=== PATIENT | male | born 1970 | race Hispanic/Latino ===

== ENCOUNTER 2017-06-15 12:34 | Inpatient (IN) | payer MEDICAID ==
[~2017-06-15] VITALS: Ht 175.3 cm; Wt 90.3 kg
[2017-06-15 13:30] LABS: BASOPHILS % 0.7 % (0.0-1.0); EOSINOPHILS # (AUTO) 0.3 (0.0-0.4); EOSINOPHILS % 7.6 % (0.0-6.0); HEMATOCRIT 37.4 % (38.2-49.6); HEMOGLOBIN 13.1 g/dL (14.0-18.0); LYMPHOCYTES # (AUTO) 0.8 (1.0-3.2); MEAN CORPUSCULAR HEMOGLOBIN 33.2 pg (28-32); MEAN CORPUSCULAR VOLUME 94.9 fL (81-99); MONOCYTES # (AUTO) 0.4 (0.2-0.8); MONOCYTES % 9.5 % (4.4-11.3); NEUTROPHILS # (AUTO) 2.6 (2.1-6.9); NEUTROPHILS % 62.7 % (38.7-80.0); PLATELET COUNT 50 x10e3/uL (140-360); RED BLOOD COUNT 3.94 x10e6/uL (4.3-5.7); RED CELL DISTRIBUTION WIDTH 14.6 % (11.7-14.4)
[2017-06-15 13:54] LABS: ALANINE AMINOTRANSFERASE 18 IU/L (0-55); ALBUMIN 2.1 g/dL (3.5-5.0); ALBUMIN/GLOBULIN RATIO 0.3 (0.8-2.0); ALKALINE PHOSPHATASE 71 IU/L (40-150); AMYLASE 88 U/L (25-125); BLOOD UREA NITROGEN 12 mg/dL (7-26); BUN/CREATININE RATIO 12 (6-25); CALCIUM 8.4 mg/dL (8.4-10.2); CARBON DIOXIDE 29 mmol/L (22-29); CHLORIDE 98 mmol/L (98-107); CREATININE, SERUM 0.98 mg/dL (0.72-1.25); EST GLOMERULAR FILTRATION RATE > 60 ML/MIN (60-); GLUCOSE 121 mg/dL (74-118); LIPASE 51 U/L (8-78); SODIUM 134 mmol/L (136-145)
[2017-06-15] MEDS ORDERED: DONNATAL/LIDOCAINE/MAALOX 30 ML SUSP PO ONE ×3 (14:45→23:30)
[2017-06-15] MEDS ORDERED: ONDANSETRON HCL INJ 2 MG/ML VIAL IV STA (14:48)
--- NOTE | 2017-06-15 14:50 | Diagnostic Imaging Report ---
PROCEDURE: CT ABDOMEN AND PELVIS WITH CONTRAST TECHNIQUE: The abdomen and pelvis were scanned utilizing a multidetector helical scanner from the diaphragm to the lesser trochanter after the IV administration of 100 cc of Isovue 370 and the oral administration of Gastroview. Coronal and sagittal multiplanar reformations were obtained. DLP: 697.6 mGy-cm COMPARISON: None. INDICATIONS: ABDOMINAL PAIN, FEVER FINDINGS: LOWER THORAX: Normal. HEPATOBILIARY: Nodular contour. No focal hepatic lesions with limitations of single phase exam. No biliary ductal dilatation. SPLEEN: Mildly enlarged measuring 13.6 cm in length. PANCREAS: No focal masses or ductal dilatation. ADRENALS: No adrenal nodules. KIDNEYS/URETERS: No hydronephrosis or solid mass lesions. Punctate nonobstructing calculi in the right superior and inferior renal poles. PELVIC ORGANS/BLADDER: Unremarkable. PERITONEUM / RETROPERITONEUM: No free air. Large amount of ascites. LYMPH NODES: No lymphadenopathy. VESSELS: Unremarkable. GI TRACT: No distention or wall thickening. BONES AND SOFT TISSUES: Unremarkable. IMPRESSION: 1. Nodular liver contour compatible with cirrhosis. 2. Large volume ascites. Given fever, consider correlation for SBP. 3. Splenomegaly likely related to portal hypertension. Dictated by: Deandre Gan M.D. on 06/15/2017 at 14:50 Electronically approved by: Deandre Gan M.D. on 06/15/2017 at 14:50
[2017-06-15] MEDS ORDERED: SODIUM CHLORIDE 0.9% 1000ML 1,000 ML IV SCH (15:00)
[2017-06-15] MEDS ORDERED: IOPAMIDOL 370 MG/ML 200 ML INFUS..BTL INJ ONE ×2 (15:01→20:38)
[2017-06-15] MEDS ORDERED: SODIUM CHLORIDE 0.9% 50ML 50 ML ONE ×2 (15:01→20:38)
[2017-06-15] MEDS ORDERED: MORPHINE SULFATE 2 MG/ML SYR IV STA (15:07)
[2017-06-15] MEDS ORDERED: PROMETHAZINE HCL (IM) 25 MG/ML VIAL IV PRN (15:30)
[2017-06-15 15:33] LABS: INR 1.53; PROTHROMBIN TIME 17.3 seconds (11.9-14.5)
[2017-06-15] MEDS ORDERED: PROMETHAZINE 12.5MG/ NACL 0.9% 50 ML IV PRN (15:45)
[2017-06-15] MEDS ORDERED: HYDROMORPHONE 1MG/1ML INJ IV STA (15:47)
[2017-06-15 15:52] LABS: CLARITY,URINE CLOUDY (CLEAR); COLOR,URINE ORANGE (YELLOW); LEUKOCYTE ESTERASE ,URINE NEGATIVE (NEGATIVE)
[2017-06-15 15:53] LABS: BILIRUBIN,URINE 2+ (NEGATIVE); KETONES,URINE TRACE (NEGATIVE); NITRITE,URINE NEGATIVE (NEGATIVE); PROTEIN,URINE DIPSTICK 1+ (NEGATIVE); URINE UROBILINOGEN 8 mg/dL (0.2 - 1)
--- OUTSIDE RECORDS SUMMARY | 2017-06-15 15:56 | XMS REPORT ---
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 Allergies, Adverse Reactions, Alerts This patient has no known allergies or adverse reactions. Medications This patient has no known medications. Results Test Description Test Time Test Comments Text Results Atomic Results Result Comments CT ABDOMEN/PELVIS W [place] [address] Patient Name: JOCELIN CORREA MR #: [id number] : 1970 Age/Sex: 47/M Req #: [id number] Adm Physician: Ordered by: EZ MANDUJANO MD Report #: [id number] Location: ER Room/Bed: Procedure: [id number] CT/CT ABDOMEN/PELVIS W Exam Date: Exam Time: REPORT STATUS: Signed PROCEDURE: CT ABDOMEN AND PELVIS WITH CONTRAST TECHNIQUE: The abdomen and pelvis were scanned utilizing a multidetector helical scanner from the diaphragm to the lesser trochanter after the IV administration of 100 cc of Isovue 370 and the oral administration of Gastroview. Coronal and sagittal multiplanar reformations were obtained. DLP: 697.6 mGy-cm COMPARISON: None. INDICATIONS: ABDOMINAL PAIN, FEVER FINDINGS: LOWER THORAX: Normal. HEPATOBILIARY: Nodular contour. No focal hepatic lesions with limitations of single phase exam. No biliary ductal dilatation. SPLEEN: Mildly enlarged measuring 13.6 cm in length. PANCREAS: No focal masses or ductal dilatation. ADRENALS: No adrenal nodules. KIDNEYS/URETERS: No hydronephrosis or solid mass lesions. Punctate nonobstructing calculi in the right superior and inferior renal poles. PELVIC ORGANS/BLADDER: Unremarkable. PERITONEUM / RETROPERITONEUM: No free air. Large amount of ascites. LYMPH NODES: No lymphadenopathy. VESSELS: Unremarkable. GI TRACT: No distention or wall thickening. BONES AND SOFT TISSUES: Unremarkable. IMPRESSION: 1. Nodular liver contour compatible with cirrhosis. 2. Large volume ascites. Given fever, consider correlation for SBP. 3. Splenomegaly likely related to portal hypertension. Dictated by: Deandre Davis M.D. on 06/15/2017 at 14:50 Electronically approved by: Deandre Davis M.D. on 06/15/2017 at 14:50 Dictated By: DEANDRE DAVIS MD 1450 Transcribed By : MARCO on 06/15/17 1450 COPY TO: EZ MANDUJANO MD
[2017-06-15] MEDS: PIPER-TAZ 3.375 GM 50 ML IV SCH (16:05)
[2017-06-15] MEDS ORDERED: LASIX40 MG PO (16:40)
[2017-06-15] MEDS ORDERED: SPIRONOLACTONE25 MG PO (16:40)
--- NOTE | 2017-06-15 17:09 | Diagnostic Imaging Report ---
PROCEDURE:US GUIDED PARACENTESIS COMPARISON:None. INDICATIONS:Cirrhosis, Ascites FINDINGS: After informed consent was obtained, focused abdominal ultrasound identified a safe entry route into the free ascitic fluid in the right lower quadrant of the abdomen. The overlying skin was prepped and draped in sterile fashion. Lidocaine 1% was used for local anesthesia. Under ultrasound guidance, an 18 gauge needle was advanced into the ascitic fluid. 30 cc of clear straw colored fluid was aspirated. The needle was removed. There was <1cc blood loss and no complications. Samples were sent to the laboratory for analysis. CONCLUSION: Uncomplicated ultrasound-guided diagnostic paracentesis with removal of 30 cc of clear straw colored fluid. Dictated by: Deandre Gan M.D. on 06/15/2017 at 17:10 Electronically approved by: Deandre Gan M.D. on 06/15/2017 at 17:10
[2017-06-15] MEDS: SODIUM CHLORIDE 0.9% 1000ML 1,000 ML IV SCH ×2 (17:18→23:20)
[2017-06-15 17:32] LABS: BODY FLUID APPEARANCE CLOUDY; BODY FLUID COLOR YELLOW; BODY FLUID TYPE PERITONEAL
[2017-06-15 17:33] LABS: RBC,BODY FLUID 1519 cells/uL; WBC,BODY FLUID 163 cells/uL
[2017-06-15 18:21] LABS: LYMPHOCYTES,BODY FLUID 15 %; MONO/MACROPHG,BODY FLUID 64 %; OTHER CELLS,BODY FLUID 10 %
[2017-06-15 18:22] LABS: NEUTROPHILS,BODY FLUID 11 %
[2017-06-15 18:37] VITALS: BP 130/85
[2017-06-15 20:00] VITALS: BP 112/74
[2017-06-15] MEDS: ONDANSETRON HCL INJ 2 MG/ML VIAL IV PRN (20:57)
[2017-06-15] MEDS: MORPHINE SULFATE 2 MG/ML SYR IV PRN (20:57)
[2017-06-15] MEDS ORDERED: PIPER-TAZ 3.375 GM 3.375 GM/100 ML BAG IV SCH (22:00)
[2017-06-15] MEDS ORDERED: MULTIVITAMINS- 12 INJECTION 10 ML, FOLIC ACID MDV 5 MG, THIAMINE HCL INJ 100 MG in SODI... IV SCH (23:30)
[2017-06-15] MEDS ORDERED: PANTOPRAZOLE 40 MG 10ML VIAL IV STA (23:40)
[2017-06-15] MEDS ORDERED: MULTIVITAMINS- 12 INJECTION 10 ML in SODIUM CHLORIDE 0.9% 1000ML 1,000 ML IV SCH (23:45)
[2017-06-15] MEDS ORDERED: FOLIC ACID 5 MG/ML VIAL IV SCH (23:45)
[2017-06-15] MEDS ORDERED: THIAMINE HCL INJ 100 MG/ML 2ML VIAL IV SCH (23:45)
[2017-06-15] MEDS ORDERED: SODIUM CHLORIDE 0.9% 1000ML 1,000 ML IV ONE (23:45)
[2017-06-16] VITALS: BP 123/72
[2017-06-16] MEDS ORDERED: FUROSEMIDE 40 MG TAB PO ONE
[2017-06-16] MEDS ORDERED: BELLADONNA ALK/PHENOBARBITAL 5 ML UDC ONE (00:13)
[2017-06-16] MEDS ORDERED: LIDOCAINE VISC 2% SOLN 15 ML UDC ONE (00:13)
[2017-06-16] MEDS ORDERED: MAGNESIUM/ALUMINUM/SIMETHICONE 30 ML UDC ONE (00:14)
[2017-06-16] MEDS: MULTIVITAMINS- 12 INJECTION 10 ML, FOLIC ACID MDV 1 MG, THIAMINE HCL INJ 100 MG in SODI... IV SCH (00:58)
[2017-06-16] MEDS: PIPER-TAZ 3.375 GM 50 ML IV SCH ×3 (01:30→16:07)
[2017-06-16] MEDS: ONDANSETRON HCL INJ 2 MG/ML VIAL IV PRN ×3 (01:30→21:28)
[2017-06-16 04:00] VITALS: BP 115/71
[2017-06-16] MEDS: MORPHINE SULFATE 2 MG/ML SYR IV PRN ×2 (05:20→21:29)
[2017-06-16 06:47] LABS: BASOPHILS % 0.7 % (0.0-1.0); EOSINOPHILS # (AUTO) 0.4 (0.0-0.4); EOSINOPHILS % 8.7 % (0.0-6.0); HEMATOCRIT 33.8 % (38.2-49.6); HEMOGLOBIN 11.5 g/dL (14.0-18.0); LYMPHOCYTES # (AUTO) 0.9 (1.0-3.2); LYMPHOCYTES % 21.7 % (18.0-39.1); MEAN CORPUSCULAR HEMOGLOBIN 33.2 pg (28-32); MEAN CORPUSCULAR VOLUME 97.7 fL (81-99); MONOCYTES # (AUTO) 0.4 (0.2-0.8); MONOCYTES % 10.1 % (4.4-11.3); NEUTROPHILS # (AUTO) 2.4 (2.1-6.9); NEUTROPHILS % 58.6 % (38.7-80.0); RED BLOOD COUNT 3.46 x10e6/uL (4.3-5.7); RED CELL DISTRIBUTION WIDTH 15.1 % (11.7-14.4)
[2017-06-16 07:05] LABS: PLATELET COUNT 47 x10e3/uL (140-360)
[2017-06-16 07:16] LABS: ALANINE AMINOTRANSFERASE 20 IU/L (0-55); ALBUMIN 1.9 g/dL (3.5-5.0); ALBUMIN/GLOBULIN RATIO 0.3 (0.8-2.0); ALKALINE PHOSPHATASE 61 IU/L (40-150); AMYLASE 65 U/L (25-125); ANION GAP 8.2 mmol/L (8-16); BLOOD UREA NITROGEN 12 mg/dL (7-26); BUN/CREATININE RATIO 12 (6-25); CALCIUM 7.7 mg/dL (8.4-10.2); CARBON DIOXIDE 26 mmol/L (22-29); CHLORIDE 98 mmol/L (98-107); EST GLOMERULAR FILTRATION RATE > 60 ML/MIN (60-); GLUCOSE 98 mg/dL (74-118); LIPASE 16 U/L (8-78); POTASSIUM 3.2 mmol/L (3.5-5.1); SODIUM 129 mmol/L (136-145)
[2017-06-16 07:36] LABS: FERRITIN 220.6 ng/mL (21.81-274.66)
[2017-06-16 07:46] LABS: FOLATE 10.3 ng/mL (7.0-15.4)
[2017-06-16 08:00] VITALS: BP 118/64
[2017-06-16 08:10] VITALS: BP 118/64
[2017-06-16] MEDS ORDERED: SODIUM CHLORIDE 0.9% 250ML 250 ML ONE (08:45)
[2017-06-16] MEDS: SPIRONOLACTONE 25 MG TAB PO SCH (08:49)
[2017-06-16] MEDS ORDERED: POTASSIUM CHLORIDE 20 MEQ TAB CR PO STA (09:19)
[2017-06-16 09:30] LABS: EOSINOPHILS % (MANUAL) 8 % (0-7); LYMPHOCYTES % (MANUAL) 14 % (19-48); METAMYELOCYTES % (MANUAL) 2 % (0-0); MONOCYTES % (MANUAL) 2 % (3.4-9.0); NEUTROPHILS % (MANUAL) 73 % (40-74); PLATELET ESTIMATE SLIGHTLY DECREASED; PLATELET MORPHOLOGY COMMENT NORMAL
[2017-06-16 09:31] LABS: RBC MORPHOLOGY COMMENT NORMAL
[2017-06-16 11:59] VITALS: BP 97/54
[2017-06-16] MEDS: PANTOPRAZOLE 40 MG 10ML VIAL IV SCH ×3 (12:35→23:51)
[2017-06-16] MEDS: SODIUM CHLORIDE 0.9% 1000ML 1,000 ML IV SCH (16:07)
[2017-06-16 20:04] VITALS: BP 115/56
[2017-06-17] VITALS (9 sets, daily range): BP systolic 107–124; BP diastolic 61–70
[2017-06-17] MEDS: SODIUM CHLORIDE 0.9% 1000ML 1,000 ML IV SCH
[2017-06-17] MEDS: MULTIVITAMINS- 12 INJECTION 10 ML, FOLIC ACID MDV 1 MG, THIAMINE HCL INJ 100 MG in SODI... IV SCH (00:50)
[2017-06-17] MEDS: ONDANSETRON HCL INJ 2 MG/ML VIAL IV PRN ×4 (04:51→21:28)
[2017-06-17] MEDS: MORPHINE SULFATE 2 MG/ML SYR IV PRN ×4 (05:02→21:30)
[2017-06-17] MEDS ORDERED: DONNATAL/LIDOCAINE/MAALOX 30 ML SUSP PO STA (05:29)
[2017-06-17] MEDS ORDERED: BELLADONNA ALK/PHENOBARBITAL 5 ML UDC PO ONE (05:53)
[2017-06-17] MEDS ORDERED: MAGNESIUM/ALUMINUM/SIMETHICONE 30 ML UDC PO ONE (05:54)
[2017-06-17] MEDS ORDERED: LIDOCAINE VISC 2% SOLN 100ML BLT PO ONE (05:54)
[2017-06-17] MEDS ORDERED: DONNATAL/LIDOCAINE/MAALOX 30 ML SUSP PO ONE (05:55)
[2017-06-17] MEDS: MULTIVITAMINS- 12 INJECTION 10 ML, FOLIC ACID MDV 5 MG, THIAMINE HCL INJ 100 MG in SODI... IV SCH ×2 (06:00→16:59)
[2017-06-17] MEDS: PIPER-TAZ 3.375 GM 50 ML IV SCH ×3 (07:57→16:41)
[2017-06-17] MEDS: SPIRONOLACTONE 25 MG TAB PO SCH (08:57)
[2017-06-17] MEDS ORDERED: TYLENOL WITH C1 EACH PO (11:40)
[2017-06-17] MEDS: PANTOPRAZOLE 40 MG 10ML VIAL IV SCH (12:18)
[2017-06-18] MEDS: PANTOPRAZOLE 40 MG 10ML VIAL IV SCH ×2 (00:14→12:35)
[2017-06-18 01:02] VITALS: BP 100/63
[2017-06-18] MEDS: ONDANSETRON HCL INJ 2 MG/ML VIAL IV PRN ×4 (03:28→21:11)
[2017-06-18] MEDS: MORPHINE SULFATE 2 MG/ML SYR IV PRN ×4 (03:30→21:11)
[2017-06-18] MEDS: MULTIVITAMINS- 12 INJECTION 10 ML, FOLIC ACID MDV 5 MG, THIAMINE HCL INJ 100 MG in SODI... IV SCH ×2 (05:28→18:03)
[2017-06-18 05:39] VITALS: BP 104/55
[2017-06-18 07:56] LABS: BASOPHILS % 0.7 % (0.0-1.0); EOSINOPHILS # (AUTO) 0.2 (0.0-0.4); EOSINOPHILS % 7.5 % (0.0-6.0); HEMATOCRIT 27.1 % (38.2-49.6); HEMOGLOBIN 9.3 g/dL (14.0-18.0); LYMPHOCYTES % 33.1 % (18.0-39.1); MEAN CORPUSCULAR HEMOGLOBIN 33.1 pg (28-32); MEAN CORPUSCULAR HGB CONC 34.3 g/dL (31-35); MEAN CORPUSCULAR VOLUME 96.4 fL (81-99); MONOCYTES # (AUTO) 0.4 (0.2-0.8); NEUTROPHILS # (AUTO) 1.3 (2.1-6.9); RED BLOOD COUNT 2.81 x10e6/uL (4.3-5.7); RED CELL DISTRIBUTION WIDTH 14.8 % (11.7-14.4)
[2017-06-18 08:04] LABS: PLATELET COUNT 37 x10e3/uL (140-360)
[2017-06-18 08:05] VITALS: BP 113/65
[2017-06-18 09:06] LABS: ALANINE AMINOTRANSFERASE 15 IU/L (0-55); ALBUMIN 1.7 g/dL (3.5-5.0); ALBUMIN/GLOBULIN RATIO 0.4 (0.8-2.0); ALKALINE PHOSPHATASE 51 IU/L (40-150); ANION GAP 7.7 mmol/L (8-16); BLOOD UREA NITROGEN 9 mg/dL (7-26); BUN/CREATININE RATIO 11 (6-25); CALCIUM 7.3 mg/dL (8.4-10.2); CARBON DIOXIDE 24 mmol/L (22-29); CHLORIDE 102 mmol/L (98-107); CREATININE, SERUM 0.85 mg/dL (0.72-1.25); EST GLOMERULAR FILTRATION RATE > 60 ML/MIN (60-); GLUCOSE 112 mg/dL (74-118); POTASSIUM 3.7 mmol/L (3.5-5.1); SODIUM 130 mmol/L (136-145)
[2017-06-18] MEDS: SPIRONOLACTONE 25 MG TAB PO SCH (09:15)
[2017-06-18 12:17] VITALS: BP 119/65
[2017-06-18 16:00] VITALS: BP 122/71
[2017-06-18 20:00] VITALS: BP 117/64
[2017-06-18] MEDS: FUROSEMIDE 40 MG TAB PO SCH (21:11)
[2017-06-19] VITALS (8 sets, daily range): BP systolic 92–125; BP diastolic 53–80
[2017-06-19] MEDS: PANTOPRAZOLE 40 MG 10ML VIAL IV SCH ×3 (00:16→23:37)
[2017-06-19] MEDS: ONDANSETRON HCL INJ 2 MG/ML VIAL IV PRN (03:45)
[2017-06-19] MEDS: MORPHINE SULFATE 2 MG/ML SYR IV PRN ×4 (03:49→22:24)
[2017-06-19] MEDS: FUROSEMIDE 40 MG TAB PO SCH ×4 (05:34→18:00)
[2017-06-19] MEDS ORDERED: FOLIC ACID IV SCH (06:00)
[2017-06-19] MEDS ORDERED: [UNRECOGNIZED DRUG - OTHER] IV SCH (06:00)
[2017-06-19] MEDS ORDERED: MULTIVITAMINS IV SCH (06:00)
[2017-06-19] MEDS ORDERED: THIAMINE HCL IV SCH (06:00)
[2017-06-19 07:28] LABS: BASOPHILS % 0.4 % (0.0-1.0); EOSINOPHILS # (AUTO) 0.2 (0.0-0.4); EOSINOPHILS % 7.9 % (0.0-6.0); HEMATOCRIT 27.3 % (38.2-49.6); HEMOGLOBIN 9.3 g/dL (14.0-18.0); LYMPHOCYTES # (AUTO) 0.7 (1.0-3.2); MEAN CORPUSCULAR HEMOGLOBIN 33.5 pg (28-32); MEAN CORPUSCULAR HGB CONC 34.1 g/dL (31-35); MEAN CORPUSCULAR VOLUME 98.2 fL (81-99); MONOCYTES # (AUTO) 0.4 (0.2-0.8); MONOCYTES % 16.3 % (4.4-11.3); NEUTROPHILS # (AUTO) 1.2 (2.1-6.9); RED BLOOD COUNT 2.78 x10e6/uL (4.3-5.7); RED CELL DISTRIBUTION WIDTH 15.1 % (11.7-14.4)
[2017-06-19 07:48] LABS: PLATELET COUNT 46 x10e3/uL (140-360)
[2017-06-19 08:00] LABS: ALANINE AMINOTRANSFERASE 17 IU/L (0-55); ALBUMIN 1.6 g/dL (3.5-5.0); ALBUMIN/GLOBULIN RATIO 0.3 (0.8-2.0); ALKALINE PHOSPHATASE 47 IU/L (40-150); ANION GAP 5.5 mmol/L (8-16); BLOOD UREA NITROGEN 8 mg/dL (7-26); BUN/CREATININE RATIO 9 (6-25); CALCIUM 7.3 mg/dL (8.4-10.2); CARBON DIOXIDE 27 mmol/L (22-29); CHLORIDE 102 mmol/L (98-107); CREATININE, SERUM 0.85 mg/dL (0.72-1.25); EST GLOMERULAR FILTRATION RATE > 60 ML/MIN (60-); GLUCOSE 121 mg/dL (74-118); POTASSIUM 3.5 mmol/L (3.5-5.1); SODIUM 131 mmol/L (136-145)
[2017-06-19 08:29] LABS: INR 1.66; PROTHROMBIN TIME 18.4 seconds (11.9-14.5)
[2017-06-19 08:30] LABS: PARTIAL THROMBOPLASTIN TIME 37.5 seconds (23.8-35.5)
[2017-06-19] MEDS ORDERED: PHYTONADIONE 5 MG TAB PO SCH (09:00)
[2017-06-19] MEDS: SPIRONOLACTONE 25 MG TAB PO SCH (09:55)
[2017-06-19 10:16] LABS: HYPOCHROMASIA MODERATE; PLATELET ESTIMATE SLIGHTLY DECREASED; PLATELET MORPHOLOGY COMMENT FEW GIANT; POIKILOCYTOSIS SLIGHT
[2017-06-19 10:17] LABS: ANISOCYTOSIS SLIG
[2017-06-19 10:18] LABS: RBC MORPHOLOGY COMMENT NORMAL
[2017-06-19] MEDS: PHYTONADIONE 10 MG/ML AMP PO SCH (11:51)
[2017-06-20] VITALS (7 sets, daily range): BP systolic 90–119; BP diastolic 50–66
[2017-06-20] MEDS ORDERED: FUROSEMIDE INJ 10 MG/ML 4 ML VIAL IV ONE ×2 (02:00→06:00)
[2017-06-20] MEDS: MORPHINE SULFATE 2 MG/ML SYR IV PRN ×2 (05:59→12:18)
[2017-06-20] MEDS: PHYTONADIONE 10 MG/ML AMP PO SCH (10:08)
[2017-06-20] MEDS: SPIRONOLACTONE 25 MG TAB PO SCH (10:08)
--- NOTE | 2017-06-20 11:20 | Consultation ---
DATE OF CONSULTATION: June 19, 2017 CONSULTATION TO: Dr. Hopper Mr. Austin is a 47-year-old male who has been referred to me for evaluation of pancytopenia. The patient had presented with abdominal pain and swelling of the abdomen. Subsequently he was admitted for further evaluation and treatment. HISTORY OF PAST ILLNESSES: Noncontributory. SOCIAL HISTORY: History of excessive alcohol intake since age 13. REVIEW OF SYSTEMS HEENT: Normal. CARDIAC: Normal. RESPIRATORY: Normal. GI: Cirrhotic liver with ascites. : Normal. MUSCULOSKELETAL: Normal. SKIN AND BREASTS: Normal. NEUROENDOCRINE: Essentially normal. MEDICATIONS: At this time consist of promethazine, thiamine, ondansetron, Protonix, Aldactone, morphine, Lasix, vitamin K. PHYSICAL EXAMINATION GENERAL: A rather moderately built male with multiple tattoos. No palpable adenopathy. HEART: Within normal limits. LUNGS: Clear. ABDOMEN: Obese. Ascites felt. RECTAL: Exam deferred. CENTRAL NERVOUS SYSTEM: Essentially normal. EXTREMITIES: Again, multiple tattoos revealed. LABS: The hepatitis profile has been done, however, not available at this time for review. Hemoglobin of 9.3, hematocrit 27.3, normal MCV of 98.2, MCHC of 34.1, RDW of 15.1, white count 2520, platelets of 46,000. Retic response is 2.6%. Coagulation profile is essentially abnormal with a slightly high INR of 1.66. IMAGING: Consists of a CAT scan of the abdomen, which shows the patient to have a nodular liver contour, large-volume ascites, splenomegaly. IMPRESSION 1. Anemia. 2. Neutropenia. 3. Thrombocytopenia. 4. High liver function tests. 5. High protein of 8.4. 6. Hypoalbuminemia of 2.1. 7. 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 8. Cirrhosis of liver. 9. Ascites. 10. Splenomegaly. 11. Portal hypertension. 12. Hypersplenism. PLAN, COMMENTS AND SUGGESTIONS: Suggest Lasix and Aldactone. Ammonia level. Social service consult for him to obtain a [place] card so that he could be followed by senior living sales counselor and wooden shade hardware installer at [facility] as he has no insurance. Thank you very much for allowing me to participate in the management of this patient during this hospitalization. Job#: [id number] cc:ROME HOPPER MD
--- NOTE | 2017-06-20 11:36 | Diagnostic Imaging Report ---
EXAM: Right Upper Quadrant Ultrasound INDICATION: Abdominal pain. \S\CIRRHOSIS OF LIVER \S\[id number] \S\1024 \S\Y COMPARISON: CT dated 06/15/2017 TECHNIQUE: Transverse and longitudinal images of the right upper abdomen were obtained. FINDINGS: Liver: Size: 10 cm in the right midclavicular line, normal Appearance: Normal echogenicity, nodular contour Mass: No focal masses Gallbladder: Stones/Sludge: None Wall: 0.7 cm Appearance: No pericholecystic fluid or hydrops. Sonographic Thomas's Sign: Negative Bile Ducts: Intrahepatic Ducts: No dilatation Extrahepatic Ducts: Common bile duct measures 0.3 cm, no dilatation Pancreas: Limited visualized pancreas is unremarkable. Right Kidney: Size: 12.5 cm Echogenicity: Mildly increased Parenchymal thickness: Normal Collecting system: No hydronephrosis Stones: None Cyst/Mass: None Vessels: Aorta: Not well visualized. Inferior Vena Cava: Visualized portions are normal Main Portal Vein: 1.1 cm, normal size with hepatopetal flow. Free Fluid: Moderate volume abdominal ascites. IMPRESSION: 1. Cirrhotic liver morphology. No focal mass. 2. Gallbladder wall thickening which is nonspecific in the setting of cirrhosis/ascites. No cholelithiasis. 3. Moderate volume abdominal ascites. 4. Mildly increased right renal cortical echogenicity, suggestive of medical renal disease. Signed by: Dr. Korey Velarde MD on 06/20/2017 11:33 AM
[2017-06-20] MEDS: PANTOPRAZOLE 40 MG 10ML VIAL IV SCH (12:18)
== END 2017-06-20 17:14 | disposition home or self-care (01) | DRG 854 ==
LOC: ER 12:47 → EDBD 12:47 → ERHOLD 15:53 → MED/SURG 17:24
PROVIDERS: ADMIT Internal Medicine; ATTEND Internal Medicine
PROC: 0W9G3ZX Drainage of Peritoneal Cavity, Percutaneous Approach, Diagnostic (ICD-10-PCS; principal; 2017-06-15)
DX: A41.9 Sepsis, unspecified organism (principal); D61.818 Other pancytopenia; D69.3 Immune thrombocytopenic purpura; D70.9 Neutropenia, unspecified; K70.31 Alcoholic cirrhosis of liver with ascites; E88.09 Other disorders of plasma-protein metabolism, not elsewhere classified; R16.1 Splenomegaly, not elsewhere classified; K70.11 Alcoholic hepatitis with ascites; F10.20 Alcohol dependence, uncomplicated; R77.1 Abnormality of globulin; D73.1 Hypersplenism
CPT/HCPCS: 36415; 49083; 74177; 74470; 76705; 80053; 80076; 81001; 82105; 82140; 82150; 82270; 82607; 82728; 82746; 83540; 83690; 84132; 84466; 85025; 85045; 85610; 85730; 87040; 87070; 87086; 87205; 88112; 88305; 89051; 96367; 99284; J1170; J1940; J2270; J2405; J2543; J3411; J3430; J7030; J7050; Q9967

== ENCOUNTER 2019-08-14 06:12 | Inpatient (IN) | payer MEDICARE, OTHER ==
[~2019-08-14] VITALS: Ht 175.3 cm; Wt 94.1 kg
[~2019-08-14 06:12] MED LIST: LASIX40 MG PO; SPIRONOLACTONE25 MG PO; TYLENOL WITH C1 EACH PO
--- OUTSIDE RECORDS SUMMARY | 2019-08-14 06:16 | XMS REPORT ---
Author Author Admin, Raymundo Barry Organization Unknown Address Unknown Phone Unavailable PROBLEMS Condition Status Date Provider Notes Chronic pain active Vane Ana Laura Nausea active Vane Ana Laura Hepatitis C, chronic active Vane Ana Laura Liver cirrhosis active Vane Ana Laura ENCOUNTERS Date Type Provider Location Encounter Diagn osis - Ambulatory Encounter LDC Care Coor dination Desktop Keli Phillips [facility] Contact Center UNK - Ambulatory Encounter Vane Ana Laura [place] Ana Laura [facility] UNK - Ambulatory Encounter Vane Ivano va Vane Ana Laura Deborath Carpio [facility] Liver cirrhosisHepatitis C, chronicNauseaChronic pain VITAL SIGNS No Information Available Allergies No Known Allergy Information REASON FOR REFERRAL No Information Available RESULTS No Information Available HISTORY OF IMMUNIZATIONS No Information Available HISTORY OF MEDICATION USE Medication Instructions Dates Provider Comments ZOFRAN 4 MG ORAL TABLET take 1 tablet 3 times daily for nausea p rn Vane Ana Laura SOCIAL HISTORY Date Observation Value Provider time of call 02/27/2019 10:07 AM Keli Phillips " is there any chance that you could be ? No Mir Carpio " Occupation #1 Disabled [employer] " patient considered to be homeless No Mir Carpio " drug use, illicit Never Mir Aldridge dos " alcohol use Previously [employer] " smoking status current every day smoker Deborat h Carpio " passive cigarette smoke exposure No Debrich Carpio FUNCTIONAL STATUS No Information Available MENTAL STATUS Date Observation Value Provider assessment of judgment and insight E&M intact Vane Ana Laura " assessment of mood and affect E&M no depression, anxiety, or agitation Vane Ana Laura " Generalized Anxiety Disorder Questionnaire - Que stion 2 0 Deborath Carpio " Generalized Anxiety Disorder Questionnaire - Que stion 1 0 Deborath Carpio MEDICAL EQUIPMENT No Information Available FAMILY HISTORY No Information Available INSURANCE PROVIDERS No Information Available ADVANCE DIRECTIVES No Information Available TREATMENT PLAN Date Name New Patient Detailed - 68791 HISTORY OF PROCEDURES No Information Available GOALS No Information Available HEALTH CONCERNS No Information Available
--- OUTSIDE RECORDS SUMMARY | 2019-08-14 06:16 | XMS REPORT | Continuity of Care Document ---
Author Author [facility] t Organization [facility] Address [address] [place] [address] Phone Unavailable Care Team Providers Care Family Advocate Name Role Phone NO, PCP PCP Unavailable Puneet Banks Attphys Nabeel Valero Attphys Ab, U Varinder Attphys Eli Delgado Attphys Casi Justice Attphys ROME HOPPER Attphys Unavailable Nabeel Valero Admphys Tamika Guzman Admphys R[place] HOPPER Admphys Unavailable Payers Payer Name Policy Type Policy Number Effective Date Expiration Date S ource Problems Condition Name Condition Details Condition Category Status Onset Date Resolution Date Last Treatment Date Treating Clinician Comments Source ABDOMINAL PAIN ABDO YOLIS PAIN Active 02/26/2019 [facility] Active 2019-02-26 00:00:00 2019-02-26 16:11:00 [facility] ABD PAIN ABD PAIN Active 08/24/2018 [facility] Active 2018-08-24 00:00:00 2018-08-24 21:51:00 [facility] BLOODY STOOL/STOMACH PAIN BLOO DY STOOL/STOMACH PAIN Active 06/01/2018 [facility] Active 2018-06-01 00:00: 00 2018-06-01 10:32:00 [facility] GIB, LIVER CIRRHOSIS, ABD PAIN, PORTAL V GIB, LIVER CIRRHOSIS, ABD PAIN, PORTAL V Active 06/01/2018 [facility] Diagnosis Active 2018-06-01 00:00:00 2018-06-06 16:57:00 [facility] HEADACHE HEAD ACHE Active 04/18/2018 [facility] Active 2018-04-18 00:00:00 2019-07-01 13:22:00 [facility] OTHER OTHE R Active 09/16/2017 [facility] Active 2017-09-16 00:00:00 2017-11-16 10:48:00 [facility] Abdominal pain Abdominal pain Problem Active [facility] Alcoholic cirrhosis of liver with ascites Alcoholic ci rrhosis of liver with ascites Problem Active [facility] Fever Fever Problem Active [facility] Headache Head ache 11/05/2018 [facility] Problem 2018-11-05 16:44:23 [facility] Liver disease, unspecified Tonya er disease, unspecified 11/05/2018 [facility] 2018-11-05 16:44:2 3 [facility] Chest pain, unspecified [place] t pain, unspecified 11/05/2018 [facility] 2018-11-05 16:44:23 [facility] GASTROINTESTINAL HEMORRHAGE, UNSPECIFIED GASTROINTESTINAL HEMORRHAGE, UNSPECIFIED Active [facility] Diagnosis Active 2018-06-06 16:57:00 Memor melyssa Dos [facility] UNSPECIFIED CIRRHOSIS OF LIVER UNSPECIFIED CIRRHOSIS OF LIVER Active [facility] Diagnosis Active 201 11-13-26 16:57:00 [facility] UNSPECIFIED ABDOMINAL PAIN UNS PECIFIED ABDOMINAL PAIN Active [facility] Diagnosis Active 2018-06-06 16:57:0 0 [facility] Encounter for examination and observation following ot her accident Encounter for examination and observation following other accident 04/24/2018 11/05/2018 [facility] 2018-04-24 05:08:12 2018 16:44:23 2018-11-05 16:44:23 [facility] Unspecified abdominal pain Uns pecified abdominal pain 09/16/2017 09/19/2017 [place] Problem 2017-09-16 05:00 :00 2017-09-19 01:50:07 2017-09-19 01:50:[address] [facility] Allergies, Adverse Reactions, Alerts Allergy Name Allergy Type Status Severity Reaction(s) Onset Date Inacti ve Date Treating Clinician Comments Source No Known Allergies DA Active U 2019-01-15 00:00:00 [facility] No Known Allergies DA Active U 2018-05-05 00:00:00 [facility] No Known Allergies DA Active U 2018-04-09 00:00:00 [facility] No Known Allergies DA Active U 2017-12-18 00:00:00 [facility] No Known Allergies DA Active U 2017-08-03 00:00:00 [facility] No Known Allergies DA Active U 2017-06-03 00:00:00 [facility] No Known Medication Allergies No Known Medication Allergies Active [facility] Social History Social Habit Start Date Stop Date Quantity Comments Source Social History 2018-06-02 00:41:01 2018-06-02 00:41:01 [facility] Medications Ordered Medication Name Filled Medication Name Start Date Stop Da te Current Medication? Ordering Clinician Indication Dosage Frequency Signature (SIG) Comments Components Source Saline Flush 0.9% 2019-02-26 17:34:00 No Notes: Same as: BD Posiflush Sterile [facility] Saline Flush 0.9% 2018-08-25 02:09:00 No Notes: (Same as: BD Posiflush) [facility] Rocephin 2018-08-04 10:01:00 No 1 gm, Route: IVPB, Drug form: PDR/INJ, ONCE, Dosing Weight 90.909, kg, Priority: STAT, Start date: 08/04/18 5:01:00 CDT, Stop date: 08/04/18 5:01:00 CDT, ABX Indication: Intra-abdominal Infection [facility] Fentanyl 2018-08-04 06:35:00 No 50 microgram, Route: IVP, ONCE, Dosing Weight 90.909, kg, Priority: STAT, Start date: 08/04/18 1:35:00 CDT, Stop date: 08/04/18 1:35:00 CDT [facility] Zofran 2018-08-04 06:34:00 No 4 mg, Route: IVP, Drug form: INJ, ONCE, Dosing Weight 90.909, kg, Priority: STAT, Start date: 08/04/18 1:34:00 CDT, Stop date: 08/04/18 1:34:00 CDT [facility] Fentanyl 2018-08-04 06:28:00 No 25 microgram, Route: IVP, ONCE, Dosing Weight 90.909, kg, Priority: STAT, Start date: 08/04/18 1:28:00 CDT, Stop date: 08/04/18 1:28:00 CDT [facility] Octreotide 2018-08-04 06:26:00 No 50 microgram, Route: IV, ONCE, Dosing Weight 90.909, kg, Start date: 08/04/18 1:26:00 CDT, Stop date: 08/04/18 1:26:00 CDT [facility] pantoprazole 2018-08-04 06:26:00 No 80 mg, Route: IVP, ONCE, Dosing Weight 90.909, kg, Priority: STAT, Start date: 08/04/18 1:26:00 CDT, Stop date: 08/04/18 1:26:00 CDT [facility] Sodium Chloride 0.9% (Bolus) IV 2018-08-04 06:26:00 No 1,000 mL, Infuse Over: 1 hr, Route: IV, ONCE, Priority: STAT, Dosing Weight 90.909 kg, Start date: 08/04/18 1:26:00 CDT, Stop date: 08/04/18 1:26:00 CDT [facility] Spironolactone 2018-06-06 14:00:00 No Notes: (Same As: Aldactone) [facility] Furosemide 40 MG Oral Tablet 2018-06-06 14:00:00 No Notes: (Same as: Lasix) May cause GI upset. Give with food or milk. [facility] Folic Acid 2018-06-06 14:00:00 No Notes: (S faheem as: Folvite) [facility] riFAXimin 550 mg oral tablet 2018-06-05 22:30:00 Yes 550 mg = 1 tab, PO, Q12H, # 60 tab, 0 Refill(s), Pharmacy: [facility]/pharmacy #[id number] [facility] Ondansetron 4 MG Oral Tablet [Zofran] 2018-06-05 22:21:00 Y es 4 mg = 1 tab, PO, Q8H, PRN Nausea/vomiting, # 15 tab, 0 Refill(s), [id number] Lactulose 667 MG/ML Oral Solution 2018-06-05 22:21:00 Yes 10 gm = 15 mL, PO, TID, PRN Titrate to 2-3 soft bowel movements a day, X 30 day, # 900 mL, 0 Refill(s), [id number] pantoprazole 40 mg oral enteric coated tablet 2018-06-05 22:21:0 0 Yes 40 mg = 1 tab, PO, Before Breakfast, # 3 0 tab, 0 Refill(s), [id number] tramadol hydrochloride 50 MG Oral Tablet 2018-06-05 16:57:00 Yes 50 mg = 1 tab, PO, Q8H, PRN Pain Score 7-10, X 7 day, # 20 tab, 0 Refill(s) [facility] Ferrlecit 2018-06-05 14:00:00 No Notes: (sodium ferric gluconate complex (elemental iron) 62.5 mg/5 ml INJ) "Limited stability. Use immediately after admixture" (Same as: Ferrlecit) MEDICATION WASTE Product Size: 62.5 mg Product Wasted: ___ mg [place] Flagyl 2018-06-05 02:00:00 No Notes: (Same as: Flagyl) Take with food/ avoid alcohol [facility] Golytely 2018-06-04 19:47:00 No Notes: (Сергей e as: Nulytely) [facility] Bisacodyl 2018-06-04 19:47:00 No Notes: (Same As: Dulcolax, Correctol) (Do Not Crush) "Do Not Crush" [facility] Hydromorphone 2018-06-04 17:43:00 No Notes: (Same as: Dilaudid) [facility] Lactulose 667 MG/ML Oral Solution 2018-06-04 02:00:00 No Notes: (Same as:Chronulac) [facility] rifaximin 2018-06-04 02:00:00 No Notes: Сергей betancourt as: Xifaxan [facility] Lactulose 667 MG/ML Oral Solution 2018-06-03 14:00:00 No Notes: (Same as:Chronulac) [facility] pantoprazole 2018-06-03 12:30:00 No Notes: Tablet should not be chewed or crushed. (Same as: Protonix) [facility] lidocaine (ANES) 2018-06-02 19:57:00 No Route: IV, Drug form: INJ, ONCE, Stop date: 06/02/18 14:57:00 CDT [facility] propofol (ANES) 2018-06-02 19:57:00 No Route: IV, Drug form: INJ, ONCE, Stop date: 06/02/18 14:57:00 CDT [facility] Sodium Chloride 0.9% IV 1,000 mL 2018-06-02 19:36:00 No 1,000 mL, Rate: 25 ml/hr, Infuse over: 40 hr, Route: IV, Dosing Weight 87.091 kg, Total Volume: 1,000, Start date: 06/02/18 14:36:00 CDT, Duration: 30 day, Stop date: 07/02/18 14:35:00 CDT, 2.08, m2 Jihan and Rocephin 2018-06-02 06:00:00 No 1 gm, Route: IVPB, Drug form: PDR/INJ, [id number], Dosing Weight 87.091, kg, Start date: 06/02/18 1:00:00 CDT, Duration: 5 day, Stop date: 06/06/18 1:00:00 CDT, ABX Indication: Intra- abdominal Infection [facility] potassium chloride 2018-06-02 05:00:00 No Notes: Infuse at a rate of 10 mEq/hr. (Same as: KCL) [facility] Potassium Chloride 2018-06-02 04:04:00 No 20 mEq, Route: IVPB, ONCE, Dosing Weight 87.091, kg, Start date: 06/01/18 23:04:00 CDT, Stop date: 06/01/18 23:04:[address] [facility] Ceftriaxone 2018-06-02 04:00:00 No Notes: (Same As: Rocephin). Use with 100 mL NS and infuse over 30 min MEDICATION WASTE Product Size: 1000 mg Product Wasted: ___ mg Jihan and octreotide 1,250 microgram + Sodium Chloride 0.9% IV 248.75 mL 2018-06-02 03:26:00 No 248.75 mL, Rate: 10 ml/hr, Infuse over: 25 hr, Route: IV, Dosing Weight 87.091 kg, Total Volume: 250, Start date: 06/01/18 22:26:00 CDT, Duration: 30 day, Stop date: 07/01/18 22:25:00 CDT, 2.08, m2 [facility] Octreotide 2018-06-02 03:26:00 No Notes: (Same As: SandoSTATIN). Refrigerate. MEDICATION WASTE Product Size: 50 microgram Product Wasted: ___ microgram [facility] Flagyl 2018-06-02 02:00:00 No Notes: (Same as: Flagyl) Avoid alcohol. [facility] Tramadol 2018-06-02 01:13:00 No Notes: Not to exceed 400mg/day. (Same As: Ultram) [facility] Hydromorphone 2018-06-02 01:13:00 No Notes: Same as: Dilaudid [facility] Ondansetron 2018-06-02 01:12:00 No Notes: (Same as: Zofran) MEDICATION WASTE Product Size: 4 mg Product Wasted: ___ mg [facility] Melatonin 2018-06-02 01:12:00 No Notes: (Sa me as: Melatonin) [facility] Bisacodyl 2018-06-02 01:12:00 No Notes: (Same As: Dulcolax, Bisco-Lax) [facility] Dextrose 50% Syringe 2018-06-02 01:12:00 No 12.5 gm, 25 mL, Route: IVP, Drug Form: INJ, Dosing Weight 87.091, kg, PRN, PRN Blood Glucose Results, Start date: 06/01/18 20:12:00 CDT, Duration: 30 day, Stop date: 07/01/18 20:11:00 CDT Narendra Glucagon 2018-06-02 01:12:00 No 1 mg, Route: IM, Drug form: PDR/INJ, PRN, Dosing Weight 87.091, kg, PRN Blood Glucose Results, Start date: 06/01/18 20:12:00 CDT, Duration: 30 day, Stop date: 07/01/18 20:11:[address] [facility] Calcium Gluconate 2018-06-02 01:11:00 No Notes: WASTE: F/P - Sink; E - [employer]ash [employer] [facility] Magnesium Sulfate 2018-06-02 01:11:00 No Notes: WASTE: F/P - Sink; E - [employer] [facility] Potassium Chloride 2018-06-02 01:11:00 No Notes: (Same as: K-Dur 20) "Do Not Crush" Give with food and full glass of water For patients unable to swallow tablet, dissolve in one half glass of water. Allow about 2 minutes for the tablets to disintegrate. Stir before giving to prepare slurry and administer. Please exclude Patient s with feeding tube less than 14 [place] (Dobhoff, J-tube etc) and pediatric and patients. [facility] potassium phosphate-sodium phosphate 250 mg-280 mg-160 mg oral powder for reconstitution 2018-06-02 01:11:00 No Notes: (Same as: Phos-NaK) Each 1.5 gm pkt has 250mg phosphorous. Mix w/2.5oz water and stir. [facility] potassium phosphate 2018-06-02 01:11:00 No Notes: (Same as: K Phosphate.) Do not infuse phosphorous concurrently in the same line as TPN or IVF that contains calcium. For double lumen central lines, phosphorous may be infused in a separate lumen from TPN. 1 mMol phoshate has 1.47 mEq potassium Infuse over [address] [facility] sodium phosphate 2018-06-02 01:11:00 No Notes: Infuse over 4 hour. Do not infuse phosphorous concurrently in the same line as TPN or IVF that contains calcium. For double lumen central lines, phosphorous may be infused in a separate lumen from TPN. [facility] Magnesium Oxide 2018-06-02 01:11:00 No Notes: (Same as: Mag-Ox 400) Magnesium oxide [id number] elemental magnesium Dose=____mg magnesium oxide (___mg elemental magnesium) [facility] Ciprofloxacin 2018-06-02 01:09:00 No Notes: Do not refrigerate [facility] tramadol hydrochloride 50 MG Oral Tablet 2018-06-02 01:02:00 No 50 mg = 1 tab, PO, Q6H, PRN Pain, # 40 tab, 0 Refill(s) [facility] Folic Acid 1 MG Oral Tablet 2018-06-02 01:02:00 Yes 1 mg = 1 tab, PO, Daily, # 30 tab, 0 Refill(s) [facility] spironolactone 50 mg oral tablet 2018-06-02 01:02:00 Yes 50 mg = 1 tab, PO, Daily, # 90 tab, 1 Refill(s) [facility] Furosemide 40 MG Oral Tablet 2018-06-02 01:02:00 Yes 40 mg = 1 tab, PO, Daily, # 30 tab, 0 Refill(s) [facility] pneumococcal capsular polysaccharide typ e 1 vaccine / pneumococcal capsular polysaccharide type 10A vaccine / pneumococcal capsular polysaccharide type 11A vaccine / pneumococcal capsular polysaccharide type 12F vaccine / pneumococcal capsular polysacchar 2018-06-02 00:50:32 No Notes: (Same as: Pneumovax 23) Refrigerate [facility] influenza virus vaccine, inactivated 2018-06-02 00:50:04 No Notes: (Same as: Fluzone Quadrivalent, Fluarix Quadrivalent) For 3 years of age and older (0.5 mL IM) Shake well before use [facility] pantoprazole additive 80 mg + Sodium Chloride 0.9% IV 100 mL 2018-06-01 22:40:00 No Notes: For IV push reconstitute with 10 ml 0.9% sodium chloride and push over 2 minutes. (Same as: Protonix) [facility] Protonix 2018-06-01 22:40:00 No Notes: For IV push reconstitute with 10 ml 0.9% sodium chloride and push over 2 minutes. (Same as: Protonix) [facility] Sodium Chloride 0.9% (Bolus) IV 2018-06-01 21:42:00 No 1,000 mL, Infuse Over: 1 hr, Route: IV, ONCE, Priority: STAT, Dosing Weight 90.909 kg, Start date: 06/01/18 16:42:00 CDT, Stop date: 06/01/18 16:42:[address] [facility] Zofran 2018-06-01 21:41:00 No 4 mg, Route: IVP, Drug form: INJ, ONCE, Dosing Weight 90.909, kg, Priority: STAT, Start date: 06/01/18 16:41:00 CDT, Stop date: 06/01/18 16:41:[address] [facility] Morphine 2018-06-01 21:41:00 No 4 mg, Route: IVP, ONCE, Dosing Weight 90.909, kg, Priority: STAT, Start date: 06/01/18 16:41:00 CDT, Stop date: 06/01/18 16:41:[address] [facility] pantoprazole 2018-06-01 14:59:00 No Notes: For IV push reconstitute with 10 ml 0.9% sodium chloride and push over 2 minutes. (Same as: Protonix) [facility] Saline Flush 0.9% 2018-06-01 14:59:00 No Notes: (Same as: BD Posiflush) [facility] Sodium Chloride 0.9% (Bolus) IV 2018-06-01 14:59:00 No 1,000 mL, 1000 ml/hr, Infuse Over: 1 hr, Route: IV, 1,000, Drug form: INJ, ONCE, Priority: STAT, Dosing Weight 90.909 kg, Start date: 06/01/18 9:59:00 CDT, Stop date: 06/01/18 9:59:[address] [facility] pantoprazole 2018-05-31 18:30:00 Yes Notes: For IV push reconstitute with 10 ml 0.9% sodium chloride and push over 2 minutes. (Same as: Protonix) [facility] Saline Flush 0.9% 2018-05-31 18:30:00 No Notes: (Same as: BD Posiflush) [facility] Saline Flush 0.9% 2018-04-18 23:16:00 No Notes: (Same as: BD Posiflush) [facility] Fentanyl 2017-09-16 19:34:00 No Notes: (Same as: Sublimaze) Preservative free. [facility] Saline Flush 0.9% 2017-09-16 19:29:00 No 10 mL, Route: IVP, Drug Form: INJ, Dosing Weight 77, kg, PRN, PRN Line Flush, Start date: 09/16/17 14:29:00 CDT, Duration: 30 day, Stop date: 10/16/17 14:28:[address] [facility] Fentanyl 2017-09-16 15:34:00 No 25 microgram, Route: IV, ONCE, Dosing Weight 74.091, kg, Start date: 09/16/17 10:34:00 CDT, Stop date: 09/16/17 10:34:00 CDT [facility] Phenergan 2017-09-16 07:39:00 No 12.5 mg, Route: IVPB, ONCE, Dosing Weight 81.818, kg, Priority: STAT, Start date: 09/16/17 2:39:00 CDT, Stop date: 09/16/17 2:39:00 CDT [facility] Morphine 2017-09-16 07:39:00 No 4 mg, Route: IVP, ONCE, Dosing Weight 81.818, kg, Priority: STAT, Start date: 09/16/17 2:39:00 CDT, Stop date: 09/16/17 2:39:00 CDT [facility] Saline Flush 0.9% 2017-09-16 07:12:00 No Notes: (Same as: BD Posiflush) [facility] GI cocktail 2017-09-16 07:02:00 No Notes: G.I. Cocktail = antacid with simethicone 22.5 mL - lidocaine viscous 7.5 mL [facility] Acetaminophen With Codeine (Tylenol With Codeine #3 Ta blet) 1 Each Tablet Acetaminophen With Codeine (Tylenol With Codeine #3 Tablet) 1 Each Tablet Yes 300 [id number] as needed for Pain [facility] Furosemide (Lasix) 40 Mg Tablet Furosemide (Lasix) 40 Mg Tablet Yes 40 Twice A Day [facility] Spironolactone 25 Mg Tablet Spironolactone 25 Mg Tablet Yes 50 Daily [facility] Vital Signs Vital Name Observation Time Observation Value Comments Source Systolic (mm Hg) 2019-02-26 17:26:00 [facility] [place] Diastolic (mm Hg) 2019-02-26 17:26:00 [facility] Heart Rate 2019-02-26 17:26:00 [facility] Respitory Rate 2019-02-26 17:26:00 [facility] Temperature Oral (F) 2019-02-26 17:26:00 97.9 F [facility] Weight 2019-02-26 17:26:00 [facility] Temperature Oral (F) 2018-08-25 01:56:00 98.2 F [facility] Systolic (mm Hg) 2018-08-25 01:56:00 [facility] Diastolic (mm Hg) 2018-08-25 01:56:00 [facility] Respitory Rate 2018-08-25 01:56:00 [facility] Heart Rate 2018-08-25 01:56:00 [facility] Respitory Rate 2018-08-04 09:30:00 [facility] Temperature Oral (F) 2018-08-04 09:30:00 97.9 F [facility] Systolic (mm Hg) 2018-08-04 09:30:00 [facility] Diastolic (mm Hg) 2018-08-04 09:30:00 [facility] BMI Calculated 2018-08-04 05:02:00 [facility] Respitory Rate 2018-08-04 05:02:00 [facility] Height 2018-08-04 05:02:00 175.26 cm [facility] Weight 2018-08-04 05:02:00 [facility] Temperature Oral (F) 2018-08-04 05:02:00 98.1 F [facility] Systolic (mm Hg) 2018-08-04 05:02:00 [facility] Diastolic (mm Hg) 2018-08-04 05:02:00 [facility] Heart Rate 2018-08-04 05:02:00 [facility] Systolic (mm Hg) 2018-06-05 21:30:00 [facility] [place] Diastolic (mm Hg) 2018-06-05 21:30:[address] [facility] Respitory Rate 2018-06-05 21:30:00 [facility] [place] Systolic (mm Hg) 2018-06-05 21:15:00 [facility] [place] Diastolic (mm Hg) 2018-06-05 21:15:[address] [facility] Respitory Rate 2018-06-05 21:15:00 [facility] [place] Systolic (mm Hg) 2018-06-05 21:00:00 [place] Diastolic (mm Hg) 2018-06-05 21:00:00 [facility] [place] Respitory Rate 2018-06-05 21:00:00 [facility] [place] Heart Rate 2018-06-05 16:11:00 MH Jihan and Temperature Oral (F) 2018-06-05 16:11:00 98.1 F [place] Temperature Oral (F) 2018-06-05 12:11:00 98 F [place] Heart Rate 2018-06-05 12:11:00 MH Ji[facility] and Temperature Oral (F) 2018-06-05 08:10:00 98.1 F [place] Heart Rate 2018-06-05 08:10:00 MH Ji[facility] and BMI Calculated 2018-06-02 00:42:00 [facility] [place] Weight 2018-06-02 00:42:00 MH [facility] and Height 2018-06-02 00:42:00 175.26 cm MH [facility] and Weight 2018-06-01 14:58:00 MH [facility] and Weight 2018-05-31 18:08:00 [facility] Height 2018-05-31 18:08:00 175.26 cm [facility] BMI Calculated 2018-05-31 18:08:00 [facility] Systolic (mm Hg) 2018-05-31 18:08:00 [facility] [place] Diastolic (mm Hg) 2018-05-31 18:08:00 [facility] Respitory Rate 2018-05-31 18:08:00 [facility] Heart Rate 2018-05-31 18:08:00 [facility] Temperature Oral (F) 2018-05-31 18:08:00 98.2 F [facility] Systolic (mm Hg) 2018-04-18 23:05:00 [facility] [place] Diastolic (mm Hg) 2018-04-18 23:05:00 [facility] Heart Rate 2018-04-18 23:05:00 [facility] Respitory Rate 2018-04-18 23:05:00 [facility] Temperature Oral (F) 2018-04-18 23:05:00 98.5 F [facility] Height 2018-04-18 23:05:00 175.26 cm [facility] BMI Calculated 2018-04-18 23:05:00 [facility] [place] [facility] Weight 2018-04-18 23:05:00 MH [facility] Weight 2017-09-16 19:15:00 MH Jihan and BMI Calculated 2017-09-16 19:15:00 [facility] [place] Height 2017-09-16 19:15:00 175.26 cm MH Ji[facility] and Temperature Oral (F) 2017-09-16 19:15:00 99.1 F MH [place] Respitory Rate 2017-09-16 19:15:00 [facility] [place] Heart Rate 2017-09-16 19:15:00 MH Jihan and Systolic (mm Hg) 2017-09-16 19:15:00 [place] Diastolic (mm Hg) 2017-09-16 19:15:00 MH [place] Temperature Oral (F) 2017-09-16 16:04:00 98.9 F [facility] Respitory Rate 2017-09-16 16:04:00 MH [place] Systolic (mm Hg) 2017-09-16 16:04:00 [facility] [place] Diastolic (mm Hg) 2017-09-16 16:04:00 [facility] Systolic (mm Hg) 2017-09-16 15:01:00 [facility] [place] Diastolic (mm Hg) 2017-09-16 15:01:00 [facility] Respitory Rate 2017-09-16 15:01:00 MH [facility] Height 2017-09-16 14:07:00 175.26 cm [facility] BMI Calculated 2017-09-16 14:07:00 MH [place] Weight 2017-09-16 14:07:00 [facility] Systolic (mm Hg) 2017-09-16 14:03:00 [facility] [place] Diastolic (mm Hg) 2017-09-16 14:03:00 [facility] Respitory Rate 2017-09-16 14:03:00 MH [place] [facility] Temperature Oral (F) 2017-09-16 13:01:00 99.0 F [facility] Heart Rate 2017-09-16 11:10:00 [facility] Heart Rate 2017-09-16 09:30:00 [facility] Weight 2017-09-16 06:48:00 [facility] Temperature Oral (F) 2017-09-16 06:48:00 99 F [facility] Heart Rate 2017-09-16 06:48:00 [facility] Procedures Procedure Date / Time Performed Performing Clinician Sourc e US liver 2017-06-20 00:00:00 AMARA GUTHRIE [facility] Computed tomography of abdomen and pelvis with contrast 2017 00:00:00 EZ MANDUJANO [facility] US guided paracentesis 2017-06-15 00:00:00 JESUS MARKS [facility] Exploratory laparotomy [facility] Encounters Start Date/Time End Date/Time Encounter Type Admission Type Attendi [facility] Care Department Encounter ID Source 2019-02-26 17:19:29 2019-02-26 20:42:00 Emergency [facility] [id number] [facility] 2019-02-26 11:19:29 2019-02-26 14:42:00 Outpatient Mary Banks [facility] [id number] 2019-02-26 11:19:00 2019-02-26 11:19:00 Emergency E [id number] [facility] 2018-08-25 01:55:56 2018-08-25 05:12:00 Emergency [facility] [id number] [facility] 2018-08-24 20:55:56 2018-08-25 00:12:00 Outpatient Mary Banks MHSE MHSE [id number] 2018-08-24 20:55:00 2018-08-24 20:55:00 Emergency E MHSE SE [id number] [facility] 2018-08-04 04:59:28 2018-08-04 10:44:00 Emergency [facility] [id number] [facility] 2018-08-03 23:59:28 2018-08-04 05:44:00 Outpatient Mary Banks ep MHSE MHSE [id number] 2018-08-03 23:59:00 2018-08-03 23:59:00 Emergency E MHSE SE [id number] 2018-06-01 14:37:00 2018-06-05 23:35:00 Inpatient [facility] [id number] [facility] 2018-06-01 09:37:00 2018-06-05 18:35:00 Outpatient Nabeel Hough i MHPL MHPL [id number] 2018-05-31 17:19:00 2018-06-01 00:22:00 Emergency [facility] [id number] [facility] 2018-05-31 12:19:00 2018-05-31 19:22:00 Outpatient Mary Banks jailene MHSE MHSE [id number] 2018-04-18 22:46:00 2018-04-19 02:32:00 Emergency [facility] [id number] [facility] 2018-04-18 16:46:00 2018-04-18 20:32:00 Outpatient Iheme, Varinder U MHSE MHSE [id number] 2018-04-18 16:46:00 2018-04-18 20:32:00 Outpatient Iheme, Varinder U MHSE MHSE [id number] 2018-04-18 16:46:00 2018-04-18 16:46:00 Emergency E MHSE MHSE [id number] [facility] 2017-09-16 18:46:00 2017-09-16 20:34:00 Emergency [facility] [id number] [facility] 2017-09-16 06:41:00 2017-09-16 17:59:00 Emergency [facility] [id number] [facility] 2017-09-16 13:46:00 2017-09-16 15:34:00 Outpatient F Pauline stearns MHPL MHPL [id number] 2017-09-16 01:41:00 2017-09-16 12:59:00 Outpatient Zandra Justice MHSE MHSE [id number] 2017-06-15 15:53:00 2017-06-20 17:14:00 Discharged Inpatient ER [facility] [id number] [facility] Results Test Description Test Time Test Comments Results Result Comments Source CARDIAC ENZYMES 2019-02-26 17:40:00 <0.02 [facility] CHEM PANEL 2019-02-26 17:40:00 [address] ELECTROLYTES 2019-02-26 17:40:00 9.5 [facility] ELECTROLYTES 2019-02-26 17:40:00 Test Item B/C Ratio (test code = B/C Ratio) 12 1 6-25 JkmvvlrfhROVFRCANHTVW0567-51-51 17:40:006.2MH SndseerqxDUPXBNFSSBPN6032-32-00 17:40:00* Test Item Value Reference Range Interpretation Comments A/G Ratio (test code = A/G Ratio) 0.4 1 0.7-1.6 DpaupjdzsREKJIRQQRDYO5246-26-09 17:40:0086 WljmhzwnaRCEWEHZVWEHB1033-97-04 17:40:0011 QrgjuzfezZUXBRGUYERYU5157-25-75 17:40:000.92 [facility] RCJCXYHXOULD4553-59-26 17:40:94884ZO RfjoovspnRTVTXRJCREEB4248-95-14 17:40:003.5 OafjxqyczYIABHDTJYUCU3880-39-88 17:40:24898KA IvlwihosgXOJFQXBESETZ3428-10-69 17:40:0026 SlnbgwcodTIUBRZPKRORQ8612-81-45 17:40:008.3M [facility] LXLYOUVXKOQI9612-17-66 17:40:008.5 MwtxdhmcyBRYKSNGRUURP8797-36-01 17:40:002.3 NjysejfsnULGLRTXDZLNN6470-27-32 17:40:0040 AppaucknlLZEMDAFUEZMH1665-45-13 17:40:17753KE HlsnqmoxvSAEADHLMLOTV2531-77-83 17:40:0073 [facility] 2019-02-26 17:40:000.7 VyoqmqstpXJKWTAXKAWPL6146-69-95 17:40:0098[facility] IUSSBDTZZX3098-24-04 17:40:00See Note (02/26/19 11:40 AM) [facility] 2019-02-26 17:40:00Normal (02/26/19 11:40 AM) CqjjhhfkfAKPEBKXKEM6663-57-22 17:40:0041.5 CvxrvseybVFMRBYXTHA9242-99-19 17:40:0032.8 [facility] 2019-02-26 17:40:0012.4 VyvpfdxghJSJHDEQCBJ5791-31-46 17:40:0012.3[facility] AWMVRFXRZK0971-76-98 17:40:001.0MH KlozjacvpVGOVLXQJLO4117-76-18 17:40:001.3M[facility] HospitalWletmbgaeCBJLXDVPGP1191-95-12 17:40:001.0[facility] SchoolNkweewpmmIKNQBGMFGE9699-45-25 17:40:000.4[facility] SchoolDxfwavgqtBPTMISPHLL0209-14-36 17:40:000.4[facility] 2019-[facility] 17:40:001+ *ABN*(02/26/19 11:40 AM)[facility] HospitalOzccrrifxVMXCPVTTKZ7225-53-18 17:40:001+ *ABN*(02/26/19 11:40 AM)[facility] HospitalZsljphkdsOSMQOMQOYZ5668-88-64 17:40:002+ (02/26/19 11:40 AM)[facility] SchoolOtifzgqyeUERRORQTMO4081-04-56 17:40:003.1[facility]2019-12-17 17:40:003.80[facility] HospitalTjtzdfswdAYNMULIWOI0615-37-53 17:40:008.6M[facility] HospitalBskifjjtmCHXGHSFGUN0577-91-96 17:40:0027.3M[facility] HospitalDbxvpobyvOCNFUJIOQK0685-01-72 17:40:0072.0[facility] HospitalZqwsbcfuiAQUJVNIDWA8342-57-43 17:40:00* Test Item Value Reference Range Interpretation Comments MCH (test code = MCH) 22.6 pg 27.0-31.0 [facility] HospitalVcyrlawdnUYKDAGZGCL1505-75-26 17:40:0031.4[facility] SchoolWeyfvrqlfKURRFMMXHD8948-98-97 17:40:0021.4[facility] SchoolIxguulgorEKEHDBFYZK3277-75-68 17:40:0043[facility]AT[facility] 2019-02-26 17:40:009.0[facility] HospitalWjzbgpcflUQSNMZZTKP3790-39-15 17:40:00* Test Item Value Reference Range Interpretation Comments PT (test code = PT) 15.4 s 12.0-14.7 [facility] HospitalTdzlqmnskUUKWLTCAPP5159-81-22 17:40:00* Test Item Value Reference Range Interpretation Comments INR (test code = INR) 1.21 1 0.85-1.17 [facility] HospitalLewwksyllKXVHHWKKZF0123-83-29 17:40:00* Test Item Value Reference Range Interpretation Comments PTT (test code = PTT) 32.4 s 22.9-35.8 [facility] QXSEHUZY3174-20-69 08:25:00* Test Item Value Reference Range Interpretation Comments UA COLOR (test code = COLU) YELLOW YELLOW UA APPEARANCE (test code = APPU) CLEAR CLEAR UA GLUCOSE DIPSTICK (test code = DGLUU) NEGATIVE mg/dL NEGATIVE UA BILIRUBIN DIPSTICK (test code = BILU) NEGATIVE mg/dL NEGATIVE UA KETONE DIPSTICK (test code = KETU) NEGATIVE mg/dL NEGATIVE UA SPECIFIC GRAVITY (test code = SGU) 1.019 1.001-1.035 UA BLOOD DIPSTICK (test code = NADEEM) 0.2 mg/dL (2+) mg/dL NEGATIVE A UA PH DIPSTICK (test code = CORINNE) 6.0 5.0-8.0 UA PROTEIN DIPSTICK (test code = PROU) 10 (Trace) mg/dL NEGATIVE A UA UROBILINIOGEN DIPSTICK (test code = URO) 4.0 (2+) mg/dL NEGATIVE A UA NITRITE DIPSTICK (test code = RIANA) NEGATIVE NEGATIVE UA LEUKOCYTE ESTERASE W REFLEX (test code = LEUUR) NEGATIVE Tashi/uL NEGATIVE UA WBC (test code = WBCU) 0-5 per HPF 0-5 UA RBC (test code = RBCU) 51-100 #/HPF 0-5 UA EPITHELIAL CELLS (test code = EPIU) FEW per HPF FEW UA BACTERIA (test code = BACU) NONE SEEN #/HPF NONE UA HYALINE CAST (test code = HYALU) 11-20 #/LPF 0-5 A UA MUCUS (test code = MUCU) FEW #/LPF FEW Urine Source? Clean CatchDRUGS OF ABUSE SCREEN [id number] 08:25:00* Test Item Value Reference Range Interpretation Comments URN COCAINE (test code = COCAURN) POSITIVE <300 ng/mL A This test provides only a preliminary test result. A morespecific alternate chemical method must be used in order toobtain a confirmed analytical result. Gas chromatography/mass spectrometry (GC/MS) is thepreferred confirmatory method. Other chemical confirmationmethods are available. Clinical consideration and professional judgment should be applied to any drug of abusetest result, particularly when preliminary positive resultsare used.Unconfirmed screening results must not be used fornon-medical purposes (e.g., employment testing, legaltesting). URN CANNABINOIDS (test code = CANNABURN) NEGATIVE <50 ng/mL URN AMPHETAMINE (test code = AMPHETURN) NEGATIVE <1000 ng/mL URN BARBITURATE (test code = BARBITURN) NEGATIVE <200 ng/mL URN BENZODIAZEPINE (test code = BENZOURN) NEGATIVE <200 ng/mL URN OPIATES (test code = OPIATURN) POSITIVE <300 ng/mL A This test provides only a preliminary test result. A morespecific alternate chemical method must be used in order toobtain a confirmed analytical result. Gas chromatography/mass spectrometry (GC/MS) is thepreferred confirmatory method. Other chemical confirmationmethods are available. Clinical consideration and professional judgment should be applied to any drug of abusetest result, particularly when preliminary positive resultsare used.Unconfirmed screening results must not be used fornon-medical purposes (e.g., employment testing, legaltesting). URN PHENCYCLIDINE (PCP) (test code = PHENCURN) NEGATIVE <25 ng/ mL URN METHADONE (test code = METHAURN) NEGATIVE <300 ng/mL Urine Source? Clean CatchURINALYSIS [id number] 08:14:00* Test Item Value Reference Range Interpretation Comments UA COLOR (test code = COLU) YELLOW YELLOW UA APPEARANCE (test code = APPU) CLEAR CLEAR UA GLUCOSE DIPSTICK (test code = DGLUU) NEGATIVE mg/dL NEGATIVE UA BILIRUBIN DIPSTICK (test code = BILU) NEGATIVE mg/dL NEGATIVE UA KETONE DIPSTICK (test code = KETU) NEGATIVE mg/dL NEGATIVE UA SPECIFIC GRAVITY (test code = SGU) 1.019 1.001-1.035 UA BLOOD DIPSTICK (test code = NADEEM) 0.2 mg/dL (2+) mg/dL NEGATIVE A UA PH DIPSTICK (test code = CORINNE) 6.0 5.0-8.0 UA PROTEIN DIPSTICK (test code = PROU) 10 (Trace) mg/dL NEGATIVE A UA UROBILINIOGEN DIPSTICK (test code = URO) 4.0 (2+) mg/dL NEGATIVE A UA NITRITE DIPSTICK (test code = RIANA) NEGATIVE NEGATIVE UA LEUKOCYTE ESTERASE W REFLEX (test code = LEUUR) NEGATIVE Tashi/uL NEGATIVE UA WBC (test code = WBCU) 0-5 per HPF 0-5 UA RBC (test code = RBCU) 51-100 #/HPF 0-5 UA EPITHELIAL CELLS (test code = EPIU) FEW per HPF FEW UA BACTERIA (test code = BACU) NONE SEEN #/HPF NONE UA HYALINE CAST (test code = HYALU) 11-20 #/LPF 0-5 A UA MUCUS (test code = MUCU) FEW #/LPF FEW Urine Source? Clean CatchDRUGS OF ABUSE SCREEN [id number] 08:14:00* Test Item Value Reference Range Interpretation Comments URN COCAINE (test code = COCAURN) <300 ng/mL URN CANNABINOIDS (test code = CANNABURN) <50 ng/mL URN AMPHETAMINE (test code = AMPHETURN) <1000 ng/mL URN BARBITURATE (test code = BARBITURN) <200 ng/mL URN BENZODIAZEPINE (test code = BENZOURN) <200 ng/mL URN OPIATES (test code = OPIATURN) <300 ng/mL URN PHENCYCLIDINE (PCP) (test code = PHENCURN) <25 ng/ mL URN METHADONE (test code = METHAURN) <300 ng/mL Urine Source? Clean Catch- CT ABD PELVIS W/O [id number] 08:02:00 Name: JOCELIN CORREA [facility] : 1970 Age/S: 48 / M [address] [facility] Unit #: [id number] Loc: [place] [address] Phys: Melania Roberts MD Acct: [id number] Di s Date: Status: REG ER PHONE #: Exam Date: 01/15/2019 0739 FAX #: Reason: abdominal pain EXAMS: CPT CODE: [id number] CT ABD PELVIS W/O CONT 77094 REASON FOR EXAM: abdomina l pain EXAM ORDER DATE: 01/15/2019 7:30 AM Ordering M .D.: Maryan Roberts MD PROCEDURE: - CT ABD PELVIS W/O CONT noncont rast axial CT images were acquired through the abdomen/pelvis at 5 mm inte rvals. Sagittal and coronal reformatted images were generated. Automated exposure control was utilized for this reduction. Phases of contrast: None COMPARISON: CT abdomen and pelvis every 30/05/2018 FINDINGS: The absence of IV contrast limits sensiti vity of this exam for the detection of soft tissue pathology Visualized thorax: Grossly normal Hepatobiliary system: The hepat ic parenchyma and the gallbladder appear to be grossly within normal limit s. There is a small amount of perihepatic ascites of unknown etiology Pancreas: Mild fatty replacement Spleen: Enlarged Adrenal glands: Grossly normal Genitourinary system: There is a stone in the midpole of the right kidney that measures less than 3 m m in size (601/110). No hydronephrosis or perinephric fat stranding is see n. Remainder of the genitourinary system is within normal limits Gastrointestinal tract and appendix: The appendix and large bowel anderson ear to be within normal limits.. The stomach is also within normal limits. The proximal small bowel is unremarkable. There is a loop of small bowel in the right upper abdomen near the gallbladder fossa (2/39 and 601/47) wh ich demonstrates luminal distention with mural thickening. There is ascite s surrounding this focal segment of small bowel. PAGE 1 Signed Report (CONTINUED) Name: MICHELLE CORREA EAL [facility] : 1970 Age/S : 48 / M [address] [facility] Unit #: [id number] Loc: [place] [address] Phys: Maryan Roberts MD Acct: [id number] Dis Date: Status: REG ER PHONE #: [phone] Ex am Date: 01/15/2019 0739 FAX #: [phone] Reason: a bdominal pain EXAMS: CPT CODE: [id number] CT ABD PELVIS W/O CONT 47308 <Continued> Abdominal vascular structures: Grossly normal Peritoneum and retroperitoneum: No free air. There is perihepatic ascites which appears to center around a loop of small bowel in the right upper abdomen adjacent to the gallbladder fossa. There is also stranding of the the mesentery which is slightly worse in the right hemiabdomen. Musculoskeletal structures and abdominal wall: Right-sided gynecomastia is present. Mild degenerative changes are present in the spine IMPRESSION: Edema and/or inflammatory changes of the mesentery with perihepatic ascites. No obvious abnormalities of the liver or gallbladder (although absence of contrast somewhat limits assessment). Rather this ascites appears to be related to a focal segment of small bowel that is adjacent to the gallbladder fossa. If clinically warranted, the liver and gallbladder can be further assessed with an ultrasound. Nonobstructing right-sided nephrolithiasis. Location: [facility] at 0802 Reported and signed by: Steve Long MD CC: Maryan Roberts MD Technologist:Tian Mandujano RT(R),(MR),(C T) CTDI: DLP: Trnscb Date/Time: 01/15/2019 (0802) [email or web address] Orig Print D/T: S: 01/15/2019 (0805) PAGE 2 Signed Report BASIC METABOLIC PANEL 2019-01-15 06:53:00* Test Item Value Reference Range Interpretation Comments SODIUM (test code = NA) 141 mmol/L 136-145 N POTASSIUM (test code = K) 2.9 mmol/L 3.5-5.1 L R esults called to by SUKUMAR 01/15/19 0653Critical results verified and read back by Nurse? Y CHLORIDE (test code = CL) 101.0 mmol/L 98-107 N CARBON DIOXIDE (test code = CO2) 28.0 mmol/L 21-32 N ANION GAP (test code = GAP) 14.9 10-20 N GLUCOSE (test code = GLU) 124 mg/dL 74-106 H BLOOD UREA NITROGEN (test code = BUN) 21 mg/dL 7-18 H GLOMERULAR FILTRATION RATE (test code = GFR) 54 mL/min >=60 Estimated GFR by using Modified MDRD formula.Chronic kidney disease is defined as either kidney damageor GFR <60 mL/min/1.73 m2 for >3 months. CREATININE (test code = CREAT) 1.40 mg/dL 0.7-1.3 H BUN/CREATININE RATIO (test code = BUN/CREA) 15.0 10-20 N CALCIUM (test code = CA) 8.8 mg/dL 8.5-10.1 N HEPATIC FUNCTION [id number] 06:53:00* Test Item Value Reference Range Interpretation Comments TOTAL PROTEIN (test code = PROT) 8.7 gram/dL 6.4-8.2 H ALBUMIN (test code = ALB) 2.4 g/dL 3.4-5.0 L GLOBULIN (test code = GLOB) 6.3 gram/dL 2.7-4.2 H ALBUMIN/GLOBULIN RATIO (test code = A/G) 0.4 0.75-1.50 L BILIRUBIN TOTAL (test code = BILT) 0.80 mg/dL 0.0-1.0 N BILIRUBIN DIRECT (test code = BILD) 0.49 mg/dL 0.0-0.20 H SGOT/AST (test code = AST) 47 IUnit/L 15-37 H SGPT/ALT (test code = ALT) 28 IUnit/L 12-78 N ALKALINE PHOSPHATASE TOTAL (test code = ALKP) 91 IUnit/L 45-117 N Note change in reference range due to change in reagent. [id number] 06:53:00* Test Item Value Reference Range Interpretation Comments LIPASE (test code = LIP) 202 U/L 73.0-393.0 N [id number] 06:53:00* Test Item Value Reference Range Interpretation Comments TROPONIN-I (test code = TROPI) <0.015 ng/mL 0-0.045 N [id number] 06:53:00* Test Item Value Reference Range Interpretation Comments ALCOHOL (test code = ALC) 93 mg/dL 0.0-3.0 H -- INTERPRETIVE DATA NOTE: POSITIVE SCREENING RESULTS SHOULD BE CONSIDERED PRESUMPTIVE.WHEN COLLECTED FOR MEDICAL PURPOSES ONLY. SPECIMEN WILL NOTBE COLLECTED BY CHAIN OF CUSTODY.IF A CONFIRMATION OF POSITIVE RESULTS IS DESIRED, ACONFIRMATION TEST MUST BE REQUESTED BY THE PHYSICIAN AT ANADDITIONAL CHARGE TO THE PATIENT. [id number] 06:52:00* Test Item Value Reference Range Interpretation Comments AMMONIA (test code = AMM) 83 umol/L 11-32 H CBC W/O [id number] 06:39:00* Test Item Value Reference Range Interpretation Comments WHITE BLOOD CELL (test code = WBC) 3.4 K/mm3 4.5-12.5 L RED BLOOD CELL (test code = RBC) 3.66 mill/mm3 4.0-5.8 L HEMOGLOBIN (test code = HGB) 8.0 gram/dL 13.0-17.5 L HEMATOCRIT (test code = HCT) 27.1 % 42.0-52.0 L MEAN CELL VOLUME (test code = MCV) 74.0 fL 80-98 L MEAN CELL HGB (test code = MCH) 21.9 picogram 27.0-33.0 L MEAN CELL HGB CONCETRATION (test code = MCHC) 29.5 gram/dL 33.0-36. 0 L RED CELL DISTRIBUTION WIDTH (test code = RDW) 19.6 % 11.6-16. 2 H PLATELET COUNT (test code = PLT) 80 K/mm3 150-450 L MEAN PLATELET VOLUME (test code = MPV) 10.1 fL 6.7-11.0 N - US ABDOMEN [id number] 09:19:00 Name: CHELLY CORREA [facility] : 1970 Age/S: 48 / M [address] [facility] Unit #: [id number] Loc: [place] [address] Phys: González Nunez MD Acct: [id number] Dis Date: Status: REG CLI PHONE #: [phone] Exam Date: 12/25/2018 0855 FAX #: [phone] Reason: 571.5,K74.60,211.3,D12.6,V85.25,E66.3 EXAMS: CPT CODE: [id number] US ABDOMEN COMPLETE 32809 REASON FOR EXAM: 571.5,K7 4.60,211.3,D12.6,V85.25,E66.3 EXAM ORDER DATE: 12/25/2018 8:14 AM Attending M.D.: González Nunez MD PROCEDURE: - US [facility] COMPLETE Technique: Grayscale and color Doppler images of the abdomen. Comparison study: Abdominal ultrasound April 10, 2018 FINDINGS: Aorta and IVC: Patent and grossly normal i n caliber. Liver: Size: 13.6 cm craniocaudally Parenc hyma and contour: Coarse echotexture is present and there are areas of con tour nodularity. Cysts and/or masses: None. Intrahepatic kady e ducts: No intrahepatic biliary ductal dilation Common bile duct: 3.0 mm in diameter. No echogenic filling defects in visualized duct. Gallbladder: Stones/sludge: No intraluminal stones or sludge. Wall: 2.2 mm in thickness. No discontinuity. No polyps. No perich olecystic fluid. No hyperemia. Sonographic Thomas's sign: Negative Portal vein: Portal vein caliber is within normal limits. Portal vein is patent with hepatopetal flow. Pancreas: Incompletely visua lized. However the visualized portions are grossly within normal limits. Right kidney: parenchyma echogenicity: Normal echogenicity size: 11.3 x 5.4 x 5.5 cm stones: none cysts/masses: none hydronephrosis: none PAGE 1 Signed Report (CONTINUED) Name: CHELLY CORREA [facility] : 1970 Age/S: 48 / M [address] [facility] Unit #: [id number] Loc: [place] [address] Phys: González Nunez MD Acct: [id number] Dis Date: Status: REG CLI PHONE #: [phone] Exam Date: 12/25/2018854 FAX #: [phone] Reason: 571.5,K74.60,211.3,D12.6,V85.25,E66.3 EXAMS: CPT CODE: [id number] US ABDOMEN COMPLETE 44798 < Continued> Left kidney: parenchyma echogenicity: Normal echogenicity size: 12.1 x 6.9 x 5.9 cm stones: none cysts/masses: none hydronephrosis: none Spleen: size: 15.4 x 7.2 x 7.6 cm cysts/masses: Parenchyma is sonographically unremarkable. Ascites/pleural effusions: Ascites is present in the right upper and bilateral lower quadrants. IMPRESSION: Hepatic cirrhosis. Splenomegaly suggest portal venous hypertension and was present on the prior exam. at 0919 Reported and signed by: Steve Long MD CC: González Nunez MD; Lety Hopson MD Technologist: TERRY RIZVI RT(R),FRANCISCO Trncab Date/Time: 12/25/2018 (918) [id number] Orig Print D/T: S: 12/25/2018 (09) Probe: PAGE 2 Signed Report [id number] 16:26:00* Test Item Value Reference Range Interpretation Comments GLUBED (test code = GLUBED) 101 mg/dL 74-106 N Performed by certified brake operator at [facility] CBC W/AUTO [id number] 09:15:00* Test Item Value Reference Range Interpretation Comments WHITE BLOOD CELL (test code = WBC) 3.6 K/mm3 4.5-12.5 L RED BLOOD CELL (test code = RBC) 3.58 mill/mm3 4.0-5.8 L HEMOGLOBIN (test code = HGB) 8.1 gram/dL 13.0-17.5 L HEMATOCRIT (test code = HCT) 26.9 % 42.0-52.0 L MEAN CELL VOLUME (test code = MCV) 75.1 fL 80-98 L MEAN CELL HGB (test code = MCH) 22.6 picogram 27.0-33.0 L MEAN CELL HGB CONCETRATION (test code = MCHC) 30.1 gram/dL 33.0-36. 0 L RED CELL DISTRIBUTION WIDTH (test code = RDW) 20.9 % 11.6-16. 2 H RED CELL DISTRIBUTION WIDTH SD (test code = RDW-SD) 55.3 fL 37 .0-51.0 H PLATELET COUNT (test code = PLT) 74 K/mm3 150-450 L MEAN PLATELET VOLUME (test code = MPV) 10.5 fL 6.7-11.0 N NEUTROPHIL % (test code = NT%) 45.2 % 39.0-69.0 N IMMATURE GRANULOCYTE % (test code = IG%) 0.3 % 0.0-5.0 N LYMPHOCYTE % (test code = LY%) 28.2 % 25.0-55.0 N MONOCYTE % (test code = MO%) 15.4 % 0.0-10.0 H EOSINOPHIL % (test code = EO%) 10.1 % 0.0-5.0 H BASOPHIL % (test code = BA%) 0.8 % 0.0-1.0 N NUCLEATED RBC % (test code = NRBC%) 0.0 % 0-0 N NEUTROPHIL # (test code = NT#) 1.62 K/mm3 1.8-7.7 L IMMATURE GRANULOCYTE # (test code = IG#) 0.01 x10 3/uL 0-0.03 N LYMPHOCYTE # (test code = LY#) 1.01 K/mm3 1.0-5.0 N MONOCYTE # (test code = MO#) 0.55 K/mm3 0-0.8 N EOSINOPHIL # (test code = EO#) 0.36 K/mm3 0.0-0.5 N BASOPHIL # (test code = BA#) 0.03 K/mm3 0.0-0.2 N NUCLEATED RBC # (test code = NRBC#) 0.00 K/mm3 0.0-0.1 N MANUAL DIFF REQUIRED (test code = MDIFF) NO, ONLY SCAN NEEDED DIFFERENTIAL [id number] 09:15:00* Test Item Value Reference Range Interpretation Comments STAIN ACCEPTABILITY (test code = STN ACCEPTABLE) STAIN ACCEPTABLE HYPOCHROMIA (test code = HYPO) 1+ ANISOCYTOSIS (test code = ANISO) 2+ MICROCYTOSIS (test code = MICR) 1+ MORPHOLOGY COMMENT (test code = MOC) NORMAL PLATELET ESTIMATE (test code = PLTEST) DECREASED COMPREHENSIVE METABOLIC [id number] 08:48:00* Test Item Value Reference Range Interpretation Comments SODIUM (test code = NA) 142 mmol/L 136-145 N POTASSIUM (test code = K) 3.6 mmol/L 3.5-5.1 N CHLORIDE (test code = CL) 112.0 mmol/L 98-107 H CARBON DIOXIDE (test code = CO2) 21.0 mmol/L 21-32 N ANION GAP (test code = GAP) 12.6 10-20 N GLUCOSE (test code = GLU) 91 mg/dL 74-106 N BLOOD UREA NITROGEN (test code = BUN) 24 mg/dL 7-18 H GLOMERULAR FILTRATION RATE (test code = GFR) > 60 mL/min >=60 Estimated GFR by using Modified MDRD formula.Chronic kidney disease is defined as either kidney damageor GFR <60 mL/min/1.73 m2 for >3 months. CREATININE (test code = CREAT) 1.20 mg/dL 0.7-1.3 N BUN/CREATININE RATIO (test code = BUN/CREA) 20.5 10-20 H TOTAL PROTEIN (test code = PROT) 8.5 gram/dL 6.4-8.2 H ALBUMIN (test code = ALB) 2.3 g/dL 3.4-5.0 L GLOBULIN (test code = GLOB) 6.2 gram/dL 2.7-4.2 H ALBUMIN/GLOBULIN RATIO (test code = A/G) 0.4 0.75-1.50 L CALCIUM (test code = CA) 8.1 mg/dL 8.5-10.1 L BILIRUBIN TOTAL (test code = BILT) 1.10 mg/dL 0.0-1.0 H SGOT/AST (test code = AST) 49 IUnit/L 15-37 H SGPT/ALT (test code = ALT) 30 IUnit/L 12-78 N ALKALINE PHOSPHATASE TOTAL (test code = ALKP) 67 IUnit/L 45-117 N Note change in reference range due to change in reagent. LIPID PROFILE (CORONARY RISK)2018-12-07 08:48:00* Test Item Value Reference Range Interpretation Comments TRIGLYCERIDES (test code = TRIG) 62 mg/dL 20-150 N CHOLESTEROL (test code = CHOL) 90 mg/dL 0-200 N CHOLESTEROL/HDL RATIO (test code = CHOLHDL) 2.0 RATIO 0-4.9 N RISK ASSOCIATED WITH CHOL/HDL RATIOS: Risk Male Female1/2 AVERAGE 3.43 3.27AVERAGE 4.97 4.442X AVERAGE 9.55 7.053X AVERAGE 23.39 11.04 REFERENCE VALUE IS RELATED TO RISK LEVELS ASRECOMMENDED BY THE [facility]. HEART, LUNG, AND BLOOD INST. HDL CHOLESTEROL (test code = HDL) 34 mg/dL 40-60 L LIPOPROTEIN LDL (test code = LDL) 55 mg/dL 100-129 L Reference Interval: mg/dL mmol/L Optimal <100 <2.6Near/above optimal 100-129 2.6- 3.3Borderline High 130-159 3.4-4.1High 160-189 4.1-4.9Very High >=190 >=4.9========= This LDL result is a direct measurement.========= FE W/TOTAL IRON BINDING CAP.2018-12-07 08:48:00* Test Item Value Reference Range Interpretation Comments SERUM IRON (test code = IRON) 29 ug/dL 50-175 L TOTAL IRON BINDING CAPACITY (test code = TIBC) 500 mcg/dL 250-450 H IRON SATURATION (test code = FESAT) 5.80 % 13-45 L THYROID STIMULATING [id number] 08:48:00* Test Item Value Reference Range Interpretation Comments THYROID STIMULATING HORMONE (test code = TSH) 2.940 uIU/mL 0.36-3.7 4 N TSH REFERENCE RANGES: EUTHYROID: 0.35 - 4.3 mIU/mL HYPO : > 5.5 mIU/mL HYPER : < 0.35 mIU/mL [id number] 08:48:00* Test Item Value Reference Range Interpretation Comments FERRITIN (test code = GRABIEL) 12 ng/mL 8-388 N COMPREHENSIVE METABOLIC [id number] 08:19:00* Test Item Value Reference Range Interpretation Comments SODIUM (test code = NA) 142 mmol/L 136-145 N POTASSIUM (test code = K) 3.6 mmol/L 3.5-5.1 N CHLORIDE (test code = CL) 112.0 mmol/L 98-107 H CARBON DIOXIDE (test code = CO2) mmol/L 21-32 ANION GAP (test code = GAP) 10-20 GLUCOSE (test code = GLU) mg/dL 74-106 BLOOD UREA NITROGEN (test code = BUN) mg/dL 7-18 GLOMERULAR FILTRATION RATE (test code = GFR) mL/min >=60 CREATININE (test code = CREAT) mg/dL 0.7-1.3 BUN/CREATININE RATIO (test code = BUN/CREA) 10-20 TOTAL PROTEIN (test code = PROT) gram/dL 6.4-8.2 ALBUMIN (test code = ALB) g/dL 3.4-5.0 GLOBULIN (test code = GLOB) gram/dL 2.7-4.2 ALBUMIN/GLOBULIN RATIO (test code = A/G) 0.75-1.50 CALCIUM (test code = CA) mg/dL 8.5-10.1 BILIRUBIN TOTAL (test code = BILT) mg/dL 0.0-1.0 SGOT/AST (test code = AST) IUnit/L 15-37 SGPT/ALT (test code = ALT) IUnit/L 12-78 ALKALINE PHOSPHATASE TOTAL (test code = ALKP) IUnit/L 45-117 LIPID PROFILE (CORONARY RISK)2018-12-07 08:19:00* Test Item Value Reference Range Interpretation Comments TRIGLYCERIDES (test code = TRIG) mg/dL 20-150 CHOLESTEROL (test code = CHOL) mg/dL 0-200 CHOLESTEROL/HDL RATIO (test code = CHOLHDL) RATIO 0-4.9 HDL CHOLESTEROL (test code = HDL) mg/dL 40-60 LIPOPROTEIN LDL (test code = LDL) mg/dL 100-129 FE W/TOTAL IRON BINDING CAP.2018-12-07 08:19:00* Test Item Value Reference Range Interpretation Comments SERUM IRON (test code = IRON) ug/dL 50-175 TOTAL IRON BINDING CAPACITY (test code = TIBC) mcg/dL 250-450 IRON SATURATION (test code = FESAT) % 13-45 THYROID STIMULATING [id number] 08:19:00* Test Item Value Reference Range Interpretation Comments THYROID STIMULATING HORMONE (test code = TSH) uIU/mL 0.36-3.7 4 [id number] 08:19:00* Test Item Value Reference Range Interpretation Comments FERRITIN (test code = GRABIEL) ng/mL 8-388 CBC W/AUTO [id number] 08:11:00* Test Item Value Reference Range Interpretation Comments WHITE BLOOD CELL (test code = WBC) 3.6 K/mm3 4.5-12.5 L RED BLOOD CELL (test code = RBC) 3.58 mill/mm3 4.0-5.8 L HEMOGLOBIN (test code = HGB) 8.1 gram/dL 13.0-17.5 L HEMATOCRIT (test code = HCT) 26.9 % 42.0-52.0 L MEAN CELL VOLUME (test code = MCV) 75.1 fL 80-98 L MEAN CELL HGB (test code = MCH) 22.6 picogram 27.0-33.0 L MEAN CELL HGB CONCETRATION (test code = MCHC) 30.1 gram/dL 33.0-36. 0 L RED CELL DISTRIBUTION WIDTH (test code = RDW) 20.9 % 11.6-16. 2 H RED CELL DISTRIBUTION WIDTH SD (test code = RDW-SD) 55.3 fL 37 .0-51.0 H PLATELET COUNT (test code = PLT) 74 K/mm3 150-450 L MEAN PLATELET VOLUME (test code = MPV) 10.5 fL 6.7-11.0 N NEUTROPHIL % (test code = NT%) 45.2 % 39.0-69.0 N IMMATURE GRANULOCYTE % (test code = IG%) 0.3 % 0.0-5.0 N LYMPHOCYTE % (test code = LY%) 28.2 % 25.0-55.0 N MONOCYTE % (test code = MO%) 15.4 % 0.0-10.0 H EOSINOPHIL % (test code = EO%) 10.1 % 0.0-5.0 H BASOPHIL % (test code = BA%) 0.8 % 0.0-1.0 N NUCLEATED RBC % (test code = NRBC%) 0.0 % 0-0 N NEUTROPHIL # (test code = NT#) 1.62 K/mm3 1.8-7.7 L IMMATURE GRANULOCYTE # (test code = IG#) 0.01 x10 3/uL 0-0.03 N LYMPHOCYTE # (test code = LY#) 1.01 K/mm3 1.0-5.0 N MONOCYTE # (test code = MO#) 0.55 K/mm3 0-0.8 N EOSINOPHIL # (test code = EO#) 0.36 K/mm3 0.0-0.5 N BASOPHIL # (test code = BA#) 0.03 K/mm3 0.0-0.2 N NUCLEATED RBC # (test code = NRBC#) 0.00 K/mm3 0.0-0.1 N MANUAL DIFF REQUIRED (test code = MDIFF) NO, ONLY SCAN NEEDED DIFFERENTIAL [id number] 08:11:00* Test Item Value Reference Range Interpretation Comments STAIN ACCEPTABILITY (test code = STN ACCEPTABLE) CABOT RINGS (test code = CAB) MORPHOLOGY COMMENT (test code = MOC) PLATELET ESTIMATE (test code = PLTEST) PLATELET MORPHOLOGY (test code = PLTMORPH) CBC W/AUTO [id number] 08:11:00* Test Item Value Reference Range Interpretation Comments WHITE BLOOD CELL (test code = WBC) 3.6 K/mm3 4.5-12.5 L RED BLOOD CELL (test code = RBC) 3.58 mill/mm3 4.0-5.8 L HEMOGLOBIN (test code = HGB) 8.1 gram/dL 13.0-17.5 L HEMATOCRIT (test code = HCT) 26.9 % 42.0-52.0 L MEAN CELL VOLUME (test code = MCV) 75.1 fL 80-98 L MEAN CELL HGB (test code = MCH) 22.6 picogram 27.0-33.0 L MEAN CELL HGB CONCETRATION (test code = MCHC) 30.1 gram/dL 33.0-36. 0 L RED CELL DISTRIBUTION WIDTH (test code = RDW) 20.9 % 11.6-16. 2 H RED CELL DISTRIBUTION WIDTH SD (test code = RDW-SD) 55.3 fL 37 .0-51.0 H PLATELET COUNT (test code = PLT) 74 K/mm3 150-450 L MEAN PLATELET VOLUME (test code = MPV) 10.5 fL 6.7-11.0 N NEUTROPHIL % (test code = NT%) 45.2 % 39.0-69.0 N IMMATURE GRANULOCYTE % (test code = IG%) 0.3 % 0.0-5.0 N LYMPHOCYTE % (test code = LY%) 28.2 % 25.0-55.0 N MONOCYTE % (test code = MO%) 15.4 % 0.0-10.0 H EOSINOPHIL % (test code = EO%) 10.1 % 0.0-5.0 H BASOPHIL % (test code = BA%) 0.8 % 0.0-1.0 N NUCLEATED RBC % (test code = NRBC%) 0.0 % 0-0 N NEUTROPHIL # (test code = NT#) 1.62 K/mm3 1.8-7.7 L IMMATURE GRANULOCYTE # (test code = IG#) 0.01 x10 3/uL 0-0.03 N LYMPHOCYTE # (test code = LY#) 1.01 K/mm3 1.0-5.0 N MONOCYTE # (test code = MO#) 0.55 K/mm3 0-0.8 N EOSINOPHIL # (test code = EO#) 0.36 K/mm3 0.0-0.5 N BASOPHIL # (test code = BA#) 0.03 K/mm3 0.0-0.2 N NUCLEATED RBC # (test code = NRBC#) 0.00 K/mm3 0.0-0.1 N MANUAL DIFF REQUIRED (test code = MDIFF) NO, ONLY SCAN NEEDED DIFFERENTIAL [id number] 08:11:00* Test Item Value Reference Range Interpretation Comments STAIN ACCEPTABILITY (test code = STN ACCEPTABLE) CABOT RINGS (test code = CAB) MORPHOLOGY COMMENT (test code = MOC) PLATELET ESTIMATE (test code = PLTEST) PLATELET MORPHOLOGY (test code = PLTMORPH) CBC W/AUTO [id number] 08:11:00* Test Item Value Reference Range Interpretation Comments WHITE BLOOD CELL (test code = WBC) 3.6 K/mm3 4.5-12.5 L RED BLOOD CELL (test code = RBC) 3.58 mill/mm3 4.0-5.8 L HEMOGLOBIN (test code = HGB) 8.1 gram/dL 13.0-17.5 L HEMATOCRIT (test code = HCT) 26.9 % 42.0-52.0 L MEAN CELL VOLUME (test code = MCV) 75.1 fL 80-98 L MEAN CELL HGB (test code = MCH) 22.6 picogram 27.0-33.0 L MEAN CELL HGB CONCETRATION (test code = MCHC) 30.1 gram/dL 33.0-36. 0 L RED CELL DISTRIBUTION WIDTH (test code = RDW) 20.9 % 11.6-16. 2 H RED CELL DISTRIBUTION WIDTH SD (test code = RDW-SD) 55.3 fL 37 .0-51.0 H PLATELET COUNT (test code = PLT) 74 K/mm3 150-450 L MEAN PLATELET VOLUME (test code = MPV) 10.5 fL 6.7-11.0 N NEUTROPHIL % (test code = NT%) 45.2 % 39.0-69.0 N IMMATURE GRANULOCYTE % (test code = IG%) 0.3 % 0.0-5.0 N LYMPHOCYTE % (test code = LY%) 28.2 % 25.0-55.0 N MONOCYTE % (test code = MO%) 15.4 % 0.0-10.0 H EOSINOPHIL % (test code = EO%) 10.1 % 0.0-5.0 H BASOPHIL % (test code = BA%) 0.8 % 0.0-1.0 N NUCLEATED RBC % (test code = NRBC%) 0.0 % 0-0 N NEUTROPHIL # (test code = NT#) 1.62 K/mm3 1.8-7.7 L IMMATURE GRANULOCYTE # (test code = IG#) 0.01 x10 3/uL 0-0.03 N LYMPHOCYTE # (test code = LY#) 1.01 K/mm3 1.0-5.0 N MONOCYTE # (test code = MO#) 0.55 K/mm3 0-0.8 N EOSINOPHIL # (test code = EO#) 0.36 K/mm3 0.0-0.5 N BASOPHIL # (test code = BA#) 0.03 K/mm3 0.0-0.2 N NUCLEATED RBC # (test code = NRBC#) 0.00 K/mm3 0.0-0.1 N MANUAL DIFF REQUIRED (test code = MDIFF) NO, ONLY SCAN NEEDED DIFFERENTIAL [id number] 08:11:00* Test Item Value Reference Range Interpretation Comments STAIN ACCEPTABILITY (test code = STN ACCEPTABLE) MORPHOLOGY COMMENT (test code = MOC) PLATELET ESTIMATE (test code = PLTEST) PLATELET MORPHOLOGY (test code = PLTMORPH) CBC W/AUTO [id number] 08:10:00* Test Item Value Reference Range Interpretation Comments WHITE BLOOD CELL (test code = WBC) 3.6 K/mm3 4.5-12.5 L RED BLOOD CELL (test code = RBC) 3.58 mill/mm3 4.0-5.8 L HEMOGLOBIN (test code = HGB) 8.1 gram/dL 13.0-17.5 L HEMATOCRIT (test code = HCT) 26.9 % 42.0-52.0 L MEAN CELL VOLUME (test code = MCV) 75.1 fL 80-98 L MEAN CELL HGB (test code = MCH) 22.6 picogram 27.0-33.0 L MEAN CELL HGB CONCETRATION (test code = MCHC) 30.1 gram/dL 33.0-36. 0 L RED CELL DISTRIBUTION WIDTH (test code = RDW) 20.9 % 11.6-16. 2 H RED CELL DISTRIBUTION WIDTH SD (test code = RDW-SD) 55.3 fL 37 .0-51.0 H PLATELET COUNT (test code = PLT) 74 K/mm3 150-450 L MEAN PLATELET VOLUME (test code = MPV) 10.5 fL 6.7-11.0 N NEUTROPHIL % (test code = NT%) 45.2 % 39.0-69.0 N IMMATURE GRANULOCYTE % (test code = IG%) 0.3 % 0.0-5.0 N LYMPHOCYTE % (test code = LY%) 28.2 % 25.0-55.0 N MONOCYTE % (test code = MO%) 15.4 % 0.0-10.0 H EOSINOPHIL % (test code = EO%) 10.1 % 0.0-5.0 H BASOPHIL % (test code = BA%) 0.8 % 0.0-1.0 N NUCLEATED RBC % (test code = NRBC%) 0.0 % 0-0 N NEUTROPHIL # (test code = NT#) 1.62 K/mm3 1.8-7.7 L IMMATURE GRANULOCYTE # (test code = IG#) 0.01 x10 3/uL 0-0.03 N LYMPHOCYTE # (test code = LY#) 1.01 K/mm3 1.0-5.0 N MONOCYTE # (test code = MO#) 0.55 K/mm3 0-0.8 N EOSINOPHIL # (test code = EO#) 0.36 K/mm3 0.0-0.5 N BASOPHIL # (test code = BA#) 0.03 K/mm3 0.0-0.2 N NUCLEATED RBC # (test code = NRBC#) 0.00 K/mm3 0.0-0.1 N MANUAL DIFF REQUIRED (test code = MDIFF) NO, ONLY SCAN NEEDED DIFFERENTIAL [id number] 08:10:00* Test Item Value Reference Range Interpretation Comments STAIN ACCEPTABILITY (test code = STN ACCEPTABLE) CABOT RINGS (test code = CAB) MORPHOLOGY COMMENT (test code = MOC) PLATELET ESTIMATE (test code = PLTEST) PLATELET MORPHOLOGY (test code = PLTMORPH) [id number] 08:09:00* Test Item Value Reference Range Interpretation Comments AMMONIA (test code = AMM) 89 umol/L 11-32 H [id number] 08:09:00* Test Item Value Reference Range Interpretation Comments GLYCOSYLATED HEMOGLOBIN (HA1C) (test code = GLYHGB) 5.0 % HbA1 4. 8-6.0 N ESTIMATED AVERAGE GLUCOSE (test code = EAG) 97 MG/DL [id number] 05:52:00* Test Item Value Reference Range Interpretation Comments GLUBED (test code = GLUBED) 100 mg/dL 74-106 N Performed by certified brake operator at [facility] [id number] 20:26:00* Test Item Value Reference Range Interpretation Comments GLUBED (test code = GLUBED) 111 mg/dL 74-106 H Performed by certified brake operator at [facility] PROTHROMBIN [id number] 15:38:00* Test Item Value Reference Range Interpretation Comments PROTHROMBIN TIME PATIENT (test code = PTP) 13.8 seconds 9.0-14.0 N INTERNATIONAL NORMAL RATIO (test code = INR) 1.2 0.8-1.2 N The therapeutic range for oral anticoagulant therapy formost indications is an international normalized ratio (INR)of between 2.0 and 3.0. The recommended therapeutic INRrange for various clinical situations is listed below: Clinical Situation INR range Pulmonary e mbolism treatment (2.0-3.0)Venous thrombosis treatmentVenous thrombosis prophylaxis (high risk surgery)Prevention of systemic embolism from: Acute myocardial infarction Valvular heart disease Atrial fibrillation Mechanical prosthetic heart valves (2.5-3.5) IS PATIENT ON ANTICOAGULANTS? NTHROMBOPLASTIN TIME [id number] 15:38:00* Test Item Value Reference Range Interpretation Comments THROMBOPLASTIN TIME PARTIAL (test code = PTT) 36.6 seconds 25.0-36. 5 H IS PATIENT ON ANTICOAGULANTS? [id number] 14:10:00* Test Item Value Reference Range Interpretation Comments PHOSPHORUS (test code = PHOS) 3.3 mg/dL 2.5-4.9 N [id number] 14:10:00* Test Item Value Reference Range Interpretation Comments AMYLASE (test code = JUAN) 69 Unit/L 25-115 N [id number] 14:10:00* Test Item Value Reference Range Interpretation Comments LIPASE (test code = LIP) 116 U/L 73.0-393.0 N [id number] 14:10:00* Test Item Value Reference Range Interpretation Comments MAGNESIUM (test code = MAG) 2.3 mg/dL 1.8-2.4 N VITAMIN [id number] 14:10:00* Test Item Value Reference Range Interpretation Comments VITAMIN B12 (test code = VITB12) 776 pg/mL 193-986 N FOLIC [id number] 14:10:00* Test Item Value Reference Range Interpretation Comments FOLIC ACID (test code = FOL) 33.2 ng/mL 3.10-17.50 H [id number] 14:10:00* Test Item Value Reference Range Interpretation Comments ALCOHOL (test code = ALC) 5 mg/dL 0.0-3.0 H -- INTERPRETIVE DATA NOTE: POSITIVE SCREENING RESULTS SHOULD BE CONSIDERED PRESUMPTIVE.WHEN COLLECTED FOR MEDICAL PURPOSES ONLY. SPECIMEN WILL NOTBE COLLECTED BY CHAIN OF CUSTODY.IF A CONFIRMATION OF POSITIVE RESULTS IS DESIRED, ACONFIRMATION TEST MUST BE REQUESTED BY THE PHYSICIAN AT ANADDITIONAL CHARGE TO THE PATIENT. - CT HEAD/BRAIN W/O [id number] 07:29:00 Name: JOCELIN CORREA [facility] : 1970 Age/S: 48 / M [address] [facility] Unit #: [id number] Loc: [place] [address] Phys: Lolis Parks DO Acct: [id number] Dis Date: Status: REG ER PHONE #: [phone] Exam Date: 12/06/2018 0635 FAX #: [phone] Reason: Altered Mental Status EXAMS: CPT CODE: [id number] CT HEAD/BRAIN W/O CONT 71907 HISTORY: Altered mental status TECHNIQUE: Noncontrast 2.[address] of the head. Examination acquired within 24 hours of arrival. Automated exposure control for dose reduction; DLP: 755 mGy-cm. COMPARISON: 04/18/18 FINDINGS: No acute hemorrhage. No CT evidence of acute infarct. No intracranial mass or mass effect. Mild parenchymal atrophy. No hydrocephalus. No extra-axial fluid collection. Diffuse paranasal sinus mucosal thickening. Mastoid air cells and middle ear cavities are clear. Orbital contents are unremarkable. Calvarium and skull base are intact. IMPRESSION: No acute intracranial process. at 0729 Reported and signed by: Natalie Ochoa D.O. CC: Lolis Parks DO Technologist:JULIANE HINKLE CTDI: DLP: Trnscb Date/Time: 12/06/2018 (728) [id number] Orig Print D/T: S: 12/06/2018 (0762) PAGE 1 Signed Report CBC W/AUTO [id number] 07:26:00* Test Item Value Reference Range Interpretation Comments WHITE BLOOD CELL (test code = WBC) 4.9 K/mm3 4.5-12.5 N RED BLOOD CELL (test code = RBC) 4.39 mill/mm3 4.0-5.8 N HEMOGLOBIN (test code = HGB) 9.6 gram/dL 13.0-17.5 L HEMATOCRIT (test code = HCT) 32.8 % 42.0-52.0 L MEAN CELL VOLUME (test code = MCV) 74.7 fL 80-98 L MEAN CELL HGB (test code = MCH) 21.9 picogram 27.0-33.0 L MEAN CELL HGB CONCETRATION (test code = MCHC) 29.3 gram/dL 33.0-36. 0 L RED CELL DISTRIBUTION WIDTH (test code = RDW) 21.2 % 11.6-16. 2 H RED CELL DISTRIBUTION WIDTH SD (test code = RDW-SD) 55.2 fL 37 .0-51.0 H PLATELET COUNT (test code = PLT) 87 K/mm3 150-450 L MEAN PLATELET VOLUME (test code = MPV) TEST NOT PERFORMED fL 6.7-11 .0 NEUTROPHIL % (test code = NT%) 62.5 % 39.0-69.0 N IMMATURE GRANULOCYTE % (test code = IG%) 0.4 % 0.0-5.0 N LYMPHOCYTE % (test code = LY%) 20.5 % 25.0-55.0 L MONOCYTE % (test code = MO%) 10.1 % 0.0-10.0 H EOSINOPHIL % (test code = EO%) 5.7 % 0.0-5.0 H BASOPHIL % (test code = BA%) 0.8 % 0.0-1.0 N NUCLEATED RBC % (test code = NRBC%) 0.0 % 0-0 N NEUTROPHIL # (test code = NT#) 3.08 K/mm3 1.8-7.7 N IMMATURE GRANULOCYTE # (test code = IG#) 0.02 x10 3/uL 0-0.03 N LYMPHOCYTE # (test code = LY#) 1.01 K/mm3 1.0-5.0 N MONOCYTE # (test code = MO#) 0.50 K/mm3 0-0.8 N EOSINOPHIL # (test code = EO#) 0.28 K/mm3 0.0-0.5 N BASOPHIL # (test code = BA#) 0.04 K/mm3 0.0-0.2 N NUCLEATED RBC # (test code = NRBC#) 0.00 K/mm3 0.0-0.1 N MANUAL DIFF REQUIRED (test code = MDIFF) NO, ONLY SCAN NEEDED DIFFERENTIAL [id number] 07:26:00* Test Item Value Reference Range Interpretation Comments STAIN ACCEPTABILITY (test code = STN ACCEPTABLE) STAIN ACCEPTABLE HYPOCHROMIA (test code = HYPO) 1+ ANISOCYTOSIS (test code = ANISO) 1+ MACROCYTOSIS (test code = MACR) 1+ PLATELET ESTIMATE (test code = PLTEST) DECREASED PLATELET MORPHOLOGY (test code = PLTMORPH) SIZE VARIABLE URINALYSIS [id number] 07:12:00* Test Item Value Reference Range Interpretation Comments UA COLOR (test code = COLU) YELLOW YELLOW UA APPEARANCE (test code = APPU) Cloudy CLEAR A UA GLUCOSE DIPSTICK (test code = DGLUU) NEGATIVE mg/dL NEGATIVE UA BILIRUBIN DIPSTICK (test code = BILU) NEGATIVE mg/dL NEGATIVE UA KETONE DIPSTICK (test code = KETU) NEGATIVE mg/dL NEGATIVE UA SPECIFIC GRAVITY (test code = SGU) 1.018 1.001-1.035 UA BLOOD DIPSTICK (test code = NADEEM) 0.5 mg/dL (2+) mg/dL NEGATIVE A UA PH DIPSTICK (test code = CORINNE) 7.5 5.0-8.0 UA PROTEIN DIPSTICK (test code = PROU) 10 (Trace) mg/dL NEGATIVE A UA UROBILINIOGEN DIPSTICK (test code = URO) 4.0 (2+) mg/dL NEGATIVE A UA NITRITE DIPSTICK (test code = RIANA) NEGATIVE NEGATIVE UA LEUKOCYTE ESTERASE W REFLEX (test code = LEUUR) NEGATIVE Tashi/uL NEGATIVE UA WBC (test code = WBCU) 6-10 per HPF 0-5 A UA RBC (test code = RBCU) 21-50 #/HPF 0-5 UA EPITHELIAL CELLS (test code = EPIU) FEW per HPF FEW UA BACTERIA (test code = BACU) FEW #/HPF NONE A UA MUCUS (test code = MUCU) FEW #/LPF FEW Urine Source? Clean CatchDRUGS OF ABUSE SCREEN [id number] 07:12:00* Test Item Value Reference Range Interpretation Comments URN COCAINE (test code = COCAURN) POSITIVE <300 ng/mL A This test provides only a preliminary test result. A morespecific alternate chemical method must be used in order toobtain a confirmed analytical result. Gas chromatography/mass spectrometry (GC/MS) is thepreferred confirmatory method. Other chemical confirmationmethods are available. Clinical consideration and professional judgment should be applied to any drug of abusetest result, particularly when preliminary positive resultsare used.Unconfirmed screening results must not be used fornon-medical purposes (e.g., employment testing, legaltesting). URN CANNABINOIDS (test code = CANNABURN) NEGATIVE <50 ng/mL URN AMPHETAMINE (test code = AMPHETURN) NEGATIVE <1000 ng/mL URN BARBITURATE (test code = BARBITURN) NEGATIVE <200 ng/mL URN BENZODIAZEPINE (test code = BENZOURN) NEGATIVE <200 ng/mL URN OPIATES (test code = OPIATURN) NEGATIVE <300 ng/mL URN PHENCYCLIDINE (PCP) (test code = PHENCURN) NEGATIVE <25 ng/ mL URN METHADONE (test code = METHAURN) NEGATIVE <300 ng/mL Urine Source? Clean CatchURINALYSIS [id number] 07:08:00* Test Item Value Reference Range Interpretation Comments UA COLOR (test code = COLU) YELLOW YELLOW UA APPEARANCE (test code = APPU) Cloudy CLEAR A UA GLUCOSE DIPSTICK (test code = DGLUU) NEGATIVE mg/dL NEGATIVE UA BILIRUBIN DIPSTICK (test code = BILU) NEGATIVE mg/dL NEGATIVE UA KETONE DIPSTICK (test code = KETU) NEGATIVE mg/dL NEGATIVE UA SPECIFIC GRAVITY (test code = SGU) 1.018 1.001-1.035 UA BLOOD DIPSTICK (test code = NADEEM) 0.5 mg/dL (2+) mg/dL NEGATIVE A UA PH DIPSTICK (test code = CORINNE) 7.5 5.0-8.0 UA PROTEIN DIPSTICK (test code = PROU) 10 (Trace) mg/dL NEGATIVE A UA UROBILINIOGEN DIPSTICK (test code = URO) 4.0 (2+) mg/dL NEGATIVE A UA NITRITE DIPSTICK (test code = RIANA) NEGATIVE NEGATIVE UA LEUKOCYTE ESTERASE W REFLEX (test code = LEUUR) NEGATIVE Tashi/uL NEGATIVE UA WBC (test code = WBCU) 6-10 per HPF 0-5 A UA RBC (test code = RBCU) 21-50 #/HPF 0-5 UA EPITHELIAL CELLS (test code = EPIU) FEW per HPF FEW UA BACTERIA (test code = BACU) FEW #/HPF NONE A UA MUCUS (test code = MUCU) FEW #/LPF FEW Urine Source? Clean CatchDRUGS OF ABUSE SCREEN [id number] 07:08:00* Test Item Value Reference Range Interpretation Comments URN COCAINE (test code = COCAURN) <300 ng/mL URN CANNABINOIDS (test code = CANNABURN) <50 ng/mL URN AMPHETAMINE (test code = AMPHETURN) <1000 ng/mL URN BARBITURATE (test code = BARBITURN) <200 ng/mL URN BENZODIAZEPINE (test code = BENZOURN) <200 ng/mL URN OPIATES (test code = OPIATURN) <300 ng/mL URN PHENCYCLIDINE (PCP) (test code = PHENCURN) <25 ng/ mL URN METHADONE (test code = METHAURN) <300 ng/mL Urine Source? Clean CatchURINALYSIS [id number] 07:01:00* Test Item Value Reference Range Interpretation Comments UA COLOR (test code = COLU) YELLOW YELLOW UA APPEARANCE (test code = APPU) Cloudy CLEAR A UA GLUCOSE DIPSTICK (test code = DGLUU) NEGATIVE mg/dL NEGATIVE UA BILIRUBIN DIPSTICK (test code = BILU) NEGATIVE mg/dL NEGATIVE UA KETONE DIPSTICK (test code = KETU) NEGATIVE mg/dL NEGATIVE UA SPECIFIC GRAVITY (test code = SGU) 1.018 1.001-1.035 UA BLOOD DIPSTICK (test code = NADEEM) 0.5 mg/dL (2+) mg/dL NEGATIVE A UA PH DIPSTICK (test code = CORINNE) 7.5 5.0-8.0 UA PROTEIN DIPSTICK (test code = PROU) 10 (Trace) mg/dL NEGATIVE A UA UROBILINIOGEN DIPSTICK (test code = URO) 4.0 (2+) mg/dL NEGATIVE A UA NITRITE DIPSTICK (test code = RIANA) NEGATIVE NEGATIVE UA LEUKOCYTE ESTERASE W REFLEX (test code = LEUUR) NEGATIVE Tashi/uL NEGATIVE UA WBC (test code = WBCU) per HPF 0-5 UA RBC (test code = RBCU) per HPF 0-5 UA EPITHELIAL CELLS (test code = EPIU) per HPF Few UA BACTERIA (test code = BACU) per HPF NONE Urine Source? Clean CatchDRUGS OF ABUSE SCREEN [id number] 07:01:00* Test Item Value Reference Range Interpretation Comments URN COCAINE (test code = COCAURN) <300 ng/mL URN CANNABINOIDS (test code = CANNABURN) <50 ng/mL URN AMPHETAMINE (test code = AMPHETURN) <1000 ng/mL URN BARBITURATE (test code = BARBITURN) <200 ng/mL URN BENZODIAZEPINE (test code = BENZOURN) <200 ng/mL URN OPIATES (test code = OPIATURN) <300 ng/mL URN PHENCYCLIDINE (PCP) (test code = PHENCURN) <25 ng/ mL URN METHADONE (test code = METHAURN) <300 ng/mL Urine Source? Clean CatchBASIC METABOLIC [id number] 06:46:00* Test Item Value Reference Range Interpretation Comments SODIUM (test code = NA) 140 mmol/L 136-145 N POTASSIUM (test code = K) 4.7 mmol/L 3.5-5.1 N CHLORIDE (test code = CL) 109.0 mmol/L 98-107 H CARBON DIOXIDE (test code = CO2) 20.0 mmol/L 21-32 L ANION GAP (test code = GAP) 15.7 10-20 N GLUCOSE (test code = GLU) 98 mg/dL 74-106 N BLOOD UREA NITROGEN (test code = BUN) 20 mg/dL 7-18 H GLOMERULAR FILTRATION RATE (test code = GFR) > 60 mL/min >=60 Estimated GFR by using Modified MDRD formula.Chronic kidney disease is defined as either kidney damageor GFR <60 mL/min/1.73 m2 for >3 months. CREATININE (test code = CREAT) 1.10 mg/dL 0.7-1.3 N BUN/CREATININE RATIO (test code = BUN/CREA) 18.3 10-20 N CALCIUM (test code = CA) 8.5 mg/dL 8.5-10.1 N HEPATIC FUNCTION [id number] 06:46:00* Test Item Value Reference Range Interpretation Comments TOTAL PROTEIN (test code = PROT) 9.7 gram/dL 6.4-8.2 H ALBUMIN (test code = ALB) 2.6 g/dL 3.4-5.0 L GLOBULIN (test code = GLOB) 7.1 gram/dL 2.7-4.2 H ALBUMIN/GLOBULIN RATIO (test code = A/G) 0.4 0.75-1.50 L BILIRUBIN TOTAL (test code = BILT) 1.50 mg/dL 0.0-1.0 H BILIRUBIN DIRECT (test code = BILD) 0.64 mg/dL 0.0-0.20 H SGOT/AST (test code = AST) 78 IUnit/L 15-37 H SGPT/ALT (test code = ALT) 40 IUnit/L 12-78 N ALKALINE PHOSPHATASE TOTAL (test code = ALKP) 78 IUnit/L 45-117 N Note change in reference range due to change in reagent. [id number] 06:46:00* Test Item Value Reference Range Interpretation Comments TROPONIN-I (test code = TROPI) <0.015 ng/mL 0-0.045 N [id number] 06:46:00* Test Item Value Reference Range Interpretation Comments ACETAMINOPHEN (test code = ACET) < 10 mcg/mL 10-30 L A RANGE OF 10-30 mcg/mL IS A THERAPEUTIC RANGE. TOXIC CONCENTRATIONS: >150 mcg/mL AT 4 HOURS AFTER INGESTION >= 50 mcg/mL AT 12 HOURS AFTER INGESTION [id number] 06:46:00* Test Item Value Reference Range Interpretation Comments SALICYLATE (test code = KAILEY) < 1.7 mg/dL 2.8-20.0 L [id number] 06:46:00* Test Item Value Reference Range Interpretation Comments ALCOHOL (test code = ALC) < 3 mg/dL 0.0-3.0 N -- INTERPRETIVE DATA NOTE: POSITIVE SCREENING RESULTS SHOULD BE CONSIDERED PRESUMPTIVE.WHEN COLLECTED FOR MEDICAL PURPOSES ONLY. SPECIMEN WILL NOTBE COLLECTED BY CHAIN OF CUSTODY.IF A CONFIRMATION OF POSITIVE RESULTS IS DESIRED, ACONFIRMATION TEST MUST BE REQUESTED BY THE PHYSICIAN AT ANADDITIONAL CHARGE TO THE PATIENT. PROTHROMBIN [id number] 06:44:00* Test Item Value Reference Range Interpretation Comments PROTHROMBIN TIME PATIENT (test code = PTP) 13.2 seconds 9.0-14.0 N INTERNATIONAL NORMAL RATIO (test code = INR) 1.1 0.8-1.2 N The therapeutic range for oral anticoagulant therapy formost indications is an international normalized ratio (INR)of between 2.0 and 3.0. The recommended therapeutic INRrange for various clinical situations is listed below: Clinical Situation INR range Pulmonary e mbolism treatment (2.0-3.0)Venous thrombosis treatmentVenous thrombosis prophylaxis (high risk surgery)Prevention of systemic embolism from: Acute myocardial infarction Valvular heart disease Atrial fibrillation Mechanical prosthetic heart valves (2.5-3.5) IS PATIENT ON ANTICOAGULANTS? NTHROMBOPLASTIN TIME [id number] 06:44:00* Test Item Value Reference Range Interpretation Comments THROMBOPLASTIN TIME PARTIAL (test code = PTT) 34.6 seconds 25.0-36. 5 N IS PATIENT ON ANTICOAGULANTS? [id number] 06:37:00* Test Item Value Reference Range Interpretation Comments AMMONIA (test code = AMM) 152 umol/L 11-32 H BASIC METABOLIC [id number] 06:31:00* Test Item Value Reference Range Interpretation Comments SODIUM (test code = NA) 140 mmol/L 136-145 N POTASSIUM (test code = K) 4.7 mmol/L 3.5-5.1 N CHLORIDE (test code = CL) 109.0 mmol/L 98-107 H CARBON DIOXIDE (test code = CO2) mmol/L 21-32 ANION GAP (test code = GAP) 10-20 GLUCOSE (test code = GLU) mg/dL 74-106 BLOOD UREA NITROGEN (test code = BUN) mg/dL 7-18 GLOMERULAR FILTRATION RATE (test code = GFR) mL/min >=60 CREATININE (test code = CREAT) mg/dL 0.7-1.3 BUN/CREATININE RATIO (test code = BUN/CREA) 10-20 CALCIUM (test code = CA) mg/dL 8.5-10.1 HEPATIC FUNCTION [id number] 06:31:00* Test Item Value Reference Range Interpretation Comments TOTAL PROTEIN (test code = PROT) gram/dL 6.4-8.2 ALBUMIN (test code = ALB) g/dL 3.4-5.0 GLOBULIN (test code = GLOB) gram/dL 2.7-4.2 ALBUMIN/GLOBULIN RATIO (test code = A/G) 0.75-1.50 BILIRUBIN TOTAL (test code = BILT) mg/dL 0.0-1.0 BILIRUBIN DIRECT (test code = BILD) mg/dL 0.0-0.20 SGOT/AST (test code = AST) IUnit/L 15-37 SGPT/ALT (test code = ALT) IUnit/L 12-78 ALKALINE PHOSPHATASE TOTAL (test code = ALKP) IUnit/L 45-117 [id number] 06:31:00* Test Item Value Reference Range Interpretation Comments TROPONIN-I (test code = TROPI) ng/mL 0-0.045 [id number] 06:31:00* Test Item Value Reference Range Interpretation Comments ACETAMINOPHEN (test code = ACET) mcg/mL 10-30 [id number] 06:31:00* Test Item Value Reference Range Interpretation Comments SALICYLATE (test code = KAILEY) mg/dL 2.8-20.0 [id number] 06:31:00* Test Item Value Reference Range Interpretation Comments ALCOHOL (test code = ALC) mg/dL 0-3 CBC W/AUTO [id number] 06:21:00* Test Item Value Reference Range Interpretation Comments WHITE BLOOD CELL (test code = WBC) 4.9 K/mm3 4.5-12.5 N RED BLOOD CELL (test code = RBC) 4.39 mill/mm3 4.0-5.8 N HEMOGLOBIN (test code = HGB) 9.6 gram/dL 13.0-17.5 L HEMATOCRIT (test code = HCT) 32.8 % 42.0-52.0 L MEAN CELL VOLUME (test code = MCV) 74.7 fL 80-98 L MEAN CELL HGB (test code = MCH) 21.9 picogram 27.0-33.0 L MEAN CELL HGB CONCETRATION (test code = MCHC) 29.3 gram/dL 33.0-36. 0 L RED CELL DISTRIBUTION WIDTH (test code = RDW) 21.2 % 11.6-16. 2 H RED CELL DISTRIBUTION WIDTH SD (test code = RDW-SD) 55.2 fL 37 .0-51.0 H PLATELET COUNT (test code = PLT) 87 K/mm3 150-450 L MEAN PLATELET VOLUME (test code = MPV) TEST NOT PERFORMED fL 6.7-11 .0 NEUTROPHIL % (test code = NT%) 62.5 % 39.0-69.0 N IMMATURE GRANULOCYTE % (test code = IG%) 0.4 % 0.0-5.0 N LYMPHOCYTE % (test code = LY%) 20.5 % 25.0-55.0 L MONOCYTE % (test code = MO%) 10.1 % 0.0-10.0 H EOSINOPHIL % (test code = EO%) 5.7 % 0.0-5.0 H BASOPHIL % (test code = BA%) 0.8 % 0.0-1.0 N NUCLEATED RBC % (test code = NRBC%) 0.0 % 0-0 N NEUTROPHIL # (test code = NT#) 3.08 K/mm3 1.8-7.7 N IMMATURE GRANULOCYTE # (test code = IG#) 0.02 x10 3/uL 0-0.03 N LYMPHOCYTE # (test code = LY#) 1.01 K/mm3 1.0-5.0 N MONOCYTE # (test code = MO#) 0.50 K/mm3 0-0.8 N EOSINOPHIL # (test code = EO#) 0.28 K/mm3 0.0-0.5 N BASOPHIL # (test code = BA#) 0.04 K/mm3 0.0-0.2 N NUCLEATED RBC # (test code = NRBC#) 0.00 K/mm3 0.0-0.1 N MANUAL DIFF REQUIRED (test code = MDIFF) NO, ONLY SCAN NEEDED DIFFERENTIAL [id number] 06:21:00* Test Item Value Reference Range Interpretation Comments STAIN ACCEPTABILITY (test code = STN ACCEPTABLE) CABOT RINGS (test code = CAB) MORPHOLOGY COMMENT (test code = MOC) PLATELET ESTIMATE (test code = PLTEST) PLATELET MORPHOLOGY (test code = PLTMORPH) CBC W/AUTO [id number] 06:21:00* Test Item Value Reference Range Interpretation Comments WHITE BLOOD CELL (test code = WBC) 4.9 K/mm3 4.5-12.5 N RED BLOOD CELL (test code = RBC) 4.39 mill/mm3 4.0-5.8 N HEMOGLOBIN (test code = HGB) 9.6 gram/dL 13.0-17.5 L HEMATOCRIT (test code = HCT) 32.8 % 42.0-52.0 L MEAN CELL VOLUME (test code = MCV) 74.7 fL 80-98 L MEAN CELL HGB (test code = MCH) 21.9 picogram 27.0-33.0 L MEAN CELL HGB CONCETRATION (test code = MCHC) 29.3 gram/dL 33.0-36. 0 L RED CELL DISTRIBUTION WIDTH (test code = RDW) 21.2 % 11.6-16. 2 H RED CELL DISTRIBUTION WIDTH SD (test code = RDW-SD) 55.2 fL 37 .0-51.0 H PLATELET COUNT (test code = PLT) 87 K/mm3 150-450 L MEAN PLATELET VOLUME (test code = MPV) TEST NOT PERFORMED fL 6.7-11 .0 NEUTROPHIL % (test code = NT%) 62.5 % 39.0-69.0 N IMMATURE GRANULOCYTE % (test code = IG%) 0.4 % 0.0-5.0 N LYMPHOCYTE % (test code = LY%) 20.5 % 25.0-55.0 L MONOCYTE % (test code = MO%) 10.1 % 0.0-10.0 H EOSINOPHIL % (test code = EO%) 5.7 % 0.0-5.0 H BASOPHIL % (test code = BA%) 0.8 % 0.0-1.0 N NUCLEATED RBC % (test code = NRBC%) 0.0 % 0-0 N NEUTROPHIL # (test code = NT#) 3.08 K/mm3 1.8-7.7 N IMMATURE GRANULOCYTE # (test code = IG#) 0.02 x10 3/uL 0-0.03 N LYMPHOCYTE # (test code = LY#) 1.01 K/mm3 1.0-5.0 N MONOCYTE # (test code = MO#) 0.50 K/mm3 0-0.8 N EOSINOPHIL # (test code = EO#) 0.28 K/mm3 0.0-0.5 N BASOPHIL # (test code = BA#) 0.04 K/mm3 0.0-0.2 N NUCLEATED RBC # (test code = NRBC#) 0.00 K/mm3 0.0-0.1 N MANUAL DIFF REQUIRED (test code = MDIFF) NO, ONLY SCAN NEEDED DIFFERENTIAL [id number] 06:21:00* Test Item Value Reference Range Interpretation Comments STAIN ACCEPTABILITY (test code = STN ACCEPTABLE) MORPHOLOGY COMMENT (test code = MOC) PLATELET ESTIMATE (test code = PLTEST) PLATELET MORPHOLOGY (test code = PLTMORPH) CBC W/AUTO [id number] 06:21:00* Test Item Value Reference Range Interpretation Comments WHITE BLOOD CELL (test code = WBC) 4.9 K/mm3 4.5-12.5 N RED BLOOD CELL (test code = RBC) 4.39 mill/mm3 4.0-5.8 N HEMOGLOBIN (test code = HGB) 9.6 gram/dL 13.0-17.5 L HEMATOCRIT (test code = HCT) 32.8 % 42.0-52.0 L MEAN CELL VOLUME (test code = MCV) 74.7 fL 80-98 L MEAN CELL HGB (test code = MCH) 21.9 picogram 27.0-33.0 L MEAN CELL HGB CONCETRATION (test code = MCHC) 29.3 gram/dL 33.0-36. 0 L RED CELL DISTRIBUTION WIDTH (test code = RDW) 21.2 % 11.6-16. 2 H RED CELL DISTRIBUTION WIDTH SD (test code = RDW-SD) 55.2 fL 37 .0-51.0 H PLATELET COUNT (test code = PLT) 87 K/mm3 150-450 L MEAN PLATELET VOLUME (test code = MPV) TEST NOT PERFORMED fL 6.7-11 .0 NEUTROPHIL % (test code = NT%) 62.5 % 39.0-69.0 N IMMATURE GRANULOCYTE % (test code = IG%) 0.4 % 0.0-5.0 N LYMPHOCYTE % (test code = LY%) 20.5 % 25.0-55.0 L MONOCYTE % (test code = MO%) 10.1 % 0.0-10.0 H EOSINOPHIL % (test code = EO%) 5.7 % 0.0-5.0 H BASOPHIL % (test code = BA%) 0.8 % 0.0-1.0 N NUCLEATED RBC % (test code = NRBC%) 0.0 % 0-0 N NEUTROPHIL # (test code = NT#) 3.08 K/mm3 1.8-7.7 N IMMATURE GRANULOCYTE # (test code = IG#) 0.02 x10 3/uL 0-0.03 N LYMPHOCYTE # (test code = LY#) 1.01 K/mm3 1.0-5.0 N MONOCYTE # (test code = MO#) 0.50 K/mm3 0-0.8 N EOSINOPHIL # (test code = EO#) 0.28 K/mm3 0.0-0.5 N BASOPHIL # (test code = BA#) 0.04 K/mm3 0.0-0.2 N NUCLEATED RBC # (test code = NRBC#) 0.00 K/mm3 0.0-0.1 N MANUAL DIFF REQUIRED (test code = MDIFF) NO, ONLY SCAN NEEDED DIFFERENTIAL [id number] 06:21:00* Test Item Value Reference Range Interpretation Comments STAIN ACCEPTABILITY (test code = STN ACCEPTABLE) MORPHOLOGY COMMENT (test code = MOC) PLATELET ESTIMATE (test code = PLTEST) PLATELET MORPHOLOGY (test code = PLTMORPH) CBC W/AUTO [id number] 06:20:00* Test Item Value Reference Range Interpretation Comments WHITE BLOOD CELL (test code = WBC) 4.9 K/mm3 4.5-12.5 N RED BLOOD CELL (test code = RBC) 4.39 mill/mm3 4.0-5.8 N HEMOGLOBIN (test code = HGB) 9.6 gram/dL 13.0-17.5 L HEMATOCRIT (test code = HCT) 32.8 % 42.0-52.0 L MEAN CELL VOLUME (test code = MCV) 74.7 fL 80-98 L MEAN CELL HGB (test code = MCH) 21.9 picogram 27.0-33.0 L MEAN CELL HGB CONCETRATION (test code = MCHC) 29.3 gram/dL 33.0-36. 0 L RED CELL DISTRIBUTION WIDTH (test code = RDW) 21.2 % 11.6-16. 2 H RED CELL DISTRIBUTION WIDTH SD (test code = RDW-SD) 55.2 fL 37 .0-51.0 H PLATELET COUNT (test code = PLT) 87 K/mm3 150-450 L MEAN PLATELET VOLUME (test code = MPV) TEST NOT PERFORMED fL 6.7-11 .0 NEUTROPHIL % (test code = NT%) 62.5 % 39.0-69.0 N IMMATURE GRANULOCYTE % (test code = IG%) 0.4 % 0.0-5.0 N LYMPHOCYTE % (test code = LY%) 20.5 % 25.0-55.0 L MONOCYTE % (test code = MO%) 10.1 % 0.0-10.0 H EOSINOPHIL % (test code = EO%) 5.7 % 0.0-5.0 H BASOPHIL % (test code = BA%) 0.8 % 0.0-1.0 N NUCLEATED RBC % (test code = NRBC%) 0.0 % 0-0 N NEUTROPHIL # (test code = NT#) 3.08 K/mm3 1.8-7.7 N IMMATURE GRANULOCYTE # (test code = IG#) 0.02 x10 3/uL 0-0.03 N LYMPHOCYTE # (test code = LY#) 1.01 K/mm3 1.0-5.0 N MONOCYTE # (test code = MO#) 0.50 K/mm3 0-0.8 N EOSINOPHIL # (test code = EO#) 0.28 K/mm3 0.0-0.5 N BASOPHIL # (test code = BA#) 0.04 K/mm3 0.0-0.2 N NUCLEATED RBC # (test code = NRBC#) 0.00 K/mm3 0.0-0.1 N MANUAL DIFF REQUIRED (test code = MDIFF) NO, ONLY SCAN NEEDED DIFFERENTIAL [id number] 06:20:00* Test Item Value Reference Range Interpretation Comments STAIN ACCEPTABILITY (test code = STN ACCEPTABLE) CABOT RINGS (test code = CAB) MORPHOLOGY COMMENT (test code = MOC) PLATELET ESTIMATE (test code = PLTEST) PLATELET MORPHOLOGY (test code = PLTMORPH) - XR CHEST 1 [id number] 06:08:00 FAX: Lolis Parks DO [place]: B St: REG Name: JOCELIN CARROLL [facility] : [birth year]18 71 Age/S: 48/M [address] [facility] Unit #: [id number] Loc: [place] [address] Phys: Lolis Parks DO Acct: [id number] Dis Date: Status: REG ER PHONE #: [phone] Exam Date: 12/06/2018 0557 FAX #: [phone] Reason: Altered Mental Status EXAMS: CPT CODE: [id number] XR CHEST 1 V 07303 AFTER HOURS SERVICE ON: 12/06/2018 6:07 AM AP Portable Chest Location Code M12 HISTORY: Altered Mental Status FINDINGS: Ther e are no infiltrates. There are no pleural effusions. There is no pneumoth orax. Cardiac silhouette and mediastinum appear within normal limits. IMPRESSION: No active pulmonary findings. at 0608 Reported and signed by: Demetrius Payton M.D. CC: Lolis Parks DO Technologist: RT ALEXANDER Trnscrd Date/Time/By: 12/06/2018 (607) : By: Medhat [email or web address] Orig Print D/T: S: 12/06/2018 (610) PAG E 1 Signed Report CARDIAC [id number] 02:39:0028MH [facility] XIONIWI9211-49-16 02:39:00<0.02 [facility] ZTJMF2526-09-70 02:39:52427RF [facility] OCUXE1549-32-42 02:39:77580AY [facility] UHBNW5873-70-59 02:39:002.9 [facility] PANEL 2018-08-25 02:39:72746DI [facility] EXPWG7367-24-02 02:39:0028MH [facility] KVWAY0025-70-96 02:39:000.79MH [facility] FKBSK1076-36-55 02:39:00* Test Item Value Reference Range Interpretation Comments B/C Ratio (test code = B/C Ratio) 16 1 6-25 [facility] IYUMP4713-25-23 02:39:008.0 [facility] EZUKV9266-44-70 02:39:0089 [facility] PGNGN2530-48-57 02:39:000.6MH [facility] PANEL 2018-08-25 02:39:006.1MH [facility] [id number] 02:39:00* Test Item Value Reference Range Interpretation Comments A/G Ratio (test code = A/G Ratio) 0.3 1 0.7-1.6 [facility] UCGAQ0750-03-75 02:39:0026 [facility] KXNAD8833-37-14 02:39:0077 [facility] KQFFD3642-04-37 02:39:001.9 [facility] PANEL 2018-08-25 02:39:008.9[facility] IOKRA1127-88-17 02:39:007.9 [facility] NJREZ1138-83-21 02:[facility] PXDSD2448-39-01 02:39:0013[facility]CHE[facility] OQDCB7384-85-71 02:39:58962UL WxddnlfvmZTMLNYBVVW5939-55-51 02:39:000.2M VlbwyywgtFMYVGAOPUE1369-60-53 02:39:000.6M [facility]HEMATOLOGY 2018-08-25 02:39:001.2M ChziwpdfuJNOOLXHRFY0500-63-72 02:39:000.3M[facility] NFXGHDUPBJ6802-75-65 02:39:001.3MWest[facility] Healthcare HospitalGkvupirlbNPMGGWTQQV9754-98-13 02:39:001+ *ABN*(08/24/18 9:39 PM)[facility] SchoolYtggrblzqERTTOJHQWB0714-08-26 02:39:[address] [place] [address] GEEKQCBYTR5133-58-70 02:39:[address] [place], [place] [address]BejdldzvoVQXXRVSGPE8291-63-67 02:39:008.8[facility] SchoolCjllxjmbeOWLIKCWJEG7345-16-09 02:39:[address] [place], [place] [address]JbzpdbopdIPVKZWOICI2611-83-02 02:39:00* Test Item Value Reference Range Interpretation Comments PT (test code = PT) 14.7 s 12.0-14.7 [facility] SchoolAiqstgiifOHKKQYFYVI6600-47-16 02:39:00* Test Item Value Reference Range Interpretation Comments PTT (test code = PTT) 34.7 s 22.9-35.8 [facility] SchoolCmtljdxinXPGVQQFTQF9696-62-49 02:39:00* Test Item Value Reference Range Interpretation Comments INR (test code = INR) 1.17 1 0.85-1.17 ScxldzlrdJMXQGNAHQF9329-10-02 02:39:008.4 EutzedokvEZGACHXVQX0510-88-27 02:39:0076[facility] SchoolTjsqhtbywJVLLGMBQJO9926-17-54 02:39:0019.3M [facility] 2018-08-25 02:39:0025.7 KngenjsngLQBPJTLMXD2824-63-80 02:39:0078.5[facility] TWWUDMVITQ3909-23-97 02:39:0031.7 SevcivdukNCWOFNMAQC5720-25-65 02:39:00* Test Item Value Reference Range Interpretation Comments MCH (test code = MCH) 24.8 pg 27.0-31.0 NurnosrkySOVRYOKLSM6346-16-27 02:39:003.27 UwjrrlbdlDXMKKNMXXC5664-30-76 02:39:008.1MH KnsdcioeeQZQXFUACAV1853-60-75 02:39:002.3MH [facility]URINE AND MAEMA8973-18-43 09:25:00Negative (08/04/18 4:25 AM) [facility]BLOOD BANK RESULTS 2018-08-04 06:09:00Negative (08/04/18 1:09 AM) [facility]ARDIAC ENZYMES 2018-08-04 06:09:00<0.02 [facility] ZPHFS4376-69-18 06:09:89177PC [facility] YYNBR4598-58-11 06:09:000.2MH [facility] YCLZX1728-57-80 06:09:00* Test Item Value Reference Range Interpretation Comments A/G Ratio (test code = A/G Ratio) 0.3 1 0.7-1.6 [facility] XCGXK1768-39-44 06:09:005.8 [facility] SDPCB5736-88-32 06:09:000.3MH [facility] NPQNR6216-22-77 06:09:000.5 [facility] PANEL 2018-08-04 06:09:0077 [facility] BMSXO9145-43-32 06:09:0059 [facility] ZKGWF0360-54-25 06:09:0023 [facility] IHIPM3812-16-75 06:09:001.9 [facility] RGFXC3115-44-19 06:09:007.7 [facility] ZSVTR4893-71-90 06:09:001.6MH [facility] XVPQM6728-54-57 06:09:82154NX [facility] PANEL 2018-08-04 06:09:07733EZ [facility] WFHTZ1534-92-49 06:09:007.8 [facility] IRTGI3727-58-52 06:09:0024 [facility] XEUPS8091-77-29 06:09:92298GD [facility] UIKTU5059-87-61 06:09:003.3MWest[facility] HospitalCHEM MNFPX0493-83-32 06:09:0013[facility] SchoolCHEM XOZDJ2816-78-55 06:09:0099[facility] SchoolCHEM PANEL 2018-08-04 06:09:000.89[facility] SchoolCHE[facility] IPPIY0491-06-71 06:09:0013.3M[facility] DRUG GVIEGK3164-39-04 06:09:00Negative *NA*(08/04/18 1:09 AM) [facility]DR[facility] RHMDVX3735-19-49 06:09:00Negative *NA*(08/04/18 1:09 AM) [facility]DR[facility] SCREEN 2018-08-04 06:09:00Negative *NA*(08/04/18 1:09 AM) [facility] SCREEN 2018-08-04 06:09:00Positive *ABN*(08/04/18 1:09 AM) [facility] SCREEN 2018-08-04 06:09:00Negative *NA*(08/04/18 1:09 AM) [facility] SCREEN 2018-08-04 06:09:00Negative *NA*(08/04/18 1:09 AM) [facility]DR[facility] SCREEN 2018-08-04 06:09:00Negative *NA*(08/04/18 1:09 AM) [facility]DR[facility] SCREEN 2018-08-04 06:09:00See Note (08/04/18 1:09 AM) PhdoztqsrZTJLRRSICM7215-90-20 06:09:009.3M CizvsvwclAFVSTULOPB9063-66-18 06:09:001.1M [facility]HEMATOLOGY 2018-08-04 06:09:0010.6M DgudnjakxQYYJINQJYO9522-38-44 06:09:001.6M[facility] UNVNSQEOSZ3419-91-85 06:09:001.4 BwlqdtybsDFWFDQCXYB7111-55-24 06:09:000.4 ExelzdnjhZQYXWERDEQ5685-07-21 06:09:000.4 RjgjgxzxbYRAYHMVINR4255-16-63 06:09:0042.9 IwdwuvegbTHGLFOVLEI2801-71-26 06:09:0036.[facility] SoutheastHEMATOLOGY 2018-08-04 06:09:00* Test Item Value Reference Range Interpretation Comments PT (test code = PT) 14.2 s 12.0-14.7 IjechocuwABDLRYVAUD8527-03-28 06:09:00* Test Item Value Reference Range Interpretation Comments INR (test code = INR) 1.12 1 0.85-1.17 AgchfuvnsGNRKMEVVRM7389-14-37 06:09:00* Test Item Value Reference Range Interpretation Comments PTT (test code = PTT) 36.4 s 22.9-35.8 LzlqiaeoxXGXQVKJONA8854-22-76 06:09:008.3M GynsmusefSVCMZRCAFD9002-95-10 06:09:0078 ZqvtylykfUKVURKJTQR5454-50-11 06:09:0079.3M [facility]HEMATOLOGY 2018-08-04 06:09:00* Test Item Value Reference Range Interpretation Comments MCH (test code = MCH) 24.9 pg 27.0-31.0 VvcwdahepHDMPYENXIR0898-48-37 06:09:0031.4 PnfvegwyuWOTWEMSRFB7324-90-89 06:09:0018.5[facility] SchoolKiuqolmftQBDIQESOKJ8990-45-28 06:09:008.3M [facility]HEMATOLOGY 2018-08-04 06:09:003.8 ZexhnhlppKCKRDJCZER1935-70-77 06:09:003.34[facility] ANBKRFPNOF6633-05-49 06:09:0026.5 ZynrtlwlgBWOFQBDBYB4014-17-57 06:09:76078CS GxasdrmwbBDPYCXKEWC6261-62-43 06:09:000.362 [facility] AND HOIWB1570-97-09 06:09:00Large *ABN*(08/04/18 1:09 AM)MH [facility]UR[facility] AND SNPOO5857-08-80 06:09:00Negative (08/04/18 1:09 AM)MH [facility] XSAAS5387-71-70 06:09:00 5 [facility] AND GQWLN8000-83-51 06:09:0012 [facility] STOOL 2018-08-04 06:09:65578AX [facility] AND QIBML1643-62-92 06:09:00Negative (08/04/18 1:09 AM)MH [facility] AND WSIOO4386-17-11 06:09:00Negative *NA*(08/04/18 1:09 AM) [facility] WICIY3632-90-81 06:09:00* Test Item Value Reference Range Interpretation Comments UA Spec Grav (test code = UA Spec Grav) 1.013 1 MH [facility]UR[facility] AND ABERJ2593-31-04 06:09:00Clear (08/04/18 1:09 AM)MH [facility] AND EFZXC2320-20-81 06:09:00Yellow *NA*(08/04/18 1:09 AM) [facility]UR[facility] AND PFSOP0033-60-75 06:09:00* Test Item Value Reference Range Interpretation Comments UA pH (test code = UA pH) 6.0 1 5.0-8.0 [facility]CHEM HKYKH3301-20-97 08:02:001.7[facility] DZCFF0311-63-[address] Psychiatric CenterCHEM MVFLL2558-00-82 08:02:003.5 [facility]CHEM PANEL 2018-06-05 08:02:0026 [facility]CHEM MIEKM6982-27-11 08:02:95171TX [facility]landCHEM MRRCD9642-75-76 08:02:007.8 [facility]CHE[facility] VKJJQ8457-88-35 08:02:000.89 [facility]CHEM GROKH8705-55-60 08:02:08114ED [facility]landCHEM CVREO6775-05-65 08:02:00 91 [facility]landCHEM EWOYE6559-12-05 08:02:0011 [facility]CHEM MCYLZ2928-42-52 08:02:008.5 CqvdhqlgWDYNCWFRYO6774-22-54 08:02:0068 [facility]HEMATOLOGY 2018-06-05 08:02:009.5 QueefcqlHYWFEOKRAC2976-52-06 08:02:0084.3[facility] QPELVITPBK1330-88-41 08:02:0029.3M DtuzaywuAROXHVNYFF1915-47-11 08:02:0032.1M TxuzokxvLECPUTWWTZ3599-98-71 08:02:0020.5 FhbnpjxtIFTWNVWIJZ3682-19-83 08:02:00* Test Item Value Reference Range Interpretation Comments MCH (test code = MCH) 27.1 pg 27.0-31.0 ZmfmvxpaNBFTOSBXIZ3053-16-90 08:02:009.4MH LawxpqwrHFWRMTYCAR7286-37-85 08:02:003.0MH PexjktinKHFLLWBUGW0144-69-67 08:02:003.48MH [facility]landHEMATOLOGY 2018-06-05 08:02:0056.8MH PbfdntfzGRJMMLCATA3312-62-99 08:02:0018.1MH [place] BZHSUJKCRW0634-95-11 08:02:0017.9 PtgbnbloMTOJTZQYQN8095-90-58 08:02:006.5MH GtwizzywXGDJXAYGDZ1347-95-50 08:02:000.7MH KuscsogeNAWZOSKWGY8814-26-39 08:02:00 1.7MH TyptayovBFNRZGMDGE6427-23-60 08:02:000.2MH AkkqurbxNORCIJREUX8830-15-53 08:02:000.5MH PneemfxfLJYLNYFDNP8516-09-77 08:02:000.5MH [place]PARATHYROID DYGIRYF8538-67-55 22:55:001.06MH [place]PARATHYROID MHHESWB8160-11-32 22:55:00 1.07MH PearlandCHEM ZWPYZ1699-98-45 18:00:0069.0MH [place]landCHEM GDHQN7129-79-60 18:00:86963ZM [place]landCHEM LUVTX8684-26-75 18:00:008.3M PearlandCHEM PANEL 2018-06-04 18:00:0028MH [place]landCHEM JSGOB6808-62-52 18:00:006.9 [place]CHE[facility] AQAVX9611-08-58 18:00:29122SO [place]landCHEM IPCCL5169-99-86 18:00:000.83MH [place]landCHEM PWHSW6093-11-61 18:00:003.3MH [place]CHEM ZSGHM1604-88-91 18:00:00 109MH [place]landCHEM JNUIY7001-29-61 18:00:0011MH [place]landCHEM TSIDU5172-80-43 18:00:81448OY KgokpvsoMZIHXSJACR1811-05-76 18:00:008.8 [place]HEMATOLOGY 2018-06-04 18:00:0033.[address]DPQDVGBZ4273-46-[address] LZBXGXPIJM9756-19-69 18:[address] CenterRibvpcbvXLHLRICFGQ3784-09-94 18:00:0019.8[facility] HospitalFlahrjqoPXGYYVPJFD0831-11-44 18:00:00* Test Item Value Reference Range Interpretation Comments MCH (test code = MCH) 27.4 pg 27.0-31.[address] [facility] [address]JejzldbxGBOWCLRCVA2471-03-67 18:00:0051[facility] CenterUvekicwhACZTDCELFJ0549-87-35 18:00:002.3[facility] DillonZcdlfxcrSBWBKJEWIU1718-51-90 18:00:003.23[facility] HospitallandHEMATOLOGY 2018-06-04 18:00:009.1M LaokkvdcPMVSZYFTQK6491-98-58 18:00:0015.2[facility] OUJHKYLBQG8039-74-65 18:00:001.3[facility] DillonKllpbppiOSZGQUVUXG7179-19-53 18:00:[address] CenterFkffxnaePRECVUAWXB0510-04-07 18:00:006.1[facility] DillonLwirdpznWSSEJUHDUN7683-50-04 18:00:00 0.9[facility] HospitalMmauhpwgMFBBIYXCON6960-60-34 18:00:000.1[facility] DillonTtvysscsJDACKVFQMM7272-58-20 18:00:000.3[facility] DillonGsbfxdyhWBCPFEWYIU7649-29-65 18:00:0019.8[facility]allandHEMATOLOGY 2018-06-[address] 18:[address] CenterBODY FHUFZR4267-05-70 17:05:00Ascites *NA*(06/04/18 12:05 PM)[facility] SSXMXP4300-58-[address] BODY NJNGZW8529-35-31 17:05:00Moderate Cloudy *ABN*(06/04/18 12:05 PM)[facility] BODY QPRZJI7783-26-06 17:05:8[address]25DYBro[facility] Psych[facility] CenterBODY HKZGYA3241-01-04 17:05:00Red *ABN*(06/04/18 12:05 PM)[facility] Center[facility] GBWFXQ4043-66-77 [address] [address] [facility] B[facility] JGWNSO6541-14-86 17:05:00Ascites (06/04/18 12:05 PM)[facility] FLUIDS 2018-06-04 17:05:0019[facility] CenterB[facility] XSFNSX9874-86-97 17:05:000MH [place] ABZRRO1672-73-17 17:[address] [address] [facility] CenterB[facility] ZRDSJM1729-78-78 17:[address] Psychiatric CenterBODY GTEPDY1728-40-92 17:05:00Ascites *NA*(06/04/18 12:05 PM)[facility] BODY SIRLRQ0642-25-16 17:05:00Ascites *NA*(06/04/18 12:05 PM)[facility] CenterB[facility] PGJWZW3033-35-84 17:05:002.9[facility] HospitallandCHEM BCITH1784-97-50 19:58:38881.0[facility] HospitallandCHEM NPUKD8227-92-77 19:58:0073[facility] HospitallandCHEM PMAOE9001-87-22 19:58:00 29[facility]CHE[facility] DKFWM8787-21-66 19:58:77185DL [place]landCHEM YDNON5201-29-94 19:58:007.1MM[facility] DillonlandCHEM UMTMD9949-57-23 19:58:003.6MM[facility] Health DillonlandCHEM PANEL 2018-06-03 19:58:18682BC [place]landCHEM SFWVJ6846-68-41 19:58:87172YR PearlandCHEM MBEFH6098-20-03 19:58:0010[facility]allandCHEM VFYVC3263-50-30 19:58:001.18[facility]allandCHEM PBKTV9483-54-80 19:58:008.6MM[facility] DillonAlycxcqsGBSQKPNXST4143-63-59 19:58:00 9.4[facility] HospitalOlydtjutVJIWCJNOHP5403-94-55 19:58:0028.1[facility] DillonCzzgizzgNNFWGOSEUB8531-99-49 19:58:0082.2M AdzzuejkOJZNFJUYJI6563-11-56 19:58:00* Test Item Value Reference Range Interpretation Comments MCH (test code = MCH) 27.5 pg 27.0-31.0 [facility] HospitalFrcigxlcCAAKNHUVQE1648-26-99 19:58:0033.4[facility] HospitalTsnpcvioTZQDOKRRDS6654-35-99 19:58:0019.9[facility] HospitalRnesdhqeGSNBIVOHZY6050-79-30 19:58:003.2MM[facility] DillonlandHEMATOLOGY 2018-06-03 19:58:003.42[facility] HospitalOlklhshrOCTYSZWDCZ6095-96-13 19:58:[address] EIBPOVIMSJ0671-20-[address] 19:[address] [address] [facility] CenterAkpfvvszHZZKSXCQUD6305-96-68 19:58:002.0[facility] HospitalGjdhwtieJRTFTAJUJM3783-19-60 19:58:000.5[facility] HospitalYnjqmaptYBZPXPGLUE1108-29-93 19:58:00 0.4[facility] HospitalZmnycmfgIBSJNBVGQD3644-54-96 19:58:000.2MH WbvaeygqGPUNPHAWCV0624-84-[address] CenterQgehtqjwVVGVRPLFVN6707-65-[address] CenterHEMATOLOGY 2018-06-03 19:58:006.3[facility] HospitalBewbopovZFDTLKFRXQ1316-48-33 19:58:0064.6[facility] JACVBQXNFD6332-08-23 19:58:0014.7[facility] HospitalZdvchpktXZFXWXZUCE7207-76-76 19:58:001+ (06/03/18 2:58 PM)[facility] HospitalWknmstlkTOIWPISZXW4545-77-19 19:58:00Rare *ABN*(06/03/18 2:58 PM)[facility] HospitalLzvpvzlsRYHXEBVQUV5593-04-97 19:58:001+ *ABN*(06/03/18 2:58 PM)[facility] JNQFIDXYPQ6230-34-91 19:58:00Normal (06/03/18 2:58 PM)[facility] 2018-06-03 19:58:00See Note (06/03/18 2:58 PM)[facility] CenterPARATHYROID PROFILE 2018-06-[address] CenterPARATHYROID [id number] CenterANEM[facility] TBMTS4531-10-57 09:54:0057[facility] NHOCR0595-25-73 09:54:0044[facility]IA VQXYL0085-12-09 09:54:0014[facility]IA STUDY 2018-06-03 09:54[address] [facility] CenterANEMIA CHGBO0750-88-[address] [facility] SPECIAL EBFUVIHPH2453-32-34 09:54:000.09 [facility]OR IKHWGGS0879-44-57 09:54:003.3MH PearlandTUMOR OVJBXUY5802-94-23 09:54:005.0 [facility]landCHEM PANEL 2018-06-02 16:54:27099.0MH PearlandPARATHYROID HDUSQOD2295-31-04 16:54:000.95MH PearlandPARATHYROID TDENFWB1812-53-74 16:54:000.94 [facility]landCHEM PANEL 2018-06-02 10:44:001.2MH PearlandCHEM VECAE3990-94-[address] CenterCHE[facility] JDPFD8658-79-55 10:44:00* Test Item Value Reference Range Interpretation Comments B/C Ratio (test code = B/C Ratio) 15 1 6-[address] [facility]CHE[facility] [id number] 10:[address] CenterCHE[facility] FJNMK7526-89-31 10:44:[address] CenterCHE[facility] TOBCW0782-24-82 10:[address] CenterCHE[facility] PANEL 2018-06-02 10:44:0015[facility] CenterCHE[facility] YLSAD7718-27-40 10:44:00* Test Item Value Reference Range Interpretation Comments A/G Ratio (test code = A/G Ratio) 0.3 1 0.7-1.[address] [facility]CHE[facility] IUJRG6012-43-[address] [facility] CenterCHE[facility] ZDNGH0427-61-55 10:44:007.3[facility]CHE[facility] FZWZM9708-22-21 10:44:005.6[facility] HospitalHEMATOLOGY 2018-06-02 10:44:00* Test Item Value Reference Range Interpretation Comments INR (test code = INR) 1.34 1 0.85-1.[address] CenterVmjsdoqlOHDMRRMYJB8396-97-81 10:44:00* Test Item Value Reference Range Interpretation Comments PT (test code = PT) 16.3 s 12.0-14.[address] CenterYerhjbuxZMVLVPIDSK8652-60-70 10:44:00* Test Item Value Reference Range Interpretation Comments PTT (test code = PTT) 36.5 s 22.9-35.[address] [facility] CenterCHE[facility] BXPTY6436-70-21 02:13:001.1[facility] HospitalBL[facility] RESULTS 2018-06-02 01:02:00Negative (06/01/18 8:02 PM)[facility]landURINE AND STOOL 2018-06-01 21:22:00Positive *ABN*(06/01/18 4:22 PM)[facility] PANEL 2018-06-01 16:01:0049[facility] WIAQY7487-67-19 16:01:0015[facility] QGWSP4953-92-41 16:01:0074[facility] ZXUZT1658-77-50 16:01:001.2[facility] EWTBH0698-24-94 16:01:001.9[facility] ZLGDS3418-41-38 16:01:008.2[facility] ZYWMY5760-12-34 16:01:006.3[facility] SKPNL2984-16-94 16:01:00 * Test Item Value Reference Range Interpretation Comments A/G Ratio (test code = A/G Ratio) 0.3 1 0.7-1.6 [facility] TUQQL0344-06-06 16:01:00* Test Item Value Reference Range Interpretation Comments B/C Ratio (test code = B/C Ratio) 13 1 6-25 [facility]2019-03-22 16:01:83297KQDo[facility] SpringfieldUbnyuvgoPEPIVBDHVC4035-01-27 16:01:00* Test Item Value Reference Range Interpretation Comments INR (test code = INR) 1.18 1 0.85-1.17 [facility] SpringfieldSvuderzuPXBGUZYMAX1000-32-07 16:01:00* Test Item Value Reference Range Interpretation Comments PT (test code = PT) 14.8 s 12.0-14.7 [facility] SpringfieldJpnnfeupHLNUQJIUPM1258-76-70 16:01:00* Test Item Value Reference Range Interpretation Comments PTT (test code = PTT) 33.9 s 22.9-35.8 [facility] HWXQR4137-29-34 16:01:007 [facility] 2018-06-01 16:01:00Negative (06/01/18 11:01 AM) [facility] 2018-06-01 16:01:0097 [facility] [id number] 16:01:00Negative (06/01/18 11:01 AM)[facility] [id number] 16:01:00Large *ABN*(06/01/18 11:01 AM) [facility] [id number] 16:01:00* Test Item Value Reference Range Interpretation Comments UA Spec Grav (test code = UA Spec Grav) 1.020 1 [facility] AND [id number] 16:01:00Slight *ABN*(06/01/18 11:01 AM)[facility] AND [id number] 16:01:00Dark Yellow (06/01/18 11:01 AM)[facility] AND ZEXKM1290-31-24 16:01:00Negative *NA*(06/01/18 11:01 AM) [facility] [id number] 16:01:00Small *ABN*(06/01/18 11:01 AM) [facility] NKYCY8525-55-14 16:01:00* Test Item Value Reference Range Interpretation Comments UA pH (test code = UA pH) 6.0 1 5.0-8.0 [facility] [id number] 16:01:00Negative *NA*(06/01/18 11:01 AM)[facility] W/[id number] 18:57:00 Name: JOCELIN CORREA [facility] : 1970 Age/S: 48 / M [address] [facility] Unit #: [id number] Loc: [place] [address] Phys: Sanya Syed MD Acct: [id number] Dis Date: Status: REG ER PHONE #: [phone] Exam Date: 05/05/2018 3801 FAX #: [phone] Reason: abd pain EXAMS: CPT CODE: [id number] CT ABD PELVIS W/CONT 76225 HISTORY: Abdominal pain. COMPARISON: December 18, 2017. CT of abdomen and pelvis with IV contrast: 100 mL of Isovue-370. Automated exposure control CT of abdomen: The lung bases are clear. Hepatic parenchyma is enhancing homogeneously. The liver is small nodular shrunken consistent with cirrhosis. No discrete mass. Portal vein is patent. Gallbladder is without radiopaque stones. The spleen is not enlarged. No large varices. Stomach distended incompletely and is limited. No varices. Pancreas enhances homogeneously. Unremarkable adrenals. Kidneys are free from hydroureteronephrosis. Homogeneous enhancement. Punctate 1 to 2 mm left lower pole calyceal stone as well within the right interpolar region. Bilateral excretion is not seen likely due to timing of imaging. No pathologic adenopathy. Unremarkable well-opacified vasculature. No bowel obstruction or colitis. Mild thickening of the small bowel loops which could represent enteritis or this could represent sequela of moderate ascites. The large bowel is not thickened. CT PELVIS: Appendix is normal. Pelvic bowel loops are unobstructed. Moderate ascites. Urinary bladder is moderately distended. Prostate is not enlarged. No pelvic pathologic adenopathy. No free air or abscess. Subcutaneous tissues coursing mild gynecomastia bilaterally. No lytic or blastic lesions are noted within the bony skeleton. IMPRESSION: Cirrh otic liver with moderate ascites. No splenomegaly or large PAGE 1 Signed Report (CONTINUED) Name: JOCELIN CORREA [facility] : 1970 [age]/S: [age] / M [address] [facility] Unit #: [id number] Loc: [place] [address] Phys: Sanya Syed MD Acct: [id number] Dis Date: Status: REG ER PHONE #: [phone] Exam Date: 05/05/20181826 FAX #: [phone] Reason: abd pain EXAMS: CPT CODE: [id number] CT ABD PELVIS W/CONT 61221 <Continued> varices. No hydroureteronephrosis. Punctate bilateral 1 to 2 mm calyceal stones. Unremarkable well-distended urinary bladder. Mildly thickened small bowel loops which may represent enteritis or sequela of ascites. The large bowel is unremarkable. Appendix is normal. No abscess or free air. at 1857 Reported and signed by: Isaac Selby M.D. CC: Sanya Syed MD Technologist:Neisha Vega RT(R),CT CTDI: DLP: Trnscb Date/Time: 05/05/2018 (1856) [email or web address] Orig Print D/T: S: 05/05/2018 (190) CTDI: DLP: PAGE 2 Signed Report BASIC METABOLIC PANEL 2018-05-05 16:39:00* Test Item Value Reference Range Interpretation Comments SODIUM (test code = NA) 137 mmol/L 136-145 N POTASSIUM (test code = K) 3.4 mmol/L 3.5-5.1 L CHLORIDE (test code = CL) 101.0 mmol/L 98-107 N CARBON DIOXIDE (test code = CO2) 26.0 mmol/L 21-32 N ANION GAP (test code = GAP) 13.4 10-20 N GLUCOSE (test code = GLU) 90 mg/dL 74-106 N BLOOD UREA NITROGEN (test code = BUN) 9 mg/dL 7-18 N GLOMERULAR FILTRATION RATE (test code = GFR) > 60 mL/min >=60 Estimated GFR by using Modified MDRD formula.Chronic kidney disease is defined as either kidney damageor GFR <60 mL/min/1.73 m2 for >3 months. CREATININE (test code = CREAT) 1.00 mg/dL 0.7-1.3 N BUN/CREATININE RATIO (test code = BUN/CREA) 9.2 10-20 L CALCIUM (test code = CA) 8.1 mg/dL 8.5-10.1 L HEPATIC FUNCTION [id number] 16:39:00* Test Item Value Reference Range Interpretation Comments TOTAL PROTEIN (test code = PROT) 10.0 gram/dL 6.4-8.2 H ALBUMIN (test code = ALB) 2.2 g/dL 3.4-5.0 L GLOBULIN (test code = GLOB) 7.8 gram/dL 2.7-4.2 H ALBUMIN/GLOBULIN RATIO (test code = A/G) 0.3 0.75-1.50 L BILIRUBIN TOTAL (test code = BILT) 1.20 mg/dL 0.0-1.0 H BILIRUBIN DIRECT (test code = BILD) 0.63 mg/dL 0.0-0.20 H SGOT/AST (test code = AST) 90 IUnit/L 15-37 H SGPT/ALT (test code = ALT) 22 IUnit/L 12-78 N ALKALINE PHOSPHATASE TOTAL (test code = ALKP) 87 IUnit/L 45-117 N Note change in reference range due to change in reagent. [id number] 16:39:00* Test Item Value Reference Range Interpretation Comments LIPASE (test code = LIP) 72 U/L 73.0-393.0 L [id number] 16:39:00* Test Item Value Reference Range Interpretation Comments TROPONIN-I (test code = TROPI) <0.015 ng/mL 0-0.045 N [id number] 16:39:00* Test Item Value Reference Range Interpretation Comments ALCOHOL (test code = ALC) 296 mg/dL 0.0-3.0 H -- INTERPRETIVE DATA NOTE: POSITIVE SCREENING RESULTS SHOULD BE CONSIDERED PRESUMPTIVE.WHEN COLLECTED FOR MEDICAL PURPOSES ONLY. SPECIMEN WILL NOTBE COLLECTED BY CHAIN OF CUSTODY.IF A CONFIRMATION OF POSITIVE RESULTS IS DESIRED, ACONFIRMATION TEST MUST BE REQUESTED BY THE PHYSICIAN AT ANADDITIONAL CHARGE TO THE PATIENT. BASIC METABOLIC [id number] 16:30:00* Test Item Value Reference Range Interpretation Comments SODIUM (test code = NA) 137 mmol/L 136-145 N POTASSIUM (test code = K) 3.4 mmol/L 3.5-5.1 L CHLORIDE (test code = CL) 101.0 mmol/L 98-107 N CARBON DIOXIDE (test code = CO2) mmol/L 21-32 ANION GAP (test code = GAP) 10-20 GLUCOSE (test code = GLU) mg/dL 74-106 BLOOD UREA NITROGEN (test code = BUN) mg/dL 7-18 GLOMERULAR FILTRATION RATE (test code = GFR) mL/min >=60 CREATININE (test code = CREAT) mg/dL 0.7-1.3 BUN/CREATININE RATIO (test code = BUN/CREA) 10-20 CALCIUM (test code = CA) mg/dL 8.5-10.1 HEPATIC FUNCTION [id number] 16:30:00* Test Item Value Reference Range Interpretation Comments TOTAL PROTEIN (test code = PROT) gram/dL 6.4-8.2 ALBUMIN (test code = ALB) g/dL 3.4-5.0 GLOBULIN (test code = GLOB) gram/dL 2.7-4.2 ALBUMIN/GLOBULIN RATIO (test code = A/G) 0.75-1.50 BILIRUBIN TOTAL (test code = BILT) mg/dL 0.0-1.0 BILIRUBIN DIRECT (test code = BILD) mg/dL 0.0-0.20 SGOT/AST (test code = AST) IUnit/L 15-37 SGPT/ALT (test code = ALT) IUnit/L 12-78 ALKALINE PHOSPHATASE TOTAL (test code = ALKP) IUnit/L 45-117 [id number] 16:30:00* Test Item Value Reference Range Interpretation Comments LIPASE (test code = LIP) U/L 73.0-393.0 [id number] 16:30:00* Test Item Value Reference Range Interpretation Comments TROPONIN-I (test code = TROPI) ng/mL 0-0.045 [id number] 16:30:00* Test Item Value Reference Range Interpretation Comments ALCOHOL (test code = ALC) mg/dL 0-3 CBC W/O [id number] 16:10:00* Test Item Value Reference Range Interpretation Comments WHITE BLOOD CELL (test code = WBC) 3.8 K/mm3 4.5-12.5 L RED BLOOD CELL (test code = RBC) 3.80 mill/mm3 4.0-5.8 L HEMOGLOBIN (test code = HGB) 10.4 gram/dL 13.0-17.5 L HEMATOCRIT (test code = HCT) 32.3 % 42.0-52.0 L MEAN CELL VOLUME (test code = MCV) 85.0 fL 80-98 N MEAN CELL HGB (test code = MCH) 27.4 picogram 27.0-33.0 N MEAN CELL HGB CONCETRATION (test code = MCHC) 32.2 gram/dL 33.0-36. 0 L RED CELL DISTRIBUTION WIDTH (test code = RDW) 18.6 % 11.6-16. 2 H PLATELET COUNT (test code = PLT) 61 K/mm3 150-450 L MEAN PLATELET VOLUME (test code = MPV) 10.0 fL 6.7-11.0 N CARDIAC [id number] 23:31:00<0.02MH SoutheastCARDIAC MWJPWSI1214-74-62 23:31:0030MH SoutheastCHEM JCYBF0195-44-04 23:31:96998GW SoutheastCHEM PANEL 2018-04-18 23:31:009MH SoutheastCHEM SBXFV0892-25-29 23:31:000.78[facility] CHEM [id number] 23:31:0064 SoutheastCHEM SAQQH0020-01-75 23:31:000.4MH SoutheastCHEM OWYKG0060-21-93 23:31:0015 SoutheastCHEM QQSJP7280-03-07 23:31:003.7 SoutheastCHEM SMWRB3603-00-90 23:31:57687WR SoutheastCHEM PANEL 2018-04-18 23:31:80808YA SoutheastCHEM YQYUT2991-92-98 23:31:003.7 [facility] CHEM LKBNQ0822-49-01 23:31:007.5 SoutheastCHEM OURXY0210-59-69 23:31:008.7 [facility] [id number] 23:31:0027 [facility]ITALUYVAE7046-69-68 23:31:0019[facility]2019-02-06 23:31:0098 [facility]EL 2018-04-18 23:31:00* Test Item Value Reference Range Interpretation Comments B/C Ratio (test code = B/C Ratio) 12 1 6-25 [facility]2019-02-06 23:31:00* Test Item Value Reference Range Interpretation Comments A/G Ratio (test code = A/G Ratio) 1.0 1 0.7-1.6 [facility]2019-02-06 23:31:009.7[facility]2019-02-06 23:31:003.8[facility] HospitalJxmioxknwZTGFSYEMOPHH1442-91-30 23:31:009.7[facility]2019-02-06 23:31:00* Test Item Value Reference Range Interpretation Comments B/C Ratio (test code = B/C Ratio) 12 1 6-25 [facility] HospitalUtutdppmcDXUPDLXEHUIS5739-12-58 23:31:003.8[facility] HospitalHudirhtqoGIODGSAYYPTL9827-59-04 23:31:00* Test Item Value Reference Range Interpretation Comments A/G Ratio (test code = A/G Ratio) 1.0 1 0.7-1.6 [facility] HospitalFgywfuiwxPRWOLHSDUAEY4190-08-80 23:31:0098[facility] HospitalWzuiauikyIRTWPGGNLDNW5140-89-92 23:31:009MH StumpwjukGREJPUTTFQNR9856-41-30 23:31:000.78 SoutheastELECTROLYTES 2018-04-18 23:31:19921HI XxldlwkznZIJBGPEDQJQW0182-49-67 23:31:003.7 [facility] NPUKCTMROOND6309-12-31 23:31:12819AX KhydsyknqHVTKZKLOKWNX6097-55-46 23:31:0027 PpdlssfegDADUFYOFJLRM8641-07-52 23:31:008.7 FvcsvxospLROWLFIDHLUD1098-41-74 23:31:007.5 CmunthkeuDGOHLWTXHHZX4462-90-81 23:31:003.7 [facility] ADTDAHYVQTQB8328-08-39 23:31:0019 HojxikfqgGIIHESZNVFKW5718-35-86 23:31:0015 QobsgeleiZOPYABGZYLJO8421-07-02 23:31:0064 SqdoudqxuLLLBRXTZRYVI3658-78-48 23:31:000.4[facility] SchoolDfdxdkhbrGKGMWSKUBIXH0015-94-40 23:31:30093TB SoutheastHEMATOLOGY 2018-04-18 23:31:009.3M CawzulmjhFOKFGSPYOS8891-10-90 23:31:004.63[facility] SEEIIJVQFC9445-60-36 23:31:0014.2M AkhsatqlaXXFJQOQAIT5515-31-68 23:31:0041.6M DsfgpnzntKMELFECVIT4332-74-62 23:31:0089.8 LqgnlcszrOPAGRFXTEZ5351-31-13 23:31:00* Test Item Value Reference Range Interpretation Comments MCH (test code = MCH) 30.5 pg 27.0-31.0 StryaymevAVTPJJLHQJ1075-73-81 23:31:0034.0 OlhqoterwUFSJMAMHUR1144-35-78 23:31:0014.5 SyrshwsciHSDVPFTKSW3784-30-95 23:31:89591MY SoutheastHEMATOLOGY 2018-04-18 23:31:009.3M QzcxrgwjkRJYNWEBPAL9247-92-27 23:31:00* Test Item Value Reference Range Interpretation Comments INR (test code = INR) 1.05 1 0.85-1.17 AaxgnaxnqYIGCQEUFZV6499-62-46 23:31:00* Test Item Value Reference Range Interpretation Comments PT (test code = PT) 13.5 s 12.0-14.7 NaybwfhggFMKQPHTQYV9845-53-25 23:31:00* Test Item Value Reference Range Interpretation Comments PTT (test code = PTT) 29.1 s 22.9-35.8 AbsjtcsudWTLQIMFFWD4955-76-96 23:31:0069.7[facility] SchoolNqzclxhvqZRDZAKFKXT5680-36-84 23:31:0023.9[facility] SchoolKmajfnlllJLDBUMNIVK9457-14-17 23:31:004.6[facility] HospitalHE[facility]Y 2018-04-18 23:31:001.5 JzuitbsmqJOSNITLOIW9423-36-99 23:31:000.3MH [facility] RIJYYEMSYK1140-83-82 23:31:006.5[facility] SchoolJreojtznqGXYQTTWECD1615-14-42 23:31:002.2MWest[facility] HospitalUyplubqbkTVOAFIOJRB0627-20-16 23:31:000.4 MqyuihpdaDERAULPIST9729-51-15 23:31:000.1M SoutheastURINE AND PALKQ4842-75-53 23:31:00Clear (04/18/18 5:31 PM) SoutheastURINE AND BWQUX2738-07-19 23:31:00* Test Item Value Reference Range Interpretation Comments UA Spec Grav (test code = UA Spec Grav) 1.010 1 SoutheastURINE AND [id number] 23:31:00* Test Item Value Reference Range Interpretation Comments UA pH (test code = UA pH) 8.0 1 5.0-8.0 SoutheastURINE AND [id number] 23:31:00Negative (04/18/18 5:31 PM) SoutheastURINE AND FLSLV6661-09-07 23:31:00Negative *NA*(04/18/18 5:31 PM) SoutheastURINE AND AKFBK0069-30-57 23:31:00Negative *NA*(04/18/18 5:31 PM) SoutheastURINE AND [id number] 23:31:00Negative *NA*(04/18/18 5:31 PM) SoutheastURINE AND DJHOP2735-88-03 23:31:00Negative (04/18/18 5:31 PM) [facility] URINE AND VYWWQ8275-18-91 23:31:00Negative (04/18/18 5:31 PM) SoutheastURINE AND WVQAU6253-59-18 23:31:00Trace *ABN*(04/18/18 5:31 PM) SoutheastURINE AND STOOL 2018-04-18 23:31:006 SoutheastURINE AND VFCFZ4616-37-94 23:31:001[facility] URINE AND WOXCZ7828-94-15 23:31:006[facility] SchoolBASIC METABOLIC EIYPB0160-00-34 21:06:00* Test Item Value Reference Range Interpretation Comments SODIUM (test code = NA) 136 mmol/L 136-145 N POTASSIUM (test code = K) 3.4 mmol/L 3.5-5.1 L CHLORIDE (test code = CL) 98.0 mmol/L 98-107 N CARBON DIOXIDE (test code = CO2) 32.0 mmol/L 21-32 N ANION GAP (test code = GAP) 9.4 10-20 L GLUCOSE (test code = GLU) 92 mg/dL 74-106 N BLOOD UREA NITROGEN (test code = BUN) 13 mg/dL 7-18 N GLOMERULAR FILTRATION RATE (test code = GFR) > 60 mL/min >=60 Estimated GFR by using Modified MDRD formula.Chronic kidney disease is defined as either kidney damageor GFR <60 mL/min/1.73 m2 for >3 months. CREATININE (test code = CREAT) 0.90 mg/dL 0.7-1.3 N BUN/CREATININE RATIO (test code = BUN/CREA) 14.7 10-20 N CALCIUM (test code = CA) 8.1 mg/dL 8.5-10.1 L HEPATIC FUNCTION [id number] 21:06:00* Test Item Value Reference Range Interpretation Comments TOTAL PROTEIN (test code = PROT) 9.3 gram/dL 6.4-8.2 H ALBUMIN (test code = ALB) 2.1 g/dL 3.4-5.0 L GLOBULIN (test code = GLOB) 7.2 gram/dL 2.7-4.2 H ALBUMIN/GLOBULIN RATIO (test code = A/G) 0.3 0.75-1.50 L BILIRUBIN TOTAL (test code = BILT) 1.10 mg/dL 0.0-1.0 H BILIRUBIN DIRECT (test code = BILD) 0.57 mg/dL 0.0-0.20 H SGOT/AST (test code = AST) 66 IUnit/L 15-37 H SGPT/ALT (test code = ALT) 20 IUnit/L 12-78 N ALKALINE PHOSPHATASE TOTAL (test code = ALKP) 83 IUnit/L 45-117 N Note change in reference range due to change in reagent. [id number] 21:06:00* Test Item Value Reference Range Interpretation Comments MAGNESIUM (test code = MAG) 1.5 mg/dL 1.8-2.4 L BCIEYFCC-[id number] 21:06:00* Test Item Value Reference Range Interpretation Comments TROPONIN-I (test code = TROPI) <0.015 ng/mL 0-0.045 N PROTHROMBIN [id number] 20:45:00* Test Item Value Reference Range Interpretation Comments PROTHROMBIN TIME PATIENT (test code = PTP) 15.6 seconds 9.0-14.0 H INTERNATIONAL NORMAL RATIO (test code = INR) 1.3 0.8-1.2 H The therapeutic range for oral anticoagulant therapy formost indications is an international normalized ratio (INR)of between 2.0 and 3.0. The recommended therapeutic INRrange for various clinical situations is listed below: Clinical Situation INR range Pulmonary e mbolism treatment (2.0-3.0)Venous thrombosis treatmentVenous thrombosis prophylaxis (high risk surgery)Prevention of systemic embolism from: Acute myocardial infarction Valvular heart disease Atrial fibrillation Mechanical prosthetic heart valves (2.5-3.5) IS PATIENT ON ANTICOAGULANTS? NTHROMBOPLASTIN TIME [id number] 20:45:00* Test Item Value Reference Range Interpretation Comments THROMBOPLASTIN TIME PARTIAL (test code = PTT) 40.7 seconds 25.0-36. 5 H IS PATIENT ON ANTICOAGULANTS? NBASIC METABOLIC [id number] 20:40:00* Test Item Value Reference Range Interpretation Comments SODIUM (test code = NA) 136 mmol/L 136-145 N POTASSIUM (test code = K) 3.4 mmol/L 3.5-5.1 L CHLORIDE (test code = CL) 98.0 mmol/L 98-107 N CARBON DIOXIDE (test code = CO2) mmol/L 21-32 ANION GAP (test code = GAP) 10-20 GLUCOSE (test code = GLU) mg/dL 74-106 BLOOD UREA NITROGEN (test code = BUN) mg/dL 7-18 GLOMERULAR FILTRATION RATE (test code = GFR) mL/min >=60 CREATININE (test code = CREAT) mg/dL 0.7-1.3 BUN/CREATININE RATIO (test code = BUN/CREA) 10-20 CALCIUM (test code = CA) mg/dL 8.5-10.1 HEPATIC FUNCTION [id number] 20:40:00* Test Item Value Reference Range Interpretation Comments TOTAL PROTEIN (test code = PROT) gram/dL 6.4-8.2 ALBUMIN (test code = ALB) g/dL 3.4-5.0 GLOBULIN (test code = GLOB) gram/dL 2.7-4.2 ALBUMIN/GLOBULIN RATIO (test code = A/G) 0.75-1.50 BILIRUBIN TOTAL (test code = BILT) mg/dL 0.0-1.0 BILIRUBIN DIRECT (test code = BILD) mg/dL 0.0-0.20 SGOT/AST (test code = AST) IUnit/L 15-37 SGPT/ALT (test code = ALT) IUnit/L 12-78 ALKALINE PHOSPHATASE TOTAL (test code = ALKP) IUnit/L 45-117 [id number] 20:40:00* Test Item Value Reference Range Interpretation Comments MAGNESIUM (test code = MAG) mg/dL 1.8-2.4 GIPYTREL-[id number] 20:40:00* Test Item Value Reference Range Interpretation Comments TROPONIN-I (test code = TROPI) ng/mL 0-0.045 CBC W/O [id number] 20:37:00* Test Item Value Reference Range Interpretation Comments WHITE BLOOD CELL (test code = WBC) 3.5 K/mm3 4.5-12.5 L RED BLOOD CELL (test code = RBC) 3.75 mill/mm3 4.0-5.8 L HEMOGLOBIN (test code = HGB) 10.2 gram/dL 13.0-17.5 L HEMATOCRIT (test code = HCT) 32.7 % 42.0-52.0 L MEAN CELL VOLUME (test code = MCV) 87.2 fL 80-98 N MEAN CELL HGB (test code = MCH) 27.2 picogram 27.0-33.0 N MEAN CELL HGB CONCETRATION (test code = MCHC) 31.2 gram/dL 33.0-36. 0 L RED CELL DISTRIBUTION WIDTH (test code = RDW) 18.3 % 11.6-16. 2 H PLATELET COUNT (test code = PLT) 76 K/mm3 150-450 L MEAN PLATELET VOLUME (test code = MPV) 10.6 fL 6.7-11.0 N - CT HEAD/BRAIN W/O [id number] 20:09:00 Name: JOCELIN CORREA [facility] : 1970 Age/S: 48 / M [address] [facility] Unit #: [id number] Loc: [place] [address] Phys: MARYAN ROBERTS MD Acct: [id number] Dis Date: Status: REG ER PHONE #: [phone] Exam Date: 04/18/20182007 FAX #: [phone] Reason: fall, head trauma, blood in ear EXAMS: CPT CODE: [id number] CT HEAD/BRAIN W/O CONT 17102 REASON FOR EXAM: fall, head trauma, blood in ear EXAM ORDER DATE: 04/18/2018 7:49 PM Ordering M.Emilee: MARYAN ROBERTS MD PROCEDURE: - CT HEAD/BRAIN W/O CONT COMPARISON: FINDINGS: CT images of the brain were obtained without IV contrast. Dose reduction techniques were applied. The brain parenchyma is within normal limits. The rahman-white matter delineation is unremarkable. The ventricles, cisterns, and sulci are unremarkable. There is no evidence of hemorrhage, mass, mass effect. There is no evidence of acute or old infarct. The calvarium is intact. IMPRESSION: Unremarkable brain. at 2009 Reported and signed by: Yuval Multani M.D. CC: MARYAN ROBERTS MD Technologist:ELIAZAR MERCEDES, RT(R) CT CTDI: DLP: Trnscb Date/Time: 04/18/2018 (2008) Matthew.VTL Orig Print D/T: S: 04/18/2018 (2012) CTDI: DLP: PAGE 1 Signed Report - US ABDOMEN [id number] 07:09:00 Name: CHELLY CORREA [facility] : 1970 Age/S: 48 / M [address] Unit #: [id number] Loc: [place] [address] Phys: Giovanna Rees MD Acct: [id number] Dis Date: Status: ADM IN PHONE #: [phone] Exam Date: 04/09/201826 FAX #: [phone] Reason: abd pain. evaluate lesion in ascites EXAMS: CPT CODE: [id number] US ABDOMEN COMPLETE [id number] REASON FOR EXAM: abd pain. evaluate lesion in ascites EXAM ORDER DATE: 04/09/2018 3:50 PM Attending Jennifer: Giovanna Rees MD PROCEDURE: - US ABDOMEN COMPLETE FINDINGS: The liver is echogenic and nodular in contour. There is no evidence of focal mass identified. The pancreas is within normal limits. The right kidney measures 12.4 x 5.2 cm. The left kidney measures 10.4 x 6 cm. There is no evidence of hydronephrosis. There is no evidence of nephrolithiasis. There is no evidence of renal mass. The spleen measures 13.2 cm. The gallbladder is partially contracted without evidence of gallstone. The common bile duct measures 0.2 cm The aorta and IVC are within normal limits. The portal vein is patent with hepatopetal flow IMPRESSION: Cirrhosis of the liver and enlarged spleen suggestive of portal hypertension. Mild ascites. No evidence of mesenteric mass noted on ultrasound (the questionable lesion in the low pelvis not seen) at 0709 Reported and signed by: Yuval Multani M.D. CC: Giovanna Rees MD Technologist: GAIL SHIPLEY RDMS Trnscb Date/Time: 04/10/2018 (0709) ThanhVTL Orig Print D/T: S: 04/10/2018 (0712) Probe: PAGE 1 Signed Report CBC W/AUTO [id number] 06:40:00* Test Item Value Reference Range Interpretation Comments WHITE BLOOD CELL (test code = WBC) 3.1 K/mm3 4.5-12.5 L RED BLOOD CELL (test code = RBC) 3.08 mill/mm3 4.0-5.8 L HEMOGLOBIN (test code = HGB) 8.4 gram/dL 13.0-17.5 L HEMATOCRIT (test code = HCT) 28.6 % 42.0-52.0 L MEAN CELL VOLUME (test code = MCV) 92.9 fL 80-98 N MEAN CELL HGB (test code = MCH) 27.3 picogram 27.0-33.0 N MEAN CELL HGB CONCETRATION (test code = MCHC) 29.4 gram/dL 33.0-36. 0 L RED CELL DISTRIBUTION WIDTH (test code = RDW) 19.1 % 11.6-16. 2 H RED CELL DISTRIBUTION WIDTH SD (test code = RDW-SD) 64.0 fL 37 .0-51.0 H PLATELET COUNT (test code = PLT) 51 K/mm3 150-450 L MEAN PLATELET VOLUME (test code = MPV) 11.4 fL 6.7-11.0 H NEUTROPHIL % (test code = NT%) 54.9 % 39.0-69.0 N IMMATURE GRANULOCYTE % (test code = IG%) 0.3 % 0.0-5.0 N LYMPHOCYTE % (test code = LY%) 22.3 % 25.0-55.0 L MONOCYTE % (test code = MO%) 11.9 % 0.0-10.0 H EOSINOPHIL % (test code = EO%) 10.0 % 0.0-5.0 H BASOPHIL % (test code = BA%) 0.6 % 0.0-1.0 N NUCLEATED RBC % (test code = NRBC%) 0.0 % 0-0 N NEUTROPHIL # (test code = NT#) 1.70 K/mm3 1.8-7.7 L IMMATURE GRANULOCYTE # (test code = IG#) 0.01 x10 3/uL 0-0.03 N LYMPHOCYTE # (test code = LY#) 0.69 K/mm3 1.0-5.0 L MONOCYTE # (test code = MO#) 0.37 K/mm3 0-0.8 N EOSINOPHIL # (test code = EO#) 0.31 K/mm3 0.0-0.5 N BASOPHIL # (test code = BA#) 0.02 K/mm3 0.0-0.2 N NUCLEATED RBC # (test code = NRBC#) 0.00 K/mm3 0.0-0.1 N MANUAL DIFF REQUIRED (test code = MDIFF) NO, ONLY SCAN NEEDED DIFFERENTIAL [id number] 06:40:00* Test Item Value Reference Range Interpretation Comments STAIN ACCEPTABILITY (test code = STN ACCEPTABLE) STAIN ACCEPTABLE POLYCHROMASIA (test code = POLC) 2+ ANISOCYTOSIS (test code = ANISO) 2+ MACROCYTOSIS (test code = MACR) 2+ PLATELET ESTIMATE (test code = PLTEST) DECREASED PLATELET MORPHOLOGY (test code = PLTMORPH) NORMAL BASIC METABOLIC [id number] 06:20:00* Test Item Value Reference Range Interpretation Comments SODIUM (test code = NA) 136 mmol/L 136-145 N POTASSIUM (test code = K) 3.6 mmol/L 3.5-5.1 N CHLORIDE (test code = CL) 103.0 mmol/L 98-107 N CARBON DIOXIDE (test code = CO2) 27.0 mmol/L 21-32 N ANION GAP (test code = GAP) 9.6 10-20 L GLUCOSE (test code = GLU) 84 mg/dL 74-106 N BLOOD UREA NITROGEN (test code = BUN) 10 mg/dL 7-18 N GLOMERULAR FILTRATION RATE (test code = GFR) > 60 mL/min >=60 Estimated GFR by using Modified MDRD formula.Chronic kidney disease is defined as either kidney damageor GFR <60 mL/min/1.73 m2 for >3 months. CREATININE (test code = CREAT) 0.80 mg/dL 0.7-1.3 N BUN/CREATININE RATIO (test code = BUN/CREA) 12.0 10-20 N CALCIUM (test code = CA) 7.8 mg/dL 8.5-10.1 L [id number] 06:20:00* Test Item Value Reference Range Interpretation Comments MAGNESIUM (test code = MAG) 1.4 mg/dL 1.8-2.4 L CBC W/AUTO [id number] 06:17:00* Test Item Value Reference Range Interpretation Comments WHITE BLOOD CELL (test code = WBC) 3.1 K/mm3 4.5-12.5 L RED BLOOD CELL (test code = RBC) 3.08 mill/mm3 4.0-5.8 L HEMOGLOBIN (test code = HGB) 8.4 gram/dL 13.0-17.5 L HEMATOCRIT (test code = HCT) 28.6 % 42.0-52.0 L MEAN CELL VOLUME (test code = MCV) 92.9 fL 80-98 N MEAN CELL HGB (test code = MCH) 27.3 picogram 27.0-33.0 N MEAN CELL HGB CONCETRATION (test code = MCHC) 29.4 gram/dL 33.0-36. 0 L RED CELL DISTRIBUTION WIDTH (test code = RDW) 19.1 % 11.6-16. 2 H RED CELL DISTRIBUTION WIDTH SD (test code = RDW-SD) 64.0 fL 37 .0-51.0 H PLATELET COUNT (test code = PLT) 51 K/mm3 150-450 L MEAN PLATELET VOLUME (test code = MPV) 11.4 fL 6.7-11.0 H NEUTROPHIL % (test code = NT%) 54.9 % 39.0-69.0 N IMMATURE GRANULOCYTE % (test code = IG%) 0.3 % 0.0-5.0 N LYMPHOCYTE % (test code = LY%) 22.3 % 25.0-55.0 L MONOCYTE % (test code = MO%) 11.9 % 0.0-10.0 H EOSINOPHIL % (test code = EO%) 10.0 % 0.0-5.0 H BASOPHIL % (test code = BA%) 0.6 % 0.0-1.0 N NUCLEATED RBC % (test code = NRBC%) 0.0 % 0-0 N NEUTROPHIL # (test code = NT#) 1.70 K/mm3 1.8-7.7 L IMMATURE GRANULOCYTE # (test code = IG#) 0.01 x10 3/uL 0-0.03 N LYMPHOCYTE # (test code = LY#) 0.69 K/mm3 1.0-5.0 L MONOCYTE # (test code = MO#) 0.37 K/mm3 0-0.8 N EOSINOPHIL # (test code = EO#) 0.31 K/mm3 0.0-0.5 N BASOPHIL # (test code = BA#) 0.02 K/mm3 0.0-0.2 N NUCLEATED RBC # (test code = NRBC#) 0.00 K/mm3 0.0-0.1 N MANUAL DIFF REQUIRED (test code = MDIFF) NO, ONLY SCAN NEEDED DIFFERENTIAL [id number] 06:17:00* Test Item Value Reference Range Interpretation Comments STAIN ACCEPTABILITY (test code = STN ACCEPTABLE) CABOT RINGS (test code = CAB) MORPHOLOGY COMMENT (test code = MOC) PLATELET ESTIMATE (test code = PLTEST) PLATELET MORPHOLOGY (test code = PLTMORPH) CBC W/AUTO [id number] 06:17:00* Test Item Value Reference Range Interpretation Comments WHITE BLOOD CELL (test code = WBC) 3.1 K/mm3 4.5-12.5 L RED BLOOD CELL (test code = RBC) 3.08 mill/mm3 4.0-5.8 L HEMOGLOBIN (test code = HGB) 8.4 gram/dL 13.0-17.5 L HEMATOCRIT (test code = HCT) 28.6 % 42.0-52.0 L MEAN CELL VOLUME (test code = MCV) 92.9 fL 80-98 N MEAN CELL HGB (test code = MCH) 27.3 picogram 27.0-33.0 N MEAN CELL HGB CONCETRATION (test code = MCHC) 29.4 gram/dL 33.0-36. 0 L RED CELL DISTRIBUTION WIDTH (test code = RDW) 19.1 % 11.6-16. 2 H RED CELL DISTRIBUTION WIDTH SD (test code = RDW-SD) 64.0 fL 37 .0-51.0 H PLATELET COUNT (test code = PLT) 51 K/mm3 150-450 L MEAN PLATELET VOLUME (test code = MPV) 11.4 fL 6.7-11.0 H NEUTROPHIL % (test code = NT%) 54.9 % 39.0-69.0 N IMMATURE GRANULOCYTE % (test code = IG%) 0.3 % 0.0-5.0 N LYMPHOCYTE % (test code = LY%) 22.3 % 25.0-55.0 L MONOCYTE % (test code = MO%) 11.9 % 0.0-10.0 H EOSINOPHIL % (test code = EO%) 10.0 % 0.0-5.0 H BASOPHIL % (test code = BA%) 0.6 % 0.0-1.0 N NUCLEATED RBC % (test code = NRBC%) 0.0 % 0-0 N NEUTROPHIL # (test code = NT#) 1.70 K/mm3 1.8-7.7 L IMMATURE GRANULOCYTE # (test code = IG#) 0.01 x10 3/uL 0-0.03 N LYMPHOCYTE # (test code = LY#) 0.69 K/mm3 1.0-5.0 L MONOCYTE # (test code = MO#) 0.37 K/mm3 0-0.8 N EOSINOPHIL # (test code = EO#) 0.31 K/mm3 0.0-0.5 N BASOPHIL # (test code = BA#) 0.02 K/mm3 0.0-0.2 N NUCLEATED RBC # (test code = NRBC#) 0.00 K/mm3 0.0-0.1 N MANUAL DIFF REQUIRED (test code = MDIFF) NO, ONLY SCAN NEEDED DIFFERENTIAL [id number] 06:17:00* Test Item Value Reference Range Interpretation Comments STAIN ACCEPTABILITY (test code = STN ACCEPTABLE) CABOT RINGS (test code = CAB) MORPHOLOGY COMMENT (test code = MOC) PLATELET ESTIMATE (test code = PLTEST) PLATELET MORPHOLOGY (test code = PLTMORPH) CBC W/AUTO [id number] 06:17:00* Test Item Value Reference Range Interpretation Comments WHITE BLOOD CELL (test code = WBC) 3.1 K/mm3 4.5-12.5 L RED BLOOD CELL (test code = RBC) 3.08 mill/mm3 4.0-5.8 L HEMOGLOBIN (test code = HGB) 8.4 gram/dL 13.0-17.5 L HEMATOCRIT (test code = HCT) 28.6 % 42.0-52.0 L MEAN CELL VOLUME (test code = MCV) 92.9 fL 80-98 N MEAN CELL HGB (test code = MCH) 27.3 picogram 27.0-33.0 N MEAN CELL HGB CONCETRATION (test code = MCHC) 29.4 gram/dL 33.0-36. 0 L RED CELL DISTRIBUTION WIDTH (test code = RDW) 19.1 % 11.6-16. 2 H RED CELL DISTRIBUTION WIDTH SD (test code = RDW-SD) 64.0 fL 37 .0-51.0 H PLATELET COUNT (test code = PLT) 51 K/mm3 150-450 L MEAN PLATELET VOLUME (test code = MPV) 11.4 fL 6.7-11.0 H NEUTROPHIL % (test code = NT%) 54.9 % 39.0-69.0 N IMMATURE GRANULOCYTE % (test code = IG%) 0.3 % 0.0-5.0 N LYMPHOCYTE % (test code = LY%) 22.3 % 25.0-55.0 L MONOCYTE % (test code = MO%) 11.9 % 0.0-10.0 H EOSINOPHIL % (test code = EO%) 10.0 % 0.0-5.0 H BASOPHIL % (test code = BA%) 0.6 % 0.0-1.0 N NUCLEATED RBC % (test code = NRBC%) 0.0 % 0-0 N NEUTROPHIL # (test code = NT#) 1.70 K/mm3 1.8-7.7 L IMMATURE GRANULOCYTE # (test code = IG#) 0.01 x10 3/uL 0-0.03 N LYMPHOCYTE # (test code = LY#) 0.69 K/mm3 1.0-5.0 L MONOCYTE # (test code = MO#) 0.37 K/mm3 0-0.8 N EOSINOPHIL # (test code = EO#) 0.31 K/mm3 0.0-0.5 N BASOPHIL # (test code = BA#) 0.02 K/mm3 0.0-0.2 N NUCLEATED RBC # (test code = NRBC#) 0.00 K/mm3 0.0-0.1 N MANUAL DIFF REQUIRED (test code = MDIFF) NO, ONLY SCAN NEEDED DIFFERENTIAL [id number] 06:17:00* Test Item Value Reference Range Interpretation Comments STAIN ACCEPTABILITY (test code = STN ACCEPTABLE) MORPHOLOGY COMMENT (test code = MOC) PLATELET ESTIMATE (test code = PLTEST) PLATELET MORPHOLOGY (test code = PLTMORPH) CBC W/AUTO [id number] 06:17:00* Test Item Value Reference Range Interpretation Comments WHITE BLOOD CELL (test code = WBC) 3.1 K/mm3 4.5-12.5 L RED BLOOD CELL (test code = RBC) 3.08 mill/mm3 4.0-5.8 L HEMOGLOBIN (test code = HGB) 8.4 gram/dL 13.0-17.5 L HEMATOCRIT (test code = HCT) 28.6 % 42.0-52.0 L MEAN CELL VOLUME (test code = MCV) 92.9 fL 80-98 N MEAN CELL HGB (test code = MCH) 27.3 picogram 27.0-33.0 N MEAN CELL HGB CONCETRATION (test code = MCHC) 29.4 gram/dL 33.0-36. 0 L RED CELL DISTRIBUTION WIDTH (test code = RDW) 19.1 % 11.6-16. 2 H RED CELL DISTRIBUTION WIDTH SD (test code = RDW-SD) 64.0 fL 37 .0-51.0 H PLATELET COUNT (test code = PLT) 51 K/mm3 150-450 L MEAN PLATELET VOLUME (test code = MPV) 11.4 fL 6.7-11.0 H NEUTROPHIL % (test code = NT%) 54.9 % 39.0-69.0 N IMMATURE GRANULOCYTE % (test code = IG%) 0.3 % 0.0-5.0 N LYMPHOCYTE % (test code = LY%) 22.3 % 25.0-55.0 L MONOCYTE % (test code = MO%) 11.9 % 0.0-10.0 H EOSINOPHIL % (test code = EO%) 10.0 % 0.0-5.0 H BASOPHIL % (test code = BA%) 0.6 % 0.0-1.0 N NUCLEATED RBC % (test code = NRBC%) 0.0 % 0-0 N NEUTROPHIL # (test code = NT#) 1.70 K/mm3 1.8-7.7 L IMMATURE GRANULOCYTE # (test code = IG#) 0.01 x10 3/uL 0-0.03 N LYMPHOCYTE # (test code = LY#) 0.69 K/mm3 1.0-5.0 L MONOCYTE # (test code = MO#) 0.37 K/mm3 0-0.8 N EOSINOPHIL # (test code = EO#) 0.31 K/mm3 0.0-0.5 N BASOPHIL # (test code = BA#) 0.02 K/mm3 0.0-0.2 N NUCLEATED RBC # (test code = NRBC#) 0.00 K/mm3 0.0-0.1 N MANUAL DIFF REQUIRED (test code = MDIFF) NO, ONLY SCAN NEEDED DIFFERENTIAL [id number] 06:17:00* Test Item Value Reference Range Interpretation Comments STAIN ACCEPTABILITY (test code = STN ACCEPTABLE) CABOT RINGS (test code = CAB) MORPHOLOGY COMMENT (test code = MOC) PLATELET ESTIMATE (test code = PLTEST) PLATELET MORPHOLOGY (test code = PLTMORPH) BASIC METABOLIC [id number] 06:12:00* Test Item Value Reference Range Interpretation Comments SODIUM (test code = NA) 136 mmol/L 136-145 N POTASSIUM (test code = K) 3.6 mmol/L 3.5-5.1 N CHLORIDE (test code = CL) 103.0 mmol/L 98-107 N CARBON DIOXIDE (test code = CO2) mmol/L 21-32 ANION GAP (test code = GAP) 10-20 GLUCOSE (test code = GLU) mg/dL 74-106 BLOOD UREA NITROGEN (test code = BUN) mg/dL 7-18 GLOMERULAR FILTRATION RATE (test code = GFR) mL/min >=60 CREATININE (test code = CREAT) mg/dL 0.7-1.3 BUN/CREATININE RATIO (test code = BUN/CREA) 10-20 CALCIUM (test code = CA) mg/dL 8.5-10.1 [id number] 06:12:00* Test Item Value Reference Range Interpretation Comments MAGNESIUM (test code = MAG) mg/dL 1.8-2.4 PROTHROMBIN [id number] 06:12:00* Test Item Value Reference Range Interpretation Comments PROTHROMBIN TIME PATIENT (test code = PTP) 16.0 seconds 9.0-14.0 H INTERNATIONAL NORMAL RATIO (test code = INR) 1.3 0.8-1.2 H The therapeutic range for oral anticoagulant therapy formost indications is an international normalized ratio (INR)of between 2.0 and 3.0. The recommended therapeutic INRrange for various clinical situations is listed below: Clinical Situation INR range Pulmonary e mbolism treatment (2.0-3.0)Venous thrombosis treatmentVenous thrombosis prophylaxis (high risk surgery)Prevention of systemic embolism from: Acute myocardial infarction Valvular heart disease Atrial fibrillation Mechanical prosthetic heart valves (2.5-3.5) IS PATIENT ON ANTICOAGULANTS? N- CT ABD PELVIS [id number] 13:44:00 Name: CHELLY CORREA [facility] : 1970 Age/S: 48 / M [address] [facility] Unit #: [id number] Loc: LarsCONNIE [address] Phys: Fransisco Valdez MD Acct: [id number] Di s Date: Status: REG ER PHONE #: Exam Date: 04/09/2018 1317 FAX #: [phone] Reason: upper abd pain EXAMS: CPT CODE: [id number] CT ABD PELVIS W/CONT 23904 EXAM: CT of the abdomen a nd pelvis with contrast; INFORMATION: Abdominal pain and distentio n, cirrhosis; TECHNIQUE AND FINDINGS: CT dose reduction prot ocol; 5 mm cuts through the abdomen and pelvis during and after intravenou s infusion of contrast material. There is a large amount of ascites. Liver shows a nodular surface; no focal lesions. No abnormalities o f the biliary system. Pancreas and adrenal glands are unremarkable. The spleen is moderately enlarged and without focal lesions. The kidneys o f normal size and shape; they show dense parenchymal enhancement; no hydro nephrosis. Previously seen dilatation of small bowel loops has resolved. O n today's study bowel loops are of normal caliber and there is no ev idence of acute bowel abnormalities. There are low density lesions within ascites fluid in the pelvis, above the urinary bladder. No pelvic mass les ions. Scans through the lung bases show a minimal right pleural effusion a nd basilar atelectasis in both lower lobes. IMPRESSION: 1. Cirrhotic liver with splenomegaly and ascites. 2. No evidence o f bowel obstruction or other acute abnormalities. 3. There are subtle de nsities protruding into the ascites fluid in the lower pelvis. The signi ficance is not clear it could present blood clots. Peritoneal implants a re less likely. I recommend correlation with ultrasound of the abdomen a nd pelvis. at 1344 Reported and signed by: Abdirahman Sylvester M.D. CC: Samuel Valdez MD Technologist:Tian Mandujano RT(R),(MR),(CT) CTDI: DLP: Trnscb Date/Time: 04/09/2018 (3424) t.SDR.GRW Orig Print D/T: S: 04/09/2018 (8535) CTDI: DLP: PAGE 1 Signed Report URINALYSIS [id number] 13:28:00* Test Item Value Reference Range Interpretation Comments UA COLOR (test code = COLU) CARMITA YELLOW A UA APPEARANCE (test code = APPU) CLEAR CLEAR UA GLUCOSE DIPSTICK (test code = DGLUU) NEGATIVE mg/dL NEGATIVE UA BILIRUBIN DIPSTICK (test code = BILU) NEGATIVE mg/dL NEGATIVE UA KETONE DIPSTICK (test code = KETU) Negative mg/dL NEGATIVE UA SPECIFIC GRAVITY (test code = SGU) 1.016 1.001-1.035 UA BLOOD DIPSTICK (test code = NADEEM) 3+ (Large) NEGATIVE A UA PH DIPSTICK (test code = CORINNE) 7.0 5.0-8.0 UA PROTEIN DIPSTICK (test code = PROU) 30 (1+) mg/dL NEGATIVE A UA UROBILINIOGEN DIPSTICK (test code = URO) 4.0 (2+) mg/dL NEG ATIVE A UA NITRITE DIPSTICK (test code = RIANA) NEGATIVE NEGATIVE UA LEUKOCYTE ESTERASE W REFLEX (test code = LEUUR) NEGATIVE NEG ATIVE UA WBC (test code = WBCU) 6-10 per HPF 0-5 IN SOME URINARY TRACT INFECTIONS THERE MAY NOT BE ENOUGHWBCs IN THE URINE TO TRIGGER AN AUTOMATIC (REFLEX) URINECULTURE. A SEPERATE ORDER FOR URINE CULTURE IS RECOMMENDEDIF THERE IS STRONG SUPPORT FOR A URINARY TRACT INFECTIONCLINICALLY. UA RBC (test code = RBCU) 50-100 per HPF 0-5 A UA EPITHELIAL CELLS (test code = EPIU) None seen per HPF Few UA BACTERIA (test code = BACU) FEW per HPF NONE UA MUCUS (test code = MUCU) FEW per LPF NONE-FEW Urine Source? Clean CatchURINALYSIS [id number] 12:46:00* Test Item Value Reference Range Interpretation Comments UA COLOR (test code = COLU) CARMITA YELLOW A UA APPEARANCE (test code = APPU) CLEAR CLEAR UA GLUCOSE DIPSTICK (test code = DGLUU) NEGATIVE mg/dL NEGATIVE UA BILIRUBIN DIPSTICK (test code = BILU) NEGATIVE mg/dL NEGATIVE UA KETONE DIPSTICK (test code = KETU) Negative mg/dL NEGATIVE UA SPECIFIC GRAVITY (test code = SGU) 1.016 1.001-1.035 UA BLOOD DIPSTICK (test code = NADEEM) 3+ (Large) NEGATIVE A UA PH DIPSTICK (test code = CORINNE) 7.0 5.0-8.0 UA PROTEIN DIPSTICK (test code = PROU) 30 (1+) mg/dL NEGATIVE A UA UROBILINIOGEN DIPSTICK (test code = URO) 4.0 (2+) mg/dL NEG ATIVE A UA NITRITE DIPSTICK (test code = RIANA) NEGATIVE NEGATIVE UA LEUKOCYTE ESTERASE W REFLEX (test code = LEUUR) NEGATIVE NEG ATIVE UA WBC (test code = WBCU) per HPF 0-5 Urine Source? Clean CatchCBC W/O [id number] 12:33:00* Test Item Value Reference Range Interpretation Comments WHITE BLOOD CELL (test code = WBC) 2.9 K/mm3 4.5-12.5 L RED BLOOD CELL (test code = RBC) 3.42 mill/mm3 4.0-5.8 L HEMOGLOBIN (test code = HGB) 9.3 gram/dL 13.0-17.5 L HEMATOCRIT (test code = HCT) 31.0 % 42.0-52.0 L MEAN CELL VOLUME (test code = MCV) 90.6 fL 80-98 N MEAN CELL HGB (test code = MCH) 27.2 picogram 27.0-33.0 N MEAN CELL HGB CONCETRATION (test code = MCHC) 30.0 gram/dL 33.0-36. 0 L RED CELL DISTRIBUTION WIDTH (test code = RDW) 19.2 % 11.6-16. 2 H PLATELET COUNT (test code = PLT) 47 K/mm3 150-450 LL RESULT VERIFIED BY REPEAT ANALYSISCritical results verified and read back by Nurse? Y MEAN PLATELET VOLUME (test code = MPV) 11.6 fL 6.7-11.0 H BASIC METABOLIC [id number] 12:08:00* Test Item Value Reference Range Interpretation Comments SODIUM (test code = NA) 138 mmol/L 136-145 N POTASSIUM (test code = K) 3.7 mmol/L 3.5-5.1 N CHLORIDE (test code = CL) 107.0 mmol/L 98-107 N CARBON DIOXIDE (test code = CO2) 25.0 mmol/L 21-32 N ANION GAP (test code = GAP) 9.7 10-20 L GLUCOSE (test code = GLU) 84 mg/dL 74-106 N BLOOD UREA NITROGEN (test code = BUN) 8 mg/dL 7-18 N GLOMERULAR FILTRATION RATE (test code = GFR) > 60 mL/min >=60 Estimated GFR by using Modified MDRD formula.Chronic kidney disease is defined as either kidney damageor GFR <60 mL/min/1.73 m2 for >3 months. CREATININE (test code = CREAT) 0.70 mg/dL 0.7-1.3 N BUN/CREATININE RATIO (test code = BUN/CREA) 10.7 10-20 N CALCIUM (test code = CA) 8.2 mg/dL 8.5-10.1 L HEPATIC FUNCTION [id number] 12:08:00* Test Item Value Reference Range Interpretation Comments TOTAL PROTEIN (test code = PROT) 8.8 gram/dL 6.4-8.2 H ALBUMIN (test code = ALB) 2.0 g/dL 3.4-5.0 L GLOBULIN (test code = GLOB) 6.8 gram/dL 2.7-4.2 H ALBUMIN/GLOBULIN RATIO (test code = A/G) 0.3 0.75-1.50 L BILIRUBIN TOTAL (test code = BILT) 1.60 mg/dL 0.0-1.0 H BILIRUBIN DIRECT (test code = BILD) 0.74 mg/dL 0.0-0.20 H SGOT/AST (test code = AST) 45 IUnit/L 15-37 H SGPT/ALT (test code = ALT) 13 IUnit/L 12-78 N ALKALINE PHOSPHATASE TOTAL (test code = ALKP) 81 IUnit/L 45-117 N Note change in reference range due to change in reagent. [id number] 12:08:00* Test Item Value Reference Range Interpretation Comments LIPASE (test code = LIP) 114 U/L 73.0-393.0 N [id number] 12:08:00* Test Item Value Reference Range Interpretation Comments TROPONIN-I (test code = TROPI) <0.015 ng/mL 0-0.045 N BASIC METABOLIC [id number] 11:58:00* Test Item Value Reference Range Interpretation Comments SODIUM (test code = NA) 138 mmol/L 136-145 N POTASSIUM (test code = K) 3.7 mmol/L 3.5-5.1 N CHLORIDE (test code = CL) 107.0 mmol/L 98-107 N CARBON DIOXIDE (test code = CO2) mmol/L 21-32 ANION GAP (test code = GAP) 10-20 GLUCOSE (test code = GLU) mg/dL 74-106 BLOOD UREA NITROGEN (test code = BUN) 8 mg/dL 7-18 N GLOMERULAR FILTRATION RATE (test code = GFR) mL/min >=60 CREATININE (test code = CREAT) mg/dL 0.7-1.3 BUN/CREATININE RATIO (test code = BUN/CREA) 10-20 CALCIUM (test code = CA) mg/dL 8.5-10.1 HEPATIC FUNCTION [id number] 11:58:00* Test Item Value Reference Range Interpretation Comments TOTAL PROTEIN (test code = PROT) gram/dL 6.4-8.2 ALBUMIN (test code = ALB) g/dL 3.4-5.0 GLOBULIN (test code = GLOB) gram/dL 2.7-4.2 ALBUMIN/GLOBULIN RATIO (test code = A/G) 0.75-1.50 BILIRUBIN TOTAL (test code = BILT) mg/dL 0.0-1.0 BILIRUBIN DIRECT (test code = BILD) mg/dL 0.0-0.20 SGOT/AST (test code = AST) IUnit/L 15-37 SGPT/ALT (test code = ALT) IUnit/L 12-78 ALKALINE PHOSPHATASE TOTAL (test code = ALKP) IUnit/L 45-117 [id number] 11:58:00* Test Item Value Reference Range Interpretation Comments LIPASE (test code = LIP) U/L 73.0-393.0 BASIC METABOLIC [id number] 11:52:00* Test Item Value Reference Range Interpretation Comments SODIUM (test code = NA) 138 mmol/L 136-145 N POTASSIUM (test code = K) 3.7 mmol/L 3.5-5.1 N CHLORIDE (test code = CL) 107.0 mmol/L 98-107 N CARBON DIOXIDE (test code = CO2) mmol/L 21-32 ANION GAP (test code = GAP) 10-20 GLUCOSE (test code = GLU) mg/dL 74-106 BLOOD UREA NITROGEN (test code = BUN) mg/dL 7-18 GLOMERULAR FILTRATION RATE (test code = GFR) mL/min >=60 CREATININE (test code = CREAT) mg/dL 0.7-1.3 BUN/CREATININE RATIO (test code = BUN/CREA) 10-20 CALCIUM (test code = CA) mg/dL 8.5-10.1 HEPATIC FUNCTION [id number] 11:52:00* Test Item Value Reference Range Interpretation Comments TOTAL PROTEIN (test code = PROT) gram/dL 6.4-8.2 ALBUMIN (test code = ALB) g/dL 3.4-5.0 GLOBULIN (test code = GLOB) gram/dL 2.7-4.2 ALBUMIN/GLOBULIN RATIO (test code = A/G) 0.75-1.50 BILIRUBIN TOTAL (test code = BILT) mg/dL 0.0-1.0 BILIRUBIN DIRECT (test code = BILD) mg/dL 0.0-0.20 SGOT/AST (test code = AST) IUnit/L 15-37 SGPT/ALT (test code = ALT) IUnit/L 12-78 ALKALINE PHOSPHATASE TOTAL (test code = ALKP) IUnit/L 45-117 [id number] 11:52:00* Test Item Value Reference Range Interpretation Comments LIPASE (test code = LIP) U/L 73.0-393.0 PROTHROMBIN [id number] 11:42:00* Test Item Value Reference Range Interpretation Comments PROTHROMBIN TIME PATIENT (test code = PTP) 15.1 seconds 9.0-14.0 H INTERNATIONAL NORMAL RATIO (test code = INR) 1.2 0.8-1.2 N The therapeutic range for oral anticoagulant therapy formost indications is an international normalized ratio (INR)of between 2.0 and 3.0. The recommended therapeutic INRrange for various clinical situations is listed below: Clinical Situation INR range Pulmonary e mbolism treatment (2.0-3.0)Venous thrombosis treatmentVenous thrombosis prophylaxis (high risk surgery)Prevention of systemic embolism from: Acute myocardial infarction Valvular heart disease Atrial fibrillation Mechanical prosthetic heart valves (2.5-3.5) IS PATIENT ON ANTICOAGULANTS? NTHROMBOPLASTIN TIME [id number] 11:42:00* Test Item Value Reference Range Interpretation Comments THROMBOPLASTIN TIME PARTIAL (test code = PTT) 39.0 seconds 25.0-36. 5 H IS PATIENT ON ANTICOAGULANTS? YESENIA [id number] 12:51:00 RUN DATE: 12/25/17 [employer] PAGE 1 RUN TIME: 1251 Specimen Jamesi luz RUN USER: INTERFACE PATIENT: JOCELIN CORREA ACCT #: [id number] LOC: DEON U #: [id number] AGE/SX: 47/M ROOM: [facility] RE12/19/17REG DR: Giovanna Rees MD : 70 BED: A DIS: 12/21/17 STATUS: DIS IN TLOC: SPEC #: [id number] RECD: 12/19/17 STATUS: KEN RE #: [id number] MELISA: 12/19/17-1199 [facility] DR: Yuval Multani MD ENTERED: 12/19/17 SP TYPE: FL ASCITES OTHR DR: Ian Olivas i, MD ORDERED: GROSS COPIES TO: Ian Cook MD [address] [place], [place] [id number] Yuval Multani MD [address] [place] [address] PROCEDURES: GROSS (12/25/17 7) TISSUES: ASCITES FLUID - 20 ML RED CLINICAL HISTORY MELISA ECTION DATE: 12/19/17 HISTORY CIRRHOSIS, HEPATITIS C, PANCYTOPENIA FINAL DIAGNOSIS Ascites fluid for cytology, paracentesis: MESOTHELIAL CELLS, MACROPHAGES, WHITE BLOOD CELLS- PREDOMINATELY LYMPHOCYTES, AND R ED BLOOD CELLS NEGATIVE FOR MALIGNANCY DMW/airn D [id number], [phone] MACROSCOPIC The specimen consists of 20 mL of red fluid for conc entration and evaluation. A cell block will be prepared. GROSS PERFORM ED AT [facility] CONTINUED ON NEXT PAGE RUN DATE: 12/25/17 [facility] PAGE 2 RUN TIME: 1251 Specimen Inquiry RUN USER: INTERFACE SPEC #: [id number] PATIENT: SUNNYJOCELIN #[id number] (Continued)------ ------ MACROSCOPIC (Continued) [address] [facility] [place] [address] (p)[phone] MICROSCOPIC MICROSCOPIC PERFOR MED AT [facility] All of the stains, including any controls perfor med, stain appropriately. [facility] [address] [place] [address] (P)[phone] PERFORMING SITE Diagnosis perform ed at: [facility] [address] [place] [id number] Signed SIGNATURE ON FILE Mireya Sheehan 12/25/17 1251 END OF REPORT STOMACH 2017-12-22 13:27:00 RUN DATE: 12/22/17 [facility] [employer] PAGE 1 RUN TIME: 1327 Specimen Inqui ry RUN USER: INTERFACE PATIENT: MICHELLE CORREAEAL ACCT #: [id number] LOC: DEON U #: [id number] AGE/SX: 47/M ROOM: [facility] RE12/19/17REG DR: Giovanna Rees MD : 70 BED: A DIS: 12/21/17 STATUS: DIS IN TLOC: SPEC #: [id number] RECD: 12/21/17 STATUS: KEN ROSSI #: [id number] MELISA: 12/20/17- SUBM DR: González Nunez MD ENTERED: 12/21/17-1110 SP TYPE: STOMACH OTHR DR: Ian Olivas i, MD ORDERED: GROSS COPIES TO: González Nunez MD [address] [place] [address] Ian Cook MD [address] [place] [address] PROCEDURES: GROSS (12/22/17-105 ) TISSUES: GASTRIC ULCER - BX CLINICAL HISTORY COLLECTION D ATE: 12/20/17 MASS IN COLON, ABDOMINAL PAIN COMMENT A few co xoid structures are identified by Giemsa stain. These are suggestive of the co xoid form of Helicobacter pylori. No structures with the typical spiraled arch itecture of Helicobacter pylori are seen. Correlation is suggested. FIN AL DIAGNOSIS Gastric tissue, cold biopsy: PATCHY CHRONIC GASTRITIS WIT HOUT ACTIVITY NEGATIVE FOR INTESTINAL METAPLASIA FEW STRUCTURES JIMENES GGESTIVE OF HELICOBACTER ORGANISMS IDENTIFIED BY GIEMSA STAIN NE GATIVE FOR MALIGNANCY RRB/sm D 96503, 94335 CONTINUED ON NEXT PAGE RUN DATE: 12/22/17 [place] [facility] PAGE 2 RUN TIME: 1327 Specimen Inquiry RUN USER: MARCELLA MARTIN SPEC # : [id number] PATIENT: JOCELIN CORREA #[id number] (Cont inued) MACROSCOPIC The specimen is received in formali n, labeled with the patient's name, identified as "gastric", and consists of l ight king biopsy tissue measuring 0.35 cm in aggregate, submitted for H E and G iemsa stains. GROSS PERFORMED AT [facility] [address] [place] [address] (p)[phone] MICR OSCOPIC MICROSCOPIC PERFORMED AT [facility] All of the stains, including any controls performed, stain appropriately. [facility] [address] [place] [address] (p)[phone] PERFORM ING SITE Diagnosis performed at: [facility], [address] [place] [address] --------- --- Signed SIGNATURE ON FILE Elvis Schmid 12/22/17 1327 END OF REP ORT CHEM KGKIG8875-81-12 14:13:001.2MH WhegtlfifAFRYQDQXEK5655-01-78 07:45:00 1.0[facility] SchoolWesxrqnrsSMGYOZWFIM3639-41-95 07:45:001.9[facility] SchoolShaofbijsSBPLVAXTCE2704-50-63 07:45:000.2MH EyoyapnvzCPIEPCGSBR6514-72-82 07:45:000.5 [facility] 2017-09-16 07:45:000.9[facility] SchoolMmfliymosFRAUIRIJDT5755-01-25 07:45:005.5[facility] QIKTZBPBCB9460-74-67 07:45:0053.9[facility] SchoolWgpnbfpthNCSUXJPIGM1843-16-38 07:45:0012.6MH DsfbnnsarWGLASXCVRI5922-21-35 07:45:0027.1M DzfdjoklrWXWTNVIWCC8699-00-48 07:45:00* Test Item Value Reference Range Interpretation Comments PTT (test code = PTT) 33.3 s 22.9-35.8 HbcaffblhPIPLRBZBPA0880-79-61 07:45:00* Test Item Value Reference Range Interpretation Comments INR (test code = INR) 1.53 1 0.85-1.17 FnrbwtzhmDBDJNBYFRA5343-24-00 07:45:00* Test Item Value Reference Range Interpretation Comments PT (test code = PT) 18.5 s 12.0-14.7 QydbpkbyqIWDBWEFNJM7602-04-82 07:45:0033.1M ZspxgtzqvUFBSOVLXKM1215-53-75 07:45:0029.3M GitrfbdzlAUUCNGOOSN4187-87-94 07:45:0097.4 [facility] 2017-09-16 07:45:00* Test Item Value Reference Range Interpretation Comments MCH (test code = MCH) 32.2 pg 27.0-31.0 FibczyqtkYCOSEACOAH3901-20-53 07:45:0068 JdzkthkckBTTNUHQSWI4358-49-85 07:45:0017.5 TdcvaggkhSFAZBHCGAR3564-66-57 07:45:008.2M [facility] 2017-09-16 07:45:003.01 RxovepmwpRLOSDZDAQR4014-21-21 07:45:009.7[facility] EDLTFFVOPS1033-35-18 07:45:003.6MH [facility] IQLCEWN8342-37-27 07:24:00< 1.3MH [facility] WVREJBL9790-77-77 07:24:00<1.0MH [facility] ENZYMES 2017-09-16 07:24:0079MH [facility] AOZNEDC2543-71-18 07:24:00<0.02MH [facility] IMHSS1459-71-30 07:24:006.0MH [facility] EYRYE6890-23-01 07:24:00* Test Item Value Reference Range Interpretation Comments B/C Ratio (test code = B/C Ratio) 16 1 6-25 [facility] QBDJP3640-49-73 07:24:00* Test Item Value Reference Range Interpretation Comments A/G Ratio (test code = A/G Ratio) 0.3 1 0.7-1.6 [facility] PKOKZ9814-55-41 07:24:0099MH [facility] PUMMY5699-21-12 07:24:0086MH [facility] DXPBI5616-97-82 07:24:001.5MH [facility] PANEL 2017-09-16 07:24:007.7MH [facility] WDYLV9647-67-79 07:24:05319PQ [facility] MUYWD1583-57-84 07:24:54437SG [facility] WPAUN7556-73-96 07:24:004.7MH [facility] ZFTYP1880-40-13 07:24:008.3MH [facility] XFCBC1959-25-75 07:24:0026MH [facility] THWWU5395-28-04 07:24:007.8MH [facility] PANEL 2017-09-16 07:24:0033MH [facility] RZHAC4475-73-43 07:24:001.8MH [facility] MSQQG0322-51-86 07:24:000.82MH [facility] FCBIO5743-56-39 07:24:0013MH [facility] GTTRO7893-28-96 07:24:37947WJ [facility] ZNQTG0977-19-81 07:24:0095MH [facility] ZOSBP8044-95-79 07:24:71046RG [facility] EFMST1519-09-12 07:24:004.0MH [facility] OOYWP5430-04-03 07:24:00 Negative (09/16/17 2:24 AM) [facility] BVUDJ5592-99-74 07:24:00Negative (09/16/17 2:24 AM) [facility] JPZIK5044-86-19 07:24:003 [facility] LTQPU6486-55-11 07:24:0069 [facility] FUKHG4964-13-93 07:24:00 Slight *ABN*(09/16/17 2:24 AM) [facility] YNPKA9501-71-34 07:24:00* Test Item Value Reference Range Interpretation Comments UA Spec Grav (test code = UA Spec Grav) 1.019 1 [facility] AND VFGHA5481-47-53 07:24:00* Test Item Value Reference Range Interpretation Comments UA pH (test code = UA pH) 6.0 1 5.0-8.0 [facility] AND MTKUG4643-61-44 07:24:00Moderate *ABN*(09/16/17 2:24 AM)[facility] AND NSMIJ4263-22-15 07:24:00Negative *NA*(09/16/17 2:24 AM)[facility] SchoolBlood Lrhaecx1695-53-79 16:48:00* Test Item Value Reference Range Interpretation Comments Blood Culture (test code = 34758402) NO GROWTH AFTER 5 DAYS, FINAL REPORT [facility] A IgM Goqomwgx8482-83-60 10:18:00* Test Item Value Reference Range Interpretation Comments Hepatitis A IgM Antibody (test code = 60295-8) Negative [facility] B Surface Avgiiuh6810-54-49 10:18:00* Test Item Value Reference Range Interpretation Comments Hepatitis B Surface Antigen (test code = 5196-1) Negative [facility] B Core IgM Abtxbveo5487-48-25 10:18:00* Test Item Value Reference Range Interpretation Comments Hepatitis B Core IgM Antibody (test code = 36251-9) Negative [facility] C Vbmamyeg7454-02-88 10:18:00* Test Item Value Reference Range Interpretation Comments Hepatitis C Antibody (test code = 56183-6) 11.0- Reference Range: 0.0 - 0.9 s/co ratioNegative: < 0.8Indeterminate: 0.8 - 0.9Positive: > 0.9 The CDC recommends that a positive HCV antibody result be followed up with a HCV Nucleic Acid Amplification test (642428).Results called to SERG LINTON RN at 1017 on 06/20/17 by Michael Whalen. [place].Testing performed by:[address] [id number]: [facility] AntonioPlatelet Jrnsasrs4315-41-06 10:18:00* Test Item Value Reference Range Interpretation Comments Platelet Estimate (test code = 27707-3) SLIGHTLY DECREASED [facility] HospitalPlatelet Morphology Prdrxxr2773-80-11 10:18:00* Test Item Value Reference Range Interpretation Comments Platelet Morphology Comment (test code = 78448-0) FEW GIANT [facility] HospitalHypochromasia2018-04-09 10:18:00* Test Item Value Reference Range Interpretation Comments Hypochromasia (test code = 728-6) MODERATE [facility] HospitalPoikilocytosis2018-04-09 10:18:00* Test Item Value Reference Range Interpretation Comments Poikilocytosis (test code = 779-9) SLIGHT [facility] HospitalAnisocytosis2018-04-09 10:18:00* Test Item Value Reference Range Interpretation Comments Anisocytosis (test code = 702-1) SLIG [facility] HospitalRed Cell Morphology Hfxrcou0626-55-80 10:18:00* Test Item Value Reference Range Interpretation Comments Red Cell Morphology Comment (test code = 6742-1) NORMAL [facility] HospitalProthrombin Hjnq5527-99-75 08:34:00* Test Item Value Reference Range Interpretation Comments Prothrombin Time (test code = 5902-2) 18.4 11.9-14.5 H [facility] HospitalProthromb Time International Ratio 2017-06-19 08:34:00* Test Item Value Reference Range Interpretation Comments Prothromb Time International Ratio (test code = 6301-6) 1.66 Oral Anticoagulant Therapy INR Values:1. Low Intensity Therapy 1.5 - 2.02 . Moderate Intensity Therapy 2.0 - 3.03. High Intensity Therapy(1) 2.5 - 3. 54. High Intensity Therapy(2) 3.0 - 4.05. Panic Value INR > 5.0 [facility] HospitalActivated Partial Thromboplast Time 2017-06-19 08:34:00* Test Item Value Reference Range Interpretation Comments Activated Partial Thromboplast Time (test code = 27209-0) 37.5 23.8-35.5 H [facility] HospitalTotal Nbxyloepy3608-92-33 08:09:00* Test Item Value Reference Range Interpretation Comments Total Bilirubin (test code = 1975-2) 2.0 0.2-1.2 H [facility]villeodium Zfhhq6928-64-42 08:01:00* Test Item Value Reference Range Interpretation Comments Sodium Level (test code = 2951-2) 131 136-145 L [facility] HospitalPotassium Uqviy1980-24-78 08:01:00* Test Item Value Reference Range Interpretation Comments Potassium Level (test code = 2823-3) 3.5 3.5-5.1 [facility] HospitalChloride Plait7037-70-39 08:01:00* Test Item Value Reference Range Interpretation Comments Chloride Level (test code = 2075-0) 102 98-107 [facility] HospitalCarbon Dioxide Inrsa8711-53-92 08:01:00* Test Item Value Reference Range Interpretation Comments Carbon Dioxide Level (test code = 2028-9) 27 22-29 [facility] HospitalAnion Hti1672-77-22 08:01:00* Test Item Value Reference Range Interpretation Comments Anion Gap (test code = 37308-0) 5.5 8-16 L [facility] HospitalBlood Urea Hfhrcwjp9522-45-23 08:01:00* Test Item Value Reference Range Interpretation Comments Blood Urea Nitrogen (test code = 3094-0) 8 7-26 [facility] HospitalCreatinine2018-04-09 08:01:00* Test Item Value Reference Range Interpretation Comments Creatinine (test code = 2160-0) 0.85 0.72-1.25 [facility] HospitalBUN/Creatinine Kzhee9618-26-69 08:01:00* Test Item Value Reference Range Interpretation Comments BUN/Creatinine Ratio (test code = 3097-3) 9 6-25 [facility] HospitalEstimat Glomerular Filtration Rate 2017-06-19 08:01:00* Test Item Value Reference Range Interpretation Comments Estimat Glomerular Filtration Rate (test code = 18950-6) 60- >60 Ranges were taken from the National Kidney Disease Education Program and the [employer] literature.Reference ranges:60 or greater: Ofgvbn83-05 ( for 3 consecutive months): Chronic kidney disease 15 or less: Kidney failureCHI [facility] CampusGlucose Komjd9793-53-44 08:01:00* Test Item Value Reference Range Interpretation Comments Glucose Level (test code = WGD3184) 121 74-118 H [facility] HospitalCalcium Hegyz0700-47-49 08:01:00* Test Item Value Reference Range Interpretation Comments Calcium Level (test code = 88299-6) 7.3 8.4-10.2 L [facility] HospitalAspartate Amino Transf (AST/SGOT) 2017-06-19 08:01:00* Test Item Value Reference Range Interpretation Comments Aspartate Amino Transf (AST/SGOT) (test code = Aspartate Amino Transf (AST/SGOT)) 51 5-34 H [facility] HospitalAlanine Aminotransferase (ALT/SGPT) 2017-06-19 08:01:00* Test Item Value Reference Range Interpretation Comments Alanine Aminotransferase (ALT/SGPT) (test code = 1742-6) 17 0-55 [facility] HospitalTotal Lcjpcgv8910-32-39 08:01:00* Test Item Value Reference Range Interpretation Comments Total Protein (test code = 2885-2) 6.5 6.5-8.1 [facility] HospitalAlbumin2018-04-09 08:01:00* Test Item Value Reference Range Interpretation Comments Albumin (test code = 1751-7) 1.6 3.5-5.0 L [facility] HospitalGlobulin2018-04-09 08:01:00* Test Item Value Reference Range Interpretation Comments Globulin (test code = 19333-8) 4.9 2.3-3.5 H [facility] HospitalAlbumin/Globulin Kuvzb7911-83-18 08:01:00 * Test Item Value Reference Range Interpretation Comments Albumin/Globulin Ratio (test code = 1759-0) 0.3 0.8-2.0 L [facility] HospitalAlkaline Hruuhtlbhyi4430-52-06 08:01:00* Test Item Value Reference Range Interpretation Comments Alkaline Phosphatase (test code = 6768-6) 47 40-150 [facility] HospitalWhite Blood Ccaod6014-68-58 07:48:00* Test Item Value Reference Range Interpretation Comments White Blood Count (test code = 6690-2) 2.52 4.8-10.8 L [facility] HospitalRed Blood Usqnt7446-47-82 07:48:00* Test Item Value Reference Range Interpretation Comments Red Blood Count (test code = 789-8) 2.78 4.3-5.7 L [facility] HospitalHemoglobin2018-04-09 07:48:00* Test Item Value Reference Range Interpretation Comments Hemoglobin (test code = 53200-2) 9.3 14.0-18.0 L [facility] HospitalHematocrit2018-04-09 07:48:00* Test Item Value Reference Range Interpretation Comments Hematocrit (test code = 4544-3) 27.3 38.2-49.6 L [facility] HospitalMean Corpuscular Ynfpfh1615-78-50 07:48:00* Test Item Value Reference Range Interpretation Comments Mean Corpuscular Volume (test code = 787-2) 98.2 81-99 [facility] HospitalMean Corpuscular Mqmtrwmybs5141-07-51 07:48:00* Test Item Value Reference Range Interpretation Comments Mean Corpuscular Hemoglobin (test code = 785-6) 33.5 28-32 H [facility] HospitalMean Corpuscular Hemoglobin Concent 2017-06-19 07:48:00* Test Item Value Reference Range Interpretation Comments Mean Corpuscular Hemoglobin Concent (test code = 786-4) 34.1 31-35 [facility] HospitalRed Cell Distribution Uqpjd0285-17-86 07:48:00* Test Item Value Reference Range Interpretation Comments Red Cell Distribution Width (test code = 93441-3) 15.1 11.7 -14.4 H [facility] HospitalPlatelet Ntmth1616-50-10 07:48:00* Test Item Value Reference Range Interpretation Comments Platelet Count (test code = 777-3) 46 140-360 LL Results called to SOILA JACK RN at 0748 on 06/19/17 by Michael Whalen. RB [place].[facility] HospitalNeutrophils (%) (Auto)2017-06-19 07:48:00* Test Item Value Reference Range Interpretation Comments Neutrophils (%) (Auto) (test code = 04614-4) 48.0 38.7-80.0 [facility] HospitalLymphocytes (%) (Auto)2017-06-19 07:48:00 * Test Item Value Reference Range Interpretation Comments Lymphocytes (%) (Auto) (test code = 736-9) 27.0 18.0-39.1 [facility] HospitalMonocytes (%) (Auto)2017-06-19 07:48:00* Test Item Value Reference Range Interpretation Comments Monocytes (%) (Auto) (test code = 5905-5) 16.3 4.4-11.3 H [facility] HospitalEosinophils (%) (Auto)2017-06-19 07:48:00 * Test Item Value Reference Range Interpretation Comments Eosinophils (%) (Auto) (test code = 713-8) 7.9 0.0-6.0 H [facility] HospitalBasophils (%) (Auto)2017-06-19 07:48:00* Test Item Value Reference Range Interpretation Comments Basophils (%) (Auto) (test code = 706-2) 0.4 0.0-1.0 [facility] HospitalIM GRANULOCYTES %2017-06-19 07:48:00* Test Item Value Reference Range Interpretation Comments IM GRANULOCYTES % (test code = IM GRANULOCYTES %) 0.4 0.0- 1.0 [facility] HospitalNeutrophils # (Auto)2017-06-19 07:48:00* Test Item Value Reference Range Interpretation Comments Neutrophils # (Auto) (test code = 751-8) 1.2 2.1-6.9 L [facility] HospitalLymphocytes # (Auto)2017-06-19 07:48:00* Test Item Value Reference Range Interpretation Comments Lymphocytes # (Auto) (test code = 59020-8) 0.7 1.0-3.2 L [facility] HospitalMonocytes # (Auto)2017-06-19 07:48:00* Test Item Value Reference Range Interpretation Comments Monocytes # (Auto) (test code = 742-7) 0.4 0.2-0.8 [facility] HospitalEosinophils # (Auto)2017-06-19 07:48:00* Test Item Value Reference Range Interpretation Comments Eosinophils # (Auto) (test code = 711-2) 0.2 0.0-0.4 [facility] HospitalBasophils # (Auto)2017-06-19 07:48:00* Test Item Value Reference Range Interpretation Comments Basophils # (Auto) (test code = 704-7) 0.0 0.0-0.1 [facility] HospitalAbsolute Immature Granulocyte (auto 2017-06-19 07:48:00* Test Item Value Reference Range Interpretation Comments Absolute Immature Granulocyte (auto ([place] t code = Absolute Immature Granulocyte (auto) 0.01 0-0.1 [facility] HospitalDifferential Total Cells Counted 2017-06-16 09:31:00* Test Item Value Reference Range Interpretation Comments Differential Total Cells Counted (test code = Differen tial Total Cells Counted) 100 [facility] HospitalNeutrophils % (Manual)2017-06-16 09:31:00 * Test Item Value Reference Range Interpretation Comments Neutrophils % (Manual) (test code = 64250-6) 73 40-74 [facility] HospitalLymphocytes % (Manual)2017-06-16 09:31:00 * Test Item Value Reference Range Interpretation Comments Lymphocytes % (Manual) (test code = 737-7) 14 19-48 L [facility] HospitalMonocytes % (Manual)2017-06-16 09:31:00* Test Item Value Reference Range Interpretation Comments Monocytes % (Manual) (test code = 744-3) 2 3.4-9.0 L [facility] HospitalEosinophils % (Manual)2017-06-16 09:31:00 * Test Item Value Reference Range Interpretation Comments Eosinophils % (Manual) (test code = 714-6) 8 0-7 H [facility] HospitalBasophils % (Manual)2017-06-16 09:31:00* Test Item Value Reference Range Interpretation Comments Basophils % (Manual) (test code = 56392-9) 1 0-1.5 [facility] HospitalMetamyelocytes %2017-06-16 09:31:00* Test Item Value Reference Range Interpretation Comments Metamyelocytes % (test code = 740-1) 2 0-0 H [facility] HospitalVitamin B12 Llxai4214-97-51 07:59:00* Test Item Value Reference Range Interpretation Comments Vitamin B12 Level (test code = 62623-3) 887 213-816 H [facility] HospitalFolate2018-04-06 07:59:00* Test Item Value Reference Range Interpretation Comments Folate (test code = 2284-8) 10.3 7.0-15.4 [facility] HospitalFerritin2018-04-06 07:39:00* Test Item Value Reference Range Interpretation Comments Ferritin (test code = 2276-4) 220.60 21.81-274.66 [facility] HospitalIron Xihfd9128-23-63 07:25:00* Test Item Value Reference Range Interpretation Comments Iron Level (test code = 2498-4) 102 65-175 [facility] HospitalTotal Iron Binding Hjvwrvfl8523-35-38 07:25:00* Test Item Value Reference Range Interpretation Comments Total Iron Binding Capacity (test code = 2500-7) 274 261-4 78 [facility] HospitalPercent Iron Xdruyxsgsl6170-48-58 07:25:00* Test Item Value Reference Range Interpretation Comments Percent Iron Saturation (test code = 2502-3) 37 15-50 [facility] HospitalTransferrin2018-04-06 07:25:00* Test Item Value Reference Range Interpretation Comments Transferrin (test code = 3034-6) 196 174-364 [facility] HospitalDirect Mlbhlugry7447-34-46 07:22:00* Test Item Value Reference Range Interpretation Comments Direct Bilirubin (test code = 06114-0) 2.0 0.0-0.5 H [facility] HospitalAmylase Hfkqj0317-17-33 07:22:00* Test Item Value Reference Range Interpretation Comments Amylase Level (test code = 1798-8) 65 25-125 [facility] HospitalLipase2018-04-06 07:22:00* Test Item Value Reference Range Interpretation Comments Lipase (test code = 3040-3) 16 8-78 [facility] HospitalPercent Reticulocyte Vppli6682-00-42 07:04:00* Test Item Value Reference Range Interpretation Comments Percent Reticulocyte Count (test code = 24448-9) 2.6 0.8-2 .2 H [facility] HospitalAmmonia2018-04-05 21:00:00* Test Item Value Reference Range Interpretation Comments Ammonia (test code = 53321-8) 58 31-123 [facility] HospitalBody Fluid Jasnwlppkzq3203-89-46 18:25:00 * Test Item Value Reference Range Interpretation Comments Body Fluid Neutrophils (test code = 16344-8) 11 MESOTHELIAL CELLS SEEN, RESULTED "OTHER"[facility] HospitalBody Fluid Xyjyaqhtgnl1715-72-05 18:25:00* Test Item Value Reference Range Interpretation Comments Body Fluid Lymphocytes (test code = 64351301) 15 [facility] HospitalBody Fluid Zwrgahcku1312-03-84 18:25:00* Test Item Value Reference Range Interpretation Comments Body Fluid Monocytes (test code = 22897-6) 64 [facility] HospitalBody Fluid Other Cicsg8496-84-18 18:25:00 * Test Item Value Reference Range Interpretation Comments Body Fluid Other Cells (test code = 391673930) 10 [facility] HospitalBody Fluid Total Cells Bwzjirn9566-12-39 18:25:00* Test Item Value Reference Range Interpretation Comments Body Fluid Total Cells Counted (test code = 88295-1) 100 [facility] HospitalBody Fluid Rnhiacx7800-82-83 18:25:00* Test Item Value Reference Range Interpretation Comments Body Fluid Comment (test code = Body Fluid Comment) SEE COMMENT [facility] Stephenvilletool Occult Nbksh6384-71-90 18:21:00* Test Item Value Reference Range Interpretation Comments Stool Occult Blood (test code = 2335-8) POSITIVE NEGATIVE H [facility] HospitalBody Fluid Rfxa0108-76-19 17:33:00* Test Item Value Reference Range Interpretation Comments Body Fluid Type (test code = 53131-3) PERITONEAL RIGHT ABD FLUIDHouston Methodist Sugar [facility] HospitalBody Fluid Nplri0717-78-20 17:33:00* Test Item Value Reference Range Interpretation Comments Body Fluid Color (test code = 6824-7) YELLOW [facility] HospitalBody Fluid Fvftydxjjf5206-59-80 17:33:00 * Test Item Value Reference Range Interpretation Comments Body Fluid Appearance (test code = 9335-1) CLOUDY [facility] HospitalBody Fluid DXC2438-55-72 17:33:00* Test Item Value Reference Range Interpretation Comments Body Fluid WBC (test code = 6743-9) 163 [facility] HospitalBody Fluid CNK1015-53-64 17:33:00* Test Item Value Reference Range Interpretation Comments Body Fluid RBC (test code = 6741-3) 1519 [facility] HospitalUrine HAA8458-74-70 16:17:00* Test Item Value Reference Range Interpretation Comments Urine WBC (test code = 5821-4) NONE 0-5 [facility] HospitalUrine TFO8305-97-49 16:17:00* Test Item Value Reference Range Interpretation Comments Urine RBC (test code = 24858-7) 11-20 0-5 H [facility] HospitalUrine Vmkhbeta8211-44-92 16:17:00* Test Item Value Reference Range Interpretation Comments Urine Bacteria (test code = 31938-3) NONE NONE [facility] HospitalUrine Epithelial Grqza5418-63-31 16:17:00 * Test Item Value Reference Range Interpretation Comments Urine Epithelial Cells (test code = 98581-1) NONE NONE [facility] HospitalUrine Twsyg5266-00-43 15:54:00* Test Item Value Reference Range Interpretation Comments Urine Color (test code = 5778-6) ORANGE YELLOW H [facility] HospitalUrine Knwchvj6996-62-93 15:54:00* Test Item Value Reference Range Interpretation Comments Urine Clarity (test code = 52815-8) CLOUDY CLEAR H [facility] HospitalUrine Specific Qobctvx9832-38-03 15:54:00 * Test Item Value Reference Range Interpretation Comments Urine Specific [place] (test code = 5811-5) 1.010 1.010-1.02 5 [facility] HospitalUrine xV9063-04-65 15:54:00* Test Item Value Reference Range Interpretation Comments Urine pH (test code = 53573-5) 7 5-7 [facility] HospitalUrine Leukocyte Xjbizcfm8710-61-96 15:54:00* Test Item Value Reference Range Interpretation Comments Urine Leukocyte Esterase (test code = 5799-2) NEGATIVE NEGATIVE [facility] [facility] Ckwoona4583-08-42 15:54:00* Test Item Value Reference Range Interpretation Comments Urine Nitrite (test code = 00171-3) NEGATIVE NEGATIVE [facility] Ylfnuun1125-25-06 15:54:00* Test Item Value Reference Range Interpretation Comments Urine Protein (test code = 5804-0) 1+ NEGATIVE H [facility] Glucose (UA)2017-06-15 15:54:00* Test Item Value Reference Range Interpretation Comments Urine Glucose (UA) (test code = 2349-9) NEGATIVE NEGATIVE [facility] Nazelby6248-14-46 15:54:00* Test Item Value Reference Range Interpretation Comments Urine Ketones (test code = 45270-1) TRACE NEGATIVE H [facility] Sroizserplsj1975-28-85 15:54:00* Test Item Value Reference Range Interpretation Comments Urine Urobilinogen (test code = 09552-9) 8 0.2-1 H [facility] Nrvjuhthl5883-94-97 15:54:00* Test Item Value Reference Range Interpretation Comments Urine Bilirubin (test code = 1978-6) 2+ NEGATIVE H Confirmatory test currently unavailable. False positive results may occur.[facility] Wusmg6770-98-80 15:54:00* Test Item Value Reference Range Interpretation Comments Urine Blood (test code = 60093-1) 2+ NEGATIVE H [facility] [address] [place] [address] Patient Name: JOCELIN CORREA MR #: [id number] : 1970 Age/Sex: 47/M Req #: [id number] Adm Physician: ROME HOPPER MD Ordered by: AMARA GUTHRIE MD Report #: [id number] Location: MED/SURG Room[place]Bed: [facility] [place] [facility] [place] Procedure: [id number] US/US LIVER Exam Date: 06/20/17 Exam Time: 1024 REP ORT STATUS: Signed EXAM: Right Upper Quadrant Ultrasound INDICATION: Abdo yolis pain. COMPARISON: CT dated 06/15/2017 TECHNIQUE: Transver se and longitudinal images of the right upper abdomen were obtained. FIN DINGS: Liver: Size: 10 cm in the right midclavicular line, normal Appearance: Normal echogenicity, nodular contour Mass: No focal ma sses Gallbladder: Stones/Sludge: None Wall: 0.7 cm Anderson earance: No pericholecystic fluid or hydrops. Sonographic Thomas's Sign : Negative Bile Ducts: Intrahepatic Ducts: No dilatation Extr ahepatic Ducts: Common bile duct measures 0.3 cm, no dilatation Pancreas: Limited visualized pancreas is unremarkable. Right Kidney: Siz e: 12.5 cm Echogenicity: Mildly increased Parenchymal thickness : Normal Collecting system: No hydronephrosis Stones: None Cyst/Mass: None Vessels: Aorta: Not well visualized. Inferio r Vena Cava: Visualized portions are normal Main Portal Vein: 1.1 cm, nor mal size with hepatopetal flow. Free Fluid: Moderate volume abdomina l ascites. IMPRESSION: 1. Cirrhotic liver morphology. No focal mass. 2 . Gallbladder wall thickening which is nonspecific in the setting of cirrhosi s/ascites. No cholelithiasis. 3. Moderate volume abdominal ascites. 4. Mil dly increased right renal cortical echogenicity, suggestive of medical renal d isease. Signed by: Dr. Diana Gonzalez MD on 06/20/2017 11:33 AM Dictated By: DIANA GONZALEZ MD 1133 Transcribed By: ZAHEER on 06/20/17 1133 COPY TO: AMARA GUTHRIE MD CT ABDOMEN/PELVIS W [place] [address] Patient Name: JOCELIN CORREA MR #: [id number] : 1970 Age/Sex: 47/M Req #: [id number] Adm Physician: Ordered by: EZ MANDUJANO MD Report #: [id number] Location: ER Room/Bed: Procedure: [id number] CT/CT ABDOMEN/PELVIS W Exam Date: Exam Time: REPORT STATUS: Signed ND OCEDURE: CT ABDOMEN AND PELVIS WITH CONTRAST TECHNIQUE: The abdomen and pelvis were scanned utilizing a multidetector helical scanner from the diaph ragm to the lesser trochanter after the IV administration of 100 cc of Isovue 370 and the oral administration of Gastroview. Coronal and sagittal multipla ana rosa reformations were obtained. DLP: 697.6 mGy-cm COMPARISON: [...] nonobstructing calculi in the right superior and infe rior renal poles. PELVIC ORGANS/BLADDER: Unremarkable. PERITONEUM / RETR OPERITONEUM: No free air. Large amount of ascites. LYMPH NODES: No lymphadenop athy. VESSELS: Unremarkable. GI TRACT: No distention or wall thickening. BONES AND SOFT TISSUES: Unremarkable. IMPRESSION: 1. Nodular live r contour compatible with cirrhosis. 2. Large volume ascites. 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 3. Splenomegaly likely related to portal hypertens ion. Dictated by: Deandre Davis M.D. on 06/15/2017 at 14:50 Electronically approved by: Deandre Davis M.D. on 06/15/2017 at 14:50 Dictated By: DEANDRE DAVIS MD 1450 Transcribed By: MARCO on 06/15/17 1450 COPY TO: EZ MANDUJANO MD US GUIDED PARACENTESIS [place] [address] Patient Name: JOCELIN CORREA MR #: [id number] : 1970 Age/Sex: 47/M Req #: [id number] Adm Physician: ROME HOPPER MD Ordered by: JESUS MARKS [employer]NT Report #: [id number] Location: [facility] Room/Bed: [place] [address] Procedure: [id number] US /US GUIDED PARACENTESIS Exam Date: 06/15/17 Exam Thad e: 1611 REPORT STATUS: Signed PROCEDURE: US GUIDED PARACENTESIS COM PARISON: None. INDICATIONS: Cirrhosis, Ascites FINDINGS: After informed consent was obtained, focused abdominal ultrasound identified a safe entry route into the free ascitic fluid in the right lower quadrant of the a bdomen. The overlying skin was prepped and draped in sterile fashion. Lidocai ne 1% was used for local anesthesia. Under ultrasound guidance, an 18 gau ge needle was advanced into the ascitic fluid. 30 cc of clear straw colored f luid was aspirated. The needle was removed. There was <1cc blood loss and no complications. Samples were sent to the laboratory for analysis. CONCLUSION: Uncomplicated ultrasound-guided diagnostic paracentesis with removal of 30 cc of clear straw colored fluid. Dictated by: Deandre Davis M.D. on 06/15/2017 at 17:10 Electronically approved by: Deandre Davis M.D. on 06/15/2017 at 17:10 Dictated By: DEANDRE DAVIS MD 09 Transcribed By: MARCO on 06/15/171709 COPY TO: JESUS MARKS NP
--- OUTSIDE RECORDS SUMMARY | 2019-08-14 06:16 | XMS REPORT ---
Author Author Admin, Raymundo Barry Organization Unknown Address Unknown Phone Unavailable PROBLEMS Condition Status Date Provider Notes Chronic pain active Vane Ana Laura Nausea active Vane Ana Laura Hepatitis C, chronic active Vane Ana Laura Liver cirrhosis active Vane Ana Laura ENCOUNTERS Date Type Provider Location Encounter Diagn osis - Ambulatory Encounter Vane Ana Laura Harvinder [place] Ana Laura [facility] UNK - Ambulatory Encounter Vane Ivano wicho [facility] Ana Laura Mir Carpio [facility] UNK - Ambulatory Encounter Fax Status [facility] UNK - Ambulatory Encounter Fax Status [facility] UNK - Ambulatory Encounter Fax Status [facility] UNK - Ambulatory Encounter Jonelle Phillips [facility] UNK - Ambulatory Encounter Vane Ana Laura Harvinder [place] Ana Laura [facility] UNK - Ambulatory Encounter Vane Ivano va Vane Ana Laura Jessica Hester Carpio [facility] Liver cirrhosisHepatitis C, chronicNauseaChronic pain VITAL SIGNS Date Observation Value Provider blood pressure, diastolic, second observation 91 mm[Hg] Deborath Carpio " blood pressure, systolic, second observation 139 mm[Hg] Deborath Carpio " oxygen saturation, oximetry 99 % Vero rat Carpio " blood pressure, diastolic 107 mm[Hg] Briseida th Carpio " blood pressure, systolic 151 mm[Hg] Deborat h Carpio " respiratory rate E&M 18 /min Deborath Gr anados " pulse rate E&M 115 /min Deborath Bebeto s " temperature E&M 99.7 [degF] Deborath Bebeto s " weight E&M 195 lbs. Deborath Bebeto s " weight in kilograms E&M 88.64 kg Deborath Carpio " height E&M 69 [in_i] Deborath Bebeto s " height in centimeters E&M 175.26 cm Briseida Carpio " method used to obtain blood pressure automatic [facility] " Blood Pressure Position 01 sitting Debor Carpio " blood pressure, site #1 left arm Deborath Carpio " temperature site oral Deborath Granad os blood pressure, diastolic, second observation 90 mm[Hg] Debora Carpio " blood pressure, systolic, second observation 138 mm[Hg] Deborath Carpio " oxygen saturation, oximetry 99 % [facility] " method used to obtain blood pressure automatic [facility] " Blood Pressure Position 01 sitting Debor Carpio " blood pressure, site #1 left arm Deborath Carpio " blood pressure, diastolic 88 mm[Hg] Briseida Carpio " blood pressure, systolic 144 mm[Hg] Deborat h Carpio " respiratory rate E&M 16 /min Deborath Gr anados " pulse rate E&M 105 /min Deborath Bebeto s " temperature site oral Debsuccasunnath Granad os " temperature E&M 99.5 [degF] Deborath Bebeto s " weight E&M 202.20 lbs. Deborath Bebeto s " weight in kilograms E&M 91.91 kg Deb Carpio " height E&M 69 [in_i] Deborath Bebeto s " height in centimeters E&M 175.26 cm Briseida Carpio Allergies No Known Allergy Information REASON FOR REFERRAL Start Date - End Date Service - Pain Management - External - Gastroenterology - External RESULTS No Information Available HISTORY OF IMMUNIZATIONS No Information Available HISTORY OF MEDICATION USE Medication Instructions Dates Provider Comments ZOFRAN 4 MG ORAL TABLET take As Needed 3 times daily for michael sea - Vane Ana Laura ZOFRAN 4 MG ORAL TABLET take 1 tablet 3 times daily for nausea p rn Vane Ana Laura SOCIAL HISTORY Date Observation Value Provider Exercise Program Referral T Briseida Carpio " Weight Management Counseling Provided T Marcysuccasunna Carpio " Nutrition intervention T succasunna Carpio " drug use, illicit Never Deborath Luis Carlos dos " alcohol use Previously Deborath Bebeto s " social history reviewed E&M reviewed today Vero barney Carpio " is there any chance that you could be ? [facility] " passive cigarette smoke exposure [facility] " smoking status current every day smoker Deborat h Carpio time of call 02/27/2019 10:07 AM Keli Phillips " is there any chance that you could be ? [facility] " Occupation #1 Disabled Debsuccasunnath Bebeto s " patient considered to be homeless [facility] " drug use, illicit Never Deborath Luis Carlos dos " alcohol use Previously Deborath Bebeto s " smoking status current every day smoker Deborat h Carpio " passive cigarette smoke exposure No Debsuccasunna Carpio FUNCTIONAL STATUS No Information Available MENTAL STATUS Date Observation Value Provider assessment of mood and affect E&M no dep ression, anxiety, or agitation Vane Ana Laura " Generalized Anxiety Disorder Questionnaire - Que stion 2 0 [facility] Carpio " Generalized Anxiety Disorder Questionnaire - Que stion 1 0 [facility] assessment of judgment and insight E&M intact Vane Ana Laura " assessment of mood and affect E&M no depression, anxiety, or agitation Vane Ana Laura " Generalized Anxiety Disorder Questionnaire - Que stion 2 0 [facility] Carpio " Generalized Anxiety Disorder Questionnaire - Que stion 1 0 [facility] MEDICAL EQUIPMENT No Information Available FAMILY HISTORY No Information Available INSURANCE PROVIDERS No Information Available ADVANCE DIRECTIVES No Information Available TREATMENT PLAN Date Name Urinalysis Complete w/reflex to Culture TSH Lipid Panel Comp. Metabolic Panel (14) CBC With Differential/Platel et - - Est Patient Exp Problem - 99 213 Venipuncture New Patient Detailed - 54225 HISTORY OF PROCEDURES Procedure Date Procedure Name Provider Procedure Notes Status Venipuncture Vane Du completed GOALS No Information Available HEALTH CONCERNS No Information Available
--- OUTSIDE RECORDS SUMMARY | 2019-08-14 06:16 | XMS REPORT ---
Author Author Admin, Raymundo Barry Organization Unknown Address Unknown Phone Unavailable PROBLEMS Condition Status Date Provider Notes Chronic pain active Vane Ana Laura Nausea active Vane Ana Laura Hepatitis C, chronic active Vane Ana Laura Liver cirrhosis active Vane Ana Laura ENCOUNTERS Date Type Provider Location Encounter Diagn osis - Ambulatory Encounter Fax Status [facility] - Ambulatory Encounter Fax Status [facility] - Ambulatory Encounter Fax Status [facility] - Ambulatory Encounter Jonelle Phillips [facility] - Ambulatory Encounter Vane Ana Laura Harvinder sanchezlia Ana Laura [facility] - Ambulatory Encounter Vane Ivano wicho Vane Ana Laura Jessica Carpio [facility] Liver cirrhosisHepatitis C, chronicNauseaChronic pain [...] No Mir Carpio " Occupation #1 Disabled Mir Tate s " patient considered to be homeless No Mir Carpio " drug use, illicit Never Mir Aldridge dos " alcohol use Previously Briseidagiulia Powerado s " smoking status current every day smoker Renetta anson Carpio " passive cigarette smoke exposure No Marcywordengiulia Carpio FUNCTIONAL STATUS No Information Available MENTAL STATUS Date Observation Value Provider assessment of judgment and insight E&M intact Vane Du " assessment of mood and affect E&M no depression, anxiety, or agitation Vane Du " Generalized Anxiety Disorder Questionnaire - Que stion 2 0 [facility] " Generalized Anxiety Disorder Questionnaire - Que stion 1 0 Marcywordengiulia Carpio MEDICAL EQUIPMENT No Information Available FAMILY HISTORY No Information Available INSURANCE PROVIDERS No Information Available ADVANCE DIRECTIVES No Information Available TREATMENT PLAN Date Name - - New Patient Detailed - 75853 HISTORY OF PROCEDURES No Information Available GOALS No Information Available HEALTH CONCERNS No Information Available
--- OUTSIDE RECORDS SUMMARY | 2019-08-14 06:16 | XMS REPORT ---
Author Author Admin, Raymundo Barry Organization Unknown Address Unknown Phone Unavailable PROBLEMS Condition Status Date Provider Notes Hematuria active Vane Ana Laura Chronic pain active Vane Ana Laura Nausea active Vane Ana Laura Hepatitis C, chronic active Vane Ana Laura Liver cirrhosis active Vane Ana Laura ENCOUNTERS Date Type Provider Location Encounter Diagn osis - Ambulatory Encounter Vane Ana Laura [place] Ana Laura [facility] Hematuria - Ambulatory Encounter Vane Ana Laura [place] Ana Laura [facility] UNK - Ambulatory Encounter Vane Ivano va Vane Ana Laura [employer] [facility] UNK - Ambulatory Encounter Vane Ana Laura [place] Ana Laura [facility] UNK - Ambulatory Encounter Vane Ivano va Vane Ana Laura Mir Carpio [facility] UNK - Ambulatory Encounter Fax Status [facility] UNK - Ambulatory Encounter Fax Status [facility] UNK - Ambulatory Encounter Fax Status [facility] UNK - Ambulatory Encounter Jonelle Phillips [facility] UNK - Ambulatory Encounter Vane Ana Laura [place] Ana Laura [facility] UNK - Ambulatory Encounter Vane uD Jessica Maguire Deborath Carpio [facility] Liver cirrhosisHepatitis C, chronicNauseaChronic pain VITAL SIGNS Date Observation Value Provider blood pressure, diastolic, second observation 91 mm[Hg] Deborath Carpio " blood pressure, systolic, second observation 139 mm[Hg] Deborath Carpio " oxygen saturation, oximetry 99 % Vero rath Carpio " blood pressure, diastolic 107 mm[Hg] [...] method used to obtain blood pressure automatic Deborath Carpio " Blood Pressure Position 01 sitting Debor ath Carpio " blood pressure, site #1 left arm Deborath Carpio " temperature site oral Deborath Granad os blood pressure, diastolic, second observation 90 mm[Hg] Deborath Carpio " blood pressure, systolic, second observation 138 mm[Hg] Debora Carpio " oxygen saturation, oximetry 99 % Vero rat Carpio " method used to obtain blood pressure automatic Deborath Carpio " Blood Pressure Position 01 sitting Debor ath Carpio " blood pressure, site #1 left arm Deborath Carpio " blood pressure, diastolic 88 mm[Hg] Briseida th Carpio " blood pressure, systolic 144 mm[Hg] Deborat h Carpio " respiratory rate E&M 16 /min Deborath Gr anados " pulse rate E&M 105 /min Deborath Bebeto s " temperature site oral Deborath Granad os " temperature E&M 99.5 [degF] Deborath Bebeto s " weight E&M 202.20 lbs. Deborath Bebeto s " weight in kilograms E&M 91.91 kg Mir Carpio " height E&M 69 [in_i] Mir dexter " height in centimeters E&M 175.26 cm Briseida Carpio Allergies No Known Allergy Information REASON FOR REFERRAL Start Date - End Date Service - Pain Management - External - Gastroenterology - External RESULTS Date Observation Value Provider Reference Range Interpretati on Location thyroid stimulating hormone, serum 1.920 u[iU]/mL [employer] 0.450-4.500 " LDL cholesterol, serum 63 mg/dL [employer] 0-99 " very low density lipoproteins 10 mg/dL [employer] 5-40 " HDL cholesterol, serum 50 mg/dL [employer] >39 " triglyceride, serum, fasting 48 mg/dL [employer] 0-149 " cholesterol, serum 123 mg/dL [employer] 100-199 " bacteria, urine microscopy None seen [employer] None seen/Fe w " cast type, urinalysis Hyaline casts [employer] N/A " casts, urine Present [employer] None seen Abnormal " epithelial cells, urine 0-10 [employer] 0 - 10 " RBC, Urine 3-10 /hpf [employer] 0 - 2 Abnormal " WBC urine on microscopy 0-5 /hpf [employer] 0 - 5 " urinalysis, microscopic examination See below: [employer] " nitrate, urine Negative [employer] Negative " urobilinogen, urine, semiquantitative (dipstick) 0.2 L [employer] 0.2-1.0 " bilirubin, urine Negative [employer] Negative " ketones, urine, by test strip Negative [employer] Negative " glucose, urine, semiquantitative Negative [employer] Negati ve " protein, urine, semiquantitative (dipstick) Negative [employer] Negative/Trace " leukocyte esterase, urine, by dipstick Negative [employer] Negative " appearance, urine Clear [employer] Clear " urine color Yellow [employer] Yellow " pH, urine, semiquantitative 7.5 [employer] 5.0-7.5 " specific gravity, body fluid 1.008 [employer] 1.005-1.03 0 " alanine aminotransferase (SGPT), serum 17 1/L [employer] 0-44 " aspartate aminotransferase (SGOT), serum 34 1/L [employer] 0-40 " alkaline phosphatase, serum 72 1/L [employer] 39-117 " bilirubin, serum, total 1.3 mg/dL [employer] 0.0-1.2 High " albumin/globulin ratio, serum 0.6 [employer] 1.2-2.2 Low " globulin, serum 5.7 [employer] 1.5-4.5 High " albumin, serum 3.3 g/dL [employer] 3.5-5.5 Low " protein, total, serum 9.0 g/dL [employer] 6.0-8.5 High " calcium, serum 8.2 mg/dL [employer] 8.7-10.2 Low " carbon dioxide, venous blood 23 mmol/L [employer] 20-29 " chloride, serum 94 mmol/L [employer] 96-106 Low " potassium, serum 3.8 mmol/L [employer] 3.5-5.2 " sodium, serum 134 mmol/L [employer] 134-144 " urea nitrogen/creatinine ratio, serum 15 [employer] 9 -20 " eGFR if 66 mL/min/((173/100).m2) [employer] >59 " Estimated Glomerular Filtration Rate (calc) 57 m L/min/((173/100).m2) [employer] >59 Low " creatinine, serum 1.44 mg/dL [employer] 0.76-1.27 High " urea nitrogen, blood 21 mg/dL [employer] 6-24 " blood glucose, random 104 mg/dL [employer] 65-99 High " immature granulocytes, percentage of total cells, bloo d 0 % [employer] Not Estab. " basophil count, absolute 0.0 x10E3/uL [employer] 0.0-0.2 " Eosinophil Absolute Count 0.5 X10E3/UL [employer] 0.0-0.4 High " monocyte count, blood, automated 0.8 X10E3/UL [employer] 0.1 -0.9 " lymphocyte count, blood, automated 0.9 X10E3/UL [employer] 0 .7-3.1 " Absolute Neutrophils 3.5 X10E3/UL [employer] 1.4-7.0 " basophils as percent of blood leukocytes 1 % [employer] Not Estab. " eosinophils as percent of blood leukocytes 9 % [employer] Not Estab. " monocytes as percent of blood leukocytes 13 % [employer] Not Estab. " lymphocytes as percent of blood leukocytes 16 % [employer] Not Estab. " neutrophils as percent of blood leukocytes 61 % [employer] Not Estab. " platelet count 102 X10E3/UL [employer] 150-450 Low " red blood cell distribution width 20.5 % [employer] 11.6- 15.4 High " mean corpuscular hemoglobin concentration, RBC 28.8 G/DL [employer] 31.5-35.7 Low " mean corpuscular hemoglobin, RBC 22.4 pg [employer] 26.6-3 3.0 Low " mean corpuscular volume, RBC 78 fL [employer] 79-97 Low " hematocrit, blood 32.3 % [employer] 37.5-51.0 Low " hemoglobin, blood 9.3 g/dL [employer] 13.0-17.7 Low " erythrocyte (RBC) count 4.16 X10E6/UL [employer] 4.14-5.80 " leukocyte count, blood 5.7 X10E3/UL [employer] 3.4-10.8 HISTORY OF IMMUNIZATIONS No Information Available HISTORY OF MEDICATION USE Medication Instructions Dates Provider Comments ZOFRAN 4 MG ORAL TABLET take As Needed 3 times daily for michale sea - Vane Ana Laura ZOFRAN 4 MG ORAL TABLET take 1 tablet 3 times daily for nausea p rn Vane Du SOCIAL HISTORY Date Observation Value Provider Exercise Program Referral T Briseida Carpio " Weight Management Counseling Provided T Mir Carpio " Nutrition intervention T Mir Carpio " drug use, illicit Never Mir Aldridge dos " alcohol use Previously Mir dexter " social history reviewed E&M reviewed today Vero Carpio " is there any chance that you could be ? No Mir Carpio " passive cigarette smoke exposure No Mir Carpio " smoking status current every day smoker Renetta Carpio time of call 02/27/2019 10:07 AM Keli Phillips " is there any chance that you could be ? No Mir Carpio " Occupation #1 Disabled Mir dexter " patient considered to be homeless No Mir Carpio " drug use, illicit Never Deborath Luis Carlos dos " alcohol use Previously Debora [facility] s " smoking status current every day smoker Deborat h Carpio " passive cigarette smoke exposure No [facility] FUNCTIONAL STATUS No Information Available MENTAL STATUS Date Observation Value Provider assessment of mood and affect E&M no dep ression, anxiety, or agitation Vane Ana Laura " Generalized Anxiety Disorder Questionnaire - Que stion 2 0 [facility] " Generalized Anxiety Disorder Questionnaire - Que stion 1 0 [facility] assessment of judgment and insight E&M intact Vane Ana Laura " assessment of mood and affect E&M no depression, anxiety, or agitation Vane Ana Laura " Generalized Anxiety Disorder Questionnaire - Que stion 2 0 [facility] " Generalized Anxiety Disorder Questionnaire - Que stion 1 0 [facility] MEDICAL EQUIPMENT No Information Available FAMILY HISTORY No Information Available INSURANCE PROVIDERS No Information Available ADVANCE DIRECTIVES No Information Available TREATMENT PLAN Date Name Urinalysis Complete w/reflex to Culture TSH Lipid Panel Comp. Metabolic Panel (14) CBC With Differential/Platel et - - Est Patient Exp Problem - 99 213 Venipuncture New Patient Detailed - 51332 HISTORY OF PROCEDURES Procedure Date Procedure Name Provider Procedure Notes Status Venipuncture Vane Du completed GOALS No Information Available HEALTH CONCERNS No Information Available
--- OUTSIDE RECORDS SUMMARY | 2019-08-14 06:16 | XMS REPORT ---
Author Author Admin, Raymundo Barry Organization Unknown Address Unknown Phone Unavailable PROBLEMS Condition Status Date Provider Notes Chronic pain active Vane Ana Laura Nausea active Vane Ana Laura Hepatitis C, chronic active Vane Ana Laura Liver cirrhosis active Vane Ana Laura ENCOUNTERS Date Type Provider Location Encounter Diagn osis - Ambulatory Encounter Fax Status [facility] - Ambulatory Encounter Fax Status [facility] - Ambulatory Encounter Fax Status [facility] - Ambulatory Encounter Jonelle Phillips [facility] - Ambulatory Encounter Vane Ana Laura Harvinder sanchezlia Ana Laura [facility] - Ambulatory Encounter Vane Ivano wicho Vane Ana Laura Jessica Carp[facility] Liver cirrhosisHepatitis C, chronicNauseaChronic pain VITAL [...] Carpio " passive cigarette smoke exposure No Marcyprimghargiulia Carpio FUNCTIONAL STATUS No Information Available MENTAL STATUS Date Observation Value Provider assessment of judgment and insight E&M intact Vane Du " assessment of mood and affect E&M no depression, anxiety, or agitation Vane Du " Generalized Anxiety Disorder Questionnaire - Que stion 2 0 [facility] " Generalized Anxiety Disorder Questionnaire - Que stion 1 0 Marcyprimghargiulia Carpio MEDICAL EQUIPMENT No Information Available FAMILY HISTORY No Information Available INSURANCE PROVIDERS No Information Available ADVANCE DIRECTIVES No Information Available TREATMENT PLAN Date Name - - New Patient Detailed - 79960 HISTORY OF PROCEDURES No Information Available GOALS No Information Available HEALTH CONCERNS No Information Available
--- OUTSIDE RECORDS SUMMARY | 2019-08-14 06:16 | XMS REPORT ---
Author Author Admin, Student Designede Organization Unknown Address Unknown Phone Unavailable PROBLEMS Condition Status Date Provider Notes Hematuria active Vane Ana Laura Chronic pain active Vane Ana Laura Nausea active Vane Ana Laura Hepatitis C, chronic active Vane Ana Laura Liver cirrhosis active Vane Ana Laura ENCOUNTERS Date Type Provider Location Encounter Diagn osis - [facility] - [facility]ulatory Encounter Mir Carpio [facility] UNK - Ambulatory Encounter Fax Status [facility] UNK - Ambulatory Encounter Fax Status [facility] UNK - Ambulatory Encounter Fax Status [facility] UNK - Ambulatory Encounter Vane Ivano wicho Vane Ana Laura Jessica Maguire [facility] Hematuria - Ambulatory Encounter Vane Ana Laura [place] Ana Laura [facility] UNK - Ambulatory Encounter Vane Ivano va Vane Ana Laura TheoLogjohn Carpio [facility] UNK - Ambulatory Encounter Vane Ana Laura [place] Ana Laura [facility] UNK - Ambulatory Encounter Vane Ivano wicho Vane Ana Laura Mir Carpio [facility] UNK - Ambulatory Encounter Fax Status [facility] Services UNK - Ambulatory Encounter Fax Status [facility] UNK - Ambulatory Encounter Fax Status [facility] UNK - Ambulatory Encounter Jonelle Phillips [facility] Contact Center UNK - Ambulatory Encounter Vane Du [facility] UNK - Ambulatory Encounter [facility]ale [facility] Liver cirrhosisHepatitis C, chronicNauseaChronic pain VITAL SIGNS Date Observation Value Provider blood pressure, diastolic, second observation 91 mm[Hg] Debora Carpio " blood pressure, systolic, second observation 139 mm[Hg] Debora Carpio " oxygen saturation, oximetry 99 % Vero " blood pressure, diastolic 107 mm[Hg] Briseida Carpio " blood pressure, systolic 151 mm[Hg] Debora h Carpio " respiratory rate E&M 18 /min Deborath Gr anados " pulse rate E&M 115 /min Debora Bebeto s " temperature E&M 99.7 [degF] Debora Bebeto s " weight E&M 195 lbs. Debora Bebeto s " weight in kilograms E&M 88.64 kg Debmidpines Carpio " height E&M 69 [in_i] Debmidpines Bebeto s " height in centimeters E&M 175.26 cm Briseida " method used to obtain blood pressure automatic [facility] " Blood Pressure Position 01 sitting Debor Carpio " blood pressure, site #1 left arm Debmidpines Carpio " temperature site oral Deborath Granad os blood pressure, diastolic, second observation 90 mm[Hg] Debora Carpio " blood pressure, systolic, second observation 138 mm[Hg] Debora Carpio " oxygen saturation, oximetry 99 % [facility] " method used to obtain blood pressure automatic [facility] " Blood Pressure Position 01 sitting Debor ath [facility] " blood pressure, site #1 left arm [facility] " blood pressure, diastolic 88 mm[Hg] Briseida th [facility] " blood pressure, systolic 144 mm[Hg] Debmidpinest h [facility] " respiratory rate E&M 16 /min [facility] Gr anados " pulse rate E&M 105 /min [facility] " temperature site oral [facility] os " temperature E&M 99.5 [degF] Debmidpines [facility] s " weight E&M 202.20 lbs. [facility] Bebeto s " weight in kilograms E&M 91.91 kg [facility] " height E&M 69 [in_i] [facility] " height in centimeters E&M 175.26 cm Briseida [facility] Allergies No Known Allergy Information REASON FOR REFERRAL Start Date - End Date Service - Nephrology - External - Pain Management - External - Gastroenterology [...] times daily for michael sea - Vane Du ZOFRAN 4 MG ORAL TABLET take 1 tablet 3 times daily for nausea p rn Vane Du SOCIAL HISTORY Date Observation Value Provider time of call 04/02/2019 3:21 PM Jo muniz Exercise Program Referral T Carpio " Weight Management Counseling Provided T midpines Carpio " Nutrition intervention T midpines " drug use, illicit Never Deborath Luis Carlos dos " alcohol use Previously Debmidpinesth Bebeto s " social history reviewed E&M reviewed today Veroromeo guzman Carpio " is there any chance that you could be ? No Debmidpinesth Carpio " passive cigarette smoke exposure No Debmidpines Carpio " smoking status current every day smoker Deborat h Carpio time of call 02/27/2019 10:07 AM Keli Phillips " is there any chance that you could be ? No [facility] Carpio " Occupation #1 Disabled Debmidpinesth Bebeto s " patient considered to be homeless No [facility] " drug use, illicit Never Debora Luis Carlos dos " alcohol use Previously Deborath Bebeto s " smoking status current every day smoker Deborat h Carpio " passive cigarette smoke exposure No [facility] Carpio FUNCTIONAL STATUS No Information Available MENTAL STATUS Date Observation Value Provider assessment of mood and affect E&M no dep ression, anxiety, or agitation Vane Ana Laura " Generalized Anxiety Disorder Questionnaire - Que stion 2 0 [facility] Carpio " Generalized Anxiety Disorder Questionnaire - Que stion 1 0 [facility] assessment of judgment and insight E&M intact Vane Du " assessment of mood and affect E&M no depression, anxiety, or agitation Vane Ana Laura " Generalized Anxiety Disorder Questionnaire - Que stion 2 0 [facility] " Generalized Anxiety Disorder Questionnaire - Que stion 1 0 [facility] Carpio MEDICAL EQUIPMENT No Information Available FAMILY HISTORY No Information Available INSURANCE PROVIDERS No Information Available ADVANCE DIRECTIVES No Information Available TREATMENT PLAN Date Name Urinalysis Complete w/reflex to Culture TSH Lipid Panel Comp. Metabolic Panel (14) CBC With Differential/Platel et - - - Est Patient Exp Problem - 99 213 Venipuncture New Patient Detailed - 02534 HISTORY OF PROCEDURES Procedure Date Procedure Name Provider Procedure Notes Status Venipuncture Vane Du completed GOALS No Information Available HEALTH CONCERNS No Information Available
--- OUTSIDE RECORDS SUMMARY | 2019-08-14 06:16 | XMS REPORT ---
Author Author Admin, komoote Organization Unknown Address Unknown Phone Unavailable PROBLEMS Condition Status Date Provider Notes Hematuria active Vane Ana Laura Chronic pain active Vane Ana Laura Nausea active Vane Ana Laura Hepatitis C, chronic active Vane Ana Laura Liver cirrhosis active Vane Ana Laura ENCOUNTERS Date Type Provider Location Encounter Diagn osis - Ambulatory Encounter Mir Bosch [facility] UNK - Ambulatory Encounter Sisi Carpio [facility] UNK - Ambulatory Encounter Fax Status [facility] UNK - Ambulatory Encounter [facility] - Ambulatory Encounter F[facility] Status [facility] UNK - Ambulatory Encounter Vane Ivano wicho Vane Ana Laura Jessica Maguire [facility] Hematuria - Ambulatory Encounter Vane Ana Laura [place] Ana Laura [facility] UNK - Ambulatory Encounter Vane Ivano va Vane Ana Laura Rimma Carpio [facility] UNK - Ambulatory Encounter Vane Ana Laura [place] Ana Laura [facility] UNK - Ambulatory Encounter Vane Ivano va [facility]ane [facility] - [facility] UNK - Ambulatory Encounter Fax Status [facility] UNK - Ambulatory Encounter Fax Status [facility] UNK - Ambulatory Encounter Jonelle Phillips [facility] Services Contact Center UNK - Ambulatory Encounter Vane Du [facility] UNK - Ambulatory Encounter Vane Maguire [facility] Liver cirrhosisHepatitis C, chronicNauseaChronic pain VITAL SIGNS Date Observation Value Provider blood pressure, diastolic, second observation 91 mm[Hg] Debora Carpio " blood pressure, systolic, second observation 139 mm[Hg] Deb Carpio " oxygen saturation, oximetry 99 % Vero Carpio " blood pressure, diastolic 107 mm[Hg] Briseida Carpio " blood pressure, systolic 151 mm[Hg] Deborat h Carpio " respiratory rate E&M 18 /min [facility] Gr anados " pulse rate E&M 115 /min [place] Bebeto s " temperature E&M 99.7 [degF] Deb Bebeto s " weight E&M 195 lbs. Deb Bebeto s " weight in kilograms E&M 88.64 kg Debauxvasse Carpio " height E&M 69 [in_i] [place] Bebeto s " height in centimeters E&M 175.26 cm Carpio " method used to obtain blood pressure automatic [facility] Carpio " Blood Pressure Position 01 sitting Debme Carpio " blood pressure, site #1 left arm [place] Carpio " temperature site oral Debora Granad os blood pressure, diastolic, second observation 90 mm[Hg] Carpio " blood pressure, systolic, second observation 138 mm[Hg] [facility] " oxygen saturation, oximetry 99 % Vero [facility] " method used to obtain blood pressure automatic [facility] " Blood Pressure Position 01 sitting [facility] " blood pressure, site #1 left arm [facility] " blood pressure, diastolic 88 mm[Hg] Briseida [facility] " blood pressure, systolic 144 mm[Hg] [facility] h [facility] " respiratory rate E&M 16 /min [facility] Gr anados " pulse rate E&M 105 /min [facility] Bebeto s " temperature site oral [facility] " temperature E&M 99.5 [degF] [place] Bebeto s " weight E&M 202.20 [facility]. [facility] " weight in kilograms E&M 91.91 kg [facility] " height E&M 69 [in_i] [facility] Bebeto s " height in centimeters E&M 175.26 cm Briseida [facility] Allergies No Known Allergy Information REASON FOR [...] PM Jo muniz Exercise Program Referral T Briseida Carpio " Weight Management Counseling Provided T [place]vas[place] Carpio " Nutrition intervention T auxvasse " drug use, illicit Never Deborath Luis Carlos dos " alcohol use Previously [place] Bebeto s " social history reviewed E&M reviewed today Vero [facility] " is there any chance that you could be ? No [place] Carpio " passive cigarette smoke exposure No [place] Carpio " smoking status current every day smoker Deborat h Carpio time of call 02/27/2019 10:07 AM Keli Phillips " is there any chance that you could be ? No [facility] " [facility]ation #1 Disabled Debauxvasseth Bebeto s " patient considered to be homeless No [facility] " drug use, illicit Never [place] Luis Carlos dos " alcohol use Previously Deborath Bebeto s " smoking status current every day smoker Deborat h Carpio " passive cigarette smoke exposure No [place] Carpio FUNCTIONAL STATUS No Information Available MENTAL STATUS Date Observation Value Provider assessment of mood and affect E&M no dep ression, anxiety, or agitation Vane Du " Generalized Anxiety Disorder Questionnaire - Que stion 2 0 [place] Carpio " Generalized Anxiety Disorder Questionnaire - Que stion 1 0 [facility] Carpio assessment of judgment and insight E&M intact Vane Du " assessment of mood and affect E&M no depression, anxiety, or agitation Vane Ana Laura " Generalized Anxiety Disorder Questionnaire - Que stion 2 0 Debauxvasseth Carpio " Generalized Anxiety Disorder Questionnaire - Que stion 1 0 [facility] Carpio MEDICAL EQUIPMENT No Information Available FAMILY HISTORY No Information Available INSURANCE PROVIDERS No Information Available ADVANCE DIRECTIVES No Information Available TREATMENT PLAN Date Name Urinalysis Complete w/reflex to Culture TSH Lipid Panel Comp. Metabolic Panel (14) CBC With Differential/Platel et - - - Est Patient Exp Problem - 99 213 Venipuncture New Patient Detailed - 11948 HISTORY OF PROCEDURES Procedure Date Procedure Name Provider Procedure Notes Status Venipuncture Vane Du completed GOALS No Information Available HEALTH CONCERNS No Information Available
--- OUTSIDE RECORDS SUMMARY | 2019-08-14 06:17 | XMS REPORT ---
Author Author Admin, [employer] Organization Unknown Address Unknown Phone Unavailable PROBLEMS Condition Status Date Provider Notes Hematuria active Vane Ana Laura Chronic pain active Vane Ana Laura Nausea active Vane Ana Laura Hepatitis C, chronic active Vane Ana Laura Liver cirrhosis active Vane Ana Laura ENCOUNTERS Date Type Provider Location Encounter Diagn osis - Ambulatory Encounter Mir Vu MedAdherence Vane Ana Laura Vane Ana Laura [facility] Services UNK - Ambulatory Encounter Fax Status [facility] UNK - Ambulatory Encounter Fax Status [facility] UNK - Ambulatory Encounter Fax Status [facility] UNK - Ambulatory Encounter Fax Status [facility] UNK - Ambulatory Encounter Fax Status [facility] UNK - Ambulatory Encounter Vane Ivano va Vane Ana Laura [employer] [facility] UNK - Ambulatory Encounter Vane Ivano va Vane Ana Laura Candy Robertz [facility] UNK - Ambulatory Encounter [facility] UNK - Ambulatory Encounter Sisi Carpio [facility] UNK - Ambulatory Encounter [facility] UNK - Ambulatory Encounter Fax Status [facility] UNK - Ambulatory Encounter [facility] UNK - Ambulatory Encounter Vane Ivano wicho Peoplesia Ana Laurawicho Maguire [facility] Practice Hematuria - Ambulatory Encounter Vane Ana Laura [place] Ana Laura [facility] UNK - Ambulatory Encounter Vane Ivano wicho Peoplesia Ana Laura [facility] UNK - Ambulatory Encounter Vane Ana Laura [place] Ana Laura [facility] UNK - Ambulatory Encounter Vane Ivano wicho Peoplesia Ana Laura [facility] UNK - Ambulatory Encounter [facility] UNK - Ambulatory Encounter [facility] UNK - Ambulatory Encounter [facility] UNK - Ambulatory Encounter Jonelle Phillips [facility] Contact Center UNK - Ambulatory Encounter Vane Ana Laura [place] Ana Laura [facility] UNK - Ambulatory Encounter Vane Ivano va Vane Ana Laura [facility] Liver cirrhosisHepatitis C, chronicNauseaChronic pain VITAL SIGNS Date Observation Value Provider temperature site oral Candy Saldivar " temperature E&M 97.9 [degF] Candy Saldivar blood pressure, diastolic, second observation 91 mm[Hg] Deborath Carpio " blood pressure, systolic, second observation 139 mm[Hg] Deborath Carpio " oxygen saturation, oximetry 99 % [facility] " blood pressure, diastolic 107 mm[Hg] Briseida [...] method used to obtain blood pressure automatic [facility] " Blood Pressure Position 01 sitting Debor Carpio " blood pressure, site #1 left arm Deborath Carpio " temperature site oral Deborath Granad os blood pressure, diastolic, second observation 90 mm[Hg] Deborath Carpio " blood pressure, systolic, second observation 138 mm[Hg] Debora Carpio " oxygen saturation, oximetry 99 % Vero [facility] " method used to obtain blood pressure [facility] " Blood Pressure Position 01 sitting [facility] " blood pressure, site #1 left arm Deborath Carpio " blood pressure, diastolic 88 mm[Hg] Briseida " blood pressure, systolic 144 mm[Hg] Deborat h Carpio " respiratory rate E&M 16 /min Deborath Gr anados " pulse rate E&M 105 /min Deborath Bebeto s " temperature site oral Deborath Granad os " temperature E&M 99.5 [degF] Deborath Bebeto s " weight E&M 202.20 lbs. Deborath Bebeto s " weight in kilograms E&M 91.91 kg Deborath Carpio " height E&M 69 [in_i] Deborath Bebeto s " height in centimeters E&M 175.26 cm Briseida [facility] Allergies No Known Allergy Information REASON [...] 5.7 X10E3/UL [employer] 3.4-10.8 HISTORY OF IMMUNIZATIONS Date Vaccine Dose Lot Number Status Engerix-B IM 20 MCG/ML [id number] [employer] ne 2 mL 2224M completed HISTORY OF MEDICATION USE Medication Instructions Dates [...] Aldridge dos " alcohol use Previously Mir Tate s " social history reviewed E&M reviewed today Vero Carpio " is there any chance that you could be ? No Mir Carpio " passive cigarette smoke exposure No Mir Carpio " smoking status current every day smoker Renetta Carpio time of call 02/27/2019 10:07 AM Keli Phillips " is there any chance that you could be ? No Marcybellgiulia PowerCarpio " Occupation #1 Disabled Mir Bebeto s " patient considered to be homeless No [facility] Carpio " drug use, illicit Never Marcybellgiulia Aldridge dos " alcohol use Previously Mir Tate s " smoking status current every day smoker Deberibertot anson Carpio " passive cigarette smoke exposure No [facility] FUNCTIONAL STATUS No Information Available MENTAL STATUS Date Observation Value Provider assessment of mood and affect E&M no dep ression, anxiety, or agitation Vane Ana Laura " Generalized Anxiety Disorder Questionnaire - Que stion 2 0 [facility] " Generalized Anxiety Disorder Questionnaire - Que stion 1 0 [facility] assessment of judgment and insight E&M intact Vane Ana Laura " assessment of mood and affect E&M no depression, anxiety, or agitation Vane Ana Laura " Generalized Anxiety Disorder Questionnaire - Que stion 2 0 [facility] " Generalized Anxiety Disorder Questionnaire - Que stion 1 0 [facility] MEDICAL EQUIPMENT No Information Available FAMILY HISTORY No Information Available INSURANCE PROVIDERS No Information Available ADVANCE DIRECTIVES No Information Available TREATMENT PLAN Date Name Urinalysis Complete w/reflex to Culture TSH Lipid Panel Comp. Metabolic Panel (14) CBC With Differential/Platel et - - - First Vx - Ix admin for [facility] patients Engerix-B Injection Suspensi on 20 MCG/ML Vaccines Ordered - Print Con sent/Declination Forms Est Patient Exp Problem - 99 213 Venipuncture New Patient Detailed - 79572 HISTORY OF PROCEDURES Procedure Date Procedure Name Provider Procedure Notes Status First Vx - Ix admin for Medicare patients Vane Ryan ova completed Engerix-B Injection Suspension 20 MCG/ML Vane Ivano va completed Vaccines Ordered - Print Consent/Declination For ms Vane Ana Laura completed Venipuncture Vane Ana Laura completed GOALS No Information Available HEALTH CONCERNS No Information Available
--- OUTSIDE RECORDS SUMMARY | 2019-08-14 06:17 | XMS REPORT ---
[...] Location Encounter Diagn osis - Ambulatory Encounter Jonelle Plunkett [facility] UNK - Ambulatory Encounter Mir Carpio [facility] UNK - Ambulatory Encounter Mir Vu MedAdherence Vane Ana Laura Vane Ana Laura [facility] UNK - Ambulatory Encounter Fax Status [facility] UNK - Ambulatory Encounter Fax Status [facility] UNK - Ambulatory Encounter Fax Status [facility] UNK - Ambulatory Encounter Fax Status [facility] UNK - Ambulatory Encounter Fax Status [facility] UNK - Ambulatory Encounter Vane Ivano va Vane Ana Laura Rimma [facility] UNK - Ambulatory Encounter Vane Ivano va Vane Ana Laura Candy Saldivar [facility] UNK - Ambulatory Encounter Mir Lal [facility] Center UNK - Ambulatory Encounter Sisi Morales [facility] UNK - Ambulatory Encounter Fax Status [facility] Services UNK - Ambulatory Encounter Fax Status [facility] Services UNK - Ambulatory Encounter Fax Status [facility] Services UNK - Ambulatory Encounter Vane Ivano va Vane Ana Laura Jessica Maguire [facility] Hematuria - Ambulatory Encounter Vane Ana Laura [place] Ana Laura [facility] UNK - Ambulatory Encounter Vane Ivano va Vane Ana Laura [employer] Sisi Vidalrich [facility] UNK - Ambulatory Encounter Vane Ana Laura [place] Ana Laura [facility] UNK - Ambulatory Encounter Vane Ivano va Vane Ana Laura Marcyrich [facility] UNK - Ambulatory Encounter Fax Status [facility] Services UNK - Ambulatory Encounter Fax Status [facility] Services UNK - Ambulatory Encounter Fax Status [facility] Services UNK - Ambulatory Encounter Jonelle Phillips [facility] Contact Center UNK - Ambulatory Encounter Vane Ana Laura [place] Laura [facility] UNK - Ambulatory Encounter Vane Du Jessica Maguire Deborath Carpio [facility] Liver cirrhosisHepatitis C, chronicNauseaChronic [...] oximetry 99 % Vero rath Carpio " method used to obtain blood [...] Bebeto s " weight E&M 202.20 lbs. Mir dexter " weight in kilograms E&M 91.91 kg [...] Lot Number Status Engerix-B IM 20 MCG/ML [id number] [facility] ne 2 mL [id number] completed HISTORY OF MEDICATION USE Medication Instructions Dates Provider Comments ZOFRAN 4 MG ORAL TABLET take As Needed 3 times daily for michael sea - Vane Ana Laura ZOFRAN 4 MG ORAL TABLET take 1 tablet 3 times daily for nausea p rn Vane Ana Laura SOCIAL HISTORY Date Observation Value Provider time of call 06/11/2019 12:04 PM Haim Ramirez time of call 04/02/2019 3:21 PM Jo muniz Exercise Program Referral T Briseida Carpio " Weight Management Counseling Provided T Mir Carpio " Nutrition intervention T Mir Carpio " drug use, illicit Never Deborath Luis Carlos dos " alcohol use Previously Deborath Bebeto s " social history reviewed E&M reviewed today Veroromeo [employer] " is there any chance that you could be ? No Debsan joseth Carpio " passive cigarette [facility] " smoking status current every day smoker Deberibertot h Carpio time of call 02/27/2019 10:07 AM Keli Phillips " is there any chance that you could be ? [facility] " Occupation #1 Disabled Debsan josegiulia Bebeto s " patient considered to be homeless [facility] " drug use, illicit Never Deborath Luis Carlos dos " alcohol use Previously Debsan joseth Bebeto s " smoking status current every day smoker Renetta Carpio " passive cigarette smoke exposure No [facility] FUNCTIONAL STATUS No Information Available MENTAL STATUS Date Observation Value Provider assessment of mood and affect E&M no dep ression, anxiety, or agitation Vane Ana Laura " Generalized Anxiety Disorder Questionnaire - Que stion 2 0 [facility] " Generalized Anxiety Disorder Questionnaire - Que stion 1 0 [facility] assessment of judgment and insight E&M intact Vane Ana Laura " assessment of mood and affect E&M no depression, anxiety, or agitation Vane Ana Laura " Generalized Anxiety Disorder Questionnaire - Que stion 2 0 [facility] " Generalized Anxiety Disorder Questionnaire - Que stion 1 0 [facility] MEDICAL EQUIPMENT No Information Available FAMILY HISTORY No Information Available INSURANCE PROVIDERS No Information Available ADVANCE DIRECTIVES No Information Available TREATMENT PLAN Date Name Urinalysis Complete w/reflex to Culture TSH Lipid Panel Comp. Metabolic Panel (14) CBC With Differential/Platel et - - - First Vx - Ix admin for [facility] care patients Engerix-B Injection Suspensi on 20 MCG/ML Vaccines Ordered - Print Con sent/Declination Forms Est Patient Exp Problem - 99 213 Venipuncture New Patient Detailed - 68730 HISTORY OF PROCEDURES Procedure Date Procedure Name Provider Procedure Notes Status First Vx - Ix admin for Medicare patients Vane Davis ova completed Engerix-B Injection Suspension 20 MCG/ML Vane Chantale va completed Vaccines Ordered - Print Consent/Declination For ms Vane Du completed Venipuncture Vane Ana Laura completed GOALS No Information Available HEALTH CONCERNS No Information Available
--- OUTSIDE RECORDS SUMMARY | 2019-08-14 06:17 | XMS REPORT ---
Author Author Admin, Raymundo Jhonny Organization Unknown Address Unknown Phone Unavailable PROBLEMS Condition Status Date Provider Notes Hematuria active Vane Ana Laura Chronic pain active Vane Ana Laura Nausea active Vane Ana Laura Hepatitis C, chronic active Vane Ana Laura Liver cirrhosis active Vane Ana Laura ENCOUNTERS Date Type Provider Location Encounter Diagn osis - Ambulatory Encounter Mir Carpio [facility] UNK - Ambulatory Encounter Mir Vu MedAdherence Vane Ana Laura Vane Ana Laura [facility] Services UNK - Ambulatory Encounter Fax Status [facility] UNK - Ambulatory Encounter Fax Status [facility] UNK - Ambulatory Encounter Fax Status [facility] UNK - Ambulatory Encounter Fax Status [facility] UNK - Ambulatory Encounter Fax Status [facility] UNK - Ambulatory Encounter Vane Ivano va Vane Ana Laura [employer] [facility] UNK - Ambulatory Encounter Vane Ivano va Vane Ana Laura Candy Saldivar [facility] - [facility] - [facility]ulatory Encounter Sisi biswas [facility] UNK - Ambulatory Encounter Fax Status [facility] UNK - Ambulatory Encounter Fax Status [facility] UNK - Ambulatory Encounter Fax Status [facility] UNK - Ambulatory Encounter Vane Ivano va Vane Ana Laura Jessica Maguire [facility] Hematuria - Ambulatory Encounter Vane Ana Laura [place] Laura [facility] UNK - Ambulatory Encounter Vane Ivano va Vane Ana Laura [employer] [facility] UNK - Ambulatory Encounter Vane Ana Laura [place] Laura [facility] UNK - Ambulatory Encounter Vane Ivano va Vane Ana Laura Marcypebble beachgiulia [facility] UNK - Ambulatory Encounter Fax Status [facility] UNK - Ambulatory Encounter Fax Status [facility] UNK - Ambulatory Encounter Fax Status [facility] UNK - Ambulatory Encounter Jonelle Phillips [facility] Contact Center UNK - Ambulatory Encounter Vane Ana Laura [place] Laura [facility] UNK - Ambulatory Encounter Vane Ivano va Vane Ana Laura Jessica Vidalpebble beachgiulia [facility] Liver cirrhosisHepatitis C, chronicNauseaChronic pain VITAL SIGNS Date Observation Value Provider temperature site oral Candy Saldivar " temperature E&M 97.9 [degF] Candy Saldivar blood pressure, diastolic, second observation 91 mm[Hg] Debora Carpio " blood pressure, systolic, second observation 139 mm[Hg] Deborath Carpio " oxygen saturation, oximetry 99 % Vero rat Carpio " blood pressure, diastolic 107 mm[Hg] Briseida " blood pressure, systolic 151 mm[Hg] Deborat h Carpio " respiratory rate E&M 18 /min Deborath Gr anados " pulse rate E&M 115 /min Deborath Bebeto s " temperature E&M 99.7 [degF] Deborath Bebeto s " weight E&M 195 lbs. Deborath Bebeto s " weight in kilograms E&M 88.64 kg Deborath Carpio " height E&M 69 [in_i] Deb Bebeto s " height in centimeters E&M 175.26 cm Briseida " method used to obtain blood pressure automatic [facility] " Blood Pressure Position 01 sitting Debor Carpio " blood pressure, site #1 left arm Deborath Carpio " temperature site oral Debpebble beachth Gran os blood pressure, diastolic, second observation 90 mm[Hg] Deb Carpio " blood pressure, systolic, second observation 138 mm[Hg] Deb Carpio " oxygen saturation, oximetry 99 % Vero [facility] " method used to obtain blood pressure automatic [facility] " Blood Pressure Position 01 sitting Debor [...] Deborath Carpio " height E&M 69 [in_i] Mir Tate s " height in centimeters E&M 175.26 [...] Lot Number Status Engerix-B IM 20 MCG/ML [id number] ne 2 mL [id number] completed HISTORY OF [...] No Mir Carpio " Occupation #1 Disabled Briseidagiulia Bebeto s " patient considered to be homeless No Mir Carpio " drug use, illicit Never Marcypebble beachgiulia Aldridge dos " alcohol use Previously Marcypebble beachgiulia Tate s " smoking status current every day smoker Marcypebble beachmichell Carpio " passive cigarette smoke exposure No [facility] FUNCTIONAL STATUS No Information Available MENTAL STATUS Date Observation Value Provider assessment of mood and affect E&M no dep ression, anxiety, or agitation Vane Ana Laura " Generalized Anxiety Disorder Questionnaire - Que stion 2 0 [facility] Carpio " Generalized Anxiety Disorder Questionnaire - Que stion 1 0 Briseida Carpio assessment of judgment and insight E&M intact Vane Ana Laura " assessment of mood and affect E&M no depression, anxiety, or agitation Vane Ana Laura " Generalized Anxiety Disorder Questionnaire - Que stion 2 0 [facility] " Generalized Anxiety Disorder Questionnaire - Que stion 1 0 [facility] MEDICAL EQUIPMENT No Information Available FAMILY HISTORY No Information Available INSURANCE PROVIDERS No Information Available ADVANCE DIRECTIVES No Information Available TREATMENT PLAN Date Name Urinalysis Complete w/reflex to Culture TSH Lipid Panel Comp. Metabolic Panel (14) CBC With Differential/Platel et - - - First Vx - Ix admin for [facility] care patients Engerix-B Injection Suspensi on 20 MCG/ML Vaccines Ordered - Print Con sent/Declination Forms Est Patient Exp Problem - 99 213 Venipuncture New Patient Detailed - 49089 HISTORY OF PROCEDURES Procedure Date Procedure Name Provider Procedure Notes Status First Vx - Ix admin for Medicare patients Vane Ryan ova completed Engerix-B Injection Suspension 20 MCG/ML Vane Ivano va completed Vaccines Ordered - Print Consent/Declination For ms Vane Du completed Venipuncture Vane Ana Laura completed GOALS No Information Available HEALTH CONCERNS No Information Available
[2019-08-14 06:34] LABS: BASOPHILS % 0.8 % (0.0-1.0); EOSINOPHILS # (AUTO) 0.4 (0.0-0.4); EOSINOPHILS % 10.1 % (0.0-6.0); HEMATOCRIT 27.8 % (38.2-49.6); HEMOGLOBIN 8.4 g/dL (14.0-18.0); LYMPHOCYTES # (AUTO) 1.2 (1.0-3.2); LYMPHOCYTES % 32.8 % (18.0-39.1); MEAN CORPUSCULAR HEMOGLOBIN 21.8 pg (28-32); MEAN CORPUSCULAR HGB CONC 30.2 g/dL (31-35); MEAN CORPUSCULAR VOLUME 72.2 fL (81-99); MONOCYTES # (AUTO) 0.7 (0.2-0.8); NEUTROPHILS # (AUTO) 1.4 (2.1-6.9); RED BLOOD COUNT 3.85 x10e6/uL (4.3-5.7); RED CELL DISTRIBUTION WIDTH 19.9 % (11.7-14.4)
[2019-08-14] MEDS ORDERED: DIATRIZOATE MEGL/DIATRIZOA SOD 30 ML BTL PO ONE (06:40)
[2019-08-14 07:08] LABS: ALBUMIN/GLOBULIN RATIO 0.5 (0.8-2.0); ANION GAP 16.8 mmol/L (8-16); CALCIUM 8.8 mg/dL (8.4-10.2); CREATININE, SERUM 1.35 mg/dL (0.72-1.25)
[2019-08-14 07:10] LABS: POTASSIUM 2.8 mmol/L (3.5-5.1)
--- NOTE | 2019-08-14 07:10 | NUR ---
NOTIFIED PRIMARY NURSE OF POTASSIUM LEVEL.
[2019-08-14 07:11] LABS: CREATINE KINASE MB 2.6 ng/mL (0-5.0)
[2019-08-14 07:24] LABS: ANISOCYTOSIS MODERATE; HYPOCHROMASIA MODERATE; OVALOCYTES MODERATE; PLATELET ESTIMATE MARKEDLY DECREASED; PLATELET MORPHOLOGY COMMENT FEW LARGE; RBC MORPHOLOGY COMMENT ABNORMAL
[2019-08-14 07:25] LABS: POIKILOCYTOSIS SLIGHT
[2019-08-14 07:26] LABS: PLATELET COUNT 28 x10e3/uL (140-360)
[2019-08-14] MEDS ORDERED: POTASSIUM CHLORIDE 20 MEQ TAB CR PO STA (07:39)
[2019-08-14] MEDS ORDERED: KCL 20MEQ/.9 SOD CHL 1,000 ML IV ONE (07:45)
[2019-08-14] MEDS ORDERED: SODIUM CHLORIDE 0.9% 50ML 0 ML ONE (07:53)
[2019-08-14] MEDS ORDERED: POTASSIUM CHLORIDE 20 MEQ TAB CR PO ONE (07:54)
[2019-08-14] MEDS ORDERED: IOPAMIDOL 370 MG/ML 200 ML INFUS..BTL INJ ONE (07:54)
[2019-08-14] MEDS ORDERED: ONDANSETRON HCL INJ 2MG/ML 2ML 2 MG/ML VIAL IV STA (08:10)
[2019-08-14] MEDS ORDERED: MORPHINE SULFATE 2 MG/ML SYR 1ML IV STA (08:10)
--- NOTE | 2019-08-14 08:41 | Diagnostic Imaging Report ---
CT BRAIN WO HISTORY: Altered mental status COMPARISON: None. TECHNIQUE: Noncontrast axial scans were obtained from skull base to the vertex. Coronal and sagittal reconstructions obtained from the axial data. One or more of the following dose reduction techniques were used: Automated exposure control, adjustment of the mA and/or kV according to patient size, and/or utilization of iterative reconstruction technique. DISCUSSION: Scalp/Skull: Unremarkable. Brain sulci: Mildly prominent. Ventricles: Mild compensatory dilatation. Extra-axial spaces: No masses or fluid collections. Parenchyma: No abnormal densities. No mass, hemorrhage, or large vascular territory acute infarct. Dural sinuses: No abnormal densities. Sellar/Suprasellar region: Intact. Skull base: Intact. Incidental findings: Small metallic foreign body is seen within the left ethmoid air cells. Mild scattered paranasal sinus mucosal thickening is present. IMPRESSION: 1. No acute intracranial abnormalities. 2. Mild generalized cerebral volume loss. 3. Small metallic foreign body in the left ethmoid air cells. This can be correlated with trauma history. Signed by: Dr. Ayan Woods M.D. on 08/14/2019 8:38 AM
--- NOTE | 2019-08-14 09:07 | Diagnostic Imaging Report ---
EXAMINATION: CT of the abdomen and pelvis with contrast. TECHNIQUE: Spiral CT images of the abdomen and pelvis were performed from the lung bases to the lesser trochanters after the intravenous administration of 100 cc of Isovue 370. Coronal and sagittal reformatted images were obtained. COMPARISON: None. CLINICAL HISTORY:Lower abdominal pain, reports history of cirrhosis DISCUSSION: ABDOMEN/PELVIS: LOWER THORAX:Lung bases are unremarkable. No pleural effusion. HEPATOBILIARY: The liver is diffusely hypoattenuating with a nodular external contour and relative hypertrophy of the left lobe. No focal hepatic lesion or intrahepatic biliary dilatation. No radiopaque gallstones. SPLEEN: Mild splenomegaly (13.5 cm in maximum span.) PANCREAS: No focal masses or ductal dilatation. ADRENALS: No adrenal nodules. KIDNEYS/URETERS: Punctate nonobstructing calculus in the interpolar right kidney. No hydronephrosis. No additional renal, ureteral, or bladder calculi. No solid renal mass lesion. PELVIC ORGANS/BLADDER: Urinary bladder, prostate, and seminal vesicles are unremarkable. PERITONEUM/RETROPERITONEUM: Small amount of perihepatic ascites tracking along the right paracolic gutter, average internal attenuation 0-5 Hounsfield units. LYMPH NODES: No pelvic sidewall, retroperitoneal, or mesenteric lymphadenopathy. Mildly prominent likely reactive portacaval lymph node. VESSELS: Abdominal aorta, major branch vessels, and iliac arterial systems are patent. Portal vein, splenic vein, and central superior mesenteric vein are patent. GI TRACT: Large bowel shows no distension or wall thickening. Appendix is normal. No small bowel dilatation to suggest obstruction. BONES AND SOFT TISSUE: No osseous destructive lesions. Bilateral gynecomastia. IMPRESSION: Cirrhosis with portal hypertension evidenced by splenomegaly and small volume ascites. Nonobstructing punctate right renal calculus. Signed by: Dr. Mannie Figueroa M.D. on 08/14/2019 9:04 AM
[2019-08-14] MEDS ORDERED: MAGNESIUM SULFATE 2GM/50ML 50 ML IV ONE ×3 (09:30→19:15)
[2019-08-14 09:31] LABS: AMPHETAMINES SCREEN,URINE NEGATIVE (NEGATIVE); BENZODIAZEPINES SCREEN,URINE NEGATIVE (NEGATIVE); PHENCYCLIDINE SCREEN,URINE NEGATIVE (NEGATIVE)
[2019-08-14 09:33] LABS: CLARITY,URINE CLEAR (CLEAR); COLOR,URINE YELLOW (YELLOW); KETONES,URINE NEGATIVE (NEGATIVE); LEUKOCYTE ESTERASE ,URINE NEGATIVE (NEGATIVE); NITRITE,URINE NEGATIVE (NEGATIVE); PROTEIN,URINE DIPSTICK NEGATIVE (NEGATIVE); URINE UROBILINOGEN 0.2 mg/dL (0.2 - 1)
[2019-08-14 09:34] LABS: BILIRUBIN,URINE NEGATIVE (NEGATIVE)
--- NOTE | 2019-08-14 09:38 | Emergency Department Note ---
History of Present Illnes History of Present Illness Chief Complaint: Abdominal Complaints History of Present Illness This is a 49 year old male c/o severe lower abdominal pain that has been going on for 3 days. Patient c/o nausea and vomiting. Patient states he has had about 3-4 glasses of whiskey tonight. Patient is a poor historian. Historian: Patient Arrival Mode: Car Disposal Operator Required: No Onset (how long ago): day(s) (3) Location: abdomen Quality: pain Radiation: non-radiation Severity: moderate Onset quality: gradual Duration (how long): day(s) (3) Timing of current episode: intermittent Progression: waxing and waning Chronicity: new Context: recent illness Relieving factors: none Exacerbating factors: none Associated symptoms: denies other symptoms Treatments prior to arrival: none Past Medical/Family History Physician Review I have reviewed the patient's past medical and family history. Any updates have been documented here. Past Medical History Recent Fever: No Clinical Suspicion of Infectio: No New/Unexplained Change in Ment: No Past Medical History: Hypertension, Liver Disease Other Medical History: LIVER CIRROHSIS ETOH ABUSE ACITIES WITH TAPS DONE HEP C Other Surgery: UNKNOWN - SCAR ON ABDOMEN - HE SAYS "THEY OPERATED ON MY STOMACH" Social History Smoking Cessation: Current every day smoker Counseling Performed: Yes Alcohol Use: Occasional Any Illegal Drug Use: No TB Exposure/Symptoms: No Physically hurt or threatened: No Other Last Tetanus: NO Any Pre-Existing Lines (PICC,: No Is patient up to date on immun: Yes Last Flu: UTD Last Pneumovax: NONE Review of Systems Review of Systems Constitutional: no symptoms EENTM: no symptoms Cardiovascular: no symptoms Respiratory: no symptoms Gastrointestinal: abdominal pain, nausea, vomiting Genitourinary: no symptoms Musculoskeletal: no symptoms Neurological: no symptoms Psychological: no symptoms Endocrine: no symptoms Hematological/Lymphatic: no symptoms Review of other systems All other systems reviewed and negative. Physical Exam Related Data Allergies: Coded Allergies: No Known Allergies (Unverified , 05/23/16) Triage Vital Signs Vital Signs Date Time Temp Pulse Resp B/P (MAP) Pulse Ox O2 Delivery O2 Flow Rate FiO2 08/14/19 06:14 98.1 106 24 109/91 99 Vital signs reviewed: Yes Physical Exam CONSTITUTIONAL Constitutional: ill appearing HENT HENT: normocephalic, atraumatic, oropharynx clear/moist, nose normal HENT L/R: left ext ear normal, right ext ear normal EYES Eyes: PERRL, conjunctivae normal NECK Neck: ROM normal PULMONARY Pulmonary: effort normal, breath sounds normal CARDIOVASCULAR Cardiovascular: regular rhythm, heart sounds normal, capillary refill normal, normal rate GASTROINTESTINAL Abdominal: soft, bowel sounds normal, tender (DIFFUSELY TENDER WORSE IN BILATERAL LOWER QUADRANTS WITH NO REBOUND/GAURDING); guarding, mass, rebound, left CVA tenderness, right CVA tenderness GENITOURINARY Genitourinary: exam deferred SKIN Skin: warm, dry MUSCULOSKELETAL Musculoskeletal: ROM normal NEUROLOGICAL Neurological: alert, oriented x 3, no gross motor or sensory deficits PSYCHOLOGICAL Psychological: mood/affect normal, judgement normal Results Laboratory Result Diagram: 08/14/19 0525 08/14/19 0525 Laboratory Laboratory Tests Test 08/14/19 08:54 08/14/19 05:25 White Blood Count 3.66 x10e3/uL (4.8-10.8) Red Blood Count 3.85 x10e6/uL (4.3-5.7) Hemoglobin 8.4 g/dL (14.0-18.0) Hematocrit 27.8 % (38.2-49.6) Mean Corpuscular Volume 72.2 fL (81-99) Mean Corpuscular Hemoglobin 21.8 pg (28-32) Mean Corpuscular Hemoglobin Concent 30.2 g/dL (31-35) Red Cell Distribution Width 19.9 % (11.7-14.4) Platelet Count 28 x10e3/uL (140-360) Neutrophils (%) (Auto) 38.0 % (38.7-80.0) Lymphocytes (%) (Auto) 32.8 % (18.0-39.1) Monocytes (%) (Auto) 18.0 % (4.4-11.3) Eosinophils (%) (Auto) 10.1 % (0.0-6.0) Basophils (%) (Auto) 0.8 % (0.0-1.0) Neutrophils # (Auto) 1.4 (2.1-6.9) Lymphocytes # (Auto) 1.2 (1.0-3.2) Monocytes # (Auto) 0.7 (0.2-0.8) Eosinophils # (Auto) 0.4 (0.0-0.4) Basophils # (Auto) 0.0 (0.0-0.1) Absolute Immature Granulocyte (auto 0.01 x10e3/uL (0-0.1) Platelet Estimate Markedly decreased Clumped Platelets None (NONE) Platelet Morphology Comment Few large Hypochromasia Moderate Poikilocytosis Slight Anisocytosis Moderate Ovalocytes Moderate Red Cell Morphology Comment Abnormal Sodium Level 130 mmol/L (136-145) Potassium Level 2.8 mmol/L (3.5-5.1) Chloride Level 95 mmol/L (98-107) Carbon Dioxide Level 21 mmol/L (22-29) Anion Gap 16.8 mmol/L (8-16) Blood Urea Nitrogen 9 mg/dL (7-26) Creatinine 1.35 mg/dL (0.72-1.25) Estimat Glomerular Filtration Rate 56 ML/MIN (60-) BUN/Creatinine Ratio 7 (6-25) Glucose Level 101 mg/dL (74-118) Calcium Level 8.8 mg/dL (8.4-10.2) Magnesium Level 1.2 MG/DL (1.3-2.1) Total Bilirubin 3.1 mg/dL (0.2-1.2) Aspartate Amino Transf (AST/SGOT) 72 IU/L (5-34) Alanine Aminotransferase (ALT/SGPT) 22 IU/L (0-55) Alkaline Phosphatase 86 IU/L (40-150) Ammonia 144 UG/DL (31-123) Creatine Kinase 239 IU/L (30-200) Creatine Kinase MB 2.60 ng/mL (0-5.0) Troponin I 0.008 ng/mL (0-0.300) Total Protein 9.0 g/dL (6.5-8.1) Albumin 3.0 g/dL (3.5-5.0) Globulin 6.0 g/dL (2.3-3.5) Albumin/Globulin Ratio 0.5 (0.8-2.0) Amylase Level 98 U/L (25-125) Lipase 23 U/L (8-78) Acetaminophen Level < 3.0 ug/mL (10-30) Ethyl Alcohol Level 301.6 mg/dL (0.0-10.0) Lab results reviewed: Yes Imaging Imaging results reviewed: Yes Impressions EXAMINATION: CT of the abdomen and pelvis with contrast. TECHNIQUE: Spiral CT images of the abdomen and pelvis were performed from the lung bases to the lesser trochanters after the intravenous administration of 100 cc of Isovue 370. Coronal and sagittal reformatted images were obtained. COMPARISON: None. CLINICAL HISTORY:Lower abdominal pain, reports history of cirrhosis DISCUSSION: ABDOMEN/PELVIS: LOWER THORAX:Lung bases are unremarkable. No pleural effusion. HEPATOBILIARY: The liver is diffusely hypoattenuating with a nodular external contour and relative hypertrophy of the left lobe. No focal hepatic lesion or intrahepatic biliary dilatation. No radiopaque gallstones. SPLEEN: Mild splenomegaly (13.5 cm in maximum span.) PANCREAS: No focal masses or ductal dilatation. ADRENALS: No adrenal nodules. KIDNEYS/URETERS: Punctate nonobstructing calculus in the interpolar right kidney. No hydronephrosis. No additional renal, ureteral, or bladder calculi. No solid renal mass lesion. PELVIC ORGANS/BLADDER: Urinary bladder, prostate, and seminal vesicles are unremarkable. PERITONEUM/RETROPERITONEUM: Small amount of perihepatic ascites tracking along the right paracolic gutter, average internal attenuation 0-5 Hounsfield units. LYMPH NODES: No pelvic sidewall, retroperitoneal, or mesenteric lymphadenopathy. Mildly prominent likely reactive portacaval lymph node. VESSELS: Abdominal aorta, major branch vessels, and iliac arterial systems are patent. Portal vein, splenic vein, and central superior mesenteric vein are patent. GI TRACT: Large bowel shows no distension or wall thickening. Appendix is normal. No small bowel dilatation to suggest obstruction. BONES AND SOFT TISSUE: No osseous destructive lesions. Bilateral gynecomastia. IMPRESSION: Cirrhosis with portal hypertension evidenced by splenomegaly and small volume ascites. Nonobstructing punctate right renal calculus. Signed by: Dr. Mannie Figueroa M.D. on 08/14/2019 9:[address] BRAIN WO HISTORY: Altered mental status COMPARISON: None. TECHNIQUE: Noncontrast axial scans were obtained from skull base to the vertex. Coronal and sagittal reconstructions obtained from the axial data. One or more of the following dose reduction techniques were used: Automated exposure control, adjustment of the mA and/or kV according to patient size, and/or utilization of iterative reconstruction technique. DISCUSSION: Scalp/Skull: Unremarkable. Brain sulci: Mildly prominent. Ventricles: Mild compensatory dilatation. Extra-axial spaces: No masses or fluid collections. Parenchyma: No abnormal densities. No mass, hemorrhage, or large vascular territory acute infarct. Dural sinuses: No abnormal densities. Sellar/Suprasellar region: Intact. Skull base: Intact. Incidental findings: Small metallic foreign body is seen within the left ethmoid air cells. Mild scattered paranasal sinus mucosal thickening is present. IMPRESSION: 1. No acute intracranial abnormalities. 2. Mild generalized cerebral volume loss. 3. Small metallic foreign body in the left ethmoid air cells. This can be correlated with trauma history. Signed by: Dr. Ayan Woods M.D. on 08/14/2019 8:38 AM Diagnostics Tests Diagnostic test(s) reviewed: Yes Procedures 12 Lead ECG Interpretation Disposal Operator: Interpreted by ED physician Date: Aug 14, 2019 Time: 06:08 Prior [employer] tracings: reviewed Rhythm: sinus tachycardia Rate: tachycardia (106) QRS axis: left ST segments normal: Yes T waves normal: Yes Other findings: LVH, LAE Clinical Impression: abnormal ECG Critical Care Time Subsequent provider I assumed direction of critical care for this patient from another provider of my specialty. Assessment & Plan Reassessment Reassessment ABD PAIN IN PT WITH H/O CIRRHOSIS & EtOH ABUSE, CONFUSION PER NURSES BUT PT AOX4 FOR ME - CHECK CBC, CHEM'S, CARDIAC ENZYMES, UA, PT/PTT, NH3, UDS, ETOH, CT ABD/PELVIS - R/O LEUKOCYTOSIS, ASCITES, HEPATIC ENCEPHALOPATHY, COAGULOPATHY WITH BLEEDING, THROMBOCYTOPENIA, ETOH INTOX, APPENDICITIS, SBP, BOWEL OBSTRUCTION, ETC PLATELETS LOW AND REPORTED CONFUSION EARLIER - WILL GET CT HEAD R/O CEREBRAL BLEED Assessment & Plan Final Impression: (1) OTHER PANCYTOPENIA (2) HYPOKALEMIA (3) HYPOMAGNESEMIA (4) TOXIC EFFECT OF ETHANOL, UNDETERMINED, SEQUELA (5) Abdominal pain (6) Alcoholic cirrhosis of liver with ascites Assessment & Plan ADMIT TO DR KELLY Depart Disposition: ADMITTED Last Vital Signs Date Time Temp Pulse Resp B/P (MAP) Pulse Ox O2 Delivery O2 Flow Rate FiO2 08/14/19 08:45 93 18 114/77 100 08/14/19 06:14 98.1 Home Meds Reported Medications Acetaminophen With Codeine (TYLENOL WITH CODEINE #3 TABLET) 1 Each Tablet, 300 MG PO [id number] PRN for PAIN, TAB 06/17/17 Spironolactone (SPIRONOLACTONE) 25 Mg Tablet, 50 MG PO DAILY, #60 TAB 06/15/17 Furosemide (LASIX) 40 Mg Tablet, 40 MG PO BID, #30 TAB 06/15/17 Medications in the ED Diatrizoate Meglum/ Diatrizoate Sod 30 ml STK-MED ONCE PO ; Start 08/14/19 at 06:40; Stop 08/14/19 at 06:35; Status DC Potassium Chloride 40 meq NOW STAT PO Last administered on 08/14/19at 07:53; Admin Dose 40 MEQ; Start 08/14/19 at 07:39; Stop 08/14/19 at 07:49; Status DC Potassium Chloride/Sodium Chloride 1,000 ml @ 250 mls/hr Q4H ONCE IV Last administered on 08/14/19at 07:53; Admin Dose 250 MLS/HR; Start 08/14/19 at 07:45; Stop 08/14/19 at 11:44 Sodium Chloride 0 ml @ ud STK-MED ONCE .ROUTE ; Start 08/14/19 at 07:53; Stop 08/14/19 at 07:48; Status DC Iopamidol 74,000 mg STK-MED ONCE INJ ; Start 08/14/19 at 07:54; Stop 08/14/19 at 07:48; Status DC Potassium Chloride 40 meq STK-MED ONCE PO ; Start 08/14/19 at 07:54; Stop 08/14/19 at 07:50; Status DC Morphine Sulfate 2 mg ONCE STAT IV Last administered on 08/14/19at 08:53; Admin Dose 2 MG; Start 08/14/19 at 08:10; Stop 08/14/19 at 08:24; Status DC Ondansetron HCl 4 mg ONCE STAT IV Last administered on 08/14/19at 08:53; Admin Dose 4 MG; Start 08/14/19 at 08:10; Stop 08/14/19 at 08:24; Status DC Magnesium Sulfate 50 ml @ 25 mls/hr ONCE ONCE IV ; Start 08/14/19 at 09:30; Stop 08/14/19 at 11:29; Status GOLDEN PITTMAN MD Aug 14, 2019 09:38
[2019-08-14] MEDS ORDERED: MULTIVITAMINS- 12 INJECTION 10 ML, FOLIC ACID MDV 5 MG, THIAMINE HCL INJ 100 MG in SODI... IV ONE (09:45)
[2019-08-14 10:01] LABS: EPITHELIAL CELLS,URINE MANY /LPF
[2019-08-14 10:02] LABS: RBC,URINE >50 /HPF (0-5); WBC,URINE (MAN) 21-50 /HPF (0-5)
[2019-08-14 10:03] LABS: BACTERIA,URINE FEW /HPF
[2019-08-14] MEDS ORDERED: ONDANSETRON HCL INJ 2MG/ML 2ML 2 MG/ML VIAL IV PRN (10:15)
[2019-08-14] MEDS ORDERED: LACTULOSE20 GM/30 M PO (10:35)
--- OUTSIDE RECORDS SUMMARY | 2019-08-14 10:37 | XMS REPORT | Continuity of Care Document ---
Author Author [facility] t Organization [facility] Address [address] [place] [address] Phone Unavailable Care Team Providers Care Early Childhood Teacher Name Role Phone NO, PCP PCP Unavailable Irma WANG Attphys Unavailable Puneet Banks Attphys Nabeel Valero Nigel Attphys Bill Berger Attphys Eli Delgado Attphys Casi Justice Attphys ROME HOPPER Attphys Unavailable Nabeel Valero Nigel Admphys Tamika Guzman Admphys ROME HOPPER Admphys Unavailable Payers Payer Name Policy Type Policy Number Effective Date Expiration Date S ource Problems Condition Name Condition Details Condition Category Status Onset Date Resolution Date Last Treatment Date Treating Clinician Comments Source ABDOMINAL PAIN ABDO YOLIS PAIN Active 02/26/2019 [facility] Active 2019-02-26 00:00:00 2019-02-26 16:11:00 [facility] ABD PAIN ABD PAIN Active 08/24/2018 [facility] Active 2018-08-24 00:00:00 2018-08-24 21:51:00 [facility] BLOODY STOOL/STOMACH PAIN BLOO DY STOOL/STOMACH PAIN Active 06/01/2018 [facility] Active 2018-06-01 00:00: 00 2018-06-01 10:32:00 [facility] GIB, LIVER CIRRHOSIS, ABD PAIN, PORTAL V GIB, LIVER CIRRHOSIS, ABD PAIN, PORTAL V Active 06/01/2018 [facility] Active 2018-06-01 00:00:00 2018-06-06 16:57:00 [facility] HEADACHE HEAD ACHE Active 04/18/2018 [facility] Diagnosis Active 2018-04-18 00:00:00 2019-07-01 13:22:00 [facility] OTHER OTHE R Active 09/16/2017 [facility] Active 2017-09-16 00:00:00 2017-11-16 10:48:00 [facility] Abdominal pain Abdominal pain Problem Active [facility] Alcoholic cirrhosis of liver with ascites Alcoholic ci rrhosis of liver with ascites Problem Active [facility] Fever Fever Problem Active [facility] Headache Head ache 11/05/2018 [facility] 2018-11-05 16:44:23 [facility] Liver disease, unspecified Tonya er disease, unspecified 11/05/2018 [facility] 2018-11-05 16:44:2 3 [facility] Chest pain, unspecified Ches t pain, unspecified 11/05/2018 [facility] 2018-11-05 16:44:23 [facility] GASTROINTESTINAL HEMORRHAGE, UNSPECIFIED GASTROINTESTINAL HEMORRHAGE, UNSPECIFIED Active [facility] Diagnosis Active 2018-06-06 16:57:00 [facility] UNSPECIFIED CIRRHOSIS OF LIVER UNSPECIFIED CIRRHOSIS OF LIVER Active [facility] Diagnosis Active 201 11-13-26 16:57:00 [facility] UNSPECIFIED ABDOMINAL PAIN UNS PECIFIED ABDOMINAL PAIN Active [facility] Active 2018-06-06 16:57:0 0 [facility] Encounter for examination and observation following ot her accident Encounter for examination and observation following other accident 04/24/2018 11/05/2018 [facility] Problem 2018-04-24 05:08:12 2018 16:44:23 2018-11-05 16:44:23 [facility] Unspecified abdominal pain Uns pecified abdominal pain 09/16/2017 09/19/2017 [place] Problem 2017-09-16 05:00 :00 2017-09-19 01:50:07 2017-09-19 01:50:07 [facility] Allergies, Adverse Reactions, Alerts Allergy Name Allergy Type Status Severity Reaction(s) Onset Date Inacti ve Date Treating Clinician Comments Source No Known Allergies DA Active U 2019-01-15 00:00:00 [facility] No Known Allergies DA Active U 2018-05-05 00:00:00 [facility] No Known Allergies DA Active U 2018-04-09 00:00:00 [facility] No Known Allergies DA Active U 2017-12-18 00:00:00 [facility] No Known Allergies DA Active U 2017-08-03 00:00:00 [facility] No Known Allergies DA Active U 2017-06-03 00:00:00 [facility] No Known Medication Allergies No Known Medication Allergies Active [facility] Social History Social Habit Start Date Stop Date Quantity Comments Source Social History 2018-06-02 00:41:01 2018-06-02 00:41:01 [facility] Medications Ordered Medication Name Filled Medication Name Start Date Stop Da te Current Medication? Ordering Clinician Indication Dosage Frequency Signature (SIG) Comments Components Source Saline Flush 0.9% 2019-02-26 17:34:00 No Notes: Same as: BD Posiflush Sterile [facility] Saline Flush 0.9% 2018-08-25 02:09:00 No Notes: (Same as: BD Posiflush) [facility] Rocephin 2018-08-04 10:01:00 No 1 gm, Route: IVPB, Drug form: PDR/INJ, ONCE, Dosing Weight 90.909, kg, Priority: STAT, Start date: 08/04/18 5:01:00 CDT, Stop date: 08/04/18 5:01:00 CDT, ABX Indication: Intra-abdominal Infection [facility] Fentanyl 2018-08-04 06:35:00 No 50 microgram, Route: IVP, ONCE, Dosing Weight 90.909, kg, Priority: STAT, Start date: 08/04/18 1:35:00 CDT, Stop date: 08/04/18 1:35:00 CDT [facility] Zofran 2018-08-04 06:34:00 No 4 mg, Route: IVP, Drug form: INJ, ONCE, Dosing Weight 90.909, kg, Priority: STAT, Start date: 08/04/18 1:34:00 CDT, Stop date: 08/04/18 1:34:00 CDT [facility] Fentanyl 2018-08-04 06:28:00 No 25 microgram, Route: IVP, ONCE, Dosing Weight 90.909, kg, Priority: STAT, Start date: 08/04/18 1:28:00 CDT, Stop date: 08/04/18 1:28:00 CDT [facility] Octreotide 2018-08-04 06:26:00 No 50 microgram, Route: IV, ONCE, Dosing Weight 90.909, kg, Start date: 08/04/18 1:26:00 CDT, Stop date: 08/04/18 1:26:00 CDT [facility] pantoprazole 2018-08-04 06:26:00 No 80 mg, Route: IVP, ONCE, Dosing Weight 90.909, kg, Priority: STAT, Start date: 08/04/18 1:26:00 CDT, Stop date: 08/04/18 1:26:00 CDT [facility] Sodium Chloride 0.9% (Bolus) IV 2018-08-04 06:26:00 No 1,000 mL, Infuse Over: 1 hr, Route: IV, ONCE, Priority: STAT, Dosing Weight 90.909 kg, Start date: 08/04/18 1:26:00 CDT, Stop date: 08/04/18 1:26:00 CDT [facility] Spironolactone 2018-06-06 14:00:00 No Notes: (Same As: Aldactone) [facility] Furosemide 40 MG Oral Tablet 2018-06-06 14:00:00 No Notes: (Same as: Lasix) May cause GI upset. Give with food or milk. [facility] Folic Acid 2018-06-06 14:00:00 No Notes: (S faheem as: Folvite) [facility] riFAXimin 550 mg oral tablet 2018-06-05 22:30:00 Yes 550 mg = 1 tab, PO, Q12H, # 60 tab, 0 Refill(s), Pharmacy: [facility]/pharmacy #[id number] [facility] Ondansetron 4 MG Oral Tablet [Zofran] 2018-06-05 22:21:00 Y es 4 mg = 1 tab, PO, Q8H, PRN Nausea/vomiting, # 15 tab, 0 Refill(s), Pharmacy: [facility]/pharmacy #[id number] [facility] Lactulose 667 MG/ML Oral Solution 2018-06-05 22:21:00 Yes 10 gm = 15 mL, PO, TID, PRN Titrate to 2-3 soft bowel movements a day, X 30 day, # 900 mL, 0 Refill(s), Pharmacy: [facility]/pharmacy #[id number] [facility] pantoprazole 40 mg oral enteric coated tablet 2018-06-05 22:21:0 0 Yes 40 mg = 1 tab, PO, Before Breakfast, # 3 0 tab, 0 Refill(s), Pharmacy: [facility]/pharmacy #[id number] [facility] tramadol hydrochloride 50 MG Oral Tablet 2018-06-05 16:57:00 Yes 50 mg = 1 tab, PO, Q8H, PRN Pain Score 7-10, X 7 day, # 20 tab, 0 Refill(s) [facility] Ferrlecit 2018-06-05 14:00:00 No Notes: (sodium ferric gluconate complex (elemental iron) 62.5 mg/5 ml INJ) "Limited stability. Use immediately after admixture" (Same as: Ferrlecit) MEDICATION WASTE Product Size: 62.5 mg Product Wasted: ___ mg [place] Flagyl 2018-06-05 02:00:00 No Notes: (Same as: Flagyl) Take with food/ avoid alcohol [facility] Golytely 2018-06-04 19:47:00 No Notes: (Сергей e as: Nulytely) [facility] Bisacodyl 2018-06-04 19:47:00 No Notes: (Same As: Dulcolax, Correctol) (Do Not Crush) "Do Not Crush" [facility] Hydromorphone 2018-06-04 17:43:00 No Notes: (Same as: Dilaudid) [facility] Lactulose 667 MG/ML Oral Solution 2018-06-04 02:00:00 No Notes: (Same as:Chronulac) [facility] rifaximin 2018-06-04 02:00:00 No Notes: Сергей e as: Xifaxan [facility] Lactulose 667 MG/ML Oral Solution 2018-06-03 14:00:00 No Notes: (Same as:Chronulac) [facility] pantoprazole 2018-06-03 12:30:00 No Notes: Tablet should not be chewed or crushed. (Same as: Protonix) [facility] lidocaine (ANES) 2018-06-02 19:57:00 No Route: IV, Drug form: INJ, ONCE, Stop date: 06/02/18 14:57:00 CDT [facility] propofol (ANES) 2018-06-02 19:57:00 No Route: IV, Drug form: INJ, ONCE, Stop date: 06/02/18 14:57:00 CDT [facility] Sodium Chloride 0.9% IV 1,000 mL 2018-06-02 19:36:00 No 1,000 mL, Rate: 25 ml/hr, Infuse over: 40 hr, Route: IV, Dosing Weight 87.091 kg, Total Volume: 1,000, Start date: 06/02/18 14:36:00 CDT, Duration: 30 day, Stop date: 07/02/18 14:35:00 CDT, 2.08, m2 Ruy 2018-06-02 06:00:00 No 1 gm, Route: IVPB, Drug form: PDR/INJ, [id number], Dosing Weight 87.091, kg, Start date: 06/02/18 1:00:00 CDT, Duration: 5 day, Stop date: 06/06/18 1:00:00 CDT, ABX Indication: Intra- abdominal Infection [facility] potassium chloride 2018-06-02 05:00:00 No Notes: Infuse at a rate of 10 mEq/hr. (Same as: KCL) [facility] Potassium Chloride 2018-06-02 04:04:00 No 20 mEq, Route: IVPB, ONCE, Dosing Weight 87.091, kg, Start date: 06/01/18 23:04:00 CDT, Stop date: 06/01/18 23:04:00 CDT [facility] Ceftriaxone 2018-06-02 04:00:00 No Notes: (Same As: [...] Stop date: 07/01/18 22:25:00 CDT, 2.08, m2 [facility] Octreotide 2018-06-02 03:26:00 No Notes: (Same As: SandoSTATIN). Refrigerate. MEDICATION WASTE Product Size: 50 microgram Product Wasted: ___ microgram [facility] Flagyl 2018-06-02 02:00:00 No Notes: (Same as: Flagyl) Avoid alcohol. [facility] Tramadol 2018-06-02 01:13:00 No Notes: Not to exceed 400mg/day. (Same As: Ultram) [facility] Hydromorphone 2018-06-02 01:13:00 No Notes: Same as: Dilaudid [facility] Ondansetron 2018-06-02 01:12:00 No Notes: (Same as: Zofran) MEDICATION WASTE Product Size: 4 mg Product Wasted: ___ mg [facility] Melatonin 2018-06-02 01:12:00 No Notes: (Sa me as: Melatonin) [facility] Bisacodyl 2018-06-02 01:12:00 No Notes: (Same As: Dulcolax, Bisco-Lax) [facility] Dextrose 50% Syringe 2018-06-02 01:12:00 No 12.5 [...] 30 day, Stop date: 07/01/18 20:11:00 CDT [facility] Calcium Gluconate 2018-06-02 01:11:00 No Notes: WASTE: F/P - Sink; E - [employer]ash [employer] [facility] Magnesium Sulfate 2018-06-02 01:11:00 No Notes: WASTE: F/P - Sink; E - [employer] Trash [employer] [facility] Potassium Chloride 2018-06-02 01:11:00 No Notes: (Same as: K-Dur 20) "Do Not Crush" Give with food and full glass of water For patients unable to swallow tablet, dissolve in one half glass of water. Allow about 2 minutes for the tablets to disintegrate. Stir before giving to prepare slurry and administer. Please exclude Patient s with feeding tube less than 14 Irish (Dobhoff, J-tube etc) and pediatric and patients. [facility] potassium phosphate-sodium phosphate 250 mg-280 mg-160 mg oral powder for reconstitution 2018-06-02 01:11:00 No Notes: (Same as: Phos-NaK) Each 1.5 gm pkt has 250mg phosphorous. Mix w/2.5oz water and stir. [facility] potassium phosphate 2018-06-02 01:11:00 No Notes: (Same as: K Phosphate.) Do not infuse phosphorous concurrently in the same line as TPN or IVF that contains calcium. For double lumen central lines, phosphorous may be infused in a separate lumen from TPN. 1 mMol phoshate has 1.47 mEq potassium Infuse over 4 hours [facility] sodium phosphate 2018-06-02 01:11:00 No Notes: Infuse over 4 hour. Do not infuse phosphorous concurrently in the same line as TPN or IVF that contains calcium. For double lumen central lines, phosphorous may be infused in a separate lumen from TPN. [facility] Magnesium Oxide 2018-06-02 01:11:00 No Notes: (Same as: Mag-Ox 400) Magnesium oxide [id number] elemental magnesium Dose=____mg magnesium oxide (___mg elemental magnesium) [facility] Ciprofloxacin 2018-06-02 01:09:00 No Notes: Do not refrigerate [facility] tramadol hydrochloride 50 MG Oral Tablet 2018-06-02 01:02:00 No 50 mg = 1 tab, PO, Q6H, PRN Pain, # 40 tab, 0 Refill(s) [facility] Folic Acid 1 MG Oral Tablet 2018-06-02 01:02:00 Yes 1 mg = 1 tab, PO, Daily, # 30 tab, 0 Refill(s) [facility] spironolactone 50 mg oral tablet 2018-06-02 01:02:00 Yes 50 mg = 1 tab, PO, Daily, # 90 tab, 1 Refill(s) [facility] Furosemide 40 MG Oral Tablet 2018-06-02 01:02:00 Yes 40 mg = 1 tab, PO, Daily, # 30 tab, 0 Refill(s) [facility] pneumococcal capsular polysaccharide typ e 1 vaccine / pneumococcal capsular polysaccharide type 10A vaccine / pneumococcal capsular polysaccharide type 11A vaccine / pneumococcal capsular polysaccharide type 12F vaccine / pneumococcal capsular polysacchar 2018-06-02 00:50:32 No Notes: (Same as: Pneumovax 23) Refrigerate [facility] influenza virus vaccine, inactivated 2018-06-02 00:50:04 No Notes: (Same as: Fluzone Quadrivalent, Fluarix Quadrivalent) For 3 years of age and older (0.5 mL IM) Shake well before use [facility] pantoprazole additive 80 mg + Sodium Chloride 0.9% IV 100 mL 2018-06-01 22:40:00 No Notes: For IV push reconstitute with 10 ml 0.9% sodium chloride and push over 2 minutes. (Same as: Protonix) [facility] Protonix 2018-06-01 22:40:00 No Notes: For IV push reconstitute with 10 ml 0.9% sodium chloride and push over 2 minutes. (Same as: Protonix) [facility] Sodium Chloride 0.9% (Bolus) IV 2018-06-01 21:42:00 No 1,000 mL, Infuse Over: 1 hr, Route: IV, ONCE, Priority: STAT, Dosing Weight 90.909 kg, Start date: 06/01/18 16:42:00 CDT, Stop date: 06/01/18 16:42:00 CDT [facility] Zofran 2018-06-01 21:41:00 No 4 mg, Route: IVP, Drug form: INJ, ONCE, Dosing Weight 90.909, kg, Priority: STAT, Start date: 06/01/18 16:41:00 CDT, Stop date: 06/01/18 16:41:00 CDT [facility] Morphine 2018-06-01 21:41:00 No 4 mg, Route: IVP, ONCE, Dosing Weight 90.909, kg, Priority: STAT, Start date: 06/01/18 16:41:00 CDT, Stop date: 06/01/18 16:41:00 CDT [facility] pantoprazole 2018-06-01 14:59:00 No Notes: For IV push reconstitute with 10 ml 0.9% sodium chloride and push over 2 minutes. (Same as: Protonix) [facility] Saline Flush 0.9% 2018-06-01 14:59:00 No Notes: (Same as: BD Posiflush) [facility] Sodium Chloride 0.9% (Bolus) IV 2018-06-01 14:59:00 No 1,000 mL, 1000 ml/hr, Infuse Over: 1 hr, Route: IV, 1,000, Drug form: INJ, ONCE, Priority: STAT, Dosing Weight 90.909 kg, Start date: 06/01/18 9:59:00 CDT, Stop date: 06/01/18 9:59:00 CDT [facility] pantoprazole 2018-05-31 18:30:00 Yes Notes: For IV push reconstitute with 10 ml 0.9% sodium chloride and push over 2 minutes. (Same as: Protonix) [facility] Saline Flush 0.9% 2018-05-31 18:30:00 No Notes: (Same as: BD Posiflush) [facility] Saline Flush 0.9% 2018-04-18 23:16:00 No Notes: (Same as: BD Posiflush) [facility] Fentanyl 2017-09-16 19:34:00 No Notes: (Same as: Sublimaze) Preservative free. [facility] Saline Flush 0.9% 2017-09-16 19:29:00 No 10 mL, Route: IVP, Drug Form: INJ, Dosing Weight 77, kg, PRN, PRN Line Flush, Start date: 09/16/17 14:29:00 CDT, Duration: 30 day, Stop date: 10/16/17 14:28:00 CDT [facility] Fentanyl 2017-09-16 15:34:00 No 25 microgram, Route: IV, ONCE, Dosing Weight 74.091, kg, Start date: 09/16/17 10:34:00 CDT, Stop date: 09/16/17 10:34:00 CDT [facility] Phenergan 2017-09-16 07:39:00 No 12.5 mg, Route: IVPB, ONCE, Dosing Weight 81.818, kg, Priority: STAT, Start date: 09/16/17 2:39:00 CDT, Stop date: 09/16/17 2:39:00 CDT [facility] Morphine 2017-09-16 07:39:00 No 4 mg, Route: IVP, ONCE, Dosing Weight 81.818, kg, Priority: STAT, Start date: 09/16/17 2:39:00 CDT, Stop date: 09/16/17 2:39:00 CDT [facility] Saline Flush 0.9% 2017-09-16 07:12:00 No Notes: (Same as: BD Posiflush) [facility] GI cocktail 2017-09-16 07:02:00 No Notes: G.I. Cocktail = antacid with simethicone 22.5 mL - lidocaine viscous 7.5 mL [facility] Acetaminophen With Codeine (Tylenol With Codeine #3 Ta blet) 1 Each Tablet Acetaminophen With Codeine (Tylenol With Codeine #3 Tablet) 1 Each Tablet Yes 300 [id number] as needed for Pain [facility] Furosemide (Lasix) 40 Mg Tablet Furosemide (Lasix) 40 Mg Tablet Yes 40 Twice A Day [facility] Spironolactone 25 Mg Tablet Spironolactone 25 Mg Tablet Yes 50 Daily [facility] Vital Signs Vital Name Observation Time Observation Value Comments Source Systolic (mm Hg) 2019-02-26 17:26:00 [facility] Diastolic (mm Hg) 2019-02-26 17:26:00 [facility] Heart Rate 2019-02-26 17:26:00 [facility] Respitory Rate 2019-02-26 17:26:00 [facility] Temperature Oral (F) 2019-02-26 17:26:00 97.9 F [facility] Weight 2019-02-26 17:26:00 [facility] Temperature Oral (F) 2018-08-25 01:56:00 98.2 F [facility] Systolic (mm Hg) 2018-08-25 01:56:00 [facility] Diastolic (mm Hg) 2018-08-25 01:56:00 [facility] Respitory Rate 2018-08-25 01:56:00 [facility] Heart Rate 2018-08-25 01:56:00 [facility] Respitory Rate 2018-08-04 09:30:00 [facility] Temperature Oral (F) 2018-08-04 09:30:00 97.9 F [facility] Systolic (mm Hg) 2018-08-04 09:30:00 [facility] Diastolic (mm Hg) 2018-08-04 09:30:00 [facility] BMI Calculated 2018-08-04 05:02:00 [facility] Respitory Rate 2018-08-04 05:02:00 [facility] Height 2018-08-04 05:02:00 175.26 cm [facility] Weight 2018-08-04 05:02:00 [facility] Temperature Oral (F) 2018-08-04 05:02:00 98.1 F [facility] Systolic (mm Hg) 2018-08-04 05:02:00 [facility] Diastolic (mm Hg) 2018-08-04 05:02:00 [facility] Heart Rate 2018-08-04 05:02:00 [facility] Systolic (mm Hg) 2018-06-05 21:30:00 [facility] [place] Diastolic (mm Hg) 2018-06-05 21:30:00 [facility] Respitory Rate 2018-06-05 21:30:00 [facility] [place] Systolic (mm Hg) 2018-06-05 21:15:00 [facility] [place] Diastolic (mm Hg) 2018-06-05 21:15:00 [facility] Respitory Rate 2018-06-05 21:15:00 [place] Systolic (mm Hg) 2018-06-05 21:00:00 [facility] [place] Diastolic (mm Hg) 2018-06-05 21:00:00 [place] Respitory Rate 2018-06-05 21:00:00 [facility] [place] Heart Rate 2018-06-05 16:11:00 [facility] and Temperature Oral (F) 2018-06-05 16:11:00 98.1 F [place] Temperature Oral (F) 2018-06-05 12:11:00 98 F [place] Heart Rate 2018-06-05 12:11:00 [facility] and Temperature Oral (F) 2018-06-05 08:10:00 [facility] 2018-[facility]-05 08:10:00 [facility] and BMI Calculated 2018-06-02 00:42:00 [place] Weight 2018-06-02 00:42:00 [facility] and Height 2018-06-02 00:42:00 175.26 cm [facility] Weight 2018-06-01 14:58:00 [facility] Weight 2018-05-31 18:08:00 [facility] Height 2018-05-31 18:08:00 175.26 cm [facility] BMI Calculated 2018-05-31 18:08:00 [facility] Systolic (mm Hg) 2018-05-31 18:08:00 [facility] Diastolic (mm Hg) 2018-05-31 18:08:00 [facility] Respitory Rate 2018-05-31 18:08:00 [facility] Heart Rate 2018-05-31 18:08:00 [facility] Temperature Oral (F) 2018-05-31 18:08:00 98.2 F [facility] Systolic (mm Hg) 2018-04-18 23:05:00 [facility] Diastolic (mm Hg) 2018-04-18 23:05:00 [facility] Heart Rate 2018-04-18 23:05:00 [facility] Respitory Rate 2018-04-18 23:05:00 [facility] Temperature Oral (F) 2018-04-18 23:05:00 98.5 F [facility] Height 2018-04-18 23:05:00 175.26 cm [facility] BMI Calculated 2018-04-18 23:05:00 [facility] [place] [facility] Weight 2018-04-18 23:05:00 [facility] [place] Weight 2017-09-16 19:15:00 [facility] and BMI Calculated 2017-09-16 19:15:00 [facility] [place] Height 2017-09-16 19:15:00 175.26 cm [facility] and Temperature Oral (F) 2017-09-16 19:15:00 99.1 F [facility] [place] Respitory Rate 2017-09-16 19:15:00 [facility] [place] Heart Rate 2017-09-16 19:15:00 MH Ji[facility] and Systolic (mm Hg) 2017-09-16 19:15:00 [facility] [place] Diastolic (mm Hg) 2017-09-16 19:15:00 [facility] [place] Temperature Oral (F) 2017-09-16 16:04:00 98.9 F [facility] Respitory Rate 2017-09-16 16:04:00 [facility] [place] [facility] Systolic (mm Hg) 2017-09-16 16:04:00 [facility] Diastolic (mm Hg) 2017-09-16 16:04:00 [facility] Systolic (mm Hg) 2017-09-16 15:01:00 [facility] Diastolic (mm Hg) 2017-09-16 15:01:00 [facility] Respitory Rate 2017-09-16 15:01:00 [facility] [place] [facility] Height 2017-09-16 14:07:00 175.26 cm [facility] BMI Calculated 2017-09-16 14:07:00 [facility] [place] [facility] Weight 2017-09-16 14:07:00 [facility] Systolic (mm Hg) 2017-09-16 14:03:00 [facility] Diastolic (mm Hg) 2017-09-16 14:03:00 [facility] Respitory Rate 2017-09-16 14:03:00 [facility] [place] [facility] Temperature Oral (F) 2017-09-16 13:01:00 99.0 F [facility] Heart Rate 2017-09-16 11:10:00 [facility] Heart Rate 2017-09-16 09:30:00 [facility] Weight 2017-09-16 06:48:00 [facility] Temperature Oral (F) 2017-09-16 06:48:00 99 F [facility] Heart Rate 2017-09-16 06:48:00 [facility] Procedures Procedure Date / Time Performed Performing Clinician Sourc e US liver 2017-06-20 00:00:00 AMARA GUTHRIE [facility] Computed tomography of abdomen and pelvis with contrast 2017 00:00:00 EZ MANDUJANO [facility] US guided paracentesis 2017-06-15 00:00:00 JESUS MARKS [facility] Exploratory laparotomy [facility] Encounters Start Date/Time End Date/Time [facility] ID Source 2019-02-26 17:19:29 2019-02-26 20:42:00 Emergency [facility] [id number] [facility] 2019-02-26 11:19:29 2019-02-26 14:42:00 Outpatient Mary Banks [facility] [id number] 2019-02-26 11:19:00 2019-02-26 11:19:00 Emergency E [id number] 2018-08-25 01:55:56 2018-08-25 05:12:00 Emergency [facility] [id number] [facility] 2018-08-24 20:55:56 2018-08-25 00:12:00 Outpatient Mary Banks [facility] [place] [id number] 2018-08-24 20:55:00 2018-08-24 20:55:00 Emergency E [id number] 2018-08-04 04:59:28 2018-08-04 10:44:00 Emergency [facility] [id number] [facility] 2018-08-03 23:59:28 2018-08-04 05:44:00 Outpatient Mary Banks [facility] [place] [id number] 2018-08-03 23:59:00 2018-08-03 23:59:00 Emergency E [id number] 2018-06-01 14:37:00 2018-06-05 23:35:00 [facility]patient [facility] [id number] [facility] 2018-06-01 09:37:00 2018-06-05 18:35:00 Outpatient Nabeel Hough i [facility] [id number] 2018-05-31 17:19:00 2018-06-01 00:22:00 Emergency [facility] [id number] [facility] 2018-05-31 12:19:00 2018-05-31 19:22:00 Outpatient Mary Banks [facility] [id number] 2018-04-18 22:46:00 2018-04-19 02:32:00 Emergency [facility] [id number] [facility] 2018-04-18 16:46:00 2018-04-18 20:32:00 Outpatient Iheme, Varinder U [facility] [id number] 2018-04-18 16:46:00 2018-04-18 20:32:00 Outpatient Iheme, Varinder U MHSE MHSE [id number] 2018-04-18 16:46:00 2018-04-18 16:46:00 Emergency E MHSE MHSE [facility] 2017-09-16 18:46:00 2017-09-16 20:34:00 Emergency [facility] [id number] [facility] 2017-09-16 06:41:00 2017-09-16 17:59:00 Emergency [facility] [id number] [facility] 2017-09-16 13:46:00 2017-09-16 15:34:00 Outpatient F Pauline stearns MHPL MHPL [id number] 2017-09-16 01:41:00 2017-09-16 12:59:00 Outpatient Zandra Justice MHSE MHSE [id number] 2017-06-15 15:53:00 2017-06-20 17:14:00 Discharged Inpatient ER [facility] [id number] [facility] Results Test Description Test Time Test Comments Results Result Comments Source CT ABDOMEN/PELVIS W 2019-08-14 08:48:00 [facility] [address] [place] [address] Patient Name: JOCELIN CORREA MR #: [id number] : 1970 Age/Sex: 49/M Req #: [id number] Adm Physician: Ordered by: ABA LOYA MD Report #: [id number] Location: Room/Bed: Procedure: CT/CT ABDOMEN/PELVIS W Exam Date: 08/14/19 Exam Time: 0815 REPORT STATUS: Signed EXAMINATION: CT of the abdomen and pelvis with contrast. TECHNIQUE: Spiral CT images of the abdomen and pelvis were performed from the lung bases to the lesser trochanters after the intravenous administration of 100 cc of Isovue 370. Coronal and sagittal reformatted images were obtained. COMPARISON: None. CLINICAL HISTORY:Lower abdominal pain, reports history of cirrhosis DISCUSSION: ABDOMEN/PELVIS: LOWER THORAX:Lung bases are unremarkable. No pleural effusion. HEPATOBILIARY: The liver is diffusely hypoattenuating with a nodular external contour and relative hypertrophy of the left lobe. No focal hepatic lesion or intrahepatic biliary dilatation. No radiopaque gallstones. SPLEEN: Mild splenomegaly (13.5 cm in maximum span.) PANCREAS: No focal masses or ductal dilatation. ADRENALS: No adrenal nodules. KIDNEYS/URETERS: Punctate nonobstructing calculus in the interpolar right kidney. No hydronephrosis. No additional renal, ureteral, or bladder calculi. No solid renal mass lesion. PELVIC ORGANS/BLADDER: Urinary bladder, prostate, and seminal vesicles are unremarkable. PERITONEUM/RETROPERITONEUM: Small amount of perihepatic ascites tracking along the right paracolic gutter, average internal attenuation 0-5 Hounsfield units. LYMPH NODES: No pelvic sidewall, retroperitoneal, or mesenteric lymphadenopathy. Mildly prominent likely reactive portacaval lymph node. VESSELS: Abdominal aorta, major branch vessels, and iliac arterial systems are patent. Portal vein, splenic vein, and central superior mesenteric vein are patent. GI TRACT: Large bowel shows no distension or wall thickening. Appendix is normal. No small bowel dilatation to suggest obstruction. BONES AND SOFT TISSUE: No osseous destructive lesions. Bilateral gyne comastia. IMPRESSION: Cirrhosis with portal hypertension evidenced by splenomegaly and small volume ascites. Nonobstructing punctate right renal calculus. Signed by: Dr. Brianna Figueroa M.D. on 08/14/2019 9:04 AM Dictated By: BRIANNA FIGUEROA MD 3 Transcribed By: ZAHEER on 08/14/19903 COPY TO: ABA LOYA MD CT BRAIN WO 2019-08-14 08:33:00 [place] [address] Patient Name: JOCELIN CORREA MR #: [id number] : 1970 Age/Sex: 49/M Req #: [id number] Adm Physician: Ordered by: GOLDEN WANG MD Report #: [id number] Location: ER Room/Bed: Procedure: [id number] CT/CT BRAIN WO Exam Date: 08/14/19 Exam Time: 814 REPORT STATUS: Signed CT BRAIN WO HISTORY: Altered mental status COMPARISON: None. TECHNIQUE: Noncontrast axial scans were obtained from skull base to the vertex. Coronal and sagittal reconstructions obtained from the axial data. One or more of the following dose reduction techniques were used: Automated exposure control, adjustment of the mA and/or kV according to patient size, and/or utilization of iterative reconstruction technique. DISCUSSION: Scalp/Skull: Unremarkable. Brain sulci: Mildly prominent. Ventricles: Mild compensatory dilatation. Extra-axial spaces: No masses or fluid collections. Parenchyma: No abnormal densities. No mass, hemorrhage, or large vascular territory acute infarct. Dural sinuses: No abnormal densities. Sellar/Suprasellar region: Intact. Skull base: Intact. Incidental findings: Small metallic foreign body is seen within the left ethmoid air cells. Mild scattered paranasal sinus mucosal thickening is present. IMPRESSION: 1. No acute intracranial abnormalities. 2. Mild generalized cerebral volume loss. 3. Small metallic foreign body in the left ethmoid air cells. This can be correlated with trauma history. Signed by: Dr. Ayan Woods M.D. on 08/14/2019 8:38 AM Dictated By: AYAN WOODS MD 7 Transcribed By: ZAHEER on 08/14/19837 COPY TO: GOLDEN WANG MD CARDIAC ENZYMES 2019-02-26 17:40:00 <0.02 [facility] CHEM PANEL 2019-02-26 17:40:00 [address] [place] ELECTROLYTES 2019-02-26 17:40:00 9.5 MH [facility] ELECTROLYTES 2019-02-26 17:40:00 Test Item B/C Ratio (test code = B/C Ratio) 12 1 6-25 BzlzloxbvOEGVKFEIPGCD2579-19-76 17:40:006.2MH DfpdnxpprZJAZDGSAGNZN9960-81-11 17:40:00* Test Item Value Reference Range Interpretation Comments A/G Ratio (test code = A/G Ratio) 0.4 1 0.7-1.6 QhzycamvrCBGBXPSHUVZI5527-05-25 17:40:0086 DjteixlbiWBBNSHGBKALS2684-77-82 17:40:0011 JdsyjkfcpMMIHCDXDHCRM3790-39-68 17:40:000.92[facility] WLWFTLGCYPAY3542-52-53 17:40:90886YQ RzfoexzosGBOEARTVNQRO7599-64-99 17:40:003.5 ImansbuwmJYQXZUOWDKXI3915-41-82 17:40:98705DC UbgqmtchbKZAITNNOJIYP4407-96-95 17:40:0026 JyohkxlboSBAENMHAPXWN7804-03-74 17:40:008.3[facility] SEWXDSFEEQFX8978-88-22 17:40:008.5 FvgjkgcvfLMJBPOTIZCXV5009-41-02 17:40:002.3 BnzhfpjanRWUGKUVSEAEE8848-09-75 17:40:0040 SzfbcqgfgWABOAEYUYTJZ8005-23-62 17:40:90622YG VcrgxgtbjWARBEXZFJTCH7709-32-20 17:40:0073 [facility] 2019-02-26 17:40:000.7[facility] NortheastFwadhbarsADBARLXBNSTR1136-13-51 17:40:0098[facility] VSQRFJBASD4113-87-98 17:40:00See Note (02/26/19 11:40 AM) [facility] 2019-02-26 17:40:00Normal (02/26/19 11:40 AM) XtyfziclmRBCGUIFSCW3352-46-47 17:40:0041.5 NedrlszbnCAQISLIUSU2665-65-38 17:40:0032.8 [facility] 2019-02-26 17:40:0012.4 VhvdpkmsuCCDOXZAVEL7296-26-48 17:40:0012.3[facility] FRGVQGSQIP0470-93-55 17:40:001.0[facility] NortheastVyzdcmrdoLQHZQAPLBM6313-48-91 17:40:001.3M DfifpwwanWCNBWRWPTP3410-45-83 17:40:001.0 BhshewbbmOYQOXNKAPR5638-69-04 17:40:000.4 DlpzbndaxBVQPFSSEIV9678-43-57 17:40:000.4 [facility] 2019-02-26 17:40:001+ *ABN*(02/26/19 11:40 AM) TfmckdmluNFTFUYPINK0165-73-80 17:40:001+ *ABN*(02/26/19 11:40 AM) AedtdzerfCKMYNNGPYN7882-89-86 17:40:002+ (02/26/19 11:40 AM) BtllznfqsNQNHURXQGI8918-60-85 17:40:003.1[facility] WOAIBFAQVR1009-85-33 17:40:003.80 ApjimsdkoIBQVHVAENY5098-14-51 17:40:008.6M MvfxoxumzDEKMEEJWBU5777-32-00 17:40:0027.3M VoccrbuxdBBCGCTDLZC1150-34-60 17:40:0072.0[facility] NortheastKktkpesujZMBEZGYSZK9349-50-76 17:40:00* Test Item Value Reference Range Interpretation Comments MCH (test code = MCH) 22.6 pg 27.0-31.0 [facility] ChildrenOkygvbhazDQWRYEJJJW6585-09-95 17:40:0031.4[facility] ChildrenDekzyeziiJHHGIYXMJS0268-55-16 17:40:0021.4[facility] ChildrenJlbruqpxsILDLVVIHMI5740-88-85 17:40:0043[facility] 2019-02-26 17:40:009.0[facility] ChildrenDvjinicdlKQTYGTDOQC6607-88-53 17:40:00* Test Item Value Reference Range Interpretation Comments PT (test code = PT) 15.4 s 12.0-14.7 [facility] ChildrenSpymzputnMUVDLHCLTQ6590-45-11 17:40:00* Test Item Value Reference Range Interpretation Comments INR (test code = INR) 1.21 1 0.85-1.17 [facility] ChildrenVkeghnchcASSORRECIK2413-24-36 17:40:00* Test Item Value Reference Range Interpretation Comments PTT (test code = PTT) 32.4 s 22.9-35.8 [facility] PFZTSOSL2311-40-39 08:25:00* Test Item Value Reference Range Interpretation [...] Urine Source? Clean CatchDRUGS OF ABUSE SCREEN WP5523-07-37 08:25:00* Test Item Value Reference Range Interpretation [...] NEGATIVE <300 ng/mL Urine Source? Clean CatchURINALYSIS DUHBKUZN3785-31-29 08:14:00* Test Item Value Reference Range Interpretation [...] Urine Source? Clean CatchDRUGS OF ABUSE SCREEN LX1689-06-97 08:14:00* Test Item Value Reference Range Interpretation [...] Source? Clean Catch- CT ABD PELVIS W/O [id number] 08:02:00 Name: JOCELIN CORREA [facility] : 1970 Age/S: 48 / M [address] Unit #: [id number] Loc: [place], [place] [address] Phys: Melania Roberts MD Acct: [id number] Di s Date: Status: REG ER PHONE #: Exam Date: 01/15/2019 0739 FAX #: Reason: abdominal pain EXAMS: CPT CODE: [id number] CT ABD PELVIS W/O CONT 47580 REASON FOR EXAM: abdomina l pain EXAM [...] 1 Signed Report (CONTINUED) Name: MICHELLE CORREA [facility] : 1970 Age/S : 48 / M [address] Unit #: [id number] Loc: [place] [address] Phys: Maryan Roberts MD Acct: [id number] Dis Date: Status: REG ER PHONE #: [phone] Ex am Date: 01/15/2019 0739 FAX #: [phone] Reason: a bdominal pain EXAMS: CPT CODE: [id number] CT ABD PELVIS W/O CONT 17023 <Continued> Abdominal vascular structures: Grossly normal Peritoneum [...] with an ultrasound. Nonobstructing right-sided nephrolithiasis. Location: [facility] at 0802 Reported and signed by: Steve Long MD CC: Maryan Roberts MD Technologist:Tian Mandujano RT(R),(MR),(C T) CTDI: DLP: Trnscb Date/Time: 01/15/2019 (08) [email or web address] Orig Print D/T: S: 01/15/2019 (0805) PAGE [...] CA) 8.8 mg/dL 8.5-10.1 N HEPATIC FUNCTION ESTVZ3644-09-84 06:53:00* Test Item Value Reference Range Interpretation [...] reference range due to change in reagent. ONIXBE1023-21-93 06:53:00* Test Item Value Reference Range Interpretation Comments LIPASE (test code = LIP) 202 U/L 73.0-393.0 N VXXYLDMZ-L5244-11-05 06:53:00* Test Item Value Reference Range Interpretation Comments TROPONIN-I (test code = TROPI) <0.015 ng/mL 0-0.045 N RZMPFQT1033-16-87 06:53:00* Test Item Value Reference Range Interpretation Comments ALCOHOL (test code = ALC) 93 mg/dL 0.0-3.0 H -- INTERPRETIVE DATA NOTE: POSITIVE SCREENING RESULTS SHOULD BE CONSIDERED PRESUMPTIVE.WHEN COLLECTED FOR MEDICAL PURPOSES ONLY. SPECIMEN WILL NOTBE COLLECTED BY CHAIN OF CUSTODY.IF A CONFIRMATION OF POSITIVE RESULTS IS DESIRED, ACONFIRMATION TEST MUST BE REQUESTED BY THE PHYSICIAN AT ANADDITIONAL CHARGE TO THE PATIENT. PZHTACU7597-94-97 06:52:00* Test Item Value Reference Range Interpretation Comments AMMONIA (test code = AMM) 83 umol/L 11-32 H CBC W/O ZILT4139-03-49 06:39:00* Test Item Value Reference Range Interpretation [...] 10.1 fL 6.7-11.0 N - US ABDOMEN FOAEJYKM8086-24-76 09:19:00 Name: CHELLY CORREA [facility] : 1970 Age/S: 48 / M [address] [facility] Unit #: [id number] Loc: [place] [address] Phys: González Nunez MD Acct: [id number] Dis Date: Status: REG CLI PHONE #: [phone] Exam Date: 12/25/2018 0855 FAX #: [phone] Reason: 571.5,K74.60,211.3,D12.6,V85.25,E66.3 EXAMS: CPT CODE: [id number] US ABDOMEN COMPLETE 29575 REASON FOR EXAM: 571.5,K7 4.60,211.3,D12.6,V85.25,E66.3 EXAM ORDER DATE: 12/25/2018 8:14 AM Attending MAbdi.: González Nunez MD PROCEDURE: - US ABDO MEN COMPLETE Technique: Grayscale and color Doppler images [...] 1 Signed Report (CONTINUED) Name: CHELLY CORREA [facility] : 1970 Age/S: 48 / M [address] [facility] Unit #: [id number] Loc: [place] [address] Phys: González Nunez MD Acct: [id number] Dis Date: Status: REG CLI PHONE #: [phone] Exam Date: 12/25/2018 0855 FAX #: [phone] Reason: 571.5,K74.60,211.3,D12.6,V85.25,E66.3 EXAMS: CPT CODE: [id number] US ABDOMEN COMPLETE 63039 < Continued> Left kidney: parenchyma echogenicity: Normal [...] Nunez MD; Lety Hopson MD Technologist: TERRY RIZVI(R),FRANCISCO [facility] Date/Time: 12/25/2018 (918) [email or web address] Orig Print D/T: S: 12/25/2018 (0922) Probe: PAGE 2 Signed Report [id number] 16:26:00* Test Item Value Reference Range Interpretation Comments GLUBED (test code = GLUBED) 101 mg/dL 74-106 N Performed by certified clamp forklift operator at [facility] CBC W/AUTO ZHLV4488-75-09 09:15:00* Test Item Value Reference Range Interpretation [...] = MDIFF) NO, ONLY SCAN NEEDED DIFFERENTIAL DURU0132-46-57 09:15:00* Test Item Value Reference Range Interpretation Comments STAIN ACCEPTABILITY (test code = STN ACCEPTABLE) STAIN ACCEPTABLE HYPOCHROMIA (test code = HYPO) 1+ ANISOCYTOSIS (test code = ANISO) 2+ MICROCYTOSIS (test code = MICR) 1+ MORPHOLOGY COMMENT (test code = MOC) NORMAL PLATELET ESTIMATE (test code = PLTEST) DECREASED COMPREHENSIVE METABOLIC [id number] 08:48:00* Test Item Value Reference Range Interpretation [...] FESAT) 5.80 % 13-45 L THYROID STIMULATING ZCBOPHQ7185-11-48 08:48:00* Test Item Value Reference Range Interpretation Comments THYROID STIMULATING HORMONE (test code = TSH) 2.940 uIU/mL 0.36-3.7 4 N TSH REFERENCE RANGES: EUTHYROID: 0.35 - 4.3 mIU/mL HYPO : > 5.5 mIU/mL HYPER : < 0.35 mIU/mL NXZZDILC7964-74-09 08:48:00* Test Item Value Reference Range Interpretation Comments FERRITIN (test code = GRABIEL) 12 ng/mL 8-388 N COMPREHENSIVE METABOLIC [id number] 08:19:00* Test Item Value Reference Range Interpretation [...] code = FESAT) % 13-45 THYROID STIMULATING MSALMTU0315-04-49 08:19:00* Test Item Value Reference Range Interpretation Comments THYROID STIMULATING HORMONE (test code = TSH) uIU/mL 0.36-3.7 4 CDLYWOUP4362-10-04 08:19:00* Test Item Value Reference Range Interpretation Comments FERRITIN (test code = GRABIEL) ng/mL 8-388 CBC W/AUTO [id number] 08:11:00* Test Item Value Reference Range Interpretation [...] = MDIFF) NO, ONLY SCAN NEEDED DIFFERENTIAL EWJZ5942-06-58 08:11:00* Test Item Value Reference Range Interpretation Comments STAIN ACCEPTABILITY (test code = STN ACCEPTABLE) CABOT RINGS (test code = CAB) MORPHOLOGY COMMENT (test code = MOC) PLATELET ESTIMATE (test code = PLTEST) PLATELET MORPHOLOGY (test code = PLTMORPH) CBC W/AUTO [id number] 08:11:00* Test Item Value Reference Range Interpretation [...] = MDIFF) NO, ONLY SCAN NEEDED DIFFERENTIAL [id number] 08:11:00* Test Item Value Reference Range Interpretation Comments STAIN ACCEPTABILITY (test code = STN ACCEPTABLE) CABOT RINGS (test code = CAB) MORPHOLOGY COMMENT (test code = MOC) PLATELET ESTIMATE (test code = PLTEST) PLATELET MORPHOLOGY (test code = PLTMORPH) CBC W/AUTO [id number] 08:11:00* Test Item Value Reference Range Interpretation [...] = MDIFF) NO, ONLY SCAN NEEDED DIFFERENTIAL [id number] 08:11:00* Test Item Value Reference Range Interpretation Comments STAIN ACCEPTABILITY (test code = STN ACCEPTABLE) MORPHOLOGY COMMENT (test code = MOC) PLATELET ESTIMATE (test code = PLTEST) PLATELET MORPHOLOGY (test code = PLTMORPH) CBC W/AUTO [id number] 08:10:00* Test Item Value Reference Range Interpretation [...] = MDIFF) NO, ONLY SCAN NEEDED DIFFERENTIAL [id number] 08:10:00* Test Item Value Reference Range Interpretation Comments STAIN ACCEPTABILITY (test code = STN ACCEPTABLE) CABOT RINGS (test code = CAB) MORPHOLOGY COMMENT (test code = MOC) PLATELET ESTIMATE (test code = PLTEST) PLATELET MORPHOLOGY (test code = PLTMORPH) [id number] 08:09:00* Test Item Value Reference Range Interpretation Comments AMMONIA (test code = AMM) 89 umol/L 11-32 H [id number] 08:09:00* Test Item Value Reference Range Interpretation Comments GLYCOSYLATED HEMOGLOBIN (HA1C) (test code = GLYHGB) 5.0 % HbA1 4. 8-6.0 N ESTIMATED AVERAGE GLUCOSE (test code = EAG) 97 MG/DL [id number] 05:52:00* Test Item Value Reference Range Interpretation Comments GLUBED (test code = GLUBED) 100 mg/dL 74-106 N Performed by certified clamp forklift operator at [facility] [id number] 20:26:00* Test Item Value Reference Range Interpretation Comments GLUBED (test code = GLUBED) 111 mg/dL 74-106 H Performed by certified clamp forklift operator at [facility] PROTHROMBIN [id number] 15:38:00* Test Item Value Reference Range Interpretation [...] (2.5-3.5) IS PATIENT ON ANTICOAGULANTS? NTHROMBOPLASTIN TIME [id number] 15:38:00* Test Item Value Reference Range Interpretation Comments THROMBOPLASTIN TIME PARTIAL (test code = PTT) 36.6 seconds 25.0-36. 5 H IS PATIENT ON ANTICOAGULANTS? [id number] 14:10:00* Test Item Value Reference Range Interpretation Comments PHOSPHORUS (test code = PHOS) 3.3 mg/dL 2.5-4.9 N [id number] 14:10:00* Test Item Value Reference Range Interpretation Comments AMYLASE (test code = JUAN) 69 Unit/L 25-115 N [id number] 14:10:00* Test Item Value Reference Range Interpretation Comments LIPASE (test code = LIP) 116 U/L 73.0-393.0 N [id number] 14:10:00* Test Item Value Reference Range Interpretation Comments MAGNESIUM (test code = MAG) 2.3 mg/dL 1.8-2.4 N VITAMIN [id number] 14:10:00* Test Item Value Reference Range Interpretation Comments VITAMIN B12 (test code = VITB12) 776 pg/mL 193-986 N FOLIC [id number] 14:10:00* Test Item Value Reference Range Interpretation Comments FOLIC ACID (test code = FOL) 33.2 ng/mL 3.10-17.50 H [id number] 14:10:00* Test Item Value Reference Range Interpretation [...] TO THE PATIENT. - CT HEAD/BRAIN W/O [id number] 07:29:00 Name: JOCELIN CORREA [facility] : 1970 Age/S: 48 / M [address] [facility] Unit #: [id number] Loc: [place] [address] Phys: Lolis Parks DO Acct: [id number] Dis Date: Status: REG ER PHONE #: [phone] Exam Date: 12/06/2018634 FAX #: [phone] Reason: Altered Mental Status EXAMS: CPT CODE: [id number] CT HEAD/BRAIN W/O CONT 76852 HISTORY: Altered mental status TECHNIQUE: Noncontrast 2.5 [...] HINKLE CTDI: DLP: Trnscb Date/Time: 12/06/2018 (728) [email or web address] Orig Print D/T: S: 12/06/2018 (8889) PAGE 1 Signed Report CBC W/AUTO [id number] 07:26:00* Test Item Value Reference Range Interpretation [...] = MDIFF) NO, ONLY SCAN NEEDED DIFFERENTIAL [id number] 07:26:00* Test Item Value Reference Range Interpretation Comments STAIN ACCEPTABILITY (test code = STN ACCEPTABLE) STAIN ACCEPTABLE HYPOCHROMIA (test code = HYPO) 1+ ANISOCYTOSIS (test code = ANISO) 1+ MACROCYTOSIS (test code = MACR) 1+ PLATELET ESTIMATE (test code = PLTEST) DECREASED PLATELET MORPHOLOGY (test code = PLTMORPH) SIZE VARIABLE URINALYSIS [id number] 07:12:00* Test Item Value Reference Range Interpretation [...] Urine Source? Clean CatchDRUGS OF ABUSE SCREEN [id number] 07:12:00* Test Item Value Reference Range Interpretation [...] NEGATIVE <300 ng/mL Urine Source? Clean CatchURINALYSIS [id number] 07:08:00* Test Item Value Reference Range Interpretation [...] Urine Source? Clean CatchDRUGS OF ABUSE SCREEN [id number] 07:08:00* Test Item Value Reference Range Interpretation [...] [place]) <300 ng/mL Urine Source? Clean CatchURINALYSIS [id number] 07:01:00* Test Item Value Reference Range Interpretation [...] Urine Source? Clean CatchDRUGS OF ABUSE SCREEN [id number] 07:01:00* Test Item Value Reference Range Interpretation [...] <300 ng/mL Urine Source? Clean CatchBASIC METABOLIC [id number] 06:46:00* Test Item Value Reference Range Interpretation [...] CA) 8.5 mg/dL 8.5-10.1 N HEPATIC FUNCTION [id number] 06:46:00* Test Item Value Reference Range Interpretation [...] reference range due to change in reagent. [id number] 06:46:00* Test Item Value Reference Range Interpretation Comments TROPONIN-I (test code = TROPI) <0.015 ng/mL 0-0.045 N [id number] 06:46:00* Test Item Value Reference Range Interpretation Comments ACETAMINOPHEN (test code = ACET) < 10 mcg/mL 10-30 L A RANGE OF 10-30 mcg/mL IS A THERAPEUTIC RANGE. TOXIC CONCENTRATIONS: >150 mcg/mL AT 4 HOURS AFTER INGESTION >= 50 mcg/mL AT 12 HOURS AFTER INGESTION [id number] 06:46:00* Test Item Value Reference Range Interpretation Comments SALICYLATE (test code = KAILEY) < 1.7 mg/dL 2.8-20.0 L [id number] 06:46:00* Test Item Value Reference Range Interpretation [...] AT ANADDITIONAL CHARGE TO THE PATIENT. PROTHROMBIN [id number] 06:44:00* Test Item Value Reference Range Interpretation [...] (2.5-3.5) IS PATIENT ON ANTICOAGULANTS? NTHROMBOPLASTIN TIME [id number] 06:44:00* Test Item Value Reference Range Interpretation Comments THROMBOPLASTIN TIME PARTIAL (test code = PTT) 34.6 seconds 25.0-36. 5 N IS PATIENT ON ANTICOAGULANTS? [id number] 06:37:00* Test Item Value Reference Range Interpretation Comments AMMONIA (test code = AMM) 152 umol/L 11-32 H BASIC METABOLIC [id number] 06:31:00* Test Item Value Reference Range Interpretation [...] code = CA) mg/dL 8.5-10.1 HEPATIC FUNCTION [id number] 06:31:00* Test Item Value Reference Range Interpretation [...] TOTAL (test code = ALKP) IUnit/L 45-117 [id number] 06:31:00* Test Item Value Reference Range Interpretation Comments TROPONIN-I (test code = TROPI) ng/mL 0-0.045 [id number] 06:31:00* Test Item Value Reference Range Interpretation Comments ACETAMINOPHEN (test code = ACET) mcg/mL 10-30 [id number] 06:31:00* Test Item Value Reference Range Interpretation Comments SALICYLATE (test code = KAILEY) mg/dL 2.8-20.0 [id number] 06:31:00* Test Item Value Reference Range Interpretation Comments ALCOHOL (test code = ALC) mg/dL 0-3 CBC W/AUTO [id number] 06:21:00* Test Item Value Reference Range Interpretation [...] = MDIFF) NO, ONLY SCAN NEEDED DIFFERENTIAL [id number] 06:21:00* Test Item Value Reference Range Interpretation Comments STAIN ACCEPTABILITY (test code = STN ACCEPTABLE) CABOT RINGS (test code = CAB) MORPHOLOGY COMMENT (test code = MOC) PLATELET ESTIMATE (test code = PLTEST) PLATELET MORPHOLOGY (test code = PLTMORPH) CBC W/AUTO [id number] 06:21:00* Test Item Value Reference Range Interpretation [...] = MDIFF) NO, ONLY SCAN NEEDED DIFFERENTIAL [id number] 06:21:00* Test Item Value Reference Range Interpretation Comments STAIN ACCEPTABILITY (test code = STN ACCEPTABLE) MORPHOLOGY COMMENT (test code = MOC) PLATELET ESTIMATE (test code = PLTEST) PLATELET MORPHOLOGY (test code = PLTMORPH) CBC W/AUTO [id number] 06:21:00* Test Item Value Reference Range Interpretation [...] = MDIFF) NO, ONLY SCAN NEEDED DIFFERENTIAL [id number] 06:21:00* Test Item Value Reference Range Interpretation Comments STAIN ACCEPTABILITY (test code = STN ACCEPTABLE) MORPHOLOGY COMMENT (test code = MOC) PLATELET ESTIMATE (test code = PLTEST) PLATELET MORPHOLOGY (test code = PLTMORPH) CBC W/AUTO [id number] 06:20:00* Test Item Value Reference Range Interpretation [...] = MDIFF) NO, ONLY SCAN NEEDED DIFFERENTIAL [id number] 06:20:00* Test Item Value Reference Range Interpretation Comments STAIN ACCEPTABILITY (test code = STN ACCEPTABLE) CABOT RINGS (test code = CAB) MORPHOLOGY COMMENT (test code = MOC) PLATELET ESTIMATE (test code = PLTEST) PLATELET MORPHOLOGY (test code = PLTMORPH) - XR CHEST 1 [id number] 06:08:00 FAX: Lolis Parks DO [place]: B St: REG Name: JOCELIN CARROLL [facility] : [birth year] Age/S: 48/M [address] [facility] Unit #: [id number] Loc: [facility] [address] Phys: Lolis Parks DO Acct: [id number] Dis Date: Status: REG ER PHONE #: [phone] Exam Date: 12/06/2018 05 FAX #: [phone] Reason: Altered Mental Status EXAMS: CPT CODE: [id number] XR CHEST 1 V 20842 AFTER HOURS SERVICE ON: 12/06/2018 6:07 AM [...] DO Technologist: RT ALEXANDER Trnscrd Date/Time/By: 12/06/2018 (0608) : By: Medhat [email or web address] Orig Print D/T: S: 12/06/2018 (11) PAG E 1 Signed Report CARDIAC [id number] 02:39:0028MH [facility] [id number] 02:39:00<0.02 [facility]M [id number] 02:39:30153RO [facility] [id number] 02:39:65329IP [facility] [id number] 02:39:002.9 [facility] PANEL 2018-08-25 02:39:59425ZQ [facility] [id number] 02:39:0028MH [facility] CHE[facility] [id number] 02:39:000.79MH [facility] [id number] 02:39:00* Test Item Value Reference Range Interpretation Comments B/C Ratio (test code = B/C Ratio) 16 1 6-25 [facility] WAHPK9028-35-45 02:39:008.0 [facility] GCYBQ1372-43-23 02:39:0089 [facility] RAWLZ1368-60-39 02:39:000.6MH SoutheastCHEM PANEL 2018-08-25 02:39:006.1MH [facility]CHEM OIMGC9544-76-98 02:39:00* Test Item Value Reference Range Interpretation Comments A/G Ratio (test code = A/G Ratio) 0.3 1 0.7-1.6 [facility] EVYWT2182-70-67 02:39:0026 [facility] SFBTP0280-98-80 02:39:0077 [facility] EZZRR2364-49-19 02:39:001.9 [facility]CHEM PANEL 2018-08-25 02:39:008.9 [facility] WQRWE3115-32-23 02:39:007.9[facility] CHEM EPTIW7534-95-13 02:39:[facility] IANFJ2581-89-71 02:39:0013 [facility] KVXJP3785-81-92 02:39:28451DM QwtdpuwjxWVTOTEBVOB4310-62-26 02:39:000.2M HfulzplbfHPBNQSUZHZ3653-78-93 02:39:000.6M SoutheastHEMATOLOGY 2018-08-25 02:39:001.2M ZwtbtibplSGPKYPPTPY2941-64-94 02:39:000.3[facility] CDHTMOJIDN4411-31-04 02:39:001.3M ObwnvnyxeJYDTWYVNKR0443-76-18 02:39:001+ *ABN*(08/24/18 9:39 PM) BanqyfklwKCBKLWQTFM4795-81-07 02:39:0025.3M [facility] PQGLRJWNLE8810-62-55 02:39:0053.3M RmwxxcbovQKPTZUVYDU8487-75-77 02:39:008.8[facility] NortheastNzckwcsoeSXBADNQKKA6127-34-57 02:39:0011.3M[facility] HospitalKwamoqxjvRTGREIPSXO7692-24-17 02:39:00* Test Item Value Reference Range Interpretation Comments PT (test code = PT) 14.7 s 12.0-14.7 [facility] NortheastDvykzcmroIESIYYINSP3516-26-64 02:39:00* Test Item Value Reference Range Interpretation Comments PTT (test code = PTT) 34.7 s 22.9-35.8 AancryfrvQEIZLWGHDW2361-34-30 02:39:00* Test Item Value Reference Range Interpretation Comments INR (test code = INR) 1.17 1 0.85-1.17 FuohmslauNHRSKJCGLD8279-04-44 02:39:008.4[facility] NortheastElpgzcjrfLKHNWURJIM8530-48-11 02:39:0076[facility] NortheastYzgtrbmdpINRYEEWRQW7986-96-64 02:39:0019.3M SoutheastHEMATOLOGY 2018-08-25 02:39:0025.7[facility] NortheastJydxcenswMWCJWYIXSR8735-52-81 02:39:0078.5[facility] FJRGGLMXTP6341-49-54 02:39:0031.7[facility] NortheastInpxqeznlNLEKHBGCGJ0749-44-52 02:39:00* Test Item Value Reference Range Interpretation Comments MCH (test code = MCH) 24.8 pg 27.0-31.0 [facility] NortheastVtqhsbkiiLQLVOULALD6385-06-99 02:39:003.27[facility] NortheastChlylpjlzXFLHLZUOYW1280-33-24 02:39:008.1MLeon[facility] HospitalQugczaaxrFBOIDRQZRU5287-54-07 02:39:002.3MH SoutheastURINE AND NGKQJ5565-58-27 09:25:00Negative (08/04/18 4:25 AM) SoutheastBLOOD BANK RESULTS 2018-08-04 06:09:00Negative (08/04/18 1:09 AM) SoutheastCARDIAC ENZYMES 2018-08-04 06:09:00<0.02 [facility]CHEM URLBS4567-23-72 06:09:42038HE[facility] CHEM RWEDO0882-79-83 06:09:000.2[facility] CJPKK5384-00-99 06:09:00* Test Item Value Reference Range Interpretation Comments A/G Ratio (test code = A/G Ratio) 0.3 1 0.7-1.6 MH [facility]CHEM MRXUJ5106-19-26 06:09:005.8 [facility]CHE[facility] BMDIC0960-55-64 06:09:000.3MH [facility]CHEM EXTRE1849-09-72 06:09:000.5 SoutheastCHEM PANEL 2018-08-04 06:09:0077MH [facility]CHEM UCMZN5808-77-39 06:09:0059 [facility]CHEM THAMW1179-31-52 06:09:0023MH [facility]CHEM KCXVS9642-74-08 06:09:001.9 [facility]CHE[facility] DJGSG6426-33-50 06:09:007.7 [facility] WWJWZ6397-24-30 06:09:001.6MH [facility]CHE[facility] DVFFI7447-49-03 06:09:18041XY SoutheastCHEM PANEL 2018-08-04 06:09:21203HN SoutheastCHEM QWYAQ5631-78-73 06:09:007.8 [facility] CHEM ICNBX9955-76-66 06:09:0024 [facility]CHE[facility] ZJEQN2358-80-84 06:09:06229AR SoutheastCHEM ILERU8709-31-48 06:09:003.3M [facility]CHEM GNFDD0538-06-54 06:09:0013 [facility] YFDSL9094-10-87 06:09:0099 [facility]CHEM PANEL 2018-08-04 06:09:000.89 [facility]CHEM USHTG8274-17-95 06:09:0013.3M [facility] DRUG XSATKJ1274-30-38 06:09:00Negative *NA*(08/04/18 1:09 AM) SoutheastDRUG DOWTCQ9728-37-49 06:09:00Negative *NA*(08/04/18 1:09 AM) [facility]DRUG SCREEN 2018-08-04 06:09:00Negative *NA*(08/04/18 1:09 AM) [facility]DRUG SCREEN 2018-08-04 06:09:00Positive *ABN*(08/04/18 1:09 AM) [facility]DRUG SCREEN 2018-08-04 06:09:00Negative *NA*(08/04/18 1:09 AM) [facility]DRUG SCREEN 2018-08-04 06:09:00Negative *NA*(08/04/18 1:09 AM) [facility]DRUG SCREEN 2018-08-04 06:09:00Negative *NA*(08/04/18 1:09 AM)[facility] 2018-08-04 06:09:00See Note (08/04/18 1:09 AM)[facility] HospitalEvyjzojfbYPZWSJGDIL9701-56-59 06:09:009.3MLeon[facility] HospitalXmxodlganBIZNOMUAUS6766-23-96 06:09:001.1M SoutheastHEMATOLOGY 2018-08-04 06:09:0010.6M ZwwuvgvemMEOALNHMTT5428-55-58 06:09:001.6[facility] WMNYKCAXOY7761-18-88 06:09:001.4[facility] NortheastFhvrnghqmBEMTNAINFC4804-13-61 06:09:000.4[facility] NortheastAyghkurmnQHBUTZOGZG0926-28-41 06:09:000.[address] [place], [place] [address]PwdzjagfsZHKRZDCBSU5582-26-33 06:09:[address]42[address] [place], [place] [address]RqrhqotscVAEHEXPFXE6197-84-46 06:09:0036.[address] [place], [place] [address]ATOLOGY 2018-08-04 06:09:00* Test Item Value Reference Range Interpretation Comments PT (test code = PT) 14.2 s 12.0-14.7 [facility] HospitalGxpjfjzdlAHSYGVNYBI8113-26-12 06:09:00* Test Item Value Reference Range Interpretation Comments INR (test code = INR) 1.12 1 0.85-1.17 [facility] HospitalUclsrekwuQATHDFQITD8260-58-78 06:09:00* Test Item Value Reference Range Interpretation Comments PTT (test code = PTT) 36.4 s 22.9-35.8 [facility] HospitalSxsqiidbdOGQMDDBDEB9393-28-28 06:09:[address] [place], [place] [address]UjpbthlriPVAHNDWYVH1882-92-19 06:09:0078[facility] HospitalWnglfciuoCIYHHXAWPW8746-95-81 06:09:[address]79.[address] [place], [place] [address]HEMATOLOGY 2018-08-04 06:09:00* Test Item Value Reference Range Interpretation Comments MCH (test code = MCH) 24.9 pg 27.0-31.0 [facility] NortheastAjobtuwoqUHIQFFFGEE1761-77-90 06:09:0031.4[facility] HospitalDawcucshjWNLIZHFAQG7750-87-41 06:09:0018.5[facility] NortheastAyscyrlpmUWKCXJZRYO8441-47-27 06:09:008.[facility] SoutheastHEMATOLOGY 2018-08-04 06:09:003.8[facility] NortheastYyjamlubwAVCZDIMNZX1242-85-04 06:09:003.34MH [facility] ZDFDGONUTG6614-93-27 06:09:0026.5 FenubdutyANYQGWSPUG5147-75-93 06:09:71915RN NonebirhiLPCUSJXVKA2715-86-50 06:09:000.362 SoutheastURINE AND EDXRH0057-52-47 06:09:00Large *ABN*(08/04/18 1:09 AM)MH SoutheastURINE AND YTTRF2956-15-05 06:09:00Negative (08/04/18 1:09 AM)MH SoutheastURINE AND HQVVJ5237-79-79 06:09:00 5 SoutheastURINE AND KYOOP8628-59-49 06:09:0012 [facility]URINE AND STOOL 2018-08-04 06:09:63315MU SoutheastURINE AND KWQIY9384-72-06 06:09:00Negative (08/04/18 1:09 AM) SoutheastURINE AND CPVIN7686-05-08 06:09:00Negative *NA*(08/04/18 1:09 AM) SoutheastURINE AND MGUVG6160-58-54 06:09:00* Test Item Value Reference Range Interpretation Comments UA Spec Grav (test code = UA Spec Grav) 1.013 1 SoutheastURINE AND UWMZZ6727-57-20 06:09:00Clear (08/04/18 1:09 AM) SoutheastURINE AND MDMWO8611-70-67 06:09:00Yellow *NA*(08/04/18 1:09 AM) [facility]URINE AND RHDUS3496-25-37 06:09:00* Test Item Value Reference Range Interpretation Comments UA pH (test code = UA pH) 6.0 1 5.0-8.0 [facility]CHEM AFAUW9450-21-29 08:02:001.7 [facility] NVWXQ5888-17-78 08:02:86817EJ [facility]CHEM MTIDF1303-46-93 08:02:003.5 PearlandCHEM PANEL 2018-06-05 08:02:0026 [facility]CHEM RLVOR1854-46-03 08:02:90402ES [facility]CHEM NFFPI5340-26-93 08:02:007.8 [facility]CHE[facility] MCMDB3756-06-76 08:02:000.89MH [facility]CHEM PMKLE7412-22-84 08:02:70719EX [facility]CHEM LQLCC5040-59-35 08:02:00 91MH [facility]landCHEM TLCXM8765-78-99 08:02:0011MH PearlandCHEM LORPG3064-82-20 08:02:008.5 JlmwcpowJDNQEEHJGD4006-52-26 08:02:0068 PearlandHEMATOLOGY 2018-06-05 08:02:009.5 RvlbaujzZZEMITGVDA0024-96-41 08:02:0084.3MH [place] KUPWKLAERF4409-33-80 08:02:0029.3M GkxcuqqgCTJXPEVKWS6672-36-73 08:02:0032.1M QxerlydmQNTEGAXNVZ9587-62-14 08:02:0020.5 YlpeilyyAJVGNJPMFX0284-42-24 08:02:00* Test Item Value Reference Range Interpretation Comments MCH (test code = MCH) 27.1 pg 27.0-31.0 TilfoaiwXHIPYSYBMF4928-08-50 08:02:009.4 PxvfxconIULLAITXRP6128-44-97 08:02:003.0 VpenadqvXWVEPFLINL1191-56-17 08:02:003.48 PearlandHEMATOLOGY 2018-06-05 08:02:0056.8 IxihpraiFLZFHHCDSF1011-91-01 08:02:0018.1[facility] PGMMZXUEOC5391-93-28 08:02:0017.9 EgdxtnxfPHVXMYJVYM1278-64-08 08:02:006.5 HxvukdhiDQFKFRKPQN5064-34-41 08:02:000.7 LaqykxlzLLCOVLGXSX5596-14-95 08:02:00 1.7 YcsdkqhtNRQUCILFIU6346-69-13 08:02:000.2M UgivjqqfMKAHOLOBIT5940-33-23 08:02:000.5 NcdlredqTBTMXXVKVN7675-75-46 08:02:000.5 PearlandPARATHYROID PJNFIIK6755-46-17 22:55:001.06 PearlandPARATHYROID UOJMUIQ8103-38-56 22:55:00 1.07MH PearlandCHEM BNGTW9731-83-57 18:00:0069.0 [facility]CHEM CGFGL0992-77-93 18:00:36019MC [facility]CHEM MLHCI1771-91-40 18:00:008.3M PearlandCHEM PANEL 2018-06-04 18:00:0028 [facility]landCHEM NPITT1301-67-08 18:00:006.9 [facility]CHEM YSWAZ8157-64-63 18:00:28068QU [facility]CHEM KYEVH6354-24-34 18:00:000.83MH [facility]CHEM RJPOK2102-46-16 18:00:003.3M [facility]CHEM USIOI0198-09-50 18:00:00 109MH [facility]landCHEM GEFED5645-44-84 18:00:0011 [facility]CHEM WSTNS0700-42-48 18:00:43445VE MdweoszrSIGWNBKNJP3337-48-17 18:00:008.8 [facility]landHEMATOLOGY 2018-06-04 18:00:0033.5 YoanbuksUPGSBEXXKP8888-35-61 18:00:0026.4[facility] IFWMEXFQSP8442-07-99 18:00:0081.8 MhjigeqwCFRMDAQEZV7299-34-58 18:00:0019.8 HeatpzvuRHZAINXOQD7993-87-99 18:00:00* Test Item Value Reference Range Interpretation Comments MCH (test code = MCH) 27.4 pg 27.0-31.0 BoqwygksCWGFVRINKA8413-83-05 18:00:0051 ZbmtwwzrAXMEMLXCLB2296-67-02 18:00:002.3M IjiwktdkECGEBBXQTV7562-42-14 18:00:003.23 [facility]HEMATOLOGY 2018-06-04 18:00:009.1M SoidspqvIOBJSRYGZB6521-65-24 18:00:0015.2[facility] SOIGYUVMTB5948-64-47 18:00:001.3M WempaojzHDYKOVORFZ7144-57-79 18:00:000.5 TxjknlxxAHLKPUDKYJ9422-66-93 18:00:006.1M KldtlvfjUNEIYAWIQN6985-21-30 18:00:00 0.9 HyzojtcjQHAQJLBYQQ9722-66-85 18:00:000.1M TsrhovobVWGDXBPPDX5489-16-17 18:00:000.3MH GmuevxqkERQRZEKITS5872-06-97 18:00:0019.8 [facility]landHEMATOLOGY 2018-06-04 18:00:0058.0 PearlandBODY EVEVHJ9157-81-00 17:05:00Ascites *NA*(06/04/18 12:05 PM) [facility] MXTAIO6321-44-09 17:05:000.7 [place] BODY ITPFKU9047-59-97 17:05:00Moderate Cloudy *ABN*(06/04/18 12:05 PM) [place] BODY BMPNYF2130-68-42 17:05:3943100WJ PearlandBODY ZUHGBL8176-07-30 17:05:00Red *ABN*(06/04/18 12:05 PM) PearlandBODY YQZIJG8482-43-68 17:05:01813GU [place] BODY IWLTRU1313-68-62 17:05:00Ascites (06/04/18 12:05 PM) PearlandBODY FLUIDS 2018-06-04 17:05:0019 PearlandBODY KSWLCZ9241-94-86 17:05:000 [facility]landBODY FDTQQD8443-35-38 17:05:0081 [facility]BODY DFFBJL3301-17-09 17:05:38876VC PearlandBODY VERLXR5111-43-76 17:05:00Ascites *NA*(06/04/18 12:05 PM)[facility] BODY MPNZLG4695-30-87 17:05:00Ascites *NA*(06/04/18 12:05 PM) PearlandBODY HQMCQW0491-55-38 17:05:002.9 [facility]CHEM FHFMD4117-19-94 19:58:06766.0 [facility]CHEM NOCZI1245-75-41 19:58:0073 [facility]CHEM ZZNLP3823-36-76 19:58:00 29 [facility]CHEM MUQHD4832-54-76 19:58:26509EO [facility]CHEM YIBCL1126-52-15 19:58:007.1MH [facility]CHEM QJZTR1104-13-61 19:58:003.6M PearlandCHEM PANEL 2018-06-03 19:58:66514LF [facility]CHEM TQZFY5579-93-09 19:58:14741MUMedStar Harbor HospitalCHEM MTTJV1288-53-68 19:58:0010[facility] HospitalCHEM OAIIU3106-35-20 19:58:001.18[facility] HospitalCHEM NQLHX1490-03-33 19:58:008.6M[facility] CenterLgdopfsxOCQUJESNCI5199-20-00 19:58:00 9.4[facility] HospitalPkdchvbnQRLVEKHVLW2731-55-66 19:58:0028.1M[facility] CenterZhkrohqtZNFMSNSCED4224-35-27 19:58:0082.2M[facility] CenterBszieoieRQHAMGWVER1825-48-85 19:58:00* Test Item Value Reference Range Interpretation Comments MCH (test code = MCH) 27.5 pg 27.0-31.0 [facility] HospitalYqkwylfzLTCWNAKKWK6325-23-88 19:58:0033.4[facility] HospitalOhydywbvPCIXZZXNXA3912-58-84 19:58:0019.9[facility] HospitalHnmytlvvWEOPDOZITQ4562-76-47 19:58:003.2MTr[facility] CenterlandHEMATOLOGY 2018-06-03 19:58:003.42[facility] HospitalIsqdmzvbGUUBZMTBEY5792-05-29 19:58:0059[facility] HONVPVULZN7819-34-82 19:58:008.7[facility] HospitalVempuxceUOSKSTWOUW2323-90-65 19:58:002.0[facility] HospitalKethtjqsZNYAOMPTGV0299-59-60 19:58:000.5[facility] HospitalBhkphslrQUMJLZWBUS0173-46-01 19:58:00 0.4[facility] HospitalHfwanwohSXXFTFCBSL2711-24-12 19:58:000.2MTr[facility] Medical CenterNfaiqkwcFCJNPFHLNX4466-25-36 19:58:000.9[facility] HospitalJnqtdpijNYNMLRRAYM7748-01-79 19:58:0013.5[facility] HospitallandHEMATOLOGY 2018-06-03 19:58:006.3M RlisdyokVEXFOSZFUO9140-09-28 19:58:0064.6[facility] JIKREAIKDU4436-12-21 19:58:0014.7[facility] HospitalDrxxomzvKCPVAMJYTB0762-05-50 19:58:001+ (06/03/18 2:58 PM)[facility] HospitalNpeydzewYQZIIGVLOM3095-62-03 19:58:00Rare *ABN*(06/03/18 2:58 PM)[facility] HospitalNqnugoekYLVTNZBSEB1556-99-06 19:58:001+ *ABN*(06/03/18 2:58 PM)[facility] WPSEEYDLHW3458-90-49 19:58:00Normal (06/03/18 2:58 PM)[facility] HospitalHEMATOLOGY 2018-06-03 19:58:00See Note (06/03/18 2:58 PM) PearlandPARATHYROID PROFILE 2018-06-03 19:58:001.00 PearlandPARATHYROID WKISLVT5079-45-40 19:58:001.00 PearlandANEMIA OBERJ8960-22-32 09:54:0057 PearlandANEMIA EZLTX9626-20-25 09:54:0044 PearlandANEMIA BSIRT0224-51-65 09:54:0014 PearlandANEMIA STUDY 2018-06-03 09:54:44346MB PearlandANEMIA EJJZF1357-00-87 09:54:69808XX[facility] SPECIAL IWYAJZLBS1361-25-05 09:54:000.09MH PearlandTUMOR YYXHGDU1432-75-78 09:54:003.3MH PearlandTUMOR FODNEWF2882-62-01 09:54:005.0MH PearlandCHEM PANEL 2018-06-02 16:54:16558.0MH PearlandPARATHYROID JEKYFWR4120-14-86 16:54:000.95MH PearlandPARATHYROID JINWHNZ2679-19-49 16:54:000.94MH PearlandCHEM PANEL 2018-06-02 10:44:001.2MH PearlandCHEM URQZT6270-07-23 10:44:002.8 PearlandCHEM LHFNB1273-72-86 10:44:00* Test Item Value Reference Range Interpretation Comments B/C Ratio (test code = B/C Ratio) 15 1 6-25 [facility]landCHEM YULKW6136-15-48 10:44:0064 [facility]CHEM ABIKW2427-32-88 10:44:0045 [facility]landCHEM NSQJE3054-82-65 10:44:001.4 PearlandCHEM PANEL 2018-06-02 10:44:0015 PearlandCHEM ADDKR3947-07-32 10:44:00* Test Item Value Reference Range Interpretation Comments A/G Ratio (test code = A/G Ratio) 0.3 1 0.7-1.6 [facility] RMTMB9423-76-05 10:44:001.7[facility] MKHWT0150-99-36 10:44:007.3MH[facility] HospitalCHEM YDSWM3761-54-03 10:44:005.6[facility] HospitalATOLOGY 2018-06-02 10:44:00* Test Item Value Reference Range Interpretation Comments INR (test code = INR) 1.34 1 0.85-1.17 [facility]YxoyjahdEOGLXHHFAC5601-52-76 10:44:00* Test Item Value Reference Range Interpretation Comments PT (test code = PT) 16.3 s 12.0-14.7 [facility] HospitalUwpcrtsgSFLOTWJRGI5664-40-53 10:44:00* Test Item Value Reference Range Interpretation Comments PTT (test code = PTT) 36.5 s 22.9-35.8 [facility]2019-03-23 02:13:001.[address] [place] [address] BANK RESULTS 2018-06-02 01:02:00Negative (06/01/18 8:02 PM)[facility] AND STOOL 2018-06-01 21:22:00Positive *ABN*(06/01/18 4:22 PM)[facility] PANEL 2018-06-01 16:01:0049[facility] HospitalCHEM OOCYB5188-58-84 16:01:0015[facility] HospitalCHEM KWOCP0126-20-03 16:01:0074[facility] HospitalCHEM FTZHS1316-68-52 16:01:001.[address] [place] [address] CHEM RPBMG3023-81-22 16:01:001.9[facility] MTMDB4055-78-53 16:01:008.[address] [place] [address] LHLBI2674-68-53 16:01:006.3[facility] NYDWF4338-17-42 16:01:00 * Test Item Value Reference Range Interpretation Comments A/G Ratio (test code = A/G Ratio) 0.3 1 0.7-1.6 [facility] QDVZK9605-84-59 16:01:00* Test Item Value Reference Range Interpretation Comments B/C Ratio (test code = B/C Ratio) 13 1 6-25 [facility] CHXYV1149-54-03 16:01:99774LISouthPointe HospitalFqhcqghrZJFQGBWOKL1147-86-79 16:01:00* Test Item Value Reference Range Interpretation Comments INR (test code = INR) 1.18 1 0.85-1.17 [facility]HealthUupnrkihMCNDCAFXVF5606-30-74 16:01:00* Test Item Value Reference Range Interpretation Comments PT (test code = PT) 14.8 s 12.0-14.7 [facility]MCHealthKxiyigizSDNOGIMLUJ9942-95-53 16:01:00* Test Item Value Reference Range Interpretation Comments PTT (test code = PTT) 33.9 s 22.9-35.8 [facility]UR[facility] AND TZBHR6871-36-55 16:01:007 [facility]UR[facility] AND STOOL 2018-06-01 16:01:00Negative (06/01/18 11:01 AM)[facility] STOOL 2018-06-01 16:01:[address] [facility] KEEXM7734-01-80 16:01:00Negative (06/01/18 11:01 AM)[facility]UR[facility] AND DYCDE2332-14-71 16:01:00Large *ABN*(06/01/18 11:01 AM)[facility] HospitalUR[facility] AND DRUYN4791-14-12 16:01:00* Test Item Value Reference Range Interpretation Comments UA Spec Grav (test code = UA Spec Grav) 1.020 1 [facility] HospitalUR[facility] AND KPJVE6304-42-28 16:01:00Slight *ABN*(06/01/18 11:01 AM)[facility]UR[facility] KZXCJ3550-57-41 16:01:00Dark Yellow (06/01/18 11:01 AM)[facility]UR[facility] AND FMGBO9155-22-69 16:01:00Negative *NA*(06/01/18 11:01 AM)[facility]UR[facility] AND UQYGJ3297-47-38 16:01:00Small *ABN*(06/01/18 11:01 AM)[facility] HospitalUR[facility] AND IEAKO8970-83-45 16:01:00* Test Item Value Reference Range Interpretation Comments UA pH (test code = UA pH) 6.0 1 5.0-8.0 [facility]URINE AND MZJNH9524-76-43 16:01:00Negative *NA*(06/01/18 11:01 AM)[facility] ABD PELVIS W/LTDI1256-18-68 18:57:00 Name: JOCELIN CORREA [facility] : 1970 Age/S: 48 / M [address] Unit #: [id number] Loc: [place] [address] Phys: Sanya Syed MD Acct: [id number] Dis Date: Status: REG ER PHONE #: [phone] Exam Date: 05/05/20181826 FAX #: [phone] Reason: abd pain EXAMS: CPT CODE: [id number] CT ABD PELVIS W/CONT 56144 HISTORY: Abdominal pain. COMPARISON: December 18, 2017. [...] 1 Signed Report (CONTINUED) Name: JOCELIN CORREA [facility] : 1970 [age]/S: [age] / M [address] [facility] Unit #: [id number] Loc: [place] [address] Phys: Sanya Syed MD Acct: [id number] Dis Date: Status: REG ER PHONE #: [phone] Exam Date: 05/05/20181826 FAX #: [phone] Reason: abd pain EXAMS: CPT CODE: [id number] CT ABD PELVIS W/CONT 39170 <Continued> varices. No hydroureteronephrosis. Punctate bilateral 1 [...] RT(R),CT CTDI: DLP: Trnscb Date/Time: 05/05/2018 (1856) t.SDR.[email or web address] Orig Print D/T: S: 05/05/2018 (1899) CTDI: DLP: PAGE 2 Signed Report BASIC [...] CA) 8.1 mg/dL 8.5-10.1 L HEPATIC FUNCTION CZKOS5209-63-37 16:39:00* Test Item Value Reference Range Interpretation [...] reference range due to change in reagent. DILUBH4258-25-66 16:39:00* Test Item Value Reference Range Interpretation Comments LIPASE (test code = LIP) 72 U/L 73.0-393.0 L XNKXTRFC-F3021-09-23 16:39:00* Test Item Value Reference Range Interpretation Comments TROPONIN-I (test code = TROPI) <0.015 ng/mL 0-0.045 N VYYLFWJ1845-87-80 16:39:00* Test Item Value Reference Range Interpretation [...] ANADDITIONAL CHARGE TO THE PATIENT. BASIC METABOLIC KOGOA8528-48-26 16:30:00* Test Item Value Reference Range Interpretation [...] code = CA) mg/dL 8.5-10.1 HEPATIC FUNCTION IXNQF4414-94-17 16:30:00* Test Item Value Reference Range Interpretation [...] TOTAL (test code = ALKP) IUnit/L 45-117 VNVQSV7003-13-40 16:30:00* Test Item Value Reference Range Interpretation Comments LIPASE (test code = LIP) U/L 73.0-393.0 DWDGXUKB-U9338-94-23 16:30:00* Test Item Value Reference Range Interpretation Comments TROPONIN-I (test code = TROPI) ng/mL 0-0.045 NNVSIDK1116-01-80 16:30:00* Test Item Value Reference Range Interpretation Comments ALCOHOL (test code = ALC) mg/dL 0-3 CBC W/O VJRC1179-88-43 16:10:00* Test Item Value Reference Range Interpretation [...] = MPV) 10.0 fL 6.7-11.0 N CARDIAC KMNPXBG7823-84-15 23:31:00<0.02 [facility] BILYTXP8049-08-08 23:31:0030 [facility] RDWXA7337-21-11 23:31:53677LV [facility] PANEL 2018-04-18 23:31:009 [facility] XTRPF0301-44-87 23:31:000.78MH [facility] ETHZO5303-81-17 23:31:0064 [facility] SIBYX4853-98-57 23:31:000.4 [facility] LRTYF2047-91-25 23:31:0015 [facility] PTOLL8225-81-77 23:31:003.7 [facility] YVUJM3410-21-52 23:31:11196BZ [facility] PANEL 2018-04-18 23:31:09284BM [facility] DSCNH9094-78-72 23:31:003.7 [facility] LRMKD9976-60-50 23:31:007.5 [facility] ZOZQE6435-36-76 23:31:008.7 [facility] NBSPC3322-63-47 23:31:0027 [facility] VTMIF5879-82-75 23:31:0019 [facility] RBELV9309-96-11 23:31:0098 [facility] PANEL 2018-04-18 23:31:00* Test Item Value Reference Range Interpretation Comments B/C Ratio (test code = B/C Ratio) 12 1 6-25 MH [facility] NBXYI5660-79-59 23:31:00* Test Item Value Reference Range Interpretation Comments A/G Ratio (test code = A/G Ratio) 1.0 1 0.7-1.6 [facility] KXSDB1543-81-11 23:31:009.7 [facility] ECGML0906-33-37 23:31:003.8 VddwvhuwzTSVNHFXSEXCP6137-54-63 23:31:009.7 [facility] XWENBUOGOFAU2770-55-80 23:31:00* Test Item Value Reference Range Interpretation Comments B/C Ratio (test code = B/C Ratio) 12 1 6-25 RpqdkdnojGUOLWCMUOBMR5864-42-06 23:31:003.8 NgsejwimnLUDNCCPAUSMZ6314-72-23 23:31:00* Test Item Value Reference Range Interpretation Comments A/G Ratio (test code = A/G Ratio) 1.0 1 0.7-1.6 XhmntvusqGLUPJARYODZE4019-57-30 23:31:0098 HiaxaymbxTWVAWEKUJVFK2854-94-20 23:31:009 KcwagmachHIZGDLCBXAZV6357-66-76 23:31:000.78 [facility] 2018-04-18 23:31:18750KE MorxstfixSTKCWAEJSQEU7337-31-37 23:31:003.7 [facility] FXCZYZIWVJZV8584-72-24 23:31:13731XX KextemphqMANPPXYCYMJA9744-95-32 23:31:0027 QxmufwwciVTEHOYVEJIUO4266-78-44 23:31:008.7 VyucvrajxMBPZGKCBZFBP2133-52-01 23:31:007.5 KazjtteolDXIOVUBEIFGT9744-10-87 23:31:003.7 [facility] WRYEMKLTRUHJ9435-29-88 23:31:0019 HycbegiesVQTEMQUVHQLW9327-39-56 23:31:0015 UpcgnafqsICDKXNVNMOLU1032-95-11 23:31:0064 GuoynnxczGJWWFPUJSGVX1454-77-10 23:31:000.4 PhyooilrvKRMEXCKBKXUM3099-83-53 23:31:96653UE [facility] 2018-04-18 23:31:009.3M QooguhhhzIUXCUKZGJP0073-97-72 23:31:004.63[facility] UZGBMZUIXL3174-50-56 23:31:0014.2[facility]XjgszisyjXJQVTJNCSD8941-48-18 23:31:0041.6M KbxmecscbFKYSVUPICM6160-23-03 23:31:0089.8 EyoiclpjiYAVWJZDTFB2433-67-58 23:31:00* Test Item Value Reference Range Interpretation Comments MCH (test code = MCH) 30.5 pg 27.0-31.0 JovfthblxQQCXOLHMBQ5923-87-31 23:31:0034.0 JizepxsmiWOGTVBYTWS4245-64-83 23:31:0014.5 ZlnibthfvDPIVEKNIHF7417-10-30 23:31:09699SJ [facility] 2018-04-18 23:31:009.3M KbsocuqrwHOQAZAYFUY1813-25-87 23:31:00* Test Item Value Reference Range Interpretation Comments INR (test code = INR) 1.05 1 0.85-1.17 [facility]wljKYSJYFPVAQ8346-43-50 23:31:00* Test Item Value Reference Range Interpretation Comments PT (test code = PT) 13.5 s 12.0-14.7 ZokulsxyzTBCAKXQZUD8523-92-58 23:31:00* Test Item Value Reference Range Interpretation Comments PTT (test code = PTT) 29.1 s 22.9-35.8 GwyopwlwePPBZLZCRHB7312-41-09 23:31:0069.7 KkaztkrhkAOJJZTUQER4098-64-98 23:31:0023.9 QbvblpjntAYKTWSYPNA9454-62-98 23:31:004.6M [facility] 2018-04-18 23:31:001.5 BprsophdiFOWRMGVSSR9487-47-11 23:31:000.3[facility] QMNARPINZV1057-62-69 23:31:006.5 ZagdeiylvOBBVTVQGXG8394-45-90 23:31:002.2M GtwajdjhvEQAXXNIJIS9428-71-65 23:31:000.4 TunfaychbUWBXRLTEGX3170-03-46 23:31:000.1M [facility] DPEEL1774-46-08 23:31:00Clear (04/18/18 5:31 PM) [facility] IVTGD6142-35-68 23:31:00* Test Item Value Reference Range Interpretation Comments UA Spec Grav (test code = UA Spec Grav) 1.010 1 [facility] IUAHW1326-22-87 23:31:00* Test Item Value Reference Range Interpretation Comments UA pH (test code = UA pH) 8.0 1 5.0-8.0 [facility] KADFG2544-92-28 23:31:00Negative (04/18/18 5:31 PM) [facility] YIWAP1090-17-54 23:31:00Negative *NA*(04/18/18 5:31 PM) [facility] HEQWN8524-84-40 23:31:00Negative *NA*(04/18/18 5:31 PM) [facility] SYFJJ5455-53-81 23:31:00Negative *NA*(04/18/18 5:31 PM) [facility]URINE AND WIQJG1695-21-96 23:31:00Negative (04/18/18 5:31 PM)[facility] URINE AND NGRMC2017-22-88 23:31:00Negative (04/18/18 5:31 PM)[facility] ISUNR1029-51-90 23:31:00Trace *ABN*(04/18/18 5:31 PM) [facility]URINE AND STOOL 2018-04-18 23:31:006[facility] KCVZU5387-87-84 23:31:001[facility] URINE AND BDTUR4418-43-08 23:31:006[facility] Northeast[facility]ABOLIC UJRGK6903-54-41 21:06:00* Test Item Value Reference Range Interpretation [...] CA) 8.1 mg/dL 8.5-10.1 L HEPATIC FUNCTION FQEKH0266-67-77 21:06:00* Test Item Value Reference Range Interpretation [...] reference range due to change in reagent. PYJNUQZZQ7207-07-61 21:06:00* Test Item Value Reference Range Interpretation Comments MAGNESIUM (test code = MAG) 1.5 mg/dL 1.8-2.4 L MWXCULWV-Y6431-19-06 21:06:00* Test Item Value Reference Range Interpretation Comments TROPONIN-I (test code = TROPI) <0.015 ng/mL 0-0.045 N PROTHROMBIN [id number] 20:45:00* Test Item Value Reference Range Interpretation [...] (2.5-3.5) IS PATIENT ON ANTICOAGULANTS? NTHROMBOPLASTIN TIME DLVAGBJ6583-67-90 20:45:00* Test Item Value Reference Range Interpretation Comments THROMBOPLASTIN TIME PARTIAL (test code = PTT) 40.7 seconds 25.0-36. 5 H IS PATIENT ON ANTICOAGULANTS? NBASIC METABOLIC [id number] 20:40:00* Test Item Value Reference Range Interpretation [...] code = CA) mg/dL 8.5-10.1 HEPATIC FUNCTION [id number] 20:40:00* Test Item Value Reference Range Interpretation [...] TOTAL (test code = ALKP) IUnit/L 45-117 RGIILLLQT9076-40-55 20:40:00* Test Item Value Reference Range Interpretation Comments MAGNESIUM (test code = MAG) mg/dL 1.8-2.4 KTAOBPMP-D5540-60-06 20:40:00* Test Item Value Reference Range Interpretation Comments TROPONIN-I (test code = TROPI) ng/mL 0-0.045 CBC W/O [id number] 20:37:00* Test Item Value Reference Range Interpretation [...] fL 6.7-11.0 N - CT HEAD/BRAIN W/O [id number] 20:09:00 Name: JOCELIN CORREA [facility] : 1970 Age/S: 48 / M [address] Unit #: [id number] Loc: [place] [address] Phys: MARYAN ROBERTS MD Acct: [id number] Dis Date: Status: REG ER PHONE #: [phone] Exam Date: 04/18/20182007 FAX #: [phone] Reason: fall, head trauma, blood in ear EXAMS: CPT CODE: [id number] CT HEAD/BRAIN W/O CONT 80646 REASON FOR EXAM: fall, head trauma, blood in ear EXAM ORDER DATE: 04/18/2018 7:49 PM Ordering MRowan: MARYAN ROBERTS MD PROCEDURE: - CT HEAD/BRAIN [...] calvarium is intact. IMPRESSION: Unremarkable brain. at 2008 Reported and signed by: Yuval Multani M.D. CC: MARYAN ROBERTS MD Technologist:RT JANEEN(R) CT CTDI: DLP: Trnscb Date/Time: 04/18/2018 (2008) t.SDR.VTL Orig Print D/T: S: 04/18/2018 (2012) CTDI: DLP: PAGE 1 Signed Report - US ABDOMEN [id number] 07:09:00 Name: CHELLY CORREA [facility] : 1970 Age/S: 48 / M [address] [facility] Unit #: [id number] Loc: [place] [address] Phys: Giovanna Rees MD Acct: [id number] Dis Date: Status: ADM IN PHONE #: [phone] Exam Date: 04/09/201826 FAX #: [phone] Reason: abd pain. evaluate lesion in ascites EXAMS: CPT CODE: [id number] US ABDOMEN COMPLETE 16369 REASON FOR EXAM: abd pain. evaluate lesion [...] Technologist: GAIL SHIPLEY RDMS Trnscb Date/Time: 04/10/2018 (07) Hitesh Orig Print D/T: S: 04/10/2018 (0712) Probe: PAGE 1 Signed Report CBC W/AUTO [id number] 06:40:00* Test Item Value Reference Range Interpretation [...] = MDIFF) NO, ONLY SCAN NEEDED DIFFERENTIAL [id number] 06:40:00* Test Item Value Reference Range Interpretation Comments STAIN ACCEPTABILITY (test code = STN ACCEPTABLE) STAIN ACCEPTABLE POLYCHROMASIA (test code = POLC) 2+ ANISOCYTOSIS (test code = ANISO) 2+ MACROCYTOSIS (test code = MACR) 2+ PLATELET ESTIMATE (test code = PLTEST) DECREASED PLATELET MORPHOLOGY (test code = PLTMORPH) NORMAL BASIC METABOLIC [id number] 06:20:00* Test Item Value Reference Range Interpretation [...] code = CA) 7.8 mg/dL 8.5-10.1 L FKDMJLKMI8729-71-70 06:20:00* Test Item Value Reference Range Interpretation Comments MAGNESIUM (test code = MAG) 1.4 mg/dL 1.8-2.4 L CBC W/AUTO [id number] 06:17:00* Test Item Value Reference Range Interpretation [...] = MDIFF) NO, ONLY SCAN NEEDED DIFFERENTIAL [id number] 06:17:00* Test Item Value Reference Range Interpretation Comments STAIN ACCEPTABILITY (test code = STN ACCEPTABLE) CABOT RINGS (test code = CAB) MORPHOLOGY COMMENT (test code = MOC) PLATELET ESTIMATE (test code = PLTEST) PLATELET MORPHOLOGY (test code = PLTMORPH) CBC W/AUTO [id number] 06:17:00* Test Item Value Reference Range Interpretation [...] = MDIFF) NO, ONLY SCAN NEEDED DIFFERENTIAL [id number] 06:17:00* Test Item Value Reference Range Interpretation Comments STAIN ACCEPTABILITY (test code = STN ACCEPTABLE) CABOT RINGS (test code = CAB) MORPHOLOGY COMMENT (test code = MOC) PLATELET ESTIMATE (test code = PLTEST) PLATELET MORPHOLOGY (test code = PLTMORPH) CBC W/AUTO [id number] 06:17:00* Test Item Value Reference Range Interpretation [...] = MDIFF) NO, ONLY SCAN NEEDED DIFFERENTIAL [id number] 06:17:00* Test Item Value Reference Range Interpretation Comments STAIN ACCEPTABILITY (test code = STN ACCEPTABLE) MORPHOLOGY COMMENT (test code = MOC) PLATELET ESTIMATE (test code = PLTEST) PLATELET MORPHOLOGY (test code = PLTMORPH) CBC W/AUTO [id number] 06:17:00* Test Item Value Reference Range Interpretation [...] = MDIFF) NO, ONLY SCAN NEEDED DIFFERENTIAL [id number] 06:17:00* Test Item Value Reference Range Interpretation Comments STAIN ACCEPTABILITY (test code = STN ACCEPTABLE) CABOT RINGS (test code = CAB) MORPHOLOGY COMMENT (test code = MOC) PLATELET ESTIMATE (test code = PLTEST) PLATELET MORPHOLOGY (test code = PLTMORPH) BASIC METABOLIC [id number] 06:12:00* Test Item Value Reference Range Interpretation [...] CALCIUM (test code = CA) mg/dL 8.5-10.1 WARSUKUXK4013-54-48 06:12:00* Test Item Value Reference Range Interpretation Comments MAGNESIUM (test code = MAG) mg/dL 1.8-2.4 PROTHROMBIN [id number] 06:12:00* Test Item Value Reference Range Interpretation [...] PATIENT ON ANTICOAGULANTS? N- CT ABD PELVIS W/[id number] 13:44:00 Name: CHELLY CORREA [facility] : 1970 Age/S: 48 / M [address] [facility] Unit #: [id number] Loc: [place] [address] Phys: Fransisco Valdez MD Acct: [id number] Di s Date: Status: REG ER PHONE #: Exam Date: 04/09/2018 8675 FAX #: Reason: upper abd pain EXAMS: CPT CODE: [id number] CT ABD PELVIS W/CONT 03285 EXAM: CT of the abdomen a nd [...] Mandujano RT(R),(MR),(CT) CTDI: DLP: Trnscb Date/Time: 04/09/2018 (0849) t.LIASR.GRW Orig Print D/T: S: 04/09/2018 (6942) CTDI: DLP: PAGE 1 Signed Report URINALYSIS [id number] 13:28:00* Test Item Value Reference Range Interpretation [...] per LPF NONE-FEW Urine Source? Clean CatchURINALYSIS [id number] 12:46:00* Test Item Value Reference Range Interpretation [...] HPF 0-5 Urine Source? Clean CatchCBC W/O [id number] 12:33:00* Test Item Value Reference Range Interpretation [...] MPV) 11.6 fL 6.7-11.0 H BASIC METABOLIC [id number] 12:08:00* Test Item Value Reference Range Interpretation [...] CA) 8.2 mg/dL 8.5-10.1 L HEPATIC FUNCTION [id number] 12:08:00* Test Item Value Reference Range Interpretation [...] reference range due to change in reagent. [id number] 12:08:00* Test Item Value Reference Range Interpretation Comments LIPASE (test code = LIP) 114 U/L 73.0-393.0 N [id number]-K3806-14-28 12:08:00* Test Item Value Reference Range Interpretation Comments TROPONIN-I (test code = TROPI) <0.015 ng/mL 0-0.045 N BASIC METABOLIC [id number] 11:58:00* Test Item Value Reference Range Interpretation [...] code = CA) mg/dL 8.5-10.1 HEPATIC FUNCTION [id number] 11:58:00* Test Item Value Reference Range Interpretation [...] TOTAL (test code = ALKP) IUnit/L 45-117 [id number] 11:58:00* Test Item Value Reference Range Interpretation Comments LIPASE (test code = LIP) U/L 73.0-393.0 BASIC METABOLIC [id number] 11:52:00* Test Item Value Reference Range Interpretation [...] code = CA) mg/dL 8.5-10.1 HEPATIC FUNCTION [id number] 11:52:00* Test Item Value Reference Range Interpretation [...] TOTAL (test code = ALKP) IUnit/L 45-117 [id number] 11:52:00* Test Item Value Reference Range Interpretation Comments LIPASE (test code = LIP) U/L 73.0-393.0 PROTHROMBIN [id number] 11:42:00* Test Item Value Reference Range Interpretation [...] (2.5-3.5) IS PATIENT ON ANTICOAGULANTS? NTHROMBOPLASTIN TIME [id number] 11:42:00* Test Item Value Reference Range Interpretation Comments THROMBOPLASTIN TIME PARTIAL (test code = PTT) 39.0 seconds 25.0-36. 5 H IS PATIENT ON ANTICOAGULANTS? WENCESLAOGTQHMCV5575-68-63 12:51:00 RUN DATE: 12/25/17 [facility] [employer] PAGE 1 RUN TIME: 1251 Specimen Inqui ry RUN USER: INTERFACE PATIENT: JOCELIN CORREA ACCT #: [id number] LOC: [place]aleyJESSICA U #: [id number] AGE/SX: 47/M ROOM: [facility] RE12/19/17NATALIYA DR: Giovanna Rees MD : 70 BED: A DIS: 12/21/17 STATUS: DIS IN TLOC: SPEC #: [id number] RECD: 12/19/17 STATUS: SOULalito REQ #: [id number] MELISA: 12/19/[address] [facility] [address]: Yuval Multani MD ENTERED: 10/09/18-1236 SP TYPE: FL ASCITES OTHR DR: Ian Olivas i, MD ORDERED: GROSS COPIES TO: Ina Cook MD [address], [address] [place], [place] [address] Yuval Multani MD [address] [place] [address] PROCEDURES: GROSS (12/25/17- 7) TISSUES: ASCITES FLUID - 20 ML RED CLINICAL HISTORY MELISA ECTION DATE: 12/19/17 HISTORY CIRRHOSIS, HEPATITIS C, PANCYTOPENIA FINAL DIAGNOSIS Ascites fluid for cytology, paracentesis: MESOTHELIAL CELLS, MACROPHAGES, WHITE BLOOD CELLS- PREDOMINATELY LYMPHOCYTES, AND R ED BLOOD CELLS NEGATIVE FOR MALIGNANCY DMW/arin D 23155, 883 05 MACROSCOPIC The specimen consists of 20 mL of red fluid for conc entration and evaluation. A cell block will be prepared. GROSS PERFORM ED AT [facility] CONTINUED ON NEXT PAGE RUN DATE: 12/25/17 [facility] PAGE 2 RUN TIME: 1251 Specimen Inquiry RUN USER: INTERFACE SPEC #: [id number] PATIENT: JOCELIN CORREA #[id number] (Continued)------ ------ MACROSCOPIC (Continued) [address], [place] [address] (P)[phone] MICROSCOPIC MICROSCOPIC PERFOR MED AT [facility] All of the stains, including any controls perfor med, stain appropriately. [facility] [address], [place] [address] (P)[phone] PERFORMING SITE Diagnosis perform ed at: [facility], [place] [address] [place] [address] Signed SIGNATURE ON FILE SheehanMireya 12/25/17 1251 END OF REPORT STOMACH 2017-12-22 13:27:00 RUN DATE: 12/22/17 [facility] PAGE 1 RUN TIME: 1327 Specimen Inqui ry RUN USER: INTERFACE PATIENT: JOCELIN CORREA ACCT #: [id number] LOC: DEON U #: [id number] AGE/SX: 47/M ROOM: [facility] RE12/19/17REG DR: Giovanna Rees MD : 70 BED: A DIS: 12/21/17 STATUS: DIS IN TLOC: SPEC #: [id number] RECD: 12/21/17 STATUS: [facility] #: [id number] MELISA: 12/20/17- SUBM DR: González Nunez MD ENTERED: 12/21/17-1110 SP TYPE: STOMACH OTHR DR: Ian Olivas i, MD ORDERED: GROSS COPIES TO: González Nunez MD [address] [place] [address] Ian Cook MD [address], [address] [place] [address] PROCEDURES: GROSS (12/22/17-1054 ) TISSUES: GASTRIC ULCER - BX CLINICAL HISTORY COLLECTION D ATE: 12/20/17 MASS IN COLON, ABDOMINAL PAIN COMMENT A few co xoid structures are identified by Giemsa stain. These are suggestive of the co xoid form of Helicobacter pylori. No structures with the typical spiraled arch itecture of Helicobacter pylori are seen. Correlation is suggested. QUEENIE BERGERON DIAGNOSIS Gastric tissue, cold biopsy: PATCHY CHRONIC GASTRITIS WIT HOUT ACTIVITY NEGATIVE FOR INTESTINAL METAPLASIA FEW STRUCTURES JIMENES GGESTIVE OF HELICOBACTER ORGANISMS IDENTIFIED BY GIEMSA STAIN NE GATIVE FOR MALIGNANCY RRB/ D [address]108, [address] CONTINUED ON NEXT PAGE RUN DATE: 12/22/17 [facility] PAGE 2 RUN TIME: 1327 Specimen Inquiry RUN USER: INTERF MARTIN SPEC # : [id number] PATIENT: SUNNYJOCELIN #[id number] (Cont inued) MACROSCOPIC The specimen is received in formali n, labeled with the patient's name, identified as "gastric", and consists of l lavonnet king biopsy tissue measuring 0.35 cm in aggregate, submitted for H E and G iemsa stains. GROSS PERFORMED AT [facility] [address] [facility] [place] [address] [phone])[phone] MICR OSCOPIC MICROSCOPIC PERFORMED AT [facility] All of the stains, including any controls performed, stain appropriately. [facility] [address] [facility] [place] [address] (p)[phone] PERFORM ING SITE Diagnosis performed at: [facility] [address] [place] [address] --------- --- Signed SIGNATURE ON FILE Elvis Schmid 12/22/17 1327 END OF REP ORT CHEM [id number] 14:13:001.2MLeon[facility] HospitalHsyfkwcynGTSDTDQYOQ4891-07-23 07:45:00 1.0[facility] NortheastGouaeecdiXTLVSWAESW5816-88-14 07:45:001.9[facility] NortheastMynhfehupWMXTOSCQIW0884-23-27 07:45:000.2MLeonard Morse HospitalJanniecixWPMJQYZIRT1761-31-05 07:45:000.5[facility]Y 2017-09-16 07:45:000.9 FoljqyqhoRIGRHIEEXU9730-29-84 07:45:005.5[facility] MOFEHVVSQB6015-96-00 07:45:0053.9 DebxcbguaBYBXRAREZY3017-38-37 07:45:0012.6MH KgecwapsjCTCQVCHAPH9260-95-86 07:45:0027.1M QyldithxnBHXDUHHAXU6538-42-18 07:45:00* Test Item Value Reference Range Interpretation Comments PTT (test code = PTT) 33.3 s 22.9-35.8 KvyxsjfkfFWFIZMEVOL0319-12-73 07:45:00* Test Item Value Reference Range Interpretation Comments INR (test code = INR) 1.53 1 0.85-1.17 FsxlxkqpyQXJEBDIGPK5151-97-24 07:45:00* Test Item Value Reference Range Interpretation Comments PT (test code = PT) 18.5 s 12.0-14.7 EamhbhtgoQPMIYYHCGW5754-73-05 07:45:0033.1MH XbiipuqhgOLEVILQWZQ1983-74-70 07:45:0029.3MH JkzzvdlduOTAQEOWWUM7903-84-77 07:45:0097.4 [facility]Y 2017-09-16 07:45:00* Test Item Value Reference Range Interpretation Comments MCH (test code = MCH) 32.2 pg 27.0-31.0 SnjtmgthkYJTDIEGYYH2047-49-00 07:45:0068 FkqcxbnndAHPOWUUIKW2048-08-06 07:45:0017.5 QnjtljnceOKOMYMFCSD5584-05-57 07:45:008.2MH SoutheastHEMATOLOGY 2017-09-16 07:45:003.01 VdvtodohtWZJGZYPQHH7611-43-89 07:45:009.7 [facility] IAFYJDIPSG7608-31-37 07:45:003.6MH SoutheastCARDIAC XMRSCBY5118-02-77 07:24:00< 1.3MH SoutheastCARDIAC EFFAPOP0867-95-37 07:24:00<1.0MH SoutheastCARDIAC ENZYMES 2017-09-16 07:24:0079 SoutheastCARDIAC RTQNRFF5342-65-73 07:24:00<0.02MH SoutheastCHEM RWOQN1837-90-93 07:24:006.0 [facility]CHEM BFMQI6833-58-10 07:24:00* Test Item Value Reference Range Interpretation Comments B/C Ratio (test code = B/C Ratio) 16 1 6-25 [facility]M FTCXR5714-56-08 07:24:00* Test Item Value Reference Range Interpretation Comments A/G Ratio (test code = A/G Ratio) 0.3 1 0.7-1.6 [facility] RYWRO9600-02-11 07:24:0099 [facility] TGWZE3563-20-56 07:24:0086 [facility] NCJLO6999-93-95 07:24:001.5 [facility]M PANEL 2017-09-16 07:24:007.7 [facility]CHEM ZRTQW2587-80-61 07:24:99801GW [facility] CHEM AIAQJ1059-39-27 07:24:67732PJ SoutheastCHEM RVLPO5896-93-25 07:24:004.7MH SoutheastCHEM OFRJO4184-02-49 07:24:008.3MH [facility]CHEM TGNQY9962-30-24 07:24:0026MH SoutheastCHEM VSZBY0410-78-93 07:24:007.8 SoutheastCHEM PANEL 2017-09-16 07:24:0033 [facility]CHEM YPONR7855-94-74 07:24:001.8 [facility] CHEM IFOCD4065-51-45 07:24:000.82MH SoutheastCHEM AMKJF6415-27-70 07:24:0013 [facility]CHEM BQHUO1895-50-84 07:24:37534FE SoutheastCHEM HMMWZ0977-92-27 07:24:0095 [facility]CHEM FDCFC1979-74-38 07:24:31824PO SoutheastURINE AND PJAHO3075-67-17 07:24:004.0 [facility] AND CTWEL3020-76-59 07:24:00 Negative (09/16/17 2:24 AM) [facility] AND MNEQP7961-23-28 07:24:00Negative (09/16/17 2:24 AM)MH SoutheastURINE AND XMWXG3837-17-69 07:24:003MH SoutheastURINE AND LHIIW7270-39-20 07:24:0069 [facility]URINE AND KCWNA9705-15-46 07:24:00 Slight *ABN*(09/16/17 2:24 AM) [facility]URINE AND JECLC8759-91-30 07:24:00* Test Item Value Reference Range Interpretation Comments UA Spec Grav (test code = UA Spec Grav) 1.019 1 SoutheastURINE AND THJEK6350-04-00 07:24:00* Test Item Value Reference Range Interpretation Comments UA pH (test code = UA pH) 6.0 1 5.0-8.0 MH SoutheastURINE AND XYZCO9762-17-03 07:24:00Moderate *ABN*(09/16/17 2:24 AM) SoutheastURINE AND VVXDZ5681-44-07 07:24:00Negative *NA*(09/16/17 2:24 AM)[facility] Mtmautb8234-34-32 16:48:00* Test Item Value Reference Range Interpretation Comments Blood Culture (test code = 27873217) NO GROWTH AFTER 5 DAYS, FINAL REPORT [facility] A IgM Abcqrnnh2637-11-52 10:18:00* Test Item Value Reference Range Interpretation Comments Hepatitis A IgM Antibody (test code = 72648-4) Negative [facility] B Surface Nakwudv4015-84-22 10:18:00* Test Item Value Reference Range Interpretation Comments Hepatitis B Surface Antigen (test code = 5196-1) Negative [facility] B Core IgM Gyqqrgnc6155-71-09 10:18:00* Test Item Value Reference Range Interpretation Comments Hepatitis B Core IgM Antibody (test code = 78652-8) Negative [facility] C Hujvydkm9804-30-42 10:18:00* Test Item Value Reference Range Interpretation Comments Hepatitis C Antibody (test code = 02245-9) 11.0- Reference Range: 0.0 - 0.9 s/co ratioNegative: < 0.8Indeterminate: 0.8 - 0.9Positive: > 0.9 The CDC recommends that a positive HCV antibody result be followed up with a HCV Nucleic Acid Amplification test (312519).Results called to SERG LINTON RN at 1017 on 06/20/17 by Michael Whalen. RB OK.Testing performed by:[address] [phone]: Lopez Morgan [facility] BudaPlatelet Zaymouwa3359-37-89 10:18:00* Test Item Value Reference Range Interpretation Comments Platelet Estimate (test code = 62266-2) SLIGHTLY DECREASED [facility] HospitalPlatelet Morphology Yhlvaru7999-77-68 10:18:00* Test Item Value Reference Range Interpretation Comments Platelet Morphology Comment (test code = 29619-4) FEW GIANT [facility] HospitalHypochromasia2018-04-09 10:18:00* Test Item Value Reference Range Interpretation Comments Hypochromasia (test code = 728-6) MODERATE [facility] HospitalPoikilocytosis2018-04-09 10:18:00* Test Item Value Reference Range Interpretation Comments Poikilocytosis (test code = 779-9) SLIGHT [facility] HospitalAnisocytosis2018-04-09 10:18:00* Test Item Value Reference Range Interpretation Comments Anisocytosis (test code = 702-1) SLIG [facility] HospitalRed Cell Morphology Pbcglfy0205-04-65 10:18:00* Test Item Value Reference Range Interpretation Comments Red Cell Morphology Comment (test code = 6742-1) NORMAL [facility] HospitalProthrombin Ovte4831-18-18 08:34:00* Test Item Value Reference Range Interpretation Comments Prothrombin Time (test code = 5902-2) 18.4 11.9-14.5 H [facility] HospitalProthromb Time International Ratio 2017-06-19 08:34:00* Test Item Value Reference Range Interpretation Comments Prothromb Time International Ratio (test code = 6301-6) 1.66 Oral Anticoagulant Therapy INR Values:1. Low Intensity Therapy 1.5 - 2.02 . Moderate Intensity Therapy 2.0 - 3.03. High Intensity Therapy(1) 2.5 - 3. 54. High Intensity Therapy(2) 3.0 - 4.05. Panic Value INR > 5.0 [facility] HospitalActivated Partial Thromboplast Time 2017-06-19 08:34:00* Test Item Value Reference Range Interpretation Comments Activated Partial Thromboplast Time (test code = 72788-3) 37.5 23.8-35.5 H [facility] HospitalTotal Cqcokdibx9321-50-44 08:09:00* Test Item Value Reference Range Interpretation Comments Total Bilirubin (test code = 1975-2) 2.0 0.2-1.2 H [facility] Campusodium Kvhdq7387-63-04 08:01:00* Test Item Value Reference Range Interpretation Comments Sodium Level (test code = 2951-2) 131 136-145 L [facility] HospitalPotassium Etybc9542-26-72 08:01:00* Test Item Value Reference Range Interpretation Comments Potassium Level (test code = 2823-3) 3.5 3.5-5.1 [facility] HospitalChloride Mrmvw6618-81-14 08:01:00* Test Item Value Reference Range Interpretation Comments Chloride Level (test code = 2075-0) 102 98-107 [facility] HospitalCarbon Dioxide Ziage4778-60-74 08:01:00* Test Item Value Reference Range Interpretation Comments Carbon Dioxide Level (test code = 2028-9) 27 22-29 [facility] HospitalAnion Zoi8886-12-78 08:01:00* Test Item Value Reference Range Interpretation Comments Anion Gap (test code = 22347-9) 5.5 8-16 L [facility] HospitalBlood Urea Uxnmdgap9162-94-34 08:01:00* Test Item Value Reference Range Interpretation Comments Blood Urea Nitrogen (test code = 3094-0) 8 7-26 [facility] HospitalCreatinine2018-04-09 08:01:00* Test Item Value Reference Range Interpretation Comments Creatinine (test code = 2160-0) 0.85 0.72-1.25 [facility] HospitalBUN/Creatinine Zohrr2636-81-94 08:01:00* Test Item Value Reference Range Interpretation Comments BUN/Creatinine Ratio (test code = 3097-3) 9 6-25 [facility] HospitalEstimat Glomerular Filtration Rate 2017-06-19 08:01:00* Test Item Value Reference Range Interpretation Comments Estimat Glomerular Filtration Rate (test code = 60300-6) 60- >60 Ranges were taken from the National Kidney Disease Education Program and the [facility] [employer] literature.Reference ranges:60 or greater: Cnlqtr13-24 ( for 3 consecutive months): Chronic kidney disease 15 or less: Kidney failureMemorial Hermann Sugar Land HospitalGlucose Gtsiz8853-63-31 08:01:00* Test Item Value Reference Range Interpretation Comments Glucose Level (test code = TRL8872) 121 74-118 H [facility] HospitalCalcium Kfuvk2063-46-11 08:01:00* Test Item Value Reference Range Interpretation Comments Calcium Level (test code = 44954-4) 7.3 8.4-10.2 L [facility] HospitalAspartate Amino Transf (AST/SGOT) 2017-06-19 08:01:00* Test Item Value Reference Range Interpretation Comments Aspartate Amino Transf (AST/SGOT) (test code = Aspartate Amino Transf (AST/SGOT)) 51 5-34 H [facility] HospitalAlanine Aminotransferase (ALT/SGPT) 2017-06-19 08:01:00* Test Item Value Reference Range Interpretation Comments Alanine Aminotransferase (ALT/SGPT) (test code = 1742-6) 17 0-55 [facility] HospitalTotal Hvovihm9080-49-43 08:01:00* Test Item Value Reference Range Interpretation Comments Total Protein (test code = 2885-2) 6.5 6.5-8.1 [facility] HospitalAlbumin2018-04-09 08:01:00* Test Item Value Reference Range Interpretation Comments Albumin (test code = 1751-7) 1.6 3.5-5.0 L [facility] HospitalGlobulin2018-04-09 08:01:00* Test Item Value Reference Range Interpretation Comments Globulin (test code = 06498-6) 4.9 2.3-3.5 H [facility] HospitalAlbumin/Globulin Cmyrg5164-08-14 08:01:00 * Test Item Value Reference Range Interpretation Comments Albumin/Globulin Ratio (test code = 1759-0) 0.3 0.8-2.0 L [facility] HospitalAlkaline Ckhubklwfxa7015-72-19 08:01:00* Test Item Value Reference Range Interpretation Comments Alkaline Phosphatase (test code = 6768-6) 47 40-150 [facility] HospitalWhite Blood [id number] 07:48:00* Test Item Value Reference Range Interpretation Comments White Blood Count (test code = 6690-2) 2.52 4.8-10.8 L [facility]Red Blood [id number] 07:48:00* Test Item Value Reference Range Interpretation Comments Red Blood Count (test code = 789-8) 2.78 4.3-5.7 L [facility] HospitalHemoglobin2018-04-09 07:48:00* Test Item Value Reference Range Interpretation Comments Hemoglobin (test code = 82215-5) 9.3 14.0-18.0 L [facility] HospitalHematocrit2018-04-09 07:48:00* Test Item Value Reference Range Interpretation Comments Hematocrit (test code = 4544-3) 27.3 38.2-49.6 L [facility] HospitalMean Corpuscular Jkxwcn1840-20-33 07:48:00* Test Item Value Reference Range Interpretation Comments Mean Corpuscular Volume (test code = 787-2) 98.2 81-99 [facility] HospitalMean Corpuscular Uqexxmzqjx7552-19-42 07:48:00* Test Item Value Reference Range Interpretation Comments Mean Corpuscular Hemoglobin (test code = 785-6) 33.5 28-32 H [facility] HospitalMean Corpuscular Hemoglobin Concent 2017-06-19 07:48:00* Test Item Value Reference Range Interpretation Comments Mean Corpuscular Hemoglobin Concent (test code = 786-4) 34.1 31-35 [facility] HospitalRed Cell Distribution Dsqnp1337-28-33 07:48:00* Test Item Value Reference Range Interpretation Comments Red Cell Distribution Width (test code = 65297-7) 15.1 11.7 -14.4 H [facility] HospitalPlatelet Obwit7100-70-73 07:48:00* Test Item Value Reference Range Interpretation Comments Platelet Count (test code = 777-3) 46 140-360 LL Results called to SOILA JACK,RN at 0748 on 06/19/17 by Michael Whalen. RB OK.[facility] HospitalNeutrophils (%) (Auto)2017-06-19 07:48:00* Test Item Value Reference Range Interpretation Comments Neutrophils (%) (Auto) (test code = 73011-9) 48.0 38.7-80.0 [facility] HospitalLymphocytes (%) (Auto)2017-06-19 07:48:00 * Test Item Value Reference Range Interpretation Comments Lymphocytes (%) (Auto) (test code = 736-9) 27.0 18.0-39.1 [facility] HospitalMonocytes (%) (Auto)2017-06-19 07:48:00* Test Item Value Reference Range Interpretation Comments Monocytes (%) (Auto) (test code = 5905-5) 16.3 4.4-11.3 H [facility] HospitalEosinophils (%) (Auto)2017-06-19 07:48:00 * Test Item Value Reference Range Interpretation Comments Eosinophils (%) (Auto) (test code = 713-8) 7.9 0.0-6.0 H [facility] HospitalBasophils (%) (Auto)2017-06-19 07:48:00* Test Item Value Reference Range Interpretation Comments Basophils (%) (Auto) (test code = 706-2) 0.4 0.0-1.0 [facility] HospitalIM GRANULOCYTES %2017-06-19 07:48:00* Test Item Value Reference Range Interpretation Comments IM GRANULOCYTES % (test code = IM GRANULOCYTES %) 0.4 0.0- 1.0 [facility] HospitalNeutrophils # (Auto)2017-06-19 07:48:00* Test Item Value Reference Range Interpretation Comments Neutrophils # (Auto) (test code = 751-8) 1.2 2.1-6.9 L [facility] HospitalLymphocytes # (Auto)2017-06-19 07:48:00* Test Item Value Reference Range Interpretation Comments Lymphocytes # (Auto) (test code = 31088-5) 0.7 1.0-3.2 L [facility] HospitalMonocytes # (Auto)2017-06-19 07:48:00* Test Item Value Reference Range Interpretation Comments Monocytes # (Auto) (test code = 742-7) 0.4 0.2-0.8 [facility] HospitalEosinophils # (Auto)2017-06-19 07:48:00* Test Item Value Reference Range Interpretation Comments Eosinophils # (Auto) (test code = 711-2) 0.2 0.0-0.4 [facility] HospitalBasophils # (Auto)2017-06-19 07:48:00* Test Item Value Reference Range Interpretation Comments Basophils # (Auto) (test code = 704-7) 0.0 0.0-0.1 [facility] HospitalAbsolute Immature Granulocyte (auto 2017-06-19 07:48:00* Test Item Value Reference Range Interpretation Comments Absolute Immature Granulocyte (auto ([place] t code = Absolute Immature Granulocyte (auto) 0.01 0-0.1 [facility] HospitalDifferential Total Cells Counted 2017-06-16 09:31:00* Test Item Value Reference Range Interpretation Comments Differential Total Cells Counted (test code = Differen tial Total Cells Counted) 100 [facility] HospitalNeutrophils % (Manual)2017-06-16 09:31:00 * Test Item Value Reference Range Interpretation Comments Neutrophils % (Manual) (test code = 10145-8) 73 40-74 [facility] HospitalLymphocytes % (Manual)2017-06-16 09:31:00 * Test Item Value Reference Range Interpretation Comments Lymphocytes % (Manual) (test code = 737-7) 14 19-48 L [facility] HospitalMonocytes % (Manual)2017-06-16 09:31:00* Test Item Value Reference Range Interpretation Comments Monocytes % (Manual) (test code = 744-3) 2 3.4-9.0 L [facility] HospitalEosinophils % (Manual)2017-06-16 09:31:00 * Test Item Value Reference Range Interpretation Comments Eosinophils % (Manual) (test code = 714-6) 8 0-7 H [facility] HospitalBasophils % (Manual)2017-06-16 09:31:00* Test Item Value Reference Range Interpretation Comments Basophils % (Manual) (test code = 24941-1) 1 0-1.5 [facility] HospitalMetamyelocytes %2017-06-16 09:31:00* Test Item Value Reference Range Interpretation Comments Metamyelocytes % (test code = 740-1) 2 0-0 H [facility] HospitalVitamin B12 Ixful9760-93-44 07:59:00* Test Item Value Reference Range Interpretation Comments Vitamin B12 Level (test code = 99621-1) 887 213-816 H [facility] HospitalFolate2018-04-06 07:59:00* Test Item Value Reference Range Interpretation Comments Folate (test code = 2284-8) 10.3 7.0-15.4 [facility] HospitalFerritin2018-04-06 07:39:00* Test Item Value Reference Range Interpretation Comments Ferritin (test code = 2276-4) 220.60 21.81-274.66 [facility] HospitalIron Lhqgw5166-11-52 07:25:00* Test Item Value Reference Range Interpretation Comments Iron Level (test code = 2498-4) 102 65-175 [facility] HospitalTotal Iron Binding Osmsiqza8398-05-29 07:25:00* Test Item Value Reference Range Interpretation Comments Total Iron Binding Capacity (test code = 2500-7) 274 261-4 78 [facility] HospitalPercent Iron Qjybnbrjon8479-35-14 07:25:00* Test Item Value Reference Range Interpretation Comments Percent Iron Saturation (test code = 2502-3) 37 15-50 [facility] HospitalTransferrin2018-04-06 07:25:00* Test Item Value Reference Range Interpretation Comments Transferrin (test code = 3034-6) 196 174-364 [facility] HospitalDirect Dkiquscji8142-16-52 07:22:00* Test Item Value Reference Range Interpretation Comments Direct Bilirubin (test code = 51448-1) 2.0 0.0-0.5 H [facility] HospitalAmylase Yqlzc4886-20-25 07:22:00* Test Item Value Reference Range Interpretation Comments Amylase Level (test code = 1798-8) 65 25-125 [facility] HospitalLipase2018-04-06 07:22:00* Test Item Value Reference Range Interpretation Comments Lipase (test code = 3040-3) 16 8-78 [facility] HospitalPercent Reticulocyte Vlrmx4792-14-16 07:04:00* Test Item Value Reference Range Interpretation Comments Percent Reticulocyte Count (test code = 20801-1) 2.6 0.8-2 .2 H [facility] HospitalAmmonia2018-04-05 21:00:00* Test Item Value Reference Range Interpretation Comments Ammonia (test code = 31657-4) 58 31-123 [facility] HospitalBody Fluid Gosoxqfrbhh3392-19-54 18:25:00 * Test Item Value Reference Range Interpretation Comments Body Fluid Neutrophils (test code = 09726-3) 11 MESOTHELIAL CELLS SEEN, RESULTED "OTHER"[facility] Fluid Sdtbxvusdic4975-28-58 18:25:00* Test Item Value Reference Range Interpretation Comments Body Fluid Lymphocytes (test code = 09915110) 15 [facility] Yumiuvlbc1720-36-50 18:25:00* Test Item Value Reference Range Interpretation Comments Body Fluid Monocytes (test code = 18814-3) 64 [facility] Fluid Other Bwzvp1574-93-96 18:25:00 * Test Item Value Reference Range Interpretation Comments Body Fluid Other Cells (test code = 798178091) 10 [facility] Fluid Total Cells Bapfuzy1224-26-22 18:25:00* Test Item Value Reference Range Interpretation Comments Body Fluid Total Cells Counted (test code = 50095-3) 100 [facility] HospitalBody Fluid Xwcmijj6757-87-77 18:25:00* Test Item Value Reference Range Interpretation Comments Body Fluid Comment (test code = Body Fluid Comment) SEE COMMENT [facility] Camp[facility] Occult Xugbj4896-26-34 18:21:00* Test Item Value Reference Range Interpretation Comments Stool Occult Blood (test code = 2335-8) POSITIVE NEGATIVE H [facility] HospitalBody Fluid Ybvg5299-11-90 17:33:00* Test Item Value Reference Range Interpretation Comments Body Fluid Type (test code = 50217-0) PERITONEAL RIGHT ABD FLUIDMemorial Hermann [facility] HospitalBody Fluid Ofqod8286-54-62 17:33:00* Test Item Value Reference Range Interpretation Comments Body Fluid Color (test code = 6824-7) YELLOW [facility] HospitalBody Fluid Jhjcjaimdl5039-63-80 17:33:00 * Test Item Value Reference Range Interpretation Comments Body Fluid Appearance (test code = 9335-1) CLOUDY [facility] HospitalBody Fluid DZG2209-67-46 17:33:00* Test Item Value Reference Range Interpretation Comments Body Fluid WBC (test code = 6743-9) 163 [facility] HospitalBody Fluid GQF0426-81-56 17:33:00* Test Item Value Reference Range Interpretation Comments Body Fluid RBC (test code = 6741-3) 1519 [facility] HospitalUrine YXQ1979-45-80 16:17:00* Test Item Value Reference Range Interpretation Comments Urine WBC (test code = 5821-4) NONE 0-5 [facility] HospitalUrine OHH3348-21-40 16:17:00* Test Item Value Reference Range Interpretation Comments Urine RBC (test code = 77400-6) 11-20 0-5 H [facility] HospitalUrine Doflkyji2350-93-96 16:17:00* Test Item Value Reference Range Interpretation Comments Urine Bacteria (test code = 64301-2) NONE NONE [facility] HospitalUrine Epithelial Yuegi7519-27-17 16:17:00 * Test Item Value Reference Range Interpretation Comments Urine Epithelial Cells (test code = 22714-7) NONE NONE [facility] HospitalUrine Mpovt2711-62-82 15:54:00* Test Item Value Reference Range Interpretation Comments Urine Color (test code = 5778-6) ORANGE YELLOW H [facility] HospitalUrine Qjhojji2738-01-37 15:54:00* Test Item Value Reference Range Interpretation Comments Urine Clarity (test code = 50285-3) CLOUDY CLEAR H [facility] HospitalUrine Specific Pparxuh5824-75-33 15:54:00 * Test Item Value Reference Range Interpretation Comments Urine Specific [place] (test code = 5811-5) 1.010 1.010-1.02 5 [facility] HospitalUrine vJ6393-44-81 15:54:00* Test Item Value Reference Range Interpretation Comments Urine pH (test code = 22273-8) 7 5-7 [facility] HospitalUrine Leukocyte Hhfzwjap9659-82-32 15:54:00* Test Item Value Reference Range Interpretation Comments Urine Leukocyte Esterase (test code = 5799-2) NEGATIVE NEGATIVE [facility] HospitalUrine Ipnbkjj9430-35-85 15:54:00* Test Item Value Reference Range Interpretation Comments Urine Nitrite (test code = 46535-9) NEGATIVE NEGATIVE [facility] HospitalUrine Efuysnq5356-38-06 15:54:00* Test Item Value Reference Range Interpretation Comments Urine Protein (test code = 5804-0) 1+ NEGATIVE H [facility] HospitalUrine Glucose (UA)2017-06-15 15:54:00* Test Item Value Reference Range Interpretation Comments Urine Glucose (UA) (test code = 2349-9) NEGATIVE NEGATIVE [facility] HospitalUrine Nbzreoa5872-21-51 15:54:00* Test Item Value Reference Range Interpretation Comments Urine Ketones (test code = 17182-8) TRACE NEGATIVE H [facility] HospitalUrine Wguzbsfesxqe3200-41-47 15:54:00* Test Item Value Reference Range Interpretation Comments Urine Urobilinogen (test code = 63374-5) 8 0.2-1 H [facility] HospitalUrine Pidcsktde8240-34-49 15:54:00* Test Item Value Reference Range Interpretation Comments Urine Bilirubin (test code = 1978-6) 2+ NEGATIVE H Confirmatory test currently unavailable. False positive results may occur.[facility] HospitalUrine Npqzc3306-51-68 15:54:00* Test Item Value Reference Range Interpretation Comments Urine Blood (test code = 03420-8) 2+ NEGATIVE H [facility] HospitalUS [facility]IVER [facility] [address] [place] [address] Patient Name: JOCELIN CORREA MR #: [id number] : 1970 Age/Sex: 47/M Req #: [id number] Adm Physician: ROME HOPPER MD Ordered by: AMARA GUTHRIE MD Report #: [id number] Location: MED/SURG Room/Bed: [facility] Procedure: [id number] US/US LIVER Exam Date: 06/20/17 Exam Time: [...] renal d isease. Signed by: Dr. Diana Gnozalez MD on 06/20/2017 11:33 AM Dictated By: DIANA GONZALEZ MD 1137 Transcribed By: ZAHEER on 06/20/17 1133 COPY TO: AMARA GUTHRIE MD CT ABDOMEN/PELVIS W [facility] [address] [address] Patient Name: JOCELIN CORREA MR #: [id number] : 1970 Age/Sex: 47/M Req #: [id number] Adm Physician: Ordered by: EZ MANDUJANO MD Report #: [id number] Location: ER Room/Bed: Procedure: [id number] CT/CT ABDOMEN/PELVIS W Exam Date: Exam Time: REPORT STATUS: Signed AR OCEDURE: CT ABDOMEN AND PELVIS WITH CONTRAST [...] 2. Large volume ascites. Given fever, con spiral binder correlation for SBP. 3. Splenomegaly likely related to portal hypertens ion. Dictated by: Deandre Davis M.D. on 06/15/2017 at 14:50 Electronically approved by: Deandre Davis M.D. on 06/15/2017 at 14:50 Dictated By: DEANDRE DAVIS MD 49 Transcribed By: MARCO on 06/15/17 145 COPY TO: EZ MANDUJANO MD US GUIDED PARACENTESIS [place] [address] Patient Name: JOCELIN CORREA MR #: [id number] : 1970 Age/Sex: 47/M Req #: [id number] Adm Physician: ROME HOPPER MD Ordered by: JESUS MARKS GOVERNMENT CLERK Report #: [id number] Location: [facility] Room/Bed: [place] [address] Procedure: [id number] US /US GUIDED PARACENTESIS Exam Date: 06/15/17 [...]
[2019-08-14] MEDS: CEFTRIAXONE SOD 1 GM/NS 50 ML 50 ML IV SCH ×2 (11:07→21:26)
[2019-08-14] MEDS: MORPHINE SULFATE 2 MG/ML SYR 1ML IV PRN ×2 (11:07→19:37)
[2019-08-14] MEDS ORDERED: LORAZEPAM INJ 2 MG/ML VIAL IV PRN (15:30)
[2019-08-14] MEDS ORDERED: POTASSIUM CHLORIDE 20MEQ/100ML 300 ML IV ONE ×2 (15:30→19:15)
[2019-08-14] MEDS ORDERED: HYDRALAZINE HCL 20 MG/ML VIAL IV PRN (16:00)
[2019-08-14] MEDS ORDERED: CHLORDIAZEPOXIDE HCL 25 MG CAP PO SCH (18:00)
[2019-08-14 19:00] VITALS: BP 119/71
--- NOTE | 2019-08-14 19:09 | NUR ---
AWAKE AND ALERT. ACYANOTIC. RESTING IN BED. NO DISTRESS NOTED. CALL LIGHT IN REACH. SIDE RAILS UP X2. BED LOW. ARRIVED TO UNIT AT APPROXIMATELY 1840.
[2019-08-14] MEDS ORDERED: SODIUM CHLORIDE 0.9% 500ML 500 ML ONE (19:18)
[2019-08-14] MEDS: CHLORDIAZEPOXIDE HCL 25 MG CAP PO SCH (19:34)
[2019-08-14] MEDS: PANTOPRAZOLE 40 MG 10ML VIAL IV SCH (19:34)
[2019-08-14] MEDS: LACTULOSE SYRUP 20 GM/30 ML UDC PO SCH (19:34)
[2019-08-14 20:06] VITALS: BP 119/71
[2019-08-14 21:00] VITALS: BP 119/71
[2019-08-14] MEDS: FUROSEMIDE INJ 10 MG/ML 4 ML VIAL IV SCH (21:26)
[2019-08-15] VITALS (8 sets, daily range): BP systolic 118–143; BP diastolic 71–97
[2019-08-15] MEDS: CHLORDIAZEPOXIDE HCL 25 MG CAP PO SCH ×4 (00:13→17:28)
[2019-08-15] MEDS: MORPHINE SULFATE 2 MG/ML SYR 1ML IV PRN ×3 (00:14→07:59)
--- NOTE | 2019-08-15 03:12 | Consultation ---
DATE OF CONSULTATION: 08/14/2019 HISTORY OF PRESENT ILLNESS: This is a 49-year-old known to me, who has a history of alcohol abuse and now presented to the hospital apparently because of abdominal pain, some nausea, and vomiting. Pain mainly is in lower abdominal area. The patient had a CAT scan of abdomen and pelvis on admission, which showed evidence of cirrhosis with portal hypertension, splenomegaly, small volume of ascites. His lab shows pancytopenia with WBC of 3.66, hemoglobin 8.4, and platelet count 41978. He drinks alcohol recently before he came into the hospital. PAST MEDICAL PROBLEM: Significant for history of cirrhosis with alcohol abuse. MEDICATIONS: On admission include Lasix, hydralazine, ondansetron, pantoprazole. ALLERGIES: NONE. SOCIAL HISTORY: Denies any alcohol abuse. FAMILY HISTORY: Noncontributory. REVIEW OF SYSTEMS: Denies any chest pain at this point. Denies any shortness of breath. Denies any dysphagia or odynophagia. Denies any dysuria, hematuria, or any kind of syncopal episodes. PHYSICAL EXAMINATION: GENERAL: The patient is awake, lying in bed, appears to be stable. VITAL SIGNS: Afebrile currently. HEAD, EYES, EARS, NOSE, AND THROAT: Normocephalic, atraumatic. Sclerae are icteric. NECK: Supple. HEART: Rhythm is regular. LUNGS: Clear. ABDOMEN: Soft. There is some tenderness in the lower abdomen area. There is no rebound or mass. EXTREMITIES: No clubbing or cyanosis. LABORATORY VALUES: WBC of 3.66, hemoglobin 8.4, hematocrit of 27.8, MCV 72.2, [place] [address]. Potassium 2.8. BUN 8, creatinine of 1.38, bilirubin 3.1. AST of 72, ALT of 22, ammonia level 144. Amylase and lipase are normal. CAT scan of abdomen and pelvis shows again cirrhosis with portal hypertension, splenomegaly, and small volume ascites. IMPRESSION: 1. Recurrent nausea and vomiting. 2. Cirrhosis of portal hypertension. 3. Pancytopenia. RECOMMENDATIONS: Continue on current care for possible urinary tract infection at this point. Follow labs clinically. Ian Cook MD DHHiro/MODJulius /[id number] cc: MD Angus Franco III, MD
[2019-08-15 05:40] LABS: BASOPHILS % 1.1 % (0.0-1.0); EOSINOPHILS # (AUTO) 0.2 (0.0-0.4); EOSINOPHILS % 8.7 % (0.0-6.0); HEMATOCRIT 26.2 % (38.2-49.6); HEMOGLOBIN 7.5 g/dL (14.0-18.0); LYMPHOCYTES # (AUTO) 0.4 (1.0-3.2); MEAN CORPUSCULAR HEMOGLOBIN 21.5 pg (28-32); MEAN CORPUSCULAR HGB CONC 28.6 g/dL (31-35); MEAN CORPUSCULAR VOLUME 75.1 fL (81-99); MONOCYTES # (AUTO) 0.5 (0.2-0.8); MONOCYTES % 16.4 % (4.4-11.3); NEUTROPHILS # (AUTO) 1.6 (2.1-6.9); NEUTROPHILS % 57.4 % (38.7-80.0); RED BLOOD COUNT 3.49 x10e6/uL (4.3-5.7); RED CELL DISTRIBUTION WIDTH 20.1 % (11.7-14.4)
[2019-08-15 05:55] LABS: PLATELET COUNT 26 x10e3/uL (140-360)
[2019-08-15 05:56] LABS: ALANINE AMINOTRANSFERASE 21 IU/L (0-55); ALBUMIN 2.6 g/dL (3.5-5.0); ALBUMIN/GLOBULIN RATIO 0.5 (0.8-2.0); ALKALINE PHOSPHATASE 77 IU/L (40-150); BLOOD UREA NITROGEN 8 mg/dL (7-26); BUN/CREATININE RATIO 8 (6-25); CALCIUM 7.9 mg/dL (8.4-10.2); CARBON DIOXIDE 23 mmol/L (22-29); CHLORIDE 105 mmol/L (98-107); CREATININE, SERUM 1.03 mg/dL (0.72-1.25); EST GLOMERULAR FILTRATION RATE > 60 ML/MIN (60-); GLUCOSE 89 mg/dL (74-118); SODIUM 136 mmol/L (136-145)
[2019-08-15 06:11] LABS: CREATINE KINASE 253 IU/L (30-200); LIPASE 29 U/L (8-78)
[2019-08-15 07:50] LABS: ANISOCYTOSIS MODERATE; HYPOCHROMASIA MODERATE
[2019-08-15 07:51] LABS: OVALOCYTES MODERATE; RBC MORPHOLOGY COMMENT ABNORMAL
[2019-08-15 07:52] LABS: PLATELET ESTIMATE MARKEDLY DECREASED; PLATELET MORPHOLOGY COMMENT NORMAL; POLYCHROMASIA FEW
[2019-08-15] MEDS: FUROSEMIDE INJ 10 MG/ML 4 ML VIAL IV SCH ×2 (08:01→20:43)
[2019-08-15] MEDS: PANTOPRAZOLE 40 MG 10ML VIAL IV SCH ×2 (08:01→17:28)
[2019-08-15] MEDS: LACTULOSE SYRUP 20 GM/30 ML UDC PO SCH (08:01)
--- NOTE | 2019-08-15 09:37 | NUR ---
AAOX3. ACYANOTIC. NO DISTRESS NOTED. WOUND CARE NURSE AT BEDSIDE PLACING ALLEVYN PAD OVER BILATERAL LOWER EXTREMITIES
[2019-08-15] MEDS: CEFTRIAXONE SOD 1 GM/NS 50 ML 50 ML IV SCH ×2 (11:08→20:43)
[2019-08-15] MEDS ORDERED: MORPHINE SULFATE 2 MG/ML SYR 1ML IV PRN ×2 (11:15→19:00)
--- NOTE | 2019-08-15 12:46 | NUR ---
WOUND CARE CONSULT FOR 49 YO MALE HX OF CIRRHOSIS,ABD PAIN JOHN 21 ON CONSERVATIVE PUP STATUS AND INTERVENTIONS AND VISCO MATTRESS LABS: WBC-2.75 HGB_7.5 GLUCOSE-89 SKIN ASSESSMENT COMPLETE PATIENT PRESENTS WITH MULTIPLE EXCORIATED AREAS R/T SCRATCHING SECONDARY TO CIRRHOSIS RECOMMENDATIONS: NURSING TO CONTINUE TO MAINTAIN CONSERVATIVE PUP STATUS AND INTERVENTIONS AND VISCO MATTRESS NURSING TO CONTINUE TO ASSIST PATIENT OUT OF BED FOR MEALS AND MUCH TOLERATED NURSING TO CONTINUE TO ASSIST PATIENT NEEDED WITH MEALS AND NUTRITIONAL SUPPLEMENTS TO ENSURE PROPER REQUIREMENTS FOR HEALING NURSING TO CONTINUE TO OFFLOAD FEET AND HEELS NEEDED WITH PILLOW SUSPENSION WHEN IN BED NURSING TO CLEAN BILATERAL HIPS AND LOWER LEGS WITH MILD CLINICAL RADIOLOGIST DAILY AND APPLY VENELEX OINTMENT AND ALLEVYN FOAM DRESSING TO HIPS TO PREVENT SCRATCHING AT NIGHT Addendum: 08/15/19 at 1253 by Jonathan Marx RN Amended: Links added.
[2019-08-15] MEDS: BALSAM PERU/CASTOR OIL 60 GM OINT...G. TP SCH (17:28)
--- NOTE | 2019-08-15 18:16 | NUR ---
Nutrition Screen Note RD Recommendation for Physician: - Advance diet as tolerated to cardiac diet - Consider oral nutrition supplement if PO <50% on regular diet Plan of Care: RD following, monitoring for tolerance and adequacy Nutrition reason for involvement: Nutrition Risk Trigger MST Primary Diagnose(s): cirrhosis PMH: cirrhosis with alcohol abuse Ht: 69in Wt: 207.56lb BMI: 30.7kg/m2 IBW: 160lb +/- 10% RD Assessment: (08/14) Chart reviewed. Labs and meds reviewed. 49yo M, who was admitted for abdominal pain, nausea and vomiting. Visited pt in the room. Pt reported of nausea and not being able to hold anything down. 50% PO intake noted on clear liquid diet. Meds were given with some improvement. Pt reported of drinking some alcohol prior to admission. No chewing or swallowing issue reported. Some weight gain noted. Will continue to follow. Current Diet: clear liquid diet Malnutrition Evaluation (08/15/2019) The patient does not meet criteria for a specified degree of malnutrition at this time. Will re-evaluate at follow-up as appropriate. Diet Education Needs Assessment: Diet education not indicated. not appropriate at this time Nutrition Care Level: low Signed: Amaris Cui, MS, RD, LD
[2019-08-15] MEDS ORDERED: SODIUM CHLORIDE 0.9% 250ML 250 ML ONE (19:48)
[2019-08-15] MEDS: ACETAMINOPHEN/CODEINE 300MG - 30MG TAB PO PRN (20:30)
[2019-08-16] VITALS (8 sets, daily range): BP systolic 102–124; BP diastolic 67–79
[2019-08-16] MEDS: CHLORDIAZEPOXIDE HCL 25 MG CAP PO SCH ×4 (00:25→18:19)
[2019-08-16] MEDS: ACETAMINOPHEN/CODEINE 300MG - 30MG TAB PO PRN (05:17)
[2019-08-16 05:55] LABS: BASOPHILS % 0.8 % (0.0-1.0); EOSINOPHILS # (AUTO) 0.3 (0.0-0.4); HEMATOCRIT 24.3 % (38.2-49.6); LYMPHOCYTES # (AUTO) 0.5 (1.0-3.2); LYMPHOCYTES % 17.9 % (18.0-39.1); MEAN CORPUSCULAR HGB CONC 28.8 g/dL (31-35); MEAN CORPUSCULAR VOLUME 76.4 fL (81-99); MONOCYTES # (AUTO) 0.5 (0.2-0.8); MONOCYTES % 18.3 % (4.4-11.3); NEUTROPHILS # (AUTO) 1.3 (2.1-6.9); NEUTROPHILS % 52.6 % (38.7-80.0); PLATELET COUNT 50 x10e3/uL (140-360); RED BLOOD COUNT 3.18 x10e6/uL (4.3-5.7)
[2019-08-16 06:35] LABS: ALANINE AMINOTRANSFERASE 20 IU/L (0-55); ALBUMIN 2.7 g/dL (3.5-5.0); ALBUMIN/GLOBULIN RATIO 0.5 (0.8-2.0); ALKALINE PHOSPHATASE 74 IU/L (40-150); ANION GAP 10.3 mmol/L (8-16); BLOOD UREA NITROGEN 11 mg/dL (7-26); BUN/CREATININE RATIO 11 (6-25); CARBON DIOXIDE 26 mmol/L (22-29); CHLORIDE 97 mmol/L (98-107); CREATININE, SERUM 1.02 mg/dL (0.72-1.25); EST GLOMERULAR FILTRATION RATE > 60 ML/MIN (60-); GLUCOSE 83 mg/dL (74-118); LIPASE 24 U/L (8-78); POTASSIUM 3.3 mmol/L (3.5-5.1); SODIUM 130 mmol/L (136-145)
[2019-08-16] MEDS ORDERED: SODIUM CHLORIDE 0.9% 250ML 250 ML IV ONE (06:55)
[2019-08-16] MEDS: PANTOPRAZOLE 40 MG 10ML VIAL IV SCH ×2 (10:13→18:19)
[2019-08-16] MEDS: FUROSEMIDE INJ 10 MG/ML 4 ML VIAL IV SCH ×2 (10:13→21:55)
[2019-08-16] MEDS: LACTULOSE SYRUP 20 GM/30 ML UDC PO SCH (10:15)
[2019-08-16] MEDS: CEFTRIAXONE SOD 1 GM/NS 50 ML 50 ML IV SCH ×2 (10:57→21:56)
[2019-08-16 12:28] LABS: HYPOCHROMASIA MODERATE; PLATELET ESTIMATE MARKEDLY DECREASED; PLATELET MORPHOLOGY COMMENT NORMAL
[2019-08-16] MEDS ORDERED: POTASSIUM CHLORIDE 20 MEQ TAB CR PO ONE (12:30)
[2019-08-16] MEDS ORDERED: SPIRONOLACTONE25 MG PO (13:12)
[2019-08-16] MEDS ORDERED: LACTULOSE20 GM/30 M PO (13:12)
[2019-08-16] MEDS ORDERED: PANTOPRAZOLE SO40 MG PO (13:12)
[2019-08-16] MEDS ORDERED: LASIX40 MG PO (13:12)
[2019-08-16] MEDS: BALSAM PERU/CASTOR OIL 60 GM OINT...G. TP SCH (13:56)
[2019-08-16] MEDS ORDERED: SODIUM CHLORIDE 0.9% 250ML 250 ML ONE ×2 (14:17→20:20)
[2019-08-16] MEDS ORDERED: LEVAQUIN500 MG PO (17:45)
--- NOTE | 2019-08-16 19:18 | NUR ---
REPORT GIVEN TO DAILY BLACKWELL, DAILY BLACKWELL AGRRED TO GIVE THE SECOND UNIT OF PRBCs PRIOR TO DISCHARGE.
--- NOTE | 2019-08-16 20:45 | NUR ---
BLOOD TRANSFUSION INITIATED. VITAL SIGN STABLE AT THIS TIME. VERIFIED WITH 2ND RN. CONTINUE TO MONITOR CLOSELY
--- NOTE | 2019-08-16 23:20 | NUR ---
BLOOD TRANSFUSION COMPLETED. DISCHARGED PATIENT HOME PER MD ORDER WITH ALL BELONGINGS AND PRESCRIPTION. VITAL SIGN STABLE AT THIS TIME.
--- NOTE | 2019-08-19 11:28 | Discharge Summary ---
ADMISSION DIAGNOSES: 1. Urinary tract infection with sepsis, present on admission. 2. Cirrhosis secondary to alcohol abuse. 3. Hepatic encephalopathy. 4. Rhabdomyolysis. 5. Hypokalemia. 6. EtOH abuse. 7. Transaminitis. 8. Nausea. 9. Vomiting. 10. Thrombocytopenia. DISCHARGE DIAGNOSES: 1. Urinary tract infection with sepsis, present on admission. 2. Cirrhosis secondary to alcohol abuse. 3. Hepatic encephalopathy. 4. Rhabdomyolysis. 5. Hypokalemia. 6. EtOH abuse. 7. Transaminitis. 8. Nausea. 9. Vomiting. 10. Thrombocytopenia. 11. Rule out deep vein thrombosis. 12. Rule out gastrointestinal bleed. 13. Enterococcus urinary tract infection, present on admission. HISTORY: Cirrhosis secondary to alcohol abuse. SURGICAL HISTORY: Lysis of adhesions. FAMILY HISTORY: The patient's mom, dad, and brother have diabetes. The patient's uncle and grandmother have cancer. SOCIAL HISTORY: History of alcohol abuse. HOSPITAL COURSE: A 49-year-old male, admits with complaints of constant cramping abdominal pain with associated nausea and vomiting that began 3 days ago. He denies diarrhea and fever. He used to have a drinking problem, but quit three years ago. Now, he says he had 3-4 glasses of whiskey the night of admission. On admission, CT of the abdomen and pelvis showed cirrhosis with portal hypertension, small volume ascites. CT of the brain was negative. Urine drug screen came back with an alcohol level of 301.6. Urine culture came back positive for Enterococcus. The patient was discharged on Levaquin. GI was consulted due to the nausea and vomiting. Stool for blood came back negative. After about two days, the patient is tolerating p.o. and is able to discharge home per GI recommendation. Prior to discharge, the patient's hemoglobin dropped to 7, so 2 units of PRBCs were transfused. Due to lower extremity swelling, a venous Doppler was ordered, which was negative for DVT. The patient will discharge home with new prescriptions for Protonix, Levaquin, and lactulose daily. He will follow up with primary care in 1 to 2 weeks. The patient understands discharge instructions and agrees to plan. Dictated by Shani Malcolm NP MD YAO Franco/MODL /[id number]
== END 2019-08-16 23:20 | disposition home or self-care (01) | DRG 872 ==
LOC: ER 06:12 → ERHOLD 10:12 → MED/SURG2 18:56 → OBSVTOIN 08-15 11:21
PROVIDERS: ADMIT Internal Medicine; ATTEND Internal Medicine
PROC: 30233R1 Transfusion of Nonautologous Platelets into Peripheral Vein, Percutaneous Approach (ICD-10-PCS; 2019-08-15)
PROC: 30233N1 Transfusion of Nonautologous Red Blood Cells into Peripheral Vein, Percutaneous Approach (ICD-10-PCS; principal; 2019-08-16)
DX: A41.81 Sepsis due to Enterococcus (principal); N39.0 Urinary tract infection, site not specified; M62.82 Rhabdomyolysis; K76.6 Portal hypertension; D61.818 Other pancytopenia; K72.90 Hepatic failure, unspecified without coma; E87.6 Hypokalemia; D69.6 Thrombocytopenia, unspecified; F10.20 Alcohol dependence, uncomplicated; R74.0 Nonspecific elevation of levels of transaminase and lactic acid dehydrogenase [LDH]; K70.31 Alcoholic cirrhosis of liver with ascites; R16.1 Splenomegaly, not elsewhere classified
CPT/HCPCS: 36415; 70450; 74177; 80053; 80307; 80320; 80329; 81001; 82140; 82150; 82270; 82550; 82553; 83690; 83735; 84484; 85025; 86850; 86900; 86920; 87086; 87186; 87635; 93005; 93970; 99251; 99284; G0378; J0696; J1940; J2270; J2405; J3411; J3475; J3480; J7030; J7040; J7050; P9016; P9034; Q9967

== ENCOUNTER 2019-08-23 11:47 | Inpatient (IN) | payer MEDICARE, OTHER ==
[~2019-08-23] VITALS: Ht 175.3 cm; Wt 101.2 kg
[~2019-08-23 11:47] MED LIST changes: +LACTULOSE20 GM/30 M PO; +LEVAQUIN500 MG PO; +PANTOPRAZOLE SO40 MG PO
--- OUTSIDE RECORDS SUMMARY | 2019-08-23 11:51 | XMS REPORT | Continuity of Care Document ---
Author Author [facility] t Organization [facility] Address [address] [place] [address] Phone Unavailable Care Team Providers Care Loan Servicing Specialist Name Role Phone Jennifer GARRISON III PCP Irma WANG Attphys Unavailable Puneet Banks Attphys Anjum, Lees Nigel Attphys Bill Berger Attphys Eli Delgado Attphys [phone] Casi Justice Attphys ROME HOPPER Attphys Unavailable Anjum, Lees Nigel Admphys Tamika Guzman Admphys ROME HOPPER Admphys Unavailable Payers Payer Name Policy Type Policy Number Effective Date Expiration Date Greg kidd [facility] Medicare Complete [id number] 2019 00:00:00 [facility] Problems Condition Name Condition Details Condition Category Status Onset Date Resolution Date Last Treatment Date Treating Clinician Comments Source ABDOMINAL PAIN ABDO YOLIS PAIN Active 02/26/2019 [facility] Diagnosis Active 2019-02-26 00:00:00 2019-02-26 16:11:00 [facility] ABD PAIN ABD PAIN Active 08/24/2018 [facility] Diagnosis Active 2018-08-24 00:00:00 2018-08-24 21:51:00 [facility] BLOODY STOOL/STOMACH PAIN BLOO DY STOOL/STOMACH PAIN Active 06/01/2018 [facility] Diagnosis Active 2018-06-01 00:00: 00 2018-06-01 10:32:00 [facility] GIB, LIVER CIRRHOSIS, ABD PAIN, PORTAL V GIB, LIVER CIRRHOSIS, ABD PAIN, PORTAL V Active 06/01/2018 [facility] Diagnosis Active 2018-06-01 00:00:00 2018-06-06 16:57:00 [facility] HEADACHE HEAD ACHE Active 04/18/2018 [facility] Diagnosis Active 2018-04-18 00:00:00 2019-07-01 13:22:00 [facility] OTHER OTHE R Active 09/16/2017 [facility] Diagnosis Active 2017-09-16 00:00:00 2017-11-16 10:48:00 [facility] Abdominal pain Abdominal pain Problem Active [facility] Alcoholic cirrhosis of liver with ascites Alcoholic ci rrhosis of liver with ascites Problem Active [facility] Fever Fever Problem Active [facility] Headache Head ache 11/05/2018 [facility] Problem 2018-11-05 16:44:23 [facility] Liver disease, unspecified Tonya er disease, unspecified 11/05/2018 [facility] Problem 2018-11-05 16:44:2 3 [facility] Chest pain, unspecified Ches t pain, unspecified 11/05/2018 [facility] Problem 2018-11-05 16:44:23 [facility] GASTROINTESTINAL HEMORRHAGE, UNSPECIFIED GASTROINTESTINAL HEMORRHAGE, UNSPECIFIED Active [facility] Diagnosis Active 2018-06-06 16:57:00 Nash Dos Santos UNSPECIFIED CIRRHOSIS OF LIVER UNSPECIFIED CIRRHOSIS OF LIVER Active [facility] Diagnosis Active 201 11-13-26 16:57:00 [facility] UNSPECIFIED ABDOMINAL PAIN UNS PECIFIED ABDOMINAL PAIN Active [facility] Diagnosis Active 2018-06-06 16:57:0 0 Tahira Dos Santos Encounter for examination and observation following ot her accident Encounter for examination and observation following other accident 04/24/2018 11/05/2018 [facility] Problem 2018-04-24 05:08:12 2018 16:44:23 2018-11-05 16:44:23 Tahira Dos Santos Unspecified abdominal pain Uns pecified abdominal pain 09/16/2017 09/19/2017 [facility] Problem 2017-09-16 05:00 :00 2017-09-19 01:50:07 2017-09-19 01:50:07 Tahira lopez Allergies, Adverse Reactions, Alerts Allergy Name Allergy Type Status Severity Reaction(s) Onset Date Inacti ve Date Treating Clinician Comments Source No Known Allergies DA Active U 2019-01-15 00:00:00 [facility] No Known Allergies DA Active U 2018-05-05 00:00:00 [facility] No Known Allergies DA Active U 2018-04-09 00:00:00 [facility] No Known Allergies DA Active U 2017-12-18 00:00:00 [facility] No Known Allergies DA Active U 2017-08-03 00:00:00 [facility] No Known Allergies DA Active U 2017-06-03 00:00:00 [facility] No Known Medication Allergies No Known Medication Allergies Active Tahira Dos Santos Social History Social Habit Start Date Stop Date Quantity Comments Source Social History 2018-06-02 00:41:01 2018-06-02 00:41:01 Tahira Dos Santos Sex Assigned At 1970 00:00:00 1970 00:00:00 Male [facility] Medications Ordered Medication Name Filled Medication Name Start Date Stop Da te Current Medication? Ordering Clinician Indication Dosage Frequency Signature (SIG) Comments Components Source Levofloxacin (Levaquin) 500 Mg TABLET Levofloxacin (Levaquin ) 500 Mg TABLET 2019-08-16 17:45:00 Yes 500 Daily [facility] Furosemide (Lasix) 40 Mg TABLET Furosemide (Lasix) 40 Mg TAB LET 2019-08-16 13:12:00 Yes 40 Daily [facility] Lactulose Lactulose 2019-08-16 13:12:00 Yes 20 Daily [facility] Pantoprazole Sodium (Protonix) 40 Mg TABLET. Pantopr azole Sodium (Protonix) 40 Mg TABLET. 2019-08-16 13:12:00 Yes 40 Daily@0600 [facility] Spironolactone Spironolactone 2019-08-16 13:12:00 Yes 50 Daily [facility] Saline Flush 0.9% 2019-02-26 17:34:00 No Notes: Same as: BD Posiflush Sterile [facility] Saline Flush 0.9% 2018-08-25 02:09:00 No Notes: (Same as: BD Posiflush) [facility] Rocephin 2018-08-04 10:01:00 No 1 gm, Route: IVPB, Drug form: PDR/INJ, ONCE, Dosing Weight 90.909, kg, Priority: STAT, Start date: 08/04/18 5:01:00 CDT, Stop date: 08/04/18 5:01:00 CDT, ABX Indication: Intra-abdominal Infection [facility] Fentanyl 2018-08-04 06:35:00 No 50 microgram, Route: IVP, ONCE, Dosing Weight 90.909, kg, Priority: STAT, Start date: 08/04/18 1:35:00 CDT, Stop date: 08/04/18 1:35:00 CDT [facility] t[facility]anie Zofran 2018-08-04 06:34:00 No 4 mg, Route: IVP, Drug form: INJ, ONCE, Dosing Weight 90.909, kg, Priority: STAT, Start date: 08/04/18 1:34:00 CDT, Stop date: 08/04/18 1:34:00 CDT [facility] [place] Fentanyl 2018-08-04 06:28:00 No 25 microgram, Route: IVP, ONCE, Dosing Weight 90.909, kg, Priority: STAT, Start date: 08/04/18 1:28:00 CDT, Stop date: 08/04/18 1:28:00 CDT [facility] t[facility]anie Octreotide 2018-08-04 06:26:00 No 50 microgram, Route: IV, ONCE, Dosing Weight 90.909, kg, Start date: 08/04/18 1:26:00 CDT, Stop date: 08/04/18 1:26:[address] [facility] pantoprazole 2018-08-04 06:26:00 No 80 mg, Route: IVP, ONCE, Dosing Weight 90.909, kg, Priority: STAT, Start date: 08/04/18 1:26:00 CDT, Stop date: 08/04/18 1:26:00 CDT Tahira Dos Santos Sodium Chloride 0.9% (Bolus) IV 2018-08-04 06:26:00 No 1,000 mL, Infuse Over: 1 hr, Route: IV, ONCE, Priority: STAT, Dosing Weight 90.909 kg, Start date: 08/04/18 1:26:00 CDT, Stop date: 08/04/18 1:26:00 CDT Tahira Dos Santos Spironolactone 2018-06-06 14:00:00 No Notes: (Same As: Aldactone) [facility] Furosemide 40 MG Oral Tablet 2018-06-06 14:00:00 No Notes: (Same as: Lasix) May cause GI upset. Give with food or milk. [facility] Folic Acid 2018-06-06 14:00:00 No Notes: (S faheem as: Folvite) [facility] riFAXimin 550 mg oral tablet 2018-06-05 22:30:00 Yes 550 mg = 1 tab, PO, Q12H, # 60 tab, 0 Refill(s), Pharmacy: [facility]/pharmacy #[id number] [facility] Ondansetron 4 MG Oral Tablet [Zofran] 2018-06-05 22:21:00 Y es 4 mg = 1 tab, PO, Q8H, PRN Nausea/vomiting, # 15 tab, 0 Refill(s), Pharmacy: [facility]/pharmacy #[id number] [facility] Lactulose 667 MG/ML Oral Solution 2018-06-05 22:21:00 Yes 10 gm = 15 mL, PO, TID, PRN Titrate to 2-3 soft bowel movements a day, X 30 day, # 900 mL, 0 Refill(s), Pharmacy: [facility]/pharmacy #[id number] [facility] pantoprazole 40 mg oral enteric coated tablet 2018-06-05 22:21:0 0 Yes 40 mg = 1 tab, PO, Before Breakfast, # 3 0 tab, 0 Refill(s), Pharmacy: [facility]/pharmacy #[id number] [facility] tramadol hydrochloride 50 MG Oral Tablet 2018-06-05 16:57:00 Yes 50 mg = 1 tab, PO, Q8H, PRN Pain Score 7-10, X 7 day, # 20 tab, 0 Refill(s) Tahira Dos Santos Ferrlecit 2018-06-05 14:00:00 No Notes: (sodium ferric gluconate complex (elemental iron) 62.5 mg/5 ml INJ) "Limited stability. Use immediately after admixture" (Same as: Ferrlecit) MEDICATION WASTE Product Size: 62.5 mg Product Wasted: ___ mg Gigigerber Friedman Flagyl 2018-06-05 02:00:00 No Notes: (Same as: Flagyl) Take with food/ avoid alcohol [facility] Golytely 2018-06-04 19:47:00 No Notes: (Сергей e as: Nulytely) [facility] Bisacodyl 2018-06-04 19:47:00 No Notes: (Same As: Dulcolax, Correctol) (Do Not Crush) "Do Not Crush" [facility] Hydromorphone 2018-06-04 17:43:00 No Notes: (Same as: Dilaudid) [facility] Lactulose 667 MG/ML Oral Solution 2018-06-04 02:00:00 No Notes: (Same as:Chronulac) [facility] rifaximin 2018-06-04 02:00:00 No Notes: Сергей serafin as: Xifaxan [facility] Lactulose 667 MG/ML Oral Solution 2018-06-03 14:00:00 No Notes: (Same as:Chronulac) [facility] pantoprazole 2018-06-03 12:30:00 No Notes: Tablet should not be chewed or crushed. (Same as: Protonix) [facility] lidocaine (ANES) 2018-06-02 19:57:00 No Route: IV, Drug form: INJ, ONCE, Stop date: 06/02/18 14:57:[address] [facility] [place] [facility] ([facility]ES) 2018-06-02 19:57:00 No Route: IV, Drug form: INJ, ONCE, Stop date: 06/02/18 14:57:00 CDT Rajendra Dos Santos Sodium Chloride 0.9% IV 1,000 mL 2018-06-02 19:36:00 No 1,000 mL, Rate: 25 ml/hr, Infuse over: 40 hr, Route: IV, Dosing Weight 87.091 kg, Total Volume: 1,000, Start date: 06/02/18 14:36:00 CDT, Duration: 30 day, Stop date: 07/02/18 14:35:00 CDT, 2.08, m2 [facility] Rocephin 2018-06-02 06:00:00 No 1 gm, Route: IVPB, Drug form: PDR/INJ, [id number], Dosing Weight 87.091, kg, Start date: 06/02/18 1:00:00 CDT, Duration: 5 day, Stop date: 06/06/18 1:00:00 CDT, ABX Indication: Intra- abdominal Infection [facility] potassium chloride 2018-06-02 05:00:00 No Notes: Infuse at a rate of 10 mEq/hr. (Same as: KCL) [facility] Potassium Chloride 2018-06-02 04:04:00 No 20 mEq, Route: IVPB, ONCE, Dosing Weight 87.091, kg, Start date: 06/01/18 23:04:00 CDT, Stop date: 06/01/18 23:04:00 CDT [facility] Ceftriaxone 2018-06-02 04:00:00 No Notes: (Same As: Rocephin). Use with 100 mL NS and infuse over 30 min MEDICATION WASTE Product Size: 1000 mg Product Wasted: ___ mg [facility] octreotide 1,250 microgram + Sodium Chloride 0.9% IV 248.75 mL 2018-06-02 03:26:00 No 248.75 mL, Rate: 10 ml/hr, Infuse over: 25 hr, Route: IV, Dosing Weight 87.091 kg, Total Volume: 250, Start date: 06/01/18 22:26:00 CDT, Duration: 30 day, Stop date: 07/01/18 22:25:00 CDT, 2.08, m2 [facility] Octreotide 2018-06-02 03:26:00 No Notes: (Same As: SandoSTATIN). Refrigerate. MEDICATION WASTE Product Size: 50 microgram Product Wasted: ___ microgram [facility] Flagyl 2018-06-02 02:00:00 No Notes: (Same as: Flagyl) Avoid alcohol. [facility] Tramadol 2018-06-02 01:13:00 No Notes: Not to exceed 400mg/day. (Same As: Ultram) [facility] Hydromorphone 2018-06-02 01:13:00 No Notes: Same as: Dilaudid [facility] Ondansetron 2018-06-02 01:12:00 No Notes: (Same as: Zofran) MEDICATION WASTE Product Size: 4 mg Product Wasted: ___ mg [facility] Melatonin 2018-06-02 01:12:00 No Notes: (Sa me as: Melatonin) [facility] Bisacodyl 2018-06-02 01:12:00 No Notes: (Same As: Dulcolax, Bisco-Lax) [facility] Dextrose 50% Syringe 2018-06-02 01:12:00 No 12.5 gm, 25 mL, Route: IVP, Drug Form: INJ, Dosing Weight 87.091, kg, PRN, PRN Blood Glucose Results, Start date: 06/01/18 20:12:00 CDT, Duration: 30 day, Stop date: 07/01/18 20:11:00 CDT [facility] Glucagon 2018-06-02 01:12:00 No 1 mg, Route: IM, Drug form: PDR/INJ, PRN, Dosing Weight 87.091, kg, PRN Blood Glucose Results, Start date: 06/01/18 20:12:00 CDT, Duration: 30 day, Stop date: 07/01/18 20:11:00 CDT [facility] Calcium Gluconate 2018-06-02 01:11:00 No Notes: WASTE: F/P - Sink; E - Municipal Trash Bin [facility] Magnesium Sulfate 2018-06-02 01:11:00 No Notes: WASTE: F/P - Sink; E - Municipal Trash [facility] Potassium Chloride 2018-06-02 01:11:00 No Notes: (Same as: K-Dur 20) "Do Not Crush" Give with food and full glass of water For patients unable to swallow tablet, dissolve in one half glass of water. Allow about 2 minutes for the tablets to disintegrate. Stir before giving to prepare slurry and administer. Please exclude Patient s with feeding tube less than 14 Kiswahili (Dobhoff, J-tube etc) and pediatric and patients. Tahira Dos Santos potassium phosphate-sodium phosphate 250 mg-280 mg-160 mg oral powder for reconstitution 2018-06-02 01:11:00 No Notes: (Same as: Phos-NaK) Each 1.5 gm pkt has 250mg phosphorous. Mix w/2.5oz water and stir. [facility] potassium phosphate 2018-06-02 01:11:00 No Notes: (Same as: K Phosphate.) Do not infuse phosphorous concurrently in the same line as TPN or IVF that contains calcium. For double lumen central lines, phosphorous may be infused in a separate lumen from TPN. 1 mMol phoshate has 1.47 mEq potassium Infuse over [address] [facility] sodium phosphate 2018-06-02 01:11:00 No Notes: Infuse over 4 hour. Do not infuse phosphorous concurrently in the same line as TPN or IVF that contains calcium. For double lumen central lines, phosphorous may be infused in a separate lumen from TPN. Tahira moreno Magnesium Oxide 2018-06-02 01:11:00 No Notes: (Same as: Mag-Ox 400) Magnesium oxide [id number] elemental magnesium Dose=____mg magnesium oxide (___mg elemental magnesium) Tahira lopez Ciprofloxacin 2018-06-02 01:09:00 No Notes: Do not refrigerate Tahira Dos Santos tramadol hydrochloride 50 MG Oral Tablet 2018-06-02 01:02:00 No 50 mg = 1 tab, PO, Q6H, PRN Pain, # 40 tab, 0 Refill(s) Tahira Dos Santos Folic Acid 1 MG Oral Tablet 2018-06-02 01:02:00 Yes 1 mg = 1 tab, PO, Daily, # 30 tab, 0 Refill(s) Juve Dos Santos spironolactone 50 mg oral tablet 2018-06-02 01:02:00 Yes 50 mg = 1 tab, PO, Daily, # 90 tab, 1 Refill(s) Me robert Dos Santos Furosemide 40 MG Oral Tablet 2018-06-02 01:02:00 Yes 40 mg = 1 tab, PO, Daily, # 30 tab, 0 Refill(s) [facility]wal [facility] pneumococcal capsular polysaccharide typ e 1 vaccine / pneumococcal capsular polysaccharide type 10A vaccine / pneumococcal capsular polysaccharide type 11A vaccine / pneumococcal capsular polysaccharide type 12F vaccine / pneumococcal capsular polysacchar 2018-06-02 00:50:32 No Notes: (Same as: Pneumovax 23) Refrigerate [facility] influenza virus vaccine, inactivated 2018-06-02 00:50:04 No Notes: (Same as: Fluzone Quadrivalent, Fluarix Quadrivalent) For 3 years of age and older (0.5 mL IM) Shake well before use [facility] pantoprazole additive 80 mg + Sodium Chloride 0.9% IV 100 mL 2018-06-01 22:40:00 No Notes: For IV push reconstitute with 10 ml 0.9% sodium chloride and push over 2 minutes. (Same as: Protonix) [facility] Protonix 2018-06-01 22:40:00 No Notes: For IV push reconstitute with 10 ml 0.9% sodium chloride and push over 2 minutes. (Same as: Protonix) [facility] Sodium Chloride 0.9% (Bolus) IV 2018-06-01 21:42:00 No 1,000 mL, Infuse Over: 1 hr, Route: IV, ONCE, Priority: STAT, Dosing Weight 90.909 kg, Start date: 06/01/18 16:42:00 CDT, Stop date: 06/01/18 16:42:00 CDT [facility] Zofran 2018-06-01 21:41:00 No 4 mg, Route: IVP, Drug form: INJ, ONCE, Dosing Weight 90.909, kg, Priority: STAT, Start date: 06/01/18 16:41:00 CDT, Stop date: 06/01/18 16:41:00 CDT [facility] Morphine 2018-06-01 21:41:00 No 4 mg, Route: IVP, ONCE, Dosing Weight 90.909, kg, Priority: STAT, Start date: 06/01/18 16:41:00 CDT, Stop date: 06/01/18 16:41:00 CDT [facility] pantoprazole 2018-06-01 14:59:00 No Notes: For IV push reconstitute with 10 ml 0.9% sodium chloride and push over 2 minutes. (Same as: Protonix) [facility] Saline Flush 0.9% 2018-06-01 14:59:00 No Notes: (Same as: BD Posiflush) [facility] Sodium Chloride 0.9% (Bolus) IV 2018-06-01 14:59:00 No 1,000 mL, 1000 ml/hr, Infuse Over: 1 hr, Route: IV, 1,000, Drug form: INJ, ONCE, Priority: STAT, Dosing Weight 90.909 kg, Start date: 06/01/18 9:59:00 CDT, Stop date: 06/01/18 9:59:00 CDT [facility] pantoprazole 2018-05-31 18:30:00 Yes Notes: For IV push reconstitute with 10 ml 0.9% sodium chloride and push over 2 minutes. (Same as: Protonix) [facility] Saline Flush 0.9% 2018-05-31 18:30:00 No Notes: (Same as: BD Posiflush) [facility] Saline Flush 0.9% 2018-04-18 23:16:00 No Notes: (Same as: BD Posiflush) [facility] Fentanyl 2017-09-16 19:34:00 No Notes: (Same as: Sublimaze) Preservative free. [facility] Saline Flush 0.9% 2017-09-16 19:29:00 No 10 mL, Route: IVP, Drug Form: INJ, Dosing Weight 77, kg, PRN, PRN Line Flush, Start date: 09/16/17 14:29:00 CDT, Duration: 30 day, Stop date: 10/16/17 14:28:00 CDT [facility] Fentanyl 2017-09-16 15:34:00 No 25 microgram, Route: IV, ONCE, Dosing Weight 74.091, kg, Start date: 09/16/17 10:34:00 CDT, Stop date: 09/16/17 10:34:00 CDT [facility] Phenergan 2017-09-16 07:39:00 No 12.5 mg, Route: IVPB, ONCE, Dosing Weight 81.818, kg, Priority: STAT, Start date: 09/16/17 2:39:00 CDT, Stop date: 09/16/17 2:39:00 CDT [facility] Morphine 2017-09-16 07:39:00 No 4 mg, Route: IVP, ONCE, Dosing Weight 81.818, kg, Priority: STAT, Start date: 09/16/17 2:39:00 CDT, Stop date: 09/16/17 2:39:00 CDT [facility] Saline Flush 0.9% 2017-09-16 07:12:00 No Notes: (Same as: BD Posiflush) [facility] GI cocktail 2017-09-16 07:02:00 No Notes: G.I. Cocktail = antacid with simethicone 22.5 mL - lidocaine viscous 7.5 mL [facility] Furosemide (Lasix) 40 Mg TABLET Furosemide (Lasix) 40 Mg TABLET 2019-08-16 00:00:00 No 40 Daily [facility] Lactulose Lactulose 2019-08-16 00:00:00 No 30 Three Times A Day [facility] Spironolactone Spironolactone 2019-08-16 00:00:00 No 50 Daily [facility] Acetaminophen With Codeine (Tylenol With Codeine #3 Ta blet) 1 Each TABLET Acetaminophen With Codeine (Tylenol With Codeine #3 Tablet) 1 Each TABLET 2019-08-14 00:00:00 No 300 [id number] as needed f or Pain [facility] Vital Signs Vital Name Observation Time Observation Value Comments Source Body Temperature 2019-08-16 22:21:00 98.2 [degF] [facility] BMI (Body Mass Index) 2019-08-14 20:11:00 30.7 kg/m2 [facility] Weight 2019-08-14 19:00:00 207.56 [lb_av] [facility] Systolic (mm Hg) 2019-02-26 17:26:00 Ton Dos Santos Diastolic (mm Hg) 2019-02-26 17:26:00 Gigi Dos Santos Heart Rate 2019-02-26 17:26:00 [facility] [place] Respitory Rate 2019-02-26 17:26:00 [facility] [place] Temperature Oral (F) 2019-02-26 17:26:00 97.9 F [facility] Weight 2019-02-26 17:26:00 [facility] Temperature Oral (F) 2018-08-25 01:56:00 98.2 F [facility] Systolic (mm Hg) 2018-08-25 01:56:00 Ton [facility] Diastolic (mm Hg) 2018-08-25 01:56:00 [facility] [place] Respitory Rate 2018-08-25 01:56:00 [facility] Heart Rate 2018-08-25 01:56:00 [facility] Respitory Rate 2018-08-04 09:30:00 [facility] Temperature Oral (F) 2018-08-04 09:30:00 97.9 F [facility] Systolic (mm Hg) 2018-08-04 09:30:00 Ton [facility] Diastolic (mm Hg) 2018-08-04 09:30:00 [facility] BMI Calculated 2018-08-04 05:02:00 [facility] [place] Respitory Rate 2018-08-04 05:02:00 [facility] Height 2018-08-04 05:02:00 175.26 cm [facility] [place] Weight 2018-08-04 05:02:00 [facility] Temperature Oral (F) 2018-08-04 05:02:00 98.1 F [facility] Systolic (mm Hg) 2018-08-04 05:02:00 Ton [facility] Diastolic (mm Hg) 2018-08-04 05:02:00 [facility] Heart Rate 2018-08-04 05:02:00 [facility] Systolic (mm Hg) 2018-06-05 21:30:00 Ton [facility] Diastolic (mm Hg) 2018-06-05 21:30:00 [facility] [place] Respitory Rate 2018-06-05 21:30:00 [facility] Systolic (mm Hg) 2018-06-05 21:15:00 Ton [facility] Diastolic (mm Hg) 2018-06-05 21:15:00 [facility] Respitory Rate 2018-06-05 21:15:00 [facility] [place] Systolic (mm Hg) 2018-06-05 21:00:00 Ton [facility] [place] Diastolic (mm Hg) 2018-06-05 21:00:00 [facility] [place] Respitory Rate 2018-06-05 21:00:00 [facility] Heart Rate 2018-06-05 16:11:00 [facility] [place] Temperature Oral (F) 2018-06-05 16:11:00 98.1 F [facility] Temperature Oral (F) 2018-06-05 12:11:00 98 F [facility] [place] Heart Rate 2018-06-05 12:11:00 [facility] Temperature Oral (F) 2018-06-05 08:10:00 98.1 F [facility] Heart Rate 2018-06-05 08:10:00 [facility] BMI Calculated 2018-06-02 00:42:00 [facility] Weight 2018-06-02 00:42:00 [facility] Height 2018-06-02 00:42:00 175.26 cm [facility] [place] Weight 2018-06-01 14:58:00 [facility] [place] Weight 2018-05-31 18:08:00 [facility] [place] Height 2018-05-31 18:08:00 175.26 cm [facility] BMI Calculated 2018-05-31 18:08:00 [facility] Systolic (mm Hg) 2018-05-31 18:08:00 Ton [facility] Diastolic (mm Hg) 2018-05-31 18:08:00 [facility] [place] Respitory Rate 2018-05-31 18:08:00 [facility] Heart Rate 2018-05-31 18:08:00 [facility] Temperature Oral (F) 2018-05-31 18:08:00 98.2 F [facility] [place] Systolic (mm Hg) 2018-04-18 23:05:00 Ton [facility] Diastolic (mm Hg) 2018-04-18 23:05:00 [facility] [place] Heart Rate 2018-04-18 23:05:00 [facility] [place] Respitory Rate 2018-04-18 23:05:00 [facility] [place] Temperature Oral (F) 2018-04-18 23:05:00 98.5 F [facility] Height 2018-04-18 23:05:00 175.26 cm [facility] [place] BMI Calculated 2018-04-18 23:05:00 [facility] Weight 2018-04-18 23:05:00 [facility] Weight 2017-09-16 19:15:00 [facility] [place] BMI Calculated 2017-09-16 19:15:00 [facility] Height 2017-09-16 19:15:00 175.26 cm [facility] Temperature Oral (F) 2017-09-16 19:15:00 99.1 F [facility] Respitory Rate 2017-09-16 19:15:00 [facility] Heart Rate 2017-09-16 19:15:00 [facility] [place] Systolic (mm Hg) 2017-09-16 19:15:00 Ton [facility] Diastolic (mm Hg) 2017-09-16 19:15:00 [facility] Temperature Oral (F) 2017-09-16 16:04:00 98.9 F [facility] Respitory Rate 2017-09-16 16:04:00 [facility] [place] Systolic (mm Hg) 2017-09-16 16:04:00 Ton [facility] Diastolic (mm Hg) 2017-09-16 16:04:00 [facility] [place] Systolic (mm Hg) 2017-09-16 15:01:00 Ton [facility] [place] Diastolic (mm Hg) 2017-09-16 15:01:00 [facility] Respitory Rate 2017-09-16 15:01:00 [facility] [place] Height 2017-09-16 14:07:00 175.26 cm [facility] BMI Calculated 2017-09-16 14:07:00 [facility] [place] Weight 2017-09-16 14:07:00 [facility] Systolic (mm Hg) 2017-09-16 14:03:00 Ton [facility] Diastolic (mm Hg) 2017-09-16 14:03:00 [facility] [place] Respitory Rate 2017-09-16 14:03:00 [facility] [place] Temperature Oral (F) 2017-09-16 13:01:00 99.0 [facility] Rate 2017-09-16 11:10:00 [facility] Rate 2017-09-16 09:30:00 [facility] Weight 2017-09-16 06:48:00 [facility] Temperature Oral (F) 2017-09-16 06:48:00 99 F [facility] Heart Rate 2017-09-16 06:48:00 [facility] Procedures Procedure Date / Time Performed Performing Clinician Sourc e Computed tomography of abdomen and pelvis with contrast 00:00:00 [facility] Computed tomography of brain without radiopaque contrast 2019-08 00:00:00 [facility] Exploratory laparotomy [facility] Plan of Care Planned Activity Planned Date Details Comments Source Instructions Cirrhosis [facility] Encounters Start Date/Time End Date/Time Encounter Type Admission Type Att[facility] Facility Care Department Encounter ID Source 2019-08-15 11:21:00 2019-08-14 06:12:00 Admitted Inpatient 1 [facility] [id number] [facility] 2019-02-26 11:19:29 2019-02-26 14:42:00 Outpatient Mary Banks [facility] [id number] 2019-02-26 11:19:00 2019-02-26 11:19:00 Emergency E MHSE [facility]SE [id number] 2018-08-24 20:55:56 2018-08-25 00:12:00 Outpatient Mary BanksSE MHSE [id number] 2018-08-24 20:55:00 2018-08-24 20:55:00 Emergency E MHSE MHSE [id number] 2018-08-03 23:59:28 2018-08-04 05:44:00 Outpatient Mary BanksSE MHSE [id number] 2018-08-03 23:59:00 2018-08-03 23:59:00 Emergency E MHSE MHSE [id number] 2018-06-01 09:37:00 2018-06-05 18:35:00 Outpatient Nabeel Hough i MHPL MHPL [id number] 2018-05-31 12:19:00 2018-05-31 19:22:00 Outpatient Mary Banks MHSE MHSE [id number] 2018-04-18 16:46:00 2018-04-18 20:32:00 Outpatient Varinder Berger MHSE MHSE [id number] 2018-04-18 16:46:00 2018-04-18 20:32:00 Outpatient IhVarinder maki U MHSE SE [id number] 2018-04-18 16:46:00 2018-04-18 16:46:00 Emergency E MHSE MHSE [id number] 2017-09-16 13:46:00 2017-09-16 15:34:00 Outpatient F Pauline stearns MHPL MHPL [id number] 2017-09-16 01:41:00 2017-09-16 12:59:00 Outpatient Zandra Justice SE SE [id number] 2017-06-15 15:53:00 2017-06-20 17:14:00 Discharged Inpatient ER [facility] [id number] [facility] Results Test Description Test Time Test Comments Results Result Comments Source Blood leukocytes automated count (number/volume) 2019-08-16 05:10:00 Test Item White Blood Count (test code = 6690-2) 2.51 4.8-10.8 [facility] count (number/volume)2019-08-16 05:10:00* Test Item Value Reference Range Interpretation Comments Red Blood Count (test code = 789-8) 3.18 4.3-5.7 [facility] hemoglobin measurement (moles/volume)2019-08-16 05:10:00* Test Item Value Reference Range Interpretation Comments Hemoglobin (test code = 88857-6) 7.0 14.0-18.0 [facility] hematocrit (volume fraction)2019-08-16 05:10:00* Test Item Value Reference Range Interpretation Comments Hematocrit (test code = 4544-3) 24.3 38.2-49.6 [facility] erythrocyte mean corpuscular avlfat0078-69-04 05:10:00* Test Item Value Reference Range Interpretation Comments Mean Corpuscular Volume (test code = 787-2) 76.4 81-99 [facility] mean corpuscular hemoglobin (mass per erythrocyte)2019-08-16 05:10:00* Test Item Value Reference Range Interpretation Comments Mean Corpuscular Hemoglobin (test code = 785-6) 22.0 28-32 [facility] mean corpuscular hemoglobin concentration measurement (mass/volume)2019-08-16 05:10:00* Test Item Value Reference Range Interpretation Comments Mean Corpuscular Hemoglobin Concent (test code = 786-4) 28.8 31-35 [facility] HendersonRDW CtmFy-Zsf1586-61-05 05:10:00* Test Item Value Reference Range Interpretation Comments Red Cell Distribution Width (test code = 76745-9) 20.0 11.7 -14.4 [facility] Henderson[facility] blood platelet count (count/volume)2019-08-16 05:10:00* Test Item Value Reference Range Interpretation Comments Platelet Count (test code = 777-3) 50 140-360 [facility] segmented neutrophil count as percentage of total xyzihhvgwq2915-69-14 05:10:00* Test Item Value Reference Range Interpretation Comments Neutrophils (%) (Auto) (test code = 38807-6) 52.6 38.7-80.0 [facility] Henderson[facility] blood lymphocyte count as percentage ot total abddkllmkc3428-31-25 05:10:00* Test Item Value Reference Range Interpretation Comments Lymphocytes (%) (Auto) (test code = 736-9) 17.9 18.0-39.1 [facility] HendersonAutom[facility] blood monocyte count as percentage of total pzcsgkvggq4177-33-94 05:10:00* Test Item Value Reference Range Interpretation Comments Monocytes (%) (Auto) (test code = 5905-5) 18.3 4.4-11.3 [facility] HendersonAutom[facility] blood eosinophil count as percentage of total qgaejkvygf7146-06-90 05:10:00* Test Item Value Reference Range Interpretation Comments Eosinophils (%) (Auto) (test code = 713-8) 10.0 0.0-6.0 [facility] HendersonAutom[facility] blood basophil count as percentage of total mihrtehuft1072-02-15 05:10:00* Test Item Value Reference Range Interpretation Comments Basophils (%) (Auto) (test code = 706-2) 0.8 0.0-1.0 [facility] HendersonFluoroscopic procedure less than one hour wwjtrttc9657-68-97 05:10:00* Test Item Value Reference Range Interpretation Comments IM GRANULOCYTES % (test code = IM GRANULOCYTES %) 0.4 0.0- 1.0 [facility] neutrophil count 2019-08-16 05:10:00* Test Item Value Reference Range Interpretation Comments Neutrophils # (Auto) (test code = 751-8) 1.3 2.1-6.9 [facility] lymphocytes count (number/volume) 2019-08-16 05:10:00* Test Item Value Reference Range Interpretation Comments Lymphocytes # (Auto) (test code = 00925-6) 0.5 1.0-3.2 [facility] monocytes automated count (number/volume)2019-08-16 05:10:00* Test Item Value Reference Range Interpretation Comments Monocytes # (Auto) (test code = 742-7) 0.5 0.2-0.8 [facility] eosinophil count 2019-08-16 05:10:00* Test Item Value Reference Range Interpretation Comments Eosinophils # (Auto) (test code = 711-2) 0.3 0.0-0.4 [facility] HendersonAutom[facility] blood basophil count (count/volume)2019-08-16 05:10:00* Test Item Value Reference Range Interpretation Comments Basophils # (Auto) (test code = 704-7) 0.0 0.0-0.1 [facility] HendersonFluoroscopic procedure less than one hour keygeaec2528-20-24 05:10:00* Test Item Value Reference Range Interpretation Comments Absolute Immature Granulocyte (auto (carolina t code = Absolute Immature Granulocyte (auto) 0.01 0-0.1 [facility] platelets count by estimate (number/volume)2019-08-16 05:10:00* Test Item Value Reference Range Interpretation Comments Platelet Estimate (test code = 63045-0) MARKEDLY DECREASED [facility] HendersonPlatelet xrpnjkgkti1022-03-25 05:10:00* Test Item Value Reference Range Interpretation Comments Platelet Morphology Comment (test code = 27143-0) NORMAL NO EDTA PLT CLUMPS SEENUT Health HendersonBlood hypochromia detection by light vvkluvuhqa9935-32-99 05:10:00* Test Item Value Reference Range Interpretation Comments Hypochromasia (test code = 728-6) MODERATE [facility] plasma sodium measurement (moles/volume)2019-08-16 05:10:00* Test Item Value Reference Range Interpretation Comments Sodium Level (test code = 2951-2) 130 136-145 [facility] or plasma potassium measurement (moles/volume)2019-08-16 05:10:00* Test Item Value Reference Range Interpretation Comments Potassium Level (test code = 2823-3) 3.3 3.5-5.1 [facility] or plasma chloride measurement (moles/volume)2019-08-16 05:10:00* Test Item Value Reference Range Interpretation Comments Chloride Level (test code = 2075-0) 97 98-107 [facility] or plasma carbon dioxide, total measurement (moles/volume)2019-08-16 05:10:00* Test Item Value Reference Range Interpretation Comments Carbon Dioxide Level (test code = 2028-9) 26 22-29 [facility] or plasma anion xqx7306-05-12 05:10:00* Test Item Value Reference Range Interpretation Comments Anion Gap (test code = 06440-3) 10.3 8-16 [facility] or plasma urea nitrogen measurement (mass/volume)2019-08-16 05:10:00* Test Item Value Reference Range Interpretation Comments Blood Urea Nitrogen (test code = 3094-0) 11 7-26 [facility] or plasma creatinine measurement (mass/volume)2019-08-16 05:10:00* Test Item Value Reference Range Interpretation Comments Creatinine (test code = 2160-0) 1.02 0.72-1.25 [facility] or plasma urea nitrogen/creatinine mass butqd2933-04-92 05:10:00* Test Item Value Reference Range Interpretation Comments BUN/Creatinine Ratio (test code = 3097-3) 11 6-25 [facility] HendersonEstimated glomerular filtration rate (GFR) srepiouuqhxhs9188-32-66 05:10:00* Test Item Value Reference Range Interpretation Comments Estimat Glomerular Filtration Rate (test code = 481234628) > 60 >60 Ranges were taken from the National Kidney Disease Education Program and the [facility] literature.Reference ranges:60 or greater: Sgeder64-74 ( for 3 consecutive months): Chronic kidney disease 15 or less: Kidney failureUT Health HendersonGlucose vpbemtqxqmn9025-84-58 05:10:00* Test Item Value Reference Range Interpretation Comments Glucose Level (test code = VBM5237) 83 74-118 [facility] or plasma calcium measurement (mass/volume)2019-08-16 05:10:00* Test Item Value Reference Range Interpretation Comments Calcium Level (test code = 93986-9) 8.0 8.4-10.2 [facility] or plasma total bilirubin measurement (mass/volume)2019-08-16 05:10:00* Test Item Value Reference Range Interpretation Comments Total Bilirubin (test code = 1975-2) 2.3 0.2-1.2 [facility] HendersonFluor[facility] procedure less than one hour cncbkngr3649-26-60 05:10:00* Test Item Value Reference Range Interpretation Comments Aspartate Amino Transf (AST/SGOT) (test code = Aspartate Amino Transf (AST/SGOT)) 56 5-34 [facility]ererum or plasma alanine aminotransferase measurement (enzymatic activity/volume)2019-08-16 05:10:00* Test Item Value Reference Range Interpretation Comments Alanine Aminotransferase (ALT/SGPT) (test code = 1742-6) 20 0-55 [facility] HendersonAmmonia Fww-hRzp8191-30-05 05:10:00* Test Item Value Reference Range Interpretation Comments Ammonia (test code = 16949-0) 75 31-123 [facility]ere[facility] or plasma protein measurement (mass/volume)2019-08-16 05:10:00* Test Item Value Reference Range Interpretation Comments Total Protein (test code = 2885-2) 7.9 6.5-8.1 [facility]ere[facility] or plasma albumin measurement (mass/volume)2019-08-16 05:10:00* Test Item Value Reference Range Interpretation Comments Albumin (test code = 1751-7) 2.7 3.5-5.0 [facility] HendersonPlasma globulin measurement (mass/volume) 2019-08-16 05:10:00* Test Item Value Reference Range Interpretation Comments Globulin (test code = 15366-4) 5.2 2.3-3.5 [facility]ererum or plasma albumin/globulin mass kdbzw3549-95-22 05:10:00* Test Item Value Reference Range Interpretation Comments Albumin/Globulin Ratio (test code = 1759-0) 0.5 0.8-2.0 [facility]ererum or plasma alkaline phosphatase measurement (enzymatic activity/volume)2019-08-16 05:10:00* Test Item Value Reference Range Interpretation Comments Alkaline Phosphatase (test code = 6768-6) 74 40-150 [facility]ererum or plasma lipase measurement (enzymatic activity/volume)2019-08-16 05:10:00* Test Item Value Reference Range Interpretation Comments Lipase (test code = 3040-3) 24 8-78 [facility] Centertool gastrointestinal hemoglobin mcgylcbmh6674-05-58 20:05:00* Test Item Value Reference Range Interpretation Comments Stool Occult Blood (test code = 2335-8) NEGATIVE NEGATIVE [facility] polychromasia detection by light ymvcdhyejo6100-41-96 05:15:00* Test Item Value Reference Range Interpretation Comments Polychromasia (test code = 33047-2) FEW [facility] anisocytosis detection by light sviyvvokoh4845-37-44 05:15:00* Test Item Value Reference Range Interpretation Comments Anisocytosis (test code = 702-1) MODERATE [facility] ovalocytes detection by light uvewyutupm5177-91-44 05:15:00* Test Item Value Reference Range Interpretation Comments Ovalocytes (test code = 774-0) MODERATE [facility] HendersonRBC ibbghzqcll4988-50-44 05:15:00* Test Item Value Reference Range Interpretation Comments Red Cell Morphology Comment (test code = 6742-1) ABNORMAL [facility]ere[facility] or plasma magnesium measurement (mass/volume)2019-08-15 05:15:00* Test Item Value Reference Range Interpretation Comments Magnesium Level (test code = 48056-1) 1.6 1.3-2.1 [facility]ererum or plasma creatine kinase measurement (enzymatic activity/volume)2019-08-15 05:15:00* Test Item Value Reference Range Interpretation Comments Creatine Kinase (test code = 2157-6) 253 30-200 [facility] color icnxcjadyovpj3698-77-77 08:54:00* Test Item Value Reference Range Interpretation Comments Urine Color (test code = 5778-6) YELLOW YELLOW [facility] HendersonUrine pbexded2573-41-29 08:54:00* Test Item Value Reference Range Interpretation Comments Urine Clarity (test code = 10816-1) CLEAR CLEAR [facility] Centerpecific gravity of Urine by Test strip 2019-08-14 08:54:00* Test Item Value Reference Range Interpretation Comments Urine Specific [place] (test code = 5811-5) 1.015 1.010-1.02 5 [facility] pH measurement by automated test iwoid5361-70-55 08:54:00* Test Item Value Reference Range Interpretation Comments Urine pH (test code = 93843-4) 7 5-7 [facility] leukocyte esterase detection by zddfqfsf0993-71-83 08:54:00* Test Item Value Reference Range Interpretation Comments Urine Leukocyte Esterase (test code = 5799-2) NEGATIVE NEGATIVE [facility] Henderson[facility] nitrite amnfsubnl0008-62-54 08:54:00* Test Item Value Reference Range Interpretation Comments Urine Nitrite (test code = 23262-8) NEGATIVE NEGATIVE [facility] protein measurement by test strip (mass/volume)2019-08-14 08:54:00* Test Item Value Reference Range Interpretation Comments Urine Protein (test code = 5804-0) NEGATIVE NEGATIVE [facility] HendersonU[facility] glucose uplclcalz8990-91-16 08:54:00* Test Item Value Reference Range Interpretation Comments Urine Glucose (UA) (test code = 2349-9) NEGATIVE NEGATIVE [facility] HendersonU[facility] ketones detection by automated test xhrvd6430-96-10 08:54:00* Test Item Value Reference Range Interpretation Comments Urine Ketones (test code = 59549-2) NEGATIVE NEGATIVE [facility] HendersonUrine opiates screening cxhi2093-10-56 08:54:00* Test Item Value Reference Range Interpretation Comments Urine Opiates Screen (test code = 98797-4) NEGATIVE NEGATIVE ALL TESTS PERFORMED MANUALLY ON [employer] TOX/SEE TESTUT Health HendersonBarbiturates screen, xdlwz6853-37-91 08:54:00* Test Item Value Reference Range Interpretation Comments Urine Barbiturates Screen (test code = 632390274) NEGATIVE NEGA TIVE [facility] HendersonU[facility] phencyclidine detection by screening teqqqa9421-68-60 08:54:00* Test Item Value Reference Range Interpretation Comments Urine Phencyclidine Screen (test code = 70077-0) NEGATIVE NEGAT ELSIE [facility] HendersonU[facility] amphetamines detection by screen method > 1000 ng/nV6761-28-74 08:54:00* Test Item Value Reference Range Interpretation Comments Urine Amphetamines Screen (test code = 55491-6) NEGATIVE NEGATI VE [facility] HendersonFluoroscopic procedure less than one hour fydprnbx3627-13-27 08:54:00* Test Item Value Reference Range Interpretation Comments Urine Methamphetamines Screen (test code = Urine Metha mphetamines Screen) NEGATIVE NEGATIVE [facility] Henderson[facility] benzodiazepines detection by screening ylpchu5702-65-64 08:54:00* Test Item Value Reference Range Interpretation Comments Urine Benzodiazepines Screen (test code = 06754-7) NEGATIVE NEG ATIVE [facility] HendersonU[facility] cocaine measurement (mass/volume) 2019-08-14 08:54:00* Test Item Value Reference Range Interpretation Comments Urine Cocaine Screen (test code = 3398-5) NEGATIVE NEGATIVE [facility] Henderson[facility] cannabinoids detection by screening jebarm8089-24-25 08:54:00* Test Item Value Reference Range Interpretation Comments Urine Cannabinoids Screen (test code = 57463-8) NEGATIVE NEGATI VE THESE RESULTS ARE FOR MEDICAL TREATMENT ONLYTHIS REPORT CONTAINS UNCONFIR MED SCREENING RESULTS*POSITIVE RESULTS WILL BE CONFIRMED BY REFERENCE LAB UPON R EQUEST CUT-OFFDRUG CLASS CONCENTRATION ng/mLAmphetamines 1000Methamphetamines 1000Cocaine 300Opiate 300Phencyc lidine 25Cannabinoid 50Barbiturates 300Benzodiazepine 300Methadone 300[facility]Urine methadone sfqrki9980-35-42 08:54:00* Test Item Value Reference Range Interpretation Comments Urine Methadone Screen (test code = 17894-7) NEGATIVE NEGATIVE THESE RESULTS ARE FOR MEDICAL TREATMENT ONLYTHIS REPORT CONTAINS UNCONFIR MED SCREENING RESULTS*POSITIVE RESULTS WILL BE CONFIRMED BY REFERENCE LAB UPON R EQUEST CUT-OFFDRUG CLASS CONCENTRATION ng/mLAmphetamines 1000Methamphetamines 1000Cocaine Metabolite 300Opiate 300Phencyc lidine 25Cannabinoid 50Barbiturates 300Benzodiazepine 300Methadone 300[facility]Urine urobilinogen measurement by test strip (mass/volume)2019-08-14 08:54:00* Test Item Value Reference Range Interpretation Comments Urine Urobilinogen (test code = 94349-7) 0.2 0.2-1 [facility] total bilirubin measurement (mass/volume)2019-08-14 08:54:00* Test Item Value Reference Range Interpretation Comments Urine Bilirubin (test code = 1978-6) NEGATIVE NEGATIVE [facility] erythrocytes fyporkekb4247-73-30 08:54:00* Test Item Value Reference Range Interpretation Comments Urine Blood (test code = 37305-5) MODERATE NEGATIVE [facility] HendersonAutomated urine sediment leukocyte count by microscopy (number/high power field)2019-08-14 08:54:00* Test Item Value Reference Range Interpretation Comments Urine WBC (test code = 5821-4) 21-50 0-5 [facility] HendersonErythrocytes detection in urine sediment by light psmnhflkyj9558-38-27 08:54:00* Test Item Value Reference Range Interpretation Comments Urine RBC (test code = 20460-4) >50 0-5 [facility] HendersonBacteria detection in urine sediment by light uelongyphu2753-38-29 08:54:00* Test Item Value Reference Range Interpretation Comments Urine Bacteria (test code = 17280-4) FEW NONE [facility] HendersonEpithelial cells detection in urine sediment by light xnchhshocu5641-53-00 08:54:00* Test Item Value Reference Range Interpretation Comments Urine Epithelial Cells (test code = 07408-9) MANY NONE [facility] HendersonFluoroscopic procedure less than one hour axmxtqso7361-81-86 08:54:00* Test Item Value Reference Range Interpretation Comments Coronavirus (PCR) (test code = Coronavirus (PCR)) NOT DETECTED NOTD ETECTED SARS-COV-2 (COVID19), HIGHRISK, RT-PCRNegative results do not preclude SARS-CoV- 2 infection and should not be used as the sole basis for patient management deci sions. Negative results must be combined with clinical observations, patient his tory, and epidemiological information. Optimum specimen types and timing for pea k viral levels during infections caused by SARS-CoV-2 have not been determined. Collection of multiple specimens ot types of specimens may be necessary to detec t virus. Improper specimen collection and handling, sequence variability under p rimers/probes, or organism present below the limit of detection may lead to fals e negative results. Positive and negative predictive values of testing are highl y dependent on prevalance. False negative test results are more likely when prev alence is high.The expected result is negative (not detected).The SARS-CoV-2 carolina t is intended for the qualitative detection of nucleic acid from SARS-CoV-2 in n asopharyngeal and oropharyngeal swab samples from patients who meet COVID-19 cli nical and or epidemiological criteria. For lower respiratory tract specimens, th e assay is submitted for authoriztion by FDA under an Emergency Use Authorizatio n (EUA). Testing methodology is real time RT-PCR. If received as separate collec tion devices, nasopharygeal and oropharyngeal specimens are combined for analysi s. Additional specimens may be split to a separate accession for analysi and rep orting as this test includes a single unit of service.Test results must be corre lated with clinical presentation and evaluated in the context of other laborator y and epidemiologic data. Test performance can be affected because the epidemiol ogy and clinical spectrum of infection caused by SARS-CoV-2 is not fully known. For example, the optimum types of specimens to collect and when during the cours e of infection these specimens are most likely to contain detectable viral RNA m ay not be known.This test has not been Food and Drug Administration (FDA) cleare d or approved and has been authorized by FDA under an Emergency Use Authorizatio n (EUA). The test is only authorized for the duration of the declaration that ci rcumstances exist justifying the authorization of emergency use of in vitro diag nostic tests for detection and/or diagnosis of SARS-CoV-2 under section 564(b) o f the Act, 21 U.S.C. section 360bbb-3(b)(1), unless the authorization is termina tatum or revoked sooner. [facility] are certified under the C linical Laboratory Improvement Amendments of 1988 (CLIA), 42 U.S.C. section 263a , to perform high complexity tests.Testing performed by [facility] [id number] [place] [address] [phone] Director: Francisco Javier Barth M.D.CLIA # [id number] [facility] Bacterial urine hrkopxg5432-18-41 08:54:00* Test Item Value Reference Range Interpretation Comments Urine Culture (test code = 630-4) ENTEROCOCCUS FAECALIS CHI [facility] ABDOMEN/PELVIS [id number] 08:48:00 [place] [address] Patient Name: JOCELIN CORREA MR #: [id number] : 1970 Age/Sex: 49/M Req #: [id number] Adm Physician: Ordered by: ABA LOYA MD Report #: [id number] Location: ER Room/Bed: Procedure: [id number] CT/CT A BDOMEN/PELVIS W Exam Date: 08/14/19 Exam Time: 0815 REPORT STATUS: Signed EXAMINATIO N: CT of the abdomen and pelvis with contrast. TECHNIQUE: Spiral CT imag es of the abdomen and pelvis were performed from the lung bases to the lesser trochanters after the intravenous administration of 100 cc of Isovue 370. Ramón nal and sagittal reformatted images were obtained. COMPARISON: None. CLINICAL HISTORY:Lower abdominal pain, reports history of cirrhosis DI SCUSSION: ABDOMEN/PELVIS: LOWER THORAX:Lung bases are unremarkable. N o pleural effusion. HEPATOBILIARY: The liver is diffusely hypoattenuating w ith a nodular external contour and relative hypertrophy of the left lobe. No f ocal hepatic lesion or intrahepatic biliary dilatation. No radiopaque gallston es. SPLEEN: Mild splenomegaly (13.5 cm in maximum span.) PA NCREAS: No focal masses or ductal dilatation. ADRENALS: No adrenal nodules . KIDNEYS/URETERS: Punctate nonobstructing calculus in the interpolar right kidney. No hydronephrosis. No additional renal, ureteral, or bladder calculi. No solid renal mass lesion. PELVIC ORGANS/BLADDER: Urinary bladder, pros kennedy, and seminal vesicles are unremarkable. PERITONEUM/RETROPERITONEUM: Small amount of perihepatic ascites tracking along the right paracolic gutter, average internal attenuation 0-5 Hounsfield units. LYMPH NODES: No pelvic sidewall, retroperitoneal, or mesenteric lymphadenopathy. Mildly prominent lik pee reactive portacaval lymph node. VESSELS: Abdominal aorta, major branch vessels, and iliac arterial systems are patent. Portal vein, splenic vein, and central superior mesenteric vein are patent. GI TRACT: Large bowel shows no distension or wall thickening. Appendix is normal. No small bowel dilata tion to suggest obstruction. BONES AND SOFT TISSUE: No osseous destructive lesions. Bilateral gynecomastia. IMPRESSION: Cirrhosis with port al hypertension evidenced by splenomegaly and small volume ascites. Nonob structing punctate right renal calculus. Signed by: Dr. Brianna Navarro M.D. on 08/14/2019 9:04 AM Dictated By: BRIANNA NAVARRO MD 3 Transcribed By: ZAHEER on 08/14/19903 COPY TO: ABA LOYA MD CT BRAIN [id number] 08:33:00 [place] [address] Patient Name: JOCELIN CORREA MR #: [id number] : 1970 Age/Sex: 49/M Req #: [id number] Adm Physician: Ordered by: GOLDEN WANG MD Rep ort #: [id number] Location: Room/B ed: Procedure: [id number] CT/CT BRAIN WO Exam Date: 08/14/19 Exam Time: 0815 REPORT STATUS: Signed CT BRAIN WO HISTORY: Altered mental status COMPARISON: None. TECHNIQUE: Noncontrast ax ial scans were obtained from skull base to the vertex. Coronal and sagittal r econstructions obtained from the axial data. One or more of the following dos e reduction techniques were used: Automated exposure control, adjustment of th e mA and/or kV according to patient size, and/or utilization of iterative sofi nstruction technique. DISCUSSION: Scalp/Skull: Unremarkable. Brain s ulci: Mildly prominent. Ventricles: Mild compensatory dilatation. Extra-axia l spaces: No masses or fluid collections. Parenchyma: No abnormal d ensities. No mass, hemorrhage, or large vascular territory acute infarct. Dural sinuses: No abnormal densities. Sellar/Suprasellar region: Intact. S kull base: Intact. Incidental findings: Small metallic foreign body is seen wi thin the left ethmoid air cells. Mild scattered paranasal sinus mucosal thicke concha is present. IMPRESSION: 1. No acute intracranial abnormalities . 2. Mild generalized cerebral volume loss. 3. Small metallic foreign body in the left ethmoid air cells. This can be correlated with trauma history. Signed by: Dr. Ayan Woods M.D. on 08/14/2019 8:38 AM Dictated By: Irma WOODS MD Transcribed By: ZAHEER on 08/14/19837 COPY TO: GOLDEN WANG MD Blood platelet clump detection by light vfemajtnev7481-61-50 05:25:00* Test Item Value Reference Range Interpretation Comments Clumped Platelets (test code = 7796-6) NONE [facility]ONE [facility] by light jumorgwlqf5025-15-63 05:25:00* Test Item Value Reference Range Interpretation Comments Poikilocytosis (test code = 779-9) SLIGHT [facility] or plasma creatine kinase MB measurement (mass/volume)2019-08-14 05:25:00* Test Item Value Reference Range Interpretation Comments Creatine Kinase MB (test code = 59310-4) 2.60 0-5.0 [facility]roponin [facility] measurement by highly sensitive enzyme ghcvlvofzsf9800-61-36 05:25:00* Test Item Value Reference Range Interpretation Comments Troponin I (test code = 79331-1) 0.008 0-0.300 [facility] or plasma amylase measurement (enzymatic activity/volume)2019-08-14 05:25:00* Test Item Value Reference Range Interpretation Comments Amylase Level (test code = 1798-8) 98 25-125 [facility] or plasma acetaminophen measurement by screening method (mass/volume)2019-08-14 05:25:00* Test Item Value Reference Range Interpretation Comments Acetaminophen Level (test code = 67983-2) < 3.0 10-30 [facility] or plasma ethanol measurement (mass/volume)2019-08-14 05:25:00* Test Item Value Reference Range Interpretation Comments Ethyl Alcohol Level (test code = 5643-2) 301.6 0.0-10.0 [facility]ARDIAC EYDEVCC2415-72-16 17:40:00<0.02 [facility] PDBEM4139-05-46 17:40:28920Vxoxludu HermannELECTROLYTES 2019-02-26 17:40:009.5[facility] LoweycmUMWDOBIXBLTJ7697-34-34 17:40:00* Test Item Value Reference Range Interpretation Comments B/C Ratio (test code = B/C Ratio) 12 1 6-25 [facility] IcthpqaGGWAKMQZFGAD5750-41-68 17:40:006.2[facility]annELECTROLYTES 2019-02-26 17:40:00* Test Item Value Reference Range Interpretation Comments A/G Ratio (test code = A/G Ratio) 0.4 1 0.7-1.6 [facility] KsynsliDCPUCIDOLBUG3153-81-41 17:40:0086[facility]annELECTROLYTES 2019-02-26 17:40:0011[facility] CavfdehQXNYHPLWJJFB5632-65-87 17:40:000.92[facility] FshquvyNUELLOIJJPAH2171-53-81 17:40:37[place] ApafnitSIYQMQDMAZVT5271-25-66 17:40:003.5[facility] TwzvoyeCDALFQYFKYVS2514-23-63 17:40:36744Avpcusxj [place] EZOHTWKHNOSJ5573-34-96 17:40:0026[facility] VbtlbbkCJAIGTEEHFHU0168-05-40 17:40:00 8.3[facility] ZgshghwAZZXQWNISFUV6844-81-91 17:40:008.5[facility] DLFOMQWSSFVX6086-93-56 17:40:002.3[facility] YrszntsLFDPIPXEOQRX5100-08-14 17:40:0040[facility] VzuzkmzXNXNMFMKYLAH3610-77-69 17:40:82165Mtdzxqbp [place] DFGAFPIQPWDU7158-34-86 17:40:0073[facility] MgbexheEOUXOCSFWGFY5838-79-86 17:40:00 0.7[facility] MlavbyhYWJUXOJWPPNE3158-50-41 17:40:0098[facility]annHEMATOLOGY 2019-02-26 17:40:00See Note (02/26/19 11:40 AM)[facility]MAT[facility]Y 2019-02-26 17:40:00Normal (02/26/19 11:40 AM)[facility] 2019-02-26 17:40:0041.5[facility] DawvsctXPLJBLCPRE2736-01-41 17:40:0032.8[facility] BesjllcMQCLTQIXVP7262-36-02 17:40:0012.4[facility] WuzhgvbCZIXSASQTE5571-13-32 17:40:0012.3[facility] FdwlzopESUTAYNCHA8292-26-15 17:40:001.0[facility] [place] TFHTRSOFWG2349-12-43 17:40:001.3[facility] QldzpfeONFCQBRGOS0482-11-42 17:40:001.0 [facility] NqhqnlhLQHNVCFMYA6394-19-81 17:40:000.4[facility]annHEMATOLOGY 2019-02-26 17:40:000.4[facility] DglnjmzHRGLFBRERI2587-29-94 17:40:001+ *ABN*(02/26/19 11:40 AM)[facility] OvnoixgKDQENPIASL4265-18-71 17:40:001+ *ABN*(02/26/19 11:40 AM)[facility] KaompyvARNZDFPGHN5939-96-04 17:40:002+ (02/26/19 11:40 AM)[facility] BlzinupRYWOTWQTBF9353-21-31 17:40:003.1[facility] VxsnstjFVODCDPHPT0828-85-71 17:40:003.80[facility] YiseshkGCKTFUKRPR4371-00-40 17:40:008.6[facility] DsjfmvjNHFTRDBNKD0516-09-36 17:40:0027.3[facility] TRAYTKMCQL0454-45-94 17:40:0072.0[facility] EgjygvoLKQIZQBNRM8155-46-27 17:40:00* Test Item Value Reference Range Interpretation Comments MCH (test code = MCH) 22.6 pg 27.0-31.0 [facility] YowdzukZRDEVYSIKZ3159-09-42 17:40:0031.4[facility]annHEMATOLOGY 2019-02-26 17:40:0021.4[facility]Ash[facility] CenterElcrmcdTELYBMJOVC5236-18-77 17:40:0043MeTr[facility]ull Regional Medical CenterKqccdirENBADDSZXH4008-20-30 17:40:009.0[facility] HospitalUnqwqnkECQKWDDRUR0544-55-96 17:40:00* Test Item Value Reference Range Interpretation Comments PT (test code = PT) 15.4 s 12.0-14.7 [facility] HospitalAjpqpnuLTMIRFIYLZ5046-81-38 17:40:00* Test Item Value Reference Range Interpretation Comments INR (test code = INR) 1.21 1 0.85-1.17 [facility] HospitalFysemodSPGJSLBIJO0110-51-28 17:40:00* Test Item Value Reference Range Interpretation Comments PTT (test code = PTT) 32.4 s 22.9-35.8 [facility] URMYKJAW0667-12-90 08:25:00* Test Item Value Reference Range Interpretation [...] Urine Source? Clean CatchDRUGS OF ABUSE SCREEN ZR6838-41-67 08:25:00* Test Item Value Reference Range Interpretation [...] NEGATIVE <300 ng/mL Urine Source? Clean CatchURINALYSIS XUELVVRE0590-69-49 08:14:00* Test Item Value Reference Range Interpretation [...] Urine Source? Clean CatchDRUGS OF ABUSE SCREEN BY4016-63-96 08:14:00* Test Item Value Reference Range Interpretation [...] Source? Clean Catch- CT ABD PELVIS W/O [id number] 08:02:00 Name: JOCELIN CORREA [facility] : 1970 Age/S: 48 / M [address] Unit #: [id number] Loc: [place] [address] Phys: Melania Roberts MD Acct: [id number] Di s Date: Status: REG ER PHONE #: Exam Date: 01/15/2019 0739 FAX #: [phone] Reason: abdominal pain EXAMS: CPT CODE: [id number] CT ABD PELVIS W/O CONT 16727 REASON FOR EXAM: abdomina l pain EXAM [...] 1 Signed Report (CONTINUED) Name: MICHELLE CORREA [facility] : 1970 Age/S : 48 / M [address] Unit #: [id number] Loc: [place] [address] Phys: Maryan Roberts MD Acct: [id number] Dis Date: Status: REG ER PHONE #: [phone] Ex am Date: 01/15/2019 0739 FAX #: [phone] Reason: a bdominal pain EXAMS: CPT CODE: [id number] CT ABD PELVIS W/O CONT 82301 <Continued> Abdominal vascular structures: Grossly normal Peritoneum [...] with an ultrasound. Nonobstructing right-sided nephrolithiasis. Location: [facility] at 0802 Reported and signed by: Steve Long MD CC: Maryan Roberts MD Technologist:Tian Mandujano RT(R),(MR),(C T) CTDI: DLP: Trnscb Date/Time: 01/15/2019 (0802) t.SDR.RR31 Orig Print D/T: S: 01/15/2019 (0805) PAGE [...] CA) 8.8 mg/dL 8.5-10.1 N HEPATIC FUNCTION [id number] 06:53:00* Test Item Value Reference Range Interpretation [...] reference range due to change in reagent. GADRGD7822-17-46 06:53:00* Test Item Value Reference Range Interpretation Comments LIPASE (test code = LIP) 202 U/L 73.0-393.0 N QHNVJIRT-H7722-50-05 06:53:00* Test Item Value Reference Range Interpretation Comments TROPONIN-I (test code = TROPI) <0.015 ng/mL 0-0.045 N NEFAQSR5389-11-32 06:53:00* Test Item Value Reference Range Interpretation Comments ALCOHOL (test code = ALC) 93 mg/dL 0.0-3.0 H -- INTERPRETIVE DATA NOTE: POSITIVE SCREENING RESULTS SHOULD BE CONSIDERED PRESUMPTIVE.WHEN COLLECTED FOR MEDICAL PURPOSES ONLY. SPECIMEN WILL NOTBE COLLECTED BY CHAIN OF CUSTODY.IF A CONFIRMATION OF POSITIVE RESULTS IS DESIRED, ACONFIRMATION TEST MUST BE REQUESTED BY THE PHYSICIAN AT ANADDITIONAL CHARGE TO THE PATIENT. NLBUKQJ1340-17-52 06:52:00* Test Item Value Reference Range Interpretation Comments AMMONIA (test code = AMM) 83 umol/L 11-32 H CBC W/O [id number] 06:39:00* Test Item Value Reference Range Interpretation [...] 10.1 fL 6.7-11.0 N - US ABDOMEN WLTDVTZI7981-92-35 09:19:00 Name: CHELLY CORREA [facility] : 1970 Age/S: 48 / M [address] [facility] Unit #: [id number] Loc: [place] [address] Phys: González Nunez MD Acct: [id number] Dis Date: Status: REG CLI PHONE #: [phone] Exam Date: 12/25/2018 0855 FAX #: [phone] Reason: 571.5,K74.60,211.3,D12.6,V85.25,E66.3 EXAMS: CPT CODE: [id number] US ABDOMEN COMPLETE 15252 REASON FOR EXAM: 571.5,K7 4.60,211.3,D12.6,V85.25,E66.3 EXAM ORDER DATE: 12/25/2018 8:14 AM Attending MRowan: González Nunez MD PROCEDURE: - US ABDO MEN COMPLETE Technique: Grayscale and color Doppler images of the abdomen. Comparison study: Abdominal ultrasound April 10, 2018 FINDINGS: Aorta and IVC: Patent and grossly normal i n caliber. Liver: Size: 13.6 cm craniocaudally Parenc hyma and contour: Coarse echotexture is present and there are areas of con tour nodularity. Cysts and/or masses: None. Intrahepatic kayd e ducts: No intrahepatic biliary ductal dilation [...] 1 Signed Report (CONTINUED) Name: CHELLY CORREA [facility] : 1970 Age/S: 48 / M [address] [facility] Unit #: [id number] Loc: [place] [address] Phys: González Nunez MD Acct: [id number] Dis Date: Status: REG CLI PHONE #: [phone] Exam Date: 12/25/2018 0878 FAX #: [phone] Reason: 571.5,K74.60,211.3,D12.6,V85.25,E66.3 EXAMS: CPT CODE: [id number] US ABDOMEN COMPLETE 57962 < Continued> Left kidney: parenchyma echogenicity: Normal [...] MD; Lety Hopson MD Technologist: TERRY RIZVI RT(R),RDMS Trnscb Date/Time: 12/25/2018 (918) t.LISAR.RR31 Orig Print D/T: S: 12/25/2018 (921) Probe: PAGE 2 Signed Report [id number] 16:26:00* Test Item Value Reference Range Interpretation Comments GLUBED (test code = GLUBED) 101 mg/dL 74-106 N Performed by certified paper bags sewing machine operator at [facility] CBC W/AUTO [id number] 09:15:00* Test Item Value Reference Range Interpretation [...] = MDIFF) NO, ONLY SCAN NEEDED DIFFERENTIAL [id number] 09:15:00* Test Item Value Reference Range Interpretation Comments STAIN ACCEPTABILITY (test code = STN ACCEPTABLE) STAIN ACCEPTABLE HYPOCHROMIA (test code = HYPO) 1+ ANISOCYTOSIS (test code = ANISO) 2+ MICROCYTOSIS (test code = MICR) 1+ MORPHOLOGY COMMENT (test code = MOC) NORMAL PLATELET ESTIMATE (test code = PLTEST) DECREASED COMPREHENSIVE METABOLIC [id number] 08:48:00* Test Item Value Reference Range Interpretation [...] FESAT) 5.80 % 13-45 L THYROID STIMULATING DFBVMAK7390-66-41 08:48:00* Test Item Value Reference Range Interpretation Comments THYROID STIMULATING HORMONE (test code = TSH) 2.940 uIU/mL 0.36-3.7 4 N TSH REFERENCE RANGES: EUTHYROID: 0.35 - 4.3 mIU/mL HYPO : > 5.5 mIU/mL HYPER : < 0.35 mIU/mL [id number] 08:48:00* Test Item Value Reference Range Interpretation Comments FERRITIN (test code = GRABIEL) 12 ng/mL 8-388 N COMPREHENSIVE METABOLIC PKVWP3738-00-40 08:19:00* Test Item Value Reference Range Interpretation [...] code = FESAT) % 13-45 THYROID STIMULATING TZFNCPN8979-95-33 08:19:00* Test Item Value Reference Range Interpretation Comments THYROID STIMULATING HORMONE (test code = TSH) uIU/mL 0.36-3.7 4 [id number] 08:19:00* Test Item Value Reference Range Interpretation Comments FERRITIN (test code = GRABIEL) ng/mL 8-388 CBC W/AUTO [id number] 08:11:00* Test Item Value Reference Range Interpretation [...] = MDIFF) NO, ONLY SCAN NEEDED DIFFERENTIAL [id number] 08:11:00* Test Item Value Reference Range Interpretation Comments STAIN ACCEPTABILITY (test code = STN ACCEPTABLE) CABOT RINGS (test code = CAB) MORPHOLOGY COMMENT (test code = MOC) PLATELET ESTIMATE (test code = PLTEST) PLATELET MORPHOLOGY (test code = PLTMORPH) CBC W/AUTO [id number] 08:11:00* Test Item Value Reference Range Interpretation [...] = MDIFF) NO, ONLY SCAN NEEDED DIFFERENTIAL [id number] 08:11:00* Test Item Value Reference Range Interpretation Comments STAIN ACCEPTABILITY (test code = STN ACCEPTABLE) CABOT RINGS (test code = CAB) MORPHOLOGY COMMENT (test code = MOC) PLATELET ESTIMATE (test code = PLTEST) PLATELET MORPHOLOGY (test code = PLTMORPH) CBC W/AUTO [id number] 08:11:00* Test Item Value Reference Range Interpretation [...] = MDIFF) NO, ONLY SCAN NEEDED DIFFERENTIAL [id number] 08:11:00* Test Item Value Reference Range Interpretation Comments STAIN ACCEPTABILITY (test code = STN ACCEPTABLE) MORPHOLOGY COMMENT (test code = MOC) PLATELET ESTIMATE (test code = PLTEST) PLATELET MORPHOLOGY (test code = PLTMORPH) CBC W/AUTO [id number] 08:10:00* Test Item Value Reference Range Interpretation [...] = MDIFF) NO, ONLY SCAN NEEDED DIFFERENTIAL [id number] 08:10:00* Test Item Value Reference Range Interpretation Comments STAIN ACCEPTABILITY (test code = STN ACCEPTABLE) CABOT RINGS (test code = CAB) MORPHOLOGY COMMENT (test code = MOC) PLATELET ESTIMATE (test code = PLTEST) PLATELET MORPHOLOGY (test code = PLTMORPH) [id number] 08:09:00* Test Item Value Reference Range Interpretation Comments AMMONIA (test code = AMM) 89 umol/L 11-32 H [id number] 08:09:00* Test Item Value Reference Range Interpretation Comments GLYCOSYLATED HEMOGLOBIN (HA1C) (test code = GLYHGB) 5.0 % HbA1 4. 8-6.0 N ESTIMATED AVERAGE GLUCOSE (test code = EAG) 97 MG/DL [id number] 05:52:00* Test Item Value Reference Range Interpretation Comments GLUBED (test code = GLUBED) 100 mg/dL 74-106 N Performed by certified paper bags sewing machine operator at [facility] [id number] 20:26:00* Test Item Value Reference Range Interpretation Comments GLUBED (test code = GLUBED) 111 mg/dL 74-106 H Performed by certified paper bags sewing machine operator at [facility] PROTHROMBIN [id number] 15:38:00* Test Item Value Reference Range Interpretation [...] (2.5-3.5) IS PATIENT ON ANTICOAGULANTS? NTHROMBOPLASTIN TIME [id number] 15:38:00* Test Item Value Reference Range Interpretation Comments THROMBOPLASTIN TIME PARTIAL (test code = PTT) 36.6 seconds 25.0-36. 5 H IS PATIENT ON ANTICOAGULANTS? [id number] 14:10:00* Test Item Value Reference Range Interpretation Comments PHOSPHORUS (test code = PHOS) 3.3 mg/dL 2.5-4.9 N [id number] 14:10:00* Test Item Value Reference Range Interpretation Comments AMYLASE (test code = JUAN) 69 Unit/L 25-115 N [id number] 14:10:00* Test Item Value Reference Range Interpretation Comments LIPASE (test code = LIP) 116 U/L 73.0-393.0 N BZIATPSNQ2372-18-90 14:10:00* Test Item Value Reference Range Interpretation Comments MAGNESIUM (test code = MAG) 2.3 mg/dL 1.8-2.4 N VITAMIN [id number] 14:10:00* Test Item Value Reference Range Interpretation Comments VITAMIN B12 (test code = VITB12) 776 pg/mL 193-986 N FOLIC [id number] 14:10:00* Test Item Value Reference Range Interpretation Comments FOLIC ACID (test code = FOL) 33.2 ng/mL 3.10-17.50 H [id number] 14:10:00* Test Item Value Reference Range Interpretation [...] TO THE PATIENT. - CT HEAD/BRAIN W/O [id number] 07:29:00 Name: JOCELIN CORREA [facility] : 1970 Age/S: 48 / M [address] [facility] Unit #: [id number] Loc: [place] [address] Phys: Lolis Parks DO Acct: [id number] Dis Date: Status: REG ER PHONE #: [phone] Exam Date: 12/06/2018 06 FAX #: [phone] Reason: Altered Mental Status EXAMS: CPT CODE: [id number] CT HEAD/BRAIN W/O CONT 97700 HISTORY: Altered mental status TECHNIQUE: Noncontrast 2.5 [...] Technologist:JULIANE HINKLE CTDI: DLP: Trnscb Date/Time: 12/06/2018 (0729) ThanhLDP1 Orig Print D/T: S: 12/06/2018 (7897) PAGE 1 Signed Report CBC W/AUTO [id number] 07:26:00* Test Item Value Reference Range Interpretation [...] = MDIFF) NO, ONLY SCAN NEEDED DIFFERENTIAL [id number] 07:26:00* Test Item Value Reference Range Interpretation Comments STAIN ACCEPTABILITY (test code = STN ACCEPTABLE) STAIN ACCEPTABLE HYPOCHROMIA (test code = HYPO) 1+ ANISOCYTOSIS (test code = ANISO) 1+ MACROCYTOSIS (test code = MACR) 1+ PLATELET ESTIMATE (test code = PLTEST) DECREASED PLATELET MORPHOLOGY (test code = PLTMORPH) SIZE VARIABLE URINALYSIS [id number] 07:12:00* Test Item Value Reference Range Interpretation [...] Urine Source? Clean CatchDRUGS OF ABUSE SCREEN [id number] 07:12:00* Test Item Value Reference Range Interpretation [...] NEGATIVE <300 ng/mL Urine Source? Clean CatchURINALYSIS [id number] 07:08:00* Test Item Value Reference Range Interpretation [...] Urine Source? Clean CatchDRUGS OF ABUSE SCREEN [id number] 07:08:00* Test Item Value Reference Range Interpretation [...] [place]) <300 ng/mL Urine Source? Clean CatchURINALYSIS [id number] 07:01:00* Test Item Value Reference Range Interpretation [...] Urine Source? Clean CatchDRUGS OF ABUSE SCREEN [id number] 07:01:00* Test Item Value Reference Range Interpretation [...] <300 ng/mL Urine Source? Clean CatchBASIC METABOLIC [id number] 06:46:00* Test Item Value Reference Range Interpretation [...] CA) 8.5 mg/dL 8.5-10.1 N HEPATIC FUNCTION [id number] 06:46:00* Test Item Value Reference Range Interpretation [...] reference range due to change in reagent. [id number] 06:46:00* Test Item Value Reference Range Interpretation Comments TROPONIN-I (test code = TROPI) <0.015 ng/mL 0-0.045 N [id number] 06:46:00* Test Item Value Reference Range Interpretation Comments ACETAMINOPHEN (test code = ACET) < 10 mcg/mL 10-30 L A RANGE OF 10-30 mcg/mL IS A THERAPEUTIC RANGE. TOXIC CONCENTRATIONS: >150 mcg/mL AT 4 HOURS AFTER INGESTION >= 50 mcg/mL AT 12 HOURS AFTER INGESTION [id number] 06:46:00* Test Item Value Reference Range Interpretation Comments SALICYLATE (test code = KAILEY) < 1.7 mg/dL 2.8-20.0 L [id number] 06:46:00* Test Item Value Reference Range Interpretation [...] AT ANADDITIONAL CHARGE TO THE PATIENT. PROTHROMBIN [id number] 06:44:00* Test Item Value Reference Range Interpretation [...] (2.5-3.5) IS PATIENT ON ANTICOAGULANTS? NTHROMBOPLASTIN TIME [id number] 06:44:00* Test Item Value Reference Range Interpretation Comments THROMBOPLASTIN TIME PARTIAL (test code = PTT) 34.6 seconds 25.0-36. 5 N IS PATIENT ON ANTICOAGULANTS? [id number] 06:37:00* Test Item Value Reference Range Interpretation Comments AMMONIA (test code = AMM) 152 umol/L 11-32 H BASIC METABOLIC [id number] 06:31:00* Test Item Value Reference Range Interpretation [...] code = CA) mg/dL 8.5-10.1 HEPATIC FUNCTION [id number] 06:31:00* Test Item Value Reference Range Interpretation [...] TOTAL (test code = ALKP) IUnit/L 45-117 [id number] 06:31:00* Test Item Value Reference Range Interpretation Comments TROPONIN-I (test code = TROPI) ng/mL 0-0.045 [id number] 06:31:00* Test Item Value Reference Range Interpretation Comments ACETAMINOPHEN (test code = ACET) mcg/mL 10-30 [id number] 06:31:00* Test Item Value Reference Range Interpretation Comments SALICYLATE (test code = KAILEY) mg/dL 2.8-20.0 [id number] 06:31:00* Test Item Value Reference Range Interpretation Comments ALCOHOL (test code = ALC) mg/dL 0-3 CBC W/AUTO [id number] 06:21:00* Test Item Value Reference Range Interpretation [...] = MDIFF) NO, ONLY SCAN NEEDED DIFFERENTIAL [id number] 06:21:00* Test Item Value Reference Range Interpretation Comments STAIN ACCEPTABILITY (test code = STN ACCEPTABLE) CABOT RINGS (test code = CAB) MORPHOLOGY COMMENT (test code = MOC) PLATELET ESTIMATE (test code = PLTEST) PLATELET MORPHOLOGY (test code = PLTMORPH) CBC W/AUTO [id number] 06:21:00* Test Item Value Reference Range Interpretation [...] = MDIFF) NO, ONLY SCAN NEEDED DIFFERENTIAL [id number] 06:21:00* Test Item Value Reference Range Interpretation Comments STAIN ACCEPTABILITY (test code = STN ACCEPTABLE) MORPHOLOGY COMMENT (test code = MOC) PLATELET ESTIMATE (test code = PLTEST) PLATELET MORPHOLOGY (test code = PLTMORPH) CBC W/AUTO [id number] 06:21:00* Test Item Value Reference Range Interpretation [...] = MDIFF) NO, ONLY SCAN NEEDED DIFFERENTIAL [id number] 06:21:00* Test Item Value Reference Range Interpretation Comments STAIN ACCEPTABILITY (test code = STN ACCEPTABLE) MORPHOLOGY COMMENT (test code = MOC) PLATELET ESTIMATE (test code = PLTEST) PLATELET MORPHOLOGY (test code = PLTMORPH) CBC W/AUTO [id number] 06:20:00* Test Item Value Reference Range Interpretation [...] = MDIFF) NO, ONLY SCAN NEEDED DIFFERENTIAL [id number] 06:20:00* Test Item Value Reference Range Interpretation Comments STAIN ACCEPTABILITY (test code = STN ACCEPTABLE) CABOT RINGS (test code = CAB) MORPHOLOGY COMMENT (test code = MOC) PLATELET ESTIMATE (test code = PLTEST) PLATELET MORPHOLOGY (test code = PLTMORPH) - XR CHEST 1 [id number] 06:08:00 FAX: Lolis Parks DO [place]: B St: REG Name: JOCELIN CARROLL [facility] : [birth year] Age/S: 48/M [address] [facility] Unit #: [id number] Loc: [place], [place] [address] Phys: Lolis Parks DO Acct: [id number] Dis Date: Status: REG ER PHONE #: [phone] Exam Date: 12/06/2018 0557 FAX #: [phone] Reason: Altered Mental Status EXAMS: CPT CODE: [id number] XR CHEST 1 V 61983 AFTER HOURS SERVICE ON: 12/06/2018 6:07 AM [...] Medhat [email or web address] Orig Print D/T: S: 12/06/2018 (0611) PAG E 1 Signed Report CARDIAC [id number] 02:39:0028[facility]annCARDIAC [id number] 02:39:00< 0.02[facility]annCHEM [id number] 02:39:70917Pgzucsuq HermannCHEM PANEL 2018-08-25 02:39:02013Kehnqynq HermannCHEM [id number] 02:39:002.9[facility]annCHEM [id number] 02:39:10312Tfqiuxaq HermannCHEM [id number] 02:39:0028[facility]annCHEM [id number] 02:39:000.79[facility]annCHEM [id number] 02:39:00* Test Item Value Reference Range Interpretation Comments B/C Ratio (test code = B/C Ratio) 16 1 - [facility]annCHEM [id number] 02:39:008.0[facility]annCHEM PANEL 2018-08-25 02:39:0089[facility]annCHEM [id number] 02:39:000.6[facility]annCHEM [id number] 02:39:006.1[facility]annCHEM [id number] 02:39:00* Test Item Value Reference Range Interpretation Comments A/G Ratio (test code = A/G Ratio) 0.3 1 0.7-1.6 [facility] XNNRK4623-33-69 02:39:0026[facility]annCHEM PANEL 2018-08-25 02:39:0077[facility] BOBHV5652-84-19 02:39:001.9[facility]annCHE[facility] PTIQO8657-81-43 02:39:008.9[facility]annCHEM PIREB6072-40-17 02:39:007.9[facility]annCHE[facility] TWQAU1683-36-25 02:39:87481Tydubrwm HermannCHEM TSCEB1261-49-21 02:39:0013[facility]annCHEM IMVFM9325-11-36 02:39:44791 [facility] QggghosVGJGNERPHV9274-40-85 02:39:000.2[facility]annHEMATOLOGY 2018-08-25 02:39:000.6[facility] JhprqflAXTSTLAVVP2121-83-90 02:39:001.2[facility] OwiigdrVFALNDZHWN1159-95-05 02:39:000.3[facility] YhxasqpJCHLPSPUPN6897-33-25 02:39:001.3[facility] UrjxfjuBRDWRZOWOC6711-83-99 02:39:001+ *ABN*(08/24/18 9:39 PM)[facility] OqccgjuKROSFZMEYA8209-90-66 02:39:0025.3[facility]annHEMATOLOGY 2018-08-25 02:39:0053.3[facility] DdmsrxxHHMFIYLCXE4231-21-99 02:39:008.8[facility] EzlpvixYWUUHSMERA9102-21-10 02:39:0011.3[facility] KfonpmqLVAYBEQUHM4217-14-65 02:39:00* Test Item Value Reference Range Interpretation Comments PT (test code = PT) 14.7 s 12.0-14.7 [facility] JqopsnqXOPDZUHBEM8209-99-47 02:39:00* Test Item Value Reference Range Interpretation Comments PTT (test code = PTT) 34.7 s 22.9-35.8 [facility] DgvkcheDDAYNMROPC7312-86-33 02:39:00* Test Item Value Reference Range Interpretation Comments INR (test code = INR) 1.17 1 0.85-1.17 [facility] SgdahqaPOLRFYQFCA3509-43-54 02:39:008.4[facility]annHEMATOLOGY 2018-08-25 02:39:0076[facility] DheftkgROEODEMPBM4803-43-26 02:39:0019.3[facility] RforezdLBTHZIBSMZ3000-68-81 02:39:0025.7[facility] EcwfonqCQTQJINMPK3253-93-39 02:39:0078.5[facility] VhpttmtILYLEOABHE1345-78-63 02:39:0031.7[facility] YBGOMNIQQO1087-85-00 02:39:00* Test Item Value Reference Range Interpretation Comments MCH (test code = MCH) 24.8 pg 27.0-31.0 [facility] YgqxvaxZQRYFXBSSQ2036-39-26 02:39:003.27[facility]annHEMATOLOGY 2018-08-25 02:39:008.1[facility] EljupupYFAAIOVTFJ1889-99-19 02:39:002.3[facility] AND UWJCI6981-47-42 09:25:00Negative (08/04/18 4:25 AM)[facility]annBLOOD BANK GXDRSNM4164-53-19 06:09:00Negative (08/04/18 1:09 AM)[facility]annCARDIAC AAFHPWN5818-49-29 06:09:00<0.02[facility]annCHEM PANEL 2018-08-04 06:09:87932Rnenudmw HermannCHEM LAQMX3771-72-64 06:09:000.2[facility]annCHEM AGHFU6615-20-99 06:09:00* Test Item Value Reference Range Interpretation Comments A/G Ratio (test code = A/G Ratio) 0.3 1 0.7-1.6 [facility] ZXKXW6749-79-18 06:09:005.8[facility]annCHEM PANEL 2018-08-04 06:09:000.3[facility]annCHEM EKUBK4199-33-45 06:09:000.5[facility]annCHEM DIXBS5995-02-29 06:09:0077[facility]annCHE[facility] QNZIN2041-97-58 06:09:0059[facility]annCHEM IRVAG9859-99-49 06:09:0023[facility]annCHE[facility] NTACN0548-41-16 06:09:001.9[facility]annCHE[facility] VZFZS3161-81-62 06:09:007.7 [facility]CHE[facility] ADWTD9999-54-15 06:09:001.6[facility]annCHEM PANEL 2018-08-04 06:09:48088Udornlwx HermannCHEM XWKLF6724-77-66 06:09:06396Obbdtcan HermannCHEM JWEZT7819-19-65 06:09:007.8[facility]annCHEM NYMSM6620-22-18 06:09:0024[facility]annCHEM KIRET0099-93-94 06:09:30688Klixruen HermannCHEM YZLXV0352-20-38 06:09:003.3[facility]annCHEM UJNZB6354-94-49 06:09:0013 [facility]annCHEM DWONT8961-39-51 06:09:0099[facility]annCHEM PANEL 2018-08-04 06:09:000.89[facility]annCHEM DECDG9197-97-78 06:09:0013.3[facility] HermannDRUG KQPEFZ6297-62-13 06:09:00Negative *NA*(08/04/18 1:09 AM)[facility]annDR[facility] UOSXDZ2249-05-60 06:09:00Negative *NA*(08/04/18 1:09 AM)[facility]annDR[facility] KAFBHZ1645-81-92 06:09:00Negative *NA*(08/04/18 1:09 AM)[facility]annDR[facility] KSMGTN2871-89-83 06:09:00Positive *ABN*(08/04/18 1:09 AM)[facility]annDR[facility] UTMGFO9260-20-11 06:09:00Negative *NA*(08/04/18 1:09 AM)[facility]annDR[facility] BGWATW6341-53-49 06:09:00Negative *NA*(08/04/18 1:09 AM)[facility]annDR[facility] TUJKIS5988-78-96 06:09:00Negative *NA*(08/04/18 1:09 AM)[facility]annDR[facility] LMFJGI3644-77-54 06:09:00See Note (08/04/18 1:09 AM)[facility] LKHWXJOFIS6174-72-56 06:09:009.3[facility] QrhgwgdLZZOCSUMUE0227-04-37 06:09:001.1 [facility] EtkrakaFARPFCMYFE8989-04-60 06:09:0010.6[facility]annHEMATOLOGY 2018-08-04 06:09:001.6[facility] UjuuyluSIDHJKQKXO3099-97-08 06:09:001.4[facility] EosbxrgHTNQBXUMZU7471-72-26 06:09:000.4[facility] IywiethHPSYFJPLLR3118-74-47 06:09:000.4[facility] KxwaozlUBYGCIYYLG3542-28-47 06:09:0042.9[facility] JUECBDEFJW6133-99-33 06:09:0036.1[facility] SetksxoKXFHJVLIEU8858-80-97 06:09:00* Test Item Value Reference Range Interpretation Comments PT (test code = PT) 14.2 s 12.0-14.7 [facility] XvzldpbGNAEFGOFDL4586-53-40 06:09:00* Test Item Value Reference Range Interpretation Comments INR (test code = INR) 1.12 1 0.85-1.17 [facility] CxiexjkUAKOSOKEWY8171-72-85 06:09:00* Test Item Value Reference Range Interpretation Comments PTT (test code = PTT) 36.4 s 22.9-35.8 [facility] RldrrzjNKEWRVRKDF8603-45-53 06:09:008.3[facility]annHEMATOLOGY 2018-08-04 06:09:0078[facility] DqmctqbMFDWDURKQK0414-25-95 06:09:0079.3[facility] IzpnhavYQLZOJSFZO8586-00-02 06:09:00* Test Item Value Reference Range Interpretation Comments MCH (test code = MCH) 24.9 pg 27.0-31.0 [facility] DkbmkmvZZZERFVLCE5657-70-58 06:09:0031.4[facility]annHEMATOLOGY 2018-08-04 06:09:0018.5[facility] ItrkcjmGJEDOIZSQB3622-14-32 06:09:008.3[facility] FwpcerwVWOREYGWOF4801-11-41 06:09:003.8[facility] QeyqsvsXXQFASOEHG8524-47-34 06:09:003.34[facility] KaapicbKWWQJYELBA1840-43-77 06:09:0026.5[facility] HFKZQAVLDV2601-32-92 06:09:15118Yjvncido YzphmkpYBPPNRQYLB4986-54-06 06:09:00 0.362[facility] KUHMV1664-26-46 06:09:00Large *ABN*(08/04/18 1:09 AM)[facility] VILSL2557-54-39 06:09:00Negative (08/04/18 1:09 AM) [facility] MRCOZ1443-99-99 06:09:005[facility] BKZFC3012-26-92 06:09:0012[facility] XGOMR6650-35-54 06:09:29311 [facility] QFLGC6179-65-86 06:09:00Negative (08/04/18 1:09 AM) [facility] ZKINU7808-94-85 06:09:00Negative *NA*(08/04/18 1:09 AM) [facility] TIXDF7359-31-17 06:09:00* Test Item Value Reference Range Interpretation Comments UA Spec Grav (test code = UA Spec Grav) 1.013 1 [facility] AGOGC1993-50-62 06:09:00Clear (08/04/18 1:09 AM) [facility] KAKYN6223-03-04 06:09:00Yellow *NA*(08/04/18 1:09 AM) [facility] WIDWB2326-54-21 06:09:00* Test Item Value Reference Range Interpretation Comments UA pH (test code = UA pH) 6.0 1 5.0-8.0 [facility]annCHEM IXGFF7792-45-63 08:02:001.7[facility]annCHEM PANEL 2018-06-05 08:02:92992Yqbgghnl HermannCHEM OQDAJ1346-34-56 08:02:003.5[facility]annCHEM JUDJO2821-29-85 08:02:0026[facility]annCHEM LFEPZ1373-57-64 08:02:69571Dyvileby HermannCHEM CXSOP2432-90-38 08:02:007.8[facility]annCHEM AOWGO0715-00-77 08:02:000.89[facility]annCHEM OYKWL5742-90-36 08:02:91157 [facility]CHE[facility] ZAPJY8293-53-78 08:02:0091[facility]annCHEM PANEL 2018-06-05 08:02:0011[facility]annCHEM IXURR1011-52-61 08:02:008.5[facility] FetfiyyMZHVOWIAGG6459-70-20 08:02:0068[facility] FovflwoIVVQGZTLNS6237-66-53 08:02:009.5[facility] MkyuqfhXTXPTZRLPX3222-19-92 08:02:0084.3[facility] [place] ETWPWVJLHT1064-28-85 08:02:0029.3[facility] SqkszqsFOJMJJLIXZ8978-01-26 08:02:00 32.1[facility] TugzbwuHUXQRCWFPS3917-74-57 08:02:0020.5[facility]annHEMATOLOGY 2018-06-05 08:02:00* Test Item Value Reference Range Interpretation Comments MCH (test code = MCH) 27.1 pg 27.0-31.0 [facility] TyanujnJNARCMLTVL5643-66-00 08:02:009.4[facility]annHEMATOLOGY 2018-06-05 08:02:003.0[facility] FzhaeajPBKOWHFUEX1526-66-38 08:02:003.48[facility] DpomrvpVCEVENDFAU6558-66-65 08:02:0056.8[facility] EbyhewbYBTQPQVQDP8127-12-64 08:02:0018.1[facility] EtfidffQILNRFBYRU4849-70-46 08:02:0017.9[facility] BFVWMGMCQI6779-17-52 08:02:006.5[facility] RvxlvncAIFETRIEJG6429-53-26 08:02:000.7 [facility] UlotutfWSIVTSGTZX6872-88-88 08:02:001.7[facility]annHEMATOLOGY 2018-06-05 08:02:000.2[facility] UxkrhzsENZHNYDYGR7396-53-65 08:02:000.5[facility] JtduidbDWNERMZDTA8908-52-56 08:02:000.5[facility] HermannPARATHYROID PROFILE 2018-06-04 22:55:001.06[facility] HermannPARATHYROID RKNPXBK9071-19-63 22:55:00 1.07[facility]annCHEM PHAAD8600-19-68 18:00:0069.0[facility]annCHEM PANEL 2018-06-04 18:00:59986Zpzxxxlg HermannCHEM JJMRE0486-43-55 18:00:008.3[facility]annCHEM TCWSF8141-19-73 18:00:0028[facility]annCHEM DIYDI8415-20-72 18:00:006.9[facility]annCHEM HYYSU2858-91-13 18:00:79789Stmlqzpe HermannCHEM AJYEV3968-40-39 18:00:000.83[facility]annCHEM WSLNG3818-34-28 18:00:003.3 [facility]annCHEM MIXIX9030-74-58 18:00:78494Ohxrndds HermannCHEM PANEL 2018-06-04 18:00:0011[facility]annCHEM UPTPJ5425-09-14 18:00:87924Rrbwmthg QpwiylmBYRPYFVISO2669-43-85 18:00:008.8[facility] TxorhziXSTZLYRMIN2314-38-45 18:00:0033.5[facility] VidlifaQIXTDUJRVU0057-30-34 18:00:0026.4[facility] KJTPHGKDJO0464-02-26 18:00:0081.8[facility] YcdihynLNFUQUERYL6437-58-41 18:00:00 19.8[facility] AetruqrVCEKIJRTSH8819-39-44 18:00:00* Test Item Value Reference Range Interpretation Comments MCH (test code = MCH) 27.4 pg 27.0-31.0 [facility] JchvivtGMZOASBUXP2269-78-75 18:00:0051[facility]annHEMATOLOGY 2018-06-04 18:00:002.3[facility] YjlfdpnTGMGYWIRWS3677-29-40 18:00:003.23[facility] DjencwaFPXWJHPGHF7661-15-72 18:00:009.1[facility] TsiqrqlOOWACJWRLL1832-64-47 18:00:0015.2[facility] JvtdosrWCMTDJYTDO5535-22-22 18:00:001.3[facility] SPPDOTWQZJ0074-97-91 18:00:000.5[facility] NvqygimYIJOARSIFN5234-67-03 18:00:006.1 [facility] KlcwegoPAZTIPKFVX7449-48-57 18:00:000.9[facility] HermannHEMATOLOGY 2018-06-04 18:00:000.1[facility] TmslcboBPJNWIXILM2319-67-65 18:00:000.3[facility] KnpcrtaJBTSWDUBYD5088-01-06 18:00:0019.8[facility] GnzyompWNTUMVPTIU5814-71-20 18:00:0058.0[facility] HermannBODY RNGYGJ5884-22-27 17:05:00Ascites *NA*(06/04/18 12:05 PM)[facility]annBODY GAVAPQ3423-54-98 17:05:000.7[facility] HermannBODY PYFAHT4536-76-75 17:05:00Moderate Cloudy *ABN*(06/04/18 12:05 PM)[facility] BODY PPXIHH4335-80-90 17:05:1026998Oolbktce HermannBODY KJIKYG4720-19-99 17:05:00Red *ABN*(06/04/18 12:05 PM)[facility]annBODY VXKZPL5629-35-06 17:05:55298Ncurokqy HermannBODY SFSNJQ5895-28-61 17:05:00Ascites (06/04/18 12:05 PM)[facility]annBODY RRQWMK9085-22-92 17:05:0019[facility]annBODY FLUIDS 2018-06-04 17:05:000[facility]annBODY QXVVZH2550-05-78 17:05:0081[facility]annBODY QNNUMQ2108-60-36 17:05:82976Jalpbilc HermannBODY GWHXXW8818-58-26 17:05:00Ascites *NA*(06/04/18 12:05 PM)[facility]annBODY DTHBZP1122-40-81 17:05:00Ascites *NA*(06/04/18 12:05 PM)[facility] HermannBODY HBPCUX9049-01-69 17:05:002.9[facility] HermannCHEM SZWRF3602-04-42 19:58:63303.0[facility] [place] CHEM OFMXM5248-93-79 19:58:0073[facility]annCHEM OIGNL7732-98-25 19:58:0029 [facility]annCHEM UOWHT8424-85-47 19:58:01487Nafhdoha HermannCHEM PANEL 2018-06-03 19:58:007.1[facility] HermannCHEM EUPMJ2121-96-70 19:58:003.6[facility] HermannCHEM APXDR3280-61-86 19:58:83097Vjmhhnpc HermannCHEM RKBVQ2345-27-28 19:58:67015Pfwtoixw HermannCHEM MCUJI3849-89-71 19:58:0010[facility] HermannCHEM YCMNL8259-20-12 19:58:001.18[facility] HermannCHEM BLTPG1659-40-63 19:58:008.6 [facility] UdigpasSPKSUINELO4332-25-64 19:58:009.4[facility] HermannHEMATOLOGY 2018-06-03 19:58:0028.1[facility] OnvntytFOUBTRZSZG8482-49-20 19:58:0082.2[facility] YiuefelLAZCJXBQLI1903-74-19 19:58:00* Test Item Value Reference Range Interpretation Comments MCH (test code = MCH) 27.5 pg 27.0-31.0 [facility] OkvejdmCOJGNXQDJT3698-52-43 19:58:0033.4[facility]annHEMATOLOGY 2018-06-03 19:58:0019.9[facility] AgznnlnPVCTNUHMWB3712-22-48 19:58:003.2[facility] DjluazbZYGOMMKCQU7673-96-19 19:58:003.42[facility] PstvupiNSCUSFGTHU2138-49-18 19:58:0059[facility] PwbjvxhGEWYQWPVKU5318-41-70 19:58:008.7[facility] [place] MLAKPHUXDV7195-56-51 19:58:002.0[facility] KskvduyJJWAYVPLFH7431-44-13 19:58:000.5 [facility] HkmjncoBZTAJQDVNA1139-30-22 19:58:000.4[facility]annHEMATOLOGY 2018-06-03 19:58:000.2[facility] FyindjbEEUEUWWKEJ8021-82-69 19:58:000.9[facility] RnmmielSLFOSHFJIP0081-27-43 19:58:0013.5[facility] SppbyrzNZABDSJHWO2442-37-17 19:58:006.3[facility] IdwfvdxVKRFHDVQTS7032-98-36 19:58:0064.6[facility] [place] LLUQERCCYD5124-56-21 19:58:0014.7[facility] EeykysoQBWTHKACAN0332-13-61 19:58:001+ (06/03/18 2:58 PM)[facility] XkeyfmxEAUWIJMRZB4114-85-20 19:58:00Rare *ABN*(06/03/18 2:58 PM)[facility] YvlblrvCGJFOIHEBK9244-54-30 19:58:001+ *ABN*(06/03/18 2:58 PM)[facility] ShmcxfnWLQPSNONOD3601-97-13 19:58:00Normal (06/03/18 2:58 PM)[facility] OtswzyiMLTWXGILGW4786-07-09 19:58:00See Note (06/03/18 2:58 PM)[facility] HermannPARATHYROID SGOVUZD2779-30-48 19:58:001.00[facility] HermannPARATHYROID SJIHNIF2461-53-86 19:58:001.00[facility] HermannANEMIA STUDY 2018-06-03 09:54:0057[facility] HermannANEMIA TWMXG9772-07-24 09:54:0044[facility] HermannANEMIA KTAET4213-35-15 09:54:0014Mem[facility] HermannANEMIA BBYUL0737-79-37 09:54:48463Npzskect HermannANEMIA JXCPB2642-49-03 09:54:51754Yncxyhxp [place] SPECIAL VNKROUNJP5878-91-92 09:54:000.09[facility] HermannTUMOR PDOJXGG7718-94-45 09:54:003.3[facility] HermannTUMOR EGKOVWK0420-73-87 09:54:005.0[facility] CHEM ZIYKY4517-45-23 16:54:72283.0[facility] HermannPARATHYROID FRFCEGR8771-44-56 16:54:000.95[facility] HermannPARATHYROID VRDLHNB1639-47-61 16:54:000.94[facility] HermannCHEM PKSMO5786-37-60 10:44:001.2[facility] HermannCHEM AXVSQ9556-56-20 10:44:002.8[facility] HermannCHEM IBKJU8189-34-35 10:44:00* Test Item Value Reference Range Interpretation Comments B/C Ratio (test code = B/C Ratio) 15 1 6-25 [facility]annCHEM FZCZQ6415-88-73 10:44:0064[facility]annCHEM PANEL 2018-06-02 10:44:0045[facility] HermannCHEM KCUMV9869-70-22 10:44:001.4[facility] HermannCHEM CXZNY8191-18-26 10:44:0015[facility] HermannCHEM CYVKY7059-38-50 10:44:00* Test Item Value Reference Range Interpretation Comments A/G Ratio (test code = A/G Ratio) 0.3 1 0.7-1.6 [facility]annCHEM ZUVPT8445-05-87 10:44:001.7[facility]annCHEM PANEL 2018-06-02 10:44:007.3[facility] HermannCHEM PSLFD4472-28-87 10:44:005.6[facility] LdgvgclYJKOCQCWLL2945-59-45 10:44:00* Test Item Value Reference Range Interpretation Comments INR (test code = INR) 1.34 1 0.85-1.17 [facility]ZGPRUEDTX0464-[facility]-14 10:44:00* Test Item Value Reference Range Interpretation Comments PT (test code = PT) 16.3 s 12.0-14.7 [facility] HospitalOtidokbNEEBZPIMOK2877-39-17 10:44:00* Test Item Value Reference Range Interpretation Comments PTT (test code = PTT) 36.5 s 22.9-35.8 [facility] HermannCHEM GGYPO0582-90-27 02:13:001.1[facility] HermannBLOOD BANK FBGMHPS9008-28-45 01:02:00Negative (06/01/18 8:02 PM)[facility]annUR[facility] AND EMSPB9767-26-74 21:22:00Positive *ABN*(06/01/18 4:22 PM)[facility] HermannCHEM TZXBZ9903-20-22 16:01:0049[facility] HermannCHEM ZAENG4720-18-12 16:01:0015 [facility]annCHEM DTLWT6522-57-38 16:01:0074[facility] HermannCHEM PANEL 2018-06-01 16:01:001.2[facility] HermannCHEM MMRSF7182-07-63 16:01:001.9[facility] HermannCHEM USVGT1142-12-17 16:01:008.2[facility] HermannCHEM BQJAG9658-22-88 16:01:006.3[facility] HermannCHEM VXCRH1103-87-62 16:01:00* Test Item Value Reference Range Interpretation Comments A/G Ratio (test code = A/G Ratio) 0.3 1 0.7-1.6 [facility]annCHEM WWBZE3356-62-53 16:01:00* Test Item Value Reference Range Interpretation Comments B/C Ratio (test code = B/C Ratio) 13 1 6-25 [facility] HermannCHEM XGRVE5596-13-11 16:01:80799Ostcvmoy HermannHEMATOLOGY 2018-06-01 16:01:00* Test Item Value Reference Range Interpretation Comments INR (test code = INR) 1.18 1 0.85-1.17 [facility] HdqeqonUYDSOLNNIR5095-57-31 16:01:00* Test Item Value Reference Range Interpretation Comments PT (test code = PT) 14.8 s 12.0-14.7 [facility] TngtpuiZCEFPOKOIQ1922-33-56 16:01:00* Test Item Value Reference Range Interpretation Comments PTT (test code = PTT) 33.9 s 22.9-35.8 [facility]UR[facility] AND PXEYG0408-70-71 16:01:007[facility]UR[facility] AND YTAFW6782-10-79 16:01:00Negative (06/01/18 11:01 AM)[facility]UR[facility] AND CLAGT0386-65-21 16:01:0097[facility]UR[facility] AND MGCLC1797-77-73 16:01:00 Negative (06/01/18 11:01 AM)[facility] AND FPFCH4066-55-95 16:01:00 Large *ABN*(06/01/18 11:01 AM)[facility] BOMQA5966-99-01 16:01:00 * Test Item Value Reference Range Interpretation Comments UA Spec Grav (test code = UA Spec Grav) 1.020 1 [facility] WEDJE5558-80-37 16:01:00Slight *ABN*(06/01/18 11:01 AM) [facility] SXDHI3257-03-60 16:01:00Dark Yellow (06/01/18 11:01 AM) [facility] RKOLH1342-96-98 16:01:00Negative *NA*(06/01/18 11:01 AM)[facility] POKMQ4034-23-24 16:01:00Small *ABN*(06/01/18 11:01 AM)[facility] PWMAA8238-79-00 16:01:00* Test Item Value Reference Range Interpretation Comments UA pH (test code = UA pH) 6.0 1 5.0-8.0 [facility]UR[facility] AND OJADJ3859-06-74 16:01:00Negative *NA*(06/01/18 11:01 AM)[facility]- CT ABD PELVIS W/OZOL2754-28-93 18:57:00 Name: JOCELIN CORREA [facility] : 1970 Age/S: 48 / M [address] [facility] Unit #: [id number] Loc: [place] [address] Phys: Giovanna Syed MD Acct: [id number] Di s Date: Status: REG ER PHONE #: Exam Date: 05/05/20181826 FAX #: Reason: abd pain EXAMS: CPT CODE: [id number] CT ABD PELVIS W/CONT 96194 HISTORY: Abdominal pain. COMPARISON: December 18, 2017. CT of abdomen and pelvi s with IV contrast: 100 mL of Isovue-370. Automated exposure control CT of abdomen: The lung bases are clear. H epatic parenchyma is enhancing homogeneously. The liver is small nodular shrunken consistent with cirrhosis. No discrete mass. Portal vein is pat ent. Gallbladder is without radiopaque stones. The spleen is not enlarged. No large varices. Stomach distended incompletely and is limite d. No varices. Pancreas enhances homogeneously. Unremarkable adr enals. Kidneys are free from hydroureteronephrosis. Homogeneous e nhancement. Punctate 1 to 2 mm left lower pole calyceal stone as well wit hin the right interpolar region. Bilateral excretion is not seen likely d ue to timing of imaging. No pathologic adenopathy. Unremark able well-opacified vasculature. No bowel obstruction or colitis. Mild thickening of the small bowel loops which could represent enteritis or this could represent sequela of moderate ascites. The large bowel is n ot thickened. CT PELVIS: Appendix is normal. Pelvic bowel loops are unobstructed. Moderate ascites. Urinary bl adder is moderately distended. Prostate is not enlarged. No pelvic patho logic adenopathy. No free air or abscess. Subcutaneous tissues co ursing mild gynecomastia bilaterally. No lytic or blastic lesions are not ed within the bony skeleton. IMPRESSION: Cirrh otic liver with moderate ascites. No splenomegaly or large PAGE 1 Signed Report (CONTINUED) Name: JOCELIN CORREA [facility] : 1970 [age]/S: [age] / M [address] [facility] Unit #: [id number] Loc: [place] [address] Phys: Sanya Syed MD Acct: [id number] Dis Date: Status: REG ER PHONE #: [phone] Exam Date: 05/05/20181826 FAX #: [phone] Reason: abd pain EXAMS: CPT CODE: [id number] CT ABD PELVIS W/CONT 81672 <Continued> varices. No hydroureteronephrosis. Punctate bilateral 1 [...] CA) 8.1 mg/dL 8.5-10.1 L HEPATIC FUNCTION [id number] 16:39:00* Test Item Value Reference Range Interpretation [...] reference range due to change in reagent. [id number] 16:39:00* Test Item Value Reference Range Interpretation Comments LIPASE (test code = LIP) 72 U/L 73.0-393.0 L XNKWGQRR-G5154-26-23 16:39:00* Test Item Value Reference Range Interpretation Comments TROPONIN-I (test code = TROPI) <0.015 ng/mL 0-0.045 N OCMYQNV4158-70-87 16:39:00* Test Item Value Reference Range Interpretation [...] ANADDITIONAL CHARGE TO THE PATIENT. BASIC METABOLIC [id number] 16:30:00* Test Item Value Reference Range Interpretation [...] code = CA) mg/dL 8.5-10.1 HEPATIC FUNCTION [id number] 16:30:00* Test Item Value Reference Range Interpretation [...] TOTAL (test code = ALKP) IUnit/L 45-117 EJGCKL5636-50-12 16:30:00* Test Item Value Reference Range Interpretation Comments LIPASE (test code = LIP) U/L 73.0-393.0 CZLHEYEH-[id number] 16:30:00* Test Item Value Reference Range Interpretation Comments TROPONIN-I (test code = TROPI) ng/mL 0-0.045 KDMHRVO2451-31-16 16:30:00* Test Item Value Reference Range Interpretation Comments ALCOHOL (test code = ALC) mg/dL 0-3 CBC W/O [id number] 16:10:00* Test Item Value Reference Range Interpretation [...] = MPV) 10.0 fL 6.7-11.0 N CARDIAC YDQIDNH3328-83-96 23:31:00[facility].02[facility] TJRQIWD4384-90-26 23:31:0030[facility]annCHEM VNOCO1703-78-75 23:31:97723Mflerqom HermannCHEM NUEYJ2952-51-54 23:31:009[facility]annCHEM ACCPE1971-91-87 23:31:000.78 [facility]annCHE[facility] AJJYN3372-39-71 23:31:0064[facility]annCHEM PANEL 2018-04-18 23:31:000.4[facility]annCHEM IVMTL4449-28-15 23:31:0015[facility]annCHEM YDIZM5006-26-09 23:31:003.7[facility]annCHEM QDQYT2127-16-16 23:31:30035Ivxybzki HermannCHEM KHVWB4303-90-25 23:31:20743Uortuovf HermannCHEM AXRJT7704-72-02 23:31:003.7[facility]annCHEM SYFLE2129-71-59 23:31:007.5 [facility]annCHE[facility] IGPBQ4416-08-86 23:31:008.7[facility]annCHEM PANEL 2018-04-18 23:31:0027[facility]annCHEM ZGRHC7654-74-87 23:31:0019[facility]annCHEM YWUVI9864-00-84 23:31:0098[facility]annCHEM EVUZJ1224-02-60 23:31:00* Test Item Value Reference Range Interpretation Comments B/C Ratio (test code = B/C Ratio) 12 09-04 [facility]annCHE[facility] YRPXU3821-11-15 23:31:00* Test Item Value Reference Range Interpretation Comments A/G Ratio (test code = A/G Ratio) 1.0 1 0.7-1.6 [facility]annCHE[facility] JHAPB0434-43-27 23:31:009.7[facility]annCHEM PANEL 2018-04-18 23:31:003.8[facility] EimkoejOIWYQIQTTORL5524-15-90 23:31:009.7[facility] KvfwfgrWRHFZVHGGESM1386-39-32 23:31:00* Test Item Value Reference Range Interpretation Comments B/C Ratio (test code = B/C Ratio) 12 09-04 [facility] VefuomfKDHRLVHSBUIS0704-05-94 23:31:003.8[facility] HermannELECTROLYTES 2018-04-18 23:31:00* Test Item Value Reference Range Interpretation Comments A/G Ratio (test code = A/G Ratio) 1.0 1 0.7-1.6 [facility] PwmqxbvOQIBNMMJWYFV0607-34-53 23:31:0098[facility] HermannELECTROLYTES 2018-04-18 23:31:009[facility] BystayiZOLELTOMBWSJ3578-14-79 23:31:000.78[facility] UqsvnlpGMSVNKUEZQHE8283-59-43 23:31:93695Kmzuuvmq OhlycnxNPBGMYYAIROJ5487-43-18 23:31:003.7[facility] ScsaudwCXGHPDTMYHLH3836-92-35 23:31:58550Fmlpyryr [place] UBMOZVHUXLBH7115-08-86 23:31:0027[facility] FyhyvemYHVNJIRONBJX0873-04-36 23:31:00 8.7[facility] ZtrrypgZXPNEYFINUYX0379-24-52 23:31:007.5[facility] [place] EPVLPJAKMHAL4208-02-27 23:31:003.7[facility] CeoxdmgELFZZLMDVCJO3968-06-61 23:31:0019[facility] IfwxfuhQNWNOOWBCMZE6820-20-68 23:31:0015[facility] LKISZABJIDPE9700-98-73 23:31:0064[facility] AhzdsezPPHRUBYCEANL9192-82-24 23:31:00 0.4[facility] NdzuvlrNKYMXXRWEIGK4731-89-79 23:31:53449Eowjfjji HermannHEMATOLOGY 2018-04-18 23:31:009.3[facility] SyxkardGQOEKSURAI2099-40-90 23:31:004.63[facility] MhduwypLSEPEOCMZR7584-75-26 23:31:0014.2[facility] SypacxcOKYRAATSDE1248-45-66 23:31:0041.6[facility] ObymuieCCTXGVPEOR1970 23:31:0089.8[facility] [place] ZKQMUDMIIO6572-48-89 23:31:00* Test Item Value Reference Range Interpretation Comments MCH (test code = MCH) 30.5 pg 27.0-31.0 [facility] CryheteZQZEEVKZWX7381-74-44 23:31:0034.0[facility] HermannHEMATOLOGY 2018-04-18 23:31:0014.5[facility] BavvxlaJTRBJTSKFU6154-32-29 23:31:02473Xnyrtyvg GtfyqanDNGWPGKMXT5286-40-74 23:31:009.3[facility] ZyggfdwWFGLVNLEZU4457-50-29 23:31:00* Test Item Value Reference Range Interpretation Comments INR (test code = INR) 1.05 1 0.85-1.17 [facility] JlhowvaYVNFQDCGDT4181-56-12 23:31:00* Test Item Value Reference Range Interpretation Comments PT (test code = PT) 13.5 s 12.0-14.7 [facility] YrauameRTZJGSAEXP1990-81-42 23:31:00* Test Item Value Reference Range Interpretation Comments PTT (test code = PTT) 29.1 s 22.9-35.8 [facility] HjdskqqNURVFQNDOW2227-96-19 23:31:0069.7[facility] HermannHEMATOLOGY 2018-04-18 23:31:0023.9[facility] QheftgfFMTYWOOQPD3351-13-79 23:31:004.6[facility] BxnxteuBEVNYXMQFD3178-33-72 23:31:001.5[facility] TwlstubDKWIZFATXK5868-29-49 23:31:000.3[facility] XujuzimDPUFBROOBE9220-06-70 23:31:006.5[facility] Levon FUJDLADCDH5493-25-60 23:31:002.2[facility] YtorbcjQTOGODNNXD2768-09-13 23:31:000.4 [facility] JbiilbrMCMTUBTRJC8089-49-83 23:31:000.1[facility] 2018-04-18 23:31:00Clear (04/18/18 5:31 PM)[facility] 2018-04-18 23:31:00* Test Item Value Reference Range Interpretation Comments UA Spec Grav (test code = UA Spec Grav) 1.010 1 [facility] [id number] 23:31:00* Test Item Value Reference Range Interpretation Comments UA pH (test code = UA pH) 8.0 1 5.0-8.0 [facility] QTXIF7481-83-81 23:31:00Negative (04/18/18 5:31 PM) [facility] UPJPD2759-59-68 23:31:00Negative *NA*(04/18/18 5:31 PM) [facility] QEBZK5952-12-47 23:31:00Negative *NA*(04/18/18 5:31 PM) [facility] JBZYR6624-11-55 23:31:00Negative *NA*(04/18/18 5:31 PM) [facility] LQMRD1552-44-79 23:31:00Negative (04/18/18 5:31 PM) [facility] VYHAV9811-38-14 23:31:00Negative (04/18/18 5:31 PM) [facility]UR[facility] AND BAXSA9775-89-41 23:31:00Trace *ABN*(04/18/18 5:31 PM) [facility]URINE AND EOUZB2270-94-44 23:31:006[facility] XVENP9614-07-52 23:31:001[facility] IGHDE0513-99-20 23:31:006 [facility] YFXGK6122-61-78 21:06:00* Test Item Value Reference Range Interpretation [...] CA) 8.1 mg/dL 8.5-10.1 L HEPATIC FUNCTION [id number] 21:06:00* Test Item Value Reference Range Interpretation [...] reference range due to change in reagent. DXJRJZMNR5235-89-78 21:06:00* Test Item Value Reference Range Interpretation Comments MAGNESIUM (test code = MAG) 1.5 mg/dL 1.8-2.4 L IDPZJOVW-S3868-37-06 21:06:00* Test Item Value Reference Range Interpretation Comments TROPONIN-I (test code = TROPI) <0.015 ng/mL 0-0.045 N PROTHROMBIN [id number] 20:45:00* Test Item Value Reference Range Interpretation [...] (2.5-3.5) IS PATIENT ON ANTICOAGULANTS? NTHROMBOPLASTIN TIME GCPXDKJ6531-32-44 20:45:00* Test Item Value Reference Range Interpretation Comments THROMBOPLASTIN TIME PARTIAL (test code = PTT) 40.7 seconds 25.0-36. 5 H IS PATIENT ON ANTICOAGULANTS? NBASIC METABOLIC [id number] 20:40:00* Test Item Value Reference Range Interpretation [...] code = CA) mg/dL 8.5-10.1 HEPATIC FUNCTION [id number] 20:40:00* Test Item Value Reference Range Interpretation [...] TOTAL (test code = ALKP) IUnit/L 45-117 UKRUJKGGQ3863-32-24 20:40:00* Test Item Value Reference Range Interpretation Comments MAGNESIUM (test code = MAG) mg/dL 1.8-2.4 PTYTOZBI-U2609-84-06 20:40:00* Test Item Value Reference Range Interpretation Comments TROPONIN-I (test code = TROPI) ng/mL 0-0.045 CBC W/O [id number] 20:37:00* Test Item Value Reference Range Interpretation [...] fL 6.7-11.0 N - CT HEAD/BRAIN W/O [id number] 20:09:00 Name: JOCELIN CORREA [facility] : 1970 Age/S: 48 / M [address] [facility] Unit #: [id number] Loc: [place] [address] Phys: MARYAN ROBERTS MD Acct: [id number] Dis Date: Status: REG PHONE #: [phone] Exam Date: 04/18/20182007 FAX #: [phone] Reason: fall, head trauma, blood in ear EXAMS: CPT CODE: [id number] CT HEAD/BRAIN W/O CONT 81414 REASON FOR EXAM: fall, head trauma, blood in ear EXAM ORDER DATE: 04/18/2018 7:49 PM Ordering M.D.: MARYAN ROBERTS MD PROCEDURE: - CT HEAD/BRAIN [...] Multani M.D. CC: MARYAN ROBERTS MD Technologist:ELIAZAR MERCEDES RT(R) CT CTDI: DLP: Trnscb Date/Time: 04/18/2018 (2008) t.LISAR.VTL Orig Print D/T: S: 04/18/2018 (2012) CTDI: DLP: PAGE 1 Signed Report - US ABDOMEN [id number] 07:09:00 Name: CHELLY CORREA [facility] : 1970 Age/S: 48 / M [address] [facility] Unit #: [id number] Loc: [place] [address] Phys: Giovanna Rees MD Acct: [id number] Dis Date: Status: ADM IN PHONE #: [phone] Exam Date: 04/09/2018 0027 FAX #: [phone] Reason: abd pain. evaluate lesion in ascites EXAMS: CPT CODE: [id number] US ABDOMEN COMPLETE 10367 REASON FOR EXAM: abd pain. evaluate lesion [...] Technologist: GAIL SHIPLEY RDMS Trnscb Date/Time: 04/10/2018 (708) Hitesh Orig Print D/T: S: 04/10/2018 (0712) Probe: PAGE 1 Signed Report CBC W/AUTO [id number] 06:40:00* Test Item Value Reference Range Interpretation [...] = MDIFF) NO, ONLY SCAN NEEDED DIFFERENTIAL [id number] 06:40:00* Test Item Value Reference Range Interpretation Comments STAIN ACCEPTABILITY (test code = STN ACCEPTABLE) STAIN ACCEPTABLE POLYCHROMASIA (test code = POLC) 2+ ANISOCYTOSIS (test code = ANISO) 2+ MACROCYTOSIS (test code = MACR) 2+ PLATELET ESTIMATE (test code = PLTEST) DECREASED PLATELET MORPHOLOGY (test code = PLTMORPH) NORMAL BASIC METABOLIC [id number] 06:20:00* Test Item Value Reference Range Interpretation [...] code = CA) 7.8 mg/dL 8.5-10.1 L [id number] 06:20:00* Test Item Value Reference Range Interpretation Comments MAGNESIUM (test code = MAG) 1.4 mg/dL 1.8-2.4 L CBC W/AUTO [id number] 06:17:00* Test Item Value Reference Range Interpretation [...] = MDIFF) NO, ONLY SCAN NEEDED DIFFERENTIAL [id number] 06:17:00* Test Item Value Reference Range Interpretation Comments STAIN ACCEPTABILITY (test code = STN ACCEPTABLE) CABOT RINGS (test code = CAB) MORPHOLOGY COMMENT (test code = MOC) PLATELET ESTIMATE (test code = PLTEST) PLATELET MORPHOLOGY (test code = PLTMORPH) CBC W/AUTO [id number] 06:17:00* Test Item Value Reference Range Interpretation [...] = MDIFF) NO, ONLY SCAN NEEDED DIFFERENTIAL [id number] 06:17:00* Test Item Value Reference Range Interpretation Comments STAIN ACCEPTABILITY (test code = STN ACCEPTABLE) CABOT RINGS (test code = CAB) MORPHOLOGY COMMENT (test code = MOC) PLATELET ESTIMATE (test code = PLTEST) PLATELET MORPHOLOGY (test code = PLTMORPH) CBC W/AUTO [id number] 06:17:00* Test Item Value Reference Range Interpretation [...] = MDIFF) NO, ONLY SCAN NEEDED DIFFERENTIAL [id number] 06:17:00* Test Item Value Reference Range Interpretation Comments STAIN ACCEPTABILITY (test code = STN ACCEPTABLE) MORPHOLOGY COMMENT (test code = MOC) PLATELET ESTIMATE (test code = PLTEST) PLATELET MORPHOLOGY (test code = PLTMORPH) CBC W/AUTO [id number] 06:17:00* Test Item Value Reference Range Interpretation [...] = MDIFF) NO, ONLY SCAN NEEDED DIFFERENTIAL [id number] 06:17:00* Test Item Value Reference Range Interpretation Comments STAIN ACCEPTABILITY (test code = STN ACCEPTABLE) CABOT RINGS (test code = CAB) MORPHOLOGY COMMENT (test code = MOC) PLATELET ESTIMATE (test code = PLTEST) PLATELET MORPHOLOGY (test code = PLTMORPH) BASIC METABOLIC [id number] 06:12:00* Test Item Value Reference Range Interpretation [...] CALCIUM (test code = CA) mg/dL 8.5-10.1 HWRTKNPLL4563-29-25 06:12:00* Test Item Value Reference Range Interpretation Comments MAGNESIUM (test code = MAG) mg/dL 1.8-2.4 PROTHROMBIN [id number] 06:12:00* Test Item Value Reference Range Interpretation [...] PATIENT ON ANTICOAGULANTS? N- CT ABD PELVIS W/[id number] 13:44:00 Name: CHELLY CORREA [facility] : 1970 Age/S: 48 / M [address] [facility] Unit #: [id number] Loc: [place] [address] Phys: Fransisco Valdez MD Acct: [id number] Di s Date: Status: REG ER PHONE #: [phone] Exam Date: 04/09/2018 6742 FAX #: Reason: upper abd pain EXAMS: CPT CODE: [id number] CT ABD PELVIS W/CONT 76050 EXAM: CT of the abdomen a nd [...] Mandujano RT(R),(MR),(CT) CTDI: DLP: Trnscb Date/Time: 04/09/2018 (0935) Matthew.GRW Orig Print D/T: S: 04/09/2018 (9466) CTDI: DLP: PAGE 1 Signed Report URINALYSIS [id number] 13:28:00* Test Item Value Reference Range Interpretation [...] per LPF NONE-FEW Urine Source? Clean CatchURINALYSIS [id number] 12:46:00* Test Item Value Reference Range Interpretation [...] HPF 0-5 Urine Source? Clean CatchCBC W/O [id number] 12:33:00* Test Item Value Reference Range Interpretation [...] MPV) 11.6 fL 6.7-11.0 H BASIC METABOLIC [id number] 12:08:00* Test Item Value Reference Range Interpretation [...] CA) 8.2 mg/dL 8.5-10.1 L HEPATIC FUNCTION [id number] 12:08:00* Test Item Value Reference Range Interpretation [...] reference range due to change in reagent. [id number] 12:08:00* Test Item Value Reference Range Interpretation Comments LIPASE (test code = LIP) 114 U/L 73.0-393.0 N [id number]-Z6270-79-28 12:08:00* Test Item Value Reference Range Interpretation Comments TROPONIN-I (test code = TROPI) <0.015 ng/mL 0-0.045 N BASIC METABOLIC [id number] 11:58:00* Test Item Value Reference Range Interpretation [...] code = CA) mg/dL 8.5-10.1 HEPATIC FUNCTION [id number] 11:58:00* Test Item Value Reference Range Interpretation [...] TOTAL (test code = ALKP) IUnit/L 45-117 [id number] 11:58:00* Test Item Value Reference Range Interpretation Comments LIPASE (test code = LIP) U/L 73.0-393.0 BASIC METABOLIC [id number] 11:52:00* Test Item Value Reference Range Interpretation [...] code = CA) mg/dL 8.5-10.1 HEPATIC FUNCTION [id number] 11:52:00* Test Item Value Reference Range Interpretation [...] TOTAL (test code = ALKP) IUnit/L 45-117 [id number] 11:52:00* Test Item Value Reference Range Interpretation Comments LIPASE (test code = LIP) U/L 73.0-393.0 PROTHROMBIN [id number] 11:42:00* Test Item Value Reference Range Interpretation [...] (2.5-3.5) IS PATIENT ON ANTICOAGULANTS? NTHROMBOPLASTIN TIME [id number] 11:42:00* Test Item Value Reference Range Interpretation Comments THROMBOPLASTIN TIME PARTIAL (test code = PTT) 39.0 seconds 25.0-36. 5 H IS PATIENT ON ANTICOAGULANTS? WENCESLAO,CFGCLID4440-79-25 12:51:00 RUN DATE: 12/25/17 [place] 1 RUN TIME: 1251 Specimen Jamesi luz RUN USER: INTERFACE PATIENT: JOCELIN CORREA ACCT #: V [id number] LOC: DEON U #: [id number] AGE/SX: 47/M ROOM: [facility] RE12/19/17REG DR: Giovanna Rees MD : 70 BED: A DIS: 12/21/17 STATUS: DIS IN TLOC: SPEC #: [id number] RECD: 12/19/17 STATUS: KEN RE #: [id number] MELISA: 12/19/17-[address]: Yuval Multani MD ENTERED: 12/19/17 SP TYPE: FL ASCITES OTHR DR: Ian Olivas i, MD ORDERED: GROSS COPIES TO: Ian Cook MD [address] [place] [address] Yuval Multani MD [address] [place], [place] [address] PROCEDURES: GROSS (12/25/17 7) TISSUES: ASCITES FLUID - 20 ML RED CLINICAL HISTORY MELISA ECTION DATE: 12/19/17 HISTORY CIRRHOSIS, HEPATITIS C, PANCYTOPENIA FINAL DIAGNOSIS Ascites fluid for cytology, paracentesis: MESOTHELIAL CELLS, MACROPHAGES, WHITE BLOOD CELLS- PREDOMINATELY LYMPHOCYTES, AND R ED BLOOD CELLS NEGATIVE FOR MALIGNANCY DMW/arin D 33027, 883 05 MACROSCOPIC The specimen consists of 20 mL of red fluid for conc entration and evaluation. A cell block will be prepared. GROSS PERFORM ED AT [facility] CONTINUED ON NEXT PAGE RUN DATE: 12/25/17 [facility] PAGE 2 RUN TIME: 1251 Specimen Inquiry RUN USER: INTERFACE SPEC #: [id number] PATIENT: JOCELIN CORREA #[id number] (Continued)------ ------ MACROSCOPIC (Continued) [facility] [place] [address] (p)[phone] MICROSCOPIC MICROSCOPIC PERFOR MED AT [facility] All of the stains, including any controls perfor med, stain appropriately. [facility] HEATHER [employer] [facility]BR[facility], [facility] [place] [address] (P)[phone] PERFORMING SITE Diagnosis perform ed at: [facility], [place] [address] [facility] [place] [address] Signed SIGNATURE ON FILE Mireya Sheehan 12/25/17 1251 END OF REPORT STOMACH 2017-12-22 13:27:00 RUN DATE: 12/22/17 [facility] PAGE 1 RUN TIME: 1327 Specimen Inqui ry RUN USER: INTERFACE PATIENT: JOCELIN CORREA ACCT #: V [id number] LOC: AngelaANDREA U #: [id number] AGE/SX: 47/M ROOM: [facility] RE12/19/17REG DR: Giovanna Rees MD : 70 BED: A DIS: 12/21/17 STATUS: DIS IN TLOC: SPEC #: [id number] RECD: 12/21/17 STATUS: KEN ROSSI #: [id number] MELISA: 12/20/[address]: González Nunez MD ENTERED: 12/21/17 SP TYPE: STOMACH OTHR DR: Ian Olivas i, MD ORDERED: GROSS COPIES TO: González Nunez MD [address] [place] [address] Ian Cook MD [address] [place] [address] PROCEDURES: GROSS (12/22/17-1054 ) TISSUES: GASTRIC ULCER [...] STAIN NE GATIVE FOR MALIGNANCY RRB/sm D 20935, 83450 CONTINUED ON NEXT PAGE RUN DATE: 12/22/17 [place] [employer] [facility] PAGE 2 RUN TIME: 1327 Specimen Inquiry RUN USER: MARCELLA MARTIN SPEC # : [id number] PATIENT: JOCELIN CORREA #[id number] (Cont inued) MACROSCOPIC The specimen is received in formali n, labeled with the patient's name, identified as "gastric", and consists of l megan king biopsy tissue measuring 0.35 cm in aggregate, submitted for H E and G iemsa stains. GROSS PERFORMED AT [facility] [address] [place] [address] (p)[phone] MICR OSCOPIC MICROSCOPIC PERFORMED AT [facility] All of the stains, including any controls performed, stain appropriately. [facility] [address] [place] [address] (p)[phone] PERFORM ING SITE Diagnosis performed at: [facility], [place] [address] [place] [address] --------- --- Signed SIGNATURE ON FILE Elvis Schmid 12/22/17 1327 END OF REP ORT CHEM [id number] 14:13:001.2[facility] FcplynnILTFMCHTNV6419-82-53 07:45:001.0[facility] XwhfuumPZMLBOIMVF7898-89-68 07:45:001.9[facility] [place] PJYHXRETXK3537-64-33 07:45:000.2[facility] LtqknhxVRXJNKTVJQ4943-09-28 07:45:000.5 [facility] MvltcbqUCBGTGTSCK6132-51-86 07:45:000.9[facility] HermannHEMATOLOGY 2017-09-16 07:45:005.5[facility] BzgqdejVGWGEYIMCF2156-07-39 07:45:0053.9[facility] YmdwarrYJYYIBDNEQ6426-79-28 07:45:0012.6[facility] IztwdrxZTMMGJJIKZ4704-67-94 07:45:0027.1[facility] KevfyoiLLBCQVFDUA0767-60-57 07:45:00* Test Item Value Reference Range Interpretation Comments PTT (test code = PTT) 33.3 s 22.9-35.8 [facility]pUDORXDMLYN7065-22-64 07:45:00* Test Item Value Reference Range Interpretation Comments INR (test code = INR) 1.53 1 0.85-1.17 [facility] HospitalNhcabeiAEYJSQLQUW3161-02-22 07:45:00* Test Item Value Reference Range Interpretation Comments PT (test code = PT) 18.5 s 12.0-14.7 [facility] HospitalTxqlixlSOHFYXJEMC8961-67-09 07:45:0033.1[facility]annHEMATOLOGY 2017-09-16 07:45:0029.3[facility] XfpfwecXQGQKYAUEA1758-13-09 07:45:0097.4[facility] WvqlplmJOBEVFIVAW3107-88-77 07:45:00* Test Item Value Reference Range Interpretation Comments MCH (test code = MCH) 32.2 pg 27.0-31.0 [facility] RopvqarRVHIRIDVOD8374-93-77 07:45:0068[facility] HermannHEMATOLOGY 2017-09-16 07:45:0017.5[facility] QykcbuqAEOCEYJKRF5433-90-19 07:45:008.2[facility] StjszfwCXQRYHIPZI2284-26-20 07:45:003.01[facility] XezusynKYUIBITEEM9059-34-58 07:45:009.7[facility] QbhjujgNHEIDMNUSY8579-39-52 07:45:003.6[facility] CARDIAC CNRPEHG1196-37-46 07:24:00<1.3[facility] HermannCARDIAC BQZOQRL8524-74-68 07:24:00<1.0[facility] HermannCARDIAC SHXNSUN2774-34-66 07:24:0079[facility] [place] CARDIAC YTZJCRX4210-17-71 07:24:00<0.02[facility] HermannCHEM GQCXY6135-78-08 07:24:006.0[facility] HermannCHEM FWVTI4866-31-10 07:24:00* Test Item Value Reference Range Interpretation Comments B/C Ratio (test code = B/C Ratio) 16 1 6-25 [facility] HermannCHEM HBNDY9506-02-33 07:24:00* Test Item Value Reference Range Interpretation Comments A/G Ratio (test code = A/G Ratio) 0.3 1 0.7-1.6 [facility] HermannCHEM IUCWU3210-05-15 07:24:0099[facility] HermannCHEM PANEL 2017-09-16 07:24:0086[facility] HermannCHEM LUOCX7754-98-68 07:24:001.5[facility] HermannCHEM QJJXA1187-94-34 07:24:007.7[facility] HermannCHEM LWGXG9146-08-70 07:24:71108Uhjufxuw HermannCHEM RLLIW6256-60-19 07:24:91538Wdltrgso HermannCHEM TCMBZ2270-48-24 07:24:004.7[facility] HermannCHEM HTVDH8886-89-82 07:24:008.3 [facility] HermannCHEM DROUH1166-19-68 07:24:0026[facility] HermannCHEM PANEL 2017-09-16 07:24:007.8[facility] HermannCHEM IDUVI6193-88-34 07:24:0033[facility] HermannCHEM NQEVV4274-73-81 07:24:001.8[facility] HermannCHEM PRLDJ9946-72-50 07:24:000.82[facility] HermannCHEM LEIZZ6090-93-16 07:24:0013[facility] HermannCHEM QVEUX0097-06-23 07:24:71341Xhorupsm HermannCHEM UKIPN6102-54-96 07:24:0095 [facility] HermannCHEM IMJKT0423-38-77 07:24:59284Bwibfbpn HermannURINE AND STOOL 2017-09-16 07:24:004.0[facility]annUR[facility] AND IKDPS8030-54-88 07:24:00Negative (09/16/17 2:24 AM)[facility] AND HQFBL4944-29-48 07:24:00Negative (09/16/17 2:24 AM)[facility] AND ABFND5043-17-57 07:24:003[facility]ann[facility] AND CTBNR2234-13-27 07:24:0069[facility] STOOL 2017-09-16 07:24:00Slight *ABN*(09/16/17 2:24 AM)[facility] STOOL 2017-09-16 07:24:00* Test Item Value Reference Range Interpretation Comments UA Spec Grav (test code = UA Spec Grav) 1.019 1 [facility] AND DJEMM6218-00-75 07:24:00* Test Item Value Reference Range Interpretation Comments UA pH (test code = UA pH) 6.0 1 5.0-8.0 [facility] AND QWGHE0540-29-27 07:24:00Moderate *ABN*(09/16/17 2:24 AM) [facility] AND ZXNVC0373-92-37 07:24:00Negative *NA*(09/16/17 2:24 AM) [facility] HermannBlood Ttlopou2018-64-59 16:48:00* Test Item Value Reference Range Interpretation Comments Blood Culture (test code = 42702763) NO GROWTH AFTER 5 DAYS, FINAL REPORT [facility] A IgM Xiadluzd5253-52-85 10:18:00* Test Item Value Reference Range Interpretation Comments Hepatitis A IgM Antibody (test code = 43641-8) Negative [facility] B Surface Kjbnpxe8355-24-41 10:18:00* Test Item Value Reference Range Interpretation Comments Hepatitis B Surface Antigen (test code = 5196-1) Negative [facility] B Core IgM Lokbdpzy9849-30-45 10:18:00* Test Item Value Reference Range Interpretation Comments Hepatitis B Core IgM Antibody (test code = 24731-6) Negative [facility] C Sfaceklk4197-62-07 10:18:00* Test Item Value Reference Range Interpretation Comments Hepatitis C Antibody (test code = 48721-9) 11.0- Reference Range: 0.0 - 0.9 s/co ratioNegative: < 0.8Indeterminate: 0.8 - 0.9Positive: > 0.9 The CDC recommends that a positive HCV antibody result be followed up with a HCV Nucleic Acid Amplification test (601457).Results called to SERG LINTON RN at 1017 on 06/20/17 by Michael Whalen. NICKIE [place].Testing performed by:[facility] [id number]: Lopez Morgan [facility] HospitalPlatelet Rtjaleha9775-61-28 10:18:00* Test Item Value Reference Range Interpretation Comments Platelet Estimate (test code = 21881-3) SLIGHTLY DECREASED [facility] Cqgtonf9036-08-98 10:18:00* Test Item Value Reference Range Interpretation Comments Platelet Morphology Comment (test code = 17760-4) FEW GIANT [facility] HendersonHypochromasia2018-04-09 10:18:00* Test Item Value Reference Range Interpretation Comments Hypochromasia (test code = 728-6) MODERATE [facility] HendersonPoikilocytosis2018-04-09 10:18:00* Test Item Value Reference Range Interpretation Comments Poikilocytosis (test code = 779-9) SLIGHT [facility] HendersonAnisocytosis2018-04-09 10:18:00* Test Item Value Reference Range Interpretation Comments Anisocytosis (test code = 702-1) SLIG [facility] HendersonRed Cell Morphology Prhjbdp7062-85-89 10:18:00* Test Item Value Reference Range Interpretation Comments Red Cell Morphology Comment (test code = 6742-1) NORMAL [facility] HendersonProthrombin Zcjr4103-62-56 08:34:00* Test Item Value Reference Range Interpretation Comments Prothrombin Time (test code = 5902-2) 18.4 11.9-14.5 H [facility] HendersonProthromb Time International Ratio 2017-06-19 08:34:00* Test Item Value Reference Range Interpretation Comments Prothromb Time International Ratio (test code = 6301-6) 1.66 Oral Anticoagulant Therapy INR Values:1. Low Intensity Therapy 1.5 - 2.02 . Moderate Intensity Therapy 2.0 - 3.03. High Intensity Therapy(1) 2.5 - 3. 54. High Intensity Therapy(2) 3.0 - 4.05. Panic Value INR > 5.0 [facility] HendersonActivated Partial Thromboplast Time 2017-06-19 08:34:00* Test Item Value Reference Range Interpretation Comments Activated Partial Thromboplast Time (test code = 07788-5) 37.5 23.8-35.5 H [facility] HendersonTotal Oforbwrdr0302-86-31 08:09:00* Test Item Value Reference Range Interpretation Comments Total Bilirubin (test code = 1975-2) 2.0 0.2-1.2 H [facility] Mjgfk4267-31-95 08:01:00* Test Item Value Reference Range Interpretation Comments Sodium Level (test code = 2951-2) 131 136-145 L [facility] HendersonPotassium Czyhw6191-18-53 08:01:00* Test Item Value Reference Range Interpretation Comments Potassium Level (test code = 2823-3) 3.5 3.5-5.1 [facility] HendersonChloride Izugl6579-45-39 08:01:00* Test Item Value Reference Range Interpretation Comments Chloride Level (test code = 2075-0) 102 98-107 [facility] HendersonCarbon Dioxide Ccrbg9750-42-39 08:01:00* Test Item Value Reference Range Interpretation Comments Carbon Dioxide Level (test code = 2028-9) 27 22-29 [facility] HendersonAnion Rhb2358-55-37 08:01:00* Test Item Value Reference Range Interpretation Comments Anion Gap (test code = 32740-4) 5.5 8-16 L [facility] HendersonBlood Urea Fevosujr3502-58-92 08:01:00* Test Item Value Reference Range Interpretation Comments Blood Urea Nitrogen (test code = 3094-0) 8 7-26 [facility] HendersonCreatinine2018-04-09 08:01:00* Test Item Value Reference Range Interpretation Comments Creatinine (test code = 2160-0) 0.85 0.72-1.25 [facility] HendersonBUN/Creatinine Cjppp7883-92-87 08:01:00* Test Item Value Reference Range Interpretation Comments BUN/Creatinine Ratio (test code = 3097-3) 9 6-25 [facility] HendersonEstimat Glomerular Filtration Rate 2017-06-19 08:01:00* Test Item Value Reference Range Interpretation Comments Estimat Glomerular Filtration Rate (test code = 32345-6) 60- >60 Ranges were taken from the National Kidney Disease Education Program and the [employer]ori [employer] health[employer] literature.Reference ranges:60 or greater: Xzkkac83-72 ( for 3 consecutive months): Chronic kidney disease 15 or less: Kidney failureUT Health HendersonGlucose Jejmp7265-98-06 08:01:00* Test Item Value Reference Range Interpretation Comments Glucose Level (test code = PNT2784) 121 74-118 H [facility] HendersonCalcium Sovxy0073-36-39 08:01:00* Test Item Value Reference Range Interpretation Comments Calcium Level (test code = 36440-4) 7.3 8.4-10.2 L [facility] HendersonAspartate Amino Transf (AST/SGOT) 2017-06-19 08:01:00* Test Item Value Reference Range Interpretation Comments Aspartate Amino Transf (AST/SGOT) (test code = Aspartate Amino Transf (AST/SGOT)) 51 5-34 H [facility] HendersonAlanine Aminotransferase (ALT/SGPT) 2017-06-19 08:01:00* Test Item Value Reference Range Interpretation Comments Alanine Aminotransferase (ALT/SGPT) (test code = 1742-6) 17 0-55 [facility] HendersonTotal Zdrgpyw6713-96-80 08:01:00* Test Item Value Reference Range Interpretation Comments Total Protein (test code = 2885-2) 6.5 6.5-8.1 [facility] 08:01:00* Test Item Value Reference Range Interpretation Comments Albumin (test code = 1751-7) 1.6 3.5-5.0 [facility] 08:01:00* Test Item Value Reference Range Interpretation Comments Globulin (test code = 47732-5) 4.9 2.3-3.5 [facility]Globulin [id number] 08:01:00 * Test Item Value Reference Range Interpretation Comments Albumin/Globulin Ratio (test code = 1759-0) 0.3 0.8-2.0 [facility] [id number] 08:01:00* Test Item Value Reference Range Interpretation Comments Alkaline Phosphatase (test code = 6768-6) 47 40-150 [facility] [id number] 07:48:00* Test Item Value Reference Range Interpretation Comments White Blood Count (test code = 6690-2) 2.52 4.8-10.8 [facility] [id number] 07:48:00* Test Item Value Reference Range Interpretation Comments Red Blood Count (test code = 789-8) 2.78 4.3-5.7 L [facility] 07:48:00* Test Item Value Reference Range Interpretation Comments Hemoglobin (test code = 96686-9) 9.3 14.0-18.0 L [facility]Hematocrit2018-04-09 07:48:00* Test Item Value Reference Range Interpretation Comments Hematocrit (test code = 4544-3) 27.3 38.2-49.6 L [facility]Mean Corpuscular Mpkzvy3697-86-43 07:48:00* Test Item Value Reference Range Interpretation Comments Mean Corpuscular Volume (test code = 787-2) 98.2 81-99 [facility] Corpuscular Bfobfksqvl4494-04-41 07:48:00* Test Item Value Reference Range Interpretation Comments Mean Corpuscular Hemoglobin (test code = 785-6) 33.5 28-32 H [facility] Hemoglobin Concent 2017-06-19 07:48:00* Test Item Value Reference Range Interpretation Comments Mean Corpuscular Hemoglobin Concent (test code = 786-4) 34.1 31-35 [facility] Cell Distribution Aouiu9343-31-60 07:48:00* Test Item Value Reference Range Interpretation Comments Red Cell Distribution Width (test code = 63945-6) 15.1 11.7 -14.4 H [facility]Platelet Pwjuh6650-54-54 07:48:00* Test Item Value Reference Range Interpretation Comments Platelet Count (test code = 777-3) 46 140-360 LL Results called to SOILA JACK RN at 0748 on 06/19/17 by Michael Whalen. RB [place].[facility]Neutrophils (%) (Auto)2017-06-19 07:48:00* Test Item Value Reference Range Interpretation Comments Neutrophils (%) (Auto) (test code = 75495-7) 48.0 38.7-80.0 [facility]Lymphocytes (%) (Auto)2017-06-19 07:48:00 * Test Item Value Reference Range Interpretation Comments Lymphocytes (%) (Auto) (test code = 736-9) 27.0 18.0-39.1 [facility]Monocytes (%) (Auto)2017-06-19 07:48:00* Test Item Value Reference Range Interpretation Comments Monocytes (%) (Auto) (test code = 5905-5) 16.3 4.4-11.3 [facility]Eosinophils (%) (Auto)2017-06-19 07:48:00 * Test Item Value Reference Range Interpretation Comments Eosinophils (%) (Auto) (test code = 713-8) 7.9 0.0-6.0 H [facility]Basophils (%) (Auto)2017-06-19 07:48:00* Test Item Value Reference Range Interpretation Comments Basophils (%) (Auto) (test code = 706-2) 0.4 0.0-1.0 [facility]IM GRANULOCYTES %2017-06-19 07:48:00* Test Item Value Reference Range Interpretation Comments IM GRANULOCYTES % (test code = IM GRANULOCYTES %) 0.4 0.0- 1.0 [facility]Neutrophils # (Auto)2017-06-19 07:48:00* Test Item Value Reference Range Interpretation Comments Neutrophils # (Auto) (test code = 751-8) 1.2 2.1-6.9 L [facility]Lymphocytes # (Auto)2017-06-19 07:48:00* Test Item Value Reference Range Interpretation Comments Lymphocytes # (Auto) (test code = 55081-7) 0.7 1.0-3.2 L [facility]Monocytes # (Auto)2017-06-19 07:48:00* Test Item Value Reference Range Interpretation Comments Monocytes # (Auto) (test code = 742-7) 0.4 0.2-0.8 [facility]Eosinophils # (Auto)2017-06-19 07:48:00* Test Item Value Reference Range Interpretation Comments Eosinophils # (Auto) (test code = 711-2) 0.2 0.0-0.4 [facility]ophils # (Auto)2017-06-19 07:48:00* Test Item Value Reference Range Interpretation Comments Basophils # (Auto) (test code = 704-7) 0.0 0.0-0.1 [facility]Absolute Immature Granulocyte (auto 2017-06-19 07:48:00* Test Item Value Reference Range Interpretation Comments Absolute Immature Granulocyte (auto ([place] t code = Absolute Immature Granulocyte (auto) 0.01 0-0.1 [facility] HendersonDifferential Total Cells Counted 2017-06-16 09:31:00* Test Item Value Reference Range Interpretation Comments Differential Total Cells Counted (test code = Differen tial Total Cells Counted) 100 [facility]Neutrophils % (Manual)2017-06-16 09:31:00 * Test Item Value Reference Range Interpretation Comments Neutrophils % (Manual) (test code = 77134-3) 73 40-74 [facility]Lymphocytes % (Manual)2017-06-16 09:31:00 * Test Item Value Reference Range Interpretation Comments Lymphocytes % (Manual) (test code = 737-7) 14 19-48 L [facility]Monocytes % (Manual)2017-06-16 09:31:00* Test Item Value Reference Range Interpretation Comments Monocytes % (Manual) (test code = 744-3) 2 3.4-9.0 L [facility]Eosinophils % (Manual)2017-06-16 09:31:00 * Test Item Value Reference Range Interpretation Comments Eosinophils % (Manual) (test code = 714-6) 8 0-7 H [facility]Basophils % (Manual)2017-06-16 09:31:00* Test Item Value Reference Range Interpretation Comments Basophils % (Manual) (test code = 60110-1) 1 0-1.5 [facility]Metamyelocytes %2017-06-16 09:31:00* Test Item Value Reference Range Interpretation Comments Metamyelocytes % (test code = 740-1) 2 0-0 H [facility] HendersonVitamin B12 Xkueb6818-28-39 07:59:00* Test Item Value Reference Range Interpretation Comments Vitamin B12 Level (test code = 75550-1) 887 213-816 H [facility] HendersonFolate2018-04-06 07:59:00* Test Item Value Reference Range Interpretation Comments Folate (test code = 2284-8) 10.3 7.0-15.4 [facility] HendersonFerritin2018-04-06 07:39:00* Test Item Value Reference Range Interpretation Comments Ferritin (test code = 2276-4) 220.60 21.81-274.66 [facility]Iron Sxego1612-68-61 07:25:00* Test Item Value Reference Range Interpretation Comments Iron Level (test code = 2498-4) 102 65-175 [facility]Total Iron Binding Kvjgfpix2990-05-87 07:25:00* Test Item Value Reference Range Interpretation Comments Total Iron Binding Capacity (test code = 2500-7) 274 261-4 78 [facility]Percent Iron Bcnpqrdfyp4112-23-56 07:25:00* Test Item Value Reference Range Interpretation Comments Percent Iron Saturation (test code = 2502-3) 37 15-50 [facility] HendersonTransferrin2018-04-06 07:25:00* Test Item Value Reference Range Interpretation Comments Transferrin (test code = 3034-6) 196 174-364 [facility] HendersonDirect Pbhrtuycc5977-89-79 07:22:00* Test Item Value Reference Range Interpretation Comments Direct Bilirubin (test code = 37001-8) 2.0 0.0-0.5 H [facility] HendersonAmylase Nstiv9548-20-50 07:22:00* Test Item Value Reference Range Interpretation Comments Amylase Level (test code = 1798-8) 65 25-125 [facility] HendersonLipase2018-04-06 07:22:00* Test Item Value Reference Range Interpretation Comments Lipase (test code = 3040-3) 16 8-78 [facility]Percent Reticulocyte Uncbo6603-46-53 07:04:00* Test Item Value Reference Range Interpretation Comments Percent Reticulocyte Count (test code = 67867-7) 2.6 0.8-2 .2 H [facility] HendersonAmmonia2018-04-05 21:00:00* Test Item Value Reference Range Interpretation Comments Ammonia (test code = 66487-0) 58 31-123 [facility] HendersonBody Fluid Vlrzzsfvkjo5808-43-36 18:25:00 * Test Item Value Reference Range Interpretation Comments Body Fluid Neutrophils (test code = 02213-4) 11 MESOTHELIAL CELLS SEEN, RESULTED "OTHER"[facility] Fluid Zreqkcmjxiy1339-35-06 18:25:00* Test Item Value Reference Range Interpretation Comments Body Fluid Lymphocytes (test code = 70932948) 15 [facility] Fluid Gngqefhxb6960-49-61 18:25:00* Test Item Value Reference Range Interpretation Comments Body Fluid Monocytes (test code = 13429-3) 64 [facility] Fluid Other Hbzjf6315-80-73 18:25:00 * Test Item Value Reference Range Interpretation Comments Body Fluid Other Cells (test code = 237872016) 10 [facility] Fluid Total Cells Srukkxw3366-65-70 18:25:00* Test Item Value Reference Range Interpretation Comments Body Fluid Total Cells Counted (test code = 08463-3) 100 [facility]Body Fluid Isdrdlf5766-65-74 18:25:00* Test Item Value Reference Range Interpretation Comments Body Fluid Comment (test code = Body Fluid Comment) SEE COMMENT [facility] Occult Vhbwe9077-06-02 18:21:00* Test Item Value Reference Range Interpretation Comments Stool Occult Blood (test code = 2335-8) POSITIVE NEGATIVE H [facility]Body Fluid Dngq8558-39-04 17:33:00* Test Item Value Reference Range Interpretation Comments Body Fluid Type (test code = 86982-1) PERITONEAL RIGHT ABD FLUIDUT Health HendersonBody Fluid Mdbol9489-51-67 17:33:00* Test Item Value Reference Range Interpretation Comments Body Fluid Color (test code = 6824-7) YELLOW [facility] Fluid Uvsngtudnc6609-19-84 17:33:00 * Test Item Value Reference Range Interpretation Comments Body Fluid Appearance (test code = 9335-1) CLOUDY [facility] Fl[facility] LOE3655-17-69 17:33:00* Test Item Value Reference Range Interpretation Comments Body Fluid WBC (test code = 6743-9) 163 [facility]Body Fluid CAP6160-42-69 17:33:00* Test Item Value Reference Range Interpretation Comments Body Fluid RBC (test code = 6741-3) 1519 [facility] YLW0254-49-23 16:17:00* Test Item Value Reference Range Interpretation Comments Urine WBC (test code = 5821-4) NONE 0-5 [facility] UFV1357-60-89 16:17:00* Test Item Value Reference Range Interpretation Comments Urine RBC (test code = 48357-7) 11-20 0-5 H [facility] Qejifbrc6508-97-82 16:17:00* Test Item Value Reference Range Interpretation Comments Urine Bacteria (test code = 37019-3) NONE NONE [facility] Epithelial Rlszi3222-85-04 16:17:00 * Test Item Value Reference Range Interpretation Comments Urine Epithelial Cells (test code = 33267-1) NONE NONE [facility] Ukail7758-72-02 15:54:00* Test Item Value Reference Range Interpretation Comments Urine Color (test code = 5778-6) ORANGE YELLOW H [facility] Hxzmxfc5658-80-94 15:54:00* Test Item Value Reference Range Interpretation Comments Urine Clarity (test code = 15819-8) CLOUDY CLEAR H [facility] Specific Kevocxl0837-83-91 15:54:00 * Test Item Value Reference Range Interpretation Comments Urine Specific [place] (test code = 5811-5) 1.010 1.010-1.02 5 [facility] lS0275-23-90 15:54:00* Test Item Value Reference Range Interpretation Comments Urine pH (test code = 19137-0) 7 5-7 [facility] Leukocyte Uownqgfl8803-85-21 15:54:00* Test Item Value Reference Range Interpretation Comments Urine Leukocyte Esterase (test code = 5799-2) NEGATIVE NEGATIVE [facility] Oemvwop2123-23-40 15:54:00* Test Item Value Reference Range Interpretation Comments Urine Nitrite (test code = 79740-4) NEGATIVE NEGATIVE [facility] Zdnekcz3808-35-58 15:54:00* Test Item Value Reference Range Interpretation Comments Urine Protein (test code = 5804-0) 1+ NEGATIVE H [facility] Glucose (UA)2017-06-15 15:54:00* Test Item Value Reference Range Interpretation Comments Urine Glucose (UA) (test code = 2349-9) NEGATIVE NEGATIVE [facility] Nrgycnj6109-95-58 15:54:00* Test Item Value Reference Range Interpretation Comments Urine Ketones (test code = 42393-4) TRACE NEGATIVE H [facility] Qvmaeyznccog5454-59-24 15:54:00* Test Item Value Reference Range Interpretation Comments Urine Urobilinogen (test code = 02048-0) 8 0.2-1 H [facility] Uecohhhls4222-46-35 15:54:00* Test Item Value Reference Range Interpretation Comments Urine Bilirubin (test code = 1978-6) 2+ NEGATIVE H Confirmatory test currently unavailable. False positive results may occur.[facility] HendersonU[facility] Zsatx9466-46-88 15:54:00* Test Item Value Reference Range Interpretation Comments Urine Blood (test code = 75981-3) 2+ NEGATIVE H [facility] [address] [address] Patient Name: JOCELIN CORREA MR #: [id number] : 1970 Age/Sex: 47/M Req #: [id number] Adm Physician: ROME HOPPER MD Ordered by: AMARA GUTHRIE MD Report #: [id number] Location: MED/SURG Room/Bed: [facility] Procedure: [id number] US/US LIVER Exam Date: 06/20/17 Exam Time: [...] renal d isease. Signed by: Dr. Diana Velarde MD on 06/20/2017 11:33 AM Dictated By: DIANA VELARDE MD 1133 Transcribed By: ZAHEER on 06/20/17 1133 COPY TO: AMARA GUTHRIE MD CT ABDOMEN/PELVIS [place] [id number] Patient Name: JOCELIN CORREA MR #: [id number] : 1970 Age/Sex: 47/M Req #: [id number] Adm Physician: Ordered by: EZ MANDUJANO MD Report #: [id number] Location: ER Room/Bed: Procedure: [id number] CT/CT ABDOMEN/PELVIS W Exam Date: Exam Time: REPORT STATUS: Signed CO OCEDURE: CT ABDOMEN AND PELVIS WITH CONTRAST [...] 2. Large volume ascites. Given fever, con rate and cost analyst correlation for SBP. 3. Splenomegaly likely related to portal hypertens ion. Dictated by: Deandre Gan M.D. on 06/15/2017 at 14:50 Electronically approved by: Deandre Gan M.D. on 06/15/2017 at 14:50 Dictated By: DEANDRE GAN MD 49 Transcribed By: MARCO on 06/15/171449 COPY TO: EZ MANDUJANO MD US GUIDED PARACENTESIS [place] [address] Patient Name: JOCELIN CORREA MR #: [id number] : 1970 Age/Sex: 47/M Req #: [id number] Adm Physician: ROME HOPPER MD Ordered by: JESUS MARKS DEVELOPMENT REPRESENTATIVE Report #: [id number] Location: [facility] Room/Bed: [place] [address] Procedure: [id number] US /US GUIDED PARACENTESIS Exam Date: 06/15/17 [...] clear straw colored fluid. Dictated by: Deandre Gan M.D. on 06/15/2017 at 17:10 Electronically approved by: Deandre Gan M.D. on 06/15/2017 at 17:10 Dictated By: DEANDRE GAN MD 09 Transcribed By: MARCO on 06/15/171709 COPY TO: JESUS MARKS NP
[2019-08-23] MEDS ORDERED: SODIUM CHLORIDE 0.9% 1000ML 1,000 ML IV STA (11:56)
--- NOTE | 2019-08-23 12:01 | Emergency Department Note ---
History of Present Illnes History of Present Illness Chief Complaint: Abdominal Complaints History of Present Illness This is a 49 year old male returns to the ED for acute on chronic abdominal pain. Patient continues to abuse alcohol . Historian: Patient Arrival Mode: Car Severity: moderate Duration (how long): day(s) (3) Progression: worsening Chronicity: recurrent Context: Reports recent illness, Reports non-compliance w/ medications Relieving factors: none Exacerbating factors: none Associated symptoms: Reports loss of appetite, Reports malaise, Reports nausea/vomiting, Reports weakness Previous service: tests performed, one or more referrals, re-evaluation Past Medical/Family History Physician Review I have reviewed the patient's past medical and family history. Any updates have been documented here. Past Medical History Recent Fever: No Clinical Suspicion of Infectio: No New/Unexplained Change in Ment: No Past Medical History: Hypertension, Liver Disease Other Medical History: LIVER CIRROHSIS ETOH ABUSE ASCITES WITH TAPS DONE HEP C Other Surgery: UNKNOWN - SCAR ON ABDOMEN - HE SAYS "THEY OPERATED ON MY STOMACH" Social History Smoking Cessation: Never Smoker Alcohol Use: Daily Any Illegal Drug Use: No Other Last Tetanus: NO Review of Systems Review of Systems Constitutional: Reports no symptoms EENTM: Reports no symptoms Cardiovascular: Reports no symptoms Respiratory: Reports no symptoms Gastrointestinal: Reports abdominal pain, Reports nausea, Reports vomiting Genitourinary: Reports no symptoms Musculoskeletal: Reports no symptoms Integumentary: Reports no symptoms Neurological: Reports no symptoms Psychological: Reports no symptoms Endocrine: Reports no symptoms Hematological/Lymphatic: Reports no symptoms Physical Exam Related Data Allergies: Coded Allergies: No Known Allergies (Unverified , 05/23/16) Triage Vital Signs Vital Signs Date Time Temp Pulse Resp B/P (MAP) Pulse Ox O2 Delivery O2 Flow Rate FiO2 08/23/19 11:51 99.5 117 18 121/82 95 Physical Exam CONSTITUTIONAL Constitutional: Reports well-developed, Reports ill appearing HENT HENT: Reports normocephalic, Reports atraumatic, Reports oropharynx clear/moist, Reports nose normal HENT L/R: Reports left ext ear normal, Reports right ext ear normal EYES Eyes: Reports PERRL, Reports conjunctivae normal NECK Neck: Reports ROM normal PULMONARY Pulmonary: Reports effort normal, Reports breath sounds normal CARDIOVASCULAR Cardiovascular: Reports regular rhythm, Reports heart sounds normal, Reports capillary refill normal, Reports normal rate GASTROINTESTINAL Abdominal: Reports soft, Reports tender (dfiffuse) GENITOURINARY Genitourinary: Reports exam deferred SKIN Skin: Reports warm, Reports dry, Reports other (poor skin turgor) MUSCULOSKELETAL Musculoskeletal: Reports ROM normal NEUROLOGICAL Neurological: Reports alert, Reports oriented x 3, Reports no gross motor or sensory deficits PSYCHOLOGICAL Psychological: Reports mood/affect normal, Reports judgement normal Results Laboratory Lab results reviewed: Yes Laboratory comments CMP : Na 131, K 3.0 CBC : pancytopenia Imaging Imaging results reviewed: Yes Impressions [place] [address] Patient Name: JOCELIN CORREA MR #: [id number] : 1970 Age/Sex: 49/M Req #: [id number] Adm Physician: Ordered by: RACHAEL HAN DO Report #: [id number] Location: ER Room/Bed: Procedure: [id number] CT/CT ABDOMEN/PELVIS W Exam Date: 08/23/19 Exam Time: 1400 REPORT STATUS: Signed EXAM: CT Abdomen and Pelvis WITH intravenous contrast INDICATION: Abdominal pain COMPARISON: CT abdomen and pelvis of 08/14/2019 TECHNIQUE: Abdomen and pelvis were scanned utilizing a multidetector helical scanner from the lung base to the pubic symphysis after administration of IV contrast. Coronal and sagittal reformations were obtained. Routine protocol was performed. Scan was performed during portal venous phase. IV CONTRAST: 100mL of Isovue 370 ORAL CONTRAST: None RADIATION DOSE: Total DLP: 732 mGy*cm Dose modulation, iterative reconstruction, and/or weight based adjustment of the mA/kV was utilized to reduce the radiation dose to as low as reasonably achievable. FINDINGS: LOWER THORAX: Normal. HEPATOBILIARY: Diffuse hepatic steatosis. Mildly nodular liver surface contour compatible with early hepatic cirrhosis. Unremarkable gallbladder. Likely acute thrombus in the main portal vein (axial image 24). SPLEEN: Splenomegaly to 13.7 cm. PANCREAS: No focal masses or ductal dilatation. ADRENALS: No adrenal nodules. KIDNEYS/URETERS: 3 mm right midpole nonobstructive renal calculus. No hydronephrosis or solid mass lesion. PELVIC ORGANS/BLADDER: Unremarkable. PERITONEUM / RETROPERITONEUM: Trace free fluid. No free air. LYMPH NODES: No lymphadenopathy. VESSELS: Portal vein thrombosis. See hepatobiliary section. GI TRACT: No abnormal bowel thickening. No bowel obstruction. Normal appendix. BONES AND SOFT TISSUES: Unremarkable. IMPRESSION: Acute nonocclusive main portal vein thrombus. Diffuse hepatic steatosis and cirrhotic liver contour. Splenomegaly. 3 mm right midpole nonobstructive renal calculus. No hydronephrosis. Signed by: Nayeli Coleman MD on 08/23/2019 2:54 PM Dictated By: NAYELI COLEMAN MD 1395 Transcribed By: ZAHEER on 08/23/19 9124 COPY TO: RACHAEL HAN DO~ Critical Care Time Total Critical Care Time (min): 31 Critcal care necessary due to: hepatic failure Critcal care time spent by me: develop tx plan w patient/surrogate, discussion w consultants, discussion w primary provider, examination of patient, obtaining hx from patient/surrogate, order/perform tx or interventions, order/review la boratory studies, order/review radiographic studies, re-evaluation of patient condition, review of old charts Assessment & Plan Medical Decision Making MDM patient with prior h/o of pancytopenia and alcohol induced liver cirrhosis. CBC consistant with patient's prior diagnosis of pancytopenia. CT Abd/pelvis demonstrates new non-occlusive portal vein thrombosis. Patient started on heparin gtt. Plan to admit to the hospital with GI and heme/onc consult Assessment & Plan Final Impression: (1) Portal vein thrombosis (2) Pancytopenia (3) Hyponatremia (4) HYPOKALEMIA Depart Disposition: ADMITTED Last Vital Signs Date Time Temp Pulse Resp B/P (MAP) Pulse Ox O2 Delivery O2 Flow Rate FiO2 08/23/19 11:51 99.5 117 18 121/82 95 Home Meds Active Scripts Levofloxacin (LEVAQUIN) 500 Mg Tablet, 500 MG PO DAILY for 7 Days Prov:MARISSA MULLIGAN TYPEWRITER MECHANIC 08/16/19 Pantoprazole Sodium* (PROTONIX) 40 Mg Tablet.dr, 40 MG PO DAILY@0600 for 30 Days, TAB Prov:YESSENIA MULLIGANIN M TYPEWRITER MECHANIC 08/16/19 Lactulose (LACTULOSE) 20 Gm/30 Ml Solution, 20 GM PO DAILY for 30 Days Prov:MARISSA MULLIGAN M TYPEWRITER MECHANIC 08/16/19 Spironolactone (SPIRONOLACTONE) 25 Mg Tablet, 50 MG PO DAILY for 30 Days, TAB Prov:MARISSA MULLIGAN M TYPEWRITER MECHANIC 08/16/19 Furosemide (LASIX) 40 Mg Tablet, 40 MG PO DAILY for 30 Days, TAB Prov:MARISSA MULLIGAN M TYPEWRITER MECHANIC 08/16/19 Medications in the ED Sodium Chloride 1,000 ml @ 0 mls/hr Q0M STAT IV ; Start 08/23/19 at 11:56; Stop 08/23/19 at 12:00; Status RACHAEL BANSAL DO Aug 23, 2019 12:01
[2019-08-23 13:01] LABS: BASOPHILS # (AUTO) 0.1 (0.0-0.1); BASOPHILS % 1.5 % (0.0-1.0); EOSINOPHILS # (AUTO) 0.3 (0.0-0.4); HEMATOCRIT 29.9 % (38.2-49.6); HEMOGLOBIN 9.3 g/dL (14.0-18.0); LYMPHOCYTES # (AUTO) 0.9 (1.0-3.2); LYMPHOCYTES % 21.2 % (18.0-39.1); MEAN CORPUSCULAR HEMOGLOBIN 22.6 pg (28-32); MEAN CORPUSCULAR HGB CONC 31.1 g/dL (31-35); MEAN CORPUSCULAR VOLUME 72.6 fL (81-99); MONOCYTES # (AUTO) 0.9 (0.2-0.8); MONOCYTES % 22.7 % (4.4-11.3); NEUTROPHILS # (AUTO) 1.9 (2.1-6.9); NEUTROPHILS % 46.1 % (38.7-80.0); PLATELET COUNT 59 x10e3/uL (140-360); RED BLOOD COUNT 4.12 x10e6/uL (4.3-5.7); RED CELL DISTRIBUTION WIDTH 21.4 % (11.7-14.4)
[2019-08-23 13:18] LABS: ALANINE AMINOTRANSFERASE 25 IU/L (0-55); ALBUMIN/GLOBULIN RATIO 0.5 (0.8-2.0); ALKALINE PHOSPHATASE 85 IU/L (40-150); CALCIUM 8.5 mg/dL (8.4-10.2); CARBON DIOXIDE 26 mmol/L (22-29); CHLORIDE 93 mmol/L (98-107); EST GLOMERULAR FILTRATION RATE > 60 ML/MIN (60-); GLUCOSE 101 mg/dL (74-118); SODIUM 131 mmol/L (136-145)
[2019-08-23 13:33] LABS: INR 1.15; PROTHROMBIN TIME 15.5 seconds (11.9-14.5)
[2019-08-23 13:34] LABS: BLOOD UREA NITROGEN 12 mg/dL (7-26); BUN/CREATININE RATIO 10 (6-25); LIPASE 58 U/L (8-78)
[2019-08-23] MEDS ORDERED: SODIUM CHLORIDE 0.9% 50ML 50 ML ONE (13:55)
[2019-08-23] MEDS ORDERED: IOPAMIDOL 370 MG/ML 200 ML INFUS..BTL INJ ONE (13:56)
--- NOTE | 2019-08-23 14:58 | Diagnostic Imaging Report ---
EXAM: CT Abdomen and Pelvis WITH intravenous contrast INDICATION: Abdominal pain COMPARISON: CT abdomen and pelvis of 08/14/2019 TECHNIQUE: Abdomen and pelvis were scanned utilizing a multidetector helical scanner from the lung base to the pubic symphysis after administration of IV contrast. Coronal and sagittal reformations were obtained. Routine protocol was performed. Scan was performed during portal venous phase. IV CONTRAST: 100mL of Isovue 370 ORAL CONTRAST: None RADIATION DOSE: Total DLP: 732 mGy*cm Dose modulation, iterative reconstruction, and/or weight based adjustment of the mA/kV was utilized to reduce the radiation dose to as low as reasonably achievable. FINDINGS: LOWER THORAX: Normal. HEPATOBILIARY: Diffuse hepatic steatosis. Mildly nodular liver surface contour compatible with early hepatic cirrhosis. Unremarkable gallbladder. Likely acute thrombus in the main portal vein (axial image 24). SPLEEN: Splenomegaly to 13.7 cm. PANCREAS: No focal masses or ductal dilatation. ADRENALS: No adrenal nodules. KIDNEYS/URETERS: 3 mm right midpole nonobstructive renal calculus. No hydronephrosis or solid mass lesion. PELVIC ORGANS/BLADDER: Unremarkable. PERITONEUM / RETROPERITONEUM: Trace free fluid. No free air. LYMPH NODES: No lymphadenopathy. VESSELS: Portal vein thrombosis. See hepatobiliary section. GI TRACT: No abnormal bowel thickening. No bowel obstruction. Normal appendix. BONES AND SOFT TISSUES: Unremarkable. IMPRESSION: Acute nonocclusive main portal vein thrombus. Diffuse hepatic steatosis and cirrhotic liver contour. Splenomegaly. 3 mm right midpole nonobstructive renal calculus. No hydronephrosis. Signed by: Norbert Coleman MD on 08/23/2019 2:54 PM
[2019-08-23] MEDS ORDERED: HEPARIN 25,000 UNIT 25,000 UNIT in DEXTROSE 5% 250ML 250 ML IV STA (15:00)
[2019-08-23] MEDS ORDERED: PIPER-TAZ 3.375 GM 50 ML IV STA (15:02)
[2019-08-23] MEDS ORDERED: HEPARIN 25,000 UNIT 1,000 UNIT in DEXTROSE 5% 250ML 250 ML IV SCH (15:15)
[2019-08-23] MEDS ORDERED: MORPHINE SULFATE INJ 4 MG/ML INJ 1ML IV STA (15:16)
--- NOTE | 2019-08-23 16:14 | NUR ---
heparin drip started per orders at 12units/kg/hr
[2019-08-23] MEDS ORDERED: MORPHINE SULFATE 2 MG/ML SYR 1ML IV PRN (16:15)
[2019-08-23 17:16] LABS: CREATINE KINASE MB 0.8 ng/mL (0-5.0)
[2019-08-23] MEDS: SODIUM CHLORIDE 0.9% 1000ML 1,000 ML IV SCH (18:05)
--- OUTSIDE RECORDS SUMMARY | 2019-08-23 18:19 | XMS REPORT | Continuity of Care Document ---
Author Author [facility] t Organization [facility] Address [address] [place] [address] Phone Unavailable Care Team Providers Care Driller Helper Name Role Phone Jennifer AGRRISON III PCP RACHAEL HAN Attphys Unavailable Irma WANG Attphys Unavailable Pnueet Banks Attphys Nabeel Valero Attphys Bill Berger Attphys Eli Delgado Attphys [phone] Casi Justice Attphys ROME HOPPER Attphys Unavailable Nabeel Valero Nigel Admphys Tamika Guzman Admphys ROME HOPPER Admphys Unavailable Payers Payer Name Policy Type Policy Number Effective Date Expiration Date Greg Moya Medicare Complete [id number] 2019 00:00:00 [facility] Problems Condition Name Condition Details Condition Category Status Onset Date Resolution Date Last Treatment Date Treating Clinician Comments Source ABDOMINAL PAIN ABDO YOLIS PAIN Active 02/26/2019 [facility] Diagnosis Active 2019-02-26 00:00:00 2019-02-26 16:11:00 [facility] ABD PAIN ABD PAIN Active 08/24/2018 [facility] Diagnosis Active 2018-08-24 00:00:00 2018-08-24 21:51:00 [facility] BLOODY STOOL/STOMACH PAIN BLOO DY STOOL/STOMACH PAIN Active 06/01/2018 [facility] Diagnosis Active 2018-06-01 00:00: 00 2018-06-01 10:32:00 [facility] GIB, LIVER CIRRHOSIS, ABD PAIN, PORTAL V GIB, LIVER CIRRHOSIS, ABD PAIN, PORTAL V Active 06/01/2018 [facility] Diagnosis Active 2018-06-01 00:00:00 2018-06-06 16:57:00 [facility] HEADACHE HEAD ACHE Active 04/18/2018 [facility] Diagnosis Active 2018-04-18 00:00:00 2019-07-01 13:22:00 [facility] OTHER OTHE R Active 09/16/2017 [facility] Diagnosis Active 2017-09-16 00:00:00 2017-11-16 10:48:00 [facility] Abdominal pain Abdominal pain Problem Active [facility] Alcoholic cirrhosis of liver with ascites Alcoholic ci rrhosis of liver with ascites Problem Active [facility] Fever Fever Problem Active [facility] Headache Head ache 11/05/2018 [facility] Problem 2018-11-05 16:44:23 [facility] Liver disease, unspecified Tonya er disease, unspecified 11/05/2018 [facility] Problem 2018-11-05 16:44:2 3 [facility] Chest pain, unspecified Ches t pain, unspecified 11/05/2018 [facility] Problem 2018-11-05 16:44:23 [facility] GASTROINTESTINAL HEMORRHAGE, UNSPECIFIED GASTROINTESTINAL HEMORRHAGE, UNSPECIFIED Active [facility] Diagnosis Active 2018-06-06 16:57:00 Nash Dos Santos UNSPECIFIED CIRRHOSIS OF LIVER UNSPECIFIED CIRRHOSIS OF LIVER Active [facility] Diagnosis Active 201 11-13-26 16:57:00 Tahira Dos Santos UNSPECIFIED ABDOMINAL PAIN UNS PECIFIED ABDOMINAL PAIN Active Tahira Dos Santos Diagnosis Active 2018-06-06 16:57:0 0 Tahira Dos Santos Encounter for examination and observation following ot her accident Encounter for examination and observation following other accident 04/24/2018 11/05/2018 [facility] Problem 2018-04-24 05:08:12 2018 16:44:23 2018-11-05 16:44:23 Tahira Dos Santos Unspecified abdominal pain Uns pecified abdominal pain 09/16/2017 09/19/2017 [facility] Problem 2017-09-16 05:00 :00 2017-09-19 01:50:07 2017-09-19 01:50:07 Tahira lopez Allergies, Adverse Reactions, Alerts Allergy Name Allergy Type Status Severity Reaction(s) Onset Date Inacti ve Date Treating Clinician Comments Source No Known Allergies DA Active U 2019-01-15 00:00:00 [facility] No Known Allergies DA Active U 2018-05-05 00:00:00 [facility] No Known Allergies DA Active U 2018-04-09 00:00:00 [facility] No Known Allergies DA Active U 2017-12-18 00:00:00 [facility] No Known Allergies DA Active U 2017-08-03 00:00:00 [facility] No Known Allergies DA Active U 2017-06-03 00:00:00 [facility] No Known Medication Allergies No Known Medication Allergies Active Tahira Dos Santos Social History Social Habit Start Date Stop Date Quantity Comments Source Social History 2018-06-02 00:41:01 2018-06-02 00:41:01 Tahira Dos Santos Sex Assigned At 1970 00:00:00 1970 00:00:00 Male [facility] Medications Ordered Medication Name Filled Medication Name Start Date Stop Da te Current Medication? Ordering Clinician Indication Dosage Frequency Signature (SIG) Comments Components Source Levofloxacin (Levaquin) 500 Mg TABLET Levofloxacin (Levaquin ) 500 Mg TABLET 2019-08-16 17:45:00 Yes 500 Daily [facility] Furosemide (Lasix) 40 Mg TABLET Furosemide (Lasix) 40 Mg TAB LET 2019-08-16 13:12:00 Yes 40 Daily [facility] Lactulose Lactulose 2019-08-16 13:12:00 Yes 20 Daily [facility] Pantoprazole Sodium (Protonix) 40 Mg TABLET. Pantopr azole Sodium (Protonix) 40 Mg TABLET. 2019-08-16 13:12:00 Yes 40 Daily@0600 [facility] Spironolactone Spironolactone 2019-08-16 13:12:00 Yes 50 Daily [facility] Saline Flush 0.9% 2019-02-26 17:34:00 No Notes: Same as: BD Posiflush Sterile [facility] Saline Flush 0.9% 2018-08-25 02:09:00 No Notes: (Same as: BD Posiflush) [facility] Rocephin 2018-08-04 10:01:00 No 1 gm, Route: IVPB, Drug form: PDR/INJ, ONCE, Dosing Weight 90.909, kg, Priority: STAT, Start date: 08/04/18 5:01:00 CDT, Stop date: 08/04/18 5:01:00 CDT, ABX Indication: Intra-abdominal Infection [facility] Fentanyl 2018-08-04 06:35:00 No 50 microgram, Route: IVP, ONCE, Dosing Weight 90.909, kg, Priority: STAT, Start date: 08/04/18 1:35:00 CDT, Stop date: 08/04/18 1:35:00 CDT [facility] Zofran 2018-08-04 06:34:00 No 4 mg, Route: IVP, Drug form: INJ, ONCE, Dosing Weight 90.909, kg, Priority: STAT, Start date: 08/04/18 1:34:00 CDT, Stop date: 08/04/18 1:34:00 CDT [facility] [place] Fentanyl 2018-08-04 06:28:00 No 25 microgram, Route: IVP, ONCE, Dosing Weight 90.909, kg, Priority: STAT, Start date: 08/04/18 1:28:00 CDT, Stop date: 08/04/18 1:28:00 CDT [facility] Octreotide 2018-08-04 06:26:00 No 50 microgram, Route: IV, ONCE, Dosing Weight 90.909, kg, Start date: 08/04/18 1:26:00 CDT, Stop date: 08/04/18 1:26:00 CDT Tahira Dos Santos pantoprazole 2018-08-04 06:26:00 No 80 mg, Route: [...] 2018-06-06 14:00:00 No Notes: (Same As: Aldactone) Tahira Dos Santos Furosemide 40 MG Oral Tablet 2018-06-06 14:00:00 No Notes: (Same as: Lasix) May cause GI upset. Give with food or milk. Tahira Dos Santos Folic Acid 2018-06-06 14:00:00 No Notes: (S faheem as: Folvite) Tahira Dos Santos riFAXimin 550 mg oral tablet 2018-06-05 22:30:00 Yes 550 mg = 1 tab, PO, Q12H, # 60 tab, 0 Refill(s), Pharmacy: [facility]/pharmacy #[id number] Tahira Levon Ondansetron 4 MG Oral Tablet [Zofran] 2018-06-05 22:21:00 Y es 4 mg = 1 tab, PO, Q8H, PRN Nausea/vomiting, # 15 tab, 0 Refill(s), Pharmacy: [facility]/pharmacy #[id number] Tahira Levon Lactulose 667 MG/ML Oral Solution 2018-06-05 22:21:00 Yes 10 gm = 15 mL, PO, TID, PRN Titrate to 2-3 soft bowel movements a day, X 30 day, # 900 mL, 0 Refill(s), Pharmacy: [facility]/pharmacy #[id number] Tahira Dos Santos pantoprazole 40 mg oral enteric coated tablet 2018-06-05 22:21:0 0 Yes 40 mg = 1 tab, PO, Before Breakfast, # 3 0 tab, 0 Refill(s), Pharmacy: [facility]/pharmacy #[id number] Tahira Dos Santos tramadol hydrochloride 50 MG Oral Tablet 2018-06-05 [...] Size: 62.5 mg Product Wasted: ___ mg Angeles Friedman Flagyl 2018-06-05 02:00:00 No Notes: (Same as: Flagyl) Take with food/ avoid alcohol Tahira Dos Santos Golytely 2018-06-04 19:47:00 No Notes: (Сергей e as: Nulytely) [facility] Bisacodyl 2018-06-04 19:47:00 No Notes: (Same As: Dulcolax, Correctol) (Do Not Crush) "Do Not Crush" [facility] Hydromorphone 2018-06-04 17:43:00 No Notes: (Same as: Dilaudid) [facility] Lactulose 667 MG/ML Oral Solution 2018-06-04 02:00:00 No Notes: (Same as:Chronulac) [facility] rifaximin 2018-06-04 02:00:00 No Notes: Сергей e as: Xifaxan [facility] Lactulose 667 MG/ML Oral Solution 2018-06-03 14:00:00 No Notes: (Same as:Chronulac) [facility] pantoprazole 2018-06-03 12:30:00 No Notes: Tablet should not be chewed or crushed. (Same as: Protonix) Rajendra Dos Santos lidocaine (ANES) 2018-06-02 19:57:00 No Route: IV, Drug form: INJ, ONCE, Stop date: 06/02/18 14:57:00 CDT Rajendra Dos Santos propofol (ANES) 2018-06-02 19:57:00 No Route: IV, Drug form: INJ, ONCE, Stop date: 06/02/18 14:57:00 CDT [facility] Sodium Chloride 0.9% IV 1,000 mL 2018-06-02 19:36:00 No 1,000 mL, Rate: 25 ml/hr, Infuse over: 40 hr, Route: IV, Dosing Weight 87.091 kg, Total Volume: 1,000, Start date: 06/02/18 14:36:00 CDT, Duration: 30 day, Stop date: 07/02/18 14:35:00 CDT, 2.08, m2 [facility] Rocephin 2018-06-02 06:00:00 No 1 gm, Route: IVPB, Drug form: PDR/INJ, [id number], Dosing Weight 87.091, kg, Start date: 06/02/18 1:00:00 CDT, Duration: 5 day, Stop date: 06/06/18 1:00:00 CDT, ABX Indication: Intra- abdominal Infection [facility] potassium chloride 2018-06-02 05:00:00 No Notes: Infuse at a rate of 10 mEq/hr. (Same as: KCL) [facility] Potassium Chloride 2018-06-02 04:04:00 No 20 mEq, Route: IVPB, ONCE, Dosing Weight 87.091, kg, Start date: 06/01/18 23:04:00 CDT, Stop date: 06/01/18 23:04:00 CDT [facility] Ceftriaxone 2018-06-02 04:00:00 No Notes: (Same As: Rocephin). Use with 100 mL NS and infuse over 30 min MEDICATION WASTE Product Size: 1000 mg Product Wasted: ___ mg [facility] octreotide 1,250 microgram + Sodium Chloride 0.9% IV 248.75 mL 2018-06-02 03:26:00 No 248.75 mL, Rate: 10 ml/hr, Infuse over: 25 hr, Route: IV, Dosing Weight 87.091 kg, Total Volume: 250, Start date: 06/01/18 22:26:00 CDT, Duration: 30 day, Stop date: 07/01/18 22:25:00 CDT, 2.08, m2 [facility] Octreotide 2018-06-02 03:26:00 No Notes: (Same As: SandoSTATIN). Refrigerate. MEDICATION WASTE Product Size: 50 microgram Product Wasted: ___ microgram [facility] Flagyl 2018-06-02 02:00:00 No Notes: (Same as: Flagyl) Avoid alcohol. [facility] Tramadol 2018-06-02 01:13:00 No Notes: Not to exceed 400mg/day. (Same As: Ultram) [facility] Hydromorphone 2018-06-02 01:13:00 No Notes: Same as: Dilaudid [facility] Ondansetron 2018-06-02 01:12:00 No Notes: (Same as: Zofran) MEDICATION WASTE Product Size: 4 mg Product Wasted: ___ mg [facility] Melatonin 2018-06-02 01:12:00 No Notes: (Sa me as: Melatonin) [facility] Bisacodyl 2018-06-02 01:12:00 No Notes: (Same As: Dulcolax, Bisco-Lax) [facility] Dextrose 50% Syringe 2018-06-02 01:12:00 No 12.5 gm, 25 mL, Route: IVP, Drug Form: INJ, Dosing Weight 87.091, kg, PRN, PRN Blood Glucose Results, Start date: 06/01/18 20:12:00 CDT, Duration: 30 day, Stop date: 07/01/18 20:11:00 CDT [facility] Glucagon 2018-06-02 01:12:00 No 1 mg, Route: IM, Drug form: PDR/INJ, PRN, Dosing Weight 87.091, kg, PRN Blood Glucose Results, Start date: 06/01/18 20:12:00 CDT, Duration: 30 day, Stop date: 07/01/18 20:11:00 CDT [facility] Calcium Gluconate 2018-06-02 01:11:00 No Notes: WASTE: F/P - Sink; E - Municipal Trash Bin [facility] Magnesium Sulfate 2018-06-02 01:11:00 No Notes: WASTE: F/P - Sink; E - Municipal Trash [facility] Potassium Chloride 2018-06-02 01:11:00 No Notes: (Same as: K-Dur 20) "Do Not Crush" Give with food and full glass of water For patients unable to swallow tablet, dissolve in one half glass of water. Allow about 2 minutes for the tablets to disintegrate. Stir before giving to prepare slurry and administer. Please exclude Patient s with feeding tube less than 14 Frisian (Dobhoff, J-tube etc) and pediatric and patients. [facility] potassium phosphate-sodium phosphate 250 mg-280 mg-160 mg oral powder for reconstitution 2018-06-02 01:11:00 No Notes: (Same as: Phos-NaK) Each 1.5 gm pkt has 250mg phosphorous. Mix w/2.5oz water and stir. [facility] potassium phosphate 2018-06-02 01:11:00 No Notes: (Same as: K Phosphate.) Do not infuse phosphorous concurrently in the same line as TPN or IVF that contains calcium. For double lumen central lines, phosphorous may be infused in a separate lumen from TPN. 1 mMol phoshate has 1.47 mEq potassium Infuse over 4 hours [facility] sodium phosphate 2018-06-02 01:11:00 No Notes: Infuse over 4 hour. Do not infuse phosphorous concurrently in the same line as TPN or IVF that contains calcium. For double lumen central lines, phosphorous may be infused in a separate lumen from TPN. [facility] Eliseo moreno Magnesium Oxide 2018-06-02 01:11:00 No Notes: (Same as: Mag-Ox 400) Magnesium oxide [id number] elemental magnesium Dose=____mg magnesium oxide (___mg elemental magnesium) [facility] lopez Ciprofloxacin 2018-06-02 01:09:00 No Notes: Do [...] 30 tab, 0 Refill(s) Juve Dos Santos pneumococcal capsular polysaccharide typ e 1 vaccine / pneumococcal capsular polysaccharide type 10A vaccine / pneumococcal capsular polysaccharide type 11A vaccine / pneumococcal capsular polysaccharide type 12F vaccine / pneumococcal capsular polysacchar 2018-06-02 00:50:32 No Notes: (Same as: Pneumovax ) Refrigerate Tahira moreno influenza virus vaccine, inactivated 2018-06-02 00:50:04 No Notes: (Same as: Fluzone Quadrivalent, Fluarix Quadrivalent) For 3 years of age and older (0.5 mL IM) Shake well before use Tahira Levon pantoprazole additive 80 mg + Sodium Chloride 0.9% IV 100 mL 2018-06-01 22:40:00 No Notes: For IV push reconstitute with 10 ml 0.9% sodium chloride and push over 2 minutes. (Same as: Protonix) [facility] Protonix 2018-06-01 22:40:00 No Notes: For IV push reconstitute with 10 ml 0.9% sodium chloride and push over 2 minutes. (Same as: Protonix) [facility] Sodium Chloride 0.9% (Bolus) IV 2018-06-01 21:42:00 No 1,000 mL, Infuse Over: 1 hr, Route: IV, ONCE, Priority: STAT, Dosing Weight 90.909 kg, Start date: 06/01/18 16:42:00 CDT, Stop date: 06/01/18 16:42:00 CDT [facility] Zofran 2018-06-01 21:41:00 No 4 mg, Route: IVP, Drug form: INJ, ONCE, Dosing Weight 90.909, kg, Priority: STAT, Start date: 06/01/18 16:41:00 CDT, Stop date: 06/01/18 16:41:00 CDT Ga robert Dos Santos Morphine 2018-06-01 21:41:00 No 4 mg, Route: IVP, ONCE, Dosing Weight 90.909, kg, Priority: STAT, Start date: 06/01/18 16:41:00 CDT, Stop date: 06/01/18 16:41:00 CDT [facility] pantoprazole 2018-06-01 14:59:00 No Notes: For IV push reconstitute with 10 ml 0.9% sodium chloride and push over 2 minutes. (Same as: Protonix) [facility] Saline Flush 0.9% 2018-06-01 14:59:00 No Notes: (Same as: BD Posiflush) [facility] Sodium Chloride 0.9% (Bolus) IV 2018-06-01 14:59:00 No 1,000 mL, 1000 ml/hr, Infuse Over: 1 hr, Route: IV, 1,000, Drug form: INJ, ONCE, Priority: STAT, Dosing Weight 90.909 kg, Start date: 06/01/18 9:59:00 CDT, Stop date: 06/01/18 9:59:00 CDT [facility] pantoprazole 2018-05-31 18:30:00 Yes Notes: For IV push reconstitute with 10 ml 0.9% sodium chloride and push over 2 minutes. (Same as: Protonix) [facility] Saline Flush 0.9% 2018-05-31 18:30:00 No Notes: (Same as: BD Posiflush) [facility] Saline Flush 0.9% 2018-04-18 23:16:00 No Notes: (Same as: BD Posiflush) [facility] Fentanyl 2017-09-16 19:34:00 No Notes: (Same as: Sublimaze) Preservative free. [facility] Saline Flush 0.9% 2017-09-16 19:29:00 No 10 mL, Route: IVP, Drug Form: INJ, Dosing Weight 77, kg, PRN, PRN Line Flush, Start date: 09/16/17 14:29:00 CDT, Duration: 30 day, Stop date: 10/16/17 14:28:00 CDT [facility] Fentanyl 2017-09-16 15:34:00 No 25 microgram, Route: IV, ONCE, Dosing Weight 74.091, kg, Start date: 09/16/17 10:34:00 CDT, Stop date: 09/16/17 10:34:00 CDT [facility] Phenergan 2017-09-16 07:39:00 No 12.5 mg, Route: IVPB, ONCE, Dosing Weight 81.818, kg, Priority: STAT, Start date: 09/16/17 2:39:00 CDT, Stop date: 09/16/17 2:39:00 CDT [facility] Morphine 2017-09-16 07:39:00 No 4 mg, Route: IVP, ONCE, Dosing Weight 81.818, kg, Priority: STAT, Start date: 09/16/17 2:39:00 CDT, Stop date: 09/16/17 2:39:00 CDT [facility] Saline Flush 0.9% 2017-09-16 07:12:00 No Notes: (Same as: BD Posiflush) [facility] GI cocktail 2017-09-16 07:02:00 No Notes: G.I. Cocktail = antacid with simethicone 22.5 mL - lidocaine viscous 7.5 mL [facility] Furosemide (Lasix) 40 Mg TABLET Furosemide (Lasix) 40 Mg TABLET 2019-08-16 00:00:00 No 40 Daily [facility] Lactulose Lactulose 2019-08-16 00:00:00 No 30 Three Times A Day [facility] Spironolactone Spironolactone 2019-08-16 00:00:00 No 50 Daily [facility] Acetaminophen With Codeine (Tylenol With Codeine #3 Ta blet) 1 Each TABLET Acetaminophen With Codeine (Tylenol With Codeine #3 Tablet) 1 Each TABLET 2019-08-14 00:00:00 No 300 [id number] as needed f or Pain [facility] Vital Signs Vital Name Observation Time Observation Value Comments Source Body Temperature 2019-08-16 22:21:00 98.2 [degF] [facility] BMI (Body Mass Index) 2019-08-14 20:11:00 30.7 kg/m2 [facility] Weight 2019-08-14 19:00:00 207.56 [lb_av] [facility] Systolic (mm Hg) 2019-02-26 17:26:00 Ton riastefano Dos Santos Diastolic (mm Hg) 2019-02-26 17:26:00 [facility] [place] Heart Rate 2019-02-26 17:26:00 [facility] Respitory Rate 2019-02-26 17:26:00 [facility] [place] Temperature Oral (F) 2019-02-26 17:26:00 97.9 F [facility] Weight 2019-02-26 17:26:00 [facility] Temperature Oral (F) 2018-08-25 01:56:00 98.2 F [facility] Systolic (mm Hg) 2018-08-25 01:56:00 Ton [facility] Diastolic (mm Hg) 2018-08-25 01:56:00 [facility] [place] Respitory Rate 2018-08-25 01:56:00 [facility] Heart Rate 2018-08-25 01:56:00 [facility] Respitory Rate 2018-08-04 09:30:00 [facility] Temperature Oral (F) 2018-08-04 09:30:00 97.9 F [facility] Systolic (mm Hg) 2018-08-04 09:30:00 Ton [facility] Diastolic (mm Hg) 2018-08-04 09:30:00 [facility] BMI Calculated 2018-08-04 05:02:00 [facility] [place] Respitory Rate 2018-08-04 05:02:00 [facility] Height 2018-08-04 05:02:00 175.26 cm [facility] [place] Weight 2018-08-04 05:02:00 [facility] Temperature Oral (F) 2018-08-04 05:02:00 98.1 F [facility] [place] Systolic (mm Hg) 2018-08-04 05:02:00 [facility] [place] Diastolic (mm Hg) 2018-08-04 05:02:00 [facility] [place] Heart Rate 2018-08-04 05:02:00 [facility] [place] Systolic (mm Hg) 2018-06-05 21:30:00 [facility] [place] Diastolic (mm Hg) 2018-06-05 21:30:00 [facility] Respitory Rate 2018-06-05 21:30:00 [facility] [place] Systolic (mm Hg) 2018-06-05 21:15:00 [facility] [place] Diastolic (mm Hg) 2018-06-05 21:15:00 [facility] Respitory Rate 2018-06-05 21:15:00 [facility] Systolic (mm Hg) 2018-06-05 21:00:00 [facility] Diastolic (mm Hg) 2018-06-05 21:00:00 [facility] [place] Respitory Rate 2018-06-05 21:00:00 [facility] [place] Heart Rate 2018-06-05 16:11:00 [facility] [place] Temperature Oral (F) 2018-06-05 16:11:00 98.1 F [facility] Temperature Oral (F) 2018-06-05 12:11:00 98 F [facility] [place] [facility] Heart Rate 2018-06-05 12:11:00 [facility] Temperature Oral (F) 2018-06-05 08:10:00 98.1 F [facility] [place] Heart Rate 2018-06-05 08:10:00 [facility] [place] [facility] BMI Calculated 2018-06-02 00:42:00 [facility] Weight 2018-06-02 00:42:00 [facility] [place] Height 2018-06-02 00:42:00 175.26 cm [facility] [place] Weight 2018-06-01 14:58:00 [facility] Weight 2018-05-31 18:08:00 [facility] Height 2018-05-31 18:08:00 175.26 cm [facility] BMI Calculated 2018-05-31 18:08:00 [facility] [place] Systolic (mm Hg) 2018-05-31 18:08:00 Ton [facility] Diastolic (mm Hg) 2018-05-31 18:08:00 [facility] [place] Respitory Rate 2018-05-31 18:08:00 [facility] [place] Heart Rate 2018-05-31 18:08:00 [facility] Temperature Oral (F) 2018-05-31 18:08:00 98.2 F [facility] [place] Systolic (mm Hg) 2018-04-18 23:05:00 [facility] [place] Diastolic (mm Hg) 2018-04-18 23:05:00 [facility] [place] Heart Rate 2018-04-18 23:05:00 [facility] Respitory Rate 2018-04-18 23:05:00 [facility] [place] Temperature Oral (F) 2018-04-18 23:05:00 98.5 F [facility] [place] Height 2018-04-18 23:05:00 175.26 cm [facility] [place] BMI Calculated 2018-04-18 23:05:00 [facility] Weight 2018-04-18 23:05:00 [facility] [place] Weight 2017-09-16 19:15:00 [facility] [place] BMI Calculated 2017-09-16 19:15:00 [facility] Height 2017-09-16 19:15:00 175.26 cm [facility] [place] Temperature Oral (F) 2017-09-16 19:15:00 99.1 F [facility] Respitory Rate 2017-09-16 19:15:00 [facility] Heart Rate 2017-09-16 19:15:00 [facility] [place] Systolic (mm Hg) 2017-09-16 19:15:00 Ton [facility] Diastolic (mm Hg) 2017-09-16 19:15:00 [facility] Temperature Oral (F) 2017-09-16 16:04:00 98.9 F [facility] Respitory Rate 2017-09-16 16:04:00 [facility] [place] Systolic (mm Hg) 2017-09-16 16:04:00 [facility] [place] Diastolic (mm Hg) 2017-09-16 16:04:00 [facility] [place] Systolic (mm Hg) 2017-09-16 15:01:00 [facility] [place] Diastolic (mm Hg) 2017-09-16 15:01:00 [facility] Respitory Rate 2017-09-16 15:01:00 [facility] Height 2017-09-16 14:07:00 175.26 cm [facility] BMI Calculated 2017-09-16 14:07:00 [facility] Weight 2017-09-16 14:07:00 [facility] [place] Systolic (mm Hg) 2017-09-16 14:03:00 Ton [facility] Diastolic (mm Hg) 2017-09-16 14:03:00 [facility] [place] Respitory Rate 2017-09-16 14:03:00 [facility] [place] Temperature Oral (F) 2017-09-16 13:01:00 99.0 F [facility] [place] Heart Rate 2017-09-16 11:10:00 [facility] Heart Rate 2017-09-16 09:30:00 [facility] [place] Weight 2017-09-16 06:48:00 [facility] [place] Temperature Oral (F) 2017-09-16 06:48:00 99 F [facility] Heart Rate 2017-09-16 06:48:00 [facility] Procedures Procedure Date / Time Performed Performing Clinician Soursonu e Computed tomography of abdomen and pelvis with contrast 00:00:00 [facility] Computed tomography of brain without radiopaque contrast 2019-08 00:00:00 [facility] Exploratory laparotomy [facility] Plan of Care Planned Activity Planned Date Details Comments Source Instructions Cirrhosis [facility] Encounters Start Date/Time End Date/Time Encounter Type Admission Type Att[facility] Care Department Encounter ID Source 2019-08-15 11:21:00 2019-08-14 06:12:00 Admitted Inpatient 1 GOLDEN WANG [facility] [id number] [facility] 2019-02-26 11:19:29 2019-02-26 14:42:00 Outpatient Mary Banks [facility] [id number] 2019-02-26 11:19:00 2019-02-26 11:19:00 Emergency E [id number] 2018-08-24 20:55:56 2018-08-25 00:12:00 Outpatient Mary Banks [facility] [id number] 2018-08-24 20:55:00 2018-08-24 20:55:00 Emergency E [id number] 2018-08-03 23:59:28 2018-08-04 05:44:00 Outpatient Mary Banks MHSE MHSE [id number] 2018-08-03 23:59:00 2018-08-03 23:59:00 Emergency E MHSE MHSE 7[facility] 2018-06-01 09:37:00 2018-06-05 18:35:00 Outpatient Nabeel Hough iPL MHPL [id number] 2018-05-31 12:19:00 2018-05-31 19:22:00 Outpatient Mary BanksSE MHSE [id number] 2018-04-18 16:46:00 2018-04-18 20:32:00 Outpatient Ihglynn, Varinder U MHSE MHSE [id number] 2018-04-18 16:46:00 2018-04-18 20:32:00 Outpatient Iheme, Varinder U MHSE MHSE [id number] 2018-04-18 16:46:00 2018-04-18 16:46:00 Emergency E MHSE MHSE 7501 [facility] 2017-09-16 13:46:00 2017-09-16 15:34:00 Outpatient F Pauline stearns MHPL MHPL [id number] 2017-09-16 01:41:00 2017-09-16 12:59:00 Outpatient Zandra Justice MHSE MHSE [id number] 2017-06-15 15:53:00 2017-06-20 17:14:00 Discharged Inpatient ER [facility] [id number] [facility] Results Test Description Test Time Test Comments Results Result Comments Source CT ABDOMEN/PELVIS W 2019-08-23 14:47:00 [facility] [address] [place] [address] Patient Name: JOCELIN CORREA MR #: [id number] : 1970 Age/Sex: 49/M Req #: [id number] Adm Physician: Ordered by: RACHAEL HAN DO Report #: [id number] Location: ER Room/Bed: Procedure: [id number] CT/CT ABDOMEN/PELVIS W Exam Date: 08/23/19 Exam Time: 1400 REPORT STATUS: Signed EXAM: CT Abdomen and Pelvis WITH intravenous contrast INDICATION: Abdominal pain COMPARISON: CT abdomen and pelvis of 08/14/2019 TECHNIQUE: Abdomen and pelvis were scanned utilizing a multidetector helical scanner from the lung base to the pubic symphysis after administration of IV contrast. Coronal and sagittal reformations were obtained. Routine protocol was performed. Scan was performed during portal venous phase. IV CONTRAST: 100mL of Isovue 370 ORAL CONTRAST: None RADIATION DOSE: Total DLP: 732 mGy*cm Dose modulation, iterative reconstruction, and/or weight based adjustment of the mA/kV was utilized to reduce the radiation dose to as low as reasonably achievable. FINDINGS: LOWER THORAX: Normal. HEPATOBILIARY: Diffuse hepatic steatosis. Mildly nodular liver surface contour compatible with early hepatic cirrhosis. Unremarkable gallbladder. Likely acute thrombus in the main portal vein (axial image 24). SPLEEN: Splenomegaly to 13.7 cm. PANCREAS: No focal masses or ductal dilatation. ADRENALS: No adrenal nodules. KIDNEYS/URETERS: 3 mm right midpole nonobstructive renal calculus. No hydronephrosis or solid mass lesion. PELVIC ORGANS/BLADDER: Unremarkable. PERITONEUM / RETROPERITONEUM: Trace free fluid. No free air. LYMPH NODES: No lymphadenopathy. VESSELS: Portal vein thrombosis. See hepatobiliary section. GI TRACT: No abnormal bowel thickening. No bowel obstruction. Normal appendix. BONES AND SOFT TISSUES: Unremarkable. IMPRESSION: Acute nonocclusive main portal vein thrombus. Diffuse hepatic steatosis and cirrhotic liver contour. Splenomegaly. 3 mm right midpole nonobstructive renal calculus. No hydronephrosis. Signed by: Nayeli Chappell MD on 08/23/2019 2:54 PM Dictated By: NAYELI CHAPPELL MD [id number] Transcribed By: ZAHEER on 08/23/19 [id number] COPY TO: RACHAEL HAN DO Blood leukocytes automated count (number/volume) 2019-08-16 05:10:00 Test Item White Blood Count (test code = 6690-2) 2.51 4.8-10.8 [facility] automated count (number/volume)2019-08-16 05:10:00* Test Item Value Reference Range Interpretation Comments Red Blood Count (test code = 789-8) 3.18 4.3-5.7 [facility] CenterBlood hemoglobin measurement (moles/volume)2019-08-16 05:10:00* Test Item Value Reference Range Interpretation Comments Hemoglobin (test code = 27544-8) 7.0 14.0-18.0 [facility] CenterAutomated blood hematocrit (volume fraction)2019-08-16 05:10:00* Test Item Value Reference Range Interpretation Comments Hematocrit (test code = 4544-3) 24.3 38.2-49.6 [facility] CenterAutomated erythrocyte mean corpuscular wgyttb2473-70-25 05:10:00* Test Item Value Reference Range Interpretation Comments Mean Corpuscular Volume (test code = 787-2) 76.4 81-99 [facility] CenterAutomated erythrocyte mean corpuscular hemoglobin (mass per erythrocyte)2019-08-16 05:10:00* Test Item Value Reference Range Interpretation Comments Mean Corpuscular Hemoglobin (test code = 785-6) 22.0 28-32 [facility] CenterAutomated erythrocyte mean corpuscular hemoglobin concentration measurement (mass/volume)2019-08-16 05:10:00* Test Item Value Reference Range Interpretation Comments Mean Corpuscular Hemoglobin Concent (test code = 786-4) 28.8 31-35 [facility] CenterRDW PldAa-Hvj8916-75-05 05:10:00* Test Item Value Reference Range Interpretation Comments Red Cell Distribution Width (test code = 25425-4) 20.0 11.7 -14.4 [facility] CenterAutomated blood platelet count (count/volume)2019-08-16 05:10:00* Test Item Value Reference Range Interpretation Comments Platelet Count (test code = 777-3) 50 140-360 [facility] CenterAutomated blood segmented neutrophil count as percentage of total vjwuludqtc0989-99-70 05:10:00* Test Item Value Reference Range Interpretation Comments Neutrophils (%) (Auto) (test code = 45444-5) 52.6 38.7-80.0 [facility] CenterAutomated blood lymphocyte count as percentage ot total edjncohjcz6353-30-13 05:10:00* Test Item Value Reference Range Interpretation Comments Lymphocytes (%) (Auto) (test code = 736-9) 17.9 18.0-39.1 [facility] CenterAutomated blood monocyte count as percentage of total oleilurdus8889-72-17 05:10:00* Test Item Value Reference Range Interpretation Comments Monocytes (%) (Auto) (test code = 5905-5) 18.3 4.4-11.3 [facility] CenterAutomated blood eosinophil count as percentage of total mcgnqpswof4793-38-22 05:10:00* Test Item Value Reference Range Interpretation Comments Eosinophils (%) (Auto) (test code = 713-8) 10.0 0.0-6.0 [facility] CenterAutomated blood basophil count as percentage of total fbnvxwwjeh2518-28-49 05:10:00* Test Item Value Reference Range Interpretation Comments Basophils (%) (Auto) (test code = 706-2) 0.8 0.0-1.0 [facility] CenterFluoroscopic procedure less than one hour brogryrp7757-96-80 05:10:00* Test Item Value Reference Range Interpretation Comments IM GRANULOCYTES % (test code = IM GRANULOCYTES %) 0.4 0.0- 1.0 [facility] CenterAutomated blood neutrophil count 2019-08-16 05:10:00* Test Item Value Reference Range Interpretation Comments Neutrophils # (Auto) (test code = 751-8) 1.3 2.1-6.9 [facility] CenterBlood lymphocytes count (number/volume) 2019-08-16 05:10:00* Test Item Value Reference Range Interpretation Comments Lymphocytes # (Auto) (test code = 09072-3) 0.5 1.0-3.2 [facility] CenterBlood monocytes automated count (number/volume)2019-08-16 05:10:00* Test Item Value Reference Range Interpretation Comments Monocytes # (Auto) (test code = 742-7) 0.5 0.2-0.8 [facility] CenterAutomated blood eosinophil count 2019-08-16 05:10:00* Test Item Value Reference Range Interpretation Comments Eosinophils # (Auto) (test code = 711-2) 0.3 0.0-0.4 [facility] CenterAutomated blood basophil count (count/volume)2019-08-16 05:10:00* Test Item Value Reference Range Interpretation Comments Basophils # (Auto) (test code = 704-7) 0.0 0.0-0.1 [facility] CenterFluoroscopic procedure less than one hour bnrcinif2427-72-48 05:10:00* Test Item Value Reference Range Interpretation Comments Absolute Immature Granulocyte (auto ([place] t code = Absolute Immature Granulocyte (auto) 0.01 0-0.1 [facility] CenterBlood platelets count by estimate (number/volume)2019-08-16 05:10:00* Test Item Value Reference Range Interpretation Comments Platelet Estimate (test code = 92045-4) MARKEDLY DECREASED [facility] CenterPlatelet gymlbuxyju0476-22-57 05:10:00* Test Item Value Reference Range Interpretation Comments Platelet Morphology Comment (test code = 82637-8) NORMAL NO EDTA PLT CLUMPS SEENChild[facility] Regional Medical CenterBlood hypochromia detection by light vvswnlnwxw3224-65-50 05:10:00* Test Item Value Reference Range Interpretation Comments Hypochromasia (test code = 728-6) MODERATE [facility] Hospitalerum or plasma sodium measurement (moles/volume)2019-08-16 05:10:00* Test Item Value Reference Range Interpretation Comments Sodium Level (test code = 2951-2) 130 136-145 [facility] Hospitalerum or plasma potassium measurement (moles/volume)2019-08-16 05:10:00* Test Item Value Reference Range Interpretation Comments Potassium Level (test code = 2823-3) 3.3 3.5-5.1 [facility] Hospitalerum or plasma chloride measurement (moles/volume)2019-08-16 05:10:00* Test Item Value Reference Range Interpretation Comments Chloride Level (test code = 2075-0) 97 98-107 [facility] Hospitalerum or plasma carbon dioxide, total measurement (moles/volume)2019-08-16 05:10:00* Test Item Value Reference Range Interpretation Comments Carbon Dioxide Level (test code = 2028-9) 26 22-29 [facility] Hospitalerum or plasma anion bdx6612-66-16 05:10:00* Test Item Value Reference Range Interpretation Comments Anion Gap (test code = 74792-5) 10.3 8-16 [facility] Hospitalerum or plasma urea nitrogen measurement (mass/volume)2019-08-16 05:10:00* Test Item Value Reference Range Interpretation Comments Blood Urea Nitrogen (test code = 3094-0) 11 7-26 [facility] Hospitalerum or plasma creatinine measurement (mass/volume)2019-08-16 05:10:00* Test Item Value Reference Range Interpretation Comments Creatinine (test code = 2160-0) 1.02 0.72-1.25 [facility] Hospitalerum or plasma urea nitrogen/creatinine mass fzzku6055-12-52 05:10:00* Test Item Value Reference Range Interpretation Comments BUN/Creatinine Ratio (test code = 3097-3) 11 - [facility] CenterEstimated glomerular filtration rate (GFR) ykiakjkvcyaxs0025-74-09 05:10:00* Test Item Value Reference Range Interpretation Comments Estimat Glomerular Filtration Rate (test code = 336766523) > 60 >60 Ranges were taken from the National Kidney Disease Education Program and the [facility] Kidney Foundation literature.Reference ranges:60 or greater: Pttddx24-68 ( for 3 consecutive months): Chronic kidney disease 15 or less: Kidney failureChildress Regional Medical CenterGlucose qlcqahlvyll0413-90-74 05:10:00* Test Item Value Reference Range Interpretation Comments Glucose Level (test code = XHB6465) 83 74-118 [facility] Hospitalerum or plasma calcium measurement (mass/volume)2019-08-16 05:10:00* Test Item Value Reference Range Interpretation Comments Calcium Level (test code = 38697-3) 8.0 8.4-10.2 [facility] Hospitalerum or plasma total bilirubin measurement (mass/volume)2019-08-16 05:10:00* Test Item Value Reference Range Interpretation Comments Total Bilirubin (test code = 1975-2) 2.3 0.2-1.2 [facility] CenterFluoroscopic procedure less than one hour cxpaprqy3307-06-25 05:10:00* Test Item Value Reference Range Interpretation Comments Aspartate Amino Transf (AST/SGOT) (test code = Aspartate Amino Transf (AST/SGOT)) 56 5-34 [facility] Hospitalerum or plasma alanine aminotransferase measurement (enzymatic activity/volume)2019-08-16 05:10:00* Test Item Value Reference Range Interpretation Comments Alanine Aminotransferase (ALT/SGPT) (test code = 1742-6) 20 0-55 [facility] CenterAmmonia Ato-uRay7434-45-05 05:10:00* Test Item Value Reference Range Interpretation Comments Ammonia (test code = 37883-4) 75 31-123 [facility] Hospitalerum or plasma protein measurement (mass/volume)2019-08-16 05:10:00* Test Item Value Reference Range Interpretation Comments Total Protein (test code = 2885-2) 7.9 6.5-8.1 [facility] Hospitalerum or plasma albumin measurement (mass/volume)2019-08-16 05:10:00* Test Item Value Reference Range Interpretation Comments Albumin (test code = 1751-7) 2.7 3.5-5.0 [facility] CenterPlasma globulin measurement (mass/volume) 2019-08-16 05:10:00* Test Item Value Reference Range Interpretation Comments Globulin (test code = 86480-0) 5.2 2.3-3.5 [facility] Hospitalerum or plasma albumin/globulin mass jbaoc5454-75-15 05:10:00* Test Item Value Reference Range Interpretation Comments Albumin/Globulin Ratio (test code = 1759-0) 0.5 0.8-2.0 [facility] Hospitalerum or plasma alkaline phosphatase measurement (enzymatic activity/volume)2019-08-16 05:10:00* Test Item Value Reference Range Interpretation Comments Alkaline Phosphatase (test code = 6768-6) 74 40-150 [facility] Hospitalerum or plasma lipase measurement (enzymatic activity/volume)2019-08-16 05:10:00* Test Item Value Reference Range Interpretation Comments Lipase (test code = 3040-3) 24 8-78 [facility] Hospitaltool gastrointestinal hemoglobin kmbsrqhys1611-32-27 20:05:00* Test Item Value Reference Range Interpretation Comments Stool Occult Blood (test code = 2335-8) NEGATIVE NEGATIVE [facility] CenterBlood polychromasia detection by light qfaxwhrpmo3830-75-35 05:15:00* Test Item Value Reference Range Interpretation Comments Polychromasia (test code = 22563-6) FEW [facility] CenterBlood anisocytosis detection by light hgaxrlkidh7375-08-84 05:15:00* Test Item Value Reference Range Interpretation Comments Anisocytosis (test code = 702-1) MODERATE [facility] CenterBlood ovalocytes detection by light uctrxfxowk9118-00-12 05:15:00* Test Item Value Reference Range Interpretation Comments Ovalocytes (test code = 774-0) MODERATE [facility] CenterRBC ykdnzeqwqr6799-63-41 05:15:00* Test Item Value Reference Range Interpretation Comments Red Cell Morphology Comment (test code = 6742-1) ABNORMAL [facility] Hospitalerum or plasma magnesium measurement (mass/volume)2019-08-15 05:15:00* Test Item Value Reference Range Interpretation Comments Magnesium Level (test code = 09352-4) 1.6 1.3-2.1 [facility] Hospitalerum or plasma creatine kinase measurement (enzymatic activity/volume)2019-08-15 05:15:00* Test Item Value Reference Range Interpretation Comments Creatine Kinase (test code = 2157-6) 253 30-200 [facility] CenterUrine color inusbjapjadsq8253-01-28 08:54:00* Test Item Value Reference Range Interpretation Comments Urine Color (test code = 5778-6) YELLOW YELLOW [facility] CenterUrine wjabjdg5003-59-47 08:54:00* Test Item Value Reference Range Interpretation Comments Urine Clarity (test code = 76374-5) CLEAR CLEAR [facility] Hospitalpecific gravity of Urine by Test strip 2019-08-14 08:54:00* Test Item Value Reference Range Interpretation Comments Urine Specific Cameron (test code = 5811-5) 1.015 1.010-1.02 5 [facility] CenterUrine pH measurement by automated test bgqba9179-25-34 08:54:00* Test Item Value Reference Range Interpretation Comments Urine pH (test code = 43935-4) 7 5-7 [facility] CenterUrine leukocyte esterase detection by rivctonn3467-36-66 08:54:00* Test Item Value Reference Range Interpretation Comments Urine Leukocyte Esterase (test code = 5799-2) NEGATIVE NEGATIVE [facility] CenterUrine nitrite gvpswuidm0729-42-65 08:54:00* Test Item Value Reference Range Interpretation Comments Urine Nitrite (test code = 60830-2) NEGATIVE NEGATIVE [facility] CenterUrine protein measurement by test strip (mass/volume)2019-08-14 08:54:00* Test Item Value Reference Range Interpretation Comments Urine Protein (test code = 5804-0) NEGATIVE NEGATIVE [facility] CenterUrine glucose jccvrvugi9808-16-88 08:54:00* Test Item Value Reference Range Interpretation Comments Urine Glucose (UA) (test code = 2349-9) NEGATIVE NEGATIVE [facility] CenterUrine ketones detection by automated test zbjgb0161-96-26 08:54:00* Test Item Value Reference Range Interpretation Comments Urine Ketones (test code = 48944-2) NEGATIVE NEGATIVE [facility] CenterUrine opiates screening iumn1646-60-23 08:54:00* Test Item Value Reference Range Interpretation Comments Urine Opiates Screen (test code = 75928-6) NEGATIVE NEGATIVE ALL TESTS PERFORMED MANUALLY ON [employer] TOX/SEE TESTChildress Regional Medical CenterBarbiturates screen, qttyy5617-66-88 08:54:00* Test Item Value Reference Range Interpretation Comments Urine Barbiturates Screen (test code = 842149458) NEGATIVE NEGA TIVE [facility] CenterUrine phencyclidine detection by screening fdmnpq9806-75-50 08:54:00* Test Item Value Reference Range Interpretation Comments Urine Phencyclidine Screen (test code = 00684-7) NEGATIVE NEGAT ELSIE [facility] CenterUrine amphetamines detection by screen method > 1000 ng/sY6358-73-23 08:54:00* Test Item Value Reference Range Interpretation Comments Urine Amphetamines Screen (test code = 31798-7) NEGATIVE NEGATI VE [facility] CenterFluoroscopic procedure less than one hour cesngwlx3629-68-47 08:54:00* Test Item Value Reference Range Interpretation Comments Urine Methamphetamines Screen (test code = Urine Metha mphetamines Screen) NEGATIVE NEGATIVE [facility] CenterUrine benzodiazepines detection by screening itquel9813-28-01 08:54:00* Test Item Value Reference Range Interpretation Comments Urine Benzodiazepines Screen (test code = 74464-0) NEGATIVE NEG ATIVE [facility] CenterUrine cocaine measurement (mass/volume) 2019-08-14 08:54:00* Test Item Value Reference Range Interpretation Comments Urine Cocaine Screen (test code = 3398-5) NEGATIVE NEGATIVE [facility] CenterUrine cannabinoids detection by screening igrafc2726-27-85 08:54:00* Test Item Value Reference Range Interpretation Comments Urine Cannabinoids Screen (test code = 71637-2) NEGATIVE NEGATI VE THESE RESULTS ARE FOR MEDICAL TREATMENT ONLYTHIS REPORT CONTAINS UNCONFIR MED SCREENING RESULTS*POSITIVE RESULTS WILL BE CONFIRMED BY REFERENCE LAB UPON R EQUEST CUT-OFFDRUG CLASS CONCENTRATION ng/mLAmphetamines 1000Methamphetamines 1000Cocaine 300Opiate 300Phencyc lidine 25Cannabinoid 50Barbiturates 300Benzodiazepine 300Methadone 300[facility] HospitalUrine methadone pcxqoy0982-89-12 08:54:00* Test Item Value Reference Range Interpretation Comments Urine Methadone Screen (test code = 36062-9) NEGATIVE NEGATIVE THESE RESULTS ARE FOR MEDICAL TREATMENT ONLYTHIS REPORT CONTAINS UNCONFIR MED SCREENING RESULTS*POSITIVE RESULTS WILL BE CONFIRMED BY REFERENCE LAB UPON R EQUEST CUT-OFFDRUG CLASS CONCENTRATION ng/mLAmphetamines 1000Methamphetamines 1000Cocaine Metabolite 300Opiate 300Phencyc lidine 25Cannabinoid 50Barbiturates 300Benzodiazepine 300Methadone 300[facility] HospitalUrine urobilinogen measurement by test strip (mass/volume)2019-08-14 08:54:00* Test Item Value Reference Range Interpretation Comments Urine Urobilinogen (test code = 26940-7) 0.2 0.2-1 [facility] CenterUrine total bilirubin measurement (mass/volume)2019-08-14 08:54:00* Test Item Value Reference Range Interpretation Comments Urine Bilirubin (test code = 1978-6) NEGATIVE NEGATIVE [facility] CenterUrine erythrocytes wwdhjrywz0161-14-66 08:54:00* Test Item Value Reference Range Interpretation Comments Urine Blood (test code = 17010-9) MODERATE NEGATIVE [facility] CenterAutomated urine sediment leukocyte count by microscopy (number/high power field)2019-08-14 08:54:00* Test Item Value Reference Range Interpretation Comments Urine WBC (test code = 5821-4) 21-50 0-5 [facility] CenterErythrocytes detection in urine sediment by light xjvbjtuvyh8465-10-55 08:54:00* Test Item Value Reference Range Interpretation Comments Urine RBC (test code = 91086-9) >50 0-5 [facility] CenterBacteria detection in urine sediment by light phcwoyyaxl9765-87-99 08:54:00* Test Item Value Reference Range Interpretation Comments Urine Bacteria (test code = 64477-6) FEW NONE [facility] CenterEpithelial cells detection in urine sediment by light hltoctlide4182-01-94 08:54:00* Test Item Value Reference Range Interpretation Comments Urine Epithelial Cells (test code = 22114-3) MANY NONE [facility] CenterFluoroscopic procedure less than one hour txykcgik7675-46-97 08:54:00* Test Item Value Reference Range Interpretation [...] complexity tests.Testing performed by [facility] [id number] [phone] Director: Francisco Javier Barth M.D.CLIA # [id number] [facility] Bacterial urine whmxjsl6093-91-09 08:54:00* Test Item Value Reference Range Interpretation Comments Urine Culture (test code = 630-4) ENTEROCOCCUS FAECALIS [facility] CenterCT ABDOMEN/PELVIS Q3774-72-10 08:48:00 [facility] [address] [address] Patient Name: JOCELIN CORREA MR #: [id number] : 1970 Age/Sex: 49/M Req #: [id number] Adm Physician: Ordered by: ABA LOYA MD Report #: [id number] Location: ER Room/Bed: Procedure: CT/CT A BDOMEN/PELVIS W Exam Date: 08/14/19 Exam Time: 814 REPORT STATUS: Signed EXAMINATIO N: CT of [...] COPY TO: ABA LOYA MD CT BRAIN QF9005-44-89 08:33:[address] [address] Patient Name: JOCELIN CORREA MR #: [id number] : 1970 Age/Sex: 49/M Req #: [id number] Adm Physician: Ordered by: GOLDEN WANG MD Rep ort #: [id number] Location: Room/B ed: Procedure: [id number] CT/CT BRAIN WO Exam Date: 08/14/19 Exam [...] 8:38 AM Dictated By: Irma WOODS MD 38 Transcribed By: ZAHEER on 08/14/19 08 COPY TO: GOLDEN WANG MD Blood platelet clump detection by light paabkmwtjq0396-59-49 05:25:00* Test Item Value Reference Range Interpretation Comments Clumped Platelets (test code = 7796-6) NONE NONE [facility] CenterBlood poikilocytosis detection by light uokehzqhzj4570-51-05 05:25:00* Test Item Value Reference Range Interpretation Comments Poikilocytosis (test code = 779-9) SLIGHT [facility] Hospitalerum or plasma creatine kinase MB measurement (mass/volume)2019-08-14 05:25:00* Test Item Value Reference Range Interpretation Comments Creatine Kinase MB (test code = 59469-7) 2.60 0-5.0 [facility] CenterTroponin I measurement by highly sensitive enzyme twcsdypsyxi7636-27-21 05:25:00* Test Item Value Reference Range Interpretation Comments Troponin I (test code = 45456-2) 0.008 0-0.300 [facility] Hospitalerum or plasma amylase measurement (enzymatic activity/volume)2019-08-14 05:25:00* Test Item Value Reference Range Interpretation Comments Amylase Level (test code = 1798-8) 98 25-125 [facility] Hospitalerum or plasma acetaminophen measurement by screening method (mass/volume)2019-08-14 05:25:00* Test Item Value Reference Range Interpretation Comments Acetaminophen Level (test code = 10404-5) < 3.0 10-30 [facility] Hospitalerum or plasma ethanol measurement (mass/volume)2019-08-14 05:25:00* Test Item Value Reference Range Interpretation Comments Ethyl Alcohol Level (test code = 5643-2) 301.6 0.0-10.0 [facility] CenterCARDIAC QTKEDHH5300-55-00 17:40:00<0.02 [facility] HermannCHEM WQNJV1833-83-05 17:40:01504Bxtvylob HermannELECTROLYTES 2019-02-26 17:40:009.5[facility] NohezfnQVGTEBJGKOFG2093-79-13 17:40:00* Test Item Value Reference Range Interpretation Comments B/C Ratio (test code = B/C Ratio) 12 1 6-25 [facility] TezpcgzRCHCJHNKKOAX9399-39-53 17:40:006.2[facility] HermannELECTROLYTES 2019-02-26 17:40:00* Test Item Value Reference Range Interpretation Comments A/G Ratio (test code = A/G Ratio) 0.4 1 0.7-1.6 [facility] KsddmaoASHKTALDTSWN2938-84-65 17:40:0086[facility] HermannELECTROLYTES 2019-02-26 17:40:0011[facility] QrslgfuGTBAYSYRYZEF9205-93-93 17:40:000.92[facility] JycnfvvHYOJSXEEXTTS2530-95-80 17:40:99038Mseaskdr BxfzdruNBYQCQLSHJJI6652-25-44 17:40:003.5[facility] DtvpifyULIQUMSIEWTR5750-59-99 17:40:91230Zdpcdenz [place] ITAZKGVIHMAI1318-34-60 17:40:0026[facility] HgmxoveCPSBNULNEDWU2446-53-58 17:40:00 8.3[facility] AlmtgdcGOAMBEHPJQWA9881-55-24 17:40:008.5[facility] Levon XZWMSYZNTGTN5921-17-71 17:40:002.3[facility] CgvxusmBEVOMDJYWATN3580-51-25 17:40:0040[facility] ZquogesSUZQVIELHRIN0019-68-12 17:40:00718Bpdtgogp [place] HULOACTGNDCB3206-72-72 17:40:0073[facility] ZoizvorETBFSVVOMVSD2344-20-85 17:40:00 0.7[facility] HnkfenaPALYLCCSWZVN8609-89-29 17:40:0098[facility] HermannHEMATOLOGY 2019-02-26 17:40:00See Note (02/26/19 11:40 AM)[facility]annHEMATOLOGY 2019-02-26 17:40:00Normal (02/26/19 11:40 AM)[facility]annHEMATOLOGY 2019-02-26 17:40:0041.5[facility] IegdgciUZQRQWLGON5625-98-82 17:40:0032.8[facility] AtqdwskYJFEZFJDYC2611-33-38 17:40:0012.4[facility] EllkswuNWSPVOTJOZ3965-24-71 17:40:0012.3[facility] HruiaraQOZCAEMHZG4476-23-02 17:40:001.0[facility] [place] HQGISPRXZT2274-55-57 17:40:001.3[facility] ThydyhvTWHPOHCEOG8430-94-47 17:40:001.0 [facility] JhcnhtiCQDCDSRYAD3656-64-36 17:40:000.4[facility] HermannHEMATOLOGY 2019-02-26 17:40:000.4[facility] ZyflikqOZUUAXFFYN8951-79-77 17:40:001+ *ABN*(02/26/19 11:40 AM)[facility] AhfyaxxRCHMRHLZAU1221-59-20 17:40:001+ *ABN*(02/26/19 11:40 AM)[facility] KvwhhnoAMAFKNVNIP7890-79-62 17:40:002+ (02/26/19 11:40 AM)[facility] QtayugoCBNEFPCNGC2766-52-52 17:40:003.1[facility] DtebpdpFAALCSYWMM7756-83-55 17:40:003.80[facility]t LkuxlimZTQRQTMUZM2294-92-26 17:40:008.6[facility] GokxarcXDBWSNGNIS9828-26-26 17:40:0027.3[facility] [place] EVWVDRWCDQ0342-88-45 17:40:0072.0[facility] BaykwljOGNFRYVMZN7641-16-64 17:40:00* Test Item Value Reference Range Interpretation Comments MCH (test code = MCH) 22.6 pg 27.0-31.0 [facility]NtbbirgQDRPYLYTON2700-99-34 17:40:0031.4[facility]annHEMATOLOGY 2019-02-26 17:40:0021.4[facility] IhbcaucOWROMKTQFP5637-14-30 17:40:0043[facility] XnboinwXMZZQILPCR8847-48-53 17:40:009.0[facility] CenterKoxfnxnBIPDHWYKVC9662-88-66 17:40:00* Test Item Value Reference Range Interpretation Comments PT (test code = PT) 15.4 s 12.0-14.7 [facility] WestSvxottnXXIMAACQWU9706-12-10 17:40:00* Test Item Value Reference Range Interpretation Comments INR (test code = INR) 1.21 1 0.85-1.17 [facility]nAZUYAJYHSC0082-88-30 17:40:00* Test Item Value Reference Range Interpretation Comments PTT (test code = PTT) 32.4 s 22.9-35.8 [facility] ACINSOHT2838-94-47 08:25:00* Test Item Value Reference Range Interpretation [...] Urine Source? Clean CatchDRUGS OF ABUSE SCREEN SZ3577-29-19 08:25:00* Test Item Value Reference Range Interpretation [...] NEGATIVE <300 ng/mL Urine Source? Clean CatchURINALYSIS BOPXJMFT3616-64-30 08:14:00* Test Item Value Reference Range Interpretation [...] Urine Source? Clean CatchDRUGS OF ABUSE SCREEN EN8898-34-63 08:14:00* Test Item Value Reference Range Interpretation [...] Source? Clean Catch- CT ABD PELVIS W/O [id number] 08:02:00 Name: JOCELIN CORREA [facility] : 1970 Age[facility]S: 48 / [facility] [address] [facility] [address] [facility]: [id number] Loc: [place] [address] Phys: Melania Roberts MD Acct: [id number] Di s Date: Status: REG ER PHONE #: Exam Date: 01/15/2019 0739 FAX #: Reason: abdominal pain EXAMS: CPT CODE: [id number] CT ABD PELVIS W/O CONT 14291 REASON FOR EXAM: abdomina l pain EXAM [...] 1 Signed Report (CONTINUED) Name: MICHELLE CORREA [facility] : 1970 Age/S : 48 / M [address] Unit #: [id number] Loc: [place] [address] Phys: Maryan Roberts MD Acct: [id number] Dis Date: Status: REG ER PHONE #: [phone] Ex am Date: 01/15/2019 07 FAX #: [phone] Reason: a bdominal pain EXAMS: CPT CODE: [id number] CT ABD PELVIS W/O CONT 88514 <Continued> Abdominal vascular structures: Grossly normal Peritoneum [...] an ultrasound. Nonobstructing right-sided nephrolithiasis. Location: [facility] at 0802 Reported and signed by: Steve Long MD CC: Maryan Roberts MD Technologist:Tian Mandujano RT(R),(MR),(C T) CTDI: DLP: Trnscb Date/Time: 01/15/2019 (08) [email or web address] Orig Print D/T: S: 01/15/2019 (08) PAGE 2 Signed Report BASIC METABOLIC PANEL [...] CA) 8.8 mg/dL 8.5-10.1 N HEPATIC FUNCTION [id number] 06:53:00* Test Item Value Reference Range Interpretation [...] reference range due to change in reagent. [id number] 06:53:00* Test Item Value Reference Range Interpretation Comments LIPASE (test code = LIP) 202 U/L 73.0-393.0 N ETCYAOHW-H5983-43-05 06:53:00* Test Item Value Reference Range Interpretation Comments TROPONIN-I (test code = TROPI) <0.015 ng/mL 0-0.045 N GCGGNXZ3158-50-24 06:53:00* Test Item Value Reference Range Interpretation Comments ALCOHOL (test code = ALC) 93 mg/dL 0.0-3.0 H -- INTERPRETIVE DATA NOTE: POSITIVE SCREENING RESULTS SHOULD BE CONSIDERED PRESUMPTIVE.WHEN COLLECTED FOR MEDICAL PURPOSES ONLY. SPECIMEN WILL NOTBE COLLECTED BY CHAIN OF CUSTODY.IF A CONFIRMATION OF POSITIVE RESULTS IS DESIRED, ACONFIRMATION TEST MUST BE REQUESTED BY THE PHYSICIAN AT ANADDITIONAL CHARGE TO THE PATIENT. [id number] 06:52:00* Test Item Value Reference Range Interpretation Comments AMMONIA (test code = AMM) 83 umol/L 11-32 H CBC W/O QHJH3848-12-73 06:39:00* Test Item Value Reference Range Interpretation [...] 10.1 fL 6.7-11.0 N - US ABDOMEN EGFGSVRO4448-47-14 09:19:00 Name: CHELLY CORREA [facility] : 1970 Age/S: 48 / M [address] Unit #: [id number] Loc: [place] [address] Phys: González Nunez MD Acct: [id number] Dis Date: Status: REG CLI PHONE #: [phone] Exam Date: 12/25/2018 0855 FAX #: [phone] Reason: 571.5,K74.60,211.3,D12.6,V85.25,E66.3 EXAMS: CPT CODE: [id number] US ABDOMEN COMPLETE 14512 REASON FOR EXAM: 571.5,K7 4.60,211.3,D12.6,V85.25,E66.3 EXAM ORDER DATE: 12/25/2018 8:14 AM Attending M.D.: González Nunez MD PROCEDURE: - US ABDO [...] 1 Signed Report (CONTINUED) Name: CHELLY CORREA [facility] : 1970 Age/S: 48 / M [address] [facility] Unit #: [id number] Loc: [place] [address] Phys: González Nunez MD Acct: [id number] Dis Date: Status: REG CLI PHONE #: [phone] Exam Date: 12/25/2018 0855 FAX #: [phone] Reason: 571.5,K74.60,211.3,D12.6,V85.25,E66.3 EXAMS: CPT CODE: [id number] US ABDOMEN COMPLETE 30597 < Continued> Left kidney: parenchyma echogenicity: Normal [...] MD; Lety Hopson MD Technologist: TERRY RIZVI RT(R),MS Trnscb Date/Time: 12/25/2018 (918) [email or web address] Orig Print D/T: S: 12/25/2018 (09) Probe: PAGE 2 Signed Report [id number] 16:26:00* Test Item Value Reference Range Interpretation Comments GLUBED (test code = GLUBED) 101 mg/dL 74-106 N Performed by certified head sugar reprocess operator at [facility] CBC W/AUTO [id number] 09:15:00* Test Item Value Reference Range Interpretation [...] = MDIFF) NO, ONLY SCAN NEEDED DIFFERENTIAL [id number] 09:15:00* Test Item Value Reference Range Interpretation Comments STAIN ACCEPTABILITY (test code = STN ACCEPTABLE) STAIN ACCEPTABLE HYPOCHROMIA (test code = HYPO) 1+ ANISOCYTOSIS (test code = ANISO) 2+ MICROCYTOSIS (test code = MICR) 1+ MORPHOLOGY COMMENT (test code = MOC) NORMAL PLATELET ESTIMATE (test code = PLTEST) DECREASED COMPREHENSIVE METABOLIC [id number] 08:48:00* Test Item Value Reference Range Interpretation [...] FESAT) 5.80 % 13-45 L THYROID STIMULATING SRVVEBW2271-54-13 08:48:00* Test Item Value Reference Range Interpretation Comments THYROID STIMULATING HORMONE (test code = TSH) 2.940 uIU/mL 0.36-3.7 4 N TSH REFERENCE RANGES: EUTHYROID: 0.35 - 4.3 mIU/mL HYPO : > 5.5 mIU/mL HYPER : < 0.35 mIU/mL [id number] 08:48:00* Test Item Value Reference Range Interpretation Comments FERRITIN (test code = GRABIEL) 12 ng/mL 8-388 N COMPREHENSIVE METABOLIC [id number] 08:19:00* Test Item Value Reference Range Interpretation [...] code = FESAT) % 13-45 THYROID STIMULATING [id number] 08:19:00* Test Item Value Reference Range Interpretation Comments THYROID STIMULATING HORMONE (test code = TSH) uIU/mL 0.36-3.7 4 [id number] 08:19:00* Test Item Value Reference Range Interpretation Comments FERRITIN (test code = GRABIEL) ng/mL 8-388 CBC W/AUTO [id number] 08:11:00* Test Item Value Reference Range Interpretation [...] = MDIFF) NO, ONLY SCAN NEEDED DIFFERENTIAL [id number] 08:11:00* Test Item Value Reference Range Interpretation Comments STAIN ACCEPTABILITY (test code = STN ACCEPTABLE) CABOT RINGS (test code = CAB) MORPHOLOGY COMMENT (test code = MOC) PLATELET ESTIMATE (test code = PLTEST) PLATELET MORPHOLOGY (test code = PLTMORPH) CBC W/AUTO [id number] 08:11:00* Test Item Value Reference Range Interpretation [...] = MDIFF) NO, ONLY SCAN NEEDED DIFFERENTIAL [id number] 08:11:00* Test Item Value Reference Range Interpretation Comments STAIN ACCEPTABILITY (test code = STN ACCEPTABLE) CABOT RINGS (test code = CAB) MORPHOLOGY COMMENT (test code = MOC) PLATELET ESTIMATE (test code = PLTEST) PLATELET MORPHOLOGY (test code = PLTMORPH) CBC W/AUTO [id number] 08:11:00* Test Item Value Reference Range Interpretation [...] = MDIFF) NO, ONLY SCAN NEEDED DIFFERENTIAL [id number] 08:11:00* Test Item Value Reference Range Interpretation Comments STAIN ACCEPTABILITY (test code = STN ACCEPTABLE) MORPHOLOGY COMMENT (test code = MOC) PLATELET ESTIMATE (test code = PLTEST) PLATELET MORPHOLOGY (test code = PLTMORPH) CBC W/AUTO [id number] 08:10:00* Test Item Value Reference Range Interpretation [...] = MDIFF) NO, ONLY SCAN NEEDED DIFFERENTIAL [id number] 08:10:00* Test Item Value Reference Range Interpretation Comments STAIN ACCEPTABILITY (test code = STN ACCEPTABLE) CABOT RINGS (test code = CAB) MORPHOLOGY COMMENT (test code = MOC) PLATELET ESTIMATE (test code = PLTEST) PLATELET MORPHOLOGY (test code = PLTMORPH) [id number] 08:09:00* Test Item Value Reference Range Interpretation Comments AMMONIA (test code = AMM) 89 umol/L 11-32 H [id number] 08:09:00* Test Item Value Reference Range Interpretation Comments GLYCOSYLATED HEMOGLOBIN (HA1C) (test code = GLYHGB) 5.0 % HbA1 4. 8-6.0 N ESTIMATED AVERAGE GLUCOSE (test code = EAG) 97 MG/DL [id number] 05:52:00* Test Item Value Reference Range Interpretation Comments GLUBED (test code = GLUBED) 100 mg/dL 74-106 N Performed by certified head sugar reprocess operator at [facility] [id number] 20:26:00* Test Item Value Reference Range Interpretation Comments GLUBED (test code = GLUBED) 111 mg/dL 74-106 H Performed by certified head sugar reprocess operator at [facility] PROTHROMBIN [id number] 15:38:00* Test Item Value Reference Range Interpretation [...] (2.5-3.5) IS PATIENT ON ANTICOAGULANTS? NTHROMBOPLASTIN TIME [id number] 15:38:00* Test Item Value Reference Range Interpretation Comments THROMBOPLASTIN TIME PARTIAL (test code = PTT) 36.6 seconds 25.0-36. 5 H IS PATIENT ON ANTICOAGULANTS? [id number] 14:10:00* Test Item Value Reference Range Interpretation Comments PHOSPHORUS (test code = PHOS) 3.3 mg/dL 2.5-4.9 N [id number] 14:10:00* Test Item Value Reference Range Interpretation Comments AMYLASE (test code = JUAN) 69 Unit/L 25-115 N [id number] 14:10:00* Test Item Value Reference Range Interpretation Comments LIPASE (test code = LIP) 116 U/L 73.0-393.0 N [id number] 14:10:00* Test Item Value Reference Range Interpretation Comments MAGNESIUM (test code = MAG) 2.3 mg/dL 1.8-2.4 N VITAMIN [id number] 14:10:00* Test Item Value Reference Range Interpretation Comments VITAMIN B12 (test code = VITB12) 776 pg/mL 193-986 N FOLIC [id number] 14:10:00* Test Item Value Reference Range Interpretation Comments FOLIC ACID (test code = FOL) 33.2 ng/mL 3.10-17.50 H [id number] 14:10:00* Test Item Value Reference Range Interpretation [...] TO THE PATIENT. - CT HEAD/BRAIN W/O [id number] 07:29:00 Name: JOCELIN CORREA [facility] : 1970 Age/S: 48 / M [address] [facility] Unit #: [id number] Loc: [place] [address] Phys: CharlyLolis DO Acct: [id number] Dis Date: Status: REG ER PHONE #: [phone] Exam Date: 12/06/2018 0635 FAX #: [phone] Reason: Altered Mental Status EXAMS: CPT CODE: [id number] CT HEAD/BRAIN W/O CONT 96448 HISTORY: Altered mental status TECHNIQUE: Noncontrast 2.5 [...] Technologist:JULIANE HINKLE CTDI: DLP: Trnscb Date/Time: 12/06/2018 (07) ThanhLDP1 Orig Print D/T: S: 12/06/2018 (2047) PAGE 1 Signed Report CBC W/AUTO [id number] 07:26:00* Test Item Value Reference Range Interpretation [...] = MDIFF) NO, ONLY SCAN NEEDED DIFFERENTIAL [id number] 07:26:00* Test Item Value Reference Range Interpretation Comments STAIN ACCEPTABILITY (test code = STN ACCEPTABLE) STAIN ACCEPTABLE HYPOCHROMIA (test code = HYPO) 1+ ANISOCYTOSIS (test code = ANISO) 1+ MACROCYTOSIS (test code = MACR) 1+ PLATELET ESTIMATE (test code = PLTEST) DECREASED PLATELET MORPHOLOGY (test code = PLTMORPH) SIZE VARIABLE URINALYSIS [id number] 07:12:00* Test Item Value Reference Range Interpretation [...] Urine Source? Clean CatchDRUGS OF ABUSE SCREEN [id number] 07:12:00* Test Item Value Reference Range Interpretation [...] NEGATIVE <300 ng/mL Urine Source? Clean CatchURINALYSIS [id number] 07:08:00* Test Item Value Reference Range Interpretation [...] Urine Source? Clean CatchDRUGS OF ABUSE SCREEN [id number] 07:08:00* Test Item Value Reference Range Interpretation [...] [place]) <300 ng/mL Urine Source? Clean CatchURINALYSIS [id number] 07:01:00* Test Item Value Reference Range Interpretation [...] Urine Source? Clean CatchDRUGS OF ABUSE SCREEN [id number] 07:01:00* Test Item Value Reference Range Interpretation [...] <300 ng/mL Urine Source? Clean CatchBASIC METABOLIC [id number] 06:46:00* Test Item Value Reference Range Interpretation [...] CA) 8.5 mg/dL 8.5-10.1 N HEPATIC FUNCTION [id number] 06:46:00* Test Item Value Reference Range Interpretation [...] reference range due to change in reagent. [id number] 06:46:00* Test Item Value Reference Range Interpretation Comments TROPONIN-I (test code = TROPI) <0.015 ng/mL 0-0.045 N [id number] 06:46:00* Test Item Value Reference Range Interpretation Comments ACETAMINOPHEN (test code = ACET) < 10 mcg/mL 10-30 L A RANGE OF 10-30 mcg/mL IS A THERAPEUTIC RANGE. TOXIC CONCENTRATIONS: >150 mcg/mL AT 4 HOURS AFTER INGESTION >= 50 mcg/mL AT 12 HOURS AFTER INGESTION [id number] 06:46:00* Test Item Value Reference Range Interpretation Comments SALICYLATE (test code = KAILEY) < 1.7 mg/dL 2.8-20.0 L [id number] 06:46:00* Test Item Value Reference Range Interpretation [...] AT ANADDITIONAL CHARGE TO THE PATIENT. PROTHROMBIN [id number] 06:44:00* Test Item Value Reference Range Interpretation [...] (2.5-3.5) IS PATIENT ON ANTICOAGULANTS? NTHROMBOPLASTIN TIME [id number] 06:44:00* Test Item Value Reference Range Interpretation Comments THROMBOPLASTIN TIME PARTIAL (test code = PTT) 34.6 seconds 25.0-36. 5 N IS PATIENT ON ANTICOAGULANTS? [id number] 06:37:00* Test Item Value Reference Range Interpretation Comments AMMONIA (test code = AMM) 152 umol/L 11-32 H BASIC METABOLIC [id number] 06:31:00* Test Item Value Reference Range Interpretation [...] code = CA) mg/dL 8.5-10.1 HEPATIC FUNCTION [id number] 06:31:00* Test Item Value Reference Range Interpretation [...] TOTAL (test code = ALKP) IUnit/L 45-117 [id number]-[id number] 06:31:00* Test Item Value Reference Range Interpretation Comments TROPONIN-I (test code = TROPI) ng/mL 0-0.045 [id number] 06:31:00* Test Item Value Reference Range Interpretation Comments ACETAMINOPHEN (test code = ACET) mcg/mL 10-30 [id number] 06:31:00* Test Item Value Reference Range Interpretation Comments SALICYLATE (test code = KAILEY) mg/dL 2.8-20.0 [id number] 06:31:00* Test Item Value Reference Range Interpretation Comments ALCOHOL (test code = ALC) mg/dL 0-3 CBC W/AUTO [id number] 06:21:00* Test Item Value Reference Range Interpretation [...] = MDIFF) NO, ONLY SCAN NEEDED DIFFERENTIAL [id number] 06:21:00* Test Item Value Reference Range Interpretation Comments STAIN ACCEPTABILITY (test code = STN ACCEPTABLE) CABOT RINGS (test code = CAB) MORPHOLOGY COMMENT (test code = MOC) PLATELET ESTIMATE (test code = PLTEST) PLATELET MORPHOLOGY (test code = PLTMORPH) CBC W/AUTO [id number] 06:21:00* Test Item Value Reference Range Interpretation [...] = MDIFF) NO, ONLY SCAN NEEDED DIFFERENTIAL [id number] 06:21:00* Test Item Value Reference Range Interpretation Comments STAIN ACCEPTABILITY (test code = STN ACCEPTABLE) MORPHOLOGY COMMENT (test code = MOC) PLATELET ESTIMATE (test code = PLTEST) PLATELET MORPHOLOGY (test code = PLTMORPH) CBC W/AUTO [id number] 06:21:00* Test Item Value Reference Range Interpretation [...] = MDIFF) NO, ONLY SCAN NEEDED DIFFERENTIAL [id number] 06:21:00* Test Item Value Reference Range Interpretation Comments STAIN ACCEPTABILITY (test code = STN ACCEPTABLE) MORPHOLOGY COMMENT (test code = MOC) PLATELET ESTIMATE (test code = PLTEST) PLATELET MORPHOLOGY (test code = PLTMORPH) CBC W/AUTO [id number] 06:20:00* Test Item Value Reference Range Interpretation [...] = MDIFF) NO, ONLY SCAN NEEDED DIFFERENTIAL [id number] 06:20:00* Test Item Value Reference Range Interpretation Comments STAIN ACCEPTABILITY (test code = STN ACCEPTABLE) CABOT RINGS (test code = CAB) MORPHOLOGY COMMENT (test code = MOC) PLATELET ESTIMATE (test code = PLTEST) PLATELET MORPHOLOGY (test code = PLTMORPH) - XR CHEST 1 [id number] 06:08:00 FAX: Lolis Parks DO [place]: St: REG Name: JOCELIN CARROLL [facility] : [birth year] Age/S: 48/M [address] [facility] Unit #: [id number] Loc: [place] [address] Phys: Lolis Parks DO Acct: [id number] Dis Date: Status: REG ER PHONE #: [phone] Exam Date: 12/06/2018 0557 FAX #: [phone] Reason: Altered Mental Status EXAMS: CPT CODE: [id number] XR CHEST 1 V 56663 AFTER HOURS SERVICE ON: 12/06/2018 6:07 AM [...] (610) PAG E 1 Signed Report CARDIAC [id number] 02:39:0028[facility] HermannCARDIAC IWJGMEI7471-25-21 02:39:00< 0.02[facility] HermannCHEM [id number] 02:39:30704Ahclncqh HermannCHEM PANEL 2018-08-25 02:39:37885Xgjshfvp HermannCHEM PYNVH4795-99-23 02:39:002.9[facility] HermannCHEM RZEXP8168-31-31 02:39:59363Wcyaecne HermannCHEM [id number] 02:39:0028Mem[facility] HermannCHEM TQDFU7039-50-24 02:39:000.79[facility] HermannCHEM HFVRN1403-54-96 02:39:00* Test Item Value Reference Range Interpretation Comments B/C Ratio (test code = B/C Ratio) 16 1 6-25 [facility]annCHEM [id number] 02:39:008.0[facility] HermannCHEM PANEL 2018-08-25 02:39:0089Mem[facility] HermannCHEM CRHJV4828-55-34 02:39:000.6[facility] HermannCHEM UWQOO5175-90-03 02:39:006.1[facility] HermannCHEM [id number] 02:39:00* Test Item Value Reference Range Interpretation Comments A/G Ratio (test code = A/G Ratio) 0.3 1 0.7-1.6 [facility] HermannCHEM [id number] 02:39:0026Mem[facility] HermannCHEM PANEL 2018-08-25 02:39:0077Mem[facility] HermannCHEM BHMRF6816-21-19 02:39:001.9[facility] HermannCHEM [id number] 02:39:008.9[facility] HermannCHEM LLPLO3560-09-94 02:39:007.9[facility] HermannCHEM PJOTU9222-07-90 02:39:41843Kpievimj HermannCHEM ECCXJ7549-57-75 02:39:0013[facility] HermannCHEM [id number] 02:39:47672 [facility] KpoatosIAXHLKDWIK0673-31-54 02:39:000.2[facility] HermannHEMATOLOGY 2018-08-25 02:39:000.6[facility] VhlqubkVSMSALDBTK3716-18-03 02:39:001.2[facility] PgyqajfFZLQTVOJVE4864-83-22 02:39:000.3[facility] EyfsfzgZZSNGMTAKL7461-47-93 02:39:001.3[facility] UicugzoRIIPMBXSWR4652-06-37 02:39:001+ *ABN*(08/24/18 9:39 PM)[facility] IewodkpECYIRZJBRZ0055-92-63 02:39:0025.3[facility] HermannHEMATOLOGY 2018-08-25 02:39:0053.3[facility] ZhwgrfbJJXYEHVSNU8104-29-68 02:39:008.8[facility] CfjhowjHXJCMLLAXY9726-60-85 02:39:0011.3[facility] XbckcltPRGPGAVAVK4959-75-70 02:39:00* Test Item Value Reference Range Interpretation Comments PT (test code = PT) 14.7 s 12.0-14.7 [facility] GomqshgMTKKDDXBPX9882-94-33 02:39:00* Test Item Value Reference Range Interpretation Comments PTT (test code = PTT) 34.7 s 22.9-35.8 [facility] LjrooypRJQUARQLEK9498-49-55 02:39:00* Test Item Value Reference Range Interpretation Comments INR (test code = INR) 1.17 1 0.85-1.17 [facility] EbivxccMYDJOPXDTS7727-30-85 02:39:008.4[facility] HermannHEMATOLOGY 2018-08-25 02:39:0076[facility] RqwaxvxPHWRCOCDJT2889-01-27 02:39:0019.3[facility] HwgcefvNAFFZBBFCZ7654-50-45 02:39:0025.7[facility] EesvchqXKEBLBBWZA1331-14-30 02:39:0078.5[facility] JnycsbbMCUKIYHQAN6323-84-58 02:39:0031.7[facility] Levon OZJMEWQYPP9447-02-24 02:39:00* Test Item Value Reference Range Interpretation Comments MCH (test code = MCH) 24.8 pg 27.0-31.0 Memorial QxscjijKIFYUUJUMZ4640-70-75 02:39:003.27[facility] HermannHEMATOLOGY 2018-08-25 02:39:008.1[facility] SingkdyNFSVVOUCKN6160-48-18 02:39:002.3[facility] HermannURINE AND BTAXV0301-22-35 09:25:00Negative (08/04/18 4:25 AM)[facility]annBLOOD BANK FWVOBSV5077-78-61 06:09:00Negative (08/04/18 1:09 AM)[facility] HermannCARDIAC GJDUUEE9356-77-17 06:09:00<0.02[facility] HermannCHEM PANEL 2018-08-04 06:09:01878Ghhjvuge HermannCHEM ZBQYM7306-14-49 06:09:000.2[facility]annCHEM DWJCX8407-10-72 06:09:00* Test Item Value Reference Range Interpretation Comments A/G Ratio (test code = A/G Ratio) 0.3 1 0.7-1.6 [facility]CHE[facility] EYGLJ7504-25-03 06:09:005.8[facility]annCHEM PANEL 2018-08-04 06:09:000.3[facility]annCHEM QYVLI3466-01-27 06:09:000.5[facility]annCHEM ELTCZ7539-35-83 06:09:0077[facility]annCHE[facility] WRXVQ9950-47-11 06:09:0059[facility]annCHE[facility] ACBZD2425-01-70 06:09:0023[facility]annCHE[facility] RSZGD2773-20-15 06:09:001.9[facility]annCHE[facility] IUCRF2819-56-73 06:09:007.7 [facility]CHE[facility] EVCTF9396-28-00 06:09:001.6[facility]annCHEM PANEL 2018-08-04 06:09:51065Kapqttzp HermannCHEM DKDBT1858-27-80 06:09:97704Tydibulr HermannCHEM XLNOL4398-14-35 06:09:007.8[facility]annCHEM KXXHM5956-48-97 06:09:0024[facility]annCHE[facility] IQFXY3148-87-65 06:09:43110Fraqbgjp HermannCHEM ROMCN9486-08-04 06:09:003.3[facility]annCHEM VKHRN9429-07-12 06:09:0013 [facility]CHE[facility] MZREQ7763-74-36 06:09:0099[facility]annCHEM PANEL 2018-08-04 06:09:000.89[facility]annCHEM QTFBY9584-21-61 06:09:0013.3[facility]annDRUG DSCISI9966-45-44 06:09:00Negative *NA*(08/04/18 1:09 AM)[facility]DR[facility] EXYXZW7895-38-57 06:09:00Negative *NA*(08/04/18 1:09 AM)[facility]DR[facility] VXHYAS3734-28-44 06:09:00Negative *NA*(08/04/18 1:09 AM)[facility]DR[facility] [id number] 06:09:00Positive *ABN*(08/04/18 1:09 AM)[facility]annDR[facility] YHIHKE9444-24-05 06:09:00Negative *NA*(08/04/18 1:09 AM)[facility]DR[facility] MGXFND1527-64-02 06:09:00Negative *NA*(08/04/18 1:09 AM)[facility]DR[facility] ZNALML3107-10-19 06:09:00Negative *NA*(08/04/18 1:09 AM)[facility]annDR[facility] BMFIPR3902-41-12 06:09:00See Note (08/04/18 1:09 AM)[facility] [place] RUHHHMUXSX5013-75-32 06:09:009.3[facility] IezjeuqTOXMSBLMDN5604-30-36 06:09:001.1 [facility] XcichofVGFVITKIGU4483-14-70 06:09:0010.6[facility]annHEMATOLOGY 2018-08-04 06:09:001.6[facility] LyynxgdZSKSBZVLOQ6468-89-24 06:09:001.4[facility] LtoiiekTDDAMSOQDU0109-26-69 06:09:000.4[facility] ZxukuyyGFYCFRSDDW3836-12-74 06:09:000.4[facility] BvsohitKLJWGKOEWH3356-91-58 06:09:0042.9[facility] [place] WDBUHXLXBE4401-01-34 06:09:0036.1[facility] CjzcitsOSOGFICIAN1136-61-71 06:09:00* Test Item Value Reference Range Interpretation Comments PT (test code = PT) 14.2 s 12.0-14.7 [facility] BurmoqnQSYSYPCRXJ6877-71-25 06:09:00* Test Item Value Reference Range Interpretation Comments INR (test code = INR) 1.12 1 0.85-1.17 [facility] BmojzcpNOFUIGINXD2051-80-50 06:09:00* Test Item Value Reference Range Interpretation Comments PTT (test code = PTT) 36.4 s 22.9-35.8 [facility] KtzlyxaLUTOSOIPWR4178-81-41 06:09:008.3[facility] 2018-08-04 06:09:0078[facility] MktsaubBFNHRGDGHF6828-93-19 06:09:0079.3[facility] UjrubtrCPQHYCSWCV1512-41-20 06:09:00* Test Item Value Reference Range Interpretation Comments MCH (test code = MCH) 24.9 pg 27.0-31.0 [facility] YedjrtuJYLOYUPONC4373-12-18 06:09:0031.4[facility] HermannHEMATOLOGY 2018-08-04 06:09:0018.5[facility] BdkehfoFGDJRMFFZF5175-35-57 06:09:008.3[facility] KktjoltUPGQDKEFEY3172-01-43 06:09:003.8[facility] OpipldfVJNODZJZGZ8219-36-62 06:09:003.34[facility] GpcielwQGVFNRCQMP2520-43-69 06:09:0026.5[facility] [place] SJADYIFNJF3834-10-61 06:09:67338Bfctkyzh XzttmoePJNCJFGOML2783-07-70 06:09:00 0.362[facility] KNIIT2180-78-48 06:09:00Large *ABN*(08/04/18 1:09 AM)[facility] QAVJS0405-80-57 06:09:00Negative (08/04/18 1:09 AM) [facility] RULQH0202-81-65 06:09:005[facility] CRSAQ2701-27-23 06:09:0012[facility] JXPEU2390-09-21 06:09:27201 [facility] ORUPG4984-87-91 06:09:00Negative (08/04/18 1:09 AM) [facility] USEEJ6870-54-70 06:09:00Negative *NA*(08/04/18 1:09 AM) [facility] HIMTF2049-29-25 06:09:00* Test Item Value Reference Range Interpretation Comments UA Spec Grav (test code = UA Spec Grav) 1.013 1 [facility] SDZAG9642-82-59 06:09:00Clear (08/04/18 1:09 AM) [facility] OQDWU8536-20-95 06:09:00Yellow *NA*(08/04/18 1:09 AM) [facility] XEMUP5149-94-09 06:09:00* Test Item Value Reference Range Interpretation Comments UA pH (test code = UA pH) 6.0 1 5.0-8.0 [facility]annCHEM LSQST5124-54-14 08:02:001.7[facility] HermannCHEM PANEL 2018-06-05 08:02:33296Yupxmhuc HermannCHEM FKSUO9102-46-88 08:02:003.5[facility]annCHEM VCSXY7103-54-69 08:02:0026[facility]annCHEM NQOTL6156-17-87 08:02:55026Ulcunire HermannCHEM JHQZT0806-98-93 08:02:007.8[facility]annCHEM RZHNJ4568-04-18 08:02:000.89[facility]annCHEM CRQJH5099-56-10 08:02:47750 [facility]annCHE[facility] NXBPV4339-48-16 08:02:0091[facility]annCHEM PANEL 2018-06-05 08:02:0011[facility]annCHEM GCIXA8634-22-19 08:02:008.5[facility] WffltquKKTNBMMWYO6602-24-84 08:02:0068[facility] XonwusdSNLLYXKMIR6207-05-69 08:02:009.5[facility] CcokelzBTMCKWERGO5158-92-41 08:02:0084.3[facility] [place] BYFXHQPINJ8620-52-71 08:02:0029.3[facility] OesnbyfAGIQORGVNV3622-35-21 08:02:00 32.1[facility] FxpacglYKWJPSIYPT9400-82-08 08:02:0020.5[facility]annHEMATOLOGY 2018-06-05 08:02:00* Test Item Value Reference Range Interpretation Comments MCH (test code = MCH) 27.1 pg 27.0-31.0 [facility] IefbkleUUHPRCHEET5374-15-84 08:02:009.4[facility]annHEMATOLOGY 2018-06-05 08:02:003.0[facility] VyfrnfiJIDGSAVMDG0311-17-17 08:02:003.48[facility] RslquefHIKZLHVYTL8995-33-85 08:02:0056.8[facility] MxzqmlsQWAJZGPLBY3859-93-00 08:02:0018.1[facility] GrwrbvjSYRGWZMDVL8315-10-67 08:02:0017.9[facility] UWDJJTBWCH3372-36-45 08:02:006.5[facility] JtgiumcSDZQMMAFOG4860-11-72 08:02:000.7 [facility] NvkxgwtROQHJEZCHK1838-80-34 08:02:001.7[facility]annHEMATOLOGY 2018-06-05 08:02:000.2[facility] SedyvroPWYPGLYLTO0835-97-29 08:02:000.5[facility] WbnahpbKPZCVYCCTZ0537-65-74 08:02:000.5[facility] HermannPARATHYROID PROFILE 2018-06-04 22:55:001.06[facility] HermannPARATHYROID HSIJIUT3291-07-69 22:55:00 1.07[facility] HermannCHEM KBLEO2056-82-09 18:00:0069.0[facility] HermannCHEM PANEL 2018-06-04 18:00:99667Lhojlmhb HermannCHEM OPVON0718-97-45 18:00:008.3[facility] HermannCHEM CIMQG5028-78-64 18:00:0028[facility]annCHEM MPBEP8008-50-81 18:00:006.9[facility] HermannCHEM XQJEV1040-22-41 18:00:53733Wayfzxau HermannCHEM VRSYU4858-53-76 18:00:000.83[facility]annCHEM SSSMT5586-00-54 18:00:003.3 [facility]annCHEM OPGTY7388-31-71 18:00:65717Zeejfewn HermannCHEM PANEL 2018-06-04 18:00:0011[facility] HermannCHEM VDCQN2619-48-64 18:00:66591Pryuvtci NkmruaaLDGZHUGZRH8781-16-63 18:00:008.8[facility] XhfwtrnWOMUKRRLQM1893-52-32 18:00:0033.5[facility] VxqgbxkWQYQMRKNRR8456-46-26 18:00:0026.4[facility] UONVSNDHFE2096-96-67 18:00:0081.8[facility] PdwjmiiEOCUUKIEXK8335-94-46 18:00:00 19.8[facility] AygtrbfBBKIBYHAHN0391-84-32 18:00:00* Test Item Value Reference Range Interpretation Comments MCH (test code = MCH) 27.4 pg 27.0-31.0 [facility] SrjzsxdQUTHLMQFWV5581-53-20 18:00:0051[facility]annHEMATOLOGY 2018-06-04 18:00:002.3[facility] FlrjntrHOJECPXJRG9918-58-27 18:00:003.23[facility] CpsfvqaUWKWNUVVUB6931-28-28 18:00:009.1[facility] MdocybfFNWVUAYGTY3876-56-71 18:00:0015.2[facility] PvhibrrMMHPHUOMUE6912-65-19 18:00:001.3[facility] KOQGXGZAGU8166-32-35 18:00:000.5[facility] VohxwywELKIBECZIB0804-71-12 18:00:006.1 [facility] CkfnpjoTBURQKNVSW3220-24-30 18:00:000.9[facility] HermannHEMATOLOGY 2018-06-04 18:00:000.1[facility] TaslxhmRUIFHOTVRP9072-64-42 18:00:000.3[facility] OnegarcXGEQEJDDND8146-10-71 18:00:0019.8[facility] LbrmncjFVIWHDGTYT8623-47-70 18:00:0058.0[facility] HermannBODY RTRBDR5361-68-21 17:05:00Ascites *NA*(06/04/18 12:05 PM)[facility] HermannBODY WXLJVK3588-64-01 17:05:000.7[facility] HermannBODY ACCRBS5916-61-97 17:05:00Moderate Cloudy *ABN*(06/04/18 12:05 PM)[facility] BODY CKICAK0763-81-05 17:05:7940879Rtvbbdip HermannBODY RZXOAA8216-04-50 17:05:00Red *ABN*(06/04/18 12:05 PM)[facility] HermannBODY GYCITE9360-87-84 17:05:43097Msgixbwp HermannBODY VKXHFT6671-67-87 17:05:00Ascites (06/04/18 12:05 PM)[facility]annBODY EVKZAN4001-34-21 17:05:0019[facility] HermannBODY FLUIDS 2018-06-04 17:05:000[facility] HermannBODY WFNDHK3852-08-79 17:05:0081[facility] HermannBODY FDXCCI2454-68-71 17:05:15012Epgboihc HermannBODY DOGQKP8286-75-39 17:05:00Ascites *NA*(06/04/18 12:05 PM)[facility] HermannBODY UXDUGD0759-42-52 17:05:00Ascites *NA*(06/04/18 12:05 PM)[facility] HermannBODY SCWZTI6249-98-22 17:05:002.9[facility] HermannCHEM NDEWK4813-15-27 19:58:79897.0[facility] [place] CHEM IDURU4859-37-94 19:58:0073[facility] HermannCHEM LFMKA9156-99-10 19:58:0029 [facility]annCHEM LNIQY2800-08-67 19:58:63488Jkkuaueg HermannCHEM PANEL 2018-06-03 19:58:007.1[facility] HermannCHEM VPQSP1563-75-85 19:58:003.6[facility] HermannCHEM LESAO5274-88-33 19:58:69059Dcwhnywo HermannCHEM ONRVP1229-12-95 19:58:12770Lwvxrrxa HermannCHEM SJMFQ5194-42-09 19:58:0010[facility] HermannCHEM UGTNG6574-27-29 19:58:001.18[facility] HermannCHEM VWHBB0058-92-10 19:58:008.6 [facility] HbwlldiAAEHPWSYGD7985-07-93 19:58:009.4[facility] HermannHEMATOLOGY 2018-06-03 19:58:0028.1[facility] AnczrzqFRRRQPPAKX1130-71-05 19:58:0082.2[facility] OffdmjhNXNZMDKWPQ1019-87-76 19:58:00* Test Item Value Reference Range Interpretation Comments MCH (test code = MCH) 27.5 pg 27.0-31.0 [facility] YwpuyelPDYOXZOUAU9727-83-10 19:58:0033.4[facility] HermannHEMATOLOGY 2018-06-03 19:58:0019.9[facility] QmkjzlyIQDUMBLUBE3780-86-69 19:58:003.2[facility] QnmqiwqEROFQWTEOK3715-12-55 19:58:003.42[facility] ZlttbgyXDRNFFMECY3212-25-12 19:58:0059[facility] UyjlvxvZXOUOPXAHJ2698-70-05 19:58:008.7[facility] [place] JWHLOKWWTH2885-72-85 19:58:002.0[facility] VxdumepDSWQOZKDXD8671-94-32 19:58:000.5 [facility] SslyaakWKMQFXVFPW7444-13-80 19:58:000.4[facility] HermannHEMATOLOGY 2018-06-03 19:58:000.2[facility] NegwpnzGALJOENYBJ1805-33-74 19:58:000.9[facility] OjscwwwJRRKJHSIUG1234-28-80 19:58:0013.5[facility] AfndezyCOHZNKYJOW9475-43-14 19:58:006.3[facility] ZhvjhpfCVYBYDLIEN3655-85-68 19:58:0064.6[facility] UHMQHOMSDE2153-59-93 19:58:0014.7[facility] FfgjygmVLSOSDYNEL1249-00-91 19:58:001+ (06/03/18 2:58 PM)[facility] LrpbfheWUSGKYGHFS7649-63-01 19:58:00Rare *ABN*(06/03/18 2:58 PM)[facility] WxewyhkQSCPCDMUDC9129-75-78 19:58:001+ *ABN*(06/03/18 2:58 PM)[facility] CwjrcejVEEDHJDIVE6123-18-63 19:58:00Normal (06/03/18 2:58 PM)[facility] KhgjffqEEVJQTTYHO3434-44-90 19:58:00See Note (06/03/18 2:58 PM)[facility] HermannPARATHYROID GRWXHXQ4689-42-68 19:58:001.00[facility] HermannPARATHYROID FWJEVYF4344-61-47 19:58:001.00[facility] HermannANEMIA STUDY 2018-06-03 09:54:0057[facility] HermannANEMIA NAEMK8242-62-15 09:54:0044[facility] HermannANEMIA BLXIN0977-03-58 09:54:0014Mem[facility] HermannANEMIA WTOOM4181-54-53 09:54:61711Rjfngsdd HermannANEMIA AITHK5107-68-87 09:54:13473Lsapdcgc [place] SPECIAL HWJAVGSGZ6318-01-96 09:54:000.09[facility] HermannTUMOR HESDANF7243-32-14 09:54:003.3[facility] HermannTUMOR YUFQKYV9245-13-29 09:54:005.0[facility] [place] CHEM XGNTB1146-56-10 16:54:17104.0[facility] HermannPARATHYROID YRWGZMU8569-89-01 16:54:000.95[facility] HermannPARATHYROID MJAKHPA4796-07-28 16:54:000.94[facility] HermannCHEM OTCKO2918-47-54 10:44:001.2[facility] HermannCHEM DLFXW3181-87-51 10:44:002.8[facility] HermannCHEM IEWYY6201-01-87 10:44:00* Test Item Value Reference Range Interpretation Comments B/C Ratio (test code = B/C Ratio) 15 1 6-25 [facility]annCHEM VROHS8054-10-33 10:44:0064[facility] HermannCHEM PANEL 2018-06-02 10:44:0045[facility] HermannCHEM FUAZM5640-84-67 10:44:001.4[facility] HermannCHEM WZXHR3200-89-03 10:44:0015[facility] HermannCHEM XFYGS0462-81-06 10:44:00* Test Item Value Reference Range Interpretation Comments A/G Ratio (test code = A/G Ratio) 0.3 1 0.7-1.6 [facility]annCHEM QDBGR3233-75-49 10:44:001.7[facility] HermannCHEM PANEL 2018-06-02 10:44:007.3[facility] HermannCHEM MKGRL2302-81-25 10:44:005.6[facility] FefusvpSHSYECZBXU9747-68-68 10:44:00* Test Item Value Reference Range Interpretation Comments INR (test code = INR) 1.34 1 0.85-1.17 [facility] RtwtivyYMINSRUFYZ4011-47-97 10:44:00* Test Item Value Reference Range Interpretation Comments PT (test code = PT) 16.3 s 12.0-14.7 [facility] HhtnqfeBPLAVAMRSF0183-48-48 10:44:00* Test Item Value Reference Range Interpretation Comments PTT (test code = PTT) 36.5 s 22.9-35.8 [facility] HermannCHEM YSWJG9337-01-15 02:13:001.1[facility] HermannBLOOD BANK BQYDQEU7923-91-31 01:02:00Negative (06/01/18 8:02 PM)[facility] VETHX4202-45-50 21:22:00Positive *ABN*(06/01/18 4:22 PM)[facility] HermannCHEM SFTJS0788-45-05 16:01:0049[facility] HermannCHEM FYUHB6302-33-86 16:01:0015 [facility]annCHEM HSZKX7895-99-66 16:01:0074[facility] HermannCHEM PANEL 2018-06-01 16:01:001.2[facility] HermannCHEM CRDIS3085-38-88 16:01:001.9[facility] HermannCHEM TGWAZ2130-36-83 16:01:008.2[facility] HermannCHEM SEACA1773-81-73 16:01:006.3[facility] HermannCHEM DIBUY1946-31-60 16:01:00* Test Item Value Reference Range Interpretation Comments A/G Ratio (test code = A/G Ratio) 0.3 1 0.7-1.6 [facility] HermannCHEM PWZUV3602-70-82 16:01:00* Test Item Value Reference Range Interpretation Comments B/C Ratio (test code = B/C Ratio) 13 1 6-25 [facility] HermannCHEM JQHME9211-17-35 16:01:03170Okzgcees HermannHEMATOLOGY 2018-06-01 16:01:00* Test Item Value Reference Range Interpretation Comments INR (test code = INR) 1.18 1 0.85-1.17 [facility] OxfkpeyJWOBXJJFVF6271-95-59 16:01:00* Test Item Value Reference Range Interpretation Comments PT (test code = PT) 14.8 s 12.0-14.7 [facility] CenjamjBZPRYOGQNK2966-18-22 16:01:00* Test Item Value Reference Range Interpretation Comments PTT (test code = PTT) 33.9 s 22.9-35.8 [facility]UR[facility] AND NCBEL5179-20-71 16:01:007[facility]annUR[facility] AND QLBJV6759-56-91 16:01:00Negative (06/01/18 11:01 AM)[facility] AND QFWYS6506-93-33 16:01:0097[facility]UR[facility] AND EDJBE2801-65-06 16:01:00 Negative (06/01/18 11:01 AM)[facility] IIVKM1829-00-22 16:01:00 Large *ABN*(06/01/18 11:01 AM)[facility] CINKH2823-93-02 16:01:00 * Test Item Value Reference Range Interpretation Comments UA Spec Grav (test code = UA Spec Grav) 1.020 1 [facility] AND RHCBE5938-31-64 16:01:00Slight *ABN*(06/01/18 11:01 AM) [facility] FSXTS8868-28-50 16:01:00Dark Yellow (06/01/18 11:01 AM) [facility] HNKPV2737-89-61 16:01:00Negative *NA*(06/01/18 11:01 AM)[facility] XKDHJ8817-77-55 16:01:00Small *ABN*(06/01/18 11:01 AM)[facility] AND VQHBR6690-67-86 16:01:00* Test Item Value Reference Range Interpretation Comments UA pH (test code = UA pH) 6.0 1 5.0-8.0 [facility] AND KWEYO2205-83-04 16:01:00Negative *NA*(06/01/18 11:01 AM)[facility] [place] ABD PELVIS W/VUUB9741-46-16 18:57:00 Name: JOCELIN CORREA [facility] : 1970 Age/S: 48 / M [address] [facility]: [id number] Loc: [place] [address] Phys: Giovanna Syed MD Acct: [id number] Di s Date: Status: REG ER PHONE #: Exam Date: 05/05/20181826 FAX #: Reason: abd pain EXAMS: CPT CODE: [id number] CT ABD PELVIS W/CONT 96783 HISTORY: Abdominal pain. COMPARISON: December 18, 2017. [...] 1 Signed Report (CONTINUED) Name: JOCELIN CORREA [facility] : 1970 [age]/S: 4 8 / M [address] [facility] Unit #: [id number] Loc: [place] [address] Phys: Sanya Syed MD Acct: [id number] Dis Date: Status: REG ER PHONE #: [phone] Exam Date: 05/05/20181826 FAX #: [phone] Reason: abd pain EXAMS: CPT CODE: [id number] CT ABD PELVIS W/CONT 35929 <Continued> varices. No hydroureteronephrosis. Punctate bilateral 1 [...] RT(R),CT CTDI: DLP: Trnscb Date/Time: 05/05/2018 (1856) Matthew.TH4 Orig Print D/T: S: 05/05/2018 (8500) CTDI: DLP: PAGE 2 Signed Report BASIC [...] CA) 8.1 mg/dL 8.5-10.1 L HEPATIC FUNCTION KZWFI8603-10-01 16:39:00* Test Item Value Reference Range Interpretation [...] reference range due to change in reagent. FSJJDZ2880-75-60 16:39:00* Test Item Value Reference Range Interpretation Comments LIPASE (test code = LIP) 72 U/L 73.0-393.0 L UPAYANMH-T0326-35-23 16:39:00* Test Item Value Reference Range Interpretation Comments TROPONIN-I (test code = TROPI) <0.015 ng/mL 0-0.045 N ZDEYLVB3964-74-22 16:39:00* Test Item Value Reference Range Interpretation [...] ANADDITIONAL CHARGE TO THE PATIENT. BASIC METABOLIC AQGKU0373-77-20 16:30:00* Test Item Value Reference Range Interpretation [...] code = CA) mg/dL 8.5-10.1 HEPATIC FUNCTION CKQLP5301-37-46 16:30:00* Test Item Value Reference Range Interpretation [...] TOTAL (test code = ALKP) IUnit/L 45-117 GKWNWT0245-09-67 16:30:00* Test Item Value Reference Range Interpretation Comments LIPASE (test code = LIP) U/L 73.0-393.0 EZHALZMY-Q7263-15-23 16:30:00* Test Item Value Reference Range Interpretation Comments TROPONIN-I (test code = TROPI) ng/mL 0-0.045 JFWAMVM8091-58-25 16:30:00* Test Item Value Reference Range Interpretation Comments ALCOHOL (test code = ALC) mg/dL 0-3 CBC W/O MXNR3630-01-08 16:10:00* Test Item Value Reference Range Interpretation [...] = MPV) 10.0 fL 6.7-11.0 N CARDIAC QMXYAVH2502-86-17 23:31:00<0.02[facility] HermannCARDIAC RGDJSSH5047-68-10 23:31:0030[facility] HermannCHEM WAPKG5349-76-33 23:31:66431Fikkshbq HermannCHEM YYKLB8223-53-44 23:31:009[facility] HermannCHEM XBWLH9382-50-04 23:31:000.78 [facility] HermannCHEM IDMPB4308-63-04 23:31:0064[facility] HermannCHEM PANEL 2018-04-18 23:31:000.4[facility] HermannCHEM IWLAE9494-43-71 23:31:0015[facility] HermannCHEM FJXGN6467-98-93 23:31:003.7[facility] HermannCHEM WHNQH8686-31-10 23:31:13221Vfgavqtv HermannCHEM KLLPA0906-29-36 23:31:83981Tscemykp HermannCHEM BFQFH5309-27-24 23:31:003.7[facility] HermannCHEM LRMFG6182-20-68 23:31:007.5 [facility] HermannCHEM DYFZL0859-90-22 23:31:008.7[facility] HermannCHEM PANEL 2018-04-18 23:31:0027[facility] HermannCHEM VSJZK1269-89-42 23:31:0019[facility] HermannCHEM KFIKU4383-32-50 23:31:0098[facility] HermannCHEM AGBWM7043-85-76 23:31:00* Test Item Value Reference Range Interpretation Comments B/C Ratio (test code = B/C Ratio) 09-04 [facility] HermannCHEM RCFGT9894-29-26 23:31:00* Test Item Value Reference Range Interpretation Comments A/G Ratio (test code = A/G Ratio) 1.0 1 0.7-1.6 [facility] HermannCHEM OMENJ0476-69-83 23:31:009.7[facility] HermannCHEM PANEL 2018-04-18 23:31:003.8[facility] WbeqrdyNBTKXBBVUGFX4598-72-29 23:31:009.7[facility] YiciypfWKRSAWAKHRVT8405-18-45 23:31:00* Test Item Value Reference Range Interpretation Comments B/C Ratio (test code = B/C Ratio) 12 09-04 [facility] CzxgezyCCAYCPDUCDXK0240-14-16 23:31:003.8[facility] HermannELECTROLYTES 2018-04-18 23:31:00* Test Item Value Reference Range Interpretation Comments A/G Ratio (test code = A/G Ratio) 1.0 1 0.7-1.6 [facility] OvtsalkKGAZQNZQVJJD9301-84-00 23:31:0098[facility] HermannELECTROLYTES 2018-04-18 23:31:009[facility] FgleljcWIOQDFTONKXG4218-86-54 23:31:000.78[facility] LftzpkpCKDYYGIOCZNK0050-90-29 23:31:46585Qztxzeln CihpqkbJIGWXNRLXQBK7261-52-27 23:31:003.7[facility] YhmjtsnCHZVEYOLYWZT7843-61-36 23:31:84477Vcnliojs Lev[place] JZYGGXMURLQU2711-93-40 23:31:0027[facility] WssclqxUTHQRUUOSLPL9947-60-12 23:31:00 8.7[facility] JudyvksHNZIBGTHFTHJ7245-96-95 23:31:007.5[facility] GLPZOFABYCTV9504-92-01 23:31:003.7[facility] CeqlvztRAPSBBCMHVAL3740-23-07 23:31:0019[facility] ZwixlymCDVJSCYMTEDS7030-09-73 23:31:0015[facility] IPPJAMRSPDMB9054-86-08 23:31:0064[facility] TkzjkocRYUUGAIJKMVY1025-24-87 23:31:00 0.4[facility] VoyqbbzAGHMJGIYXVIA3261-25-45 23:31:81313Jahjspxs HermannHEMATOLOGY 2018-04-18 23:31:009.3[facility] KngdohtLNNZGCRYOF6750-93-13 23:31:004.63[facility] SznznauPHZAESFFOZ2739-98-46 23:31:0014.2[facility] JojvbexBWWFFBTVVE0037-78-88 23:31:0041.6[facility] NewvkphRMIYWXANQI3796-91-78 23:31:0089.8[facility] [place] MBUOQSOIBS1157-09-30 23:31:00* Test Item Value Reference Range Interpretation Comments MCH (test code = MCH) 30.5 pg 27.0-31.0 [facility] GububztTLGITOUFRC6627-47-38 23:31:0034.0[facility] HermannHEMATOLOGY 2018-04-18 23:31:0014.5[facility] QnpjnufLKPVDPYRTQ8145-14-40 23:31:68458Pbgatjne OkowaagBCKGDDFANK4018-48-96 23:31:009.3[facility] ZfrgehrGQBXZGEHBK2458-04-24 23:31:00* Test Item Value Reference Range Interpretation Comments INR (test code = INR) 1.05 1 0.85-1.17 [facility] PqmoyedLCCOGGSHLI6273-90-48 23:31:00* Test Item Value Reference Range Interpretation Comments PT (test code = PT) 13.5 s 12.0-14.7 [facility] CylgiptTBZRIRVXAR9827-99-17 23:31:00* Test Item Value Reference Range Interpretation Comments PTT (test code = PTT) 29.1 s 22.9-35.8 [facility] TjoflcgHYYCIJELKB2752-50-64 23:31:0069.7[facility] HermannHEMATOLOGY 2018-04-18 23:31:0023.9[facility] OlkpfylKVTJTCQIAS8959-30-13 23:31:004.6[facility] JisvkopCZLJIBEVKR2756-06-45 23:31:001.5[facility] TjfrtqqDCJWZKBUQG4323-69-63 23:31:000.3[facility] MlrpqmuQRHPCWZBQM9867-10-69 23:31:006.5[facility] OJVKUOBLWA2637-22-56 23:31:002.2[facility] FrrrcvvIHDYKPSXNI0428-41-70 23:31:000.4 [facility] MdvvmxaTFAEGCDGRD8543-13-02 23:31:000.1[facility] HermannURINE AND STOOL 2018-04-18 23:31:00Clear (04/18/18 5:31 PM)[facility]annURINE AND STOOL 2018-04-18 23:31:00* Test Item Value Reference Range Interpretation Comments UA Spec Grav (test code = UA Spec Grav) 1.010 1 [facility]annUR[facility] AND YZOIW0881-30-93 23:31:00* Test Item Value Reference Range Interpretation Comments UA pH (test code = UA pH) 8.0 1 5.0-8.0 [facility]UR[facility] AND CTRXD4846-84-87 23:31:00Negative (04/18/18 5:31 PM) [facility] [id number] 23:31:00Negative *NA*(04/18/18 5:31 PM) [facility] [id number] 23:31:00Negative *NA*(04/18/18 5:31 PM) [facility] [id number] 23:31:00Negative *NA*(04/18/18 5:31 PM) [facility] [id number] 23:31:00Negative (04/18/18 5:31 PM) [facility] [id number] 23:31:00Negative (04/18/18 5:31 PM) [facility] [id number] 23:31:00Trace *ABN*(04/18/18 5:31 PM) [facility] [id number] 23:31:006[facility] [id number] 23:31:001[facility] [id number] 23:31:006 [facility] [id number] 21:06:00* Test Item Value Reference Range Interpretation [...] CA) 8.1 mg/dL 8.5-10.1 L HEPATIC FUNCTION [id number] 21:06:00* Test Item Value Reference Range Interpretation [...] reference range due to change in reagent. [id number] 21:06:00* Test Item Value Reference Range Interpretation Comments MAGNESIUM (test code = MAG) 1.5 mg/dL 1.8-2.4 L [id number] 21:06:00* Test Item Value Reference Range Interpretation Comments TROPONIN-I (test code = TROPI) <0.015 ng/mL 0-0.045 N PROTHROMBIN [id number] 20:45:00* Test Item Value Reference Range Interpretation [...] (2.5-3.5) IS PATIENT ON ANTICOAGULANTS? NTHROMBOPLASTIN TIME [id number] 20:45:00* Test Item Value Reference Range Interpretation Comments THROMBOPLASTIN TIME PARTIAL (test code = PTT) 40.7 seconds 25.0-36. 5 H IS PATIENT ON ANTICOAGULANTS? NBASIC METABOLIC [id number] 20:40:00* Test Item Value Reference Range Interpretation [...] code = CA) mg/dL 8.5-10.1 HEPATIC FUNCTION [id number] 20:40:00* Test Item Value Reference Range Interpretation [...] TOTAL (test code = ALKP) IUnit/L 45-117 [id number] 20:40:00* Test Item Value Reference Range Interpretation Comments MAGNESIUM (test code = MAG) mg/dL 1.8-2.4 [id number] 20:40:00* Test Item Value Reference Range Interpretation Comments TROPONIN-I (test code = TROPI) ng/mL 0-0.045 CBC W/O [id number] 20:37:00* Test Item Value Reference Range Interpretation [...] fL 6.7-11.0 N - CT HEAD/BRAIN W/O [id number] 20:09:00 Name: JOCELIN CORREA [facility] : 1970 Age/S: 48 / M [address] Unit #: [id number] [place] [address] Phys: MARYAN ROBERTS MD Acct: [id number] Dis Date: Status: REG ER PHONE #: [phone] Exam Date: 04/18/20182007 FAX #: [phone] Reason: fall, head trauma, blood in ear EXAMS: CPT CODE: [id number] CT HEAD/BRAIN W/O CONT 79320 REASON FOR EXAM: fall, head trauma, blood [...] PAGE 1 Signed Report - US ABDOMEN [id number] 07:09:00 Name: CHELLY CORREA [facility] : 1970 Age/S: 48 / M [address] [facility] Unit #: [id number] [place] [address] Phys: Giovanna Rees MD Acct: [id number] Dis Date: Status: ADM IN PHONE #: [phone] Exam Date: 04/09/201826 FAX #: [phone] Reason: abd pain. evaluate lesion in ascites EXAMS: CPT CODE: [id number] US ABDOMEN COMPLETE 14041 REASON FOR EXAM: abd pain. evaluate lesion [...] GAIL SHIPLEY RDMS Trnscb Date/Time: 04/10/2018 (0709) Hitesh Orig Print D/T: S: 04/10/2018 (0712) Probe: PAGE 1 Signed Report CBC W/AUTO [id number] 06:40:00* Test Item Value Reference Range Interpretation [...] = MDIFF) NO, ONLY SCAN NEEDED DIFFERENTIAL [id number] 06:40:00* Test Item Value Reference Range Interpretation Comments STAIN ACCEPTABILITY (test code = STN ACCEPTABLE) STAIN ACCEPTABLE POLYCHROMASIA (test code = POLC) 2+ ANISOCYTOSIS (test code = ANISO) 2+ MACROCYTOSIS (test code = MACR) 2+ PLATELET ESTIMATE (test code = PLTEST) DECREASED PLATELET MORPHOLOGY (test code = PLTMORPH) NORMAL BASIC METABOLIC [id number] 06:20:00* Test Item Value Reference Range Interpretation [...] code = CA) 7.8 mg/dL 8.5-10.1 L [id number] 06:20:00* Test Item Value Reference Range Interpretation Comments MAGNESIUM (test code = MAG) 1.4 mg/dL 1.8-2.4 L CBC W/AUTO [id number] 06:17:00* Test Item Value Reference Range Interpretation [...] = MDIFF) NO, ONLY SCAN NEEDED DIFFERENTIAL [id number] 06:17:00* Test Item Value Reference Range Interpretation Comments STAIN ACCEPTABILITY (test code = STN ACCEPTABLE) CABOT RINGS (test code = CAB) MORPHOLOGY COMMENT (test code = MOC) PLATELET ESTIMATE (test code = PLTEST) PLATELET MORPHOLOGY (test code = PLTMORPH) CBC W/AUTO [id number] 06:17:00* Test Item Value Reference Range Interpretation [...] = MDIFF) NO, ONLY SCAN NEEDED DIFFERENTIAL [id number] 06:17:00* Test Item Value Reference Range Interpretation Comments STAIN ACCEPTABILITY (test code = STN ACCEPTABLE) CABOT RINGS (test code = CAB) MORPHOLOGY COMMENT (test code = MOC) PLATELET ESTIMATE (test code = PLTEST) PLATELET MORPHOLOGY (test code = PLTMORPH) CBC W/AUTO [id number] 06:17:00* Test Item Value Reference Range Interpretation [...] = MDIFF) NO, ONLY SCAN NEEDED DIFFERENTIAL [id number] 06:17:00* Test Item Value Reference Range Interpretation Comments STAIN ACCEPTABILITY (test code = STN ACCEPTABLE) MORPHOLOGY COMMENT (test code = MOC) PLATELET ESTIMATE (test code = PLTEST) PLATELET MORPHOLOGY (test code = PLTMORPH) CBC W/AUTO [id number] 06:17:00* Test Item Value Reference Range Interpretation [...] = MDIFF) NO, ONLY SCAN NEEDED DIFFERENTIAL [id number] 06:17:00* Test Item Value Reference Range Interpretation Comments STAIN ACCEPTABILITY (test code = STN ACCEPTABLE) CABOT RINGS (test code = CAB) MORPHOLOGY COMMENT (test code = MOC) PLATELET ESTIMATE (test code = PLTEST) PLATELET MORPHOLOGY (test code = PLTMORPH) BASIC METABOLIC [id number] 06:12:00* Test Item Value Reference Range Interpretation [...] CALCIUM (test code = CA) mg/dL 8.5-10.1 GVOLBSCVR5019-50-90 06:12:00* Test Item Value Reference Range Interpretation Comments MAGNESIUM (test code = MAG) mg/dL 1.8-2.4 PROTHROMBIN HMXE5653-09-40 06:12:00* Test Item Value Reference Range Interpretation [...] PATIENT ON ANTICOAGULANTS? N- CT ABD PELVIS W/HPBH9627-23-30 13:44:00 Name: CHELLY CORREA [facility] : 1970 Age/S: 48 / M [address] [facility] Unit #: [id number] [place] [address] Phys: Fransisco Valdez MD Acct: [id number] Di s Date: Status: REG ER PHONE #: [phone] Exam Date: 04/09/2018 6623 FAX #: [phone] Reason: upper abd pain EXAMS: CPT CODE: [id number] CT ABD PELVIS W/CONT 48752 EXAM: CT of the abdomen a nd [...] Mandujano RT(R),(MR),(CT) CTDI: DLP: Trnscb Date/Time: 04/09/2018 (8528) [email or web address] Orig Print D/T: S: 04/09/2018 (2021) CTDI: DLP: PAGE 1 Signed Report URINALYSIS [id number] 13:28:00* Test Item Value Reference Range Interpretation [...] per LPF NONE-FEW Urine Source? Clean CatchURINALYSIS [id number] 12:46:00* Test Item Value Reference Range Interpretation [...] HPF 0-5 Urine Source? Clean CatchCBC W/O UKIS2874-11-02 12:33:00* Test Item Value Reference Range Interpretation [...] MPV) 11.6 fL 6.7-11.0 H BASIC METABOLIC PJHVN0901-00-31 12:08:00* Test Item Value Reference Range Interpretation [...] CA) 8.2 mg/dL 8.5-10.1 L HEPATIC FUNCTION [id number] 12:08:00* Test Item Value Reference Range Interpretation [...] reference range due to change in reagent. [id number] 12:08:00* Test Item Value Reference Range Interpretation Comments LIPASE (test code = LIP) 114 U/L 73.0-393.0 N XBKBUAXO-G3495-28-28 12:08:00* Test Item Value Reference Range Interpretation Comments TROPONIN-I (test code = TROPI) <0.015 ng/mL 0-0.045 N BASIC METABOLIC [id number] 11:58:00* Test Item Value Reference Range Interpretation [...] code = CA) mg/dL 8.5-10.1 HEPATIC FUNCTION [id number] 11:58:00* Test Item Value Reference Range Interpretation [...] TOTAL (test code = ALKP) IUnit/L 45-117 HQIOJN7124-95-33 11:58:00* Test Item Value Reference Range Interpretation Comments LIPASE (test code = LIP) U/L 73.0-393.0 BASIC METABOLIC ZWRJV1649-68-28 11:52:00* Test Item Value Reference Range Interpretation [...] code = CA) mg/dL 8.5-10.1 HEPATIC FUNCTION [id number] 11:52:00* Test Item Value Reference Range Interpretation [...] TOTAL (test code = ALKP) IUnit/L 45-117 CJFNSF3849-80-02 11:52:00* Test Item Value Reference Range Interpretation Comments LIPASE (test code = LIP) U/L 73.0-393.0 PROTHROMBIN [id number] 11:42:00* Test Item Value Reference Range Interpretation [...] (2.5-3.5) IS PATIENT ON ANTICOAGULANTS? NTHROMBOPLASTIN TIME [id number] 11:42:00* Test Item Value Reference Range Interpretation Comments THROMBOPLASTIN TIME PARTIAL (test code = PTT) 39.0 seconds 25.0-36. 5 H IS PATIENT ON ANTICOAGULANTS? WENCESLAOIAPEGBB6982-90-50 12:51:00 RUN DATE: 12/25/17 [place] [facility] PAGE 1 RUN TIME: 1251 Specimen Inqui ry RUN USER: INTERFACE PATIENT: JOCELIN CORREA ACCT #: [id number] LOC: DEON U #: [id number] AGE/SX: 47/M ROOM: [facility] RE12/19/17REG DR: Giovanna Rees MD : 70 BED: A DIS: 12/21/17 STATUS: DIS IN TLOC: SPEC #: [id number] RECD: 12/19/17 STATUS: SOUT REQ #: [id number] MELISA: 12/19/17-[address] [facility] [address]: Yuval Multani MD ENTERED: 10/09/18-1236 SP TYPE: FL ASCITES OTHR DR: Ian Olivas i, MD ORDERED: GROSS COPIES TO: Ian Cook MD [address], [address] [place], [place] [address] Yuval Multani MD [address] [place] [address] PROCEDURES: GROSS (12/25/17- 7) TISSUES: ASCITES FLUID - 20 ML RED CLINICAL HISTORY MELISA ECTION DATE: 12/19/17 HISTORY CIRRHOSIS, HEPATITIS C, PANCYTOPENIA FINAL DIAGNOSIS Ascites fluid for cytology, paracentesis: MESOTHELIAL CELLS, MACROPHAGES, WHITE BLOOD CELLS- PREDOMINATELY LYMPHOCYTES, AND R ED BLOOD CELLS NEGATIVE FOR MALIGNANCY DMW/arin D 76169, 883 05 MACROSCOPIC The specimen consists of 20 mL of red fluid for conc entration and evaluation. A cell block will be prepared. GROSS PERFORM ED AT [facility] CONTINUED ON NEXT PAGE RUN DATE: 12/25/17 [facility] PAGE 2 RUN TIME: 1251 Specimen Inquiry RUN USER: INTERFACE SPEC #: [id number] PATIENT: MICHELLE CORREAEAL #[id number] (Continued)------ ------ MACROSCOPIC (Continued) [address], [place] [address] (P)[phone] MICROSCOPIC MICROSCOPIC PERFOR MED AT [facility] All of the stains, including any controls perfor med, stain appropriately. [facility] [address], [place] [address] (P)[phone] PERFORMING SITE Diagnosis perform ed at: [facility], [place] [address] [place] [address] Signed SIGNATURE ON FILE AguilaMireya M 12/25/17 1251 END OF REPORT STOMACH 2017-12-22 13:27:00 RUN DATE: 12/22/17 [place] [facility] PAGE 1 RUN TIME: 1327 Specimen Inqui ry RUN USER: INTERFACE PATIENT: JOCELIN CORREA ACCT #: V [id number] LOC: DEON U #: [id number] AGE/SX: 47/M ROOM: [facility] RE12/19/17REG DR: Giovanna Rees MD : 70 BED: A DIS: 12/21/17 STATUS: DIS IN TLOC: SPEC #: [id number] RECD: 12/21/17 STATUS: [facility] #: [id number] MELISA: 12/20/17- SUBM DR: González Nunez MD ENTERED: 12/21/17-1110 SP TYPE: STOMACH OTHR DR: Ian Olivas i, MD ORDERED: GROSS COPIES TO: González Nunez MD [address] [place] [address] Ian Cook MD [address] [place] [address] PROCEDURES: GROSS (12/22/17-1054 ) TISSUES: [...] STAIN NE GATIVE FOR MALIGNANCY RRB/ D 65641, 66373 CONTINUED ON NEXT PAGE RUN DATE: 12/22/17 [place] [facility] PAGE 2 RUN TIME: 1327 Specimen Inquiry RUN USER: INTERF MARTIN SPEC # : [id number] PATIENT: SUNNYJOCELIN #[id number] (Cont inued) MACROSCOPIC The specimen is received in formali n, labeled with the patient's name, identified as "gastric", and consists of l lavonnet king biopsy tissue measuring 0.35 cm in aggregate, submitted for H E and G iemsa stains. GROSS PERFORMED AT [facility] [address] [place] [address] (P)[phone] MICR OSCOPIC MICROSCOPIC PERFORMED AT [facility] All of the stains, including any controls performed, stain appropriately. [facility] [address] [facility] [place] [address] (p)[phone] PERFORM ING SITE Diagnosis performed at: [facility] [place] [address] [facility] [address] --------- --- Signed SIGNATURE ON FILE Elvis Schmid 12/22/17 1327 END OF REP ORT CHEM [id number] 14:13:001.2[facility] CahoripVSJWKMRVBH3467-44-57 07:45:001.0[facility] IgpdyvaCLIUNTSWHY0901-95-31 07:45:001.9[facility] Levon GXBDWBPEPG5349-67-13 07:45:000.2[facility] LgmadfuPRTSRZPJHR5109-45-61 07:45:000.5 [facility] WpnwhxgEAFTQARBIS3909-97-61 07:45:000.9[facility] HermannHEMATOLOGY 2017-09-16 07:45:005.5[facility] MgddpbaILXNXZPEPO6471-93-15 07:45:0053.9[facility] JkafeseMVHVGSTZKD2610-75-65 07:45:0012.6[facility] JuspdkcPWWZGOHGBB4353-54-68 07:45:0027.1[facility] GmaiewuNCOIPEYFAI6522-16-75 07:45:00* Test Item Value Reference Range Interpretation Comments PTT (test code = PTT) 33.3 s 22.9-35.8 [facility] NbboadbJLCZHQKGQY7370-45-42 07:45:00* Test Item Value Reference Range Interpretation Comments INR (test code = INR) 1.53 1 0.85-1.17 [facility] WewizjqJUGEZPIKCR9667-43-07 07:45:00* Test Item Value Reference Range Interpretation Comments PT (test code = PT) 18.5 s 12.0-14.7 [facility] NguqnwlPTNUQLWBAK0490-56-87 07:45:0033.1[facility] HermannHEMATOLOGY 2017-09-16 07:45:0029.3[facility] FogxvbwCGDRXQRZXH0184-50-02 07:45:0097.4[facility] FehnzgmJYSHBXYNSO3552-81-00 07:45:00* Test Item Value Reference Range Interpretation Comments MCH (test code = MCH) 32.2 pg 27.0-31.0 [facility] VatmcckCJFZJVLYGD2183-74-69 07:45:0068[facility] HermannHEMATOLOGY 2017-09-16 07:45:0017.5[facility] CnyymgfJGLRIZACVQ3920-01-00 07:45:008.2[facility] GddyghcMFFVPKLURW1514-45-51 07:45:003.01[facility] XrspreqWWGYHNLNVX5738-64-33 07:45:009.7[facility] EyzpliuAIHCHRIMVO2617-31-07 07:45:003.6[facility] [place] CARDIAC PMEOLCI9885-89-90 07:24:00<1.3[facility] HermannCARDIAC TGCWRIH8347-84-67 07:24:00<1.0[facility] HermannCARDIAC BJLJEAF7654-97-11 07:24:0079[facility] [place] CARDIAC XGDIJIY7907-96-89 07:24:00<0.02[facility] HermannCHEM CSBCX8020-85-33 07:24:006.0[facility] HermannCHEM BFEOQ1936-68-11 07:24:00* Test Item Value Reference Range Interpretation Comments B/C Ratio (test code = B/C Ratio) 16 1 6-25 [facility] HermannCHEM UAABZ0243-59-44 07:24:00* Test Item Value Reference Range Interpretation Comments A/G Ratio (test code = A/G Ratio) 0.3 1 0.7-1.6 [facility] HermannCHEM AIPGH3930-17-66 07:24:0099[facility] HermannCHEM PANEL 2017-09-16 07:24:0086[facility] HermannCHEM GUWQE5812-13-10 07:24:001.5[facility] HermannCHEM BUKAZ4151-18-99 07:24:007.7[facility] HermannCHEM OPNQK5714-54-84 07:24:73920Svukvwhe HermannCHEM JNLMW3181-00-03 07:24:27627Fszsmoty HermannCHEM TOJRK3856-72-35 07:24:004.7[facility] HermannCHEM KZDSW7272-11-80 07:24:008.3 [facility]annCHEM CSYTI2881-24-87 07:24:0026[facility] HermannCHEM PANEL 2017-09-16 07:24:007.8[facility] HermannCHEM HJLDK4440-05-89 07:24:0033[facility] HermannCHEM CIARP1904-29-97 07:24:001.8[facility] HermannCHEM UCHJM9847-67-15 07:24:000.82[facility] HermannCHEM COZFQ0510-58-94 07:24:0013[facility] HermannCHEM MPSHT6370-49-92 07:24:65081Eskezdwx HermannCHEM QTAOL8481-84-14 07:24:0095 [facility] HermannCHEM YWDIB7682-15-18 07:24:31837Gqpwlzmd HermannURINE AND STOOL 2017-09-16 07:24:004.0[facility] HermannURINE AND SRMYI2305-96-57 07:24:00Negative (09/16/17 2:24 AM)[facility]annURINE AND AUFVL7382-75-13 07:24:00Negative (09/16/17 2:24 AM)[facility]annUR[facility] AND MVEZF2127-07-21 07:24:003[facility]annURINE AND CYPQM5435-71-29 07:24:0069[facility] HermannURINE AND STOOL 2017-09-16 07:24:00Slight *ABN*(09/16/17 2:24 AM)[facility]annURINE AND STOOL 2017-09-16 07:24:00* Test Item Value Reference Range Interpretation Comments UA Spec Grav (test code = UA Spec Grav) 1.019 1 [facility]annURINE AND OTUYO5199-20-98 07:24:00* Test Item Value Reference Range Interpretation Comments UA pH (test code = UA pH) 6.0 1 5.0-8.0 [facility]annUR[facility] AND UMCKU3563-17-53 07:24:00Moderate *ABN*(09/16/17 2:24 AM) [facility]ann[facility] AND RWGFG6389-53-22 07:24:00Negative *NA*(09/16/17 2:24 AM) [facility] Szvtmrk6542-84-19 16:48:00* Test Item Value Reference Range Interpretation Comments Blood Culture (test code = 97129723) NO GROWTH AFTER 5 DAYS, FINAL REPORT [facility] A IgM Vrqjxljh7532-06-13 10:18:00* Test Item Value Reference Range Interpretation Comments Hepatitis A IgM Antibody (test code = 09055-3) Negative [facility] B Surface Ncfnfyh2858-75-18 10:18:00* Test Item Value Reference Range Interpretation Comments Hepatitis B Surface Antigen (test code = 5196-1) Negative [facility] B Core IgM Ggkxzfjl4409-25-63 10:18:00* Test Item Value Reference Range Interpretation Comments Hepatitis B Core IgM Antibody (test code = 34999-5) Negative [facility] C Cfadnzlu2115-42-94 10:18:00* Test Item Value Reference Range Interpretation Comments Hepatitis C Antibody (test code = 37805-9) 11.0- Reference Range: 0.0 - 0.9 s/co ratioNegative: < 0.8Indeterminate: 0.8 - 0.9Positive: > 0.9 The CDC recommends that a positive HCV antibody result be followed up with a HCV Nucleic Acid Amplification test (049220).Results called to SERG LINTON RN at 1017 on 06/20/17 by Michael Whalen. RB OK.Testing performed by:[address] [id number]: Lopez Morgan [facility] Trophy ClubPlatelet Ymljrhhf2494-74-22 10:18:00* Test Item Value Reference Range Interpretation Comments Platelet Estimate (test code = 42122-3) SLIGHTLY DECREASED [facility] CenterPlatelet Morphology Ngfsmoq9145-60-88 10:18:00* Test Item Value Reference Range Interpretation Comments Platelet Morphology Comment (test code = 94695-6) FEW GIANT [facility] CenterHypochromasia2018-04-09 10:18:00* Test Item Value Reference Range Interpretation Comments Hypochromasia (test code = 728-6) MODERATE [facility] CenterPoikilocytosis2018-04-09 10:18:00* Test Item Value Reference Range Interpretation Comments Poikilocytosis (test code = 779-9) SLIGHT [facility] CenterAnisocytosis2018-04-09 10:18:00* Test Item Value Reference Range Interpretation Comments Anisocytosis (test code = 702-1) SLIG [facility] CenterRed Cell Morphology Kpurvcl7892-05-24 10:18:00* Test Item Value Reference Range Interpretation Comments Red Cell Morphology Comment (test code = 6742-1) NORMAL [facility] CenterProthrombin Fsof3675-55-53 08:34:00* Test Item Value Reference Range Interpretation Comments Prothrombin Time (test code = 5902-2) 18.4 11.9-14.5 H [facility] CenterProthromb Time International Ratio 2017-06-19 08:34:00* Test Item Value Reference Range Interpretation Comments Prothromb Time International Ratio (test code = 6301-6) 1.66 Oral Anticoagulant Therapy INR Values:1. Low Intensity Therapy 1.5 - 2.02 . Moderate Intensity Therapy 2.0 - 3.03. High Intensity Therapy(1) 2.5 - 3. 54. High Intensity Therapy(2) 3.0 - 4.05. Panic Value INR > 5.0 [facility] CenterActivated Partial Thromboplast Time 2017-06-19 08:34:00* Test Item Value Reference Range Interpretation Comments Activated Partial Thromboplast Time (test code = 39086-3) 37.5 23.8-35.5 H [facility] CenterTotal Khalsskbf5879-20-62 08:09:00* Test Item Value Reference Range Interpretation Comments Total Bilirubin (test code = 1975-2) 2.0 0.2-1.2 H [facility] Hospitalodium Zasbs6533-14-38 08:01:00* Test Item Value Reference Range Interpretation Comments Sodium Level (test code = 2951-2) 131 136-145 L [facility] CenterPotassium Gtnvu8075-16-97 08:01:00* Test Item Value Reference Range Interpretation Comments Potassium Level (test code = 2823-3) 3.5 3.5-5.1 [facility] CenterChloride Ditij6010-54-93 08:01:00* Test Item Value Reference Range Interpretation Comments Chloride Level (test code = 2075-0) 102 98-107 [facility] CenterCarbon Dioxide Ridwn1480-12-29 08:01:00* Test Item Value Reference Range Interpretation Comments Carbon Dioxide Level (test code = 2028-9) 27 22-29 [facility] CenterAnion Vcu0072-61-82 08:01:00* Test Item Value Reference Range Interpretation Comments Anion Gap (test code = 00386-1) 5.5 8-16 L [facility] CenterBlood Urea Cggbmtrk9707-36-64 08:01:00* Test Item Value Reference Range Interpretation Comments Blood Urea Nitrogen (test code = 3094-0) 8 7-26 [facility] CenterCreatinine2018-04-09 08:01:00* Test Item Value Reference Range Interpretation Comments Creatinine (test code = 2160-0) 0.85 0.72-1.25 [facility] CenterBUN/Creatinine Nzein4229-30-38 08:01:00* Test Item Value Reference Range Interpretation Comments BUN/Creatinine Ratio (test code = 3097-3) 9 6-25 [facility] CenterEstimat Glomerular Filtration Rate 2017-06-19 08:01:00* Test Item Value Reference Range Interpretation Comments Estimat Glomerular Filtration Rate (test code = 79992-9) 60- >60 Ranges were taken from the National Kidney Disease Education Program and the Lori [facility] hospitalal Kidney Foundation literature.Reference ranges:60 or greater: Mlayhi51-80 ( for 3 consecutive months): Chronic kidney disease 15 or less: Kidney failureChildress Regional Medical CenterGlucose Lznkw7428-44-85 08:01:00* Test Item Value Reference Range Interpretation Comments Glucose Level (test code = FMG8906) 121 74-118 H [facility] CenterCalcium Pscbf9167-34-74 08:01:00* Test Item Value Reference Range Interpretation Comments Calcium Level (test code = 42993-6) 7.3 8.4-10.2 L [facility] CenterAspartate Amino Transf (AST/SGOT) 2017-06-19 08:01:00* Test Item Value Reference Range Interpretation Comments Aspartate Amino Transf (AST/SGOT) (test code = Aspartate Amino Transf (AST/SGOT)) 51 5-34 H [facility] CenterAlanine Aminotransferase (ALT/SGPT) 2017-06-19 08:01:00* Test Item Value Reference Range Interpretation Comments Alanine Aminotransferase (ALT/SGPT) (test code = 1742-6) 17 0-55 [facility] CenterTotal Sqyodca6048-43-22 08:01:00* Test Item Value Reference Range Interpretation Comments Total Protein (test code = 2885-2) 6.5 6.5-8.1 [facility] CenterAlbumin2018-04-09 08:01:00* Test Item Value Reference Range Interpretation Comments Albumin (test code = 1751-7) 1.6 3.5-5.0 L [facility] CenterGlobulin2018-04-09 08:01:00* Test Item Value Reference Range Interpretation Comments Globulin (test code = 36950-4) 4.9 2.3-3.5 H [facility] CenterAlbumin/Globulin Ttttq1720-68-05 08:01:00 * Test Item Value Reference Range Interpretation Comments Albumin/Globulin Ratio (test code = 1759-0) 0.3 0.8-2.0 L [facility] CenterAlkaline Hjhklbgkcda2901-00-32 08:01:00* Test Item Value Reference Range Interpretation Comments Alkaline Phosphatase (test code = 6768-6) 47 40-150 [facility] CenterWhite Blood Dxlvf4683-62-35 07:48:00* Test Item Value Reference Range Interpretation Comments White Blood Count (test code = 6690-2) 2.52 4.8-10.8 L [facility] CenterRed Blood Measw8037-30-21 07:48:00* Test Item Value Reference Range Interpretation Comments Red Blood Count (test code = 789-8) 2.78 4.3-5.7 L [facility] CenterHemoglobin2018-04-09 07:48:00* Test Item Value Reference Range Interpretation Comments Hemoglobin (test code = 68243-2) 9.3 14.0-18.0 L [facility] CenterHematocrit2018-04-09 07:48:00* Test Item Value Reference Range Interpretation Comments Hematocrit (test code = 4544-3) 27.3 38.2-49.6 L [facility] CenterMean Corpuscular Kqopyl8649-60-62 07:48:00* Test Item Value Reference Range Interpretation Comments Mean Corpuscular Volume (test code = 787-2) 98.2 81-99 [facility] CenterMean Corpuscular Hrukiahovb8063-11-10 07:48:00* Test Item Value Reference Range Interpretation Comments Mean Corpuscular Hemoglobin (test code = 785-6) 33.5 28-32 H [facility] CenterMean Corpuscular Hemoglobin Concent 2017-06-19 07:48:00* Test Item Value Reference Range Interpretation Comments Mean Corpuscular Hemoglobin Concent (test code = 786-4) 34.1 31-35 [facility] CenterRed Cell Distribution Wdmuj2228-83-28 07:48:00* Test Item Value Reference Range Interpretation Comments Red Cell Distribution Width (test code = 24437-9) 15.1 11.7 -14.4 H [facility] CenterPlatelet Tcmry8133-74-32 07:48:00* Test Item Value Reference Range Interpretation Comments Platelet Count (test code = 777-3) 46 140-360 LL Results called to SOILA JACKRN at 0748 on 06/19/17 by Michael Whalen. RB OK.[facility] CenterNeutrophils (%) (Auto)2017-06-19 07:48:00* Test Item Value Reference Range Interpretation Comments Neutrophils (%) (Auto) (test code = 87059-9) 48.0 38.7-80.0 [facility] CenterLymphocytes (%) (Auto)2017-06-19 07:48:00 * Test Item Value Reference Range Interpretation Comments Lymphocytes (%) (Auto) (test code = 736-9) 27.0 18.0-39.1 [facility] CenterMonocytes (%) (Auto)2017-06-19 07:48:00* Test Item Value Reference Range Interpretation Comments Monocytes (%) (Auto) (test code = 5905-5) 16.3 4.4-11.3 H [facility] CenterEosinophils (%) (Auto)2017-06-19 07:48:00 * Test Item Value Reference Range Interpretation Comments Eosinophils (%) (Auto) (test code = 713-8) 7.9 0.0-6.0 H [facility] CenterBasophils (%) (Auto)2017-06-19 07:48:00* Test Item Value Reference Range Interpretation Comments Basophils (%) (Auto) (test code = 706-2) 0.4 0.0-1.0 [facility] CenterIM GRANULOCYTES %2017-06-19 07:48:00* Test Item Value Reference Range Interpretation Comments IM GRANULOCYTES % (test code = IM GRANULOCYTES %) 0.4 0.0- 1.0 [facility] CenterNeutrophils # (Auto)2017-06-19 07:48:00* Test Item Value Reference Range Interpretation Comments Neutrophils # (Auto) (test code = 751-8) 1.2 2.1-6.9 L [facility] CenterLymphocytes # (Auto)2017-06-19 07:48:00* Test Item Value Reference Range Interpretation Comments Lymphocytes # (Auto) (test code = 63395-8) 0.7 1.0-3.2 L [facility] CenterMonocytes # (Auto)2017-06-19 07:48:00* Test Item Value Reference Range Interpretation Comments Monocytes # (Auto) (test code = 742-7) 0.4 0.2-0.8 [facility] CenterEosinophils # (Auto)2017-06-19 07:48:00* Test Item Value Reference Range Interpretation Comments Eosinophils # (Auto) (test code = 711-2) 0.2 0.0-0.4 [facility] CenterBasophils # (Auto)2017-06-19 07:48:00* Test Item Value Reference Range Interpretation Comments Basophils # (Auto) (test code = 704-7) 0.0 0.0-0.1 [facility] CenterAbsolute Immature Granulocyte (auto 2017-06-19 07:48:00* Test Item Value Reference Range Interpretation Comments Absolute Immature Granulocyte (auto ([place] t code = Absolute Immature Granulocyte (auto) 0.01 0-0.1 [facility] CenterDifferential Total Cells Counted 2017-06-16 09:31:00* Test Item Value Reference Range Interpretation Comments Differential Total Cells Counted (test code = Differen tial Total Cells Counted) 100 [facility] CenterNeutrophils % (Manual)2017-06-16 09:31:00 * Test Item Value Reference Range Interpretation Comments Neutrophils % (Manual) (test code = 61402-1) 73 40-74 [facility] CenterLymphocytes % (Manual)2017-06-16 09:31:00 * Test Item Value Reference Range Interpretation Comments Lymphocytes % (Manual) (test code = 737-7) 14 19-48 L [facility] CenterMonocytes % (Manual)2017-06-16 09:31:00* Test Item Value Reference Range Interpretation Comments Monocytes % (Manual) (test code = 744-3) 2 3.4-9.0 L [facility] CenterEosinophils % (Manual)2017-06-16 09:31:00 * Test Item Value Reference Range Interpretation Comments Eosinophils % (Manual) (test code = 714-6) 8 0-7 H [facility] CenterBasophils % (Manual)2017-06-16 09:31:00* Test Item Value Reference Range Interpretation Comments Basophils % (Manual) (test code = 56047-8) 1 0-1.5 [facility] CenterMetamyelocytes %2017-06-16 09:31:00* Test Item Value Reference Range Interpretation Comments Metamyelocytes % (test code = 740-1) 2 0-0 H [facility] CenterVitamin B12 Wifkb8191-92-34 07:59:00* Test Item Value Reference Range Interpretation Comments Vitamin B12 Level (test code = 71816-9) 887 213-816 H [facility] CenterFolate2018-04-06 07:59:00* Test Item Value Reference Range Interpretation Comments Folate (test code = 2284-8) 10.3 7.0-15.4 [facility] CenterFerritin2018-04-06 07:39:00* Test Item Value Reference Range Interpretation Comments Ferritin (test code = 2276-4) 220.60 21.81-274.66 [facility] CenterIron Zoiyu6433-73-51 07:25:00* Test Item Value Reference Range Interpretation Comments Iron Level (test code = 2498-4) 102 65-175 [facility] CenterTotal Iron Binding Dycejgux6274-78-84 07:25:00* Test Item Value Reference Range Interpretation Comments Total Iron Binding Capacity (test code = 2500-7) 274 261-4 78 [facility] CenterPercent Iron Ijuijlglzm5087-89-85 07:25:00* Test Item Value Reference Range Interpretation Comments Percent Iron Saturation (test code = 2502-3) 37 15-50 [facility] CenterTransferrin2018-[facility] 07:25:00* Test Item Value Reference Range Interpretation Comments Transferrin (test code = 3034-6) 196 174-364 [facility] CenterDirect Kolxrkgio0209-79-05 07:22:00* Test Item Value Reference Range Interpretation Comments Direct Bilirubin (test code = 15596-2) 2.0 0.0-0.5 H [facility] CenterAmylase Ssuag8957-11-00 07:22:00* Test Item Value Reference Range Interpretation Comments Amylase Level (test code = 1798-8) 65 25-125 [facility] CenterLipase2018-04-06 07:22:00* Test Item Value Reference Range Interpretation Comments Lipase (test code = 3040-3) 16 8-78 [facility] CenterPercent Reticulocyte Pmwgx2949-25-95 07:04:00* Test Item Value Reference Range Interpretation Comments Percent Reticulocyte Count (test code = 33021-3) 2.6 0.8-2 .2 H [facility] CenterAmmonia2018-04-05 21:00:00* Test Item Value Reference Range Interpretation Comments Ammonia (test code = 09217-5) 58 31-123 [facility] CenterBody Fluid Iwjcunodata8059-63-65 18:25:00 * Test Item Value Reference Range Interpretation Comments Body Fluid Neutrophils (test code = 84536-8) 11 MESOTHELIAL CELLS SEEN, RESULTED "OTHER"[facility] Fluid Clrgpwdmets2352-01-80 18:25:00* Test Item Value Reference Range Interpretation Comments Body Fluid Lymphocytes (test code = 84491947) 15 [facility] Center[facility] Fluid Oemfxvlus9054-74-29 18:25:00* Test Item Value Reference Range Interpretation Comments Body Fluid Monocytes (test code = 51053-0) 64 [facility] Center[facility] Fl[facility] Other Khkoi6805-10-82 18:25:00 * Test Item Value Reference Range Interpretation Comments Body Fluid Other Cells (test code = 542099433) 10 [facility] Fl[facility] Total Cells Xenqlzf4516-20-30 18:25:00* Test Item Value Reference Range Interpretation Comments Body Fluid Total Cells Counted (test code = 48067-3) 100 [facility] Fluid Wuoljrb8481-18-09 18:25:00* Test Item Value Reference Range Interpretation Comments Body Fluid Comment (test code = Body Fluid Comment) SEE COMMENT [facility] Occult Xtlkw9081-93-67 18:21:00* Test Item Value Reference Range Interpretation Comments Stool Occult Blood (test code = 2335-8) POSITIVE NEGATIVE H [facility] CenterBody Fluid Xlkz7392-44-20 17:33:00* Test Item Value Reference Range Interpretation Comments Body Fluid Type (test code = 15747-0) PERITONEAL RIGHT ABD FLUIDChild[facility] CenterBody Fluid Bqwnj8201-91-63 17:33:00* Test Item Value Reference Range Interpretation Comments Body Fluid Color (test code = 6824-7) YELLOW [facility] Fluid Rhorvfnshw6842-83-51 17:33:00 * Test Item Value Reference Range Interpretation Comments Body Fluid Appearance (test code = 9335-1) CLOUDY [facility] Center[facility] Fl[facility] CLM5546-83-11 17:33:00* Test Item Value Reference Range Interpretation Comments Body Fluid WBC (test code = 6743-9) 163 [facility] Center[facility] Fluid TGD2851-07-16 17:33:00* Test Item Value Reference Range Interpretation Comments Body Fluid RBC (test code = 6741-3) 1519 [facility] CenterUrine RAN6203-41-95 16:17:00* Test Item Value Reference Range Interpretation Comments Urine WBC (test code = 5821-4) NONE 0-5 [facility] TCY2164-93-09 16:17:00* Test Item Value Reference Range Interpretation Comments Urine RBC (test code = 93210-5) 11-20 0-5 H [facility] Center[facility] Ncfgqdxx5946-15-56 16:17:00* Test Item Value Reference Range Interpretation Comments Urine Bacteria (test code = 36686-5) NONE NONE [facility] Epithelial Xwdpd6765-00-05 16:17:00 * Test Item Value Reference Range Interpretation Comments Urine Epithelial Cells (test code = 00525-4) NONE NONE [facility] Chamu2150-46-32 15:54:00* Test Item Value Reference Range Interpretation Comments Urine Color (test code = 5778-6) ORANGE YELLOW H [facility] CenterU[facility] Uqxsfgz7311-27-86 15:54:00* Test Item Value Reference Range Interpretation Comments Urine Clarity (test code = 19185-5) CLOUDY CLEAR H [facility] Center[facility] Specific Nhfvvms1637-52-44 15:54:00 * Test Item Value Reference Range Interpretation Comments Urine Specific Cameron (test code = 5811-5) 1.010 1.010-1.02 5 [facility] Center[facility] pF8066-21-69 15:54:00* Test Item Value Reference Range Interpretation Comments Urine pH (test code = 46038-1) 7 5-7 [facility] Leukocyte Ktdqlggs5506-91-81 15:54:00* Test Item Value Reference Range Interpretation Comments Urine Leukocyte Esterase (test code = 5799-2) NEGATIVE NEGATIVE [facility] Tqfghvb7355-16-54 15:54:00* Test Item Value Reference Range Interpretation Comments Urine Nitrite (test code = 78938-6) NEGATIVE NEGATIVE [facility] Wgrfkzy9101-18-09 15:54:00* Test Item Value Reference Range Interpretation Comments Urine Protein (test code = 5804-0) 1+ NEGATIVE H [facility] Glucose (UA)2017-06-15 15:54:00* Test Item Value Reference Range Interpretation Comments Urine Glucose (UA) (test code = 2349-9) NEGATIVE NEGATIVE [facility] Huuvfkx6556-24-89 15:54:00* Test Item Value Reference Range Interpretation Comments Urine Ketones (test code = 72079-9) TRACE NEGATIVE H [facility] Txtlijvtseas4279-60-52 15:54:00* Test Item Value Reference Range Interpretation Comments Urine Urobilinogen (test code = 42415-3) 8 0.2-1 H [facility] Dsknuhwch5517-81-99 15:54:00* Test Item Value Reference Range Interpretation Comments Urine Bilirubin (test code = 1978-6) 2+ NEGATIVE H Confirmatory test currently unavailable. False positive results may occur.[facility] Cunzw4874-33-52 15:54:00* Test Item Value Reference Range Interpretation Comments Urine Blood (test code = 75468-1) 2+ NEGATIVE [facility] [address] [address] Patient Name: JOCELIN CORREA MR #: [id number] : 1970 Age/Sex: 47/M Req #: [id number] Adm Physician: ROME HOPPER MD Ordered by: AMARA GUTHRIE MD Report #: [id number] Location: MED/SURG Room/Bed: [facility] [place] Procedure: [id number] US/US LIVER Exam Date: 06/20/17 Exam Time: [...] 11:33 AM Dictated By: DIANA VELARDE MD 113 Transcribed By: ZAHEER on 06/20/17 113 COPY TO: AMARA GUTHRIE MD CT ABDOMEN/PELVIS [address] [address] Patient Name: JOCELIN CORREA MR #: [id number] : 1970 Age/Sex: 47/M Req #: [id number] Adm Physician: Ordered by: EZ MANDUJANO MD Report #: [id number] Location: ER Room/Bed: Procedure: [id number] CT/CT ABDOMEN/PELVIS W Exam Date: Exam Time: REPORT STATUS: Signed [place] OCEDURE: CT ABDOMEN AND PELVIS WITH CONTRAST [...] 2. Large volume ascites. Given fever, con catalogue maker correlation for SBP. 3. Splenomegaly likely related to portal hypertens ion. Dictated by: Deandre Gan M.D. on 06/15/2017 at 14:50 Electronically approved by: Deandre Gan M.D. on 06/15/2017 at 14:50 Dictated By: DEANDRE GAN MD 1450 Transcribed By: MARCO on 06/15/17 1450 COPY TO: EZ MANDUJANO MD US GUIDED PARACENTESIS [address] [address] Patient Name: JOCELIN CORREA MR #: [id number] : 1970 Age/Sex: 47/M Req #: [id number] Adm Physician: ROME HOPPER MD Ordered by: JESUS MARKS HAND RUG CLEANER Report #: [id number] Location: [facility] Room/Bed: [place] [address] Procedure: [id number] US /US GUIDED PARACENTESIS Exam Date: 06/15/17 [...] at 17:10 Dictated By: DEANDRE GAN MD 1710 Transcribed By: MARCO on 06/15/17 1710 COPY TO: JESUS MARKS NP
--- NOTE | 2019-08-23 20:01 | NUR ---
Received report from ER nurse. Patient into 290 with telemetry.
[2019-08-23 20:16] VITALS: BP 137/88
--- NOTE | 2019-08-23 20:22 | NUR ---
Patient arrived to the floor via stretcher. AAO3.
[2019-08-23 21:00] VITALS: BP 137/88
[2019-08-23] MEDS: MORPHINE SULFATE INJ 4 MG/ML INJ 1ML IV PRN (21:03)
[2019-08-23] MEDS: ONDANSETRON HCL INJ 2MG/ML 2ML 2 MG/ML VIAL IV PRN (21:03)
[2019-08-23] MEDS ORDERED: POTASSIUM CHLORIDE 20 MEQ TAB CR PO STA (23:18)
[2019-08-24] VITALS (8 sets, daily range): BP systolic 124–137; BP diastolic 74–87
--- NOTE | 2019-08-24 | NUR ---
Patient c/o pain back = 5-6. Meds given as ordered by MD. Continue monitor.
--- NOTE | 2019-08-24 02:21 | NUR ---
Patient resting quitly with no c/o at this time.
[2019-08-24 02:28] LABS: CREATINE KINASE MB 0.5 ng/mL (0-5.0)
[2019-08-24] MEDS: SODIUM CHLORIDE 0.9% 1000ML 1,000 ML IV SCH ×3 (03:00→18:31)
[2019-08-24] MEDS: MORPHINE SULFATE INJ 4 MG/ML INJ 1ML IV PRN ×3 (03:39→11:50)
[2019-08-24] MEDS: ONDANSETRON HCL INJ 2MG/ML 2ML 2 MG/ML VIAL IV PRN ×6 (03:39→23:55)
--- NOTE | 2019-08-24 06:42 | NUR ---
RECEIVED BEDSIDE SHIFT REPORT FROM OFF GOING NURSE. PATIENT IS RESTING IN BED. NO ACUTE DISTRESS NOTED. CARE PROVIDER AT BEDSIDE. CALL LIGHT WITHIN REACH. BED IN THE LOWEST POSITION.
[2019-08-24 07:11] LABS: BASOPHILS % 1.1 % (0.0-1.0); EOSINOPHILS # (AUTO) 0.2 (0.0-0.4); EOSINOPHILS % 12.2 % (0.0-6.0); HEMOGLOBIN 8.1 g/dL (14.0-18.0); LYMPHOCYTES # (AUTO) 0.5 (1.0-3.2); LYMPHOCYTES % 25.4 % (18.0-39.1); MEAN CORPUSCULAR HEMOGLOBIN 22.6 pg (28-32); MEAN CORPUSCULAR VOLUME 75.4 fL (81-99); MONOCYTES # (AUTO) 0.4 (0.2-0.8); MONOCYTES % 20.4 % (4.4-11.3); NEUTROPHILS # (AUTO) 0.7 (2.1-6.9); NEUTROPHILS % 40.9 % (38.7-80.0); RED BLOOD COUNT 3.58 x10e6/uL (4.3-5.7); RED CELL DISTRIBUTION WIDTH 21.2 % (11.7-14.4)
[2019-08-24 07:22] LABS: PLATELET COUNT 31 x10e3/uL (140-360)
--- NOTE | 2019-08-24 07:28 | NUR ---
PAGED DR. MUNOZ, TO NOTIFY OF WBC OF 1.81 AND PLAT COUNT OF 31. PER MD HE WILL SEE PATIENT LATER.
[2019-08-24] MEDS: PANTOPRAZOLE SOD 40 MG TABEC PO SCH (07:45)
[2019-08-24 07:48] LABS: ALANINE AMINOTRANSFERASE 23 IU/L (0-55); ALBUMIN 2.7 g/dL (3.5-5.0); ALBUMIN/GLOBULIN RATIO 0.5 (0.8-2.0); ALKALINE PHOSPHATASE 71 IU/L (40-150); ANION GAP 12.8 mmol/L (8-16); BLOOD UREA NITROGEN 13 mg/dL (7-26); BUN/CREATININE RATIO 12 (6-25); CALCIUM 8.2 mg/dL (8.4-10.2); CARBON DIOXIDE 25 mmol/L (22-29); CHLORIDE 97 mmol/L (98-107); CREATININE, SERUM 1.11 mg/dL (0.72-1.25); EST GLOMERULAR FILTRATION RATE > 60 ML/MIN (60-); GLUCOSE 108 mg/dL (74-118); SODIUM 132 mmol/L (136-145)
[2019-08-24 07:51] LABS: CREATINE KINASE MB 0.9 ng/mL (0-5.0)
[2019-08-24 07:52] LABS: POTASSIUM 2.8 mmol/L (3.5-5.1)
--- NOTE | 2019-08-24 08:00 | NUR ---
PTT RESULTS OF 154.1, PER PROTOCOL STOPPED HEPARIN DRIP FOR 60 MINUTES AND DECREASED BY 200 UNITS. WILL RESTART AT 0900.
--- NOTE | 2019-08-24 08:08 | NUR ---
CALLED MILK BOTTLING MACHINE OPERATOR PHONE FOR DR. KELLY FOR CRITICAL LAB RESULTS OF 2.8. NO ANSWER, VOICEMAIL IS FULL.
--- NOTE | 2019-08-24 08:12 | NUR ---
NOTIFIED DR. MUNOZ OF PTT OF 154.1. PER MD, DISCONTINUE HEPARIN DRIP AND START PATIENT ON 2.5MG ARIXTRA SC DAILY.
--- NOTE | 2019-08-24 08:22 | NUR ---
NOTIFIED JOI GRACIA OF POTASSIUM OF 2.8. DIRECTOR DANCE ASKED FOR MAGNESIUM LEVEL, NOTIFIED DIRECTOR DANCE THAT LEVEL IS STILL PENDING. DIRECTOR DANCE ASKED NURSE TO CALL BACK TO THE SOCIAL MEDIA JOB TITLES NUMBER ONCE MAGNESIUM LEVEL WAS AVAILABLE. NO ORDERS AT THIS TIME.
--- NOTE | 2019-08-24 08:32 | NUR ---
PAGED JOI GARCIA FOR MAGNESIUM LEVEL OF 1.2. NO ANSWER, LVM.
[2019-08-24] MEDS: FONDAPARINUX SODIUM 2.5 MG/0.5 ML SYR SQ SCH (09:24)
[2019-08-24] MEDS ORDERED: POTASSIUM CHLORIDE 20 MEQ TAB CR PO NR ×2 (10:00→14:45)
[2019-08-24] MEDS ORDERED: MAGNESIUM SULFATE 2GM/50ML 100 ML IV ONE (10:00)
[2019-08-24 10:10] LABS: EOSINOPHILS % (MANUAL) 6 % (0-7); LYMPHOCYTES % (MANUAL) 27 % (19-48); MONOCYTES % (MANUAL) 11 % (3.4-9.0); NEUTROPHILS % (MANUAL) 54 % (40-74)
[2019-08-24 10:11] LABS: PLATELET ESTIMATE MARKEDLY DECREASED; PLATELET MORPHOLOGY COMMENT NORMAL; RBC MORPHOLOGY COMMENT NORMAL
--- NOTE | 2019-08-24 12:10 | NUR ---
PICC NURSE IN TO INSERT PICC LINE. DR. MUNOZ IN ROOM. PER MD CANCEL PICC LINE ORDER DUE TO PATIENT'S PLT BEING LOW AND HE WILL BLEED OR DEVELOP A HEMATOMA.
[2019-08-24] MEDS ORDERED: LEVAQUIN500 MG PO (12:38)
[2019-08-24] MEDS ORDERED: LACTULOSE20 GM/30 M PO (12:38)
[2019-08-24] MEDS: MORPHINE SULFATE 2 MG/ML SYR 1ML IV PRN ×3 (17:10→23:55)
[2019-08-24 17:27] LABS: CLARITY,URINE SL CLOUDY (CLEAR); COLOR,URINE ORANGE (YELLOW); LEUKOCYTE ESTERASE ,URINE NEGATIVE (NEGATIVE); NITRITE,URINE NEGATIVE (NEGATIVE)
[2019-08-24 17:28] LABS: BILIRUBIN,URINE SMALL (NEGATIVE); KETONES,URINE NEGATIVE (NEGATIVE); PROTEIN,URINE DIPSTICK 1+ (NEGATIVE); URINE UROBILINOGEN 0.2 mg/dL (0.2 - 1)
[2019-08-24 17:58] LABS: BACTERIA,URINE RARE /HPF; EPITHELIAL CELLS,URINE FEW /LPF; RBC,URINE 21-50 /HPF (0-5); WBC,URINE (MAN) 21-50 /HPF (0-5)
--- NOTE | 2019-08-24 19:02 | NUR ---
Bedside shift report given to oncoming nurse. Patient is in stable condition, resting in bed, no acute distress noted. Call light within reach. Bed in the lowest position.
--- NOTE | 2019-08-24 19:36 | NUR ---
Received change of shift report from AM nurse. Walking rounds completed.
[2019-08-24] MEDS: LACTULOSE SYRUP 20 GM/30 ML UDC PO SCH (20:18)
[2019-08-25] VITALS (7 sets, daily range): BP systolic 102–139; BP diastolic 63–88
--- NOTE | 2019-08-25 | NUR ---
Patient request pain and nausea meds q3hr. Meds given as ordered by .
--- NOTE | 2019-08-25 02:30 | NUR ---
Patient c/o cough up blood. Called and s/w Khalida BARAKAT. Received order for chest x-ray. X-ray ordered.
[2019-08-25] MEDS: MORPHINE SULFATE 2 MG/ML SYR 1ML IV PRN ×5 (03:28→20:58)
[2019-08-25] MEDS: ONDANSETRON HCL INJ 2MG/ML 2ML 2 MG/ML VIAL IV PRN ×4 (03:29→20:58)
--- NOTE | 2019-08-25 03:50 | NUR ---
Patient off the for for x-ray. x-ray completed.
--- NOTE | 2019-08-25 03:56 | Diagnostic Imaging Report ---
EXAMINATION: CHEST 2 VIEWS INDICATION: ^coughing up blood COMPARISON: None FINDINGS: PA and lateral views TUBES and LINES: None. LUNGS: Lungs are well inflated. Bilateral airspace opacities, most notable in the right lower lung field. PLEURA: No pleural effusion or pneumothorax. HEART AND MEDIASTINUM: The cardiomediastinal silhouette is unremarkable. BONES AND SOFT TISSUES: No acute osseous lesion. Soft tissues are unremarkable. UPPER ABDOMEN: No free air under the diaphragm. IMPRESSION: Bilateral airspace opacities, most notable in the right lower lung field, concerning for multifocal pneumonia. Signed by: Dr. Korey Velarde MD on 08/25/2019 3:53 AM
[2019-08-25 06:37] LABS: EOSINOPHILS # (AUTO) 0.3 (0.0-0.4); EOSINOPHILS % 9.7 % (0.0-6.0); HEMATOCRIT 26.6 % (38.2-49.6); LYMPHOCYTES # (AUTO) 0.5 (1.0-3.2); LYMPHOCYTES % 17.4 % (18.0-39.1); MEAN CORPUSCULAR HEMOGLOBIN 23.5 pg (28-32); MEAN CORPUSCULAR HGB CONC 30.1 g/dL (31-35); MEAN CORPUSCULAR VOLUME 78.2 fL (81-99); MONOCYTES # (AUTO) 0.4 (0.2-0.8); MONOCYTES % 14.1 % (4.4-11.3); NEUTROPHILS # (AUTO) 1.7 (2.1-6.9); NEUTROPHILS % 57.8 % (38.7-80.0); RED CELL DISTRIBUTION WIDTH 21.6 % (11.7-14.4)
[2019-08-25 06:42] LABS: PLATELET COUNT 32 x10e3/uL (140-360)
[2019-08-25 06:49] LABS: INR 1.31; PROTHROMBIN TIME 17.2 seconds (11.9-14.5)
[2019-08-25 06:54] LABS: ANION GAP 12.6 mmol/L (8-16); BLOOD UREA NITROGEN 11 mg/dL (7-26); BUN/CREATININE RATIO 11 (6-25); CARBON DIOXIDE 23 mmol/L (22-29); CHLORIDE 102 mmol/L (98-107); CREATININE, SERUM 0.96 mg/dL (0.72-1.25); EST GLOMERULAR FILTRATION RATE > 60 ML/MIN (60-); GLUCOSE 83 mg/dL (74-118); MAGNESIUM 1.7 MG/DL (1.3-2.1); POTASSIUM 3.6 mmol/L (3.5-5.1); SODIUM 134 mmol/L (136-145)
--- NOTE | 2019-08-25 06:54 | NUR ---
RECEIVED BEDSIDE SHIFT REPORT FROM OFF GOING NURSE. PATIENT IS RESTING IN BED. NO ACUTE DISTRESS NOTED. CALL LIGHT WITHIN REACH. BED IN THE LOWEST POSITION.
[2019-08-25] MEDS ORDERED: DIPHENHYDRAMINE HCL 25 MG CAP PO PRN (07:30)
[2019-08-25] MEDS ORDERED: MULTIVITAMINS- 12 INJECTION 10 ML, FOLIC ACID MDV 5 MG, THIAMINE HCL INJ 100 MG in SODI... IV SCH (07:30)
[2019-08-25] MEDS: PROPRANOLOL HCL 10 MG TAB PO SCH ×2 (08:56→16:02)
[2019-08-25] MEDS: PANTOPRAZOLE SOD 40 MG TABEC PO SCH (08:56)
[2019-08-25] MEDS: SPIRONOLACTONE 25 MG TAB PO SCH (08:56)
[2019-08-25] MEDS: LACTULOSE SYRUP 20 GM/30 ML UDC PO SCH ×3 (08:57→20:57)
[2019-08-25] MEDS: FONDAPARINUX SODIUM 2.5 MG/0.5 ML SYR SQ SCH (08:57)
[2019-08-25] MEDS: FUROSEMIDE 40 MG TAB PO SCH (08:57)
[2019-08-25 09:57] LABS: EOSINOPHILS % (MANUAL) 4 % (0-7); LYMPHOCYTES % (MANUAL) 25 % (19-48); MONOCYTES % (MANUAL) 9 % (3.4-9.0); NEUTROPHILS % (MANUAL) 60 % (40-74); PLATELET ESTIMATE MARKEDLY DECREASED; PLATELET MORPHOLOGY COMMENT NORMAL
[2019-08-25] MEDS ORDERED: TIZANIDINE HCL4 MG PO (11:28)
--- NOTE | 2019-08-25 19:06 | NUR ---
BEDSIDE SHIFT REPORT GIVEN TO ONCOMING NURSE. PATIENT IS RESTING IN BED. NO ACUTE DISTRESS NOTED. CALL LIGHT WITHIN REACH. BED IN THE LOWEST POSITION.
--- NOTE | 2019-08-25 19:35 | NUR ---
RECEIVED REPORT FROM 7AM NURSE, PATIENT USING THE RESTROOM BUT STATED HE WAS OK, WILL COME BACK.
[2019-08-25] MEDS ORDERED: HYDRALAZINE HCL 20 MG/ML VIAL IV PRN (20:30)
[2019-08-26] VITALS (10 sets, daily range): BP systolic 94–104; BP diastolic 57–86
--- NOTE | 2019-08-26 00:26 | NUR ---
PATIENT NPO STATUS DUE FOR TEST. PATIENT'S INFORMED.
--- NOTE | 2019-08-26 00:27 | NUR ---
NO SCRATCHING NOTED, NO COMPLAINTS OF ITCHING.
--- NOTE | 2019-08-26 02:14 | NUR ---
INSTRUCTED PATIENT TO CALL FOR ASSISTANCE WHEN NEEDING TO USE THE RESTROOM, PATIENTS BP LOW, WAS PREVIOUSLY MEDICATED FOR COMPLAINT OF ABDOMINAL PAIN. CALL LIGHT IN REACH. WILL CONTINUE TO MONITOR.
--- NOTE | 2019-08-26 04:15 | Progress Note ---
DATE: 08/25/2019 SUBJECTIVE: The patient is lying supine in bed, is asleep, is easily arousable. The patient has been having nausea, vomiting, unable to hold food down, upper abdominal pain, muscle cramps at times, frequent headaches. OBJECTIVE: VITAL SIGNS: Temperature 98.5, heart rate 106, blood pressure 139/88, respirations 20, oxygen saturation 99%. GENERAL: Supine. LUNGS: Clear to auscultation. Respirations unlabored. HEENT: EOMI. MMM. NECK: Supple. CARDIOVASCULAR: Regular rate and rhythm. No murmur. ABDOMEN: Bowel sounds are positive. Soft. He is tender to gentle palpation. EXTREMITIES: No clubbing, cyanosis, or edema. No signs of DVT. NEUROLOGIC: GCS 15. Nonfocal. LABORATORY DATA: Sodium 134, potassium 3.6, chloride 102, CO2 of 23, anion gap 12.6, BUN 11, creatinine 0.96, estimated GFR greater than 60, glucose 83, lactic acid 1.1, calcium 8.0, magnesium 1.7. Ammonia level 134. Alpha-fetoprotein level pending. WBC 2.98, hemoglobin 8.0, hematocrit 26.6, platelets 32, neutrophils 57.8%. PT 7.2, INR 1.31, PTT 42.9. Hepatitis C virus RNA qualitative per PCR pending. Chest x-ray completed today shows bilateral airspace opacities, most notable in the right lower lung field concerning for multifocal pneumonia. ASSESSMENT AND PLAN: 1. Acute nonocclusive main portal vein thrombosis upon arrival. Hematology following. Heparin drip will be discontinued. The patient will be placed on Eliquis 2.5 mg p.o. b.i.d. on 08/25 per discussion with thread laster. 2. Liver cirrhosis due to ETOH abuse and hepatitis C virus; positive transaminitis, elevated T bilirubin, pancytopenia, GI following. Monitor CBC results. Ultrasound ordered by GI. Hepatitis C virus RNA pending. 3. Hepatitis C virus, history of treatment with Epclusa for 12 weeks according the patient, and just finished recently. Follow up on hepatitis C virus RNA. 4. Controlled hypertension. Continue same. 5. Acute hyponatremia. Sodium 134 (131). Monitor sodium level. 6. Acute hypokalemia. Potassium level 3.6 (3.0) improved. 7. Pruritis. Resume cream from home. 8. Acute hypomagnesemia. Magnesium level today 1.7 (1.2) status post 4 g magnesium sulfate yesterday. Monitor closely. 9. Prophylaxis. Protonix and heparin drip. 10. Hyperammonemia. Ammonia level 134. Monitor. Billing code 84440. Time spent 35 minutes. Dictated by Ramo Hartley, SMALL ENGINE TECHNICIAN MD TERESITA Franco/MODL /[id number]
--- NOTE | 2019-08-26 04:39 | NUR ---
PATIENT REQUESTING FOR PAIN MEDICATION, ADMINISTERED ORDERED. PATIENT REQUESTED TO WRITE THE NEXT TIME THAT HE CAN HAVE HIS PAIN MEDICATION, INFORMED PATIENT THAT ITS THE NEXT AVAILABLE TIME, THAT WE STILL MUST GO BY THE ORDERS AND THAT HE STILL MUST CALL FOR HIS PAIN MEDICATION IF HE'S HURTING. PATIENT STATED, "ISN'T THE MEDICATION PRESCRIBED", INFORMED PATIENT THAT THE DOCTOR HAS ORDERED FOR HIM TO RECEIVE THIS MEDICATION BUT CAN ONLY BE GIVEN IF IT'S WITHIN THE HOURS THAT HE PRESCRIBED FOR HIM TO RECEIVE AND IF HIS VITALS ARE STABLE ENOUGH TO RECEIVE THE MEDICATION. INFORMED PATIENT THAT HE CAN TALK TO HIS DOCTOR ABOUT THE ORDERS IF HE'S STILL UNCLEAR ABOUT IT. INFORMED PATIENT TO CALL WHEN GETTING UP FROM THE BED DUE TO HIS BLOOD PRESSURE COULD DROP LOWER DUE TO THE MEDICATION. CALL LIGHT IN REACH. WILL CONTINUE TO MONITOR.
--- NOTE | 2019-08-26 06:02 | NUR ---
THIAMINE BAG COMPLETED AT 0530, PATIENT RESTING IN BED LOOKING AT HIS PHONE, NO DISTRESS NOTED, CALL LIGHT IN REACH. NO COMPLAINTS OF PAIN.
[2019-08-26 07:00] LABS: BASOPHILS % 0.8 % (0.0-1.0); EOSINOPHILS # (AUTO) 0.5 (0.0-0.4); EOSINOPHILS % 11.1 % (0.0-6.0); HEMATOCRIT 27.3 % (38.2-49.6); HEMOGLOBIN 8.1 g/dL (14.0-18.0); LYMPHOCYTES # (AUTO) 0.8 (1.0-3.2); LYMPHOCYTES % 16.3 % (18.0-39.1); MEAN CORPUSCULAR HEMOGLOBIN 23.8 pg (28-32); MEAN CORPUSCULAR HGB CONC 29.7 g/dL (31-35); MEAN CORPUSCULAR VOLUME 80.1 fL (81-99); MONOCYTES # (AUTO) 0.7 (0.2-0.8); MONOCYTES % 14.4 % (4.4-11.3); NEUTROPHILS # (AUTO) 2.7 (2.1-6.9); NEUTROPHILS % 57.2 % (38.7-80.0); RED BLOOD COUNT 3.41 x10e6/uL (4.3-5.7); RED CELL DISTRIBUTION WIDTH 22.4 % (11.7-14.4)
[2019-08-26 07:14] LABS: PLATELET COUNT 42 x10e3/uL (140-360)
[2019-08-26 07:15] LABS: ANION GAP 12.8 mmol/L (8-16); CALCIUM 8.4 mg/dL (8.4-10.2); CREATININE, SERUM 1.68 mg/dL (0.72-1.25); MAGNESIUM 1.5 MG/DL (1.3-2.1); POTASSIUM 3.8 mmol/L (3.5-5.1)
--- NOTE | 2019-08-26 07:32 | NUR ---
REPORT GIVEN TO AM NURSE.
[2019-08-26 07:48] LABS: CREATINE KINASE MB 0.6 ng/mL (0-5.0)
[2019-08-26] MEDS ORDERED: DIPHENHYDRAMINE HCL 25 MG CAP PO SCH ×2 (08:00→12:00)
--- NOTE | 2019-08-26 08:00 | NUR ---
RECEIVED PT RESTING AND ITCHNG. WANTING TO GO HOME.
[2019-08-26] MEDS: PANTOPRAZOLE SOD 40 MG TABEC PO SCH (08:30)
[2019-08-26] MEDS: SPIRONOLACTONE 25 MG TAB PO SCH (09:00)
[2019-08-26] MEDS: FUROSEMIDE 40 MG TAB PO SCH (09:00)
[2019-08-26] MEDS: LACTULOSE SYRUP 20 GM/30 ML UDC PO SCH ×3 (09:00→20:40)
[2019-08-26] MEDS: FONDAPARINUX SODIUM 2.5 MG/0.5 ML SYR SQ SCH ×2 (09:00→15:45)
[2019-08-26] MEDS ORDERED: MULTIVITAMINS- 12 INJECTION 10 ML, FOLIC ACID MDV 5 MG, THIAMINE HCL INJ 100 MG in SODI... IV SCH (09:00)
--- NOTE | 2019-08-26 11:24 | Diagnostic Imaging Report ---
EXAM: US ABDOMEN LIMITED DATE: 08/26/2019 7:25 AM INDICATION: Portal vein thrombus, abdominal pain COMPARISON: CT abdomen/pelvis from 08/23/2019 FINDINGS: Please note that midline structures are suboptimally evaluated secondary to prominent midline bowel gas. The pancreas is not well visualized secondary to prominent overlying bowel gas. The liver is normal in size measuring 12.9 cm in length. The hepatic parenchyma appears diffusely increased in echogenicity suggesting fatty infiltration. The liver also demonstrates a subtle nodular contour which can be seen in the setting of hepatic dysfunction/cirrhosis. No focal hepatic abnormalities are identified. Please note a detailed abdominal Doppler evaluation was not ordered/performed. Partially visualized nonocclusive thrombus is again noted with antegrade flow noted within the main portal vein at the hepatic hilum. The main portal vein measures 1.1 cm in diameter. The gallbladder is unremarkable. There is no evidence for cholelithiasis, gallbladder wall thickening, or pericholecystic fluid. There is no intra or extrahepatic biliary ductal dilatation. The common bile duct measures 4 mm. Sonographic Thomas's sign is negative. The right kidney is normal in size measuring 9.6 cm in length with normal cortical thickness/echogenicity. There is no evidence for solid renal mass, hydronephrosis, or shadowing likely calculi. The IVC and aorta are not well-visualized sonographically secondary to prominent midline bowel gas. There is a trace amount of perihepatic ascites present. IMPRESSION: 1. Sonographic findings suggestive of hepatic steatosis. 2. Nodular contour noted of the liver which can be seen in setting of hepatic dysfunction/cirrhosis. 3. Although this examination was not tailored for detailed evaluation of the abdominal vasculature, there is partially visualized nonocclusive thrombus noted within the main portal vein which was better evaluated on the prior contrast enhanced CT examination. 4. Trace perihepatic ascites. Signed by: Dr. Dao Connelly MD on 08/26/2019 11:20 AM
[2019-08-26] MEDS: LEVOFLOXACIN 250 MG TAB PO SCH (12:00)
[2019-08-26] MEDS: MIDODRINE HCL 5 MG TABLET PO SCH ×2 (12:00→17:00)
[2019-08-26] MEDS ORDERED: MIDODRINE 2.5 MG TAB PO SCH (12:00)
--- NOTE | 2019-08-26 12:49 | NUR ---
PT HAVING US ON KIDNEY AT THIS TIME. ABD US DONE THIS AM.
--- NOTE | 2019-08-26 13:03 | Consultation ---
DATE OF CONSULTATION: Renal Consultation Thank you for the consultation. HISTORY OF PRESENT ILLNESS: Mr. Cason is a pleasant 49-year-old male with past medical history significant for history of liver cirrhosis from alcoholic liver disease as well as hepatitis C, also chronic hepatic vein, portal vein thrombosis, also prior history of electrolyte abnormalities, UTIs, GERD, came into the hospital, appears to be some shortness of breath, found to have pneumonia on the chest x-ray, being admitted for treatment. On presentation, creatinine was 0.9, however, today creatinine jumped up to 1.68 from 0.96 yesterday. The patient had an episode of hypotension. The patient also received a CT scan of abdomen and pelvis with IV contrast. Currently, he is not in any acute respiratory distress. Does not complain of any swelling over his arms or legs. He does not complain of any decreased urine output. Renal consultation is asked for management of his acute kidney injury. PAST MEDICAL HISTORY: As outlined above. ALLERGIES: NO KNOWN DRUG ALLERGIES. SOCIAL HISTORY: No tobacco use. No active alcohol use at this time. FAMILY HISTORY: Noncontributory. REVIEW OF SYSTEMS: See HPI. Otherwise, all systems negative. MEDICATIONS: Have all been reviewed per chart. PHYSICAL EXAMINATION: VITAL SIGNS: Blood pressure is 98/86, afebrile, 66 pulse, 17 respirations. HEENT: No cervical lymphadenopathy. NECK: Supple without masses. No obvious JVD. Moist appearing oral mucosa. SKIN: Moist with good skin turgor. CHEST WALL: Good expansion. No chest wall tenderness. LUNGS: Clear to auscultation bilaterally. CARDIOVASCULAR: S1 and S2. No obvious gallop, rub, or murmur. ABDOMEN: Soft. Positive bowel sounds. Nontender. No organomegaly. EXTREMITIES: There is no evidence of lower extremity edema. No clubbing. No cyanosis. NEUROLOGICAL: Awake, alert, and oriented x3. Grossly nonfocal exam. LABORATORY DATA: Sodium is 136, potassium 3.8, chloride 105, bicarb 22, BUN is 15, and creatinine 1.68. Lactic acid 8.4, normal. Magnesium 1.5. Urinalysis has 21-50 wbc's, 20-50 rbc's, 1+ protein. H and H are 8.1 and 27.3. IMPRESSION AND PLAN: 1. Acute kidney injury. Suspect acute kidney injury secondary to the patient having hypoperfusion state from low blood pressure, which could be from acute onset of infection from pneumonia and that could be a component of prerenal state and hypoperfusion state in the setting of the patient having received IV contrast, and then may be ensuing contrast nephropathy. I would recommend to increase the IV fluid rate to 100 mL/hour at least for the next 24 hours. Discontinue all diuretics and all blood pressure lowering medications to allow for the blood pressure to improve, which will help improve renal perfusion. Avoid potential nephrotoxic agents at this time. Avoid any further IV dye. Avoid any MARTIN inhibitors or ARBs and nonsteroidal anti-inflammatory drugs. Repeat labs in the morning including CMP, mag, phos, CBC. We will get urine electrolytes. Also, we will get a baseline renal ultrasound to evaluate for any obstructive uropathy and we will make further recommendations. The patient also has urinary tract infection. Would empirically cover him with antibiotics, which would help treat his pneumonia as well as the urinary tract infection. We will continue to monitor closely with you and make further recommendations. 2. Hypotension. Discontinue propranolol. Discontinue spironolactone and furosemide. We will add midodrine, which will improve the blood pressure and continue gentle IV fluid hydration. 3. Urinary tract infection. Recommend to empirically cover with IV antibiotics as you already doing. We will continue to monitor closely with you and make further recommendations. Thank you once again for the consultation. We will follow the patient closely along with you and make further recommendations. Rui Hickey MD TH/MODL /[id number] cc: Donaldo Junior MD
--- NOTE | 2019-08-26 13:52 | Diagnostic Imaging Report ---
EXAM: US RENAL RETROPERITONEAL COMP DATE: 08/26/2019 12:42 PM INDICATION: Acute kidney injury COMPARISON: CT from 08/23/2019 FINDINGS: The right kidney is normal in size measuring 11.1 x 7.1 x 5.5 cm with cortical thickness of 2.6 cm. Cortical echogenicity is within normal limits. There is no evidence for solid renal mass, hydronephrosis, or shadowing calculi. The left kidney is normal in size measuring 11.7 x 6.3 x 5.2 cm with cortical thickness of 2.5 cm. The echogenicity is within normal limits. There is no evidence for solid renal mass, hydronephrosis, or shadowing calculi. The urinary bladder is only partially distended but appears grossly unremarkable. IMPRESSION: Unremarkable sonographic appearance of the kidneys. Signed by: Dr. Dao Connelly MD on 08/26/2019 1:49 PM
--- NOTE | 2019-08-26 15:00 | NUR ---
PT HAS HAD 2 BLOOD STOOLS TODAY.
--- NOTE | 2019-08-26 15:23 | NUR ---
WOUND CARE CONSULT FOR 49 YO MALE HX OFPORTAL SARAH LOPEZ 22 ON CONSERVATIVE PUP STATUS AND INTERVENTIONS AND VISCO MATTRESS LABS: WBC-4.79 HGB_8.1 GLUCOSE-88 SKIN ASSESSMENT COMPLETE PATIENT PRESENTS WITH EXCORIATED BILATERAL LOWER LEGS AND HIPS AND THIGH R/T PATIENT SCRATCHING RECOMMENDATIONS: NURSING TO CONTINUE TO MAINTAIN CONSERVATIVE PUP STATUS AND INTERVENTIONS AND VISCO_ MATTRESS NURSING TO CONTINUE TO ASSIST PATIENT OUT OF BED FOR MEALS AND MUCH TOLERATED NURSING TO CONTINUE TO ASSIST PATIENT NEEDED WITH MEALS AND NUTRITIONAL SUPPLEMENTS TO ENSURE PROPER REQUIREMENTS FOR HEALING NURSING TO CONTINUE TO OFFLOAD FEET AND HEELS NEEDED WITH PILLOW SUSPENSION WHEN IN BED NURSING TO CLEAN MULTIPLE SCRATCHES WITH WITH NORMAL SALINE DAILY AND APPLY TRIPLE ANTIBIOTIC OINT OINTMENT AND COVER ALLEVYN FOAM DRESSING TO PROTECT Addendum: 08/26/19 at 1527 by Jonathan Marx RN Amended: Links added.
[2019-08-26] MEDS ORDERED: ACETYLCYSTEINE 200 MG/1 ML 10ML VIAL PO SCH (17:00)
[2019-08-26] MEDS: ACETYLCYSTEINE 200 MG/ML 4ML VIAL PO SCH (17:00)
[2019-08-26] MEDS: DIPHENHYDRAMINE HCL 25 MG CAP PO SCH ×2 (17:00→20:40)
[2019-08-26] MEDS: MORPHINE SULFATE 2 MG/ML SYR 1ML IV PRN (17:40)
--- NOTE | 2019-08-26 18:30 | NUR ---
PT PAIN HAS IMPROVED BUT NO OTHER CHANGES AT THE TIME IN PT STATUS. Gerry BARAKAT IS AWARE OF BLOODY STOOLS TODAY
--- NOTE | 2019-08-26 19:10 | NUR ---
Patient visited in room during nursing rounds. Patient alert and oriented x3. Ambulatory in room prn. Pt has intermittent abdominal pain. On Banana bag at 100ml/hr. Multiple scratches on both legs with allevyn covering most scratches. Call bishop within reach. Will monitor closely.
[2019-08-26] MEDS ORDERED: SODIUM CHLORIDE 0.9% 1000ML 1,000 ML IV PRN (20:30)
--- NOTE | 2019-08-26 20:30 | NUR ---
Spoke with Dr. Hickey and was given order to start pt on NS at 100ml/hr to be given alternate with banana bag.
[2019-08-26 22:43] LABS: FERRITIN 27.43 ng/mL (21.81-274.66)
[2019-08-27] VITALS (9 sets, daily range): BP systolic 96–119; BP diastolic 50–74
--- NOTE | 2019-08-27 00:04 | NUR ---
Ramo Hartley (JOI) visited pt in room and talked to patient about plan of care.
[2019-08-27] MEDS: DIPHENHYDRAMINE HCL 25 MG CAP PO SCH (00:30)
[2019-08-27 00:51] LABS: BASOPHILS % 0.9 % (0.0-1.0); EOSINOPHILS # (AUTO) 0.4 (0.0-0.4); EOSINOPHILS % 11.3 % (0.0-6.0); HEMATOCRIT 24.6 % (38.2-49.6); HEMOGLOBIN 7.4 g/dL (14.0-18.0); LYMPHOCYTES # (AUTO) 0.8 (1.0-3.2); LYMPHOCYTES % 21.7 % (18.0-39.1); MEAN CORPUSCULAR HEMOGLOBIN 23.1 pg (28-32); MEAN CORPUSCULAR HGB CONC 30.1 g/dL (31-35); MONOCYTES # (AUTO) 0.5 (0.2-0.8); MONOCYTES % 15.3 % (4.4-11.3); NEUTROPHILS # (AUTO) 1.7 (2.1-6.9); NEUTROPHILS % 50.2 % (38.7-80.0); RED BLOOD COUNT 3.21 x10e6/uL (4.3-5.7); RED CELL DISTRIBUTION WIDTH 21.8 % (11.7-14.4)
[2019-08-27 00:58] LABS: MEAN CORPUSCULAR VOLUME 76.6 fL (81-99); PLATELET COUNT 43 x10e3/uL (140-360)
--- NOTE | 2019-08-27 01:00 | NUR ---
Dr. Rufus Maldonado came and saw pt in room. MD informed by nurse (Rad) that patient had bloody stools during the day of 08/26/19. MD aware and ordered STAT Amylase and Lipase and orther medication orders.
[2019-08-27] MEDS ORDERED: SODIUM CHLORIDE 0.9% 250ML 250 ML IV ONE (01:15)
[2019-08-27] MEDS ORDERED: DONNATAL/LIDOCAINE/MAALOX 30 ML SUSP PO ONE (01:15)
[2019-08-27 01:19] LABS: BILIRUBIN,URINE 1+ (NEGATIVE); CLARITY,URINE CLOUDY (CLEAR); COLOR,URINE YELLOW (YELLOW); KETONES,URINE TRACE (NEGATIVE); LEUKOCYTE ESTERASE ,URINE NEGATIVE (NEGATIVE); NITRITE,URINE NEGATIVE (NEGATIVE); PROTEIN,URINE DIPSTICK NEGATIVE (NEGATIVE)
[2019-08-27 01:26] LABS: BACTERIA,URINE FEW /HPF; EPITHELIAL CELLS,URINE FEW /LPF; RBC,URINE 21-50 /HPF (0-5)
[2019-08-27] MEDS ORDERED: OCTREOTIDE ACETATE 0.05 MG/ML AMP IV STA (01:30)
[2019-08-27] MEDS ORDERED: OCTREOTIDE ACETATE 600 MCG in SODIUM CHLORIDE 0.9% 250ML 300 ML IV SCH (01:30)
[2019-08-27] MEDS ORDERED: HYDROXYZINE HCL 25 MG TAB PO SCH (01:30)
[2019-08-27] MEDS ORDERED: DICYCLOMINE HCL 20 MG TAB PO ONE (01:30)
--- NOTE | 2019-08-27 01:30 | NUR ---
Dr. Victorina Maldonado decided to order x1 unit of PRBC for patient and repeat CBC in AM.
[2019-08-27 01:47] LABS: SODIUM,URINE 60 mmol/L
--- NOTE | 2019-08-27 02:17 | Progress Note ---
DATE: 08/26/2019 SUBJECTIVE: The patient is lying supine in bed, is asleep, is arousable when he is able to carry on a conversation, but he is very sleepy. The patient admits to having chills off and on, dizziness at times, mild cough. He states he vomited last night. He has mid abdomen pain, rated at 10 on a scale of 0 to 10. Per nursing staff, he has had 2 bloody stools today. CLERK in the room, just took his blood pressure and it was low at 96/58. OBJECTIVE: VITAL SIGNS: Earlier this morning, temperature 98.0, heart rate 66, blood pressure 98/86, respirations 17, oxygen saturation 99%. LUNGS: Clear. Diminished bases. Respirations unlabored. HEENT: EOMI. MMM. NECK: Supple. CARDIOVASCULAR: Regular rate and rhythm. No murmur. Normal saline banana bag at 100 mL an hour. ABDOMEN: Distended, soft, positive bowel sounds. Tender to gentle palpation. EXTREMITIES: No clubbing, cyanosis, or edema. No signs of DVT. INTEGUMENTARY: Scratches bilateral lower extremities with dressings clean, dry, and intact. NEUROLOGIC: GCS 14; eyes 3, verbal 5, motor 6, somnolent, will fall back to sleep if not persistently aroused. LABORATORY DATA: WBC 4.79, hemoglobin 8.1, hematocrit 27.3, platelets 42, neutrophils 57.2, neutrophils 2.7, PTT 43.9. Sodium 136, potassium 3.8, chloride 105, CO2 of 22, anion gap 12.8. BUN 15, creatinine 1.68, estimated GFR 44, glucose 88, calcium 8.4, magnesium 1.5. Iron 36, TIBC 421, percent saturation 9, transferrin 301, ferritin 27.43, vitamin B12 of 1261, folate pending. Creatine kinase 82. CK-MB 0.6, troponin I 0.006. HCV, RNA, PCR pending. Abdominal ultrasound done earlier today with findings suggestive of hepatic steatosis, nodular contour noted of the liver which can be seen in the setting of hepatic dysfunction/cirrhosis. Trace perihepatic ascites. Renal ultrasound done today shows unremarkable sonographic appearance of the kidneys. ASSESSMENT AND PLAN: 1. Acute nonocclusive main portal vein thrombosis. Upon arrival, Hematology following. Heparin drip was discontinued. Per Hematology note, the patient is to be referred to [facility] due to cirrhosis and hepatitis C. Per note, he is to continue Eliquis 2.5 mg b.i.d. for the rest of his life time and discontinue Arixtra. Currently, the patient continues to be on Arixtra 2.5 mg daily. 2. Right lower lobe community-acquired pneumonia, POA. The patient is on Levaquin IV antibiotic for pneumonia. We will add DuoNeb q.4 hours. Incentive spirometry. 3. Mucinex dextromethorphan b.i.d. 4. Liver cirrhosis due to ETOH abuse and hepatitis C virus; positive transaminitis, elevated T bilirubin, pancytopenia. GI following. Monitor CBC results. Hepatic steatosis per CT hepatitis C virus RNA pending. 5. Hepatitis C virus, history of treatment with Epclusa for 12 weeks. 6. Hypotension with past medical history of hypertension. 7. Propranolol has been discontinued as has the spironolactone and Lasix. Continue midodrine 5 mg p.o. t.i.d. 8. Acute hyponatremia. Sodium 136. Monitor. 9. Acute hypokalemia. Potassium 3.8, improved. 10. Acute hypomagnesemia. Magnesium level 1.7. Monitor. The patient had 4 g of magnesium sulfate on 08/23, due to magnesium level being 1.2. 11. Hyperammonemia. Ammonia level was 134. Monitor. 12. Prophylaxis. Protonix and anticoagulant per Hematology. Due to the patient's bloody stools, low blood pressure, lethargy, a stat CBC being drawn by the nurse for results to be called to Hematology and anticoagulant clarified. The patient may need blood transfusion. We will continue to monitor closely. Transfer to IMU or ICU if needed. Billing code [id number]. TIME SPENT: 45 minutes. Dictated by Ramo Hartley, JOI MD NYDIA FrancoP/NICOL /[id number]
[2019-08-27] MEDS: PANTOPRAZOLE 40 MG 10ML VIAL IV SCH ×2 (02:35→12:36)
[2019-08-27 02:36] LABS: AMYLASE 65 U/L (25-125); LIPASE 22 U/L (8-78)
[2019-08-27] MEDS ORDERED: OCTREOTIDE ACETATE 2 ML ONE (02:38)
[2019-08-27] MEDS ORDERED: BELLADONNA ALK/PHENOBARBITAL 5 ML UDC ONE (02:39)
[2019-08-27] MEDS ORDERED: LIDOCAINE VISC 2% SOLN 15 ML UDC ONE (02:39)
[2019-08-27] MEDS ORDERED: MAGNESIUM/ALUMINUM/SIMETHICONE 30 ML UDC ONE (02:40)
[2019-08-27] MEDS ORDERED: SODIUM CHLORIDE 0.9% 250ML 250 ML ONE ×2 (02:57→11:01)
[2019-08-27] MEDS: OCTREOTIDE ACETATE 500 MCG in SODIUM CHLORIDE 0.9% 250ML 250 ML IV SCH ×3 (03:00→23:50)
--- NOTE | 2019-08-27 03:00 | NUR ---
Paged Dr. Ibarra to report about Hbg (7.4) and that Dr. Victorina Maldonado ordered 1 unit PRBC and also to report Eliquis ordered and Arixtra D/C's by Ramo Hartley. Awaiting on MD call back.
--- NOTE | 2019-08-27 03:31 | NUR ---
Paged Dr. Victorina Maldonado via answering service ([email or web address]) to report Amylase (65) and Lipase (22) levels this morning. Awaiting on MD call back.
[2019-08-27] MEDS: ALBUTEROL/IPRATROPIUM 3 ML NEB NEB SCH ×6 (04:00→23:40)
--- NOTE | 2019-08-27 04:30 | NUR ---
Spoke with Dr. Victorina Maldonado and reported that latest Amylase (65) and Lipase (22) levels were normal. MD aware and no further orders given at this time.
[2019-08-27] MEDS ORDERED: IRON SUCROSE 100 MG in SODIUM CHLORIDE 0.9% 100 ML 100 ML IV SCH (05:00)
[2019-08-27] MEDS: MORPHINE SULFATE 2 MG/ML SYR 1ML IV PRN ×5 (05:22→20:08)
--- NOTE | 2019-08-27 07:00 | NUR ---
Patient done with 1 unit of PRBC transfusion. Pt tolerated transfusion well. No symptoms noted.
--- NOTE | 2019-08-27 07:00 | NUR ---
RECEIVED BEDSIDE SHIFT REPORT FROM OFF GOING NURSE. PATIENT IS RESTING IN BED. NO ACUTE DISTRESS NOTED. CALL LIGHT WITHIN REACH. BED IN THE LOWEST POSITION.
[2019-08-27] MEDS: DICYCLOMINE HCL 10 MG CAP PO SCH ×3 (08:17→20:10)
[2019-08-27] MEDS: BACITRACIN/POLYMYXIN 30 GM OINT TP SCH (08:17)
[2019-08-27] MEDS: LACTULOSE SYRUP 20 GM/30 ML UDC PO SCH ×3 (08:17→20:17)
[2019-08-27] MEDS: GUAIFENESIN 600MG/DEXTROMETHORPHAN 30MG TABSR PO SCH ×2 (08:17→16:13)
[2019-08-27] MEDS: HYDROXYZINE HCL 25 MG TAB PO SCH (08:17)
[2019-08-27] MEDS: APIXAB 2.5 MG TABLET PO SCH ×2 (08:17→16:13)
[2019-08-27] MEDS: ACETYLCYSTEINE 200 MG/ML 4ML VIAL PO SCH ×2 (08:17→16:13)
[2019-08-27] MEDS: MIDODRINE HCL 5 MG TABLET PO SCH ×3 (08:17→15:01)
[2019-08-27] MEDS ORDERED: MULTIVITAMINS- 12 INJECTION 10 ML, FOLIC ACID MDV 5 MG, THIAMINE HCL INJ 100 MG in SODI... IV SCH (09:00)
[2019-08-27] MEDS: IRON SUCROSE 100 MG in SODIUM CHLORIDE 0.9% 100 ML 100 ML IV SCH (09:00)
[2019-08-27 09:21] LABS: BASOPHILS % 0.7 % (0.0-1.0); EOSINOPHILS # (AUTO) 0.4 (0.0-0.4); HEMATOCRIT 29.9 % (38.2-49.6); LYMPHOCYTES # (AUTO) 0.7 (1.0-3.2); LYMPHOCYTES % 22.7 % (18.0-39.1); MEAN CORPUSCULAR HEMOGLOBIN 23.6 pg (28-32); MEAN CORPUSCULAR HGB CONC 30.1 g/dL (31-35); MEAN CORPUSCULAR VOLUME 78.3 fL (81-99); MONOCYTES # (AUTO) 0.4 (0.2-0.8); NEUTROPHILS # (AUTO) 1.5 (2.1-6.9); NEUTROPHILS % 51.6 % (38.7-80.0); RED BLOOD COUNT 3.82 x10e6/uL (4.3-5.7); RED CELL DISTRIBUTION WIDTH 22.4 % (11.7-14.4)
[2019-08-27 09:31] LABS: PLATELET COUNT 43 x10e3/uL (140-360)
--- NOTE | 2019-08-27 09:35 | NUR ---
NOTIFIED DR. MUNOZ OF PLT COUNT OF 43. WAITING TRAIN CONTROL ELECTRONIC TECHNICIAN BACK.
[2019-08-27 09:50] LABS: ANION GAP 11.8 mmol/L (8-16); CREATININE, SERUM 1.27 mg/dL (0.72-1.25); MAGNESIUM 1.2 MG/DL (1.3-2.1); POTASSIUM 3.8 mmol/L (3.5-5.1)
[2019-08-27 10:10] LABS: CALCIUM 8.1 mg/dL (8.4-10.2)
[2019-08-27] MEDS ORDERED: MAGNESIUM SULFATE 2GM/50ML 50 ML IV ONE (10:45)
[2019-08-27] MEDS: LEVOFLOXACIN 250 MG TAB PO SCH (11:00)
--- NOTE | 2019-08-27 11:19 | Progress Note ---
DATE: 08/27/2019 SUBJECTIVE: Followed for acute kidney injury. The patient's creatinine is significantly better today at 1.27 after IV fluid hydration and improvement in his blood pressure. No nausea, no vomiting, no shortness of breath. OBJECTIVE: VITAL SIGNS: Have been noted. Blood pressure is 119/71, 76 pulse, afebrile. LUNGS: Clear to auscultation bilaterally. CARDIOVASCULAR: S1, S2. No rub ABDOMEN: Soft, nontender. EXTREMITIES: No edema. LABORATORY DATA: Noted. Magnesium is 1.2. Sodium 136, potassium 3.8, BUN is 14, creatinine is 1.27. IMPRESSION AND PLAN: 1. Acute kidney injury, continues to improve. We will discontinue the IV fluid, suspected there was a component of prerenal azotemia, which is resolved now. The patient's multivitamin can be changed over to p.o. We will defer this to primary. From Renal standpoint, no further need for IV fluids. We will discontinue the IV fluids. 2. Hypertension. Blood pressure is better with midodrine. Continue oral midodrine. Continue off blood pressure lower medications for now. 3. Hypomagnesemia. We will replace with 2 g of Mag sulfate. Recheck level again in the morning. Thank you once again. Rui Hickey MD /MODL /[id number]
--- NOTE | 2019-08-27 12:10 | NUR ---
PATIENT MOVED TO ROOM 298 REQUESTED BY PREPRESS OPERATOR.
--- NOTE | 2019-08-27 19:19 | NUR ---
BEDSIDE SHIFT REPORT GIVEN TO ONCOMING NURSE. PATIENT IS RESTING IN BED. NO ACUTE DISTRESS NOTED. CALL LIGHT WITHIN REACH. BED IN THE LOWEST POSITION.
--- NOTE | 2019-08-27 19:20 | NUR ---
Patient visited in room during nursing rounds. Patient alert and oriented x3. Ambulatory in room prn. Receiving Sandostatin drip at 25.1ml/hr. Pt still has intermittent abdominal pain and will be medicated accordingly. Call bishop within reach. Will monitor pt closely.
--- NOTE | 2019-08-27 20:00 | NUR ---
Patient changed dressing on both legs. Patient refused assistance and stated he could do it on his own. Dressing clean, dry and intact.
[2019-08-28] MEDS: MORPHINE SULFATE 2 MG/ML SYR 1ML IV PRN ×6 (01:20→23:57)
[2019-08-28] MEDS: PANTOPRAZOLE 40 MG 10ML VIAL IV SCH ×2 (01:20→12:15)
[2019-08-28] MEDS: ALBUTEROL/IPRATROPIUM 3 ML NEB NEB SCH ×6 (03:05→23:20)
--- NOTE | 2019-08-28 03:30 | NUR ---
Dr. Rufus Maldonado came and visited pt in room. MD aware of pt condition per assessment. MD ordered stool studies (WBC, fecal, Ova and Para, stool culture) and CT abdomen and pelvis with oral contrast only for this morning.
[2019-08-28 05:08] VITALS: BP 101/68
[2019-08-28 06:21] LABS: BASOPHILS % 1.1 % (0.0-1.0); EOSINOPHILS # (AUTO) 0.4 (0.0-0.4); EOSINOPHILS % 14.6 % (0.0-6.0); HEMATOCRIT 28.6 % (38.2-49.6); HEMOGLOBIN 8.7 g/dL (14.0-18.0); LYMPHOCYTES # (AUTO) 0.6 (1.0-3.2); LYMPHOCYTES % 20.3 % (18.0-39.1); MEAN CORPUSCULAR HEMOGLOBIN 24.9 pg (28-32); MEAN CORPUSCULAR HGB CONC 30.4 g/dL (31-35); MEAN CORPUSCULAR VOLUME 81.7 fL (81-99); MONOCYTES # (AUTO) 0.5 (0.2-0.8); MONOCYTES % 16.4 % (4.4-11.3); NEUTROPHILS # (AUTO) 1.3 (2.1-6.9); NEUTROPHILS % 47.2 % (38.7-80.0); RED CELL DISTRIBUTION WIDTH 22.9 % (11.7-14.4)
[2019-08-28] MEDS: ACETYLCYSTEINE 200 MG/ML 4ML VIAL PO SCH (06:30)
[2019-08-28 06:41] LABS: PLATELET COUNT 44 x10e3/uL (140-360)
[2019-08-28 06:44] LABS: ALANINE AMINOTRANSFERASE 16 IU/L (0-55); ALBUMIN 2.4 g/dL (3.5-5.0); ALBUMIN/GLOBULIN RATIO 0.5 (0.8-2.0); ALKALINE PHOSPHATASE 59 IU/L (40-150); BLOOD UREA NITROGEN 13 mg/dL (7-26); BUN/CREATININE RATIO 11 (6-25); CALCIUM 7.9 mg/dL (8.4-10.2); CARBON DIOXIDE 21 mmol/L (22-29); CHLORIDE 107 mmol/L (98-107); CREATININE, SERUM 1.23 mg/dL (0.72-1.25); EST GLOMERULAR FILTRATION RATE > 60 ML/MIN (60-); GLUCOSE 101 mg/dL (74-118); MAGNESIUM 1.4 MG/DL (1.3-2.1); PHOSPHORUS 2.6 MG/DL (2.3-4.7); SODIUM 137 mmol/L (136-145)
--- NOTE | 2019-08-28 06:45 | NUR ---
Notified Dr. Ibarra of plt count of 44. Per MD patient is stable, will not see him anymore.
--- NOTE | 2019-08-28 06:45 | NUR ---
RECEIVED BEDSIDE SHIFT REPORT FROM OFF GOING NURSE. PATIENT IS RESTING IN BED. NO ACUTE DISTRESS NOTED. CALL LIGHT WITHIN REACH. BED IN THE LOWEST POSITION.
[2019-08-28 07:44] VITALS: BP 117/79
[2019-08-28] MEDS: APIXAB 2.5 MG TABLET PO SCH ×2 (08:30→16:33)
[2019-08-28] MEDS: DICYCLOMINE HCL 10 MG CAP PO SCH ×3 (08:30→20:28)
[2019-08-28] MEDS: HYDROXYZINE HCL 25 MG TAB PO SCH (08:30)
[2019-08-28] MEDS: MIDODRINE HCL 5 MG TABLET PO SCH ×3 (08:30→16:33)
[2019-08-28] MEDS: GUAIFENESIN 600MG/DEXTROMETHORPHAN 30MG TABSR PO SCH ×2 (08:30→16:33)
[2019-08-28] MEDS: IRON SUCROSE 100 MG in SODIUM CHLORIDE 0.9% 100 ML 100 ML IV SCH (08:30)
[2019-08-28 08:43] VITALS: BP 117/79
[2019-08-28] MEDS: BACITRACIN/POLYMYXIN 30 GM OINT TP SCH ×2 (09:00→20:21)
[2019-08-28] MEDS: OCTREOTIDE ACETATE 500 MCG in SODIUM CHLORIDE 0.9% 250ML 250 ML IV SCH ×3 (09:50→22:32)
--- NOTE | 2019-08-28 09:55 | NUR ---
PATIENT OFF UNIT FOR CT SCAN.
--- NOTE | 2019-08-28 10:44 | Diagnostic Imaging Report ---
EXAM: CT of the abdomen and pelvis with intravenous contrast HISTORY: ^abdominal pain ^[id number] ^1000 COMPARISON: 5 days prior TECHNIQUE: Abdomen and pelvis were scanned utilizing a multidetector helical scanner. Coronal and sagittal reformations were obtained. Scan was performed during the portal venous phase. DOSE REDUCTION: The examination was performed according to the departmental dose-optimization program, which includes automated exposure control, adjustment of the mA and/or kV according to patient size and/or use of iterative reconstruction technique. IMPRESSION: 1. No significant change compared to the exam 5 days prior. 2. Again noted is the near occlusive likely acute portal vein thrombus. In this patient with a history of hematochezia and abdominal pain, findings are concerning for bowel ischemia. Consider anticoagulation and consultation for possible TIPS placement. Additional findings: -Diffuse mesenteric edema. -Partially visualized gynecomastia. Signed by: Cash Nix MD on 08/28/2019 10:40 AM
[2019-08-28] MEDS ORDERED: IOPAMIDOL 370 MG/ML 200 ML INFUS..BTL INJ ONE (10:45)
[2019-08-28 11:19] VITALS: BP 105/73
--- NOTE | 2019-08-28 11:33 | Progress Note ---
DATE: Renal Progress Note SUBJECTIVE: Followed for acute kidney injury on possible chronic kidney disease. Creatinine continues to improve. Today's creatinine level is at 1.23. Potassium is normal at 4. The patient has no nausea, no vomiting, no shortness of breath. OBJECTIVE: VITAL SIGNS: Noted as follows: Blood pressure is 117/79, 71 pulse. The patient is afebrile. LUNGS: Clear to auscultation bilaterally. CARDIOVASCULAR: S1 and S2. No rub. ABDOMEN: Soft and nontender. EXTREMITIES: No edema. LABORATORY DATA: Creatinine 1.23, potassium is 4, phosphorus 2.7, and magnesium 1.4. IMPRESSION AND PLAN: 1. Acute kidney injury. Continues to improve from hypoperfusion state. Continue to monitor off IV fluids. 2. Hypertension/hypotension. Continue midodrine. Continue off diuretics for now. We will continue to monitor closely. 3. Hypomagnesemia, was replaced and has been corrected. Rui Hickey MD TH/MODL /[id number]
--- NOTE | 2019-08-28 11:53 | NUR ---
SPOKE WITH PT PROVIDED MUNIRA OBTAINED SIGNATURES AND WILL PUT IN CENTRAL SUPPLY BOOK
[2019-08-28] MEDS: LEVOFLOXACIN 250 MG TAB PO SCH (12:15)
[2019-08-28 16:03] VITALS: BP 104/75
--- NOTE | 2019-08-28 19:08 | NUR ---
BEDSIDE SHIFT REPORT GIVEN TO ONCOMING NURSE. PATIENT IS RESTING IN BED. NO ACUTE DISTRESS NOTED. CALL LIGHT WITHIN REACH. BED IN THE LOWEST POSITION.
--- NOTE | 2019-08-28 19:51 | NUR ---
RECEIVED REPORT FROM 7AM NURSE, PATIENT TAKING A SHOWER, WILL CONTINUE TO MONITOR. GIRLFRIEND IS PRESENT, STATING SHE'S HELPING HIM WITH HIS SHOWER BUT PATIENT TAKES A SHOWER WITHOUT ANY ASSISTANCE.
[2019-08-28 20:00] VITALS: BP 111/76
--- NOTE | 2019-08-28 20:12 | Progress Note ---
DATE: 08/27/2019 CONSULTING PHYSICIANS: 1. Rosalia Ibarra M.D. 2. Rui Hickey M.D. 3. Rufus Maldonado M.D. SUBJECTIVE: The patient continues to complain of abdominal pain, rated 8 on a scale of 0-10, generalized and radiates to the back. No vomiting yesterday or today. He still having some bloody stools, states he had two today. He was out of bed, goes to the bathroom a bit dizzy when out of bed. Currently, a bit lethargic, although he is on morphine. He does have diarrhea, but he has been on lactulose, thus it is expected. PHYSICAL EXAMINATION: VITAL SIGNS: Temperature 98.2, heart rate 76, blood pressure 119/71, respirations 18, and oxygen saturation 99% on room air. GENERAL: Supine, sleepy. LUNGS: Clear to auscultation. RESPIRATIONS: Unlabored. HEENT: EOMI. NECK: Supple. CARDIOVASCULAR: Regular rate and rhythm. No murmur. ABDOMEN: Bowel sounds positive. Soft. He is tender to gentle palpation. EXTREMITIES: No clubbing, cyanosis, or marked swelling. No signs of DVT. NEUROLOGIC: GCS 14, eyes 3, verbal 5, motor 6, lethargic, nonfocal. LABORATORY DATA: WBCs 2.99, hemoglobin 9, hematocrit 29.9, and platelets 43. Sodium 136, potassium 3.8, chloride 109, CO2 of 19, anion gap 11.8, BUN 14, creatinine 1.27, GFR 60, glucose 113, calcium 8.1, and magnesium 1.2. C-reactive protein 3. Amylase 65 and lipase 22. Yesterday, iron 36, TIBC 42%, saturation 9, transferrin 301, ferritin 27.43, vitamin B12 of 1261, folate greater than 40, PTT 41.8. Urinalysis with cloudy urine, trace amount of ketones, 2+ blood, 1+ bilirubin, rbc's 21-50, wbc's 6-10. Urine creatinine 228.3. No new imaging studies. ASSESSMENT AND PLAN: 1. Acute nonocclusive main portal vein thrombosis upon arrival. Hematology following, Arixtra has been switched to Eliquis 2.5 mg p.o. b.i.d. 2. Right lower lobe CAP, POA. Continue Levaquin and DuoNebs. 3. Liver cirrhosis due to EtOH abuse and hepatitis C virus; positive transaminitis, elevated T bilirubin, pancytopenia. GI following. Continue to monitor CBC results. Hemoglobin 7.4. The patient n.p.o. Dr. Maldonado at bedside. Octreotide drip had been started about 03:00 a.m. STAT CBC ordered to ensure hemoglobin, does not drop significantly. Venofer will be ordered for iron deficiency. 4. Hepatitis C virus, history of treatment with Epclusa for 12 weeks according to the patient, recently finished. 5. Hypotension/hypertension. Continue midodrine. 6. Acute hypomagnesemia. Magnesium level 1.4 (1.2). Magnesium sulfate 2 g IV once ordered today by Nephrology, follow magnesium level. 7. Hyperammonemia. Ammonia level 119 (134), improving. Monitor. This patient has prolonged PTT, low hemoglobin level and is on anticoagulant. We will move the patient from all the way to end of the patricio to closer to the nurses station. The case discussed with Dr. Maldonado. We will get CT scan of the abdomen and pelvis in the morning. BILLING CODE: [id number]. TIME SPENT: Thirty-five minutes. Dictated by Ramo Hartley NP MD NYDIA FrancoP/MODL /[id number]
[2019-08-28] MEDS: ONDANSETRON HCL INJ 2MG/ML 2ML 2 MG/ML VIAL IV PRN (20:56)
--- NOTE | 2019-08-28 21:17 | Progress Note ---
DATE: 08/28/2019 SUBJECTIVE: The patient is lying supine in bed. He states he feels much better today than he did yesterday, is much more awake and alert. He remains n.p.o. He had his CT of the abdomen and pelvis this morning. Lactulose has been stopped as he continues to have bleeding with his stools, in order to decrease diarrhea. Rates his abdominal pain 5 on a scale of 0-10. Denies vomiting or headache. He does have chills, dizziness, bloody stools, mild hematuria. PHYSICAL EXAMINATION: VITAL SIGNS: Temperature 97.8, heart rate 71, blood pressure 117/79, respirations 20, oxygen saturation 99%. LUNGS: Clear to auscultation. Respirations unlabored. HEENT: EOMI. MMM. NECK: Supple. CARDIOVASCULAR: Regular rate and rhythm. No murmur. ABDOMEN: Bowel sounds positive. Soft, tender. No guarding. EXTREMITIES: No edema, cyanosis, or clubbing. No signs of DVT. NEUROLOGIC: GCS 15. Nonfocal. LABORATORY DATA: Sodium 137, potassium 4.0, chloride 107, CO2 21, BUN 13, creatinine 1.23, estimated GFR greater than 60, glucose 101, calcium 7.9, phosphorus 2.6, magnesium 1.4, total bilirubin 2.5, AST 47, ALT 16, alkaline phosphatase 59, total protein 7.2, albumin 2.4, PTT 43.5. RADIOLOGY: CT scan of the abdomen showed no significant change compared to the exam 5 days prior. He still has near-occlusive loculated acute portal vein thrombus. Findings are concerning for bowel ischemia. Per interpreting radiologist consider anticoagulation and consultation for possible TIPS placement. Diffuse mesenteric edema. ASSESSMENT AND PLAN: 1. Acute nonocclusive main portal vein thrombosis. Hematology has signed off. Eliquis 2.5 mg p.o. b.i.d. likely for his lifetime. 2. Right lower lobe community-acquired pneumonia, POA, Levaquin, DuoNebs. 3. Liver cirrhosis due to ETOH abuse and hepatitis C virus. Continue to monitor transaminitis, elevated T bilirubin, pancytopenia, and iron deficiency. 4. Hepatitis C virus, history of treatment with for Epclusa for 12 weeks. 5. Hypotension/hypertension. Continue midodrine. 6. Acute hypomagnesemia. Magnesium level 1.4 (1.2). Defer to Nephrology. 7. Hyperammonemia. Ammonia level 119 (134) monitor. Billing code: [id number]. Time spent 35 minutes. Dictated by Ramo Hartley, VENETIAN BLIND WASHER MD TERESITA Franco/MODL /[id number]
[2019-08-28] MEDS ORDERED: PHYTONADIONE 10 MG/ML AMP IV ONE (22:15)
[2019-08-28] MEDS ORDERED: PHYTONADIONE 10MG/ML 20 MG in SODIUM CHLORIDE 0.9% 100 ML 100 ML IV ONE (22:30)
[2019-08-28] MEDS ORDERED: PHYTONADIONE 10MG/ML 2 ML ONE (22:48)
[2019-08-28] MEDS ORDERED: SODIUM CHLORIDE 0.9% 100 ML ONE (22:49)
[2019-08-29] VITALS (10 sets, daily range): BP systolic 100–121; BP diastolic 59–103
[2019-08-29] MEDS: ALBUTEROL/IPRATROPIUM 3 ML NEB NEB SCH ×6 (02:40→23:15)
[2019-08-29] MEDS: PANTOPRAZOLE 40 MG 10ML VIAL IV SCH ×2 (03:25→13:15)
[2019-08-29] MEDS: MORPHINE SULFATE 2 MG/ML SYR 1ML IV PRN ×4 (04:00→15:10)
[2019-08-29] MEDS: ONDANSETRON HCL INJ 2MG/ML 2ML 2 MG/ML VIAL IV PRN (04:01)
[2019-08-29 06:09] LABS: EOSINOPHILS # (AUTO) 0.3 (0.0-0.4); EOSINOPHILS % 11.4 % (0.0-6.0); HEMOGLOBIN 8.3 g/dL (14.0-18.0); LYMPHOCYTES # (AUTO) 0.6 (1.0-3.2); LYMPHOCYTES % 19.4 % (18.0-39.1); MEAN CORPUSCULAR HEMOGLOBIN 25.2 pg (28-32); MEAN CORPUSCULAR HGB CONC 30.7 g/dL (31-35); MEAN CORPUSCULAR VOLUME 82.1 fL (81-99); MONOCYTES # (AUTO) 0.5 (0.2-0.8); MONOCYTES % 16.3 % (4.4-11.3); NEUTROPHILS # (AUTO) 1.5 (2.1-6.9); NEUTROPHILS % 51.2 % (38.7-80.0); RED BLOOD COUNT 3.29 x10e6/uL (4.3-5.7); RED CELL DISTRIBUTION WIDTH 23.7 % (11.7-14.4)
[2019-08-29 06:22] LABS: PLATELET COUNT 41 x10e3/uL (140-360)
[2019-08-29 06:36] LABS: ANION GAP 11.2 mmol/L (8-16); BLOOD UREA NITROGEN 12 mg/dL (7-26); BUN/CREATININE RATIO 11 (6-25); CALCIUM 8.1 mg/dL (8.4-10.2); CARBON DIOXIDE 21 mmol/L (22-29); CHLORIDE 107 mmol/L (98-107); CREATININE, SERUM 1.07 mg/dL (0.72-1.25); EST GLOMERULAR FILTRATION RATE > 60 ML/MIN (60-); GLUCOSE 94 mg/dL (74-118); POTASSIUM 4.2 mmol/L (3.5-5.1); SODIUM 135 mmol/L (136-145)
--- NOTE | 2019-08-29 07:17 | NUR ---
REPORT GIVEN TO AM NURSE.
--- NOTE | 2019-08-29 07:30 | NUR ---
PATIENT SITTING UP IN BED RECEIVING NEB TREATMENT, NO DISTRESS NOTED. C/O PAIN AND WAS MEDICATED ORDERED. CALL LIGHT AT REACH.
[2019-08-29] MEDS: MIDODRINE HCL 5 MG TABLET PO SCH ×3 (08:31→16:30)
[2019-08-29] MEDS: HYDROXYZINE HCL 25 MG TAB PO SCH (09:09)
[2019-08-29] MEDS: DICYCLOMINE HCL 10 MG CAP PO SCH ×3 (09:10→20:18)
[2019-08-29] MEDS: APIXAB 2.5 MG TABLET PO SCH ×2 (09:10→17:30)
[2019-08-29] MEDS: GUAIFENESIN 600MG/DEXTROMETHORPHAN 30MG TABSR PO SCH ×2 (09:10→17:30)
[2019-08-29] MEDS: IRON SUCROSE 100 MG in SODIUM CHLORIDE 0.9% 100 ML 100 ML IV SCH (10:13)
--- NOTE | 2019-08-29 11:57 | NUR ---
PATIENT NOTED WITH B/P OF 121/103; HE STATED THAT HE WAS IN PAIN. MEDICATED ORDERED. B/P RECHECKED WITH THE READING OF 109/71.
[2019-08-29] MEDS: LEVOFLOXACIN 250 MG TAB PO SCH (12:03)
[2019-08-29] MEDS ORDERED: ELIQUIS2.5 MG PO (12:22)
[2019-08-29] MEDS ORDERED: DICYCLOMINE HCL10 MG PO (12:22)
[2019-08-29] MEDS ORDERED: ULTRAM 50MG50 MG PO (12:22)
[2019-08-29] MEDS ORDERED: PANTOPRAZOLE SO40 MG PO (12:22)
[2019-08-29] MEDS ORDERED: TIZANIDINE HCL4 MG PO (12:22)
[2019-08-29] MEDS ORDERED: FERROUS SULFAT325 MG PO (12:22)
[2019-08-29] MEDS ORDERED: MIDODRINE HCL5 MG PO (12:22)
[2019-08-29] MEDS ORDERED: ASCORBIC ACID500 MG PO (12:22)
[2019-08-29] MEDS ORDERED: DOCUSATE SODIU100 MG PO (12:22)
--- NOTE | 2019-08-29 15:37 | NUR ---
E COMMERCE MERCHANT IN TO SEE PATIENT, NEW ORDER RECEIVED.
--- NOTE | 2019-08-29 15:58 | NUR ---
Nutrition Screen Note RD Recommendation for Physician: - Continue Low Sodium diet Plan of Care: RD following, monitoring for tolerance and adequacy Nutrition reason for involvement: LOS Primary Diagnose(s): portal vein thrombosis, pancytopenia PMH: liver cirrhosis due to ETOH abuse, Hepatitis C, HTN, GERD Ht: 69 in Wt: 229.31 lb BMI: 33.9 kg/m2 IBW: [address] Assessment: (08/28) 49 YOM admitted for portal vein thrombosis and pancytopenia. Pt seen today for LOS. Pt sleeping at time of visit, family at bedside provided hx. No poor intake or wt loss reported, family member brought fruit as pt "doesn't like to eat rice or vegetables." Noted 75-100% intake per chart. No N/V currently, noted bloody diarrhea yesterday and lactulose stopped. Pt appears well nourished. Per MD notes abd CT concerning for bowel ischemia, possible TIPS procedure. Chart reviewed. Labs and meds reviewed. Will continue to monitor. Current Diet: low sodium Malnutrition Evaluation (08/29/19) The patient does not meet criteria for a specified degree of malnutrition at this time. Will re-evaluate at follow-up as appropriate. Diet Education Needs Assessment: Diet education indicated, not appropriate at this time- pt sleeping. Diet tolerance: tolerating po Nutrition Care Level: low Signed: Kandace Childers RD, LD, [facility]
[2019-08-29] MEDS: FUROSEMIDE 40 MG TAB PO SCH (17:55)
--- NOTE | 2019-08-29 18:02 | NUR ---
SPOKE WITH DR LEVIN WHO WAS CONSULTED FOR THE PATIENT. WILL SEE PATIENT IN THE MORNING.
--- NOTE | 2019-08-29 18:41 | Progress Note ---
DATE: 08/29/2019 Renal Progress Note SUBJECTIVE: Followed for acute kidney injury on probable chronic kidney disease stage 2. Acute kidney injury likely secondary to prerenal azotemia, which is resolving now. Creatinine is down to 1.07. The patient has no nausea, no vomiting, no shortness of breath. OBJECTIVE: VITAL SIGNS: Have been noted. Blood pressure is 117/67, 72 pulse, afebrile. LUNGS: Clear to auscultation bilaterally. CARDIOVASCULAR: S1, S2. No rubs. ABDOMEN: Soft and nontender. EXTREMITIES: No edema. LABS: Sodium 135, potassium 4.2, chloride 107, BUN is 12, creatinine is 1.07. H and H are 8.3 and 27.0. IMPRESSION AND PLAN: 1. Acute kidney injury, largely resolving now. The patient is off IV fluids. We will continue to monitor closely and make further recommendations. 2. Hypertension. Blood pressure is now within range. The patient has been on low-dose midodrine. The patient is not on any blood pressure lowering medications. 3. History of cirrhosis. The patient may be able to get back on his furosemide p.o. as well as his spironolactone slowly. We will introduce the furosemide 40 mg once a day now and then monitor for improvement in his volume status.. Rui Hickey MD /MODL /[id number] cc: Donaldo Junior MD
[2019-08-29] MEDS: OCTREOTIDE ACETATE 500 MCG in SODIUM CHLORIDE 0.9% 250ML 250 ML IV SCH (18:43)
--- NOTE | 2019-08-29 19:11 | NUR ---
BEDSIDE REPORT GIVEN TO ON COMING NURSE.
--- NOTE | 2019-08-29 19:15 | NUR ---
Received patient awake, not in distress, call light within easy reach, advised to call anytime when needed. Will continue to monitor patient
[2019-08-29] MEDS: TRAMADOL HCL 50 MG TAB PO PRN (20:18)
[2019-08-29] MEDS: BACITRACIN/POLYMYXIN 30 GM OINT TP SCH (20:26)
[2019-08-30] VITALS (8 sets, daily range): BP systolic 92–110; BP diastolic 55–70
[2019-08-30] MEDS: PANTOPRAZOLE 40 MG 10ML VIAL IV SCH ×2 (00:12→13:09)
[2019-08-30] MEDS: ALBUTEROL/IPRATROPIUM 3 ML NEB NEB SCH ×5 (00:35→20:45)
[2019-08-30] MEDS: OCTREOTIDE ACETATE 500 MCG in SODIUM CHLORIDE 0.9% 250ML 250 ML IV SCH ×3 (03:18→23:09)
[2019-08-30] MEDS: MORPHINE SULFATE 2 MG/ML SYR 1ML IV PRN ×2 (05:23→14:00)
[2019-08-30 06:48] LABS: BASOPHILS % 1.6 % (0.0-1.0); EOSINOPHILS # (AUTO) 0.3 (0.0-0.4); EOSINOPHILS % 12.1 % (0.0-6.0); HEMATOCRIT 27.9 % (38.2-49.6); HEMOGLOBIN 8.3 g/dL (14.0-18.0); LYMPHOCYTES # (AUTO) 0.4 (1.0-3.2); LYMPHOCYTES % 16.6 % (18.0-39.1); MEAN CORPUSCULAR HEMOGLOBIN 23.6 pg (28-32); MEAN CORPUSCULAR HGB CONC 29.7 g/dL (31-35); MEAN CORPUSCULAR VOLUME 79.3 fL (81-99); MONOCYTES # (AUTO) 0.4 (0.2-0.8); MONOCYTES % 17.8 % (4.4-11.3); NEUTROPHILS # (AUTO) 1.3 (2.1-6.9); NEUTROPHILS % 51.5 % (38.7-80.0); RED BLOOD COUNT 3.52 x10e6/uL (4.3-5.7); RED CELL DISTRIBUTION WIDTH 23.9 % (11.7-14.4)
--- NOTE | 2019-08-30 06:48 | NUR ---
walking rounds done with beatriz RN, call light within easy reach
[2019-08-30 06:59] LABS: PLATELET COUNT 41 x10e3/uL (140-360)
--- NOTE | 2019-08-30 06:59 | NUR ---
Received call from the lab, patient's platelet count was 41, communicated to dayshift RN, will continue to monitor
[2019-08-30 07:10] LABS: ALANINE AMINOTRANSFERASE 16 IU/L (0-55); ALBUMIN 2.5 g/dL (3.5-5.0); ALBUMIN/GLOBULIN RATIO 0.5 (0.8-2.0); ALKALINE PHOSPHATASE 53 IU/L (40-150); BLOOD UREA NITROGEN 10 mg/dL (7-26); BUN/CREATININE RATIO 10 (6-25); CALCIUM 8.1 mg/dL (8.4-10.2); CARBON DIOXIDE 27 mmol/L (22-29); CHLORIDE 103 mmol/L (98-107); CREATININE, SERUM 1.05 mg/dL (0.72-1.25); EST GLOMERULAR FILTRATION RATE > 60 ML/MIN (60-); GLUCOSE 109 mg/dL (74-118); MAGNESIUM 1.2 MG/DL (1.3-2.1); SODIUM 136 mmol/L (136-145)
--- NOTE | 2019-08-30 07:18 | NUR ---
PATIENT IN BED RESTING WITH NO S/S OF DISTRESS. MULTIPLE WOUNDS AND SCRATCHES ALL OVER THE BODY. BED IN LOWER POSITION, CALL LIGHT AT REACH.
[2019-08-30] MEDS: MIDODRINE HCL 5 MG TABLET PO SCH ×3 (08:00→16:00)
[2019-08-30 08:40] LABS: ANISOCYTOSIS MODERATE; HYPOCHROMASIA MODERATE
[2019-08-30 08:41] LABS: ELLIPTOCYTE, RBC SLIGHT; MICROCYTOSIS SLIGHT; OVALOCYTES FEW; PLATELET ESTIMATE MARKEDLY DECREASED; PLATELET MORPHOLOGY COMMENT NORMAL; RBC MORPHOLOGY COMMENT ABNORMAL
[2019-08-30] MEDS: APIXAB 2.5 MG TABLET PO SCH ×2 (09:17→17:04)
[2019-08-30] MEDS: GUAIFENESIN 600MG/DEXTROMETHORPHAN 30MG TABSR PO SCH ×2 (09:17→17:04)
[2019-08-30] MEDS: IRON SUCROSE 100 MG in SODIUM CHLORIDE 0.9% 100 ML 100 ML IV SCH (09:17)
[2019-08-30] MEDS: HYDROXYZINE HCL 25 MG TAB PO SCH (09:17)
[2019-08-30] MEDS: DICYCLOMINE HCL 10 MG CAP PO SCH ×3 (09:17→20:45)
[2019-08-30] MEDS: FUROSEMIDE 40 MG TAB PO SCH (09:17)
[2019-08-30] MEDS ORDERED: MAGNESIUM SULFATE 2GM/50ML 50 ML IV ONE (11:00)
--- NOTE | 2019-08-30 11:03 | Progress Note ---
DATE: 08/30/2019 Renal Progress Note SUBJECTIVE: The patient is followed for acute kidney injury on chronic kidney disease stage 2. The patient's kidney function continues to improve. Creatinine is down to 1.05. I started the patient's furosemide yesterday. The patient's sodium is better, appears slightly less fluid overloaded. No nausea. No vomiting. No shortness of breath. OBJECTIVE: VITAL SIGNS: Blood pressure is in the high 90s to low 100s over 50s, pulse 71, afebrile. LUNGS: Clear to auscultation bilaterally. CARDIOVASCULAR: S1 and S2. No rub. ABDOMEN: Soft, nontender. EXTREMITIES: No edema. LABORATORY DATA: Potassium 4.0, creatinine 1.05, sodium 136, magnesium 1.2. IMPRESSION AND PLAN: 1. Acute kidney injury, resolved, off IV fluids. 2. Chronic kidney disease stage 2, likely at baseline has chronic kidney disease stage 2 from his chronic medical conditions. We will continue to follow outpatient. 3. History of edema/cirrhosis. Continue furosemide. For now, we would not give spironolactone since that can drop the patient's blood pressure. 4. Hypertension/hypotension. Leave off blood pressure lowering medications including propranolol. We will continue with midodrine 5 mg 3 times a day. We would recommend discharge on midodrine also. 5. Hypomagnesemia. We will replace with 2 to 3 g of magnesium sulfate. Rui Hickey MD TH/MODL /[id number]
--- NOTE | 2019-08-30 11:51 | NUR ---
MD IN TO SEE PATIENT, NEW ORDER RECEIVED.
[2019-08-30] MEDS: LEVOFLOXACIN 250 MG TAB PO SCH (12:22)
--- NOTE | 2019-08-30 15:12 | NUR ---
PATIENT SITTING UP IN BED RECEIVING NEB TREATMENT. CALL LIGHT AT REACH.
--- NOTE | 2019-08-30 19:50 | NUR ---
Resumed care of patient. Patient awake and resting in bed, no s/s of distress at this time. Bed locked and in lowest position, side rails up x3, call light placed within reach. Patient instructed to call for assistance if needed, verbalized understanding. Will continue to monitor.
[2019-08-30] MEDS: BACITRACIN/POLYMYXIN 30 GM OINT TP SCH (20:45)
--- NOTE | 2019-08-30 21:06 | Consultation ---
DATE OF CONSULTATION: 08/30/2019 CHIEF COMPLAINT: Abdominal pain. HISTORY OF PRESENT ILLNESS: This patient is a 49-year-old male with diagnosis of portal vein thrombosis and abdominal pain with some loose stool. He denies hematemesis or melena, fever or chills. PAST MEDICAL HISTORY: Significant for liver cirrhosis, hepatitis C, alcohol abuse, and portal vein thrombosis. SOCIAL HABITS: He denied current use of alcohol or smoking. ALLERGIES: HE HAS NO DRUG ALLERGIES. REVIEW OF SYSTEMS: He denies chest pain or shortness of breath. PHYSICAL EXAMINATION: VITAL SIGNS: Stable. He is afebrile. GENERAL: He is awake, alert, in moderate discomfort. HEENT: Sclerae are nonicteric. NECK: Supple. LUNGS: Clear. HEART: Regular rate and rhythm. ABDOMEN: Mildly distended with some guarding in the periumbilical region with no rebound. EXTREMITIES: No cyanosis or edema. LABORATORY DATA: White cell count is 2.4, hemoglobin of 8, and platelets count of 41. Creatinine 1.0 with liver function tests, bilirubin 1.8, alkaline phosphatase 53. INR is 1.3 with PT of 17. CT of the abdomen done 2 days ago revealed near occlusive portal vein thrombosis. There is concern for bowel ischemia. There is mesenteric edema. ASSESSMENT: Abdominal pain in the patient, who tolerated diet partially with some loose stool. There is no clinical evidence of jessica bowel ischemia. PLAN: Diet as tolerated. We will follow the patient closely with you. MD YOANDY Chavarria/KEYONA /[id number]
[2019-08-30] MEDS: ACETAMINOPHEN 325 MG TAB PO PRN (23:06)
[2019-08-31] VITALS (8 sets, daily range): BP systolic 92–116; BP diastolic 52–70
[2019-08-31] MEDS: PANTOPRAZOLE 40 MG 10ML VIAL IV SCH ×2 (00:46→12:17)
--- NOTE | 2019-08-31 01:02 | NUR ---
Dr. Victorina Maldonado here to see patient. Received orders to keep patient on 2 gram sodium diet.
[2019-08-31] MEDS: ONDANSETRON HCL INJ 2MG/ML 2ML 2 MG/ML VIAL IV PRN (01:59)
[2019-08-31] MEDS: MORPHINE SULFATE 2 MG/ML SYR 1ML IV PRN (01:59)
[2019-08-31] MEDS: ALBUTEROL/IPRATROPIUM 3 ML NEB NEB SCH ×6 (03:25→23:50)
[2019-08-31] MEDS: ACETAMINOPHEN 325 MG TAB PO PRN ×3 (04:24→23:29)
[2019-08-31 06:16] LABS: BASOPHILS % 1.1 % (0.0-1.0); EOSINOPHILS # (AUTO) 0.1 (0.0-0.4); EOSINOPHILS % 2.7 % (0.0-6.0); HEMATOCRIT 27.6 % (38.2-49.6); HEMOGLOBIN 8.3 g/dL (14.0-18.0); LYMPHOCYTES # (AUTO) 0.3 (1.0-3.2); LYMPHOCYTES % 18.2 % (18.0-39.1); MEAN CORPUSCULAR HEMOGLOBIN 23.7 pg (28-32); MEAN CORPUSCULAR HGB CONC 30.1 g/dL (31-35); MEAN CORPUSCULAR VOLUME 78.9 fL (81-99); MONOCYTES # (AUTO) 0.3 (0.2-0.8); NEUTROPHILS # (AUTO) 1.1 (2.1-6.9); NEUTROPHILS % 60.9 % (38.7-80.0); RED CELL DISTRIBUTION WIDTH 25.3 % (11.7-14.4)
[2019-08-31 06:21] LABS: PLATELET COUNT 38 x10e3/uL (140-360)
[2019-08-31 06:36] LABS: ALBUMIN 2.5 g/dL (3.5-5.0); ALBUMIN/GLOBULIN RATIO 0.5 (0.8-2.0); ANION GAP 8.8 mmol/L (8-16); CALCIUM 8.5 mg/dL (8.4-10.2); CREATININE, SERUM 1.27 mg/dL (0.72-1.25); POTASSIUM 3.8 mmol/L (3.5-5.1)
--- NOTE | 2019-08-31 06:55 | NUR ---
Bedside report given to oncoming nurse. Patient resting in bed, respirations even and unlabored, no s/s of distress at this time.
--- NOTE | 2019-08-31 08:35 | NUR ---
Spoke with Dr. Morris to report Critical WBC. No new orders received.
[2019-08-31] MEDS: OCTREOTIDE ACETATE 500 MCG in SODIUM CHLORIDE 0.9% 250ML 250 ML IV SCH ×2 (08:40→20:11)
[2019-08-31] MEDS: MIDODRINE HCL 5 MG TABLET PO SCH ×3 (08:40→16:52)
[2019-08-31] MEDS: IRON SUCROSE 100 MG in SODIUM CHLORIDE 0.9% 100 ML 100 ML IV SCH (08:40)
[2019-08-31] MEDS: DICYCLOMINE HCL 10 MG CAP PO SCH ×3 (08:41→20:11)
[2019-08-31] MEDS: HYDROXYZINE HCL 25 MG TAB PO SCH (08:41)
[2019-08-31] MEDS: APIXAB 2.5 MG TABLET PO SCH ×2 (08:41→16:52)
[2019-08-31] MEDS: GUAIFENESIN 600MG/DEXTROMETHORPHAN 30MG TABSR PO SCH ×2 (08:41→16:52)
[2019-08-31] MEDS: FUROSEMIDE 40 MG TAB PO SCH (08:41)
[2019-08-31] MEDS: LEVOFLOXACIN 250 MG TAB PO SCH (12:17)
--- NOTE | 2019-08-31 13:43 | Progress Note ---
DATE: 08/31/2019 Renal Progress Note SUBJECTIVE: Followed for acute kidney injury on chronic kidney disease stage 2 to stage 3. The patient's creatinine is variable based on the patient's blood pressures. Today, creatinine is slightly elevated at 1.27, likely at baseline. Does have CKD stage 2. No nausea, no vomiting, no shortness of breath today. OBJECTIVE: VITAL SIGNS: Vital signs are noted. Blood pressure is 104/62, 80 pulse, 17 respirations. The patient also has had a fever spike of 100.6, T-max. He may be developing an ongoing infection. LUNGS: Clear to auscultation bilaterally. CARDIOVASCULAR: S1, S2. No rub. ABDOMEN: Soft, nontender. EXTREMITIES: No edema. LABORATORY DATA: Sodium is 137, potassium 3.8, chloride 102, bicarb 30, BUN 8, creatinine is 1.3, and calcium is 8.5. Hematology; white count has dropped to 1.9, H and H 8.3 and 27.6, and platelets of 38. IMPRESSION AND PLAN: 1. Acute kidney injury on probable chronic kidney disease stage 2. Acute kidney injury is likely secondary to the patient's ongoing infection and previously decreased renal perfusion from prerenal state. Continue current medications. We would continue with the midodrine to help support his blood pressure. The patient is getting empiric antibiotics. We will continue to monitor closely. 2. Hypotension. Continue midodrine to support his blood pressure, which will help improve renal perfusion. 3. History of edema. We will decrease Lasix dose to 20 mg daily. Thank you once again. Rui Hickey MD TH/MODL /[id number]
[2019-08-31] MEDS: TRAMADOL HCL 50 MG TAB PO PRN (13:50)
--- NOTE | 2019-08-31 18:55 | NUR ---
Resumed care of patient. Patient resting in bed, respirations even and unlabored, no s/s of distress at this time. Bed locked and in lowest position, side rails up x3, call light placed within reach. All safety measures in place. Will continue to monitor.
[2019-08-31] MEDS: BACITRACIN/POLYMYXIN 30 GM OINT TP SCH (20:11)
[2019-09-01] VITALS (8 sets, daily range): BP systolic 92–118; BP diastolic 58–68
--- NOTE | 2019-09-01 00:01 | NUR ---
Dr. Victorina Maldonado here to see patient. Informed MD that patient has not had bowel movement and has been febrile. Received orders for lactulose 20 mg BID and urinalysis.
--- NOTE | 2019-09-01 00:07 | NUR ---
Received orders from Dr. Victorina Maldonado for chest x-ray in the morning.
[2019-09-01] MEDS: PANTOPRAZOLE 40 MG 10ML VIAL IV SCH ×2 (00:57→16:00)
[2019-09-01] MEDS ORDERED: MORPHINE SULFATE 2 MG/ML SYR 1ML IV PRN (02:00)
[2019-09-01] MEDS: ALBUTEROL/IPRATROPIUM 3 ML NEB NEB SCH ×6 (03:40→23:00)
[2019-09-01] MEDS: OCTREOTIDE ACETATE 500 MCG in SODIUM CHLORIDE 0.9% 250ML 250 ML IV SCH ×3 (06:11→22:40)
--- NOTE | 2019-09-01 06:15 | NUR ---
Urine and stool samples obtained and sent to lab.
[2019-09-01 06:27] LABS: CLARITY,URINE CLOUDY (CLEAR); COLOR,URINE YELLOW (YELLOW); LEUKOCYTE ESTERASE ,URINE NEGATIVE (NEGATIVE); NITRITE,URINE NEGATIVE (NEGATIVE); PROTEIN,URINE DIPSTICK 1+ (NEGATIVE)
[2019-09-01 06:28] LABS: BILIRUBIN,URINE SMALL (NEGATIVE); KETONES,URINE NEGATIVE (NEGATIVE); URINE UROBILINOGEN 2 mg/dL (0.2 - 1)
[2019-09-01 06:36] LABS: BASOPHILS % 0.5 % (0.0-1.0); EOSINOPHILS # (AUTO) 0.1 (0.0-0.4); EOSINOPHILS % 5.5 % (0.0-6.0); HEMATOCRIT 27.5 % (38.2-49.6); HEMOGLOBIN 8.4 g/dL (14.0-18.0); LYMPHOCYTES # (AUTO) 0.4 (1.0-3.2); LYMPHOCYTES % 17.4 % (18.0-39.1); MEAN CORPUSCULAR HEMOGLOBIN 24.3 pg (28-32); MEAN CORPUSCULAR HGB CONC 30.5 g/dL (31-35); MEAN CORPUSCULAR VOLUME 79.5 fL (81-99); MONOCYTES # (AUTO) 0.5 (0.2-0.8); MONOCYTES % 24.4 % (4.4-11.3); NEUTROPHILS % 51.2 % (38.7-80.0); RED BLOOD COUNT 3.46 x10e6/uL (4.3-5.7); RED CELL DISTRIBUTION WIDTH 26.6 % (11.7-14.4)
[2019-09-01 06:42] LABS: PLATELET COUNT 38 x10e3/uL (140-360)
[2019-09-01 06:47] LABS: RBC,URINE >50 /HPF (0-5); WBC,URINE (MAN) >50 /HPF (0-5)
[2019-09-01 06:48] LABS: BACTERIA,URINE MODERATE /HPF
[2019-09-01 06:49] LABS: EPITHELIAL CELLS,URINE RARE /LPF
--- NOTE | 2019-09-01 06:50 | NUR ---
Report given to oncoming nurse. Patient resting in bed, respirations even and unlabored, no s/s of distress at this time. All safety measures in place.
[2019-09-01 06:54] LABS: ALANINE AMINOTRANSFERASE 14 IU/L (0-55); ALBUMIN 2.3 g/dL (3.5-5.0); ALBUMIN/GLOBULIN RATIO 0.5 (0.8-2.0); ALKALINE PHOSPHATASE 46 IU/L (40-150); ANION GAP 9.4 mmol/L (8-16); BLOOD UREA NITROGEN 10 mg/dL (7-26); BUN/CREATININE RATIO 9 (6-25); CARBON DIOXIDE 28 mmol/L (22-29); CHLORIDE 104 mmol/L (98-107); CREATININE, SERUM 1.16 mg/dL (0.72-1.25); EST GLOMERULAR FILTRATION RATE > 60 ML/MIN (60-); GLUCOSE 104 mg/dL (74-118); POTASSIUM 3.4 mmol/L (3.5-5.1); SODIUM 138 mmol/L (136-145)
--- NOTE | 2019-09-01 08:01 | Diagnostic Imaging Report ---
EXAMINATION: CHEST SINGLE (PORTABLE) COMPARISON: Chest x-ray 08/25/2019 INDICATION: Shortness of breath, pneumonia ^Pneumonia ^[id number] ^0600 DISCUSSION: Frontal view of the chest obtained at 0636 hours. HEART AND MEDIASTINUM: The heart is top normal in size, stable. LINES: None. LUNGS/PLEURA: Right perihilar airspace opacity is similar. No new airspace opacities in the left lung. No pleural effusion or pneumothorax. BONES AND SOFT TISSUES: No focal osseous lesion. The soft tissues are normal. IMPRESSION: No change in right perihilar airspace opacity. Recommend correlation with PA and lateral chest x-ray if clinically feasible. Signed by: Dr. Cinda Kemp MD on 09/01/2019 7:57 AM
[2019-09-01 08:15] LABS: RBC MORPHOLOGY COMMENT NORMAL
[2019-09-01 08:16] LABS: PLATELET ESTIMATE MARKEDLY DECREASED; PLATELET MORPHOLOGY COMMENT NORMAL
[2019-09-01] MEDS: MIDODRINE HCL 5 MG TABLET PO SCH ×3 (08:19→16:00)
[2019-09-01] MEDS: IRON SUCROSE 100 MG in SODIUM CHLORIDE 0.9% 100 ML 100 ML IV SCH (08:19)
[2019-09-01] MEDS: HYDROXYZINE HCL 25 MG TAB PO SCH (08:19)
[2019-09-01] MEDS: FUROSEMIDE 20 MG TAB PO SCH (08:20)
[2019-09-01] MEDS: DICYCLOMINE HCL 10 MG CAP PO SCH ×3 (08:20→20:00)
[2019-09-01] MEDS: APIXAB 2.5 MG TABLET PO SCH ×2 (08:20→16:00)
[2019-09-01] MEDS: LACTULOSE SYRUP 20 GM/30 ML UDC PO SCH ×2 (08:20→16:00)
[2019-09-01] MEDS: GUAIFENESIN 600MG/DEXTROMETHORPHAN 30MG TABSR PO SCH ×2 (08:21→16:00)
[2019-09-01] MEDS: CEFTRIAXONE SOD 1 GM/NS 50 ML 50 ML IV SCH (10:00)
[2019-09-01] MEDS ORDERED: POTASSIUM CHLORIDE 20 MEQ TAB CR PO ONE (10:00)
[2019-09-01] MEDS ORDERED: AZITHROMYCIN 500MG/NS 250 ML 250 ML IV SCH (10:30)
--- NOTE | 2019-09-01 11:02 | Diagnostic Imaging Report ---
CT chest without enhancement CPT code: 66785 INDICATION: Pneumonia, cough TECHNIQUE: Thin collimation axial images obtained from the thoracic inlet to the level of the diaphragm without intravenous contrast. Dose reduction techniques used: Automated exposure control, adjustment of the mAs and/or kVp according to patient size, standardized low-dose protocol, and/or iterative reconstruction technique. RADIATION DOSE: Total DLP: 443.54 mGy*cm Estimated effective dose: (DLP x 0.015 x size factor) mSv CTDIvol has been reviewed. It is below the limits set by the Radiation Protocol Committee (RPC). COMPARISON: CT abdomen/pelvis 08/28/2019. CHEST FINDINGS: Lymph nodes: No enlarged axillary, supraclavicular, or mediastinal lymph nodes. Left of intravenous contrast limits evaluation of the darrian for lymphadenopathy Thyroid: Visualized portions are normal. Mediastinum: The heart is mildly enlarged. Main pulmonary artery measures 3.5 cm. The ascending aorta measures 3.2 cm. No pericardial effusion. The esophagus is normal. Lungs: Right: No confluent infiltrates. Trace basilar atelectasis. Left: No confluent infiltrates. Trace basilar atelectasis and atelectasis in the anterior basal segment of the lower lobe. Pleura: No pleural effusions or pleural based mass.. ABDOMEN FINDINGS: Small amount of ascites. Lobulated hepatic contours suggestive of cirrhosis. Splenomegaly. Bones: Mild degenerative changes of the thoracic spine. No compression deformities or focal osseous lesions. Soft tissues: Moderate bilateral gynecomastia. IMPRESSION: 1. No evidence of pulmonary infiltrate to suggest pneumonia. 2. Cardiomegaly. Enlarged pulmonary artery suggestive of pulmonary artery hypertension. 3. Splenomegaly, abdominal ascites, and bilateral gynecomastia. Lobulated hepatic contours suggestive of cirrhosis. Signed by: Dr. Cinda Kemp MD on 09/01/2019 10:58 AM
[2019-09-01] MEDS: LEVOFLOXACIN 250 MG TAB PO SCH (11:31)
[2019-09-01] MEDS: ACETAMINOPHEN 325 MG TAB PO PRN ×2 (16:03→19:38)
--- NOTE | 2019-09-01 19:02 | NUR ---
Resumed care of patient. Patient awake and resting in bed, no s/s of distress at this time. Bed locked and in lowest position, side rails up x3, call light placed within reach. Patient instructed to call for assistance if needed, verbalized understanding. All safety measures in place. Will continue to monitor.
[2019-09-01] MEDS: ONDANSETRON HCL INJ 2MG/ML 2ML 2 MG/ML VIAL IV PRN (19:30)
[2019-09-01] MEDS: BACITRACIN/POLYMYXIN 30 GM OINT TP SCH (20:01)
--- NOTE | 2019-09-01 21:30 | NUR ---
Confirmed with lab that patient is COVID negative.
--- NOTE | 2019-09-01 21:36 | NUR ---
Handoff report given to Gayle Estrada RN. Patient resting in bed, respirations even and unlabored, no s/s of distress at this time. All safety measures in place.
--- NOTE | 2019-09-01 21:41 | NUR ---
Received patient in report.stable condition.
--- NOTE | 2019-09-01 23:00 | NUR ---
RECEIVED REPORT FROM PREVIOUS NURSE. PATIENT IN BED ASLEEP. PATIENT IN NO PAIN OR DISTRESS. CALL LIGHT WITHIN REACH. PATIENT IS A&OX3.
[2019-09-02 00:16] VITALS: BP 103/69
[2019-09-02] MEDS: PANTOPRAZOLE 40 MG 10ML VIAL IV SCH ×2 (01:24→13:17)
[2019-09-02] MEDS: ALBUTEROL/IPRATROPIUM 3 ML NEB NEB SCH ×4 (02:50→15:15)
[2019-09-02 05:29] VITALS: BP 101/55
[2019-09-02 05:58] LABS: BASOPHILS % 0.4 % (0.0-1.0); EOSINOPHILS # (AUTO) 0.2 (0.0-0.4); EOSINOPHILS % 6.9 % (0.0-6.0); HEMATOCRIT 25.9 % (38.2-49.6); LYMPHOCYTES # (AUTO) 0.5 (1.0-3.2); LYMPHOCYTES % 18.9 % (18.0-39.1); MEAN CORPUSCULAR HEMOGLOBIN 24.3 pg (28-32); MEAN CORPUSCULAR HGB CONC 30.9 g/dL (31-35); MEAN CORPUSCULAR VOLUME 78.7 fL (81-99); MONOCYTES # (AUTO) 0.7 (0.2-0.8); MONOCYTES % 27.4 % (4.4-11.3); NEUTROPHILS # (AUTO) 1.2 (2.1-6.9); RED BLOOD COUNT 3.29 x10e6/uL (4.3-5.7); RED CELL DISTRIBUTION WIDTH 27.2 % (11.7-14.4)
[2019-09-02 06:20] LABS: PLATELET COUNT 34 x10e3/uL (140-360)
[2019-09-02 06:27] LABS: ALANINE AMINOTRANSFERASE 12 IU/L (0-55); ALBUMIN 2.2 g/dL (3.5-5.0); ALBUMIN/GLOBULIN RATIO 0.5 (0.8-2.0); ALKALINE PHOSPHATASE 40 IU/L (40-150); ANION GAP 11.2 mmol/L (8-16); BLOOD UREA NITROGEN 12 mg/dL (7-26); BUN/CREATININE RATIO 11 (6-25); CALCIUM 7.7 mg/dL (8.4-10.2); CARBON DIOXIDE 27 mmol/L (22-29); CHLORIDE 106 mmol/L (98-107); CREATININE, SERUM 1.08 mg/dL (0.72-1.25); EST GLOMERULAR FILTRATION RATE > 60 ML/MIN (60-); GLUCOSE 103 mg/dL (74-118); POTASSIUM 3.2 mmol/L (3.5-5.1); SODIUM 141 mmol/L (136-145)
--- NOTE | 2019-09-02 06:27 | NUR ---
CALLED DR. KELLY OFFICE AND LEFT A MESSAGE TO LET THEM KNOW THE PATIENT HAS A CRITICAL LAB VALUE OF 34 FOR THEIR PLATELETS.
[2019-09-02 06:32] LABS: MAGNESIUM 1.1 MG/DL (1.3-2.1)
--- NOTE | 2019-09-02 06:43 | NUR ---
CALLED DR. KELLY OFFICE AND TALKED TO JOI GARCIA ABOUT THE PATIENT'S PLATELET BEING 34 AND THE MAGNESIUM BEING 1.1. JOSE ORDERED 2 G MAGNESIUM SULFATE IV ONCE AND TO CALL DR. BARRERA ABOUT THE PLATELET COUNT. CALLED AND TALKED TO DR. BARRERA ABOUT THE PATIENT PLATELET COUNT AND MAGNESIUM. DR. BARRERA SAID HE HAS NOT SEEN THE PATIENT IN MORE THAN 1 WEEK AND PATIENT IS HERE FOR PANCYTOPENIA SO HE IS OFF THE CASE AND TO CALL THE ATTENDING DOCTOR.
[2019-09-02] MEDS ORDERED: MAGNESIUM SULFATE 2GM/50ML 50 ML IV ONE (07:00)
[2019-09-02] MEDS: TRAMADOL HCL 50 MG TAB PO PRN ×2 (07:16→14:43)
--- NOTE | 2019-09-02 07:28 | NUR ---
GAVE BEDSIDE SHIFT REPORT TO ONCOMING NURSE. PATIENT IN BED. CALL LIGHT WITHIN REACH. HOURLY ROUNDING PERFORMED. PATIENT IS A&OX3.
--- NOTE | 2019-09-02 07:30 | NUR ---
PATIENT IS AWAKE, ALERT TO SELF/PLACE, AND IS IN STABLE CONDITION WITH NO S/S OF RESPIRATORY DISTRESS. PATIENT C/O ABD PAIN 8/10 DURING BEDSIDE SHIFT REPORT AND THE NIGHT NURSE ADMINISTERED PO PAIN MEDICATION TO THE PATIENT. IV MAGNESIUM INFUSING. BED ALARM APPLIED. CALL LIGHT IS WITHIN REACH, PATIENT INSTRUCTED TO CALL FOR ASSISTANCE NEEDED.
[2019-09-02 07:57] VITALS: BP 97/57
[2019-09-02] MEDS: FUROSEMIDE 20 MG TAB PO SCH (07:59)
[2019-09-02] MEDS: DICYCLOMINE HCL 10 MG CAP PO SCH ×2 (07:59→16:06)
[2019-09-02] MEDS: APIXAB 2.5 MG TABLET PO SCH ×2 (07:59→16:06)
[2019-09-02] MEDS: LACTULOSE SYRUP 20 GM/30 ML UDC PO SCH ×2 (07:59→18:37)
[2019-09-02] MEDS: HYDROXYZINE HCL 25 MG TAB PO SCH (07:59)
[2019-09-02] MEDS: GUAIFENESIN 600MG/DEXTROMETHORPHAN 30MG TABSR PO SCH ×2 (07:59→16:06)
[2019-09-02] MEDS: IRON SUCROSE 100 MG in SODIUM CHLORIDE 0.9% 100 ML 100 ML IV SCH (08:01)
[2019-09-02] MEDS: MIDODRINE HCL 5 MG TABLET PO SCH ×3 (08:01→16:06)
[2019-09-02 08:04] LABS: ANISOCYTOSIS MARKED; BAND NEUTROPHILS % (MANUAL) 1 %; EOSINOPHILS % (MANUAL) 3 % (0-7); HYPOCHROMASIA MODERATE; LYMPHOCYTES % (MANUAL) 16 % (19-48); MONOCYTES % (MANUAL) 14 % (3.4-9.0); NEUTROPHILS % (MANUAL) 66 % (40-74); OVALOCYTES FEW; RBC MORPHOLOGY COMMENT ABNORMAL
[2019-09-02 08:05] LABS: ELLIPTOCYTE, RBC SLIGHT; MICROCYTOSIS SLIGHT; TARGET CELLS FEW
[2019-09-02 08:06] LABS: PLATELET ESTIMATE MARKEDLY DECREASED; POLYCHROMASIA FEW; TEAR DROP CELLS FEW
[2019-09-02 08:07] LABS: PLATELET MORPHOLOGY COMMENT FEW LARGE
[2019-09-02 08:31] VITALS: BP 97/57
[2019-09-02] MEDS: OCTREOTIDE ACETATE 500 MCG in SODIUM CHLORIDE 0.9% 250ML 250 ML IV SCH (08:45)
[2019-09-02] MEDS ORDERED: MAG-OXIDE400 MG PO (09:41)
[2019-09-02] MEDS ORDERED: FUROSEMIDE20 MG PO (09:41)
[2019-09-02] MEDS ORDERED: K DUR10 MEQ PO (09:41)
[2019-09-02] MEDS ORDERED: MIDODRINE HCL5 MG PO (09:41)
[2019-09-02] MEDS ORDERED: CEFDINIR300 MG PO (09:43)
[2019-09-02] MEDS ORDERED: POTASSIUM CHLORIDE 10MEQ/100ML 300 ML IV ONE (10:15)
[2019-09-02] MEDS: CEFTRIAXONE SOD 1 GM/NS 50 ML 50 ML IV SCH (10:25)
--- NOTE | 2019-09-02 10:47 | Diagnostic Imaging Report ---
Abdominal Ultrasound Limited Clinical Diagnosis: Look for ascites Comparison: None Technique: Multiple transaxial and longitudinal images were obtained through the 4 quadrants of the abdomen abdomen with real time ultrasonography. A low frequency curvilinear transducer was utilized. Multiple images were submitted for interpretation. Report: There is minimal ascites seen only in the right upper quadrant. Impression: As above. Signed by: Dionicio Ingram MD on 09/02/2019 10:44 AM
--- NOTE | 2019-09-02 10:54 | Progress Note ---
DATE: Renal Progress Note SUBJECTIVE: Followed for acute kidney injury on probable chronic kidney disease, stage 2 at baseline. Creatinine stays around 1.1 mg/dL, which likely is a chronic baseline for him given his chronic hypotension, which is labile. He does respond well to midodrine. The patient has had a low magnesium today at 1.1. Potassium is low also at 3.2. The patient is starting to get more abdominal fullness, increased abdominal girth, and may be reaccumulating ascitic fluid. OBJECTIVE: VITAL SIGNS: Blood pressure high 90s to low 100s over 50, 66 pulse, afebrile. LUNGS: Clear to auscultation bilaterally. CARDIOVASCULAR: S1 and S2. No rub. ABDOMEN: Soft and nontender. Ascitic. EXTREMITIES: No edema. LABORATORY DATA: Potassium is 3.2, BUN is 12, and creatinine 1.1. Calcium 7.7 and magnesium 1.1. IMPRESSION AND PLAN: 1. Acute kidney injury, resolved off IV fluids. 2. Chronic kidney disease, stage 2 at baseline. We will continue midodrine to help improve blood pressure, which will help improve renal perfusion. 3. Hypomagnesemia, has been replaced IV. We will also add oral magnesium oxide. 4. Hypokalemia. We will replace both IV and orally, and make further recommendations. May consider adding spironolactone if allowed by his blood pressure, although feel right now his blood pressure is on the low side and may have to increase midodrine up some more before adding low-dose spironolactone. 5. History of liver cirrhosis. We will continue with oral furosemide, increased to 40 mg twice a day. We will also consider adding spironolactone once the patient's blood pressure is better and the patient is able to tolerate being on the spironolactone. Thank you once again. MD MAXI Henderson/MODL /[id number]
[2019-09-02] MEDS ORDERED: SODIUM CHLORIDE 0.9% 1000ML 1,000 ML ONE (11:42)
[2019-09-02] MEDS: LEVOFLOXACIN 250 MG TAB PO SCH (11:47)
[2019-09-02 15:44] VITALS: BP 93/60
[2019-09-02 16:04] LABS: ALANINE AMINOTRANSFERASE 12 IU/L (0-55); ALBUMIN 2.1 g/dL (3.5-5.0); ALBUMIN/GLOBULIN RATIO 0.5 (0.8-2.0); ALKALINE PHOSPHATASE 41 IU/L (40-150); ANION GAP 8.6 mmol/L (8-16); BLOOD UREA NITROGEN 11 mg/dL (7-26); BUN/CREATININE RATIO 10 (6-25); CALCIUM 7.4 mg/dL (8.4-10.2); CARBON DIOXIDE 26 mmol/L (22-29); CHLORIDE 107 mmol/L (98-107); CREATININE, SERUM 1.05 mg/dL (0.72-1.25); EST GLOMERULAR FILTRATION RATE > 60 ML/MIN (60-); GLUCOSE 104 mg/dL (74-118); POTASSIUM 3.6 mmol/L (3.5-5.1); SODIUM 138 mmol/L (136-145)
[2019-09-02] MEDS ORDERED: POTASSIUM CHLORIDE 10MEQ EA PO SCH (17:00)
[2019-09-02] MEDS ORDERED: MAGNESIUM OXIDE 400 MG TAB PO SCH (17:00)
[2019-09-02] MEDS ORDERED: FUROSEMIDE 20 MG TAB PO SCH (17:00)
--- NOTE | 2019-09-02 19:38 | NUR ---
PATIENT DISCHARGE HOME- PATIENT OFF THE UNIT AT 1850 PER WHEELCHAIR ACCOMPANIED BY STAFF MEMBER TO THE FRONT LOBBY. PATIENT IN STABLE CONDITION WITH NO S/S OF RESPIRATORY DISTRESS. NO PAIN VOICED. DISCHARGE TEACHING, INSTRUCTIONS, AND MEDICATIONS GIVEN TO THE PATIENT AND HIS ALONG WITH HIS PERSONAL ITEMS.
--- NOTE | 2019-09-04 12:06 | Discharge Summary ---
ADMISSION DIAGNOSES: 1. Acute nonocclusive main portal vein thrombosis. 2. Liver cirrhosis due to alcohol abuse with transaminitis. 3. Hepatitis C virus treated. 4. Hypertension. 5. Hyponatremia. 6. Hypokalemia. DISCHARGE DIAGNOSES: 1. Acute nonocclusive main portal vein thrombosis. 2. Liver cirrhosis due to alcohol abuse with transaminitis. 3. Hepatitis C virus treated. 4. Hypertension. 5. Hyponatremia. 6. Hypokalemia. 7. Thrombocytopenia due to cirrhosis. 8. Rule out Coronavirus. 9. Rule out pneumonia, possible urinary tract infection. HISTORY: Hypertension, liver cirrhosis, alcohol abuse, hep C, treated. SURGICAL HISTORY: Abdominal surgery due to bowel obstruction, left biceps surgery. FAMILY HISTORY: The patient's mom, dad, uncles and brother had diabetes. The patient's grandmother had cancer as well as his uncle. SOCIAL HISTORY: The patient admits to smoking half a pack of cigarettes a day for 28 years. He also admits to alcohol abuse about 1 L of whiskey on weekends. He admits to distant use of "cocaine as a kid." HOSPITAL COURSE: A 49-year-old male admitted with about one week duration of abdominal pain. He went to his PCP office, Dr. Aguilera, and saw someone else in his place. On admission, patient was started on morphine due to abdominal pain. CT of the abdomen and pelvis showed acute nonocclusive main portal vein thrombus. Diffuse hepatic steatosis and cirrhotic liver contour, splenomegaly, 3 mm right mid pole obstructive renal calculus. No hydronephrosis. Chest x-ray showed bibasilar opacities, most notable in the right lower lung. Ultrasound of the abdomen showed trace ascites, hepatic steatosis. Gastroenterology and Oncology were consulted. The patient was started on heparin drip initially and then changed to Eliquis per Hematology. The patient is tolerating diet, although he continues to complain of abdominal pain. Repeat CT of the abdomen showed no significant change. Coronavirus was negative x2. The patient's labs remained stable. Two days prior to discharge, the patient had a low-grade fever, so repeat alcazar culture was done and CT of the chest was done, which showed no evidence to suggest pneumonia. UA came back positive for RBC, WBC, and bacteria. The patient was started on Zithromax and Rocephin, which resolved the fever. Due to no pneumonia the Zithromax was stopped. The patient was discharge home with new prescription for Omnicef, Eliquis, vitamin C, Colace, iron, increased dose of Lasix, potassium, tramadol, Protonix, Midrin, and Mag-Ox. Nephrology, Gastroenterology, and Hematology all agreed for discharge. The patient is tolerating diet. Pain is controlled and is not having diarrhea. The patient is ready to discharge home. Repeat ultrasound of the abdomen showed trace ascites and his ammonia level was within normal limits. He will follow up with primary care and GI in 1 to 2 weeks. The patient understands instructions and agrees to plan. Vital signs stable. The patient is afebrile. Dictated by Shani Malcolm NP MD YAO Franco/MODJulius /[id number]
== END 2019-09-02 19:01 | disposition home or self-care (01) | DRG 441 ==
LOC: ER 11:47 → ERHOLD 16:10 → MED/SURG3 20:07
PROVIDERS: ADMIT Internal Medicine; ATTEND Internal Medicine
PROC: 30243N1 Transfusion of Nonautologous Red Blood Cells into Central Vein, Percutaneous Approach (ICD-10-PCS; principal; 2019-08-27)
DX: I81 Portal vein thrombosis (principal); J18.1 Lobar pneumonia, unspecified organism; E87.1 Hypo-osmolality and hyponatremia; N17.9 Acute kidney failure, unspecified; N39.0 Urinary tract infection, site not specified; E72.20 Disorder of urea cycle metabolism, unspecified; D61.818 Other pancytopenia; K70.30 Alcoholic cirrhosis of liver without ascites; B19.20 Unspecified viral hepatitis C without hepatic coma; E87.6 Hypokalemia; D69.59 Other secondary thrombocytopenia; Z11.59 Encounter for screening for other viral diseases; K21.9 Gastro-esophageal reflux disease without esophagitis; I12.9 Hypertensive chronic kidney disease with stage 1 through stage 4 chronic kidney disease, or unspecified chronic kidney disease; N18.2 Chronic kidney disease, stage 2 (mild); L29.9 Pruritus, unspecified
CPT/HCPCS: 36415; 71045; 71046; 71250; 74177; 76705; 76770; 80048; 80053; 81001; 82105; 82140; 82150; 82550; 82553; 82570; 82607; 82728; 82746; 83540; 83605; 83630; 83690; 83735; 84100; 84300; 84466; 84484; 85025; 85045; 85610; 85730; 86140; 86850; 86900; 86920; 87040; 87045; 87086; 87177; 87521; 87635; 94640; 97139; 99251; 99284; J0456; J0696; J1652; J1756; J2270; J2353; J2354; J2405; J2543; J3410; J3411; J3430; J3475; J3480; J7030; J7050; P9016; Q9967

== ENCOUNTER 2019-10-01 07:36 | Inpatient (IN) | payer MEDICARE, OTHER ==
[~2019-10-01] VITALS: Ht 175.3 cm; Wt 101.2 kg
[~2019-10-01 07:36] MED LIST changes: +ASCORBIC ACID500 MG PO; +CEFDINIR300 MG PO; +DICYCLOMINE HCL10 MG PO; +DOCUSATE SODIU100 MG PO; +ELIQUIS2.5 MG PO; +FERROUS SULFAT325 MG PO; +FUROSEMIDE20 MG PO; +K DUR10 MEQ PO; +MAG-OXIDE400 MG PO; +MIDODRINE HCL5 MG PO; +TIZANIDINE HCL4 MG PO; +ULTRAM 50MG50 MG PO
[2019-10-01] MEDS ORDERED: MORPHINE SULFATE INJ 4 MG/ML INJ 1ML IV STA (08:07)
[2019-10-01] MEDS ORDERED: ONDANSETRON HCL INJ 2MG/ML 2ML 2 MG/ML VIAL IV STA (08:07)
[2019-10-01] MEDS ORDERED: SODIUM CHLORIDE 0.9% 1000ML 1,000 ML IV STA ×2 (08:07)
[2019-10-01] MEDS ORDERED: PANTOPRAZOLE 40 MG 10ML VIAL IV STA (08:07)
--- NOTE | 2019-10-01 08:12 | Emergency Department Note ---
History of Present Illnes History of Present Illness Chief Complaint: Abdominal Complaints History of Present Illness This is a 49 year old male . Historian: Patient, Events Assistant/EMS Arrival Mode: [facility] Treatment ORTHOTIC PRACTITIONER: IV, See EMS Report Additional Treatment ORTHOTIC PRACTITIONER: 4 zofran IV/ 75 Fentanyl Ingredient Scaler Required: No Onset (how long ago): day(s) (1) Location: LLQ pain Quality: Sharp Severity: moderate Onset quality: gradual Duration (how long): day(s) Timing of current episode: constant Progression: worsening Chronicity: chronic Context: Reports non-compliance w/ medications Relieving factors: none Exacerbating factors: other (drinking) Associated symptoms: Reports denies other symptoms Treatments prior to arrival: other (EMS placed IV and gave fentanyl) Previous service: medications given Past Medical/Family History Physician Review I have reviewed the patient's past medical and family history. Any updates have been documented here. Past Medical History Recent Fever: No Clinical Suspicion of Infectio: No New/Unexplained Change in Ment: No Past Medical History: Hypertension, Hepatitis C, Liver Disease Other Medical History: ETOH abuse, ascites, skin problems Other Surgery: UNKNOWN - SCAR ON ABDOMEN - HE SAYS "THEY OPERATED ON MY STOMACH" Social History Counseling Performed: No Alcohol Use: Daily Any Illegal Drug Use: No TB Exposure/Symptoms: No Physically hurt or threatened: No Other Last Tetanus: NO Any Pre-Existing Lines (PICC,: No Is patient up to date on immun: No Review of Systems ROS Narrative Patient is a 49 year old that presents with diffuse abd pain that started yesterday after drinking whiskey. Patient states that last night at 1999 he started to vomit, states he has vomited 10+ times since, and noticed blood. Review of Systems Constitutional: Reports weakness EENTM: Reports no symptoms Cardiovascular: Reports no symptoms Respiratory: Reports no symptoms Gastrointestinal: Reports abdominal pain, Reports nausea, Reports vomiting Genitourinary: Reports no symptoms Musculoskeletal: Reports no symptoms Integumentary: Reports no symptoms Neurological: Reports no symptoms Psychological: Reports no symptoms Endocrine: Reports no symptoms Hematological/Lymphatic: Reports no symptoms Physical Exam Related Data Allergies: Coded Allergies: No Known Allergies (Unverified , 10/01/19) Triage Vital Signs Vital Signs Date Time Temp Pulse Resp B/P (MAP) Pulse Ox O2 Delivery O2 Flow Rate FiO2 10/01/19 07:39 97.3 108 18 117/80 100 Room Air Vital signs reviewed: Yes Physical Exam CONSTITUTIONAL Constitutional: Present well-developed, Present well-nourished HENT HENT: Present normocephalic, Present atraumatic, Present oropharynx clear/moist HENT L/R: Present left TM normal, Present right TM normal EYES Eyes: Reports PERRL NECK Neck: Present ROM normal, Present supple PULMONARY Pulmonary: Present effort normal, Present breath sounds normal, Present other (diminished in kady bases) CARDIOVASCULAR Cardiovascular: Present heart sounds normal, Present capillary refill normal, Present tachycardia GASTROINTESTINAL Abdominal: Present tender, Present guarding (diffuse tenderness ) GENITOURINARY SKIN Skin: Present warm, Present dry MUSCULOSKELETAL Musculoskeletal: Present ROM normal NEUROLOGICAL Neurological: Present alert, Present oriented x 3 PSYCHOLOGICAL Psychological: Present mood/affect normal Results Laboratory Lab results reviewed: Yes Imaging Imaging results reviewed: Yes Diagnostics Tests Diagnostic test(s) reviewed: Yes Procedures Stool Hemoccult Procedural steps taken: stool placed in appropriate area, developer placed on stool, developer placed on contol areas, control appropriately pos & neg Hemoccult result: positive Assessment & Plan Medical Decision Making MDM Blood work, UA, CT abd/pel IVF All results discussed with patient . additional orders placed. Consulted with Dr Estrada, Dr Vignesh Hernandez and Dr Victorina Mosqueda. Admission orders placed. Reassessment Reassessment time: 13:01 Assessment & Plan Final Impression: (1) Alcoholic cirrhosis of liver with ascites (2) TOXIC EFFECT OF ETHANOL, UNDETERMINED, SEQUELA (3) Abdominal pain (4) Small bowel obstruction (5) GI bleed Depart Disposition: ADMITTED Last Vital Signs Date Time Temp Pulse Resp B/P (MAP) Pulse Ox O2 Delivery O2 Flow Rate FiO2 10/01/19 07:39 97.3 108 18 117/80 100 Room Air Home Meds Active Scripts Cefdinir (OMNICEF) 300 Mg Capsule, 300 MG PO BID for 5 Days, CAP Prov:MARISSA MULLIGAN Rajendra HORSE RANCHER 09/02/19 Potassium Chloride* (K DUR*) 10 Meq Tabcr, 20 MEQ PO BID for 30 Days Prov:MARISSA MULLIGAN HORSE RANCHER 09/02/19 Magnesium Oxide (MAG-OXIDE) 400 Mg Tablet, 400 MG PO BID for 30 Days Prov:ISAAKYESSENIAMARISSA M HORSE RANCHER 09/02/19 Midodrine Hcl (MIDODRINE HCL) 5 Mg Tablet, 10 MG PO TID@0800,1200,1600 for 30 Days Prov:ISAAKMARISSA HORSE RANCHER 09/02/19 Furosemide (FUROSEMIDE) 20 Mg Tablet, 20 MG PO BID for 30 Days Prov:ISAAK,MARISSA Drew HORSE RANCHER 09/02/19 Docusate Sodium (DOCUSATE SODIUM) 100 Mg Capsule, 100 MG PO DAILY for 30 Days, CAP Prov:ISAAK,MARISSA Drew HORSE RANCHER 08/29/19 Ascorbic Acid (ASCORBIC ACID) 500 Mg Tablet, 500 MG PO DAILY, #30 TAB Prov:MARISSA MULLIGAN HORSE RANCHER 08/29/19 Ferrous Sulfate (FERROUS SULFATE) 325 Mg Tablet, 325 MG PO DAILY for 30 Days Prov:ISAAK,MARISSA Drew JOI 08/29/19 Pantoprazole Sodium* (PROTONIX) 40 Mg Tablet.dr, 40 MG PO BIDAC for 30 Days, TAB Prov:ISAAKMARISSA JOI 08/29/19 Tramadol Hcl* (ULTRAM 50MG*) 50 Mg Tab, 50 MG PO Q6H PRN for PAIN, #30 TAB Prov:ISAAKMARISSA Drew JOI 08/29/19 Apixaban (Eliquis) 2.5 Mg Tablet, 2.5 MG PO BID for 30 Days Prov:ISAAK,MARISSA Drew JOI 08/29/19 Tizanidine Hcl (TIZANIDINE HCL) 4 Mg Tablet, 4 MG PO BID PRN for Muscle Cramps, #30 TAB Prov:ISAAK,MARISSA Rajendra JOI 08/29/19 SANDY WOODARD Oct 01, 2019 08:05
[2019-10-01 08:24] LABS: BASOPHILS % 0.6 % (0.0-1.0); EOSINOPHILS # (AUTO) 0.2 (0.0-0.4); EOSINOPHILS % 6.3 % (0.0-6.0); HEMATOCRIT 30.7 % (38.2-49.6); HEMOGLOBIN 9.6 g/dL (14.0-18.0); LYMPHOCYTES # (AUTO) 0.4 (1.0-3.2); LYMPHOCYTES % 11.8 % (18.0-39.1); MEAN CORPUSCULAR HEMOGLOBIN 27.7 pg (28-32); MEAN CORPUSCULAR HGB CONC 31.3 g/dL (31-35); MEAN CORPUSCULAR VOLUME 88.7 fL (81-99); MONOCYTES # (AUTO) 0.4 (0.2-0.8); MONOCYTES % 10.4 % (4.4-11.3); NEUTROPHILS # (AUTO) 2.5 (2.1-6.9); NEUTROPHILS % 70.6 % (38.7-80.0); PLATELET COUNT 56 x10e3/uL (140-360); RED BLOOD COUNT 3.46 x10e6/uL (4.3-5.7)
[2019-10-01] MEDS ORDERED: DIATRIZOATE MEGL/DIATRIZOA SOD 30 ML BTL PO ONE (08:27)
[2019-10-01 08:34] LABS: INR 1.24; PROTHROMBIN TIME 16.3 seconds (11.9-14.5)
[2019-10-01 08:44] LABS: ALANINE AMINOTRANSFERASE 9 IU/L (0-55); ALBUMIN 2.3 g/dL (3.5-5.0); ALBUMIN/GLOBULIN RATIO 0.4 (0.8-2.0); ALKALINE PHOSPHATASE 72 IU/L (40-150); ANION GAP 11.6 mmol/L (8-16); BLOOD UREA NITROGEN 9 mg/dL (7-26); BUN/CREATININE RATIO 12 (6-25); CALCIUM 8.5 mg/dL (8.4-10.2); CARBON DIOXIDE 22 mmol/L (22-29); CHLORIDE 109 mmol/L (98-107); CREATINE KINASE 20 IU/L (30-200); CREATININE, SERUM 0.75 mg/dL (0.72-1.25); EST GLOMERULAR FILTRATION RATE > 60 ML/MIN (60-); GLUCOSE 108 mg/dL (74-118); LIPASE 48 U/L (8-78); POTASSIUM 3.6 mmol/L (3.5-5.1); SODIUM 139 mmol/L (136-145)
[2019-10-01] MEDS ORDERED: SODIUM CHLORIDE 0.9% 50ML 50 ML ONE (09:01)
[2019-10-01] MEDS ORDERED: IOPAMIDOL 370 MG/ML 200 ML INFUS..BTL INJ ONE (09:02)
[2019-10-01] MEDS ORDERED: LACTULOSE SYRUP 20 GM/30 ML UDC PO ONE (09:15)
--- NOTE | 2019-10-01 09:24 | Diagnostic Imaging Report ---
X-ray chest AP portable Comparison: CT 09/01/2019 History: Abdominal pain Findings: Poor inspiratory effort. Otherwise for the technique, central airways, cardiomediastinal silhouettes, pleural spaces, diaphragms, lung thompson, visualized skeletal structures, extrathoracic soft tissues appear unremarkable. Impression: No significant abnormality on this exam. Signed by: Dionicio Ingram MD on 10/01/2019 9:21 AM
[2019-10-01 09:51] LABS: BAND NEUTROPHILS % (MANUAL) 4 %; EOSINOPHILS % (MANUAL) 4 % (0-7); LYMPHOCYTES % (MANUAL) 9 % (19-48); MONOCYTES % (MANUAL) 8 % (3.4-9.0); NEUTROPHILS % (MANUAL) 75 % (40-74); PLATELET ESTIMATE MARKEDLY DECREASED
[2019-10-01 09:52] LABS: PLATELET MORPHOLOGY COMMENT NORMAL
--- NOTE | 2019-10-01 11:19 | NUR ---
pt informed of the need for urine. urinal at bedside
--- NOTE | 2019-10-01 12:08 | Diagnostic Imaging Report ---
CT of the abdomen and pelvis. Comparison: CT of the abdomen and pelvis 08/28/2019 Clinical History: Abdominal pain, nausea, vomiting Technique: Helical CT scan of the abdomen and pelvis was performed. Intravenous contrast administration was utilized. Oral contrast administration was utilized. Coronal and sagittal reconstructions were generated from the raw data. Multiple images were submitted for interpretation. This exam was performed according to our departmental dose-optimization program which includes automated exposure control, adjustment of the mA and/or kV according to patient size Discussion: Inferior chest: Bilateral dependent atelectasis. Heart size normal. No pericardial effusion. No pleural effusion. Moderate bilateral gynecomastia. Liver: Lobar volume redistribution. No focal mass seen on this exam. There is presence of a large number of venous collaterals in the gastrohepatic ligament. This suggests presence of portosystemic collaterals and portal hypertension. The main portal vein shows linear filling defects. The right and left branch portal veins are patent. These filling defects most likely representing portal vein thrombus is significantly improved compared with the previous exam. The splenic vein and inferior mesenteric vein are patent. . There is partial wall adherent thrombus of the medial wall of the superior mesenteric vein. This is not significantly changed compared with the previous exam. There is presence of mild abdominal ascites. This altogether is suggestive of liver cirrhosis. Spleen: Bordering on splenomegaly. Pancreas: Unremarkable Biliary tree and gallbladder: Unremarkable Adrenal glands: Unremarkable Kidneys and ureters: Unremarkable Vasculature: Unremarkable Lymph nodes: No lymphadenopathy Bowel: Esophagus unremarkable. Stomach unremarkable. Duodenum distended with orally administered contrast medium. There is presence of multiple abnormally fluid containing cysts distended loops of the jejunum and proximal ileum in the upper abdomen the transition into nondistended loops of ileum just above or at the level of the umbilicus. There is no wall thickening of these loops. There is no pneumatosis of these loops. There is no portal venous gas. There is mesenteric stranding. The superior mesenteric artery branches are patent. There is poor passage of orally administered contrast medium beyond the proximal jejunum. Along with the distal ileum, the entire colon is nondistended. There is no free intraperitoneal air. Pelvis: Urinary bladder is unremarkable. Prostate unremarkable. Seminal vesicles unremarkable. Pelvic wall unremarkable. Peritoneum: In addition to trace generalized ascites, there is presence of loculated ascites in the perihepatic space and extending inferiorly along the anterior right abdominal wall almost to the level of the umbilicus. It is situated anterior to the distended loops of bowel. It shows enhancing mckee. This might represent inflamed or infected loculated collection. Perineal compartments: unremarkable. Fluid: As above Bones: No aggressive bony lesions. Body wall: Unremarkable Impression: Multiple abnormal findings on this CT. There is small bowel obstruction with the transition point in the mid abdomen as described. There is improvement of the portal vein thrombus. There is no change in the superior mesenteric vein wall adherent thrombus. There is presence of loculated ascites with enhancing mckee raising the possibility of infection and/or inflammation. Likely liver cirrhosis. Signed by: Dionicio Ingram MD on 10/01/2019 12:04 PM
[2019-10-01] MEDS ORDERED: MORPHINE SULFATE INJ 4 MG/ML INJ 1ML IV PRN (12:30)
[2019-10-01] MEDS ORDERED: CIPROFLOXACIN 400 MG/D5W 200ML 200 ML IV ONE (12:30)
[2019-10-01] MEDS ORDERED: METRONIDAZOLE 500MG/NS 100ML 100 ML IV ONE (13:30)
[2019-10-01] MEDS: CIPROFLOXACIN 400 MG/D5W 200ML 200 ML IV SCH (14:08)
[2019-10-01 15:56] LABS: BILIRUBIN,URINE NEGATIVE (NEGATIVE); CLARITY,URINE CLOUDY (CLEAR); COLOR,URINE YELLOW (YELLOW); KETONES,URINE NEGATIVE (NEGATIVE); LEUKOCYTE ESTERASE ,URINE NEGATIVE (NEGATIVE); NITRITE,URINE NEGATIVE (NEGATIVE); PROTEIN,URINE DIPSTICK NEGATIVE (NEGATIVE); URINE UROBILINOGEN 1 mg/dL (0.2 - 1)
[2019-10-01 16:00] VITALS: BP 137/95
[2019-10-01 16:22] LABS: AMORPHOUS SEDIMENT,URINE MANY (FEW); BACTERIA,URINE MODERATE /HPF; EPITHELIAL CELLS,URINE RARE /LPF
[2019-10-01 16:47] VITALS: BP 137/95
[2019-10-01] MEDS: SODIUM CHLORIDE 0.9% 1000ML 1,000 ML IV SCH ×2 (17:07→19:57)
[2019-10-01] MEDS: ONDANSETRON HCL INJ 2MG/ML 2ML 2 MG/ML VIAL IV PRN ×2 (17:34→21:20)
[2019-10-01] MEDS: METRONIDAZOLE 500MG/NS 100ML 100 ML IV SCH (17:34)
[2019-10-01] MEDS: PANTOPRAZOLE 40 MG 10ML VIAL IV SCH (17:34)
--- NOTE | 2019-10-01 18:08 | NUR ---
14F NGT PLACED IN RIGHT NARE AT APPROXIMATELY 1700. DR. Vignesh MURILLO AT BEDSIDE. PATIENT TOLERATED PROCEDURE WELL. NO DISTRESS NOTED. CALL LIGHT IN REACH. SIDE RAILS UP X2. BED LOW AND LOCKED.
--- NOTE | 2019-10-01 19:20 | NUR ---
page placed for MD Estrada concerning uncontrolled pain. waiting for callback.
[2019-10-01 20:00] VITALS: BP 122/87
[2019-10-01] MEDS: THIAMINE HCL INJ 100 MG/ML 2ML VIAL IV SCH (20:00)
--- NOTE | 2019-10-01 20:03 | NUR ---
additional page placed for MD Estrada concerning uncontrolled pain. waiting for callback.
[2019-10-01 20:59] VITALS: BP 122/87
[2019-10-01] MEDS: MORPHINE SULFATE INJ 4 MG/ML INJ 1ML IV PRN (21:20)
[2019-10-02] VITALS: BP 116/93
[2019-10-02] MEDS: METRONIDAZOLE 500MG/NS 100ML 100 ML IV SCH ×4 (00:29→17:23)
[2019-10-02] MEDS: SODIUM CHLORIDE 0.9% 1000ML 1,000 ML IV SCH ×4 (00:30→22:50)
[2019-10-02] MEDS: MORPHINE SULFATE INJ 4 MG/ML INJ 1ML IV PRN ×5 (00:33→20:28)
[2019-10-02] MEDS: CIPROFLOXACIN 400 MG/D5W 200ML 200 ML IV SCH ×2 (02:28→14:00)
[2019-10-02 04:00] VITALS: BP 110/83
[2019-10-02 05:26] LABS: BASOPHILS % 0.4 % (0.0-1.0); EOSINOPHILS # (AUTO) 0.4 (0.0-0.4); EOSINOPHILS % 8.6 % (0.0-6.0); HEMATOCRIT 30.6 % (38.2-49.6); HEMOGLOBIN 9.5 g/dL (14.0-18.0); LYMPHOCYTES # (AUTO) 0.6 (1.0-3.2); LYMPHOCYTES % 12.6 % (18.0-39.1); MEAN CORPUSCULAR HEMOGLOBIN 29.1 pg (28-32); MEAN CORPUSCULAR VOLUME 93.9 fL (81-99); MONOCYTES # (AUTO) 0.6 (0.2-0.8); MONOCYTES % 12.4 % (4.4-11.3); NEUTROPHILS # (AUTO) 3.3 (2.1-6.9); NEUTROPHILS % 65.6 % (38.7-80.0); PLATELET COUNT 66 x10e3/uL (140-360); RED BLOOD COUNT 3.26 x10e6/uL (4.3-5.7); RED CELL DISTRIBUTION WIDTH 30.4 % (11.7-14.4)
[2019-10-02 05:48] LABS: ALANINE AMINOTRANSFERASE 9 IU/L (0-55); ALBUMIN 2.3 g/dL (3.5-5.0); ALBUMIN/GLOBULIN RATIO 0.4 (0.8-2.0); ALKALINE PHOSPHATASE 67 IU/L (40-150); BLOOD UREA NITROGEN 13 mg/dL (7-26); BUN/CREATININE RATIO 13 (6-25); CARBON DIOXIDE 20 mmol/L (22-29); CHLORIDE 112 mmol/L (98-107); CREATININE, SERUM 0.99 mg/dL (0.72-1.25); EST GLOMERULAR FILTRATION RATE > 60 ML/MIN (60-); GLUCOSE 97 mg/dL (74-118); SODIUM 140 mmol/L (136-145)
--- NOTE | 2019-10-02 06:23 | NUR ---
CONSULTATION CALLED TO MD MUNOZ ANSWERING SERVICE. WAITING FOR CALLBACK.
--- NOTE | 2019-10-02 06:57 | NUR ---
down to xray
--- NOTE | 2019-10-02 07:05 | NUR ---
back to , ng flushed with 30cc of saline, ng and ivf reconnected, will continue to monitor
[2019-10-02 07:54] VITALS: BP 133/95
--- NOTE | 2019-10-02 08:32 | Diagnostic Imaging Report ---
Exam: Abdominal film Clinical History: Small bowel obstruction Comparison: CT abdomen and pelvis 10/01/2019 DISCUSSION: Interval placement of an enteric tube, which terminates over the expected region of the gastric fundus. No dilated, air-filled loops of small bowel are appreciated. Gas and fecal material is noted within the colon as seen on intake clerk tomogram from comparison CT. No pneumoperitoneum. No abnormal calcification. Regional skeletal structures are intact. IMPRESSION: Interval placement of an enteric tube as described above. Bowel gas pattern is similar to that seen on intake clerk tomogram from comparison CT 10/01/2019. Of note, dilated small bowel loops were fluid-filled at that time and would not be expected to be visualized on plain radiography. No pneumoperitoneum. Signed by: Dr. Mannie Figueroa M.D. on 10/02/2019 8:29 AM
[2019-10-02] MEDS: PANTOPRAZOLE 40 MG 10ML VIAL IV SCH ×2 (09:14→17:00)
--- NOTE | 2019-10-02 09:16 | History and Physical ---
REASON FOR ADMISSION: A 49-year-old gentleman comes in with abdominal pain. HISTORY OF PRESENT ILLNESS: Mr. Tu Cason with history of portal vein thrombosis, on Eliquis, seen and discharged from this hospital, was in his usual state of health until he started to have left lower quadrant pain, moderate in intensity, and the patient came to the emergency room with abdominal pain, was admitted to the hospital for also gastrointestinal bleeding. PAST MEDICAL HISTORY: History of chronic hepatitis C, history of chronic liver disease, history of cirrhosis of the liver, history of portal hypertension, history of hypertension, and history of alcohol abuse in the past. MEDICATIONS: He takes at home: 1. Apixaban 2.5 mg twice a day. 2. Ascorbic acid 500 mg daily. 3. The patient was on Omnicef 300 mg b.i.d. 4. Furosemide 20 mg daily. 5. Magnesium oxide 400 mg daily. 6. Midodrine 10 mg three times a day. 7. Pantoprazole 40 mg daily. 8. Tizanidine 4 mg. 9. Tramadol 50 mg q.6 hours. SOCIAL HISTORY: Positive for EtOH, the patient has had a large drink about 2 days ago and quantified as about 5-6 drinks. History of smoking and no IV drug abuse. PAST SURGICAL HISTORY: Noncontributory. REVIEW OF SYSTEMS: Negative for chest pain. Positive for some shortness of breath. Positive for abdominal pain. Positive for nausea. Positive for hematochezia. No diarrhea. No constipation. Positive for rectal bleeding. No diplopia. No blurry vision. No paresthesias or hyperesthesias. ALLERGIES: NO RECORDED ALLERGIES. PHYSICAL EXAMINATION: VITAL SIGNS: On arrival to the ED, pulse 108, respirations of 18, blood pressure is 117/80, and temperature is 97.3. GENERAL: The patient is a well-nourished, jaundiced. CVS: S1, S2, regular. ABDOMEN: Soft. Tender in the upper epigastric area and the left lower quadrant area too. Multiple scars present on the anterior abdominal wall secondary to induced trauma. NECK: No JVD present. EXTREMITIES: No clubbing. No cyanosis. Positive for edema. PSYCHOLOGIC: The patient's mood is normal. Affect is normal and very congruent with the conservation. LABORATORY VALUES: Initial white count 3.47, hemoglobin of 9.6, hematocrit of 30.7, and platelet count of 56. Chemistry shows sodium 139, potassium 3.9, BUN of 12, and creatinine of 1.08. Total bilirubin is 1.4. Ammonia was 133. Troponin was 0.03. Globulin 6.1. Serology, Coronavirus is pending. Coags, INR is 1.24. IMAGING STUDIES: Chest x-ray shows no significant abnormalities on the examination. Abdominal CT shows: 1. Small bowel obstruction with a transit point of the mid abdomen. 2. Improvement in portal vein thrombosis. No change in the superior mesenteric vein wall thrombosis. Presence of loculated ascites with enhancing wall raising, possible infection and/or inflammation. 3. Liver cirrhosis. ASSESSMENT: Mr. Tu Cason with: 1. Small bowel obstruction. 2. Thrombocytopenia. PLAN: 1. Continue with NG tube. N.p.o. The patient currently is on fluid resuscitation at 150 mL/h. 2. Possible infectious etiology. We will cover him with metronidazole and ciprofloxacin IV. Thiamine for his alcohol, and the patient is on Protonix 40 mg IV twice a day. Consult with Dr. Rufus Maldonado has been done. An ascites tap will be done for ascites. 3. Consult with Dr. Ibarra for his portal vein thrombosis and superior mesenteric artery thrombosis will be done too, probably will need Lovenox coverage. The patient has been extensively counseled on alcohol and alcohol-induced liver disease and also counseled on smoking. Further recommendation per clinical course. We will continue to monitor the patient. MD PAYAM Gore/MODL /[id number]
[2019-10-02] MEDS: ONDANSETRON HCL INJ 2MG/ML 2ML 2 MG/ML VIAL IV PRN ×3 (09:20→17:23)
--- NOTE | 2019-10-02 09:21 | Consultation ---
DATE OF CONSULTATION: 10/02/[address] Hai Estrada. HISTORY OF PRESENT ILLNESS: Tu Cason is a 49-year-old male, who [place] been referred [place] for evaluation of anemia and thrombocytopenia. The patient had presented with abdominal pain and abdominal distention. This is his 2nd admission for about the same symptoms. The patient had surgical consultation during the last admission. The patient has been seen by Surgery for the same symptoms. SOCIAL HISTORY: History of excessive alcohol intake and history of hepatitis C. FAMILY HISTORY: Noncontributory. ALLERGIES: REPORTED NONE. MEDICATIONS: At this time, 1. Cipro. 2. Flagyl. 3. Normal saline. 4. Lactulose. 5. Morphine. 6. Protonix. 7. Thiamin. 8. Zofran. REVIEW OF SYSTEMS: HEENT: Normal. CARDIAC: Normal. RESPIRATORY: Normal. GI: Cirrhosis of liver, history of mesenteric vein thrombosis, history of portal vein thrombosis. : Normal. MUSCULOSKELETAL: Normal. SKIN AND BREASTS: Normal. NEUROENDOCRINE: Normal. PHYSICAL EXAMINATION: GENERAL: A slightly confused male, anemic. No palpable adenopathy. HEART: Within normal limits. LUNGS: Diminished breath sounds at both the bases. ABDOMEN: Obese, tympanitic, as well as ascites. Spider angioma over the chest. RECTAL: Deferred. CENTRAL NERVOUS SYSTEM: Could not be examined properly because of inability of the patient to cooperate with me. LABORATORY DATA: Lab investigations of interest show a hemoglobin 9.6, hematocrit of 30.7, MCV normal at 88.7, MCHC slightly low at 31.3, RDW slightly high at 30, platelets of 56,000, white count of 3470 with a marked shift to the left with 75 neutrophils and four bands. Chemistry shows a sodium of 139, potassium 3.6, chloride 109, CO2 of 22, BUN 9, and creatinine 0.75, glucose 108, bilirubin 1.4, SGOT and SGPT 24 and 9, alkaline phosphatase 92, ammonia level high at 133, total protein is 8.4, albumin 2.3, globulin 6.1. CAT scan of the abdomen shows loculated ascites as well as possibility of partial bowel obstruction was raised, portal vein thrombosis and eccentric vein thrombosis. IMPRESSION: 1. History of hepatitis C. 2. History of cirrhosis of liver. 3. History of chronic alcoholism. 4. Anemia of chronic disease. 5. History of blood loss due to cirrhosis. 6. Thrombocytopenia. 7. Portal hypertension. 8. Prehepatic encephalopathy. 9. Hyperproteinemia. 10. Hypoalbuminemia. 11. 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 12. Small bowel obstruction. 13. Portal vein thrombosis. 14. Superior mesenteric vein thrombosis. 15. Ascites. PLAN: Plan is to have a surgical consultation for the findings of the CT scan. Hematologically at this time, he is stable. Dr. Rufus Maldonado, an excellent senior ui designer is on the case. I will confine myself to Hematology. MD VAMSI Armas/MODL /[id number] cc: MD Rufus Cordero MD
--- NOTE | 2019-10-02 09:25 | NUR ---
bedside rounds complete no distress noted updated on poc vocied understanding, denies pain at this time, ng to r nare, iv fluids infusing to l ac 20g no ss of infiltration noted no other co vcoied call light in reach will continue to monitor
--- NOTE | 2019-10-02 10:30 | NUR ---
down to radiology for procedure
--- NOTE | 2019-10-02 11:00 | NUR ---
BACK TO RM, VS STABLE, NG FLUSHED WITH 30CC OF SALINE, TOLERATED WELL, IVF RECONNECTED, WILL CONTINUE TO MONITOR
--- NOTE | 2019-10-02 11:06 | Diagnostic Imaging Report ---
PROCEDURE: Ultrasound-guided paracentesis Procedural Personnel Attending physician(s): Norbert Coleman MD Pre-procedure diagnosis: Ascites Post-procedure diagnosis: Unchanged Indication: Ascites with suspicion of infection Additional clinical history: None Complications: No immediate complications. IMPRESSION: Ultrasound-guided paracentesis with drainage of 12 mL of blood tinged fluid. Plan: Sample sent for cultures. PROCEDURE SUMMARY: - Limited abdominal ultrasound - Ultrasound-guided paracentesis - Additional procedure(s): None PROCEDURE DETAILS: Pre-procedure Consent: Informed consent for the procedure including risks, benefits and alternatives was obtained and time-out was performed prior to the procedure. Preparation: The site was prepared and draped using maximal sterile barrier technique including cutaneous antisepsis. Anesthesia/sedation Level of anesthesia/sedation: None Initial abdominal ultrasound Initial abdominal ultrasound was performed. Findings: Trace ascites. A safe window for paracentesis was identified. Paracentesis Local anesthesia was administered. The peritoneal cavity was accessed and fluid return confirmed position. Ascites was drained. The catheter was then removed, and a sterile bandage was applied. Paracentesis access technique: Real-time ultrasound guidance. Catheter placed: 5Fr Yueh Post-drainage ultrasound: Not performed Additional Details Additional description of procedure: None Equipment details: None Specimens removed: Abdominal fluid Estimated blood loss (mL): Minimal (<10cc) Standardized report: [id number] Attestation Signer name: Norbert Coleman MD I attest that I was present for the entire procedure. I reviewed the stored images and agree with the report as written. Signed by: Norbert Coleman MD on 10/02/2019 11:03 AM
[2019-10-02 12:12] VITALS: BP 130/88
[2019-10-02 13:40] LABS: BODY FLUID APPEARANCE SL.CLOUDY; BODY FLUID COLOR RED; BODY FLUID TYPE PERITONEAL
[2019-10-02 13:48] LABS: RBC,BODY FLUID 68970 cells/uL
[2019-10-02 13:49] LABS: WBC,BODY FLUID 220 cells/uL
[2019-10-02 14:11] LABS: EOSINOPHILS,BODY FLUID 2 %; LYMPHOCYTES,BODY FLUID 34 %; MONO/MACROPHG,BODY FLUID 43 %; NEUTROPHILS,BODY FLUID 20 %; OTHER CELLS,BODY FLUID 1 %
[2019-10-02 15:40] VITALS: BP 132/84
--- NOTE | 2019-10-02 19:11 | NUR ---
WALKING ROUNDS PERFORMED, RECEIVED PT LAYING FOWLERS IN BED, AAOX3, RR EVEN AND NON-LABORED, ON ROOM AIR. NGT TO LIWS. PT REPORTS PAIN TO ANTERIOR ABD. LEFT PT LAYING FOWLERS IN BED, BED IN LOW LOCKED POSITION, SIDE RAILS UPX2, CALL LIGHT AND PHONE WITHIN REACH.
[2019-10-02 20:20] VITALS: BP 121/90
--- NOTE | 2019-10-02 20:20 | NUR ---
PT REPORTS PAIN TO (L) FA IV. IV NOTED TO BE RED. IV DISCONTINUED, CATHETER TIP INTACT. PRESSURE AND DRESSING APPLIED.
[2019-10-02] MEDS: THIAMINE HCL INJ 100 MG/ML 2ML VIAL IV SCH (20:30)
[2019-10-02] MEDS ORDERED: RIFAXIMIN 550 MG TABLET PO SCH (23:01)
[2019-10-03] VITALS (8 sets, daily range): BP systolic 115–131; BP diastolic 77–92
[2019-10-03] MEDS: METRONIDAZOLE 500MG/NS 100ML 100 ML IV SCH ×5 (00:15→23:24)
[2019-10-03] MEDS: ONDANSETRON HCL INJ 2MG/ML 2ML 2 MG/ML VIAL IV PRN ×5 (01:10→20:05)
[2019-10-03] MEDS: MORPHINE SULFATE INJ 4 MG/ML INJ 1ML IV PRN ×6 (01:10→23:05)
[2019-10-03] MEDS: CIPROFLOXACIN 400 MG/D5W 200ML 200 ML IV SCH ×2 (01:30→14:00)
[2019-10-03] MEDS ORDERED: PHYTONADIONE 10 MG/ML AMP SQ ONE (02:00)
[2019-10-03] MEDS ORDERED: THIAMINE HCL INJ 100 MG/ML 2ML VIAL ONE (02:31)
[2019-10-03] MEDS ORDERED: MULTIVITAMINS INJECTION ONE (02:31)
[2019-10-03] MEDS ORDERED: FOLIC ACID 5 MG/ML VIAL ONE (02:31)
[2019-10-03] MEDS ORDERED: SODIUM CHLORIDE 0.9% 1000ML 1,000 ML ONE (02:32)
--- NOTE | 2019-10-03 03:15 | NUR ---
ADDITIONAL IV STARTED TO DISTAL (R) FA 20G FOR BANANA BAG.
[2019-10-03] MEDS: MULTIVITAMINS- 12 INJECTION 10 ML, FOLIC ACID MDV 5 MG, THIAMINE HCL INJ 100 MG in SODI... IV SCH ×2 (03:20→23:05)
[2019-10-03 05:25] LABS: BASOPHILS % 0.5 % (0.0-1.0); EOSINOPHILS # (AUTO) 0.4 (0.0-0.4); EOSINOPHILS % 9.7 % (0.0-6.0); HEMATOCRIT 27.7 % (38.2-49.6); HEMOGLOBIN 8.5 g/dL (14.0-18.0); LYMPHOCYTES # (AUTO) 0.7 (1.0-3.2); LYMPHOCYTES % 16.3 % (18.0-39.1); MEAN CORPUSCULAR HEMOGLOBIN 28.7 pg (28-32); MEAN CORPUSCULAR HGB CONC 30.7 g/dL (31-35); MEAN CORPUSCULAR VOLUME 93.6 fL (81-99); MONOCYTES # (AUTO) 0.5 (0.2-0.8); MONOCYTES % 12.7 % (4.4-11.3); NEUTROPHILS # (AUTO) 2.6 (2.1-6.9); NEUTROPHILS % 60.3 % (38.7-80.0); PLATELET COUNT 51 x10e3/uL (140-360); RED BLOOD COUNT 2.96 x10e6/uL (4.3-5.7); RED CELL DISTRIBUTION WIDTH 29.7 % (11.7-14.4)
[2019-10-03] MEDS: METOCLOPRAMIDE HCL 10 MG/2ML VIAL IV SCH ×4 (05:38→23:24)
[2019-10-03 05:41] LABS: INR 1.4
[2019-10-03 05:48] LABS: ALANINE AMINOTRANSFERASE 7 IU/L (0-55); ALBUMIN 2.2 g/dL (3.5-5.0); ALBUMIN/GLOBULIN RATIO 0.4 (0.8-2.0); ALKALINE PHOSPHATASE 56 IU/L (40-150); ANION GAP 8.7 mmol/L (8-16); BLOOD UREA NITROGEN 16 mg/dL (7-26); BUN/CREATININE RATIO 16 (6-25); CALCIUM 8.1 mg/dL (8.4-10.2); CARBON DIOXIDE 21 mmol/L (22-29); CHLORIDE 113 mmol/L (98-107); CREATININE, SERUM 0.97 mg/dL (0.72-1.25); EST GLOMERULAR FILTRATION RATE > 60 ML/MIN (60-); GLUCOSE 83 mg/dL (74-118); POTASSIUM 3.7 mmol/L (3.5-5.1); SODIUM 139 mmol/L (136-145)
[2019-10-03 06:39] LABS: FERRITIN 200.56 ng/mL (21.81-274.66)
--- NOTE | 2019-10-03 07:00 | NUR ---
BEDSIDE ROUNDS COMPLETE NO DISTRESS NOTED, UPDATED ON POC VOICED UNDERSTANDING, NG TO LEFT NARE WITH GREEN FLUID NOTED, IVF INFUSING TO R FA 20G, BANANA BAG INFUSING TO R WRIST 20G NO SS OF INFILTRATION NOTED, DENIES PAIN AT THIS TIME, NO OTHER CO VOICED CALL LIGHT IN REACH WILL CONTINUE TO MONITOR
[2019-10-03] MEDS: PANTOPRAZOLE 40 MG 10ML VIAL IV SCH ×2 (08:12→17:05)
--- NOTE | 2019-10-03 08:50 | Diagnostic Imaging Report ---
Exam: KUB - 2 views Indication: Bowel Obstruction Comparison: KUB of 10/02/2019, CT abdomen and pelvis of 10/01/2019 Findings: NG tube with tip and side-port in the stomach. Nonobstructive bowel gas pattern. No free air. No acute osseous injury. No abnormal calcification. Impression: Nonobstructive bowel gas pattern. No free air. NG tube with tip and side-port in the stomach. Signed by: Norbert Coleman MD on 10/03/2019 8:47 AM
[2019-10-03] MEDS ORDERED: LORAZEPAM INJ 2 MG/ML VIAL IV PRN (10:45)
[2019-10-03] MEDS: SODIUM CHLORIDE 0.9% 1000ML 1,000 ML IV SCH (15:00)
--- NOTE | 2019-10-03 19:00 | NUR ---
report given to oncoming nurse pt left in stable condition, ng clamped as per ordered,call light in reach will continue to monitor
--- NOTE | 2019-10-03 19:20 | NUR ---
Received patient awake, not in distress, NGT to the right nare clamped, suction canister output at 300ml, dark greenish output. Call light within easy reach, advised to call for assistance as needed.
[2019-10-04] VITALS (8 sets, daily range): BP systolic 112–136; BP diastolic 65–85
[2019-10-04] MEDS ORDERED: PHYTONADIONE 10 MG/ML AMP SQ ONE
--- NOTE | 2019-10-04 01:00 | NUR ---
hooked back to LIWS per MD ordered, irrigated NGT with NS
[2019-10-04] MEDS: CIPROFLOXACIN 400 MG/D5W 200ML 200 ML IV SCH ×2 (01:33→14:42)
--- NOTE | 2019-10-04 05:00 | NUR ---
NGT clamped per MD order, irrigated with NS
[2019-10-04 05:20] LABS: BASOPHILS % 0.7 % (0.0-1.0); EOSINOPHILS # (AUTO) 0.3 (0.0-0.4); EOSINOPHILS % 10.2 % (0.0-6.0); HEMATOCRIT 27.3 % (38.2-49.6); HEMOGLOBIN 8.3 g/dL (14.0-18.0); LYMPHOCYTES # (AUTO) 0.5 (1.0-3.2); LYMPHOCYTES % 17.8 % (18.0-39.1); MEAN CORPUSCULAR HEMOGLOBIN 28.7 pg (28-32); MEAN CORPUSCULAR HGB CONC 30.4 g/dL (31-35); MEAN CORPUSCULAR VOLUME 94.5 fL (81-99); MONOCYTES # (AUTO) 0.4 (0.2-0.8); MONOCYTES % 12.5 % (4.4-11.3); NEUTROPHILS # (AUTO) 1.8 (2.1-6.9); NEUTROPHILS % 58.5 % (38.7-80.0); RED BLOOD COUNT 2.89 x10e6/uL (4.3-5.7); RED CELL DISTRIBUTION WIDTH 29.2 % (11.7-14.4)
[2019-10-04 05:38] LABS: ALANINE AMINOTRANSFERASE 8 IU/L (0-55); ALBUMIN 2.1 g/dL (3.5-5.0); ALBUMIN/GLOBULIN RATIO 0.4 (0.8-2.0); ALKALINE PHOSPHATASE 52 IU/L (40-150); ANION GAP 10.5 mmol/L (8-16); BLOOD UREA NITROGEN 13 mg/dL (7-26); BUN/CREATININE RATIO 16 (6-25); CALCIUM 7.8 mg/dL (8.4-10.2); CARBON DIOXIDE 21 mmol/L (22-29); CHLORIDE 113 mmol/L (98-107); EST GLOMERULAR FILTRATION RATE > 60 ML/MIN (60-); GLUCOSE 73 mg/dL (74-118); POTASSIUM 3.5 mmol/L (3.5-5.1); SODIUM 141 mmol/L (136-145)
[2019-10-04] MEDS: METRONIDAZOLE 500MG/NS 100ML 100 ML IV SCH ×4 (05:49→23:41)
[2019-10-04] MEDS: SODIUM CHLORIDE 0.9% 1000ML 1,000 ML IV SCH ×2 (05:49→12:06)
[2019-10-04] MEDS: MORPHINE SULFATE INJ 4 MG/ML INJ 1ML IV PRN ×4 (05:50→21:20)
[2019-10-04] MEDS: METOCLOPRAMIDE HCL 10 MG/2ML VIAL IV SCH ×4 (05:50→23:41)
[2019-10-04 05:59] LABS: PLATELET COUNT 49 x10e3/uL (140-360)
--- NOTE | 2019-10-04 07:19 | NUR ---
Bedside shift report done with dayshift RN, NGT to be hooked back to suction at 11 AM, patient is comfortable
--- NOTE | 2019-10-04 07:19 | NUR ---
communicated to oncoming RN re plt ct level, no active bleeding noted
--- NOTE | 2019-10-04 08:32 | Diagnostic Imaging Report ---
Exam: Abdominal film Clinical History: Small bowel obstruction, abdominal pain Comparison: Abdominal film 10/03/2019 DISCUSSION: Frontal view of the abdomen shows a nonobstructive bowel gas pattern with mild amount of retained stool predominantly in the ascending colon..There are no dilated, air-filled loops of bowel. There are no abnormal calcifications.No acute bone abnormality. No interval change in enteric tube which has its distal tip coiled in the stomach fundus. IMPRESSION: 1. Nonobstructive bowel gas pattern. Mild retained stool predominantly in the ascending colon. The staff physician below has personally reviewed this exam on the date of dictation. Signed by: Dr. Haim Tucker M.D. on 10/04/2019 8:29 AM
[2019-10-04] MEDS: PANTOPRAZOLE 40 MG 10ML VIAL IV SCH ×2 (08:45→17:41)
[2019-10-04 11:08] LABS: PLATELET ESTIMATE MARKEDLY DECREASED; PLATELET MORPHOLOGY COMMENT NORMAL; RBC MORPHOLOGY COMMENT NORMAL
--- NOTE | 2019-10-04 12:19 | NUR ---
Ngt ryan'kayla and the pt. provided ice chips and instructed to use sparingly.
[2019-10-04] MEDS ORDERED: BISACODYL 10 MG SUPP PR SCH (12:30)
[2019-10-04] MEDS ORDERED: POTASSIUM CHLORIDE 20 MEQ TAB CR PO SCH (12:30)
[2019-10-04] MEDS ORDERED: MINERAL OIL 16OZ PO SCH (12:30)
[2019-10-04] MEDS: MULTIVITAMINS- 12 INJECTION 10 ML, FOLIC ACID MDV 5 MG, THIAMINE HCL INJ 100 MG in SODI... IV SCH (18:23)
--- NOTE | 2019-10-04 19:27 | NUR ---
iv dressing changed
[2019-10-05] VITALS (9 sets, daily range): BP systolic 99–124; BP diastolic 69–83
[2019-10-05] MEDS: CIPROFLOXACIN 400 MG/D5W 200ML 200 ML IV SCH ×2 (01:45→17:00)
[2019-10-05] MEDS: SODIUM CHLORIDE 0.9% 1000ML 1,000 ML IV SCH ×2 (03:44→19:55)
[2019-10-05] MEDS: METRONIDAZOLE 500MG/NS 100ML 100 ML IV SCH ×3 (05:19→18:20)
[2019-10-05] MEDS: METOCLOPRAMIDE HCL 10 MG/2ML VIAL IV SCH ×3 (05:19→18:20)
[2019-10-05 05:20] LABS: BASOPHILS % 0.4 % (0.0-1.0); EOSINOPHILS # (AUTO) 0.2 (0.0-0.4); EOSINOPHILS % 9.9 % (0.0-6.0); HEMATOCRIT 24.8 % (38.2-49.6); HEMOGLOBIN 7.9 g/dL (14.0-18.0); LYMPHOCYTES # (AUTO) 0.5 (1.0-3.2); LYMPHOCYTES % 21.9 % (18.0-39.1); MEAN CORPUSCULAR HEMOGLOBIN 29.9 pg (28-32); MEAN CORPUSCULAR HGB CONC 31.9 g/dL (31-35); MEAN CORPUSCULAR VOLUME 93.9 fL (81-99); MONOCYTES # (AUTO) 0.3 (0.2-0.8); MONOCYTES % 13.3 % (4.4-11.3); NEUTROPHILS # (AUTO) 1.3 (2.1-6.9); NEUTROPHILS % 54.1 % (38.7-80.0); RED BLOOD COUNT 2.64 x10e6/uL (4.3-5.7); RED CELL DISTRIBUTION WIDTH 29.1 % (11.7-14.4)
[2019-10-05 05:41] LABS: ALANINE AMINOTRANSFERASE 7 IU/L (0-55); ALBUMIN 1.9 g/dL (3.5-5.0); ALBUMIN/GLOBULIN RATIO 0.4 (0.8-2.0); ALKALINE PHOSPHATASE 46 IU/L (40-150); ANION GAP 10.5 mmol/L (8-16); BLOOD UREA NITROGEN 9 mg/dL (7-26); BUN/CREATININE RATIO 13 (6-25); CALCIUM 7.6 mg/dL (8.4-10.2); CARBON DIOXIDE 21 mmol/L (22-29); CHLORIDE 109 mmol/L (98-107); CREATININE, SERUM 0.71 mg/dL (0.72-1.25); EST GLOMERULAR FILTRATION RATE > 60 ML/MIN (60-); GLUCOSE 71 mg/dL (74-118); MAGNESIUM 1.3 MG/DL (1.3-2.1); POTASSIUM 3.5 mmol/L (3.5-5.1); SODIUM 137 mmol/L (136-145)
[2019-10-05 05:44] LABS: PLATELET COUNT 39 x10e3/uL (140-360)
--- NOTE | 2019-10-05 05:44 | NUR ---
CALLED MD GÓMEZ REGARDING CRITICAL LAB VALUE. AWAITING CALL BACK.
--- NOTE | 2019-10-05 05:53 | NUR ---
ALERT AND ORIENTED. RESTING IN BED. BED LOCKED AND LOW POSITION. CALL LIGHT WITHIN REACH. BED ALARM ACTIVATED. EDUCATION TO CALL NURSE FOR ASSISTANCE PROVIDED.
--- NOTE | 2019-10-05 05:57 | NUR ---
SPOKE TO MD HOPPER REGARDING PLATELET LEVEL 39. NO NEW ORDERS RECEIVED.
--- NOTE | 2019-10-05 07:30 | NUR ---
ASSUMED CARE. AAOX3. ACYANOTIC. RESTING IN BED. NO DISTRESS NOTED. CALL LIGHT IN REACH. SIDE RAILS UP X2. BED LOW AND LOCKED.
[2019-10-05] MEDS: MORPHINE SULFATE INJ 4 MG/ML INJ 1ML IV PRN ×4 (07:45→22:10)
--- NOTE | 2019-10-05 07:47 | NUR ---
REPORT GIVEN TO DAYSHIFT NURSE. ALERT AND ORIENTED . NO SIGNS IV INFILTRATION. BED LOCKED AND IN LOW POSITION. CALL LIGHT WITHIN REACH. BED ALARM ACTIVATED.
[2019-10-05] MEDS: PANTOPRAZOLE 40 MG 10ML VIAL IV SCH ×2 (10:20→17:00)
[2019-10-05] MEDS ORDERED: SODIUM CHLORIDE 0.9% 250ML 250 ML IV NR (11:00)
[2019-10-05] MEDS ORDERED: SODIUM CHLORIDE 0.9% 250ML 250 ML ONE (16:34)
--- NOTE | 2019-10-05 16:59 | NUR ---
PCRB CURRENTLY INFUSING VIA RIGHT FOREARM 20 G IV AT 90 ML/HR. AAOX3. ACYANOTIC. NO DISTRESS NOTED. NO SIGNS OF TRANSFUSION REACTION NOTED. CALL LIGHT IN REACH. SIDE RAILS UP X2. BED LOW.
--- NOTE | 2019-10-05 18:32 | NUR ---
PATIENT REPORTED SMALL, SOFT, FORMED BROWN STOOL
[2019-10-05] MEDS: MULTIVITAMINS- 12 INJECTION 10 ML, FOLIC ACID MDV 5 MG, THIAMINE HCL INJ 100 MG in SODI... IV SCH (19:55)
--- NOTE | 2019-10-05 23:22 | NUR ---
SPOKE TO MD HOPPER REGARDING PAIN MANAGEMENT. NEW ORDERS RECEIVED.
[2019-10-06] VITALS (7 sets, daily range): BP systolic 101–112; BP diastolic 73–78
[2019-10-06] MEDS ORDERED: IOPAMIDOL 370 MG/ML 200 ML INFUS..BTL INJ ONE (00:15)
[2019-10-06] MEDS ORDERED: SODIUM CHLORIDE 0.9% 50ML 50 ML ONE (00:15)
[2019-10-06] MEDS: METRONIDAZOLE 500MG/NS 100ML 100 ML IV SCH (00:41)
[2019-10-06] MEDS: METOCLOPRAMIDE HCL 10 MG/2ML VIAL IV SCH ×4 (00:41→17:04)
--- NOTE | 2019-10-06 01:12 | Diagnostic Imaging Report ---
EXAM: CT Abdomen and Pelvis WITH contrast INDICATION: Abdominal pain. COMPARISON: 10/01/19. TECHNIQUE: Abdomen and pelvis were scanned utilizing a multidetector helical scanner from the lung base to the pubic symphysis after administration of IV contrast. Coronal and sagittal reformations were obtained. Routine protocol was performed. Scan was performed when during portal venous phase. IV CONTRAST: 100 cc Isovue-370 ORAL CONTRAST: Water RADIATION DOSE: Total DLP: 771.61 mGy*cm Estimated effective dose: (DLP x 0.015 x size factor) mSv COMPLICATIONS: None FINDINGS: LINES and TUBES: None. LOWER THORAX: Bibasilar dependent atelectasis. HEPATOBILIARY: Heterogeneous attenuation. Nodular contour. No focal hepatic lesions. No biliary ductal dilation. GALLBLADDER: No radio-opaque stones or sludge. No wall thickening. SPLEEN: Splenomegaly again observed. PANCREAS: No focal masses or ductal dilatation. ADRENALS: No adrenal nodules KIDNEYS/URETERS: Kidneys enhance symmetrically. No hydronephrosis. No cystic or solid mass lesions. No stones. GI TRACT: No abnormal distention, or evidence of bowel obstruction. Mild colonic wall thickening is nonspecific finding, however, may reflect mild portal colopathy. Appendix is normal. PELVIC ORGANS/BLADDER: Unremarkable. LYMPH NODES: No lymphadenopathy. VESSELS: There is being interval improvement of main portal vein thrombosis, with only a linear filling defect in the body on image 24 series 2. Portal vein is enlarged measuring 1.9 cm in diameter. PERITONEUM / RETROPERITONEUM: Redemonstration of small volume of fluid within the peritoneal cavity, with diffuse mild enhancement of the parietal peritoneum which is a nonspecific finding, however, raise concern for infected fluid. BONES: No acute osseous abnormality. SOFT TISSUES: Unremarkable. IMPRESSION: 1. Redemonstration of a small volume ascites with peritoneal surfaces, raising concern for infected fluid/peritonitis. Consider diagnostic paracentesis. 2. Interval resolution of previously described bowel dilatation. No evidence of obstruction. 3. Findings suggestive of early cirrhotic morphology. 4. Near complete resolution of portal vein thrombosis. Signed by: Dr. Ya Rodriguez M.D. on 10/06/2019 1:08 AM
[2019-10-06] MEDS: CIPROFLOXACIN 400 MG/D5W 200ML 200 ML IV SCH ×2 (01:52→14:30)
[2019-10-06] MEDS: SODIUM CHLORIDE 0.9% 1000ML 1,000 ML IV SCH ×2 (03:02→17:04)
[2019-10-06] MEDS ORDERED: CEFTRIAXONE SOD 1 GM/NS 50 ML 50 ML IV STA (03:44)
[2019-10-06] MEDS: CEFTRIAXONE SOD 1 GM/NS 50 ML 50 ML IV SCH (03:45)
--- NOTE | 2019-10-06 04:27 | NUR ---
SPOKE TO MD Victorina GUTHRIE. AWARE IR WILL BE AVAILABLE FOR US GUIDED PARACENTESIS ON FRIDAY 10/06.
--- NOTE | 2019-10-06 07:18 | NUR ---
REPORT GIVEN TO DAYSHIFT NURSE. RESTING IN BED. ALERT AND ORIENTED. NO SIGNS IV INFILTRATION. BED LOCKED AND IN LOW POSITION. CALL LIGHT WITHIN REACH. BED ALARM ACTIVATED.
[2019-10-06] MEDS: PANTOPRAZOLE 40 MG 10ML VIAL IV SCH ×2 (09:03→16:38)
[2019-10-06] MEDS: HYDROMORPHONE 1MG/1ML INJ IV PRN ×4 (09:03→21:00)
[2019-10-06 09:26] LABS: EOSINOPHILS # (AUTO) 0.3 (0.0-0.4); EOSINOPHILS % 10.3 % (0.0-6.0); HEMATOCRIT 28.4 % (38.2-49.6); HEMOGLOBIN 9.1 g/dL (14.0-18.0); LYMPHOCYTES # (AUTO) 0.5 (1.0-3.2); LYMPHOCYTES % 16.5 % (18.0-39.1); MEAN CORPUSCULAR HEMOGLOBIN 29.5 pg (28-32); MEAN CORPUSCULAR VOLUME 92.2 fL (81-99); MONOCYTES # (AUTO) 0.4 (0.2-0.8); MONOCYTES % 15.1 % (4.4-11.3); NEUTROPHILS # (AUTO) 1.6 (2.1-6.9); NEUTROPHILS % 56.4 % (38.7-80.0); RED BLOOD COUNT 3.08 x10e6/uL (4.3-5.7)
[2019-10-06 09:48] LABS: ALANINE AMINOTRANSFERASE 8 IU/L (0-55); ALBUMIN 1.9 g/dL (3.5-5.0); ALBUMIN/GLOBULIN RATIO 0.4 (0.8-2.0); ALKALINE PHOSPHATASE 48 IU/L (40-150); ANION GAP 10.3 mmol/L (8-16); BLOOD UREA NITROGEN < 5 mg/dL (7-26); CALCIUM 7.4 mg/dL (8.4-10.2); CARBON DIOXIDE 20 mmol/L (22-29); CHLORIDE 107 mmol/L (98-107); CREATININE, SERUM 0.77 mg/dL (0.72-1.25); EST GLOMERULAR FILTRATION RATE > 60 ML/MIN (60-); GLUCOSE 105 mg/dL (74-118); POTASSIUM 3.3 mmol/L (3.5-5.1); SODIUM 134 mmol/L (136-145)
[2019-10-06 09:49] LABS: BUN/CREATININE RATIO 6 (6-25)
[2019-10-06 09:57] LABS: PLATELET COUNT 54 x10e3/uL (140-360)
[2019-10-06] MEDS: MULTIVITAMINS- 12 INJECTION 10 ML, FOLIC ACID MDV 5 MG, THIAMINE HCL INJ 100 MG in SODI... IV SCH (13:00)
--- NOTE | 2019-10-06 15:08 | NUR ---
INFORMED BY RADIOLOGY THAT RADIOLOGIST DETERMINED THAT PATIENT DOES NOT HAVE ENOUGH FLUID ON ABDOMEN PER CT SCAN FOR PARACENTESIS. 2ND ATTEMPT TO NOTIFY DR. Rajendra GUTHRIE OF FINDINGS AT 5100.
[2019-10-06] MEDS ORDERED: POTASSIUM CHLORIDE 20MEQ/100ML 100 ML IV ONE ×5 (15:30→21:00)
[2019-10-07] VITALS (7 sets, daily range): BP systolic 103–120; BP diastolic 61–95
[2019-10-07] MEDS: METOCLOPRAMIDE HCL 10 MG/2ML VIAL IV SCH ×4 (00:53→17:20)
[2019-10-07] MEDS: CIPROFLOXACIN 400 MG/D5W 200ML 200 ML IV SCH ×2 (02:35→12:49)
[2019-10-07] MEDS: CEFTRIAXONE SOD 1 GM/NS 50 ML 50 ML IV SCH (04:33)
[2019-10-07] MEDS: HYDROMORPHONE 1MG/1ML INJ IV PRN ×5 (04:45→20:39)
[2019-10-07 05:12] LABS: BASOPHILS % 0.4 % (0.0-1.0); EOSINOPHILS # (AUTO) 0.3 (0.0-0.4); EOSINOPHILS % 12.4 % (0.0-6.0); HEMATOCRIT 28.5 % (38.2-49.6); LYMPHOCYTES # (AUTO) 0.6 (1.0-3.2); LYMPHOCYTES % 22.8 % (18.0-39.1); MEAN CORPUSCULAR HEMOGLOBIN 29.2 pg (28-32); MEAN CORPUSCULAR HGB CONC 31.6 g/dL (31-35); MEAN CORPUSCULAR VOLUME 92.5 fL (81-99); MONOCYTES # (AUTO) 0.4 (0.2-0.8); NEUTROPHILS # (AUTO) 1.2 (2.1-6.9); RED BLOOD COUNT 3.08 x10e6/uL (4.3-5.7); RED CELL DISTRIBUTION WIDTH 28.4 % (11.7-14.4)
[2019-10-07 05:20] LABS: PLATELET COUNT 47 x10e3/uL (140-360)
--- NOTE | 2019-10-07 05:28 | NUR ---
Notified Dr Harrison ( Covering for Dr Estrada) regarding lab alert: Platelets 47. Platelets yesterday 54. No New orders.
[2019-10-07 05:34] LABS: ALANINE AMINOTRANSFERASE 9 IU/L (0-55); ALBUMIN/GLOBULIN RATIO 0.4 (0.8-2.0); ALKALINE PHOSPHATASE 47 IU/L (40-150); ANION GAP 7.4 mmol/L (8-16); BLOOD UREA NITROGEN < 5 mg/dL (7-26); CALCIUM 7.2 mg/dL (8.4-10.2); CARBON DIOXIDE 22 mmol/L (22-29); CHLORIDE 108 mmol/L (98-107); CREATININE, SERUM 0.77 mg/dL (0.72-1.25); EST GLOMERULAR FILTRATION RATE > 60 ML/MIN (60-); GLUCOSE 109 mg/dL (74-118); POTASSIUM 3.4 mmol/L (3.5-5.1); SODIUM 134 mmol/L (136-145)
[2019-10-07 05:45] LABS: BUN/CREATININE RATIO 6 (6-25)
[2019-10-07] MEDS: SODIUM CHLORIDE 0.9% 1000ML 1,000 ML IV SCH (05:48)
--- NOTE | 2019-10-07 07:15 | NUR ---
Bedside report and walking rounds completed with oncoming nurse. Patient in bed with call light within reach. No issues or concerns noted.
--- NOTE | 2019-10-07 07:16 | NUR ---
received change of shift report from PM nurse. all safety measures in place. pt in stable condition. Addendum: 10/07/19 at 0818 by Svitlana Hines RN informed by PM nurse that ordered NS and banana bag IVF to run simultaneously. will continue to monitor.
--- NOTE | 2019-10-07 09:02 | NUR ---
pt going to Radiology with tech; left in stable condition.
--- NOTE | 2019-10-07 09:13 | Diagnostic Imaging Report ---
EXAM: Limited abdominal ultrasound INDICATION: Ascites, abdominal pain COMPARISON: Abdominal ultrasound 09/02/2019 TECHNIQUE: Transverse and longitudinal images of the right upper quadrant abdomen were obtained FINDINGS: Limited sonographic evaluation of the 4 quadrants of the abdomen and straight no ascites. IMPRESSION: No ascites. Patient is not eligible for paracentesis at this time. Signed by: Norbert Coleman MD on 10/07/2019 9:10 AM
[2019-10-07] MEDS: PANTOPRAZOLE 40 MG 10ML VIAL IV SCH ×2 (09:32→17:20)
--- NOTE | 2019-10-07 09:38 | Diagnostic Imaging Report ---
Exam: KUB - 2 views Indication: Bowel Obstruction Comparison: CT abdomen and pelvis of 10/06/2019, KUB of 10/03/2019 Findings: Nonobstructive bowel gas pattern. No free air. No abnormal calcifications. No acute osseous injury. Impression: Nonobstructive bowel gas pattern. No free air. Signed by: Norbert Coleman MD on 10/07/2019 9:35 AM
--- NOTE | 2019-10-07 09:40 | NUR ---
[employer] FROM [employer] CALLED TO OFFER ASSISTANCE WITH DISCHARGE PLANNING [phone]
--- NOTE | 2019-10-07 16:15 | NUR ---
SPOKE WITH DR HOPPER WHO STATES OKAY TO DISCHARGE PT ONCE PT IS CLEARED FROM DR. Victorina GUTHRIE. PT ALREADY CLEARED BY DR. Vignesh MURILLO AND RONDA.
--- NOTE | 2019-10-07 16:26 | NUR ---
Nutrition Screen Note RD Recommendation for Physician: -Recommend advancing diet to GI soft/low sodium diet when medically appropriate Plan of Care: RD following, monitoring for tolerance and adequacy Nutrition reason for involvement: Length of stay Primary Diagnose(s): abdominal pain, alcohol abuse, ascites, GI bleed, portal vein thrombosis, small bowel obstruction PMH: chronic hepatitis C, chronic liver disease, cirrhosis, portal hypertension, HTN, alcohol abuse Ht: 69 in Wt:223 lb BMI: 32.9 kg/m2 IBW:[address] Assessment: (10/07/19) Chart reviewed. Labs and meds reviewed. Pt is a 49 year old male admitted with abdominal pain, alcohol abuse, ascites, GI bleed, portal vein thrombosis, and small bowel obstruction. Pt is currently NPO, but pt was on a regular diet yesterday with 100% meal intake. Pt also consumed 100% of full liquids on 10/04. Per chart, there are no reports of unintentional weight loss. Recommend resuming diet when medically appropriate. Will continue to monitor Current Diet: NPO Malnutrition Evaluation (10/07/19) The patient does not meet criteria for a specified degree of malnutrition at this time. Will re-evaluate at follow-up as appropriate. Diet Education Needs Assessment: Diet education not indicated, pt is NPO Nutrition Care Level: low Signed: Lolis Mcintyre, RD, LD
--- NOTE | 2019-10-07 17:59 | Consultation ---
DATE OF CONSULTATION: REASON FOR CONSULTATION: Concerned about infection. HISTORY OF PRESENT ILLNESS: This is a 49-year-old, who comes into the emergency room on 10/01 with abdominal pain. The patient has history of portal vein thrombosis. He is on Eliquis. The patient comes in with abdominal discomfort. He has been here since then. There is concern of a sepsis. The patient has no fever, no chills. He is just weak in general. PAST MEDICAL HISTORY: He does have underlying history of hepatitis C, chronic liver disease, liver cirrhosis, portal hypertension, and alcoholism in the past. HOME MEDICATIONS: He is on apixaban 2.5 twice a day, ascorbic acid. He was on Omnicef, magnesium, and tramadol. ALLERGIES: NKA. SOCIAL HISTORY: Currently, there is no smoking, drug abuse, or alcohol abuse. FAMILY HISTORY: Noncontributory. REVIEW OF SYSTEMS: He is just weak in general. There is no specific pain. The patient was admitted. He was seen by Hematology/Oncology, Dr. Ibarra. The patient who had a CT of abdomen and pelvis when he first came, which showed multiple abdominal findings. CAT scan showed small bowel obstruction. Improvement portal vein thrombosis with loculated cystitis. The patient had a followup CAT scan, which showed a small volume ascites, resolution of bowel dilatation and cirrhotic liver. The patient had no blood cultures, but had ascitic culture. His white count was 2.5, hemoglobin 9.0, his platelets were 270. His WBC in his procedure fluid was 220. The patient has been on ciprofloxacin and Rocephin. PHYSICAL EXAMINATION: GENERAL: He is currently alert. VITAL SIGNS: Stable. He had one time temperature 106, but otherwise no fever. HEENT: Normocephalic. NECK: Supple. CHEST: Few crackles. HEART: S1, S2. ABDOMEN: Soft, distended. EXTREMITIES: No edema. SKIN: No rash. IMPRESSION: 1. The patient is stable. I am not so sure about this fever, which he had just one time. The procedure fluid did not reveal infection. I would suggest to hold off Cipro and also Rocephin. He received more than 5 days of antibiotic. He also has small bowel obstruction which seems to be resolved. 2. Liver cirrhosis. 3. Thrombosis. At present time, on observation. His fever could be drug related versus other. We will follow. MD AVI Thompson/KEYONA /[id number]
--- NOTE | 2019-10-07 19:10 | NUR ---
CHANGE OF SHIFT REPORT GIVEN TO PM NURSE. PT AWAKE, ALERT, NO COMPLAINTS AT THIS TIME, IN STABLE CONDITION.
[2019-10-08] VITALS: BP 104/56
[2019-10-08] MEDS: METOCLOPRAMIDE HCL 10 MG/2ML VIAL IV SCH ×4 (00:39→15:00)
[2019-10-08] MEDS: SODIUM CHLORIDE 0.9% 1000ML 1,000 ML IV SCH ×3 (00:51→15:00)
[2019-10-08] MEDS: HYDROMORPHONE 1MG/1ML INJ IV PRN ×4 (00:51→15:00)
[2019-10-08 04:00] VITALS: BP 124/86
--- NOTE | 2019-10-08 07:05 | NUR ---
RECEIVED PT RESTING QUIETLY. NO CO PAIN AT THIS TIME.
--- NOTE | 2019-10-08 07:42 | Progress Note ---
DATE: SUBJECTIVE: The patient came in with thrombocytopenia, abdominal pain, and abdominal distention. The patient is doing better. Has a history of hepatitis. The patient also has a history of alcohol intake. Currently doing good. No complaints and is to be discharged today if he can tolerate his diet. OBJECTIVE: VITAL SIGNS: Temperature 98.2, pulse of 102, respirations 18, blood pressure is 124/86, and pulse ox is 99%. HEENT: Normocephalic and atraumatic. Pupils reactive to light and accommodation. CVS: S1 and S2 normal. Regular rhythm. ABDOMEN: Slightly distended. EXTREMITIES: No clubbing. No cyanosis. Positive edema. LABORATORY VALUES: White count 2.50 from yesterday, hemoglobin of 9, hematocrit 28.5, and platelet count is 47. Coags; INR is 1.40. Chemistries; sodium of 134, potassium of 3.4, BUN of less than 5, creatinine is 0.77, and total bilirubin is 1.5. MICROBIOLOGY: Gram stain in the fluid shows no growth after 5 days from ascites fluid. RADIOGRAPHIC DATA: Abdominal x-ray shows from the shows nonobstructive bowel pattern. ASSESSMENT: Mr. Tu Cason with alcoholic hepatitis, hepatitis C, history of chronic alcoholism, anemia of chronic disease, thrombocytopenia secondary to cirrhosis, portal hypertension, hypoalbuminemia, and superior mesenteric vein thrombosis, which is better and ascites. PLAN: Antibiotics were currently stopped secondary to ascitic fluid, not having any cultures negative. Continue current plan. Okay to discharge that the patient is being able to tolerate diet. Further recommendation per clinical course. The patient will follow up with his primary care physician in 2 days. This has been recommended to the patient to go and followup this time. The patient has been encouraged to go and follow up with his PCP in about 2 days. MD ALEX GoreJ/MODL /[id number]
[2019-10-08 08:27] VITALS: BP 124/83
[2019-10-08] MEDS: PANTOPRAZOLE 40 MG 10ML VIAL IV SCH (09:00)
[2019-10-08 10:49] VITALS: BP 128/83
[2019-10-08 12:20] VITALS: BP 95/57
[2019-10-08 16:34] VITALS: BP 108/64
--- NOTE | 2019-10-08 16:45 | NUR ---
DISCHARGE AT THIS TIME OUT VIA WC BY STAFF
--- NOTE | 2019-10-08 20:20 | Progress Note ---
DATE: SUBJECTIVE: Mr. Cason is doing well. No new complaint. REVIEW OF SYSTEMS: Otherwise unremarkable. PHYSICAL EXAMINATION: GENERAL: He is currently alert and oriented. VITAL SIGNS: Stable, currently afebrile. HEENT: He is not icteric. NECK: Supple. CHEST: Clear. HEART: S1 and S2. No murmur. ABDOMEN: Soft. IMPRESSION: Alcoholic hepatitis, hepatitis C. Stable from Infectious Disease point of view. Off antibiotic. Discharge planning per others. Discussed with medical team. No new recommendations. MD AVI Thompson/MODL /[id number]
--- OUTSIDE RECORDS SUMMARY | 2019-10-11 14:22 | XMS REPORT | Continuity of Care Document ---
Author Author [facility] t Organization [facility] Address [address] [place] [address] Phone Unavailable Care Team Providers Care Carpenter Repairer Name Role Phone Jennifer GARRISON III PCP Greg GÓMEZ Attphys Unavailable DAVI KELLY Attphys Unavailable Irma WANG Attphys Unavailable Jonelle Solitario Attphys Unavailable Jayleen Pagan Attphys Unavailable Shelley Wright Attphys Unavailable Shelley Cisneros Westley Attphys Unavailable Carpio, Deborath Attphys Unavailable Mirella MedAdherAline lei Attphys Unavailab Vane Patel Attphys Status, Fax Attphys Unavailable Candy Saldivar Attphys Unavailable Sisi Porter Attphys Unavailable Hiro Lal Attphys Unavailable Jessica Maguire Attphys Unavailable Julius Ta Attphys Unavailable Phillips, G Keli Attphys Unavailable Puneet Banks Attphys Nabeel Valero Nigel Attphys Bill Berger Attphys Eli Delgado Attphys Casi Justice Sahanh Attphys ROME HOPPER Attphys Unavailable Greg GÓMEZ Admphys Unavailable DAVI KELLY Admphys Unavailable Nabeel Valero Nigel Admphys Tamika Guzman Admphys ROME HOPPER Admphys Unavailable Vane Du Unavailable Payers Payer Name Policy Type Policy Number Effective Date Expiration Date Greg kidd [facility] Medicare Complete [id number] 2019 00:00:00 [facility] Problems Condition Name Condition Details Condition Category Status Onset Date Resolution Date Last Treatment Date Treating Clinician Comments Source Hematuria Condition Active 2019-03-29 00:00:00 11:29:13 [facility] Chronic pain Condition Active 2019-02-27 00:00:00 02-27 09:46:22 [facility] Active 2019-02-27 00:00:00 2019-02-27 09:46:22 [facility] Hepatitis C, chronic Condition Active 2019-02-27 00:00:00 2019-02-27 09:46:22 [facility] Liver cirrhosis Condition Active 2019-02-27 00:00:00 28-02-18 09:46:22 [facility] ABDOMINAL PAIN ABDO YOLIS PAIN Active 02/26/2019 [facility] Active 2019-02-26 00:00:00 2019-02-26 16:11:00 [facility] ABD PAIN ABD PAIN Active 08/24/2018 [facility] Active 2018-08-24 00:00:00 2018-08-24 21:51:00 [facility] BLOODY STOOL/STOMACH PAIN BLOO DY STOOL/STOMACH PAIN Active 06/01/2018 [facility] Active 2018-06-01 00:00: 00 2018-06-01 10:32:00 [facility] GIB, LIVER CIRRHOSIS, ABD PAIN, PORTAL V GIB, LIVER CIRRHOSIS, ABD PAIN, PORTAL V Active 06/01/2018 [facility] Active 2018-06-01 00:00:00 2018-06-06 16:57:00 [facility] HEADACHE HEAD ACHE Active 04/18/2018 [facility] Active 2018-04-18 00:00:00 2019-07-01 13:22:00 [facility] OTHER OTHE R Active 09/16/2017 [facility] Diagnosis Active 2017-09-16 00:00:00 2017-11-16 10:48:00 [facility] Abdominal pain Abdominal pain Problem Active [facility] Alcoholic cirrhosis of liver with ascites Alcoholic ci rrhosis of liver with ascites Problem Active [facility] Fever Fever Problem Active [facility] Portal vein thrombosis Problem Active [facility] Pancytopenia Problem Active [facility] Hyponatremia Problem Active [facility] Gastrointestinal hemorrhage Problem Active [facility] Small bowel obstruction Problem Active [facility] Abdominal ascites Problem Active [facility] Headache Head ache 11/05/2018 [facility] 2018-11-05 16:44:23 [facility] Liver disease, unspecified Tonya er disease, unspecified 11/05/2018 [facility] Problem 2018-11-05 16:44:2 3 [facility] Chest pain, unspecified Ches t pain, unspecified 11/05/2018 [facility] 2018-11-05 16:44:23 [facility] GASTROINTESTINAL HEMORRHAGE, UNSPECIFIED GASTROINTESTINAL HEMORRHAGE, UNSPECIFIED Active [facility] Diagnosis Active 2018-06-06 16:57:00 Nash Dos Santos UNSPECIFIED CIRRHOSIS OF LIVER UNSPECIFIED CIRRHOSIS OF LIVER Active [facility] Diagnosis Active 201 11-13-26 16:57:00 [facility] UNSPECIFIED ABDOMINAL PAIN UNS PECIFIED ABDOMINAL PAIN Active [facility] Diagnosis Active 2018-06-06 16:57:0 0 Tahira Dos Santos Encounter for examination and observation following ot her accident Encounter for examination and observation following other accident 04/24/2018 11/05/2018 [facility] Problem 2018-04-24 05:08:12 2018 16:44:23 2018-11-05 16:44:23 Tahira Dos Santos Unspecified abdominal pain Uns pecified abdominal pain 09/16/2017 09/19/2017 [facility] [place] 2017-09-16 05:00 :00 2017-09-19 01:50:07 2017-09-19 01:50:07 Tahira lopez Allergies, Adverse Reactions, Alerts Allergy Name Allergy Type Status Severity Reaction(s) Onset Date Inacti ve Date Treating Clinician Comments Source No Known Allergies DA Active U 2019-01-15 00:00:00 [facility] No Known Allergies DA Active U 2018-05-05 00:00:00 [facility] No Known Allergies DA Active U 2018-04-09 00:00:00 [facility] No Known Allergies DA Active U 2017-12-18 00:00:00 [facility] No Known Allergies DA Active U 2017-08-03 00:00:00 [facility] No Known Allergies DA Active U 2017-06-03 00:00:00 [facility] No Known Medication Allergies No Known Medication Allergies Active Tahira Dos Santos Social History Social Habit Start Date Stop Date Quantity Comments Source time of call 2019-06-11 12:03:49 2019-06-11 12:03:49 06/11/2019 12:04 PM [facility] is there any chance that you could be ? 2019-03-28 0 8:32:24 2019-03-28 08:32:24 No [facility] drug use, illicit 2019-03-28 08:32:24 2019-03-28 08:32:24 Never [facility] alcohol use 2019-03-28 08:32:24 2019-03-28 08:32:24 Previously [facility] passive cigarette smoke exposure 2019-03-28 08:32:24 2019-03-28 08:32 :24 No [facility] social history reviewed E&M 2019-03-28 08:32:24 2019-03-28 08:32 :24 reviewed today [facility] Occupation #1 2019-02-27 08:37:46 2019-02-27 08:37:46 [facility] 2019-02-27 08:37:46 2019-02-27 08:3 7:46 No [facility] Social History 2018-06-02 00:41:01 2018-06-02 00:41:01 Tahira Dos Santos Sex Assigned At 1970 00:00:00 1970 00:00:00 Male [facility] Smoking Status Start Date Stop Date Source Smokes tobacco daily (finding) 2019-03-28 08:32:24 [facility] Medications Ordered Medication Name Filled Medication Name Start Date Stop Da te Current Medication? Ordering Clinician Indication Dosage Frequency Signature (SIG) Comments Components Source Cefdinir (Omnicef) 300 Mg CAPSULE Cefdinir (Omnicef) 300 Mg CAPSULE 2019-09-02 09:43:00 Yes 300 Twice A Day [facility] Furosemide Furosemide 2019-09-02 09:41:00 Yes 20 Twi ce A Day [facility] Magnesium Oxide (Mag-Oxide) 400 Mg TABLET Magnesium Ox kassy (Mag-Oxide) 400 Mg TABLET 2019-09-02 09:41:00 Yes 400 Twice A Day [facility] Midodrine Hcl Midodrine Hcl 2019-09-02 09:41:00 Yes 10 Three Times A Day At 8:00AM, 12:00PM, And 4:00PM [facility] Potassium Chloride (K Dur*) 10 Meq TABCR Potassium Chl oride (K Dur*) 10 Meq TABCR 2019-09-02 09:41:00 Yes 20 Twice A Day [facility] Apixaban (Eliquis) 2.5 Mg TABLET Apixaban (Eliquis) 2.5 Mg T ABLET 2019-08-29 12:22:00 Yes 2.5 Twice A Day [facility] Ascorbic Acid Ascorbic Acid 2019-08-29 12:22:00 Yes 500 Daily [facility] Docusate Sodium Docusate Sodium 2019-08-29 12:22:00 Yes 100 Daily [facility] Ferrous Sulfate Ferrous Sulfate 2019-08-29 12:22:00 Yes 325 Daily [facility] Pantoprazole Sodium (Protonix) 40 Mg TABLET. Pantopr azole Sodium (Protonix) 40 Mg TABLET. 2019-08-29 12:22:00 Yes 40 Twice Daily Before Meals [facility] Tizanidine Hcl Tizanidine Hcl 2019-08-29 12:22:00 Yes 4 Twice A Day as needed for Muscle Cramps [facility] Tramadol Hcl (Ultram 50MG*) 50 Mg TAB Tramadol Hcl (Ultram 5 0MG*) 50 Mg TAB 2019-08-29 12:22:00 Yes 50 Every 6 Hours as n eeded for Pain [facility] Levofloxacin (Levaquin) 500 Mg TABLET Levofloxacin (Levaquin ) 500 Mg TABLET 2019-08-16 17:45:00 2019-08-24 00:00:00 No 500 Daily [facility] Pantoprazole Sodium (Protonix) 40 Mg TABLET. Pantopr azole Sodium (Protonix) 40 Mg TABLET. 2019-08-16 13:12:2019-09-02 00:00:00 No 40 Daily@0600 [facility] Furosemide (Lasix) 40 Mg TABLET Furosemide (Lasix) 40 Mg TAB LET 2019-08-16 13:12:00 2019-08-29 00:00:00 No 40 Daily [facility] Spironolactone Spironolactone 2019-08-16 13:12:00 2019-08-29 00:00:00 No 50 Daily [facility] Lactulose Lactulose 2019-08-16 13:12:2019-08-24 00:00:00 No 20 Daily [facility] ZOFRAN (ONDANSETRON HCL) 4 MG TABS 2019-03-28 00:00:00 202 00:00:00 No take As Needed 3 times daily for nausea [facility] ZOFRAN (ONDANSETRON HCL) 4 MG TABS 2019-02-27 00:00:00 Yes Vane Ana Laura take 1 tablet 3 times daily for nausea prn [facility] Saline Flush 0.9% 2019-02-26 17:34:00 No Notes: Same as: BD Posiflush Sterile [facility] Saline Flush 0.9% 2018-08-25 02:09:00 No Notes: (Same as: BD Posiflush) [facility] Rocephin 2018-08-04 10:01:00 No 1 gm, Route: IVPB, Drug form: PDR/INJ, ONCE, Dosing Weight 90.909, kg, Priority: STAT, Start date: 08/04/18 5:01:00 CDT, Stop date: 08/04/18 5:01:00 CDT, ABX Indication: Intra-abdominal Infection [facility] Fentanyl 2018-08-04 06:35:00 No 50 microgram, Route: IVP, ONCE, Dosing Weight 90.909, kg, Priority: STAT, Start date: 08/04/18 1:35:00 CDT, Stop date: 08/04/18 1:35:00 CDT [facility] t[facility]anie Zofran 2018-08-04 06:34:00 No 4 mg, Route: IVP, Drug form: INJ, ONCE, Dosing Weight 90.909, kg, Priority: STAT, Start date: 08/04/18 1:34:00 CDT, Stop date: 08/04/18 1:34:00 [facility]T [facility] F[facility] 2018-08-04 06:28:00 No 25 microgram, Route: IVP, ONCE, Dosing Weight 90.909, kg, Priority: STAT, Start date: 08/04/18 1:28:00 CDT, Stop date: 08/04/18 1:28:00 CDT [facility] Octreotide 2018-08-04 06:26:00 No 50 microgram, Route: IV, ONCE, Dosing Weight 90.909, kg, Start date: 08/04/18 1:26:00 CDT, Stop date: 08/04/18 1:26:00 CDT [facility] pantoprazole 2018-08-04 06:26:00 No 80 mg, Route: IVP, ONCE, Dosing Weight 90.909, kg, Priority: STAT, Start date: 08/04/18 1:26:00 CDT, Stop date: 08/04/18 1:26:00 CDT [facility] Sodium Chloride 0.9% (Bolus) IV 2018-08-04 06:26:00 No 1,000 mL, Infuse Over: 1 hr, Route: IV, ONCE, Priority: STAT, Dosing Weight 90.909 kg, Start date: 08/04/18 1:26:00 CDT, Stop date: 08/04/18 1:26:00 CDT [facility] Spironolactone 2018-06-06 14:00:00 No Notes: (Same As: Aldactone) [facility] Furosemide 40 MG Oral Tablet 2018-06-06 14:00:00 No Notes: (Same as: Lasix) May cause GI upset. Give with food or milk. [facility] Folic Acid 2018-06-06 14:00:00 No Notes: (S faheem as: Folvite) [facility] riFAXimin 550 mg oral tablet 2018-06-05 22:30:00 Yes 550 mg = 1 tab, PO, Q12H, # 60 tab, 0 Refill(s), Pharmacy: [facility]/pharmacy #[id number] [facility] Ondansetron 4 MG Oral Tablet [Zofran] 2018-06-05 22:21:00 Y es 4 mg = 1 tab, PO, Q8H, PRN Nausea/vomiting, # 15 tab, 0 Refill(s), Pharmacy: [facility]/pharmacy #[id number] [facility] Lactulose 667 MG/ML Oral Solution 2018-06-05 22:21:00 Yes 10 gm = 15 mL, PO, TID, PRN Titrate to 2-3 soft bowel movements a day, X 30 day, # 900 mL, 0 Refill(s), Pharmacy: [facility]/pharmacy #[id number] [facility] pantoprazole 40 mg oral enteric coated tablet 2018-06-05 22:21:0 0 Yes 40 mg = 1 tab, PO, Before Breakfast, # 3 0 tab, 0 Refill(s), Pharmacy: [facility]/pharmacy #[id number] [facility] tramadol hydrochloride 50 MG Oral Tablet 2018-06-05 16:57:00 Yes 50 mg = 1 tab, PO, Q8H, PRN Pain Score 7-10, X 7 day, # 20 tab, 0 Refill(s) [facility] Ferrlecit 2018-06-05 14:00:00 No Notes: (sodium ferric gluconate complex (elemental iron) 62.5 mg/5 ml INJ) "Limited stability. Use immediately after admixture" (Same as: Ferrlecit) MEDICATION WASTE Product Size: 62.5 mg Product Wasted: ___ mg Angeles Friedman Flagyl 2018-06-05 02:00:00 No Notes: (Same as: Flagyl) Take with food/ avoid alcohol [facility] Golytely 2018-06-04 19:47:00 No Notes: ([facility] e as: Nulytely) [facility] Bisacodyl 2018-06-04 19:47:00 No Notes: (Same As: Dulcolax, Correctol) (Do Not Crush) "Do Not Crush" [facility] Hydromorphone 2018-06-04 17:43:00 No Notes: (Same as: Dilaudid) [facility] Lactulose 667 MG/ML Oral Solution 2018-06-04 02:00:00 No Notes: (Same as:Chronulac) [facility] rifaximin 2018-06-04 02:00:00 No Notes: [facility] as: Xifaxan [facility] Lactulose 667 MG/ML Oral Solution 2018-06-03 14:00:00 No Notes: (Same as:Chronulac) [facility] pantoprazole 2018-06-03 12:30:00 No Notes: Tablet should not be chewed or crushed. (Same as: Protonix) [facility] lidoc[facility] ([facility]ES[facility] 2018-06-02 19:57:00 No Route: IV, Drug form: INJ, ONCE, Stop date: 06/02/18 14:57:00 CDT [facility] propofol (ANES) 2018-06-02 19:57:00 No Route: IV, Drug form: INJ, ONCE, Stop date: 06/02/18 14:57:00 CDT [facility] Sodium Chloride 0.9% IV 1,000 mL 2018-06-02 19:36:00 No 1,000 mL, Rate: 25 ml/hr, Infuse over: 40 hr, Route: IV, Dosing Weight 87.091 kg, Total Volume: 1,000, Start date: 06/02/18 14:36:00 CDT, Duration: 30 day, Stop date: 07/02/18 14:35:00 CDT, 2.08, m2 [facility] Rocephin 2018-06-02 06:00:00 No 1 gm, Route: IVPB, Drug form: PDR/INJ, [id number], Dosing Weight 87.091, kg, Start date: 06/02/18 1:00:00 CDT, Duration: 5 day, Stop date: 06/06/18 1:00:00 CDT, ABX Indication: Intra- abdominal Infection [facility] potassium chloride 2018-06-02 05:00:00 No Notes: Infuse at a rate of 10 mEq/hr. (Same as: KCL) [facility] tiffanie Potassium Chloride 2018-06-02 04:04:00 No 20 mEq, Route: IVPB, ONCE, Dosing Weight 87.091, kg, Start date: 06/01/18 23:04:00 CDT, Stop date: 06/01/18 23:04:00 CDT [facility] Ceftriaxone 2018-06-02 04:00:00 No Notes: (Same As: Rocephin). Use with 100 mL NS and infuse over 30 min MEDICATION WASTE Product Size: 1000 mg Product Wasted: ___ mg [facility] octreotide 1,250 microgram + Sodium Chloride 0.9% IV 248.75 mL 2018-06-02 03:26:00 No 248.75 mL, Rate: 10 ml/hr, Infuse over: 25 hr, Route: IV, Dosing Weight 87.091 kg, Total Volume: 250, Start date: 06/01/18 22:26:00 CDT, Duration: 30 day, Stop date: 07/01/18 22:25:00 CDT, 2.08, m2 [facility] Octreotide 2018-06-02 03:26:00 No Notes: (Same As: SandoSTATIN). Refrigerate. MEDICATION WASTE Product Size: 50 microgram Product Wasted: ___ microgram [facility] Flagyl 2018-06-02 02:00:00 No Notes: (Same as: Flagyl) Avoid alcohol. [facility] Tramadol 2018-06-02 01:13:00 No Notes: Not to exceed 400mg/day. (Same As: Ultram) [facility] Hydromorphone 2018-06-02 01:13:00 No Notes: Same as: Dilaudid [facility] Ondansetron 2018-06-02 01:12:00 No Notes: (Same as: Zofran) MEDICATION WASTE Product Size: 4 mg Product Wasted: ___ mg [facility] Melatonin 2018-06-02 01:12:00 No Notes: (Sa me as: Melatonin) [facility] Bisacodyl 2018-06-02 01:12:00 No Notes: (Same As: Dulcolax, Bisco-Lax) [facility] Dextrose 50% Syringe 2018-06-02 01:12:00 No 12.5 gm, 25 mL, Route: IVP, Drug Form: INJ, Dosing Weight 87.091, kg, PRN, PRN Blood Glucose Results, Start date: 06/01/18 20:12:00 CDT, Duration: 30 day, Stop date: 07/01/18 20:11:00 CDT [facility] Glucagon 2018-06-02 01:12:00 No 1 mg, Route: IM, Drug form: PDR/INJ, PRN, Dosing Weight 87.091, kg, PRN Blood Glucose Results, Start date: 06/01/18 20:12:00 CDT, Duration: 30 day, Stop date: 07/01/18 20:11:00 CDT [facility] Calcium Gluconate 2018-06-02 01:11:00 No Notes: WASTE: F[facility]P - Sink[facility] 2018-06-02 01:11:00 No Notes: WASTE: F/P - Sink; [facility] Potassium Chloride 2018-06-02 01:11:00 No Notes: (Same as: K-Dur 20) "Do Not Crush" Give with food and full glass of water For patients unable to swallow tablet, dissolve in one half glass of water. Allow about 2 minutes for the tablets to disintegrate. Stir before giving to prepare slurry and administer. Please exclude Patient s with feeding tube less than 14 Tr[address] (Dobhoff, J-tube etc) and pediatric and patients. [facility] potassium phosphate-sodium phosphate 250 mg-280 mg-160 mg oral powder for reconstitution 2018-06-02 01:11:00 No Notes: (Same as: Phos-NaK) Each 1.5 gm pkt has 250mg phosphorous. Mix w/2.5oz water and stir. [facility] potassium phosphate 2018-06-02 01:11:00 No Notes: (Same as: K Phosphate.) Do not infuse phosphorous concurrently in the same line as TPN or IVF that contains calcium. For double lumen central lines, phosphorous may be infused in a separate lumen from TPN. 1 mMol phoshate has 1.47 mEq potassium Infuse over 4 hours [facility] sodium phosphate 2018-06-02 01:11:00 No Notes: Infuse over 4 hour. Do not infuse phosphorous concurrently in the same line as TPN or IVF that contains calcium. For double lumen central lines, phosphorous may be infused in a separate lumen from TPN. [facility] Magnesium Oxide 2018-06-02 01:11:00 No Notes: (Same as: Mag-Ox 400) Magnesium oxide [id number] elemental magnesium Dose=____mg magnesium oxide (___mg elemental magnesium) [facility] Ciprofloxacin 2018-06-02 01:09:00 No Notes: Do not refrigerate [facility] tramadol hydrochloride 50 MG Oral Tablet 2018-06-02 01:02:00 No 50 mg = 1 tab, PO, Q6H, PRN Pain, # 40 tab, 0 Refill(s) [facility] Folic Acid 1 MG Oral Tablet 2018-06-02 01:02:00 Yes 1 mg = 1 tab, PO, Daily, # 30 tab, 0 Refill(s) Juve Dos Santos spironolactone 50 mg oral tablet 2018-06-02 01:02:00 Yes 50 mg = 1 tab, PO, Daily, # 90 tab, 1 Refill(s) [facility] Furosemide 40 MG Oral Tablet 2018-06-02 01:02:00 [...] No Notes: (Same as: Pneumovax 23) Refrigerate [facility] t[facility]anie influenza virus vaccine, inactivated 2018-06-02 00:50:04 No Notes: (Same as: Fluzone Quadrivalent, Fluarix Quadrivalent) For 3 years of age and older (0.5 mL IM) Shake well before use [facility] pantoprazole additive 80 mg + Sodium Chloride 0.9% IV 100 mL 2018-06-01 22:40:00 No Notes: For IV push reconstitute with 10 ml 0.9% sodium chloride and push over 2 minutes. (Same as: Protonix) [facility] Protonix 2018-06-01 22:40:00 No Notes: For IV push reconstitute with 10 ml 0.9% sodium chloride and push over 2 minutes. (Same as: Protonix) [facility] Sodium Chloride 0.9% (Bolus) IV 2018-06-01 21:42:00 No 1,000 mL, Infuse Over: 1 hr, Route: IV, ONCE, Priority: STAT, Dosing Weight 90.909 kg, Start date: 06/01/18 16:42:00 CDT, Stop date: 06/01/18 16:42:00 CDT [facility] Zofran 2018-06-01 21:41:00 No 4 mg, Route: IVP, Drug form: INJ, ONCE, Dosing Weight 90.909, kg, Priority: STAT, Start date: 06/01/18 16:41:00 CDT, Stop date: 06/01/18 16:41:00 CDT [facility] Morphine 2018-06-01 21:41:00 No 4 mg, Route: IVP, ONCE, Dosing Weight 90.909, kg, Priority: STAT, Start date: 06/01/18 16:41:00 CDT, Stop date: 06/01/18 16:41:00 CDT [facility] pantoprazole 2018-06-01 14:59:00 No Notes: For IV push reconstitute with 10 ml 0.9% sodium chloride and push over 2 minutes. (Same as: Protonix) [facility] Saline Flush 0.9% 2018-06-01 14:59:00 No Notes: (Same as: BD Posiflush) [facility] Sodium Chloride 0.9% (Bolus) IV 2018-06-01 14:59:00 No 1,000 mL, 1000 ml/hr, Infuse Over: 1 hr, Route: IV, 1,000, Drug form: INJ, ONCE, Priority: STAT, Dosing Weight 90.909 kg, Start date: 06/01/18 9:59:00 CDT, Stop date: 06/01/18 9:59:00 CDT [facility] pantoprazole 2018-05-31 18:30:00 Yes Notes: For IV push reconstitute with 10 ml 0.9% sodium chloride and push over 2 minutes. (Same as: Protonix) [facility] Saline Flush 0.9% 2018-05-31 18:30:00 No Notes: (Same as: BD Posiflush) [facility] Saline Flush 0.9% 2018-04-18 23:16:00 No Notes: (Same as: BD Posiflush) [facility] Fentanyl 2017-09-16 19:34:00 No Notes: (Same as: Sublimaze) Preservative free. [facility] Saline Flush 0.9% 2017-09-16 19:29:00 No 10 mL, Route: IVP, Drug Form: INJ, Dosing Weight 77, kg, PRN, PRN Line Flush, Start date: 09/16/17 14:29:00 CDT, Duration: 30 day, Stop date: 10/16/17 14:28:00 CDT [facility] Fentanyl 2017-09-16 15:34:00 No 25 microgram, Route: IV, ONCE, Dosing Weight 74.091, kg, Start date: 09/16/17 10:34:00 CDT, Stop date: 09/16/17 10:34:00 CDT [facility] Phenergan 2017-09-16 07:39:00 No 12.5 mg, Route: IVPB, ONCE, Dosing Weight 81.818, kg, Priority: STAT, Start date: 09/16/17 2:39:00 CDT, Stop date: 09/16/17 2:39:00 CDT [facility] Morphine 2017-09-16 07:39:00 No 4 mg, Route: IVP, ONCE, Dosing Weight 81.818, kg, Priority: STAT, Start date: 09/16/17 2:39:00 CDT, Stop date: 09/16/17 2:39:00 CDT [facility] Saline Flush 0.9% 2017-09-16 07:12:00 No Notes: (Same as: BD Posiflush) [facility] GI cocktail 2017-09-16 07:02:00 No Notes: G.I. Cocktail = antacid with simethicone 22.5 mL - lidocaine viscous 7.5 mL [facility] Lactulose Lactulose 2019-08-29 00:00:00 No 30 Three Times A Day [facility] Levofloxacin (Levaquin) 500 Mg TABLET Levofloxacin (Levaquin) 50 0 Mg TABLET 2019-08-29 00:00:00 No 500 Daily [facility] Tizanidine Hcl Tizanidine Hcl 2019-08-29 00:00:00 No 4 Twice A Day as needed for Muscle Cramps [facility] Furosemide (Lasix) 40 Mg TABLET Furosemide (Lasix) 40 Mg TABLET 2019-08-16 00:00:00 No 40 Daily [facility] Lactulose Lactulose 2019-08-16 00:00:00 No 30 Three Times A Day [facility] Spironolactone Spironolactone 2019-08-16 00:00:00 No 50 Daily [facility] Acetaminophen With Codeine (Tylenol With Codeine #3 Ta blet) 1 Each TABLET Acetaminophen With Codeine (Tylenol With Codeine #3 Tablet) 1 Each TABLET 2019-08-14 00:00:00 No 300 [id number] as needed f or Pain [facility] Immunizations Ordered Immunization Name Filled Immunization Name Date Status Comments Source Engerix-B IM 20 MCG/ML [id number] 2019-04-09 10:34: 00 Completed [facility] Vital Signs Vital Name Observation Time Observation Value Comments Source Body Temperature 2019-10-08 16:34:00 98.3 [degF] [facility] BMI (Body Mass Index) 2019-10-06 00:14:00 32.9 kg/m2 [facility] Weight 2019-10-01 07:39:00 223 [lb_av] [facility] Body Temperature 2019-09-02 15:44:00 99.4 [degF] [facility] Weight 2019-09-02 00:16:00 223.04 [lb_av] [facility] BMI (Body Mass Index) 2019-09-02 00:16:00 32.9 kg/m2 [facility] Body Temperature 2019-08-16 22:21:00 98.2 [degF] [facility] BMI (Body Mass Index) 2019-08-14 20:11:00 30.7 kg/m2 [facility] Weight 2019-08-14 19:00:00 207.56 [lb_av] [facility] temperature site 2019-04-09 10:23:37 oral [facility] temperature E&M 2019-04-09 10:23:37 97.9 [degF] [facility] blood pressure, diastolic 2019-03-28 08:32:24 107 mm[Hg] [facility] blood pressure, systolic 2019-03-28 08:32:24 151 mm[Hg] [facility] oxygen saturation, oximetry 2019-03-28 08:32:24 99 % [facility] respiratory rate E&M 2019-03-28 08:32:24 18 /min [facility] pulse rate E&M 2019-03-28 08:32:24 115 /min [facility] temperature E&M 2019-03-28 08:32:24 99.7 [degF] [facility]&M 2019-03-28 08:32:24 195 [lb_av] [facility] Travel Notes weight in kilograms E&M 2019-03-28 08:32:24 88.64 kg [facility] height in centimeters E&M 2019-03-28 08:32:24 175.26 cm [facility] temperature site 2019-03-28 08:32:24 oral Lega cy [facility] blood pressure, diastolic 2019-02-27 08:37:46 88 mm[Hg] [facility] blood pressure, systolic 2019-02-27 08:37:46 144 mm[Hg] [facility] oxygen saturation, oximetry 2019-02-27 08:37:46 99 % [facility] respiratory rate E&M 2019-02-27 08:37:46 16 /min [facility] pulse rate E&M 2019-02-27 08:37:46 105 /min [facility] temperature site 2019-02-27 08:37:46 oral Lega [facility] temperature E&M 2019-02-27 08:37:46 99.5 [degF] [facility] weight E&M 2019-02-27 08:37:46 202.20 [lb_av] [facility] weight in kilograms E&M 2019-02-27 08:37:46 91.91 kg [facility] height in centimeters E&M 2019-02-27 08:37:46 175.26 cm [facility] Systolic (mm Hg) 2019-02-26 17:26:00 Ton [facility] Diastolic (mm Hg) 2019-02-26 17:26:00 [facility] Heart Rate 2019-02-26 17:26:00 [facility] Respitory Rate 2019-02-26 17:26:00 [facility] Temperature Oral (F) 2019-02-26 17:26:00 97.9 F [facility] Weight 2019-02-26 17:26:00 [facility] Temperature Oral (F) 2018-08-25 01:56:00 98.2 F [facility] Systolic (mm Hg) 2018-08-25 01:56:00 [facility] Diastolic (mm Hg) 2018-08-25 01:56:00 [facility] Respitory Rate 2018-08-25 01:56:00 [facility] Heart Rate 2018-08-25 01:56:00 [facility] Respitory Rate 2018-08-04 09:30:00 [facility] Temperature Oral (F) 2018-08-04 09:30:00 97.9 F [facility] Systolic (mm Hg) 2018-08-04 09:30:00 [facility] Diastolic (mm Hg) 2018-08-04 09:30:00 [facility] BMI Calculated 2018-08-04 05:02:00 [facility] Respitory Rate 2018-08-04 05:02:00 [facility] Height 2018-08-04 05:02:00 175.26 cm [facility] Weight 2018-08-04 05:02:00 [facility] Temperature Oral (F) 2018-08-04 05:02:00 98.1 F [facility] Systolic (mm Hg) 2018-08-04 05:02:00 Ton [facility] Diastolic (mm Hg) 2018-08-04 05:02:00 [facility] Heart Rate 2018-08-04 05:02:00 [facility] Systolic (mm Hg) 2018-06-05 21:30:00 [facility] Diastolic (mm Hg) 2018-06-05 21:30:00 [facility] Respitory Rate 2018-06-05 21:30:00 [facility] Systolic (mm Hg) 2018-06-05 21:15:00 Ton [facility] Diastolic (mm Hg) 2018-06-05 21:15:00 [facility] Respitory Rate 2018-06-05 21:15:00 [facility] Systolic (mm Hg) 2018-06-05 21:00:00 Ton [facility] Diastolic (mm Hg) 2018-06-05 21:00:00 [facility] Respitory Rate 2018-06-05 21:00:00 [facility] Heart Rate 2018-06-05 16:11:00 [facility] Temperature Oral (F) 2018-06-05 16:11:00 98.1 F [facility] Temperature Oral (F) 2018-06-05 12:11:00 98 F [facility] Heart Rate 2018-06-05 12:11:00 [facility] Temperature Oral (F) 2018-06-05 08:10:00 98.1 F [facility] Heart Rate 2018-06-05 08:10:00 [facility] BMI Calculated 2018-06-02 00:42:00 [facility] Weight 2018-06-02 00:42:00 [facility] Height 2018-06-02 00:42:00 175.26 cm [facility] Weight 2018-06-01 14:58:00 [facility] Weight 2018-05-31 18:08:00 [facility] Height 2018-05-31 18:08:00 175.26 cm [facility] BMI Calculated 2018-05-31 18:08:00 [facility] Systolic (mm Hg) 2018-05-31 18:08:00 Ton [facility] Diastolic (mm Hg) 2018-05-31 18:08:00 [facility] Respitory Rate 2018-05-31 18:08:00 [facility] Heart Rate 2018-05-31 18:08:00 [facility] Temperature Oral (F) 2018-05-31 18:08:00 98.2 F [facility] Systolic (mm Hg) 2018-04-18 23:05:00 Ton [facility] Diastolic (mm Hg) 2018-04-18 23:05:00 [facility] Heart Rate 2018-04-18 23:05:00 [facility] Respitory Rate 2018-04-18 23:05:00 [facility] Temperature Oral (F) 2018-04-18 23:05:00 98.5 F [facility] Height 2018-04-18 23:05:00 175.26 cm [facility] BMI Calculated 2018-04-18 23:05:00 [facility] Weight 2018-04-18 23:05:00 [facility] Weight 2017-09-16 19:15:00 [facility] BMI Calculated 2017-09-16 19:15:00 [facility] Height 2017-09-16 19:15:00 175.26 cm [facility] Temperature Oral (F) 2017-09-16 19:15:00 99.1 F [facility] Respitory Rate 2017-09-16 19:15:00 [facility] Heart Rate 2017-09-16 19:15:00 [facility] Systolic (mm Hg) 2017-09-16 19:15:00 Ton [facility] Diastolic (mm Hg) 2017-09-16 19:15:00 [facility] Temperature Oral (F) 2017-09-16 16:04:00 98.9 F [facility] Respitory Rate 2017-09-16 16:04:00 [facility] Systolic (mm Hg) 2017-09-16 16:04:00 Ton [facility] Diastolic (mm Hg) 2017-09-16 16:04:00 [facility] Systolic (mm Hg) 2017-09-16 15:01:00 Ton [facility] Diastolic (mm Hg) 2017-09-16 15:01:00 [facility] Respitory Rate 2017-09-16 15:01:00 [facility] Height 2017-09-16 14:07:00 175.26 cm [facility] BMI Calculated 2017-09-16 14:07:00 [facility] Weight 2017-09-16 14:07:00 [facility] Systolic (mm Hg) 2017-09-16 14:03:00 Ton [facility] Diastolic (mm Hg) 2017-09-16 14:03:00 [facility] Respitory Rate 2017-09-16 14:03:00 [facility] Temperature Oral (F) 2017-09-16 13:01:00 99.0 F [facility] Heart Rate 2017-09-16 11:10:00 [facility] Heart Rate 2017-09-16 09:30:00 [facility] Weight 2017-09-16 06:48:00 [facility] Temperature Oral (F) 2017-09-16 06:48:00 99 F [facility] Heart Rate 2017-09-16 06:48:00 [facility] Procedures Procedure Date / Time Performed Performing Clinician [facility] e US Abdomen limited 2019-10-07 00:00:00 [facility] Computed tomography of abdomen and pelvis with contrast 00:00:00 [facility] US guided paracentesis 2019-10-02 00:00:00 [facility] Computed tomography of abdomen and pelvis with contrast 00:00:00 [facility] US Abdomen limited 2019-09-02 00:00:00 [facility] Computed tomography of chest without contrast 2019-09-01 00:00:0 0 [facility] Computed tomography of abdomen and pelvis with contrast 00:00:00 [facility] TRANSFUSE NONAUT RED BLOOD CELLS IN CENTRAL VEIN, PERC 2019-08-12 6 00:00:00 [facility] US Abdomen limited 2019-08-26 00:00:00 [facility] Ultrasound, renal 2019-08-26 00:00:00 [facility] X-ray of chest, two views 2019-08-25 00:00:00 I [facility] Computed tomography of abdomen and pelvis with contrast 00:00:00 [facility] TRANSFUSE NONAUT RED BLOOD CELLS IN PERIPH VEIN, PERC 2019-08-16 00:00:00 [facility] TRANSFUSE NONAUT PLATELETS IN PERIPH VEIN, PERC 2019-08-15 00:00 :00 [facility] Computed tomography of abdomen and pelvis with contrast 00:00:00 [facility] Computed tomography of brain without radiopaque contrast 2019-08 00:00:00 [facility] First Vx - Ix admin for Medicare patients 2019-04-09 10:33:15 Iv sharmaine [facility] Engerix-B Injection Suspension 20 MCG/ML 2019-04-09 10:33:15 [facility] Ordered - Print Consent/Declination Forms 2019-03-14 8 10:23:04 Ana Laura, [facility] Venipuncture 2019-03-28 09:36:19 Ana Laura [facility] Exploratory laparotomy [facility] Plan of Care Planned Activity Planned Date Details Comments Source Instructions Abdominal Pain - Adult [facility] Instructions GI Bleeding [facility] Encounters Start Date/Time End Date/Time Encounter Type Admission Type [facility] Care Department Encounter ID Source 2019-10-01 12:38:00 2019-10-08 16:45:00 Discharged Inpatient 1 RICO ELIAS [facility] [id number] [facility] 2019-08-23 16:10:00 2019-09-02 19:01:00 Discharged Inpatient 1 DAVI KELLY [facility] [id number] [facility] 2019-08-15 11:21:00 2019-08-16 23:20:00 Discharged Inpatient 1 GOLDEN WANG [facility] [id number] [facility] 2019-06-11 00:00:00 2019-06-11 00:00:00 Office Visit Jonelle Heard Jacklyn Zuniga Flores, Westley Avendano [facility] Encount er/[id number] [facility] 2019-04-17 00:00:00 2019-04-17 00:00:00 Office Visit Mir Mendoza [facility] Encounter/[id number] [facility] 2019-04-17 00:00:00 2019-04-17 00:00:00 Office Visit Mir Putnam [facility], [facility]ung[facility] Encount er/[id number] [facility] 2019-04-16 00:00:00 2019-04-16 00:00:00 Office Visit Status, Fax [facility] Encounter/[id number] [facility] 2019-04-16 00:00:00 2019-04-16 00:00:00 Office Visit Status, Fax [facility] Encounter/[id number] [facility] 2019-04-16 00:00:00 2019-04-16 00:00:00 Office Visit Status, Fax [facility] Encounter/[id number] [facility] 2019-04-16 00:00:00 2019-04-16 00:00:00 Office Visit Status, Fax [facility] Encounter/[id number] [facility] 2019-04-16 00:00:00 2019-04-16 00:00:00 Office Visit Status, Fax [facility] Encounter/[id number] [facility] 2019-04-09 00:00:00 2019-04-09 00:00:00 Office Visit Vane Du [facility] En[facility][id number] [facility] 2019-04-09 00:00:00 2019-04-09 00:00:00 Office Visit I Vane toth Adriana [facility] Encounter/[id number] [facility] 2019-04-02 00:00:00 2019-04-02 00:00:00 Office Visit Mir Putnam, Jonelle Porter, Sisi Pagan, Jayleen Lal, Jo Bosch [facility] Contact Center Encounter/[id number] [facility] 2019-04-02 00:00:00 2019-04-02 00:00:00 Office Visit G Sisi ross Deborath [facility]/[id number] [facility] 2019-03-29 00:00:00 2019-03-29 00:00:00 Office Visit Status, Fax [facility] Encounter/[id number] [facility] 2019-03-29 00:00:00 2019-03-29 00:00:00 Office Visit Status, Fax [facility] Encounter/[id number] [facility] 2019-03-29 00:00:00 2019-03-29 00:00:00 Office Visit Status, Fax [facility] Encounter/[id number] [facility] 2019-03-29 00:00:00 2019-03-29 00:00:00 Office Visit I Vane toth Shakira [facility] Encounter/[id number] [facility] 2019-03-29 00:00:00 2019-03-29 00:00:00 Office Visit Vane Du [facility] Encounter/[id number] [facility] 2019-03-28 00:00:00 2019-03-28 00:00:00 Office Visit I Vane toth Iris Granados, Deborath [facility] Encounter/[id number] [facility] 2019-03-28 00:00:2019-03-28 00:00:00 Office Visit Vane Du [facility] Encounter/[id number] [facility] 2019-03-28 00:00:00 2019-03-28 00:00:00 Office Visit I navneet Mir Cunningham [facility] Encounter/[id number] [facility] 2019-02-27 00:00:00 2019-02-27 00:00:00 Office Visit Status, Fax [facility] Encounter/[id number] [facility] 2019-02-27 00:00:00 2019-02-27 00:00:00 Office Visit Status, Fax [facility] Encounter/[id number] [facility] 2019-02-27 00:00:00 2019-02-27 00:00:00 Office Visit Status, Fax [facility] Encounter/[id number] [facility] 2019-02-27 00:00:00 2019-02-27 00:00:00 Office Visit V Jonelle anderson, Leti Phillips, Keli Stephenson [facility] Contact Center Encounter/[id number] [facility] 2019-02-27 00:00:00 2019-02-27 00:00:00 Office Visit Vane Du [facility] Encounter/[id number] [facility] 2019-02-27 00:00:00 2019-02-27 00:00:00 Office Visit I ishabeboVane Shakira Granados, Deborath [facility] Encounter/[id number] [facility] 2019-02-26 11:19:29 2019-02-26 14:42:00 Outpatient Mary Banks [facility] [id number] 2019-02-26 11:19:00 2019-02-26 11:19:00 Emergency E MHSE [facility]SE [facility] 2018-08-24 20:55:56 2018-08-25 00:12:00 Outpatient Mary Banks MHSE MHSE [id number] 2018-08-24 20:55:00 2018-08-24 20:55:00 Emergency E MHSE [facility]SE [facility] 2018-08-03 23:59:28 2018-08-04 05:44:00 Outpatient Mary Banks ep MHSE MHSE [id number] 2018-08-03 23:59:00 2018-08-03 23:59:00 Emergency E MHSE [facility]SE [id number] 2018-06-01 09:37:00 2018-06-05 18:35:00 Outpatient Nabeel Hough i MHPL MHPL [id number] 2018-05-31 12:19:00 2018-05-31 19:22:00 Outpatient Mary Banks ep MHSE MHSE [id number] 2018-04-18 16:46:00 2018-04-18 20:32:00 Outpatient Iheme, Varinder U MHSE MHSE [id number] 2018-04-18 16:46:00 2018-04-18 20:32:00 Outpatient Iheme, Varinder U MHSE MHSE [id number] 2018-04-18 16:46:00 2018-04-18 16:46:00 Emergency E MHSE [facility]SE [id number] 2017-09-16 13:46:00 2017-09-16 15:34:00 Outpatient F laneyyvonnereva Pauline Benitez MHPL MHPL [id number] 2017-09-16 01:41:00 2017-09-16 12:59:00 Outpatient Zandra Justice MHSE MHSE [id number] 2017-06-15 15:53:00 2017-06-20 17:14:00 Discharged Inpatient ER [facility] [id number] [facility] Results Test Description Test Time Test Comments Results Result Comments Source ABDOMEN 2 VIEW 2019-10-07 09:33:00 [facility] [address] [place] [address] Patient Name: JOCELIN CORREA MR #: [id number] : 1970 Age/Sex: 49/M Req #: [id number] Adm Physician: ELIAS GÓMEZ MD Ordered by: TYREL MURILLO MD Report #: [id number] Location: MED/SURG Room/Bed: [facility] Procedure: [id number] DX/ABDOMEN 2 VIEW Exam Date: 10/07/19 Exam Time: 904 REPORT STATUS: Signed Exam: KUB - 2 views Indication: Bowel Obstruction Comparison: CT abdomen and pelvis of 10/06/2019, KUB of 10/03/2019 Findings: Nonobstructive bowel gas pattern. No free air. No abnormal calcifications. No acute osseous injury. Impression: Nonob structive bowel gas pattern. No free air. Signed by: Nayeli Chappell MD on 10/07/2019 9:35 AM Dictated By: NAYELI CHAPPELL MD 4 Transcribed By: ZAHEER on 10/07/19934 COPY TO: TYREL MURILLO MD ABDOMEN LIMITED 2019-10-07 09:09:00 [place] [address] Patient Name: JOCELIN CORREA MR #: [id number] : 1970 Age/Sex: 49/M Req #: [id number] Adm Physician: ELIAS GÓMEZ MD Ordered by: ELIAS GÓMEZ MD Report #: [id number] Location: MED/SURG Room/Bed: [facility] Procedure: [id number] US/US ABDOMEN LIMITED Exam Date: 10/07/19 Exam Time: 08 REPORT STATUS: Signed EXAM: Limited abdominal ultrasound INDICATION: Ascites, abdominal pain COMPARISON: Abdominal ultrasound 09/02/2019 TECHNIQUE: Transverse and longitudinal images of the right upper quadrant abdomen were obtained FINDINGS: Limited sonographic evalu ation of the 4 quadrants of the abdomen and straight no ascites. IMPRESSION: No ascites. Patient is not eligible for paracentesis at this time. Signed by: Nayeli Chappell MD on 10/07/2019 9:10 AM Dictated By: NAYELI CHAPPELL MD 9 Transcribed By: ZAHEER on 10/07/19909 COPY TO: ELIAS GÓMEZ MD Blood leukocytes automated count (number/volume) 2019-10-07 04:50:00 Test Item White Blood Count (test code = 6690-2) 2.50 4.8-10.8 [facility] (number/volume)2019-10-07 04:50:00* Test Item Value Reference Range Interpretation Comments Red Blood Count (test code = 789-8) 3.08 4.3-5.7 [facility] measurement (moles/volume)2019-10-07 04:50:00* Test Item Value Reference Range Interpretation Comments Hemoglobin (test code = 44539-8) 9.0 14.0-18.0 [facility] hematocrit (volume fraction)2019-10-07 04:50:00* Test Item Value Reference Range Interpretation Comments Hematocrit (test code = 4544-3) 28.5 38.2-49.6 [facility] mean corpuscular [id number] 04:50:00* Test Item Value Reference Range Interpretation Comments Mean Corpuscular Volume (test code = 787-2) 92.5 81-99 [facility] mean corpuscular hemoglobin (mass per erythrocyte)2019-10-07 04:50:00* Test Item Value Reference Range Interpretation Comments Mean Corpuscular Hemoglobin (test code = 785-6) 29.2 28-32 [facility] mean corpuscular hemoglobin concentration measurement (mass/volume)2019-10-07 04:50:00* Test Item Value Reference Range Interpretation Comments Mean Corpuscular Hemoglobin Concent (test code = 786-4) 31.6 31-35 [facility] HospitalRDW UjrDu-Wig3888-07-27 04:50:00* Test Item Value Reference Range Interpretation Comments Red Cell Distribution Width (test code = 33153-3) 28.4 11.7 -14.4 [facility] platelet count (count/volume)2019-10-07 04:50:00* Test Item Value Reference Range Interpretation Comments Platelet Count (test code = 777-3) 47 140-360 Results repeated and called to dianelys aguilera rn at 0519 on 10/07/19 by Rupert Lazaro. Read back and verified.This test has been rerun and double checked fo r accuracy.[facility] segmented neutrophil count as percentage of total uhgbjrjxhb0372-23-15 04:50:00* Test Item Value Reference Range Interpretation Comments Neutrophils (%) (Auto) (test code = 54226-3) 48.0 38.7-80.0 [facility] lymphocyte count as percentage ot total aqhgqbwvag5635-27-37 04:50:00* Test Item Value Reference Range Interpretation Comments Lymphocytes (%) (Auto) (test code = 736-9) 22.8 18.0-39.1 [facility] monocyte count as percentage of total wzmyxrokoh3296-50-18 04:50:00* Test Item Value Reference Range Interpretation Comments Monocytes (%) (Auto) (test code = 5905-5) 16.0 4.4-11.3 [facility] eosinophil count as percentage of total dllxuokcsd5801-95-14 04:50:00* Test Item Value Reference Range Interpretation Comments Eosinophils (%) (Auto) (test code = 713-8) 12.4 0.0-6.0 [facility] basophil count as percentage of total unguvmsjqx1316-26-02 04:50:00* Test Item Value Reference Range Interpretation Comments Basophils (%) (Auto) (test code = 706-2) 0.4 0.0-1.0 [facility] HospitalFluoroscopic procedure less than one hour ksxslxan2586-10-54 04:50:00* Test Item Value Reference Range Interpretation Comments IM GRANULOCYTES % (test code = IM GRANULOCYTES %) 0.4 0.0- 1.0 [facility] neutrophil count 2019-10-07 04:50:00* Test Item Value Reference Range Interpretation Comments Neutrophils # (Auto) (test code = 751-8) 1.2 2.1-6.9 [facility] lymphocytes count (number/volume) 2019-10-07 04:50:00* Test Item Value Reference Range Interpretation Comments Lymphocytes # (Auto) (test code = 81084-5) 0.6 1.0-3.2 [facility] monocytes automated count (number/volume)2019-10-07 04:50:00* Test Item Value Reference Range Interpretation Comments Monocytes # (Auto) (test code = 742-7) 0.4 0.2-0.8 [facility] eosinophil count 2019-10-07 04:50:00* Test Item Value Reference Range Interpretation Comments Eosinophils # (Auto) (test code = 711-2) 0.3 0.0-0.4 [facility] basophil count (count/volume)2019-10-07 04:50:00* Test Item Value Reference Range Interpretation Comments Basophils # (Auto) (test code = 704-7) 0.0 0.0-0.1 [facility] HospitalFluoroscopic procedure less than one hour vgslybnn3204-39-34 04:50:00* Test Item Value Reference Range Interpretation Comments Absolute Immature Granulocyte (auto ([place] t code = Absolute Immature Granulocyte (auto) 0.01 0-0.1 [facility] sodium measurement (moles/volume)2019-10-07 04:50:00* Test Item Value Reference Range Interpretation Comments Sodium Level (test code = 2951-2) 134 136-145 [facility] potassium measurement (moles/volume)2019-10-07 04:50:00* Test Item Value Reference Range Interpretation Comments Potassium Level (test code = 2823-3) 3.4 3.5-5.1 [facility] chloride measurement (moles/volume)2019-10-07 04:50:00* Test Item Value Reference Range Interpretation Comments Chloride Level (test code = 2075-0) 108 98-107 [facility] or plasma carbon dioxide, total measurement (moles/volume)2019-10-07 04:50:00* Test Item Value Reference Range Interpretation Comments Carbon Dioxide Level (test code = 2028-9) 22 22-29 [facility] anion ftp1384-30-53 04:50:00* Test Item Value Reference Range Interpretation Comments Anion Gap (test code = 08467-7) 7.4 8-16 [facility] plasma urea nitrogen measurement (mass/volume)2019-10-07 04:50:00* Test Item Value Reference Range Interpretation Comments Blood Urea Nitrogen (test code = 3094-0) < 5 7-26 [facility] plasma creatinine measurement (mass/volume)2019-10-07 04:50:00* Test Item Value Reference Range Interpretation Comments Creatinine (test code = 2160-0) 0.77 0.72-1.25 [facility] or plasma urea nitrogen/creatinine mass zsbps7030-73-34 04:50:00* Test Item Value Reference Range Interpretation Comments BUN/Creatinine Ratio (test code = 3097-3) 6 6-25 [facility] HospitalEstimated glomerular filtration rate (GFR) sspfkyfcfjaun5883-70-68 04:50:00* Test Item Value Reference Range Interpretation Comments Estimat Glomerular Filtration Rate (test code = 196694596) > 60 >60 Ranges were taken from the National Kidney Disease Education Program and the [employer] literature.Reference ranges:60 or greater: Mgqwjf36-51 ( for 3 consecutive months): Chronic kidney disease 15 or less: Kidney failureMethodist McKinney HospitalGlucose laoawbqwubn9622-21-17 04:50:00* Test Item Value Reference Range Interpretation Comments Glucose Level (test code = EBD0290) 109 74-118 [facility] plasma calcium measurement (mass/volume)2019-10-07 04:50:00* Test Item Value Reference Range Interpretation Comments Calcium Level (test code = 42025-3) 7.2 8.4-10.2 [facility] plasma total bilirubin measurement (mass/volume)2019-10-07 04:50:00* Test Item Value Reference Range Interpretation Comments Total Bilirubin (test code = 1975-2) 1.5 0.2-1.2 [facility] HospitalFluoroscopic procedure less than one hour pddobdaa8427-26-65 04:50:00* Test Item Value Reference Range Interpretation Comments Aspartate Amino Transf (AST/SGOT) (test code = Aspartate Amino Transf (AST/SGOT)) 27 5-34 [facility] or plasma alanine aminotransferase measurement (enzymatic activity/volume)2019-10-07 04:50:00* Test Item Value Reference Range Interpretation Comments Alanine Aminotransferase (ALT/SGPT) (test code = 1742-6) 9 0-55 [facility] protein measurement (mass/volume)2019-10-07 04:50:00* Test Item Value Reference Range Interpretation Comments Total Protein (test code = 2885-2) 6.7 6.5-8.1 [facility] plasma albumin measurement (mass/volume)2019-10-07 04:50:00* Test Item Value Reference Range Interpretation Comments Albumin (test code = 1751-7) 2.0 3.5-5.0 [facility] HospitalPlasma globulin measurement (mass/volume) 2019-10-07 04:50:00* Test Item Value Reference Range Interpretation Comments Globulin (test code = 65602-6) 4.7 2.3-3.5 [facility] plasma albumin/globulin mass obicp5761-42-89 04:50:00* Test Item Value Reference Range Interpretation Comments Albumin/Globulin Ratio (test code = 1759-0) 0.4 0.8-2.0 [facility] or plasma alkaline phosphatase measurement (enzymatic activity/volume)2019-10-07 04:50:00* Test Item Value Reference Range Interpretation Comments Alkaline Phosphatase (test code = 6768-6) 47 40-150 [facility] HospitalCT ABDOMEN/PELVIS S8510-92-76 00:51:00 [facility] [address] [address] Patient Name: JOCELIN CORREA MR #: [id number] : 1970 Age/Sex: 49/M Req #: [id number] Adm Physician: ELIAS GÓMEZ MD Ordered by: AMARA GUTHRIE MD Re port #: [id number] Location: MED/SURG Room/ Bed: [facility] Procedure: [id number] CT/CT ABDOMEN /PELVIS W Exam Date: 10/06/19 Exam Time: 0020 REPORT STATUS: Signed EXAM: CT Abdomen and Pelvis WITH contrast INDICATION: Abdominal pain. COMPARISON: 10/01/19. TECHNIQUE: Abdomen and pelvis were scanned utilizing a multidetector helical scanner from the lung base to the pubic symphysis after administration of IV contrast. Coronal and sagittal reformations were obtained. Routine protocol was performed. Scan was performed when during portal venous phase. IV CONTRAST: 100 cc Isovue-370 ORAL CONTRAST: Water RADIATION DOSE: Total DLP: 771.61 mGy*cm Estimated effective dose : (DLP x 0.015 x size factor) mSv COMPLICATIONS: None FINDING S: LINES and TUBES: None. LOWER THORAX: Bibasilar dependent atelectas is. HEPATOBILIARY: Heterogeneous attenuation. Nodular contour. No focal he patic lesions. No biliary ductal dilation. GALLBLADDER: No radio-opaque stones or sludge. No wall thickening. SPLEEN: Splenomegaly again observed. PANCREAS: No focal masses or ductal dilatation. ADRENALS: No adrena l nodules KIDNEYS/URETERS: Kidneys enhance symmetrically. No hydroneph rosis. No cystic or solid mass lesions. No stones. GI TRACT: No abnormal distention, or evidence of bowel obstruction. Mild colonic wall thickening i s nonspecific finding, however, may reflect mild portal colopathy. Appendix i s normal. PELVIC ORGANS/BLADDER: Unremarkable. LYMPH NODES: No lymphad enopathy. VESSELS: There is being interval improvement of main portal vein thrombosis, with only a linear filling defect in the body on image 24 series 2 . Portal vein is enlarged measuring 1.9 cm in diameter. PERITONEUM / RETR OPERITONEUM: Redemonstration of small volume of fluid within the peritoneal ca vity, with diffuse mild enhancement of the parietal peritoneum which is a nons pecific finding, however, raise concern for infected fluid. BONES: No acute osseous abnormality. SOFT TISSUES: Unremarkable. IMPRESSION: 1. Redemonstration of a small volume ascites with peritoneal surfaces, raising concern for infected fluid/peritonitis. Consider diagnostic paracentesis. 2. Interval resolution of previously described bowel dilatation. No evidence of o bstruction. 3. Findings suggestive of early cirrhotic morphology. 4. Near complete resolution of portal vein thrombosis. Signed by: Dr. Ya Rodriguez M.D. on 10/06/2019 1:08 AM Dictated By: ONDINA RODRIGUEZ MD, MD [place] ctronically Signed By: ONDINA RODRIGUEZ MD, MD on 10/06/19107 Transcribed By: ELENA FIELDS on 10/06/19107 COPY TO: AMARA GUTHRIE MD Serum or plasma magnesium measurement (mass/volume)2019-10-05 05:00:00* Test Item Value Reference Range Interpretation Comments Magnesium Level (test code = 76179-4) 1.3 1.3-2.1 [facility] 2 TVML2860-08-37 08:26:00 [facility] [address] [address] Patient Name: JOCELIN CORREA MR #: [id number] : 1970 Age/Sex: 49/M Req #: [id number] Adm Physician: ELIAS GÓMEZ MD Ordered by: TYREL MURILLO MD Report #: [id number] Location: MED/SURG R oom/Bed: 106 Procedure: [id number] DX/ABDOME N 2 VIEW Exam Date: 10/04/19 Exam Time: 0600 REPORT STATUS: Signed Exam: Abdomina l film Clinical History: Small bowel obstruction, abdominal pain Comp arison: Abdominal film 10/03/2019 DISCUSSION: Frontal view of the abdomen sh ows a nonobstructive bowel gas pattern with mild amount of retained stool pred ominantly in the ascending colon..There are no dilated, air-filled loops of sean wel. There are no abnormal calcifications.No acute bone abnormality. No int erval change in enteric tube which has its distal tip coiled in the stomach fu ndus. IMPRESSION: 1. Nonobstructive bowel gas pattern. Mild retained s tool predominantly in the ascending colon. The staff physician below has personally reviewed this exam on the date of dictation. Si gned by: Dr. Haim Draper M.D. on 10/04/2019 8:29 AM Dictated By: KEVIN DRAPER MD 8 T ranscribed By: ZAHEER on 10/04/19828 COPY TO: TYREL MURILLO MD Blood platelets count by estimate (number/volume)2019-10-04 05:10:00* Test Item Value Reference Range Interpretation Comments Platelet Estimate (test code = 80710-7) MARKEDLY DECREASED [facility] HospitalPlatelet hophpdqcwn4297-83-03 05:10:00* Test Item Value Reference Range Interpretation Comments Platelet Morphology Comment (test code = 29431-8) NORMAL [facility] HospitalRBC ntlukszehk3266-64-56 05:10:00* Test Item Value Reference Range Interpretation Comments Red Cell Morphology Comment (test code = 6742-1) NORMAL [facility] HospitalABDOMEN 2 CZZS3593-24-15 08:45:00 [facility] [address] [address] Patient Name: JOCELIN CORREA MR #: [id number] : 1970 Age/Sex: 49/M Req #: [id number] Adm Physician: ELIAS GÓMEZ MD Ordered by: TYREL MURILLO MD Report #: [id number] Location: MED/SURG R oom/Bed: 106-1 Procedure: [id number] DX/ABDOME N 2 VIEW Exam Date: 10/03/19 Exam Time: 0645 REPORT STATUS: Signed Exam: KUB - 2 vie ws Indication: Bowel Obstruction Comparison: KUB of 10/02/2019, CT abdo men and pelvis of 10/01/2019 Findings: NG tube with tip and side-port in the stomach. Nonobstructive bowel gas pattern. No free air. No acute osseous i njury. No abnormal calcification. Impression: Nonobstructive bowel gas pa ttern. No free air. NG tube with tip and side-port in the stomach. Sig mercedes by: Nayeli Chappell MD on 10/03/2019 8:47 AM Dictated By: NAYELI CHAPPELL MD E lectronically Signed By: NAYELI CHAPPELL MD on 10/03/19846 Transcribed By: ZAHEER on 10/03/19846 COPY TO: TYREL MURILLO MD Automated reticulocyte count as percentage of total wzhmovwofrzm8994-02-60 05:10:00* Test Item Value Reference Range Interpretation Comments Percent Reticulocyte Count (test code = 82683-8) 2.4 0.8-2 .2 [facility] HospitalProthrombin time (PT) in platelet poor plasma by coagulation fcsdo2562-71-51 05:10:00* Test Item Value Reference Range Interpretation Comments Prothrombin Time (test code = 5902-2) 18.0 11.9-14.5 [facility] HospitalINR in Platelet poor plasma by Coagulation ioniz4574-24-36 05:10:00* Test Item Value Reference Range Interpretation Comments Prothromb Time International Ratio (test code = 6301-6) 1.40 Oral Anticoagulant Therapy INR Values:1. Low Intensity Therapy 1.5 - 2.02 . Moderate Intensity Therapy 2.0 - 3.03. High Intensity Therapy(1) 2.5 - 3. 54. High Intensity Therapy(2) 3.0 - 4.05. Panic Value INR > 5.0 [facility] iron measurement (mass/volume)2019-10-03 05:10:00* Test Item Value Reference Range Interpretation Comments Iron Level (test code = 2498-4) 100 65-175 [facility] iron binding capacity measurement (mass/volume)2019-10-03 05:10:00* Test Item Value Reference Range Interpretation Comments Total Iron Binding Capacity (test code = 2500-7) 237 261-4 78 [facility] plasma iron saturation measurement (mass fraction)2019-10-03 05:10:00* Test Item Value Reference Range Interpretation Comments Percent Iron Saturation (test code = 2502-3) 42 15-50 [facility] plasma transferrin measurement (mass/volume)2019-10-03 05:10:00* Test Item Value Reference Range Interpretation Comments Transferrin (test code = 3034-6) 169 174-364 [facility] plasma ferritin measurement (mass/volume)2019-10-03 05:10:00* Test Item Value Reference Range Interpretation Comments Ferritin (test code = 2276-4) 200.56 21.81-274.66 [facility] HospitalAmmonia Wej-jZnd9032-40-23 05:10:00* Test Item Value Reference Range Interpretation Comments Ammonia (test code = 93324-1) 121 31-123 [facility] HospitalBlood cobalamin (vitamin B12) measurement (mass/volume)2019-10-03 05:10:00* Test Item Value Reference Range Interpretation Comments Vitamin B12 Level (test code = 69331-5) 781 213816 [facility] folate measurement (mass/volume)2019-10-03 05:10:00* Test Item Value Reference Range Interpretation Comments Folate (test code = 2284-8) 14.7 >3.0 A serum folate concentration of less than 3.1 ng/mL isconsidered to represent cl inical deficiency.Performed at: HD - [facility] [address] [id number] Director: Lopez Morgan MD, Phone: [phone] McKinney HospitalUS GUIDED SBQFFZNFXVEI8877-34-80 11:02:00 [facility] [address] [place] [address] Patient Name: JOCELIN CORREA MR #: [id number] : 1970 Age/Sex: 49/M Req #: [id number] Adm Physician: ELIAS GÓMEZ MD Ordered by: ELIAS GÓMEZ MD Report #: [id number] Location: MED/SURG Room/Bed: [facility] Procedure: [id number] US/US GUIDED PARACENTESIS Exam Date: 10/02/19 Exam Time: 1021 REPORT STATUS: Signed PROCEDURE: Ul trasound-guided paracentesis Procedural Personnel Attending physician(s): Nayeli Chappell MD Pre-procedure diagnosis: Ascites Post-procedure diagnosis : Unchanged Indication: Ascites with suspicion of infection Additional clini susie history: None Complications: No immediate complications. IMPRESSIO N: Ultrasound-guided paracentesis with drainage of 12 mL of blood tinged fl uid. Plan: Sample sent for cultures. PROCEDURE SUMMARY: - Limited abdominal ult rasound - Ultrasound-guided paracentesis - Additional procedure(s): None PROCEDURE DETAILS: Pre-procedure Consent: Informed consent for the proc edure including risks, benefits and alternatives was obtained and time-out was performed prior to the procedure. Preparation: The site was prepared and drap ed using maximal sterile barrier technique including cutaneous antisepsis. Anesthesia/sedation Level of anesthesia/sedation: None Initial abdomina l ultrasound Initial abdominal ultrasound was performed. Findings: Trace asc ites. A safe window for paracentesis was identified. Paracentesis Local a nesthesia was administered. The peritoneal cavity was accessed and fluid retur n confirmed position. Ascites was drained. The catheter was then removed, and a sterile bandage was applied. Paracentesis access technique: Real-time ultras ound guidance. Catheter placed: 5Fr Yueh Post-drainage ultrasound: Not perfo rmed Additional Details Additional description of procedure: None Equip ment details: None Specimens removed: Abdominal fluid Estimated blood loss ( mL): Minimal (<10cc) Standardized report: SIR_Paracentesis_v3 Attestation Signer name: Nayeli Chappell MD I attest that I was present for the entire procedure. I reviewed the stored images and agree with the report as written. Signed by: Nayeli Chappell MD on 10/02/2019 11:03 AM Dictated By: NAYELI CHAPPELL MD 02 Transcribed By: ZAHEER on 10/02/191102 COPY TO: ELIAS GÓMEZ MD Specimen source identification of body hdlhg0020-40-52 10:40:00* Test Item Value Reference Range Interpretation Comments Body Fluid Type (test code = 76027-2) PERITONEAL [facility] HospitalEvaluation of color of body fluid 2019-10-02 10:40:00* Test Item Value Reference Range Interpretation Comments Body Fluid Color (test code = 6824-7) RED [facility] HospitalDetermination of appearance of body fluid 2019-10-02 10:40:00* Test Item Value Reference Range Interpretation Comments Body Fluid Appearance (test code = 9335-1) SL.CLOUDY [facility] body fluid leukocytes count (number/volume)2019-10-02 10:40:00* Test Item Value Reference Range Interpretation Comments Body Fluid WBC (test code = 6743-9) 220 [facility] body fluid erythrocytes count (number/volume)2019-10-02 10:40:00* Test Item Value Reference Range Interpretation Comments Body Fluid RBC (test code = 6741-3) 02100 [facility] body fluid neutrophils/100 dzvcylpytc5609-31-57 10:40:00* Test Item Value Reference Range Interpretation Comments Body Fluid Neutrophils (test code = 60235-1) 20 [facility] HospitalBody fluid lymphocyte gnnmc1280-25-36 10:40:00* Test Item Value Reference Range Interpretation Comments Body Fluid Lymphocytes (test code = 49862473) 34 [facility] fluid monocyte qgwnt9184-00-55 10:40:00* Test Item Value Reference Range Interpretation Comments Body Fluid Monocytes (test code = 63351-1) 43 [facility] eosinophil percentage 2019-10-02 10:40:00* Test Item Value Reference Range Interpretation Comments Body Fluid Eosinophils (test code = 62594-5) 2 [facility] other cells manual count 2019-10-02 10:40:00* Test Item Value Reference Range Interpretation Comments Body Fluid Other Cells (test code = 143939255) 1 [facility] HospitalTotal cell ngxvg6799-15-57 10:40:00* Test Item Value Reference Range Interpretation Comments Body Fluid Total Cells Counted (test code = 84040-9) 100 [facility] HospitalABDOMEN 2 ZSDU5253-31-09 08:24:00 [facility] [address] [address] Patient Name: JOCELIN CORREA MR #: [id number] : 1970 Age/Sex: 49/M Req #: [id number] Adm Physician: ELIAS GÓMEZ MD Ordered by: TYREL MURILLO MD Report #: [id number] Location: MED/SURG R oom/Bed: 106 Procedure: [id number] DX/ABDOME N 2 VIEW Exam Date: 10/02/19 Exam Time: 0650 REPORT STATUS: Signed Exam: Abdomina l film Clinical History: Small bowel obstruction Comparison: CT abdom en and pelvis 10/01/2019 DISCUSSION: Interval placement of an enteric t ube, which terminates over the expected region of the gastric fundus. No dilated, air-filled loops of small bowel are appreciated. Gas and fecal materi al is noted within the colon as seen on canal superintendent tomogram from comparison CT. No pneumoperitoneum. No abnormal calcification. Regional skeletal structures a re intact. IMPRESSION: Interval placement of an enteric tube as descri bed above. Bowel gas pattern is similar to that seen on canal superintendent tomogram from comparison CT 10/01/2019. Of note, dilated small bowel loops were fluid-filled at that time and would not be expected to be visualized on plain radiography. No pneumoperitoneum. Signed by: Dr. Brianna Navarro M.D. on 10/01 8:29 AM Dictated By: BRIANNA NAVARRO MD 8 Transcribed By: ZAHEER on 10/02/19828 COPY TO: TYREL MURILLO MD Fluoroscopic procedure less than one hour jkbrfdxs4751-44-46 20:31:00* Test Item Value Reference Range Interpretation Comments [...] complexity tests.Testing performed by [facility] [address] [id number] Director: Francisco Javier Barth M.D.CLIA # [id number] McKinney HospitalUrine color ezxepyoyiqflz6689-08-94 15:16:00* Test Item Value Reference Range Interpretation Comments Urine Color (test code = 5778-6) YELLOW YELLOW [facility] HospitalUrine wbltajf2280-98-45 15:16:00* Test Item Value Reference Range Interpretation Comments Urine Clarity (test code = 09723-0) CLOUDY CLEAR [facility] Centerpecific gravity of Urine by Test strip 2019-10-01 15:16:00* Test Item Value Reference Range Interpretation Comments Urine Specific [place] (test code = 5811-5) 1.015 1.010-1.02 5 [facility] HospitalUrine pH measurement by automated test vrtsb4012-39-36 15:16:00* Test Item Value Reference Range Interpretation Comments Urine pH (test code = 69232-5) 7.5 5-7 [facility] HospitalUrine leukocyte esterase detection by xsicejxz1791-63-25 15:16:00* Test Item Value Reference Range Interpretation Comments Urine Leukocyte Esterase (test code = 5799-2) NEGATIVE NEGATIVE [facility] HospitalUrine nitrite fhgnhubgy8333-83-82 15:16:00* Test Item Value Reference Range Interpretation Comments Urine Nitrite (test code = 51411-2) NEGATIVE NEGATIVE [facility] HospitalUrine protein measurement by test strip (mass/volume)2019-10-01 15:16:00* Test Item Value Reference Range Interpretation Comments Urine Protein (test code = 5804-0) NEGATIVE NEGATIVE [facility] HospitalUrine glucose qkfwuozxa0105-76-04 15:16:00* Test Item Value Reference Range Interpretation Comments Urine Glucose (UA) (test code = 2349-9) NEGATIVE NEGATIVE [facility] HospitalUrine ketones detection by automated test krsex9635-50-13 15:16:00* Test Item Value Reference Range Interpretation Comments Urine Ketones (test code = 19081-1) NEGATIVE NEGATIVE [facility] HospitalUrine urobilinogen measurement by test strip (mass/volume)2019-10-01 15:16:00* Test Item Value Reference Range Interpretation Comments Urine Urobilinogen (test code = 06028-6) 1 0.2-1 [facility] HospitalUrine total bilirubin measurement (mass/volume)2019-10-01 15:16:00* Test Item Value Reference Range Interpretation Comments Urine Bilirubin (test code = 1978-6) NEGATIVE NEGATIVE [facility] HospitalUrine erythrocytes snxfhmuou1698-13-53 15:16:00* Test Item Value Reference Range Interpretation Comments Urine Blood (test code = 79202-6) 2+ NEGATIVE [facility] HospitalAutomated urine sediment leukocyte count by microscopy (number/high power field)2019-10-01 15:16:00* Test Item Value Reference Range Interpretation Comments Urine WBC (test code = 5821-4) NONE 0-5 [facility] HospitalErythrocytes detection in urine sediment by light tnvtrjwlpv8292-28-75 15:16:00* Test Item Value Reference Range Interpretation Comments Urine RBC (test code = 76546-1) 6-10 0-5 [facility] HospitalBacteria detection in urine sediment by light quvouyyqtm7090-78-84 15:16:00* Test Item Value Reference Range Interpretation Comments Urine Bacteria (test code = 60764-9) MODERATE NONE [facility] HospitalEpithelial cells detection in urine sediment by light yyarypzunv3678-95-41 15:16:00* Test Item Value Reference Range Interpretation Comments Urine Epithelial Cells (test code = 09938-1) RARE NONE [facility] HospitalAmorphous sediment detection in urine sediment by light kjpyrxtnta4300-32-20 15:16:00* Test Item Value Reference Range Interpretation Comments Urine Amorphous Sediment (test code = 8246-1) MANY FEW [facility] HospitalCT ABDOMEN/PELVIS P3365-05-10 11:46:00 [facility] [address] [address] Patient Name: JOCELIN CORREA MR #: [id number] : 1970 Age/Sex: 49/M Req #: [id number] Adm Physician: Ordered by: YAMILET STEVENS, SANDY STEVENS Report #: [id number] Location: ER Ro om/Bed: Procedure: [id number] CT/CT ABDO MEN/PELVIS W Exam Date: 10/01/19 Exam Time: 919 REPORT STATUS: Signed CT of the abd omen and pelvis. Comparison: CT of the abdomen and pelvis 08/28/2019 Cl inical History: Abdominal pain, nausea, vomiting Technique: Helical CT sca n of the abdomen and pelvis was performed. Intravenous contrast administratio n was utilized. Oral contrast administration was utilized. Coronal and sagitt al reconstructions were generated from the raw data. Multiple images were sub mitted for interpretation. This exam was performed according to our [employer] ental dose-optimization program which includes automated exposure control, adj ustment of the mA and/or kV according to patient size Discussion: I nferior chest: Bilateral dependent atelectasis. Heart size normal. No pericard ial effusion. No pleural effusion. Moderate bilateral gynecomastia. Liver: Lo bar volume redistribution. No focal mass seen on this exam. There is presence of a large number of venous collaterals in the gastrohepatic ligament. This jimenes ggests presence of portosystemic collaterals and portal hypertension. The main portal vein shows linear filling defects. The right and left branch lópez l veins are patent. These filling defects most likely representing portal vein thrombus is significantly improved compared with the previous exam. The splen ic vein and inferior mesenteric vein are patent. . There is partial wall adher ent thrombus of the medial wall of the superior mesenteric vein. This is not s ignificantly changed compared with the previous exam. There is presence of mild abdominal ascites. This altogether is suggestive of liver cirrhosis. Spleen: Bordering on splenomegaly. Pancreas: Unremarkable Biliary tree and gallbladder: Unremarkable Adrenal glands: Unremarkable Kidneys and ureter s: Unremarkable Vasculature: Unremarkable Lymph nodes: No lymphadenopathy Bowel: Esophagus unremarkable. Stomach unremarkable. Duodenum distended with orally administered contrast medium. There is presence of multiple abnormally fluid containing cysts distended loops of the jejunum and proximal ileum in th e upper abdomen the transition into nondistended loops of ileum just above or at the level of the umbilicus. There is no wall thickening of these loops. The re is no pneumatosis of these loops. There is no portal venous gas. There is mesenteric stranding. The superior mesenteric artery branches are patent. There is poor passage of orally administered contrast medium beyond the proximal jejunum. Along with the distal ileum, the entire colon is nondistended. There is no free intraperitoneal air. Pelvis: Urinary bladder is unremarkable. P rostate unremarkable. Seminal vesicles unremarkable. Pelvic wall unremarkable. Peritoneum: In addition to trace generalized ascites, there is presence of loculated ascites in the perihepatic space and extending inferiorly along the anterior right abdominal wall almost to the level of the umbilicus. It is situ ated anterior to the distended loops of bowel. It shows enhancing mckee. This might represent inflamed or infected loculated collection. Perineal compar tments: unremarkable. Fluid: As above Bones: No aggressive bony lesions. Body wall: Unremarkable Impression: Multiple abnormal findin gs on this CT. There is small bowel obstruction with the transition point in t he mid abdomen as described. There is improvement of the portal vein thromb us. There is no change in the superior mesenteric vein wall adherent thrombus. There is presence of loculated ascites with enhancing mckee raising the possibility of infection and/or inflammation. Likely liver cirrhosis. Signed by: Dionicio Whittington MD on 10/01/2019 12:04 PM Dictated B y: DIONICIO WHITTINGTON MD 03 Transcribed By: ZAHEER on 10/01/191203 COPY TO: SANDY WOODARD CHEST SINGLE (PORTABLE)2019-10-01 09:18:00 [place] [address] Patient Name: JOCELIN CORREA MR #: [id number] : 1970 Age/Sex: 49/M Req #: [id number] Adm Physician: Ordered by: SANDY WOODARD MD, MD Report #: [id number] Location: ER Room/Bed: Procedure: [id number] DX/CHEST S BRAD (PORTABLE) Exam Date: 10/01/19 Exam Time: 0850 REPORT STATUS: [facility] Comparison: CT 09/01/2019 History: Abdominal pain F indings: Poor inspiratory effort. Otherwise for the technique, central airways , cardiomediastinal silhouettes, pleural spaces, diaphragms, lung thompson, visu alized skeletal structures, extrathoracic soft tissues appear unremarkable. Impression: No significant abnormality on this exam. Signed by: Dionicio samuels MD on 10/01/2019 9:21 AM Dictated By: DIONICIO WHITTINGTON MD [facility] avelina Signed By: DIONICIO WHITTINGTON MD on 10/01/19920 Transcribed By: ZAHEER on 10/01/19920 COPY TO: SANDY WOODARD Fluoroscopic procedure less than one hour getjurno9771-44-02 07:45:00* Test Item Value Reference Range Interpretation Comments Differential Total Cells Counted (test code = Kath paulson Total Cells Counted) 100 [facility] blood neutrophils/100 leukocytes 2019-10-01 07:45:00* Test Item Value Reference Range Interpretation Comments Neutrophils % (Manual) (test code = 16159-2) 75 40-74 [facility] blood band neutrophils form/100 frqksgvhhu8689-80-46 07:45:00* Test Item Value Reference Range Interpretation Comments Band Neutrophils % (test code = 764-1) 4 [facility] blood lymphocytes/100 leukocytes 2019-10-01 07:45:00* Test Item Value Reference Range Interpretation Comments Lymphocytes % (Manual) (test code = 737-7) 9 19-48 [facility] blood monocytes/100 leukocytes 2019-10-01 07:45:00* Test Item Value Reference Range Interpretation Comments Monocytes % (Manual) (test code = 744-3) 8 3.4-9.0 [facility] blood eosinophil count as percentage of total obycyvhogb7239-95-36 07:45:00* Test Item Value Reference Range Interpretation Comments Eosinophils % (Manual) (test code = 714-6) 4 0-7 [facility] creatine kinase measurement (enzymatic activity/volume)2019-10-01 07:45:00* Test Item Value Reference Range Interpretation Comments Creatine Kinase (test code = 2157-6) 20 30-200 [facility] plasma creatine kinase MB measurement (mass/volume)2019-10-01 07:45:00* Test Item Value Reference Range Interpretation Comments Creatine Kinase MB (test code = 37936-9) 0.30 0-5.0 [facility] by highly sensitive enzyme qpiwjdeadbe4433-05-01 07:45:00* Test Item Value Reference Range Interpretation Comments Troponin I (test code = 16276-8) 0.013 0-0.300 [facility] plasma lipase measurement (enzymatic activity/volume)2019-10-01 07:45:00* Test Item Value Reference Range Interpretation Comments Lipase (test code = 3040-3) 48 8-78 [facility] sodium measurement (moles/volume)2019-09-02 15:30:00* Test Item Value Reference Range Interpretation Comments Sodium Level (test code = 2951-2) 138 136-145 [facility] potassium measurement (moles/volume)2019-09-02 15:30:00* Test Item Value Reference Range Interpretation Comments Potassium Level (test code = 2823-3) 3.6 3.5-5.1 [facility] chloride measurement (moles/volume)2019-09-02 15:30:00* Test Item Value Reference Range Interpretation Comments Chloride Level (test code = 2075-0) 107 98-107 [facility] carbon dioxide, total measurement (moles/volume)2019-09-02 15:30:00* Test Item Value Reference Range Interpretation Comments Carbon Dioxide Level (test code = 2028-9) 26 22-29 [facility] anion kkb5546-01-02 15:30:00* Test Item Value Reference Range Interpretation Comments Anion Gap (test code = 90422-8) 8.6 8-16 [facility] urea nitrogen measurement (mass/volume)2019-09-02 15:30:00* Test Item Value Reference Range Interpretation Comments Blood Urea Nitrogen (test code = 3094-0) 11 7-26 [facility] creatinine measurement (mass/volume)2019-09-02 15:30:00* Test Item Value Reference Range Interpretation Comments Creatinine (test code = 2160-0) 1.05 0.72-1.25 [facility] plasma urea nitrogen/creatinine mass mjgil0164-48-55 15:30:00* Test Item Value Reference Range Interpretation Comments BUN/Creatinine Ratio (test code = 3097-3) 10 6-25 [facility] HospitalEstimated glomerular filtration rate (GFR) yvvrehwfjjqjt3777-65-80 15:30:00* Test Item Value Reference Range Interpretation Comments Estimat Glomerular Filtration Rate (test code = 188514426) > 60 >60 Ranges were taken from the National Kidney Disease Education Program and the [employer] literature.Reference ranges:60 or greater: Torcro86-19 ( for 3 consecutive months): Chronic kidney disease 15 or less: Kidney failureMethodist McKinney HospitalGlucose sspimsiormt2033-68-82 15:30:00* Test Item Value Reference Range Interpretation Comments Glucose Level (test code = NDZ3137) 104 74-118 [facility] plasma calcium measurement (mass/volume)2019-09-02 15:30:00* Test Item Value Reference Range Interpretation Comments Calcium Level (test code = 75277-7) 7.4 8.4-10.2 [facility] total bilirubin measurement (mass/volume)2019-09-02 15:30:00* Test Item Value Reference Range Interpretation Comments Total Bilirubin (test code = 1975-2) 1.4 0.2-1.2 [facility] HospitalFluoroscopic procedure less than one hour demnwndu8680-35-89 15:30:00* Test Item Value Reference Range Interpretation Comments Aspartate Amino Transf (AST/SGOT) (test code = Aspartate Amino Transf (AST/SGOT)) 30 5-34 [facility] or plasma alanine aminotransferase measurement (enzymatic activity/volume)2019-09-02 15:30:00* Test Item Value Reference Range Interpretation Comments Alanine Aminotransferase (ALT/SGPT) (test code = 1742-6) 12 0-55 [facility] plasma protein measurement (mass/volume)2019-09-02 15:30:00* Test Item Value Reference Range Interpretation Comments Total Protein (test code = 2885-2) 6.2 6.5-8.1 [facility] plasma albumin measurement (mass/volume)2019-09-02 15:30:00* Test Item Value Reference Range Interpretation Comments Albumin (test code = 1751-7) 2.1 3.5-5.0 [facility] HospitalPlasma globulin measurement (mass/volume) 2019-09-02 15:30:00* Test Item Value Reference Range Interpretation Comments Globulin (test code = 21787-3) 4.1 2.3-3.5 [facility] albumin/globulin mass veaxs4567-08-68 15:30:00* Test Item Value Reference Range Interpretation Comments Albumin/Globulin Ratio (test code = 1759-0) 0.5 0.8-2.0 [facility] plasma alkaline phosphatase measurement (enzymatic activity/volume)2019-09-02 15:30:00* Test Item Value Reference Range Interpretation Comments Alkaline Phosphatase (test code = 6768-6) 41 40-150 [facility] HospitalUS ABDOMEN JBPDQST2896-21-85 10:42:00 [facility] [address] [place] [address] Patient Name: JOCELIN CORREA MR #: [id number] : 1970 Age/Sex: 49/M Req #: [id number] Adm Physician: DAVI KELLY MD Ordered by: Marissa Mulligan OSTEOLOGY TEACHER Report #: [id number] Location: MED/SURG3 Room/Bed: [facility] Procedure: [id number] US/US ABDOMEN LIMITED Exam Date: 09/02/19 Exam Time: 1000 REPORT STATUS: Signed Abdominal Ultraso und Limited Clinical Diagnosis: Look for ascites Comparison: None Technique: Multiple transaxial and longitudinal images were obtained through the 4 quadrants of the abdomen abdomen with real time ultrasonography. A low f requency curvilinear transducer was utilized. Multiple images were submitted for interpretation. Report: There is minimal ascites seen only in the right upper quadrant. Impression: As above. Signed by: Dionicio Whittington MD on 09/02/2019 10:44 AM Dictated By: DIONICIO WHITTINGTON MD 1044 Transcribed By: ZAHEER on 09/02/19 10 44 COPY TO: MARISSA MULLIGAN NP Ammonia Ieq-kGgu4180-03-22 10:00:00* Test Item Value Reference Range Interpretation Comments Ammonia (test code = 63486-7) 122 31-123 [facility]Blood leukocytes automated count (number/volume)2019-09-02 05:15:00* Test Item Value Reference Range Interpretation Comments White Blood Count (test code = 6690-2) 2.59 4.8-10.8 [facility] HospitalBl[facility] erythrocytes automated count (number/volume)2019-09-02 05:15:00* Test Item Value Reference Range Interpretation Comments Red Blood Count (test code = 789-8) 3.29 4.3-5.7 [facility]Blood hemoglobin measurement (moles/volume)2019-09-02 05:15:00* Test Item Value Reference Range Interpretation Comments Hemoglobin (test code = 24691-0) 8.0 14.0-18.0 [facility] HospitalAutomated blood hematocrit (volume fraction)2019-09-02 05:15:00* Test Item Value Reference Range Interpretation Comments Hematocrit (test code = 4544-3) 25.9 38.2-49.6 [facility] HospitalAutomated erythrocyte mean corpuscular qyfmgq5333-08-87 05:15:00* Test Item Value Reference Range Interpretation Comments Mean Corpuscular Volume (test code = 787-2) 78.7 81-99 [facility] HospitalAutomated erythrocyte mean corpuscular hemoglobin (mass per erythrocyte)2019-09-02 05:15:00* Test Item Value Reference Range Interpretation Comments Mean Corpuscular Hemoglobin (test code = 785-6) 24.3 28-32 [facility] HospitalAutomated erythrocyte mean corpuscular hemoglobin concentration measurement (mass/volume)2019-09-02 05:15:00* Test Item Value Reference Range Interpretation Comments Mean Corpuscular Hemoglobin Concent (test code = 786-4) 30.9 31-35 [facility] HospitalRDW JgrTl-Gyz2920-37-22 05:15:00* Test Item Value Reference Range Interpretation Comments Red Cell Distribution Width (test code = 89337-0) 27.2 11.7 -14.4 [facility] HospitalAutomated blood platelet count (count/volume)2019-09-02 05:15:00* Test Item Value Reference Range Interpretation Comments Platelet Count (test code = 777-3) 34 140-360 Results repeated and called to REENA GRIFFIN RN at 0619 on 09/02/19 by Michael murillo. Read back and verified.[facility] HospitalAutomated blood segmented neutrophil count as percentage of total fdgrjzdcny8601-01-09 05:15:00* Test Item Value Reference Range Interpretation Comments Neutrophils (%) (Auto) (test code = 27412-4) 46.0 38.7-80.0 [facility] HospitalAutomated blood lymphocyte count as percentage ot total ynhkihklco2214-72-04 05:15:00* Test Item Value Reference Range Interpretation Comments Lymphocytes (%) (Auto) (test code = 736-9) 18.9 18.0-39.1 [facility] HospitalAutomated blood monocyte count as percentage of total zkpztlxhpm2487-65-30 05:15:00* Test Item Value Reference Range Interpretation Comments Monocytes (%) (Auto) (test code = 5905-5) 27.4 4.4-11.3 [facility] HospitalAutomated blood eosinophil count as percentage of total rkblfzoobv4745-02-58 05:15:00* Test Item Value Reference Range Interpretation Comments Eosinophils (%) (Auto) (test code = 713-8) 6.9 0.0-6.0 [facility] HospitalAutomated blood basophil count as percentage of total nqajpmwtdt1431-04-79 05:15:00* Test Item Value Reference Range Interpretation Comments Basophils (%) (Auto) (test code = 706-2) 0.4 0.0-1.0 [facility] HospitalFluoroscopic procedure less than one hour utffxxgh2358-89-30 05:15:00* Test Item Value Reference Range Interpretation Comments IM GRANULOCYTES % (test code = IM GRANULOCYTES %) 0.4 0.0- 1.0 [facility] HospitalAutomated blood neutrophil count 2019-09-02 05:15:00* Test Item Value Reference Range Interpretation Comments Neutrophils # (Auto) (test code = 751-8) 1.2 2.1-6.9 [facility] HospitalBlood lymphocytes count (number/volume) 2019-09-02 05:15:00* Test Item Value Reference Range Interpretation Comments Lymphocytes # (Auto) (test code = 34617-5) 0.5 1.0-3.2 [facility]Blnew [facility] monocytes automated count (number/volume)2019-09-02 05:15:00* Test Item Value Reference Range Interpretation Comments Monocytes # (Auto) (test code = 742-7) 0.7 0.2-0.8 [facility] HospitalAutomated blood eosinophil count 2019-09-02 05:15:00* Test Item Value Reference Range Interpretation Comments Eosinophils # (Auto) (test code = 711-2) 0.2 0.0-0.4 [facility] HospitalAutomated blood basophil count (count/volume)2019-09-02 05:15:00* Test Item Value Reference Range Interpretation Comments Basophils # (Auto) (test code = 704-7) 0.0 0.0-0.1 [facility] HospitalFluoroscopic procedure less than one hour tbvjzkbi3825-96-22 05:15:00* Test Item Value Reference Range Interpretation Comments Absolute Immature Granulocyte (auto ([place] t code = Absolute Immature Granulocyte (auto) 0.01 0-0.1 [facility] HospitalFluoroscopic procedure less than one hour avedkjdt7465-84-61 05:15:00* Test Item Value Reference Range Interpretation Comments Differential Total Cells Counted (test code = Differen tial Total Cells Counted) 100 [facility] HospitalManual blood neutrophils/100 leukocytes 2019-09-02 05:15:00* Test Item Value Reference Range Interpretation Comments Neutrophils % (Manual) (test code = 15463-6) 66 40-74 [facility] blood band neutrophils form/100 yrtwowldnz8104-92-69 05:15:00* Test Item Value Reference Range Interpretation Comments Band Neutrophils % (test code = 764-1) 1 [facility] blood lymphocytes/100 leukocytes 2019-09-02 05:15:00* Test Item Value Reference Range Interpretation Comments Lymphocytes % (Manual) (test code = 737-7) 16 19-48 [facility] monocytes/100 leukocytes 2019-09-02 05:15:00* Test Item Value Reference Range Interpretation Comments Monocytes % (Manual) (test code = 744-3) 14 3.4-9.0 [facility] blood eosinophil count as percentage of total skaygvfvbh7700-46-12 05:15:00* Test Item Value Reference Range Interpretation Comments Eosinophils % (Manual) (test code = 714-6) 3 0-7 [facility] by estimate (number/volume)2019-09-02 05:15:00* Test Item Value Reference Range Interpretation Comments Platelet Estimate (test code = 34850-2) MARKEDLY DECREASED [facility] HospitalPlatelet mgdmsvffgu5339-37-57 05:15:00* Test Item Value Reference Range Interpretation Comments Platelet Morphology Comment (test code = 18298-1) FEW LARGE [facility] polychromasia detection by light ndywsuhifz9853-89-95 05:15:00* Test Item Value Reference Range Interpretation Comments Polychromasia (test code = 64752-8) [facility]W [facility] hypochrom[facility] detection by light lnntnoietn9058-15-63 05:15:00* Test Item Value Reference Range Interpretation Comments Hypochromasia (test code = 728-6) MODERATE [facility] anisocytosis detection by light imzseebhsw0317-31-86 05:15:00* Test Item Value Reference Range Interpretation Comments Anisocytosis (test code = 702-1) MARKED [facility] microcytes detection by light yfxhgzjfeu6289-27-58 05:15:00* Test Item Value Reference Range Interpretation Comments Microcytosis (test code = 741-9) SLIGHT [facility] HospitalBlood target cells detection by light gqvvmnpceq7316-06-44 05:15:00* Test Item Value Reference Range Interpretation Comments Target Cells (test code = 74213-2) FEW [facility]Bl[facility] dacrocytes detection by light bdwzliuouj9790-81-74 05:15:00* Test Item Value Reference Range Interpretation Comments Tear Drop Cells (test code = 7791-7) [facility]W [facility] ovalocytes detection by light weyrlypnof9692-00-79 05:15:00* Test Item Value Reference Range Interpretation Comments Ovalocytes (test code = 774-0) FEW [facility] HospitalElliptocyte jbbkvopbh9155-57-92 05:15:00 * Test Item Value Reference Range Interpretation Comments Elliptocytes (test code = 14815-4) SLIGHT [facility] HospitalRBC ipjkijixvl2161-55-11 05:15:00* Test Item Value Reference Range Interpretation Comments Red Cell Morphology Comment (test code = 6742-1) ABNORMAL [facility] magnesium measurement (mass/volume)2019-09-02 05:15:00* Test Item Value Reference Range Interpretation Comments Magnesium Level (test code = 54271-6) 1.1 1.3-2.1 Results repeated and called to REENA GRIFFIN RN at 0632 on 09/02/19 by Michael sorensen Read back and verified.[facility]Bl[facility] polychromasia detection by light oduhtlyblo2328-84-67 05:15:00* Test Item Value Reference Range Interpretation Comments Polychromasia (test code = 73860-9) FEW [facility]Blood hypochromia detection by light ifewhwmqrj4449-91-66 05:15:00* Test Item Value Reference Range Interpretation Comments Hypochromasia (test code = 728-6) [facility] anisocytosis detection by light rhzwrcrzuw1205-95-01 05:15:00* Test Item Value Reference Range Interpretation Comments Anisocytosis (test code = 702-1) MARKED [facility] microcytes detection by light cabdalvbko7215-48-05 05:15:00* Test Item Value Reference Range Interpretation Comments Microcytosis (test code = 741-9) SLIGHT [facility] target cells detection by light haaljbxhlk3537-13-02 05:15:00* Test Item Value Reference Range Interpretation Comments Target Cells (test code = 24585-9) FEW [facility] dacrocytes detection by light zvgtrdcmdg4424-07-64 05:15:00* Test Item Value Reference Range Interpretation Comments Tear Drop Cells (test code = 7791-7) FEW [facility]Blood ovalocytes detection by light axlpqptwko3349-55-35 05:15:00* Test Item Value Reference Range Interpretation Comments Ovalocytes (test code = 774-0) [facility] kievkpdhq8855-64-57 05:15:00 * Test Item Value Reference Range Interpretation Comments Elliptocytes (test code = 21093-7) SLIGHT [facility] kqglcwe3298-41-02 11:50:00* Test Item Value Reference Range Interpretation Comments Blood Culture (test code = 97114623) NO GROWTH AFTER 24 HOURS [facility] pfqapcc8818-08-55 11:50:00* Test Item Value Reference Range Interpretation Comments Blood Culture (test code = 32347963) NO GROWTH AFTER 5 DAYS, FINAL REPORT [facility] HospitalFluoroscopic procedure less than one hour sgetgaaf3688-68-30 11:40:00* Test Item Value Reference Range Interpretation Comments Coronavirus (PCR) (test code = Coronavirus (PCR)) NOT DETECTED NOTD ETECTED SARS-COV2/RT-PCRNegative results do not preclude SARS-CoV-2 infection and should not be used as the sole basis for patient management decisions. Negative result s must be combined with clinical observations, patient history, and epidemiologi susie information. A false negative result may occur if a specimen is improperly c ollected, transported or handled.The limit of detection for this assay is 250 co pies/mLThe SARS-CoV-2 test is a rapid, real-time RT-PCR test intended for the qu alitative detection of nucleic acid from SARS-CoV-2 in nasopharyngeal swab speci men collected from individuals suspected of COVID-19 by their healthcare provide r. This test has not been Food and Drug Administration (FDA) cleared or approved and has been authorized by FDA under an Emergency Use Authorization (EUA). This EUA will be effective until the declaration that circumstances exist justifying the authorization of the emergency use of in vitro diagnostic test for detectio n and or diagnosis of COVID-19 is terminated under section 564(b) of the Act, or the the EUA is revoked under 564(g) of the ACT.Testing performed by [id number] [place], [place] [address]CT CHEST ZO9800-96-45 10:41:00 [facility] [address] [address] Patient Name: JOCELIN CORREA MR #: [id number] : 1970 Age/Sex: 49/M Req #: [id number] Adm Physician: DAVI KELLY MD Ordered by: Marissa Mulligan OSTEOLOGY TEACHER Report #: [id number] Location: MED/SURG3 Room/Bed: [facility] Procedure: [id number] CT/CT CHEST W O Exam Date: 09/01/19 Exam Time: 1000 REPORT STATUS: Signed CT chest without enhance ment CPT code: 96942 INDICATION: Pneumonia, cough TECHNIQUE: Th in collimation axial images obtained from the thoracic inlet to the level of t he diaphragm without intravenous contrast. Dose reduction techniques used: Automated exposure control, adjustment of the mAs and/or kVp according to farnaz ent size, standardized low-dose protocol, and/or iterative reconstruction tech nique. RADIATION DOSE: Total DLP: 443.54 mGy*cm Estimated eff ective dose: (DLP x 0.015 x size factor) mSv CTDIvol has been reviewed. I t is below the limits set by the Radiation Protocol Committee (RPC). COMP ARISON: CT abdomen/pelvis 08/28/2019. CHEST FINDINGS: Lymph nodes: No enlarged axillary, supraclavicular, or mediastinal lymph nodes. Left of intrav enous contrast limits evaluation of the darrian for lymphadenopathy Thyroid: V isualized portions are normal. Mediastinum: The heart is mildly enlarged. M ain pulmonary artery measures 3.5 cm. The ascending aorta measures 3.2 cm. No pericardial effusion. The esophagus is normal. Lungs: Right: No con fluent infiltrates. Trace basilar atelectasis. Left: No confluent infiltrat es. Trace basilar atelectasis and atelectasis in the anterior basal segment of the lower lobe. Pleura: No pleural effusions or pleural based mass.. ABDOMEN FINDINGS: Small amount of ascites. Lobulated hepatic contours suggesti ve of cirrhosis. Splenomegaly. Bones: Mild degenerative changes of the th oracic spine. No compression deformities or focal osseous lesions. Soft t issues: Moderate bilateral gynecomastia. IMPRESSION: 1. No evidence o f pulmonary infiltrate to suggest pneumonia. 2. Cardiomegaly. Enlarged p ulmonary artery suggestive of pulmonary artery hypertension. 3. Splenomeg harvey, abdominal ascites, and bilateral gynecomastia. Lobulated hepatic contours suggestive of cirrhosis. Signed by: Dr. Cinda Gipson MD on 09/01/2019 10:58 AM Dictated By: CINDA GIPSON MD 1058 Transcribed By: ZAHEER on 09/01/19 1058 COPY TO: MARISSA MULLIGAN OSTEOLOGY TEACHER CHEST SINGLE (PORTABLE)2019-09-01 07:56:00 [place] [address] Patient Name: JOCELIN CORREA MR #: [id number] : 1970 Age/Sex: 49/M Req #: [id number] Adm Physician: DAVI KELLY MD Ordered by: AMARA GUTHRIE MD Report #: [id number] Location: MED/SURG3 Room/Bed: 2981 Procedure: DX/CHEST SING LE (PORTABLE) Exam Date: 09/01/19 Exam Time: 0600 REPORT STATUS: Signed EXAMINATION: CHEST SINGLE (PORTABLE) COMPARISON: Chest x-ray 08/25/2019 INDICA TION: Shortness of breath, pneumonia Pneumonia [id number] 0600 D ISCUSSION: Frontal view of the chest obtained at 0636 hours. HEART AND ME DIASTINUM: The heart is top normal in size, stable. LINES: None. L UNGS/PLEURA: Right perihilar airspace opacity is similar. No new airspace opa cities in the left lung. No pleural effusion or pneumothorax. BONES AND SO FT TISSUES: No focal osseous lesion. The soft tissues are normal. IMPRE SSION: No change in right perihilar airspace opacity. Recommend correlation w ith PA and lateral chest x-ray if clinically feasible. Signed by: Dr. Santiago Gipson MD on 09/01/2019 7:57 AM Dictated By: CINDA GIPSON MD 6 Transcribed B y: ZAHEER on 09/01/19756 COPY TO: AMARA GUTHRIE MD Urine color gwfhkfadmmxme9009-77-40 06:10:00* Test Item Value Reference Range Interpretation Comments Urine Color (test code = 5778-6) YELLOW YELLOW [facility] ghwwhpr7101-67-24 06:10:00* Test Item Value Reference Range Interpretation Comments Urine Clarity (test code = 32469-2) CLOUDY CLEAR [facility] Urine by Test strip 2019-09-01 06:10:00* Test Item Value Reference Range Interpretation Comments Urine Specific [place] (test code = 5811-5) 1.020 1.010-1.02 5 [facility] pH measurement by automated test amriy7164-74-33 06:10:00* Test Item Value Reference Range Interpretation Comments Urine pH (test code = 32318-5) 7 5-7 [facility] leukocyte esterase detection by nhlmuclo8174-24-92 06:10:00* Test Item Value Reference Range Interpretation Comments Urine Leukocyte Esterase (test code = 5799-2) NEGATIVE NEGATIVE [facility] nitrite zpdqionlt6689-64-96 06:10:00* Test Item Value Reference Range Interpretation Comments Urine Nitrite (test code = 12172-5) NEGATIVE NEGATIVE [facility] protein measurement by test strip (mass/volume)2019-09-01 06:10:00* Test Item Value Reference Range Interpretation Comments Urine Protein (test code = 5804-0) 1+ NEGATIVE [facility] glucose rxkipofqv2030-64-29 06:10:00* Test Item Value Reference Range Interpretation Comments Urine Glucose (UA) (test code = 2349-9) NEGATIVE NEGATIVE [facility] ketones detection by automated test rwujk1541-45-02 06:10:00* Test Item Value Reference Range Interpretation Comments Urine Ketones (test code = 31948-8) NEGATIVE NEGATIVE [facility] urobilinogen measurement by test strip (mass/volume)2019-09-01 06:10:00* Test Item Value Reference Range Interpretation Comments Urine Urobilinogen (test code = 77483-7) 2 0.2-1 [facility] total bilirubin measurement (mass/volume)2019-09-01 06:10:00* Test Item Value Reference Range Interpretation Comments Urine Bilirubin (test code = 1978-6) SMALL NEGATIVE [facility] erythrocytes pkaitmehq5306-09-71 06:10:00* Test Item Value Reference Range Interpretation Comments Urine Blood (test code = 29377-7) LARGE NEGATIVE [facility] HospitalAutomated urine sediment leukocyte count by microscopy (number/high power field)2019-09-01 06:10:00* Test Item Value Reference Range Interpretation Comments Urine WBC (test code = 5821-4) >50 0-5 [facility] HospitalErythrocytes detection in urine sediment by light sngwiijxic3214-33-81 06:10:00* Test Item Value Reference Range Interpretation Comments Urine RBC (test code = 01105-9) >50 0-5 [facility] HospitalBacteria detection in urine sediment by light jwrgdojuud3952-52-83 06:10:00* Test Item Value Reference Range Interpretation Comments Urine Bacteria (test code = 90634-1) MODERATE NONE [facility] HospitalEpithelial cells detection in urine sediment by light lkxpdpjjjo7232-31-83 06:10:00* Test Item Value Reference Range Interpretation Comments Urine Epithelial Cells (test code = 41276-9) RARE NONE [facility] Centertool lactoferrin suhzlistp6373-06-84 06:10:00* Test Item Value Reference Range Interpretation Comments Stool Lactoferrin (LAB) (test code = 03096-6) NEGATIVE NEGATIVE Testing on stool aspirate specimens is outside [employer] claims since specime n type not validated on this assay.[facility] Centertool lactoferrin sfowriqqr6820-03-67 06:10:00* Test Item Value Reference Range Interpretation Comments Stool Lactoferrin (LAB) (test code = 55341-8) NEGATIVE NEGATIVE Testing on stool aspirate specimens is outside [employer] claims since specime n type not validated on this assay.[facility] HospitalCT [facility]BDOM[facility]/PELVIS Z9769-57-06 10:31:00 [place] [address] Patient Name: JOCELIN CORREA MR #: [id number] : 1970 Age/Sex: 49/M Req #: [id number] Adm Physician: DAVI KELLY MD Ordered by: AMARA GUTHRIE MD Report #: [id number] Location: MED/SURG3 Room/Bed: [facility] Procedure: [id number] CT/CT ABDOMEN /PELVIS W Exam Date: 08/28/19 Exam Time: 1000 REPORT STATUS: Signed EXAM: CT of the abdomen and pelvis with intravenous contrast HISTORY: abdominal pain [id number] COMPARISON: 5 days prior TECHNIQUE: Abdomen and pelv is were scanned utilizing a multidetector helical scanner. Coronal and sagitta l reformations were obtained. Scan was performed during the portal venous phas e. DOSE REDUCTION: The examination was performed according to the [facility] dose-optimization program, which includes automated exposure control, ad justment of the mA and/or kV according to patient size and/or use of iterative reconstruction technique. IMPRESSION: 1. No signifi cant change compared to the exam 5 days prior. 2. Again noted is the near o cclusive likely acute portal vein thrombus. In this patient with a history of hematochezia and abdominal pain, findings are concerning for bowel ischemia. C onsider anticoagulation and consultation for possible TIPS placement. Add itional findings: -Diffuse mesenteric edema. -Partially visualized gynecomas tia. Signed by: Cash Nix MD on 08/28/2019 10:40 AM Dictated By: CASH NIX DO 1040 Transcribed By: ZAHEER on 08/28/19 1040 COPY TO: AMARA GUTHRIE MD Activated partial thromboplastin time (aPTT) in platelet poor plasma by coagulation ckiiw3699-01-57 05:30:00* Test Item Value Reference Range Interpretation Comments Activated Partial Thromboplast Time (test code = 93749-6) 43.5 23.8-35.5 [facility] HospitalPhosphorus dnctzbnnffj7371-62-52 05:30:00 * Test Item Value Reference Range Interpretation Comments Phosphorus Level (test code = GQF7216) 2.6 2.3-4.7 [facility] HospitalActivated partial thromboplastin time (aPTT) in platelet poor plasma by coagulation avvyd6626-96-95 05:30:00* Test Item Value Reference Range Interpretation Comments Activated Partial Thromboplast Time (test code = 92105-4) 43.5 23.8-35.5 [facility] HospitalPhosphorus npywxsxpakv8190-22-65 05:30:00 * Test Item Value Reference Range Interpretation Comments Phosphorus Level (test code = VVY4912) 2.6 2.3-4.7 [facility] Centererum or plasma C reactive protein measurement (mass/volume)2019-08-27 09:00:00* Test Item Value Reference Range Interpretation Comments C-Reactive Protein (test code = 1987-5) 3 0-10 Performed at: [facility] [address] [id number] Director: Lopez Morgan MD, Phone: [phone] Regional Medical Centererum or plasma C reactive protein measurement (mass/volume)2019-08-27 09:00:00* Test Item Value Reference Range Interpretation Comments C-Reactive Protein (test code = 1987-5) 3 0-10 Performed at: [facility] [address] [id number] Director: Lopez Morgan MD, Phone: [phone] Regional Medical Centererum or plasma amylase measurement (enzymatic activity/volume)2019-08-27 02:10:00* Test Item Value Reference Range Interpretation Comments Amylase Level (test code = 1798-8) 65 25-125 [facility] Centererum or plasma lipase measurement (enzymatic activity/volume)2019-08-27 02:10:00* Test Item Value Reference Range Interpretation Comments Lipase (test code = 3040-3) 22 8-78 [facility] Centererum or plasma amylase measurement (enzymatic activity/volume)2019-08-27 02:10:00* Test Item Value Reference Range Interpretation Comments Amylase Level (test code = 1798-8) 65 25-125 [facility] HospitalUrine sodium measurement (moles/volume) 2019-08-27 00:55:00* Test Item Value Reference Range Interpretation Comments Urine Random Sodium (test code = 2955-3) 60 [facility] HospitalUrine creatinine measurement (mass/volume)2019-08-27 00:55:00* Test Item Value Reference Range Interpretation Comments Urine Creatinine (test code = 2161-8) 228.30 86-166 [facility] HospitalUrine sodium measurement (moles/volume) 2019-08-27 00:55:00* Test Item Value Reference Range Interpretation Comments Urine Random Sodium (test code = 2955-3) 60 [facility] HospitalUrine creatinine measurement (mass/volume)2019-08-27 00:55:00* Test Item Value Reference Range Interpretation Comments Urine Creatinine (test code = 2161-8) 228.30 85-166 [facility] HospitalUS RENAL RETROPERITONEAL CJJJ1503-56-16 13:47:00 [facility] [address] [place] [address] Patient Name: JOCELIN CORREA MR #: [id number] : 1970 Age/Sex: 49/M Req #: [id number] Adm Physician: DAVI KELLY MD Ordered by: APPLE QUIROZ MD Report #: [id number] Location: [facility]/SURG3 Room/Bed: [facility] Procedure: [id number] US/US RENAL RET ROPERITONEAL COMP Exam Date: 08/26/19 Exam Time: 124 2 REPORT STATUS: Signed EXAM: U S RENAL RETROPERITONEAL COMP DATE: 08/26/2019 12:42 PM INDICATION: Ac rey kidney injury COMPARISON: CT from 08/23/2019 FINDINGS: The righ t kidney is normal in size measuring 11.1 x 7.1 x 5.5 cm with cortical thickne ss of 2.6 cm. Cortical echogenicity is within normal limits. There is no evide nce for solid renal mass, hydronephrosis, or shadowing calculi. The left ki dney is normal in size measuring 11.7 x 6.3 x 5.2 cm with cortical thickness o f 2.5 cm. The echogenicity is within normal limits. There is no evidence for s olid renal mass, hydronephrosis, or shadowing calculi. The urinary bladder is only partially distended but appears grossly unremarkable. IMPRESS ION: Unremarkable sonographic appearance of the kidneys. Signed by: Dr Franca Connelly MD on 08/26/2019 1:49 PM Dictated By: DAO CONNELLY MD [place] ctronically Signed By: DAO CONNELLY MD on 08/26/19 134 Transcribed By: ZAHEER on 08/26/19 134 COPY TO: APPLE QUIROZ MD US ABDOMEN LIMITED 2019-08-26 11:13:00 [place] [address] Patient Name: JOCELIN CORREA MR #: [id number] : 1970 Age/Sex: 49/M Req #: [id number] Adm Physician: DAVI KELLY MD Ordered by: AMARA GUTHRIE MD Report #: [id number] Location: [facility] Room/Bed: [facility] Procedure: [id number] US/US ABDOMEN LIMITED Exam Date: 08/26/19 Exam Time: 724 REPORT STATUS: Signed EXAM: US ABDOMEN LIMITED DATE: 08/26/2019 7:25 AM INDICATION: Portal vein thrombus, a bdominal pain COMPARISON: CT abdomen/pelvis from 08/23/2019 FINDINGS: Please note that midline structures are suboptimally evaluated secondary to prominent midline bowel gas. The pancreas is not well visualized secondary to prominent overlying bowel gas. The liver is normal in size measuring 12 .9 cm in length. The hepatic parenchyma appears diffusely increased in echogen icity suggesting fatty infiltration. The liver also demonstrates a subtle nodu lar contour which can be seen in the setting of hepatic dysfunction/cirrhosis. No focal hepatic abnormalities are identified. Please note a detailed abdomin al Doppler evaluation was not ordered/performed. Partially visualized nonocclu sive thrombus is again noted with antegrade flow noted within the main portal vein at the hepatic hilum. The main portal vein measures 1.1 cm in diameter. The gallbladder is unremarkable. There is no evidence for cholelithiasis, gallbladder wall thickening, or pericholecystic fluid. There is no intra or ex trahepatic biliary ductal dilatation. The common bile duct measures 4 mm. Sono graphic Thomas's sign is negative. The right kidney is normal in size measu ring 9.6 cm in length with normal cortical thickness/echogenicity. There is no evidence for solid renal mass, hydronephrosis, or shadowing likely calculi. The IVC and aorta are not well-visualized sonographically secondary to pro minent midline bowel gas. There is a trace amount of perihepatic ascites pr esent. IMPRESSION: 1. Sonographic findings suggestive of hepatic st eatosis. 2. Nodular contour noted of the liver which can be seen in setting of hepatic dysfunction/cirrhosis. 3. Although this examination was not t ailored for detailed evaluation of the abdominal vasculature, there is partial ly visualized nonocclusive thrombus noted within the main portal vein which wa s better evaluated on the prior contrast enhanced CT examination. 4. Trac e perihepatic ascites. Signed by: Dr. Dao Connelly MD on 08/26/2019 11:20 A M Dictated By: DAO CONNELLY MD 1120 Transcribed By: ZAHEER on 08/26/19 1120 COPY TO: AMARA MCGINNIS MD Automated reticulocyte count as percentage of total ygbzfhbhzmab7453-71-75 06:30:00* Test Item Value Reference Range Interpretation Comments Percent Reticulocyte Count (test code = 92948-0) 0.6 0.8-2 .2 [facility]ererum or plasma iron measurement (mass/volume)2019-08-26 06:30:00* Test Item Value Reference Range Interpretation Comments Iron Level (test code = 2498-4) 36 65-175 [facility] Centererum or plasma iron binding capacity measurement (mass/volume)2019-08-26 06:30:00* Test Item Value Reference Range Interpretation Comments Total Iron Binding Capacity (test code = 2500-7) 421 261-4 78 [facility] Centererum or plasma iron saturation measurement (mass fraction)2019-08-26 06:30:00* Test Item Value Reference Range Interpretation Comments Percent Iron Saturation (test code = 2502-3) 9 15-50 [facility] Centererum or plasma transferrin measurement (mass/volume)2019-08-26 06:30:00* Test Item Value Reference Range Interpretation Comments Transferrin (test code = 3034-6) 301 174-364 [facility] Centererum or plasma ferritin measurement (mass/volume)2019-08-26 06:30:00* Test Item Value Reference Range Interpretation Comments Ferritin (test code = 2276-4) 27.43 21.81-274.66 [facility] Centererum or plasma creatine kinase measurement (enzymatic activity/volume)2019-08-26 06:30:00* Test Item Value Reference Range Interpretation Comments Creatine Kinase (test code = 2157-6) 82 30-200 [facility] Centererum or plasma creatine kinase MB measurement (mass/volume)2019-08-26 06:30:00* Test Item Value Reference Range Interpretation Comments Creatine Kinase MB (test code = 79611-0) 0.60 0-5.0 [facility] HospitalTroponin I measurement by highly sensitive enzyme girwnitenkk3528-69-75 06:30:00* Test Item Value Reference Range Interpretation Comments Troponin I (test code = 18998-3) 0.006 0-0.300 [facility] HospitalBlood cobalamin (vitamin B12) measurement (mass/volume)2019-08-26 06:30:00* Test Item Value Reference Range Interpretation Comments Vitamin B12 Level (test code = 05108-3) 1261 213-816 [facility] Centererum or plasma folate measurement (mass/volume)2019-08-26 06:30:00* Test Item Value Reference Range Interpretation Comments Folate (test code = 2284-8) > 40.0 7.0-15.4 [facility] Centererum or plasma folate measurement (mass/volume)2019-08-26 06:30:00* Test Item Value Reference Range Interpretation Comments Folate (test code = 2284-8) > 40.0 7.0-15.4 [facility] HospitalManual basophil wdtifwufsk1711-13-91 05:50:00* Test Item Value Reference Range Interpretation Comments Basophils % (Manual) (test code = 86880-8) 2 0-1.5 [facility] HospitalProthrombin time (PT) in platelet poor plasma by coagulation vesff5854-42-27 05:50:00* Test Item Value Reference Range Interpretation Comments Prothrombin Time (test code = 5902-2) 17.2 11.9-14.5 [facility] HospitalINR in Platelet poor plasma by Coagulation raudf8534-44-48 05:50:00* Test Item Value Reference Range Interpretation Comments Prothromb Time International Ratio (test code = 6301-6) 1.31 Oral Anticoagulant Therapy INR Values:1. Low Intensity Therapy 1.5 - 2.02 . Moderate Intensity Therapy 2.0 - 3.03. High Intensity Therapy(1) 2.5 - 3. 54. High Intensity Therapy(2) 3.0 - 4.05. Panic Value INR > 5.0 [facility] Centererum or plasma hepatitis C virus RNA detection by probe and target amplification tmaefz3369-34-24 05:50:00* Test Item Value Reference Range Interpretation Comments Hepatitis C RNA Qualitative (PCR) (test code = 08628-7) Negative Negative Negative: HCV RNA Not DetectedPerformed at: [address] [id number] Director: Denisse Dee MD, Phone: [phone] [address] [place], [place] [address]erum or plasma skajh-2-stejwgytimb.tumor marker measurement (mass/volume)2019-08-25 05:50:00* Test Item Value Reference Range Interpretation Comments Alpha Fetoprotein (test code = 15980-8) 3.3 0.0-8.3 [facility] Electrochemiluminescence Immunoassay(ECLIA)Values obtained wit h different assay methods or kits cannotbe used interchangeably. Results cannot be interpreted asabsolute evidence of the presence or absence of malignantdisea se.This test is not interpretable in females.Performed at: [facility] [employer] [facility] [address] [id number] Director: Lopez Morgan MD, Phone: [phone] McKinney HospitalManual basophil hcuzbhkoei7130-78-08 05:50:00* Test Item Value Reference Range Interpretation Comments Basophils % (Manual) (test code = 40252-2) 2 0-1.5 [facility] Hospitalerum or plasma hepatitis C virus RNA detection by probe and target amplification famwbu8911-57-73 05:50:00* Test Item Value Reference Range Interpretation Comments Hepatitis C RNA Qualitative (PCR) (test code = 99556-0) Negative Negative Negative: HCV RNA Not DetectedPerformed at: - [facility] [id number] Director: Denisse Dee MD, Phone: [phone] 44[facility] Centererum or plasma eweap-7-eqabkpkmsqy.tumor marker measurement (mass/volume)2019-08-25 05:50:00* Test Item Value Reference Range Interpretation Comments Alpha Fetoprotein (test code = 22361-1) 3.3 0.0-8.3 [facility] Electrochemiluminescence Immunoassay(ECLIA)Values obtained wit h different assay methods or kits cannotbe used interchangeably. Results cannot be interpreted asabsolute evidence of the presence or absence of malignantdisea se.This test is not interpretable in females.Performed at: [facility] [employer] [facility] [address] [id number] Director: Lopez Morgan MD, Phone: [phone] McKinney HospitalCHEST 2 RMDOM3112-09-08 03:52:00 [place] [address] Patient Name: JOCELIN CORREA MR #: [id number] : 1970 Age/Sex: 49/M Req #: [id number] Adm Physician: DAVI KELLY MD Ordered by: JACQUI BECERRA OSTEOLOGY TEACHER Report #: [id number] Location: MED/SURG3 Room/Bed: [facility] Procedure: [id number] DX/CHEST 2 VIEW S Exam Date: 08/25/19 Exam Time: 309 REPORT STATUS: Signed EXAMINATION: CHEST 2 EWS INDICATION: coughing up blood COMPARISON: None FINDINGS: PA and lateral views TUBES and LINES: None. LUNGS: L ungs are well inflated. Bilateral airspace opacities, most notable in the rig ht lower lung field. PLEURA: No pleural effusion or pneumothorax. HEA RT AND MEDIASTINUM: The cardiomediastinal silhouette is unremarkable. BONES AND SOFT TISSUES: No acute osseous lesion. Soft tissues are unremarkab le. UPPER ABDOMEN: No free air under the diaphragm. IMPRESSION: Bilateral airspace opacities, most notable in the right lower lung field, con cerning for multifocal pneumonia. Signed by: Dr. Diana Velarde MD on 3:53 AM Dictated By: DIANA VELARDE MD 2 Transcribed By: ZAHEER on 08/25/19352 COPY TO: JACQUI BECERRA NP Fluoroscopic procedure less than one hour sakbtmhv4292-46-61 11:10:00* Test Item Value Reference Range Interpretation Comments Lactic Acid Level (test code = Lactic Acid Level) 1.1 0.5- 2.0 [facility] HospitalFluoroscopic procedure less than one hour lqpqzcfb7927-84-87 11:10:00* Test Item Value Reference Range Interpretation Comments Lactic Acid Level (test code = Lactic Acid Level) 1.1 0.5- 2.0 [facility] HospitalCT ABDOMEN/PELVIS B3374-48-27 14:47:00 [facility] [address] [place] [address] Patient Name: JOCELIN CORREA MR #: [id number] : 1970 Age/Sex: 49/M Req #: [id number] Adm Physician: Ordered by: RACHAEL HAN rt #: [id number] Location: ER Room/Be d: Procedure: [id number] CT/CT ABDOMEN/P NEVA W Exam Date: 08/23/19 Exam Time: 1400 REPORT STATUS: Signed EXAM: CT Abdomen a nd Pelvis WITH intravenous contrast INDICATION: Abdominal pain KELSEY RISON: CT abdomen and pelvis of 08/14/2019 TECHNIQUE: Abdomen and pelvis were scanned utilizing a multidetector helical scanner from the lung base to the p ubic symphysis after administration of IV contrast. Coronal and sagittal refor mations were obtained. Routine protocol was performed. Scan was performed duri ng portal venous phase. IV CONTRAST: 100mL of Isovue [address]: None RADIATION DOSE: Total DLP: 732 mGy*cm Dose modulation, ite rative reconstruction, and/or weight based adjustment of the mA/kV was utilize d to reduce the radiation dose to as low as reasonably achievable. FINDI NGS: LOWER THORAX: Normal. HEPATOBILIARY: Diffuse hepatic steatosis. Mild ly nodular liver surface contour compatible with early hepatic cirrhosis. Unre markable gallbladder. Likely acute thrombus in the main portal vein (axial massiel ge 24). SPLEEN: Splenomegaly to 13.7 cm. PANCREAS: No focal masses or ductal dilatation. ADRENALS: No adrenal nodules. KIDNEYS/URETERS: 3 mm ri ght midpole nonobstructive renal calculus. No hydronephrosis or solid mass les ion. PELVIC ORGANS/BLADDER: Unremarkable. PERITONEUM / RETROPERITONEUM: T race free fluid. No free air. LYMPH NODES: No lymphadenopathy. VESSELS: Port al vein thrombosis. See hepatobiliary section. GI TRACT: No abnormal bowel thickening. No bowel obstruction. Normal appendix. BONES AND SOFT TISSUES: Unremarkable. IMPRESSION: Acute nonocclusive main portal vein thrombus. Diffuse hepatic steatosis and cirrhotic liver contour. Splenomegaly. 3 mm right midpole nonobstructive renal calculus. No hydronephrosis. Signed by: Nayeli Chappell MD on 08/23/2019 2:54 PM Dictated By: NAYELI CHAPPELL MD Elect ronically Signed By: NAYELI CHAPPELL MD on 08/23/191453 Transcribed By: ZAHEER on 08/23/191453 COPY TO: RACHAEL HAN DO Blood leukocytes automated count (number/volume)2019-08-16 05:10:00* Test Item Value Reference Range Interpretation Comments White Blood Count (test code = 6690-2) 2.51 4.8-10.8 [facility] HospitalBlood erythrocytes automated count (number/volume)2019-08-16 05:10:00* Test Item Value Reference Range Interpretation Comments Red Blood Count (test code = 789-8) 3.18 4.3-5.7 [facility] HospitalBlood hemoglobin measurement (moles/volume)2019-08-16 05:10:00* Test Item Value Reference Range Interpretation Comments Hemoglobin (test code = 11570-3) 7.0 14.0-18.0 [facility] HospitalAutomated blood hematocrit (volume fraction)2019-08-16 05:10:00* Test Item Value Reference Range Interpretation Comments Hematocrit (test code = 4544-3) 24.3 38.2-49.6 [facility] HospitalAutomated erythrocyte mean corpuscular wolbqy0936-84-08 05:10:00* Test Item Value Reference Range Interpretation Comments Mean Corpuscular Volume (test code = 787-2) 76.4 81-99 [facility] HospitalAutomated erythrocyte mean corpuscular hemoglobin (mass per erythrocyte)2019-08-16 05:10:00* Test Item Value Reference Range Interpretation Comments Mean Corpuscular Hemoglobin (test code = 785-6) 22.0 28-32 [facility] HospitalAutomated erythrocyte mean corpuscular hemoglobin concentration measurement (mass/volume)2019-08-16 05:10:00* Test Item Value Reference Range Interpretation Comments Mean Corpuscular Hemoglobin Concent (test code = 786-4) 28.8 31-35 [facility] HospitalRDW VkyUp-Vva8447-77-05 05:10:00* Test Item Value Reference Range Interpretation Comments Red Cell Distribution Width (test code = 68669-5) 20.0 11.7 -14.4 [facility] HospitalAutomated blood platelet count (count/volume)2019-08-16 05:10:00* Test Item Value Reference Range Interpretation Comments Platelet Count (test code = 777-3) 50 140-360 [facility] HospitalAutomated blood segmented neutrophil count as percentage of total ifdkotjbtw8704-98-87 05:10:00* Test Item Value Reference Range Interpretation Comments Neutrophils (%) (Auto) (test code = 60063-5) 52.6 38.7-80.0 [facility] HospitalAutomated blood lymphocyte count as percentage ot total yynrlnpofh1098-35-49 05:10:00* Test Item Value Reference Range Interpretation Comments Lymphocytes (%) (Auto) (test code = 736-9) 17.9 18.0-39.1 [facility] HospitalAutomated blood monocyte count as percentage of total zvsozdumdf2690-21-98 05:10:00* Test Item Value Reference Range Interpretation Comments Monocytes (%) (Auto) (test code = 5905-5) 18.3 4.4-11.3 [facility] HospitalAutomated blood eosinophil count as percentage of total ampzngcexf9534-99-26 05:10:00* Test Item Value Reference Range Interpretation Comments Eosinophils (%) (Auto) (test code = 713-8) 10.0 0.0-6.0 [facility] HospitalAutomated blood basophil count as percentage of total qdmpsvlkgf8874-68-38 05:10:00* Test Item Value Reference Range Interpretation Comments Basophils (%) (Auto) (test code = 706-2) 0.8 0.0-1.0 [facility] HospitalFluoroscopic procedure less than one hour itctcgtg7145-44-13 05:10:00* Test Item Value Reference Range Interpretation Comments IM GRANULOCYTES % (test code = IM GRANULOCYTES %) 0.4 0.0- 1.0 [facility] HospitalAutomated blood neutrophil count 2019-08-16 05:10:00* Test Item Value Reference Range Interpretation Comments Neutrophils # (Auto) (test code = 751-8) 1.3 2.1-6.9 [facility] lymphocytes count (number/volume) 2019-08-16 05:10:00* Test Item Value Reference Range Interpretation Comments Lymphocytes # (Auto) (test code = 17558-2) 0.5 1.0-3.2 [facility] monocytes automated count (number/volume)2019-08-16 05:10:00* Test Item Value Reference Range Interpretation Comments Monocytes # (Auto) (test code = 742-7) 0.5 0.2-0.8 [facility] HospitalAutomated blood eosinophil count 2019-08-16 05:10:00* Test Item Value Reference Range Interpretation Comments Eosinophils # (Auto) (test code = 711-2) 0.3 0.0-0.4 [facility] HospitalAutomated blood basophil count (count/volume)2019-08-16 05:10:00* Test Item Value Reference Range Interpretation Comments Basophils # (Auto) (test code = 704-7) 0.0 0.0-0.1 [facility] HospitalFluoroscopic procedure less than one hour qprhkevd0132-94-18 05:10:00* Test Item Value Reference Range Interpretation Comments Absolute Immature Granulocyte (auto ([place] t code = Absolute Immature Granulocyte (auto) 0.01 0-0.1 [facility] platelets count by estimate (number/volume)2019-08-16 05:10:00* Test Item Value Reference Range Interpretation Comments Platelet Estimate (test code = 32861-9) MARKEDLY DECREASED [facility] HospitalPlatelet jdbutyxild6354-30-36 05:10:00* Test Item Value Reference Range Interpretation Comments Platelet Morphology Comment (test code = 82307-2) NORMAL NO EDTA PLT CLUMPS SEENMethodist McKinney HospitalBlood hypochromia detection by light lsihzwtjiz5584-63-04 05:10:00* Test Item Value Reference Range Interpretation Comments Hypochromasia (test code = 728-6) MODERATE [facility]ere[facility] sodium measurement (moles/volume)2019-08-16 05:10:00* Test Item Value Reference Range Interpretation Comments Sodium Level (test code = 2951-2) 130 136-145 [facility]ererum or plasma potassium measurement (moles/volume)2019-08-16 05:10:00* Test Item Value Reference Range Interpretation Comments Potassium Level (test code = 2823-3) 3.3 3.5-5.1 [facility]ererum or plasma chloride measurement (moles/volume)2019-08-16 05:10:00* Test Item Value Reference Range Interpretation Comments Chloride Level (test code = 2075-0) 97 98-107 [facility]ererum or plasma carbon dioxide, total measurement (moles/volume)2019-08-16 05:10:00* Test Item Value Reference Range Interpretation Comments Carbon Dioxide Level (test code = 2028-9) 26 22-29 [facility]ererum or plasma anion xbt7999-37-87 05:10:00* Test Item Value Reference Range Interpretation Comments Anion Gap (test code = 25556-9) 10.3 8-16 [facility]ererum or plasma urea nitrogen measurement (mass/volume)2019-08-16 05:10:00* Test Item Value Reference Range Interpretation Comments Blood Urea Nitrogen (test code = 3094-0) 11 7-26 [facility]ererum or plasma creatinine measurement (mass/volume)2019-08-16 05:10:00* Test Item Value Reference Range Interpretation Comments Creatinine (test code = 2160-0) 1.02 0.72-1.25 [facility]ererum or plasma urea nitrogen/creatinine mass aczbt9318-08-08 05:10:00* Test Item Value Reference Range Interpretation Comments BUN/Creatinine Ratio (test code = 3097-3) 11 6-25 [facility] HospitalEstimated glomerular filtration rate (GFR) wxacilkmbmiyz2162-26-85 05:10:00* Test Item Value Reference Range Interpretation Comments Estimat Glomerular Filtration Rate (test code = 438466207) > 60 >60 Ranges were taken from the National Kidney Disease Education Program and the [facility] literature.Reference ranges:60 or greater: Kcrwlc74-58 ( for 3 consecutive months): Chronic kidney disease 15 or less: Kidney failureMethodist McKinney HospitalGlucose szwjbaxiamf5737-05-65 05:10:00* Test Item Value Reference Range Interpretation Comments Glucose Level (test code = PNG8464) 83 74-118 [facility]ererum or plasma calcium measurement (mass/volume)2019-08-16 05:10:00* Test Item Value Reference Range Interpretation Comments Calcium Level (test code = 93865-6) 8.0 8.4-10.2 [facility]ererum or plasma total bilirubin measurement (mass/volume)2019-08-16 05:10:00* Test Item Value Reference Range Interpretation Comments Total Bilirubin (test code = 1975-2) 2.3 0.2-1.2 [facility] HospitalFluoroscopic procedure less than one hour arbvelpn0087-99-26 05:10:00* Test Item Value Reference Range Interpretation Comments Aspartate Amino Transf (AST/SGOT) (test code = Aspartate Amino Transf (AST/SGOT)) 56 5-34 [facility] Centererum or plasma alanine aminotransferase measurement (enzymatic activity/volume)2019-08-16 05:10:00* Test Item Value Reference Range Interpretation Comments Alanine Aminotransferase (ALT/SGPT) (test code = 1742-6) 20 0-55 [facility] HospitalAmmonia Rks-zPba2441-08-05 05:10:00* Test Item Value Reference Range Interpretation Comments Ammonia (test code = 52087-3) 75 31-123 [facility]ererum or plasma protein measurement (mass/volume)2019-08-16 05:10:00* Test Item Value Reference Range Interpretation Comments Total Protein (test code = 2885-2) 7.9 6.5-8.1 [facility]ererum or plasma albumin measurement (mass/volume)2019-08-16 05:10:00* Test Item Value Reference Range Interpretation Comments Albumin (test code = 1751-7) 2.7 3.5-5.0 [facility] HospitalPlasma globulin measurement (mass/volume) 2019-08-16 05:10:00* Test Item Value Reference Range Interpretation Comments Globulin (test code = 97093-1) 5.2 2.3-3.5 [facility]ererum or plasma albumin/globulin mass nileu4078-23-81 05:10:00* Test Item Value Reference Range Interpretation Comments Albumin/Globulin Ratio (test code = 1759-0) 0.5 0.8-2.0 [facility]ererum or plasma alkaline phosphatase measurement (enzymatic activity/volume)2019-08-16 05:10:00* Test Item Value Reference Range Interpretation Comments Alkaline Phosphatase (test code = 6768-6) 74 40-150 [facility]ererum or plasma lipase measurement (enzymatic activity/volume)2019-08-16 05:10:00* Test Item Value Reference Range Interpretation Comments Lipase (test code = 3040-3) 24 8-78 [facility] Centertool gastrointestinal hemoglobin vlsvydzzu0699-31-42 20:05:00* Test Item Value Reference Range Interpretation Comments Stool Occult Blood (test code = 2335-8) NEGATIVE NEGATIVE [facility] Centerto gastrointestinal hemoglobin iywqjwunr7478-75-39 20:05:00* Test Item Value Reference Range Interpretation Comments Stool Occult Blood (test code = 2335-8) NEGATIVE NEGATIVE [facility] gastrointestinal hemoglobin begmiereg9131-14-61 20:05:00* Test Item Value Reference Range Interpretation Comments Stool Occult Blood (test code = 2335-8) NEGATIVE NEGATIVE [facility] HospitalBlood polychromasia detection by light yswxoyunln1454-07-76 05:15:00* Test Item Value Reference Range Interpretation Comments Polychromasia (test code = 71870-8) FEW [facility] HospitalBlood anisocytosis detection by light gadbvflbaj2775-04-26 05:15:00* Test Item Value Reference Range Interpretation Comments Anisocytosis (test code = 702-1) MODERATE [facility] HospitalBlood ovalocytes detection by light datyeznwrj5090-04-48 05:15:00* Test Item Value Reference Range Interpretation Comments Ovalocytes (test code = 774-0) MODERATE [facility] HospitalRBC xfghvcobpm2709-88-57 05:15:00* Test Item Value Reference Range Interpretation Comments Red Cell Morphology Comment (test code = 6742-1) ABNORMAL [facility]ererum or plasma magnesium measurement (mass/volume)2019-08-15 05:15:00* Test Item Value Reference Range Interpretation Comments Magnesium Level (test code = 92600-4) 1.6 1.3-2.1 [facility]ererum or plasma creatine kinase measurement (enzymatic activity/volume)2019-08-15 05:15:00* Test Item Value Reference Range Interpretation Comments Creatine Kinase (test code = 2157-6) 253 30-200 [facility] HospitalUrine color gkcahiqzdawte3538-86-08 08:54:00* Test Item Value Reference Range Interpretation Comments Urine Color (test code = 5778-6) YELLOW YELLOW [facility] HospitalUrine zkkehon9819-64-16 08:54:00* Test Item Value Reference Range Interpretation Comments Urine Clarity (test code = 78589-7) CLEAR CLEAR [facility] Centerpecific gravity of Urine by Test strip 2019-08-14 08:54:00* Test Item Value Reference Range Interpretation Comments Urine Specific [place] (test code = 5811-5) 1.015 1.010-1.02 5 [facility] HospitalUrine pH measurement by automated test orngb8924-42-59 08:54:00* Test Item Value Reference Range Interpretation Comments Urine pH (test code = 54519-2) 7 5-7 [facility] HospitalUrine leukocyte esterase detection by rdmmzmmt6201-69-88 08:54:00* Test Item Value Reference Range Interpretation Comments Urine Leukocyte Esterase (test code = 5799-2) NEGATIVE NEGATIVE [facility] HospitalUrine nitrite ojpfrenij0744-33-62 08:54:00* Test Item Value Reference Range Interpretation Comments Urine Nitrite (test code = 65401-1) NEGATIVE NEGATIVE [facility] HospitalUrine protein measurement by test strip (mass/volume)2019-08-14 08:54:00* Test Item Value Reference Range Interpretation Comments Urine Protein (test code = 5804-0) NEGATIVE NEGATIVE [facility] HospitalUrine glucose tmxpzvhvp6795-91-99 08:54:00* Test Item Value Reference Range Interpretation Comments Urine Glucose (UA) (test code = 2349-9) NEGATIVE NEGATIVE [facility] HospitalUrine ketones detection by automated test bumdr9643-75-03 08:54:00* Test Item Value Reference Range Interpretation Comments Urine Ketones (test code = 68692-3) NEGATIVE NEGATIVE [facility] HospitalUrine opiates screening psrc7975-86-84 08:54:00* Test Item Value Reference Range Interpretation Comments Urine Opiates Screen (test code = 40689-8) NEGATIVE NEGATIVE ALL TESTS PERFORMED MANUALLY ON [employer] TOX/SEE TESTMethodist McKinney HospitalBarbiturates screen, nvpxh6021-84-35 08:54:00* Test Item Value Reference Range Interpretation Comments Urine Barbiturates Screen (test code = 732396044) NEGATIVE NEGA TIVE [facility] HospitalUrine phencyclidine detection by screening rtdept3891-22-28 08:54:00* Test Item Value Reference Range Interpretation Comments Urine Phencyclidine Screen (test code = 91045-7) NEGATIVE NEGAT ELSIE [facility] HospitalUrine amphetamines detection by screen method > 1000 ng/vJ6819-21-09 08:54:00* Test Item Value Reference Range Interpretation Comments Urine Amphetamines Screen (test code = 47220-5) NEGATIVE NEGATI VE [facility] HospitalFluoroscopic procedure less than one hour htzecucy0253-99-57 08:54:00* Test Item Value Reference Range Interpretation Comments Urine Methamphetamines Screen (test code = Urine Metha mphetamines Screen) NEGATIVE NEGATIVE [facility] HospitalUrine benzodiazepines detection by screening vyzycs3873-34-44 08:54:00* Test Item Value Reference Range Interpretation Comments Urine Benzodiazepines Screen (test code = 97177-0) NEGATIVE NEG ATIVE [facility] HospitalUrine cocaine measurement (mass/volume) 2019-08-14 08:54:00* Test Item Value Reference Range Interpretation Comments Urine Cocaine Screen (test code = 3398-5) NEGATIVE NEGATIVE [facility] HospitalUrine cannabinoids detection by screening rqsjld6248-69-55 08:54:00* Test Item Value Reference Range Interpretation Comments Urine Cannabinoids Screen (test code = 30728-2) NEGATIVE NEGATI VE THESE RESULTS ARE FOR MEDICAL TREATMENT ONLYTHIS REPORT CONTAINS UNCONFIR MED SCREENING RESULTS*POSITIVE RESULTS WILL BE CONFIRMED BY REFERENCE LAB UPON R EQUEST CUT-OFFDRUG CLASS CONCENTRATION ng/mLAmphetamines 1000Methamphetamines 1000Cocaine 300Opiate 300Phencyc lidine 25Cannabinoid 50Barbiturates 300Benzodiazepine 300Methadone 300[facility] HospitalUrine methadone snjhbr5044-67-08 08:54:00* Test Item Value Reference Range Interpretation Comments Urine Methadone Screen (test code = 49711-5) NEGATIVE NEGATIVE THESE RESULTS ARE FOR MEDICAL TREATMENT ONLYTHIS REPORT CONTAINS UNCONFIR MED SCREENING RESULTS*POSITIVE RESULTS WILL BE CONFIRMED BY REFERENCE LAB UPON R EQUEST CUT-OFFDRUG CLASS CONCENTRATION ng/mLAmphetamines 1000Methamphetamines 1000Cocaine Metabolite 300Opiate 300Phencyc lidine 25Cannabinoid 50Barbiturates 300Benzodiazepine 300Methadone 300[facility] HospitalUrine urobilinogen measurement by test strip (mass/volume)2019-08-14 08:54:00* Test Item Value Reference Range Interpretation Comments Urine Urobilinogen (test code = 11967-7) 0.2 0.2-1 [facility] HospitalUrine total bilirubin measurement (mass/volume)2019-08-14 08:54:00* Test Item Value Reference Range Interpretation Comments Urine Bilirubin (test code = 1978-6) NEGATIVE NEGATIVE [facility] HospitalUrine erythrocytes sdfipwuql0359-15-87 08:54:00* Test Item Value Reference Range Interpretation Comments Urine Blood (test code = 19431-0) MODERATE NEGATIVE [facility] HospitalAutomated urine sediment leukocyte count by microscopy (number/high power field)2019-08-14 08:54:00* Test Item Value Reference Range Interpretation Comments Urine WBC (test code = 5821-4) 21-50 0-5 [facility] HospitalErythrocytes detection in urine sediment by light vksphipjsk9312-19-63 08:54:00* Test Item Value Reference Range Interpretation Comments Urine RBC (test code = 40548-9) >50 0-5 [facility] HospitalBacteria detection in urine sediment by light sitsnprtgo5293-13-21 08:54:00* Test Item Value Reference Range Interpretation Comments Urine Bacteria (test code = 05672-1) FEW NONE [facility] HospitalEpithelial cells detection in urine sediment by light jdydjmzmdi9779-61-67 08:54:00* Test Item Value Reference Range Interpretation Comments Urine Epithelial Cells (test code = 28592-7) MANY NONE [facility] HospitalFluoroscopic procedure less than one hour kokpwvgd1091-86-90 08:54:00* Test Item Value Reference Range Interpretation [...] complexity tests.Testing performed by [facility] [id number] [place], [place] [phone] Director: Francisco Javier Barth M.D.CLIA # [id number] [facility] Hospital Bacterial urine punfajb9962-36-82 08:54:00* Test Item Value Reference Range Interpretation Comments Urine Culture (test code = 630-4) ENTEROCOCCUS FAECALIS [facility] HospitalUrine opiates screening gwoa7271-41-53 08:54:00* Test Item Value Reference Range Interpretation Comments Urine Opiates Screen (test code = 69736-2) NEGATIVE NEGATIVE ALL TESTS PERFORMED MANUALLY ON [employer] TOX/SEE TESTMethodist McKinney HospitalBarbiturates screen, pgerp1436-45-49 08:54:00* Test Item Value Reference Range Interpretation Comments Urine Barbiturates Screen (test code = 234907115) NEGATIVE NEGA TIVE [facility] HospitalUrine phencyclidine detection by screening cbpzmm0288-28-10 08:54:00* Test Item Value Reference Range Interpretation Comments Urine Phencyclidine Screen (test code = 41136-3) NEGATIVE NEGAT ELSIE [facility] HospitalUrine amphetamines detection by screen method > 1000 ng/kD8154-85-40 08:54:00* Test Item Value Reference Range Interpretation Comments Urine Amphetamines Screen (test code = 50417-7) NEGATIVE NEGATI VE [facility] HospitalFluoroscopic procedure less than one hour tofybskq6149-25-31 08:54:00* Test Item Value Reference Range Interpretation Comments Urine Methamphetamines Screen (test code = Urine Metha mphetamines Screen) NEGATIVE NEGATIVE [facility] HospitalUrine benzodiazepines detection by screening xdsqdx0210-58-46 08:54:00* Test Item Value Reference Range Interpretation Comments Urine Benzodiazepines Screen (test code = 00269-6) NEGATIVE NEG ATIVE [facility] HospitalUrine cocaine measurement (mass/volume) 2019-08-14 08:54:00* Test Item Value Reference Range Interpretation Comments Urine Cocaine Screen (test code = 3398-5) NEGATIVE NEGATIVE [facility] HospitalUrine cannabinoids detection by screening ngtvue4303-44-35 08:54:00* Test Item Value Reference Range Interpretation Comments Urine Cannabinoids Screen (test code = 17506-4) NEGATIVE NEGATI VE THESE RESULTS ARE FOR MEDICAL TREATMENT ONLYTHIS REPORT CONTAINS UNCONFIR MED SCREENING RESULTS*POSITIVE RESULTS WILL BE CONFIRMED BY REFERENCE LAB UPON R EQUEST CUT-OFFDRUG CLASS CONCENTRATION ng/mLAmphetamines 1000Methamphetamines 1000Cocaine 300Opiate 300Phencyc lidine 25Cannabinoid 50Barbiturates 300Benzodiazepine 300Methadone 300[facility] HospitalU[facility]adone xsltio9515-36-72 08:54:00* Test Item Value Reference Range Interpretation Comments Urine Methadone Screen (test code = 38824-1) NEGATIVE NEGATIVE THESE RESULTS ARE FOR MEDICAL TREATMENT ONLYTHIS REPORT CONTAINS UNCONFIR MED SCREENING RESULTS*POSITIVE RESULTS WILL BE CONFIRMED BY REFERENCE LAB UPON R EQUEST CUT-OFFDRUG CLASS CONCENTRATION ng/mLAmphetamines 1000Methamphetamines 1000Cocaine Metabolite 300Opiate 300Phencyc lidine 25Cannabinoid 50Barbiturates 300Benzodiazepine 300Methadone 300[facility] HospitalBacterial urine lkluumv1680-24-07 08:54:00* Test Item Value Reference Range Interpretation Comments Urine Culture (test code = 630-4) ENTEROCOCCUS FAECALIS [facility] HospitalUrine opiates screening itee6074-72-38 08:54:00* Test Item Value Reference Range Interpretation Comments Urine Opiates Screen (test code = 94752-9) NEGATIVE NEGATIVE ALL TESTS PERFORMED MANUALLY ON [employer] TOX/SEE TESTMethodist McKinney HospitalBarbiturates screen, tpbxt8098-45-76 08:54:00* Test Item Value Reference Range Interpretation Comments Urine Barbiturates Screen (test code = 783014479) NEGATIVE NEGA TIVE [facility] HospitalUrine phencyclidine detection by screening myocrj3399-32-66 08:54:00* Test Item Value Reference Range Interpretation Comments Urine Phencyclidine Screen (test code = 88870-4) NEGATIVE NEGAT ELSIE [facility] HospitalUrine amphetamines detection by screen method > 1000 ng/bZ6779-40-09 08:54:00* Test Item Value Reference Range Interpretation Comments Urine Amphetamines Screen (test code = 22092-0) NEGATIVE NEGATI VE [facility] HospitalFluoroscopic procedure less than one hour azinusua1049-82-79 08:54:00* Test Item Value Reference Range Interpretation Comments Urine Methamphetamines Screen (test code = Urine Metha mphetamines Screen) NEGATIVE NEGATIVE [facility] HospitalUrine benzodiazepines detection by screening rfojvl9138-94-25 08:54:00* Test Item Value Reference Range Interpretation Comments Urine Benzodiazepines Screen (test code = 61177-7) NEGATIVE NEG ATIVE [facility] HospitalUrine cocaine measurement (mass/volume) 2019-08-14 08:54:00* Test Item Value Reference Range Interpretation Comments Urine Cocaine Screen (test code = 3398-5) NEGATIVE NEGATIVE [facility] HospitalUrine cannabinoids detection by screening kftdms3295-45-25 08:54:00* Test Item Value Reference Range Interpretation Comments Urine Cannabinoids Screen (test code = 00949-2) NEGATIVE NEGATI VE THESE RESULTS ARE FOR MEDICAL TREATMENT ONLYTHIS REPORT CONTAINS UNCONFIR MED SCREENING RESULTS*POSITIVE RESULTS WILL BE CONFIRMED BY REFERENCE LAB UPON R EQUEST CUT-OFFDRUG CLASS CONCENTRATION ng/mLAmphetamines 1000Methamphetamines 1000Cocaine 300Opiate 300Phencyc lidine 25Cannabinoid 50Barbiturates 300Benzodiazepine 300Methadone 300[facility] HospitalUrine methadone bovrjz4617-78-35 08:54:00* Test Item Value Reference Range Interpretation Comments Urine Methadone Screen (test code = 66864-9) NEGATIVE NEGATIVE THESE RESULTS ARE FOR MEDICAL TREATMENT ONLYTHIS REPORT CONTAINS UNCONFIR MED SCREENING RESULTS*POSITIVE RESULTS WILL BE CONFIRMED BY REFERENCE LAB UPON R EQUEST CUT-OFFDRUG CLASS CONCENTRATION ng/mLAmphetamines 1000Methamphetamines 1000Cocaine Metabolite 300Opiate 300Phencyc lidine 25Cannabinoid 50Barbiturates 300Benzodiazepine 300Methadone 300[facility] HospitalBacterial urine sewcmsl0743-57-96 08:54:00* Test Item Value Reference Range Interpretation Comments Urine Culture (test code = 630-4) ENTEROCOCCUS FAECALIS [facility] Q6989-25-83 08:48:00 [facility] [address] [address] Patient Name: JOCELIN CORREA MR #: [id number] : 1970 Age/Sex: 49/M Req #: [id number] [facility] Physician: Ordered by: ABA LOYA MD Report #: [id number] Location: ER Room/Bed: Procedure: [id number] CT/CT A BDOMEN/PELVIS W Exam Date: 08/14/19 [...] 9:04 AM Dictated By: BRIANNA NAVARRO MD 0904 Transcribed By: ZAHEER on 08/14/19 0904 COPY TO: ABA LOYA MD CT BRAIN XM4090-20-12 08:33:00 [address] [address] Patient Name: JOCELIN CORREA MR #: [id number] : 1970 Age/Sex: 49/M Req #: [id number] Adm Physician: Ordered by: GOLDEN WANG MD Rep ort #: [id number] Location: ER Room/B ed: Procedure: [id number] CT/CT BRAIN WO Exam Date: 08/14/19 Exam [...] MD Blood platelet clump detection by light nlvnylkteh1133-80-46 05:25:00* Test Item Value Reference Range Interpretation Comments Clumped Platelets (test code = 7796-6) NONE NONE [facility] HospitalBlood poikilocytosis detection by light jjhsyzetpm6181-38-17 05:25:00* Test Item Value Reference Range Interpretation Comments Poikilocytosis (test code = 779-9) SLIGHT [facility] Centererum or plasma creatine kinase MB measurement (mass/volume)2019-08-14 05:25:00* Test Item Value Reference Range Interpretation Comments Creatine Kinase MB (test code = 48762-0) 2.60 0-5.0 [facility] HospitalTroponin I measurement by highly sensitive enzyme mxaeaflezac8236-27-70 05:25:00* Test Item Value Reference Range Interpretation Comments Troponin I (test code = 35084-2) 0.008 0-0.300 [facility]ererum or plasma amylase measurement (enzymatic activity/volume)2019-08-14 05:25:00* Test Item Value Reference Range Interpretation Comments Amylase Level (test code = 1798-8) 98 25-125 [facility] plasma acetaminophen measurement by screening method (mass/volume)2019-08-14 05:25:00* Test Item Value Reference Range Interpretation Comments Acetaminophen Level (test code = 04257-8) < 3.0 10-30 [facility] plasma ethanol measurement (mass/volume)2019-08-14 05:25:00* Test Item Value Reference Range Interpretation Comments Ethyl Alcohol Level (test code = 5643-2) 301.6 0.0-10.0 [facility] clump detection by light hkbwmfpeqn8235-31-64 05:25:00* Test Item Value Reference Range Interpretation Comments Clumped Platelets (test code = 7796-6) NONE NONE [facility] poikilocytosis detection by light qimiombiin8955-76-34 05:25:00* Test Item Value Reference Range Interpretation Comments Poikilocytosis (test code = 779-9) SLIGHT [facility] acetaminophen measurement by screening method (mass/volume)2019-08-14 05:25:00* Test Item Value Reference Range Interpretation Comments Acetaminophen Level (test code = 21367-1) < 3.0 10-30 [facility] ethanol measurement (mass/volume)2019-08-14 05:25:00* Test Item Value Reference Range Interpretation Comments Ethyl Alcohol Level (test code = 5643-2) 301.6 0.0-10.0 [facility] platelet clump detection by light enjdfwosnk4481-74-85 05:25:00* Test Item Value Reference Range Interpretation Comments Clumped Platelets (test code = 7796-6) NONE NONE [facility] poikilocytosis detection by light bopswnrjhs6845-76-76 05:25:00* Test Item Value Reference Range Interpretation Comments Poikilocytosis (test code = 779-9) SLIGHT [facility] acetaminophen measurement by screening method (mass/volume)2019-08-14 05:25:00* Test Item Value Reference Range Interpretation Comments Acetaminophen Level (test code = 68289-9) < 3.0 10-30 [facility] ethanol measurement (mass/volume)2019-08-14 05:25:00* Test Item Value Reference Range Interpretation Comments Ethyl Alcohol Level (test code = 5643-2) 301.6 0.0-10.0 [facility]althyroid stimulating hormone, serum 2019-03-28 10:04:00* Test Item Value Reference Range Interpretation Comments thyroid stimulating hormone, serum (test code = 3016-3) 1.92 0 u[iU]/mL 0.450-4.500 [facility] cholesterol, ibeur6451-32-62 10:04:00* Test Item Value Reference Range Interpretation Comments LDL cholesterol, serum (test code = 2089-1) 63 mg/dL 0-99 [facility] qurnnmnvmjca2055-10-95 10:04:00* Test Item Value Reference Range Interpretation Comments very low density lipoproteins (test code = 2091-7) 10 mg/dL 5-4 0 [facility]HDL cholesterol, kwasq1785-83-21 10:04:00* Test Item Value Reference Range Interpretation Comments HDL cholesterol, serum (test code = 2085-9) 50 mg/dL >39 [facility]triglyceride, serum, ngbuwvi2428-12-79 10:04:00* Test Item Value Reference Range Interpretation Comments triglyceride, serum, fasting (test code = 2571-8) 48 mg/dL 0-14 9 [facility]cholesterol, hrtgo0128-86-71 10:04:00* Test Item Value Reference Range Interpretation Comments cholesterol, serum (test code = 2093-3) 123 mg/dL 100-199 [facility] Hospitalbacteria, urine srzlyffqjs3851-00-03 10:04:00* Test Item Value Reference Range Interpretation Comments bacteria, urine microscopy (test code = 5769-5) None seen None s een/Few [facility] Travel Notescast type, vmkqjygdac5262-81-80 10:04:00* Test Item Value Reference Range Interpretation Comments cast type, urinalysis (test code = 64416) Hyaline casts N/A [facility] Travel Notescasts, xyhug2179-24-60 10:04:00* Test Item Value Reference Range Interpretation Comments casts, urine (test code = 5626) Present None seen A [facility] Hospitalepithelial cells, lldvl7577-47-63 10:04:00* Test Item Value Reference Range Interpretation Comments epithelial cells, urine (test code = 5787-7) 0-10 0-10 [facility] Travel NotesRBC, Xiipj4529-49-65 10:04:00* Test Item Value Reference Range Interpretation Comments RBC, Urine (test code = 40469-5) 3-10 /hpf 0-2 A [facility] on icvsyfekms1402-45-36 10:04:00* Test Item Value Reference Range Interpretation Comments WBC urine on microscopy (test code = 1016) 0-5 /hpf 0-5 [facility] Hospitalurinalysis, microscopic tsogetorzaj6963-96-40 10:04:00* Test Item Value Reference Range Interpretation Comments urinalysis, microscopic examination (test code = 85934-5) See below : [facility] Hospitalnitrate, sfjji6166-10-24 10:04:00* Test Item Value Reference Range Interpretation Comments nitrate, urine (test code = 09191-2) Negative Negative [facility] Hospitalurobilinogen, urine, semiquantitative (dipstick) 2019-03-28 10:04:00* Test Item Value Reference Range Interpretation Comments urobilinogen, urine, semiquantitative (dipstick) (test code = 5818-0) 0.2 0.2-1.0 [facility] Hospitalbilirubin, hafvt4897-37-25 10:04:00* Test Item Value Reference Range Interpretation Comments bilirubin, urine (test code = 5770-3) Negative Negative [facility] Hospitalketones, urine, by test xdpkf5897-95-97 10:04:00* Test Item Value Reference Range Interpretation Comments ketones, urine, by test strip (test code = 5797-6) Negative Neg ative [facility] Hospitalglucose, urine, pubtgmbwfqiudgkn5099-92-54 10:04:00* Test Item Value Reference Range Interpretation Comments glucose, urine, semiquantitative (test code = 5792-7) Negative Negative [facility] Hospitalprotein, urine, semiquantitative (dipstick)2019-03-28 10:04:00* Test Item Value Reference Range Interpretation Comments protein, urine, semiquantitative (dipstick) (test code = 175 3-3) Negative Negative/Trace [facility] Hospitalleukocyte esterase, urine, by fcotzrij1019-65-04 10:04:00 * Test Item Value Reference Range Interpretation Comments leukocyte esterase, urine, by dipstick (test code = 5799-2) Negativ e Negative [facility] Hospitalappearance, kzfya2558-01-41 10:04:00* Test Item Value Reference Range Interpretation Comments appearance, urine (test code = 5767-9) Clear Clear [facility] Hospitalurine weeja9937-30-91 10:04:00* Test Item Value Reference Range Interpretation Comments urine color (test code = 5778-6) Yellow Yellow [facility] HospitalpH, urine, wgbqhlzkagtfjuxw7755-58-14 10:04:00* Test Item Value Reference Range Interpretation Comments pH, urine, semiquantitative (test code = 5803-2) 7.5 5.0-7 .5 [facility] Hospitalspecific gravity, body owkau1824-16-42 10:04:00* Test Item Value Reference Range Interpretation Comments specific gravity, body fluid (test code = 2964-5) 1.008 1.00 5-1.030 [facility] Hospitalalanine aminotransferase (SGPT), fmpko9170-88-81 10:04:00 * Test Item Value Reference Range Interpretation Comments alanine aminotransferase (SGPT), serum (test code = 1742-6) 17 1/L 0-44 [facility] Hospitalaspartate aminotransferase (SGOT), dlovo3720-87-22 10:04:00* Test Item Value Reference Range Interpretation Comments aspartate aminotransferase (SGOT), serum (test code = 1920-8) 34 1/ L 0-40 [facility] Hospitalalkaline phosphatase, crolp1035-04-56 10:04:00* Test Item Value Reference Range Interpretation Comments alkaline phosphatase, serum (test code = 1783-0) 72 1/L 39-11 7 [facility] Hospitalbilirubin, serum, dspmu9799-04-31 10:04:00* Test Item Value Reference Range Interpretation Comments bilirubin, serum, total (test code = 1975-2) 1.3 mg/dL 0.0-1.2 H [facility] Hospitalalbumin/globulin ratio, acruo5411-17-59 10:04:00* Test Item Value Reference Range Interpretation Comments albumin/globulin ratio, serum (test code = 1759-0) 0.6 1.2 -2.2 L [facility] Hospitalglobulin, tsxtb9658-63-53 10:04:00* Test Item Value Reference Range Interpretation Comments globulin, serum (test code = 2336-6) 5.7 1.5-4.5 H [facility] Hospitalalbumin, blvru6948-51-35 10:04:00* Test Item Value Reference Range Interpretation Comments albumin, serum (test code = 1751-7) 3.3 g/dL 3.5-5.5 L [facility] Hospitalprotein, total, pvshg5574-44-17 10:04:00* Test Item Value Reference Range Interpretation Comments protein, total, serum (test code = 2885-2) 9.0 g/dL 6.0-8.5 H [facility] Healthcalcium, osgul8457-10-14 10:04:00* Test Item Value Reference Range Interpretation Comments calcium, serum (test code = 2000-8) 8.2 mg/dL 8.7-10.2 L [facility] Hospitalcarbon dioxide, venous uqhrt0335-69-79 10:04:00* Test Item Value Reference Range Interpretation Comments carbon dioxide, venous blood (test code = 202-1) 23 mmol/L 20-2 9 [facility] Healthchloride, undkp8136-88-89 10:04:00* Test Item Value Reference Range Interpretation Comments chloride, serum (test code = 2075-0) 94 mmol/L 96-106 L [facility] Healthpotassium, hhwyc5684-99-87 10:04:00* Test Item Value Reference Range Interpretation Comments potassium, serum (test code = 2823-3) 3.8 mmol/L 3.5-5.2 [facility] Hospitalsodium, zpuuu0640-89-38 10:04:00* Test Item Value Reference Range Interpretation Comments sodium, serum (test code = 2951-2) 134 mmol/L 134-144 [facility] Hospitalurea nitrogen/creatinine ratio, ensam0910-31-95 10:04:00 * Test Item Value Reference Range Interpretation Comments urea nitrogen/creatinine ratio, serum (test code = 3097-3) 15 9-20 [facility] HealtheGFR if Uikdmecn7645-46-66 10:04:00* Test Item Value Reference Range Interpretation Comments eGFR if (test code = 36734-4) 66 mL/min/((173/100) .m2) >59 [facility] HospitalEstimated Glomerular Filtration Rate (calc)2019-03-28 10:04:00* Test Item Value Reference Range Interpretation Comments Estimated Glomerular Filtration Rate (calc) (test code = 95735-3) 57 mL/min/((173/100).m2) >59 L [facility] Hospitalcreatinine, wtodg4880-94-63 10:04:00* Test Item Value Reference Range Interpretation Comments creatinine, serum (test code = 2160-0) 1.44 mg/dL 0.76-1.27 H [facility] Hospitalurea nitrogen, jvzge9545-39-56 10:04:00* Test Item Value Reference Range Interpretation Comments urea nitrogen, blood (test code = 3094-0) 21 mg/dL 6-24 [facility] Hospitalblood glucose, fxbini4169-62-45 10:04:00* Test Item Value Reference Range Interpretation Comments blood glucose, random (test code = 2339-0) 104 mg/dL 65-99 H [facility] Hospitalimmature granulocytes, percentage of total cells, blood 2019-03-28 10:04:00* Test Item Value Reference Range Interpretation Comments immature granulocytes, percentage of total cells, bloo d (test code = 28817-6) 0 % [facility] Hospitalbasophil count, pgjwmqwq6680-33-72 10:04:00* Test Item Value Reference Range Interpretation Comments basophil count, absolute (test code = 98216-2) 0.0 x10E3/uL 0.0-0.2 [facility] HospitalEosinophil Absolute Yzfqd9676-49-40 10:04:00* Test Item Value Reference Range Interpretation Comments Eosinophil Absolute Count (test code = 04942-5) 0.5 X10E3/UL 0.0-0. 4 H [facility] Hospitalmonocyte count, blood, fntjmzpuz5173-71-80 10:04:00* Test Item Value Reference Range Interpretation Comments monocyte count, blood, automated (test code = 742-7) 0.8 X10E3/UL 0 .1-0.9 [facility] Hospitallymphocyte count, blood, ppmafamlj8153-22-29 10:04:00* Test Item Value Reference Range Interpretation Comments lymphocyte count, blood, automated (test code = 731-0) 0.9 X10E3/UL 0.7-3.1 [facility] HospitalAbsolute Icsjgllttqd8835-22-01 10:04:00* Test Item Value Reference Range Interpretation Comments Absolute Neutrophils (test code = 71809-8) 3.5 X10E3/UL 1.4-7.0 [facility] Hospitalbasophils as percent of blood vhdihppmeq7051-72-09 10:04:00* Test Item Value Reference Range Interpretation Comments basophils as percent of blood leukocytes (test code = 707-0) 1 % [facility] Hospitaleosinophils as percent of blood xmfpvopfzl4466-77-90 10:04:00* Test Item Value Reference Range Interpretation Comments eosinophils as percent of blood leukocytes (test code = 713-8) 9 % [facility] Healthmonocytes as percent of blood pwljljypmd8755-26-08 10:04:00* Test Item Value Reference Range Interpretation Comments monocytes as percent of blood leukocytes (test code = 5905-5) 13 % [facility] Hospitallymphocytes as percent of blood djcgoyimfl7151-31-95 10:04:00* Test Item Value Reference Range Interpretation Comments lymphocytes as percent of blood leukocytes (test code = 736-9) 16 % [facility] Hospitalneutrophils as percent of blood icfkmkcrkd3045-23-45 10:04:00* Test Item Value Reference Range Interpretation Comments neutrophils as percent of blood leukocytes (test code = 770-8) 61 % [facility] Hospitalplatelet xvniz8847-92-40 10:04:00* Test Item Value Reference Range Interpretation Comments platelet count (test code = 777-3) 102 X10E3/UL 150-450 L [facility] Hospitalred blood cell distribution dpnri6650-77-83 10:04:00* Test Item Value Reference Range Interpretation Comments red blood cell distribution width (test code = 788-0) 20.5 % 11.6-15.4 H [facility] corpuscular hemoglobin concentration, MJS0056-18-87 10:04:00* Test Item Value Reference Range Interpretation Comments mean corpuscular hemoglobin concentration, RBC (test code = 786-4) 28.8 G/DL 31.5-35.7 L [facility] corpuscular hemoglobin, GFQ9156-84-54 10:04:00* Test Item Value Reference Range Interpretation Comments mean corpuscular hemoglobin, RBC (test code = 785-6) 22.4 pg 2 6.6-33.0 L [facility] corpuscular volume, KDQ4269-77-74 10:04:00* Test Item Value Reference Range Interpretation Comments mean corpuscular volume, RBC (test code = 787-2) 78 fL 79-97 L [facility] Hospitalhematocrit, dlgbp9400-03-59 10:04:00* Test Item Value Reference Range Interpretation Comments hematocrit, blood (test code = 4544-3) 32.3 % 37.5-51.0 L [facility] Hospitalhemoglobin, waazj0684-14-21 10:04:00* Test Item Value Reference Range Interpretation Comments hemoglobin, blood (test code = 718-7) 9.3 g/dL 13.0-17.7 L [facility] Hospitalerythrocyte (RBC) sdooq6976-09-09 10:04:00* Test Item Value Reference Range Interpretation Comments erythrocyte (RBC) count (test code = 789-8) 4.16 X10E6/UL 4.14-5.80 [facility] Hospitalleukocyte count, mygjw1903-83-00 10:04:00* Test Item Value Reference Range Interpretation Comments leukocyte count, blood (test code = 6690-2) 5.7 X10E3/UL 3.4-10.8 [facility] HealthCARDIAC UQEWSAV3480-52-96 17:40:00<0.02[facility] CHEM JUHWE6201-10-00 17:40:91663Eoxuaznx ZxkciptXWGYCKPYMFYP9275-43-53 17:40:00 9.5[facility] WtdaosmKMXFOCOQFGYO5677-20-28 17:40:00* Test Item Value Reference Range Interpretation Comments B/C Ratio (test code = B/C Ratio) 12 1 6-25 [facility] VxtibbxSGDGRMMEGYJY8436-71-36 17:40:006.2[facility] HermannELECTROLYTES 2019-02-26 17:40:00* Test Item Value Reference Range Interpretation Comments A/G Ratio (test code = A/G Ratio) 0.4 1 0.7-1.6 [facility] IuojtsuYWRBNMBZLAYW5705-54-72 17:40:0086[facility] HermannELECTROLYTES 2019-02-26 17:40:0011[facility] OvgwmowAGZIFIWDMSCB8463-43-03 17:40:000.92[facility] QembesxCXXLVDHNWJYX9391-88-63 17:40:35897Zchkbhpt SfwiclkXJPCUQNIXBEU6533-93-80 17:40:003.5[facility] HnzjndeDKKKZAAUEAGY6451-16-34 17:40:65030Utqlkpsq Levon PBKCGKYSHPFG8486-85-82 17:40:0026[facility] LumkircHXNQOWJFHKPU5761-38-89 17:40:00 8.3[facility] PxpqmloXLGKKUUHDWKP8530-07-90 17:40:008.5[facility] SXFBGZZXXXTW4483-82-18 17:40:002.3[facility] XckgifsYBNCNSSCNZUZ0255-47-40 17:40:0040[facility] KuvuejyFTJSUHBRJNKL7793-14-12 17:40:14748Stavvmfn [facility] BSOFBDCSJXRB3465-63-14 17:40:0073[facility] AbekuljQKMVGFABJIAR5228-31-00 17:40:00 0.7[facility] LgapelsBOTVYXHJIXST5399-75-52 17:40:0098[facility]annHEMATOLOGY 2019-02-26 17:40:00See Note (02/26/19 11:40 AM)[facility]annHEMATOLOGY 2019-02-26 17:40:00Normal (02/26/19 11:40 AM)[facility]annHEMATOLOGY 2019-02-26 17:40:0041.5[facility] BvkubjsZLAUGOJXBM6615-29-23 17:40:0032.8[facility] RvbgltpGAJGBTMTJA3877-89-98 17:40:0012.4[facility] UipbnlrFPCIPUMPYT7304-75-67 17:40:0012.3[facility] XddfqcvCNCMMQDZWL5338-32-42 17:40:001.0[facility] LHMYNCKVON6573-08-48 17:40:001.3[facility] CvmsgnuRSCGBCJLIS2026-72-04 17:40:001.0 [facility] ZorznwyBUMLANLFAP0996-29-23 17:40:000.4[facility] HermannHEMATOLOGY 2019-02-26 17:40:000.4[facility] SbuzjxiYVMOUIILUC2505-76-00 17:40:001+ *ABN*(02/26/19 11:40 AM)[facility] DaafkplATAGMKQCDX2035-88-59 17:40:001+ *ABN*(02/26/19 11:40 AM)[facility] OcglkyvPTZHXCIBXE1803-15-71 17:40:002+ (02/26/19 11:40 AM)[facility] MnbwwxrQLYVIXIXBH0371-21-97 17:40:003.1[facility] HbvucanASUENCVLGA9711-89-08 17:40:003.80[facility]oriut WyqfcyaXCANKGBKQT9881-29-86 17:40:008.6[facility] CzpbitvQTZBUQWMJF9533-43-43 17:40:0027.3[facility] UTUXTGZXMW2548-49-50 17:40:0072.0[facility] ZwrhetdPNFJDVHAJR1567-88-88 17:40:00* Test Item Value Reference Range Interpretation Comments MCH (test code = MCH) 22.6 pg 27.0-31.0 [facility] HospitalPmhnjogRAXXFYQVZM9868-52-72 17:40:0031.4[facility] AngelesannHEMATOLOGY 2019-02-26 17:40:0021.4[facility] AiydmfmBDBLSMAKUX9158-33-97 17:40:0043Memoriut CwrxtfzEGRBKNEUXZ9128-36-84 17:40:009.0[facility]ori[facility] AngelesAvxdnkjCTRBCODLFX8830-33-01 17:40:00* Test Item Value Reference Range Interpretation Comments PT (test code = PT) 15.4 s 12.0-14.7 [facility] HospitalIgrfvbkWLSVYLZVQD2647-72-67 17:40:00* Test Item Value Reference Range Interpretation Comments INR (test code = INR) 1.21 1 0.85-1.17 [facility]JhakxmyGNHZEKERBL1684-00-11 17:40:00* Test Item Value Reference Range Interpretation Comments PTT (test code = PTT) 32.4 s 22.9-35.8 [facility] AmericaURINALYSIS PZUFGVCO1760-03-68 08:25:00* Test Item Value Reference Range Interpretation [...] Urine Source? Clean CatchDRUGS OF ABUSE SCREEN NP8005-16-85 08:25:00* Test Item Value Reference Range Interpretation [...] NEGATIVE <300 ng/mL Urine Source? Clean CatchURINALYSIS EGDIVQOK3031-19-78 08:14:00* Test Item Value Reference Range Interpretation [...] Urine Source? Clean CatchDRUGS OF ABUSE SCREEN SI3886-00-71 08:14:00* Test Item Value Reference Range Interpretation [...] Source? Clean Catch- CT ABD PELVIS W/O HUXY4768-90-92 08:02:00 Name: JOCELIN CORREA [facility] : 1970 Age/S: 48 / M [address] [facility] Unit #: [id number] Loc: [place] [address] Phys: Melania Roberts MD Acct: [id number] Di s Date: Status: REG ER PHONE #: [phone] Exam Date: 01/15/2019 0739 FAX #: [phone] Reason: abdominal pain EXAMS: CPT CODE: [id number] CT ABD PELVIS W/O CONT 03253 REASON FOR EXAM: abdomina l pain EXAM [...] 1 Signed Report (CONTINUED) Name: MICHELLE CORREA [facility] : 1970 Age/S : 48 / M [address] Unit #: [id number] Loc: [place] [address] Phys: Maryan Roberts MD Acct: [id number] Dis Date: Status: REG ER PHONE #: [phone] Ex am Date: 01/15/2019 07 FAX #: [phone] Reason: a bdominal pain EXAMS: CPT CODE: [id number] CT ABD PELVIS W/O CONT 77563 <Continued> Abdominal vascular structures: Grossly normal Peritoneum [...] with an ultrasound. Nonobstructing right-sided nephrolithiasis. Location: [facility] at 0802 Reported and signed by: [...] CA) 8.8 mg/dL 8.5-10.1 N HEPATIC FUNCTION DWFQT1555-79-09 06:53:00* Test Item Value Reference Range Interpretation [...] reference range due to change in reagent. URRTSC3206-81-78 06:53:00* Test Item Value Reference Range Interpretation Comments LIPASE (test code = LIP) 202 U/L 73.0-393.0 N URTRGVWX-I0709-59-05 06:53:00* Test Item Value Reference Range Interpretation Comments TROPONIN-I (test code = TROPI) <0.015 ng/mL 0-0.045 N JQVLUPE7744-61-66 06:53:00* Test Item Value Reference Range Interpretation Comments ALCOHOL (test code = ALC) 93 mg/dL 0.0-3.0 H -- INTERPRETIVE DATA NOTE: POSITIVE SCREENING RESULTS SHOULD BE CONSIDERED PRESUMPTIVE.WHEN COLLECTED FOR MEDICAL PURPOSES ONLY. SPECIMEN WILL NOTBE COLLECTED BY CHAIN OF CUSTODY.IF A CONFIRMATION OF POSITIVE RESULTS IS DESIRED, ACONFIRMATION TEST MUST BE REQUESTED BY THE PHYSICIAN AT ANADDITIONAL CHARGE TO THE PATIENT. MSHEQOY7354-13-12 06:52:00* Test Item Value Reference Range Interpretation Comments AMMONIA (test code = AMM) 83 umol/L 11-32 H CBC W/O SJKL8336-30-16 06:39:00* Test Item Value Reference Range Interpretation [...] 10.1 fL 6.7-11.0 N - US ABDOMEN IMSGAIIA6026-67-60 09:19:00 Name: CHELLY CORREA [facility] : 1970 Age/S: 48 / M [address] Unit #: [id number] Loc: [place] [address] Phys: González Nunez MD Acct: [id number] Dis Date: Status: REG CLI PHONE #: [phone] Exam Date: 12/25/2018 0855 FAX #: [phone] Reason: 571.5,K74.60,211.3,D12.6,V85.25,E66.3 EXAMS: CPT CODE: [id number] US ABDOMEN COMPLETE 78063 REASON FOR EXAM: 571.5,K7 4.60,211.3,D12.6,V85.25,E66.3 EXAM ORDER [...] 1 Signed Report (CONTINUED) Name: CHELLY CORREA [facility] : 1970 Age/S: 48 / M [address] [facility] Unit #: [id number] Loc: [place] [address] Phys: González Nunez MD Acct: [id number] Dis Date: Status: REG CLI PHONE #: [phone] Exam Date: 12/25/2018 0855 FAX #: [phone] Reason: 571.5,K74.60,211.3,D12.6,V85.25,E66.3 EXAMS: CPT CODE: [id number] US ABDOMEN COMPLETE 44158 < Continued> Left kidney: parenchyma echogenicity: Normal [...] TERRY RIZVI RT(R),RDMS Trnscb Date/Time: 12/25/2018 (918) t.SDR.RR31 Orig Print D/T: S: 12/25/2018 (09) Probe: PAGE 2 Signed Report [id number] 16:26:00* Test Item Value Reference Range Interpretation Comments GLUBED (test code = GLUBED) 101 mg/dL 74-106 N Performed by certified joggle press operator at [facility] CBC W/AUTO CVME5684-22-34 09:15:00* Test Item Value Reference Range Interpretation [...] = MDIFF) NO, ONLY SCAN NEEDED DIFFERENTIAL RQJZ8559-14-06 09:15:00* Test Item Value Reference Range Interpretation Comments STAIN ACCEPTABILITY (test code = STN ACCEPTABLE) STAIN ACCEPTABLE HYPOCHROMIA (test code = HYPO) 1+ ANISOCYTOSIS (test code = ANISO) 2+ MICROCYTOSIS (test code = MICR) 1+ MORPHOLOGY COMMENT (test code = MOC) NORMAL PLATELET ESTIMATE (test code = PLTEST) DECREASED COMPREHENSIVE METABOLIC [id number] 08:48:00* Test Item Value Reference Range Interpretation [...] FESAT) 5.80 % 13-45 L THYROID STIMULATING FJINROI4742-87-48 08:48:00* Test Item Value Reference Range Interpretation Comments THYROID STIMULATING HORMONE (test code = TSH) 2.940 uIU/mL 0.36-3.7 4 N TSH REFERENCE RANGES: EUTHYROID: 0.35 - 4.3 mIU/mL HYPO : > 5.5 mIU/mL HYPER : < 0.35 mIU/mL AIVMXKJD0087-88-11 08:48:00* Test Item Value Reference Range Interpretation Comments FERRITIN (test code = GRAIBEL) 12 ng/mL 8-388 N COMPREHENSIVE METABOLIC [id number] 08:19:00* Test Item Value Reference Range Interpretation [...] code = FESAT) % 13-45 THYROID STIMULATING OZWDOWE1207-77-90 08:19:00* Test Item Value Reference Range Interpretation Comments THYROID STIMULATING HORMONE (test code = TSH) uIU/mL 0.36-3.7 4 XHTTMFRP6673-95-72 08:19:00* Test Item Value Reference Range Interpretation Comments FERRITIN (test code = GRABIEL) ng/mL 8-388 CBC W/AUTO NJIP7428-26-07 08:11:00* Test Item Value Reference Range Interpretation [...] = MDIFF) NO, ONLY SCAN NEEDED DIFFERENTIAL [id number] 08:11:00* Test Item Value Reference Range Interpretation Comments STAIN ACCEPTABILITY (test code = STN ACCEPTABLE) CABOT RINGS (test code = CAB) MORPHOLOGY COMMENT (test code = MOC) PLATELET ESTIMATE (test code = PLTEST) PLATELET MORPHOLOGY (test code = PLTMORPH) CBC W/AUTO [id number] 08:11:00* Test Item Value Reference Range Interpretation [...] = MDIFF) NO, ONLY SCAN NEEDED DIFFERENTIAL [id number] 08:11:00* Test Item Value Reference Range Interpretation Comments STAIN ACCEPTABILITY (test code = STN ACCEPTABLE) CABOT RINGS (test code = CAB) MORPHOLOGY COMMENT (test code = MOC) PLATELET ESTIMATE (test code = PLTEST) PLATELET MORPHOLOGY (test code = PLTMORPH) CBC W/AUTO [id number] 08:11:00* Test Item Value Reference Range Interpretation [...] = MDIFF) NO, ONLY SCAN NEEDED DIFFERENTIAL [id number] 08:11:00* Test Item Value Reference Range Interpretation Comments STAIN ACCEPTABILITY (test code = STN ACCEPTABLE) MORPHOLOGY COMMENT (test code = MOC) PLATELET ESTIMATE (test code = PLTEST) PLATELET MORPHOLOGY (test code = PLTMORPH) CBC W/AUTO [id number] 08:10:00* Test Item Value Reference Range Interpretation [...] = MDIFF) NO, ONLY SCAN NEEDED DIFFERENTIAL [id number] 08:10:00* Test Item Value Reference Range Interpretation Comments STAIN ACCEPTABILITY (test code = STN ACCEPTABLE) CABOT RINGS (test code = CAB) MORPHOLOGY COMMENT (test code = MOC) PLATELET ESTIMATE (test code = PLTEST) PLATELET MORPHOLOGY (test code = PLTMORPH) [id number] 08:09:00* Test Item Value Reference Range Interpretation Comments AMMONIA (test code = AMM) 89 umol/L 11-32 H [id number] 08:09:00* Test Item Value Reference Range Interpretation Comments GLYCOSYLATED HEMOGLOBIN (HA1C) (test code = GLYHGB) 5.0 % HbA1 4. 8-6.0 N ESTIMATED AVERAGE GLUCOSE (test code = EAG) 97 MG/DL [id number] 05:52:00* Test Item Value Reference Range Interpretation Comments GLUBED (test code = GLUBED) 100 mg/dL 74-106 N Performed by certified joggle press operator at [facility] [id number] 20:26:00* Test Item Value Reference Range Interpretation Comments GLUBED (test code = GLUBED) 111 mg/dL 74-106 H Performed by certified joggle press operator at [facility] PROTHROMBIN [id number] 15:38:00* Test Item Value Reference Range Interpretation [...] (2.5-3.5) IS PATIENT ON ANTICOAGULANTS? NTHROMBOPLASTIN TIME [id number] 15:38:00* Test Item Value Reference Range Interpretation Comments THROMBOPLASTIN TIME PARTIAL (test code = PTT) 36.6 seconds 25.0-36. 5 H IS PATIENT ON ANTICOAGULANTS? [id number] 14:10:00* Test Item Value Reference Range Interpretation Comments PHOSPHORUS (test code = PHOS) 3.3 mg/dL 2.5-4.9 N [id number] 14:10:00* Test Item Value Reference Range Interpretation Comments AMYLASE (test code = JUAN) 69 Unit/L 25-115 N [id number] 14:10:00* Test Item Value Reference Range Interpretation Comments LIPASE (test code = LIP) 116 U/L 73.0-393.0 N [id number] 14:10:00* Test Item Value Reference Range Interpretation Comments MAGNESIUM (test code = MAG) 2.3 mg/dL 1.8-2.4 N VITAMIN [id number] 14:10:00* Test Item Value Reference Range Interpretation Comments VITAMIN B12 (test code = VITB12) 776 pg/mL 193-986 N FOLIC [id number] 14:10:00* Test Item Value Reference Range Interpretation Comments FOLIC ACID (test code = FOL) 33.2 ng/mL 3.10-17.50 H [id number] 14:10:00* Test Item Value Reference Range Interpretation [...] TO THE PATIENT. - CT HEAD/BRAIN W/O [id number] 07:29:00 Name: JOCELIN CORREA [facility] : 1970 Age/S: 48 / M [address] [facility] Unit #: [id number] Loc: [place] [address] Phys: Lolis Parks DO Acct: [id number] Dis Date: Status: REG ER PHONE #: [phone] Exam Date: 12/06/2018 0635 FAX #: [phone] Reason: Altered Mental Status EXAMS: CPT CODE: [id number] CT HEAD/BRAIN W/O CONT 97798 HISTORY: Altered mental status TECHNIQUE: Noncontrast 2.5 [...] (07) ThanhLDP1 Orig Print D/T: S: 12/06/2018 (7392) PAGE 1 Signed Report CBC W/AUTO [id number] 07:26:00* Test Item Value Reference Range Interpretation [...] = MDIFF) NO, ONLY SCAN NEEDED DIFFERENTIAL [id number] 07:26:00* Test Item Value Reference Range Interpretation Comments STAIN ACCEPTABILITY (test code = STN ACCEPTABLE) STAIN ACCEPTABLE HYPOCHROMIA (test code = HYPO) 1+ ANISOCYTOSIS (test code = ANISO) 1+ MACROCYTOSIS (test code = MACR) 1+ PLATELET ESTIMATE (test code = PLTEST) DECREASED PLATELET MORPHOLOGY (test code = PLTMORPH) SIZE VARIABLE URINALYSIS [id number] 07:12:00* Test Item Value Reference Range Interpretation [...] Urine Source? Clean CatchDRUGS OF ABUSE SCREEN [id number] 07:12:00* Test Item Value Reference Range Interpretation [...] NEGATIVE <300 ng/mL Urine Source? Clean CatchURINALYSIS [id number] 07:08:00* Test Item Value Reference Range Interpretation [...] Urine Source? Clean CatchDRUGS OF ABUSE SCREEN [id number] 07:08:00* Test Item Value Reference Range Interpretation [...] METHAURN) <300 ng/mL Urine Source? Clean CatchURINALYSIS [id number] 07:01:00* Test Item Value Reference Range Interpretation [...] Urine Source? Clean CatchDRUGS OF ABUSE SCREEN [id number] 07:01:00* Test Item Value Reference Range Interpretation [...] <300 ng/mL Urine Source? Clean CatchBASIC METABOLIC [id number] 06:46:00* Test Item Value Reference Range Interpretation [...] CA) 8.5 mg/dL 8.5-10.1 N HEPATIC FUNCTION [id number] 06:46:00* Test Item Value Reference Range Interpretation [...] reference range due to change in reagent. [id number] 06:46:00* Test Item Value Reference Range Interpretation Comments TROPONIN-I (test code = TROPI) <0.015 ng/mL 0-0.045 N [id number] 06:46:00* Test Item Value Reference Range Interpretation Comments ACETAMINOPHEN (test code = ACET) < 10 mcg/mL 10-30 L A RANGE OF 10-30 mcg/mL IS A THERAPEUTIC RANGE. TOXIC CONCENTRATIONS: >150 mcg/mL AT 4 HOURS AFTER INGESTION >= 50 mcg/mL AT 12 HOURS AFTER INGESTION [id number] 06:46:00* Test Item Value Reference Range Interpretation Comments SALICYLATE (test code = KAILEY) < 1.7 mg/dL 2.8-20.0 L [id number] 06:46:00* Test Item Value Reference Range Interpretation [...] AT ANADDITIONAL CHARGE TO THE PATIENT. PROTHROMBIN [id number] 06:44:00* Test Item Value Reference Range Interpretation [...] (2.5-3.5) IS PATIENT ON ANTICOAGULANTS? NTHROMBOPLASTIN TIME [id number] 06:44:00* Test Item Value Reference Range Interpretation Comments THROMBOPLASTIN TIME PARTIAL (test code = PTT) 34.6 seconds 25.0-36. 5 N IS PATIENT ON ANTICOAGULANTS? [id number] 06:37:00* Test Item Value Reference Range Interpretation Comments AMMONIA (test code = AMM) 152 umol/L 11-32 H BASIC METABOLIC [id number] 06:31:00* Test Item Value Reference Range Interpretation [...] code = CA) mg/dL 8.5-10.1 HEPATIC FUNCTION [id number] 06:31:00* Test Item Value Reference Range Interpretation [...] TOTAL (test code = ALKP) IUnit/L 45-117 [id number] 06:31:00* Test Item Value Reference Range Interpretation Comments TROPONIN-I (test code = TROPI) ng/mL 0-0.045 UAPBHOCHWSDHF9060-42-58 06:31:00* Test Item Value Reference Range Interpretation Comments ACETAMINOPHEN (test code = ACET) mcg/mL 10-30 GSQRZDWKXM3175-35-28 06:31:00* Test Item Value Reference Range Interpretation Comments SALICYLATE (test code = KAILEY) mg/dL 2.8-20.0 [id number] 06:31:00* Test Item Value Reference Range Interpretation Comments ALCOHOL (test code = ALC) mg/dL 0-3 CBC W/AUTO [id number] 06:21:00* Test Item Value Reference Range Interpretation [...] = MDIFF) NO, ONLY SCAN NEEDED DIFFERENTIAL [id number] 06:21:00* Test Item Value Reference Range Interpretation Comments STAIN ACCEPTABILITY (test code = STN ACCEPTABLE) CABOT RINGS (test code = CAB) MORPHOLOGY COMMENT (test code = MOC) PLATELET ESTIMATE (test code = PLTEST) PLATELET MORPHOLOGY (test code = PLTMORPH) CBC W/AUTO [id number] 06:21:00* Test Item Value Reference Range Interpretation [...] = MDIFF) NO, ONLY SCAN NEEDED DIFFERENTIAL [id number] 06:21:00* Test Item Value Reference Range Interpretation Comments STAIN ACCEPTABILITY (test code = STN ACCEPTABLE) MORPHOLOGY COMMENT (test code = MOC) PLATELET ESTIMATE (test code = PLTEST) PLATELET MORPHOLOGY (test code = PLTMORPH) CBC W/AUTO [id number] 06:21:00* Test Item Value Reference Range Interpretation [...] = MDIFF) NO, ONLY SCAN NEEDED DIFFERENTIAL [id number] 06:21:00* Test Item Value Reference Range Interpretation Comments STAIN ACCEPTABILITY (test code = STN ACCEPTABLE) MORPHOLOGY COMMENT (test code = MOC) PLATELET ESTIMATE (test code = PLTEST) PLATELET MORPHOLOGY (test code = PLTMORPH) CBC W/AUTO [id number] 06:20:00* Test Item Value Reference Range Interpretation [...] = MDIFF) NO, ONLY SCAN NEEDED DIFFERENTIAL [id number] 06:20:00* Test Item Value Reference Range Interpretation Comments STAIN ACCEPTABILITY (test code = STN ACCEPTABLE) CABOT RINGS (test code = CAB) MORPHOLOGY COMMENT (test code = MOC) PLATELET ESTIMATE (test code = PLTEST) PLATELET MORPHOLOGY (test code = PLTMORPH) - XR CHEST 1 [id number] 06:08:00 FAX: Lolis Parks DO Foster: B St: REG Name: JOCELIN CARROLL [facility] : [birth year] Age/S: 48/M [address] [facility] Unit #: [id number] Loc: [place] [address] Phys: Lolis Parks DO Acct: [id number] Dis Date: Status: REG ER PHONE #: [phone] Exam Date: 12/06/2018 0557 FAX #: [phone] Reason: Altered Mental Status EXAMS: CPT CODE: [id number] XR CHEST 1 V 22403 AFTER HOURS SERVICE ON: 12/06/2018 6:07 AM [...] (610) PAG E 1 Signed Report CARDIAC [id number] 02:39:0028[facility]annCARDIAC WDSIPFS1541-41-11 02:39:00< 0.02[facility]annCHEM RNRXD5505-31-18 02:39:19173Xsgnpzqm HermannCHEM PANEL 2018-08-25 02:39:00932Vfcnxlsi HermannCHEM ZKMAU8430-27-59 02:39:002.9[facility]annCHEM XSUWM4437-64-67 02:39:54223Zmdnlfsp HermannCHEM UXEQI9121-17-35 02:39:0028[facility]annCHEM ODHRK1543-81-55 02:39:000.79[facility]annCHEM VLKBT7417-17-93 02:39:00* Test Item Value Reference Range Interpretation Comments B/C Ratio (test code = B/C Ratio) 16 1 6-25 [facility]annCHE[facility] HYJLX6826-19-13 02:39:008.0[facility]annCHEM PANEL 2018-08-25 02:39:0089[facility]annCHEM WUCOF4742-42-73 02:39:000.6[facility]annCHEM MALCQ9511-93-23 02:39:006.1[facility]annCHEM VRKXT3339-97-15 02:39:00* Test Item Value Reference Range Interpretation Comments A/G Ratio (test code = A/G Ratio) 0.3 1 0.7-1.6 [facility]annCHEM ZPLJB4546-50-42 02:39:0026[facility]annCHEM PANEL 2018-08-25 02:39:0077[facility]annCHEM ZSAVM0313-60-62 02:39:001.9[facility]annCHEM EXHPT6640-49-87 02:39:008.9[facility]annCHEM TOQNZ8475-93-57 02:39:007.9[facility]annCHEM OJPCF2245-26-57 02:39:85060Hvutljlw HermannCHEM OJCYT6948-71-06 02:39:0013[facility]annCHEM MAGQU2596-99-14 02:39:50071 [facility] UmkbatnREGSFQPZSS9405-89-32 02:39:000.2[facility] HermannHEMATOLOGY 2018-08-25 02:39:000.6[facility] MuieqjvJBLLAFFQGU1908-45-15 02:39:001.2[facility] LwlxrcoEQUYINHYIS2053-00-99 02:39:000.3[facility] WvkiutoZHCEKVAWGV0993-89-62 02:39:001.3[facility] VtscxmxDFZJTNZDGT3853-80-59 02:39:001+ *ABN*(08/24/18 9:39 PM)[facility] YqvzjotVRPDRTBORT6070-72-25 02:39:0025.3[facility] HermannHEMATOLOGY 2018-08-25 02:39:0053.3[facility] CujaqcfGDQWHGMIPT9787-13-67 02:39:008.8[facility] BizdcdsZSHEMJSBOW1970 02:39:0011.3[facility] PubkifiQMZOEIUJDJ2163-77-70 02:39:00* Test Item Value Reference Range Interpretation Comments PT (test code = PT) 14.7 s 12.0-14.7 [facility] DvrlwbkZNLVPHLITA7895-92-72 02:39:00* Test Item Value Reference Range Interpretation Comments PTT (test code = PTT) 34.7 s 22.9-35.8 [facility] TggxostDDPEAVOHSV9378-32-72 02:39:00* Test Item Value Reference Range Interpretation Comments INR (test code = INR) 1.17 1 0.85-1.17 [facility] GcpziweALLAOSXLBK9649-38-05 02:39:008.4[facility]annHEMATOLOGY 2018-08-25 02:39:0076[facility] NatsdzvUJYKFJJTJM1399-71-27 02:39:0019.3[facility] FmifywaMWVFCCRHWK8636-89-87 02:39:0025.7[facility] CgsvkwjHQVGKAAYXB1245-08-33 02:39:0078.5[facility] LssdyteEIZPAXPMIS8864-87-36 02:39:0031.7[facility] RDWUULIQYU2007-13-94 02:39:00* Test Item Value Reference Range Interpretation Comments MCH (test code = MCH) 24.8 pg 27.0-31.0 [facility] GbmlqabGLBDYVOSID8506-28-08 02:39:003.27[facility]annHEMATOLOGY 2018-08-25 02:39:008.1[facility] ExitcvlKVATDFNPUP0321-65-91 02:39:002.3[facility]annURINE AND NYSLF9085-89-44 09:25:00Negative (08/04/18 4:25 AM)[facility]annBLOOD BANK LUXSLKY4470-50-96 06:09:00Negative (08/04/18 1:09 AM)[facility] HermannCARDIAC IPEUBOZ6280-88-79 06:09:00<0.02[facility]annCHEM PANEL 2018-08-04 06:09:93851Pltzyhyr HermannCHEM QJXAZ0620-61-02 06:09:000.2[facility] HermannCHEM NTWPN0642-82-32 06:09:00* Test Item Value Reference Range Interpretation Comments A/G Ratio (test code = A/G Ratio) 0.3 1 0.7-1.6 [facility]annCHEM EUABS6497-61-28 06:09:005.8[facility] HermannCHEM PANEL 2018-08-04 06:09:000.3[facility] HermannCHEM MQTXL6214-45-94 06:09:000.5[facility]annCHEM KVRXU2109-39-41 06:09:0077[facility] HermannCHEM MUTME4689-04-71 06:09:0059[facility]annCHEM LTSIE6525-78-31 06:09:0023[facility]annCHEM BAHIB2280-20-26 06:09:001.9[facility]annCHEM YOQAR7953-24-03 06:09:007.7 [facility]annCHEM SFGMT1448-93-00 06:09:001.6[facility]annCHEM PANEL 2018-08-04 06:09:72795Eavuvcnz HermannCHEM XRMBP9804-72-67 06:09:45359Aklqlwgl HermannCHEM FCHNW9353-39-59 06:09:007.8[facility]annCHEM GAGHV9419-03-37 06:09:0024[facility] HermannCHEM MKGOU3939-40-61 06:09:33772Xcygekms HermannCHEM NQSUJ7231-72-86 06:09:003.3[facility]annCHEM XOFOJ2767-31-66 06:09:0013 [facility]annCHEM PEXEE4212-83-53 06:09:0099[facility]annCHEM PANEL 2018-08-04 06:09:000.89[facility] HermannCHEM OHOVW7590-50-41 06:09:0013.3[facility] HermannDRUG YKUBFK9870-82-83 06:09:00Negative *NA*(08/04/18 1:09 AM)[facility]annDRUG BBVWAB4917-96-01 06:09:00Negative *NA*(08/04/18 1:09 AM)[facility]annDRUG HNGDKB9757-36-40 06:09:00Negative *NA*(08/04/18 1:09 AM)[facility]annDRUG ODIDBN8390-70-24 06:09:00Positive *ABN*(08/04/18 1:09 AM)[facility]annDR[facility] WXPZUF0845-77-57 06:09:00Negative *NA*(08/04/18 1:09 AM)[facility]annDRUG IQPDXA5987-86-67 06:09:00Negative *NA*(08/04/18 1:09 AM)[facility]annDRUG LJRPAF4623-46-61 06:09:00Negative *NA*(08/04/18 1:09 AM)[facility]annDRUG DWFYKW3578-67-14 06:09:00See Note (08/04/18 1:09 AM)[facility] FAXRJQVNYP1634-36-99 06:09:009.3[facility] YmwavpsLUJCYKMUZN6919-17-45 06:09:001.1 [facility] TiygpnkKRKMQYGOCT4340-58-41 06:09:0010.6[facility] HermannHEMATOLOGY 2018-08-04 06:09:001.6[facility] DdwsvliRABLNRIJEC5753-97-15 06:09:001.4[facility] GlikhwxOTECUGBXYE4030-14-05 06:09:000.4[facility] CugyxuyHOACTEXSUW6560-97-22 06:09:000.4[facility] WzkuslvOZUOJVZXIC8163-16-49 06:09:0042.9[facility] DSZAIALDSI3639-37-53 06:09:0036.1[facility] VtzjojpITRELSPUHJ7285-14-46 06:09:00* Test Item Value Reference Range Interpretation Comments PT (test code = PT) 14.2 s 12.0-14.7 [facility] DdimvaoVWTHGFIHGW9371-84-59 06:09:00* Test Item Value Reference Range Interpretation Comments INR (test code = INR) 1.12 1 0.85-1.17 [facility] GmeyjfwMMVCRWKXEK5800-90-73 06:09:00* Test Item Value Reference Range Interpretation Comments PTT (test code = PTT) 36.4 s 22.9-35.8 [facility] GgpaeccZERUDXGQDH8988-90-13 06:09:008.3[facility] HermannHEMATOLOGY 2018-08-04 06:09:0078[facility] FybvtfnMQCNXZEOUI3221-67-02 06:09:0079.3[facility] VbquyvmPOIHCGUGAD5226-27-66 06:09:00* Test Item Value Reference Range Interpretation Comments MCH (test code = MCH) 24.9 pg 27.0-31.0 [facility] OtleapiOOASFLFIUH9514-78-09 06:09:0031.4[facility] HermannHEMATOLOGY 2018-08-04 06:09:0018.5[facility] DsiwvtwFKZYCHPYKO0865-31-38 06:09:008.3[facility] OtzbysyIWXHFRKDNQ4451-99-49 06:09:003.8[facility] FtvbpodLXAXHLKTJC7030-96-21 06:09:003.34[facility] BlosxthQIBFGSKRVW2890-32-47 06:09:0026.5[facility] YKSXATJWVR2624-95-38 06:09:60420Xwcuzgsq ZbpdqywDEDRJRJLYC4334-20-38 06:09:00 0.362[facility]annURINE AND HBAIF7991-03-77 06:09:00Large *ABN*(08/04/18 1:09 AM)[facility] AND TCBOT0164-70-66 06:09:00Negative (08/04/18 1:09 AM) [facility] VGPTU3645-52-36 06:09:005[facility]UR[facility] AND FGCGM7518-72-74 06:09:0012[facility]annUR[facility] AND VSNEX4548-67-16 06:09:63583 [facility] PXIRF3691-18-49 06:09:00Negative (08/04/18 1:09 AM) [facility] PVERY9723-41-48 06:09:00Negative *NA*(08/04/18 1:09 AM) [facility] NWEIT4087-88-11 06:09:00* Test Item Value Reference Range Interpretation Comments UA Spec Grav (test code = UA Spec Grav) 1.013 1 [facility] BCWIS1253-96-65 06:09:00Clear (08/04/18 1:09 AM) [facility] NCPXM8904-09-16 06:09:00Yellow *NA*(08/04/18 1:09 AM) [facility] VRGYJ2795-33-81 06:09:00* Test Item Value Reference Range Interpretation Comments UA pH (test code = UA pH) 6.0 1 5.0-8.0 [facility]annCHEM LIBJZ3378-71-78 08:02:001.7[facility] HermannCHEM PANEL 2018-06-05 08:02:02516Zzslxfky HermannCHEM XQJJM8186-16-44 08:02:003.5[facility] HermannCHEM GZDYF7003-92-87 08:02:0026[facility] HermannCHEM ZAGPT1766-41-01 08:02:27595Qcytqucr HermannCHEM VWWLJ8894-69-17 08:02:007.8[facility] HermannCHEM BCALI4095-11-84 08:02:000.89[facility] HermannCHEM EKREE5817-57-25 08:02:85680 [facility]annCHEM NEJAG1539-40-97 08:02:0091[facility] HermannCHEM PANEL 2018-06-05 08:02:0011[facility] HermannCHEM OGTWL3851-20-37 08:02:008.5[facility] IcbpftjPMRHKDLAJW5208-95-76 08:02:0068[facility] YbvgtwuNOFEFNYTWL6286-58-87 08:02:009.5[facility] HfndwtgIQDOQWXORB7367-05-21 08:02:0084.3[facility] HYWEEHUWQZ1364-89-69 08:02:0029.3[facility] OmgxrjmLADMUXFLVZ9610-41-41 08:02:00 32.1[facility] RqbtywnKHXXUGFGPZ3906-51-47 08:02:0020.5[facility] HermannHEMATOLOGY 2018-06-05 08:02:00* Test Item Value Reference Range Interpretation Comments MCH (test code = MCH) 27.1 pg 27.0-31.0 [facility] PcdllhePZSSTGNNPV3935-98-51 08:02:009.4[facility] HermannHEMATOLOGY 2018-06-05 08:02:003.0[facility] VzwtsilIYWIDDWJGO7494-63-58 08:02:003.48[facility] GojxemxUGERNXYGFE7038-25-63 08:02:0056.8[facility] RysqaduYRWPFHNYXP2395-87-62 08:02:0018.1[facility] AuknmawMAYMZBGBIK3028-37-76 08:02:0017.9[facility] KPBFEOXXNK7914-40-44 08:02:006.5[facility] DkbslcbAVLYWXANFH5936-50-22 08:02:000.7 [facility] NkhfhzzSXCHMYNRVC3732-54-66 08:02:001.7[facility]annHEMATOLOGY 2018-06-05 08:02:000.2[facility] JlpxmhyEWXHEWECXX6944-30-08 08:02:000.5[facility] UxwkmfnUIDVRVKNKZ1386-99-38 08:02:000.5[facility] HermannPARATHYROID PROFILE 2018-06-04 22:55:001.06[facility] HermannPARATHYROID BEZSHSG5431-73-24 22:55:00 1.07[facility] HermannCHEM SSAEQ0656-10-26 18:00:0069.0[facility] HermannCHEM PANEL 2018-06-04 18:00:27553Oyjeqmtz HermannCHEM EAGRA3184-70-50 18:00:008.3[facility] HermannCHEM KSLSG5792-92-51 18:00:0028[facility] HermannCHEM QCCNV2493-52-36 18:00:006.9[facility] HermannCHEM MZJOS4309-43-19 18:00:50449Dlsabgla HermannCHEM HBMSJ1835-38-81 18:00:000.83[facility] HermannCHEM ZSOAP4074-71-78 18:00:003.3 [facility]annCHEM VQQQX5158-32-23 18:00:54825Zcxzelnf HermannCHEM PANEL 2018-06-04 18:00:0011[facility] HermannCHEM BIDVB1302-06-70 18:00:46191Fbuvtbfi FkfndvzTSDBGGQUNB9074-27-65 18:00:008.8[facility] CfwdhlpPIYRLYRBES5050-92-24 18:00:0033.5[facility] TimuqqnLIRJKMGATZ4041-21-92 18:00:0026.4[facility] IWDBYLYBOO9633-41-96 18:00:0081.8[facility] IgahlpvBNMUEAAZWG0726-85-37 18:00:00 19.8[facility] ZewkbyaBRMMTDJJEK0432-12-60 18:00:00* Test Item Value Reference Range Interpretation Comments MCH (test code = MCH) 27.4 pg 27.0-31.0 [facility] UkgrojvUNJIGJCBZH3525-30-15 18:00:0051[facility] HermannHEMATOLOGY 2018-06-04 18:00:002.3[facility] MtuqtdtMOQLFOAIBT9274-30-59 18:00:003.23[facility] QpmjhywTPKPXPWTAR9113-51-36 18:00:009.1[facility] OtqhhdbLUQLMZKYKJ7948-77-39 18:00:0015.2[facility] NqujhsaDEHQUHRHXV4960-74-49 18:00:001.3[facility] MLDWTZHTMI5793-25-08 18:00:000.5[facility] CjhdoxbKMDKDSQADK5429-81-21 18:00:006.1 [facility] WulmyabLLQIOYDGFC7936-07-99 18:00:000.9[facility] HermannHEMATOLOGY 2018-06-04 18:00:000.1[facility] LlxoaamRQVKBUQWZN0688-96-77 18:00:000.3[facility] JytahukCHHZHKTYIP8318-15-03 18:00:0019.8[facility] TsikwhrPCVMHOAUEN8301-86-14 18:00:0058.0[facility] HermannBODY XPTWLW3743-02-45 17:05:00Ascites *NA*(06/04/18 12:05 PM)[facility]annBODY ZSCVAL3546-64-75 17:05:000.7[facility] HermannBODY MUIRHE8366-94-43 17:05:00Moderate Cloudy *ABN*(06/04/18 12:05 PM)[facility] BODY ETLCGX9066-25-65 17:05:4455344Ppgeyato HermannBODY KDLKVB7439-27-77 17:05:00Red *ABN*(06/04/18 12:05 PM)[facility] HermannBODY OFZSNS1493-22-12 17:05:41857Uogpywss HermannBODY CLKDPP7763-54-88 17:05:00Ascites (06/04/18 12:05 PM)[facility]annBODY YIMIWV2168-13-71 17:05:0019[facility]annB[facility] FLUIDS 2018-06-04 17:05:000[facility]ann[facility] OLVWSZ8332-20-99 17:05:0081[facility]ann[facility] TOADID4764-01-17 17:05:46518Azsywtom HermannBODY GIPOHL5580-15-65 17:05:00Ascites *NA*(06/04/18 12:05 PM)[facility]annB[facility] RWDROS7742-72-04 17:05:00Ascites *NA*(06/04/18 12:05 PM)[facility]ann[facility] LVAVDO2768-91-33 17:05:002.9[facility] HermannCHEM PQMVF4627-66-34 19:58:00880.0[facility] CHEM MPAAQ0411-24-41 19:58:0073[facility]annCHEM VGHCH2564-65-53 19:58:0029 [facility]annCHEM CZXWG6137-28-93 19:58:17533Wkovdxbs HermannCHEM PANEL 2018-06-03 19:58:007.1[facility] HermannCHEM JWOTN6960-40-23 19:58:003.6[facility] HermannCHEM NCZZO6547-83-84 19:58:54584Ubslizau HermannCHEM KCDZP0260-84-94 19:58:00367Erolmvuc HermannCHEM TKPEZ7270-27-29 19:58:0010[facility]annCHEM ILTDM1155-81-64 19:58:001.18[facility]annCHEM RENHO3281-24-17 19:58:008.6 [facility] QxeeazgRRTFSHLGWE8556-38-47 19:58:009.4[facility] HermannHEMATOLOGY 2018-06-03 19:58:0028.1[facility] GwrwicwNZAPTWDROJ8557-75-53 19:58:0082.2[facility] XfomirfYSWPIJPIHB0311-36-45 19:58:00* Test Item Value Reference Range Interpretation Comments MCH (test code = MCH) 27.5 pg 27.0-31.0 [facility] AjvylqeSGRCVYUKVP2493-97-54 19:58:0033.4[facility] HermannHEMATOLOGY 2018-06-03 19:58:0019.9[facility] EdwbemmFKAFTUMCWB0158-56-10 19:58:003.2[facility] SvkmleyEKMGXVUWXX7757-91-76 19:58:003.42[facility] OqefqadTPBRFHUREM7664-62-74 19:58:0059[facility] QpvnzheCPQJIXHRJD9382-87-76 19:58:008.7[facility] KTSUBRWIPS9513-22-77 19:58:002.0[facility] SwpbbzxCZQHRDJXLU6669-72-26 19:58:000.5 [facility] XtchcspDCQWDWBDNC9697-73-46 19:58:000.4[facility] HermannHEMATOLOGY 2018-06-03 19:58:000.2[facility] AqzchbwHXABIXWKJN2947-92-89 19:58:000.9[facility] PvputkkWBAJZTUMPJ0570-48-87 19:58:0013.5[facility] NceaywkGTJRXECVES0663-72-80 19:58:006.3[facility] OmefazlXPLFBNJISR1149-28-19 19:58:0064.6[facility]on JLVRLVFKYW2377-43-14 19:58:0014.7[facility] RkwnjufANLUUQHTIT7905-79-05 19:58:001+ (06/03/18 2:58 PM)[facility] WrtgpqwILFEKAZJMT7751-17-70 19:58:00Rare *ABN*(06/03/18 2:58 PM)[facility] WjtlfvvKTMNFORMYK3627-51-42 19:58:001+ *ABN*(06/03/18 2:58 PM)[facility] UpxhibkOEZJLXKUIH2242-22-46 19:58:00Normal (06/03/18 2:58 PM)[facility] IdhqhywTFDGHFCXSG5138-12-49 19:58:00See Note (06/03/18 2:58 PM)[facility] HermannPARATHYROID ZKQZDNP0760-18-18 19:58:001.00[facility] HermannPARATHYROID QMTPAQF9572-58-63 19:58:001.00[facility] HermannANEMIA STUDY 2018-06-03 09:54:0057[facility] HermannANEMIA RMPEB3520-55-09 09:54:0044[facility] HermannANEMIA XSPDW7595-94-53 09:54:0014[facility] HermannANEMIA KRHAL1025-11-72 09:54:07202Elhikaio HermannANEMIA JVYXT2837-96-18 09:54:22660Nwsdazff [facility] SPECIAL EOKXVSIHS8357-02-41 09:54:000.09[facility] HermannTUMOR UPYCLYU4188-64-40 09:54:003.3[facility] HermannTUMOR PTHUCGR1173-70-30 09:54:005.0[facility] CHEM GWHHF2927-79-43 16:54:16205.0[facility] HermannPARATHYROID RAUTCXB9000-86-84 16:54:000.95[facility] HermannPARATHYROID XBCJRYH4262-90-02 16:54:000.94[facility] HermannCHEM JJHIO8461-48-89 10:44:001.2[facility] HermannCHEM MZJZA2457-90-53 10:44:002.8[facility] HermannCHEM LXVNW6771-08-46 10:44:00* Test Item Value Reference Range Interpretation Comments B/C Ratio (test code = B/C Ratio) 15 1 6-25 [facility]annCHEM EPWEP0942-56-88 10:44:0064[facility] HermannCHEM PANEL 2018-06-02 10:44:0045[facility] HermannCHEM NGYBQ6504-31-02 10:44:001.4[facility]annCHEM RYAYJ2435-65-10 10:44:0015[facility] HermannCHEM DENZA7560-67-55 10:44:00* Test Item Value Reference Range Interpretation Comments A/G Ratio (test code = A/G Ratio) 0.3 1 0.7-1.6 [facility]annCHEM VGISK6396-35-30 10:44:001.7[facility] HermannCHEM PANEL 2018-06-02 10:44:007.3[facility] HermannCHEM VLFLT4207-38-95 10:44:005.6[facility] EroevdfZWJCJMNOPX3779-24-79 10:44:00* Test Item Value Reference Range Interpretation Comments INR (test code = INR) 1.34 1 0.85-1.17 [facility] BuzacmkJMNBRURZYM0422-28-14 10:44:00* Test Item Value Reference Range Interpretation Comments PT (test code = PT) 16.3 s 12.0-14.7 [facility] DpztegmJQPSRYUTKU6322-40-75 10:44:00* Test Item Value Reference Range Interpretation Comments PTT (test code = PTT) 36.5 s 22.9-35.8 [facility]annCHE[facility] AIATT2918-27-13 02:13:001.1[facility]annBLOOD BANK AGQOEFP9577-75-89 01:02:00Negative (06/01/18 8:02 PM)[facility] SLFKG5158-82-93 21:22:00Positive *ABN*(06/01/18 4:22 PM)[facility]annCHEM XXSFM3783-17-79 16:01:0049[facility]annCHEM FRMSS2002-76-98 16:01:0015 [facility]annCHE[facility] WAHKE9603-22-06 16:01:0074[facility]annCHEM PANEL 2018-06-01 16:01:001.2[facility]annCHEM JGXGL8669-82-76 16:01:001.9[facility]annCHEM RFAWQ4774-98-00 16:01:008.2[facility]annCHEM IKYYY5319-55-52 16:01:006.3[facility]annCHEM KOQUM1188-43-16 16:01:00* Test Item Value Reference Range Interpretation Comments A/G Ratio (test code = A/G Ratio) 0.3 1 0.7-1.6 [facility] HermannCHEM HEEJB0021-08-83 16:01:00* Test Item Value Reference Range Interpretation Comments B/C Ratio (test code = B/C Ratio) 13 1 6-25 [facility] HermannCHEM NDXPK4623-49-90 16:01:51654Ihyvrabn HermannHEMATOLOGY 2018-06-01 16:01:00* Test Item Value Reference Range Interpretation Comments INR (test code = INR) 1.18 1 0.85-1.17 [facility] UfmhcroZWGTAQPRAG3396-50-51 16:01:00* Test Item Value Reference Range Interpretation Comments PT (test code = PT) 14.8 s 12.0-14.7 [facility] ZfcpozvLEWKCZPBWH6913-50-08 16:01:00* Test Item Value Reference Range Interpretation Comments PTT (test code = PTT) 33.9 s 22.9-35.8 [facility] MGKUX6982-74-75 16:01:007[facility] ZJJGK4384-21-46 16:01:00Negative (06/01/18 11:01 AM)[facility] XNAWA1179-01-53 16:01:0097[facility] JPAXI0671-64-77 16:01:00 Negative (06/01/18 11:01 AM)[facility] DRVSR0119-01-56 16:01:00 Large *ABN*(06/01/18 11:01 AM)[facility] MMHCB1268-12-86 16:01:00 * Test Item Value Reference Range Interpretation Comments UA Spec Grav (test code = UA Spec Grav) 1.020 1 [facility] QAFXI4117-42-53 16:01:00Slight *ABN*(06/01/18 11:01 AM) [facility] [id number] 16:01:00Dark Yellow (06/01/18 11:01 AM) [facility] JBQKP5987-59-62 16:01:00Negative *NA*(06/01/18 11:01 AM)[facility] QLSUD8086-91-47 16:01:00Small *ABN*(06/01/18 11:01 AM)[facility] EZKST3786-27-26 16:01:00* Test Item Value Reference Range Interpretation Comments UA pH (test code = UA pH) 6.0 1 5.0-8.0 [facility] TKHPP0691-24-95 16:01:00Negative *NA*(06/01/18 11:01 AM)[facility] ABD PELVIS W/SNPG3228-95-97 18:57:00 Name: JOCELIN CORREA [facility] : 1970 Age/S: 48 / M [address] Unit #: [id number] Loc: [place] [address] Phys: Giovanna Syed MD Acct: [id number] Di s Date: Status: REG ER PHONE #: [phone] Exam Date: 05/05/20181826 FAX #: Reason: abd pain EXAMS: CPT CODE: [id number] CT ABD PELVIS W/CONT 87201 HISTORY: Abdominal pain. COMPARISON: December 18, 2017. [...] 1 Signed Report (CONTINUED) Name: JOCELIN CORREA [facility] : 1970 Age/S: [age] / M [address] [facility] Unit #: [id number] Loc: [place] [address] Phys: Sanya Syed MD Acct: [id number] Dis Date: Status: REG ER PHONE #: [phone] Exam Date: 05/05/20181826 FAX #: [phone] Reason: abd pain EXAMS: CPT CODE: [id number] CT ABD PELVIS W/CONT 84264 <Continued> varices. No hydroureteronephrosis. Punctate bilateral 1 [...] RT(R),CT CTDI: DLP: Trnscb Date/Time: 05/05/2018 (1856) [email or web address] Orig Print D/T: S: 05/05/2018 (3680) CTDI: DLP: PAGE 2 Signed Report BASIC [...] CA) 8.1 mg/dL 8.5-10.1 L HEPATIC FUNCTION [id number] 16:39:00* Test Item Value Reference Range Interpretation [...] reference range due to change in reagent. EUXOGS3844-52-60 16:39:00* Test Item Value Reference Range Interpretation Comments LIPASE (test code = LIP) 72 U/L 73.0-393.0 L UWODJRPP-C0782-27-23 16:39:00* Test Item Value Reference Range Interpretation Comments TROPONIN-I (test code = TROPI) <0.015 ng/mL 0-0.045 N WRQYGBG0964-45-67 16:39:00* Test Item Value Reference Range Interpretation [...] ANADDITIONAL CHARGE TO THE PATIENT. BASIC METABOLIC [id number] 16:30:00* Test Item Value Reference Range Interpretation [...] code = CA) mg/dL 8.5-10.1 HEPATIC FUNCTION [id number] 16:30:00* Test Item Value Reference Range Interpretation [...] TOTAL (test code = ALKP) IUnit/L 45-117 EQQSHL0391-66-75 16:30:00* Test Item Value Reference Range Interpretation Comments LIPASE (test code = LIP) U/L 73.0-393.0 NUIQKKSN-F1304-55-23 16:30:00* Test Item Value Reference Range Interpretation Comments TROPONIN-I (test code = TROPI) ng/mL 0-0.045 WQUJIPG4855-97-77 16:30:00* Test Item Value Reference Range Interpretation Comments ALCOHOL (test code = ALC) mg/dL 0-3 CBC W/O PCGD5045-95-93 16:10:00* Test Item Value Reference Range Interpretation [...] = MPV) 10.0 fL 6.7-11.0 N CARDIAC BXASBID6591-60-34 23:31:00<0.02[facility] HermannCARDIAC MHNUQFA2985-65-51 23:31:0030[facility] HermannCHEM FLCRB8642-54-58 23:31:62349Jdeiurwo HermannCHEM OCWTK1813-40-17 23:31:009[facility]annCHEM DMYKV5016-21-14 23:31:000.78 [facility]annCHEM LONCU7650-32-15 23:31:0064[facility]annCHEM PANEL 2018-04-18 23:31:000.4[facility] HermannCHEM FLIAS1793-25-88 23:31:0015[facility] HermannCHEM OTDUO5021-49-80 23:31:003.7[facility] HermannCHEM OHMEU5853-73-98 23:31:22957Dkbkmdnm HermannCHEM RVJRZ7097-95-23 23:31:44307Xbiffefe HermannCHEM UYRHC7947-53-93 23:31:003.7[facility] HermannCHEM BIZVO7108-96-59 23:31:007.5 [facility]annCHEM EBGID7284-27-02 23:31:008.7[facility] HermannCHEM PANEL 2018-04-18 23:31:0027[facility] HermannCHEM MCBHE2088-70-65 23:31:0019[facility] HermannCHEM BFARX7621-57-70 23:31:0098[facility] HermannCHEM HKFFC6764-55-05 23:31:00* Test Item Value Reference Range Interpretation Comments B/C Ratio (test code = B/C Ratio) 09-04 [facility]annCHEM UELNP5025-21-40 23:31:00* Test Item Value Reference Range Interpretation Comments A/G Ratio (test code = A/G Ratio) 1.0 1 0.7-1.6 [facility]annCHE[facility] AQHXF5922-20-34 23:31:009.7[facility] HermannCHEM PANEL 2018-04-18 23:31:003.8[facility] JanyxikBCXUOOIPOWSO4144-25-32 23:31:009.7[facility] MrvusscJTWHZGVMMFQC7138-02-58 23:31:00* Test Item Value Reference Range Interpretation Comments B/C Ratio (test code = B/C Ratio) 12 1 6-25 [facility] UheacdoRUTLHCDEMOHV1341-17-77 23:31:003.8[facility] HermannELECTROLYTES 2018-04-18 23:31:00* Test Item Value Reference Range Interpretation Comments A/G Ratio (test code = A/G Ratio) 1.0 1 0.7-1.6 [facility] ExfvlhhQDXPJWZGDMHY6043-67-17 23:31:0098[facility] HermannELECTROLYTES 2018-04-18 23:31:009[facility] AquitmzAVJPGQHGBQRY1565-11-29 23:31:000.78[facility] AjfwlyfHIDIEOTINMAN4625-24-20 23:31:33496Cplrmorh PlmhevhMGFGKFTTOPRD0573-72-32 23:31:003.7[facility] YzhcxvyEWWQHRUEQNYA1501-05-15 23:31:48030Pzuokasq Levon GVDDVWYFSAPP1063-10-66 23:31:0027[facility] RdzlozdPFZLPFNNPRXT1831-54-20 23:31:00 8.7[facility] GtnaionHICYXRJHELBV9374-92-14 23:31:007.5[facility] YTAFWAULHAUQ4471-94-37 23:31:003.7[facility] KengndlNAKTNUMYGZFV1973-53-16 23:31:0019[facility] MumuzibDCXYHELGDAFV4689-32-21 23:31:0015[facility] IUWQXQENHNNJ7087-14-66 23:31:0064[facility] RbhzvyhDBVXUUPPYZSS0876-90-45 23:31:00 0.4[facility] WwmeoezVNJMPQIHZTIQ0999-51-32 23:31:58632Jtnmuyec HermannHEMATOLOGY 2018-04-18 23:31:009.3[facility] KygxllwLZDKDUOSVL2590-37-48 23:31:004.63[facility] InsboikIOIGYKIVTH1073-33-76 23:31:0014.2[facility] NvteevoPNNLNKXINE4330-55-65 23:31:0041.6[facility] NcaiyznKNOJQOWRSM7333-46-71 23:31:0089.8[facility] EVZXAEOMNK5977-71-15 23:31:00* Test Item Value Reference Range Interpretation Comments MCH (test code = MCH) 30.5 pg 27.0-31.0 [facility] CnvkthrXCEQAFQTAF3925-89-58 23:31:0034.0[facility] HermannHEMATOLOGY 2018-04-18 23:31:0014.5[facility] AagckdpSDVKBXFGCC5066-34-12 23:31:89739Xgqemuzq KdjpowvKICEXRLFHF0576-16-21 23:31:009.3[facility] EtpnggjMRARULKAPU4212-32-45 23:31:00* Test Item Value Reference Range Interpretation Comments INR (test code = INR) 1.05 1 0.85-1.17 [facility] AqepkvuLUUNEMSUXL2661-40-54 23:31:00* Test Item Value Reference Range Interpretation Comments PT (test code = PT) 13.5 s 12.0-14.7 [facility] SffrwfbXKALSDKWUW4527-57-55 23:31:00* Test Item Value Reference Range Interpretation Comments PTT (test code = PTT) 29.1 s 22.9-35.8 [facility] FdcntqxSREIXMUYUE3130-78-06 23:31:0069.7[facility] HermannHEMATOLOGY 2018-04-18 23:31:0023.9[facility] KzctpzyAGZPRUBGFK5462-34-03 23:31:004.6[facility] HgpkvyjBFEHZPRLSY2472-26-23 23:31:001.5[facility] RllkgouJSPZLNMAVS4698-05-75 23:31:000.3[facility] CuppwdyZQVKIFPUHS2495-04-27 23:31:006.5[facility] HSPXPSAROJ0601-86-35 23:31:002.2[facility] ZtyedxeSQJCVMJOVG3334-53-55 23:31:000.4 [facility] HojgblsCINTZAGGEB5494-35-42 23:31:000.1[facility]annURINE AND STOOL 2018-04-18 23:31:00Clear (04/18/18 5:31 PM)[facility] AND STOOL 2018-04-18 23:31:00* Test Item Value Reference Range Interpretation Comments UA Spec Grav (test code = UA Spec Grav) 1.010 1 [facility] AJZGW2491-88-08 23:31:00* Test Item Value Reference Range Interpretation Comments UA pH (test code = UA pH) 8.0 1 5.0-8.0 [facility] YTJQZ7508-00-85 23:31:00Negative (04/18/18 5:31 PM) [facility] WYKZI5989-41-77 23:31:00Negative *NA*(04/18/18 5:31 PM) [facility] CZMUA4968-70-51 23:31:00Negative *NA*(04/18/18 5:31 PM) [facility] EQNEU2520-51-19 23:31:00Negative *NA*(04/18/18 5:31 PM) [facility] CMLOJ5678-80-78 23:31:00Negative (04/18/18 5:31 PM) [facility] XVUTF2796-67-15 23:31:00Negative (04/18/18 5:31 PM) [facility] KVFEZ7786-79-48 23:31:00Trace *ABN*(04/18/18 5:31 PM) [facility] RDGDL6500-15-98 23:31:006[facility]ann[facility] AND DSWSL3114-37-32 23:31:001[facility]annUR[facility] AND VQHJA1421-05-62 23:31:006 [facility] HermannBASIC METABOLIC GWNLR7400-95-29 21:06:00* Test Item Value Reference Range Interpretation [...] CA) 8.1 mg/dL 8.5-10.1 L HEPATIC FUNCTION YRPIU3393-00-88 21:06:00* Test Item Value Reference Range Interpretation [...] reference range due to change in reagent. AVGBBUMWO8813-53-22 21:06:00* Test Item Value Reference Range Interpretation Comments MAGNESIUM (test code = MAG) 1.5 mg/dL 1.8-2.4 L SQCAJIVK-D4553-71-06 21:06:00* Test Item Value Reference Range Interpretation Comments TROPONIN-I (test code = TROPI) <0.015 ng/mL 0-0.045 N PROTHROMBIN IRPJ0814-11-27 20:45:00* Test Item Value Reference Range Interpretation [...] (2.5-3.5) IS PATIENT ON ANTICOAGULANTS? NTHROMBOPLASTIN TIME PZIAJSO4659-38-27 20:45:00* Test Item Value Reference Range Interpretation Comments THROMBOPLASTIN TIME PARTIAL (test code = PTT) 40.7 seconds 25.0-36. 5 H IS PATIENT ON ANTICOAGULANTS? NBASIC METABOLIC NFWQB2701-83-58 20:40:00* Test Item Value Reference Range Interpretation [...] code = CA) mg/dL 8.5-10.1 HEPATIC FUNCTION FNQLJ5062-58-17 20:40:00* Test Item Value Reference Range Interpretation [...] TOTAL (test code = ALKP) IUnit/L 45-117 OCGRKUJWE0668-08-35 20:40:00* Test Item Value Reference Range Interpretation Comments MAGNESIUM (test code = MAG) mg/dL 1.8-2.4 OUDTIRJH-U9694-35-06 20:40:00* Test Item Value Reference Range Interpretation Comments TROPONIN-I (test code = TROPI) ng/mL 0-0.045 CBC W/O NIZZ6736-04-17 20:37:00* Test Item Value Reference Range Interpretation [...] fL 6.7-11.0 N - CT HEAD/BRAIN W/O KMJT0980-62-70 20:09:00 Name: JOCELIN CORREA [facility] : 1970 Age/S: 48 / M [address] Unit #: [id number] Loc: [place] [address] Phys: MARYAN ROBERTS MD Acct: [id number] Dis Date: Status: REG ER PHONE #: [phone] Exam Date: 04/18/20182007 FAX #: [phone] Reason: fall, head trauma, blood in ear EXAMS: CPT CODE: [id number] CT HEAD/BRAIN W/O CONT 03542 REASON FOR EXAM: fall, head trauma, blood [...] PAGE 1 Signed Report - US ABDOMEN HAYSVKKW1335-28-99 07:09:00 Name: CHELLY CORREA [facility] : 1970 Age/S: 48 / M [address] [facility] Unit #: [id number] Loc: [place] [address] Phys: Giovanna Rees MD Acct: [id number] Dis Date: Status: ADM IN PHONE #: [phone] Exam Date: 04/09/201826 FAX #: [phone] Reason: abd pain. evaluate lesion in ascites EXAMS: CPT CODE: [id number] US ABDOMEN COMPLETE 16269 REASON FOR EXAM: abd pain. evaluate lesion [...] Probe: PAGE 1 Signed Report CBC W/AUTO KDZN1349-07-38 06:40:00* Test Item Value Reference Range Interpretation [...] = MDIFF) NO, ONLY SCAN NEEDED DIFFERENTIAL UGVI2193-88-01 06:40:00* Test Item Value Reference Range Interpretation Comments STAIN ACCEPTABILITY (test code = STN ACCEPTABLE) STAIN ACCEPTABLE POLYCHROMASIA (test code = POLC) 2+ ANISOCYTOSIS (test code = ANISO) 2+ MACROCYTOSIS (test code = MACR) 2+ PLATELET ESTIMATE (test code = PLTEST) DECREASED PLATELET MORPHOLOGY (test code = PLTMORPH) NORMAL BASIC METABOLIC JMOBU8043-16-61 06:20:00* Test Item Value Reference Range Interpretation [...] code = CA) 7.8 mg/dL 8.5-10.1 L HGOOZYQFD3942-08-58 06:20:00* Test Item Value Reference Range Interpretation Comments MAGNESIUM (test code = MAG) 1.4 mg/dL 1.8-2.4 L CBC W/AUTO DBGM3701-86-30 06:17:00* Test Item Value Reference Range Interpretation [...] = MDIFF) NO, ONLY SCAN NEEDED DIFFERENTIAL DTLG5699-25-17 06:17:00* Test Item Value Reference Range Interpretation Comments STAIN ACCEPTABILITY (test code = STN ACCEPTABLE) CABOT RINGS (test code = CAB) MORPHOLOGY COMMENT (test code = MOC) PLATELET ESTIMATE (test code = PLTEST) PLATELET MORPHOLOGY (test code = PLTMORPH) CBC W/AUTO [id number] 06:17:00* Test Item Value Reference Range Interpretation [...] = MDIFF) NO, ONLY SCAN NEEDED DIFFERENTIAL [id number] 06:17:00* Test Item Value Reference Range Interpretation Comments STAIN ACCEPTABILITY (test code = STN ACCEPTABLE) CABOT RINGS (test code = CAB) MORPHOLOGY COMMENT (test code = MOC) PLATELET ESTIMATE (test code = PLTEST) PLATELET MORPHOLOGY (test code = PLTMORPH) CBC W/AUTO [id number] 06:17:00* Test Item Value Reference Range Interpretation [...] = MDIFF) NO, ONLY SCAN NEEDED DIFFERENTIAL [id number] 06:17:00* Test Item Value Reference Range Interpretation Comments STAIN ACCEPTABILITY (test code = STN ACCEPTABLE) MORPHOLOGY COMMENT (test code = MOC) PLATELET ESTIMATE (test code = PLTEST) PLATELET MORPHOLOGY (test code = PLTMORPH) CBC W/AUTO [id number] 06:17:00* Test Item Value Reference Range Interpretation [...] = MDIFF) NO, ONLY SCAN NEEDED DIFFERENTIAL [id number] 06:17:00* Test Item Value Reference Range Interpretation Comments STAIN ACCEPTABILITY (test code = STN ACCEPTABLE) CABOT RINGS (test code = CAB) MORPHOLOGY COMMENT (test code = MOC) PLATELET ESTIMATE (test code = PLTEST) PLATELET MORPHOLOGY (test code = PLTMORPH) BASIC METABOLIC [id number] 06:12:00* Test Item Value Reference Range Interpretation [...] CALCIUM (test code = CA) mg/dL 8.5-10.1 LQISORSLH5518-24-02 06:12:00* Test Item Value Reference Range Interpretation Comments MAGNESIUM (test code = MAG) mg/dL 1.8-2.4 PROTHROMBIN ITIU4031-84-67 06:12:00* Test Item Value Reference Range Interpretation [...] PATIENT ON ANTICOAGULANTS? N- CT ABD PELVIS W/ZGKB1394-03-65 13:44:00 Name: CHELLY CORREA [facility] : 1970 Age/S: 48 / M [address] [facility] Unit #: [id number] Loc: [place] [address] Phys: Fransisco Valdez MD Acct: [id number] Di s Date: Status: REG ER PHONE #: Exam Date: 04/09/2018 1234 FAX #: Reason: upper abd pain EXAMS: CPT CODE: [id number] CT ABD PELVIS W/CONT 40260 EXAM: CT of the abdomen a nd [...] Mandujano RT(R),(MR),(CT) CTDI: DLP: Trnscb Date/Time: 04/09/2018 (0256) [email or web address] Orig Print D/T: S: 04/09/2018 (8910) CTDI: DLP: PAGE 1 Signed Report URINALYSIS GDYJRTQK7963-09-79 13:28:00* Test Item Value Reference Range Interpretation [...] per LPF NONE-FEW Urine Source? Clean CatchURINALYSIS IMYUCSWK8130-40-62 12:46:00* Test Item Value Reference Range Interpretation [...] HPF 0-5 Urine Source? Clean CatchCBC W/O [id number] 12:33:00* Test Item Value Reference Range Interpretation [...] MPV) 11.6 fL 6.7-11.0 H BASIC METABOLIC [id number] 12:08:00* Test Item Value Reference Range Interpretation [...] CA) 8.2 mg/dL 8.5-10.1 L HEPATIC FUNCTION VKKIW8498-76-99 12:08:00* Test Item Value Reference Range Interpretation [...] reference range due to change in reagent. KOFJGY0354-92-87 12:08:00* Test Item Value Reference Range Interpretation Comments LIPASE (test code = LIP) 114 U/L 73.0-393.0 N NVDJYXOR-O2985-08-28 12:08:00* Test Item Value Reference Range Interpretation Comments TROPONIN-I (test code = TROPI) <0.015 ng/mL 0-0.045 N BASIC METABOLIC GSHGQ9911-70-55 11:58:00* Test Item Value Reference Range Interpretation [...] code = CA) mg/dL 8.5-10.1 HEPATIC FUNCTION [id number] 11:58:00* Test Item Value Reference Range Interpretation [...] TOTAL (test code = ALKP) IUnit/L 45-117 [id number] 11:58:00* Test Item Value Reference Range Interpretation Comments LIPASE (test code = LIP) U/L 73.0-393.0 BASIC METABOLIC JRXXO8844-59-15 11:52:00* Test Item Value Reference Range Interpretation [...] code = CA) mg/dL 8.5-10.1 HEPATIC FUNCTION WCBYI0743-88-11 11:52:00* Test Item Value Reference Range Interpretation [...] TOTAL (test code = ALKP) IUnit/L 45-117 ASLQGR6890-00-95 11:52:00* Test Item Value Reference Range Interpretation Comments LIPASE (test code = LIP) U/L 73.0-393.0 PROTHROMBIN [id number] 11:42:00* Test Item Value Reference Range Interpretation [...] (2.5-3.5) IS PATIENT ON ANTICOAGULANTS? NTHROMBOPLASTIN TIME TVLKUOX4920-86-69 11:42:00* Test Item Value Reference Range Interpretation Comments THROMBOPLASTIN TIME PARTIAL (test code = PTT) 39.0 seconds 25.0-36. 5 H IS PATIENT ON ANTICOAGULANTS? WENCESLAOSXCQHNC1530-28-47 12:51:00 RUN DATE: 12/25/17 [place] PAGE 1 RUN TIME: 1251 Specimen Inqui ry RUN USER: INTERFACE PATIENT: JOCELIN CORREA ACCT #: V [id number] LOC: HaleyJESSICA U #: [id number] AGE/SX: 47/M ROOM: [facility] RE12/19/17NATALIYA DR: Giovanna Rees MD : 70 BED: A DIS: 12/21/17 STATUS: DIS IN TLOC: SPEC #: [id number] RECD: 12/19/17 STATUS: SOULalito REQ #: [id number] MELISA: 12/19/[address] [facility] [address]: Yuval Multani MD ENTERED: 10/09/18-1236 SP TYPE: FL ASCITES OTHR DR: Ian Olivas i, MD ORDERED: GROSS COPIES TO: Ian Cook MD [address], [address] [place], [place] [address] Yuval Multani MD [address] [place] [address] PROCEDURES: GROSS (12/25/17- 7) TISSUES: ASCITES FLUID - 20 ML RED CLINICAL HISTORY MELISA ECTION DATE: 12/19/17 HISTORY CIRRHOSIS, HEPATITIS C, PANCYTOPENIA FINAL DIAGNOSIS Ascites fluid for cytology, paracentesis: MESOTHELIAL CELLS, MACROPHAGES, WHITE BLOOD CELLS- PREDOMINATELY LYMPHOCYTES, AND R ED BLOOD CELLS NEGATIVE FOR MALIGNANCY DMW/arin D 11467, 883 05 MACROSCOPIC The specimen consists of 20 mL of red fluid for conc entration and evaluation. A cell block will be prepared. GROSS PERFORM ED AT [facility] CONTINUED ON NEXT PAGE RUN DATE: 12/25/17 [facility] PAGE 2 RUN TIME: 1251 Specimen Inquiry RUN USER: INTERFACE SPEC #: [id number] PATIENT: JOCELIN CORREA #[id number] (Continued)------ ------ MACROSCOPIC (Continued) [address], [facility] [place] [place] [address] (P)[phone] MICROSCOPIC MICROSCOPIC PERFOR MED AT [facility] All of the stains, including any controls perfor med, stain appropriately. [facility] [address], [place] [address] (P)[phone] PERFORMING SITE Diagnosis perform ed at: [facility], [place] [address] [place] [address] Signed SIGNATURE ON FILE SheehanMireya 12/25/17 1251 END OF REPORT STOMACH 2017-12-22 13:27:00 RUN DATE: 12/22/17 [place] [facility] PAGE 1 RUN TIME: 1327 Specimen Inqui ry RUN USER: INTERFACE PATIENT: JOCELIN CORREA ACCT #: V [id number] LOC: DEON U #: [id number] AGE/SX: 47/M ROOM: [facility] RE12/19/17REG DR: Giovanna Rees MD : 70 BED: A DIS: 12/21/17 STATUS: DIS IN TLOC: SPEC #: [id number] RECD: 12/21/17 STATUS: [facility] #: [id number] MELISA: 12/20/17- SUBM DR: González Nunez MD ENTERED: 12/21/17-1110 SP TYPE: STOMACH OTHR DR: Ian Olivas i, MD ORDERED: GROSS COPIES TO: González Nunez MD [address] [place] [address] Ian Cook MD [address] [place] [address] PROCEDURES: GROSS (12/22/17-1054 ) TISSUES: [...] STAIN NE GATIVE FOR MALIGNANCY RRB/ D [address], 286[address] CONTINUED ON NEXT PAGE RUN DATE: 12/22/17 [place] [facility] Lab PAGE 2 RUN TIME: 1327 Specimen Inquiry RUN USER: INTERF MARTIN SPEC # : [id number] PATIENT: SUNNYJOCELIN #[id number] (Cont inued) MACROSCOPIC The specimen is received in formali n, labeled with the patient's name, identified as "gastric", and consists of l lavonnet king biopsy tissue measuring 0.35 cm in aggregate, submitted for H E and G iemsa stains. GROSS PERFORMED AT [facility] [address] [place] [address] (P)[phone] MICR OSCOPIC MICROSCOPIC PERFORMED AT [facility] All of the stains, including any controls performed, stain appropriately. [facility] [address] [place] [address] (p)[phone] PERFORM ING SITE Diagnosis performed at: [facility] [address] [place] [address] --------- --- Signed SIGNATURE ON FILE Elvis Schmid 12/22/17 1327 END OF REP ORT CHEM [id number] 14:13:001.2[facility] UxgscjkJKIJLDYSOI8187-57-76 07:45:001.0[facility] CpfzsvmHLSLZVCEHY1214-62-01 07:45:001.9[facility] RUXHZKNPSH0687-97-33 07:45:000.2[facility] QhhdbnySPOQLJDPMX0061-01-08 07:45:000.5 [facility] MkrryqbXJYEOOMYAL4860-58-41 07:45:000.9[facility] 2017-09-16 07:45:005.5[facility] FvcrncmFYYDLYZMTA0881-16-30 07:45:0053.9[facility] JnmvtvpCHDEALEWZR7452-37-31 07:45:0012.6[facility] GtbkzblMLEXKBGTIQ7996-08-29 07:45:0027.1[facility] UirqxebGDSXXUQJBQ4900-65-37 07:45:00* Test Item Value Reference Range Interpretation Comments PTT (test code = PTT) 33.3 s 22.9-35.8 [facility] OsmaqkpYLSGXMEEPB8648-18-72 07:45:00* Test Item Value Reference Range Interpretation Comments INR (test code = INR) 1.53 1 0.85-1.17 [facility] TqxpvfoNIENHFHBXZ9491-88-30 07:45:00* Test Item Value Reference Range Interpretation Comments PT (test code = PT) 18.5 s 12.0-14.7 [facility] XtnkkcbXZQCOHEGRB5670-62-38 07:45:0033.1[facility] 2017-09-16 07:45:0029.3[facility] WqoznwkALTVRAGVSB6989-96-12 07:45:0097.4[facility] ShwfvgnYGJYXAAKSC5564-83-67 07:45:00* Test Item Value Reference Range Interpretation Comments MCH (test code = MCH) 32.2 pg 27.0-31.0 [facility] CrqtdtuTMABNWDCKA0117-88-83 07:45:0068[facility] 2017-09-16 07:45:0017.5[facility] TljequtMWIPBXBZUR3782-08-16 07:45:008.2[facility] AuswbhpVHHCZTRFQN7718-98-77 07:45:003.01[facility] SzeyiysFLECUKBFGW1529-49-72 07:45:009.7[facility] DgnqxxnLZVGCGFKXL3339-89-83 07:45:003.6[facility] CARDIAC WJECOOZ4035-86-19 07:24:00<1.3[facility]ann[facility] USBWAKN2816-59-39 07:24:00<1.0[facility] UNZNFBA5718-11-16 07:24:0079[facility] CARDIAC MTRMLRW3409-35-71 07:24:00<0.02[facility]annCHEM LFNCC9871-19-33 07:24:006.0[facility]annCHEM CTHYY0970-18-96 07:24:00* Test Item Value Reference Range Interpretation Comments B/C Ratio (test code = B/C Ratio) 16 1 6-25 [facility]annCHE[facility] FTKZQ4555-85-80 07:24:00* Test Item Value Reference Range Interpretation Comments A/G Ratio (test code = A/G Ratio) 0.3 1 0.7-1.6 [facility]ann[facility] XATJU4916-35-20 07:24:0099[facility]annCHEM PANEL 2017-09-16 07:24:0086[facility]ann[facility] MURRS5436-28-03 07:24:001.5[facility]annCHE[facility] NTVJK4554-74-84 07:24:007.7[facility]annCHEM SQMCB5694-93-59 07:24:39947Gqrfmvjk HermannCHEM VHPAZ2713-50-93 07:24:00891Pcjnqncq HermannCHEM DQWCL2178-58-78 07:24:004.7[facility]annCHEM RONFI8974-32-75 07:24:008.3 [facility]ann[facility] JXLFZ6754-79-32 07:24:0026[facility]annCHEM PANEL 2017-09-16 07:24:007.8[facility]annCHEM FYQGI2783-93-29 07:24:0033[facility]annCHEM GXTBX9138-50-74 07:24:001.8[facility]annCHEM MHGFD0272-44-66 07:24:000.82[facility]annCHEM DRQFF1699-48-99 07:24:0013[facility]annCHEM TITNW0351-46-45 07:24:84328Cabovofh HermannCHEM AZUCD5896-23-48 07:24:0095 [facility]CHE[facility] SIWGX4141-23-85 07:24:34579Rnmhltvz HermannURINE AND STOOL 2017-09-16 07:24:004.0[facility] DXYTA6456-42-07 07:24:00Negative (09/16/17 2:24 AM)[facility] DFMXF5966-62-36 07:24:00Negative (09/16/17 2:24 AM)[facility] JZEMS4412-32-13 07:24:003[facility] FMIFZ1067-48-37 07:24:0069[facility] STOOL 2017-09-16 07:24:00Slight *ABN*(09/16/17 2:24 AM)[facility] STOOL 2017-09-16 07:24:00* Test Item Value Reference Range Interpretation Comments UA Spec Grav (test code = UA Spec Grav) 1.019 1 [facility] ROSIH7739-67-33 07:24:00* Test Item Value Reference Range Interpretation Comments UA pH (test code = UA pH) 6.0 1 5.0-8.0 [facility] BGAXQ3813-29-96 07:24:00Moderate *ABN*(09/16/17 2:24 AM) [facility] UXJFM4237-45-12 07:24:00Negative *NA*(09/16/17 2:24 AM) [facility] Marvsix6999-69-74 16:48:00* Test Item Value Reference Range Interpretation Comments Blood Culture (test code = 09675833) NO GROWTH AFTER 5 DAYS, FINAL REPORT [facility] A IgM Frixugvg2369-43-29 10:18:00* Test Item Value Reference Range Interpretation Comments Hepatitis A IgM Antibody (test code = 61340-9) Negative [facility] B Surface Mjzhrpj1394-94-88 10:18:00* Test Item Value Reference Range Interpretation Comments Hepatitis B Surface Antigen (test code = 5196-1) Negative [facility] B Core IgM Kxpedzcl5488-31-39 10:18:00* Test Item Value Reference Range Interpretation Comments Hepatitis B Core IgM Antibody (test code = 53977-5) Negative [facility] C Ntcnkvaw8247-99-48 10:18:00* Test Item Value Reference Range Interpretation Comments Hepatitis C Antibody (test code = 91297-1) 11.0- Reference Range: 0.0 - 0.9 s/co ratioNegative: < 0.8Indeterminate: 0.8 - 0.9Positive: > 0.9 The CDC recommends that a positive HCV antibody result be followed up with a HCV Nucleic Acid Amplification test (516235).Results called to SERG LINTON RN at 1017 on 06/20/17 by Michael Whalen. RB [place].Testing performed by:[address] [id number]: [facility] HeightsPlatelet Cxldpypk6699-78-82 10:18:00* Test Item Value Reference Range Interpretation Comments Platelet Estimate (test code = 83063-3) SLIGHTLY DECREASED [facility] HospitalPlatelet Morphology Cypayuh3003-98-32 10:18:00* Test Item Value Reference Range Interpretation Comments Platelet Morphology Comment (test code = 95321-6) FEW GIANT [facility] HospitalHypochromasia2018-04-09 10:18:00* Test Item Value Reference Range Interpretation Comments Hypochromasia (test code = 728-6) MODERATE [facility] HospitalPoikilocytosis2018-04-09 10:18:00* Test Item Value Reference Range Interpretation Comments Poikilocytosis (test code = 779-9) SLIGHT [facility] HospitalAnisocytosis2018-04-09 10:18:00* Test Item Value Reference Range Interpretation Comments Anisocytosis (test code = 702-1) SLIG [facility] HospitalRed Cell Morphology Ancelib8543-71-83 10:18:00* Test Item Value Reference Range Interpretation Comments Red Cell Morphology Comment (test code = 6742-1) NORMAL [facility] HospitalProthrombin Rdkq2498-88-44 08:34:00* Test Item Value Reference Range Interpretation Comments Prothrombin Time (test code = 5902-2) 18.4 11.9-14.5 H [facility] HospitalProthromb Time International Ratio 2017-06-19 08:34:00* Test Item Value Reference Range Interpretation Comments Prothromb Time International Ratio (test code = 6301-6) 1.66 Oral Anticoagulant Therapy INR Values:1. Low Intensity Therapy 1.5 - 2.02 . Moderate Intensity Therapy 2.0 - 3.03. High Intensity Therapy(1) 2.5 - 3. 54. High Intensity Therapy(2) 3.0 - 4.05. Panic Value INR > 5.0 [facility] HospitalActivated Partial Thromboplast Time 2017-06-19 08:34:00* Test Item Value Reference Range Interpretation Comments Activated Partial Thromboplast Time (test code = 91170-3) 37.5 23.8-35.5 H [facility] HospitalTotal Ibcjijrhu5328-18-15 08:09:00* Test Item Value Reference Range Interpretation Comments Total Bilirubin (test code = 1975-2) 2.0 0.2-1.2 [facility] Centerodium Rivug7640-07-96 08:01:00* Test Item Value Reference Range Interpretation Comments Sodium Level (test code = 2951-2) 131 136-145 L [facility] HospitalPotassium Tessn2164-43-43 08:01:00* Test Item Value Reference Range Interpretation Comments Potassium Level (test code = 2823-3) 3.5 3.5-5.1 [facility] HospitalChloride Bndmj5324-13-49 08:01:00* Test Item Value Reference Range Interpretation Comments Chloride Level (test code = 2075-0) 102 98-107 [facility] HospitalCarbon Dioxide Anion0698-09-92 08:01:00* Test Item Value Reference Range Interpretation Comments Carbon Dioxide Level (test code = 2028-9) 27 22-29 [facility] HospitalAnion Wwl3254-95-91 08:01:00* Test Item Value Reference Range Interpretation Comments Anion Gap (test code = 35440-0) 5.5 8-16 L [facility] HospitalBlood Urea Jjftolap0797-11-03 08:01:00* Test Item Value Reference Range Interpretation Comments Blood Urea Nitrogen (test code = 3094-0) 8 7-26 [facility] HospitalCreatinine2018-04-09 08:01:00* Test Item Value Reference Range Interpretation Comments Creatinine (test code = 2160-0) 0.85 0.72-1.25 [facility] HospitalBUN/Creatinine Nzerj7345-73-95 08:01:00* Test Item Value Reference Range Interpretation Comments BUN/Creatinine Ratio (test code = 3097-3) 9 6-25 [facility] HospitalEstimat Glomerular Filtration Rate 2017-06-19 08:01:00* Test Item Value Reference Range Interpretation Comments Estimat Glomerular Filtration Rate (test code = 66590-3) 60- >60 Ranges were taken from the National Kidney Disease Education Program and the [employer]ori advent[employer] literature.Reference ranges:60 or greater: Ssvohy78-98 ( for 3 consecutive months): Chronic kidney disease 15 or less: Kidney failureMethodist McKinney HospitalGlucose Srvjw5249-29-98 08:01:00* Test Item Value Reference Range Interpretation Comments Glucose Level (test code = UVV7000) 121 74-118 H [facility] HospitalCalcium Sktpx4395-05-62 08:01:00* Test Item Value Reference Range Interpretation Comments Calcium Level (test code = 80885-5) 7.3 8.4-10.2 L [facility] HospitalAspartate Amino Transf (AST/SGOT) 2017-06-19 08:01:00* Test Item Value Reference Range Interpretation Comments Aspartate Amino Transf (AST/SGOT) (test code = Aspartate Amino Transf (AST/SGOT)) 51 5-34 H [facility] HospitalAlanine Aminotransferase (ALT/SGPT) 2017-06-19 08:01:00* Test Item Value Reference Range Interpretation Comments Alanine Aminotransferase (ALT/SGPT) (test code = 1742-6) 17 0-55 [facility] HospitalTotal Ufysmdy1419-05-79 08:01:00* Test Item Value Reference Range Interpretation Comments Total Protein (test code = 2885-2) 6.5 6.5-8.1 [facility] HospitalAlbumin2018-04-09 08:01:00* Test Item Value Reference Range Interpretation Comments Albumin (test code = 1751-7) 1.6 3.5-5.0 L [facility] HospitalGlobulin2018-04-09 08:01:00* Test Item Value Reference Range Interpretation Comments Globulin (test code = 20642-8) 4.9 2.3-3.5 H [facility] HospitalAlbumin/Globulin Zwiaf8284-91-33 08:01:00 * Test Item Value Reference Range Interpretation Comments Albumin/Globulin Ratio (test code = 1759-0) 0.3 0.8-2.0 L [facility] HospitalAlkaline Mhqgrxbxtsc3073-85-80 08:01:00* Test Item Value Reference Range Interpretation Comments Alkaline Phosphatase (test code = 6768-6) 47 40-150 [facility] HospitalWhite Blood Dersq8958-37-25 07:48:00* Test Item Value Reference Range Interpretation Comments White Blood Count (test code = 6690-2) 2.52 4.8-10.8 L [facility] HospitalRed Blood Tooom3575-54-01 07:48:00* Test Item Value Reference Range Interpretation Comments Red Blood Count (test code = 789-8) 2.78 4.3-5.7 L [facility] HospitalHemoglobin2018-04-09 07:48:00* Test Item Value Reference Range Interpretation Comments Hemoglobin (test code = 37675-6) 9.3 14.0-18.0 L [facility] HospitalHematocrit2018-04-09 07:48:00* Test Item Value Reference Range Interpretation Comments Hematocrit (test code = 4544-3) 27.3 38.2-49.6 L [facility] HospitalMean Corpuscular Tyccco0939-77-87 07:48:00* Test Item Value Reference Range Interpretation Comments Mean Corpuscular Volume (test code = 787-2) 98.2 81-99 [facility] HospitalMean Corpuscular Bhudlztidj4241-17-26 07:48:00* Test Item Value Reference Range Interpretation Comments Mean Corpuscular Hemoglobin (test code = 785-6) 33.5 28-32 H [facility] HospitalMean Corpuscular Hemoglobin Concent 2017-06-19 07:48:00* Test Item Value Reference Range Interpretation Comments Mean Corpuscular Hemoglobin Concent (test code = 786-4) 34.1 31-35 [facility] HospitalRed Cell Distribution Ovtvy0581-42-00 07:48:00* Test Item Value Reference Range Interpretation Comments Red Cell Distribution Width (test code = 24624-0) 15.1 11.7 -14.4 H [facility] HospitalPlatelet Lsylz2720-84-72 07:48:00* Test Item Value Reference Range Interpretation Comments Platelet Count (test code = 777-3) 46 140-360 LL Results called to SOILA JACKRN at 0748 on 06/19/17 by Michael Whalen. RB [place].[facility] HospitalNeutrophils (%) (Auto)2017-06-19 07:48:00* Test Item Value Reference Range Interpretation Comments Neutrophils (%) (Auto) (test code = 66611-5) 48.0 38.7-80.0 [facility] HospitalLymphocytes (%) (Auto)2017-06-19 07:48:00 * Test Item Value Reference Range Interpretation Comments Lymphocytes (%) (Auto) (test code = 736-9) 27.0 18.0-39.1 [facility] HospitalMonocytes (%) (Auto)2017-06-19 07:48:00* Test Item Value Reference Range Interpretation Comments Monocytes (%) (Auto) (test code = 5905-5) 16.3 4.4-11.3 H [facility] HospitalEosinophils (%) (Auto)2017-06-19 07:48:00 * Test Item Value Reference Range Interpretation Comments Eosinophils (%) (Auto) (test code = 713-8) 7.9 0.0-6.0 H [facility] HospitalBasophils (%) (Auto)2017-06-19 07:48:00* Test Item Value Reference Range Interpretation Comments Basophils (%) (Auto) (test code = 706-2) 0.4 0.0-1.0 [facility] HospitalIM GRANULOCYTES %2017-06-19 07:48:00* Test Item Value Reference Range Interpretation Comments IM GRANULOCYTES % (test code = IM GRANULOCYTES %) 0.4 0.0- 1.0 [facility] HospitalNeutrophils # (Auto)2017-06-19 07:48:00* Test Item Value Reference Range Interpretation Comments Neutrophils # (Auto) (test code = 751-8) 1.2 2.1-6.9 L [facility] HospitalLymphocytes # (Auto)2017-06-19 07:48:00* Test Item Value Reference Range Interpretation Comments Lymphocytes # (Auto) (test code = 01056-4) 0.7 1.0-3.2 L [facility] HospitalMonocytes # (Auto)2017-06-19 07:48:00* Test Item Value Reference Range Interpretation Comments Monocytes # (Auto) (test code = 742-7) 0.4 0.2-0.8 [facility] HospitalEosinophils # (Auto)2017-06-19 07:48:00* Test Item Value Reference Range Interpretation Comments Eosinophils # (Auto) (test code = 711-2) 0.2 0.0-0.4 [facility] HospitalBasophils # (Auto)2017-06-19 07:48:00* Test Item Value Reference Range Interpretation Comments Basophils # (Auto) (test code = 704-7) 0.0 0.0-0.1 [facility] HospitalAbsolute Immature Granulocyte (auto 2017-06-19 07:48:00* Test Item Value Reference Range Interpretation Comments Absolute Immature Granulocyte (auto ([place] t code = Absolute Immature Granulocyte (auto) 0.01 0-0.1 [facility] HospitalDifferential Total Cells Counted 2017-06-16 09:31:00* Test Item Value Reference Range Interpretation Comments Differential Total Cells Counted (test code = Differen tial Total Cells Counted) 100 [facility] HospitalNeutrophils % (Manual)2017-06-16 09:31:00 * Test Item Value Reference Range Interpretation Comments Neutrophils % (Manual) (test code = 30710-2) 73 40-74 [facility] HospitalLymphocytes % (Manual)2017-06-16 09:31:00 * Test Item Value Reference Range Interpretation Comments Lymphocytes % (Manual) (test code = 737-7) 14 19-48 L [facility] HospitalMonocytes % (Manual)2017-06-16 09:31:00* Test Item Value Reference Range Interpretation Comments Monocytes % (Manual) (test code = 744-3) 2 3.4-9.0 L [facility] HospitalEosinophils % (Manual)2017-06-16 09:31:00 * Test Item Value Reference Range Interpretation Comments Eosinophils % (Manual) (test code = 714-6) 8 0-7 H [facility] HospitalBasophils % (Manual)2017-06-16 09:31:00* Test Item Value Reference Range Interpretation Comments Basophils % (Manual) (test code = 88565-8) 1 0-1.5 [facility] HospitalMetamyelocytes %2017-06-16 09:31:00* Test Item Value Reference Range Interpretation Comments Metamyelocytes % (test code = 740-1) 2 0-0 H [facility] HospitalVitamin B12 Lgcvs3278-34-79 07:59:00* Test Item Value Reference Range Interpretation Comments Vitamin B12 Level (test code = 62716-0) 887 213-816 H [facility] HospitalFolate2018-04-06 07:59:00* Test Item Value Reference Range Interpretation Comments Folate (test code = 2284-8) 10.3 7.0-15.4 [facility] HospitalFerritin2018-04-06 07:39:00* Test Item Value Reference Range Interpretation Comments Ferritin (test code = 2276-4) 220.60 21.81-274.66 [facility] HospitalIron Couvh3791-52-71 07:25:00* Test Item Value Reference Range Interpretation Comments Iron Level (test code = 2498-4) 102 65-175 [facility] HospitalTotal Iron Binding Ljpwefof0218-16-95 07:25:00* Test Item Value Reference Range Interpretation Comments Total Iron Binding Capacity (test code = 2500-7) 274 261-4 78 [facility] HospitalPercent Iron Bgxbaxrtul6329-26-81 07:25:00* Test Item Value Reference Range Interpretation Comments Percent Iron Saturation (test code = 2502-3) 37 15-50 [facility] HospitalTransferrin2018-04-06 07:25:00* Test Item Value Reference Range Interpretation Comments Transferrin (test code = 3034-6) 196 174-364 [facility] HospitalDirect Ccrxurwld3898-42-22 07:22:00* Test Item Value Reference Range Interpretation Comments Direct Bilirubin (test code = 53171-2) 2.0 0.0-0.5 H [facility] HospitalAmylase Nticc4456-26-71 07:22:00* Test Item Value Reference Range Interpretation Comments Amylase Level (test code = 1798-8) 65 25-125 [facility] HospitalLipase2018-04-06 07:22:00* Test Item Value Reference Range Interpretation Comments Lipase (test code = 3040-3) 16 8-78 [facility] HospitalPercent Reticulocyte Hmvsu0388-18-75 07:04:00* Test Item Value Reference Range Interpretation Comments Percent Reticulocyte Count (test code = 01840-0) 2.6 0.8-2 .2 H [facility] HospitalAmmonia2018-04-05 21:00:00* Test Item Value Reference Range Interpretation Comments Ammonia (test code = 02002-9) 58 31-123 [facility] HospitalBody Fluid Eplafqqlmfb4296-03-05 18:25:00 * Test Item Value Reference Range Interpretation Comments Body Fluid Neutrophils (test code = 27274-2) 11 MESOTHELIAL CELLS SEEN, RESULTED "OTHER"[facility] Fluid Edxtoobchiz2513-86-81 18:25:00* Test Item Value Reference Range Interpretation Comments Body Fluid Lymphocytes (test code = 78551792) 15 [facility] HospitalBody Fluid Mhxufafev9163-89-72 18:25:00* Test Item Value Reference Range Interpretation Comments Body Fluid Monocytes (test code = 60968-4) 64 [facility] HospitalBody Fluid Other Jfgbb2550-75-09 18:25:00 * Test Item Value Reference Range Interpretation Comments Body Fluid Other Cells (test code = 100059378) 10 [facility] HospitalBody Fluid Total Cells Sgztgzu5611-68-39 18:25:00* Test Item Value Reference Range Interpretation Comments Body Fluid Total Cells Counted (test code = 65864-8) 100 [facility] HospitalBody Fluid Pdhsbnf2834-77-43 18:25:00* Test Item Value Reference Range Interpretation Comments Body Fluid Comment (test code = Body Fluid Comment) SEE COMMENT [facility] Centertool Occult Qledm9047-11-91 18:21:00* Test Item Value Reference Range Interpretation Comments Stool Occult Blood (test code = 2335-8) POSITIVE NEGATIVE H [facility] HospitalBody Fluid Pget6819-38-56 17:33:00* Test Item Value Reference Range Interpretation Comments Body Fluid Type (test code = 55969-4) PERITONEAL RIGHT ABD FLUIDMethodist McKinney HospitalBody Fluid Cskvh0719-81-48 17:33:00* Test Item Value Reference Range Interpretation Comments Body Fluid Color (test code = 6824-7) YELLOW [facility] Fluid Bmvosxzjdn5299-95-58 17:33:00 * Test Item Value Reference Range Interpretation Comments Body Fluid Appearance (test code = 9335-1) CLOUDY [facility] HospitalBody Fluid GSO5921-42-44 17:33:00* Test Item Value Reference Range Interpretation Comments Body Fluid WBC (test code = 6743-9) 163 [facility] HospitalBody Fluid PUZ0270-84-60 17:33:00* Test Item Value Reference Range Interpretation Comments Body Fluid RBC (test code = 6741-3) 1519 [facility] HospitalUrine AYP7380-62-51 16:17:00* Test Item Value Reference Range Interpretation Comments Urine WBC (test code = 5821-4) NONE 0-5 [facility] HospitalUrine DDA9464-16-77 16:17:00* Test Item Value Reference Range Interpretation Comments Urine RBC (test code = 26446-6) 11-20 0-5 H [facility] HospitalUrine Rfvwsjbs3580-16-26 16:17:00* Test Item Value Reference Range Interpretation Comments Urine Bacteria (test code = 12355-0) NONE NONE [facility] HospitalUrine Epithelial Icigk2132-53-78 16:17:00 * Test Item Value Reference Range Interpretation Comments Urine Epithelial Cells (test code = 90349-6) NONE NONE [facility] HospitalUrine Vqhyy2284-52-66 15:54:00* Test Item Value Reference Range Interpretation Comments Urine Color (test code = 5778-6) ORANGE YELLOW H [facility] HospitalUrine Objhbrh5059-25-74 15:54:00* Test Item Value Reference Range Interpretation Comments Urine Clarity (test code = 27217-7) CLOUDY CLEAR H [facility] HospitalUrine Specific Vxejdpk9108-95-50 15:54:00 * Test Item Value Reference Range Interpretation Comments Urine Specific [place] (test code = 5811-5) 1.010 1.010-1.02 5 [facility] HospitalUrine fI3046-05-51 15:54:00* Test Item Value Reference Range Interpretation Comments Urine pH (test code = 01065-1) 7 5-7 [facility] Leukocyte Iwlgijpr0201-20-63 15:54:00* Test Item Value Reference Range Interpretation Comments Urine Leukocyte Esterase (test code = 5799-2) NEGATIVE NEGATIVE [facility] Iigeetp4721-31-82 15:54:00* Test Item Value Reference Range Interpretation Comments Urine Nitrite (test code = 71719-7) NEGATIVE NEGATIVE [facility] Tvryapi8264-02-93 15:54:00* Test Item Value Reference Range Interpretation Comments Urine Protein (test code = 5804-0) 1+ NEGATIVE H [facility] Glucose (UA)2017-06-15 15:54:00* Test Item Value Reference Range Interpretation Comments Urine Glucose (UA) (test code = 2349-9) NEGATIVE NEGATIVE [facility] Gkssyxn6099-68-99 15:54:00* Test Item Value Reference Range Interpretation Comments Urine Ketones (test code = 43231-0) TRACE NEGATIVE H [facility] Ngxbqvluekls8849-03-62 15:54:00* Test Item Value Reference Range Interpretation Comments Urine Urobilinogen (test code = 82125-1) 8 0.2-1 H [facility] Dckxnxtyy5016-24-77 15:54:00* Test Item Value Reference Range Interpretation Comments Urine Bilirubin (test code = 1978-6) 2+ NEGATIVE H Confirmatory test currently unavailable. False positive results may occur.[facility] Fetby4780-64-70 15:54:00* Test Item Value Reference Range Interpretation Comments Urine Blood (test code = 92344-6) 2+ NEGATIVE H [facility] [address] [address] Patient Name: JOCELIN CORREA MR #: [id number] : 1970 Age/Sex: 47/M Req #: [id number] Adm Physician: ROME HOPPER MD Ordered by: AMARA GUTHRIE MD Report #: [id number] Location: MED/SURG Room/Bed: [facility] Procedure: [id number] US/US LIVER Exam Date: 06/20/17 Exam Time: [...] TO: AMARA GUTHRIE MD CT ABDOMEN/PELVIS [address] [place] [address] Patient Name: JOCELIN CORREA MR #: [id number] : 1970 Age/Sex: 47/M Req #: [id number] Adm Physician: Ordered by: EZ MANDUJANO MD Report #: [id number] Location: ER Room/Bed: Procedure: [id number] CT/CT ABDOMEN/PELVIS W Exam Date: Exam Time: REPORT STATUS: Signed [place] OCEDURE: CT ABDOMEN AND PELVIS WITH CONTRAST [...] 2. Large volume ascites. 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 3. Splenomegaly likely related to portal hypertens ion. Dictated by: Deandre Gan M.D. on 06/15/2017 at 14:50 Electronically approved by: Deandre Gan M.D. on 06/15/2017 at 14:50 Dictated By: DEANDRE GAN MD 1450 Transcribed By: MARCO on 06/15/17 1450 COPY TO: EZ MANDUJANO MD US GUIDED PARACENTESIS [place] [address] Patient Name: JOCELIN CORREA MR #: [id number] : 1970 Age/Sex: 47/M Req #: [id number] Adm Physician: ROME HOPPER MD Ordered by: JESUS MARKS OSTEOLOGY TEACHER Report #: [id number] Location: [facility] Room/Bed: [place] [address] Procedure: [id number] US /US GUIDED PARACENTESIS Exam Date: 06/15/17 [...]
--- OUTSIDE RECORDS SUMMARY | 2019-10-11 14:32 | XMS REPORT | Continuity of Care Document ---
Author Author [facility] t Organization [facility] Address [address] [place] [address] Phone Unavailable Care Team Providers Care Division Supervisor Name Role Phone Jennifer GARRISON III PCP [...] Attphys Bill Berger Attphys Eli Delgado Attphys [phone] Casi Justice Sahanh Attphys ROME HOPPER Attphys Unavailable Greg GÓMEZ Admphys Unavailable DAVI KELLY Admphys Unavailable Nabeel Valero Nigel Admphys Tamika Guzman Admphys ROME HOPPER Admphys Unavailable Vane Du Unavailable Payers Payer Name Policy Type Policy Number Effective Date Expiration Date Greg kidd [facility] [facility] Medicare Complete [id number] 2019 00:00:00 [facility] Problems Condition Name Condition Details Condition Category Status Onset Date Resolution Date Last Treatment Date Treating Clinician Comments Source Hematuria Condition Active 2019-03-29 00:00:00 11:29:13 [facility] Condition Active 2019-02-27 00:00:00 02-27 09[facility] Active 2019-02-27 00:00:00 2019-02-27 09:46:22 [facility] Hepatitis C, chronic Condition Active 2019-02-27 00:00:00 2019-02-27 09:46:22 [facility] Liver cirrhosis Condition Active 2019-02-27 00:00:00 28-02-18 09:46:22 [facility] ABDOMINAL PAIN ABDO YOLIS PAIN Active 02/26/2019 [facility] Active 2019-02-26 00:00:00 2019-02-26 16:11:00 [facility] ABD PAIN ABD PAIN Active 08/24/2018 [facility] Active 2018-08-24 00:00:00 2018-08-24 21:51:00 [facility] BLOODY STOOL/STOMACH PAIN BLOO DY STOOL/STOMACH PAIN Active 06/01/2018 [facility] Diagnosis Active 2018-06-01 00:00: 00 2018-06-01 10:32:00 [facility] GIB, LIVER CIRRHOSIS, ABD PAIN, PORTAL V GIB, LIVER CIRRHOSIS, ABD PAIN, PORTAL V Active 06/01/2018 [facility] Active 2018-06-01 00:00:00 2018-06-06 16:57:00 [facility] HEADACHE HEAD ACHE Active 04/18/2018 [facility] Active 2018-04-18 00:00:00 2019-07-01 13:22:00 [facility] OTHER OTHE R Active 09/16/2017 [facility] Diagnosis Active 2017-09-16 00:00:00 2017-11-16 10:48:00 [facility] Abdominal pain Abdominal pain Problem Active [facility] Alcoholic cirrhosis of liver with ascites Alcoholic ci rrhosis of liver with ascites Problem Active [facility] Fever Fever Problem Active [facility] Portal vein thrombosis Problem Active [facility] Pancytopenia Problem Active [facility] Hyponatremia Problem Active [facility] Gastrointestinal hemorrhage Problem Active [facility] Small bowel obstruction Problem Active [facility] Abdominal ascites Problem Active [facility] Headache Head ache 11/05/2018 [facility] Problem 2018-11-05 16:44:23 [facility] Liver disease, unspecified Tonya er disease, unspecified 11/05/2018 [facility] Problem 2018-11-05 16:44:2 3 [facility] Chest pain, unspecified Ches t pain, unspecified 11/05/2018 [facility] Problem 2018-11-05 16:44:23 [facility] GASTROINTESTINAL HEMORRHAGE, UNSPECIFIED GASTROINTESTINAL HEMORRHAGE, UNSPECIFIED Active [facility] Diagnosis Active 2018-06-06 16:57:00 Nash Dos Santos UNSPECIFIED CIRRHOSIS OF LIVER UNSPECIFIED CIRRHOSIS OF LIVER Active [facility] Diagnosis Active 201 11-13-26 16:57:00 [facility] UNSPECIFIED ABDOMINAL PAIN UNS PECIFIED ABDOMINAL PAIN Active [facility] Diagnosis Active 2018-06-06 16:57:0 0 Tahira Dos Santos Encounter for examination and observation following ot her accident Encounter for examination and observation following other accident 04/24/2018 11/05/2018 [facility] Problem 2018-04-24 05:08:12 2018 16:44:23 2018-11-05 16:44:23 Tahira Dos Santos Unspecified abdominal pain Uns pecified abdominal pain 09/16/2017 09/19/2017 [place] Problem 2017-09-16 05:00 :00 2017-09-19 01:50:07 2017-09-19 01:50:07 Tahira lopez Allergies, Adverse Reactions, Alerts Allergy Name Allergy Type Status Severity Reaction(s) Onset Date Inacti ve Date Treating Clinician Comments Source No Known Allergies DA Active U 2019-01-15 00:00:00 [facility] No Known Allergies DA Active U 2018-05-05 00:00:00 [facility] No Known Allergies DA Active U 2018-04-09 00:00:00 [facility] No Known Allergies DA Active U 2017-12-18 00:00:00 [facility] No Known Allergies DA Active U 2017-08-03 00:00:00 [facility] No Known Allergies DA Active U 2017-06-03 00:00:00 [facility] No Known Medication Allergies No Known Medication Allergies Active Tahira Dos Santos Social History Social Habit Start Date Stop Date Quantity Comments Source time of call 2019-06-11 12:03:49 2019-06-11 12:03:49 06/11/2019 12:04 PM [facility] is there any chance that you could be ? 2019-03-28 0 8:32:24 2019-03-28 08:32:24 No [facility] drug use, illicit 2019-03-28 08:32:24 2019-03-28 08:32:24 Never [facility] alcohol use 2019-03-28 08:32:24 2019-03-28 08:32:24 Previously [facility] passive cigarette smoke exposure 2019-03-28 08:32:24 2019-03-28 08:32 :24 No [facility] social history reviewed E&M 2019-03-28 08:32:24 2019-03-28 08:32 :24 reviewed today [facility] Occupation #1 2019-02-27 08:37:46 2019-02-27 08:37:46 [facility] 2019-02-27 08:37:46 2019-02-27 08:3 7:46 No [facility] Social History 2018-06-02 00:41:01 2018-06-02 00:41:01 Tahira Dos Santos Sex Ass[birth year] At 1970 00:00:00 1970 00:00:00 Male [facility] Smoking Status Start Date Stop Date Source Smokes tobacco daily (finding) 2019-03-28 08:32:24 [facility] Medications Ordered Medication Name Filled Medication Name Start Date Stop Da te Current Medication? Ordering Clinician Indication Dosage Frequency Signature (SIG) Comments Components Source Cefdinir (Omnicef) 300 Mg CAPSULE Cefdinir (Omnicef) 300 Mg CAPSULE 2019-09-02 09:43:00 Yes 300 Twice A Day [facility] Furosemide Furosemide 2019-09-02 09:41:00 Yes 20 Twi ce A Day [facility] Magnesium Oxide (Mag-Oxide) 400 Mg TABLET Magnesium Ox kassy (Mag-Oxide) 400 Mg TABLET 2019-09-02 09:41:00 Yes 400 Twice A Day [facility] Midodrine Hcl Midodrine Hcl 2019-09-02 09:41:00 Yes 10 Three Times A Day At 8:00AM, 12:00PM, And 4:00PM [facility] Potassium Chloride (K Dur*) 10 Meq TABCR Potassium Chl oride (K Dur*) 10 Meq TABCR 2019-09-02 09:41:00 Yes 20 Twice A Day [facility] Apixaban (Eliquis) 2.5 Mg TABLET Apixaban (Eliquis) 2.5 Mg T ABLET 2019-08-29 12:22:00 Yes 2.5 Twice A Day [facility] Ascorbic Acid Ascorbic Acid 2019-08-29 12:22:00 Yes 500 Daily [facility] Docusate Sodium Docusate Sodium 2019-08-29 12:22:00 Yes 100 Daily [facility] Ferrous Sulfate Ferrous Sulfate 2019-08-29 12:22:00 Yes 325 Daily [facility] Pantoprazole Sodium (Protonix) 40 Mg TABLET. Pantopr azole Sodium (Protonix) 40 Mg TABLET. 2019-08-29 12:22:00 Yes 40 Twice Daily Before Meals [facility] Tizanidine Hcl Tizanidine Hcl 2019-08-29 12:22:00 Yes 4 Twice A Day as needed for Muscle Cramps [facility] Tramadol Hcl (Ultram 50MG*) 50 Mg TAB Tramadol Hcl (Ultram 5 0MG*) 50 Mg TAB 2019-08-29 12:22:00 Yes 50 Every 6 Hours as n eeded for Pain [facility] Levofloxacin (Levaquin) 500 Mg TABLET Levofloxacin (Levaquin ) 500 Mg TABLET 2019-08-16 17:45:00 2019-08-24 00:00:00 No 500 Daily [facility] Pantoprazole Sodium (Protonix) 40 Mg TABLET. Pantopr azole Sodium (Protonix) 40 Mg TABLET. 2019-08-16 13:12:2019-09-02 00:00:00 No 40 Daily@0600 [facility] Furosemide (Lasix) 40 Mg TABLET Furosemide (Lasix) 40 Mg TAB LET 2019-08-16 13:12:00 2019-08-29 00:00:00 No 40 Daily [facility] Spironolactone Spironolactone 2019-08-16 13:12:00 2019-08-29 00:00:00 No 50 Daily [facility] Lactulose Lactulose 2019-08-16 13:12:2019-08-24 00:00:00 No 20 Daily [facility] ZOFRAN (ONDANSETRON HCL) 4 MG TABS 2019-03-28 00:00:00 202 00:00:00 No take As Needed 3 times daily for nausea [facility] ZOFRAN (ONDANSETRON HCL) 4 MG TABS 2019-02-27 00:00:00 Yes Vane Ana Laura take 1 tablet 3 times daily for nausea prn [facility] Saline Flush 0.9% 2019-02-26 17:34:00 No Notes: Same as: BD Posiflush Sterile [facility] Saline Flush 0.9% 2018-08-25 02:09:00 No Notes: (Same as: BD Posiflush) [facility] Rocephin 2018-08-04 10:01:00 No 1 gm, Route: IVPB, Drug form: PDR/INJ, ONCE, Dosing Weight 90.909, kg, Priority: STAT, Start date: 08/04/18 5:01:00 CDT, Stop date: 08/04/18 5:01:00 CDT, ABX Indication: Intra-abdominal Infection [facility] Fentanyl 2018-08-04 06:35:00 No 50 microgram, Route: IVP, ONCE, Dosing Weight 90.909, kg, Priority: STAT, Start date: 08/04/18 1:35:00 CDT, Stop date: 08/04/18 1:35:00 CDT [facility] Zofran 2018-08-04 06:34:00 No 4 mg, Route: IVP, Drug form: INJ, ONCE, Dosing Weight 90.909, kg, Priority: STAT, Start date: 08/04/18 1:34:00 CDT, Stop date: 08/04/18 1:34:00 CDT [facility] 2018-08-04 06:28:00 No 25 microgram, Route: IVP, ONCE, Dosing Weight 90.909, kg, Priority: STAT, Start date: 08/04/18 1:28:00 CDT, Stop date: 08/04/18 1:28:00 CDT [facility] Octreotide 2018-08-04 06:26:00 No 50 microgram, Route: IV, ONCE, Dosing Weight 90.909, kg, Start date: 08/04/18 1:26:00 CDT, Stop date: 08/04/18 1:26:00 CDT [facility] pantoprazole 2018-08-04 06:26:00 No 80 mg, Route: IVP, ONCE, Dosing Weight 90.909, kg, Priority: STAT, Start date: 08/04/18 1:26:00 CDT, Stop date: 08/04/18 1:26:00 CDT [facility] Sodium Chloride 0.9% (Bolus) IV 2018-08-04 06:26:00 No 1,000 mL, Infuse Over: 1 hr, Route: IV, ONCE, Priority: STAT, Dosing Weight 90.909 kg, Start date: 08/04/18 1:26:00 CDT, Stop date: 08/04/18 1:26:00 CDT [facility] Spironolactone 2018-06-06 14:00:00 No Notes: (Same As: Aldactone) [facility] Furosemide 40 MG Oral Tablet 2018-06-06 14:00:00 No Notes: (Same as: Lasix) May cause GI upset. Give with food or milk. [facility] Folic Acid 2018-06-06 14:00:00 No Notes: (S faheem as: Folvite) [facility] riFAXimin 550 mg oral tablet 2018-06-05 22:30:00 Yes 550 mg = 1 tab, PO, Q12H, # 60 tab, 0 Refill(s), Pharmacy: [facility]/pharmacy #[id number] [facility] Ondansetron 4 MG Oral Tablet [Zofran] 2018-06-05 22:21:00 Y es 4 mg = 1 tab, PO, Q8H, PRN Nausea/vomiting, # 15 tab, 0 Refill(s), Pharmacy: [facility]/pharmacy #[id number] [facility] Lactulose 667 MG/ML Oral Solution 2018-06-05 22:21:00 Yes 10 gm = 15 mL, PO, TID, PRN Titrate to 2-3 soft bowel movements a day, X 30 day, # 900 mL, 0 Refill(s), Pharmacy: [facility]/pharmacy #[id number] [facility] pantoprazole 40 mg oral enteric coated tablet 2018-06-05 22:21:0 0 Yes 40 mg = 1 tab, PO, Before Breakfast, # 3 0 tab, 0 Refill(s), Pharmacy: [facility]/pharmacy #[id number] [facility] tramadol hydrochloride 50 MG Oral Tablet 2018-06-05 16:57:00 Yes 50 mg = 1 tab, PO, Q8H, PRN Pain Score 7-10, X 7 day, # 20 tab, 0 Refill(s) [facility] Ferrlecit 2018-06-05 14:00:00 No Notes: (sodium ferric gluconate complex (elemental iron) 62.5 mg/5 ml INJ) "Limited stability. Use immediately after admixture" (Same as: Ferrlecit) MEDICATION WASTE Product Size: 62.5 mg Product Wasted: ___ mg Angeles Friedman Flagyl 2018-06-05 02:00:00 No Notes: (Same as: Flagyl) Take with food/ avoid alcohol [facility] Golytely 2018-06-04 19:47:00 No Notes: ([facility] e as: Nulytely) [facility] Bisacodyl 2018-06-04 19:47:00 No Notes: (Same As: Dulcolax, Correctol) (Do Not Crush) "Do Not Crush" [facility] Hydromorphone 2018-06-04 17:43:00 No Notes: (Same as: Dilaudid) [facility] Lactulose 667 MG/ML Oral Solution 2018-06-04 02:00:00 No Notes: (Same as:Chronulac) [facility] rifaximin 2018-06-04 02:00:00 No Notes: [facility] as: Xifaxan [facility] Lactulose 667 MG/ML Oral Solution 2018-06-03 14:00:00 No Notes: (Same as:Chronulac) [facility] pantoprazole 2018-06-03 12:30:00 No Notes: Tablet should not be chewed or crushed. (Same as: Protonix) [facility] lid[facility]ANES[facility] 2018-06-02 19:57:00 No Route: IV, Drug form: INJ, ONCE, Stop date: 06/02/18 14:57:00 CDT [facility] propofol (ANES) 2018-06-02 19:57:00 No Route: IV, Drug form: INJ, ONCE, Stop date: 06/02/18 14:57:00 CDT [facility] Sodium Chloride 0.9% IV 1,000 mL 2018-06-02 19:36:00 No 1,000 mL, Rate: 25 ml/hr, Infuse over: 40 hr, Route: IV, Dosing Weight 87.091 kg, Total Volume: 1,000, Start date: 06/02/18 14:36:00 CDT, Duration: 30 day, Stop date: 07/02/18 14:35:00 CDT, 2.08, m2 [facility] Rocephin 2018-06-02 06:00:00 No 1 gm, Route: IVPB, Drug form: PDR/INJ, [id number], Dosing Weight 87.091, kg, Start date: 06/02/18 1:00:00 CDT, Duration: 5 day, Stop date: 06/06/18 1:00:00 CDT, ABX Indication: Intra- abdominal Infection [facility] potassium chloride 2018-06-02 05:00:00 No Notes: Infuse at a rate of 10 mEq/hr. (Same as: KCL) [facility] tiffanie Potassium Chloride 2018-06-02 04:04:00 No 20 mEq, Route: IVPB, ONCE, Dosing Weight 87.091, kg, Start date: 06/01/18 23:04:00 CDT, Stop date: 06/01/18 23:04:00 CDT [facility] Ceftriaxone 2018-06-02 04:00:00 No Notes: (Same As: Rocephin). Use with 100 mL NS and infuse over 30 min MEDICATION WASTE Product Size: 1000 mg Product Wasted: ___ mg [facility] octreotide 1,250 microgram + Sodium Chloride 0.9% IV 248.75 mL 2018-06-02 03:26:00 No 248.75 mL, Rate: 10 ml/hr, Infuse over: 25 hr, Route: IV, Dosing Weight 87.091 kg, Total Volume: 250, Start date: 06/01/18 22:26:00 CDT, Duration: 30 day, Stop date: 07/01/18 22:25:00 CDT, 2.08, m2 [facility] Octreotide 2018-06-02 03:26:00 No Notes: (Same As: SandoSTATIN). Refrigerate. MEDICATION WASTE Product Size: 50 microgram Product Wasted: ___ microgram [facility] Flagyl 2018-06-02 02:00:00 No Notes: (Same as: Flagyl) Avoid alcohol. [facility] Tramadol 2018-06-02 01:13:00 No Notes: Not to exceed 400mg/day. (Same As: Ultram) [facility] Hydromorphone 2018-06-02 01:13:00 No Notes: Same as: Dilaudid [facility] Ondansetron 2018-06-02 01:12:00 No Notes: (Same as: Zofran) MEDICATION WASTE Product Size: 4 mg Product Wasted: ___ mg [facility] Melatonin 2018-06-02 01:12:00 No Notes: (Sa me as: Melatonin) [facility] Bisacodyl 2018-06-02 01:12:00 No Notes: (Same As: Dulcolax, Bisco-Lax) [facility] Dextrose 50% Syringe 2018-06-02 01:12:00 No 12.5 gm, 25 mL, Route: IVP, Drug Form: INJ, Dosing Weight 87.091, kg, PRN, PRN Blood Glucose Results, Start date: 06/01/18 20:12:00 CDT, Duration: 30 day, Stop date: 07/01/18 20:11:00 CDT [facility] Glucagon 2018-06-02 01:12:00 No 1 mg, Route: IM, Drug form: PDR/INJ, PRN, Dosing Weight 87.091, kg, PRN Blood Glucose Results, Start date: 06/01/18 20:12:00 CDT, Duration: 30 day, Stop date: 07/01/18 20:11:00 CDT [facility] Calcium Gluconate 2018-06-02 01:11:00 No Notes: [facility]ASTE[facility] 2018-06-02 01:11:00 No Notes: WASTE: F[facility]P - Sink; [facility] Potassium Chloride 2018-06-02 01:11:00 No Notes: (Same as: K-Dur 20) "Do Not Crush" Give with food and full glass of water For patients unable to swallow tablet, dissolve in one half glass of water. Allow about 2 minutes for the tablets to disintegrate. Stir before giving to prepare slurry and administer. Please exclude Patient s with feeding tube less than 14 [place] (Dobhoff, J-tube etc) and pediatric and patients. [facility] potassium phosphate-sodium phosphate 250 mg-280 mg-160 mg oral powder for reconstitution 2018-06-02 01:11:00 No Notes: (Same as: Phos-NaK) Each 1.5 gm pkt has 250mg phosphorous. Mix w/2.5oz water and stir. [facility] potassium phosphate 2018-06-02 01:11:00 No Notes: (Same as: K Phosphate.) Do not infuse phosphorous concurrently in the same line as TPN or IVF that contains calcium. For double lumen central lines, phosphorous may be infused in a separate lumen from TPN. 1 mMol phoshate has 1.47 mEq potassium Infuse over 4 hours [facility] sodium phosphate 2018-06-02 01:11:00 No Notes: Infuse over 4 hour. Do not infuse phosphorous concurrently in the same line as TPN or IVF that contains calcium. For double lumen central lines, phosphorous may be infused in a separate lumen from TPN. [facility] Magnesium Oxide 2018-06-02 01:11:00 No Notes: (Same as: Mag-Ox 400) Magnesium oxide [id number] elemental magnesium Dose=____mg magnesium oxide (___mg elemental magnesium) [facility] Ciprofloxacin 2018-06-02 01:09:00 No Notes: Do not refrigerate [facility] tramadol hydrochloride 50 MG Oral Tablet 2018-06-02 01:02:00 No 50 mg = 1 tab, PO, Q6H, PRN Pain, # 40 tab, 0 Refill(s) [facility] Folic Acid 1 MG Oral Tablet 2018-06-02 01:02:00 Yes 1 mg = 1 tab, PO, Daily, # 30 tab, 0 Refill(s) Juve Dos Santos spironolactone 50 mg oral tablet 2018-06-02 01:02:00 Yes 50 mg = 1 tab, PO, Daily, # 90 tab, 1 [facility]ill[facility]) [facility] F[facility] 40 MG Oral Tablet 2018-06-02 01:02:00 [...] No Notes: (Same as: Pneumovax 23) Refrigerate [facility] t[facility]anie influenza virus vaccine, inactivated 2018-06-02 00:50:04 No Notes: (Same as: Fluzone Quadrivalent, Fluarix Quadrivalent) For 3 years of age and older (0.5 mL IM) Shake well before use [facility] pantoprazole additive 80 mg + Sodium Chloride 0.9% IV 100 mL 2018-06-01 22:40:00 No Notes: For IV push reconstitute with 10 ml 0.9% sodium chloride and push over 2 minutes. (Same as: Protonix) [facility] Protonix 2018-06-01 22:40:00 No Notes: For IV push reconstitute with 10 ml 0.9% sodium chloride and push over 2 minutes. (Same as: Protonix) [facility] Sodium Chloride 0.9% (Bolus) IV 2018-06-01 21:42:00 No 1,000 mL, Infuse Over: 1 hr, Route: IV, ONCE, Priority: STAT, Dosing Weight 90.909 kg, Start date: 06/01/18 16:42:00 CDT, Stop date: 06/01/18 16:42:00 CDT [facility] Zofran 2018-06-01 21:41:00 No 4 mg, Route: IVP, Drug form: INJ, ONCE, Dosing Weight 90.909, kg, Priority: STAT, Start date: 06/01/18 16:41:00 CDT, Stop date: 06/01/18 16:41:00 CDT [facility] Morphine 2018-06-01 21:41:00 No 4 mg, Route: IVP, ONCE, Dosing Weight 90.909, kg, Priority: STAT, Start date: 06/01/18 16:41:00 CDT, Stop date: 06/01/18 16:41:00 CDT [facility] pantoprazole 2018-06-01 14:59:00 No Notes: For IV push reconstitute with 10 ml 0.9% sodium chloride and push over 2 minutes. (Same as: Protonix) [facility] Saline Flush 0.9% 2018-06-01 14:59:00 No Notes: (Same as: BD Posiflush) [facility] Sodium Chloride 0.9% (Bolus) IV 2018-06-01 14:59:00 No 1,000 mL, 1000 ml/hr, Infuse Over: 1 hr, Route: IV, 1,000, Drug form: INJ, ONCE, Priority: STAT, Dosing Weight 90.909 kg, Start date: 06/01/18 9:59:00 CDT, Stop date: 06/01/18 9:59:00 CDT [facility] pantoprazole 2018-05-31 18:30:00 Yes Notes: For IV push reconstitute with 10 ml 0.9% sodium chloride and push over 2 minutes. (Same as: Protonix) [facility] Saline Flush 0.9% 2018-05-31 18:30:00 No Notes: (Same as: BD Posiflush) [facility] Saline Flush 0.9% 2018-04-18 23:16:00 No Notes: (Same as: BD Posiflush) [facility] Fentanyl 2017-09-16 19:34:00 No Notes: (Same as: Sublimaze) Preservative free. [facility] Saline Flush 0.9% 2017-09-16 19:29:00 No 10 mL, Route: IVP, Drug Form: INJ, Dosing Weight 77, kg, PRN, PRN Line Flush, Start date: 09/16/17 14:29:00 CDT, Duration: 30 day, Stop date: 10/16/17 14:28:00 CDT [facility] Fentanyl 2017-09-16 15:34:00 No 25 microgram, Route: IV, ONCE, Dosing Weight 74.091, kg, Start date: 09/16/17 10:34:00 CDT, Stop date: 09/16/17 10:34:00 CDT [facility] Phenergan 2017-09-16 07:39:00 No 12.5 mg, Route: IVPB, ONCE, Dosing Weight 81.818, kg, Priority: STAT, Start date: 09/16/17 2:39:00 CDT, Stop date: 09/16/17 2:39:00 CDT [facility] Morphine 2017-09-16 07:39:00 No 4 mg, Route: IVP, ONCE, Dosing Weight 81.818, kg, Priority: STAT, Start date: 09/16/17 2:39:00 CDT, Stop date: 09/16/17 2:39:00 CDT [facility] Saline Flush 0.9% 2017-09-16 07:12:00 No Notes: (Same as: BD Posiflush) [facility] GI cocktail 2017-09-16 07:02:00 No Notes: G.I. Cocktail = antacid with simethicone 22.5 mL - lidocaine viscous 7.5 mL [facility] Lactulose Lactulose 2019-08-29 00:00:00 No 30 Three Times A Day [facility] Levofloxacin (Levaquin) 500 Mg TABLET Levofloxacin (Levaquin) 50 0 Mg TABLET 2019-08-29 00:00:00 No 500 Daily [facility] Tizanidine Hcl Tizanidine Hcl 2019-08-29 00:00:00 No 4 Twice A Day as needed for Muscle Cramps [facility] Furosemide (Lasix) 40 Mg TABLET Furosemide (Lasix) 40 Mg TABLET 2019-08-16 00:00:00 No 40 Daily [facility] Lactulose Lactulose 2019-08-16 00:00:00 No 30 Three Times A Day [facility] Spironolactone Spironolactone 2019-08-16 00:00:00 No 50 Daily [facility] Acetaminophen With Codeine (Tylenol With Codeine #3 Ta blet) 1 Each TABLET Acetaminophen With Codeine (Tylenol With Codeine #3 Tablet) 1 Each TABLET 2019-08-14 00:00:00 No 300 T9ds-1CM as needed f or Pain [facility] Immunizations Ordered Immunization Name Filled Immunization Name Date Status Comments Source Engerix-B IM 20 MCG/ML [id number] 2019-04-09 10:34: 00 Completed [facility] Vital Signs Vital Name Observation Time Observation Value Comments Source Body Temperature 2019-10-08 16:34:00 98.3 [degF] [facility] BMI (Body Mass Index) 2019-10-06 00:14:00 32.9 kg/m2 [facility] Weight 2019-10-01 07:39:00 223 [lb_av] [facility] Body Temperature 2019-09-02 15:44:00 99.4 [degF] [facility] Weight 2019-09-02 00:16:00 223.04 [lb_av] [facility] BMI (Body Mass Index) 2019-09-02 00:16:00 32.9 kg/m2 [facility] Body Temperature 2019-08-16 22:21:00 98.2 [degF] [facility] BMI (Body Mass Index) 2019-08-14 20:11:00 30.7 kg/m2 [facility] Weight 2019-08-14 19:00:00 207.56 [lb_av] [facility] temperature site 2019-04-09 10:23:37 oral [facility] temperature E&M 2019-04-09 10:23:37 97.9 [degF] [facility] blood pressure, diastolic 2019-03-28 08:32:24 107 mm[Hg] [facility] blood pressure, systolic 2019-03-28 08:32:24 151 mm[Hg] [facility] oxygen saturation, oximetry 2019-03-28 08:32:24 99 % [facility] respiratory rate E&M 2019-03-28 08:32:24 18 /min [facility] pulse rate E&M 2019-03-28 08:32:24 115 /min [facility] temperature E&M 2019-03-28 08:32:24 99.7 [degF] [facility] 2019-03-28 08:32:24 195 [lb_av] [facility] [employer] weight in kilograms E&M 2019-03-28 08:32:24 88.64 kg [facility] height in centimeters E&M 2019-03-28 08:32:24 175.26 cm [facility] temperature site 2019-03-28 08:32:24 oral [facility] blood pressure, diastolic 2019-02-27 08:37:46 88 mm[Hg] [facility] blood pressure, systolic 2019-02-27 08:37:46 144 mm[Hg] [facility] oxygen saturation, oximetry 2019-02-27 08:37:46 99 % [facility] respiratory rate E&M 2019-02-27 08:37:46 16 /min [facility] pulse rate E&M 2019-02-27 08:37:46 105 /min [facility] temperature site 2019-02-27 08:37:46 oral Lega [facility] temperature E&M 2019-02-27 08:37:46 99.5 [degF] [facility] weight E&M 2019-02-27 08:37:46 202.20 [lb_av] [facility] weight in kilograms E&M 2019-02-27 08:37:46 91.91 kg [facility] height in centimeters E&M 2019-02-27 08:37:46 175.26 cm [facility] Systolic (mm Hg) 2019-02-26 17:26:00 [facility] Diastolic (mm Hg) 2019-02-26 17:26:00 [facility] Heart Rate 2019-02-26 17:26:00 [facility] Respitory Rate 2019-02-26 17:26:00 [facility] Temperature Oral (F) 2019-02-26 17:26:00 97.9 F [facility] Weight 2019-02-26 17:26:00 [facility] Temperature Oral (F) 2018-08-25 01:56:00 98.2 F [facility] Systolic (mm Hg) 2018-08-25 01:56:00 [facility] [place] Diastolic (mm Hg) 2018-08-25 01:56:00 [facility] [place] Respitory Rate 2018-08-25 01:56:00 [facility] [place] Heart Rate 2018-08-25 01:56:00 [facility] Respitory Rate 2018-08-04 09:30:00 [facility] [place] Temperature Oral (F) 2018-08-04 09:30:00 97.9 F [facility] Systolic (mm Hg) 2018-08-04 09:30:00 [facility] [place] Diastolic (mm Hg) 2018-08-04 09:30:00 [facility] [place] BMI Calculated 2018-08-04 05:02:00 [facility] [place] Respitory Rate 2018-08-04 05:02:00 [facility] Height 2018-08-04 05:02:00 175.26 cm [facility] Weight 2018-08-04 05:02:00 [facility] Temperature Oral (F) 2018-08-04 05:02:00 98.1 F [facility] Systolic (mm Hg) 2018-08-04 05:02:00 Ton [facility] [place] Diastolic (mm Hg) 2018-08-04 05:02:00 [facility] Heart Rate 2018-08-04 05:02:00 [facility] Systolic (mm Hg) 2018-06-05 21:30:00 [facility] [place] Diastolic (mm Hg) 2018-06-05 21:30:00 [facility] [place] Respitory Rate 2018-06-05 21:30:00 [facility] Systolic (mm Hg) 2018-06-05 21:15:00 Ton [facility] [place] Diastolic (mm Hg) 2018-06-05 21:15:00 [facility] [place] Respitory Rate 2018-06-05 21:15:00 [facility] Systolic (mm Hg) 2018-06-05 21:00:00 [facility] [place] Diastolic (mm Hg) 2018-06-05 21:00:00 [facility] Respitory Rate 2018-06-05 21:00:00 [facility] [place] Heart Rate 2018-06-05 16:11:00 [facility] Temperature Oral (F) 2018-06-05 16:11:00 98.1 F [facility] Temperature Oral (F) 2018-06-05 12:11:00 98 F [facility] Heart Rate 2018-06-05 12:11:00 [facility] Temperature Oral (F) 2018-06-05 08:10:00 98.1 F [facility] Heart Rate 2018-06-05 08:10:00 [facility] BMI Calculated 2018-06-02 00:42:00 [facility] Weight 2018-06-02 00:42:00 [facility] Height 2018-06-02 00:42:00 175.26 cm [facility] Weight 2018-06-01 14:58:00 [facility] Weight 2018-05-31 18:08:00 [facility] Height 2018-05-31 18:08:00 175.26 cm [facility] BMI Calculated 2018-05-31 18:08:00 [facility] [place] Systolic (mm Hg) 2018-05-31 18:08:00 [facility] [place] Diastolic (mm Hg) 2018-05-31 18:08:00 [facility] [place] Respitory Rate 2018-05-31 18:08:00 [facility] Heart Rate 2018-05-31 18:08:00 [facility] Temperature Oral (F) 2018-05-31 18:08:00 98.2 F [facility] Systolic (mm Hg) 2018-04-18 23:05:00 [facility] [place] Diastolic (mm Hg) 2018-04-18 23:05:00 [facility] [place] Heart Rate 2018-04-18 23:05:00 [facility] Respitory Rate 2018-04-18 23:05:00 [facility] Temperature Oral (F) 2018-04-18 23:05:00 98.5 F [facility] Height 2018-04-18 23:05:00 175.26 cm [facility] BMI Calculated 2018-04-18 23:05:00 [facility] Weight 2018-04-18 23:05:00 [facility] Weight 2017-09-16 19:15:00 [facility] BMI Calculated 2017-09-16 19:15:00 [facility] Height 2017-09-16 19:15:00 175.26 cm [facility] Temperature Oral (F) 2017-09-16 19:15:00 99.1 F [facility] Respitory Rate 2017-09-16 19:15:00 [facility] Heart Rate 2017-09-16 19:15:00 [facility] Systolic (mm Hg) 2017-09-16 19:15:00 [facility] [place] Diastolic (mm Hg) 2017-09-16 19:15:00 [facility] [place] Temperature Oral (F) 2017-09-16 16:04:00 98.9 F [facility] Respitory Rate 2017-09-16 16:04:00 [facility] [place] Systolic (mm Hg) 2017-09-16 16:04:00 [facility] [place] Diastolic (mm Hg) 2017-09-16 16:04:00 [facility] Systolic (mm Hg) 2017-09-16 15:01:00 Ton [facility] [place] Diastolic (mm Hg) 2017-09-16 15:01:00 [facility] [place] Respitory Rate 2017-09-16 15:01:00 [facility] Height 2017-09-16 14:07:00 175.26 cm [facility] BMI Calculated 2017-09-16 14:07:00 [facility] [place] Weight 2017-09-16 14:07:00 [facility] Systolic (mm Hg) 2017-09-16 14:03:00 Ton [facility] Diastolic (mm Hg) 2017-09-16 14:03:00 [facility] Respitory Rate 2017-09-16 14:03:00 [facility] Temperature Oral (F) 2017-09-16 13:01:00 99.0 F [facility] Heart Rate 2017-09-16 11:10:00 [facility] Heart Rate 2017-09-16 09:30:00 [facility] Weight 2017-09-16 06:48:00 [facility] Temperature Oral (F) 2017-09-16 06:48:00 99 F [facility] Heart Rate 2017-09-16 06:48:00 [facility] Procedures Procedure Date / Time Performed Performing Clinician [facility] e US Abdomen limited 2019-10-07 00:00:00 [facility] Computed tomography of abdomen and pelvis with contrast 00:00:00 [facility] US guided paracentesis 2019-10-02 00:00:00 [facility] Computed tomography of abdomen and pelvis with contrast 00:00:00 [facility] US Abdomen limited 2019-09-02 00:00:00 [facility] Computed tomography of chest without contrast 2019-09-01 00:00:0 0 [facility] Computed tomography of abdomen and pelvis with contrast 00:00:00 [facility] TRANSFUSE NONAUT RED BLOOD CELLS IN CENTRAL VEIN, PERC 2019-08-12 6 00:00:00 [facility] US Abdomen limited 2019-08-26 00:00:00 [facility] Ultrasound, renal 2019-08-26 00:00:00 [facility] X-ray of chest, two views 2019-08-25 00:00:00 I [facility] Computed tomography of abdomen and pelvis with contrast 00:00:00 [facility] TRANSFUSE NONAUT RED BLOOD CELLS IN PERIPH VEIN, PERC 2019-08-16 00:00:00 [facility] TRANSFUSE NONAUT PLATELETS IN PERIPH VEIN, PERC 2019-08-15 00:00 :00 [facility] Computed tomography of abdomen and pelvis with contrast 00:00:00 [facility] Computed tomography of brain without radiopaque contrast 2019-08 00:00:00 [facility] First Vx - Ix admin for Medicare patients 2019-04-09 10:33:15 Iv sharmaine [facility] Engerix-B Injection Suspension 20 MCG/ML 2019-04-09 10:33:15 [facility] - Print Consent/Declination Forms 2019-03-14 8 10:23:04 Ana Laura, [facility] Venipuncture 2019-03-28 09:36:19 Ana Laura [facility] Exploratory laparotomy [facility] Plan of Care Planned Activity Planned Date Details Comments Source Instructions Abdominal Pain - Adult [facility] Instructions GI Bleeding [facility] Encounters Start Date/Time End Date/Time Encounter Type Admission Type [facility] Care Department Encounter ID Source 2019-10-01 12:38:00 2019-10-08 16:45:00 Discharged Inpatient 1 RICO ELIAS [facility] [id number] [facility] 2019-08-23 16:10:00 2019-09-02 19:01:00 Discharged Inpatient 1 DAVI KELLY [facility] [id number] [facility] 2019-08-15 11:21:00 2019-08-16 23:20:00 Discharged Inpatient 1 GOLDEN WANG [facility] [id number] [facility] 2019-06-11 00:00:00 2019-06-11 00:00:00 Office Visit Jonelle Heard Jacklyn Zuniga Flores, Westley Avendano [facility] Encount er/[id number] [facility] 2019-04-17 00:00:00 2019-04-17 00:00:00 Office Visit Mir Mendoza [facility] Encounter/[id number] [facility] 2019-04-17 00:00:00 2019-04-17 00:00:00 Office Visit Mir Putnam [facility], Vane Munguia [facility] Encount er/[id number] [facility] 2019-04-16 00:00:00 2019-04-16 00:00:00 Office Visit Status, Fax [facility] Encounter/[id number] [facility] 2019-04-16 00:00:00 2019-04-16 00:00:00 Office Visit Status, Fax [facility] Encounter/[id number] [facility] 2019-04-16 00:00:00 2019-04-16 00:00:00 Office Visit Status, Fax [facility] Encounter/[id number] [facility] 2019-04-16 00:00:00 2019-04-16 00:00:00 Office Visit Status, Fax [facility] Encounter/[id number] [facility] 2019-04-16 00:00:00 2019-04-16 00:00:00 Office Visit Status, Fax [facility] Encounter/[id number] [facility] 2019-04-09 00:00:00 2019-04-09 00:00:00 Office Visit Vane Du [facility] Encounter/[id number] [facility] 2019-04-09 00:00:00 2019-04-09 00:00:00 Office Visit I Vane toth Adriana [facility] Encounter/[id number] [facility] 2019-04-02 00:00:00 2019-04-02 00:00:00 Office Visit iMr Putnam, Jonelle Porter, Sisi Pagan, Jayleen Lal, Jo Bosch [facility] Services Contact Center Encounter/[id number] [facility] 2019-04-02 00:00:00 2019-04-02 00:00:00 Office Visit G Sisi ross Deborath [facility]/[id number] [facility] 2019-03-29 00:00:00 2019-03-29 00:00:00 Office Visit Status, Fax [facility] Services Encounter/[id number] [facility] 2019-03-29 00:00:00 2019-03-29 00:00:00 Office Visit Status, Fax [facility] Services Encounter/[id number] [facility] 2019-03-29 00:00:00 2019-03-29 00:00:00 Office Visit Status, Fax [facility] Services Encounter/[id number] [facility] 2019-03-29 00:00:00 2019-03-29 00:00:00 Office Visit I Vane toth Shakira [facility] Encounter/[id number] [facility] 2019-03-29 00:00:00 2019-03-29 00:00:00 Office Visit Vane Du [facility] Encounter/[id number] [facility] 2019-03-28 00:00:00 2019-03-28 00:00:00 Office Visit I Vane toth Iris Granados, Deborath [facility] Encounter/[id number] [facility] 2019-03-28 00:00:2019-03-28 00:00:00 Office Visit Vane Du [facility] Encounter/[id number] [facility] 2019-03-28 00:00:00 2019-03-28 00:00:00 Office Visit I navneet Mir Cunningham [facility] Encounter/[id number] [facility] 2019-02-27 00:00:00 2019-02-27 00:00:00 Office Visit Status, Fax [facility] Encounter/[id number] [facility] 2019-02-27 00:00:00 2019-02-27 00:00:00 Office Visit Status, Fax [facility] Services Encounter/[id number] [facility] 2019-02-27 00:00:00 2019-02-27 00:00:00 Office Visit Status, Fax Critical access hospital Services Encounter/[id number] [facility] 2019-02-27 00:00:00 2019-02-27 00:00:00 Office Visit V Jonelle anderson, Leti Phillips, Keli Stephenson Critical access hospital Services Contact Center Encounter/[id number] [facility] 2019-02-27 00:00:00 2019-02-27 00:00:00 Office Visit Vane Du [facility] Encounter/[id number] [facility] 2019-02-27 00:00:00 2019-02-27 00:00:00 Office Visit I ishabeboVane Shakira Granados, Deborath [facility] Encounter/[id number] [facility] 2019-02-26 11:19:29 2019-02-26 14:42:00 Outpatient Mary Banks [facility] [id number] 2019-02-26 11:19:00 2019-02-26 11:19:00 Emergency E MHSE MHSE 7506 [facility] 2018-08-24 20:55:56 2018-08-25 00:12:00 Outpatient Mary Banks MHSE MHSE [id number] 2018-08-24 20:55:00 2018-08-24 20:55:00 Emergency E MHSE MHSE [id number] [facility] 2018-08-03 23:59:28 2018-08-04 05:44:00 Outpatient Mary Banks ep MHSE MHSE [id number] 2018-08-03 23:59:00 2018-08-03 23:59:00 Emergency E MHSE MHSE [id number] [facility] 2018-06-01 09:37:00 2018-06-05 18:35:00 Outpatient Nabeel Hough i MHPL MHPL [id number] 2018-05-31 12:19:00 2018-05-31 19:22:00 Outpatient Mary Banks ep MHSE MHSE [id number] 2018-04-18 16:46:00 2018-04-18 20:32:00 Outpatient Iheme, Varinder U MHSE MHSE [id number] 2018-04-18 16:46:00 2018-04-18 20:32:00 Outpatient Iheme, Varinder U MHSE MHSE [id number] 2018-04-18 16:46:00 2018-04-18 16:46:00 Emergency E MHSE MHSE 7501 [facility] 2017-09-16 13:46:00 2017-09-16 15:34:00 Outpatient F laneyyvonnereva Pauline Benitez MHPL MHPL [id number] 2017-09-16 01:41:00 2017-09-16 12:59:00 Outpatient Zandra Justice MHSE MHSE [id number] 2017-06-15 15:53:00 2017-06-20 17:14:00 Discharged Inpatient ER [facility] [id number] [facility] Results Test Description Test Time Test Comments Results Result Comments Source ABDOMEN 2 VIEW 2019-10-07 09:33:00 [facility] [address] [place] [address] Patient Name: JOCELIN CORREA MR #: [id number] : 1970 Age/Sex: 49/M Req #: [id number] Adm Physician: ELIAS GÓMEZ MD Ordered by: TYREL MURILLO MD Report #: [id number] Location: MED/SURG Room/Bed: [facility] Procedure: [id number] DX/ABDOMEN 2 VIEW Exam Date: 10/07/19 Exam [...] TYREL MURILLO MD ABDOMEN LIMITED 2019-10-07 09:09:00 [place] [address] Patient Name: JOCELIN CORREA MR #: [id number] : 1970 Age/Sex: 49/M Req #: [id number] Adm Physician: ELIAS GÓMEZ MD Ordered by: ELIAS GÓMEZ MD Report #: [id number] Location: MED/SURG Room/Bed: [facility] Procedure: [id number] US/US ABDOMEN LIMITED Exam Date: 10/07/19 Exam [...] Count (test code = 6690-2) 2.50 4.8-10.8 [facility] (number/volume)2019-10-07 04:50:00* Test Item Value Reference Range Interpretation Comments Red Blood Count (test code = 789-8) 3.08 4.3-5.7 [facility] measurement (moles/volume)2019-10-07 04:50:00* Test Item Value Reference Range Interpretation Comments Hemoglobin (test code = 42397-5) 9.0 14.0-18.0 [facility] hematocrit (volume fraction)2019-10-07 04:50:00* Test Item Value Reference Range Interpretation Comments Hematocrit (test code = 4544-3) 28.5 38.2-49.6 [facility] eryth[facility] mean corpuscular [id number] 04:50:00* Test Item Value Reference Range Interpretation Comments Mean Corpuscular Volume (test code = 787-2) 92.5 81-99 [facility] mean corpuscular hemoglobin (mass per erythrocyte)2019-10-07 04:50:00* Test Item Value Reference Range Interpretation Comments Mean Corpuscular Hemoglobin (test code = 785-6) 29.2 28-32 [facility] mean corpuscular hemoglobin concentration measurement (mass/volume)2019-10-07 04:50:00* Test Item Value Reference Range Interpretation Comments Mean Corpuscular Hemoglobin Concent (test code = 786-4) 31.6 31-35 [facility] BakRx-[id number] 04:50:00* Test Item Value Reference Range Interpretation Comments Red Cell Distribution Width (test code = 70205-2) 28.4 11.7 -14.4 [facility] platelet count (count/volume)2019-10-07 04:50:00* Test Item Value Reference Range Interpretation Comments Platelet Count (test code = 777-3) 47 140-360 Results repeated and called to dianelys aguilera rn at 0519 on 10/07/19 by Rupert Lazaro. Read back and verified.This test has been rerun and double checked fo r accuracy.[facility] segmented neutrophil count as percentage of total [id number] 04:50:00* Test Item Value Reference Range Interpretation Comments Neutrophils (%) (Auto) (test code = 64897-0) 48.0 38.7-80.0 [facility] lymphocyte count as percentage ot total [id number] 04:50:00* Test Item Value Reference Range Interpretation Comments Lymphocytes (%) (Auto) (test code = 736-9) 22.8 18.0-39.1 [facility] monocyte count as percentage of total ziswqplbtt9958-36-19 04:50:00* Test Item Value Reference Range Interpretation Comments Monocytes (%) (Auto) (test code = 5905-5) 16.0 4.4-11.3 [facility] eosinophil count as percentage of total [id number] 04:50:00* Test Item Value Reference Range Interpretation Comments Eosinophils (%) (Auto) (test code = 713-8) 12.4 0.0-6.0 [facility] basophil count as percentage of total fkthiyprjb5165-89-36 04:50:00* Test Item Value Reference Range Interpretation Comments Basophils (%) (Auto) (test code = 706-2) 0.4 0.0-1.0 [facility] procedure less than one hour gllziyqv6800-29-87 04:50:00* Test Item Value Reference Range Interpretation Comments IM GRANULOCYTES % (test code = IM GRANULOCYTES %) 0.4 0.0- 1.0 [facility] neutrophil count 2019-10-07 04:50:00* Test Item Value Reference Range Interpretation Comments Neutrophils # (Auto) (test code = 751-8) 1.2 2.1-6.9 [facility] lymphocytes count (number/volume) 2019-10-07 04:50:00* Test Item Value Reference Range Interpretation Comments Lymphocytes # (Auto) (test code = 71288-5) 0.6 1.0-3.2 [facility] monocytes automated count (number/volume)2019-10-07 04:50:00* Test Item Value Reference Range Interpretation Comments Monocytes # (Auto) (test code = 742-7) 0.4 0.2-0.8 [facility] eosinophil count 2019-10-07 04:50:00* Test Item Value Reference Range Interpretation Comments Eosinophils # (Auto) (test code = 711-2) 0.3 0.0-0.4 [facility] blood basophil count (count/volume)2019-10-07 04:50:00* Test Item Value Reference Range Interpretation Comments Basophils # (Auto) (test code = 704-7) 0.0 0.0-0.1 [facility] Brook[facility]or[facility] procedure less than one hour [id number] 04:50:00* Test Item Value Reference Range Interpretation Comments Absolute Immature Granulocyte (auto ([place] t code = Absolute Immature Granulocyte (auto) 0.01 0-0.1 [facility] sodium [facility] (moles/volume)2019-10-07 04:50:00* Test Item Value Reference Range Interpretation Comments Sodium Level (test code = 2951-2) 134 136-145 [facility] potassium measurement (moles/volume)2019-10-07 04:50:00* Test Item Value Reference Range Interpretation Comments Potassium Level (test code = 2823-3) 3.4 3.5-5.1 [facility] chloride measurement (moles/volume)2019-10-07 04:50:00* Test Item Value Reference Range Interpretation Comments Chloride Level (test code = 2075-0) 108 98-107 [facility] carbon dioxide, total measurement (moles/volume)2019-10-07 04:50:00* Test Item Value Reference Range Interpretation Comments Carbon Dioxide Level (test code = 2028-9) 22 22-29 [facility] anion [id number] 04:50:00* Test Item Value Reference Range Interpretation Comments Anion Gap (test code = 72820-7) 7.4 8-16 [facility] urea nitrogen measurement (mass/volume)2019-10-07 04:50:00* Test Item Value Reference Range Interpretation Comments Blood Urea Nitrogen (test code = 3094-0) < 5 7-26 [facility] creatinine measurement (mass/volume)2019-10-07 04:50:00* Test Item Value Reference Range Interpretation Comments Creatinine (test code = 2160-0) 0.77 0.72-1.25 [facility] urea nitrogen/creatinine mass [id number] 04:50:00* Test Item Value Reference Range Interpretation Comments BUN/Creatinine Ratio (test code = 3097-3) 6 6-25 [facility] glomerular filtration rate (GFR) sraraaiwamufn7896-40-71 04:50:00* Test Item Value Reference Range Interpretation Comments Estimat Glomerular Filtration Rate (test code = 578459285) > 60 >60 Ranges were taken from the National Kidney Disease Education Program and the Lori [facility] literature.Reference ranges:60 or greater: Eqayal70-44 ( for 3 consecutive months): Chronic kidney disease 15 or less: Kidney failureAdventHealth Rollins BrookGlucose zhopscikabe4126-50-70 04:50:00* Test Item Value Reference Range Interpretation Comments Glucose Level (test code = EOU4390) 109 74-118 [facility] calcium measurement (mass/volume)2019-10-07 04:50:00* Test Item Value Reference Range Interpretation Comments Calcium Level (test code = 43062-9) 7.2 8.4-10.2 [facility] or plasma total bilirubin measurement (mass/volume)2019-10-07 04:50:00* Test Item Value Reference Range Interpretation Comments Total Bilirubin (test code = 1975-2) 1.5 0.2-1.2 [facility] BrookFluoroscopic procedure less than one hour nulxovhl5336-19-23 04:50:00* Test Item Value Reference Range Interpretation Comments Aspartate Amino Transf (AST/SGOT) (test code = Aspartate Amino Transf (AST/SGOT)) 27 5-34 [facility] Hospitalerum or plasma alanine aminotransferase measurement (enzymatic activity/volume)2019-10-07 04:50:00* Test Item Value Reference Range Interpretation Comments Alanine Aminotransferase (ALT/SGPT) (test code = 1742-6) 9 0-55 [facility] or plasma protein measurement (mass/volume)2019-10-07 04:50:00* Test Item Value Reference Range Interpretation Comments Total Protein (test code = 2885-2) 6.7 6.5-8.1 [facility] Hospitaler[facility] or plasma albumin measurement (mass/volume)2019-10-07 04:50:00* Test Item Value Reference Range Interpretation Comments Albumin (test code = 1751-7) 2.0 3.5-5.0 [facility] BrookPlasma globulin measurement (mass/volume) 2019-10-07 04:50:00* Test Item Value Reference Range Interpretation Comments Globulin (test code = 72974-5) 4.7 2.3-3.5 [facility] plasma albumin/globulin mass esukw7100-33-95 04:50:00* Test Item Value Reference Range Interpretation Comments Albumin/Globulin Ratio (test code = 1759-0) 0.4 0.8-2.0 [facility] Hospitaler[facility] or plasma alkaline phosphatase measurement (enzymatic activity/volume)2019-10-07 04:50:00* Test Item Value Reference Range Interpretation Comments Alkaline Phosphatase (test code = 6768-6) 47 40-150 [facility] BrookCT ABDOMEN/PELVIS K6306-00-45 00:51:00 [facility] [address] [address] Patient Name: JOCELIN CORREA MR #: [id number] : 1970 Age/Sex: 49/M Req #: [id number] Adm Physician: ELIAS GÓMEZ MD Ordered by: AMARA GUTHRIE MD Re port #: [id number] Location: MED/SURG Room/ Bed: [facility] Procedure: [id number] CT/CT ABDOMEN /PELVIS W Exam Date: 10/06/19 [...] Interpretation Comments Magnesium Level (test code = 00512-8) 1.3 1.3-2.1 [facility] 2 KBJN2600-62-04 08:26:00 [facility] [address] [address] Patient Name: JOCELIN CORREA MR #: [id number] : 1970 Age/Sex: 49/M Req #: [id number] Adm Physician: ELIAS GÓMEZ MD Ordered by: TYREL MURILLO MD Report #: [id number] Location: MED/SURG R oom/Bed: 106 Procedure: [id number] DX/ABDOME N 2 VIEW Exam Date: 10/04/19 [...] Interpretation Comments Platelet Estimate (test code = 69326-2) MARKEDLY DECREASED [facility] BrookPlatelet mjhxlxmnva3322-62-45 05:10:00* Test Item Value Reference Range Interpretation Comments Platelet Morphology Comment (test code = 45886-2) NORMAL [facility] BrookRBC jdnvobsact6648-67-00 05:10:00* Test Item Value Reference Range Interpretation Comments Red Cell Morphology Comment (test code = 6742-1) NORMAL [facility] BrookABDOMEN 2 BVWH7739-01-20 08:45:00 [facility] [address] [address] Patient Name: JOCELIN CORREA MR #: [id number] : 1970 Age/Sex: 49/M Req #: [id number] Adm Physician: ELIAS GÓMEZ MD Ordered by: TYREL MURILLO MD Report #: [id number] Location: MED/SURG R oom/Bed: 106-1 Procedure: [id number] DX/ABDOME N 2 VIEW Exam Date: 10/03/19 [...] Automated reticulocyte count as percentage of total pymmskghnxsc8464-97-42 05:10:00* Test Item Value Reference Range Interpretation Comments Percent Reticulocyte Count (test code = 59401-7) 2.4 0.8-2 .2 [facility] BrookProthrombin time (PT) in platelet poor plasma by coagulation nknbp2757-01-23 05:10:00* Test Item Value Reference Range Interpretation Comments Prothrombin Time (test code = 5902-2) 18.0 11.9-14.5 [facility] BrookINR in Platelet poor plasma by Coagulation rioiq8630-75-52 05:10:00* Test Item Value Reference Range Interpretation Comments Prothromb Time International Ratio (test code = 6301-6) 1.40 Oral Anticoagulant Therapy INR Values:1. Low Intensity Therapy 1.5 - 2.02 . Moderate Intensity Therapy 2.0 - 3.03. High Intensity Therapy(1) 2.5 - 3. 54. High Intensity Therapy(2) 3.0 - 4.05. Panic Value INR > 5.0 [facility]er[facility] or plasma iron measurement (mass/volume)2019-10-03 05:10:00* Test Item Value Reference Range Interpretation Comments Iron Level (test code = 2498-4) 100 65-175 [facility]er[facility] or plasma iron binding capacity measurement (mass/volume)2019-10-03 05:10:00* Test Item Value Reference Range Interpretation Comments Total Iron Binding Capacity (test code = 2500-7) 237 261-4 78 [facility]er[facility] or plasma iron saturation measurement (mass fraction)2019-10-03 05:10:00* Test Item Value Reference Range Interpretation Comments Percent Iron Saturation (test code = 2502-3) 42 15-50 [facility]er[facility] or plasma transferrin measurement (mass/volume)2019-10-03 05:10:00* Test Item Value Reference Range Interpretation Comments Transferrin (test code = 3034-6) 169 174-364 [facility]er[facility] or plasma ferritin measurement (mass/volume)2019-10-03 05:10:00* Test Item Value Reference Range Interpretation Comments Ferritin (test code = 2276-4) 200.56 21.81-274.66 [facility] BrookAmmonia Slh-eRld5586-16-23 05:10:00* Test Item Value Reference Range Interpretation Comments Ammonia (test code = 03234-6) 121 31-123 [facility] BrookBlood cobalamin (vitamin B12) measurement (mass/volume)2019-10-03 05:10:00* Test Item Value Reference Range Interpretation Comments Vitamin B12 Level (test code = 73040-5) 781 213816 [facility]er[facility] or plasma folate measurement (mass/volume)2019-10-03 05:10:00* Test Item Value Reference Range Interpretation Comments Folate (test code = 2284-8) 14.7 >3.0 A serum folate concentration of less than 3.1 ng/mL isconsidered to represent cl inical deficiency.Performed at: [facility] [address] [id number] Director: Lopez Morgan MD, Phone: [phone] Rollins BrookUS GUIDED NPBQKOQRRZSG2128-24-39 11:02:00 [facility] [address] [place] [address] Patient Name: JOCELIN CORREA MR #: [id number] : 1970 Age/Sex: 49/M Req #: [id number] Adm Physician: ELIAS GÓMEZ MD Ordered by: ELIAS GÓMEZ MD Report #: [id number] Location: MED/SURG Room/Bed: [facility] Procedure: [id number] US/US GUIDED PARACENTESIS Exam Date: 10/02/19 Exam [...] GÓMEZ MD Specimen source identification of body brliz6618-34-68 10:40:00* Test Item Value Reference Range Interpretation Comments Body Fluid Type (test code = 33283-7) PERITONEAL [facility] BrookEvaluation of color of body fluid 2019-10-02 10:40:00* Test Item Value Reference Range Interpretation Comments Body Fluid Color (test code = 6824-7) RED [facility] BrookDetermination of appearance of body fluid 2019-10-02 10:40:00* Test Item Value Reference Range Interpretation Comments Body Fluid Appearance (test code = 9335-1) SL.CLOUDY [facility] body fluid leukocytes count (number/volume)2019-10-02 10:40:00* Test Item Value Reference Range Interpretation Comments Body Fluid WBC (test code = 6743-9) 220 [facility] body fluid erythrocytes count (number/volume)2019-10-02 10:40:00* Test Item Value Reference Range Interpretation Comments Body Fluid RBC (test code = 6741-3) [address] [facility] body fluid neutrophils/100 clxxnvgzln3275-12-32 10:40:00* Test Item Value Reference Range Interpretation Comments Body Fluid Neutrophils (test code = 61691-3) 20 [facility] BrookBody fluid lymphocyte xqzfp4237-57-79 10:40:00* Test Item Value Reference Range Interpretation Comments Body Fluid Lymphocytes (test code = 36788334) 34 [facility] fluid monocyte flacv4719-98-48 10:40:00* Test Item Value Reference Range Interpretation Comments Body Fluid Monocytes (test code = 79400-9) 43 [facility] eosinophil percentage 2019-10-02 10:40:00* Test Item Value Reference Range Interpretation Comments Body Fluid Eosinophils (test code = 20309-5) 2 [facility] other cells manual count 2019-10-02 10:40:00* Test Item Value Reference Range Interpretation Comments Body Fluid Other Cells (test code = 594689351) 1 [facility] BrookTotal cell heldv9892-83-83 10:40:00* Test Item Value Reference Range Interpretation Comments Body Fluid Total Cells Counted (test code = 89804-9) 100 [facility] BrookABDOMEN 2 QRNU8752-83-36 08:24:00 [facility] [address] [address] Patient Name: JOCELIN CORREA MR #: [id number] : 1970 Age/Sex: 49/M Req #: [id number] Adm Physician: ELIAS GÓMEZ MD Ordered by: TYREL MURILLO MD Report #: [id number] Location: MED/SURG R oom/Bed: 106 Procedure: [id number] DX/ABDOME N 2 VIEW Exam Date: 10/02/19 [...] noted within the colon as seen 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 No pneumoperitoneum. No abnormal calcification. Regional skeletal structures a re intact. IMPRESSION: Interval placement of an enteric tube as descri bed above. Bowel gas pattern is similar to that seen on drywall hanger framer tomogram from comparison CT 10/01/2019. Of note, dilated small bowel loops were fluid-filled at that time and would not be expected to be visualized on plain radiography. No pneumoperitoneum. Signed by: Dr. Brianna Navarro M.D. on 10/01 8:29 AM Dictated By: BRIANNA NAVARRO MD 8 Transcribed By: ZAHEER on 10/02/19828 COPY TO: TYREL MURILLO MD Fluoroscopic procedure less than one hour emvupose6559-33-21 20:31:00* Test Item Value Reference Range Interpretation [...] complexity tests.Testing performed by [facility] [address] [id number] Director: Francisco Javier Barth M.D.CLIA # [id number] Rollins BrookUrine color yqrmbqswccckc5078-99-72 15:16:00* Test Item Value Reference Range Interpretation Comments Urine Color (test code = 5778-6) YELLOW YELLOW [facility] BrookUrine cpgrxlu1982-99-37 15:16:00* Test Item Value Reference Range Interpretation Comments Urine Clarity (test code = 32146-2) CLOUDY CLEAR [facility] Hospitalpecific gravity of Urine by Test strip 2019-10-01 15:16:00* Test Item Value Reference Range Interpretation Comments Urine Specific [place] (test code = 5811-5) 1.015 1.010-1.02 5 [facility] BrookUrine pH measurement by automated test myjcz1548-54-21 15:16:00* Test Item Value Reference Range Interpretation Comments Urine pH (test code = 50546-2) 7.5 5-7 [facility] BrookUrine leukocyte esterase detection by bggwirgz0423-64-00 15:16:00* Test Item Value Reference Range Interpretation Comments Urine Leukocyte Esterase (test code = 5799-2) NEGATIVE NEGATIVE [facility] BrookUrine nitrite ihenyiezx2675-34-82 15:16:00* Test Item Value Reference Range Interpretation Comments Urine Nitrite (test code = 03014-7) NEGATIVE NEGATIVE [facility] BrookUrine protein measurement by test strip (mass/volume)2019-10-01 15:16:00* Test Item Value Reference Range Interpretation Comments Urine Protein (test code = 5804-0) NEGATIVE NEGATIVE [facility] BrookUrine glucose aciakzuuy2141-42-80 15:16:00* Test Item Value Reference Range Interpretation Comments Urine Glucose (UA) (test code = 2349-9) NEGATIVE NEGATIVE [facility] BrookUrine ketones detection by automated test dnuee0834-44-77 15:16:00* Test Item Value Reference Range Interpretation Comments Urine Ketones (test code = 30900-5) NEGATIVE NEGATIVE [facility] BrookUrine urobilinogen measurement by test strip (mass/volume)2019-10-01 15:16:00* Test Item Value Reference Range Interpretation Comments Urine Urobilinogen (test code = 28959-5) 1 0.2-1 [facility] BrookUrine total bilirubin measurement (mass/volume)2019-10-01 15:16:00* Test Item Value Reference Range Interpretation Comments Urine Bilirubin (test code = 1978-6) NEGATIVE NEGATIVE [facility] BrookUrine erythrocytes yjmmcjbrx0095-43-24 15:16:00* Test Item Value Reference Range Interpretation Comments Urine Blood (test code = 30902-2) 2+ NEGATIVE [facility] BrookAutomated urine sediment leukocyte count by microscopy (number/high power field)2019-10-01 15:16:00* Test Item Value Reference Range Interpretation Comments Urine WBC (test code = 5821-4) NONE 0-5 [facility] BrookErythrocytes detection in urine sediment by light udccdonzmy8034-49-08 15:16:00* Test Item Value Reference Range Interpretation Comments Urine RBC (test code = 04514-2) 6-10 0-5 [facility] BrookBacteria detection in urine sediment by light lettosbmix3344-28-44 15:16:00* Test Item Value Reference Range Interpretation Comments Urine Bacteria (test code = 13983-9) MODERATE NONE [facility] BrookEpithelial cells detection in urine sediment by light gejxccromt2577-58-42 15:16:00* Test Item Value Reference Range Interpretation Comments Urine Epithelial Cells (test code = 99402-6) RARE NONE [facility] BrookAmorphous sediment detection in urine sediment by light nwcfsulgct7326-44-03 15:16:00* Test Item Value Reference Range Interpretation Comments Urine Amorphous Sediment (test code = 8246-1) MANY FEW [facility] BrookCT ABDOMEN/PELVIS R0482-25-67 11:46:00 [facility] [address] [address] Patient Name: JOCELIN CORREA MR #: [id number] : 1970 Age/Sex: 49/M Req #: [id number] Adm Physician: Ordered by: YAMILET STEVENS, SANDY STEVENS Report #: [id number] Location: ER Ro om/Bed: Procedure: [id number] CT/CT ABDO MEN/PELVIS W Exam Date: 10/01/19 [...] This exam was performed according to [facility] ental dose-optimization program which includes automated exposure [...] TO: SANDY WOODARD CHEST SINGLE (PORTABLE)2019-10-01 09:18:[address] [address] Patient Name: JOCELIN CORREA MR #: [id number] : 1970 Age/Sex: 49/M Req #: [id number] Adm Physician: Ordered by: SANDY WOODARD MD, MD Report #: [id number] Location: ER Room/Bed: Procedure: [id number] DX/CHEST S BRAD (PORTABLE) Exam Date: 10/01/19 Exam Time: 0850 REPORT STATUS: Signed X-ray [facility] AP portable Comparison: CT 09/01/2019 History: Abdominal pain F indings: Poor inspiratory effort. Otherwise for the technique, central airways , cardiomediastinal silhouettes, pleural spaces, diaphragms, lung thompson, visu alized skeletal structures, extrathoracic soft tissues appear unremarkable. Impression: No significant abnormality on this exam. Signed by: Dionicio samuels MD on 10/01/2019 9:21 AM Dictated By: DIONICIO WHITTINGTON MD [facility] avelina Signed By: DIONICIO WHITTINGTON MD on 10/01/19920 Transcribed By: ZAHEER on 10/01/19920 COPY TO: SANDY WOODARD Fluoroscopic procedure less than one hour qaydiguk2190-52-14 07:45:00* Test Item Value Reference Range Interpretation Comments Differential Total Cells Counted (test code = Kath paulson Total Cells Counted) 100 [facility] blood neutrophils/100 leukocytes 2019-10-01 07:45:00* Test Item Value Reference Range Interpretation Comments Neutrophils % (Manual) (test code = 08640-3) 75 40-74 [facility] blood band neutrophils form/100 rvvexvkzyg3453-82-89 07:45:00* Test Item Value Reference Range Interpretation Comments Band Neutrophils % (test code = 764-1) 4 [facility] blood lymphocytes/100 leukocytes 2019-10-01 07:45:00* Test Item Value Reference Range Interpretation Comments Lymphocytes % (Manual) (test code = 737-7) 9 19-48 [facility] blood monocytes/100 leukocytes 2019-10-01 07:45:00* Test Item Value Reference Range Interpretation Comments Monocytes % (Manual) (test code = 744-3) 8 3.4-9.0 [facility] blood eosinophil count as percentage of total qpsepdbskv6557-04-47 07:45:00* Test Item Value Reference Range Interpretation Comments Eosinophils % (Manual) (test code = 714-6) 4 0-7 [facility] plasma creatine kinase measurement (enzymatic activity/volume)2019-10-01 07:45:00* Test Item Value Reference Range Interpretation Comments Creatine Kinase (test code = 2157-6) 20 30-200 [facility]er[facility] or plasma creatine kinase MB measurement (mass/volume)2019-10-01 07:45:00* Test Item Value Reference Range Interpretation Comments Creatine Kinase MB (test code = 00916-5) 0.30 0-5.0 [facility] BrookTroponin I measurement by highly sensitive enzyme yojsxpwehsq4945-79-46 07:45:00* Test Item Value Reference Range Interpretation Comments Troponin I (test code = 78116-6) 0.013 0-0.300 [facility]er[facility] or plasma lipase measurement (enzymatic activity/volume)2019-10-01 07:45:00* Test Item Value Reference Range Interpretation Comments Lipase (test code = 3040-3) 48 8-78 [facility]er[facility] or plasma sodium measurement (moles/volume)2019-09-02 15:30:00* Test Item Value Reference Range Interpretation Comments Sodium Level (test code = 2951-2) 138 136-145 [facility]er[facility] or plasma potassium measurement (moles/volume)2019-09-02 15:30:00* Test Item Value Reference Range Interpretation Comments Potassium Level (test code = 2823-3) 3.6 3.5-5.1 [facility]er[facility] or plasma chloride measurement (moles/volume)2019-09-02 15:30:00* Test Item Value Reference Range Interpretation Comments Chloride Level (test code = 2075-0) 107 98-107 [facility]er[facility] or plasma carbon dioxide, total measurement (moles/volume)2019-09-02 15:30:00* Test Item Value Reference Range Interpretation Comments Carbon Dioxide Level (test code = 2028-9) 26 22-29 [facility]er[facility] or plasma anion qun4551-92-66 15:30:00* Test Item Value Reference Range Interpretation Comments Anion Gap (test code = 58300-0) 8.6 8-16 [facility] or plasma urea nitrogen measurement (mass/volume)2019-09-02 15:30:00* Test Item Value Reference Range Interpretation Comments Blood Urea Nitrogen (test code = 3094-0) 11 7-26 [facility] or plasma creatinine measurement (mass/volume)2019-09-02 15:30:00* Test Item Value Reference Range Interpretation Comments Creatinine (test code = 2160-0) 1.05 0.72-1.25 [facility]er[facility] or plasma urea nitrogen/creatinine mass ryfsb7378-99-67 15:30:00* Test Item Value Reference Range Interpretation Comments BUN/Creatinine Ratio (test code = 3097-3) 10 6-25 [facility] BrookEstimated glomerular filtration rate (GFR) pfxpkjyjbbffi1379-63-43 15:30:00* Test Item Value Reference Range Interpretation Comments Estimat Glomerular Filtration Rate (test code = 839113536) > 60 >60 Ranges were taken from the National Kidney Disease Education Program and the [facility] literature.Reference ranges:60 or greater: Ivnzga94-67 ( for 3 consecutive months): Chronic kidney disease 15 or less: Kidney failureAdventHealth Rollins BrookGlucose aljzrrodloc0869-60-95 15:30:00* Test Item Value Reference Range Interpretation Comments Glucose Level (test code = ZIF0414) 104 74-118 [facility] or plasma calcium measurement (mass/volume)2019-09-02 15:30:00* Test Item Value Reference Range Interpretation Comments Calcium Level (test code = 92456-1) 7.4 8.4-10.2 [facility]er[facility] or plasma total bilirubin measurement (mass/volume)2019-09-02 15:30:00* Test Item Value Reference Range Interpretation Comments Total Bilirubin (test code = 1975-2) 1.4 0.2-1.2 [facility] BrookFluoroscopic procedure less than one hour gdgexxkm5861-91-71 15:30:00* Test Item Value Reference Range Interpretation Comments Aspartate Amino Transf (AST/SGOT) (test code = Aspartate Amino Transf (AST/SGOT)) 30 5-34 [facility]er[facility] or plasma alanine aminotransferase measurement (enzymatic activity/volume)2019-09-02 15:30:00* Test Item Value Reference Range Interpretation Comments Alanine Aminotransferase (ALT/SGPT) (test code = 1742-6) 12 0-55 [facility] or plasma protein measurement (mass/volume)2019-09-02 15:30:00* Test Item Value Reference Range Interpretation Comments Total Protein (test code = 2885-2) 6.2 6.5-8.1 [facility]er[facility] or plasma albumin measurement (mass/volume)2019-09-02 15:30:00* Test Item Value Reference Range Interpretation Comments Albumin (test code = 1751-7) 2.1 3.5-5.0 [facility] BrookPlasma globulin measurement (mass/volume) 2019-09-02 15:30:00* Test Item Value Reference Range Interpretation Comments Globulin (test code = 09339-8) 4.1 2.3-3.5 [facility]er[facility] or plasma albumin/globulin mass jnsdz2940-03-43 15:30:00* Test Item Value Reference Range Interpretation Comments Albumin/Globulin Ratio (test code = 1759-0) 0.5 0.8-2.0 [facility]er[facility] or plasma alkaline phosphatase measurement (enzymatic activity/volume)2019-09-02 15:30:00* Test Item Value Reference Range Interpretation Comments Alkaline Phosphatase (test code = 6768-6) 41 40-150 [facility] BrookUS ABDOMEN SZYOAOI0266-68-37 10:42:00 [facility] [address] [address] Patient Name: JOCELIN CORREA MR #: [id number] : 1970 Age/Sex: 49/M Req #: [id number] Adm Physician: DAVI KELLY MD Ordered by: Marissa Mulligan WINDING MACHINE OPERATOR Report #: [id number] Location: MED/SURG3 Room/Bed: [facility] Procedure: [id number] US/US ABDOMEN LIMITED Exam Date: 09/02/19 Exam [...] 44 COPY TO: MARISSA MULLIGAN NP Ammonia Vyb-fEyp7512-63-22 10:00:00* Test Item Value Reference Range Interpretation Comments Ammonia (test code = 87621-4) 122 31-123 [facility] BrookBlood leukocytes automated count (number/volume)2019-09-02 05:15:00* Test Item Value Reference Range Interpretation Comments White Blood Count (test code = 6690-2) 2.59 4.8-10.8 [facility] BrookBlredwood llc erythrocytes automated count (number/volume)2019-09-02 05:15:00* Test Item Value Reference Range Interpretation Comments Red Blood Count (test code = 789-8) 3.29 4.3-5.7 [facility] BrookBlood hemoglobin measurement (moles/volume)2019-09-02 05:15:00* Test Item Value Reference Range Interpretation Comments Hemoglobin (test code = 37872-2) 8.0 14.0-18.0 [facility] BrookAutomated blood hematocrit (volume fraction)2019-09-02 05:15:00* Test Item Value Reference Range Interpretation Comments Hematocrit (test code = 4544-3) 25.9 38.2-49.6 [facility] BrookAutomated erythrocyte mean corpuscular htsaha1164-02-27 05:15:00* Test Item Value Reference Range Interpretation Comments Mean Corpuscular Volume (test code = 787-2) 78.7 81-99 [facility] BrookAutomated erythrocyte mean corpuscular hemoglobin (mass per erythrocyte)2019-09-02 05:15:00* Test Item Value Reference Range Interpretation Comments Mean Corpuscular Hemoglobin (test code = 785-6) 24.3 28-32 [facility] BrookAutomated erythrocyte mean corpuscular hemoglobin concentration measurement (mass/volume)2019-09-02 05:15:00* Test Item Value Reference Range Interpretation Comments Mean Corpuscular Hemoglobin Concent (test code = 786-4) 30.9 31-35 [facility] BrookRDW FdiIj-Gzx7945-47-22 05:15:00* Test Item Value Reference Range Interpretation Comments Red Cell Distribution Width (test code = 32346-1) 27.2 11.7 -14.4 [facility] BrookAutomated blood platelet count (count/volume)2019-09-02 05:15:00* Test Item Value Reference Range Interpretation Comments Platelet Count (test code = 777-3) 34 140-360 Results repeated and called to REENA GRIFFIN RN at 0619 on 09/02/19 by Michael murillo. Read back and verified.[facility] BrookAutomated blood segmented neutrophil count as percentage of total ldcmvcdcxe3237-61-91 05:15:00* Test Item Value Reference Range Interpretation Comments Neutrophils (%) (Auto) (test code = 41247-9) 46.0 38.7-80.0 [facility] Brook[facility]ated blood lymphocyte count as percentage ot total dqvwaeqftr7982-16-63 05:15:00* Test Item Value Reference Range Interpretation Comments Lymphocytes (%) (Auto) (test code = 736-9) 18.9 18.0-39.1 [facility] BrookAutomated blood monocyte count as percentage of total exahebzfmy3584-18-31 05:15:00* Test Item Value Reference Range Interpretation Comments Monocytes (%) (Auto) (test code = 5905-5) 27.4 4.4-11.3 [facility] BrookAutomated blood eosinophil count as percentage of total wrujllvrmq0283-72-70 05:15:00* Test Item Value Reference Range Interpretation Comments Eosinophils (%) (Auto) (test code = 713-8) 6.9 0.0-6.0 [facility] BrookAutomated blood basophil count as percentage of total aycbohruut8276-70-01 05:15:00* Test Item Value Reference Range Interpretation Comments Basophils (%) (Auto) (test code = 706-2) 0.4 0.0-1.0 [facility] BrookFluoroscopic procedure less than one hour mwrhkern1879-91-42 05:15:00* Test Item Value Reference Range Interpretation Comments IM GRANULOCYTES % (test code = IM GRANULOCYTES %) 0.4 0.0- 1.0 [facility] BrookAutomated blood neutrophil count 2019-09-02 05:15:00* Test Item Value Reference Range Interpretation Comments Neutrophils # (Auto) (test code = 751-8) 1.2 2.1-6.9 [facility] BrookBlood lymphocytes count (number/volume) 2019-09-02 05:15:00* Test Item Value Reference Range Interpretation Comments Lymphocytes # (Auto) (test code = 99686-0) 0.5 1.0-3.2 [facility] monocytes automated count (number/volume)2019-09-02 05:15:00* Test Item Value Reference Range Interpretation Comments Monocytes # (Auto) (test code = 742-7) 0.7 0.2-0.8 [facility] BrookAutomated blood eosinophil count 2019-09-02 05:15:00* Test Item Value Reference Range Interpretation Comments Eosinophils # (Auto) (test code = 711-2) 0.2 0.0-0.4 [facility] BrookAutomated blood basophil count (count/volume)2019-09-02 05:15:00* Test Item Value Reference Range Interpretation Comments Basophils # (Auto) (test code = 704-7) 0.0 0.0-0.1 [facility] BrookFluoroscopic procedure less than one hour reyiyxyi3032-62-49 05:15:00* Test Item Value Reference Range Interpretation Comments Absolute Immature Granulocyte (auto ([place] t code = Absolute Immature Granulocyte (auto) 0.01 0-0.1 [facility] BrookFluoroscopic procedure less than one hour lpujkuak3982-00-54 05:15:00* Test Item Value Reference Range Interpretation Comments Differential Total Cells Counted (test code = Differen tial Total Cells Counted) 100 [facility] BrookManual blood neutrophils/100 leukocytes 2019-09-02 05:15:00* Test Item Value Reference Range Interpretation Comments Neutrophils % (Manual) (test code = 38958-3) 66 40-74 [facility] blood band neutrophils form/100 ykmluxnvcm1795-36-58 05:15:00* Test Item Value Reference Range Interpretation Comments Band Neutrophils % (test code = 764-1) 1 [facility] blood lymphocytes/100 leukocytes 2019-09-02 05:15:00* Test Item Value Reference Range Interpretation Comments Lymphocytes % (Manual) (test code = 737-7) 16 19-48 [facility]100 leukocytes 2019-09-02 05:15:00* Test Item Value Reference Range Interpretation Comments Monocytes % (Manual) (test code = 744-3) 14 3.4-9.0 [facility] blood eosinophil count as percentage of total zqjqwhntcg5767-45-76 05:15:00* Test Item Value Reference Range Interpretation Comments Eosinophils % (Manual) (test code = 714-6) 3 0-[address] [facility] count by estimate (number/volume)2019-09-02 05:15:00* Test Item Value Reference Range Interpretation Comments Platelet Estimate (test code = 95484-3) MARKEDLY DECREASED [facility] BrookPlatelet jkbqzfzwbq3371-38-94 05:15:00* Test Item Value Reference Range Interpretation Comments Platelet Morphology Comment (test code = 13110-7) FEW LARGE [facility] polychromasia detection by light inprgmgwth3937-01-25 05:15:00* Test Item Value Reference Range Interpretation Comments Polychromasia (test code = 56540-8) FEW [facility] hypochromia detection by light qpdsfuejjg3413-95-44 05:15:00* Test Item Value Reference Range Interpretation Comments Hypochromasia (test code = 728-6) MODERATE [facility] anisocytosis detection by light hquadnklxc2710-50-43 05:15:00* Test Item Value Reference Range Interpretation Comments Anisocytosis (test code = 702-1) MARKED [facility] microcytes detection by light yrobwueuqe1799-71-34 05:15:00* Test Item Value Reference Range Interpretation Comments Microcytosis (test code = 741-9) SLIGHT [facility]Blood target cells detection by light shtwidfcft4116-07-45 05:15:00* Test Item Value Reference Range Interpretation Comments Target Cells (test code = 70448-8) FEW [facility] dacrocytes detection by light vyryxfzyzc9623-06-49 05:15:00* Test Item Value Reference Range Interpretation Comments Tear Drop Cells (test code = 7791-7) FEW [facility] ovalocytes detection by light gwpqxoiooy5817-10-36 05:15:00* Test Item Value Reference Range Interpretation Comments Ovalocytes (test code = 774-0) FEW [facility] BrookElliptocyte itqvsikhs0324-07-32 05:15:00 * Test Item Value Reference Range Interpretation Comments Elliptocytes (test code = 06369-1) SLIGHT [facility] BrookRBC zpasfjsdif4883-84-15 05:15:00* Test Item Value Reference Range Interpretation Comments Red Cell Morphology Comment (test code = 6742-1) ABNORMAL [facility] or plasma magnesium measurement (mass/volume)2019-09-02 05:15:00* Test Item Value Reference Range Interpretation Comments Magnesium Level (test code = 24779-2) 1.1 1.3-2.1 Results repeated and called to REENA GRIFFIN RN at 0632 on 09/02/19 by Michael sorensen Read back and verified.[facility] polychromasia detection by light jxuwjkzmbc5640-18-57 05:15:00* Test Item Value Reference Range Interpretation Comments Polychromasia (test code = 42110-0) FEW [facility] BrookBlood hypochromia detection by light xosakqusdr7806-49-40 05:15:00* Test Item Value Reference Range Interpretation Comments Hypochromasia (test code = 728-6) MODERATE [facility] anisocytosis detection by light cvqmbntqkp4998-86-15 05:15:00* Test Item Value Reference Range Interpretation Comments Anisocytosis (test code = 702-1) MARKED [facility] microcytes detection by light pljswlhrkn3858-09-68 05:15:00* Test Item Value Reference Range Interpretation Comments Microcytosis (test code = 741-9) SLIGHT [facility] target cells detection by light sielwbqpvz6747-62-11 05:15:00* Test Item Value Reference Range Interpretation Comments Target Cells (test code = 56903-5) FEW [facility] dacrocytes detection by light msbhlfdtnw9181-17-70 05:15:00* Test Item Value Reference Range Interpretation Comments Tear Drop Cells (test code = 7791-7) FEW [facility] BrookBlood ovalocytes detection by light zxiicievsj8260-23-04 05:15:00* Test Item Value Reference Range Interpretation Comments Ovalocytes (test code = 774-0) [facility] gzjqhsqff4740-56-14 05:15:00 * Test Item Value Reference Range Interpretation Comments Elliptocytes (test code = 89750-4) SLIGHT [facility] vrlytfe8803-86-38 11:50:00* Test Item Value Reference Range Interpretation Comments Blood Culture (test code = 95386576) NO GROWTH AFTER 24 HOURS [facility] ulmkmsp9593-80-90 11:50:00* Test Item Value Reference Range Interpretation Comments Blood Culture (test code = 49205792) NO GROWTH AFTER 5 DAYS, FINAL REPORT [facility] BrookFluoroscopic procedure less than one hour mdhdvikc3206-22-92 11:40:00* Test Item Value Reference Range Interpretation [...] under 564(g) of the ACT.Testing performed by [id number] [place], [place] [address]CT CHEST BL1565-27-22 10:41:00 [facility] [address] [address] Patient Name: JOCELIN CORREA MR #: [id number] : 1970 Age/Sex: 49/M Req #: [id number] Adm Physician: DAVI KELLY MD Ordered by: Marissa Mulligan WINDING MACHINE OPERATOR Report #: [id number] Location: MED/SURG3 Room/Bed: [facility] Procedure: [id number] CT/CT CHEST W O Exam Date: 09/01/19 Exam Time: 1000 REPORT STATUS: Signed CT chest without enhance ment CPT code: 96629 INDICATION: Pneumonia, cough TECHNIQUE: Th in collimation [...] on 09/01/19 1058 COPY TO: MARISSA MULLIGAN WINDING MACHINE OPERATOR CHEST SINGLE (PORTABLE)2019-09-01 07:56:[address] [address] Patient Name: JOCELIN CORREA MR #: [id number] : 1970 Age/Sex: 49/M Req #: [id number] Adm Physician: DAVI KELLY MD Ordered by: AMARA GUTHRIE MD Report #: [id number] Location: MED/SURG3 Room/Bed: 2981 Procedure: DX/CHEST SING [...] COPY TO: AMARA GUTHRIE MD Urine color sjyeijgomqxis9196-34-48 06:10:00* Test Item Value Reference Range Interpretation Comments Urine Color (test code = 5778-6) YELLOW YELLOW [facility] Brook[facility]rine krxlpao6689-79-47 06:10:00* Test Item Value Reference Range Interpretation Comments Urine Clarity (test code = 53948-5) CLOUDY CLEAR [facility] gravity of Urine by Test strip 2019-09-01 06:10:00* Test Item Value Reference Range Interpretation Comments Urine Specific [place] (test code = 5811-5) 1.020 1.010-1.02 5 [facility] Brook[facility] pH measurement by automated test lihve0469-30-24 06:10:00* Test Item Value Reference Range Interpretation Comments Urine pH (test code = 66007-8) 7 5-7 [facility] leukocyte esterase detection by djxdgejr5392-73-95 06:10:00* Test Item Value Reference Range Interpretation Comments Urine Leukocyte Esterase (test code = 5799-2) NEGATIVE NEGATIVE [facility] Brook[facility]rine nitrite ocbkqwbxb7555-12-34 06:10:00* Test Item Value Reference Range Interpretation Comments Urine Nitrite (test code = 68068-9) NEGATIVE NEGATIVE [facility] BrookUrine protein measurement by test strip (mass/volume)2019-09-01 06:10:00* Test Item Value Reference Range Interpretation Comments Urine Protein (test code = 5804-0) 1+ NEGATIVE [facility] BrookUrine glucose tjpkcpdhf7828-41-58 06:10:00* Test Item Value Reference Range Interpretation Comments Urine Glucose (UA) (test code = 2349-9) NEGATIVE NEGATIVE [facility] BrookUrine ketones detection by automated test kctlz4774-25-32 06:10:00* Test Item Value Reference Range Interpretation Comments Urine Ketones (test code = 01066-8) NEGATIVE NEGATIVE [facility] BrookUrine urobilinogen measurement by test strip (mass/volume)2019-09-01 06:10:00* Test Item Value Reference Range Interpretation Comments Urine Urobilinogen (test code = 62582-8) 2 0.2-1 [facility] Brook[facility] total bilirubin measurement (mass/volume)2019-09-01 06:10:00* Test Item Value Reference Range Interpretation Comments Urine Bilirubin (test code = 1978-6) SMALL NEGATIVE [facility] BrookU[facility] erythrocytes gudsvlrry4369-09-63 06:10:00* Test Item Value Reference Range Interpretation Comments Urine Blood (test code = 22093-3) LARGE NEGATIVE [facility] BrookAutomated urine sediment leukocyte count by microscopy (number/high power field)2019-09-01 06:10:00* Test Item Value Reference Range Interpretation Comments Urine WBC (test code = 5821-4) >50 0-5 [facility] BrookErythrocytes detection in urine sediment by light gmjnmhjmdz9206-44-36 06:10:00* Test Item Value Reference Range Interpretation Comments Urine RBC (test code = 87287-8) >50 0-5 [facility] BrookBacteria detection in urine sediment by light smzbtsgitz4448-23-15 06:10:00* Test Item Value Reference Range Interpretation Comments Urine Bacteria (test code = 72590-6) MODERATE NONE [facility] BrookEpithelial cells detection in urine sediment by light cjvupiwwok1634-54-44 06:10:00* Test Item Value Reference Range Interpretation Comments Urine Epithelial Cells (test code = 06307-4) RARE NONE [facility] lactoferrin xdwvxlaxx6129-22-82 06:10:00* Test Item Value Reference Range Interpretation Comments Stool Lactoferrin (LAB) (test code = 20213-8) NEGATIVE NEGATIVE Testing on stool aspirate specimens is outside 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 since specime n type not validated on this assay.[facility] Hospital[facility] lactoferrin hgdqzrrpt3158-16-39 06:10:00* Test Item Value Reference Range Interpretation Comments Stool Lactoferrin (LAB) (test code = 99491-8) NEGATIVE NEGATIVE Testing on stool aspirate specimens is outside 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 since specime n type not validated on this assay.[facility] BrookCT ABDOMEN/PELVIS V6981-98-32 10:31:00 [address] [address] Patient Name: JOCELIN CORREA MR #: [id number] : 1970 Age/Sex: 49/M Req #: [id number] Adm Physician: DAVI KELLY MD Ordered by: AMARA GUTHRIE MD Report #: [id number] Location: MED/SURG3 Room/Bed: [facility] Procedure: [id number] CT/CT ABDOMEN /PELVIS W Exam Date: 08/28/19 [...] The examination was performed according to the [facility] dose-optimization program, which includes automated exposure control, [...] (aPTT) in platelet poor plasma by coagulation gqrdx2257-47-64 05:30:00* Test Item Value Reference Range Interpretation Comments Activated Partial Thromboplast Time (test code = 59087-6) 43.5 23.8-35.5 [facility] BrookPhosphorus okoyvsmbsnz1048-92-77 05:30:00 * Test Item Value Reference Range Interpretation Comments Phosphorus Level (test code = BEB1712) 2.6 2.3-4.7 [facility] BrookActivated partial thromboplastin time (aPTT) in platelet poor plasma by coagulation pjvkl7219-37-80 05:30:00* Test Item Value Reference Range Interpretation Comments Activated Partial Thromboplast Time (test code = 40740-3) 43.5 23.8-35.5 [facility] BrookPhosphorus phagehzzvtb9081-31-93 05:30:00 * Test Item Value Reference Range Interpretation Comments Phosphorus Level (test code = KMB8633) 2.6 2.3-4.7 [facility] Hospitalerum or plasma C reactive protein measurement (mass/volume)2019-08-27 09:00:00* Test Item Value Reference Range Interpretation Comments C-Reactive Protein (test code = 1987-5) 3 0-10 Performed at: [facility] [address] [id number] Director: Lopez Morgan MD, Phone: [phone] Stone Oak Hospitalerum or plasma C reactive protein measurement (mass/volume)2019-08-27 09:00:00* Test Item Value Reference Range Interpretation Comments C-Reactive Protein (test code = 1987-5) 3 0-10 Performed at: [facility] [address] [id number] Director: Lopez Morgan MD, Phone: [phone] Stone Oak Hospitalerum or plasma amylase measurement (enzymatic activity/volume)2019-08-27 02:10:00* Test Item Value Reference Range Interpretation Comments Amylase Level (test code = 1798-8) 65 25-125 [facility]er[facility] or plasma lipase measurement (enzymatic activity/volume)2019-08-27 02:10:00* Test Item Value Reference Range Interpretation Comments Lipase (test code = 3040-3) 22 8-78 [facility]er[facility] or plasma amylase measurement (enzymatic activity/volume)2019-08-27 02:10:00* Test Item Value Reference Range Interpretation Comments Amylase Level (test code = 1798-8) 65 25-125 [facility] BrookUrine sodium measurement (moles/volume) 2019-08-27 00:55:00* Test Item Value Reference Range Interpretation Comments Urine Random Sodium (test code = 2955-3) 60 [facility] BrookUrine creatinine measurement (mass/volume)2019-08-27 00:55:00* Test Item Value Reference Range Interpretation Comments Urine Creatinine (test code = 2161-8) 228.30 42-166 [facility] BrookUrine sodium measurement (moles/volume) 2019-08-27 00:55:00* Test Item Value Reference Range Interpretation Comments Urine Random Sodium (test code = 2955-3) 60 [facility] BrookUrine creatinine measurement (mass/volume)2019-08-27 00:55:00* Test Item Value Reference Range Interpretation Comments Urine Creatinine (test code = 2161-8) 228.30 42-166 [facility] BrookUS RENAL RETROPERITONEAL SEYH7407-66-99 13:47:00 [facility] [address] [address] Patient Name: JOCELIN CORREA MR #: [id number] : 1970 Age/Sex: 49/M Req #: [id number] Adm Physician: DAVI KELLY MD Ordered by: APPLE QUIROZ MD Report #: [id number] Location: [facility]/SURG3 Room/Bed: [facility] Procedure: [id number] US/US RENAL RET ROPERITONEAL COMP Exam Date: [...] QUIROZ MD US ABDOMEN LIMITED 2019-08-26 11:13:00 [address] [address] Patient Name: JOCELIN CORREA MR #: [id number] : 1970 Age/Sex: 49/M Req #: [id number] Adm Physician: DAVI KELLY MD Ordered by: AMARA GUTHRIE MD Report #: [id number] Location: [facility] Room/Bed: [facility] Procedure: [id number] US/US ABDOMEN LIMITED Exam Date: 08/26/19 Exam [...] Automated reticulocyte count as percentage of total vzimbbcbnbia5812-67-81 06:30:00* Test Item Value Reference Range Interpretation Comments Percent Reticulocyte Count (test code = 10903-3) 0.6 0.8-2 .2 [facility] Hospitaler[facility] or plasma iron measurement (mass/volume)2019-08-26 06:30:00* Test Item Value Reference Range Interpretation Comments Iron Level (test code = 2498-4) 36 65-175 [facility] Hospitalerum or plasma iron binding capacity measurement (mass/volume)2019-08-26 06:30:00* Test Item Value Reference Range Interpretation Comments Total Iron Binding Capacity (test code = 2500-7) 421 261-4 78 [facility] Hospitalerum or plasma iron saturation measurement (mass fraction)2019-08-26 06:30:00* Test Item Value Reference Range Interpretation Comments Percent Iron Saturation (test code = 2502-3) 9 15-50 [facility] Hospitaler[facility] or plasma transferrin measurement (mass/volume)2019-08-26 06:30:00* Test Item Value Reference Range Interpretation Comments Transferrin (test code = 3034-6) 301 174-364 [facility]er[facility] or plasma ferritin measurement (mass/volume)2019-08-26 06:30:00* Test Item Value Reference Range Interpretation Comments Ferritin (test code = 2276-4) 27.43 21.81-274.66 [facility] Hospitalerum or plasma creatine kinase measurement (enzymatic activity/volume)2019-08-26 06:30:00* Test Item Value Reference Range Interpretation Comments Creatine Kinase (test code = 2157-6) 82 30-200 [facility] Hospitalerum or plasma creatine kinase MB measurement (mass/volume)2019-08-26 06:30:00* Test Item Value Reference Range Interpretation Comments Creatine Kinase MB (test code = 46790-1) 0.60 0-5.0 [facility] BrookTroponin I measurement by highly sensitive enzyme gqncqhtzgfd8751-63-75 06:30:00* Test Item Value Reference Range Interpretation Comments Troponin I (test code = 71500-2) 0.006 0-0.300 [facility] BrookBlood cobalamin (vitamin B12) measurement (mass/volume)2019-08-26 06:30:00* Test Item Value Reference Range Interpretation Comments Vitamin B12 Level (test code = 21586-9) 1261 213-816 [facility]er[facility] or plasma folate measurement (mass/volume)2019-08-26 06:30:00* Test Item Value Reference Range Interpretation Comments Folate (test code = 2284-8) > 40.0 7.0-15.4 [facility] Hospitalerum or plasma folate measurement (mass/volume)2019-08-26 06:30:00* Test Item Value Reference Range Interpretation Comments Folate (test code = 2284-8) > 40.0 7.0-15.4 [facility] BrookManual basophil rpkqzhfstv9531-75-18 05:50:00* Test Item Value Reference Range Interpretation Comments Basophils % (Manual) (test code = 13726-8) 2 0-1.5 [facility] BrookProthrombin time (PT) in platelet poor plasma by coagulation nocee8227-25-26 05:50:00* Test Item Value Reference Range Interpretation Comments Prothrombin Time (test code = 5902-2) 17.2 11.9-14.5 [facility] BrookINR in Platelet poor plasma by Coagulation klows0303-45-30 05:50:00* Test Item Value Reference Range Interpretation Comments Prothromb Time International Ratio (test code = 6301-6) 1.31 Oral Anticoagulant Therapy INR Values:1. Low Intensity Therapy 1.5 - 2.02 . Moderate Intensity Therapy 2.0 - 3.03. High Intensity Therapy(1) 2.5 - 3. 54. High Intensity Therapy(2) 3.0 - 4.05. Panic Value INR > 5.0 [facility] Hospitalerum or plasma hepatitis C virus RNA detection by probe and target amplification vdsqyw6763-27-39 05:50:00* Test Item Value Reference Range Interpretation Comments Hepatitis C RNA Qualitative (PCR) (test code = 99713-9) Negative Negative Negative: HCV RNA Not DetectedPerformed at: [address] [id number] Director: Denisse Dee MD, Phone: [phone] [address] [place], [place] [address]erum or plasma hxgrh-0-hfqmlpgfjyg.tumor marker measurement (mass/volume)2019-08-25 05:50:00* Test Item Value Reference Range Interpretation Comments Alpha Fetoprotein (test code = 49516-1) 3.3 0.0-8.3 [facility] Electrochemiluminescence Immunoassay(ECLIA)Values obtained wit h different assay methods or kits cannotbe used interchangeably. Results cannot be interpreted asabsolute evidence of the presence or absence of malignantdisea se.This test is not interpretable in females.Performed at: [facility] [address] [id number] Director: Lopez Morgan MD, Phone: [phone] Rollins BrookManual basophil rjitbnvifi7759-77-89 05:50:00* Test Item Value Reference Range Interpretation Comments Basophils % (Manual) (test code = 29172-3) 2 0-1.5 [facility] plasma hepatitis C virus RNA detection by probe and target amplification mafbeo2376-93-37 05:50:00* Test Item Value Reference Range Interpretation Comments Hepatitis C RNA Qualitative (PCR) (test code = 25722-3) Negative Negative Negative: HCV RNA Not DetectedPerformed at: - [facility] [id number] Director: Denisse Dee MD, Phone: [phone] 44[facility] Hospitalerum or plasma zoiun-1-iplafwinykk.tumor marker measurement (mass/volume)2019-08-25 05:50:00* Test Item Value Reference Range Interpretation Comments Alpha Fetoprotein (test code = 17157-4) 3.3 0.0-8.3 [facility] Electrochemiluminescence Immunoassay(ECLIA)Values obtained wit h different assay methods or kits cannotbe used interchangeably. 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 Report #: [id number] Location: MED/SURG3 Room/Bed: [facility] Procedure: [id number] DX/CHEST 2 VIEW S Exam Date: 08/25/19 [...] NP Fluoroscopic procedure less than one hour nqinklms2527-58-08 11:10:00* Test Item Value Reference Range Interpretation Comments Lactic Acid Level (test code = Lactic Acid Level) 1.1 0.5- 2.0 [facility] BrookFluoroscopic procedure less than one hour tsbeasky7914-28-75 11:10:00* Test Item Value Reference Range Interpretation Comments Lactic Acid Level (test code = Lactic Acid Level) 1.1 0.5- 2.0 [facility] BrookCT ABDOMEN/PELVIS K9941-43-86 14:47:00 [facility] [address] [address] Patient Name: JOCELIN CORREA MR #: [id number] : 1970 Age/Sex: 49/M Req #: [id number] Adm Physician: Ordered by: RACHAEL HAN rt #: [id number] Location: ER Room/Be d: Procedure: [id number] CT/CT ABDOMEN/P NEVA W Exam Date: 08/23/19 [...] Count (test code = 6690-2) 2.51 4.8-10.8 [facility] count (number/volume)2019-08-16 05:10:00* Test Item Value Reference Range Interpretation Comments Red Blood Count (test code = 789-8) 3.18 4.3-5.7 [facility] hemoglobin measurement (moles/volume)2019-08-16 05:10:00* Test Item Value Reference Range Interpretation Comments Hemoglobin (test code = 67908-3) 7.0 14.0-18.0 [facility] BrookAutomated blood hematocrit (volume fraction)2019-08-16 05:10:00* Test Item Value Reference Range Interpretation Comments Hematocrit (test code = 4544-3) 24.3 38.2-49.6 [facility] Brook[facility]ated erythrocyte mean corpuscular upgxmu8110-62-09 05:10:00* Test Item Value Reference Range Interpretation Comments Mean Corpuscular Volume (test code = 787-2) 76.4 81-99 [facility] BrookAutomated erythrocyte mean corpuscular hemoglobin (mass per erythrocyte)2019-08-16 05:10:00* Test Item Value Reference Range Interpretation Comments Mean Corpuscular Hemoglobin (test code = 785-6) 22.0 28-32 [facility] BrookAutom[facility] erythrocyte mean corpuscular hemoglobin concentration measurement (mass/volume)2019-08-16 05:10:00* Test Item Value Reference Range Interpretation Comments Mean Corpuscular Hemoglobin Concent (test code = 786-4) 28.8 31-35 [facility] BrookRDW XvxMn-Nqi9780-35-05 05:10:00* Test Item Value Reference Range Interpretation Comments Red Cell Distribution Width (test code = 47160-5) 20.0 11.7 -14.4 [facility] BrookAutomated blood platelet count (count/volume)2019-08-16 05:10:00* Test Item Value Reference Range Interpretation Comments Platelet Count (test code = 777-3) 50 140-360 [facility] BrookAutomated blood segmented neutrophil count as percentage of total jpdhuyowkt2080-96-24 05:10:00* Test Item Value Reference Range Interpretation Comments Neutrophils (%) (Auto) (test code = 44328-0) 52.6 38.7-80.0 [facility] BrookAutomated blood lymphocyte count as percentage ot total nladusnnfg5694-19-65 05:10:00* Test Item Value Reference Range Interpretation Comments Lymphocytes (%) (Auto) (test code = 736-9) 17.9 18.0-39.1 [facility] BrookAutomated blood monocyte count as percentage of total ywvpvchqcq4110-85-65 05:10:00* Test Item Value Reference Range Interpretation Comments Monocytes (%) (Auto) (test code = 5905-5) 18.3 4.4-11.3 [facility] BrookAutom[facility] blood eosinophil count as percentage of total pbymwasbmo8449-94-20 05:10:00* Test Item Value Reference Range Interpretation Comments Eosinophils (%) (Auto) (test code = 713-8) 10.0 0.0-6.0 [facility] BrookAutomated blood basophil count as percentage of total lbrsmtmvom0615-70-38 05:10:00* Test Item Value Reference Range Interpretation Comments Basophils (%) (Auto) (test code = 706-2) 0.8 0.0-1.0 [facility] BrookFluoroscopic procedure less than one hour swpcvdbk9458-60-84 05:10:00* Test Item Value Reference Range Interpretation Comments IM GRANULOCYTES % (test code = IM GRANULOCYTES %) 0.4 0.0- 1.0 [facility] BrookAutom[facility] blood neutrophil count 2019-08-16 05:10:00* Test Item Value Reference Range Interpretation Comments Neutrophils # (Auto) (test code = 751-8) 1.3 2.1-6.9 [facility] lymphocytes count (number/volume) 2019-08-16 05:10:00* Test Item Value Reference Range Interpretation Comments Lymphocytes # (Auto) (test code = 92777-0) 0.5 1.0-3.2 [facility] monocytes automated count (number/volume)2019-08-16 05:10:00* Test Item Value Reference Range Interpretation Comments Monocytes # (Auto) (test code = 742-7) 0.5 0.2-0.8 [facility] Brook[facility] blood eosinophil count 2019-08-16 05:10:00* Test Item Value Reference Range Interpretation Comments Eosinophils # (Auto) (test code = 711-2) 0.3 0.0-0.4 [facility] BrookAutomated blood basophil count (count/volume)2019-08-16 05:10:00* Test Item Value Reference Range Interpretation Comments Basophils # (Auto) (test code = 704-7) 0.0 0.0-0.1 [facility] BrookFluoroscopic procedure less than one hour rnotwzxx3976-73-70 05:10:00* Test Item Value Reference Range Interpretation Comments Absolute Immature Granulocyte (auto ([place] t code = Absolute Immature Granulocyte (auto) 0.01 0-0.1 [facility] platelets count by estimate (number/volume)2019-08-16 05:10:00* Test Item Value Reference Range Interpretation Comments Platelet Estimate (test code = 66876-4) MARKEDLY DECREASED [facility] BrookPlatelet jgfcshenzp7497-71-88 05:10:00* Test Item Value Reference Range Interpretation Comments Platelet Morphology Comment (test code = 71331-1) NORMAL NO EDTA PLT CLUMPS SEENAdventHealth Rollins BrookBlood hypochromia detection by light bebtjqmyhi1837-05-80 05:10:00* Test Item Value Reference Range Interpretation Comments Hypochromasia (test code = 728-6) [facility] sodium measurement (moles/volume)2019-08-16 05:10:00* Test Item Value Reference Range Interpretation Comments Sodium Level (test code = 2951-2) 130 136-145 [facility] plasma potassium measurement (moles/volume)2019-08-16 05:10:00* Test Item Value Reference Range Interpretation Comments Potassium Level (test code = 2823-3) 3.3 3.5-5.1 [facility] chloride measurement (moles/volume)2019-08-16 05:10:00* Test Item Value Reference Range Interpretation Comments Chloride Level (test code = 2075-0) 97 98-107 [facility]er[facility] or plasma carbon dioxide, total measurement (moles/volume)2019-08-16 05:10:00* Test Item Value Reference Range Interpretation Comments Carbon Dioxide Level (test code = 2028-9) 26 22-29 [facility] or plasma anion wru4289-36-02 05:10:00* Test Item Value Reference Range Interpretation Comments Anion Gap (test code = 65803-5) 10.3 8-16 [facility] plasma urea nitrogen measurement (mass/volume)2019-08-16 05:10:00* Test Item Value Reference Range Interpretation Comments Blood Urea Nitrogen (test code = 3094-0) 11 7-26 [facility] plasma creatinine measurement (mass/volume)2019-08-16 05:10:00* Test Item Value Reference Range Interpretation Comments Creatinine (test code = 2160-0) 1.02 0.72-1.25 [facility]er[facility] or plasma urea nitrogen/creatinine mass wlobd7484-35-60 05:10:00* Test Item Value Reference Range Interpretation Comments BUN/Creatinine Ratio (test code = 3097-3) 11 6-25 [facility] BrookEstimated glomerular filtration rate (GFR) wabgdprfunifk8181-52-27 05:10:00* Test Item Value Reference Range Interpretation Comments Estimat Glomerular Filtration Rate (test code = 122384967) > 60 >60 Ranges were taken from the National Kidney Disease Education Program and the [facility] Kidney Foundation literature.Reference ranges:60 or greater: Iuxpfc40-40 ( for 3 consecutive months): Chronic kidney disease 15 or less: Kidney failureAdventHealth Rollins BrookGlucose tqflgiggxwt9609-50-75 05:10:00* Test Item Value Reference Range Interpretation Comments Glucose Level (test code = DKL1140) 83 74-118 [facility]er[facility] or plasma calcium measurement (mass/volume)2019-08-16 05:10:00* Test Item Value Reference Range Interpretation Comments Calcium Level (test code = 84098-4) 8.0 8.4-10.2 [facility] Hospitaler[facility] or plasma total bilirubin measurement (mass/volume)2019-08-16 05:10:00* Test Item Value Reference Range Interpretation Comments Total Bilirubin (test code = 1975-2) 2.3 0.2-1.2 [facility] BrookFluoroscopic procedure less than one hour uvgxwtid0305-33-28 05:10:00* Test Item Value Reference Range Interpretation Comments Aspartate Amino Transf (AST/SGOT) (test code = Aspartate Amino Transf (AST/SGOT)) 56 5-34 [facility] Hospitalerum or plasma alanine aminotransferase measurement (enzymatic activity/volume)2019-08-16 05:10:00* Test Item Value Reference Range Interpretation Comments Alanine Aminotransferase (ALT/SGPT) (test code = 1742-6) 20 0-55 [facility] BrookAmmonia Ibm-zZxp8707-75-05 05:10:00* Test Item Value Reference Range Interpretation Comments Ammonia (test code = 33075-5) 75 31-123 [facility] or plasma protein measurement (mass/volume)2019-08-16 05:10:00* Test Item Value Reference Range Interpretation Comments Total Protein (test code = 2885-2) 7.9 6.5-8.1 [facility] Hospitaler[facility] or plasma albumin measurement (mass/volume)2019-08-16 05:10:00* Test Item Value Reference Range Interpretation Comments Albumin (test code = 1751-7) 2.7 3.5-5.0 [facility] BrookPlasma globulin measurement (mass/volume) 2019-08-16 05:10:00* Test Item Value Reference Range Interpretation Comments Globulin (test code = 64466-0) 5.2 2.3-3.5 [facility]er[facility] or plasma albumin/globulin mass dmtvu0001-71-81 05:10:00* Test Item Value Reference Range Interpretation Comments Albumin/Globulin Ratio (test code = 1759-0) 0.5 0.8-2.0 [facility]er[facility] plasma alkaline phosphatase measurement (enzymatic activity/volume)2019-08-16 05:10:00* Test Item Value Reference Range Interpretation Comments Alkaline Phosphatase (test code = 6768-6) 74 40-150 [facility]er[facility] or plasma lipase measurement (enzymatic activity/volume)2019-08-16 05:10:00* Test Item Value Reference Range Interpretation Comments Lipase (test code = 3040-3) 24 8-78 [facility] Hospitaltool gastrointestinal hemoglobin wzoqoiqlo4392-38-68 20:05:00* Test Item Value Reference Range Interpretation Comments Stool Occult Blood (test code = 2335-8) NEGATIVE NEGATIVE [facility] Hospitalto gastrointestinal hemoglobin xanyshqer5918-41-72 20:05:00* Test Item Value Reference Range Interpretation Comments Stool Occult Blood (test code = 2335-8) NEGATIVE NEGATIVE [facility] gastrointestinal hemoglobin gxronggnc9834-28-36 20:05:00* Test Item Value Reference Range Interpretation Comments Stool Occult Blood (test code = 2335-8) NEGATIVE NEGATIVE [facility] polychromasia detection by light jyeknmlzdw4044-84-36 05:15:00* Test Item Value Reference Range Interpretation Comments Polychromasia (test code = 75784-1) FEW [facility]Blood anisocytosis detection by light jeapnlrnnv8555-51-50 05:15:00* Test Item Value Reference Range Interpretation Comments Anisocytosis (test code = 702-1) MODERATE [facility] BrookBlood ovalocytes detection by light mxcjajoszq7869-32-24 05:15:00* Test Item Value Reference Range Interpretation Comments Ovalocytes (test code = 774-0) MODERATE [facility] BrookRBC gspubfvbfw2588-23-90 05:15:00* Test Item Value Reference Range Interpretation Comments Red Cell Morphology Comment (test code = 6742-1) ABNORMAL [facility] plasma magnesium measurement (mass/volume)2019-08-15 05:15:00* Test Item Value Reference Range Interpretation Comments Magnesium Level (test code = 52503-8) 1.6 1.3-2.1 [facility] Hospitalerum or plasma creatine kinase measurement (enzymatic activity/volume)2019-08-15 05:15:00* Test Item Value Reference Range Interpretation Comments Creatine Kinase (test code = 2157-6) 253 30-200 [facility] BrookUrine color hjfabwtpbmfgl2576-66-09 08:54:00* Test Item Value Reference Range Interpretation Comments Urine Color (test code = 5778-6) YELLOW YELLOW [facility] BrookUrine rxhrnap4029-67-39 08:54:00* Test Item Value Reference Range Interpretation Comments Urine Clarity (test code = 06331-4) CLEAR CLEAR [facility] Hospitalpecific gravity of Urine by Test strip 2019-08-14 08:54:00* Test Item Value Reference Range Interpretation Comments Urine Specific [place] (test code = 5811-5) 1.015 1.010-1.02 5 [facility] BrookUrine pH measurement by automated test ptyha2685-13-13 08:54:00* Test Item Value Reference Range Interpretation Comments Urine pH (test code = 55108-9) 7 5-7 [facility] Brook[facility]rine leukocyte esterase detection by ajrvwgch0606-15-74 08:54:00* Test Item Value Reference Range Interpretation Comments Urine Leukocyte Esterase (test code = 5799-2) NEGATIVE NEGATIVE [facility] BrookUrine nitrite rkiqxlaoy5024-77-70 08:54:00* Test Item Value Reference Range Interpretation Comments Urine Nitrite (test code = 99986-4) NEGATIVE NEGATIVE [facility] BrookUrine protein measurement by test strip (mass/volume)2019-08-14 08:54:00* Test Item Value Reference Range Interpretation Comments Urine Protein (test code = 5804-0) NEGATIVE NEGATIVE [facility] BrookUrine glucose yfssnjdxq2413-13-13 08:54:00* Test Item Value Reference Range Interpretation Comments Urine Glucose (UA) (test code = 2349-9) NEGATIVE NEGATIVE [facility] BrookUrine ketones detection by automated test hyfyf7356-65-95 08:54:00* Test Item Value Reference Range Interpretation Comments Urine Ketones (test code = 31045-4) NEGATIVE NEGATIVE [facility] BrookUrine opiates screening ynab6049-85-97 08:54:00* Test Item Value Reference Range Interpretation Comments Urine Opiates Screen (test code = 09201-8) NEGATIVE NEGATIVE ALL TESTS PERFORMED MANUALLY ON [email or web address] TOX/SEE TESTAdventHealth Rollins BrookBarbiturates screen, fphac8326-08-33 08:54:00* Test Item Value Reference Range Interpretation Comments Urine Barbiturates Screen (test code = 144416023) NEGATIVE NEGA TIVE [facility] BrookUrine phencyclidine detection by screening jwhiqy8648-84-57 08:54:00* Test Item Value Reference Range Interpretation Comments Urine Phencyclidine Screen (test code = 02016-8) NEGATIVE NEGAT ELSIE [facility] BrookUrine amphetamines detection by screen method > 1000 ng/mN5466-35-82 08:54:00* Test Item Value Reference Range Interpretation Comments Urine Amphetamines Screen (test code = 10732-7) NEGATIVE NEGATI VE [facility] BrookFluoroscopic procedure less than one hour aeexzahc4513-45-01 08:54:00* Test Item Value Reference Range Interpretation Comments Urine Methamphetamines Screen (test code = Urine Metha mphetamines Screen) NEGATIVE NEGATIVE [facility] BrookUrine benzodiazepines detection by screening nuihvw2794-65-76 08:54:00* Test Item Value Reference Range Interpretation Comments Urine Benzodiazepines Screen (test code = 11984-4) NEGATIVE NEG ATIVE [facility] BrookUrine cocaine measurement (mass/volume) 2019-08-14 08:54:00* Test Item Value Reference Range Interpretation Comments Urine Cocaine Screen (test code = 3398-5) NEGATIVE NEGATIVE [facility] BrookUrine cannabinoids detection by screening yjkpaf4180-78-67 08:54:00* Test Item Value Reference Range Interpretation Comments Urine Cannabinoids Screen (test code = 51008-9) NEGATIVE NEGATI VE THESE RESULTS ARE FOR MEDICAL TREATMENT ONLYTHIS REPORT CONTAINS UNCONFIR MED SCREENING RESULTS*POSITIVE RESULTS WILL BE CONFIRMED BY REFERENCE LAB UPON R EQUEST CUT-OFFDRUG CLASS CONCENTRATION ng/mLAmphetamines 1000Methamphetamines 1000Cocaine 300Opiate 300Phencyc lidine 25Cannabinoid 50Barbiturates 300Benzodiazepine 300Methadone 300[facility] BrookUrine methadone zcnjkj5558-27-42 08:54:00* Test Item Value Reference Range Interpretation Comments Urine Methadone Screen (test code = 40395-6) NEGATIVE NEGATIVE THESE RESULTS ARE FOR MEDICAL TREATMENT ONLYTHIS REPORT CONTAINS UNCONFIR MED SCREENING RESULTS*POSITIVE RESULTS WILL BE CONFIRMED BY REFERENCE LAB UPON R EQUEST CUT-OFFDRUG CLASS CONCENTRATION ng/mLAmphetamines 1000Methamphetamines 1000Cocaine Metabolite 300Opiate 300Phencyc lidine 25Cannabinoid 50Barbiturates 300Benzodiazepine 300Methadone 300[facility] BrookUrine urobilinogen measurement by test strip (mass/volume)2019-08-14 08:54:00* Test Item Value Reference Range Interpretation Comments Urine Urobilinogen (test code = 82215-0) 0.2 0.2-1 [facility] BrookUrine total bilirubin measurement (mass/volume)2019-08-14 08:54:00* Test Item Value Reference Range Interpretation Comments Urine Bilirubin (test code = 1978-6) NEGATIVE NEGATIVE [facility] BrookUrine erythrocytes jcfjbdims9963-23-98 08:54:00* Test Item Value Reference Range Interpretation Comments Urine Blood (test code = 55609-6) MODERATE NEGATIVE [facility] BrookAutomated urine sediment leukocyte count by microscopy (number/high power field)2019-08-14 08:54:00* Test Item Value Reference Range Interpretation Comments Urine WBC (test code = 5821-4) 21-50 0-5 [facility] BrookErythrocytes detection in urine sediment by light gzqiyltpbg3052-74-11 08:54:00* Test Item Value Reference Range Interpretation Comments Urine RBC (test code = 71706-2) >50 0-5 [facility] BrookBacteria detection in urine sediment by light scoxsoeftd8889-98-98 08:54:00* Test Item Value Reference Range Interpretation Comments Urine Bacteria (test code = 64651-0) FEW NONE [facility] BrookEpithelial cells detection in urine sediment by light djlbqcnoho1162-97-34 08:54:00* Test Item Value Reference Range Interpretation Comments Urine Epithelial Cells (test code = 21084-8) MANY NONE [facility] BrookFluoroscopic procedure less than one hour wjorelbl7445-76-85 08:54:00* Test Item Value Reference Range Interpretation [...] complexity tests.Testing performed by [facility] [address] [place], [place] [phone] Director: Francisco Javier Barth M.D.CLIA # [id number] Rollins Brook Bacterial urine gagsmtv9662-65-74 08:54:00* Test Item Value Reference Range Interpretation Comments Urine Culture (test code = 630-4) ENTEROCOCCUS FAECALIS [facility] BrookUrine opiates screening bxdc0799-51-21 08:54:00* Test Item Value Reference Range Interpretation Comments Urine Opiates Screen (test code = 21279-5) NEGATIVE NEGATIVE ALL TESTS PERFORMED MANUALLY ON [email or web address] TOX/SEE TESTAdventHealth Rollins BrookBarbiturates screen, bkxpi2648-87-83 08:54:00* Test Item Value Reference Range Interpretation Comments Urine Barbiturates Screen (test code = 250762276) NEGATIVE NEGA TIVE [facility] BrookUrine phencyclidine detection by screening jipizl3403-86-42 08:54:00* Test Item Value Reference Range Interpretation Comments Urine Phencyclidine Screen (test code = 68939-4) NEGATIVE NEGAT ELSIE [facility] BrookUrine amphetamines detection by screen method > 1000 ng/fM0220-87-25 08:54:00* Test Item Value Reference Range Interpretation Comments Urine Amphetamines Screen (test code = 61705-0) NEGATIVE NEGATI VE [facility] BrookFluoroscopic procedure less than one hour fdtczmft6105-58-28 08:54:00* Test Item Value Reference Range Interpretation Comments Urine Methamphetamines Screen (test code = Urine Metha mphetamines Screen) NEGATIVE NEGATIVE [facility] BrookUrine benzodiazepines detection by screening lufgxu2515-93-83 08:54:00* Test Item Value Reference Range Interpretation Comments Urine Benzodiazepines Screen (test code = 94948-6) NEGATIVE NEG ATIVE [facility] BrookUrine cocaine measurement (mass/volume) 2019-08-14 08:54:00* Test Item Value Reference Range Interpretation Comments Urine Cocaine Screen (test code = 3398-5) NEGATIVE NEGATIVE [facility] BrookUrine cannabinoids detection by screening lrrmyo0441-28-75 08:54:00* Test Item Value Reference Range Interpretation Comments Urine Cannabinoids Screen (test code = 24529-9) NEGATIVE NEGATI VE THESE RESULTS ARE FOR MEDICAL TREATMENT ONLYTHIS REPORT CONTAINS UNCONFIR MED SCREENING RESULTS*POSITIVE RESULTS WILL BE CONFIRMED BY REFERENCE LAB UPON R EQUEST CUT-OFFDRUG CLASS CONCENTRATION ng/mLAmphetamines 1000Methamphetamines 1000Cocaine 300Opiate 300Phencyc lidine 25Cannabinoid 50Barbiturates 300Benzodiazepine 300Methadone 300[facility] HospitalUrine methadone pyrlhv3464 08:54:00* Test Item Value Reference Range Interpretation Comments Urine Methadone Screen (test code = 86011-5) NEGATIVE NEGATIVE THESE RESULTS ARE FOR MEDICAL TREATMENT ONLYTHIS REPORT CONTAINS UNCONFIR MED SCREENING RESULTS*POSITIVE RESULTS WILL BE CONFIRMED BY REFERENCE LAB UPON R EQUEST CUT-OFFDRUG CLASS CONCENTRATION ng/mLAmphetamines 1000Methamphetamines 1000Cocaine Metabolite 300Opiate 300Phencyc lidine 25Cannabinoid 50Barbiturates 300Benzodiazepine 300Methadone 300[facility] BrookBacterial urine rpknqov3974-34-83 08:54:00* Test Item Value Reference Range Interpretation Comments Urine Culture (test code = 630-4) ENTEROCOCCUS FAECALIS [facility] BrookUrine opiates screening nqfa6308-88-74 08:54:00* Test Item Value Reference Range Interpretation Comments Urine Opiates Screen (test code = 11559-8) NEGATIVE NEGATIVE ALL TESTS PERFORMED MANUALLY ON [email or web address] TOX/SEE TESTAdventHealth Rollins BrookBarbiturates screen, tgkbk8643-38-82 08:54:00* Test Item Value Reference Range Interpretation Comments Urine Barbiturates Screen (test code = 698243720) NEGATIVE NEGA TIVE [facility] BrookUrine phencyclidine detection by screening grypvo9898-15-26 08:54:00* Test Item Value Reference Range Interpretation Comments Urine Phencyclidine Screen (test code = 49431-3) NEGATIVE NEGAT ELSIE [facility] BrookUrine amphetamines detection by screen method > 1000 ng/vS2506-01-50 08:54:00* Test Item Value Reference Range Interpretation Comments Urine Amphetamines Screen (test code = 69461-0) NEGATIVE NEGATI VE [facility] BrookFluoroscopic procedure less than one hour oqtezjlo6289-02-52 08:54:00* Test Item Value Reference Range Interpretation Comments Urine Methamphetamines Screen (test code = Urine Metha mphetamines Screen) NEGATIVE NEGATIVE [facility] BrookUrine benzodiazepines detection by screening lsyjkk9562-62-12 08:54:00* Test Item Value Reference Range Interpretation Comments Urine Benzodiazepines Screen (test code = 33820-4) NEGATIVE NEG ATIVE [facility] BrookUrine cocaine measurement (mass/volume) 2019-08-14 08:54:00* Test Item Value Reference Range Interpretation Comments Urine Cocaine Screen (test code = 3398-5) NEGATIVE NEGATIVE [facility] BrookUrine cannabinoids detection by screening csakag8905-91-39 08:54:00* Test Item Value Reference Range Interpretation Comments Urine Cannabinoids Screen (test code = 15036-1) NEGATIVE NEGATI VE THESE RESULTS ARE FOR MEDICAL TREATMENT ONLYTHIS REPORT CONTAINS UNCONFIR MED SCREENING RESULTS*POSITIVE RESULTS WILL BE CONFIRMED BY REFERENCE LAB UPON R EQUEST CUT-OFFDRUG CLASS CONCENTRATION ng/mLAmphetamines 1000Methamphetamines 1000Cocaine 300Opiate 300Phencyc lidine 25Cannabinoid 50Barbiturates 300Benzodiazepine 300Methadone 300[facility] HospitalUrine methadone ukmdrz7677-87-11 08:54:00* Test Item Value Reference Range Interpretation Comments Urine Methadone Screen (test code = 28960-8) NEGATIVE NEGATIVE THESE RESULTS ARE FOR MEDICAL TREATMENT ONLYTHIS REPORT CONTAINS UNCONFIR MED SCREENING RESULTS*POSITIVE RESULTS WILL BE CONFIRMED BY REFERENCE LAB UPON R EQUEST CUT-OFFDRUG CLASS CONCENTRATION ng/mLAmphetamines 1000Methamphetamines 1000Cocaine Metabolite 300Opiate 300Phencyc lidine 25Cannabinoid 50Barbiturates 300Benzodiazepine 300Methadone 300[facility] HospitalBacterial urine zgpkfwy3596-20-54 08:54:00* Test Item Value Reference Range Interpretation Comments Urine Culture (test code = 630-4) ENTEROCOCCUS FAECALIS [facility]PELVIS O8951-45-78 08:48:00 [facility] [address] [address] Patient Name: JOCELIN CORREA MR #: [id number] : 1970 Age/Sex: 49/M Req #: [id number] [facility] Physician: Ordered by: ABA LOYA MD Report #: [id number] Location: ER Room/Bed: Procedure: [id number] CT/CT A BDOMEN/PELVIS W Exam Date: 08/14/19 [...] COPY TO: ABA LOYA MD CT BRAIN PK7325-32-24 08:33:00 [place] [address] Patient Name: JOCELIN CORREA MR #: [id number] : 1970 Age/Sex: 49/M Req #: [id number] Adm Physician: Ordered by: GOLDEN WANG MD Rep ort #: [id number] Location: ER Room/B ed: Procedure: [id number] CT/CT BRAIN WO Exam Date: 08/14/19 Exam [...] MD Blood platelet clump detection by light rfvcrceujd0313-29-89 05:25:00* Test Item Value Reference Range Interpretation Comments Clumped Platelets (test code = 7796-6) NONE [facility]ONE [facility] po[facility]ilocytosis [facility] by light phwdgjryaf5021-12-37 05:25:00* Test Item Value Reference Range Interpretation Comments Poikilocytosis (test code = 779-9) [facility]IGHT [facility] creatine kinase MB measurement (mass/volume)2019-08-14 05:25:00* Test Item Value Reference Range Interpretation Comments Creatine Kinase MB (test code = 73944-2) 2.60 0-5.0 [facility] BrookTroponin I measurement by highly sensitive enzyme cddnmstjpxc6397-72-91 05:25:00* Test Item Value Reference Range Interpretation Comments Troponin I (test code = 13252-2) 0.008 0-0.300 [facility] plasma amylase measurement (enzymatic activity/volume)2019-08-14 05:25:00* Test Item Value Reference Range Interpretation Comments Amylase Level (test code = 1798-8) 98 25-125 [facility] plasma acetaminophen measurement by screening method (mass/volume)2019-08-14 05:25:00* Test Item Value Reference Range Interpretation Comments Acetaminophen Level (test code = 97314-7) < 3.0 10-30 [facility] or plasma ethanol measurement (mass/volume)2019-08-14 05:25:00* Test Item Value Reference Range Interpretation Comments Ethyl Alcohol Level (test code = 5643-2) 301.6 0.0-10.0 [facility] platelet clump detection by light kmzushlcft1380-27-17 05:25:00* Test Item Value Reference Range Interpretation Comments Clumped Platelets (test code = 7796-6) NONE NONE [facility] poikilocytosis detection by light lsulhwdwui6849-87-59 05:25:00* Test Item Value Reference Range Interpretation Comments Poikilocytosis (test code = 779-9) SLIGHT [facility] plasma acetaminophen measurement by screening method (mass/volume)2019-08-14 05:25:00* Test Item Value Reference Range Interpretation Comments Acetaminophen Level (test code = 97720-5) < 3.0 10-30 [facility] plasma ethanol measurement (mass/volume)2019-08-14 05:25:00* Test Item Value Reference Range Interpretation Comments Ethyl Alcohol Level (test code = 5643-2) 301.6 0.0-10.0 [facility] platelet clump detection by light mxizmyqvze6163-12-47 05:25:00* Test Item Value Reference Range Interpretation Comments Clumped Platelets (test code = 7796-6) NONE NONE [facility] poikilocytosis detection by light qxyulcvenx9903-06-96 05:25:00* Test Item Value Reference Range Interpretation Comments Poikilocytosis (test code = 779-9) SLIGHT [facility] plasma acetaminophen measurement by screening method (mass/volume)2019-08-14 05:25:00* Test Item Value Reference Range Interpretation Comments Acetaminophen Level (test code = 88596-6) < 3.0 10-30 [facility] plasma ethanol measurement (mass/volume)2019-08-14 05:25:00* Test Item Value Reference Range Interpretation Comments Ethyl Alcohol Level (test code = 5643-2) 301.6 0.0-10.0 [facility] Brook[facility]roid stimulating hormone, serum 2019-03-28 10:04:00* Test Item Value Reference Range Interpretation Comments thyroid stimulating hormone, serum (test code = 3016-3) 1.92 0 u[iU]/mL 0.450-4.500 [facility] cholesterol, twqkd1044-79-40 10:04:00* Test Item Value Reference Range Interpretation Comments LDL cholesterol, serum (test code = 2089-1) 63 mg/dL 0-99 [facility] density nskhmnqlluxx0194-24-06 10:04:00* Test Item Value Reference Range Interpretation Comments very low density lipoproteins (test code = 2091-7) 10 mg/dL 5-4 0 [facility] HospitalHDL cholesterol, wpfqs1155-10-49 10:04:00* Test Item Value Reference Range Interpretation Comments HDL cholesterol, serum (test code = 2085-9) 50 mg/dL >39 [facility] Hospitaltriglyceride, serum, mrekstk6439-40-77 10:04:00* Test Item Value Reference Range Interpretation Comments triglyceride, serum, fasting (test code = 2571-8) 48 mg/dL 0-14 9 [facility] Hospitalcholesterol, wcagi2266-38-18 10:04:00* Test Item Value Reference Range Interpretation Comments cholesterol, serum (test code = 2093-3) 123 mg/dL 100-199 [facility] Hospitalbacteria, urine fqkukmlidb2276-23-33 10:04:00* Test Item Value Reference Range Interpretation Comments bacteria, urine microscopy (test code = 5769-5) None seen None s een/Few [facility] Frictionless Commercecast type, bfrlewwbxj1616-18-22 10:04:00* Test Item Value Reference Range Interpretation Comments cast type, urinalysis (test code = 74715) Hyaline casts N/A [facility] Frictionless Commercecasts, ecrzj1741-45-80 10:04:00* Test Item Value Reference Range Interpretation Comments casts, urine (test code = 5626) Present None seen A [facility] Hospitalepithelial cells, xsbbl0572-21-37 10:04:00* Test Item Value Reference Range Interpretation Comments epithelial cells, urine (test code = 5787-7) 0-10 0-10 [facility] Frictionless CommerceRBC, Hvntd3284-16-51 10:04:00* Test Item Value Reference Range Interpretation Comments RBC, Urine (test code = 08401-2) 3-10 /hpf 0-2 A [facility] on gexxxxvpqa0418-14-52 10:04:00* Test Item Value Reference Range Interpretation Comments WBC urine on microscopy (test code = 1016) 0-5 /hpf 0-5 [facility] Hospitalurinalysis, microscopic dkehaolvuew8782-34-34 10:04:00* Test Item Value Reference Range Interpretation Comments urinalysis, microscopic examination (test code = 44704-0) See below : [facility] Hospitalnitrate, yrqpm5759-46-20 10:04:00* Test Item Value Reference Range Interpretation Comments nitrate, urine (test code = 41134-7) Negative Negative [facility] Hospitalurobilinogen, urine, semiquantitative (dipstick) 2019-03-28 10:04:00* Test Item Value Reference Range Interpretation Comments urobilinogen, urine, semiquantitative (dipstick) (test code = 5818-0) 0.2 0.2-1.0 [facility] Hospitalbilirubin, afzhu9662-08-56 10:04:00* Test Item Value Reference Range Interpretation Comments bilirubin, urine (test code = 5770-3) Negative Negative [facility] Hospitalketones, urine, by test gsyvn3123-53-28 10:04:00* Test Item Value Reference Range Interpretation Comments ketones, urine, by test strip (test code = 5797-6) Negative Neg ative [facility] Hospitalglucose, urine, nkecwdmjnkxxgcrb1233-72-42 10:04:00* Test Item Value Reference Range Interpretation Comments glucose, urine, semiquantitative (test code = 5792-7) Negative Negative [facility] Hospitalprotein, urine, semiquantitative (dipstick)2019-03-28 10:04:00* Test Item Value Reference Range Interpretation Comments protein, urine, semiquantitative (dipstick) (test code = 175 3-3) Negative Negative/Trace [facility] Hospitalleukocyte esterase, urine, by ayxdkjrc6527-39-24 10:04:00 * Test Item Value Reference Range Interpretation Comments leukocyte esterase, urine, by dipstick (test code = 5799-2) Negativ e Negative [facility] Hospitalappearance, gnqjx6517-45-46 10:04:00* Test Item Value Reference Range Interpretation Comments appearance, urine (test code = 5767-9) Clear Clear [facility] Hospitalurine absiq2120-12-33 10:04:00* Test Item Value Reference Range Interpretation Comments urine color (test code = 5778-6) Yellow Yellow [facility] HospitalpH, urine, pmjvlhcylofrkzhf3369-06-57 10:04:00* Test Item Value Reference Range Interpretation Comments pH, urine, semiquantitative (test code = 5803-2) 7.5 5.0-7 .5 [facility] Hospitalspecific gravity, body kvzmf9935-40-80 10:04:00* Test Item Value Reference Range Interpretation Comments specific gravity, body fluid (test code = 2964-5) 1.008 1.00 5-1.030 [facility] Hospitalalanine aminotransferase (SGPT), saubm3588-04-14 10:04:00 * Test Item Value Reference Range Interpretation Comments alanine aminotransferase (SGPT), serum (test code = 1742-6) 17 1/L 0-44 [facility] Hospitalaspartate aminotransferase (SGOT), zcojy3239-60-50 10:04:00* Test Item Value Reference Range Interpretation Comments aspartate aminotransferase (SGOT), serum (test code = 1920-8) 34 1/ L 0-40 [facility] Hospitalalkaline phosphatase, pglxz5447-58-36 10:04:00* Test Item Value Reference Range Interpretation Comments alkaline phosphatase, serum (test code = 1783-0) 72 1/L 39-11 7 [facility] Hospitalbilirubin, serum, tupgl8681-96-75 10:04:00* Test Item Value Reference Range Interpretation Comments bilirubin, serum, total (test code = 1975-2) 1.3 mg/dL 0.0-1.2 H [facility] Hospitalalbumin/globulin ratio, tneyy5006-07-61 10:04:00* Test Item Value Reference Range Interpretation Comments albumin/globulin ratio, serum (test code = 1759-0) 0.6 1.2 -2.2 L [facility] Hospitalglobulin, cyqkj4322-26-04 10:04:00* Test Item Value Reference Range Interpretation Comments globulin, serum (test code = 2336-6) 5.7 1.5-4.5 H [facility] Hospitalalbumin, tikvo9302-64-39 10:04:00* Test Item Value Reference Range Interpretation Comments albumin, serum (test code = 1751-7) 3.3 g/dL 3.5-5.5 L [facility] Hospitalprotein, total, ktaqn0041-09-06 10:04:00* Test Item Value Reference Range Interpretation Comments protein, total, serum (test code = 2885-2) 9.0 g/dL 6.0-8.5 H [facility] Healthcalcium, zmhpp4120-69-53 10:04:00* Test Item Value Reference Range Interpretation Comments calcium, serum (test code = 2000-8) 8.2 mg/dL 8.7-10.2 L [facility] Hospitalcarbon dioxide, venous kjbbt1260-59-39 10:04:00* Test Item Value Reference Range Interpretation Comments carbon dioxide, venous blood (test code = 202-1) 23 mmol/L 20-2 9 [facility] Healthchloride, lqdjd6699-98-59 10:04:00* Test Item Value Reference Range Interpretation Comments chloride, serum (test code = 2075-0) 94 mmol/L 96-106 L [facility] Healthpotassium, ogixr0309-99-85 10:04:00* Test Item Value Reference Range Interpretation Comments potassium, serum (test code = 2823-3) 3.8 mmol/L 3.5-5.2 [facility] Hospitalsodium, axpdu8638-74-69 10:04:00* Test Item Value Reference Range Interpretation Comments sodium, serum (test code = 2951-2) 134 mmol/L 134-144 [facility] Hospitalurea nitrogen/creatinine ratio, kyizg8047-61-46 10:04:00 * Test Item Value Reference Range Interpretation Comments urea nitrogen/creatinine ratio, serum (test code = 3097-3) 15 9-20 [facility] HealtheGFR if Otcdqqao9695-11-01 10:04:00* Test Item Value Reference Range Interpretation Comments eGFR if (test code = 88711-0) 66 mL/min/((173/100) .m2) >59 [facility] HospitalEstimated Glomerular Filtration Rate (calc)2019-03-28 10:04:00* Test Item Value Reference Range Interpretation Comments Estimated Glomerular Filtration Rate (calc) (test code = 31336-3) 57 mL/min/((173/100).m2) >59 L [facility] Hospitalcreatinine, wmkik7511-23-79 10:04:00* Test Item Value Reference Range Interpretation Comments creatinine, serum (test code = 2160-0) 1.44 mg/dL 0.76-1.27 H [facility] Hospitalurea nitrogen, aqjdw7441-93-63 10:04:00* Test Item Value Reference Range Interpretation Comments urea nitrogen, blood (test code = 3094-0) 21 mg/dL 6-24 [facility] Hospitalblood glucose, zqkrrb4819-12-06 10:04:00* Test Item Value Reference Range Interpretation Comments blood glucose, random (test code = 2339-0) 104 mg/dL 65-99 H [facility] Hospitalimmature granulocytes, percentage of total cells, blood 2019-03-28 10:04:00* Test Item Value Reference Range Interpretation Comments immature granulocytes, percentage of total cells, bloo d (test code = 43906-7) 0 % [facility] Hospitalbasophil count, yencfrvj6097-80-95 10:04:00* Test Item Value Reference Range Interpretation Comments basophil count, absolute (test code = 61198-3) 0.0 x10E3/uL 0.0-0.2 [facility] HospitalEosinophil Absolute Rsxji5013-29-12 10:04:00* Test Item Value Reference Range Interpretation Comments Eosinophil Absolute Count (test code = 90179-7) 0.5 X10E3/UL 0.0-0. 4 H [facility] Hospitalmonocyte count, blood, aztkjwtql3391-44-35 10:04:00* Test Item Value Reference Range Interpretation Comments monocyte count, blood, automated (test code = 742-7) 0.8 X10E3/UL 0 .1-0.9 [facility] Hospitallymphocyte count, blood, levqrvyes3906-29-63 10:04:00* Test Item Value Reference Range Interpretation Comments lymphocyte count, blood, automated (test code = 731-0) 0.9 X10E3/UL 0.7-3.1 [facility] HospitalAbsolute Zpiunojxwqa4012-70-91 10:04:00* Test Item Value Reference Range Interpretation Comments Absolute Neutrophils (test code = 41292-4) 3.5 X10E3/UL 1.4-7.0 [facility] Hospitalbasophils as percent of blood bgacjgurjj2607-67-18 10:04:00* Test Item Value Reference Range Interpretation Comments basophils as percent of blood leukocytes (test code = 707-0) 1 % [facility] Hospitaleosinophils as percent of blood dlbpzdpsar2190-36-07 10:04:00* Test Item Value Reference Range Interpretation Comments eosinophils as percent of blood leukocytes (test code = 713-8) 9 % [facility] Healthmonocytes as percent of blood vgdxbkhifc5769-60-26 10:04:00* Test Item Value Reference Range Interpretation Comments monocytes as percent of blood leukocytes (test code = 5905-5) 13 % [facility] Hospitallymphocytes as percent of blood smjajfeedm2327-10-11 10:04:00* Test Item Value Reference Range Interpretation Comments lymphocytes as percent of blood leukocytes (test code = 736-9) 16 % [facility] Hospitalneutrophils as percent of blood bvtwrerrng8357-96-45 10:04:00* Test Item Value Reference Range Interpretation Comments neutrophils as percent of blood leukocytes (test code = 770-8) 61 % [facility] Hospitalplatelet vnkxt2707-35-81 10:04:00* Test Item Value Reference Range Interpretation Comments platelet count (test code = 777-3) 102 X10E3/UL 150-450 L [facility] Hospitalred blood cell distribution jwcyf2259-96-56 10:04:00* Test Item Value Reference Range Interpretation Comments red blood cell distribution width (test code = 788-0) 20.5 % 11.6-15.4 H [facility] corpuscular hemoglobin concentration, HZK9556-64-47 10:04:00* Test Item Value Reference Range Interpretation Comments mean corpuscular hemoglobin concentration, RBC (test code = 786-4) 28.8 G/DL 31.5-35.7 L [facility] corpuscular hemoglobin, VLN9214-74-56 10:04:00* Test Item Value Reference Range Interpretation Comments mean corpuscular hemoglobin, RBC (test code = 785-6) 22.4 pg 2 6.6-33.0 L [facility] corpuscular volume, DFW0931-14-70 10:04:00* Test Item Value Reference Range Interpretation Comments mean corpuscular volume, RBC (test code = 787-2) 78 fL 79-97 L [facility] Hospitalhematocrit, hxzws1163-81-59 10:04:00* Test Item Value Reference Range Interpretation Comments hematocrit, blood (test code = 4544-3) 32.3 % 37.5-51.0 L [facility] Hospitalhemoglobin, wogvg1421-91-85 10:04:00* Test Item Value Reference Range Interpretation Comments hemoglobin, blood (test code = 718-7) 9.3 g/dL 13.0-17.7 L [facility] Hospitalerythrocyte (RBC) sbpmw2959-78-33 10:04:00* Test Item Value Reference Range Interpretation Comments erythrocyte (RBC) count (test code = 789-8) 4.16 X10E6/UL 4.14-5.80 [facility] Hospitalleukocyte count, pkzka1333-88-57 10:04:00* Test Item Value Reference Range Interpretation Comments leukocyte count, blood (test code = 6690-2) 5.7 X10E3/UL 3.4-10.8 [facility] HealthCARDIAC UPZVHFG7891-91-49 17:40:00<0.02[facility] CHEM OCMIK9245-58-55 17:40:32510Xibxbivb MoajduqSGLICRPWYXIB4619-97-93 17:40:00 9.5[facility] NnydqnwDVQMDNTDZANN7400-19-36 17:40:00* Test Item Value Reference Range Interpretation Comments B/C Ratio (test code = B/C Ratio) 12 1 6-25 [facility] XoejvkuHAGHBBOZTKOG4026-98-84 17:40:006.2[facility] HermannELECTROLYTES 2019-02-26 17:40:00* Test Item Value Reference Range Interpretation Comments A/G Ratio (test code = A/G Ratio) 0.4 1 0.7-1.6 [facility] ZgsupwgIPSKNWLQJMJL2235-23-21 17:40:0086[facility] HermannELECTROLYTES 2019-02-26 17:40:0011[facility] ArglktfTGCFGPGWVBGI9665-85-37 17:40:000.92[facility] FiwhykhGWXHFANYSGMC3672-86-07 17:40:36191Vimrictc OxhfdfkPJVMLOEYBSLV1120-07-50 17:40:003.5[facility] HpaqvieWVMXBGCOWUSB6797-04-89 17:40:78072Ntrgxfvn Levon HLVYEAOQEEQC1721-15-94 17:40:0026[facility] KpwsrumQUBELJUDLWCT3907-94-89 17:40:00 8.3[facility] NguzoirQTUVMQKKDOUL8226-84-83 17:40:008.5[facility] FNVNVPKIMGWO2937-59-05 17:40:002.3[facility] GurezqnDGSXJWQHDNPO9049-28-47 17:40:0040[facility] WmbkpwzOTVSMFZCZOBS2214-45-26 17:40:87995[facility] BOUDZGGOLVXM7026-26-96 17:40:0073[facility] KntkpguREKMOFSVBOSF2020-20-13 17:40:00 0.7[facility] BcunhdpZQRNKIPPPMPL2756-59-41 17:40:0098[facility]annHEMATOLOGY 2019-02-26 17:40:00See Note (02/26/19 11:40 AM)[facility]annHEMATOLOGY 2019-02-26 17:40:00Normal (02/26/19 11:40 AM)[facility]annHEMATOLOGY 2019-02-26 17:40:0041.5[facility] NxlwtajAEIFGMFGSY0629-55-51 17:40:0032.8[facility] LtklugkWFBQCEROWL6557-49-38 17:40:0012.4[facility] SnqglktWMBYMLRUQV0274-33-72 17:40:0012.3[facility] GlasdxuKMSSZPTDCN6937-64-49 17:40:001.0[facility] YGOZKKPKFS1974-02-51 17:40:001.3[facility] CndnrccBBOOTHKREI9745-66-13 17:40:001.0 [facility] YfpofhgAORAFEMXGN1206-26-40 17:40:000.4[facility] HermannHEMATOLOGY 2019-02-26 17:40:000.4[facility] FbweqcoWLVPCAWNAH1873-05-48 17:40:001+ *ABN*(02/26/19 11:40 AM)[facility] UhrsdueBUXFDLFGND5521-89-25 17:40:001+ *ABN*(02/26/19 11:40 AM)[facility] OguzksdUHWQDETKQM6755-87-74 17:40:002+ (02/26/19 11:40 AM)[facility] JgtxcreEPCHURVEMM0216-39-41 17:40:003.1[facility] AzufwbrZSTDVZXOWU2635-57-39 17:40:003.80[facility] FomfstqDBOVGWWNJC0561-49-86 17:40:008.6[facility] WqtarbdATZHEYNEBS6179-16-32 17:40:0027.3[facility] XZCUQCWZEV6068-06-25 17:40:0072.0[facility] EsqswdwOCOBPEDTRV9303-88-99 17:40:00* Test Item Value Reference Range Interpretation Comments MCH (test code = MCH) 22.6 pg 27.0-31.0 [facility] CenterDxzdilhUEGXVDAUQS8239-68-89 17:40:0031.4[facility] HospitalannHEMATOLOGY 2019-02-26 17:40:0021.4[facility] FvxlelxCTDVVJHFMD8257-79-70 17:40:0043[facility] QkqgmdwFRRDZWSKNG9341-36-65 17:40:009.0MeohriJerold [facility]helps [facility] HospitalQmufhyuCCZDVMUQON4005-29-95 17:40:00* Test Item Value Reference Range Interpretation Comments PT (test code = PT) 15.4 s 12.0-14.7 [facility] CenterTkknzvaFGCVTTHUBD1837-20-28 17:40:00* Test Item Value Reference Range Interpretation Comments INR (test code = INR) 1.21 1 0.85-1.17 [facility] HospitalXsmzopySIZBVUSAHS1423-70-59 17:40:00* Test Item Value Reference Range Interpretation Comments PTT (test code = PTT) 32.4 s 22.9-35.8 [facility]URINAL[facility] SOVVSPAA0801-20-20 08:25:00* Test Item Value Reference Range Interpretation [...] Urine Source? Clean CatchDRUGS OF ABUSE SCREEN RK8709-85-14 08:25:00* Test Item Value Reference Range Interpretation [...] NEGATIVE <300 ng/mL Urine Source? Clean CatchURINALYSIS POROWIYP7269-14-62 08:14:00* Test Item Value Reference Range Interpretation [...] Urine Source? Clean CatchDRUGS OF ABUSE SCREEN XX5929-85-86 08:14:00* Test Item Value Reference Range Interpretation [...] Source? Clean Catch- CT ABD PELVIS W/O YKEE6996-56-45 08:02:00 Name: JOCELIN CORREA [facility] : 1970 Age/S: 48 / M [address] [facility] Unit #: [id number] Loc: [place] [address] Phys: Melania Roberts MD Acct: [id number] Di s Date: Status: REG ER PHONE #: Exam Date: 01/15/2019 0739 FAX #: Reason: abdominal pain EXAMS: CPT CODE: [id number] CT ABD PELVIS W/O CONT 94373 REASON FOR EXAM: abdomina l pain EXAM [...] 1 Signed Report (CONTINUED) Name: MICHELLE CORREA [facility] : 1970 Age/S : 48 / M [address] Unit #: [id number] Loc: [place] [address] Phys: Maryan Roberts MD Acct: [id number] Dis Date: Status: REG ER PHONE #: [phone] Ex am Date: 01/15/2019 07 FAX #: [phone] Reason: a bdominal pain EXAMS: CPT CODE: [id number] CT ABD PELVIS W/O CONT 30771 <Continued> Abdominal vascular structures: Grossly normal Peritoneum [...] with an ultrasound. Nonobstructing right-sided nephrolithiasis. Location: [facility] at 0802 Reported and signed by: Steve [...] CA) 8.8 mg/dL 8.5-10.1 N HEPATIC FUNCTION HXRBB3700-04-79 06:53:00* Test Item Value Reference Range Interpretation [...] reference range due to change in reagent. HOTFVV8750-74-36 06:53:00* Test Item Value Reference Range Interpretation Comments LIPASE (test code = LIP) 202 U/L 73.0-393.0 N NLKRGFYB-J1553-51-05 06:53:00* Test Item Value Reference Range Interpretation Comments TROPONIN-I (test code = TROPI) <0.015 ng/mL 0-0.045 N EFIECZT1069-26-65 06:53:00* Test Item Value Reference Range Interpretation Comments ALCOHOL (test code = ALC) 93 mg/dL 0.0-3.0 H -- INTERPRETIVE DATA NOTE: POSITIVE SCREENING RESULTS SHOULD BE CONSIDERED PRESUMPTIVE.WHEN COLLECTED FOR MEDICAL PURPOSES ONLY. SPECIMEN WILL NOTBE COLLECTED BY CHAIN OF CUSTODY.IF A CONFIRMATION OF POSITIVE RESULTS IS DESIRED, ACONFIRMATION TEST MUST BE REQUESTED BY THE PHYSICIAN AT ANADDITIONAL CHARGE TO THE PATIENT. WOXCHHI7352-38-73 06:52:00* Test Item Value Reference Range Interpretation Comments AMMONIA (test code = AMM) 83 umol/L 11-32 H CBC W/O HCIU7362-51-01 06:39:00* Test Item Value Reference Range Interpretation [...] 10.1 fL 6.7-11.0 N - US ABDOMEN UQXQPWBK0106-29-71 09:19:00 Name: CHELLY CORREA [facility] : 1970 Age/S: 48 / M [address] Unit #: [id number] Loc: [place] [address] Phys: González Nunez MD Acct: [id number] Dis Date: Status: REG CLI PHONE #: [phone] Exam Date: 12/25/2018 0855 FAX #: [phone] Reason: 571.5,K74.60,211.3,D12.6,V85.25,E66.3 EXAMS: CPT CODE: [id number] US ABDOMEN COMPLETE 13048 REASON FOR EXAM: 571.5,K7 4.60,211.3,D12.6,V85.25,E66.3 EXAM ORDER [...] 1 Signed Report (CONTINUED) Name: CHELLY CORREA [facility] : 1970 Age/S: 48 / M [address] [facility] Unit #: [id number] Loc: [place] [address] Phys: González Nunez MD Acct: [id number] Dis Date: Status: REG CLI PHONE #: [phone] Exam Date: 12/25/2018 0855 FAX #: [phone] Reason: 571.5,K74.60,211.3,D12.6,V85.25,E66.3 EXAMS: CPT CODE: [id number] US ABDOMEN COMPLETE 48876 < Continued> Left kidney: parenchyma echogenicity: Normal [...] 12/25/2018 (09) Probe: PAGE 2 Signed Report TVPFDR3118-61-16 16:26:00* Test Item Value Reference Range Interpretation Comments GLUBED (test code = GLUBED) 101 mg/dL 74-106 N Performed by certified scroll shear operator at [facility] CBC W/AUTO HLYH7605-95-96 09:15:00* Test Item Value Reference Range Interpretation [...] = MDIFF) NO, ONLY SCAN NEEDED DIFFERENTIAL ENVS1025-26-88 09:15:00* Test Item Value Reference Range Interpretation Comments STAIN ACCEPTABILITY (test code = STN ACCEPTABLE) STAIN ACCEPTABLE HYPOCHROMIA (test code = HYPO) 1+ ANISOCYTOSIS (test code = ANISO) 2+ MICROCYTOSIS (test code = MICR) 1+ MORPHOLOGY COMMENT (test code = MOC) NORMAL PLATELET ESTIMATE (test code = PLTEST) DECREASED COMPREHENSIVE METABOLIC [id number] 08:48:00* Test Item Value Reference Range Interpretation [...] FESAT) 5.80 % 13-45 L THYROID STIMULATING [id number] 08:48:00* Test Item Value Reference Range Interpretation Comments THYROID STIMULATING HORMONE (test code = TSH) 2.940 uIU/mL 0.36-3.7 4 N TSH REFERENCE RANGES: EUTHYROID: 0.35 - 4.3 mIU/mL HYPO : > 5.5 mIU/mL HYPER : < 0.35 mIU/mL [id number] 08:48:00* Test Item Value Reference Range Interpretation Comments FERRITIN (test code = GRABIEL) 12 ng/mL 8-388 N COMPREHENSIVE METABOLIC [id number] 08:19:00* Test Item Value Reference Range Interpretation [...] code = FESAT) % 13-45 THYROID STIMULATING [id number] 08:19:00* Test Item Value Reference Range Interpretation Comments THYROID STIMULATING HORMONE (test code = TSH) uIU/mL 0.36-3.7 4 [id number] 08:19:00* Test Item Value Reference Range Interpretation Comments FERRITIN (test code = GRABIEL) ng/mL 8-388 CBC W/AUTO [id number] 08:11:00* Test Item Value Reference Range Interpretation [...] = MDIFF) NO, ONLY SCAN NEEDED DIFFERENTIAL [id number] 08:11:00* Test Item Value Reference Range Interpretation Comments STAIN ACCEPTABILITY (test code = STN ACCEPTABLE) CABOT RINGS (test code = CAB) MORPHOLOGY COMMENT (test code = MOC) PLATELET ESTIMATE (test code = PLTEST) PLATELET MORPHOLOGY (test code = PLTMORPH) CBC W/AUTO [id number] 08:11:00* Test Item Value Reference Range Interpretation [...] = MDIFF) NO, ONLY SCAN NEEDED DIFFERENTIAL [id number] 08:11:00* Test Item Value Reference Range Interpretation Comments STAIN ACCEPTABILITY (test code = STN ACCEPTABLE) CABOT RINGS (test code = CAB) MORPHOLOGY COMMENT (test code = MOC) PLATELET ESTIMATE (test code = PLTEST) PLATELET MORPHOLOGY (test code = PLTMORPH) CBC W/AUTO [id number] 08:11:00* Test Item Value Reference Range Interpretation [...] = MDIFF) NO, ONLY SCAN NEEDED DIFFERENTIAL [id number] 08:11:00* Test Item Value Reference Range Interpretation Comments STAIN ACCEPTABILITY (test code = STN ACCEPTABLE) MORPHOLOGY COMMENT (test code = MOC) PLATELET ESTIMATE (test code = PLTEST) PLATELET MORPHOLOGY (test code = PLTMORPH) CBC W/AUTO [id number] 08:10:00* Test Item Value Reference Range Interpretation [...] = MDIFF) NO, ONLY SCAN NEEDED DIFFERENTIAL [id number] 08:10:00* Test Item Value Reference Range Interpretation Comments STAIN ACCEPTABILITY (test code = STN ACCEPTABLE) CABOT RINGS (test code = CAB) MORPHOLOGY COMMENT (test code = MOC) PLATELET ESTIMATE (test code = PLTEST) PLATELET MORPHOLOGY (test code = PLTMORPH) [id number] 08:09:00* Test Item Value Reference Range Interpretation Comments AMMONIA (test code = AMM) 89 umol/L 11-32 H [id number] 08:09:00* Test Item Value Reference Range Interpretation Comments GLYCOSYLATED HEMOGLOBIN (HA1C) (test code = GLYHGB) 5.0 % HbA1 4. 8-6.0 N ESTIMATED AVERAGE GLUCOSE (test code = EAG) 97 MG/DL [id number] 05:52:00* Test Item Value Reference Range Interpretation Comments GLUBED (test code = GLUBED) 100 mg/dL 74-106 N Performed by certified scroll shear operator at [facility] [id number] 20:26:00* Test Item Value Reference Range Interpretation Comments GLUBED (test code = GLUBED) 111 mg/dL 74-106 H Performed by certified scroll shear operator at [facility] PROTHROMBIN [id number] 15:38:00* Test Item Value Reference Range Interpretation [...] (2.5-3.5) IS PATIENT ON ANTICOAGULANTS? NTHROMBOPLASTIN TIME [id number] 15:38:00* Test Item Value Reference Range Interpretation Comments THROMBOPLASTIN TIME PARTIAL (test code = PTT) 36.6 seconds 25.0-36. 5 H IS PATIENT ON ANTICOAGULANTS? [id number] 14:10:00* Test Item Value Reference Range Interpretation Comments PHOSPHORUS (test code = PHOS) 3.3 mg/dL 2.5-4.9 N [id number] 14:10:00* Test Item Value Reference Range Interpretation Comments AMYLASE (test code = JUAN) 69 Unit/L 25-115 N [id number] 14:10:00* Test Item Value Reference Range Interpretation Comments LIPASE (test code = LIP) 116 U/L 73.0-393.0 N [id number] 14:10:00* Test Item Value Reference Range Interpretation Comments MAGNESIUM (test code = MAG) 2.3 mg/dL 1.8-2.4 N VITAMIN [id number] 14:10:00* Test Item Value Reference Range Interpretation Comments VITAMIN B12 (test code = VITB12) 776 pg/mL 193-986 N FOLIC [id number] 14:10:00* Test Item Value Reference Range Interpretation Comments FOLIC ACID (test code = FOL) 33.2 ng/mL 3.10-17.50 H [id number] 14:10:00* Test Item Value Reference Range Interpretation [...] TO THE PATIENT. - CT HEAD/BRAIN W/O [id number] 07:29:00 Name: JOCELIN CORREA [facility] : 1970 Age/S: 48 / M [address] [facility] Unit #: [id number] Loc: [place] [address] Phys: Lolis Parks DO Acct: [id number] Dis Date: Status: REG ER PHONE #: [phone] Exam Date: 12/06/2018 0635 FAX #: [phone] Reason: Altered Mental Status EXAMS: CPT CODE: [id number] CT HEAD/BRAIN W/O CONT 39095 HISTORY: Altered mental status TECHNIQUE: Noncontrast 2.5 [...] (07) ThanhLDP1 Orig Print D/T: S: 12/06/2018 (2535) PAGE 1 Signed Report CBC W/AUTO [id number] 07:26:00* Test Item Value Reference Range Interpretation [...] = MDIFF) NO, ONLY SCAN NEEDED DIFFERENTIAL [id number] 07:26:00* Test Item Value Reference Range Interpretation Comments STAIN ACCEPTABILITY (test code = STN ACCEPTABLE) STAIN ACCEPTABLE HYPOCHROMIA (test code = HYPO) 1+ ANISOCYTOSIS (test code = ANISO) 1+ MACROCYTOSIS (test code = MACR) 1+ PLATELET ESTIMATE (test code = PLTEST) DECREASED PLATELET MORPHOLOGY (test code = PLTMORPH) SIZE VARIABLE URINALYSIS [id number] 07:12:00* Test Item Value Reference Range Interpretation [...] Urine Source? Clean CatchDRUGS OF ABUSE SCREEN [id number] 07:12:00* Test Item Value Reference Range Interpretation [...] NEGATIVE <300 ng/mL Urine Source? Clean CatchURINALYSIS [id number] 07:08:00* Test Item Value Reference Range Interpretation [...] Urine Source? Clean CatchDRUGS OF ABUSE SCREEN [id number] 07:08:00* Test Item Value Reference Range Interpretation [...] [place]) <300 ng/mL Urine Source? Clean CatchURINALYSIS [id number] 07:01:00* Test Item Value Reference Range Interpretation [...] Urine Source? Clean CatchDRUGS OF ABUSE SCREEN [id number] 07:01:00* Test Item Value Reference Range Interpretation [...] <300 ng/mL Urine Source? Clean CatchBASIC METABOLIC [id number] 06:46:00* Test Item Value Reference Range Interpretation [...] CA) 8.5 mg/dL 8.5-10.1 N HEPATIC FUNCTION [id number] 06:46:00* Test Item Value Reference Range Interpretation [...] reference range due to change in reagent. [id number] 06:46:00* Test Item Value Reference Range Interpretation Comments TROPONIN-I (test code = TROPI) <0.015 ng/mL 0-0.045 N [id number] 06:46:00* Test Item Value Reference Range Interpretation Comments ACETAMINOPHEN (test code = ACET) < 10 mcg/mL 10-30 L A RANGE OF 10-30 mcg/mL IS A THERAPEUTIC RANGE. TOXIC CONCENTRATIONS: >150 mcg/mL AT 4 HOURS AFTER INGESTION >= 50 mcg/mL AT 12 HOURS AFTER INGESTION [id number] 06:46:00* Test Item Value Reference Range Interpretation Comments SALICYLATE (test code = KAILEY) < 1.7 mg/dL 2.8-20.0 L [id number] 06:46:00* Test Item Value Reference Range Interpretation [...] AT ANADDITIONAL CHARGE TO THE PATIENT. PROTHROMBIN [id number] 06:44:00* Test Item Value Reference Range Interpretation [...] (2.5-3.5) IS PATIENT ON ANTICOAGULANTS? NTHROMBOPLASTIN TIME [id number] 06:44:00* Test Item Value Reference Range Interpretation Comments THROMBOPLASTIN TIME PARTIAL (test code = PTT) 34.6 seconds 25.0-36. 5 N IS PATIENT ON ANTICOAGULANTS? [id number] 06:37:00* Test Item Value Reference Range Interpretation Comments AMMONIA (test code = AMM) 152 umol/L 11-32 H BASIC METABOLIC [id number] 06:31:00* Test Item Value Reference Range Interpretation [...] code = CA) mg/dL 8.5-10.1 HEPATIC FUNCTION [id number] 06:31:00* Test Item Value Reference Range Interpretation [...] TOTAL (test code = ALKP) IUnit/L 45-117 [id number] 06:31:00* Test Item Value Reference Range Interpretation Comments TROPONIN-I (test code = TROPI) ng/mL 0-0.045 [id number] 06:31:00* Test Item Value Reference Range Interpretation Comments ACETAMINOPHEN (test code = ACET) mcg/mL 10-30 [id number] 06:31:00* Test Item Value Reference Range Interpretation Comments SALICYLATE (test code = KAILEY) mg/dL 2.8-20.0 [id number] 06:31:00* Test Item Value Reference Range Interpretation Comments ALCOHOL (test code = ALC) mg/dL 0-3 CBC W/AUTO [id number] 06:21:00* Test Item Value Reference Range Interpretation [...] = MDIFF) NO, ONLY SCAN NEEDED DIFFERENTIAL [id number] 06:21:00* Test Item Value Reference Range Interpretation Comments STAIN ACCEPTABILITY (test code = STN ACCEPTABLE) CABOT RINGS (test code = CAB) MORPHOLOGY COMMENT (test code = MOC) PLATELET ESTIMATE (test code = PLTEST) PLATELET MORPHOLOGY (test code = PLTMORPH) CBC W/AUTO [id number] 06:21:00* Test Item Value Reference Range Interpretation [...] = MDIFF) NO, ONLY SCAN NEEDED DIFFERENTIAL [id number] 06:21:00* Test Item Value Reference Range Interpretation Comments STAIN ACCEPTABILITY (test code = STN ACCEPTABLE) MORPHOLOGY COMMENT (test code = MOC) PLATELET ESTIMATE (test code = PLTEST) PLATELET MORPHOLOGY (test code = PLTMORPH) CBC W/AUTO [id number] 06:21:00* Test Item Value Reference Range Interpretation [...] = MDIFF) NO, ONLY SCAN NEEDED DIFFERENTIAL [id number] 06:21:00* Test Item Value Reference Range Interpretation Comments STAIN ACCEPTABILITY (test code = STN ACCEPTABLE) MORPHOLOGY COMMENT (test code = MOC) PLATELET ESTIMATE (test code = PLTEST) PLATELET MORPHOLOGY (test code = PLTMORPH) CBC W/AUTO [id number] 06:20:00* Test Item Value Reference Range Interpretation [...] = MDIFF) NO, ONLY SCAN NEEDED DIFFERENTIAL [id number] 06:20:00* Test Item Value Reference Range Interpretation Comments STAIN ACCEPTABILITY (test code = STN ACCEPTABLE) CABOT RINGS (test code = CAB) MORPHOLOGY COMMENT (test code = MOC) PLATELET ESTIMATE (test code = PLTEST) PLATELET MORPHOLOGY (test code = PLTMORPH) - XR CHEST 1 [id number] 06:08:00 FAX: Lolis Parks DO [place]: B St: REG Name: JOCELIN CARROLL [facility] : [birth year] Age/S: 48/M [address] [facility] Unit #: [id number] Loc: [place] [address] Phys: Lolis Parks DO Acct: [id number] Dis Date: Status: REG ER PHONE #: [phone] Exam Date: 12/06/2018 0557 FAX #: [phone] Reason: Altered Mental Status EXAMS: CPT CODE: [id number] XR CHEST 1 V 89661 AFTER HOURS SERVICE ON: 12/06/2018 6:07 AM [...] (610) PAG E 1 Signed Report CARDIAC [id number] 02:39:0028[facility]ARD[facility]AC [id number] 02:39:00< 0.02[facility]annCHEM IPIYD2668-36-49 02:39:78930Xiyiveos HermannCHEM PANEL 2018-08-25 02:39:67786Lrkjgojo HermannCHEM RSJLD5922-75-20 02:39:002.9[facility]annCHEM MJPUP1847-10-58 02:39:70068Qgbhdtra HermannCHEM [id number] 02:39:0028[facility]annCHEM KPCCT5344-13-61 02:39:000.79[facility]annCHEM GFLGJ9225-87-27 02:39:00* Test Item Value Reference Range Interpretation Comments B/C Ratio (test code = B/C Ratio) 16 1 6-25 [facility]annCHE[facility] [id number] 02:39:008.0[facility]annCHEM PANEL 2018-08-25 02:39:0089[facility]annCHEM [id number] 02:39:000.6[facility]annCHEM OWEYG9888-01-37 02:39:006.1[facility]annCHEM ISDUH6805-58-01 02:39:00* Test Item Value Reference Range Interpretation Comments A/G Ratio (test code = A/G Ratio) 0.3 1 0.7-1.6 [facility]annCHEM [id number] 02:39:0026[facility]annCHEM PANEL 2018-08-25 02:39:0077[facility]annCHEM ZFGZD7354-43-22 02:39:001.9[facility]annCHEM KQYBX3937-60-50 02:39:008.9[facility]annCHEM DLTOR8879-88-10 02:39:007.9[facility]annCHEM WPUJH7260-46-13 02:39:92865Vlnrotzi HermannCHEM PYNZW0936-20-09 02:39:0013[facility]annCHEM EOWEW3095-09-16 02:39:29161 [facility] DjqkdqaTPTTSJVHGL4758-02-41 02:39:000.2[facility]annHEMATOLOGY 2018-08-25 02:39:000.6[facility] WndnwqdUCVZDITXXL2909-89-25 02:39:001.2[facility] QrczbmfVVVRGXNVZT0219-42-22 02:39:000.3[facility] NnwozxeIJKTPMGUCD9138-51-20 02:39:001.3[facility] CwxwyeaUDZVANCGSO4970-16-05 02:39:001+ *ABN*(08/24/18 9:39 PM)[facility] UjgowbnKYWMECZJSZ7950-48-14 02:39:0025.3[facility] HermannHEMATOLOGY 2018-08-25 02:39:0053.3[facility] CfivemfRDVOURPKGW9429-28-77 02:39:008.8[facility] TagpzjdVAZPDBILWV8296-71-67 02:39:0011.3[facility] VizhdykENYIEQRCWN6395-50-27 02:39:00* Test Item Value Reference Range Interpretation Comments PT (test code = PT) 14.7 s 12.0-14.7 [facility] IgrfjjkQEUFLYFJXK4851-78-95 02:39:00* Test Item Value Reference Range Interpretation Comments PTT (test code = PTT) 34.7 s 22.9-35.8 [facility] YlvicagOSOPQUDSRG0922-87-07 02:39:00* Test Item Value Reference Range Interpretation Comments INR (test code = INR) 1.17 1 0.85-1.17 [facility] NtvemfyUPUUHHLUBG2713-67-25 02:39:008.4[facility]annHEMATOLOGY 2018-08-25 02:39:0076[facility] QuwgmknQFPPNUNZKL4669-80-62 02:39:0019.3[facility] XjqgddkIUDNLFDTYF3737-82-22 02:39:0025.7[facility] BklebtfXJSSMYPVPU4344-96-78 02:39:0078.5[facility] LnoiwynUVCETJXARI9789-93-93 02:39:0031.7[facility] VPGULKUAAG5243-30-43 02:39:00* Test Item Value Reference Range Interpretation Comments MCH (test code = MCH) 24.8 pg 27.0-31.0 [facility] QansocbBEHMCJXMTK4989-70-56 02:39:003.27[facility]annHEMATOLOGY 2018-08-25 02:39:008.1[facility] MknkemoYHZCPIZPQD7438-56-91 02:39:002.3[facility]annURINE AND IPZYE5307-52-84 09:25:00Negative (08/04/18 4:25 AM)[facility]annBLOOD BANK VLDBAIS1026-09-35 06:09:00Negative (08/04/18 1:09 AM)[facility]annCARDIAC UWAOFEA9473-51-91 06:09:00<0.02[facility]annCHEM PANEL 2018-08-04 06:09:16803Waqnhhxr HermannCHEM WOFGZ6703-76-16 06:09:000.2[facility] HermannCHEM QKJKY5235-42-35 06:09:00* Test Item Value Reference Range Interpretation Comments A/G Ratio (test code = A/G Ratio) 0.3 1 0.7-1.6 [facility]annCHE[facility] PIMKZ6351-94-29 06:09:005.8[facility]annCHEM PANEL 2018-08-04 06:09:000.3[facility]annCHEM XFXII5771-83-08 06:09:000.5[facility]annCHEM KPATK3739-70-92 06:09:0077[facility]annCHEM VGXYW9095-86-93 06:09:0059[facility]annCHEM CMQAU3790-71-45 06:09:0023[facility]annCHEM LFKCD2698-22-79 06:09:001.9[facility]annCHEM WPSUY6180-58-29 06:09:007.7 [facility]annCHE[facility] IQHVL4277-71-47 06:09:001.6[facility]annCHEM PANEL 2018-08-04 06:09:35537Tkonkyvh HermannCHEM BVSRX2365-85-95 06:09:96682Uogymzmw HermannCHEM JEZDC1701-36-83 06:09:007.8[facility]annCHEM GAJBU5985-22-47 06:09:0024[facility] HermannCHEM OSWTE3063-37-94 06:09:49124Wbpnxiub HermannCHEM DWKSI5591-00-70 06:09:003.3[facility]annCHEM DREHT6770-42-51 06:09:0013 [facility]annCHEM CEHKJ4385-71-44 06:09:0099[facility]annCHEM PANEL 2018-08-04 06:09:000.89[facility]annCHEM QMROD5904-21-65 06:09:0013.3[facility] HermannDRUG NILOUV0546-42-18 06:09:00Negative *NA*(08/04/18 1:09 AM)[facility]annDRUG YOJEKO8885-59-37 06:09:00Negative *NA*(08/04/18 1:09 AM)[facility]annDRUG KVDICY9639-39-96 06:09:00Negative *NA*(08/04/18 1:09 AM)[facility]annDR[facility] NUEPRN2258-72-08 06:09:00Positive *ABN*(08/04/18 1:09 AM)[facility]annDRUG LACYZU6897-07-25 06:09:00Negative *NA*(08/04/18 1:09 AM)[facility]annDR[facility] CWJSHD7412-00-64 06:09:00Negative *NA*(08/04/18 1:09 AM)[facility]annDR[facility] JIPYHX6334-90-95 06:09:00Negative *NA*(08/04/18 1:09 AM)[facility] HermannDRUG IRSTZT2022-89-59 06:09:00See Note (08/04/18 1:09 AM)[facility] GANDBSAYRQ0025-08-75 06:09:009.3[facility] UjrhrnhJMUQUQPAWR6686-27-08 06:09:001.1 [facility] PmklsjvXMTQLQXKTR7564-88-69 06:09:0010.6[facility] HermannHEMATOLOGY 2018-08-04 06:09:001.6[facility] HshvmfvRCNOBDJTUS7274-52-26 06:09:001.4[facility] HouptsgPQYBYPPXBZ4679-50-45 06:09:000.4[facility] MrmutryTMOFWMXQQW0211-18-44 06:09:000.4[facility] UrkknoqIMMEDXJZCZ4483-56-99 06:09:0042.9[facility] OEDGESIFAC9397-25-13 06:09:0036.1[facility] OnqlbfjATZIDZJHWE4211-83-96 06:09:00* Test Item Value Reference Range Interpretation Comments PT (test code = PT) 14.2 s 12.0-14.7 [facility] WhdilqqQGNUBRRYOM4926-49-63 06:09:00* Test Item Value Reference Range Interpretation Comments INR (test code = INR) 1.12 1 0.85-1.17 [facility] MzovkvbAXINFECKUD7482-22-87 06:09:00* Test Item Value Reference Range Interpretation Comments PTT (test code = PTT) 36.4 s 22.9-35.8 [facility] ZvdnlduQNKJHZAXTS2608-82-59 06:09:008.3[facility] HermannHEMATOLOGY 2018-08-04 06:09:0078[facility] WhulhsbRLEUTMFYCB2308-10-76 06:09:0079.3[facility] RohyriiPXDDWHOBDF7277-86-52 06:09:00* Test Item Value Reference Range Interpretation Comments MCH (test code = MCH) 24.9 pg 27.0-31.0 [facility] UuakqucIIHACPOZHR1881-60-65 06:09:0031.4[facility] HermannHEMATOLOGY 2018-08-04 06:09:0018.5[facility] JnnvbkkZNJBRNYGDG9935-91-25 06:09:008.3[facility] YpwanqrSRAOPRWAOM0937-92-93 06:09:003.8[facility] LkjwdxbGEJAZUZWOJ4671-53-89 06:09:003.34[facility] EmcgtvaMOFKAOCDXR5623-80-29 06:09:0026.5[facility] XVTTTBCYJA2473-87-87 06:09:58391Qjvmttuq ZoqffcrDNLUBZNCGW7564-63-59 06:09:00 0.362[facility]annURINE AND CYWGC2846-19-77 06:09:00Large *ABN*(08/04/18 1:09 AM)[facility] AND RIGCJ7022-27-52 06:09:00Negative (08/04/18 1:09 AM) [facility] JBSXW6700-25-09 06:09:005[facility]UR[facility] AND PIHUS5818-77-00 06:09:0012[facility]annUR[facility] AND ICTRU2232-84-43 06:09:56206 [facility] DTPNL9462-40-88 06:09:00Negative (08/04/18 1:09 AM) [facility] CGFLF7958-50-14 06:09:00Negative *NA*(08/04/18 1:09 AM) [facility] PBNCF0724-55-74 06:09:00* Test Item Value Reference Range Interpretation Comments UA Spec Grav (test code = UA Spec Grav) 1.013 1 [facility] AND GIHYT5031-11-93 06:09:00Clear (08/04/18 1:09 AM) [facility] GSGPU2970-71-93 06:09:00Yellow *NA*(08/04/18 1:09 AM) [facility] ILCXU4506-50-07 06:09:00* Test Item Value Reference Range Interpretation Comments UA pH (test code = UA pH) 6.0 1 5.0-8.0 [facility]annCHEM JJBBA0226-12-50 08:02:001.7[facility] HermannCHEM PANEL 2018-06-05 08:02:92955Urdcpewq HermannCHEM WMPDZ5222-66-25 08:02:003.5[facility] HermannCHEM OMNOB5946-64-44 08:02:0026[facility] HermannCHEM KROGV0836-25-18 08:02:67866Avurcgjg HermannCHEM VQCID1553-61-89 08:02:007.8[facility] HermannCHEM UNMFL2413-72-77 08:02:000.89[facility] HermannCHEM CWONI2698-93-68 08:02:84286 [facility]annCHEM HPFPR5732-48-53 08:02:0091[facility] HermannCHEM PANEL 2018-06-05 08:02:0011[facility] HermannCHEM OXSFB4130-69-83 08:02:008.5[facility] UykxvkzIRSUHKFPCI0597-92-35 08:02:0068[facility] UlsidadFLDKNIBQVQ2375-31-12 08:02:009.5[facility] SprcmyoAIVCTDBNMS1047-12-88 08:02:0084.3[facility] CHAVSCBBXP4468-12-15 08:02:0029.3[facility] TrbdnxnVPNOKGSFSG7253-31-52 08:02:00 32.1[facility] IrgcnkiCPWAGZQONE0563-88-25 08:02:0020.5[facility] HermannHEMATOLOGY 2018-06-05 08:02:00* Test Item Value Reference Range Interpretation Comments MCH (test code = MCH) 27.1 pg 27.0-31.0 [facility] VkgodfoVKMTMCDUZT3511-32-56 08:02:009.4[facility] HermannHEMATOLOGY 2018-06-05 08:02:003.0[facility] RrkawkqYQMIDKTOIC3608-73-32 08:02:003.48[facility] YjpzrugXMKGBACOXS3753-20-98 08:02:0056.8[facility] BhwuwfxNCJDNUGSED0658-71-64 08:02:0018.1[facility] UqlniutKFQJVSBMUF2462-33-67 08:02:0017.9[facility] HKPOFLPZRG9928-79-81 08:02:006.5[facility] ComflgpMJIRAEYTZO3688-48-24 08:02:000.7 [facility] YaqemklEESPRVTUEB5593-87-87 08:02:001.7[facility] HermannHEMATOLOGY 2018-06-05 08:02:000.2[facility] EjjvpybZXKJZBWWAC2103-41-74 08:02:000.5[facility] EooaxowAOWSFJLSWS4166-68-74 08:02:000.5[facility] HermannPARATHYROID PROFILE 2018-06-04 22:55:001.06[facility] HermannPARATHYROID ZGXFBMQ2963-26-90 22:55:00 1.07[facility] HermannCHEM MMINJ4928-70-90 18:00:0069.0[facility] HermannCHEM PANEL 2018-06-04 18:00:74312Yqitntcm HermannCHEM ODRDA9604-50-96 18:00:008.3[facility] HermannCHEM KBUSI9016-44-40 18:00:0028[facility]annCHEM LNPBT1915-27-98 18:00:006.9[facility] HermannCHEM JSKWD7901-72-25 18:00:23772Vygthbit HermannCHEM OTDEE7831-98-97 18:00:000.83[facility] HermannCHEM HTKOX8032-01-06 18:00:003.3 [facility]annCHEM NTEKG2306-26-01 18:00:80254Hiloyzep HermannCHEM PANEL 2018-06-04 18:00:0011[facility] HermannCHEM IQJGP4721-24-15 18:00:37807Mjtvwqwc EitfcdaLKOEBIHWQH9737-24-92 18:00:008.8[facility] SadtqnrDHRXXZAKJR1007-14-81 18:00:0033.5[facility] FxebiwiRLLGUTRMPA1325-92-07 18:00:0026.4[facility] DWJKMTDBTY0550-07-28 18:00:0081.8[facility] FhkfwziRRPLRBFCXL0201-65-01 18:00:00 19.8[facility] FejhzcaQIRMHDJRQP9700-51-72 18:00:00* Test Item Value Reference Range Interpretation Comments MCH (test code = MCH) 27.4 pg 27.0-31.0 [facility] OentqchUKMIQWYSES4721-65-99 18:00:0051[facility]annHEMATOLOGY 2018-06-04 18:00:002.3[facility] IqxdkyvPFFIAGPGIM5851-38-38 18:00:003.23[facility] MfnchylJMDADBVSNI1243-86-11 18:00:009.1[facility] OxddbzyWPZTNAKBHV0150-31-41 18:00:0015.2[facility] IwpbariQMVTYOLBHS5746-90-55 18:00:001.3[facility] MBHBENBJMV2648-86-22 18:00:000.5[facility] WsbntbxXBROCXGVDQ6807-54-52 18:00:006.1 [facility] TzuojdcFAOHKPNZOV3875-09-52 18:00:000.9[facility]annHEMATOLOGY 2018-06-04 18:00:000.1[facility] MqdrnwaZJJTIKYZJR7991-69-57 18:00:000.3[facility] NadqgciFCJZFGRUIG4418-75-97 18:00:0019.8[facility] EgfvpszEGDIWGWYDB5164-40-26 18:00:0058.0[facility] HermannBODY MLXLVS7382-35-32 17:05:00Ascites *NA*(06/04/18 12:05 PM)[facility]annB[facility] DPRIBG6870-28-81 17:05:000.7[facility]annBODY PXQRIO9881-05-34 17:05:00Moderate Cloudy *ABN*(06/04/18 12:05 PM)[facility] BODY XJXFXI3843-16-42 17:05:4830920Rsjoxbbm HermannBODY OTWLER8605-02-72 17:05:00Red *ABN*(06/04/18 12:05 PM)[facility]ann[facility] JCHXVZ3334-42-32 17:05:07664Lxvslwoh HermannBODY MBYVDB1003-44-89 17:05:00Ascites (06/04/18 12:05 PM)[facility]annB[facility] KXIWEJ3586-11-36 17:05:0019[facility]ann[facility] FLUIDS 2018-06-04 17:05:000[facility]annB[facility] PLIAFZ6769-31-12 17:05:0081[facility]annBODY PWNUCM6178-44-69 17:05:28864Zsoqhjwo HermannBODY CFGYPA1974-24-22 17:05:00Ascites *NA*(06/04/18 12:05 PM)[facility]ann[facility] VFBBGF1000-97-02 17:05:00Ascites *NA*(06/04/18 12:05 PM)[facility]annB[facility] AWCDMW6303-51-60 17:05:002.9[facility] HermannCHEM QLYWY6941-58-77 19:58:44390.0[facility] CHEM FFQDH2984-78-87 19:58:0073[facility] HermannCHEM GYPTG4276-22-05 19:58:0029 [facility]annCHEM TXGSJ4428-18-24 19:58:63492Ffsesmjq HermannCHEM PANEL 2018-06-03 19:58:007.1[facility] HermannCHEM OLGPT9156-37-72 19:58:003.6[facility] HermannCHEM UMHYY3983-46-55 19:58:84729Fknlvytr HermannCHEM QAJKK0448-72-29 19:58:93498Hzejpmfj HermannCHEM GGEHC3404-94-44 19:58:0010[facility]annCHEM NBFOD3552-10-39 19:58:001.18[facility] HermannCHEM XDGHV8803-09-47 19:58:008.6 [facility] GohqgrsOOXVSHYLHG3599-07-68 19:58:009.4[facility] HermannHEMATOLOGY 2018-06-03 19:58:0028.1[facility] GspquckUCROFLZPTM9270-47-52 19:58:0082.2[facility] HevawnhFEPKVDWHPL4487-03-09 19:58:00* Test Item Value Reference Range Interpretation Comments MCH (test code = MCH) 27.5 pg 27.0-31.0 [facility] RknqhcyZDBTEAKBWK5193-42-77 19:58:0033.4[facility] HermannHEMATOLOGY 2018-06-03 19:58:0019.9[facility] ApcgrhdUBMIQMCFNT1826-64-20 19:58:003.2[facility] ItaxoxlEYCOHYUWVU9501-33-45 19:58:003.42[facility] OlddzhvHEVTNYXJZY4696-77-44 19:58:0059[facility] WzibxlaQEORDWNWPH9483-28-66 19:58:008.7[facility] ALPETNBERY4314-50-04 19:58:002.0[facility] HtofuztNJHJLAONEJ5386-63-24 19:58:000.5 [facility] RpxgfqsAMBDWXALHM5489-72-06 19:58:000.4[facility] HermannHEMATOLOGY 2018-06-03 19:58:000.2[facility] IamnubrCZCXCQMAHM1738-72-08 19:58:000.9[facility] NymrdjvQXUBPZPSTZ5534-59-50 19:58:0013.5[facility] FqmagzgHDGPERLKID7298-36-16 19:58:006.3[facility] YkqsvnoWKEMAMMHLZ0326-64-27 19:58:0064.6[facility] ILTXEPJFTV5846-67-84 19:58:0014.7[facility] AcnqgvoMLREWFFNLR4419-78-47 19:58:001+ (06/03/18 2:58 PM)[facility] DywemcxIPYGBMCHMN8391-78-81 19:58:00Rare *ABN*(06/03/18 2:58 PM)[facility] SkwbrbrSRHSXTJAPJ0078-45-67 19:58:001+ *ABN*(06/03/18 2:58 PM)[facility] DpuetfvSYFWWYKLWH5425-84-41 19:58:00Normal (06/03/18 2:58 PM)[facility] HzfanuxGFRILRJPVX6641-88-41 19:58:00See Note (06/03/18 2:58 PM)[facility] HermannPARATHYROID FXVERJH7473-01-31 19:58:001.00[facility] HermannPARATHYROID NZTKHDA3121-83-85 19:58:001.00[facility] HermannANEMIA STUDY 2018-06-03 09:54:0057[facility] HermannANEMIA LRNGZ7399-70-52 09:54:0044[facility] HermannANEMIA IONXF1946-28-57 09:54:0014[facility] HermannANEMIA SOOLG9124-57-33 09:54:44752Qtlcdhue HermannANEMIA BLMAU7552-78-52 09:54:88730Fgkbhqqy [place] SPECIAL FDMAWVPGB8815-34-88 09:54:000.09[facility] HermannTUMOR QPKPIOK6064-76-46 09:54:003.3[facility] HermannTUMOR YUIBWVI6637-74-61 09:54:005.0[facility] CHEM XAYJT3309-48-68 16:54:50992.0[facility] HermannPARATHYROID SQBGORQ2066-24-67 16:54:000.95[facility] HermannPARATHYROID TSAOFKF8965-17-46 16:54:000.94[facility] HermannCHEM RFGZW3242-18-23 10:44:001.2[facility] HermannCHEM NGHJX7087-16-18 10:44:002.8[facility] HermannCHEM DUZOK5942-56-34 10:44:00* Test Item Value Reference Range Interpretation Comments B/C Ratio (test code = B/C Ratio) 15 1 6-25 [facility] HermannCHEM HRSLX1414-51-22 10:44:0064[facility] HermannCHEM PANEL 2018-06-02 10:44:0045[facility] HermannCHEM JMYWH7690-39-25 10:44:001.4[facility] HermannCHEM MJKVW9241-79-81 10:44:0015[facility] HermannCHEM MVLKX5083-33-93 10:44:00* Test Item Value Reference Range Interpretation Comments A/G Ratio (test code = A/G Ratio) 0.3 1 0.7-1.6 [facility]annCHEM QGZIU1956-22-27 10:44:001.7[facility] HermannCHEM PANEL 2018-06-02 10:44:007.3[facility] HermannCHEM AAEHP6905-19-89 10:44:005.6[facility] EorekkqFMGBPVFNUQ7675-42-31 10:44:00* Test Item Value Reference Range Interpretation Comments INR (test code = INR) 1.34 1 0.85-1.17 [facility] WzzrldoHUOVBBNOMM8021-01-95 10:44:00* Test Item Value Reference Range Interpretation Comments PT (test code = PT) 16.3 s 12.0-14.7 [facility] DpiephvWMZWQDXCJH9202-83-51 10:44:00* Test Item Value Reference Range Interpretation Comments PTT (test code = PTT) 36.5 s 22.9-35.8 [facility] HermannCHEM AUASR1255-68-49 02:13:001.1[facility] HermannBLOOD BANK IZKCWOI0901-93-19 01:02:00Negative (06/01/18 8:02 PM)[facility]annURINE AND YCBSF9423-30-40 21:22:00Positive *ABN*(06/01/18 4:22 PM)[facility] HermannCHEM FLTFU2382-80-11 16:01:0049[facility] HermannCHEM NIUSH8423-45-37 16:01:0015 [facility]annCHEM DKYQJ0165-48-87 16:01:0074[facility] HermannCHEM PANEL 2018-06-01 16:01:001.2[facility] HermannCHEM IMWIJ4641-87-67 16:01:001.9[facility] HermannCHEM BKHFG8727-47-88 16:01:008.2[facility] HermannCHEM TGJFN5184-59-23 16:01:006.3[facility] HermannCHEM TSWFU0707-04-40 16:01:00* Test Item Value Reference Range Interpretation Comments A/G Ratio (test code = A/G Ratio) 0.3 1 0.7-1.6 [facility] HermannCHEM UNMLW4252-06-67 16:01:00* Test Item Value Reference Range Interpretation Comments B/C Ratio (test code = B/C Ratio) 13 1 6-25 [facility] HermannCHEM TTCYN6080-05-27 16:01:02328Ansezpbp HermannHEMATOLOGY 2018-06-01 16:01:00* Test Item Value Reference Range Interpretation Comments INR (test code = INR) 1.18 1 0.85-1.17 [facility] YqflqpvFDKZKKLEGE5340-59-26 16:01:00* Test Item Value Reference Range Interpretation Comments PT (test code = PT) 14.8 s 12.0-14.7 [facility] MxmerskZBZVWZGYTG4353-04-76 16:01:00* Test Item Value Reference Range Interpretation Comments PTT (test code = PTT) 33.9 s 22.9-35.8 [facility]annUR[facility] AND BNHUR3403-28-42 16:01:007[facility]annURINE AND HCDFP1518-38-68 16:01:00Negative (06/01/18 11:01 AM)[facility]annUR[facility] AND NSHPV3183-22-37 16:01:0097[facility]annURINE AND QOBWQ5375-30-67 16:01:00 Negative (06/01/18 11:01 AM)[facility]ann[facility] AND RNSWL3942-96-64 16:01:00 Large *ABN*(06/01/18 11:01 AM)[facility]annUR[facility] AND JBWXG2022-20-04 16:01:00 * Test Item Value Reference Range Interpretation Comments UA Spec Grav (test code = UA Spec Grav) 1.020 1 [facility]UR[facility] AND SSWYO8891-61-99 16:01:00Slight *ABN*(06/01/18 11:01 AM) [facility] MHGAE6473-52-66 16:01:00Dark Yellow (06/01/18 11:01 AM) [facility] IFIHY8371-29-77 16:01:00Negative *NA*(06/01/18 11:01 AM)[facility]annUR[facility] AND GWHIT0261-80-35 16:01:00Small *ABN*(06/01/18 11:01 AM)[facility]UR[facility] AND KKYEC7228-76-88 16:01:00* Test Item Value Reference Range Interpretation Comments UA pH (test code = UA pH) 6.0 1 5.0-8.0 [facility]annUR[facility] AND RMBYG0295-74-93 16:01:00Negative *NA*(06/01/18 11:01 AM)[facility] CT ABD PELVIS W/EELE6821-67-80 18:57:00 Name: JOCELIN CORREA [facility] : 1970 Age/S: 48 / M [address] [facility] Unit #: [id number] Loc: [place] [address] Phys: Giovanna Syed MD Acct: [id number] Di s Date: Status: REG ER PHONE #: Exam Date: 05/05/20181826 FAX #: Reason: abd pain EXAMS: CPT CODE: [id number] CT ABD PELVIS W/CONT 49884 HISTORY: Abdominal pain. COMPARISON: December 18, 2017. [...] 1 Signed Report (CONTINUED) Name: JOCELIN CORREA [facility] : 1970 [age]/S: [age] / M [address] [facility] Unit #: [id number] Loc: [place] [address] Phys: Sanya Syed MD Acct: [id number] Dis Date: Status: REG ER PHONE #: [phone] Exam Date: 05/05/20181826 FAX #: [phone] Reason: abd pain EXAMS: CPT CODE: [id number] CT ABD PELVIS W/CONT 46525 <Continued> varices. No hydroureteronephrosis. Punctate bilateral 1 [...] (1856) [email or web address] Orig Print D/T: S: 05/05/2018 (8830) CTDI: DLP: PAGE 2 Signed Report BASIC [...] CA) 8.1 mg/dL 8.5-10.1 L HEPATIC FUNCTION PAMEY5825-66-67 16:39:00* Test Item Value Reference Range Interpretation [...] reference range due to change in reagent. APDMAE3270-98-41 16:39:00* Test Item Value Reference Range Interpretation Comments LIPASE (test code = LIP) 72 U/L 73.0-393.0 L FJJXJXQE-R4097-48-23 16:39:00* Test Item Value Reference Range Interpretation Comments TROPONIN-I (test code = TROPI) <0.015 ng/mL 0-0.045 N SYVWABH6963-78-92 16:39:00* Test Item Value Reference Range Interpretation [...] ANADDITIONAL CHARGE TO THE PATIENT. BASIC METABOLIC QDRUW9858-73-92 16:30:00* Test Item Value Reference Range Interpretation [...] code = CA) mg/dL 8.5-10.1 HEPATIC FUNCTION UHXFY9083-96-99 16:30:00* Test Item Value Reference Range Interpretation [...] TOTAL (test code = ALKP) IUnit/L 45-117 MUYOEE4075-23-65 16:30:00* Test Item Value Reference Range Interpretation Comments LIPASE (test code = LIP) U/L 73.0-393.0 OEMSJPOP-E1476-21-23 16:30:00* Test Item Value Reference Range Interpretation Comments TROPONIN-I (test code = TROPI) ng/mL 0-0.045 IDFSMBA7245-68-76 16:30:00* Test Item Value Reference Range Interpretation Comments ALCOHOL (test code = ALC) mg/dL 0-3 CBC W/O CDDF1167-95-83 16:10:00* Test Item Value Reference Range Interpretation [...] = MPV) 10.0 fL 6.7-11.0 N CARDIAC HNQVWSU3156-01-42 23:31:00<0.02[facility] HermannCARDIAC XZNZIRE5551-38-62 23:31:0030[facility] HermannCHEM RGYMN8466-91-53 23:31:63566Whfzxgdv HermannCHEM CTKBY0316-50-54 23:31:009[facility] HermannCHEM WXSRO4078-56-50 23:31:000.78 [facility] HermannCHEM NFFDC0216-87-32 23:31:0064[facility] HermannCHEM PANEL 2018-04-18 23:31:000.4[facility] HermannCHEM UTZWN1273-64-92 23:31:0015[facility] HermannCHEM IRQGF3771-92-87 23:31:003.7[facility] HermannCHEM GCQIW8412-90-80 23:31:05713Azdxvqkv HermannCHEM RFMRC5510-19-07 23:31:05485Qjqpghkk HermannCHEM OMHMI7017-97-09 23:31:003.7[facility] HermannCHEM PWDOW8676-88-94 23:31:007.5 [facility] HermannCHEM CXWVY3618-14-31 23:31:008.7[facility] HermannCHEM PANEL 2018-04-18 23:31:0027[facility] HermannCHEM LMWFZ2271-24-67 23:31:0019[facility] HermannCHEM XQWAC0260-97-08 23:31:0098[facility] HermannCHEM FPJOC9908-23-29 23:31:00* Test Item Value Reference Range Interpretation Comments B/C Ratio (test code = B/C Ratio) 09-04 [facility] HermannCHEM DEBAK7697-04-12 23:31:00* Test Item Value Reference Range Interpretation Comments A/G Ratio (test code = A/G Ratio) 1.0 1 0.7-1.6 [facility]annCHEM UJYIU0567-13-29 23:31:009.7[facility] HermannCHEM PANEL 2018-04-18 23:31:003.8[facility] FiksbvvAXEPXPIXVJKG1069-63-25 23:31:009.7[facility] IubcibkUWURODWYKVIU0445-42-29 23:31:00* Test Item Value Reference Range Interpretation Comments B/C Ratio (test code = B/C Ratio) 12 1 6-25 [facility] AdtodliZDXDBGJAXONQ8396-83-81 23:31:003.8[facility] HermannELECTROLYTES 2018-04-18 23:31:00* Test Item Value Reference Range Interpretation Comments A/G Ratio (test code = A/G Ratio) 1.0 1 0.7-1.6 [facility] ZeyztgvCVKTHREGIMGH9756-44-64 23:31:0098[facility] HermannELECTROLYTES 2018-04-18 23:31:009[facility] FdijwliRFKMIERUDVCQ6723-08-31 23:31:000.78[facility] PuvsvkbPXMPDGVWYGJP8160-40-67 23:31:49340Hvkmjnwi RpngbaaUFHZFTIZJBYV6473-43-00 23:31:003.7[facility] KvkyauoVCBGDXKHYFAT3493-50-21 23:31:32724Oqogughr [facility] AXQYKLHLJKUI4373-81-92 23:31:0027[facility] QhqgimcSOBBGFQSXHAW9239-17-33 23:31:00 8.7[facility] VinstzkOBZYSXIYRGQZ4779-43-35 23:31:007.5[facility] ITVQGJGVSUGU6657-31-54 23:31:003.7[facility] NbfnpkpWMBRWKYILUDC2825-01-03 23:31:0019[facility] QcmqysoEOKLJNTJKTHE7079-99-47 23:31:0015[facility] CLOMRVENEDDI6572-70-07 23:31:0064[facility] LpdrrvmPGZRKEVOIVYI6416-50-39 23:31:00 0.4[facility] GrbwjpyXAVLEPLBYOHI6900-01-16 23:31:77014Afacxjaz HermannHEMATOLOGY 2018-04-18 23:31:009.3[facility] NyqntcgUWJKEWANBA6894-93-82 23:31:004.63[facility] DzirmouGALWOFSWQN4464-60-40 23:31:0014.2[facility] DuctoccWTDVWDNMFW3667-35-70 23:31:0041.6[facility] OynnhhdJIHSQUSJJE4151-36-92 23:31:0089.8[facility] MHQCXKEUNG0779-66-86 23:31:00* Test Item Value Reference Range Interpretation Comments MCH (test code = MCH) 30.5 pg 27.0-31.0 [facility] KdpyabmBSGMWBIFSD5524-51-72 23:31:0034.0[facility] HermannHEMATOLOGY 2018-04-18 23:31:0014.5[facility] DgrupxaRIELDQRKAN6000-42-46 23:31:76240Oidbixxs KmjudimNDKBVRMQRY0965-36-55 23:31:009.3[facility] BzfyczeARPJQFLJSU0535-96-99 23:31:00* Test Item Value Reference Range Interpretation Comments INR (test code = INR) 1.05 1 0.85-1.17 [facility] EwdeqraGVIMTQJXBH1342-01-50 23:31:00* Test Item Value Reference Range Interpretation Comments PT (test code = PT) 13.5 s 12.0-14.7 [facility] VirrcwyYFWYXBVTHT0322-55-03 23:31:00* Test Item Value Reference Range Interpretation Comments PTT (test code = PTT) 29.1 s 22.9-35.8 [facility] ZofgvvmYXBLEJGTOJ0905-77-09 23:31:0069.7[facility] HermannHEMATOLOGY 2018-04-18 23:31:0023.9[facility] AegjdfrBBTQXDWVED0181-35-50 23:31:004.6[facility] ErggzveKPTMATJCOJ6361-52-14 23:31:001.5[facility] KkceextCIZNPEAMIY6363-48-54 23:31:000.3[facility] RwdbluvIJIJOVEROT3704-59-56 23:31:006.5[facility] RSKXXOMQGM3320-84-96 23:31:002.2[facility] VdnolbeFKAMUXGIVU6489-59-25 23:31:000.4 [facility] ZcubcjwLMOMYTTGGS7523-04-65 23:31:000.1[facility] HermannURINE AND STOOL 2018-04-18 23:31:00Clear (04/18/18 5:31 PM)[facility]annURINE AND STOOL 2018-04-18 23:31:00* Test Item Value Reference Range Interpretation Comments UA Spec Grav (test code = UA Spec Grav) 1.010 1 [facility]annUR[facility] AND RGIKW0098-26-53 23:31:00* Test Item Value Reference Range Interpretation Comments UA pH (test code = UA pH) 8.0 1 5.0-8.0 [facility] AND YRVFR6522-89-79 23:31:00Negative (04/18/18 5:31 PM) [facility] AND YNVGQ8227-81-61 23:31:00Negative *NA*(04/18/18 5:31 PM) [facility] AND KXNMH3871-20-06 23:31:00Negative *NA*(04/18/18 5:31 PM) [facility] AND ITITN3861-14-16 23:31:00Negative *NA*(04/18/18 5:31 PM) [facility] AND WMBEH9690-68-68 23:31:00Negative (04/18/18 5:31 PM) [facility] AND BGJES1539-82-02 23:31:00Negative (04/18/18 5:31 PM) [facility] AND GXETZ2398-32-91 23:31:00Trace *ABN*(04/18/18 5:31 PM) [facility] AND NYEVP5792-88-47 23:31:006[facility]annURINE AND YDEHO5294-71-18 23:31:001[facility]annURINE AND OKBLR7950-29-31 23:31:006 [facility] HermannBASIC METABOLIC RVZSG3542-30-51 21:06:00* Test Item Value Reference Range Interpretation [...] CA) 8.1 mg/dL 8.5-10.1 L HEPATIC FUNCTION BJPQJ8212-47-04 21:06:00* Test Item Value Reference Range Interpretation [...] reference range due to change in reagent. VDAKWTVIX8418-71-44 21:06:00* Test Item Value Reference Range Interpretation Comments MAGNESIUM (test code = MAG) 1.5 mg/dL 1.8-2.4 L WEGXFMHW-I1693-41-06 21:06:00* Test Item Value Reference Range Interpretation Comments TROPONIN-I (test code = TROPI) <0.015 ng/mL 0-0.045 N PROTHROMBIN BTAY5895-24-85 20:45:00* Test Item Value Reference Range Interpretation [...] (2.5-3.5) IS PATIENT ON ANTICOAGULANTS? NTHROMBOPLASTIN TIME QNTKTVX0547-32-07 20:45:00* Test Item Value Reference Range Interpretation Comments THROMBOPLASTIN TIME PARTIAL (test code = PTT) 40.7 seconds 25.0-36. 5 H IS PATIENT ON ANTICOAGULANTS? NBASIC METABOLIC IEDKB2169-88-94 20:40:00* Test Item Value Reference Range Interpretation [...] code = CA) mg/dL 8.5-10.1 HEPATIC FUNCTION ZCZPG3710-64-35 20:40:00* Test Item Value Reference Range Interpretation [...] TOTAL (test code = ALKP) IUnit/L 45-117 RFRWKFFDV9570-05-41 20:40:00* Test Item Value Reference Range Interpretation Comments MAGNESIUM (test code = MAG) mg/dL 1.8-2.4 SPLCNPIU-C8913-90-06 20:40:00* Test Item Value Reference Range Interpretation Comments TROPONIN-I (test code = TROPI) ng/mL 0-0.045 CBC W/O XVNY8535-22-17 20:37:00* Test Item Value Reference Range Interpretation [...] fL 6.7-11.0 N - CT HEAD/BRAIN W/O UWMB5296-36-60 20:09:00 Name: JOCELIN CORREA [facility] : 1970 Age/S: 48 / M [address] Unit #: [id number] Loc: [place] [address] Phys: MARYAN ROBERTS MD Acct: [id number] Dis Date: Status: REG ER PHONE #: [phone] Exam Date: 04/18/20182007 FAX #: [phone] Reason: fall, head trauma, blood in ear EXAMS: CPT CODE: [id number] CT HEAD/BRAIN W/O CONT 14933 REASON FOR EXAM: fall, head trauma, blood [...] PAGE 1 Signed Report - US ABDOMEN EULFAPYN7942-82-31 07:09:00 Name: CHELLY CORREA [facility] : 1970 Age/S: 48 / M [address] [facility] Unit #: [id number] Loc: [place] [address] Phys: Giovanna Rees MD Acct: [id number] Dis Date: Status: ADM IN PHONE #: [phone] Exam Date: 04/09/201826 FAX #: [phone] Reason: abd pain. evaluate lesion in ascites EXAMS: CPT CODE: [id number] US ABDOMEN COMPLETE 53007 REASON FOR EXAM: abd pain. evaluate lesion [...] Probe: PAGE 1 Signed Report CBC W/AUTO HAUY7690-48-71 06:40:00* Test Item Value Reference Range Interpretation [...] = MDIFF) NO, ONLY SCAN NEEDED DIFFERENTIAL ZDQD7362-52-17 06:40:00* Test Item Value Reference Range Interpretation Comments STAIN ACCEPTABILITY (test code = STN ACCEPTABLE) STAIN ACCEPTABLE POLYCHROMASIA (test code = POLC) 2+ ANISOCYTOSIS (test code = ANISO) 2+ MACROCYTOSIS (test code = MACR) 2+ PLATELET ESTIMATE (test code = PLTEST) DECREASED PLATELET MORPHOLOGY (test code = PLTMORPH) NORMAL BASIC METABOLIC TGQCG3454-90-08 06:20:00* Test Item Value Reference Range Interpretation [...] code = CA) 7.8 mg/dL 8.5-10.1 L BHHVBQIGT4964-32-47 06:20:00* Test Item Value Reference Range Interpretation Comments MAGNESIUM (test code = MAG) 1.4 mg/dL 1.8-2.4 L CBC W/AUTO OWSL3384-36-25 06:17:00* Test Item Value Reference Range Interpretation [...] = MDIFF) NO, ONLY SCAN NEEDED DIFFERENTIAL [id number] 06:17:00* Test Item Value Reference Range Interpretation Comments STAIN ACCEPTABILITY (test code = STN ACCEPTABLE) CABOT RINGS (test code = CAB) MORPHOLOGY COMMENT (test code = MOC) PLATELET ESTIMATE (test code = PLTEST) PLATELET MORPHOLOGY (test code = PLTMORPH) CBC W/AUTO [id number] 06:17:00* Test Item Value Reference Range Interpretation [...] = MDIFF) NO, ONLY SCAN NEEDED DIFFERENTIAL [id number] 06:17:00* Test Item Value Reference Range Interpretation Comments STAIN ACCEPTABILITY (test code = STN ACCEPTABLE) CABOT RINGS (test code = CAB) MORPHOLOGY COMMENT (test code = MOC) PLATELET ESTIMATE (test code = PLTEST) PLATELET MORPHOLOGY (test code = PLTMORPH) CBC W/AUTO HWTQ8744-94-57 06:17:00* Test Item Value Reference Range Interpretation [...] = MDIFF) NO, ONLY SCAN NEEDED DIFFERENTIAL VSFQ9332-17-24 06:17:00* Test Item Value Reference Range Interpretation Comments STAIN ACCEPTABILITY (test code = STN ACCEPTABLE) MORPHOLOGY COMMENT (test code = MOC) PLATELET ESTIMATE (test code = PLTEST) PLATELET MORPHOLOGY (test code = PLTMORPH) CBC W/AUTO [id number] 06:17:00* Test Item Value Reference Range Interpretation [...] = MDIFF) NO, ONLY SCAN NEEDED DIFFERENTIAL [id number] 06:17:00* Test Item Value Reference Range Interpretation Comments STAIN ACCEPTABILITY (test code = STN ACCEPTABLE) CABOT RINGS (test code = CAB) MORPHOLOGY COMMENT (test code = MOC) PLATELET ESTIMATE (test code = PLTEST) PLATELET MORPHOLOGY (test code = PLTMORPH) BASIC METABOLIC [id number] 06:12:00* Test Item Value Reference Range Interpretation [...] CALCIUM (test code = CA) mg/dL 8.5-10.1 UMMTJHACX2699-52-06 06:12:00* Test Item Value Reference Range Interpretation Comments MAGNESIUM (test code = MAG) mg/dL 1.8-2.4 PROTHROMBIN PIET7263-95-55 06:12:00* Test Item Value Reference Range Interpretation [...] PATIENT ON ANTICOAGULANTS? N- CT ABD PELVIS W/QSEU4473-16-76 13:44:00 Name: CHELLY CORREA [facility] : 1970 Age/S: 48 / M [address] [facility] Unit #: [id number] Loc: [place] [address] Phys: Fransisco Valdez MD Acct: [id number] Di s Date: Status: REG ER PHONE #: Exam Date: 04/09/2018 9637 FAX #: [phone] Reason: upper abd pain EXAMS: CPT CODE: [id number] CT ABD PELVIS W/CONT 52671 EXAM: CT of the abdomen a nd [...] Mandujano RT(R),(MR),(CT) CTDI: DLP: Trnscb Date/Time: 04/09/2018 (2543) [email or web address] Orig Print D/T: S: 04/09/2018 (6310) CTDI: DLP: PAGE 1 Signed Report URINALYSIS [id number] 13:28:00* Test Item Value Reference Range Interpretation [...] per LPF NONE-FEW Urine Source? Clean CatchURINALYSIS AMELJRCK5980-25-50 12:46:00* Test Item Value Reference Range Interpretation [...] HPF 0-5 Urine Source? Clean CatchCBC W/O [id number] 12:33:00* Test Item Value Reference Range Interpretation [...] MPV) 11.6 fL 6.7-11.0 H BASIC METABOLIC [id number] 12:08:00* Test Item Value Reference Range Interpretation [...] CA) 8.2 mg/dL 8.5-10.1 L HEPATIC FUNCTION [id number] 12:08:00* Test Item Value Reference Range Interpretation [...] reference range due to change in reagent. [id number] 12:08:00* Test Item Value Reference Range Interpretation Comments LIPASE (test code = LIP) 114 U/L 73.0-393.0 N PHKVIUYR-R6072-38-28 12:08:00* Test Item Value Reference Range Interpretation Comments TROPONIN-I (test code = TROPI) <0.015 ng/mL 0-0.045 N BASIC METABOLIC [id number] 11:58:00* Test Item Value Reference Range Interpretation [...] code = CA) mg/dL 8.5-10.1 HEPATIC FUNCTION [id number] 11:58:00* Test Item Value Reference Range Interpretation [...] TOTAL (test code = ALKP) IUnit/L 45-117 MHIJWA3472-14-09 11:58:00* Test Item Value Reference Range Interpretation Comments LIPASE (test code = LIP) U/L 73.0-393.0 BASIC METABOLIC [id number] 11:52:00* Test Item Value Reference Range Interpretation [...] code = CA) mg/dL 8.5-10.1 HEPATIC FUNCTION [id number] 11:52:00* Test Item Value Reference Range Interpretation [...] TOTAL (test code = ALKP) IUnit/L 45-117 [id number] 11:52:00* Test Item Value Reference Range Interpretation Comments LIPASE (test code = LIP) U/L 73.0-393.0 PROTHROMBIN [id number] 11:42:00* Test Item Value Reference Range Interpretation [...] (2.5-3.5) IS PATIENT ON ANTICOAGULANTS? NTHROMBOPLASTIN TIME [id number] 11:42:00* Test Item Value Reference Range Interpretation Comments THROMBOPLASTIN TIME PARTIAL (test code = PTT) 39.0 seconds 25.0-36. 5 H IS PATIENT ON ANTICOAGULANTS? WENCESLAOKEVBZXE8794-44-28 12:51:00 RUN DATE: 12/25/17 Luis Lopezexsulin PAGE 1 RUN TIME: 1251 Specimen Inqui ry RUN USER: INTERFACE PATIENT: JOCELIN CORREA ACCT #: [id number] LOC: HaleyJESSICA U #: [id number] AGE/SX: 47/M ROOM: [facility] RE12/19/17NATALIYA DR: Giovanna Rees MD : 70 BED: A DIS: 12/21/17 STATUS: DIS IN TLOC: SPEC #: [id number] RECD: 12/19/17 STATUS: SOULalito REQ #: [id number] MELISA: 12/19/[address] [facility] [address]: Yuval Multani MD ENTERED: 10/09/18-1236 SP TYPE: FL ASCITES OTHR DR: Ian Olivas i, MD ORDERED: GROSS COPIES TO: Ian Cook MD [address], [address] [place], [place] [address] Yuval Multani MD [address] [place] [address] PROCEDURES: GROSS (12/25/17- 7) TISSUES: ASCITES FLUID - 20 ML RED CLINICAL HISTORY MELISA ECTION DATE: 12/19/17 HISTORY CIRRHOSIS, HEPATITIS C, PANCYTOPENIA FINAL DIAGNOSIS Ascites fluid for cytology, paracentesis: MESOTHELIAL CELLS, MACROPHAGES, WHITE BLOOD CELLS- PREDOMINATELY LYMPHOCYTES, AND R ED BLOOD CELLS NEGATIVE FOR MALIGNANCY DMW/arin D 54148, 883 05 MACROSCOPIC The specimen consists of 20 mL of red fluid for conc entration and evaluation. A cell block will be prepared. GROSS PERFORM ED AT [facility] CONTINUED ON NEXT PAGE RUN DATE: 12/25/17 [facility] PAGE 2 RUN TIME: 1251 Specimen Inquiry RUN USER: INTERFACE SPEC #: [id number] PATIENT: JOCELIN CORREA #[id number] (Continued)------ ------ MACROSCOPIC (Continued) [address], [facility] [place] [address] (P)[phone] MICROSCOPIC MICROSCOPIC PERFOR MED AT [facility] All of the stains, including any controls perfor med, stain appropriately. [facility] [address], [place] [address] (P)[phone] PERFORMING SITE Diagnosis perform ed at: [facility], [place] [address] [place] [address] Signed SIGNATURE ON FILE SheehanMireya 12/25/17 1251 END OF REPORT STOMACH 2017-12-22 13:27:00 RUN DATE: 12/22/17 Luis Lopez - [facility] PAGE 1 RUN TIME: 1327 Specimen Inqui ry RUN USER: INTERFACE PATIENT: JOCELIN CORREA ACCT #: [id number] LOC: DEON U #: [id number] AGE/SX: 47/M ROOM: [facility] RE12/19/17REG DR: Giovanna Rees MD : 70 BED: A DIS: 12/21/17 STATUS: DIS IN TLOC: SPEC #: [id number] RECD: 12/21/17 STATUS: [facility] #: [id number] MELISA: 12/20/17- SUBM DR: González Nunez MD ENTERED: 12/21/17-1110 SP TYPE: STOMACH OTHR DR: Ian Olivas i, MD ORDERED: GROSS COPIES TO: González Nunez MD [address] [place] [address] Ian Cook MD [address], [address] [place] [address] PROCEDURES: GROSS (12/22/17-1054 ) TISSUES: [...] STAIN NE GATIVE FOR MALIGNANCY RRB/ D 32691, 52772 CONTINUED ON NEXT PAGE RUN DATE: 12/22/17 Luis Lopez - Lab PAGE 2 RUN TIME: 1327 Specimen Inquiry RUN USER: INTERF MARTIN SPEC # : [id number] PATIENT: SUNNYJOCELIN #[id number] (Cont inued) MACROSCOPIC The specimen is received in formali n, labeled with the patient's name, identified as "gastric", and consists of l lavonnet king biopsy tissue measuring 0.35 cm in aggregate, submitted for H E and G iemsa stains. GROSS PERFORMED AT [facility] [address] [place] [address] (P)[phone] MICR OSCOPIC MICROSCOPIC PERFORMED AT [facility] All of the stains, including any controls performed, stain appropriately. [facility] [address] [place] [address] (p)[phone] PERFORM ING SITE Diagnosis performed at: [facility] [address] [place] [address] --------- --- Signed SIGNATURE ON FILE Elvis Schmid 12/22/17 1327 END OF REP ORT CHEM [id number] 14:13:001.2[facility] HezhmkuWAXGNXFSBI5568-58-48 07:45:001.0[facility] UmmlznoJUDVMANPTJ4970-29-26 07:45:001.9[facility] MQYGUAZHJI7531-54-31 07:45:000.2[facility] LclbhrkAJKLMQCJSL7100-52-37 07:45:000.5 [facility] IqnlywjLHWKRWYYCX7140-31-82 07:45:000.9[facility] 2017-09-16 07:45:005.5[facility] KsgnwosWRYRLEEKZI9380-88-61 07:45:0053.9[facility] EwbcwlrUNWTURRPRN8752-06-62 07:45:0012.6[facility] GosetjaZWFHAVNITD1064-88-14 07:45:0027.1[facility] NvrzxhxSYMQJXNNBM0709-07-03 07:45:00* Test Item Value Reference Range Interpretation Comments PTT (test code = PTT) 33.3 s 22.9-35.8 [facility] TswcqikZUNFAILAPQ0855-93-22 07:45:00* Test Item Value Reference Range Interpretation Comments INR (test code = INR) 1.53 1 0.85-1.17 [facility] OhnlzlnVVYEAARTZT3265-54-35 07:45:00* Test Item Value Reference Range Interpretation Comments PT (test code = PT) 18.5 s 12.0-14.7 [facility] XhncqavNTZGKVHPLR0158-09-16 07:45:0033.1[facility]annHEMATOLOGY 2017-09-16 07:45:0029.3[facility] XvpzupjYFJTPCBBOQ9027-50-84 07:45:0097.4[facility] AexgviuGROYIFHAWG6733-46-30 07:45:00* Test Item Value Reference Range Interpretation Comments MCH (test code = MCH) 32.2 pg 27.0-31.0 [facility] YurnkhsNYYPWLBDQL9766-18-25 07:45:0068[facility] HermannHEMATOLOGY 2017-09-16 07:45:0017.5[facility] OxhayfuGXOJPAIUHY4200-50-50 07:45:008.2[facility] VojcqvzCIBOZUVFVH2583-21-73 07:45:003.01[facility] UmypzoaZCJIRATRSE9299-37-76 07:45:009.7[facility] ItpbixzWRHFFNGNZQ8755-66-22 07:45:003.6[facility] CARDIAC YAAHEWJ1790-87-97 07:24:00<1.3[facility] HermannCARDIAC VNQMETH9911-09-90 07:24:00<1.0[facility]annCARDIAC BMYQZKP0346-49-58 07:24:0079[facility] CARDIAC YFQNADZ6838-23-18 07:24:00<0.02[facility] HermannCHEM ISDHW8020-62-34 07:24:006.0[facility] HermannCHEM MGHZC7145-25-04 07:24:00* Test Item Value Reference Range Interpretation Comments B/C Ratio (test code = B/C Ratio) 16 1 6-25 [facility]annCHEM GOUSS0581-62-50 07:24:00* Test Item Value Reference Range Interpretation Comments A/G Ratio (test code = A/G Ratio) 0.3 1 0.7-1.6 [facility]annCHEM XGUYW6938-49-94 07:24:0099[facility]annCHEM PANEL 2017-09-16 07:24:0086[facility] HermannCHEM RQBJV7343-98-06 07:24:001.5[facility] HermannCHEM NEHOF5985-74-23 07:24:007.7[facility]annCHEM NUCEC2447-98-10 07:24:75465Ixatgigc HermannCHEM DDIMO3234-15-26 07:24:64706Ctqtuwss HermannCHEM DQQAP1962-89-34 07:24:004.7[facility] HermannCHEM QNJQX6581 07:24:008.3 [facility]annCHEM NLQKV6355-80-65 07:24:0026[facility] HermannCHEM PANEL 2017-09-16 07:24:007.8[facility] HermannCHEM PBPKU9037-12-16 07:24:0033[facility] HermannCHEM SZOYS8637-19-44 07:24:001.8[facility] HermannCHEM ENNFZ7368-35-50 07:24:000.82[facility] HermannCHEM ARDUZ5956-40-31 07:24:0013[facility] HermannCHEM YXPJE1332-31-04 07:24:59223Vhqhscqf HermannCHEM FVGBE6076-19-93 07:24:0095 [facility]annCHEM AMQTT3137-07-93 07:24:86460Giqjcuou HermannURINE AND STOOL 2017-09-16 07:24:004.0[facility]annURINE AND AIXLN6335-20-37 07:24:00Negative (09/16/17 2:24 AM)[facility] AND GLQPC5063-07-79 07:24:00Negative (09/16/17 2:24 AM)[facility] TRAYC1955-16-74 07:24:003[facility]annUR[facility] AND FCZCV6302-33-39 07:24:0069[facility]annURINE AND STOOL 2017-09-16 07:24:00Slight *ABN*(09/16/17 2:24 AM)[facility] STOOL 2017-09-16 07:24:00* Test Item Value Reference Range Interpretation Comments UA Spec Grav (test code = UA Spec Grav) 1.019 1 [facility] AND WJGBW2655-72-54 07:24:00* Test Item Value Reference Range Interpretation Comments UA pH (test code = UA pH) 6.0 1 5.0-8.0 [facility] ENYLB2260-90-34 07:24:00Moderate *ABN*(09/16/17 2:24 AM) [facility] AND YVLZA1131-19-23 07:24:00Negative *NA*(09/16/17 2:24 AM) [facility] Osnumik2473-11-16 16:48:00* Test Item Value Reference Range Interpretation Comments Blood Culture (test code = 69475790) NO GROWTH AFTER 5 DAYS, FINAL REPORT [facility] A IgM Mflnchhr0911-13-90 10:18:00* Test Item Value Reference Range Interpretation Comments Hepatitis A IgM Antibody (test code = 44477-3) Negative [facility] B Surface Zstdexb6308-36-93 10:18:00* Test Item Value Reference Range Interpretation Comments Hepatitis B Surface Antigen (test code = 5196-1) Negative [facility] B Core IgM Wownykgs2150-26-12 10:18:00* Test Item Value Reference Range Interpretation Comments Hepatitis B Core IgM Antibody (test code = 69430-6) Negative [facility] C Nwbnekvj3001-43-39 10:18:00* Test Item Value Reference Range Interpretation Comments Hepatitis C Antibody (test code = 56564-4) 11.0- Reference Range: 0.0 - 0.9 s/co ratioNegative: < 0.8Indeterminate: 0.8 - 0.9Positive: > 0.9 The CDC recommends that a positive HCV antibody result be followed up with a HCV Nucleic Acid Amplification test (527058).Results called to SERG LINTON RN at 1017 on 06/20/17 by Michael Whalen. RB [place].Testing performed by:[address] [phone]: Lopez Morgan [facility] CampusPlatelet Jojwrbii9052-74-99 10:18:00* Test Item Value Reference Range Interpretation Comments Platelet Estimate (test code = 02809-5) SLIGHTLY DECREASED [facility] Brook[facility]atelet Morphology Eiqvgzr9937-69-30 10:18:00* Test Item Value Reference Range Interpretation Comments Platelet Morphology Comment (test code = 59058-1) FEW GIANT [facility] BrookHypochromasia2018-04-09 10:18:00* Test Item Value Reference Range Interpretation Comments Hypochromasia (test code = 728-6) MODERATE [facility] BrookPoikilocytosis2018-04-09 10:18:00* Test Item Value Reference Range Interpretation Comments Poikilocytosis (test code = 779-9) SLIGHT [facility] BrookAnisocytosis2018-04-09 10:18:00* Test Item Value Reference Range Interpretation Comments Anisocytosis (test code = 702-1) SLIG [facility] BrookRed Cell Morphology Igjcrfd3019-57-91 10:18:00* Test Item Value Reference Range Interpretation Comments Red Cell Morphology Comment (test code = 6742-1) NORMAL [facility] BrookProthrombin Ymeh6912-76-17 08:34:00* Test Item Value Reference Range Interpretation Comments Prothrombin Time (test code = 5902-2) 18.4 11.9-14.5 H [facility] BrookProthromb Time International Ratio 2017-06-19 08:34:00* Test Item Value Reference Range Interpretation Comments Prothromb Time International Ratio (test code = 6301-6) 1.66 Oral Anticoagulant Therapy INR Values:1. Low Intensity Therapy 1.5 - 2.02 . Moderate Intensity Therapy 2.0 - 3.03. High Intensity Therapy(1) 2.5 - 3. 54. High Intensity Therapy(2) 3.0 - 4.05. Panic Value INR > 5.0 [facility] BrookActivated Partial Thromboplast Time 2017-06-19 08:34:00* Test Item Value Reference Range Interpretation Comments Activated Partial Thromboplast Time (test code = 98536-0) 37.5 23.8-35.5 H [facility] BrookTotal Vdgbyfewx6050-71-22 08:09:00* Test Item Value Reference Range Interpretation Comments Total Bilirubin (test code = 1975-2) 2.0 0.2-1.2 [facility] Axfrn3350-11-20 08:01:00* Test Item Value Reference Range Interpretation Comments Sodium Level (test code = 2951-2) 131 136-145 L [facility] BrookPotassium Psdhy1161-37-79 08:01:00* Test Item Value Reference Range Interpretation Comments Potassium Level (test code = 2823-3) 3.5 3.5-5.1 [facility] BrookChloride Qpvbe7083-73-85 08:01:00* Test Item Value Reference Range Interpretation Comments Chloride Level (test code = 2075-0) 102 98-107 [facility] BrookCarbon Dioxide Rayje7889-56-72 08:01:00* Test Item Value Reference Range Interpretation Comments Carbon Dioxide Level (test code = 2028-9) 27 22-29 [facility] BrookAnion Iov7474-16-54 08:01:00* Test Item Value Reference Range Interpretation Comments Anion Gap (test code = 12061-3) 5.5 8-16 L [facility] BrookBlood Urea Lzlisqgp2232-57-88 08:01:00* Test Item Value Reference Range Interpretation Comments Blood Urea Nitrogen (test code = 3094-0) 8 7-26 [facility] BrookCreatinine2018-04-09 08:01:00* Test Item Value Reference Range Interpretation Comments Creatinine (test code = 2160-0) 0.85 0.72-1.25 [facility] BrookBUN/Creatinine Paoqv6897-79-58 08:01:00* Test Item Value Reference Range Interpretation Comments BUN/Creatinine Ratio (test code = 3097-3) 9 6-25 [facility] BrookEstimat Glomerular Filtration Rate 2017-06-19 08:01:00* Test Item Value Reference Range Interpretation Comments Estimat Glomerular Filtration Rate (test code = 39003-8) 60- >60 Ranges were taken from the National Kidney Disease Education Program and the [facility] literature.Reference ranges:60 or greater: Qybwft50-38 ( for 3 consecutive months): Chronic kidney disease 15 or less: Kidney failureAdventHealth Rollins BrookGlucose Jxcgo4997-75-92 08:01:00* Test Item Value Reference Range Interpretation Comments Glucose Level (test code = DLD0851) 121 74-118 H [facility] BrookCalcium Tquap2629-63-28 08:01:00* Test Item Value Reference Range Interpretation Comments Calcium Level (test code = 38249-6) 7.3 8.4-10.2 L [facility] BrookAspartate Amino Transf (AST/SGOT) 2017-06-19 08:01:00* Test Item Value Reference Range Interpretation Comments Aspartate Amino Transf (AST/SGOT) (test code = Aspartate Amino Transf (AST/SGOT)) 51 5-34 H [facility] BrookAlanine Aminotransferase (ALT/SGPT) 2017-06-19 08:01:00* Test Item Value Reference Range Interpretation Comments Alanine Aminotransferase (ALT/SGPT) (test code = 1742-6) 17 0-55 [facility] BrookTotal Neneplz4795-62-06 08:01:00* Test Item Value Reference Range Interpretation Comments Total Protein (test code = 2885-2) 6.5 6.5-8.1 [facility] BrookAlbumin2018-04-09 08:01:00* Test Item Value Reference Range Interpretation Comments Albumin (test code = 1751-7) 1.6 3.5-5.0 L [facility] BrookGlobulin2018-04-09 08:01:00* Test Item Value Reference Range Interpretation Comments Globulin (test code = 63063-1) 4.9 2.3-3.5 H [facility] BrookAlbumin/Globulin Iatch0212-21-52 08:01:00 * Test Item Value Reference Range Interpretation Comments Albumin/Globulin Ratio (test code = 1759-0) 0.3 0.8-2.0 L [facility] BrookAlkaline Lnzuhzasbpo5794-86-08 08:01:00* Test Item Value Reference Range Interpretation Comments Alkaline Phosphatase (test code = 6768-6) 47 40-150 [facility] BrookWhite Blood Yijph7496-75-02 07:48:00* Test Item Value Reference Range Interpretation Comments White Blood Count (test code = 6690-2) 2.52 4.8-10.8 L [facility] BrookRed Blood Nztdz3764-20-93 07:48:00* Test Item Value Reference Range Interpretation Comments Red Blood Count (test code = 789-8) 2.78 4.3-5.7 L [facility] BrookHemoglobin2018-04-09 07:48:00* Test Item Value Reference Range Interpretation Comments Hemoglobin (test code = 42940-8) 9.3 14.0-18.0 L [facility] BrookHematocrit2018-04-09 07:48:00* Test Item Value Reference Range Interpretation Comments Hematocrit (test code = 4544-3) 27.3 38.2-49.6 L [facility] BrookMean Corpuscular Gpahlp3379-15-77 07:48:00* Test Item Value Reference Range Interpretation Comments Mean Corpuscular Volume (test code = 787-2) 98.2 81-99 [facility] BrookMean Corpuscular Zvekjuogbi3730-35-10 07:48:00* Test Item Value Reference Range Interpretation Comments Mean Corpuscular Hemoglobin (test code = 785-6) 33.5 28-32 H [facility] BrookMean Corpuscular Hemoglobin Concent 2017-06-19 07:48:00* Test Item Value Reference Range Interpretation Comments Mean Corpuscular Hemoglobin Concent (test code = 786-4) 34.1 31-35 [facility] BrookRed Cell Distribution Asivk7921-14-49 07:48:00* Test Item Value Reference Range Interpretation Comments Red Cell Distribution Width (test code = 87257-3) 15.1 11.7 -14.4 H [facility] BrookPlatelet Ugmii7931-97-69 07:48:00* Test Item Value Reference Range Interpretation Comments Platelet Count (test code = 777-3) 46 140-360 LL Results called to SOILA JACKRN at 0748 on 06/19/17 by Michael Whalen. RB [place].[facility] BrookNeutrophils (%) (Auto)2017-06-19 07:48:00* Test Item Value Reference Range Interpretation Comments Neutrophils (%) (Auto) (test code = 11770-2) 48.0 38.7-80.0 [facility] BrookLymphocytes (%) (Auto)2017-06-19 07:48:00 * Test Item Value Reference Range Interpretation Comments Lymphocytes (%) (Auto) (test code = 736-9) 27.0 18.0-39.1 [facility] BrookMonocytes (%) (Auto)2017-06-19 07:48:00* Test Item Value Reference Range Interpretation Comments Monocytes (%) (Auto) (test code = 5905-5) 16.3 4.4-11.3 H [facility] BrookEosinophils (%) (Auto)2017-06-19 07:48:00 * Test Item Value Reference Range Interpretation Comments Eosinophils (%) (Auto) (test code = 713-8) 7.9 0.0-6.0 H [facility] BrookBasophils (%) (Auto)2017-06-19 07:48:00* Test Item Value Reference Range Interpretation Comments Basophils (%) (Auto) (test code = 706-2) 0.4 0.0-1.0 [facility] BrookIM GRANULOCYTES %2017-06-19 07:48:00* Test Item Value Reference Range Interpretation Comments IM GRANULOCYTES % (test code = IM GRANULOCYTES %) 0.4 0.0- 1.0 [facility] BrookNeutrophils # (Auto)2017-06-19 07:48:00* Test Item Value Reference Range Interpretation Comments Neutrophils # (Auto) (test code = 751-8) 1.2 2.1-6.9 L [facility] BrookLymphocytes # (Auto)2017-06-19 07:48:00* Test Item Value Reference Range Interpretation Comments Lymphocytes # (Auto) (test code = 63700-8) 0.7 1.0-3.2 L [facility] BrookMonocytes # (Auto)2017-06-19 07:48:00* Test Item Value Reference Range Interpretation Comments Monocytes # (Auto) (test code = 742-7) 0.4 0.2-0.8 [facility] BrookEosinophils # (Auto)2017-06-19 07:48:00* Test Item Value Reference Range Interpretation Comments Eosinophils # (Auto) (test code = 711-2) 0.2 0.0-0.4 [facility] BrookBasophils # (Auto)2017-06-19 07:48:00* Test Item Value Reference Range Interpretation Comments Basophils # (Auto) (test code = 704-7) 0.0 0.0-0.1 [facility] BrookAbsolute Immature Granulocyte (auto 2017-06-19 07:48:00* Test Item Value Reference Range Interpretation Comments Absolute Immature Granulocyte (auto ([place] t code = Absolute Immature Granulocyte (auto) 0.01 0-0.1 [facility] BrookDifferential Total Cells Counted 2017-06-16 09:31:00* Test Item Value Reference Range Interpretation Comments Differential Total Cells Counted (test code = Differen tial Total Cells Counted) 100 [facility] BrookNeutrophils % (Manual)2017-06-16 09:31:00 * Test Item Value Reference Range Interpretation Comments Neutrophils % (Manual) (test code = 41921-1) 73 40-74 [facility] BrookLymphocytes % (Manual)2017-06-16 09:31:00 * Test Item Value Reference Range Interpretation Comments Lymphocytes % (Manual) (test code = 737-7) 14 19-48 L [facility] BrookMonocytes % (Manual)2017-06-16 09:31:00* Test Item Value Reference Range Interpretation Comments Monocytes % (Manual) (test code = 744-3) 2 3.4-9.0 L [facility] BrookEosinophils % (Manual)2017-06-16 09:31:00 * Test Item Value Reference Range Interpretation Comments Eosinophils % (Manual) (test code = 714-6) 8 0-7 H [facility] BrookBasophils % (Manual)2017-06-16 09:31:00* Test Item Value Reference Range Interpretation Comments Basophils % (Manual) (test code = 85647-3) 1 0-1.5 [facility] BrookMetamyelocytes %2017-06-16 09:31:00* Test Item Value Reference Range Interpretation Comments Metamyelocytes % (test code = 740-1) 2 0-0 H [facility] BrookVitamin B12 Yrlxi3894-41-52 07:59:00* Test Item Value Reference Range Interpretation Comments Vitamin B12 Level (test code = 31551-2) 887 213-816 H [facility] BrookFolate2018-04-06 07:59:00* Test Item Value Reference Range Interpretation Comments Folate (test code = 2284-8) 10.3 7.0-15.4 [facility] BrookFerritin2018-04-06 07:39:00* Test Item Value Reference Range Interpretation Comments Ferritin (test code = 2276-4) 220.60 21.81-274.66 [facility] BrookIron Numht8418-51-19 07:25:00* Test Item Value Reference Range Interpretation Comments Iron Level (test code = 2498-4) 102 65-175 [facility] BrookTotal Iron Binding Ktksgqse7100-11-49 07:25:00* Test Item Value Reference Range Interpretation Comments Total Iron Binding Capacity (test code = 2500-7) 274 261-4 78 [facility] BrookPercent Iron Kdyfsilejj2319-50-24 07:25:00* Test Item Value Reference Range Interpretation Comments Percent Iron Saturation (test code = 2502-3) 37 15-50 [facility] BrookTransferrin2018-04-06 07:25:00* Test Item Value Reference Range Interpretation Comments Transferrin (test code = 3034-6) 196 174-364 [facility] BrookDirect Mvxqstopq5407-87-46 07:22:00* Test Item Value Reference Range Interpretation Comments Direct Bilirubin (test code = 19457-0) 2.0 0.0-0.5 H [facility] BrookAmylase Txlvz6222-53-87 07:22:00* Test Item Value Reference Range Interpretation Comments Amylase Level (test code = 1798-8) 65 25-125 [facility] BrookLipase2018-04-06 07:22:00* Test Item Value Reference Range Interpretation Comments Lipase (test code = 3040-3) 16 8-78 [facility] BrookPercent Reticulocyte Aofts8748-30-83 07:04:00* Test Item Value Reference Range Interpretation Comments Percent Reticulocyte Count (test code = 93879-8) 2.6 0.8-2 .2 H [facility] BrookAmmonia2018-04-05 21:00:00* Test Item Value Reference Range Interpretation Comments Ammonia (test code = 87884-0) 58 31-123 [facility] BrookBody Fluid Vywdijtvllg5895-96-15 18:25:00 * Test Item Value Reference Range Interpretation Comments Body Fluid Neutrophils (test code = 86235-0) 11 MESOTHELIAL CELLS SEEN, RESULTED "OTHER"[facility] Fluid Btgczhbkwem7243-50-81 18:25:00* Test Item Value Reference Range Interpretation Comments Body Fluid Lymphocytes (test code = 11614560) 15 [facility] BrookBody Fluid Xqlfcryij8994-39-01 18:25:00* Test Item Value Reference Range Interpretation Comments Body Fluid Monocytes (test code = 89064-6) 64 [facility] BrookBody Fluid Other Yimuj8058-60-10 18:25:00 * Test Item Value Reference Range Interpretation Comments Body Fluid Other Cells (test code = 920935262) 10 [facility] BrookBody Fluid Total Cells Gbfbutj9031-12-69 18:25:00* Test Item Value Reference Range Interpretation Comments Body Fluid Total Cells Counted (test code = 91057-6) 100 [facility] BrookBody Fluid Etvcthp3400-51-25 18:25:00* Test Item Value Reference Range Interpretation Comments Body Fluid Comment (test code = Body Fluid Comment) SEE COMMENT [facility] Occult Mxxlw3064-24-48 18:21:00* Test Item Value Reference Range Interpretation Comments Stool Occult Blood (test code = 2335-8) POSITIVE NEGATIVE H [facility] BrookBody Fluid Llgn2739-75-93 17:33:00* Test Item Value Reference Range Interpretation Comments Body Fluid Type (test code = 53914-7) PERITONEAL RIGHT ABD FLUIDAdventHealth Rollins BrookBody Fluid Cuhmr2625-30-31 17:33:00* Test Item Value Reference Range Interpretation Comments Body Fluid Color (test code = 6824-7) YELLOW [facility] Fluid Ziiumwzcny3649-52-59 17:33:00 * Test Item Value Reference Range Interpretation Comments Body Fluid Appearance (test code = 9335-1) CLOUDY [facility] BrookBody Fluid RAQ3601-06-45 17:33:00* Test Item Value Reference Range Interpretation Comments Body Fluid WBC (test code = 6743-9) 163 [facility] BrookBody Fluid PSS6241-31-17 17:33:00* Test Item Value Reference Range Interpretation Comments Body Fluid RBC (test code = 6741-3) 1519 [facility] BrookUrine SVH5686-30-18 16:17:00* Test Item Value Reference Range Interpretation Comments Urine WBC (test code = 5821-4) NONE 0-5 [facility] BrookUrine HJN2689-36-05 16:17:00* Test Item Value Reference Range Interpretation Comments Urine RBC (test code = 04450-8) 11-20 0-5 H [facility] BrookUrine Qmglmizj2300-46-99 16:17:00* Test Item Value Reference Range Interpretation Comments Urine Bacteria (test code = 82843-7) NONE NONE [facility] BrookUrine Epithelial Krnzl4315-29-23 16:17:00 * Test Item Value Reference Range Interpretation Comments Urine Epithelial Cells (test code = 40636-6) NONE NONE [facility] BrookUrine Eclrs8785-30-00 15:54:00* Test Item Value Reference Range Interpretation Comments Urine Color (test code = 5778-6) ORANGE YELLOW H [facility] BrookUrine Npmjbtz5630-28-25 15:54:00* Test Item Value Reference Range Interpretation Comments Urine Clarity (test code = 54397-5) CLOUDY CLEAR H [facility] BrookUrine Specific Wpipmno4383-66-50 15:54:00 * Test Item Value Reference Range Interpretation Comments Urine Specific [place] (test code = 5811-5) 1.010 1.010-1.02 5 [facility] BrookUrine sU6336-00-13 15:54:00* Test Item Value Reference Range Interpretation Comments Urine pH (test code = 20219-7) 7 5-7 [facility] Leukocyte Oyyyfmga0300-86-60 15:54:00* Test Item Value Reference Range Interpretation Comments Urine Leukocyte Esterase (test code = 5799-2) NEGATIVE NEGATIVE [facility] Slnrodg1303-76-90 15:54:00* Test Item Value Reference Range Interpretation Comments Urine Nitrite (test code = 19896-2) NEGATIVE NEGATIVE [facility] Vvljnaa2160-34-95 15:54:00* Test Item Value Reference Range Interpretation Comments Urine Protein (test code = 5804-0) 1+ NEGATIVE H [facility] Glucose (UA)2017-06-15 15:54:00* Test Item Value Reference Range Interpretation Comments Urine Glucose (UA) (test code = 2349-9) NEGATIVE NEGATIVE [facility] Tuggyeh0858-37-25 15:54:00* Test Item Value Reference Range Interpretation Comments Urine Ketones (test code = 06978-7) TRACE NEGATIVE H [facility] Iogjnvpgxujr3007-85-88 15:54:00* Test Item Value Reference Range Interpretation Comments Urine Urobilinogen (test code = 07299-1) 8 0.2-[address] [facility] Amwasbjba5831-23-78 15:54:00* Test Item Value Reference Range Interpretation Comments Urine Bilirubin (test code = 1978-6) 2+ NEGATIVE H Confirmatory test currently unavailable. False positive results may occur.[facility] Hqpoy3932-83-21 15:54:00* Test Item Value Reference Range Interpretation Comments Urine Blood (test code = 30409-1) 2+ NEGATIVE H [facility] [address] [address] Patient Name: JOCELIN CORREA MR #: [id number] : 1970 Age/Sex: 47/M Req #: [id number] Adm Physician: ROME HOPPER MD Ordered by: AMARA GUTHRIE MD Report #: [id number] Location: MED/SURG Room/Bed: [facility] Procedure: [id number] US/US LIVER Exam Date: 06/20/17 Exam Time: [...] TO: AMARA GUTHRIE MD CT ABDOMEN/PELVIS [place] [address] [address] Patient Name: JOCELIN CORREA MR #: [id number] : 1970 Age/Sex: 47/M Req #: [id number] Adm Physician: Ordered by: EZ MANDUJANO MD Report #: [id number] Location: ER Room/Bed: Procedure: [id number] CT/CT ABDOMEN/PELVIS W Exam Date: Exam Time: REPORT STATUS: Signed CT OCEDURE: CT ABDOMEN AND PELVIS WITH CONTRAST [...] 2. Large volume ascites. Given fever, con solar sales consultant correlation for SBP. 3. Splenomegaly likely related to portal hypertens ion. Dictated by: Deandre Gan M.D. on 06/15/2017 at 14:50 Electronically approved by: Deandre Gan M.D. on 06/15/2017 at 14:50 Dictated By: DEANDRE GAN MD 1450 Transcribed By: MARCO on 06/15/17 1450 COPY TO: EZ MANDUJANO MD US GUIDED PARACENTESIS [address] [address] Patient Name: JOCELIN CORREA MR #: [id number] : 1970 Age/Sex: 47/M Req #: [id number] Adm Physician: ROME HOPPER MD Ordered by: JESUS MARKS WINDING MACHINE OPERATOR Report #: [id number] Location: [facility] Room/Bed: [place] [address] Procedure: [id number] US /US GUIDED PARACENTESIS Exam Date: 06/15/17 [...]
== END 2019-10-08 16:45 | disposition home or self-care (01) | DRG 432 ==
LOC: ER 07:50 → ERHOLD 12:38 → MED/SURG 15:32
PROVIDERS: ADMIT Family Medicine; ATTEND Family Medicine
PROC: 0W9G3ZZ Drainage of Peritoneal Cavity, Percutaneous Approach (ICD-10-PCS; 2019-10-02)
PROC: 30233N1 Transfusion of Nonautologous Red Blood Cells into Peripheral Vein, Percutaneous Approach (ICD-10-PCS; principal; 2019-10-05)
DX: K70.31 Alcoholic cirrhosis of liver with ascites (principal); K55.039 Acute (reversible) ischemia of large intestine, extent unspecified; I81 Portal vein thrombosis; K56.690 Other partial intestinal obstruction; K76.6 Portal hypertension; I10 Essential (primary) hypertension; Z86.19 Personal history of other infectious and parasitic diseases; D63.8 Anemia in other chronic diseases classified elsewhere; K72.90 Hepatic failure, unspecified without coma; E88.09 Other disorders of plasma-protein metabolism, not elsewhere classified; D89.0 Polyclonal hypergammaglobulinemia; F10.20 Alcohol dependence, uncomplicated; K70.10 Alcoholic hepatitis without ascites; Z79.01 Long term (current) use of anticoagulants; T51.0X1A Toxic effect of ethanol, accidental (unintentional), initial encounter; D69.59 Other secondary thrombocytopenia; K21.9 Gastro-esophageal reflux disease without esophagitis
CPT/HCPCS: 36415; 49083; 71045; 74019; 74177; 76705; 80053; 81001; 82140; 82550; 82553; 82607; 82728; 82746; 83540; 83690; 83735; 84466; 84484; 85025; 85045; 85610; 86850; 86900; 86920; 87070; 87205; 89051; 93005; 99285; J0696; J1170; J2270; J2405; J2765; J3411; J3430; J3480; J7030; J7050; P9016; Q9967; U0002

== ENCOUNTER 2020-01-20 08:09 | Observation (INO) | payer MEDICARE ==
[~2020-01-20] VITALS: Ht 175.3 cm; Wt 99.8 kg
--- OUTSIDE RECORDS SUMMARY | 2020-01-20 09:03 | XMS REPORT | Continuity of Care Document ---
Author Author [facility] t Organization [facility] Address [address] [place] [address] Phone Unavailable Care Team Providers Care Fine Patcher Name Role Phone Jennifer GARRISON III PCP [...] Number Effective Date Expiration Date Greg kidd [facility] Medicare Complete [id number] 2019 00:00:00 [facility] Problems Condition Name Condition Details Condition Category Status Onset Date Resolution Date Last Treatment Date Treating Clinician Comments Source Hematuria Condition Active 2019-03-29 00:00:00 11:29:13 [facility] Active 2019-02-27 00:00:00 02-27 09:46:22 [facility]a Condition Active 2019-02-27 00:00:00 2019-02-27 09:46:22 [facility] Hepatitis C, chronic Condition Active 2019-02-27 00:00:00 2019-02-27 09:46:22 [facility] Liver cirrhosis Condition Active 2019-02-27 00:00:00 28-02-18 09:46:22 [facility] ABDOMINAL PAIN ABDO YOLIS PAIN Active 02/26/2019 [facility] Active 2019-02-26 00:00:00 2019-02-26 16:11:00 [facility] ABD PAIN ABD PAIN Active 08/24/2018 [facility] Active 2018-08-24 00:00:00 2018-08-24 21:51:00 [facility] BLOODY STOOL/STOMACH PAIN BLOO DY STOOL/STOMACH PAIN Active 06/01/2018 [facility] Diagnosis Active 2018-06-01 00:00: 00 2018-06-01 10:32:00 [facility] GIB, LIVER CIRRHOSIS, ABD PAIN, PORTAL V GIB, LIVER CIRRHOSIS, ABD PAIN, PORTAL V Active 06/01/2018 [facility] Diagnosis Active 2018-06-01 00:00:00 2018-06-06 16:57:00 [facility] HEADACHE HEAD ACHE Active 04/18/2018 [facility] Active 2018-04-18 00:00:00 2019-07-01 13:22:00 [facility] OTHER OTHE R Active 09/16/2017 [facility] Diagnosis Active 2017-09-16 00:00:00 2017-11-16 10:48:00 [facility] Abdominal pain Abdominal pain Problem Active [facility] Alcoholic cirrhosis of liver with ascites Alcoholic ci rrhosis of liver with ascites Problem Active [facility] Fever Fever Problem Active [facility] Portal vein thrombosis Problem Active [facility] Pancytopenia Problem Active [facility] Hyponatremia Problem Active [facility] Gastrointestinal hemorrhage Problem Active [facility] Small bowel obstruction Problem Active [facility] Abdominal ascites Problem Active [facility] Headache Head ache 11/05/2018 [facility] Problem 2018-11-05 16:44:23 [facility] Liver disease, unspecified Tonya er disease, unspecified 11/05/2018 [facility] Problem 2018-11-05 16:44:2 3 [facility] Chest pain, unspecified Ches t pain, unspecified 11/05/2018 [facility] Problem 2018-11-05 16:44:23 [facility] GASTROINTESTINAL HEMORRHAGE, UNSPECIFIED GASTROINTESTINAL HEMORRHAGE, UNSPECIFIED Active [facility] Diagnosis Active 2018-06-06 16:57:00 Nash Dos Santos UNSPECIFIED CIRRHOSIS OF LIVER UNSPECIFIED CIRRHOSIS OF LIVER Active [facility] Diagnosis Active 201 11-13-26 16:57:00 [facility] UNSPECIFIED ABDOMINAL PAIN UNS PECIFIED ABDOMINAL PAIN Active [facility] Diagnosis Active 2018-06-06 16:57:0 0 Tahira Dos Santos Encounter for examination and observation following ot her accident Encounter for examination and observation following other accident 04/24/2018 11/05/2018 [facility] Problem 2018-04-24 05:08:12 2018 16:44:23 2018-11-05 16:44:23 Tahira Dos Santos Unspecified abdominal pain Uns pecified abdominal pain 09/16/2017 09/19/2017 [facility] [place] Problem 2017-09-16 05:00 :00 2017-09-19 01:50:07 2017-09-19 01:50:07 Tahira lopez Allergies, Adverse Reactions, Alerts Allergy Name Allergy Type Status Severity Reaction(s) Onset Date Inacti ve Date Treating Clinician Comments Source No Known Allergies DA Active U 2019-01-15 00:00:00 [facility] No Known Allergies DA Active U 2018-05-05 00:00:00 [facility] No Known Allergies DA Active U 2018-04-09 00:00:00 [facility] No Known Allergies DA Active U 2017-12-18 00:00:00 [facility] No Known Allergies DA Active U 2017-08-03 00:00:00 [facility] No Known Allergies DA Active U 2017-06-03 00:00:00 [facility] No Known Medication Allergies No Known Medication Allergies Active Tahira Dos Santos Social History Social Habit Start Date Stop Date Quantity Comments Source time of call 2019-06-11 12:03:49 2019-06-11 12:03:49 06/11/2019 12:04 PM [facility] is there any chance that you could be ? 2019-03-28 0 8:32:24 2019-03-28 08:32:24 No [facility] drug use, illicit 2019-03-28 08:32:24 2019-03-28 08:32:24 Never [facility] alcohol use 2019-03-28 08:32:24 2019-03-28 08:32:24 Previously [facility] passive cigarette smoke exposure 2019-03-28 08:32:24 2019-03-28 08:32 :24 No [facility] social history reviewed E&M 2019-03-28 08:32:24 2019-03-28 08:32 :24 reviewed today [facility] Occupation #1 2019-02-27 08:37:46 2019-02-27 08:37:46 [facility] 2019-02-27 08:37:46 2019-02-27 08:3 7:46 No [facility] Social History 2018-06-02 00:41:01 2018-06-02 00:41:01 Tahira Dos Santos Sex Assigned At 1970 00:00:00 1970 00:00:00 Male [facility] Smoking Status Start Date Stop Date Source Smokes tobacco daily (finding) 2019-03-28 08:32:24 [facility] Medications Ordered Medication Name Filled Medication Name Start Date Stop Da te Current Medication? Ordering Clinician Indication Dosage Frequency Signature (SIG) Comments Components Source Cefdinir (Omnicef) 300 Mg CAPSULE Cefdinir (Omnicef) 300 Mg CAPSULE 2019-09-02 09:43:00 Yes 300 Twice A Day [facility] Furosemide Furosemide 2019-09-02 09:41:00 Yes 20 Twi ce A Day [facility] Magnesium Oxide (Mag-Oxide) 400 Mg TABLET Magnesium Ox kassy (Mag-Oxide) 400 Mg TABLET 2019-09-02 09:41:00 Yes 400 Twice A Day [facility] Midodrine Hcl Midodrine Hcl 2019-09-02 09:41:00 Yes 10 Three Times A Day At 8:00AM, 12:00PM, And 4:00PM [facility] Potassium Chloride (K Dur*) 10 Meq TABCR Potassium Chl oride (K Dur*) 10 Meq TABCR 2019-09-02 09:41:00 Yes 20 Twice A Day [facility] Apixaban (Eliquis) 2.5 Mg TABLET Apixaban (Eliquis) 2.5 Mg T ABLET 2019-08-29 12:22:00 Yes 2.5 Twice A Day [facility] Ascorbic Acid Ascorbic Acid 2019-08-29 12:22:00 Yes 500 Daily [facility] Docusate Sodium Docusate Sodium 2019-08-29 12:22:00 Yes 100 Daily [facility] Ferrous Sulfate Ferrous Sulfate 2019-08-29 12:22:00 Yes 325 Daily [facility] Pantoprazole Sodium (Protonix) 40 Mg TABLET. Pantopr azole Sodium (Protonix) 40 Mg TABLET. 2019-08-29 12:22:00 Yes 40 Twice Daily Before Meals [facility] Tizanidine Hcl Tizanidine Hcl 2019-08-29 12:22:00 Yes 4 Twice A Day as needed for Muscle Cramps [facility] Tramadol Hcl (Ultram 50MG*) 50 Mg TAB Tramadol Hcl (Ultram 5 0MG*) 50 Mg TAB 2019-08-29 12:22:00 Yes 50 Every 6 Hours as n eeded for Pain [facility] Levofloxacin (Levaquin) 500 Mg TABLET Levofloxacin (Levaquin ) 500 Mg TABLET 2019-08-16 17:45:00 2019-08-24 00:00:00 No 500 Daily [facility] Pantoprazole Sodium (Protonix) 40 Mg TABLET. Pantopr azole Sodium (Protonix) 40 Mg TABLET. 2019-08-16 13:12:2019-09-02 00:00:00 No 40 Daily@0600 [facility] Furosemide (Lasix) 40 Mg TABLET Furosemide (Lasix) 40 Mg TAB LET 2019-08-16 13:12:00 2019-08-29 00:00:00 No 40 Daily [facility] Spironolactone Spironolactone 2019-08-16 13:12:00 2019-08-29 00:00:00 No 50 Daily [facility] Lactulose Lactulose 2019-08-16 13:12:2019-08-24 00:00:00 No 20 Daily [facility] ZOFRAN (ONDANSETRON HCL) 4 MG TABS 2019-03-28 00:00:00 202 00:00:00 No take As Needed 3 times daily for nausea [facility] ZOFRAN (ONDANSETRON HCL) 4 MG TABS 2019-02-27 00:00:00 Yes Vane Ana Laura take 1 tablet 3 times daily for nausea prn [facility] Saline Flush 0.9% 2019-02-26 17:34:00 No Notes: Same as: BD Posiflush Sterile [facility] Saline Flush 0.9% 2018-08-25 02:09:00 No Notes: (Same as: BD Posiflush) [facility] Rocephin 2018-08-04 10:01:00 No 1 gm, Route: IVPB, Drug form: PDR/INJ, ONCE, Dosing Weight 90.909, kg, Priority: STAT, Start date: 08/04/18 5:01:00 CDT, Stop date: 08/04/18 5:01:00 CDT, ABX Indication: Intra-abdominal Infection [facility] Fentanyl 2018-08-04 06:35:00 No 50 microgram, Route: IVP, ONCE, Dosing Weight 90.909, kg, Priority: STAT, Start date: 08/04/18 1:35:00 CDT, Stop date: 08/04/18 1:35:00 CDT [facility] tiffanie Zofran 2018-08-04 06:34:00 No 4 mg, Route: IVP, Drug form: INJ, ONCE, Dosing Weight 90.909, kg, Priority: STAT, Start date: 08/04/18 1:34:00 CDT, Stop date: 08/04/18 1:34:00 [facility] 2018-08-04 06:28:00 No 25 microgram, Route: IVP, ONCE, Dosing Weight 90.909, kg, Priority: STAT, Start date: 08/04/18 1:28:00 CDT, Stop date: 08/04/18 1:28:00 CDT [facility] tiffanie Octreotide 2018-08-04 06:26:00 No 50 microgram, Route: IV, ONCE, Dosing Weight 90.909, kg, Start date: 08/04/18 1:26:00 CDT, Stop date: 08/04/18 1:26:00 CDT [facility] pantoprazole 2018-08-04 06:26:00 No 80 mg, Route: IVP, ONCE, Dosing Weight 90.909, kg, Priority: STAT, Start date: 08/04/18 1:26:00 CDT, Stop date: 08/04/18 1:26:00 CDT [facility] Sodium Chloride 0.9% (Bolus) IV 2018-08-04 06:26:00 No 1,000 mL, Infuse Over: 1 hr, Route: IV, ONCE, Priority: STAT, Dosing Weight 90.909 kg, Start date: 08/04/18 1:26:00 CDT, Stop date: 08/04/18 1:26:00 CDT [facility] Spironolactone 2018-06-06 14:00:00 No Notes: (Same As: Aldactone) [facility] Furosemide 40 MG Oral Tablet 2018-06-06 14:00:00 No Notes: (Same as: Lasix) May cause GI upset. Give with food or milk. [facility] Folic Acid 2018-06-06 14:00:00 No Notes: (S faheem as: Folvite) [facility] riFAXimin 550 mg oral tablet 2018-06-05 22:30:00 Yes 550 mg = 1 tab, PO, Q12H, # 60 tab, 0 Refill(s), Pharmacy: [facility]/pharmacy #[id number] [facility] Ondansetron 4 MG Oral Tablet [Zofran] 2018-06-05 22:21:00 Y es 4 mg = 1 tab, PO, Q8H, PRN Nausea/vomiting, # 15 tab, 0 Refill(s), Pharmacy: [facility]/pharmacy #[id number] [facility] Lactulose 667 MG/ML Oral Solution 2018-06-05 22:21:00 Yes 10 gm = 15 mL, PO, TID, PRN Titrate to 2-3 soft bowel movements a day, X 30 day, # 900 mL, 0 Refill(s), Pharmacy: [facility]/pharmacy #[id number] [facility] pantoprazole 40 mg oral enteric coated tablet 2018-06-05 22:21:0 0 Yes 40 mg = 1 tab, PO, Before Breakfast, # 3 0 tab, 0 Refill(s), Pharmacy: [facility]/pharmacy #[id number] [facility] tramadol hydrochloride 50 MG Oral Tablet 2018-06-05 16:57:00 Yes 50 mg = 1 tab, PO, Q8H, PRN Pain Score 7-10, X 7 day, # 20 tab, 0 Refill(s) [facility] Ferrlecit 2018-06-05 14:00:00 No Notes: (sodium ferric gluconate complex (elemental iron) 62.5 mg/5 ml INJ) "Limited stability. Use immediately after admixture" (Same as: Ferrlecit) MEDICATION WASTE Product Size: 62.5 mg Product Wasted: ___ mg Angeles Friedman Flagyl 2018-06-05 02:00:00 No Notes: (Same as: Flagyl) Take with food/ avoid alcohol [facility] Golytely 2018-06-04 19:47:00 No Notes: ([facility] e as: Nulytely) [facility] Bisacodyl 2018-06-04 19:47:00 No Notes: (Same As: Dulcolax, Correctol) (Do Not Crush) "Do Not Crush" [facility] Hydromorphone 2018-06-04 17:43:00 No Notes: (Same as: Dilaudid) [facility] Lactulose 667 MG/ML Oral Solution 2018-06-04 02:00:00 No Notes: (Same as:Chronulac) [facility] rifaximin 2018-06-04 02:00:00 No Notes: [facility] as: Xifaxan [facility] Lactulose 667 MG/ML Oral Solution 2018-06-03 14:00:00 No Notes: (Same as:Chronulac) [facility] pantoprazole 2018-06-03 12:30:00 No Notes: Tablet should not be chewed or crushed. (Same as: Protonix) [facility] lidoc[facility] (ANES) 2018-06-02 19:57:00 No Route: IV, Drug form: INJ, ONCE, Stop date: 06/02/18 14:57:00 CDT [facility] propofol (ANES) 2018-06-02 19:57:00 No Route: IV, Drug form: INJ, ONCE, Stop date: 06/02/18 14:57:00 CDT [facility] Sodium Chloride 0.9% IV 1,000 mL 2018-06-02 19:36:00 No 1,000 mL, Rate: 25 ml/hr, Infuse over: 40 hr, Route: IV, Dosing Weight 87.091 kg, Total Volume: 1,000, Start date: 06/02/18 14:36:00 CDT, Duration: 30 day, Stop date: 07/02/18 14:35:00 CDT, 2.08, m2 [facility] Rocephin 2018-06-02 06:00:00 No 1 gm, Route: IVPB, Drug form: PDR/INJ, [id number], Dosing Weight 87.091, kg, Start date: 06/02/18 1:00:00 CDT, Duration: 5 day, Stop date: 06/06/18 1:00:00 CDT, ABX Indication: Intra- abdominal Infection [facility] potassium chloride 2018-06-02 05:00:00 No Notes: Infuse at a rate of 10 mEq/hr. (Same as: KCL) [facility] tiffanie Potassium Chloride 2018-06-02 04:04:00 No 20 mEq, Route: IVPB, ONCE, Dosing Weight 87.091, kg, Start date: 06/01/18 23:04:00 CDT, Stop date: 06/01/18 23:04:00 CDT [facility] Ceftriaxone 2018-06-02 04:00:00 No Notes: (Same As: Rocephin). Use with 100 mL NS and infuse over 30 min MEDICATION WASTE Product Size: 1000 mg Product Wasted: ___ mg [facility] octreotide 1,250 microgram + Sodium Chloride 0.9% IV 248.75 mL 2018-06-02 03:26:00 No 248.75 mL, Rate: 10 ml/hr, Infuse over: 25 hr, Route: IV, Dosing Weight 87.091 kg, Total Volume: 250, Start date: 06/01/18 22:26:00 CDT, Duration: 30 day, Stop date: 07/01/18 22:25:00 CDT, 2.08, m2 [facility] Octreotide 2018-06-02 03:26:00 No Notes: (Same As: SandoSTATIN). Refrigerate. MEDICATION WASTE Product Size: 50 microgram Product Wasted: ___ microgram [facility] Flagyl 2018-06-02 02:00:00 No Notes: (Same as: Flagyl) Avoid alcohol. [facility] Tramadol 2018-06-02 01:13:00 No Notes: Not to exceed 400mg/day. (Same As: Ultram) [facility] Hydromorphone 2018-06-02 01:13:00 No Notes: Same as: Dilaudid [facility] Ondansetron 2018-06-02 01:12:00 No Notes: (Same as: Zofran) MEDICATION WASTE Product Size: 4 mg Product Wasted: ___ mg [facility] Melatonin 2018-06-02 01:12:00 No Notes: (Sa me as: Melatonin) [facility] Bisacodyl 2018-06-02 01:12:00 No Notes: (Same As: Dulcolax, Bisco-Lax) [facility] Dextrose 50% Syringe 2018-06-02 01:12:00 No 12.5 gm, 25 mL, Route: IVP, Drug Form: INJ, Dosing Weight 87.091, kg, PRN, PRN Blood Glucose Results, Start date: 06/01/18 20:12:00 CDT, Duration: 30 day, Stop date: 07/01/18 20:11:00 CDT [facility] Glucagon 2018-06-02 01:12:00 No 1 mg, Route: IM, Drug form: PDR/INJ, PRN, Dosing Weight 87.091, kg, PRN Blood Glucose Results, Start date: 06/01/18 20:12:00 CDT, Duration: 30 day, Stop date: 07/01/18 20:11:00 CDT [facility] Calcium Gluconate 2018-06-02 01:11:00 No Notes: WASTE[facility] F[facility]P - Sink[facility] Magn[facility] S[facility]ate 2018-06-02 01:11:00 No Notes: WASTE: F/P - Sink; [facility] Potassium Chloride 2018-06-02 01:11:00 No Notes: (Same as: K-Dur 20) "Do Not Crush" Give with food and full glass of water For patients unable to swallow tablet, dissolve in one half glass of water. Allow about 2 minutes for the tablets to disintegrate. Stir before giving to prepare slurry and administer. Please exclude Patient s with feeding tube less than 14 [place] (Dobhoff, J-tube etc) and pediatric and patients. [facility] potassium phosphate-sodium phosphate 250 mg-280 mg-160 mg oral powder for reconstitution 2018-06-02 01:11:00 No Notes: (Same as: Phos-NaK) Each 1.5 gm pkt has 250mg phosphorous. Mix w/2.5oz water and stir. [facility] potassium phosphate 2018-06-02 01:11:00 No Notes: (Same as: K Phosphate.) Do not infuse phosphorous concurrently in the same line as TPN or IVF that contains calcium. For double lumen central lines, phosphorous may be infused in a separate lumen from TPN. 1 mMol phoshate has 1.47 mEq potassium Infuse over 4 hours [facility] sodium phosphate 2018-06-02 01:11:00 No Notes: Infuse over 4 hour. Do not infuse phosphorous concurrently in the same line as TPN or IVF that contains calcium. For double lumen central lines, phosphorous may be infused in a separate lumen from TPN. [facility] Magnesium Oxide 2018-06-02 01:11:00 No Notes: (Same as: Mag-Ox 400) Magnesium oxide [id number] elemental magnesium Dose=____mg magnesium oxide (___mg elemental magnesium) [facility] Ciprofloxacin 2018-06-02 01:09:00 No Notes: Do not refrigerate [facility] tramadol hydrochloride 50 MG Oral Tablet 2018-06-02 01:02:00 No 50 mg = 1 tab, PO, Q6H, PRN Pain, # 40 tab, 0 Refill(s) [facility] Folic Acid 1 MG Oral Tablet 2018-06-02 01:02:00 Yes 1 mg = 1 tab, PO, Daily, # 30 tab, 0 Refill(s) Juve Dos Santos spironolactone 50 mg oral tablet 2018-06-02 01:02:00 Yes 50 mg = 1 tab, PO, Daily, # 90 tab, 1 [facility]ill([facility]) [facility] F[facility] 40 MG Oral Tablet 2018-06-02 [...] No Notes: (Same as: Pneumovax 23) Refrigerate [facility] tiffanie influenza virus vaccine, inactivated 2018-06-02 00:50:04 No Notes: (Same as: Fluzone Quadrivalent, Fluarix Quadrivalent) For 3 years of age and older (0.5 mL IM) Shake well before use [facility] pantoprazole additive 80 mg + Sodium Chloride 0.9% IV 100 mL 2018-06-01 22:40:00 No Notes: For IV push reconstitute with 10 ml 0.9% sodium chloride and push over 2 minutes. (Same as: Protonix) [facility] Protonix 2018-06-01 22:40:00 No Notes: For IV push reconstitute with 10 ml 0.9% sodium chloride and push over 2 minutes. (Same as: Protonix) [facility] Sodium Chloride 0.9% (Bolus) IV 2018-06-01 21:42:00 No 1,000 mL, Infuse Over: 1 hr, Route: IV, ONCE, Priority: STAT, Dosing Weight 90.909 kg, Start date: 06/01/18 16:42:00 CDT, Stop date: 06/01/18 16:42:00 CDT [facility] Zofran 2018-06-01 21:41:00 No 4 mg, Route: IVP, Drug form: INJ, ONCE, Dosing Weight 90.909, kg, Priority: STAT, Start date: 06/01/18 16:41:00 CDT, Stop date: 06/01/18 16:41:00 CDT [facility] Morphine 2018-06-01 21:41:00 No 4 mg, Route: IVP, ONCE, Dosing Weight 90.909, kg, Priority: STAT, Start date: 06/01/18 16:41:00 CDT, Stop date: 06/01/18 16:41:00 CDT [facility] pantoprazole 2018-06-01 14:59:00 No Notes: For IV push reconstitute with 10 ml 0.9% sodium chloride and push over 2 minutes. (Same as: Protonix) [facility] Saline Flush 0.9% 2018-06-01 14:59:00 No Notes: (Same as: BD Posiflush) [facility] Sodium Chloride 0.9% (Bolus) IV 2018-06-01 14:59:00 No 1,000 mL, 1000 ml/hr, Infuse Over: 1 hr, Route: IV, 1,000, Drug form: INJ, ONCE, Priority: STAT, Dosing Weight 90.909 kg, Start date: 06/01/18 9:59:00 CDT, Stop date: 06/01/18 9:59:00 CDT [facility] pantoprazole 2018-05-31 18:30:00 Yes Notes: For IV push reconstitute with 10 ml 0.9% sodium chloride and push over 2 minutes. (Same as: Protonix) [facility] Saline Flush 0.9% 2018-05-31 18:30:00 No Notes: (Same as: BD Posiflush) [facility] Saline Flush 0.9% 2018-04-18 23:16:00 No Notes: (Same as: BD Posiflush) [facility] Fentanyl 2017-09-16 19:34:00 No Notes: (Same as: Sublimaze) Preservative free. [facility] Saline Flush 0.9% 2017-09-16 19:29:00 No 10 mL, Route: IVP, Drug Form: INJ, Dosing Weight 77, kg, PRN, PRN Line Flush, Start date: 09/16/17 14:29:00 CDT, Duration: 30 day, Stop date: 10/16/17 14:28:00 CDT [facility] Fentanyl 2017-09-16 15:34:00 No 25 microgram, Route: IV, ONCE, Dosing Weight 74.091, kg, Start date: 09/16/17 10:34:00 CDT, Stop date: 09/16/17 10:34:00 CDT [facility] Phenergan 2017-09-16 07:39:00 No 12.5 mg, Route: IVPB, ONCE, Dosing Weight 81.818, kg, Priority: STAT, Start date: 09/16/17 2:39:00 CDT, Stop date: 09/16/17 2:39:00 CDT [facility] Morphine 2017-09-16 07:39:00 No 4 mg, Route: IVP, ONCE, Dosing Weight 81.818, kg, Priority: STAT, Start date: 09/16/17 2:39:00 CDT, Stop date: 09/16/17 2:39:00 CDT [facility] Saline Flush 0.9% 2017-09-16 07:12:00 No Notes: (Same as: BD Posiflush) [facility] GI cocktail 2017-09-16 07:02:00 No Notes: G.I. Cocktail = antacid with simethicone 22.5 mL - lidocaine viscous 7.5 mL [facility] Lactulose Lactulose 2019-08-29 00:00:00 No 30 Three Times A Day [facility] Levofloxacin (Levaquin) 500 Mg TABLET Levofloxacin (Levaquin) 50 0 Mg TABLET 2019-08-29 00:00:00 No 500 Daily [facility] Tizanidine Hcl Tizanidine Hcl 2019-08-29 00:00:00 No 4 Twice A Day as needed for Muscle Cramps [facility] Furosemide (Lasix) 40 [...] 1 Each TABLET 2019-08-14 00:00:00 No 300 [id number] as needed f or Pain [facility] Immunizations Ordered Immunization Name Filled Immunization Name Date Status Comments Source Engerix-B IM 20 MCG/ML [id number] 2019-04-09 10:34: 00 Completed [facility] Vital Signs Vital Name Observation Time Observation Value Comments Source Body Temperature 2019-10-08 16:34:00 98.3 [degF] [facility] BMI (Body Mass Index) 2019-10-06 00:14:00 32.9 kg/m2 [facility] Weight 2019-10-01 07:39:00 223 [lb_av] [facility] Body Temperature 2019-09-02 15:44:00 99.4 [degF] [facility] Weight 2019-09-02 00:16:00 223.04 [lb_av] [facility] BMI (Body Mass Index) 2019-09-02 00:16:00 32.9 kg/m2 [facility] Body Temperature 2019-08-16 22:21:00 98.2 [degF] [facility] BMI (Body Mass Index) 2019-08-14 20:11:00 30.7 kg/m2 [facility] Weight 2019-08-14 19:00:00 207.56 [lb_av] [facility] temperature site 2019-04-09 10:23:37 oral Lega cy [facility] temperature E&M 2019-04-09 10:23:37 97.9 [degF] [facility] blood pressure, diastolic 2019-03-28 08:32:24 107 mm[Hg] [facility] blood pressure, systolic 2019-03-28 08:32:24 151 mm[Hg] [facility] oxygen saturation, oximetry 2019-03-28 08:32:24 99 % [facility] respiratory rate E&M 2019-03-28 08:32:24 18 /min [facility] pulse rate E&M 2019-03-28 08:32:24 115 /min [facility] temperature E&M 2019-03-28 08:32:24 99.7 [degF] [facility] E&M 2019-03-28 08:32:24 195 [lb_av] [facility] weight in kilograms E&M 2019-03-28 08:32:24 88.64 kg [facility] height in centimeters E&M 2019-03-28 08:32:24 175.26 cm [facility] temperature site 2019-03-28 08:32:24 oral Lega cy [facility] blood pressure, diastolic 2019-02-27 08:37:46 88 mm[Hg] [facility] blood pressure, systolic 2019-02-27 08:37:46 144 mm[Hg] [facility] oxygen saturation, oximetry 2019-02-27 08:37:46 99 % [facility] respiratory rate E&M 2019-02-27 08:37:46 16 /min [facility] pulse rate E&M 2019-02-27 08:37:46 105 /min [facility] temperature site 2019-02-27 08:37:46 oral Lega [facility] temperature E&M 2019-02-27 08:37:46 99.5 [degF] Legac y [facility] weight E&M 2019-02-27 08:37:46 202.20 [lb_av] [facility] weight in kilograms E&M 2019-02-27 08:37:46 91.91 kg [facility] height in centimeters E&M 2019-02-27 08:37:46 175.26 cm [facility] Systolic (mm Hg) 2019-02-26 17:26:00 Ton rial [place] Diastolic (mm Hg) 2019-02-26 17:26:00 [facility] [place] Heart Rate 2019-02-26 17:26:00 [facility] [place] Respitory Rate 2019-02-26 17:26:00 [facility] [place] Temperature Oral (F) 2019-02-26 17:26:00 97.9 F [facility] [place] Weight 2019-02-26 17:26:00 [facility] [place] Temperature Oral (F) 2018-08-25 01:56:00 98.2 F [facility] [place] Systolic (mm Hg) 2018-08-25 01:56:00 Ton [facility] [place] Diastolic (mm Hg) 2018-08-25 01:56:00 [facility] [place] Respitory Rate 2018-08-25 01:56:00 [facility] [place] Heart Rate 2018-08-25 01:56:00 [facility] [place] Respitory Rate 2018-08-04 09:30:00 [facility] [place] Temperature Oral (F) 2018-08-04 09:30:00 97.9 F [facility] [place] Systolic (mm Hg) 2018-08-04 09:30:00 Ton [facility] [place] Diastolic (mm Hg) 2018-08-04 09:30:00 [facility] [place] BMI Calculated 2018-08-04 05:02:00 [facility] [place] Respitory Rate 2018-08-04 05:02:00 [facility] [place] Height 2018-08-04 05:02:00 175.26 cm [facility] [place] Weight 2018-08-04 05:02:00 [facility] [place] Temperature Oral (F) 2018-08-04 05:02:00 98.1 F [facility] [place] Systolic (mm Hg) 2018-08-04 05:02:00 Ton rial [place] Diastolic (mm Hg) 2018-08-04 05:02:00 [facility] [place] Heart Rate 2018-08-04 05:02:00 [facility] [place] Systolic (mm Hg) 2018-06-05 21:30:00 Ton [facility] [place] Diastolic (mm Hg) 2018-06-05 21:30:00 [facility] [place] Respitory Rate 2018-06-05 21:30:00 [facility] [place] Systolic (mm Hg) 2018-06-05 21:15:00 Ton rial [place] Diastolic (mm Hg) 2018-06-05 21:15:00 [facility] [place] Respitory Rate 2018-06-05 21:15:00 [facility] [place] Systolic (mm Hg) 2018-06-05 21:00:00 Ton [facility] [place] Diastolic (mm Hg) 2018-06-05 21:00:00 Mem [facility] [place] Respitory Rate 2018-06-05 21:00:00 [facility] [place] Heart Rate 2018-06-05 16:11:00 [facility] [place] Temperature Oral (F) 2018-06-05 16:11:00 98.1 F [facility] [place] Temperature Oral (F) 2018-06-05 12:11:00 98 F [facility] [place] Heart Rate 2018-06-05 12:11:00 [facility] [place] Temperature Oral (F) 2018-06-05 08:10:00 98.1 F [facility] [place] Heart Rate 2018-06-05 08:10:00 [facility] [place] BMI Calculated 2018-06-02 00:42:00 [facility] [place] Weight 2018-06-02 00:42:00 [facility] [place] Height 2018-06-02 00:42:00 175.26 cm [facility] [place] Weight 2018-06-01 14:58:00 [facility] [place] Weight 2018-05-31 18:08:00 [facility] [place] Height 2018-05-31 18:08:00 175.26 cm [facility] [place] BMI Calculated 2018-05-31 18:08:00 [facility] [place] Systolic (mm Hg) 2018-05-31 18:08:00 Ton rial [place] Diastolic (mm Hg) 2018-05-31 18:08:00 [facility] [place] Respitory Rate 2018-05-31 18:08:00 [facility] [place] Heart Rate 2018-05-31 18:08:00 [facility] [place] Temperature Oral (F) 2018-05-31 18:08:00 98.2 F [facility] [place] Systolic (mm Hg) 2018-04-18 23:05:00 Ton [facility] [place] Diastolic (mm Hg) 2018-04-18 23:05:00 [facility] [place] Heart Rate 2018-04-18 23:05:00 [facility] [place] Respitory Rate 2018-04-18 23:05:00 [facility] [place] Temperature Oral (F) 2018-04-18 23:05:00 98.5 F [facility] [place] Height 2018-04-18 23:05:00 175.26 cm [facility] [place] BMI Calculated 2018-04-18 23:05:00 [facility] [place] Weight 2018-04-18 23:05:00 [facility] [place] Weight 2017-09-16 19:15:00 [facility] [place] BMI Calculated 2017-09-16 19:15:00 [facility] [place] Height 2017-09-16 19:15:00 175.26 cm [facility] [place] Temperature Oral (F) 2017-09-16 19:15:00 99.1 F [facility] [place] Respitory Rate 2017-09-16 19:15:00 [facility] [place] Heart Rate 2017-09-16 19:15:00 [facility] [place] Systolic (mm Hg) 2017-09-16 19:15:00 Ton [facility] [place] Diastolic (mm Hg) 2017-09-16 19:15:00 [facility] [place] Temperature Oral (F) 2017-09-16 16:04:00 98.9 F [facility] [place] Respitory Rate 2017-09-16 16:04:00 [facility] [place] Systolic (mm Hg) 2017-09-16 16:04:00 Ton [facility] [place] Diastolic (mm Hg) 2017-09-16 16:04:00 Mem [facility] [place] Systolic (mm Hg) 2017-09-16 15:01:00 Ton rial [place] Diastolic (mm Hg) 2017-09-16 15:01:00 [facility] [place] Respitory Rate 2017-09-16 15:01:00 [facility] [place] Height 2017-09-16 14:07:00 175.26 cm [facility] [place] BMI Calculated 2017-09-16 14:07:00 [facility] [place] Weight 2017-09-16 14:07:00 [facility] [place] Systolic (mm Hg) 2017-09-16 14:03:00 Ton rial [place] Diastolic (mm Hg) 2017-09-16 14:03:00 Mem [facility] [place] Respitory Rate 2017-09-16 14:03:00 [facility] [place] Temperature Oral (F) 2017-09-16 13:01:00 99.0 F [facility] [place] Heart Rate 2017-09-16 11:10:00 [facility] [place] Heart Rate 2017-09-16 09:30:00 [facility] [place] Weight 2017-09-16 06:48:00 [facility] [place] Temperature Oral (F) 2017-09-16 06:48:00 99 F [facility] [place] Heart Rate 2017-09-16 06:48:00 [facility] [place] Procedures Procedure Date / Time Performed Performing Clinician [facility] e US Abdomen limited 2019-10-07 00:00:00 [facility] Computed tomography of abdomen and pelvis with contrast 00:00:00 [facility] US guided paracentesis 2019-10-02 00:00:00 [facility] Computed tomography of abdomen and pelvis with contrast 00:00:00 [facility] US Abdomen limited 2019-09-02 00:00:00 [facility] Computed tomography of chest without contrast 2019-09-01 00:00:0 0 [facility] Computed tomography of abdomen and pelvis with contrast 00:00:00 [facility] TRANSFUSE NONAUT RED BLOOD CELLS IN CENTRAL VEIN, PERC 2019-08-12 6 00:00:00 [facility] US Abdomen limited 2019-08-26 00:00:00 [facility] Ultrasound, renal 2019-08-26 00:00:00 [facility] X-ray of chest, two views 2019-08-25 00:00:00 I [facility] Computed tomography of abdomen and pelvis with contrast 00:00:00 [facility] TRANSFUSE NONAUT RED BLOOD CELLS IN PERIPH VEIN, PERC 2019-08-16 00:00:00 [facility] TRANSFUSE NONAUT PLATELETS IN PERIPH VEIN, PERC 2019-08-15 00:00 :00 [facility] Computed tomography of abdomen and pelvis with contrast 00:00:00 [facility] Computed tomography of brain without radiopaque contrast 2019-08 00:00:00 [facility] First Vx - Ix admin for Medicare patients 2019-04-09 10:33:15 Iv sharmaine [facility] Engerix-B Injection Suspension 20 MCG/ML 2019-04-09 10:33:15 [facility] - Print Consent/Declination Forms 2019-03-14 8 10:23:04 Ana Laura, [facility] Venipuncture 2019-03-28 09:36:19 Ana Laura [facility] Exploratory laparotomy [facility] Plan of Care Planned Activity Planned Date Details Comments Source Instructions Abdominal Pain - Adult [facility] Instructions GI Bleeding [facility] Encounters Start Date/Time End Date/Time Encounter Type Admission Type Attendi [facility] Care Department Encounter ID Source 2019-10-01 12:38:00 2019-10-08 16:45:00 Discharged Inpatient 1 RICO ELIAS [facility] [id number] [facility] 2019-08-23 16:10:00 2019-09-02 19:01:00 Discharged Inpatient 1 DAVI KELLY [facility] [id number] [facility] 2019-08-15 11:21:00 2019-08-16 23:20:00 Discharged Inpatient 1 GOLDEN WANG [facility] [id number] [facility] 2019-06-11 00:00:00 2019-06-11 00:00:00 Office Visit Jonelle Heard Jacklyn Zuniga Flores, Westley Avendano [facility] Encount er/[id number] [facility] 2019-04-17 00:00:00 2019-04-17 00:00:00 Office Visit Mir Mendoza [id number] [facility] 2019-04-17 00:00:00 2019-04-17 00:00:00 Office Visit Mir Putnam [facility], Vane Munguia [facility] Encount er/[id number] [facility] 2019-04-16 00:00:00 2019-04-16 00:00:00 Office Visit Status, Fax [facility] Encounter/[id number] [facility] 2019-04-16 00:00:00 2019-04-16 00:00:00 Office Visit Status, Fax [facility] Encounter/[id number] [facility] 2019-04-16 00:00:00 2019-04-16 00:00:00 Office Visit Status, Fax [facility] Encounter/[id number] [facility] 2019-04-16 00:00:00 2019-04-16 00:00:00 Office Visit Status, Fax [facility] Encounter/[id number] [facility] 2019-04-16 00:00:00 2019-04-16 00:00:00 Office Visit Status, Fax [facility] Encounter/[id number] [facility] 2019-04-09 00:00:00 2019-04-09 00:00:00 Office Visit Vane Du [facility] Encounter/[id number] [facility] 2019-04-09 00:00:00 2019-04-09 00:00:00 Office Visit I Vane toth Adriana [facility] Encounter/[id number] [facility] 2019-04-02 00:00:00 2019-04-02 00:00:00 Office Visit Mir Putnam, Jonelle Porter, Sisi Pagan, Jayleen Lal, Jo Bosch Critical [facility] Services Contact Center Encounter/[id number] [facility] 2019-04-02 00:00:00 2019-04-02 00:00:00 Office Visit G Sisi ross Deborath [facility] Encounter/[id number] [facility] 2019-03-29 00:00:00 2019-03-29 00:00:00 Office Visit Status, Fax [facility] Encounter/[id number] [facility] 2019-03-29 00:00:00 2019-03-29 00:00:00 Office Visit Status, Fax [facility] Encounter/[id number] [facility] 2019-03-29 00:00:00 2019-03-29 00:00:00 Office Visit Status, Fax [facility] Encounter/[id number] [facility] 2019-03-29 00:00:00 2019-03-29 00:00:00 Office Visit I Vane toth Shakira [facility] Encounter/[id number] [facility] 2019-03-29 00:00:00 2019-03-29 00:00:00 Office Visit Vane Du [facility] Encounter/[id number] [facility] 2019-03-28 00:00:00 2019-03-28 00:00:00 Office Visit I Vane toth Iris Granados, Deborath [facility] Encounter/[id number] [facility] 2019-03-28 00:00:2019-03-28 00:00:00 Office Visit Vane Du [facility] Encounter/[id number] [facility] 2019-03-28 00:00:00 2019-03-28 00:00:00 Office Visit I navneet Mir Cunningham [facility] Encounter/[id number] [facility] 2019-02-27 00:00:00 2019-02-27 00:00:00 Office Visit Status, Fax [facility] Encounter/[id number] [facility] 2019-02-27 00:00:00 2019-02-27 00:00:00 Office Visit Status, Fax [facility] Encounter/[id number] [facility] 2019-02-27 00:00:00 2019-02-27 00:00:00 Office Visit Status, Fax Critical [facility] Services Encounter/[id number] [facility] 2019-02-27 00:00:00 2019-02-27 00:00:00 Office Visit V Jonelle anderson, Leti Phillips, Keli Stephenson Critical access hospital Services Contact Center Encounter/[id number] [facility] 2019-02-27 00:00:00 2019-02-27 00:00:00 Office Visit Vane Du [facility] Encounter/[id number] [facility] 2019-02-27 00:00:00 2019-02-27 00:00:00 Office Visit I ishabeboVane Shakira Granados, Deborath [facility] Encounter/[id number] [facility] 2019-02-26 11:19:29 2019-02-26 14:42:00 Outpatient Mary Banks [facility] [id number] 2019-02-26 11:19:00 2019-02-26 11:19:00 Emergency E MHSE [facility]SE [facility] 2018-08-24 20:55:56 2018-08-25 00:12:00 Outpatient Mary Banks [facility] [id number] 2018-08-24 20:55:00 2018-08-24 20:55:00 Emergency E MHSE [facility]SE [facility] 2018-08-03 23:59:28 2018-08-04 05:44:00 Outpatient Mary Banks ep MHSE MHSE [id number] 2018-08-03 23:59:00 2018-08-03 23:59:00 Emergency E MHSE [facility]SE [id number] 2018-06-01 09:37:00 2018-06-05 18:35:00 Outpatient Nabeel Hough i MHPL MHPL [id number] 2018-05-31 12:19:00 2018-05-31 19:22:00 Outpatient Mary Banks ep MHSE MHSE [id number] 2018-04-18 16:46:00 2018-04-18 20:32:00 Outpatient Iheme, Varinder U MHSE MHSE [id number] 2018-04-18 16:46:00 2018-04-18 20:32:00 Outpatient Iheme, Varinder U MHSE MHSE [id number] 2018-04-18 16:46:00 2018-04-18 16:46:00 Emergency E MHSE MHSE [facility] 2017-09-16 13:46:00 2017-09-16 15:34:00 Outpatient F laneyyvonnereva Pauline Benitez MHPL MHPL [id number] 2017-09-16 01:41:00 2017-09-16 12:59:00 Outpatient Zandra Justice MHSE MHSE [id number] 2017-06-15 15:53:00 2017-06-20 17:14:00 Discharged Inpatient ER [facility] [id number] [facility] Results Test Description Test Time Test Comments Results Result Comments Source ABDOMEN 2 VIEW 2019-10-07 09:33:00 [facility] [address] [place] [address] Patient Name: JOCELIN CORREA MR #: [id number] : 1970 Age/Sex: 49/M Req #: [id number] Adm Physician: ELIAS GÓMEZ MD Ordered by: TYREL MURILLO MD Report #: [id number] Location: MED/SURG Room/Bed: [facility] Procedure: [id number] DX/ABDOMEN 2 VIEW Exam Date: 10/07/19 Exam [...] TYREL MURILLO MD ABDOMEN LIMITED 2019-10-07 09:09:00 [place] [address] Patient Name: JOCELIN CORREA MR #: [id number] : 1970 Age/Sex: 49/M Req #: [id number] Adm Physician: ELIAS GÓMEZ MD Ordered by: ELIAS GÓMEZ MD Report #: [id number] Location: MED/SURG Room/Bed: [facility] Procedure: [id number] US/US ABDOMEN LIMITED Exam Date: 10/07/19 Exam [...] Count (test code = 6690-2) 2.50 4.8-10.8 [facility] (number/volume)2019-10-07 04:50:00* Test Item Value Reference Range Interpretation Comments Red Blood Count (test code = 789-8) 3.08 4.3-5.7 [facility] measurement (moles/volume)2019-10-07 04:50:00* Test Item Value Reference Range Interpretation Comments Hemoglobin (test code = 67039-1) 9.0 14.0-18.0 [facility] hematocrit (volume fraction)2019-10-07 04:50:00* Test Item Value Reference Range Interpretation Comments Hematocrit (test code = 4544-3) 28.5 38.2-49.6 [facility] eryth[facility] mean corpuscular egkofd0974-39-18 04:50:00* Test Item Value Reference Range Interpretation Comments Mean Corpuscular Volume (test code = 787-2) 92.5 81-99 [facility] mean corpuscular hemoglobin (mass per erythrocyte)2019-10-07 04:50:00* Test Item Value Reference Range Interpretation Comments Mean Corpuscular Hemoglobin (test code = 785-6) 29.2 28-32 [facility] mean corpuscular hemoglobin concentration measurement (mass/volume)2019-10-07 04:50:00* Test Item Value Reference Range Interpretation Comments Mean Corpuscular Hemoglobin Concent (test code = 786-4) 31.6 31-35 [facility] CenterRDW KfqIw-Dya7248-69-27 04:50:00* Test Item Value Reference Range Interpretation Comments Red Cell Distribution Width (test code = 03497-2) 28.4 11.7 -14.4 [facility] platelet count (count/volume)2019-10-07 04:50:00* Test Item Value Reference Range Interpretation Comments Platelet Count (test code = 777-3) 47 140-360 Results repeated and called to dianelys aguilera rn at 0519 on 10/07/19 by Rupert Lazaro. Read back and verified.This test has been rerun and double checked fo r accuracy.[facility] segmented neutrophil count as percentage of total ekyhnjfkon2774-79-89 04:50:00* Test Item Value Reference Range Interpretation Comments Neutrophils (%) (Auto) (test code = 25009-1) 48.0 38.7-80.0 [facility] lymphocyte count as percentage ot total kfkdtanion2573-43-25 04:50:00* Test Item Value Reference Range Interpretation Comments Lymphocytes (%) (Auto) (test code = 736-9) 22.8 18.0-39.1 [facility] Center[facility] monocyte count as percentage of total enuiokjyqn3791-52-48 04:50:00* Test Item Value Reference Range Interpretation Comments Monocytes (%) (Auto) (test code = 5905-5) 16.0 4.4-11.3 [facility] eosinophil count as percentage of total ulmplcqbnk5085-22-37 04:50:00* Test Item Value Reference Range Interpretation Comments Eosinophils (%) (Auto) (test code = 713-8) 12.4 0.0-6.0 [facility] Center[facility] basophil count as percentage of total iawhlomirq8254-20-51 04:50:00* Test Item Value Reference Range Interpretation Comments Basophils (%) (Auto) (test code = 706-2) 0.4 0.0-1.0 [facility] CenterFluoroscopic procedure less than one hour mlhgkhkt9462-98-76 04:50:00* Test Item Value Reference Range Interpretation Comments IM GRANULOCYTES % (test code = IM GRANULOCYTES %) 0.4 0.0- 1.0 [facility] Center[facility] neutrophil count 2019-10-07 04:50:00* Test Item Value Reference Range Interpretation Comments Neutrophils # (Auto) (test code = 751-8) 1.2 2.1-6.9 [facility] lymphocytes count (number/volume) 2019-10-07 04:50:00* Test Item Value Reference Range Interpretation Comments Lymphocytes # (Auto) (test code = 05664-2) 0.6 1.0-3.2 [facility] monocytes automated count (number/volume)2019-10-07 04:50:00* Test Item Value Reference Range Interpretation Comments Monocytes # (Auto) (test code = 742-7) 0.4 0.2-0.8 [facility] Center[facility] blood eosinophil count 2019-10-07 04:50:00* Test Item Value Reference Range Interpretation Comments Eosinophils # (Auto) (test code = 711-2) 0.3 0.0-0.4 [facility] CenterAutom[facility] blood basophil count (count/volume)2019-10-07 04:50:00* Test Item Value Reference Range Interpretation Comments Basophils # (Auto) (test code = 704-7) 0.0 0.0-0.1 [facility] CenterFluoroscopic procedure less than one hour tdsieqmd4793-70-10 04:50:00* Test Item Value Reference Range Interpretation Comments Absolute Immature Granulocyte (auto ([place] t code = Absolute Immature Granulocyte (auto) 0.01 0-0.1 [facility] sodium measurement (moles/volume)2019-10-07 04:50:00* Test Item Value Reference Range Interpretation Comments Sodium Level (test code = 2951-2) 134 136-145 [facility] potassium measurement (moles/volume)2019-10-07 04:50:00* Test Item Value Reference Range Interpretation Comments Potassium Level (test code = 2823-3) 3.4 3.5-5.1 [facility] chloride measurement (moles/volume)2019-10-07 04:50:00* Test Item Value Reference Range Interpretation Comments Chloride Level (test code = 2075-0) 108 98-107 [facility] carbon dioxide, total measurement (moles/volume)2019-10-07 04:50:00* Test Item Value Reference Range Interpretation Comments Carbon Dioxide Level (test code = 2028-9) 22 22-29 [facility] anion [id number] 04:50:00* Test Item Value Reference Range Interpretation Comments Anion Gap (test code = 99941-0) 7.4 8-16 [facility] urea nitrogen measurement (mass/volume)2019-10-07 04:50:00* Test Item Value Reference Range Interpretation Comments Blood Urea Nitrogen (test code = 3094-0) < 5 7-26 [facility] creatinine measurement (mass/volume)2019-10-07 04:50:00* Test Item Value Reference Range Interpretation Comments Creatinine (test code = 2160-0) 0.77 0.72-1.25 [facility] or plasma urea nitrogen/creatinine mass flpmp8097-65-83 04:50:00* Test Item Value Reference Range Interpretation Comments BUN/Creatinine Ratio (test code = 3097-3) 6 6-25 [facility] CenterEstimated glomerular filtration rate (GFR) ktramzsffewqw7392-90-78 04:50:00* Test Item Value Reference Range Interpretation Comments Estimat Glomerular Filtration Rate (test code = 443635952) > 60 >60 Ranges were taken from the National Kidney Disease Education Program and the [employer] literature.Reference ranges:60 or greater: Cltcwz10-45 ( for 3 consecutive months): Chronic kidney disease 15 or less: Kidney failureChildress Regional Medical CenterGlucose iaqnypnqluh6017-00-79 04:50:00* Test Item Value Reference Range Interpretation Comments Glucose Level (test code = QUX6697) 109 74-118 [facility] or plasma calcium measurement (mass/volume)2019-10-07 04:50:00* Test Item Value Reference Range Interpretation Comments Calcium Level (test code = 57530-3) 7.2 8.4-10.2 [facility] or plasma total bilirubin measurement (mass/volume)2019-10-07 04:50:00* Test Item Value Reference Range Interpretation Comments Total Bilirubin (test code = 1975-2) 1.5 0.2-1.2 [facility] CenterFluoroscopic procedure less than one hour niyvwmvj5790-41-16 04:50:00* Test Item Value Reference Range Interpretation Comments Aspartate Amino Transf (AST/SGOT) (test code = Aspartate Amino Transf (AST/SGOT)) 27 5-34 [facility]ererum or plasma alanine aminotransferase measurement (enzymatic activity/volume)2019-10-07 04:50:00* Test Item Value Reference Range Interpretation Comments Alanine Aminotransferase (ALT/SGPT) (test code = 1742-6) 9 0-55 [facility]ererum or plasma protein measurement (mass/volume)2019-10-07 04:50:00* Test Item Value Reference Range Interpretation Comments Total Protein (test code = 2885-2) 6.7 6.5-8.1 [facility]ererum or plasma albumin measurement (mass/volume)2019-10-07 04:50:00* Test Item Value Reference Range Interpretation Comments Albumin (test code = 1751-7) 2.0 3.5-5.0 [facility] CenterPlasma globulin measurement (mass/volume) 2019-10-07 04:50:00* Test Item Value Reference Range Interpretation Comments Globulin (test code = 52945-5) 4.7 2.3-3.5 [facility]ererum or plasma albumin/globulin mass uvgaa5804-05-94 04:50:00* Test Item Value Reference Range Interpretation Comments Albumin/Globulin Ratio (test code = 1759-0) 0.4 0.8-2.0 [facility]ererum or plasma alkaline phosphatase measurement (enzymatic activity/volume)2019-10-07 04:50:00* Test Item Value Reference Range Interpretation Comments Alkaline Phosphatase (test code = 6768-6) 47 40-150 [facility] CenterCT ABDOMEN/PELVIS Z2945-80-69 00:51:00 [facility] [address] [address] Patient Name: JOCELIN CORREA MR #: [id number] : 1970 Age/Sex: 49/M Req #: [id number] Adm Physician: ELIAS GÓMEZ MD Ordered by: AMARA GUTHRIE MD Re port #: [id number] Location: MED/SURG Room/ Bed: [facility] [place] Procedure: [id number] CT/CT ABDOMEN /PELVIS W Exam Date: 10/06/19 [...] Interpretation Comments Magnesium Level (test code = 95886-8) 1.3 1.3-2.1 [facility] 2 ZXMS1478-14-39 08:26:00 [facility] [address] [address] Patient Name: JOCELIN CORREA MR #: [id number] : 1970 Age/Sex: 49/M Req #: [id number] Adm Physician: ELIAS GÓMEZ MD Ordered by: TYREL MURILLO MD Report #: [id number] Location: MED/SURG R oom/Bed: 106 Procedure: [id number] DX/ABDOME N 2 VIEW Exam Date: 10/04/19 [...] Interpretation Comments Platelet Estimate (test code = 09882-7) MARKEDLY DECREASED [facility] CenterPlatelet fwwkqxvwud7236-37-83 05:10:00* Test Item Value Reference Range Interpretation Comments Platelet Morphology Comment (test code = 18597-3) NORMAL [facility] CenterRBC dicrmdyepe2973-57-33 05:10:00* Test Item Value Reference Range Interpretation Comments Red Cell Morphology Comment (test code = 6742-1) NORMAL [facility] CenterABDOMEN 2 ICVY2157-82-78 08:45:00 [facility] [address] [address] Patient Name: JOCELIN CORREA MR #: [id number] : 1970 Age/Sex: 49/M Req #: [id number] Adm Physician: ELIAS GÓMZE MD Ordered by: TYREL MURILLO MD Report #: [id number] Location: MED/SURG R oom/Bed: 106-1 Procedure: [id number] DX/ABDOME N 2 VIEW Exam Date: 10/03/19 [...] Automated reticulocyte count as percentage of total rjmvcbsqqmrx8122-55-57 05:10:00* Test Item Value Reference Range Interpretation Comments Percent Reticulocyte Count (test code = 91918-2) 2.4 0.8-2 .2 [facility] CenterProthrombin time (PT) in platelet poor plasma by coagulation qvyxk2017-28-99 05:10:00* Test Item Value Reference Range Interpretation Comments Prothrombin Time (test code = 5902-2) 18.0 11.9-14.5 [facility] CenterINR in Platelet poor plasma by Coagulation pntxx6104-33-75 05:10:00* Test Item Value Reference Range Interpretation Comments Prothromb Time International Ratio (test code = 6301-6) 1.40 Oral Anticoagulant Therapy INR Values:1. Low Intensity Therapy 1.5 - 2.02 . Moderate Intensity Therapy 2.0 - 3.03. High Intensity Therapy(1) 2.5 - 3. 54. High Intensity Therapy(2) 3.0 - 4.05. Panic Value INR > 5.0 [facility]ererum or plasma iron measurement (mass/volume)2019-10-03 05:10:00* Test Item Value Reference Range Interpretation Comments Iron Level (test code = 2498-4) 100 65-175 [facility]ererum or plasma iron binding capacity measurement (mass/volume)2019-10-03 05:10:00* Test Item Value Reference Range Interpretation Comments Total Iron Binding Capacity (test code = 2500-7) 237 261-4 78 [facility]ererum or plasma iron saturation measurement (mass fraction)2019-10-03 05:10:00* Test Item Value Reference Range Interpretation Comments Percent Iron Saturation (test code = 2502-3) 42 15-50 [facility]ererum or plasma transferrin measurement (mass/volume)2019-10-03 05:10:00* Test Item Value Reference Range Interpretation Comments Transferrin (test code = 3034-6) 169 174-364 [facility]ererum or plasma ferritin measurement (mass/volume)2019-10-03 05:10:00* Test Item Value Reference Range Interpretation Comments Ferritin (test code = 2276-4) 200.56 21.81-274.66 [facility] CenterAmmonia Ghe-tOkl6751-02-23 05:10:00* Test Item Value Reference Range Interpretation Comments Ammonia (test code = 10698-7) 121 31-123 [facility] CenterBlood cobalamin (vitamin B12) measurement (mass/volume)2019-10-03 05:10:00* Test Item Value Reference Range Interpretation Comments Vitamin B12 Level (test code = 48934-5) 781 213816 [facility]ererum or plasma folate measurement (mass/volume)2019-10-03 05:10:00* Test Item Value Reference Range Interpretation Comments Folate (test code = 2284-8) 14.7 >3.0 A serum folate concentration of less than 3.1 ng/mL isconsidered to represent cl inical deficiency.Performed at: [facility] [address] [id number] Director: Lopez Morgan MD, Phone: [phone] Regional Medical CenterUS GUIDED LYJZSVSGZDHJ4908-53-64 11:02:00 [facility] [address] [place] [address] Patient Name: JOCELIN CORREA MR #: [id number] : 1970 Age/Sex: 49/M Req #: [id number] Adm Physician: ELIAS GÓMEZ MD Ordered by: ELIAS GÓMEZ MD Report #: [id number] Location: MED/SURG Room/Bed: [facility] [place] Procedure: [id number] US/US GUIDED PARACENTESIS Exam Date: 10/02/19 Exam [...] GÓMEZ MD Specimen source identification of body tneex5205-45-49 10:40:00* Test Item Value Reference Range Interpretation Comments Body Fluid Type (test code = 78943-6) PERITONEAL [facility] CenterEvaluation of color of body fluid 2019-10-02 10:40:00* Test Item Value Reference Range Interpretation Comments Body Fluid Color (test code = 6824-7) RED [facility] CenterDetermination of appearance of body fluid 2019-10-02 10:40:00* Test Item Value Reference Range Interpretation Comments Body Fluid Appearance (test code = 9335-1) SL.CLOUDY [facility] body fluid leukocytes count (number/volume)2019-10-02 10:40:00* Test Item Value Reference Range Interpretation Comments Body Fluid WBC (test code = 6743-9) 220 [facility] body fluid erythrocytes count (number/volume)2019-10-02 10:40:00* Test Item Value Reference Range Interpretation Comments Body Fluid RBC (test code = 6741-3) [address] [facility] body fluid neutrophils/100 mrdtceyqnu5873-30-73 10:40:00* Test Item Value Reference Range Interpretation Comments Body Fluid Neutrophils (test code = 18458-7) 20 [facility] CenterBody fluid lymphocyte sllyf7584-29-72 10:40:00* Test Item Value Reference Range Interpretation Comments Body Fluid Lymphocytes (test code = 31055533) 34 [facility] fluid monocyte eyczu1106-74-63 10:40:00* Test Item Value Reference Range Interpretation Comments Body Fluid Monocytes (test code = 68099-0) 43 [facility] eosinophil percentage 2019-10-02 10:40:00* Test Item Value Reference Range Interpretation Comments Body Fluid Eosinophils (test code = 52213-2) 2 [facility] other cells manual count 2019-10-02 10:40:00* Test Item Value Reference Range Interpretation Comments Body Fluid Other Cells (test code = 568074025) 1 [facility] CenterTotal cell ibfjg9237-01-70 10:40:00* Test Item Value Reference Range Interpretation Comments Body Fluid Total Cells Counted (test code = 91451-7) 100 [facility] CenterABDOMEN 2 SVIZ9586-88-11 08:24:00 [facility] [address] [address] Patient Name: JOCELIN CORREA MR #: [id number] : 1970 Age/Sex: 49/M Req #: [id number] Adm Physician: ELIAS GÓMEZ MD Ordered by: TYREL MURILLO MD Report #: [id number] Location: MED/SURG R oom/Bed: 106 Procedure: [id number] DX/ABDOME N 2 VIEW Exam Date: 10/02/19 [...] noted within the colon as seen on art psychotherapist or therapist tomogram from comparison CT. No pneumoperitoneum. No abnormal calcification. Regional skeletal structures a re intact. IMPRESSION: Interval placement of an enteric tube as descri bed above. Bowel gas pattern is similar to that seen on art psychotherapist or therapist tomogram from comparison CT 10/01/2019. Of note, dilated small bowel loops were fluid-filled at that time and would not be expected to be visualized on plain radiography. No pneumoperitoneum. Signed by: Dr. Brianna Navarro M.D. on 10/01 8:29 AM Dictated By: BRIANNA NAVARRO MD 8 Transcribed By: ZAHEER on 10/02/19828 COPY TO: TYREL MURILLO MD Fluoroscopic procedure less than one hour irdwggxo4261-57-09 20:31:00* Test Item Value Reference Range Interpretation [...] complexity tests.Testing performed by [facility] [address] [id number] Director: Francisco Javier Barth M.D.CLIA # [id number] Regional Medical CenterUrine color tdsdgrpogsfef5033-92-37 15:16:00* Test Item Value Reference Range Interpretation Comments Urine Color (test code = 5778-6) YELLOW YELLOW [facility] CenterUrine mtuahqy0345-81-24 15:16:00* Test Item Value Reference Range Interpretation Comments Urine Clarity (test code = 47970-8) CLOUDY CLEAR [facility] Centerpecific gravity of Urine by Test strip 2019-10-01 15:16:00* Test Item Value Reference Range Interpretation Comments Urine Specific [place] (test code = 5811-5) 1.015 1.010-1.02 5 [facility] CenterUrine pH measurement by automated test nyhpw8000-07-99 15:16:00* Test Item Value Reference Range Interpretation Comments Urine pH (test code = 54892-2) 7.5 5-7 [facility] CenterUrine leukocyte esterase detection by kauhntbu1106-42-85 15:16:00* Test Item Value Reference Range Interpretation Comments Urine Leukocyte Esterase (test code = 5799-2) NEGATIVE NEGATIVE [facility] CenterUrine nitrite pjkteyymk3104-58-92 15:16:00* Test Item Value Reference Range Interpretation Comments Urine Nitrite (test code = 87281-1) NEGATIVE NEGATIVE [facility] CenterUrine protein measurement by test strip (mass/volume)2019-10-01 15:16:00* Test Item Value Reference Range Interpretation Comments Urine Protein (test code = 5804-0) NEGATIVE NEGATIVE [facility] CenterUrine glucose beduqdmnr4501-63-41 15:16:00* Test Item Value Reference Range Interpretation Comments Urine Glucose (UA) (test code = 2349-9) NEGATIVE NEGATIVE [facility] CenterUrine ketones detection by automated test atlmo1274-75-02 15:16:00* Test Item Value Reference Range Interpretation Comments Urine Ketones (test code = 12061-6) NEGATIVE NEGATIVE [facility] CenterUrine urobilinogen measurement by test strip (mass/volume)2019-10-01 15:16:00* Test Item Value Reference Range Interpretation Comments Urine Urobilinogen (test code = 55519-5) 1 0.2-1 [facility] CenterUrine total bilirubin measurement (mass/volume)2019-10-01 15:16:00* Test Item Value Reference Range Interpretation Comments Urine Bilirubin (test code = 1978-6) NEGATIVE NEGATIVE [facility] CenterUrine erythrocytes jelteyjoc5707-58-03 15:16:00* Test Item Value Reference Range Interpretation Comments Urine Blood (test code = 42093-4) 2+ NEGATIVE [facility] CenterAutomated urine sediment leukocyte count by microscopy (number/high power field)2019-10-01 15:16:00* Test Item Value Reference Range Interpretation Comments Urine WBC (test code = 5821-4) NONE 0-5 [facility] CenterErythrocytes detection in urine sediment by light kickmhikwr9358-08-93 15:16:00* Test Item Value Reference Range Interpretation Comments Urine RBC (test code = 67174-9) 6-10 0-5 [facility] CenterBacteria detection in urine sediment by light suuaahhdou1039-97-47 15:16:00* Test Item Value Reference Range Interpretation Comments Urine Bacteria (test code = 23657-8) MODERATE NONE [facility] CenterEpithelial cells detection in urine sediment by light ytotkfwedb0313-59-64 15:16:00* Test Item Value Reference Range Interpretation Comments Urine Epithelial Cells (test code = 93224-5) RARE NONE [facility] CenterAmorphous sediment detection in urine sediment by light cwfliqkexb3567-98-00 15:16:00* Test Item Value Reference Range Interpretation Comments Urine Amorphous Sediment (test code = 8246-1) MANY FEW [facility] CenterCT ABDOMEN/PELVIS X8028-55-25 11:46:00 [facility] [address] [address] Patient Name: JOCELIN CORREA MR #: [id number] : 1970 Age/Sex: 49/M Req #: [id number] Adm Physician: Ordered by: YAMILET STEVENS, SANDY STEVENS Report #: [id number] Location: ER Ro om/Bed: Procedure: [id number] CT/CT ABDO MEN/PELVIS W Exam Date: 10/01/19 [...] This exam was performed according to our [facility] ental dose-optimization program which includes automated exposure [...] TO: SANDY WOODARD CHEST SINGLE (PORTABLE)2019-10-01 09:18:[address] [address] Patient Name: JOCELIN CORREA MR #: [id number] : 1970 Age/Sex: 49/M Req #: [id number] Adm Physician: Ordered by: SANDY WOODARD MD, MD Report #: [id number] Location: ER Room/Bed: Procedure: [id number] DX/CHEST S BRAD (PORTABLE) Exam Date: 10/01/19 Exam Time: 0850 REPORT STATUS: Signed X-ray [facility] AP portable Comparison: CT 09/01/2019 History: Abdominal pain F indings: Poor inspiratory effort. Otherwise for the technique, central airways , cardiomediastinal silhouettes, pleural spaces, diaphragms, lung thompson, visu alized skeletal structures, extrathoracic soft tissues appear unremarkable. Impression: No significant abnormality on this exam. Signed by: Dionicio samuels MD on 10/01/2019 9:21 AM Dictated By: DIONICIO WHITTINGTON MD [facility] avelina Signed By: DIONICIO WHITTINGTON MD on 10/01/19920 Transcribed By: ZAHEER on 10/01/19920 COPY TO: SANDY WOODARD Fluoroscopic procedure less than one hour unxvxjmx6342-27-99 07:45:00* Test Item Value Reference Range Interpretation Comments Differential Total Cells Counted (test code = Kath paulson Total Cells Counted) 100 [facility] blood neutrophils/100 leukocytes 2019-10-01 07:45:00* Test Item Value Reference Range Interpretation Comments Neutrophils % (Manual) (test code = 52930-7) 75 40-74 [facility] blood band neutrophils form/100 hnbcmwtzgc2606-26-84 07:45:00* Test Item Value Reference Range Interpretation Comments Band Neutrophils % (test code = 764-1) 4 [facility] blood lymphocytes/100 leukocytes 2019-10-01 07:45:00* Test Item Value Reference Range Interpretation Comments Lymphocytes % (Manual) (test code = 737-7) 9 19-48 [facility] blood monocytes/100 leukocytes 2019-10-01 07:45:00* Test Item Value Reference Range Interpretation Comments Monocytes % (Manual) (test code = 744-3) 8 3.4-9.0 [facility] blood eosinophil count as percentage of total dtcffmkxdu8203-59-19 07:45:00* Test Item Value Reference Range Interpretation Comments Eosinophils % (Manual) (test code = 714-6) 4 0-7 [facility]ererum or plasma creatine kinase measurement (enzymatic activity/volume)2019-10-01 07:45:00* Test Item Value Reference Range Interpretation Comments Creatine Kinase (test code = 2157-6) 20 30-200 [facility]ererum or plasma creatine kinase MB measurement (mass/volume)2019-10-01 07:45:00* Test Item Value Reference Range Interpretation Comments Creatine Kinase MB (test code = 60165-7) 0.30 0-5.0 [facility] CenterTroponin I measurement by highly sensitive enzyme bxxrugpczvs9247-23-52 07:45:00* Test Item Value Reference Range Interpretation Comments Troponin I (test code = 85635-9) 0.013 0-0.300 [facility]ererum or plasma lipase measurement (enzymatic activity/volume)2019-10-01 07:45:00* Test Item Value Reference Range Interpretation Comments Lipase (test code = 3040-3) 48 8-78 [facility]ererum or plasma sodium measurement (moles/volume)2019-09-02 15:30:00* Test Item Value Reference Range Interpretation Comments Sodium Level (test code = 2951-2) 138 136-145 [facility]ererum or plasma potassium measurement (moles/volume)2019-09-02 15:30:00* Test Item Value Reference Range Interpretation Comments Potassium Level (test code = 2823-3) 3.6 3.5-5.1 [facility]ererum or plasma chloride measurement (moles/volume)2019-09-02 15:30:00* Test Item Value Reference Range Interpretation Comments Chloride Level (test code = 2075-0) 107 98-107 [facility]ererum or plasma carbon dioxide, total measurement (moles/volume)2019-09-02 15:30:00* Test Item Value Reference Range Interpretation Comments Carbon Dioxide Level (test code = 2028-9) 26 22-29 [facility]ererum or plasma anion afe0497-53-13 15:30:00* Test Item Value Reference Range Interpretation Comments Anion Gap (test code = 44910-7) 8.6 8-16 [facility]ererum or plasma urea nitrogen measurement (mass/volume)2019-09-02 15:30:00* Test Item Value Reference Range Interpretation Comments Blood Urea Nitrogen (test code = 3094-0) 11 7-26 [facility]ererum or plasma creatinine measurement (mass/volume)2019-09-02 15:30:00* Test Item Value Reference Range Interpretation Comments Creatinine (test code = 2160-0) 1.05 0.72-1.25 [facility]ererum or plasma urea nitrogen/creatinine mass lilfv2998-27-46 15:30:00* Test Item Value Reference Range Interpretation Comments BUN/Creatinine Ratio (test code = 3097-3) 10 6-25 [facility] CenterEstimated glomerular filtration rate (GFR) fqilywbsftmhf3523-44-64 15:30:00* Test Item Value Reference Range Interpretation Comments Estimat Glomerular Filtration Rate (test code = 153015907) > 60 >60 Ranges were taken from the National Kidney Disease Education Program and the [employer] literature.Reference ranges:60 or greater: Edxghk77-90 ( for 3 consecutive months): Chronic kidney disease 15 or less: Kidney failureChildress Regional Medical CenterGlucose vhdzndcpdgy1059-83-95 15:30:00* Test Item Value Reference Range Interpretation Comments Glucose Level (test code = GYI9161) 104 74-118 [facility]ererum or plasma calcium measurement (mass/volume)2019-09-02 15:30:00* Test Item Value Reference Range Interpretation Comments Calcium Level (test code = 98596-1) 7.4 8.4-10.2 [facility]ererum or plasma total bilirubin measurement (mass/volume)2019-09-02 15:30:00* Test Item Value Reference Range Interpretation Comments Total Bilirubin (test code = 1975-2) 1.4 0.2-1.2 [facility] CenterFluoroscopic procedure less than one hour gavxuqcv2009-78-87 15:30:00* Test Item Value Reference Range Interpretation Comments Aspartate Amino Transf (AST/SGOT) (test code = Aspartate Amino Transf (AST/SGOT)) 30 5-34 [facility]ererum or plasma alanine aminotransferase measurement (enzymatic activity/volume)2019-09-02 15:30:00* Test Item Value Reference Range Interpretation Comments Alanine Aminotransferase (ALT/SGPT) (test code = 1742-6) 12 0-55 [facility]ererum or plasma protein measurement (mass/volume)2019-09-02 15:30:00* Test Item Value Reference Range Interpretation Comments Total Protein (test code = 2885-2) 6.2 6.5-8.1 [facility]ererum or plasma albumin measurement (mass/volume)2019-09-02 15:30:00* Test Item Value Reference Range Interpretation Comments Albumin (test code = 1751-7) 2.1 3.5-5.0 [facility] CenterPlasma globulin measurement (mass/volume) 2019-09-02 15:30:00* Test Item Value Reference Range Interpretation Comments Globulin (test code = 50936-6) 4.1 2.3-3.5 [facility]ererum or plasma albumin/globulin mass zzbar2747-32-50 15:30:00* Test Item Value Reference Range Interpretation Comments Albumin/Globulin Ratio (test code = 1759-0) 0.5 0.8-2.0 [facility]ererum or plasma alkaline phosphatase measurement (enzymatic activity/volume)2019-09-02 15:30:00* Test Item Value Reference Range Interpretation Comments Alkaline Phosphatase (test code = 6768-6) 41 40-150 [facility] CenterUS ABDOMEN BIYDABZ5218-87-10 10:42:00 [facility] [address] [address] Patient Name: JOCELIN CORREA MR #: [id number] : 1970 Age/Sex: 49/M Req #: [id number] Adm Physician: DAVI KELLY MD Ordered by: Marissa Mulligan HARP REPAIRER Report #: [id number] Location: MED/SURG3 Room/Bed: [facility] Procedure: [id number] US/US ABDOMEN LIMITED Exam Date: 09/02/19 Exam [...] 44 COPY TO: MARISSA MULLIGAN NP Ammonia Aog-dCaf6335-68-22 10:00:00* Test Item Value Reference Range Interpretation Comments Ammonia (test code = 57611-4) 122 31-123 [facility] CenterBlood leukocytes automated count (number/volume)2019-09-02 05:15:00* Test Item Value Reference Range Interpretation Comments White Blood Count (test code = 6690-2) 2.59 4.8-10.8 [facility] CenterBlpipestone county medical center erythrocytes automated count (number/volume)2019-09-02 05:15:00* Test Item Value Reference Range Interpretation Comments Red Blood Count (test code = 789-8) 3.29 4.3-5.7 [facility] CenterBlood hemoglobin measurement (moles/volume)2019-09-02 05:15:00* Test Item Value Reference Range Interpretation Comments Hemoglobin (test code = 50254-5) 8.0 14.0-18.0 [facility] CenterAutomated blood hematocrit (volume fraction)2019-09-02 05:15:00* Test Item Value Reference Range Interpretation Comments Hematocrit (test code = 4544-3) 25.9 38.2-49.6 [facility] CenterAutomated erythrocyte mean corpuscular fiaoeo5161-33-62 05:15:00* Test Item Value Reference Range Interpretation Comments Mean Corpuscular Volume (test code = 787-2) 78.7 81-99 [facility] CenterAutomated erythrocyte mean corpuscular hemoglobin (mass per erythrocyte)2019-09-02 05:15:00* Test Item Value Reference Range Interpretation Comments Mean Corpuscular Hemoglobin (test code = 785-6) 24.3 28-32 [facility] CenterAutomated erythrocyte mean corpuscular hemoglobin concentration measurement (mass/volume)2019-09-02 05:15:00* Test Item Value Reference Range Interpretation Comments Mean Corpuscular Hemoglobin Concent (test code = 786-4) 30.9 31-35 [facility] CenterRDW GtqXv-Cox0881-71-22 05:15:00* Test Item Value Reference Range Interpretation Comments Red Cell Distribution Width (test code = 53645-2) 27.2 11.7 -14.4 [facility] CenterAutomated blood platelet count (count/volume)2019-09-02 05:15:00* Test Item Value Reference Range Interpretation Comments Platelet Count (test code = 777-3) 34 140-360 Results repeated and called to REENA GRIFFIN RN at 0619 on 09/02/19 by Michael murillo. Read back and verified.[facility] CenterAutomated blood segmented neutrophil count as percentage of total jzyusmqezp3018-89-66 05:15:00* Test Item Value Reference Range Interpretation Comments Neutrophils (%) (Auto) (test code = 47336-1) 46.0 38.7-80.0 [facility] CenterAutomated blood lymphocyte count as percentage ot total hpnxtsjhrj3756-50-81 05:15:00* Test Item Value Reference Range Interpretation Comments Lymphocytes (%) (Auto) (test code = 736-9) 18.9 18.0-39.1 [facility] CenterAutomated blood monocyte count as percentage of total exmzrhmgnm8928-99-68 05:15:00* Test Item Value Reference Range Interpretation Comments Monocytes (%) (Auto) (test code = 5905-5) 27.4 4.4-11.3 [facility] CenterAutomated blood eosinophil count as percentage of total cusgxedtno6106-82-82 05:15:00* Test Item Value Reference Range Interpretation Comments Eosinophils (%) (Auto) (test code = 713-8) 6.9 0.0-6.0 [facility] CenterAutomated blood basophil count as percentage of total soljlpqdcm6053-38-38 05:15:00* Test Item Value Reference Range Interpretation Comments Basophils (%) (Auto) (test code = 706-2) 0.4 0.0-1.0 [facility] CenterFluoroscopic procedure less than one hour pprwucuc2246-84-88 05:15:00* Test Item Value Reference Range Interpretation Comments IM GRANULOCYTES % (test code = IM GRANULOCYTES %) 0.4 0.0- 1.0 [facility] CenterAutomated blood neutrophil count 2019-09-02 05:15:00* Test Item Value Reference Range Interpretation Comments Neutrophils # (Auto) (test code = 751-8) 1.2 2.1-6.9 [facility] CenterBlood lymphocytes count (number/volume) 2019-09-02 05:15:00* Test Item Value Reference Range Interpretation Comments Lymphocytes # (Auto) (test code = 41121-6) 0.5 1.0-3.2 [facility] CenterBl[facility] monocytes automated count (number/volume)2019-09-02 05:15:00* Test Item Value Reference Range Interpretation Comments Monocytes # (Auto) (test code = 742-7) 0.7 0.2-0.8 [facility] CenterAutomated blood eosinophil count 2019-09-02 05:15:00* Test Item Value Reference Range Interpretation Comments Eosinophils # (Auto) (test code = 711-2) 0.2 0.0-0.4 [facility] CenterAutomated blood basophil count (count/volume)2019-09-02 05:15:00* Test Item Value Reference Range Interpretation Comments Basophils # (Auto) (test code = 704-7) 0.0 0.0-0.1 [facility] CenterFluoroscopic procedure less than one hour xkestzqk6508-13-45 05:15:00* Test Item Value Reference Range Interpretation Comments Absolute Immature Granulocyte (auto ([place] t code = Absolute Immature Granulocyte (auto) 0.01 0-0.1 [facility] CenterFluoroscopic procedure less than one hour tlkzzfjt9115-15-30 05:15:00* Test Item Value Reference Range Interpretation Comments Differential Total Cells Counted (test code = Differen tial Total Cells Counted) 100 [facility] CenterManual blood neutrophils/100 leukocytes 2019-09-02 05:15:00* Test Item Value Reference Range Interpretation Comments Neutrophils % (Manual) (test code = 18152-5) 66 40-74 [facility] blood band neutrophils form/100 jobyqnvnxs6037-18-07 05:15:00* Test Item Value Reference Range Interpretation Comments Band Neutrophils % (test code = 764-1) 1 [facility] blood lymphocytes/100 leukocytes 2019-09-02 05:15:00* Test Item Value Reference Range Interpretation Comments Lymphocytes % (Manual) (test code = 737-7) 16 19-48 [facility]100 leukocytes 2019-09-02 05:15:00* Test Item Value Reference Range Interpretation Comments Monocytes % (Manual) (test code = 744-3) 14 3.4-9.0 [facility] blood eosinophil count as percentage of total drgronvdyh9635-14-96 05:15:00* Test Item Value Reference Range Interpretation Comments Eosinophils % (Manual) (test code = 714-6) 3 0-7 [facility] count by estimate (number/volume)2019-09-02 05:15:00* Test Item Value Reference Range Interpretation Comments Platelet Estimate (test code = 77305-7) MARKEDLY DECREASED [facility] CenterPlatelet wrthwnjkpt1860-75-59 05:15:00* Test Item Value Reference Range Interpretation Comments Platelet Morphology Comment (test code = 03485-0) FEW LARGE [facility] polychromasia detection by light gyirgnoajz0149-69-43 05:15:00* Test Item Value Reference Range Interpretation Comments Polychromasia (test code = 64962-2) FEW [facility] hypochromia detection by light wttabmmwnp8864-98-03 05:15:00* Test Item Value Reference Range Interpretation Comments Hypochromasia (test code = 728-6) MODERATE [facility] anisocytosis detection by light twftscngdj6186-65-08 05:15:00* Test Item Value Reference Range Interpretation Comments Anisocytosis (test code = 702-1) MARKED [facility] microcytes detection by light eftibenpdx9676-60-37 05:15:00* Test Item Value Reference Range Interpretation Comments Microcytosis (test code = 741-9) SLIGHT [facility] CenterBlood target cells detection by light dfyrhxerpd7569-89-61 05:15:00* Test Item Value Reference Range Interpretation Comments Target Cells (test code = 04305-4) FEW [facility] CenterBlpip[facility] dacrocytes detection by light bykkncptlf6000-67-60 05:15:00* Test Item Value Reference Range Interpretation Comments Tear Drop Cells (test code = 7791-7) FEW [facility] ovalocytes detection by light ukztqlunfv9574-57-67 05:15:00* Test Item Value Reference Range Interpretation Comments Ovalocytes (test code = 774-0) FEW [facility] CenterElliptocyte arzgzcsms1822-68-17 05:15:00 * Test Item Value Reference Range Interpretation Comments Elliptocytes (test code = 65707-6) SLIGHT [facility] CenterRBC tvpaxygebv3572-47-42 05:15:00* Test Item Value Reference Range Interpretation Comments Red Cell Morphology Comment (test code = 6742-1) ABNORMAL [facility]rum or plasma magnesium measurement (mass/volume)2019-09-02 05:15:00* Test Item Value Reference Range Interpretation Comments Magnesium Level (test code = 17784-6) 1.1 1.3-2.1 Results repeated and called to REENA GRIFFIN RN at 0632 on 09/02/19 by Michael sorensen Read back and verified.[facility] CenterBlpip[facility] polychromasia detection by light yxpszqboow5279-98-88 05:15:00* Test Item Value Reference Range Interpretation Comments Polychromasia (test code = 63668-0) FEW [facility] CenterBlood hypochromia detection by light rniuhrttwi8335-74-65 05:15:00* Test Item Value Reference Range Interpretation Comments Hypochromasia (test code = 728-6) MODERATE [facility] anisocytosis detection by light mjxpkhyzia2741-21-48 05:15:00* Test Item Value Reference Range Interpretation Comments Anisocytosis (test code = 702-1) MARKED [facility] microcytes detection by light lqlwdasjqv0752-95-43 05:15:00* Test Item Value Reference Range Interpretation Comments Microcytosis (test code = 741-9) SLIGHT [facility] CenterBlpip[facility] target cells detection by light pksejtewnk9774-69-01 05:15:00* Test Item Value Reference Range Interpretation Comments Target Cells (test code = 36527-8) FEW [facility] dacrocytes detection by light onzeanqstm0650-55-51 05:15:00* Test Item Value Reference Range Interpretation Comments Tear Drop Cells (test code = 7791-7) FEW [facility] CenterBlood ovalocytes detection by light vxlmhaqiwh9712-45-64 05:15:00* Test Item Value Reference Range Interpretation Comments Ovalocytes (test code = 774-0) [facility]Ell[facility] srlcxnajo6280-54-88 05:15:00 * Test Item Value Reference Range Interpretation Comments Elliptocytes (test code = 30674-9) SLIGHT [facility] xxacdmo7410-42-50 11:50:00* Test Item Value Reference Range Interpretation Comments Blood Culture (test code = 49673035) NO GROWTH AFTER 24 HOURS [facility] jizucbe4344-52-01 11:50:00* Test Item Value Reference Range Interpretation Comments Blood Culture (test code = 22700671) NO GROWTH AFTER 5 DAYS, FINAL REPORT [facility] CenterFluoroscopic procedure less than one hour dmcuungz3035-91-98 11:40:00* Test Item Value Reference Range Interpretation [...] under 564(g) of the ACT.Testing performed by [id number] [place], [place] [address]CT CHEST LI8980-35-03 10:41:00 [facility] [address] [address] Patient Name: JOCELIN CORREA MR #: [id number] : 1970 Age/Sex: 49/M Req #: [id number] Adm Physician: DAVI KELLY MD Ordered by: Marissa Mulligan HARP REPAIRER Report #: [id number] Location: MED/SURG3 Room/Bed: [facility] Procedure: [id number] CT/CT CHEST W O Exam Date: 09/01/19 Exam Time: 1000 REPORT STATUS: Signed CT chest without enhance ment CPT code: 33546 INDICATION: Pneumonia, cough TECHNIQUE: Th in collimation [...] on 09/01/19 1058 COPY TO: MARISSA MULLIGAN HARP REPAIRER CHEST SINGLE (PORTABLE)2019-09-01 07:56:[address] [address] Patient Name: JOCELIN CORREA MR #: [id number] : 1970 Age/Sex: 49/M Req #: [id number] Adm Physician: DAVI KELLY MD Ordered by: AMARA GUTHRIE MD Report #: [id number] Location: MED/SURG3 Room/Bed: 2981 Procedure: DX/CHEST SING [...] COPY TO: AMARA GUTHRIE MD Urine color jjtflhxyvhgxh3641-83-66 06:10:00* Test Item Value Reference Range Interpretation Comments Urine Color (test code = 5778-6) YELLOW YELLOW [facility] CenterUrine uuutnpr3775-91-92 06:10:00* Test Item Value Reference Range Interpretation Comments Urine Clarity (test code = 98138-1) CLOUDY CLEAR [facility] Centerpecific gravity of Urine by Test strip 2019-09-01 06:10:00* Test Item Value Reference Range Interpretation Comments Urine Specific [place] (test code = 5811-5) 1.020 1.010-1.02 5 [facility] CenterUrine pH measurement by automated test uuhyu2122-77-94 06:10:00* Test Item Value Reference Range Interpretation Comments Urine pH (test code = 63938-4) 7 5-7 [facility] CenterUrine leukocyte esterase detection by yztcrsgw6286-28-70 06:10:00* Test Item Value Reference Range Interpretation Comments Urine Leukocyte Esterase (test code = 5799-2) NEGATIVE NEGATIVE [facility] CenterUrine nitrite yeuejoqje0402-80-93 06:10:00* Test Item Value Reference Range Interpretation Comments Urine Nitrite (test code = 73664-0) NEGATIVE NEGATIVE [facility] CenterUrine protein measurement by test strip (mass/volume)2019-09-01 06:10:00* Test Item Value Reference Range Interpretation Comments Urine Protein (test code = 5804-0) 1+ NEGATIVE [facility] CenterUrine glucose jvuabhhwo7827-24-19 06:10:00* Test Item Value Reference Range Interpretation Comments Urine Glucose (UA) (test code = 2349-9) NEGATIVE NEGATIVE [facility] CenterUrine ketones detection by automated test eaixc8457-60-50 06:10:00* Test Item Value Reference Range Interpretation Comments Urine Ketones (test code = 06779-8) NEGATIVE NEGATIVE [facility] CenterUrine urobilinogen measurement by test strip (mass/volume)2019-09-01 06:10:00* Test Item Value Reference Range Interpretation Comments Urine Urobilinogen (test code = 03287-7) 2 0.2-1 [facility] CenterUrine total bilirubin measurement (mass/volume)2019-09-01 06:10:00* Test Item Value Reference Range Interpretation Comments Urine Bilirubin (test code = 1978-6) SMALL NEGATIVE [facility] CenterUrine erythrocytes dukvvzuvi8181-82-83 06:10:00* Test Item Value Reference Range Interpretation Comments Urine Blood (test code = 51125-5) LARGE NEGATIVE [facility] CenterAutomated urine sediment leukocyte count by microscopy (number/high power field)2019-09-01 06:10:00* Test Item Value Reference Range Interpretation Comments Urine WBC (test code = 5821-4) >50 0-5 [facility] CenterErythrocytes detection in urine sediment by light zadfdmjlrp2523-25-25 06:10:00* Test Item Value Reference Range Interpretation Comments Urine RBC (test code = 09160-0) >50 0-5 [facility] CenterBacteria detection in urine sediment by light pgtqrcwnrr4767-26-46 06:10:00* Test Item Value Reference Range Interpretation Comments Urine Bacteria (test code = 71541-2) MODERATE NONE [facility] CenterEpithelial cells detection in urine sediment by light qggbyusohi6571-59-14 06:10:00* Test Item Value Reference Range Interpretation Comments Urine Epithelial Cells (test code = 15041-2) RARE NONE [facility] Centertool lactoferrin sgpgxcsaf0145-16-76 06:10:00* Test Item Value Reference Range Interpretation Comments Stool Lactoferrin (LAB) (test code = 63302-8) NEGATIVE NEGATIVE Testing on stool aspirate specimens is outside manager contracting claims since specime n type not validated on this assay.[facility] Centertool lactoferrin xibjduprv8904-87-70 06:10:00* Test Item Value Reference Range Interpretation Comments Stool Lactoferrin (LAB) (test code = 25973-4) NEGATIVE NEGATIVE Testing on stool aspirate specimens is outside manager contracting claims since specime n type not validated on this assay.[facility] CenterCT ABDOMEN/PELVIS S5197-85-16 10:31:00 [address] [address] Patient Name: JOCELIN CORREA MR #: [id number] : 1970 Age/Sex: 49/M Req #: [id number] Adm Physician: DAVI KELLY MD Ordered by: AMARA GUTHRIE MD Report #: [id number] Location: MED/SURG3 Room/Bed: [facility] Procedure: [id number] CT/CT ABDOMEN /PELVIS W Exam Date: 08/28/19 [...] The examination was performed according to the [facility] dose-optimization program, which includes automated exposure control, [...] (aPTT) in platelet poor plasma by coagulation epuja0481-50-07 05:30:00* Test Item Value Reference Range Interpretation Comments Activated Partial Thromboplast Time (test code = 55365-6) 43.5 23.8-35.5 [facility] CenterPhosphorus kuaarlcjscm9685-77-35 05:30:00 * Test Item Value Reference Range Interpretation Comments Phosphorus Level (test code = XPU3970) 2.6 2.3-4.7 [facility] CenterActivated partial thromboplastin time (aPTT) in platelet poor plasma by coagulation iklic9605-62-97 05:30:00* Test Item Value Reference Range Interpretation Comments Activated Partial Thromboplast Time (test code = 03075-6) 43.5 23.8-35.5 [facility] CenterPhosphorus izbentbpzvi8299-45-11 05:30:00 * Test Item Value Reference Range Interpretation Comments Phosphorus Level (test code = PMN7426) 2.6 2.3-4.7 [facility] Centererum or plasma C reactive protein measurement (mass/volume)2019-08-27 09:00:00* Test Item Value Reference Range Interpretation Comments C-Reactive Protein (test code = 1987-5) 3 0-10 Performed at: [facility] [address] [id number] Director: Lopez Morgan MD, Phone: [phone] Medical Centererum or plasma C reactive protein measurement (mass/volume)2019-08-27 09:00:00* Test Item Value Reference Range Interpretation Comments C-Reactive Protein (test code = 1987-5) 3 0-10 Performed at: [facility] [address] [id number] Director: Lopez Morgan MD, Phone: [phone] Medical Centererum or plasma amylase measurement (enzymatic activity/volume)2019-08-27 02:10:00* Test Item Value Reference Range Interpretation Comments Amylase Level (test code = 1798-8) 65 25-125 [facility]ererum or plasma lipase measurement (enzymatic activity/volume)2019-08-27 02:10:00* Test Item Value Reference Range Interpretation Comments Lipase (test code = 3040-3) 22 8-78 [facility]ererum or plasma amylase measurement (enzymatic activity/volume)2019-08-27 02:10:00* Test Item Value Reference Range Interpretation Comments Amylase Level (test code = 1798-8) 65 25-125 [facility] CenterUrine sodium measurement (moles/volume) 2019-08-27 00:55:00* Test Item Value Reference Range Interpretation Comments Urine Random Sodium (test code = 2955-3) 60 [facility] CenterUrine creatinine measurement (mass/volume)2019-08-27 00:55:00* Test Item Value Reference Range Interpretation Comments Urine Creatinine (test code = 2161-8) 228.30 83-166 [facility] CenterUrine sodium measurement (moles/volume) 2019-08-27 00:55:00* Test Item Value Reference Range Interpretation Comments Urine Random Sodium (test code = 2955-3) 60 [facility] CenterUrine creatinine measurement (mass/volume)2019-08-27 00:55:00* Test Item Value Reference Range Interpretation Comments Urine Creatinine (test code = 2161-8) 228.30 34-166 [facility] CenterUS RENAL RETROPERITONEAL JPTE2534-16-07 13:47:00 [facility] [address] [address] Patient Name: JOCELIN CORREA MR #: [id number] : 1970 Age/Sex: 49/M Req #: [id number] Adm Physician: DAVI KELLY MD Ordered by: APPLE QUIROZ MD Report #: [id number] Location: [facility]/SURG3 Room/Bed: [facility] Procedure: [id number] US/US RENAL RET ROPERITONEAL COMP Exam Date: [...] QUIROZ MD US ABDOMEN LIMITED 2019-08-26 11:13:00 [address] [address] Patient Name: JOCELIN CORREA MR #: [id number] : 1970 Age/Sex: 49/M Req #: [id number] Adm Physician: DAVI KELLY MD Ordered by: AMARA GUTHRIE MD Report #: [id number] Location: [facility] Room/Bed: [facility] Procedure: [id number] US/US ABDOMEN LIMITED Exam Date: 08/26/19 Exam [...] Automated reticulocyte count as percentage of total mrpqwfjwiwdp5153-82-10 06:30:00* Test Item Value Reference Range Interpretation Comments Percent Reticulocyte Count (test code = 68400-3) 0.6 0.8-2 .2 [facility]ererum or plasma iron measurement (mass/volume)2019-08-26 06:30:00* Test Item Value Reference Range Interpretation Comments Iron Level (test code = 2498-4) 36 65-175 [facility]ererum or plasma iron binding capacity measurement (mass/volume)2019-08-26 06:30:00* Test Item Value Reference Range Interpretation Comments Total Iron Binding Capacity (test code = 2500-7) 421 261-4 78 [facility]ererum or plasma iron saturation measurement (mass fraction)2019-08-26 06:30:00* Test Item Value Reference Range Interpretation Comments Percent Iron Saturation (test code = 2502-3) 9 15-50 [facility]ererum or plasma transferrin measurement (mass/volume)2019-08-26 06:30:00* Test Item Value Reference Range Interpretation Comments Transferrin (test code = 3034-6) 301 174-364 [facility] Centererum or plasma ferritin measurement (mass/volume)2019-08-26 06:30:00* Test Item Value Reference Range Interpretation Comments Ferritin (test code = 2276-4) 27.43 21.81-274.66 [facility]ererum or plasma creatine kinase measurement (enzymatic activity/volume)2019-08-26 06:30:00* Test Item Value Reference Range Interpretation Comments Creatine Kinase (test code = 2157-6) 82 30-200 [facility] Centererum or plasma creatine kinase MB measurement (mass/volume)2019-08-26 06:30:00* Test Item Value Reference Range Interpretation Comments Creatine Kinase MB (test code = 96656-5) 0.60 0-5.0 [facility] CenterTroponin I measurement by highly sensitive enzyme pxwsnrmhpja0408-96-24 06:30:00* Test Item Value Reference Range Interpretation Comments Troponin I (test code = 02434-8) 0.006 0-0.300 [facility] CenterBlood cobalamin (vitamin B12) measurement (mass/volume)2019-08-26 06:30:00* Test Item Value Reference Range Interpretation Comments Vitamin B12 Level (test code = 96879-2) 1261 213-816 [facility]ererum or plasma folate measurement (mass/volume)2019-08-26 06:30:00* Test Item Value Reference Range Interpretation Comments Folate (test code = 2284-8) > 40.0 7.0-15.4 [facility]ererum or plasma folate measurement (mass/volume)2019-08-26 06:30:00* Test Item Value Reference Range Interpretation Comments Folate (test code = 2284-8) > 40.0 7.0-15.4 [facility] CenterManual basophil adrfebiyvc7164-88-11 05:50:00* Test Item Value Reference Range Interpretation Comments Basophils % (Manual) (test code = 90982-5) 2 0-1.5 [facility] CenterProthrombin time (PT) in platelet poor plasma by coagulation iejtq4381-07-88 05:50:00* Test Item Value Reference Range Interpretation Comments Prothrombin Time (test code = 5902-2) 17.2 11.9-14.5 [facility] CenterINR in Platelet poor plasma by Coagulation jlbxb0969-94-75 05:50:00* Test Item Value Reference Range Interpretation Comments Prothromb Time International Ratio (test code = 6301-6) 1.31 Oral Anticoagulant Therapy INR Values:1. Low Intensity Therapy 1.5 - 2.02 . Moderate Intensity Therapy 2.0 - 3.03. High Intensity Therapy(1) 2.5 - 3. 54. High Intensity Therapy(2) 3.0 - 4.05. Panic Value INR > 5.0 [facility] Centererum or plasma hepatitis C virus RNA detection by probe and target amplification ozainz0516-28-24 05:50:00* Test Item Value Reference Range Interpretation Comments Hepatitis C RNA Qualitative (PCR) (test code = 85116-2) Negative Negative Negative: HCV RNA Not DetectedPerformed at: [address] [id number] Director: Denisse Dee MD, Phone: [phone] [address] [place], [place] [address]erum or plasma rtkqr-6-vppnnrssnoj.tumor marker measurement (mass/volume)2019-08-25 05:50:00* Test Item Value Reference Range Interpretation Comments Alpha Fetoprotein (test code = 37259-7) 3.3 0.0-8.3 [facility] Electrochemiluminescence Immunoassay(ECLIA)Values obtained wit h different assay methods or kits cannotbe used interchangeably. Results cannot be interpreted asabsolute evidence of the presence or absence of malignantdisea se.This test is not interpretable in females.Performed at: [email or web address] [address] [id number] Director: Lopez Morgan MD, Phone: [phone] Regional Medical CenterManual basophil vdnjfdbvrv5780-67-83 05:50:00* Test Item Value Reference Range Interpretation Comments Basophils % (Manual) (test code = 49012-1) 2 0-1.5 [facility] Springserum or plasma hepatitis C virus RNA detection by probe and target amplification rzjxzc2137-10-34 05:50:00* Test Item Value Reference Range Interpretation Comments Hepatitis C RNA Qualitative (PCR) (test code = 27012-7) Negative Negative Negative: HCV RNA Not DetectedPerformed at: - [facility] [id number] Director: Denisse Dee MD, Phone: [phone] Centererum or plasma adrts-8-gapvdfrxkpi.tumor marker measurement (mass/volume)2019-08-25 05:50:00* Test Item Value Reference Range Interpretation Comments Alpha Fetoprotein (test code = 61986-4) 3.3 0.0-8.3 [facility] Electrochemiluminescence Immunoassay(ECLIA)Values obtained wit h different assay methods or kits cannotbe used interchangeably. Results cannot be interpreted asabsolute evidence of the presence or absence of malignantdisea se.This test is not interpretable in females.Performed at: [email or web address] [address] [id number] Director: Lopez Morgan MD, Phone: [phone] Regional Medical CenterCHEST 2 QNKUU4170-95-20 03:52:00 [address] [place] [address] Patient Name: JOCELIN CORREA MR #: [id number] : 1970 Age/Sex: 49/M Req #: [id number] Adm Physician: DAVI KELLY MD Ordered by: JACQUI BECERRA HARP REPAIRER Report #: [id number] Location: MED/SURG3 Room/Bed: [facility] Procedure: [id number] DX/CHEST 2 VIEW S Exam Date: 08/25/19 [...] NP Fluoroscopic procedure less than one hour dlgapssv8447-67-67 11:10:00* Test Item Value Reference Range Interpretation Comments Lactic Acid Level (test code = Lactic Acid Level) 1.1 0.5- 2.0 [facility] CenterFluoroscopic procedure less than one hour vqniltil3006-84-23 11:10:00* Test Item Value Reference Range Interpretation Comments Lactic Acid Level (test code = Lactic Acid Level) 1.1 0.5- 2.0 [facility] CenterCT ABDOMEN/PELVIS X7864-12-66 14:47:00 [facility] [address] [address] Patient Name: JOCELIN CORREA MR #: [id number] : 1970 Age/Sex: 49/M Req #: [id number] Adm Physician: Ordered by: RACHAEL HAN rt #: [id number] Location: ER Room/Be d: Procedure: [id number] CT/CT ABDOMEN/P NEVA W Exam Date: 08/23/19 [...] Range Interpretation Comments Hemoglobin (test code = 98661-6) 7.0 14.0-18.0 [facility] CenterAutomated blood hematocrit (volume fraction)2019-08-16 05:10:00* Test Item Value Reference Range Interpretation Comments Hematocrit (test code = 4544-3) 24.3 38.2-49.6 [facility] CenterAutomated erythrocyte mean corpuscular bfxrhl2954-51-89 05:10:00* Test Item Value Reference Range Interpretation [...] 786-4) 28.8 31-35 [facility] CenterRDW OmfIs-Cqp2040-26-05 05:10:00* Test Item Value Reference Range Interpretation Comments Red Cell Distribution Width (test code = 32717-0) 20.0 11.7 -14.4 [facility] CenterAutomated blood platelet count (count/volume)2019-08-16 05:10:00* Test Item Value Reference Range Interpretation Comments Platelet Count (test code = 777-3) 50 140-360 [facility] CenterAutomated blood segmented neutrophil count as percentage of total eklibycuhr1425-57-78 05:10:00* Test Item Value Reference Range Interpretation Comments Neutrophils (%) (Auto) (test code = 83038-7) 52.6 38.7-80.0 [facility] CenterAutomated blood lymphocyte count as percentage ot total upwidjjnsy4724-21-10 05:10:00* Test Item Value Reference Range Interpretation Comments Lymphocytes (%) (Auto) (test code = 736-9) 17.9 18.0-39.1 [facility] CenterAutomated blood monocyte count as percentage of total proffjyins5570-94-06 05:10:00* Test Item Value Reference Range Interpretation Comments Monocytes (%) (Auto) (test code = 5905-5) 18.3 4.4-11.3 [facility] CenterAutomated blood eosinophil count as percentage of total gmosvlmudu8200-60-90 05:10:00* Test Item Value Reference Range Interpretation Comments Eosinophils (%) (Auto) (test code = 713-8) 10.0 0.0-6.0 [facility] CenterAutomated blood basophil count as percentage of total askmtfjryz4929-60-51 05:10:00* Test Item Value Reference Range Interpretation Comments Basophils (%) (Auto) (test code = 706-2) 0.8 0.0-1.0 [facility] CenterFluoroscopic procedure less than one hour rkgiiiad9364-56-75 05:10:00* Test Item Value Reference Range Interpretation Comments IM GRANULOCYTES % (test code = IM GRANULOCYTES %) 0.4 0.0- 1.0 [facility] CenterAutomated blood neutrophil count 2019-08-16 05:10:00* Test Item Value Reference Range Interpretation Comments Neutrophils # (Auto) (test code = 751-8) 1.3 2.1-6.9 [facility] lymphocytes count (number/volume) 2019-08-16 05:10:00* Test Item Value Reference Range Interpretation Comments Lymphocytes # (Auto) (test code = 05268-0) 0.5 1.0-3.2 [facility] monocytes automated count (number/volume)2019-08-16 05:10:00* Test Item [...] Medical CenterFluoroscopic procedure less than one hour grisfxje7962-88-88 05:10:00* Test Item Value Reference Range Interpretation Comments Absolute Immature Granulocyte (auto ([place] t code = Absolute Immature Granulocyte (auto) 0.01 0-0.1 [facility] platelets count by estimate (number/volume)2019-08-16 05:10:00* Test Item Value Reference Range Interpretation Comments Platelet Estimate (test code = 85311-6) MARKEDLY DECREASED [facility] CenterPlatelet jlyycoiqxa5287-63-59 05:10:00* Test Item Value Reference Range Interpretation Comments Platelet Morphology Comment (test code = 08520-9) NORMAL NO EDTA PLT CLUMPS SEENChildress Regional Medical CenterBlood hypochromia detection by light lwzruveqec4230-88-57 05:10:00* Test Item Value Reference Range Interpretation Comments Hypochromasia (test code = 728-6) MODERATE [facility]ererum or plasma sodium measurement (moles/volume)2019-08-16 05:10:00* Test Item Value Reference Range Interpretation Comments Sodium Level (test code = 2951-2) 130 136-145 [facility]ererum or plasma potassium measurement (moles/volume)2019-08-16 05:10:00* Test Item Value Reference Range Interpretation Comments Potassium Level (test code = 2823-3) 3.3 3.5-5.1 [facility]ererum or plasma chloride measurement (moles/volume)2019-08-16 05:10:00* Test Item Value Reference Range Interpretation Comments Chloride Level (test code = 2075-0) 97 98-107 [facility]ererum or plasma carbon dioxide, total measurement (moles/volume)2019-08-16 05:10:00* Test Item Value Reference Range Interpretation Comments Carbon Dioxide Level (test code = 2028-9) 26 22-29 [facility]ererum or plasma anion yun8871-85-75 05:10:00* Test Item Value Reference Range Interpretation Comments Anion Gap (test code = 09595-7) 10.3 8-16 [facility]ererum or plasma urea nitrogen measurement (mass/volume)2019-08-16 05:10:00* Test Item Value Reference Range Interpretation Comments Blood Urea Nitrogen (test code = 3094-0) 11 7-26 [facility]ererum or plasma creatinine measurement (mass/volume)2019-08-16 05:10:00* Test Item Value Reference Range Interpretation Comments Creatinine (test code = 2160-0) 1.02 0.72-1.25 [facility]ererum or plasma urea nitrogen/creatinine mass qcgis5844-12-14 05:10:00* Test Item Value Reference Range Interpretation Comments BUN/Creatinine Ratio (test code = 3097-3) 11 6-25 [facility] CenterEstimated glomerular filtration rate (GFR) notangsknjaaf3298-49-42 05:10:00* Test Item Value Reference Range Interpretation Comments Estimat Glomerular Filtration Rate (test code = 519119767) > 60 >60 Ranges were taken from the National Kidney Disease Education Program and the [facility] Kidney Foundation literature.Reference ranges:60 or greater: Azsqeo06-78 ( for 3 consecutive months): Chronic kidney disease 15 or less: Kidney failureChildress Regional Medical CenterGlucose pqwagbevjur2041-48-09 05:10:00* Test Item Value Reference Range Interpretation Comments Glucose Level (test code = AGX1799) 83 74-118 [facility]ererum or plasma calcium measurement (mass/volume)2019-08-16 05:10:00* Test Item Value Reference Range Interpretation Comments Calcium Level (test code = 34634-9) 8.0 8.4-10.2 [facility]ererum or plasma total bilirubin measurement (mass/volume)2019-08-16 05:10:00* Test Item Value Reference Range Interpretation Comments Total Bilirubin (test code = 1975-2) 2.3 0.2-1.2 [facility] CenterFluoroscopic procedure less than one hour ewidnubd5149-11-44 05:10:00* Test Item Value Reference Range Interpretation Comments Aspartate Amino Transf (AST/SGOT) (test code = Aspartate Amino Transf (AST/SGOT)) 56 5-34 [facility] Centererum or plasma alanine aminotransferase measurement (enzymatic activity/volume)2019-08-16 05:10:00* Test Item Value Reference Range Interpretation Comments Alanine Aminotransferase (ALT/SGPT) (test code = 1742-6) 20 0-55 [facility] CenterAmmonia Iec-nVul5562-20-05 05:10:00* Test Item Value Reference Range Interpretation Comments Ammonia (test code = 47859-7) 75 31-123 [facility]ererum or plasma protein measurement (mass/volume)2019-08-16 05:10:00* Test Item Value Reference Range Interpretation Comments Total Protein (test code = 2885-2) 7.9 6.5-8.1 [facility]ererum or plasma albumin measurement (mass/volume)2019-08-16 05:10:00* Test Item Value Reference Range Interpretation Comments Albumin (test code = 1751-7) 2.7 3.5-5.0 [facility] CenterPlasma globulin measurement (mass/volume) 2019-08-16 05:10:00* Test Item Value Reference Range Interpretation Comments Globulin (test code = 67870-8) 5.2 2.3-3.5 [facility]ererum or plasma albumin/globulin mass mmdji1905-58-40 05:10:00* Test Item Value Reference Range Interpretation Comments Albumin/Globulin Ratio (test code = 1759-0) 0.5 0.8-2.0 [facility]ererum or plasma alkaline phosphatase measurement (enzymatic activity/volume)2019-08-16 05:10:00* Test Item Value Reference Range Interpretation Comments Alkaline Phosphatase (test code = 6768-6) 74 40-150 [facility]ererum or plasma lipase measurement (enzymatic activity/volume)2019-08-16 05:10:00* Test Item Value Reference Range Interpretation Comments Lipase (test code = 3040-3) 24 8-78 [facility] Centertool gastrointestinal hemoglobin tictmonwn0803-45-63 20:05:00* Test Item Value Reference Range Interpretation Comments Stool Occult Blood (test code = 2335-8) NEGATIVE NEGATIVE [facility] Centerto gastrointestinal hemoglobin vvztamvec3144-26-59 20:05:00* Test Item Value Reference Range Interpretation Comments Stool Occult Blood (test code = 2335-8) NEGATIVE NEGATIVE [facility] gastrointestinal hemoglobin depauewyp8143-80-58 20:05:00* Test Item Value Reference Range Interpretation Comments Stool Occult Blood (test code = 2335-8) NEGATIVE NEGATIVE [facility] CenterBlood polychromasia detection by light dblwexckcw4999-60-29 05:15:00* Test Item Value Reference Range Interpretation Comments Polychromasia (test code = 93869-2) FEW [facility] CenterBlood anisocytosis detection by light bhkqdamzpx5104-59-53 05:15:00* Test Item Value Reference Range Interpretation Comments Anisocytosis (test code = 702-1) MODERATE [facility] CenterBlood ovalocytes detection by light hzsfabefil9210-86-64 05:15:00* Test Item Value Reference Range Interpretation Comments Ovalocytes (test code = 774-0) MODERATE [facility] CenterRBC vvenssitch1895-26-46 05:15:00* Test Item Value Reference Range Interpretation Comments Red Cell Morphology Comment (test code = 6742-1) ABNORMAL [facility]ererum or plasma magnesium measurement (mass/volume)2019-08-15 05:15:00* Test Item Value Reference Range Interpretation Comments Magnesium Level (test code = 49866-0) 1.6 1.3-2.1 [facility]ererum or plasma creatine kinase measurement (enzymatic activity/volume)2019-08-15 05:15:00* Test Item Value Reference Range Interpretation Comments Creatine Kinase (test code = 2157-6) 253 30-200 [facility] CenterUrine color zdhadlpsoqgtz9771-36-80 08:54:00* Test Item Value Reference Range Interpretation Comments Urine Color (test code = 5778-6) YELLOW YELLOW [facility] CenterUrine lbocfco6641-55-32 08:54:00* Test Item Value Reference Range Interpretation Comments Urine Clarity (test code = 99991-5) CLEAR CLEAR [facility] Centerpecific gravity of Urine by Test strip 2019-08-14 08:54:00* Test Item Value Reference Range Interpretation Comments Urine Specific [place] (test code = 5811-5) 1.015 1.010-1.02 5 [facility] CenterUrine pH measurement by automated test bmkbw1128-02-33 08:54:00* Test Item Value Reference Range Interpretation Comments Urine pH (test code = 80580-6) 7 5-7 [facility] CenterUrine leukocyte esterase detection by llrhyqmi2131-62-32 08:54:00* Test Item Value Reference Range Interpretation Comments Urine Leukocyte Esterase (test code = 5799-2) NEGATIVE NEGATIVE [facility] CenterUrine nitrite rsyvkeniu2143-68-91 08:54:00* Test Item Value Reference Range Interpretation Comments Urine Nitrite (test code = 41989-0) NEGATIVE NEGATIVE [facility] CenterUrine protein measurement by test strip (mass/volume)2019-08-14 08:54:00* Test Item Value Reference Range Interpretation Comments Urine Protein (test code = 5804-0) NEGATIVE NEGATIVE [facility] CenterUrine glucose onivadmjw5334-94-09 08:54:00* Test Item Value Reference Range Interpretation Comments Urine Glucose (UA) (test code = 2349-9) NEGATIVE NEGATIVE [facility] CenterUrine ketones detection by automated test hwymm1058-73-60 08:54:00* Test Item Value Reference Range Interpretation Comments Urine Ketones (test code = 28468-9) NEGATIVE NEGATIVE [facility] CenterUrine opiates screening csrr2712-75-68 08:54:00* Test Item Value Reference Range Interpretation Comments Urine Opiates Screen (test code = 10969-9) NEGATIVE NEGATIVE ALL TESTS PERFORMED MANUALLY ON [employer] TOX/SEE TESTChildress Regional Medical CenterBarbiturates screen, hylda6905-28-53 08:54:00* Test Item Value Reference Range Interpretation Comments Urine Barbiturates Screen (test code = 974671713) NEGATIVE NEGA TIVE [facility] CenterUrine phencyclidine detection by screening jvbchv6954-66-49 08:54:00* Test Item Value Reference Range Interpretation Comments Urine Phencyclidine Screen (test code = 43554-9) NEGATIVE NEGAT ELSIE [facility] CenterUrine amphetamines detection by screen method > 1000 ng/dY9139-16-55 08:54:00* Test Item Value Reference Range Interpretation Comments Urine Amphetamines Screen (test code = 64455-9) NEGATIVE NEGATI VE [facility] CenterFluoroscopic procedure less than one hour fuiohgyv9675-21-87 08:54:00* Test Item Value Reference Range Interpretation Comments Urine Methamphetamines Screen (test code = Urine Metha mphetamines Screen) NEGATIVE NEGATIVE [facility] CenterUrine benzodiazepines detection by screening mahudj1691-78-34 08:54:00* Test Item Value Reference Range Interpretation Comments Urine Benzodiazepines Screen (test code = 11606-5) NEGATIVE NEG ATIVE [facility] CenterUrine cocaine measurement (mass/volume) 2019-08-14 08:54:00* Test Item Value Reference Range Interpretation Comments Urine Cocaine Screen (test code = 3398-5) NEGATIVE NEGATIVE [facility] CenterUrine cannabinoids detection by screening lyetbm7828-35-01 08:54:00* Test Item Value Reference Range Interpretation Comments Urine Cannabinoids Screen (test code = 79419-9) NEGATIVE NEGATI VE THESE RESULTS ARE FOR MEDICAL TREATMENT ONLYTHIS REPORT CONTAINS UNCONFIR MED SCREENING RESULTS*POSITIVE RESULTS WILL BE CONFIRMED BY REFERENCE LAB UPON R EQUEST CUT-OFFDRUG CLASS CONCENTRATION ng/mLAmphetamines 1000Methamphetamines 1000Cocaine 300Opiate 300Phencyc lidine 25Cannabinoid 50Barbiturates 300Benzodiazepine 300Methadone 300[facility] CenterUrine methadone klitjl1525-95-60 08:54:00* Test Item Value Reference Range Interpretation Comments Urine Methadone Screen (test code = 56801-4) NEGATIVE NEGATIVE THESE RESULTS ARE FOR MEDICAL TREATMENT ONLYTHIS REPORT CONTAINS UNCONFIR MED SCREENING RESULTS*POSITIVE RESULTS WILL BE CONFIRMED BY REFERENCE LAB UPON R EQUEST CUT-OFFDRUG CLASS CONCENTRATION ng/mLAmphetamines 1000Methamphetamines 1000Cocaine Metabolite 300Opiate 300Phencyc lidine 25Cannabinoid 50Barbiturates 300Benzodiazepine 300Methadone 300[facility] CenterUrine urobilinogen measurement by test strip (mass/volume)2019-08-14 08:54:00* Test Item Value Reference Range Interpretation Comments Urine Urobilinogen (test code = 95276-9) 0.2 0.2-1 [facility] CenterUrine total bilirubin measurement (mass/volume)2019-08-14 08:54:00* Test Item Value Reference Range Interpretation Comments Urine Bilirubin (test code = 1978-6) NEGATIVE NEGATIVE [facility] CenterUrine erythrocytes zcunmwicy9032-88-31 08:54:00* Test Item Value Reference Range Interpretation Comments Urine Blood (test code = 01908-2) MODERATE NEGATIVE [facility] CenterAutomated urine sediment leukocyte count by microscopy (number/high power field)2019-08-14 08:54:00* Test Item Value Reference Range Interpretation Comments Urine WBC (test code = 5821-4) 21-50 0-5 [facility] CenterErythrocytes detection in urine sediment by light qrztbokgdj5179-73-87 08:54:00* Test Item Value Reference Range Interpretation Comments Urine RBC (test code = 17130-6) >50 0-5 [facility] CenterBacteria detection in urine sediment by light slrcqhhjpf1981-28-95 08:54:00* Test Item Value Reference Range Interpretation Comments Urine Bacteria (test code = 32687-2) FEW NONE [facility] CenterEpithelial cells detection in urine sediment by light spjblshdrl7868-96-18 08:54:00* Test Item Value Reference Range Interpretation Comments Urine Epithelial Cells (test code = 74922-0) MANY NONE [facility] CenterFluoroscopic procedure less than one hour kwnxxtqz0903-36-42 08:54:00* Test Item Value Reference Range Interpretation [...] complexity tests.Testing performed by [facility] [id number] [place], [place] [phone] Director: Francisco Javier Barth M.D.CLIA # [id number] Regional Medical Center Bacterial urine qwhcivo0006-26-74 08:54:00* Test Item Value Reference Range Interpretation Comments Urine Culture (test code = 630-4) ENTEROCOCCUS FAECALIS [facility] CenterUrine opiates screening sozl2679-95-68 08:54:00* Test Item Value Reference Range Interpretation Comments Urine Opiates Screen (test code = 26611-2) NEGATIVE NEGATIVE ALL TESTS PERFORMED MANUALLY ON [employer] TOX/SEE TESTChildress Regional Medical CenterBarbiturates screen, urlue0480-48-85 08:54:00* Test Item Value Reference Range Interpretation Comments Urine Barbiturates Screen (test code = 652711464) NEGATIVE NEGA TIVE [facility] CenterUrine phencyclidine detection by screening uxlude9072-10-80 08:54:00* Test Item Value Reference Range Interpretation Comments Urine Phencyclidine Screen (test code = 92426-5) NEGATIVE NEGAT ELSIE [facility] CenterUrine amphetamines detection by screen method > 1000 ng/gU8075-03-62 08:54:00* Test Item Value Reference Range Interpretation Comments Urine Amphetamines Screen (test code = 51856-3) NEGATIVE NEGATI VE [facility] CenterFluoroscopic procedure less than one hour rmoqrndu7941-17-02 08:54:00* Test Item Value Reference Range Interpretation Comments Urine Methamphetamines Screen (test code = Urine Metha mphetamines Screen) NEGATIVE NEGATIVE [facility] CenterUrine benzodiazepines detection by screening xonblo2702-72-81 08:54:00* Test Item Value Reference Range Interpretation Comments Urine Benzodiazepines Screen (test code = 08455-1) NEGATIVE NEG ATIVE [facility] CenterUrine cocaine measurement (mass/volume) 2019-08-14 08:54:00* Test Item Value Reference Range Interpretation Comments Urine Cocaine Screen (test code = 3398-5) NEGATIVE NEGATIVE [facility] CenterUrine cannabinoids detection by screening tjtxzi1093-51-28 08:54:00* Test Item Value Reference Range Interpretation Comments Urine Cannabinoids Screen (test code = 13551-7) NEGATIVE NEGATI VE THESE RESULTS ARE FOR MEDICAL TREATMENT ONLYTHIS REPORT CONTAINS UNCONFIR MED SCREENING RESULTS*POSITIVE RESULTS WILL BE CONFIRMED BY REFERENCE LAB UPON R EQUEST CUT-OFFDRUG CLASS CONCENTRATION ng/mLAmphetamines 1000Methamphetamines 1000Cocaine 300Opiate 300Phencyc lidine 25Cannabinoid 50Barbiturates 300Benzodiazepine 300Methadone 300[facility]healthU[facility] methadone dphljt8921-20-76 08:54:00* Test Item Value Reference Range Interpretation Comments Urine Methadone Screen (test code = 39115-4) NEGATIVE NEGATIVE THESE RESULTS ARE FOR MEDICAL TREATMENT ONLYTHIS REPORT CONTAINS UNCONFIR MED SCREENING RESULTS*POSITIVE RESULTS WILL BE CONFIRMED BY REFERENCE LAB UPON R EQUEST CUT-OFFDRUG CLASS CONCENTRATION ng/mLAmphetamines 1000Methamphetamines 1000Cocaine Metabolite 300Opiate 300Phencyc lidine 25Cannabinoid 50Barbiturates 300Benzodiazepine 300Methadone 300[facility] CenterBacterial urine xbqnani6184-93-93 08:54:00* Test Item Value Reference Range Interpretation Comments Urine Culture (test code = 630-4) ENTEROCOCCUS FAECALIS [facility] CenterUrine opiates screening pmxu7419-93-61 08:54:00* Test Item Value Reference Range Interpretation Comments Urine Opiates Screen (test code = 36325-7) NEGATIVE NEGATIVE ALL TESTS PERFORMED MANUALLY ON [employer] TOX/SEE TESTChildress Regional Medical CenterBarbiturates screen, ltcfi8078-27-42 08:54:00* Test Item Value Reference Range Interpretation Comments Urine Barbiturates Screen (test code = 559321120) NEGATIVE NEGA TIVE [facility] CenterUrine phencyclidine detection by screening ctasoh4891-83-50 08:54:00* Test Item Value Reference Range Interpretation Comments Urine Phencyclidine Screen (test code = 24309-3) NEGATIVE NEGAT ELSIE [facility] CenterUrine amphetamines detection by screen method > 1000 ng/dH6799-24-32 08:54:00* Test Item Value Reference Range Interpretation Comments Urine Amphetamines Screen (test code = 31540-1) NEGATIVE NEGATI VE [facility] CenterFluoroscopic procedure less than one hour uxhxodxv5546-28-48 08:54:00* Test Item Value Reference Range Interpretation Comments Urine Methamphetamines Screen (test code = Urine Metha mphetamines Screen) NEGATIVE NEGATIVE [facility] CenterUrine benzodiazepines detection by screening srhcro8219-77-41 08:54:00* Test Item Value Reference Range Interpretation Comments Urine Benzodiazepines Screen (test code = 83451-1) NEGATIVE NEG ATIVE [facility] CenterUrine cocaine measurement (mass/volume) 2019-08-14 08:54:00* Test Item Value Reference Range Interpretation Comments Urine Cocaine Screen (test code = 3398-5) NEGATIVE NEGATIVE [facility] CenterUrine cannabinoids detection by screening xvpqir1652-75-08 08:54:00* Test Item Value Reference Range Interpretation Comments Urine Cannabinoids Screen (test code = 41773-4) NEGATIVE NEGATI VE THESE RESULTS ARE FOR MEDICAL TREATMENT ONLYTHIS REPORT CONTAINS UNCONFIR MED SCREENING RESULTS*POSITIVE RESULTS WILL BE CONFIRMED BY REFERENCE LAB UPON R EQUEST CUT-OFFDRUG CLASS CONCENTRATION ng/mLAmphetamines 1000Methamphetamines 1000Cocaine 300Opiate 300Phencyc lidine 25Cannabinoid 50Barbiturates 300Benzodiazepine 300Methadone 300[facility]healthUrine methadone pzjcxj0457-10-22 08:54:00* Test Item Value Reference Range Interpretation Comments Urine Methadone Screen (test code = 08693-0) NEGATIVE NEGATIVE THESE RESULTS ARE FOR MEDICAL TREATMENT ONLYTHIS REPORT CONTAINS UNCONFIR MED SCREENING RESULTS*POSITIVE RESULTS WILL BE CONFIRMED BY REFERENCE LAB UPON R EQUEST CUT-OFFDRUG CLASS CONCENTRATION ng/mLAmphetamines 1000Methamphetamines 1000Cocaine Metabolite 300Opiate 300Phencyc lidine 25Cannabinoid 50Barbiturates 300Benzodiazepine 300Methadone 300[facility]healthBacterial urine sjzwiig4183-14-73 08:54:00* Test Item Value Reference Range Interpretation Comments Urine Culture (test code = 630-4) ENTEROCOCCUS FAECALIS [facility] J6019-74-12 08:48:00 [facility] [address] [address] Patient Name: JOCELIN CORREA MR #: [id number] : 1970 Age/Sex: 49/M Req #: [id number] [facility] Physician: Ordered by: ABA LOYA MD Report #: [id number] Location: ER Room/Bed: Procedure: [id number] CT/CT A BDOMEN/PELVIS W Exam Date: 08/14/19 [...] COPY TO: ABA LOYA MD CT BRAIN DZ9879-98-34 08:33:[address] [address] Patient Name: JOCELIN CORREA MR #: [id number] : 1970 Age/Sex: 49/M Req #: [id number] Adm Physician: Ordered by: GOLDEN WANG MD Rep ort #: [id number] Location: ER Room/B ed: Procedure: [id number] CT/CT BRAIN WO Exam Date: 08/14/19 Exam [...] MD Blood platelet clump detection by light hllqithkwt0685-20-32 05:25:00* Test Item Value Reference Range Interpretation Comments Clumped Platelets (test code = 7796-6) NONE NONE [facility] CenterBlood poikilocytosis detection by light nejsyypkri6217-96-96 05:25:00* Test Item Value Reference Range Interpretation Comments Poikilocytosis (test code = 779-9) SLIGHT [facility]ererum or plasma creatine kinase MB measurement (mass/volume)2019-08-14 05:25:00* Test Item Value Reference Range Interpretation Comments Creatine Kinase MB (test code = 29021-8) 2.60 0-5.0 [facility] CenterTroponin I measurement by highly sensitive enzyme cennmqkaycr4885-97-05 05:25:00* Test Item Value Reference Range Interpretation Comments Troponin I (test code = 43080-5) 0.008 0-0.300 [facility] Centererum or plasma amylase measurement (enzymatic activity/volume)2019-08-14 05:25:00* Test Item Value Reference Range Interpretation Comments Amylase Level (test code = 1798-8) 98 25-125 [facility] acetaminophen measurement by screening method (mass/volume)2019-08-14 05:25:00* Test Item Value Reference Range Interpretation Comments Acetaminophen Level (test code = 10726-1) < 3.0 10-30 [facility] plasma ethanol measurement (mass/volume)2019-08-14 05:25:00* Test Item Value Reference Range Interpretation Comments Ethyl Alcohol Level (test code = 5643-2) 301.6 0.0-10.0 [facility] clump detection by light wzjuhuxvjm0808-13-12 05:25:00* Test Item Value Reference Range Interpretation Comments Clumped Platelets (test code = 7796-6) NONE NONE [facility] poikilocytosis detection by light flgvmgfnff1497-83-75 05:25:00* Test Item Value Reference Range Interpretation Comments Poikilocytosis (test code = 779-9) SLIGHT [facility] acetaminophen measurement by screening method (mass/volume)2019-08-14 05:25:00* Test Item Value Reference Range Interpretation Comments Acetaminophen Level (test code = 87437-2) < 3.0 10-30 [facility] ethanol measurement (mass/volume)2019-08-14 05:25:00* Test Item Value Reference Range Interpretation Comments Ethyl Alcohol Level (test code = 5643-2) 301.6 0.0-10.0 [facility] platelet clump detection by light murfwbqjnc0954-33-54 05:25:00* Test Item Value Reference Range Interpretation Comments Clumped Platelets (test code = 7796-6) NONE NONE [facility] CenterBlood poikilocytosis detection by light hyekalshwy7767-91-95 05:25:00* Test Item Value Reference Range Interpretation Comments Poikilocytosis (test code = 779-9) SLIGHT [facility] acetaminophen measurement by screening method (mass/volume)2019-08-14 05:25:00* Test Item Value Reference Range Interpretation Comments Acetaminophen Level (test code = 90740-8) < 3.0 10-30 [facility] ethanol measurement (mass/volume)2019-08-14 05:25:00* Test Item Value Reference Range Interpretation Comments Ethyl Alcohol Level (test code = 5643-2) 301.6 0.0-10.0 [facility] Centerthyroid stimulating hormone, serum 2019-03-28 10:04:00* Test Item Value Reference Range Interpretation Comments thyroid stimulating hormone, serum (test code = 3016-3) 1.92 0 u[iU]/mL 0.450-4.500 [facility] cholesterol, zrogg5230-05-14 10:04:00* Test Item Value Reference Range Interpretation Comments LDL cholesterol, serum (test code = 2089-1) 63 mg/dL 0-99 [facility] low density mzkkpnuxcbfn2210-94-67 10:04:00* Test Item Value Reference Range Interpretation Comments very low density lipoproteins (test code = 2091-7) 10 mg/dL 5-4 0 [facility]antonHDL cholesterol, wpsha9944-81-40 10:04:00* Test Item Value Reference Range Interpretation Comments HDL cholesterol, serum (test code = 2085-9) 50 mg/dL >39 [facility]antontriglyceride, serum, dhdtojl5497-28-81 10:04:00* Test Item Value Reference Range Interpretation Comments triglyceride, serum, fasting (test code = 2571-8) 48 mg/dL 0-14 9 [facility]antoncholesterol, delff4757-75-14 10:04:00* Test Item Value Reference Range Interpretation Comments cholesterol, serum (test code = 2093-3) 123 mg/dL 100-199 [facility]antonbacteria, urine jikibdgmgr2418-82-92 10:04:00* Test Item Value Reference Range Interpretation Comments bacteria, urine microscopy (test code = 5769-5) None seen None s een/Few [facility] PubNativecast type, fnokjpslli4622-06-71 10:04:00* Test Item Value Reference Range Interpretation Comments cast type, urinalysis (test code = 30729) Hyaline casts N/A [facility] PubNativecasts, haeeq7616-11-83 10:04:00* Test Item Value Reference Range Interpretation Comments casts, urine (test code = 5626) Present None seen A [facility] Morgantonepithelial cells, fnmcx0641-82-75 10:04:00* Test Item Value Reference Range Interpretation Comments epithelial cells, urine (test code = 5787-7) 0-10 0-10 [facility] PubNativeRBC, Ddltz4719-33-59 10:04:00* Test Item Value Reference Range Interpretation Comments RBC, Urine (test code = 78298-6) 3-10 /hpf 0-2 A [facility] on rakmwpldrx8443-02-38 10:04:00* Test Item Value Reference Range Interpretation Comments WBC urine on microscopy (test code = 1016) 0-5 /hpf 0-5 [facility]organtonurinalysis, microscopic hlxcfelqukl3699-33-76 10:04:00* Test Item Value Reference Range Interpretation Comments urinalysis, microscopic examination (test code = 35063-1) See below : [facility] Morgantonnitrate, woidl8617-11-40 10:04:00* Test Item Value Reference Range Interpretation Comments nitrate, urine (test code = 84030-9) Negative Negative [facility] Morgantonurobilinogen, urine, semiquantitative (dipstick) 2019-03-28 10:04:00* Test Item Value Reference Range Interpretation Comments urobilinogen, urine, semiquantitative (dipstick) (test code = 5818-0) 0.2 0.2-1.0 [facility]antonbilirubin, tdgzy8814-64-98 10:04:00* Test Item Value Reference Range Interpretation Comments bilirubin, urine (test code = 5770-3) Negative Negative [facility]organtonketones, urine, by test sfudo8507-95-22 10:04:00* Test Item Value Reference Range Interpretation Comments ketones, urine, by test strip (test code = 5797-6) Negative Neg ative [facility] Morgantonglucose, urine, xdfltgbtygwououe0601-49-69 10:04:00* Test Item Value Reference Range Interpretation Comments glucose, urine, semiquantitative (test code = 5792-7) Negative Negative [facility]organtonprotein, urine, semiquantitative (dipstick)2019-03-28 10:04:00* Test Item Value Reference Range Interpretation Comments protein, urine, semiquantitative (dipstick) (test code = 175 3-3) Negative Negative/Trace [facility] Morgantonleukocyte esterase, urine, by soynknrx7323-42-53 10:04:00 * Test Item Value Reference Range Interpretation Comments leukocyte esterase, urine, by dipstick (test code = 5799-2) Negativ e Negative [facility]organtonappearance, gdlwe9319-65-54 10:04:00* Test Item Value Reference Range Interpretation Comments appearance, urine (test code = 5767-9) Clear Clear [facility] Morgantonurine redxj6878-41-98 10:04:00* Test Item Value Reference Range Interpretation Comments urine color (test code = 5778-6) Yellow Yellow [facility]antonpH, urine, abepmrtoqvbfmnam5810-06-75 10:04:00* Test Item Value Reference Range Interpretation Comments pH, urine, semiquantitative (test code = 5803-2) 7.5 5.0-7 .5 [facility]organtonspecific gravity, body chcij1776-17-91 10:04:00* Test Item Value Reference Range Interpretation Comments specific gravity, body fluid (test code = 2964-5) 1.008 1.00 5-1.030 [facility] Morgantonalanine aminotransferase (SGPT), bagmj6334-48-87 10:04:00 * Test Item Value Reference Range Interpretation Comments alanine aminotransferase (SGPT), serum (test code = 1742-6) 17 1/L 0-44 [facility] Morgantonaspartate aminotransferase (SGOT), xxoxs5999-23-38 10:04:00* Test Item Value Reference Range Interpretation Comments aspartate aminotransferase (SGOT), serum (test code = 1920-8) 34 1/ L 0-40 [facility]organtonalkaline phosphatase, mgjib1364-33-92 10:04:00* Test Item Value Reference Range Interpretation Comments alkaline phosphatase, serum (test code = 1783-0) 72 1/L 39-11 7 [facility]antonbilirubin, serum, xosvm0605-09-13 10:04:00* Test Item Value Reference Range Interpretation Comments bilirubin, serum, total (test code = 1975-2) 1.3 mg/dL 0.0-1.2 H [facility] Morgantonalbumin/globulin ratio, qljlo9303-58-06 10:04:00* Test Item Value Reference Range Interpretation Comments albumin/globulin ratio, serum (test code = 1759-0) 0.6 1.2 -2.2 L [facility] Morgantonglobulin, qhshh3944-50-38 10:04:00* Test Item Value Reference Range Interpretation Comments globulin, serum (test code = 2336-6) 5.7 1.5-4.5 H [facility] Morgantonalbumin, hbuym7165-75-50 10:04:00* Test Item Value Reference Range Interpretation Comments albumin, serum (test code = 1751-7) 3.3 g/dL 3.5-5.5 L [facility]organtonprotein, total, svhkr2479-85-26 10:04:00* Test Item Value Reference Range Interpretation Comments protein, total, serum (test code = 2885-2) 9.0 g/dL 6.0-8.5 H [facility] Healthcalcium, hcmdq2818-75-65 10:04:00* Test Item Value Reference Range Interpretation Comments calcium, serum (test code = 2000-8) 8.2 mg/dL 8.7-10.2 L [facility]antoncarbon dioxide, venous dgemy9674-36-41 10:04:00* Test Item Value Reference Range Interpretation Comments carbon dioxide, venous blood (test code = 202-1) 23 mmol/L 20-2 9 [facility] Healthchloride, ntwxs2044-60-68 10:04:00* Test Item Value Reference Range Interpretation Comments chloride, serum (test code = 2075-0) 94 mmol/L 96-106 L [facility] Healthpotassium, xugqd7839-64-47 10:04:00* Test Item Value Reference Range Interpretation Comments potassium, serum (test code = 2823-3) 3.8 mmol/L 3.5-5.2 [facility]organtonsodium, biewl0286-70-15 10:04:00* Test Item Value Reference Range Interpretation Comments sodium, serum (test code = 2951-2) 134 mmol/L 134-144 [facility] Morgantonurea nitrogen/creatinine ratio, rphww6988-59-07 10:04:00 * Test Item Value Reference Range Interpretation Comments urea nitrogen/creatinine ratio, serum (test code = 3097-3) 15 9-20 [facility] HealtheGFR if Nljvypaa7242-17-60 10:04:00* Test Item Value Reference Range Interpretation Comments eGFR if (test code = 42195-9) 66 mL/min/((173/100) .m2) >59 [facility] MorgantonEstimated Glomerular Filtration Rate (calc)2019-03-28 10:04:00* Test Item Value Reference Range Interpretation Comments Estimated Glomerular Filtration Rate (calc) (test code = 96300-4) 57 mL/min/((173/100).m2) >59 L [facility] Morgantoncreatinine, wrmgf2749-58-46 10:04:00* Test Item Value Reference Range Interpretation Comments creatinine, serum (test code = 2160-0) 1.44 mg/dL 0.76-1.27 H [facility] Morgantonurea nitrogen, gxvrc1494-58-78 10:04:00* Test Item Value Reference Range Interpretation Comments urea nitrogen, blood (test code = 3094-0) 21 mg/dL 6-24 [facility]antonblood glucose, ejlogr4676-36-13 10:04:00* Test Item Value Reference Range Interpretation Comments blood glucose, random (test code = 2339-0) 104 mg/dL 65-99 H [facility] Morgantonimmature granulocytes, percentage of total cells, blood 2019-03-28 10:04:00* Test Item Value Reference Range Interpretation Comments immature granulocytes, percentage of total cells, bloo d (test code = 13308-1) 0 % [facility] Morgantonbasophil count, tbcokqyc2204-39-92 10:04:00* Test Item Value Reference Range Interpretation Comments basophil count, absolute (test code = 60424-2) 0.0 x10E3/uL 0.0-0.2 [facility]organtonEosinophil Absolute Wcywi8293-79-56 10:04:00* Test Item Value Reference Range Interpretation Comments Eosinophil Absolute Count (test code = 81925-2) 0.5 X10E3/UL 0.0-0. 4 H [facility] Morgantonmonocyte count, blood, zjxcgqvuj5579-30-91 10:04:00* Test Item Value Reference Range Interpretation Comments monocyte count, blood, automated (test code = 742-7) 0.8 X10E3/UL 0 .1-0.9 [facility] Morgantonlymphocyte count, blood, olkhhdaia4403-96-45 10:04:00* Test Item Value Reference Range Interpretation Comments lymphocyte count, blood, automated (test code = 731-0) 0.9 X10E3/UL 0.7-3.1 [facility] MorgantonAbsolute Qvipoqeexom2501-98-13 10:04:00* Test Item Value Reference Range Interpretation Comments Absolute Neutrophils (test code = 63393-5) 3.5 X10E3/UL 1.4-7.0 [facility]antonbasophils as percent of blood oaeemibpzm8512-37-59 10:04:00* Test Item Value Reference Range Interpretation Comments basophils as percent of blood leukocytes (test code = 707-0) 1 % [facility] Morgantoneosinophils as percent of blood gcktsbmhma0146-06-01 10:04:00* Test Item Value Reference Range Interpretation Comments eosinophils as percent of blood leukocytes (test code = 713-8) 9 % [facility] Healthmonocytes as percent of blood hpgwzhsify7961-20-64 10:04:00* Test Item Value Reference Range Interpretation Comments monocytes as percent of blood leukocytes (test code = 5905-5) 13 % [facility] Morgantonlymphocytes as percent of blood pzsyynhtzi6241-57-32 10:04:00* Test Item Value Reference Range Interpretation Comments lymphocytes as percent of blood leukocytes (test code = 736-9) 16 % [facility]organtonneutrophils as percent of blood bmjumcsoqn2998-57-82 10:04:00* Test Item Value Reference Range Interpretation Comments neutrophils as percent of blood leukocytes (test code = 770-8) 61 % [facility] Morgantonplatelet inhew0009-89-85 10:04:00* Test Item Value Reference Range Interpretation Comments platelet count (test code = 777-3) 102 X10E3/UL 150-450 L [facility] Morgantonred blood cell distribution dardp4261-12-75 10:04:00* Test Item Value Reference Range Interpretation Comments red blood cell distribution width (test code = 788-0) 20.5 % 11.6-15.4 H [facility] corpuscular hemoglobin concentration, QMZ5024-17-63 10:04:00* Test Item Value Reference Range Interpretation Comments mean corpuscular hemoglobin concentration, RBC (test code = 786-4) 28.8 G/DL 31.5-35.7 L [facility] corpuscular hemoglobin, OXT2007-18-15 10:04:00* Test Item Value Reference Range Interpretation Comments mean corpuscular hemoglobin, RBC (test code = 785-6) 22.4 pg 2 6.6-33.0 L [facility] corpuscular volume, JKG6202-86-74 10:04:00* Test Item Value Reference Range Interpretation Comments mean corpuscular volume, RBC (test code = 787-2) 78 fL 79-97 L [facility]antonhematocrit, eabwn6206-22-95 10:04:00* Test Item Value Reference Range Interpretation Comments hematocrit, blood (test code = 4544-3) 32.3 % 37.5-51.0 L [facility]antonhemoglobin, qfpvy2647-70-21 10:04:00* Test Item Value Reference Range Interpretation Comments hemoglobin, blood (test code = 718-7) 9.3 g/dL 13.0-17.7 L [facility]organtonerythrocyte (RBC) iqqnq1575-54-85 10:04:00* Test Item Value Reference Range Interpretation Comments erythrocyte (RBC) count (test code = 789-8) 4.16 X10E6/UL 4.14-5.80 [facility]antonleukocyte count, edkna8262-16-83 10:04:00* Test Item Value Reference Range Interpretation Comments leukocyte count, blood (test code = 6690-2) 5.7 X10E3/UL 3.4-10.8 [facility] HealthCARDIAC VPAFXRE7646-82-23 17:40:00<0.02[facility] CHEM CRIPB4018-86-25 17:40:16066Viajewpp PqosooxTHJUOVKZUTNU9365-68-65 17:40:00 9.5[facility] MkwrikbLBVCAOYWOFXS4396-11-89 17:40:00* Test Item Value Reference Range Interpretation Comments B/C Ratio (test code = B/C Ratio) 12 1 6-25 [facility] FwzujqkUSHEIBLEGLSN6270-15-05 17:40:006.2[facility] HermannELECTROLYTES 2019-02-26 17:40:00* Test Item Value Reference Range Interpretation Comments A/G Ratio (test code = A/G Ratio) 0.4 1 0.7-1.6 [facility] BkvqrzzHNLNYBAVHLDG2142-63-90 17:40:0086[facility] HermannELECTROLYTES 2019-02-26 17:40:0011[facility] AzshatyTAIJMDZLAHOE4184-52-61 17:40:000.92[facility] QqqgmjiQRIZITLVOPWE8917-18-99 17:40:74775Nwuckmvw JmqalzmNNUQWHVMJZHQ4811-50-90 17:40:003.5[facility] SiajhnsGFTSCQALMNSX4236-00-83 17:40:72836Vgqufgsn Levon WJPBTCUMNXZM6469-05-55 17:40:0026[facility] GffymkpCBWMREJGCSHM7679-01-03 17:40:00 8.3[facility] NgnydgmLTYSDEOAEHQO2937-72-24 17:40:008.5[facility] PPTMCEAAHXPU6285-82-14 17:40:002.3[facility] BmnnruiSSSQXHVSXHIL8264-60-70 17:40:0040[facility] QetcwcnMZTDNXMHBELB0138-62-40 17:40:34775Ghxyimzr [place] AQHWRBNQKWRF4738-42-27 17:40:0073[facility] GrotljcVRAPEIUGZOJT4412-19-53 17:40:00 0.7[facility] UuezwjbHYXMMTSEGZCM9976-34-46 17:40:0098[facility]annHEMATOLOGY 2019-02-26 17:40:00See Note (02/26/19 11:40 AM)[facility]annHEMATOLOGY 2019-02-26 17:40:00Normal (02/26/19 11:40 AM)[facility]annHEMATOLOGY 2019-02-26 17:40:0041.5[facility] YfbwnhmCMMRTALVXH2900-88-50 17:40:0032.8[facility] AfzdcznBGIXGJKKEH8787-65-87 17:40:0012.4[facility] XrnblzwZCZMUGYRNE3500-05-77 17:40:0012.3[facility] TiznlvaLPIWRELEJO3590-81-96 17:40:001.0[facility] IRQSKDONVU6796-63-87 17:40:001.3[facility] FmtdiwjXCAUVOZKUP9053-39-12 17:40:001.0 [facility] AdgxogwPILQYFJPHE0200-20-66 17:40:000.4[facility]annHEMATOLOGY 2019-02-26 17:40:000.4[facility] VblkgyyYYTYMNTKXS8402-00-24 17:40:001+ *ABN*(02/26/19 11:40 AM)[facility] NbcpglnIBKNZATKDM7182-82-38 17:40:001+ *ABN*(02/26/19 11:40 AM)[facility] YamyzknDKHKWRWBFC0450-13-18 17:40:002+ (02/26/19 11:40 AM)[facility] EtoprggHUUPBDGVQK6568-52-88 17:40:003.1[facility] XfxocvgCGQJYNIJLO0544-50-22 17:40:003.80[facility] YgircitCYCMPABZLT6746-22-95 17:40:008.6[facility] ThzafqlLREIEYDLZW4236-45-97 17:40:0027.3[facility] IIODLNTULP1532-34-14 17:40:0072.0[facility] XczgthaRPQWMSQPWH5420-17-64 17:40:00* Test Item Value Reference Range Interpretation Comments MCH (test code = MCH) 22.6 pg 27.0-31.0 [facility] CenterWyksspvEOYYBVPESF8419-89-99 17:40:0031.4[facility]annHE[facility]OLOGY 2019-02-26 17:40:0021.4[facility] GuchswlOMUSRNKOHN9922-44-12 17:40:0043[facility] DyxkktrUZSJOSKSFC9406-37-89 17:40:009.0[facility]Cam[facility] HospitalOxudpwsJJWBBJHSTJ9002-23-46 17:40:00* Test Item Value Reference Range Interpretation Comments PT (test code = PT) 15.4 s 12.0-14.7 [facility] CenterMklspdrZFROZZLBPF3172-00-08 17:40:00* Test Item Value Reference Range Interpretation Comments INR (test code = INR) 1.21 1 0.85-1.17 [facility] HealthOluzmjkTFTYJYOGZG6016-67-95 17:40:00* Test Item Value Reference Range Interpretation Comments PTT (test code = PTT) 32.4 s 22.9-35.8 [facility]INAL[facility] GSMESKBT8750-80-28 08:25:00* Test Item Value Reference Range Interpretation [...] Urine Source? Clean CatchDRUGS OF ABUSE SCREEN WS0013-83-12 08:25:00* Test Item Value Reference Range Interpretation [...] NEGATIVE <300 ng/mL Urine Source? Clean CatchURINALYSIS LXWKQIQA6132-93-38 08:14:00* Test Item Value Reference Range Interpretation [...] Urine Source? Clean CatchDRUGS OF ABUSE SCREEN TK3935-01-60 08:14:00* Test Item Value Reference Range Interpretation [...] Source? Clean Catch- CT ABD PELVIS W/O WENY7597-36-53 08:02:00 Name: JOCELIN CORREA [facility] : 1970 Age/S: 48 / M [address] [facility] Unit #: [id number] Loc: [place] [address] Phys: Melania Roberts MD Acct: [id number] Di s Date: Status: REG ER PHONE #: Exam Date: 01/15/2019 0739 FAX #: Reason: abdominal pain EXAMS: CPT CODE: [id number] CT ABD PELVIS W/O CONT 97578 REASON FOR EXAM: abdomina l pain EXAM [...] 1 Signed Report (CONTINUED) Name: MICHELLE CORREA [facility] : 1970 Age/S : 48 / M [address] Unit #: [id number] Loc: [place] [address] Phys: Maryan Robetrs MD Acct: [id number] Dis Date: Status: REG ER PHONE #: [phone] Ex am Date: 01/15/2019 07 FAX #: [phone] Reason: a bdominal pain EXAMS: CPT CODE: [id number] CT ABD PELVIS W/O CONT 16062 <Continued> Abdominal vascular structures: Grossly normal Peritoneum [...] with an ultrasound. Nonobstructing right-sided nephrolithiasis. [facility] at 0802 Reported and signed by: [...] CA) 8.8 mg/dL 8.5-10.1 N HEPATIC FUNCTION VVXIO0664-92-01 06:53:00* Test Item Value Reference Range Interpretation [...] reference range due to change in reagent. ACCSCO0842-78-49 06:53:00* Test Item Value Reference Range Interpretation Comments LIPASE (test code = LIP) 202 U/L 73.0-393.0 N VMYOOOAO-X9399-70-05 06:53:00* Test Item Value Reference Range Interpretation Comments TROPONIN-I (test code = TROPI) <0.015 ng/mL 0-0.045 N KWFDJMB2248-43-53 06:53:00* Test Item Value Reference Range Interpretation Comments ALCOHOL (test code = ALC) 93 mg/dL 0.0-3.0 H -- INTERPRETIVE DATA NOTE: POSITIVE SCREENING RESULTS SHOULD BE CONSIDERED PRESUMPTIVE.WHEN COLLECTED FOR MEDICAL PURPOSES ONLY. SPECIMEN WILL NOTBE COLLECTED BY CHAIN OF CUSTODY.IF A CONFIRMATION OF POSITIVE RESULTS IS DESIRED, ACONFIRMATION TEST MUST BE REQUESTED BY THE PHYSICIAN AT ANADDITIONAL CHARGE TO THE PATIENT. LYVTZXC3272-02-09 06:52:00* Test Item Value Reference Range Interpretation Comments AMMONIA (test code = AMM) 83 umol/L 11-32 H CBC W/O HERQ2173-36-34 06:39:00* Test Item Value Reference Range Interpretation [...] 10.1 fL 6.7-11.0 N - US ABDOMEN XBPQFVKM6920-60-73 09:19:00 Name: CHELLY CORREA [facility] : 1970 Age/S: 48 / M [address] Unit #: [id number] Loc: [place] [address] Phys: González Nunez MD Acct: [id number] Dis Date: Status: REG CLI PHONE #: [phone] Exam Date: 12/25/2018 0855 FAX #: [phone] Reason: 571.5,K74.60,211.3,D12.6,V85.25,E66.3 EXAMS: CPT CODE: [id number] US ABDOMEN COMPLETE 15689 REASON FOR EXAM: 571.5,K7 4.60,211.3,D12.6,V85.25,E66.3 EXAM ORDER [...] 1 Signed Report (CONTINUED) Name: CHELLY CORREA [facility] : 1970 Age/S: 48 / M [address] [facility] Unit #: [id number] Loc: [place] [address] Phys: González Nunez MD Acct: [id number] Dis Date: Status: REG CLI PHONE #: [phone] Exam Date: 12/25/2018 0855 FAX #: [phone] Reason: 571.5,K74.60,211.3,D12.6,V85.25,E66.3 EXAMS: CPT CODE: [id number] US ABDOMEN COMPLETE 80868 < Continued> Left kidney: parenchyma echogenicity: Normal [...] 12/25/2018 (09) Probe: PAGE 2 Signed Report [id number] 16:26:00* Test Item Value Reference Range Interpretation Comments GLUBED (test code = GLUBED) 101 mg/dL 74-106 N Performed by certified screen room operator at [facility] CBC W/AUTO [id number] 09:15:00* Test Item Value Reference Range Interpretation [...] = MDIFF) NO, ONLY SCAN NEEDED DIFFERENTIAL NUVL3929-61-32 09:15:00* Test Item Value Reference Range Interpretation Comments STAIN ACCEPTABILITY (test code = STN ACCEPTABLE) STAIN ACCEPTABLE HYPOCHROMIA (test code = HYPO) 1+ ANISOCYTOSIS (test code = ANISO) 2+ MICROCYTOSIS (test code = MICR) 1+ MORPHOLOGY COMMENT (test code = MOC) NORMAL PLATELET ESTIMATE (test code = PLTEST) DECREASED COMPREHENSIVE METABOLIC OMSDK2719-50-18 08:48:00* Test Item Value Reference Range Interpretation [...] FESAT) 5.80 % 13-45 L THYROID STIMULATING AQLHTOB4014-35-93 08:48:00* Test Item Value Reference Range Interpretation Comments THYROID STIMULATING HORMONE (test code = TSH) 2.940 uIU/mL 0.36-3.7 4 N TSH REFERENCE RANGES: EUTHYROID: 0.35 - 4.3 mIU/mL HYPO : > 5.5 mIU/mL HYPER : < 0.35 mIU/mL UVRSRGRZ9115-67-42 08:48:00* Test Item Value Reference Range Interpretation Comments FERRITIN (test code = GRABIEL) 12 ng/mL 8-388 N COMPREHENSIVE METABOLIC BKEMR0740-40-02 08:19:00* Test Item Value Reference Range Interpretation [...] code = FESAT) % 13-45 THYROID STIMULATING QNSPDVU9813-11-22 08:19:00* Test Item Value Reference Range Interpretation Comments THYROID STIMULATING HORMONE (test code = TSH) uIU/mL 0.36-3.7 4 UPSNIURK0969-74-20 08:19:00* Test Item Value Reference Range Interpretation Comments FERRITIN (test code = GRABIEL) ng/mL 8-388 CBC W/AUTO [id number] 08:11:00* Test Item Value Reference Range Interpretation [...] = MDIFF) NO, ONLY SCAN NEEDED DIFFERENTIAL [id number] 08:11:00* Test Item Value Reference Range Interpretation Comments STAIN ACCEPTABILITY (test code = STN ACCEPTABLE) CABOT RINGS (test code = CAB) MORPHOLOGY COMMENT (test code = MOC) PLATELET ESTIMATE (test code = PLTEST) PLATELET MORPHOLOGY (test code = PLTMORPH) CBC W/AUTO [id number] 08:11:00* Test Item Value Reference Range Interpretation [...] = MDIFF) NO, ONLY SCAN NEEDED DIFFERENTIAL [id number] 08:11:00* Test Item Value Reference Range Interpretation Comments STAIN ACCEPTABILITY (test code = STN ACCEPTABLE) CABOT RINGS (test code = CAB) MORPHOLOGY COMMENT (test code = MOC) PLATELET ESTIMATE (test code = PLTEST) PLATELET MORPHOLOGY (test code = PLTMORPH) CBC W/AUTO [id number] 08:11:00* Test Item Value Reference Range Interpretation [...] = MDIFF) NO, ONLY SCAN NEEDED DIFFERENTIAL [id number] 08:11:00* Test Item Value Reference Range Interpretation Comments STAIN ACCEPTABILITY (test code = STN ACCEPTABLE) MORPHOLOGY COMMENT (test code = MOC) PLATELET ESTIMATE (test code = PLTEST) PLATELET MORPHOLOGY (test code = PLTMORPH) CBC W/AUTO [id number] 08:10:00* Test Item Value Reference Range Interpretation [...] = MDIFF) NO, ONLY SCAN NEEDED DIFFERENTIAL [id number] 08:10:00* Test Item Value Reference Range Interpretation Comments STAIN ACCEPTABILITY (test code = STN ACCEPTABLE) CABOT RINGS (test code = CAB) MORPHOLOGY COMMENT (test code = MOC) PLATELET ESTIMATE (test code = PLTEST) PLATELET MORPHOLOGY (test code = PLTMORPH) [id number] 08:09:00* Test Item Value Reference Range Interpretation Comments AMMONIA (test code = AMM) 89 umol/L 11-32 H [id number] 08:09:00* Test Item Value Reference Range Interpretation Comments GLYCOSYLATED HEMOGLOBIN (HA1C) (test code = GLYHGB) 5.0 % HbA1 4. 8-6.0 N ESTIMATED AVERAGE GLUCOSE (test code = EAG) 97 MG/DL [id number] 05:52:00* Test Item Value Reference Range Interpretation Comments GLUBED (test code = GLUBED) 100 mg/dL 74-106 N Performed by certified screen room operator at [facility] [id number] 20:26:00* Test Item Value Reference Range Interpretation Comments GLUBED (test code = GLUBED) 111 mg/dL 74-106 H Performed by certified screen room operator at [facility] PROTHROMBIN [id number] 15:38:00* Test Item Value Reference Range Interpretation [...] (2.5-3.5) IS PATIENT ON ANTICOAGULANTS? NTHROMBOPLASTIN TIME [id number] 15:38:00* Test Item Value Reference Range Interpretation Comments THROMBOPLASTIN TIME PARTIAL (test code = PTT) 36.6 seconds 25.0-36. 5 H IS PATIENT ON ANTICOAGULANTS? [id number] 14:10:00* Test Item Value Reference Range Interpretation Comments PHOSPHORUS (test code = PHOS) 3.3 mg/dL 2.5-4.9 N [id number] 14:10:00* Test Item Value Reference Range Interpretation Comments AMYLASE (test code = JUAN) 69 Unit/L 25-115 N [id number] 14:10:00* Test Item Value Reference Range Interpretation Comments LIPASE (test code = LIP) 116 U/L 73.0-393.0 N [id number] 14:10:00* Test Item Value Reference Range Interpretation Comments MAGNESIUM (test code = MAG) 2.3 mg/dL 1.8-2.4 N VITAMIN [id number] 14:10:00* Test Item Value Reference Range Interpretation Comments VITAMIN B12 (test code = VITB12) 776 pg/mL 193-986 N FOLIC [id number] 14:10:00* Test Item Value Reference Range Interpretation Comments FOLIC ACID (test code = FOL) 33.2 ng/mL 3.10-17.50 H [id number] 14:10:00* Test Item Value Reference Range Interpretation [...] TO THE PATIENT. - CT HEAD/BRAIN W/O [id number] 07:29:00 Name: JOCELIN CORREA [facility] : 1970 Age/S: 48 / M [address] [facility] Unit #: [id number] Loc: [place] [address] Phys: Lolis Parks DO Acct: [id number] Dis Date: Status: REG ER PHONE #: [phone] Exam Date: 12/06/2018 0635 FAX #: [phone] Reason: Altered Mental Status EXAMS: CPT CODE: [id number] CT HEAD/BRAIN W/O CONT 02794 HISTORY: Altered mental status TECHNIQUE: Noncontrast 2.5 [...] (07) ThanhLDP1 Orig Print D/T: S: 12/06/2018 (1818) PAGE 1 Signed Report CBC W/AUTO [id number] 07:26:00* Test Item Value Reference Range Interpretation [...] = MDIFF) NO, ONLY SCAN NEEDED DIFFERENTIAL [id number] 07:26:00* Test Item Value Reference Range Interpretation Comments STAIN ACCEPTABILITY (test code = STN ACCEPTABLE) STAIN ACCEPTABLE HYPOCHROMIA (test code = HYPO) 1+ ANISOCYTOSIS (test code = ANISO) 1+ MACROCYTOSIS (test code = MACR) 1+ PLATELET ESTIMATE (test code = PLTEST) DECREASED PLATELET MORPHOLOGY (test code = PLTMORPH) SIZE VARIABLE URINALYSIS [id number] 07:12:00* Test Item Value Reference Range Interpretation [...] Urine Source? Clean CatchDRUGS OF ABUSE SCREEN [id number] 07:12:00* Test Item Value Reference Range Interpretation [...] NEGATIVE <300 ng/mL Urine Source? Clean CatchURINALYSIS [id number] 07:08:00* Test Item Value Reference Range Interpretation [...] Urine Source? Clean CatchDRUGS OF ABUSE SCREEN [id number] 07:08:00* Test Item Value Reference Range Interpretation [...] [place]) <300 ng/mL Urine Source? Clean CatchURINALYSIS [id number] 07:01:00* Test Item Value Reference Range Interpretation [...] Urine Source? Clean CatchDRUGS OF ABUSE SCREEN [id number] 07:01:00* Test Item Value Reference Range Interpretation [...] <300 ng/mL Urine Source? Clean CatchBASIC METABOLIC [id number] 06:46:00* Test Item Value Reference Range Interpretation [...] CA) 8.5 mg/dL 8.5-10.1 N HEPATIC FUNCTION [id number] 06:46:00* Test Item Value Reference Range Interpretation [...] reference range due to change in reagent. [id number] 06:46:00* Test Item Value Reference Range Interpretation Comments TROPONIN-I (test code = TROPI) <0.015 ng/mL 0-0.045 N AGGFVQANWJZFE9639-57-58 06:46:00* Test Item Value Reference Range Interpretation Comments ACETAMINOPHEN (test code = ACET) < 10 mcg/mL 10-30 L A RANGE OF 10-30 mcg/mL IS A THERAPEUTIC RANGE. TOXIC CONCENTRATIONS: >150 mcg/mL AT 4 HOURS AFTER INGESTION >= 50 mcg/mL AT 12 HOURS AFTER INGESTION [id number] 06:46:00* Test Item Value Reference Range Interpretation Comments SALICYLATE (test code = KAILEY) < 1.7 mg/dL 2.8-20.0 L [id number] 06:46:00* Test Item Value Reference Range Interpretation [...] AT ANADDITIONAL CHARGE TO THE PATIENT. PROTHROMBIN [id number] 06:44:00* Test Item Value Reference Range Interpretation [...] (2.5-3.5) IS PATIENT ON ANTICOAGULANTS? NTHROMBOPLASTIN TIME [id number] 06:44:00* Test Item Value Reference Range Interpretation Comments THROMBOPLASTIN TIME PARTIAL (test code = PTT) 34.6 seconds 25.0-36. 5 N IS PATIENT ON ANTICOAGULANTS? [id number] 06:37:00* Test Item Value Reference Range Interpretation Comments AMMONIA (test code = AMM) 152 umol/L 11-32 H BASIC METABOLIC [id number] 06:31:00* Test Item Value Reference Range Interpretation [...] code = CA) mg/dL 8.5-10.1 HEPATIC FUNCTION [id number] 06:31:00* Test Item Value Reference Range Interpretation [...] TOTAL (test code = ALKP) IUnit/L 45-117 [id number] 06:31:00* Test Item Value Reference Range Interpretation Comments TROPONIN-I (test code = TROPI) ng/mL 0-0.045 NWJDUKPGOFXKC1387-71-83 06:31:00* Test Item Value Reference Range Interpretation Comments ACETAMINOPHEN (test code = ACET) mcg/mL 10-30 [id number] 06:31:00* Test Item Value Reference Range Interpretation Comments SALICYLATE (test code = KAILEY) mg/dL 2.8-20.0 [id number] 06:31:00* Test Item Value Reference Range Interpretation Comments ALCOHOL (test code = ALC) mg/dL 0-3 CBC W/AUTO [id number] 06:21:00* Test Item Value Reference Range Interpretation [...] = MDIFF) NO, ONLY SCAN NEEDED DIFFERENTIAL [id number] 06:21:00* Test Item Value Reference Range Interpretation Comments STAIN ACCEPTABILITY (test code = STN ACCEPTABLE) CABOT RINGS (test code = CAB) MORPHOLOGY COMMENT (test code = MOC) PLATELET ESTIMATE (test code = PLTEST) PLATELET MORPHOLOGY (test code = PLTMORPH) CBC W/AUTO [id number] 06:21:00* Test Item Value Reference Range Interpretation [...] = MDIFF) NO, ONLY SCAN NEEDED DIFFERENTIAL [id number] 06:21:00* Test Item Value Reference Range Interpretation Comments STAIN ACCEPTABILITY (test code = STN ACCEPTABLE) MORPHOLOGY COMMENT (test code = MOC) PLATELET ESTIMATE (test code = PLTEST) PLATELET MORPHOLOGY (test code = PLTMORPH) CBC W/AUTO [id number] 06:21:00* Test Item Value Reference Range Interpretation [...] = MDIFF) NO, ONLY SCAN NEEDED DIFFERENTIAL [id number] 06:21:00* Test Item Value Reference Range Interpretation Comments STAIN ACCEPTABILITY (test code = STN ACCEPTABLE) MORPHOLOGY COMMENT (test code = MOC) PLATELET ESTIMATE (test code = PLTEST) PLATELET MORPHOLOGY (test code = PLTMORPH) CBC W/AUTO [id number] 06:20:00* Test Item Value Reference Range Interpretation [...] = MDIFF) NO, ONLY SCAN NEEDED DIFFERENTIAL [id number] 06:20:00* Test Item Value Reference Range Interpretation Comments STAIN ACCEPTABILITY (test code = STN ACCEPTABLE) CABOT RINGS (test code = CAB) MORPHOLOGY COMMENT (test code = MOC) PLATELET ESTIMATE (test code = PLTEST) PLATELET MORPHOLOGY (test code = PLTMORPH) - XR CHEST 1 [id number] 06:08:00 FAX: Lolis Parks DO [place]: B St: REG Name: JOCELIN CARROLL [facility] : [birth year] Age/S: 48/M [address] [facility] Unit #: [id number] Loc: [place] [address] Phys: Lolis Parks DO Acct: [id number] Dis Date: Status: REG ER PHONE #: [phone] Exam Date: 12/06/2018 0557 FAX #: [phone] Reason: Altered Mental Status EXAMS: CPT CODE: [id number] XR CHEST 1 V 57718 AFTER HOURS SERVICE ON: 12/06/2018 6:07 AM [...] (610) PAG E 1 Signed Report CARDIAC [id number] 02:39:0028[facility]annCARDIAC LKZSVAS7637-59-26 02:39:00< 0.02[facility]annCHEM VDDXB6183-44-15 02:39:92468Udwrguxr HermannCHEM PANEL 2018-08-25 02:39:12049Ktvbqjdi HermannCHEM AEKMI2470-97-80 02:39:002.9[facility]annCHEM JEMVE5144-78-47 02:39:78797Zalnwwiu HermannCHEM UOJKJ3978-67-28 02:39:0028[facility]annCHEM XHMHD9852-06-46 02:39:000.79[facility]annCHEM QCLRK7052-31-61 02:39:00* Test Item Value Reference Range Interpretation Comments B/C Ratio (test code = B/C Ratio) 16 1 6-25 [facility]annCHEM QCKZC9440-31-63 02:39:008.0[facility]annCHEM PANEL 2018-08-25 02:39:0089[facility] HermannCHEM TNOCE9071-05-09 02:39:000.6[facility]annCHEM CIJYA3397-01-70 02:39:006.1[facility]annCHEM AXPJS0546-84-68 02:39:00* Test Item Value Reference Range Interpretation Comments A/G Ratio (test code = A/G Ratio) 0.3 1 0.7-1.6 [facility]annCHEM HDEIP7256-88-11 02:39:0026[facility]annCHEM PANEL 2018-08-25 02:39:0077[facility]annCHEM PWTLD5391-50-31 02:39:001.9[facility]annCHEM KHRKP7837-74-42 02:39:008.9[facility]annCHEM KMIVO2101-18-67 02:39:007.9[facility]annCHEM DOIKF2935-63-04 02:39:99272Zkfemtsx HermannCHEM JGBON4080-96-94 02:39:0013[facility]annCHEM DMXMY7683-78-05 02:39:83953 [facility] LswmhtfCBYGNZNJMK1136-29-97 02:39:000.2[facility] HermannHEMATOLOGY 2018-08-25 02:39:000.6[facility] WglhkomRGBEDATGHU0172-06-07 02:39:001.2[facility] BbklaneDIIOMINOWD6479-72-68 02:39:000.3[facility] XnkafnzBZMJMVFOYN7633-28-89 02:39:001.3[facility] CcfowrbOTPLIRPHXS5747-44-01 02:39:001+ *ABN*(08/24/18 9:39 PM)[facility] BoumzurMXUDPGBRSF5943-82-50 02:39:0025.3[facility] HermannHEMATOLOGY 2018-08-25 02:39:0053.3[facility] IeozyxsFBVVADXEBD8418-50-11 02:39:008.8[facility] QuucrmgHUGUTHTVGT3555-74-07 02:39:0011.3[facility] IekvjljKTQVSLJIOD0724-01-95 02:39:00* Test Item Value Reference Range Interpretation Comments PT (test code = PT) 14.7 s 12.0-14.7 [facility] TjwubsmJQWCANHNMF8815-96-15 02:39:00* Test Item Value Reference Range Interpretation Comments PTT (test code = PTT) 34.7 s 22.9-35.8 [facility] MmpbqilDHLREIVYPD4445-95-94 02:39:00* Test Item Value Reference Range Interpretation Comments INR (test code = INR) 1.17 1 0.85-1.17 [facility] JapwbulHWVAHETZWC9473-95-04 02:39:008.4[facility] HermannHEMATOLOGY 2018-08-25 02:39:0076[facility] KaiibplGRAQLYBSUO4150-24-16 02:39:0019.3[facility] IvzyfztRHTHSRAQCY4808-26-82 02:39:0025.7[facility] MedlkbxLJREBWXLSJ0289-72-01 02:39:0078.5[facility] DtswjnmSNVTWWINGA4680-56-52 02:39:0031.7[facility] DXWCXCAERN0353-46-93 02:39:00* Test Item Value Reference Range Interpretation Comments MCH (test code = MCH) 24.8 pg 27.0-31.0 [facility] BfswwffAHYVZXUJYL5064-06-17 02:39:003.27[facility] HermannHEMATOLOGY 2018-08-25 02:39:008.1[facility] StkwiizVPNGHBSVVW4864-87-20 02:39:002.3[facility]annURINE AND ZTAWH0128-88-41 09:25:00Negative (08/04/18 4:25 AM)[facility]annBLOOD BANK CFRLKXF8353-60-05 06:09:00Negative (08/04/18 1:09 AM)[facility]annCARDIAC JYGNTLF4509-54-71 06:09:00<0.02[facility]annCHEM PANEL 2018-08-04 06:09:72787Koxgvjff HermannCHEM CYQVB0542-59-75 06:09:000.2[facility] HermannCHEM ESLXS6931-62-15 06:09:00* Test Item Value Reference Range Interpretation Comments A/G Ratio (test code = A/G Ratio) 0.3 1 0.7-1.6 [facility]annCHEM LEPNX9645-58-87 06:09:005.8[facility] HermannCHEM PANEL 2018-08-04 06:09:000.3[facility] HermannCHEM DUOUH4911-54-63 06:09:000.5[facility]annCHEM YCCAR8780-58-06 06:09:0077[facility]annCHEM NSKMY8543-17-09 06:09:0059[facility]annCHEM GMDMM0433-16-32 06:09:0023[facility] HermannCHEM CIFTK2714-35-63 06:09:001.9[facility] HermannCHEM UVUBI4649-69-69 06:09:007.7 [facility]annCHE[facility] TBSUV9170-13-31 06:09:001.6[facility]annCHEM PANEL 2018-08-04 06:09:94347Pwuwnewu HermannCHEM AIAOR2121-29-06 06:09:36656Jqayspfs HermannCHEM TCUYZ2767-96-46 06:09:007.8[facility] HermannCHEM WVSIX0767-26-58 06:09:0024[facility] HermannCHEM IUPOC5907-69-13 06:09:33313Erlabyvx HermannCHEM SWOOS0688-59-55 06:09:003.3[facility] HermannCHEM PSVDI6332-47-63 06:09:0013 [facility]annCHEM UPKJF0667-27-27 06:09:0099[facility]annCHEM PANEL 2018-08-04 06:09:000.89[facility] HermannCHEM BAFPI7427-59-74 06:09:0013.3[facility] HermannDRUG LOHCWB4146-69-56 06:09:00Negative *NA*(08/04/18 1:09 AM)[facility]annDR[facility] MEDCLH5105-24-46 06:09:00Negative *NA*(08/04/18 1:09 AM)[facility]annDR[facility] ZYWLRG7070-17-81 06:09:00Negative *NA*(08/04/18 1:09 AM)[facility]annDR[facility] WPZYUN4124-31-73 06:09:00Positive *ABN*(08/04/18 1:09 AM)[facility]annDR[facility] XBRONO4164-75-29 06:09:00Negative *NA*(08/04/18 1:09 AM)[facility]annDR[facility] JMPPCP0782-88-22 06:09:00Negative *NA*(08/04/18 1:09 AM)[facility]annDRUG AYJMDU4020-35-69 06:09:00Negative *NA*(08/04/18 1:09 AM)[facility] HermannDRUG QNYQGV4530-71-23 06:09:00See Note (08/04/18 1:09 AM)[facility] NHBYYJTVRB8423-63-21 06:09:009.3[facility] NvjuzcoFWKHPQUEYQ5518-28-14 06:09:001.1 [facility] WmxzmifHATGPAMOXP5986-50-06 06:09:0010.6[facility] HermannHEMATOLOGY 2018-08-04 06:09:001.6[facility] JgqjldaFABBLMRLVY4813-93-65 06:09:001.4[facility] RkazewfKFHNIGTCZM9659-70-73 06:09:000.4[facility] CsjbttiMNUTZZHKPA8431-31-24 06:09:000.4[facility] MqluelaBXQXMSEMWR9588-87-03 06:09:0042.9[facility] VPVIEECARM1713-58-88 06:09:0036.1[facility] DanwfadHORQRKOMRG6290-75-55 06:09:00* Test Item Value Reference Range Interpretation Comments PT (test code = PT) 14.2 s 12.0-14.7 [facility] OxhyfbvDPRVWEZKPY4770-76-48 06:09:00* Test Item Value Reference Range Interpretation Comments INR (test code = INR) 1.12 1 0.85-1.17 [facility] IjqiecyVPJYVGUVVB7405-41-79 06:09:00* Test Item Value Reference Range Interpretation Comments PTT (test code = PTT) 36.4 s 22.9-35.8 [facility] GossxnzYYTIQKXDCR3237-58-21 06:09:008.3[facility] HermannHEMATOLOGY 2018-08-04 06:09:0078[facility] VsrsxcaIYBAZGDBER3913-34-16 06:09:0079.3[facility] YwmcgeqTZGJFZUXVU3856-97-52 06:09:00* Test Item Value Reference Range Interpretation Comments MCH (test code = MCH) 24.9 pg 27.0-31.0 [facility] SfkmlrvQFFUHHGDFZ0844-64-48 06:09:0031.4[facility] HermannHEMATOLOGY 2018-08-04 06:09:0018.5[facility] IkkdxizSYVRTUKVGF6833-32-57 06:09:008.3[facility] ZaohbukNFFOMRXRNV2924-71-17 06:09:003.8[facility] IfqkjxbSYUCYOUBMC7608-57-09 06:09:003.34[facility] YpwgwckNEOMBLCBUK2971-69-47 06:09:0026.5[facility] EPKEGEAQID4837-02-28 06:09:77745Whkuyqaw McmhuusXYFKSIONXW7125-71-38 06:09:00 0.362[facility]annURINE AND NAXXR6606-21-71 06:09:00Large *ABN*(08/04/18 1:09 AM)[facility] AND TQHTC5181-20-55 06:09:00Negative (08/04/18 1:09 AM) [facility] LUKRM9460-06-35 06:09:005[facility]UR[facility] AND HQGNK5968-77-00 06:09:0012[facility]annUR[facility] AND LMNOX2782-16-58 06:09:29970 [facility] LHVOT9050-90-68 06:09:00Negative (08/04/18 1:09 AM) [facility] QZLXC6159-25-72 06:09:00Negative *NA*(08/04/18 1:09 AM) [facility] ORVFA4230-37-66 06:09:00* Test Item Value Reference Range Interpretation Comments UA Spec Grav (test code = UA Spec Grav) 1.013 1 [facility] BUQIZ3937-96-35 06:09:00Clear (08/04/18 1:09 AM) [facility] AZZFM2543-05-95 06:09:00Yellow *NA*(08/04/18 1:09 AM) [facility] HNXUK6489-44-24 06:09:00* Test Item Value Reference Range Interpretation Comments UA pH (test code = UA pH) 6.0 1 5.0-8.0 [facility]annCHEM YZAEZ1216-00-75 08:02:001.7[facility] HermannCHEM PANEL 2018-06-05 08:02:05381Phlqdysl HermannCHEM BQXUK3206-40-80 08:02:003.5[facility] HermannCHEM XGZXV3374-49-14 08:02:0026[facility] HermannCHEM NUCQY6798-10-02 08:02:87540Crbwhtyi HermannCHEM YNQHZ3500-32-67 08:02:007.8[facility] HermannCHEM GCIRC7849-22-21 08:02:000.89[facility] HermannCHEM WWJCI8807-25-26 08:02:89957 [facility]annCHEM KGAGE3827-82-87 08:02:0091[facility] HermannCHEM PANEL 2018-06-05 08:02:0011[facility] HermannCHEM IZJUX8621-90-24 08:02:008.5[facility] ZilkjzfFRHVYYZZUI7264-48-35 08:02:0068[facility] MnknccaLYLZMAFNGD6686-32-63 08:02:009.5[facility] QiuzkpqNTEONETHBY3743-81-56 08:02:0084.3[facility] UHXCYVNOQC4564-42-35 08:02:0029.3[facility] ZcophhfGBROMBCNCO4262-75-38 08:02:00 32.1[facility] RzfjtxgFABTZWBUOP2376-79-23 08:02:0020.5[facility] HermannHEMATOLOGY 2018-06-05 08:02:00* Test Item Value Reference Range Interpretation Comments MCH (test code = MCH) 27.1 pg 27.0-31.0 [facility] DkakaqzAJOKWSQICZ4075-35-25 08:02:009.4[facility] HermannHEMATOLOGY 2018-06-05 08:02:003.0[facility] DjdnitpXORGJFDYEG0532-26-30 08:02:003.48[facility] EzwspmnSFNRYAFWIO7729-25-29 08:02:0056.8[facility] SdqdwrpIIYCPJUOQV8820-50-67 08:02:0018.1[facility] NhgvkfqBWLHLZFMPP3636-12-88 08:02:0017.9[facility] SBYKBNIZUC8125-35-37 08:02:006.5[facility] EpopqraCOIUBEQZPD6761-33-74 08:02:000.7 [facility] HacjbrlJINTHPLBWB3444-27-40 08:02:001.7[facility] HermannHEMATOLOGY 2018-06-05 08:02:000.2[facility] ZmthuzkVXPMABVQYG1489-29-52 08:02:000.5[facility] UmuxmvqXWPUNHUCBN4502-24-15 08:02:000.5[facility] HermannPARATHYROID PROFILE 2018-06-04 22:55:001.06[facility] HermannPARATHYROID YTSRJKA4448-92-47 22:55:00 1.07[facility] HermannCHEM XMXWC4715-24-42 18:00:0069.0[facility] HermannCHEM PANEL 2018-06-04 18:00:21076Izlzqoyv HermannCHEM YCYAC9708-87-11 18:00:008.3[facility] HermannCHEM SHNSB2057-99-30 18:00:0028[facility] HermannCHEM ZJAVB5747-17-91 18:00:006.9[facility] HermannCHEM CEITR4162-40-61 18:00:98341Axetpfqf HermannCHEM UYSIE3018-96-65 18:00:000.83[facility] HermannCHEM SSHBT8731-85-67 18:00:003.3 [facility]annCHEM EDUKG1056-17-23 18:00:78993Wugbxbev HermannCHEM PANEL 2018-06-04 18:00:0011[facility] HermannCHEM FVHRG4707-21-53 18:00:43670Fyppxqdx PfcxxatGDJEVJCHTD4908-51-73 18:00:008.8[facility] IhgbhfmSPCXYNDOYF2994-43-08 18:00:0033.5[facility] MvicxuvWPPOVHGYXF8740-28-39 18:00:0026.4[facility] TVACTDZDKH9969-82-71 18:00:0081.8[facility] QyrmjckUSGGSEBIEF2790-14-63 18:00:00 19.8[facility] XaxddyrCDKUTJRRFR2671-77-66 18:00:00* Test Item Value Reference Range Interpretation Comments MCH (test code = MCH) 27.4 pg 27.0-31.0 [facility] WrpasysNQJNNJBAQX8917-93-44 18:00:0051[facility] HermannHEMATOLOGY 2018-06-04 18:00:002.3[facility] LtdthmbLKUBFKSNMJ8457-70-48 18:00:003.23[facility] NzltrhpQZHOCCKASK6675-14-23 18:00:009.1[facility] LzgkclvVEUQAEBMPI1273-62-77 18:00:0015.2[facility] CulcutcZLFCWRNLCX7184-66-16 18:00:001.3[facility] [place] PDSTRWXWJU3628-59-91 18:00:000.5[facility] OxerasyJZHVVDSFKD4482-91-06 18:00:006.1 [facility] YxlsikeTFHISYLBEZ0977-63-45 18:00:000.9[facility] HermannHEMATOLOGY 2018-06-04 18:00:000.1[facility] VhnmfcmKNONBQJOGD7074-56-19 18:00:000.3[facility] MbrunsyFENXQPIIPG6069-68-07 18:00:0019.8[facility] TpwlcgyGWLNGUWCNB2866-25-53 18:00:0058.0[facility] HermannBODY BTAMJX3029-84-49 17:05:00Ascites *NA*(06/04/18 12:05 PM)[facility] HermannBODY TBANXZ2342-96-92 17:05:000.7[facility] HermannBODY IIYVEW5376-84-69 17:05:00Moderate Cloudy *ABN*(06/04/18 12:05 PM)[facility] BODY WFJFSN2013-36-80 17:05:5481807Vhiuacdk HermannBODY MVBMRE2102-81-46 17:05:00Red *ABN*(06/04/18 12:05 PM)[facility] ZFFQCS4604-64-60 17:05:58543[place] HermannBODY HNAVNJ3253-33-91 17:05:00Ascites (06/04/18 12:05 PM)[facility] SVHDQB9748-82-25 17:05:0019[facility] FLUIDS 2018-06-04 17:05:000[facility]annB[facility] HXBCJX3871-86-18 17:05:0081[facility]ann[facility] KYWQDD2048-37-26 17:05:83592Xjwtfnwp HermannBODY CMAIHL8356-63-38 17:05:00Ascites *NA*(06/04/18 12:05 PM)[facility] JYXRHL1186-67-93 17:05:00Ascites *NA*(06/04/18 12:05 PM)[facility] ZEXHXI3089-94-61 17:05:002.9[facility]annCHEM LZAQP2538-17-90 19:58:58330.0[facility] [place] [facility] CHEM RCLFW6777-59-43 19:58:0073[facility]annCHEM NEPED9689-82-10 19:58:0029 [facility]annCHE[facility] TBXCR1005-49-74 19:58:24860Pbujrkmw HermannCHEM PANEL 2018-06-03 19:58:007.1[facility]annCHEM WHUYC5612-25-37 19:58:003.6[facility]annCHEM UKBWQ5213-59-69 19:58:26047Xqaliscj HermannCHEM ICLTT1492-59-64 19:58:40489Cvwuccgs HermannCHEM TNTEY1759-07-19 19:58:0010[facility]annCHEM VAOCE1797-22-58 19:58:001.18[facility]annCHEM BDMVD0309-00-33 19:58:008.6 [facility] CwwlgemAFPYQPSAYA4265-98-68 19:58:009.4[facility] HermannHEMATOLOGY 2018-06-03 19:58:0028.1[facility] LyeylrtLMNNAKCMPS7457-88-34 19:58:0082.2[facility] AyokbfbJWOBZEVPKT5528-70-47 19:58:00* Test Item Value Reference Range Interpretation Comments MCH (test code = MCH) 27.5 pg 27.0-31.0 [facility] MmqctkuDFXMUMRWUB0452-70-31 19:58:0033.4[facility] HermannHEMATOLOGY 2018-06-03 19:58:0019.9[facility] XyxwkyvXHFBGEUNIV0311-06-78 19:58:003.2[facility] NbeleswKUDMGHEGIG8397-07-60 19:58:003.42[facility] AphdcstRXOBPICMYG5144-60-98 19:58:0059[facility] CvwnubmSSHFEWRVKN9717-88-29 19:58:008.7[facility] [place] ENPPLFKAVJ8638-92-81 19:58:002.0[facility] HhcudxaHAWJPUSKCN1760-45-04 19:58:000.5 [facility] WomuqhgSYQXAJNNVU5621-62-44 19:58:000.4[facility] HermannHEMATOLOGY 2018-06-03 19:58:000.2[facility] RvmjbilLKUDAAEHVM7788-02-71 19:58:000.9[facility] CqiaswwMKKPDIMUXI9966-01-20 19:58:0013.5[facility] AtqehpgMIJQNLHXMK4700-81-73 19:58:006.3[facility] DxiyxxyXVXBWXEYSV3336-73-93 19:58:0064.6[facility] [place] KKHMMEGCAR6300-99-33 19:58:0014.7[facility] XqrvcpjPUCRZYTQGG8969-36-19 19:58:001+ (06/03/18 2:58 PM)[facility] CbnitwtNZBBQBJDIT6435-99-93 19:58:00Rare *ABN*(06/03/18 2:58 PM)[facility] KxhrdnsVPAOVFHZDZ4633-75-51 19:58:001+ *ABN*(06/03/18 2:58 PM)[facility] SdqyxpcCAZXSAVSYR2726-88-07 19:58:00Normal (06/03/18 2:58 PM)[facility] IdwbpveMIVOECHOGU6715-79-49 19:58:00See Note (06/03/18 2:58 PM)[facility] HermannPARATHYROID BCERMGF5640-34-77 19:58:001.00[facility] HermannPARATHYROID HWGTVKQ0744-83-84 19:58:001.00[facility] HermannANEMIA STUDY 2018-06-03 09:54:0057[facility] HermannANEMIA CFULE8630-50-07 09:54:0044[facility] HermannANEMIA GVITG3432-47-90 09:54:0014[facility] HermannANEMIA OMBFV8553-50-31 09:54:33274Whyhslai HermannANEMIA CXLKV8530-93-65 09:54:79551Yrsxgqat [place] SPECIAL OAFZXZSYC8593-09-59 09:54:000.09[facility] HermannTUMOR KFYUGAE8009-96-82 09:54:003.3[facility] HermannTUMOR IQUSONN6292-01-19 09:54:005.0[facility] [place] CHEM UQLNG9197-75-04 16:54:98140.0[facility] HermannPARATHYROID GMWIFTM7153-98-37 16:54:000.95[facility] HermannPARATHYROID KKJCIJY8868-03-83 16:54:000.94[facility] HermannCHEM BCAQM2150-06-40 10:44:001.2[facility] HermannCHEM HFWVJ5560-57-48 10:44:002.8[facility] HermannCHEM HHDWD9347-37-04 10:44:00* Test Item Value Reference Range Interpretation Comments B/C Ratio (test code = B/C Ratio) 15 1 6-25 [facility]annCHEM TMYFO9207-07-42 10:44:0064[facility] HermannCHEM PANEL 2018-06-02 10:44:0045[facility] HermannCHEM CQLDR7306-57-19 10:44:001.4[facility] HermannCHEM ZKRAH6806-64-71 10:44:0015[facility]annCHEM BRJLC7855-41-12 10:44:00* Test Item Value Reference Range Interpretation Comments A/G Ratio (test code = A/G Ratio) 0.3 1 0.7-1.6 [facility] VWJQI2987-42-09 10:44:001.7[facility] HermannCHEM PANEL 2018-06-02 10:44:007.3[facility] JFJQQ9421-01-89 10:44:005.6[facility] DczoncwALKULBJJBB1990-33-28 10:44:00* Test Item Value Reference Range Interpretation Comments INR (test code = INR) 1.34 1 0.85-1.17 [facility] YnjwfizIBZNRAGVQS4831-97-47 10:44:00* Test Item Value Reference Range Interpretation Comments PT (test code = PT) 16.3 s 12.0-14.7 [facility] TccdshkOFHFTEHTOS2994-14-23 10:44:00* Test Item Value Reference Range Interpretation Comments PTT (test code = PTT) 36.5 s 22.9-35.8 [facility] OPFHJ6012-11-68 02:13:001.1[facility]annBLOOD BANK EZVJHTM9009-93-05 01:02:00Negative (06/01/18 8:02 PM)[facility] TRMFJ4612-16-81 21:22:00Positive *ABN*(06/01/18 4:22 PM)[facility]annCHE[facility] JEDUS0842-95-18 16:01:0049[facility]annCHEM OZDAD1757-28-94 16:01:0015 [facility] GFQCH6405-30-16 16:01:0074[facility]annCHEM PANEL 2018-06-01 16:01:001.2[facility]ann[facility] DMACN5154-75-19 16:01:001.9[facility]ann[facility] UOQKH9200-84-54 16:01:008.2[facility]ann[facility] FUWTM9039-85-06 16:01:006.3[facility]ann[facility] XFSON8819-47-72 16:01:00* Test Item Value Reference Range Interpretation Comments A/G Ratio (test code = A/G Ratio) 0.3 1 0.7-1.6 [facility] HermannCHEM LBRWS0163-83-33 16:01:00* Test Item Value Reference Range Interpretation Comments B/C Ratio (test code = B/C Ratio) 13 1 6-25 [facility] HermannCHEM TAORL7749-70-25 16:01:71048Zzcoicuw HermannHEMATOLOGY 2018-06-01 16:01:00* Test Item Value Reference Range Interpretation Comments INR (test code = INR) 1.18 1 0.85-1.17 [facility] RhndnijGUWDBCFCIR2300-83-81 16:01:00* Test Item Value Reference Range Interpretation Comments PT (test code = PT) 14.8 s 12.0-14.7 [facility] TywzkbuCGNNLHQLXB6069-33-25 16:01:00* Test Item Value Reference Range Interpretation Comments PTT (test code = PTT) 33.9 s 22.9-35.8 [facility] NVVZB4893-44-08 16:01:007[facility] XFUNS2541-83-05 16:01:00Negative (06/01/18 11:01 AM)[facility] UFGAQ9303-81-65 16:01:0097[facility] UMHVA5988-24-99 16:01:00 Negative (06/01/18 11:01 AM)[facility] QQTMP3600-47-84 16:01:00 Large *ABN*(06/01/18 11:01 AM)[facility] CLBEF5191-63-17 16:01:00 * Test Item Value Reference Range Interpretation Comments UA Spec Grav (test code = UA Spec Grav) 1.020 1 [facility] [id number] 16:01:00Slight *ABN*(06/01/18 11:01 AM) [facility] VOKAD3545-99-98 16:01:00Dark Yellow (06/01/18 11:01 AM) [facility] AVQJE2063-99-61 16:01:00Negative *NA*(06/01/18 11:01 AM)[facility] EFFNP4536-91-56 16:01:00Small *ABN*(06/01/18 11:01 AM)[facility] BHKAA6846-47-12 16:01:00* Test Item Value Reference Range Interpretation Comments UA pH (test code = UA pH) 6.0 1 5.0-8.0 [facility] GPKXI7621-33-40 16:01:00Negative *NA*(06/01/18 11:01 AM)[facility] CT ABD PELVIS W/LUVJ1699-38-61 18:57:00 Name: JOCELIN CORREA [facility] : 1970 Age/S: 48 / M [address] [facility] Unit #: [id number] Loc: [place] [address] Phys: Giovanna Syed MD Acct: [id number] Di s Date: Status: REG ER PHONE #: Exam Date: 05/05/20181826 FAX #: [phone] Reason: abd pain EXAMS: CPT CODE: [id number] CT ABD PELVIS W/CONT 16332 HISTORY: Abdominal pain. COMPARISON: December 18, 2017. [...] 1 Signed Report (CONTINUED) Name: JOCELIN CORREA [facility] : 1970 Age/S: 4 8 / M [address] [facility] Unit #: [id number] Loc: [place] [address] Phys: Sanya Syed MD Acct: [id number] Dis Date: Status: REG ER PHONE #: [phone] Exam Date: 05/05/20181826 FAX #: [phone] Reason: abd pain EXAMS: CPT CODE: [id number] CT ABD PELVIS W/CONT 54927 <Continued> varices. No hydroureteronephrosis. Punctate bilateral 1 [...] (1856) [email or web address] Orig Print D/T: S: 05/05/2018 (9390) CTDI: DLP: PAGE 2 Signed Report BASIC [...] CA) 8.1 mg/dL 8.5-10.1 L HEPATIC FUNCTION [id number] 16:39:00* Test Item Value Reference Range Interpretation [...] reference range due to change in reagent. LKUFAK7976-30-48 16:39:00* Test Item Value Reference Range Interpretation Comments LIPASE (test code = LIP) 72 U/L 73.0-393.0 L CWOGAEIM-V7672-19-23 16:39:00* Test Item Value Reference Range Interpretation Comments TROPONIN-I (test code = TROPI) <0.015 ng/mL 0-0.045 N CUSPWWL1244-30-40 16:39:00* Test Item Value Reference Range Interpretation [...] ANADDITIONAL CHARGE TO THE PATIENT. BASIC METABOLIC [id number] 16:30:00* Test Item Value Reference Range Interpretation [...] code = CA) mg/dL 8.5-10.1 HEPATIC FUNCTION NHRJD3438-20-86 16:30:00* Test Item Value Reference Range Interpretation [...] TOTAL (test code = ALKP) IUnit/L 45-117 IUOJZN6988-86-69 16:30:00* Test Item Value Reference Range Interpretation Comments LIPASE (test code = LIP) U/L 73.0-393.0 YVVSBUDP-T6905-78-23 16:30:00* Test Item Value Reference Range Interpretation Comments TROPONIN-I (test code = TROPI) ng/mL 0-0.045 ZWIGKFQ6528-66-00 16:30:00* Test Item Value Reference Range Interpretation Comments ALCOHOL (test code = ALC) mg/dL 0-3 CBC W/O KSJM6318-58-49 16:10:00* Test Item Value Reference Range Interpretation [...] = MPV) 10.0 fL 6.7-11.0 N CARDIAC QXJIWHW2743-17-33 23:31:00<0.02[facility] HermannCARDIAC XMDBWWQ8308-70-08 23:31:0030[facility] HermannCHEM GOMGB8986-36-44 23:31:93441Eozylwlr HermannCHEM SWKOF1355-05-42 23:31:009[facility]annCHEM QMZJA6774-65-40 23:31:000.78 [facility] MPNLL5035-68-04 23:31:0064[facility] HermannCHEM PANEL 2018-04-18 23:31:000.4[facility]annCHEM EJKLX3801-85-10 23:31:0015[facility]annCHEM CDBBD4134-70-90 23:31:003.7[facility]annCHEM VJCUQ3304-85-90 23:31:39888Inbuhwgy HermannCHEM VRSVB5547-13-29 23:31:79064Zapmnmtc HermannCHEM DDKZD4741-66-88 23:31:003.7[facility]annCHEM NXPMO2862-15-92 23:31:007.5 [facility]ann[facility] XKGJS4847-00-25 23:31:008.7[facility] HermannCHEM PANEL 2018-04-18 23:31:0027[facility] HermannCHEM DUYFP5390-94-33 23:31:0019[facility]annCHEM IAYFT8138-37-93 23:31:0098[facility]annCHEM XQDBT3662-81-55 23:31:00* Test Item Value Reference Range Interpretation Comments B/C Ratio (test code = B/C Ratio) 09-04 [facility]ann[facility] PLEMF2710-15-66 23:31:00* Test Item Value Reference Range Interpretation Comments A/G Ratio (test code = A/G Ratio) 1.0 1 0.7-1.6 [facility] YHVIW5694-09-72 23:31:009.7[facility] HermannCHEM PANEL 2018-04-18 23:31:003.8[facility] MsjiahqRNVLUBDJVLOG1626-11-73 23:31:009.7[facility] EyxdzfjZCYUDCFCZZUP9048-58-20 23:31:00* Test Item Value Reference Range Interpretation Comments B/C Ratio (test code = B/C Ratio) 12 1 6-25 Memorial TcrmkveTWEICADZTZBH2489-81-17 23:31:003.8[facility] HermannELECTROLYTES 2018-04-18 23:31:00* Test Item Value Reference Range Interpretation Comments A/G Ratio (test code = A/G Ratio) 1.0 1 0.7-1.6 [facility] LfidvvkQKVCVCJFPXOJ3879-51-01 23:31:0098[facility] HermannELECTROLYTES 2018-04-18 23:31:009[facility] DmyddrlPYQUZXTCVJNJ3836-11-12 23:31:000.78[facility] TwvoxzgXIEMNHCOMGUH0701-71-87 23:31:97164Umaudtce QjoftxiULJCWUYHQDJE4084-24-60 23:31:003.7[facility] LrpnjyzNFFMXQSDZPYW7793-92-19 23:31:64916Jynbaijw Levon UBENHOPWJTZS6611-75-71 23:31:0027[facility] AcxkwpzWALNFUGELJMH6472-58-42 23:31:00 8.7[facility] GrqcdcuENYFLGVHVYKL6757-68-16 23:31:007.5[facility] [place] MJWXZBKCPZKC6364-50-69 23:31:003.7[facility] UnzsiyaKNDBCSCNXCSH1172-08-00 23:31:0019[facility] FwdfgzhGNLIWSPITDRG9507-31-60 23:31:0015[facility] [place] GFELGQZKLMWA6620-38-17 23:31:0064[facility] JqvjahmFFVXQXMRHNZI5469-56-06 23:31:00 0.4[facility] FipjdmhSMAOOJXRYSGK8261-07-81 23:31:29375Wxeobsjk HermannHEMATOLOGY 2018-04-18 23:31:009.3[facility] QiksqnuKWREWKGYGB0903-03-71 23:31:004.63[facility] CdtrfdeUXXDFTZEHV6797-10-09 23:31:0014.2[facility] TrqtaqtUNOLIDJLXI0339-96-00 23:31:0041.6[facility] XohpdfnOEOTUHGEUJ7622-85-55 23:31:0089.8[facility] XOLRUZVYOQ5776-43-96 23:31:00* Test Item Value Reference Range Interpretation Comments MCH (test code = MCH) 30.5 pg 27.0-31.0 [facility] LikdiygQNLKYQQWWJ4638-85-15 23:31:0034.0[facility] HermannHEMATOLOGY 2018-04-18 23:31:0014.5[facility] TaijopbLSLKOVPKLC6937-74-70 23:31:38226Jjobvvyi OxeuixhRUBUZTJBJS8792-43-62 23:31:009.3[facility] JffhxqaTXBAXSTYDL6154-04-72 23:31:00* Test Item Value Reference Range Interpretation Comments INR (test code = INR) 1.05 1 0.85-1.17 [facility] AsmlmllALUQCYJEEP2461-30-77 23:31:00* Test Item Value Reference Range Interpretation Comments PT (test code = PT) 13.5 s 12.0-14.7 [facility] QhefljyNWTCHVRCFP4236-49-80 23:31:00* Test Item Value Reference Range Interpretation Comments PTT (test code = PTT) 29.1 s 22.9-35.8 [facility] PqyoweuUXJDOVJEAM3814-48-70 23:31:0069.7[facility] HermannHEMATOLOGY 2018-04-18 23:31:0023.9[facility] RoynpqrNOOCVXNMTR7364-23-37 23:31:004.6[facility] GhzuoqpVRASYBYTRH4573-64-97 23:31:001.5[facility] AqkihswPENELBOILW0106-19-34 23:31:000.3[facility] LvibiwsRLCIMEDFCZ8605-36-16 23:31:006.5[facility] RYVKEUWGPS4569-66-77 23:31:002.2[facility] CizkvbqAKKAXAHZGA0363-96-87 23:31:000.4 Memorial MmoqhutWXZQSAAYYP3810-79-39 23:31:000.1[facility]INE AND STOOL 2018-04-18 23:31:00Clear (04/18/18 5:31 PM)[facility] STOOL 2018-04-18 23:31:00* Test Item Value Reference Range Interpretation Comments UA Spec Grav (test code = UA Spec Grav) 1.010 1 [facility] OFUCA9566-48-25 23:31:00* Test Item Value Reference Range Interpretation Comments UA pH (test code = UA pH) 8.0 1 5.0-8.0 [facility] OLXAV6348-33-90 23:31:00Negative (04/18/18 5:31 PM) [facility] MUGUQ0571-36-46 23:31:00Negative *NA*(04/18/18 5:31 PM) [facility] SNBPT8098-66-37 23:31:00Negative *NA*(04/18/18 5:31 PM) [facility] DWEML6054-84-71 23:31:00Negative *NA*(04/18/18 5:31 PM) [facility] RQQDT6865-71-19 23:31:00Negative (04/18/18 5:31 PM) [facility] KLXAF3015-50-16 23:31:00Negative (04/18/18 5:31 PM) [facility] TQHCY4095-12-33 23:31:00Trace *ABN*(04/18/18 5:31 PM) [facility] DFVON1437-94-53 23:31:006[facility] AND YOOXD2561-71-00 23:31:001[facility] AND MBQJF3923-75-20 23:31:006 [facility] HermannBASIC METABOLIC VSWCH1837-66-98 21:06:00* Test Item Value Reference Range Interpretation [...] CA) 8.1 mg/dL 8.5-10.1 L HEPATIC FUNCTION YKDCO1123-13-08 21:06:00* Test Item Value Reference Range Interpretation [...] reference range due to change in reagent. CKDYYPNVL0940-86-38 21:06:00* Test Item Value Reference Range Interpretation Comments MAGNESIUM (test code = MAG) 1.5 mg/dL 1.8-2.4 L VBCLVILC-X1017-61-06 21:06:00* Test Item Value Reference Range Interpretation Comments TROPONIN-I (test code = TROPI) <0.015 ng/mL 0-0.045 N PROTHROMBIN JFKT6989-70-19 20:45:00* Test Item Value Reference Range Interpretation [...] (2.5-3.5) IS PATIENT ON ANTICOAGULANTS? NTHROMBOPLASTIN TIME PGPKMON2488-95-50 20:45:00* Test Item Value Reference Range Interpretation Comments THROMBOPLASTIN TIME PARTIAL (test code = PTT) 40.7 seconds 25.0-36. 5 H IS PATIENT ON ANTICOAGULANTS? NBASIC METABOLIC RXRTI3151-37-22 20:40:00* Test Item Value Reference Range Interpretation [...] code = CA) mg/dL 8.5-10.1 HEPATIC FUNCTION TCLML0529-28-19 20:40:00* Test Item Value Reference Range Interpretation [...] TOTAL (test code = ALKP) IUnit/L 45-117 ACQFTKBEX2512-46-76 20:40:00* Test Item Value Reference Range Interpretation Comments MAGNESIUM (test code = MAG) mg/dL 1.8-2.4 IDCIKCMH-V2791-97-06 20:40:00* Test Item Value Reference Range Interpretation Comments TROPONIN-I (test code = TROPI) ng/mL 0-0.045 CBC W/O GKXZ3974-90-29 20:37:00* Test Item Value Reference Range Interpretation [...] fL 6.7-11.0 N - CT HEAD/BRAIN W/O UNND9857-82-16 20:09:00 Name: JOCELIN CORREA [facility] : 1970 Age/S: 48 / M [address] Unit #: [id number] [place]: [place] [address] Phys: MARYAN ROBERTS MD Acct: [id number] Dis Date: Status: REG ER PHONE #: [phone] Exam Date: 04/18/20182007 FAX #: [phone] Reason: fall, head trauma, blood in ear EXAMS: CPT CODE: [id number] CT HEAD/BRAIN W/O CONT 61154 REASON FOR EXAM: fall, head trauma, blood [...] PAGE 1 Signed Report - US ABDOMEN ZIRUMYZX2004-10-44 07:09:00 Name: CHELLY CORREA [facility] : 1970 Age/S: 48 / M [address] [facility] Unit #: [id number] Loc: [place] [address] Phys: Giovanna Rees MD Acct: [id number] Dis Date: Status: ADM IN PHONE #: [phone] Exam Date: 04/09/201826 FAX #: [phone] Reason: abd pain. evaluate lesion in ascites EXAMS: CPT CODE: [id number] US ABDOMEN COMPLETE 78899 REASON FOR EXAM: abd pain. evaluate lesion [...] Probe: PAGE 1 Signed Report CBC W/AUTO [id number] 06:40:00* Test Item Value Reference Range Interpretation [...] = MDIFF) NO, ONLY SCAN NEEDED DIFFERENTIAL VCBX7283-65-03 06:40:00* Test Item Value Reference Range Interpretation Comments STAIN ACCEPTABILITY (test code = STN ACCEPTABLE) STAIN ACCEPTABLE POLYCHROMASIA (test code = POLC) 2+ ANISOCYTOSIS (test code = ANISO) 2+ MACROCYTOSIS (test code = MACR) 2+ PLATELET ESTIMATE (test code = PLTEST) DECREASED PLATELET MORPHOLOGY (test code = PLTMORPH) NORMAL BASIC METABOLIC SGFLH0624-82-04 06:20:00* Test Item Value Reference Range Interpretation [...] code = CA) 7.8 mg/dL 8.5-10.1 L ZQXSVIQVI4828-60-75 06:20:00* Test Item Value Reference Range Interpretation Comments MAGNESIUM (test code = MAG) 1.4 mg/dL 1.8-2.4 L CBC W/AUTO [id number] 06:17:00* Test Item Value Reference Range Interpretation [...] = MDIFF) NO, ONLY SCAN NEEDED DIFFERENTIAL KPMV1990-35-54 06:17:00* Test Item Value Reference Range Interpretation Comments STAIN ACCEPTABILITY (test code = STN ACCEPTABLE) CABOT RINGS (test code = CAB) MORPHOLOGY COMMENT (test code = MOC) PLATELET ESTIMATE (test code = PLTEST) PLATELET MORPHOLOGY (test code = PLTMORPH) CBC W/AUTO ZSHX9994-08-03 06:17:00* Test Item Value Reference Range Interpretation [...] = MDIFF) NO, ONLY SCAN NEEDED DIFFERENTIAL [id number] 06:17:00* Test Item Value Reference Range Interpretation Comments STAIN ACCEPTABILITY (test code = STN ACCEPTABLE) CABOT RINGS (test code = CAB) MORPHOLOGY COMMENT (test code = MOC) PLATELET ESTIMATE (test code = PLTEST) PLATELET MORPHOLOGY (test code = PLTMORPH) CBC W/AUTO [id number] 06:17:00* Test Item Value Reference Range Interpretation [...] = MDIFF) NO, ONLY SCAN NEEDED DIFFERENTIAL [id number] 06:17:00* Test Item Value Reference Range Interpretation Comments STAIN ACCEPTABILITY (test code = STN ACCEPTABLE) MORPHOLOGY COMMENT (test code = MOC) PLATELET ESTIMATE (test code = PLTEST) PLATELET MORPHOLOGY (test code = PLTMORPH) CBC W/AUTO [id number] 06:17:00* Test Item Value Reference Range Interpretation [...] = MDIFF) NO, ONLY SCAN NEEDED DIFFERENTIAL DMJQ5574-05-01 06:17:00* Test Item Value Reference Range Interpretation Comments STAIN ACCEPTABILITY (test code = STN ACCEPTABLE) CABOT RINGS (test code = CAB) MORPHOLOGY COMMENT (test code = MOC) PLATELET ESTIMATE (test code = PLTEST) PLATELET MORPHOLOGY (test code = PLTMORPH) BASIC METABOLIC [id number] 06:12:00* Test Item Value Reference Range Interpretation [...] CALCIUM (test code = CA) mg/dL 8.5-10.1 CMBJDCVZU7343-17-31 06:12:00* Test Item Value Reference Range Interpretation Comments MAGNESIUM (test code = MAG) mg/dL 1.8-2.4 PROTHROMBIN LTKK5226-04-56 06:12:00* Test Item Value Reference Range Interpretation [...] PATIENT ON ANTICOAGULANTS? N- CT ABD PELVIS W/WORV1759-71-85 13:44:00 Name: CHELLY CORREA [facility] : 1970 Age/S: 48 / M [address] [facility] Unit #: [id number] Loc: [place] [address] Phys: Fransisco Valdez MD Acct: [id number] Di s Date: Status: REG ER PHONE #: Exam Date: 04/09/2018 8140 FAX #: Reason: upper abd pain EXAMS: CPT CODE: [id number] CT ABD PELVIS W/CONT 60508 EXAM: CT of the abdomen a nd [...] Mandujano RT(R),(MR),(CT) CTDI: DLP: Trnscb Date/Time: 04/09/2018 (3005) [email or web address] Orig Print D/T: S: 04/09/2018 (6942) CTDI: DLP: PAGE 1 Signed Report URINALYSIS [id number] 13:28:00* Test Item Value Reference Range Interpretation [...] per LPF NONE-FEW Urine Source? Clean CatchURINALYSIS CTNBRNFP1133-67-42 12:46:00* Test Item Value Reference Range Interpretation [...] HPF 0-5 Urine Source? Clean CatchCBC W/O [id number] 12:33:00* Test Item Value Reference Range Interpretation [...] MPV) 11.6 fL 6.7-11.0 H BASIC METABOLIC [id number] 12:08:00* Test Item Value Reference Range Interpretation [...] CA) 8.2 mg/dL 8.5-10.1 L HEPATIC FUNCTION [id number] 12:08:00* Test Item Value Reference Range Interpretation [...] reference range due to change in reagent. [id number] 12:08:00* Test Item Value Reference Range Interpretation Comments LIPASE (test code = LIP) 114 U/L 73.0-393.0 N HOZUZVJZ-D3895-15-28 12:08:00* Test Item Value Reference Range Interpretation Comments TROPONIN-I (test code = TROPI) <0.015 ng/mL 0-0.045 N BASIC METABOLIC [id number] 11:58:00* Test Item Value Reference Range Interpretation [...] code = CA) mg/dL 8.5-10.1 HEPATIC FUNCTION [id number] 11:58:00* Test Item Value Reference Range Interpretation [...] TOTAL (test code = ALKP) IUnit/L 45-117 [id number] 11:58:00* Test Item Value Reference Range Interpretation Comments LIPASE (test code = LIP) U/L 73.0-393.0 BASIC METABOLIC RREBV5457-29-33 11:52:00* Test Item Value Reference Range Interpretation [...] code = CA) mg/dL 8.5-10.1 HEPATIC FUNCTION [id number] 11:52:00* Test Item Value Reference Range Interpretation [...] TOTAL (test code = ALKP) IUnit/L 45-117 [id number] 11:52:00* Test Item Value Reference Range Interpretation Comments LIPASE (test code = LIP) U/L 73.0-393.0 PROTHROMBIN [id number] 11:42:00* Test Item Value Reference Range Interpretation [...] (2.5-3.5) IS PATIENT ON ANTICOAGULANTS? NTHROMBOPLASTIN TIME WGHJVKB3073-48-43 11:42:00* Test Item Value Reference Range Interpretation Comments THROMBOPLASTIN TIME PARTIAL (test code = PTT) 39.0 seconds 25.0-36. 5 H IS PATIENT ON ANTICOAGULANTS? WENCESLAOJCBDKUS4938-84-26 12:51:00 RUN DATE: 12/25/17 [facility] PAGE 1 RUN TIME: 1251 Specimen Inqui ry RUN USER: INTERFACE PATIENT: JOCELIN CORREA ACCT #: V [id number] LOC: HaleyJESSICA U #: [id number] AGE/SX: 47/M ROOM: [facility] RE12/19/17NATALIYA DR: Giovanna Rees MD : 70 BED: A DIS: 12/21/17 STATUS: DIS IN TLOC: SPEC #: [id number] RECD: 12/19/17 STATUS: SOULalito REQ #: [id number] MELISA: 12/19/[address] [facility] [address]: Yuval Multani MD ENTERED: 10/09/18-1236 SP TYPE: FL ASCITES OTHR DR: Ian Olivas i, MD ORDERED: GROSS COPIES TO: Ian Cook MD [address], [address] [place], [place] [address] Yuval Multani MD [address] [place] [address] PROCEDURES: GROSS (12/25/17- 7) TISSUES: ASCITES FLUID - 20 ML RED CLINICAL HISTORY MELISA ECTION DATE: 12/19/17 HISTORY CIRRHOSIS, HEPATITIS C, PANCYTOPENIA FINAL DIAGNOSIS Ascites fluid for cytology, paracentesis: MESOTHELIAL CELLS, MACROPHAGES, WHITE BLOOD CELLS- PREDOMINATELY LYMPHOCYTES, AND R ED BLOOD CELLS NEGATIVE FOR MALIGNANCY DMW/arin D 95624, 883 05 MACROSCOPIC The specimen consists of 20 mL of red fluid for conc entration and evaluation. A cell block will be prepared. GROSS PERFORM ED AT [facility] CONTINUED ON NEXT PAGE RUN DATE: 12/25/17 [facility] PAGE 2 RUN TIME: 1251 Specimen Inquiry RUN USER: INTERFACE SPEC #: [id number] PATIENT: JOCELIN CORREA #[id number] (Continued)------ ------ MACROSCOPIC (Continued) [address], [place] [address] [phone] MICROSCOPIC MICROSCOPIC PERFOR MED AT [facility] All of the stains, including any controls perfor med, stain appropriately. [facility] [address], P [facility] [place] [address] (P)[phone] PERFORMING SITE Diagnosis perform ed at: [facility], ROSHNI [address] [place] [address] Signed SIGNATURE ON FILE SheehanMireya 12/25/17 1251 END OF REPORT STOMACH 2017-12-22 13:27:00 RUN DATE: 12/22/17 [facility] PAGE 1 RUN TIME: 1327 Specimen Inqui ry RUN USER: INTERFACE PATIENT: JOCELIN CORREA ACCT #: V [id number] LOC: DEON U #: [id number] AGE/SX: 47/M ROOM: [facility] RE12/19/17REG DR: Giovanna Rees MD : 70 BED: A DIS: 12/21/17 STATUS: DIS IN TLOC: SPEC #: [id number] RECD: 12/21/17 STATUS: K[facility] #: [id number] MELISA: 12/20/17- SUBM DR: González Nunez MD ENTERED: 12/21/17-1110 SP TYPE: STOMACH OTHR DR: Ian Olivas i, MD ORDERED: GROSS COPIES TO: González Nunez MD [address] [place] [address] Ian Cook MD [address] [place] [address] PROCEDURES: GROSS (12/22/17-1054 ) TISSUES: [...] STAIN NE GATIVE FOR MALIGNANCY RRB/ D [address], [address] CONTINUED ON NEXT PAGE RUN DATE: 12/22/17 [facility] PAGE 2 RUN TIME: 1327 Specimen Inquiry RUN USER: INTERF MARTIN SPEC # : [id number] PATIENT: SUNNYJOCELIN #[id number] (Cont inued) MACROSCOPIC The specimen is received in formali n, labeled with the patient's name, identified as "gastric", and consists of l lavonnet king biopsy tissue measuring 0.35 cm in aggregate, submitted for H E and G iemsa stains. GROSS PERFORMED AT [facility] [address] [facility] [place] [address] (P)[phone] MICR OSCOPIC MICROSCOPIC PERFORMED AT [facility] All of the stains, including any controls performed, stain appropriately. [facility] [address] [facility] [place] [address] (p)[phone] PERFORM ING SITE Diagnosis performed at: [facility] [address] [place] [phone] --------- --- Signed SIGNATURE ON FILE Elvis Schmid 12/22/17 1327 END OF REP ORT CHEM [id number] 14:13:001.2[facility] LasbvvxJVKXWWGVSX2902-51-46 07:45:001.0[facility] HbfrtgbUDRFRZFGFF5731-45-02 07:45:001.9[facility] TBZMABRGTG6852-59-09 07:45:000.2[facility] OgrrkclMYMMVEZZZB7139-43-70 07:45:000.5 [facility] NabkfixVFTGVZONMR9422-34-17 07:45:000.9[facility] 2017-09-16 07:45:005.5[facility] SljygcdVBVDTQPUQY4367-83-53 07:45:0053.9[facility] TkgpqdeWUPYGRSCXF3807-19-77 07:45:0012.6[facility] EtvetfeWYOQYTZHXK8759-50-19 07:45:0027.1[facility] JqaqqntHEAORUAIQX0475-52-93 07:45:00* Test Item Value Reference Range Interpretation Comments PTT (test code = PTT) 33.3 s 22.9-35.8 [facility] ZoyoldkLDMIJWWMKM9824-37-51 07:45:00* Test Item Value Reference Range Interpretation Comments INR (test code = INR) 1.53 1 0.85-1.17 [facility] CxctbocFWTJSWNQDA0283-45-63 07:45:00* Test Item Value Reference Range Interpretation Comments PT (test code = PT) 18.5 s 12.0-14.7 [facility] EdzgpntACPZKCKJDZ4632-66-12 07:45:0033.1[facility] 2017-09-16 07:45:0029.3[facility] OhrxbulTALNVURFLM0839-54-88 07:45:0097.4[facility] IldhyzsGYRMELHOLR2941-89-85 07:45:00* Test Item Value Reference Range Interpretation Comments MCH (test code = MCH) 32.2 pg 27.0-31.0 [facility] CysrmadFGEYNXAMFT7752-50-64 07:45:0068[facility] 2017-09-16 07:45:0017.5[facility] EnaqekoQQCURQIWFB6546-24-32 07:45:008.2[facility] QazdikfLIYIALSYOR9389-11-27 07:45:003.01[facility] FqbbtkcUBHKEKQAHV8709-75-62 07:45:009.7[facility] WuijjmoBDNLTVBGCP8753-28-10 07:45:003.6[facility] CARDIAC DPLHWGL4687-78-30 07:24:00<1.3[facility] KZUKYKI2219-80-26 07:24:00<1.0[facility] XCZTFBQ0720-34-94 07:24:0079[facility] CARDIAC VSHFBXK4159-10-09 07:24:00<0.02[facility]annCHEM XQKXS2196-97-95 07:24:006.0[facility]annCHEM GFQRC0617-70-84 07:24:00* Test Item Value Reference Range Interpretation Comments B/C Ratio (test code = B/C Ratio) 16 1 6-25 [facility]annCHEM SSDOK3560-82-14 07:24:00* Test Item Value Reference Range Interpretation Comments A/G Ratio (test code = A/G Ratio) 0.3 1 0.7-1.6 [facility] CSBEH7768-14-60 07:24:0099[facility]annCHEM PANEL 2017-09-16 07:24:0086[facility]CHE[facility] XKKQD8712-67-72 07:24:001.5[facility]annCHEM USTFT1342-34-81 07:24:007.7[facility]annCHEM TDDYB8130-20-58 07:24:05801Wqqtaknf HermannCHEM YKSKT8255-21-30 07:24:05595Cmjioxqw HermannCHEM QMKQD0805-01-89 07:24:004.7[facility]annCHE[facility] PYQVD9294-79-47 07:24:008.3 [facility] UBJJN7106-53-55 07:24:0026[facility]annCHEM PANEL 2017-09-16 07:24:007.8[facility]CHE[facility] KWQQL1219-73-57 07:24:0033[facility]annCHE[facility] AMNAV3354-38-49 07:24:001.8[facility]annCHE[facility] UTJXD9122-39-52 07:24:000.82[facility]annCHEM DZNTC8125-19-61 07:24:0013[facility]annCHEM FLFCI1495-62-90 07:24:60843Mvdwehyr HermannCHEM WZWFS3320-31-11 07:24:0095 [facility] RKDKT2834-58-53 07:24:90904Vzxltfbo HermannURINE AND STOOL 2017-09-16 07:24:004.0[facility] DHDZK2120-73-09 07:24:00Negative (09/16/17 2:24 AM)[facility] EJXEV2579-15-44 07:24:00Negative (09/16/17 2:24 AM)[facility] FKNFW4485-19-22 07:24:003[facility] VPSJE9223-42-16 07:24:0069[facility] STOOL 2017-09-16 07:24:00Slight *ABN*(09/16/17 2:24 AM)[facility] STOOL 2017-09-16 07:24:00* Test Item Value Reference Range Interpretation Comments UA Spec Grav (test code = UA Spec Grav) 1.019 1 [facility] JMHYT8788-42-09 07:24:00* Test Item Value Reference Range Interpretation Comments UA pH (test code = UA pH) 6.0 1 5.0-8.0 [facility] OZGUW5343-67-55 07:24:00Moderate *ABN*(09/16/17 2:24 AM) [facility] UPLEX2530-87-40 07:24:00Negative *NA*(09/16/17 2:24 AM) [facility] Axvabot8118-55-25 16:48:00* Test Item Value Reference Range Interpretation Comments Blood Culture (test code = 81278679) NO GROWTH AFTER 5 DAYS, FINAL REPORT [facility] A IgM Culegbpp3965-29-15 10:18:00* Test Item Value Reference Range Interpretation Comments Hepatitis A IgM Antibody (test code = 14798-4) Negative [facility] B Surface Lapjckc2099-97-91 10:18:00* Test Item Value Reference Range Interpretation Comments Hepatitis B Surface Antigen (test code = 5196-1) Negative [facility] B Core IgM Hqfgskcf9496-90-46 10:18:00* Test Item Value Reference Range Interpretation Comments Hepatitis B Core IgM Antibody (test code = 84964-8) Negative [facility] C Mgfazhrh4014-80-76 10:18:00* Test Item Value Reference Range Interpretation Comments Hepatitis C Antibody (test code = 37159-9) 11.0- Reference Range: 0.0 - 0.9 s/co ratioNegative: < 0.8Indeterminate: 0.8 - 0.9Positive: > 0.9 The CDC recommends that a positive HCV antibody result be followed up with a HCV Nucleic Acid Amplification test (132237).Results called to SERG LINTON RN at 1017 on 06/20/17 by Michael Whalen. RB [place].Testing performed by:[address] [id number]: Lopez [facility] CenterPlatelet Ivwjmqbj0533-46-15 10:18:00* Test Item Value Reference Range Interpretation Comments Platelet Estimate (test code = 03590-0) SLIGHTLY DECREASED [facility] CenterPlatelet Morphology Bqefuyq2686-06-69 10:18:00* Test Item Value Reference Range Interpretation Comments Platelet Morphology Comment (test code = 29999-2) FEW GIANT [facility] CenterHypochromasia2018-04-09 10:18:00* Test Item Value Reference Range Interpretation Comments Hypochromasia (test code = 728-6) MODERATE [facility] CenterPoikilocytosis2018-04-09 10:18:00* Test Item Value Reference Range Interpretation Comments Poikilocytosis (test code = 779-9) SLIGHT [facility] CenterAnisocytosis2018-04-09 10:18:00* Test Item Value Reference Range Interpretation Comments Anisocytosis (test code = 702-1) SLIG [facility] CenterRed Cell Morphology Dzmuezr5513-12-55 10:18:00* Test Item Value Reference Range Interpretation Comments Red Cell Morphology Comment (test code = 6742-1) NORMAL [facility] CenterProthrombin Nwyb7549-29-49 08:34:00* Test Item Value Reference Range Interpretation [...] Activated Partial Thromboplast Time (test code = 86444-2) 37.5 23.8-35.5 H [facility] CenterTotal Grauuayrr1280-44-82 08:09:00* Test Item Value Reference Range Interpretation Comments Total Bilirubin (test code = 1975-2) 2.0 0.2-1.2 H [facility]odium Fxxgr9899-22-92 08:01:00* Test Item Value Reference Range Interpretation Comments Sodium Level (test code = 2951-2) 131 136-145 L [facility] CenterPotassium Bbgzx2238-02-24 08:01:00* Test Item Value Reference Range Interpretation Comments Potassium Level (test code = 2823-3) 3.5 3.5-5.1 [facility] CenterChloride Vsuwy5959-07-12 08:01:00* Test Item Value Reference Range Interpretation Comments Chloride Level (test code = 2075-0) 102 98-107 [facility] CenterCarbon Dioxide Qyzaj7006-65-55 08:01:00* Test Item Value Reference Range Interpretation Comments Carbon Dioxide Level (test code = 2028-9) 27 22-29 [facility] CenterAnion Mxy2930-35-76 08:01:00* Test Item Value Reference Range Interpretation Comments Anion Gap (test code = 79092-0) 5.5 8-16 L [facility] CenterBlood Urea Ttdlthph6198-48-83 08:01:00* Test Item Value Reference Range Interpretation Comments Blood Urea Nitrogen (test code = 3094-0) 8 7-26 [facility] CenterCreatinine2018-04-09 08:01:00* Test Item Value Reference Range Interpretation Comments Creatinine (test code = 2160-0) 0.85 0.72-1.25 [facility] CenterBUN/Creatinine Xxthy8764-76-72 08:01:00* Test Item Value Reference Range Interpretation Comments BUN/Creatinine Ratio (test code = 3097-3) 9 6-25 [facility] CenterEstimat Glomerular Filtration Rate 2017-06-19 08:01:00* Test Item Value Reference Range Interpretation Comments Estimat Glomerular Filtration Rate (test code = 25544-0) 60- >60 Ranges were taken from the National Kidney Disease Education Program and the [employer] literature.Reference ranges:60 or greater: Falqio01-33 ( for 3 consecutive months): Chronic kidney disease 15 or less: Kidney failureChildress Regional Medical CenterGlucose Aaznf8362-98-44 08:01:00* Test Item Value Reference Range Interpretation Comments Glucose Level (test code = AGP4646) 121 74-118 H [facility] CenterCalcium Btelz5542-58-41 08:01:00* Test Item Value Reference Range Interpretation Comments Calcium Level (test code = 11205-9) 7.3 8.4-10.2 L [facility] CenterAspartate Amino Transf (AST/SGOT) 2017-06-19 08:01:00* Test Item Value Reference Range Interpretation Comments Aspartate Amino Transf (AST/SGOT) (test code = Aspartate Amino Transf (AST/SGOT)) 51 5-34 H [facility] CenterAlanine Aminotransferase (ALT/SGPT) 2017-06-19 08:01:00* Test Item Value Reference Range Interpretation Comments Alanine Aminotransferase (ALT/SGPT) (test code = 1742-6) 17 0-55 [facility] CenterTotal Bdvcbtt4169-16-67 08:01:00* Test Item Value Reference Range Interpretation Comments Total Protein (test code = 2885-2) 6.5 6.5-8.1 [facility] CenterAlbumin2018-04-09 08:01:00* Test Item Value Reference Range Interpretation Comments Albumin (test code = 1751-7) 1.6 3.5-5.0 L [facility] CenterGlobulin2018-04-09 08:01:00* Test Item Value Reference Range Interpretation Comments Globulin (test code = 02652-2) 4.9 2.3-3.5 H [facility] CenterAlbumin/Globulin Hhqwx5315-63-29 08:01:00 * Test Item Value Reference Range Interpretation Comments Albumin/Globulin Ratio (test code = 1759-0) 0.3 0.8-2.0 L [facility] CenterAlkaline Rxrjemiffay2631-46-83 08:01:00* Test Item Value Reference Range Interpretation Comments Alkaline Phosphatase (test code = 6768-6) 47 40-150 [facility] CenterWhite Blood Yaxmc7027-34-64 07:48:00* Test Item Value Reference Range Interpretation Comments White Blood Count (test code = 6690-2) 2.52 4.8-10.8 L [facility] CenterRed Blood Qwuqf3267-02-36 07:48:00* Test Item Value Reference Range Interpretation Comments Red Blood Count (test code = 789-8) 2.78 4.3-5.7 L [facility] CenterHemoglobin2018-04-09 07:48:00* Test Item Value Reference Range Interpretation Comments Hemoglobin (test code = 03499-4) 9.3 14.0-18.0 L [facility] CenterHematocrit2018-04-09 07:48:00* Test Item Value Reference Range Interpretation Comments Hematocrit (test code = 4544-3) 27.3 38.2-49.6 L [facility] CenterMean Corpuscular Minvpc4138-79-35 07:48:00* Test Item Value Reference Range Interpretation Comments Mean Corpuscular Volume (test code = 787-2) 98.2 81-99 [facility] CenterMean Corpuscular Jubvvulpcu2253-14-03 07:48:00* Test Item Value Reference Range Interpretation Comments Mean Corpuscular Hemoglobin (test code = 785-6) 33.5 28-32 H [facility] CenterMean Corpuscular Hemoglobin Concent 2017-06-19 07:48:00* Test Item Value Reference Range Interpretation Comments Mean Corpuscular Hemoglobin Concent (test code = 786-4) 34.1 31-35 [facility] CenterRed Cell Distribution Mhcks4375-54-31 07:48:00* Test Item Value Reference Range Interpretation Comments Red Cell Distribution Width (test code = 81042-9) 15.1 11.7 -14.4 H [facility] CenterPlatelet Eqjnm7783-84-88 07:48:00* Test Item Value Reference Range Interpretation Comments Platelet Count (test code = 777-3) 46 140-360 LL Results called to SOILA JACKRN at 0748 on 06/19/17 by Michael Whalen. RB [place].[facility] CenterNeutrophils (%) (Auto)2017-06-19 07:48:00* Test Item Value Reference Range Interpretation Comments Neutrophils (%) (Auto) (test code = 72934-0) 48.0 38.7-80.0 [facility] CenterLymphocytes (%) [...] Comments Lymphocytes # (Auto) (test code = 84581-7) 0.7 1.0-3.2 L [facility] CenterMonocytes [...] Comments Neutrophils % (Manual) (test code = 82367-7) 73 40-74 [facility] CenterLymphocytes % [...] Comments Basophils % (Manual) (test code = 15808-6) 1 0-1.5 [facility] CenterMetamyelocytes %2017-06-16 09:31:00* Test Item Value Reference Range Interpretation Comments Metamyelocytes % (test code = 740-1) 2 0-0 H [facility] CenterVitamin B12 Nksbn1947-16-64 07:59:00* Test Item Value Reference Range Interpretation Comments Vitamin B12 Level (test code = 48298-9) 887 213-816 H [facility] CenterFolate2018-04-06 07:59:00* Test Item Value Reference Range Interpretation Comments Folate (test code = 2284-8) 10.3 7.0-15.4 [facility] CenterFerritin2018-04-06 07:39:00* Test Item Value Reference Range Interpretation Comments Ferritin (test code = 2276-4) 220.60 21.81-274.66 [facility] CenterIron Zxlkt8457-07-54 07:25:00* Test Item Value Reference Range Interpretation Comments Iron Level (test code = 2498-4) 102 65-175 [facility] CenterTotal Iron Binding Omcyrilb9943-30-29 07:25:00* Test Item Value Reference Range Interpretation Comments Total Iron Binding Capacity (test code = 2500-7) 274 261-4 78 [facility] CenterPercent Iron Vyhdhxzcww7206-90-65 07:25:00* Test Item Value Reference Range Interpretation Comments Percent Iron Saturation (test code = 2502-3) 37 15-50 [facility] CenterTransferrin2018-04-06 07:25:00* Test Item Value Reference Range Interpretation Comments Transferrin (test code = 3034-6) 196 174-364 [facility] CenterDirect Zvvmuigcr2405-97-05 07:22:00* Test Item Value Reference Range Interpretation Comments Direct Bilirubin (test code = 74322-3) 2.0 0.0-0.5 H [facility] CenterAmylase Sibse4475-07-31 07:22:00* Test Item Value Reference Range Interpretation Comments Amylase Level (test code = 1798-8) 65 25-125 [facility] CenterLipase2018-04-06 07:22:00* Test Item Value Reference Range Interpretation Comments Lipase (test code = 3040-3) 16 8-78 [facility] CenterPercent Reticulocyte Tylna7369-85-03 07:04:00* Test Item Value Reference Range Interpretation Comments Percent Reticulocyte Count (test code = 46170-3) 2.6 0.8-2 .2 H [facility] CenterAmmonia2018-04-05 21:00:00* Test Item Value Reference Range Interpretation Comments Ammonia (test code = 50546-2) 58 31-123 [facility] CenterBody Fluid Hpozqwqntwv1784-70-54 18:25:00 * Test Item Value Reference Range Interpretation Comments Body Fluid Neutrophils (test code = 98405-6) 11 MESOTHELIAL CELLS SEEN, RESULTED "OTHER"[facility] Fluid Ctuicuklbyy0375-27-23 18:25:00* Test Item Value Reference Range Interpretation Comments Body Fluid Lymphocytes (test code = 80274778) 15 [facility] CenterBody Fluid Lpyhlevqy9588-24-44 18:25:00* Test Item Value Reference Range Interpretation Comments Body Fluid Monocytes (test code = 33329-8) 64 [facility] CenterBody Fluid Other Gjchs8471-60-35 18:25:00 * Test Item Value Reference Range Interpretation Comments Body Fluid Other Cells (test code = 932586658) 10 [facility] CenterBody Fluid Total Cells Gmnvbdb3882-69-14 18:25:00* Test Item Value Reference Range Interpretation Comments Body Fluid Total Cells Counted (test code = 60882-2) 100 [facility] CenterBody Fluid Uyeyvpa3567-16-19 18:25:00* Test Item Value Reference Range Interpretation Comments Body Fluid Comment (test code = Body Fluid Comment) SEE COMMENT [facility]ertool Occult Iyany3027-59-02 18:21:00* Test Item Value Reference Range Interpretation Comments Stool Occult Blood (test code = 2335-8) POSITIVE NEGATIVE H [facility] CenterBody Fluid Lhnb1179-16-89 17:33:00* Test Item Value Reference Range Interpretation Comments Body Fluid Type (test code = 26352-9) PERITONEAL RIGHT ABD FLUIDChildress Regional Medical CenterBody Fluid Njppf1291-12-58 17:33:00* Test Item Value Reference Range Interpretation Comments Body Fluid Color (test code = 6824-7) YELLOW [facility] Fluid Wlcakjkzfb6642-31-57 17:33:00 * Test Item Value Reference Range Interpretation Comments Body Fluid Appearance (test code = 9335-1) CLOUDY [facility] CenterBody Fluid EHG4531-91-00 17:33:00* Test Item Value Reference Range Interpretation Comments Body Fluid WBC (test code = 6743-9) 163 [facility] CenterBody Fluid SEV5673-94-04 17:33:00* Test Item Value Reference Range Interpretation Comments Body Fluid RBC (test code = 6741-3) 1519 [facility] CenterUrine KOK8699-06-59 16:17:00* Test Item Value Reference Range Interpretation Comments Urine WBC (test code = 5821-4) NONE 0-5 [facility] CenterUrine DLE8922-36-03 16:17:00* Test Item Value Reference Range Interpretation Comments Urine RBC (test code = 52159-6) 11-20 0-5 H [facility] CenterUrine Kfhfbdpd4198-65-72 16:17:00* Test Item Value Reference Range Interpretation Comments Urine Bacteria (test code = 44513-1) NONE NONE [facility] CenterUrine Epithelial Qweyr9866-92-38 16:17:00 * Test Item Value Reference Range Interpretation Comments Urine Epithelial Cells (test code = 85938-2) NONE NONE [facility] CenterUrine Wjetl0077-23-36 15:54:00* Test Item Value Reference Range Interpretation Comments Urine Color (test code = 5778-6) ORANGE YELLOW H [facility] CenterUrine Wngwtuw7241-46-82 15:54:00* Test Item Value Reference Range Interpretation Comments Urine Clarity (test code = 27959-4) CLOUDY CLEAR H [facility] CenterUrine Specific Lymmksc3529-21-41 15:54:00 * Test Item Value Reference Range Interpretation Comments Urine Specific [place] (test code = 5811-5) 1.010 1.010-1.02 5 [facility] CenterUrine lF8819-01-09 15:54:00* Test Item Value Reference Range Interpretation Comments Urine pH (test code = 75607-8) 7 5-7 [facility] Leukocyte Macxnkfd8323-32-15 15:54:00* Test Item Value Reference Range Interpretation Comments Urine Leukocyte Esterase (test code = 5799-2) NEGATIVE NEGATIVE [facility] Dmruvlk6313-70-48 15:54:00* Test Item Value Reference Range Interpretation Comments Urine Nitrite (test code = 72614-4) NEGATIVE NEGATIVE [facility] Rtrkbax0915-03-04 15:54:00* Test Item Value Reference Range Interpretation Comments Urine Protein (test code = 5804-0) 1+ NEGATIVE H [facility] Glucose (UA)2017-06-15 15:54:00* Test Item Value Reference Range Interpretation Comments Urine Glucose (UA) (test code = 2349-9) NEGATIVE NEGATIVE [facility] Vloraaa2214-69-31 15:54:00* Test Item Value Reference Range Interpretation Comments Urine Ketones (test code = 04638-8) TRACE NEGATIVE H [facility] Egvgyaxpofvw9177-94-95 15:54:00* Test Item Value Reference Range Interpretation Comments Urine Urobilinogen (test code = 49506-7) 8 0.2-1 H [facility] Zwfuevhbk5252-76-65 15:54:00* Test Item Value Reference Range Interpretation Comments Urine Bilirubin (test code = 1978-6) 2+ NEGATIVE H Confirmatory test currently unavailable. False positive results may occur.[facility] Ivult4347-53-36 15:54:00* Test Item Value Reference Range Interpretation Comments Urine Blood (test code = 89079-3) 2+ NEGATIVE H [facility] [address] [address] Patient Name: JOCELIN CORREA MR #: [id number] : 1970 Age/Sex: 47/M Req #: [id number] Adm Physician: ROME HOPPER MD Ordered by: AMARA GUTHRIE MD Report #: [id number] Location: MED/SURG Room/Bed: [facility] Procedure: [id number] US/US LIVER Exam Date: 06/20/17 Exam Time: [...] TO: AMARA GUTHRIE MD CT ABDOMEN/PELVIS [address] [place] [address] Patient Name: JOCELIN CORREA MR #: [id number] : 1970 Age/Sex: 47/M Req #: [id number] Adm Physician: Ordered by: EZ MANDUJANO MD Report #: [id number] Location: ER Room/Bed: Procedure: [id number] CT/CT ABDOMEN/PELVIS W Exam Date: Exam Time: REPORT STATUS: Signed [place] OCEDURE: CT ABDOMEN AND PELVIS WITH CONTRAST [...] 2. Large volume ascites. 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 3. Splenomegaly likely related to portal hypertens ion. Dictated by: Deandre Gan M.D. on 06/15/2017 at 14:50 Electronically approved by: Deandre Gan M.D. on 06/15/2017 at 14:50 Dictated By: DEANDRE GAN MD 1450 Transcribed By: MARCO on 06/15/17 1450 COPY TO: EZ MANDUJANO MD US GUIDED PARACENTESIS [place] [address] Patient Name: JOCELIN CORREA MR #: [id number] : 1970 Age/Sex: 47/M Req #: [id number] Adm Physician: ROME HOPPER MD Ordered by: JESUS MARKS HARP REPAIRER Report #: [id number] Location: [facility] Room/Bed: [place] [address] Procedure: [id number] US /US GUIDED PARACENTESIS Exam Date: 06/15/17 [...]
[2020-01-20] MEDS ORDERED: ONDANSETRON HCL INJ 2MG/ML 2ML 2 MG/ML VIAL IV STA (09:05)
[2020-01-20] MEDS ORDERED: SODIUM CHLORIDE 0.9% 1000ML 1,000 ML IV STA (09:05)
[2020-01-20 09:08] LABS: BASOPHILS % 0.9 % (0.0-1.0); EOSINOPHILS # (AUTO) 0.3 (0.0-0.4); EOSINOPHILS % 11.8 % (0.0-6.0); HEMATOCRIT 31.6 % (38.2-49.6); HEMOGLOBIN 10.4 g/dL (14.0-18.0); LYMPHOCYTES # (AUTO) 0.7 (1.0-3.2); LYMPHOCYTES % 29.4 % (18.0-39.1); MEAN CORPUSCULAR HEMOGLOBIN 30.1 pg (28-32); MEAN CORPUSCULAR HGB CONC 32.9 g/dL (31-35); MEAN CORPUSCULAR VOLUME 91.6 fL (81-99); MONOCYTES # (AUTO) 0.2 (0.2-0.8); MONOCYTES % 9.6 % (4.4-11.3); NEUTROPHILS # (AUTO) 1.1 (2.1-6.9); NEUTROPHILS % 48.3 % (38.7-80.0); RED BLOOD COUNT 3.45 x10e6/uL (4.3-5.7)
[2020-01-20] MEDS ORDERED: DEXAMETHASONE SOD PHOS 10 MG/1 ML VIAL IV ONE (09:15)
[2020-01-20] MEDS ORDERED: MORPHINE SULFATE INJ 4 MG/ML INJ 1ML IV PRN (09:15)
[2020-01-20 09:22] LABS: PLATELET COUNT 30 x10e3/uL (140-360)
[2020-01-20 09:29] LABS: ALANINE AMINOTRANSFERASE 19 IU/L (0-55); ALBUMIN 2.6 g/dL (3.5-5.0); ALBUMIN/GLOBULIN RATIO 0.5 (0.8-2.0); ALKALINE PHOSPHATASE 77 IU/L (40-150); ANION GAP 12.3 mmol/L (8-16); BLOOD UREA NITROGEN 11 mg/dL (7-26); BUN/CREATININE RATIO 11 (6-25); CALCIUM 8.5 mg/dL (8.4-10.2); CARBON DIOXIDE 25 mmol/L (22-29); CHLORIDE 103 mmol/L (98-107); CREATINE KINASE 93 IU/L (30-200); CREATININE, SERUM 1.03 mg/dL (0.72-1.25); EST GLOMERULAR FILTRATION RATE > 60 ML/MIN (60-); GLUCOSE 98 mg/dL (74-118); POTASSIUM 3.3 mmol/L (3.5-5.1); SODIUM 137 mmol/L (136-145)
--- NOTE | 2020-01-20 09:30 | Emergency Department Note ---
History of Present Illnes History of Present Illness Chief Complaint: General Medicine Complaints History of Present Illness This is a 49 year old male . Chief Complaint Comment Patient in from home with complaints of fever, urinating blood, leg swelling, sore throat, headache and difficulty swallowing as well as abdominal pain that started about 3 days ago. Patient denies being tested for covid in the past. Reports subjective fever but no thermometer at home. Reports nausea and vomiting, no diarrhea. Patient has a raspy voice and states that is not normal for him. Patient states his girlfriend had a sore throat and was told it strep throat. Historian: Patient Arrival Mode: Car Past Medical/Family History Physician Review I have reviewed the patient's past medical and family history. Any updates have been documented here. Past Medical History Recent Fever: Yes Clinical Suspicion of Infectio: No New/Unexplained Change in Ment: No Past Medical History: Hypertension, Hepatitis C, Liver Disease Other Medical History: ETOH abuse, ascites, skin problems Other Surgery: UNKNOWN - SCAR ON ABDOMEN - HE SAYS "THEY OPERATED ON MY STOMACH" Social History Smoking Cessation: Never Smoker Counseling Performed: No Alcohol Use: None Any Illegal Drug Use: No Other Any Pre-Existing Lines (PICC,: No Physical Exam Related Data Allergies: Coded Allergies: No Known Allergies (Unverified , 10/01/19) Triage Vital Signs Vital Signs Date Time Temp Pulse Resp B/P (MAP) Pulse Ox O2 Delivery O2 Flow Rate FiO2 01/20/20 08:26 98.8 111 27 126/80 100 Room Air Physical Exam CONSTITUTIONAL HENT EYES NECK PULMONARY CARDIOVASCULAR GASTROINTESTINAL GENITOURINARY SKIN MUSCULOSKELETAL NEUROLOGICAL PSYCHOLOGICAL Results Laboratory Result Diagram: 01/20/2031 Laboratory Laboratory Tests Test 01/20/20 09:24 01/20/20 08:31 White Blood Count 2.28 x10e3/uL (4.8-10.8) Red Blood Count 3.45 x10e6/uL (4.3-5.7) Hemoglobin 10.4 g/dL (14.0-18.0) Hematocrit 31.6 % (38.2-49.6) Mean Corpuscular Volume 91.6 fL (81-99) Mean Corpuscular Hemoglobin 30.1 pg (28-32) Mean Corpuscular Hemoglobin Concent 32.9 g/dL (31-35) Red Cell Distribution Width 17.0 % (11.7-14.4) Platelet Count 30 x10e3/uL (140-360) Neutrophils (%) (Auto) 48.3 % (38.7-80.0) Lymphocytes (%) (Auto) 29.4 % (18.0-39.1) Monocytes (%) (Auto) 9.6 % (4.4-11.3) Eosinophils (%) (Auto) 11.8 % (0.0-6.0) Basophils (%) (Auto) 0.9 % (0.0-1.0) Neutrophils # (Auto) 1.1 (2.1-6.9) Lymphocytes # (Auto) 0.7 (1.0-3.2) Monocytes # (Auto) 0.2 (0.2-0.8) Eosinophils # (Auto) 0.3 (0.0-0.4) Basophils # (Auto) 0.0 (0.0-0.1) Absolute Immature Granulocyte (auto 0 x10e3/uL (0-0.1) Assessment & Plan Last Vital Signs Date Time Temp Pulse Resp B/P (MAP) Pulse Ox O2 Delivery O2 Flow Rate FiO2 01/20/20 08:48 98.6 94 19 106/76 100 Room Air Home Meds Active Scripts Cefdinir (OMNICEF) 300 Mg Capsule, 300 MG PO BID for 5 Days, CAP Prov:MARISSA MULLIGAN MOTORCYCLE DESIGNER 09/02/19 Potassium Chloride* (K DUR*) 10 Meq Tabcr, 20 MEQ PO BID for 30 Days Prov:MARISSA MULLIGAN MOTORCYCLE DESIGNER 09/02/19 Magnesium Oxide (MAG-OXIDE) 400 Mg Tablet, 400 MG PO BID for 30 Days Prov:MARISSA MULLIGAN MOTORCYCLE DESIGNER 09/02/19 Midodrine Hcl (MIDODRINE HCL) 5 Mg Tablet, 10 MG PO TID@0800,1200,1600 for 30 Days Prov:AMRISSA MULLIGAN MOTORCYCLE DESIGNER 09/02/19 Furosemide (FUROSEMIDE) 20 Mg Tablet, 20 MG PO BID for 30 Days Prov:MARISSA MULLIGAN M MOTORCYCLE DESIGNER 09/02/19 Docusate Sodium (DOCUSATE SODIUM) 100 Mg Capsule, 100 MG PO DAILY for 30 Days, CAP Prov:MARISSA MULLIGAN MOTORCYCLE DESIGNER 08/29/19 Ascorbic Acid (ASCORBIC ACID) 500 Mg Tablet, 500 MG PO DAILY, #30 TAB Prov:MARISSA MULLIGAN MOTORCYCLE DESIGNER 08/29/19 Ferrous Sulfate (FERROUS SULFATE) 325 Mg Tablet, 325 MG PO DAILY for 30 Days Prov:MARISSA MULLIGAN MOTORCYCLE DESIGNER 08/29/19 Pantoprazole Sodium* (PROTONIX) 40 Mg Tablet.dr, 40 MG PO BIDAC for 30 Days, TAB Prov:MARISSA MULLIGAN MOTORCYCLE DESIGNER 08/29/19 Tramadol Hcl* (ULTRAM 50MG*) 50 Mg Tab, 50 MG PO Q6H PRN for PAIN, #30 TAB Prov:MARISSA MULLIGAN MOTORCYCLE DESIGNER 08/29/19 Apixaban (Eliquis) 2.5 Mg Tablet, 2.5 MG PO BID for 30 Days Prov:MARISSA MULLIGAN MOTORCYCLE DESIGNER 08/29/19 Tizanidine Hcl (TIZANIDINE HCL) 4 Mg Tablet, 4 MG PO BID PRN for Muscle Cramps, #30 TAB Prov:MARISSA MULLIGAN MOTORCYCLE DESIGNER 08/29/19 Medications in the ED Sodium Chloride 1,000 ml @ 0 mls/hr Q0M STAT IV ; Start 01/20/20 at 09:05; Stop 01/20/20 at 09:06 Morphine Sulfate 4 mg ONCE PRN IV SEVERE PAIN (7-10); Start 01/20/20 at 09:15; Stop 01/27/20 at 09:14 Ondansetron HCl 4 mg NOW STAT IV ; Start 01/20/20 at 09:05; Stop 01/20/20 at 09:06 Dexamethasone Sodium Phosphate 10 mg ONCE ONCE IV ; Start 01/20/20 at 09:15; Stop 01/20/20 at 09:16 GAYLE PIPER DO Jan 20, 2020 09:30
--- NOTE | 2020-01-20 09:38 | Diagnostic Imaging Report ---
TECHNIQUE: Frontal view of the chest. INDICATION: ^Y ^COUGH ^[id number] ^[id number] COMPARISON: 09/30/2017 DISCUSSION: Limited evaluation due to portable technique. Lines and hardware: None Heart and mediastinum: Stable. Lungs and pleura: No focal airspace consolidation. No pleural effusion. No pneumothorax. Soft tissues and bones: No acute abnormality. IMPRESSION: Negative for acute intrathoracic process. Signed by: Geraldo Houston MD on 01/20/2020 9:35 AM
[2020-01-20] MEDS ORDERED: SODIUM CHLORIDE 0.9% 50ML 50 ML ONE ×2 (09:40→10:33)
[2020-01-20] MEDS ORDERED: IOPAMIDOL 370 MG/ML 200 ML INFUS..BTL INJ ONE ×2 (09:40→10:33)
--- NOTE | 2020-01-20 10:37 | Diagnostic Imaging Report ---
CT of the abdomen and pelvis with contrast TECHNIQUE: CT of the abdomen and pelvis WITH intravenous contrast and WITHOUT oral contrast. Dose modulation, iterative reconstruction, and/or weight-based adjustment of the mA/kV was utilized to reduce the radiation dose to as low as reasonably achievable. IV CONTRAST: 100 mL of Isovue-370 ORAL CONTRAST: Water RADIATION DOSE: Total DLP: 820 mGy*cm COMPLICATIONS: None INDICATION: ^Y ^ABD PAIN ^[id number] ^1150. COMPARISON: 10/06/2019. FINDINGS: LOWER THORAX: Unremarkable. HEPATOBILIARY: Stable cirrhotic liver morphology. Stable diffuse hypoattenuation of the liver. No suspicious hepatic mass. SPLEEN: Stable splenomegaly measuring up to 12.5 cm. PANCREAS: No focal masses or ductal dilatation. ADRENALS: No adrenal nodules. KIDNEYS/URETERS: No hydronephrosis, stones, or masses. PELVIC ORGANS/BLADDER: Unremarkable. PERITONEUM/RETROPERITONEUM: Previously identified ascites has resolved with trace scattered areas of fluid. Peritoneal enhancement has improved. There is improvement in the stranding surrounding the liver and peritoneal surfaces. LYMPH NODES: No lymphadenopathy. VESSELS: Interval progression of the portal vein thrombus extending from the confluence of the splenic and superior mesenteric veins into the main portal vein. No right or left portal vein thrombus is identified at this time. Negative for abdominal aortic aneurysm. GI TRACT: Bowel loops are not dilated. Portions of the stomach and colon are decompressed limiting evaluation. Normal appendix is noted. Free fluid and scattered edema/stranding within the abdomen from prior infection Limited evaluation. BONES AND SOFT TISSUES: No acute osseous abnormality. Mild multilevel degenerative changes are noted. Partially visualized bilateral gynecomastia is noted. IMPRESSION: 1. Stable cirrhotic liver morphology with sequela of portal hypertension. Previously identified peritoneal enhancement and ascites has significantly improved suggesting improving infection. Residual stranding and trace amount of ascites is noted. 2. Interval significant worsening of main portal vein thrombus. Thrombus is not identified within the SMV, splenic vein or right or left portal veins. Signed by: Geraldo Houston MD on 01/20/2020 10:33 AM
--- OUTSIDE RECORDS SUMMARY | 2020-01-20 11:34 | XMS REPORT | Continuity of Care Document ---
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 2018-08-04 05:02:00 [facility] Systolic (mm Hg) 2018-06-05 21:30:00 [facility] Diastolic (mm Hg) 2018-06-05 21:30:00 [facility] Respitory Rate 2018-06-05 21:30:00 [facility] Systolic (mm Hg) 2018-06-05 21:15:00 [facility] Diastolic (mm Hg) 2018-06-05 21:15:00 [facility] Respitory Rate 2018-06-05 21:15:00 [facility] Systolic (mm Hg) 2018-06-05 21:00:00 [facility] Diastolic (mm Hg) 2018-06-05 21:00:00 [facility] Respitory Rate 2018-06-05 21:00:00 [facility] Heart Rate 2018-06-05 16:11:00 [facility] Temperature Oral (F) 2018-06-05 16:11:00 98.1 F [facility] Temperature Oral (F) 2018-06-05 12:11:00 98 F [facility] Heart Rate 2018-06-05 12:11:00 [facility] Temperature Oral (F) 2018-06-05 08:10:00 98.1 F [facility] Heart Rate 2018-06-05 08:10:00 [facility] BMI Calculated 2018-06-02 00:42:00 [facility] Weight 2018-06-02 00:42:00 [facility] Height 2018-06-02 00:42:00 175.26 cm [facility] Weight 2018-06-01 14:58:00 [facility] Weight 2018-05-31 18:08:00 [facility] Height 2018-05-31 18:08:00 175.26 cm [facility] BMI Calculated 2018-05-31 18:08:00 [facility] Systolic (mm Hg) 2018-05-31 18:08:00 [facility] Diastolic (mm Hg) 2018-05-31 18:08:00 [facility] Respitory Rate 2018-05-31 18:08:00 [facility] Heart Rate 2018-05-31 18:08:00 [facility] Temperature Oral (F) 2018-05-31 18:08:00 98.2 F [facility] Systolic (mm Hg) 2018-04-18 23:05:00 [facility] Diastolic (mm Hg) 2018-04-18 23:05:00 [facility] Heart Rate 2018-04-18 23:05:00 [facility] Respitory Rate 2018-04-18 23:05:00 [facility] Temperature Oral (F) 2018-04-18 23:05:00 98.5 F [facility] Height 2018-04-18 23:05:00 175.26 cm [facility] BMI Calculated 2018-04-18 23:05:00 [facility] Weight 2018-04-18 23:05:00 [facility] Weight 2017-09-16 19:15:00 [facility] BMI Calculated 2017-09-16 19:15:00 [facility] Height 2017-09-16 19:15:00 175.26 cm [facility] Temperature Oral (F) 2017-09-16 19:15:00 99.1 F [facility] Respitory Rate 2017-09-16 19:15:00 [facility] Heart Rate 2017-09-16 19:15:00 [facility] Systolic (mm Hg) 2017-09-16 19:15:00 [facility] Diastolic (mm Hg) 2017-09-16 19:15:00 [facility] Temperature Oral (F) 2017-09-16 16:04:00 98.9 F [facility] Respitory Rate 2017-09-16 16:04:00 [facility] Systolic (mm Hg) 2017-09-16 16:04:00 [facility] Diastolic (mm Hg) 2017-09-16 16:04:00 [facility] Systolic (mm Hg) 2017-09-16 15:01:00 [facility] Diastolic (mm Hg) 2017-09-16 15:01:00 [facility] Respitory Rate 2017-09-16 15:01:00 [facility] Height 2017-09-16 14:07:00 175.26 cm [facility] BMI Calculated 2017-09-16 14:07:00 [facility] Weight 2017-09-16 14:07:00 [facility] Systolic (mm Hg) 2017-09-16 14:03:00 [facility] Diastolic (mm Hg) 2017-09-16 14:03:00 [facility] Respitory Rate 2017-09-16 14:03:00 [facility] Temperature Oral (F) 2017-09-16 13:01:00 99.0 F [facility] Heart Rate 2017-09-16 11:10:00 [facility] Heart Rate 2017-09-16 09:30:00 [facility] Weight 2017-09-16 06:48:00 [facility] Temperature Oral (F) 2017-09-16 06:48:00 99 F [facility] Heart Rate 2017-09-16 06:48:00 [facility] Procedures Procedure Date / Time Performed Performing Clinician [facility] e US Abdomen limited 2019-10-07 00:00:00 [facility] Computed tomography of abdomen and pelvis with contrast 00:00:00 [facility] US guided paracentesis 2019-10-02 00:00:00 [facility] Computed tomography of abdomen and pelvis with contrast 00:00:00 [facility] US Abdomen limited 2019-09-02 00:00:00 [facility] Computed tomography of chest without contrast 2019-09-01 00:00:0 0 [facility] Computed tomography of abdomen and pelvis with contrast 00:00:00 [facility] TRANSFUSE NONAUT RED BLOOD CELLS IN CENTRAL VEIN, PERC 2019-08-12 6 00:00:00 [facility] US Abdomen limited 2019-08-26 00:00:00 [facility] Ultrasound, renal 2019-08-26 00:00:00 [facility] X-ray of chest, two views 2019-08-25 00:00:00 I [facility] Computed tomography of abdomen and pelvis with contrast 00:00:00 [facility] TRANSFUSE NONAUT RED BLOOD CELLS IN PERIPH VEIN, PERC 2019-08-16 00:00:00 [facility] TRANSFUSE NONAUT PLATELETS IN PERIPH VEIN, PERC 2019-08-15 00:00 :00 [facility] Computed tomography of abdomen and pelvis with contrast 00:00:00 [facility] Computed tomography of brain without radiopaque contrast 2019-08 00:00:00 [facility] First Vx - Ix admin for Medicare patients 2019-04-09 10:33:15 Iv sharmaine [facility] Engerix-B Injection Suspension 20 MCG/ML 2019-04-09 10:33:15 Marina [employer] [facility] Vaccines Ordered - Print Consent/Declination Forms 2019-03-14 8 10:23:04 Ana LauraD[employer] [facility] Venipuncture 2019-03-28 09:36:19 Ana Laura, [facility] Exploratory laparotomy [facility] Plan of Care Planned Activity Planned Date Details Comments Source Instructions Abdominal Pain - Adult [facility] Instructions GI Bleeding [facility] Encounters Start Date/Time End Date/Time Encounter Type Admission Type Attendi [facility] Facility Care Department Encounter ID Source 2019-10-01 12:38:00 2019-10-08 16:45:00 Discharged Inpatient 1 ISABEL GÓMEZAHAM [facility] [id number] [facility] 2019-08-23 16:10:00 2019-09-02 19:01:00 Discharged Inpatient 1 DAVI KELLY [facility] [id number] [facility] 2019-08-15 11:21:00 2019-08-16 23:20:00 Discharged Inpatient 1 GOLDEN WANG [facility] [id number] [facility] 2019-06-11 00:00:00 2019-06-11 00:00:00 Office Visit Jonelle Heard Jacklyn Zuniga Flores, Westley Avendano [facility] Encount er/[id number] [facility] 2019-04-17 00:00:00 2019-04-17 00:00:00 Office Visit Mir Mendoza [facility] Encounter/[id number] [facility] 2019-04-17 00:00:00 2019-04-17 00:00:00 [facility] Visit [facility] Put[facility]/[id number] [facility] 2019-04-16 00:00:00 2019-04-16 00:00:00 Office Visit Status, Fax [facility] Encounter/[id number] [facility] 2019-04-16 00:00:00 2019-04-16 00:00:00 Office Visit Status, Fax [facility] Encounter/[id number] [facility] 2019-04-16 00:00:00 2019-04-16 00:00:00 Office Visit Status, Fax [facility] Encounter/[id number] [facility] 2019-04-16 00:00:00 2019-04-16 00:00:00 Office Visit Status, Fax [facility] Encounter/[id number] [facility] 2019-04-16 00:00:00 2019-04-16 00:00:00 Office Visit Status, Fax [facility] Encounter/[id number] [facility] 2019-04-09 00:00:00 2019-04-09 00:00:00 Office Visit Vane Du [facility] Encounter/[id number] [facility] 2019-04-09 00:00:00 2019-04-09 00:00:00 Office Visit I Vane toth Adriana [facility] Encounter/[id number] [facility] 2019-04-02 00:00:00 2019-04-02 00:00:00 Office Visit G Mir agudelo, Jonelle Porter, Sisi Pagan, Jo Whitten [facility] Contact Center Encounter/[id number] [facility] 2019-04-02 00:00:00 2019-04-02 00:00:00 Office Visit G Sisi ross Deborath [facility] Encounter/[id number] [facility] 2019-03-29 00:00:00 2019-03-29 00:00:00 Office Visit Status, Fax [facility] Encounter/[id number] [facility] 2019-03-29 00:00:00 2019-03-29 00:00:00 Office Visit Status, Fax [facility] Encounter/[id number] [facility] 2019-03-29 00:00:00 2019-03-29 00:00:00 Office Visit Status, Fax [facility] Encounter/[id number] [facility] 2019-03-29 00:00:00 2019-03-29 00:00:00 Office Visit I Vane toth Shakira [facility] Encounter/[id number] [facility] 2019-03-29 00:00:00 2019-03-29 00:00:00 Office Visit Vane Du [facility] Encounter/[id number] [facility] 2019-03-28 00:00:00 2019-03-28 00:00:00 Office Visit I Vane toth Iris Granados, Deborath [facility] Encounter/[id number] [facility] 2019-03-28 00:00:00 2019-03-28 00:00:00 Office Visit Vane Du [facility] Encounter/[id number] [facility] 2019-03-28 00:00:00 2019-03-28 00:00:00 Office Visit I Vane toth Deborath [facility] Encounter/[id number] [facility] 2019-02-27 00:00:00 2019-02-27 00:00:00 Office Visit Status, Fax [facility] Encounter/[id number] [facility] 2019-02-27 00:00:00 2019-02-27 00:00:00 Office Visit Status, Fax [facility] Encounter/[id number] [facility] 2019-02-27 00:00:00 2019-02-27 00:00:00 Office Visit Status, Fax [facility] Encounter/[id number] [facility] 2019-02-27 00:00:00 2019-02-27 00:00:00 Office Visit V Jonelle anderson, Leti Phillips, Keli Stephenson [facility] Encounter/[id number] [facility] 2019-02-27 00:00:00 2019-02-27 00:00:00 Office Visit Ana LauraVane schmid [facility] Encounter/[id number] [facility] 2019-02-27 00:00:00 2019-02-27 00:00:00 Office Visit I Vane toth Shakira Granados, Deborath [facility] Encounter/[id number] [facility] 2019-02-26 11:19:29 2019-02-26 14:42:00 Outpatient Mary Banks [facility]SE [facility] [id number] 2019-02-26 11:19:00 2019-02-26 11:19:00 Emergency E MHSE [facility]SE [id number] [facility] 2018-08-24 20:55:56 2018-08-25 00:12:00 Outpatient Mary Banks ep MHSE MHSE [id number] 2018-08-24 20:55:00 2018-08-24 20:55:00 Emergency E MHSE MHSE [id number] [facility] 2018-08-03 23:59:28 2018-08-04 05:44:00 Outpatient Mary Banks ep MHSE MHSE [id number] 2018-08-03 23:59:00 2018-08-03 23:59:00 Emergency E MHSE MHSE [id number] [facility] 2018-06-01 09:37:00 2018-06-05 18:35:00 Outpatient Nabeel Hough i MHPL MHPL [id number] 2018-05-31 12:19:00 2018-05-31 19:22:00 Outpatient Mary Banks ep MHSE MHSE [id number] 2018-04-18 16:46:00 2018-04-18 20:32:00 Outpatient Iheme, Varinder U MHSE MHSE [id number] 2018-04-18 16:46:00 2018-04-18 20:32:00 Outpatient Iheme, Varinder U MHSE MHSE [id number] 2018-04-18 16:46:00 2018-04-18 16:46:00 Emergency E MHSE MHSE [id number] [facility] 2017-09-16 13:46:00 2017-09-16 15:34:00 Outpatient F alanakirillyvonnereva Pauline Benitez MHPL MHPL [id number] 2017-09-16 01:41:00 2017-09-16 12:59:00 Outpatient Zandra Justice MHSE MHSE [id number] 2017-06-15 15:53:00 2017-06-20 17:14:00 Discharged Inpatient ER [facility] [id number] [facility] Results Test Description Test Time Test Comments Results Result Comments Source CT ABDOMEN/PELVIS W 2020-01-20 10:24:00 [facility] 1970 Sex: M [facility] [address] [address] Patient Name: JOCELIN CORREA MR #: [id number] : 1970 Age/Sex: 49/M Req #: [id number] [facility] Physician: Ordered by: GAYLE PIPER DO Report #: [id number] Location: ER Room/Bed: Procedure: [id number] CT/CT ABDOMEN/PELVIS W Exam Date: 01/20/20 Exam Time: 949 REPORT STATUS: Signed CT of the abdomen and pelvis with contrast TECHNIQUE: CT of the abdomen and pelvis WITH intravenous contrast and WITHOUT oral contrast. Dose modulation, iterative reconstruction, and/or weight-based adjustment of the mA/kV was utilized to reduce the radiation dose to as low as reasonably achievable. IV CONTRAST: 100 mL of Isovue-370 ORAL CONTRAST: Water RADIATION DOSE: Total DLP: 820 mGy*cm COMPLICATIONS: None INDICATION: Y ABD PAIN 20200120 0950. COMPARISON: 10/06/2019. FINDINGS: LOWER THORAX: Unremarkable. HEPATOBILIARY: Stable cirrhotic liver mo rphology. Stable diffuse hypoattenuation of the liver. No suspicious hepatic mass. SPLEEN: Stable splenomegaly measuring up to 12.5 cm. PANCREAS: No focal masses or ductal dilatation. ADRENALS: No adrenal nodules. KIDNEYS/URETERS: No hydronephrosis, stones, or masses. PELVIC ORGANS/BLADDER: Unremarkable. PERITONEUM/RETROPERITONEUM: Previously identified ascites has resolved with trace scattered areas of fluid. Peritoneal enhancement has improved. There is improvement in the stranding surrounding the liver and peritoneal surfaces. LYMPH NODES: No lymphadenopathy. VESSELS: Interval progression of the portal vein thrombus extending from the confluence of the splenic and superior mesenteric veins into the main portal vein. No right or left portal vein thrombus is identified at this time. Negative for abdominal aortic aneurysm. GI TRACT: Bowel loops are not dilated. Portions of the stomach and colon are decompressed limiting evaluation. Normal appendix is no tatum. Free fluid and scattered edema/stranding within the abdomen from prior infection Limited evaluation. BONES AND SOFT TISSUES: No acute osseous abnormality. Mild multilevel degenerative changes are noted. Partially visualized bilateral gynecomastia is noted. IMPRESSION: 1. Stable cirrhotic liver morphology with sequela of portal hypertension. Previously identified peritoneal enhancement and ascites has significantly improved suggesting improving infection. Residual stranding and trace amount of ascites is noted. 2. Interval significant worsening of main portal vein thrombus. Thrombus is not identified within the SMV, splenic vein or right or left portal veins. Signed by: Geraldo Russell MD on 01/20/2020 10:33 AM Dictated By: GERALDO RUSSELL MD 1033 Transcribed By: ZAHEER on 01/20/20 1033 COPY TO: GAYLE PIPER DO CHEST SINGLE (PORTABLE) 2020-01-20 09:34:00 [facility] 1970 Sex: M [facility] [address] [id number] Patient Name: JOCELIN CORREA MR #: [id number] : 1970 Age/Sex: 49/M Req #: [id number] Adm Physician: Ordered by: GAYLE PIPER DO Report #: [id number] Location: ER Room/Bed: Procedure: [id number] DX/CHEST SINGLE (PORTABLE) Exam Date: 01/20/20 Exam Time: 914 REPORT STATUS: Signed TECHNIQUE: Frontal view of the chest. INDICATION: Y COUGH 20200120 COMPARISON: 09/30/2017 DISCUSSION: Limited evaluation due to portable technique. Lines and hardware: None Heart and mediastinum: Stable. Lungs and pleura: No focal airspace consolidation. No pleural effusion. No pneumothorax. Soft tissues and bones: No acute abnormality. IMPRESSION: Negative for acute intrathoracic process. Signed by: Geraldo Russell MD on 01/20/2020 9:35 AM Dictated By: GERALDO RUSSELL MD 4 Transcribed By: ZAHEER on 01/20/20934 COPY TO: GAYLE PIPER DO ABDOMEN 2 VIEW 2019-10-07 09:33:[address] [address] Patient Name: JOCELIN CORREA MR #: [id number] : 1970 Age/Sex: 49/M Req #: [id number] Adm Physician: ELIAS GÓMEZ MD Ordered by: TYREL MURILLO MD Report #: [id number] Location: MED/SURG Room/Bed: 106-1 Procedure: DX/ABDOMEN 2 VIEW Exam Date: 10/07/19 Exam [...] on 10/07/19934 COPY TO: TYREL MURILLO MD US ABDOMEN LIMITED 2019-10-07 09:09:[address] [address] Patient Name: JOCELIN CORREA MR #: [id number] : 1970 Age/Sex: 49/M Req #: [id number] Adm Physician: ELIAS GÓMEZ MD Ordered by: ELIAS GÓMEZ MD Report #: [id number] Location: MED/SURG Room/Bed: [facility] Procedure: US/US ABDOMEN LIMITED Exam Date: 10/07/19 Exam [...] Count (test code = 6690-2) 2.50 4.8-10.8 [facility] (number/volume)2019-10-07 04:50:00* Test Item Value Reference Range Interpretation Comments Red Blood Count (test code = 789-8) 3.08 4.3-5.7 [facility] measurement (moles/volume)2019-10-07 04:50:00* Test Item Value Reference Range Interpretation Comments Hemoglobin (test code = 20805-0) 9.0 14.0-18.0 [facility] hematocrit (volume fraction)2019-10-07 04:50:00* Test Item Value Reference Range Interpretation Comments Hematocrit (test code = 4544-3) 28.5 38.2-49.6 [facility] mean corpuscular [id number] 04:50:00* Test Item Value Reference Range Interpretation Comments Mean Corpuscular Volume (test code = 787-2) 92.5 81-99 [facility] mean corpuscular hemoglobin (mass per erythrocyte)2019-10-07 04:50:00* Test Item Value Reference Range Interpretation Comments Mean Corpuscular Hemoglobin (test code = 785-6) 29.2 28-32 [facility] mean corpuscular hemoglobin concentration measurement (mass/volume)2019-10-07 04:50:00* Test Item Value Reference Range Interpretation Comments Mean Corpuscular Hemoglobin Concent (test code = 786-4) 31.6 31-35 [facility] HospitalRDW [id number] 04:50:00* Test Item Value Reference Range Interpretation Comments Red Cell Distribution Width (test code = 45002-2) 28.4 11.7 -14.4 [facility] platelet count (count/volume)2019-10-07 04:50:00* Test Item Value Reference Range Interpretation Comments Platelet Count (test code = 777-3) 47 140-360 Results repeated and called to dianelys aguilera rn at 0519 on 10/07/19 by Rupert Lazaro. Read back and verified.This test has been rerun and double checked fo r accuracy.[facility] segmented neutrophil count as percentage of total jkxvfltxox1498-70-98 04:50:00* Test Item Value Reference Range Interpretation Comments Neutrophils (%) (Auto) (test code = 20803-3) 48.0 38.7-80.0 [facility] lymphocyte count as percentage ot total yzagfirgzx8384-92-77 04:50:00* Test Item Value Reference Range Interpretation Comments Lymphocytes (%) (Auto) (test code = 736-9) 22.8 18.0-39.1 [facility] monocyte count as percentage of total mayocdjibv3333-44-75 04:50:00* Test Item Value Reference Range Interpretation Comments Monocytes (%) (Auto) (test code = 5905-5) 16.0 4.4-11.3 [facility] eosinophil count as percentage of total xiwiixjqlf0884-56-37 04:50:00* Test Item Value Reference Range Interpretation Comments Eosinophils (%) (Auto) (test code = 713-8) 12.4 0.0-6.0 [facility] basophil count as percentage of total qjplvvsaix7463-12-51 04:50:00* Test Item Value Reference Range Interpretation Comments Basophils (%) (Auto) (test code = 706-2) 0.4 0.0-1.0 [facility] HospitalFluoroscopic procedure less than one hour unhmhvhe5279-07-33 04:50:00* Test Item Value Reference Range Interpretation Comments IM GRANULOCYTES % (test code = IM GRANULOCYTES %) 0.4 0.0- 1.0 [facility] neutrophil count 2019-10-07 04:50:00* Test Item Value Reference Range Interpretation Comments Neutrophils # (Auto) (test code = 751-8) 1.2 2.1-6.9 [facility] lymphocytes count (number/volume) 2019-10-07 04:50:00* Test Item Value Reference Range Interpretation Comments Lymphocytes # (Auto) (test code = 61645-0) 0.6 1.0-3.2 [facility] monocytes automated count (number/volume)2019-10-07 04:50:00* Test Item Value Reference Range Interpretation Comments Monocytes # (Auto) (test code = 742-7) 0.4 0.2-0.8 [facility] HospitalAutomated blood eosinophil count 2019-10-07 04:50:00* Test Item Value Reference Range Interpretation Comments Eosinophils # (Auto) (test code = 711-2) 0.3 0.0-0.4 [facility] HospitalAutomated blood basophil count (count/volume)2019-10-07 04:50:00* Test Item Value Reference Range Interpretation Comments Basophils # (Auto) (test code = 704-7) 0.0 0.0-0.1 [facility] HospitalFluoroscopic procedure less than one hour buzsacgp6363-89-88 04:50:00* Test Item Value Reference Range Interpretation Comments Absolute Immature Granulocyte (auto ([place] t code = Absolute Immature Granulocyte (auto) 0.01 0-0.1 [facility] sodium measurement (moles/volume)2019-10-07 04:50:00* Test Item Value Reference Range Interpretation Comments Sodium Level (test code = 2951-2) 134 136-145 [facility] or plasma potassium measurement (moles/volume)2019-10-07 04:50:00* Test Item Value Reference Range Interpretation Comments Potassium Level (test code = 2823-3) 3.4 3.5-5.1 [facility] or plasma chloride measurement (moles/volume)2019-10-07 04:50:00* Test Item Value Reference Range Interpretation Comments Chloride Level (test code = 2075-0) 108 98-107 [facility] or plasma carbon dioxide, total measurement (moles/volume)2019-10-07 04:50:00* Test Item Value Reference Range Interpretation Comments Carbon Dioxide Level (test code = 2028-9) 22 22-29 [facility] or plasma anion tme8580-34-47 04:50:00* Test Item Value Reference Range Interpretation Comments Anion Gap (test code = 70146-5) 7.4 8-16 [facility] or plasma urea nitrogen measurement (mass/volume)2019-10-07 04:50:00* Test Item Value Reference Range Interpretation Comments Blood Urea Nitrogen (test code = 3094-0) < 5 7-26 [facility]ere[facility] or plasma creatinine measurement (mass/volume)2019-10-07 04:50:00* Test Item Value Reference Range Interpretation Comments Creatinine (test code = 2160-0) 0.77 0.72-1.25 [facility]ere[facility] or plasma urea nitrogen/creatinine mass yvrot3818-37-64 04:50:00* Test Item Value Reference Range Interpretation Comments BUN/Creatinine Ratio (test code = 3097-3) 6 6-25 [facility] HospitalEstimated glomerular filtration rate (GFR) gihkvlevfukpz3441-12-78 04:50:00* Test Item Value Reference Range Interpretation Comments Estimat Glomerular Filtration Rate (test code = 185424936) > 60 >60 Ranges were taken from the National Kidney Disease Education Program and the [facility] literature.Reference ranges:60 or greater: Rlefdp71-38 ( for 3 consecutive months): Chronic kidney disease 15 or less: Kidney failureTexas Orthopedic HospitalGlucose fwmfdvzmhab2943-62-30 04:50:00* Test Item Value Reference Range Interpretation Comments Glucose Level (test code = WTQ9412) 109 74-118 [facility] or plasma calcium measurement (mass/volume)2019-10-07 04:50:00* Test Item Value Reference Range Interpretation Comments Calcium Level (test code = 34800-3) 7.2 8.4-10.2 [facility] or plasma total bilirubin measurement (mass/volume)2019-10-07 04:50:00* Test Item Value Reference Range Interpretation Comments Total Bilirubin (test code = 1975-2) 1.5 0.2-1.2 [facility] HospitalFluoroscopic procedure less than one hour zgtfrvby3731-72-36 04:50:00* Test Item Value Reference Range Interpretation Comments Aspartate Amino Transf (AST/SGOT) (test code = Aspartate Amino Transf (AST/SGOT)) 27 5-34 [facility]ererum or plasma alanine aminotransferase measurement (enzymatic activity/volume)2019-10-07 04:50:00* Test Item Value Reference Range Interpretation Comments Alanine Aminotransferase (ALT/SGPT) (test code = 1742-6) 9 0-55 [facility] or plasma protein measurement (mass/volume)2019-10-07 04:50:00* Test Item Value Reference Range Interpretation Comments Total Protein (test code = 2885-2) 6.7 6.5-8.1 [facility]ere[facility] or plasma albumin measurement (mass/volume)2019-10-07 04:50:00* Test Item Value Reference Range Interpretation Comments Albumin (test code = 1751-7) 2.0 3.5-5.0 [facility] HospitalPlasma globulin measurement (mass/volume) 2019-10-07 04:50:00* Test Item Value Reference Range Interpretation Comments Globulin (test code = 81385-4) 4.7 2.3-3.5 [facility] or plasma albumin/globulin mass caseq7096-68-42 04:50:00* Test Item Value Reference Range Interpretation Comments Albumin/Globulin Ratio (test code = 1759-0) 0.4 0.8-2.0 [facility]ererum or plasma alkaline phosphatase measurement (enzymatic activity/volume)2019-10-07 04:50:00* Test Item Value Reference Range Interpretation Comments Alkaline Phosphatase (test code = 6768-6) 47 40-150 [facility] HospitalCT ABDOMEN/PELVIS K3374-70-87 00:51:00 [facility] [address] [address] Patient Name: JOCELIN CORREA MR #: [id number] : 1970 Age/Sex: 49/M Req #: [id number] Adm Physician: ELIAS GÓMEZ MD Ordered by: AMARA GUTHRIE MD Re port #: [id number] Location: MED/SURG Room/ Bed: [facility] Procedure: [id number] CT/CT ABDOMEN /PELVIS W Exam Date: 10/06/19 [...] Interpretation Comments Magnesium Level (test code = 67901-7) 1.3 1.3-2.1 [facility] FDHX7452-14-45 08:26:[address] [address] [address] Patient Name: JOCELIN CORREA MR #: [id number] : 1970 Age/Sex: 49/M Req #: [id number] Adm Physician: ELIAS GÓMEZ MD Ordered by: TYREL MURILLO MD Report #: [id number] Location: MED/SURG R oom/Bed: 106-1 Procedure: [id number] DX/ABDOME N 2 VIEW Exam Date: 10/04/19 [...] Interpretation Comments Platelet Estimate (test code = 74369-7) MARKEDLY DECREASED [facility]atelet ahjizobidt1905-06-56 05:10:00* Test Item Value Reference Range Interpretation Comments Platelet Morphology Comment (test code = 23097-9) NORMAL [facility] HospitalRB vndvoznpbh1864-93-63 05:10:00* Test Item Value Reference Range Interpretation Comments Red Cell Morphology Comment (test code = 6742-1) NORMAL [facility] HospitalABDOMEN 2 VGTJ6809-70-02 08:45:00 [address] [address] Patient Name: JOCELIN CORREA MR #: [id number] : 1970 Age/Sex: 49/M Req #: [id number] Adm Physician: ELIAS GÓMEZ MD Ordered by: TYREL MURILLO MD Report #: [id number] Location: MED/SURG R o/Bed: 106-1 Procedure: [id number] DX/ABDOME N 2 VIEW Exam Date: 10/03/19 [...] lectronically Signed By: NAYELI CHAPPELL MD on 10/03/19 0847 Transcribed By: ZAHEER on 10/03/19 0847 COPY TO: TYREL MURILLO MD Automated reticulocyte count as percentage of total nfrwpzyczspb3739-99-17 05:10:00* Test Item Value Reference Range Interpretation Comments Percent Reticulocyte Count (test code = 62515-3) 2.4 0.8-2 .2 [facility] HospitalProthrombin time (PT) in platelet poor plasma by coagulation emlyh0902-79-24 05:10:00* Test Item Value Reference Range Interpretation Comments Prothrombin Time (test code = 5902-2) 18.0 11.9-14.5 [facility] HospitalINR in Platelet poor plasma by Coagulation xrmwr1161-92-60 05:10:00* Test Item Value Reference Range Interpretation Comments Prothromb Time International Ratio (test code = 6301-6) 1.40 Oral Anticoagulant Therapy INR Values:1. Low Intensity Therapy 1.5 - 2.02 . Moderate Intensity Therapy 2.0 - 3.03. High Intensity Therapy(1) 2.5 - 3. 54. High Intensity Therapy(2) 3.0 - 4.05. Panic Value INR > 5.0 [facility] iron measurement (mass/volume)2019-10-03 05:10:00* Test Item Value Reference Range Interpretation Comments Iron Level (test code = 2498-4) 100 65-175 [facility] iron binding capacity measurement (mass/volume)2019-10-03 05:10:00* Test Item Value Reference Range Interpretation Comments Total Iron Binding Capacity (test code = 2500-7) 237 261-4 78 [facility]ere[facility] or plasma iron saturation measurement (mass fraction)2019-10-03 05:10:00* Test Item Value Reference Range Interpretation Comments Percent Iron Saturation (test code = 2502-3) 42 15-50 [facility]ere[facility] or plasma transferrin measurement (mass/volume)2019-10-03 05:10:00* Test Item Value Reference Range Interpretation Comments Transferrin (test code = 3034-6) 169 174-364 [facility]ere[facility] or plasma ferritin measurement (mass/volume)2019-10-03 05:10:00* Test Item Value Reference Range Interpretation Comments Ferritin (test code = 2276-4) 200.56 21.81-274.66 [facility] HospitalAmmonia Dkh-bRdx1344-25-23 05:10:00* Test Item Value Reference Range Interpretation Comments Ammonia (test code = 19067-1) 121 31-123 [facility] HospitalBlood cobalamin (vitamin B12) measurement (mass/volume)2019-10-03 05:10:00* Test Item Value Reference Range Interpretation Comments Vitamin B12 Level (test code = 48757-6) 781 213816 [facility] folate measurement (mass/volume)2019-10-03 05:10:00* Test Item Value Reference Range Interpretation Comments Folate (test code = 2284-8) 14.7 >3.0 A serum folate concentration of less than 3.1 ng/mL isconsidered to represent cl inical deficiency.Performed at: - [facility] [address] [id number] Director: Lopez Morgan MD, Phone: [phone] Orthopedic HospitalUS GUIDED ZVKIPJQKYZIZ5882-55-94 11:02:00 [facility] [address] [place] [address] Patient Name: JOCELIN CORREA MR #: [id number] : 1970 Age/Sex: 49/M Req #: [id number] Adm Physician: ELIAS GÓMEZ MD Ordered by: ELIAS GÓMEZ MD Report #: [id number] Location: MED/SURG Room/Bed: [facility] Procedure: [id number] US/US GUIDED PARACENTESIS Exam Date: 10/02/19 Exam [...] GÓMEZ MD Specimen source identification of body hpxaa9919-16-18 10:40:00* Test Item Value Reference Range Interpretation Comments Body Fluid Type (test code = 84237-1) PERITONEAL [facility] HospitalEvaluation of color of body fluid 2019-10-02 10:40:00* Test Item Value Reference Range Interpretation Comments Body Fluid Color (test code = 6824-7) RED [facility] HospitalDetermination of appearance of body fluid 2019-10-02 10:40:00* Test Item Value Reference Range Interpretation Comments Body Fluid Appearance (test code = 9335-1) SL.CLOUDY [facility] body fluid leukocytes count (number/volume)2019-10-02 10:40:00* Test Item Value Reference Range Interpretation Comments Body Fluid WBC (test code = 6743-9) 220 [facility] body fluid erythrocytes count (number/volume)2019-10-02 10:40:00* Test Item Value Reference Range Interpretation Comments Body Fluid RBC (test code = 6741-3) [address] [facility] body fluid neutrophils/100 ionpymskfm6555-86-20 10:40:00* Test Item Value Reference Range Interpretation Comments Body Fluid Neutrophils (test code = 80978-0) 20 [facility] HospitalBody fluid lymphocyte wpnpp0826-58-37 10:40:00* Test Item Value Reference Range Interpretation Comments Body Fluid Lymphocytes (test code = 55454880) 34 [facility] monocyte wvpxt6720-67-73 10:40:00* Test Item Value Reference Range Interpretation Comments Body Fluid Monocytes (test code = 02933-8) 43 [facility] HospitalBody fluid eosinophil percentage 2019-10-02 10:40:00* Test Item Value Reference Range Interpretation Comments Body Fluid Eosinophils (test code = 23643-6) 2 [facility] other cells manual count 2019-10-02 10:40:00* Test Item Value Reference Range Interpretation Comments Body Fluid Other Cells (test code = 950415321) 1 [facility] HospitalTotal cell tjhfy5017-61-25 10:40:00* Test Item Value Reference Range Interpretation Comments Body Fluid Total Cells Counted (test code = 28871-8) 100 [facility] KIUI4131-87-81 08:24:00 [facility] [address] [address] Patient Name: JOCELIN CORREA MR #: [id number] : 1970 Age/Sex: 49/M Req #: [id number] Adm Physician: ELIAS GÓMEZ MD Ordered by: TYREL MURILLO MD Report #: [id number] Location: MED/SURG R oom/Bed: 106 Procedure: [id number] DX/ABDOME N 2 VIEW Exam Date: 10/02/19 [...] noted within the colon as seen on chief information officer tomogram from comparison CT. No pneumoperitoneum. No abnormal calcification. Regional skeletal structures a re intact. IMPRESSION: Interval placement of an enteric tube as descri bed above. Bowel gas pattern is similar to that seen on chief information officer tomogram from comparison CT 10/01/2019. Of note, dilated small bowel loops were fluid-filled at that time and would not be expected to be visualized on plain radiography. No pneumoperitoneum. Signed by: Dr. Brianna Navarro M.D. on 10/01 8:29 AM Dictated By: BRIANNA NAVARRO MD 0829 Transcribed By: ZAHEER on 10/02/19 0829 COPY TO: TYREL MURILLO MD Fluoroscopic procedure less than one hour tzqtqvth2097-33-24 20:31:00* Test Item Value Reference Range Interpretation [...] complexity tests.Testing performed by [facility] [address] [phone] Director: Francisco Javier Barth M.D.CLIA # [id number] Orthopedic HospitalUrine color whytmqaarenqy7856-20-97 15:16:00* Test Item Value Reference Range Interpretation Comments Urine Color (test code = 5778-6) YELLOW YELLOW [facility] HospitalUrine qfpgmce2158-47-92 15:16:00* Test Item Value Reference Range Interpretation Comments Urine Clarity (test code = 65164-2) CLOUDY CLEAR [facility] Centerpecific gravity of Urine by Test strip 2019-10-01 15:16:00* Test Item Value Reference Range Interpretation Comments Urine Specific [place] (test code = 5811-5) 1.015 1.010-1.02 5 [facility] HospitalUrine pH measurement by automated test ewxvr8476-92-51 15:16:00* Test Item Value Reference Range Interpretation Comments Urine pH (test code = 14735-1) 7.5 5-7 [facility] HospitalUrine leukocyte esterase detection by hgiafkze9368-26-36 15:16:00* Test Item Value Reference Range Interpretation Comments Urine Leukocyte Esterase (test code = 5799-2) NEGATIVE NEGATIVE [facility] HospitalUrine nitrite iqgqnfuzu9892-08-01 15:16:00* Test Item Value Reference Range Interpretation Comments Urine Nitrite (test code = 93110-7) NEGATIVE NEGATIVE [facility] HospitalUrine protein measurement by test strip (mass/volume)2019-10-01 15:16:00* Test Item Value Reference Range Interpretation Comments Urine Protein (test code = 5804-0) NEGATIVE NEGATIVE [facility] HospitalUrine glucose vlofdctvy3450-38-95 15:16:00* Test Item Value Reference Range Interpretation Comments Urine Glucose (UA) (test code = 2349-9) NEGATIVE NEGATIVE [facility] HospitalUrine ketones detection by automated test imdaq4790-68-91 15:16:00* Test Item Value Reference Range Interpretation Comments Urine Ketones (test code = 96872-5) NEGATIVE NEGATIVE [facility] HospitalUrine urobilinogen measurement by test strip (mass/volume)2019-10-01 15:16:00* Test Item Value Reference Range Interpretation Comments Urine Urobilinogen (test code = 44209-8) 1 0.2-1 [facility] HospitalUrine total bilirubin measurement (mass/volume)2019-10-01 15:16:00* Test Item Value Reference Range Interpretation Comments Urine Bilirubin (test code = 1978-6) NEGATIVE NEGATIVE [facility] HospitalUrine erythrocytes llqdjcwzi8980-09-03 15:16:00* Test Item Value Reference Range Interpretation Comments Urine Blood (test code = 19193-6) 2+ NEGATIVE [facility] HospitalAutomated urine sediment leukocyte count by microscopy (number/high power field)2019-10-01 15:16:00* Test Item Value Reference Range Interpretation Comments Urine WBC (test code = 5821-4) NONE 0-5 [facility] HospitalErythrocytes detection in urine sediment by light yoymjyhehd8423-77-96 15:16:00* Test Item Value Reference Range Interpretation Comments Urine RBC (test code = 42231-5) 6-10 0-5 [facility] HospitalBacteria detection in urine sediment by light dayygqzqci5956-98-53 15:16:00* Test Item Value Reference Range Interpretation Comments Urine Bacteria (test code = 40993-4) MODERATE NONE [facility] HospitalEpithelial cells detection in urine sediment by light qoutdksjzl2623-48-22 15:16:00* Test Item Value Reference Range Interpretation Comments Urine Epithelial Cells (test code = 23216-3) RARE NONE [facility] HospitalAmorphous sediment detection in urine sediment by light nqwvztfmac8758-64-26 15:16:00* Test Item Value Reference Range Interpretation Comments Urine Amorphous Sediment (test code = 8246-1) MANY FEW [facility] HospitalCT ABDOMEN/PELVIS F6618-64-03 11:46:00 [facility] [address] [place] [address] Patient Name: JOCELIN CORREA MR #: [id number] : 1970 Age/Sex: 49/M Req #: [id number] Adm Physician: Ordered by: YAMILET STEVENS, SANDY STEVENS Report #: [id number] Location: ER [facility]/Bed: Procedure: [id number] CT/CT ABDO MEN/PELVIS W Exam Date: 10/01/19 [...] This exam was performed according to [facility] ental dose-optimization program which includes automated [...] TO: SANDY WOODARD CHEST SINGLE (PORTABLE)2019-10-01 09:18:00 [address] [address] Patient Name: JOCELIN CORREA MR #: [id number] : 1970 Age/Sex: 49/M Req #: [id number] Adm Physician: Ordered by: SANDY WOODARD MD, MD Report #: [id number] Location: ER Room/Bed: Procedure: [id number] DX/CHEST S BRAD (PORTABLE) Exam Date: 10/01/19 Exam Time: 0850 REPORT STATUS: Signed X-ray [facility] AP portable Comparison: CT 09/01/2019 History: Abdominal pain F indings: Poor inspiratory effort. Otherwise for the technique, central airways , cardiomediastinal silhouettes, pleural spaces, diaphragms, lung thompson, visu alized skeletal structures, extrathoracic soft tissues appear unremarkable. Impression: No significant abnormality on this exam. Signed by: Dionicio samuels MD on 10/01/2019 9:21 AM Dictated By: DIONICIO WHITTINGTON MD Electroni avelina Signed By: DIONICIO WHITTINGTON MD on 10/01/19920 Transcribed By: ZAHEER on 10/01/19920 COPY TO: SANDY WOODARD Fluoroscopic procedure less than one hour pwfiwmma0676-54-32 07:45:00* Test Item Value Reference Range Interpretation Comments Differential Total Cells Counted (test code = Differen tial Total Cells Counted) 100 [facility]vine[facility]ual blood neutrophils/100 leukocytes 2019-10-01 07:45:00* Test Item Value Reference Range Interpretation Comments Neutrophils % (Manual) (test code = 62320-9) 75 40-74 [facility] blood band neutrophils form/100 yagnltvjrk6694-83-42 07:45:00* Test Item Value Reference Range Interpretation Comments Band Neutrophils % (test code = 764-1) 4 [facility] blood lymphocytes/100 leukocytes 2019-10-01 07:45:00* Test Item Value Reference Range Interpretation Comments Lymphocytes % (Manual) (test code = 737-7) 9 19-48 [facility] blood monocytes/100 leukocytes 2019-10-01 07:45:00* Test Item Value Reference Range Interpretation Comments Monocytes % (Manual) (test code = 744-3) 8 3.4-9.0 [facility] blood eosinophil count as percentage of total ijzxhfsjwx7089-80-17 07:45:00* Test Item Value Reference Range Interpretation Comments Eosinophils % (Manual) (test code = 714-6) 4 0-7 [facility] or plasma creatine kinase measurement (enzymatic activity/volume)2019-10-01 07:45:00* Test Item Value Reference Range Interpretation Comments Creatine Kinase (test code = 2157-6) 20 30-200 [facility]ererum or plasma creatine kinase MB measurement (mass/volume)2019-10-01 07:45:00* Test Item Value Reference Range Interpretation Comments Creatine Kinase MB (test code = 34918-5) 0.30 0-5.0 [facility] HospitalTroponin I measurement by highly sensitive enzyme ewansrqbtny6466-96-79 07:45:00* Test Item Value Reference Range Interpretation Comments Troponin I (test code = 85956-7) 0.013 0-0.300 [facility]rum or plasma lipase measurement (enzymatic activity/volume)2019-10-01 07:45:00* Test Item Value Reference Range Interpretation Comments Lipase (test code = 3040-3) 48 8-78 [facility]ererum or plasma sodium measurement (moles/volume)2019-09-02 15:30:00* Test Item Value Reference Range Interpretation Comments Sodium Level (test code = 2951-2) 138 136-145 [facility]ere[facility] or plasma potassium measurement (moles/volume)2019-09-02 15:30:00* Test Item Value Reference Range Interpretation Comments Potassium Level (test code = 2823-3) 3.6 3.5-5.1 [facility]ererum or plasma chloride measurement (moles/volume)2019-09-02 15:30:00* Test Item Value Reference Range Interpretation Comments Chloride Level (test code = 2075-0) 107 98-107 [facility]ererum or plasma carbon dioxide, total measurement (moles/volume)2019-09-02 15:30:00* Test Item Value Reference Range Interpretation Comments Carbon Dioxide Level (test code = 2028-9) 26 -29 [facility]ererum or plasma anion vzd9145-54-91 15:30:00* Test Item Value Reference Range Interpretation Comments Anion Gap (test code = 67396-4) 8.6 8-16 [facility] or plasma urea nitrogen measurement (mass/volume)2019-09-02 15:30:00* Test Item Value Reference Range Interpretation Comments Blood Urea Nitrogen (test code = 3094-0) 11 7-26 [facility]ererum or plasma creatinine measurement (mass/volume)2019-09-02 15:30:00* Test Item Value Reference Range Interpretation Comments Creatinine (test code = 2160-0) 1.05 0.72-1.25 [facility]ererum or plasma urea nitrogen/creatinine mass sadmr2870-16-24 15:30:00* Test Item Value Reference Range Interpretation Comments BUN/Creatinine Ratio (test code = 3097-3) 10 6-25 [facility] HospitalEstimated glomerular filtration rate (GFR) lwvshdyysvauu5144-37-70 15:30:00* Test Item Value Reference Range Interpretation Comments Estimat Glomerular Filtration Rate (test code = 858221379) > 60 >60 Ranges were taken from the National Kidney Disease Education Program and the [facility] literature.Reference ranges:60 or greater: Dcftdv11-32 ( for 3 consecutive months): Chronic kidney disease 15 or less: Kidney failureTexas Orthopedic HospitalGlucose xkiqsmyxnhu7570-56-38 15:30:00* Test Item Value Reference Range Interpretation Comments Glucose Level (test code = PSH9838) 104 74-118 [facility] or plasma calcium measurement (mass/volume)2019-09-02 15:30:00* Test Item Value Reference Range Interpretation Comments Calcium Level (test code = 49854-7) 7.4 8.4-10.2 [facility] or plasma total bilirubin measurement (mass/volume)2019-09-02 15:30:00* Test Item Value Reference Range Interpretation Comments Total Bilirubin (test code = 1975-2) 1.4 0.2-1.2 [facility] HospitalFluoroscopic procedure less than one hour loolfhpy9557-61-24 15:30:00* Test Item Value Reference Range Interpretation Comments Aspartate Amino Transf (AST/SGOT) (test code = Aspartate Amino Transf (AST/SGOT)) 30 5-34 [facility] or plasma alanine aminotransferase measurement (enzymatic activity/volume)2019-09-02 15:30:00* Test Item Value Reference Range Interpretation Comments Alanine Aminotransferase (ALT/SGPT) (test code = 1742-6) 12 0-55 [facility] or plasma protein measurement (mass/volume)2019-09-02 15:30:00* Test Item Value Reference Range Interpretation Comments Total Protein (test code = 2885-2) 6.2 6.5-8.1 [facility] or plasma albumin measurement (mass/volume)2019-09-02 15:30:00* Test Item Value Reference Range Interpretation Comments Albumin (test code = 1751-7) 2.1 3.5-5.0 [facility] HospitalPlasma globulin measurement (mass/volume) 2019-09-02 15:30:00* Test Item Value Reference Range Interpretation Comments Globulin (test code = 31084-7) 4.1 2.3-3.5 [facility] Centererum or plasma albumin/globulin mass seyas6392-93-79 15:30:00* Test Item Value Reference Range Interpretation Comments Albumin/Globulin Ratio (test code = 1759-0) 0.5 0.8-2.0 [facility]ererum or plasma alkaline phosphatase measurement (enzymatic activity/volume)2019-09-02 15:30:00* Test Item Value Reference Range Interpretation Comments Alkaline Phosphatase (test code = 6768-6) 41 40-150 [facility] ULUCGBR7220-15-39 10:42:00 [facility] [address] [address] Patient Name: JOCELIN CORREA MR #: [id number] : 1970 Age/Sex: 49/M Req #: [id number] Adm Physician: DAVI KELLY MD Ordered by: Marissa Mulligan NP Report #: [id number] Location: MED/SURG3 Room/Bed: [facility] Procedure: [id number] US/US ABDOMEN LIMITED Exam Date: 09/02/19 Exam [...] 09/02/19 10 44 COPY TO: MARISSA MULLIGAN EDGE MOLDER [facility]2020-06-22 10:00:00* Test Item Value Reference Range Interpretation Comments Ammonia (test code = 76454-5) 122 31-123 [facility]Blood leukocytes automated count (number/volume)2019-09-02 05:15:00* Test Item Value Reference Range Interpretation Comments White Blood Count (test code = 6690-2) 2.59 4.8-10.8 [facility] HospitalBlood erythrocytes automated count (number/volume)2019-09-02 05:15:00* Test Item Value Reference Range Interpretation Comments Red Blood Count (test code = 789-8) 3.29 4.3-5.7 [facility] HospitalBlood hemoglobin measurement (moles/volume)2019-09-02 05:15:00* Test Item Value Reference Range Interpretation Comments Hemoglobin (test code = 69034-8) 8.0 14.0-18.0 [facility] HospitalAutomated blood hematocrit (volume fraction)2019-09-02 05:15:00* Test Item Value Reference Range Interpretation Comments Hematocrit (test code = 4544-3) 25.9 38.2-49.6 [facility] HospitalAutomated erythrocyte mean corpuscular vgeold2576-26-96 05:15:00* Test Item Value Reference Range Interpretation Comments Mean Corpuscular Volume (test code = 787-2) 78.7 81-99 [facility] HospitalAutomated erythrocyte mean corpuscular hemoglobin (mass per erythrocyte)2019-09-02 05:15:00* Test Item Value Reference Range Interpretation Comments Mean Corpuscular Hemoglobin (test code = 785-6) 24.3 28-32 [facility] HospitalAutomated erythrocyte mean corpuscular hemoglobin concentration measurement (mass/volume)2019-09-02 05:15:00* Test Item Value Reference Range Interpretation Comments Mean Corpuscular Hemoglobin Concent (test code = 786-4) 30.9 31-35 [facility] HospitalRDW UzsKg-Elh8930-92-22 05:15:00* Test Item Value Reference Range Interpretation Comments Red Cell Distribution Width (test code = 39049-9) 27.2 11.7 -14.4 [facility] HospitalAutomated blood platelet count (count/volume)2019-09-02 05:15:00* Test Item Value Reference Range Interpretation Comments Platelet Count (test code = 777-3) 34 140-360 Results repeated and called to REENA GRIFFIN RN at 0619 on 09/02/19 by Michael murillo. Read back and verified.[facility] HospitalAutomated blood segmented neutrophil count as percentage of total kvuriozgli7121-93-82 05:15:00* Test Item Value Reference Range Interpretation Comments Neutrophils (%) (Auto) (test code = 21133-2) 46.0 38.7-80.0 [facility] blood lymphocyte count as percentage ot total bwgardbkzm6296-12-60 05:15:00* Test Item Value Reference Range Interpretation Comments Lymphocytes (%) (Auto) (test code = 736-9) 18.9 18.0-39.1 [facility] HospitalAutomated blood monocyte count as percentage of total aqqbrnumcw9381-56-54 05:15:00* Test Item Value Reference Range Interpretation Comments Monocytes (%) (Auto) (test code = 5905-5) 27.4 4.4-11.3 [facility] HospitalAutiredell memorial hospitaled blood eosinophil count as percentage of total hjsajnsfel5548-83-75 05:15:00* Test Item Value Reference Range Interpretation Comments Eosinophils (%) (Auto) (test code = 713-8) 6.9 0.0-6.0 [facility] HospitalAutomated blood basophil count as percentage of total exsnyvtnjs5963-51-81 05:15:00* Test Item Value Reference Range Interpretation Comments Basophils (%) (Auto) (test code = 706-2) 0.4 0.0-1.0 [facility] HospitalFluoroscopic procedure less than one hour uumswwxg5690-69-99 05:15:00* Test Item Value Reference Range Interpretation Comments IM GRANULOCYTES % (test code = IM GRANULOCYTES %) 0.4 0.0- 1.0 [facility] HospitalAutomated blood neutrophil count 2019-09-02 05:15:00* Test Item Value Reference Range Interpretation Comments Neutrophils # (Auto) (test code = 751-8) 1.2 2.1-6.9 [facility] HospitalBlood lymphocytes count (number/volume) 2019-09-02 05:15:00* Test Item Value Reference Range Interpretation Comments Lymphocytes # (Auto) (test code = 80644-1) 0.5 1.0-3.2 [facility] HospitalBlood monocytes automated count (number/volume)2019-09-02 05:15:00* Test Item Value Reference Range Interpretation Comments Monocytes # (Auto) (test code = 742-7) 0.7 0.2-0.8 [facility] HospitalAutomated blood eosinophil count 2019-09-02 05:15:00* Test Item Value Reference Range Interpretation Comments Eosinophils # (Auto) (test code = 711-2) 0.2 0.0-0.4 [facility] HospitalAutomated blood basophil count (count/volume)2019-09-02 05:15:00* Test Item Value Reference Range Interpretation Comments Basophils # (Auto) (test code = 704-7) 0.0 0.0-0.1 [facility] HospitalFluoroscopic procedure less than one hour hakwlmja0714-09-03 05:15:00* Test Item Value Reference Range Interpretation Comments Absolute Immature Granulocyte (auto ([place] t code = Absolute Immature Granulocyte (auto) 0.01 0-0.1 [facility] HospitalFluoroscopic procedure less than one hour gdjpndxl4088-89-22 05:15:00* Test Item Value Reference Range Interpretation Comments Differential Total Cells Counted (test code = Differen tial Total Cells Counted) 100 [facility] HospitalManual blood neutrophils/100 leukocytes 2019-09-02 05:15:00* Test Item Value Reference Range Interpretation Comments Neutrophils % (Manual) (test code = 78791-9) 66 40-74 [facility] blood band neutrophils form/100 xlxhthmuav0407-29-65 05:15:00* Test Item Value Reference Range Interpretation Comments Band Neutrophils % (test code = 764-1) 1 [facility]100 leukocytes 2019-09-02 05:15:00* Test Item Value Reference Range Interpretation Comments Lymphocytes % (Manual) (test code = 737-7) 16 19-48 [facility] blood monocytes/100 leukocytes 2019-09-02 05:15:00* Test Item Value Reference Range Interpretation Comments Monocytes % (Manual) (test code = 744-3) 14 3.4-9.0 [facility] blood eosinophil count as percentage of total wswjblrqnq0384-26-96 05:15:00* Test Item Value Reference Range Interpretation Comments Eosinophils % (Manual) (test code = 714-6) 3 0-7 [facility] count by estimate (number/volume)2019-09-02 05:15:00* Test Item Value Reference Range Interpretation Comments Platelet Estimate (test code = 22597-6) MARKEDLY DECREASED [facility] HospitalPlatelet wvfphmzknf4312-69-78 05:15:00* Test Item Value Reference Range Interpretation Comments Platelet Morphology Comment (test code = 20002-6) FEW LARGE [facility] polychromasia detection by light yfkxtydogk9793-02-61 05:15:00* Test Item Value Reference Range Interpretation Comments Polychromasia (test code = 67956-2) FEW [facility] hypochromia detection by light njfndvxwis8328-16-42 05:15:00* Test Item Value Reference Range Interpretation Comments Hypochromasia (test code = 728-6) MODERATE [facility] anisocytosis detection by light wyqjzmfgyz3834-53-15 05:15:00* Test Item Value Reference Range Interpretation Comments Anisocytosis (test code = 702-1) MARKED [facility] microcytes detection by light ydyahqtpab3232-97-65 05:15:00* Test Item Value Reference Range Interpretation Comments Microcytosis (test code = 741-9) SLIGHT [facility] target cells detection by light wlvvbfkpwt5667-61-34 05:15:00* Test Item Value Reference Range Interpretation Comments Target Cells (test code = 90115-2) FEW [facility] HospitalBlood dacrocytes detection by light gpdajqzmat6523-00-85 05:15:00* Test Item Value Reference Range Interpretation Comments Tear Drop Cells (test code = 7791-7) FEW [facility] HospitalBlood ovalocytes detection by light jmqkaqbfmw7488-02-28 05:15:00* Test Item Value Reference Range Interpretation Comments Ovalocytes (test code = 774-0) FEW [facility] HospitalElliptocyte qglzvgjmc9480-83-83 05:15:00 * Test Item Value Reference Range Interpretation Comments Elliptocytes (test code = 31617-3) SLIGHT [facility] HospitalRBC ioralvxlzr3069-69-87 05:15:00* Test Item Value Reference Range Interpretation Comments Red Cell Morphology Comment (test code = 6742-1) ABNORMAL [facility]ererum or plasma magnesium measurement (mass/volume)2019-09-02 05:15:00* Test Item Value Reference Range Interpretation Comments Magnesium Level (test code = 40446-7) 1.1 1.3-2.1 Results repeated and called to REENA GRIFFIN RN at 0632 on 09/02/19 by Michael sorensen Read back and verified.[facility] HospitalBlregency [facility] polychromasia detection by light qsaiyqfevr5519-88-73 05:15:00* Test Item Value Reference Range Interpretation Comments Polychromasia (test code = 27171-9) FEW [facility] hypochromia detection by light ohdkroxjcv4717-44-96 05:15:00* Test Item Value Reference Range Interpretation Comments Hypochromasia (test code = 728-6) MODERATE [facility] HospitalBlood anisocytosis detection by light hhnzcksvwq6013-68-44 05:15:00* Test Item Value Reference Range Interpretation Comments Anisocytosis (test code = 702-1) MARKED [facility] microcytes detection by light eyxqhhgatn1805-90-82 05:15:00* Test Item Value Reference Range Interpretation Comments Microcytosis (test code = 741-9) SLIGHT [facility] target cells detection by light gxqwznrady6979-74-97 05:15:00* Test Item Value Reference Range Interpretation Comments Target Cells (test code = 94205-5) FEW [facility] HospitalBlood dacrocytes detection by light zrzhbyfgkt4019-68-86 05:15:00* Test Item Value Reference Range Interpretation Comments Tear Drop Cells (test code = 7791-7) FEW [facility] HospitalBlood ovalocytes detection by light mhgywgbgyf4302-00-60 05:15:00* Test Item Value Reference Range Interpretation Comments Ovalocytes (test code = 774-0) FEW [facility] HospitalElliptocyte smvfrmupm7462-87-79 05:15:00 * Test Item Value Reference Range Interpretation Comments Elliptocytes (test code = 42044-3) SLIGHT [facility] rgydihp4595-01-48 11:50:00* Test Item Value Reference Range Interpretation Comments Blood Culture (test code = 07115529) NO GROWTH AFTER 24 HOURS [facility] aurncta9683-36-00 11:50:00* Test Item Value Reference Range Interpretation Comments Blood Culture (test code = 74019862) NO GROWTH AFTER 5 DAYS, FINAL REPORT [facility] HospitalFluoroscopic procedure less than one hour gqupgang9899-44-04 11:40:00* Test Item Value Reference Range Interpretation [...] under 564(g) of the ACT.Testing performed by [facility] [place] [address] [id number] Orthopedic HospitalCT CHEST VX4707-34-36 10:41:00 [facility] [address] [address] Patient Name: JOCELIN CORREA MR #: [id number] : 1970 Age/Sex: 49/M Req #: [id number] Adm Physician: DAVI KELLY MD Ordered by: Marissa Mulligan NP Report #: [id number] Location: [facility] Room/Bed: [facility] Procedure: [id number] CT/CT CHEST W O Exam Date: 09/01/19 Exam Time: 1000 REPORT STATUS: Signed CT chest without enhance ment CPT code: 34893 INDICATION: Pneumonia, cough TECHNIQUE: Th in collimation [...] on 09/01/19 1058 COPY TO: MARISSA MULLIGAN EDGE MOLDER CHEST SINGLE (PORTABLE)2019-09-01 07:56:[address] [address] Patient Name: JOCELIN CORREA MR #: [id number] : 1970 Age/Sex: 49/M Req #: [id number] Adm Physician: DAVI KELLY MD Ordered by: AMARA GUTHRIE MD Report #: [id number] Location: MED/SURG3 Room/Bed: [facility] Procedure: [id number] DX/CHEST SING LE (PORTABLE) Exam Date: 09/01/19 [...] x-ray if clinically feasible. Signed by: Dr. Snatiago Gipson MD on 09/01/2019 7:57 AM Dictated By: CINDA GIPSON MD 6 Transcribed B y: ZAHEER on 09/01/19756 COPY TO: AMARA GUTHRIE MD Urine color wymmjtgukmlut8328-61-31 06:10:00* Test Item Value Reference Range Interpretation Comments Urine Color (test code = 5778-6) YELLOW YELLOW [facility] HospitalUrine sljvrrf0394-30-69 06:10:00* Test Item Value Reference Range Interpretation Comments Urine Clarity (test code = 34473-2) CLOUDY CLEAR [facility] Centerpecific gravity of Urine by Test strip 2019-09-01 06:10:00* Test Item Value Reference Range Interpretation Comments Urine Specific [place] (test code = 5811-5) 1.020 1.010-1.02 5 [facility] HospitalUrine pH measurement by automated test wzscx5155-53-20 06:10:00* Test Item Value Reference Range Interpretation Comments Urine pH (test code = 08923-0) 7 5-7 [facility] HospitalUrine leukocyte esterase detection by fjivgkee9218-74-56 06:10:00* Test Item Value Reference Range Interpretation Comments Urine Leukocyte Esterase (test code = 5799-2) NEGATIVE NEGATIVE [facility] HospitalUrine nitrite ttcmdpbly0216-74-59 06:10:00* Test Item Value Reference Range Interpretation Comments Urine Nitrite (test code = 91562-4) NEGATIVE NEGATIVE [facility] HospitalUrine protein measurement by test strip (mass/volume)2019-09-01 06:10:00* Test Item Value Reference Range Interpretation Comments Urine Protein (test code = 5804-0) 1+ NEGATIVE [facility] HospitalUrine glucose cabodqrdn7856-57-52 06:10:00* Test Item Value Reference Range Interpretation Comments Urine Glucose (UA) (test code = 2349-9) NEGATIVE NEGATIVE [facility] HospitalUrine ketones detection by automated test zzdgs1831-86-25 06:10:00* Test Item Value Reference Range Interpretation Comments Urine Ketones (test code = 14695-8) NEGATIVE NEGATIVE [facility] HospitalUrine urobilinogen measurement by test strip (mass/volume)2019-09-01 06:10:00* Test Item Value Reference Range Interpretation Comments Urine Urobilinogen (test code = 74465-1) 2 0.2-1 [facility] HospitalUrine total bilirubin measurement (mass/volume)2019-09-01 06:10:00* Test Item Value Reference Range Interpretation Comments Urine Bilirubin (test code = 1978-6) SMALL NEGATIVE [facility] HospitalUrine erythrocytes utlbydrnv8092-86-04 06:10:00* Test Item Value Reference Range Interpretation Comments Urine Blood (test code = 87878-8) LARGE NEGATIVE [facility] HospitalAutomated urine sediment leukocyte count by microscopy (number/high power field)2019-09-01 06:10:00* Test Item Value Reference Range Interpretation Comments Urine WBC (test code = 5821-4) >50 0-5 [facility] HospitalErythrocytes detection in urine sediment by light gdveimmlym3643-81-37 06:10:00* Test Item Value Reference Range Interpretation Comments Urine RBC (test code = 59189-7) >50 0-5 [facility] HospitalBacteria detection in urine sediment by light ockzzzqxeh5406-20-71 06:10:00* Test Item Value Reference Range Interpretation Comments Urine Bacteria (test code = 81193-4) MODERATE NONE [facility] HospitalEpithelial cells detection in urine sediment by light vvcxvgqghw4370-69-98 06:10:00* Test Item Value Reference Range Interpretation Comments Urine Epithelial Cells (test code = 38475-7) RARE NONE [facility] Centertool lactoferrin pdarsqusz8020-94-71 06:10:00* Test Item Value Reference Range Interpretation Comments Stool Lactoferrin (LAB) (test code = 59062-2) NEGATIVE NEGATIVE Testing on stool aspirate specimens is outside continuous improvement manager claims since specime n type not validated on this assay.[facility] Centertool lactoferrin hfbedxntd8156-06-04 06:10:00* Test Item Value Reference Range Interpretation Comments Stool Lactoferrin (LAB) (test code = 69468-8) NEGATIVE NEGATIVE Testing on stool aspirate specimens is outside continuous improvement manager claims since specime n type not validated on this assay.[facility] HospitalCT ABDOMEN/PELVIS F1226-83-46 10:31:00 [facility] [address] [place] [address] Patient Name: JOCELIN CORREA MR #: [id number] : 1970 Age/Sex: 49/M Req #: [id number] [facility] Physician: DAVI KELLY MD Ordered by: AMARA GUTHRIE MD Report #: [id number] Location: MED/SURG3 Room/Bed: [facility] Procedure: [id number] CT/CT ABDOMEN /PELVIS W Exam Date: 08/28/19 [...] The examination was performed according to the [facility] dose-optimization program, which includes automated [...] (aPTT) in platelet poor plasma by coagulation qvbxa4635-53-35 05:30:00* Test Item Value Reference Range Interpretation Comments Activated Partial Thromboplast Time (test code = 60490-3) 43.5 23.8-35.5 [facility] HospitalPhosphorus rzrcrxomndf0315-47-15 05:30:00 * Test Item Value Reference Range Interpretation Comments Phosphorus Level (test code = QJN6610) 2.6 2.3-4.7 [facility] HospitalActivated partial thromboplastin time (aPTT) in platelet poor plasma by coagulation dyyuv4109-93-86 05:30:00* Test Item Value Reference Range Interpretation Comments Activated Partial Thromboplast Time (test code = 07115-5) 43.5 23.8-35.5 [facility] HospitalPhosphorus mzbldajqewj8090-78-43 05:30:00 * Test Item Value Reference Range Interpretation Comments Phosphorus Level (test code = DFI2891) 2.6 2.3-4.7 [facility] Centererum or plasma C reactive protein measurement (mass/volume)2019-08-27 09:00:00* Test Item Value Reference Range Interpretation Comments C-Reactive Protein (test code = 1987-5) 3 0-10 Performed at: [facility] [address] [id number] Director: Lopez Morgan MD, Phone: [phone] Children's Medical Centererum or plasma C reactive protein measurement (mass/volume)2019-08-27 09:00:00* Test Item Value Reference Range Interpretation Comments C-Reactive Protein (test code = 1987-5) 3 0-10 Performed at: [facility] [address] [id number] Director: Lopez Morgan MD, Phone: [phone] Children's Medical Centererum or plasma amylase measurement (enzymatic activity/volume)2019-08-27 02:10:00* Test Item Value Reference Range Interpretation Comments Amylase Level (test code = 1798-8) 65 25-125 [facility]ererum or plasma lipase measurement (enzymatic activity/volume)2019-08-27 02:10:00* Test Item Value Reference Range Interpretation Comments Lipase (test code = 3040-3) 22 8-78 [facility]ererum or plasma amylase measurement (enzymatic activity/volume)2019-08-27 02:10:00* Test Item Value Reference Range Interpretation Comments Amylase Level (test code = 1798-8) 65 25-125 [facility] HospitalUrine sodium measurement (moles/volume) 2019-08-27 00:55:00* Test Item Value Reference Range Interpretation Comments Urine Random Sodium (test code = 2955-3) 60 [facility] HospitalUrine creatinine measurement (mass/volume)2019-08-27 00:55:00* Test Item Value Reference Range Interpretation Comments Urine Creatinine (test code = 2161-8) 228.30 63-166 [facility] HospitalUrine sodium measurement (moles/volume) 2019-08-27 00:55:00* Test Item Value Reference Range Interpretation Comments Urine Random Sodium (test code = 2955-3) 60 [facility] HospitalUrine creatinine measurement (mass/volume)2019-08-27 00:55:00* Test Item Value Reference Range Interpretation Comments Urine Creatinine (test code = 2161-8) 228.30 63-166 [facility] HospitalUS RENAL RETROPERITONEAL GTHZ1223-52-10 13:47:00 [facility] [address] [address] Patient Name: JOCELIN CORREA MR #: [id number] : 1970 Age/Sex: 49/M Req #: [id number] Adm Physician: DAVI KELLY MD Ordered by: APPLE QUIROZ MD Report #: [id number] Location: [facility] [place]Bed[place] [facility] [place] [facility] [place] Procedure: [id number] US/US RENAL RET ROPERITONEAL COMP Exam Date: [...] Signed By: DAO CONNELLY MD on 08/26/19 1349 Transcribed By: ZAHEER on 08/26/19 1349 COPY TO: APPLE QUIROZ MD US ABDOMEN LIMITED 2019-08-26 11:13:00 [address] [address] Patient Name: JOCELIN CORREA MR #: [id number] : 1970 Age/Sex: 49/M Req #: [id number] Adm Physician: DAVI KELLY MD Ordered by: AMARA GUTHRIE MD Report #: [id number] Location: MED/SURG3 Room/Bed: [facility] [place] [facility] [place] Procedure: [id number] US/US ABDOMEN LIMITED Exam Date: 08/26/19 Exam [...] A M Dictated By: DAO CONNELLY MD 112 Transcribed By: ZAHEER on 08/26/19 1120 COPY TO: AMARA MCGINNIS MD Automated reticulocyte count as percentage of total zpqwrffjbtri6067-91-25 06:30:00* Test Item Value Reference Range Interpretation Comments Percent Reticulocyte Count (test code = 50475-3) 0.6 0.8-2 .2 [facility]ererum or plasma iron measurement (mass/volume)2019-08-26 06:30:00* Test Item Value Reference Range Interpretation Comments Iron Level (test code = 2498-4) 36 65-175 [facility]ererum or plasma iron binding capacity measurement (mass/volume)2019-08-26 06:30:00* Test Item Value Reference Range Interpretation Comments Total Iron Binding Capacity (test code = 2500-7) 421 261-4 78 [facility]ererum or plasma iron saturation measurement (mass fraction)2019-08-26 06:30:00* Test Item Value Reference Range Interpretation Comments Percent Iron Saturation (test code = 2502-3) 9 15-50 [facility]ererum or plasma transferrin measurement (mass/volume)2019-08-26 06:30:00* Test Item Value Reference Range Interpretation Comments Transferrin (test code = 3034-6) 301 174-364 [facility]ererum or plasma ferritin measurement (mass/volume)2019-08-26 06:30:00* Test Item Value Reference Range Interpretation Comments Ferritin (test code = 2276-4) 27.43 21.81-274.66 [facility]ererum or plasma creatine kinase measurement (enzymatic activity/volume)2019-08-26 06:30:00* Test Item Value Reference Range Interpretation Comments Creatine Kinase (test code = 2157-6) 82 30-200 [facility] Centererum or plasma creatine kinase MB measurement (mass/volume)2019-08-26 06:30:00* Test Item Value Reference Range Interpretation Comments Creatine Kinase MB (test code = 29364-3) 0.60 0-5.0 [facility] HospitalTroponin I measurement by highly sensitive enzyme qwdoljhyszd5807-52-62 06:30:00* Test Item Value Reference Range Interpretation Comments Troponin I (test code = 82384-3) 0.006 0-0.300 [facility] HospitalBlood cobalamin (vitamin B12) measurement (mass/volume)2019-08-26 06:30:00* Test Item Value Reference Range Interpretation Comments Vitamin B12 Level (test code = 11022-9) 1261 213-816 [facility]ererum or plasma folate measurement (mass/volume)2019-08-26 06:30:00* Test Item Value Reference Range Interpretation Comments Folate (test code = 2284-8) > 40.0 7.0-15.4 [facility] Centererum or plasma folate measurement (mass/volume)2019-08-26 06:30:00* Test Item Value Reference Range Interpretation Comments Folate (test code = 2284-8) > 40.0 7.0-15.4 [facility] HospitalManual basophil kliuhpfirj3391-49-99 05:50:00* Test Item Value Reference Range Interpretation Comments Basophils % (Manual) (test code = 32031-8) 2 0-1.5 [facility] HospitalProthrombin time (PT) in platelet poor plasma by coagulation aezns7341-15-89 05:50:00* Test Item Value Reference Range Interpretation Comments Prothrombin Time (test code = 5902-2) 17.2 11.9-14.5 [facility] HospitalINR in Platelet poor plasma by Coagulation yyktv6043-97-16 05:50:00* Test Item Value Reference Range Interpretation Comments Prothromb Time International Ratio (test code = 6301-6) 1.31 Oral Anticoagulant Therapy INR Values:1. Low Intensity Therapy 1.5 - 2.02 . Moderate Intensity Therapy 2.0 - 3.03. High Intensity Therapy(1) 2.5 - 3. 54. High Intensity Therapy(2) 3.0 - 4.05. Panic Value INR > 5.0 [facility] plasma hepatitis C virus RNA detection by probe and target amplification haxuct6387-68-92 05:50:00* Test Item Value Reference Range Interpretation Comments Hepatitis C RNA Qualitative (PCR) (test code = 97517-9) Negative Negative Negative: HCV RNA Not DetectedPerformed at: [facility] Lab[address] [id number] Director: Denisse Dee MD, Phone: [phone] [address] [place], [place] [address]erum or plasma faouf-1-tqxcexjntie.tumor marker measurement (mass/volume)2019-08-25 05:50:00* Test Item Value Reference Range Interpretation Comments Alpha Fetoprotein (test code = 73107-5) 3.3 0.0-8.3 [facility] Electrochemiluminescence Immunoassay(ECLIA)Values obtained wit h different assay methods or kits cannotbe used interchangeably. Results cannot be interpreted asabsolute evidence of the presence or absence of malignantdisea se.This test is not interpretable in females.Performed at: [facility] [address] [id number] Director: Lopez Morgan MD, Phone: [phone] Orthopedic HospitalManual basophil qudbanjhxv0890-85-93 05:50:00* Test Item Value Reference Range Interpretation Comments Basophils % (Manual) (test code = 65244-0) 2 0-1.5 [facility] hepatitis C virus RNA detection by probe and target amplification cbqedp9925-85-06 05:50:00* Test Item Value Reference Range Interpretation Comments Hepatitis C RNA Qualitative (PCR) (test code = 43463-9) Negative Negative Negative: HCV RNA Not DetectedPerformed at: - [facility] [id number] Director: Denisse Dee MD, Phone: [phone] 44[facility] Centererum or plasma bdkoc-7-nsvneklordo.tumor marker measurement (mass/volume)2019-08-25 05:50:00* Test Item Value Reference Range Interpretation Comments Alpha Fetoprotein (test code = 89056-7) 3.3 0.0-8.3 [facility] Electrochemiluminescence Immunoassay(ECLIA)Values obtained wit h different assay methods or kits cannotbe used interchangeably. Results cannot be interpreted asabsolute evidence of the presence or absence of malignantdisea se.This test is not interpretable in females.Performed at: [employer] [facility] [address] [id number] Director: Lopez Morgan MD, Phone: [phone] Orthopedic HospitalCHEST 2 YCCJG4653-08-21 03:52:00 [place] [address] Patient Name: JOCELIN CORREA MR #: [id number] : 1970 Age/Sex: 49/M Req #: [id number] Adm Physician: DAVI KELLY MD Ordered by: JACQUI BECERRA EDGE MOLDER Report #: [id number] Location: MED/SURG3 Room/Bed: [facility] Procedure: [id number] DX/CHEST 2 VIEW S Exam Date: 08/25/19 [...] NP Fluoroscopic procedure less than one hour hsksbwsy7780-33-47 11:10:00* Test Item Value Reference Range Interpretation Comments Lactic Acid Level (test code = Lactic Acid Level) 1.1 0.5- 2.0 [facility] HospitalFluoroscopic procedure less than one hour qptizxgl6192-44-80 11:10:00* Test Item Value Reference Range Interpretation Comments Lactic Acid Level (test code = Lactic Acid Level) 1.1 0.5- 2.0 [facility] HospitalCT ABDOMEN/PELVIS G1109-69-28 14:47:00 [place] [address] Patient Name: JOCELIN CORREA MR #: [id number] : 1970 Age/Sex: 49/M Req #: [id number] [facility] Physician: Ordered by: RACHAEL HAN rt #: [id number] Location: ER Room/Be d: Procedure: CT/CT ABDOMEN/P NEVA W Exam Date: 08/23/19 [...] Count (test code = 6690-2) 2.51 4.8-10.8 [facility]Blreg[facility] erythrocytes automated count (number/volume)2019-08-16 05:10:00* Test Item Value Reference Range Interpretation Comments Red Blood Count (test code = 789-8) 3.18 4.3-5.7 [facility] HospitalBlood hemoglobin measurement (moles/volume)2019-08-16 05:10:00* Test Item Value Reference Range Interpretation Comments Hemoglobin (test code = 44195-4) 7.0 14.0-18.0 [facility] HospitalAutomated blood hematocrit (volume fraction)2019-08-16 05:10:00* Test Item Value Reference Range Interpretation Comments Hematocrit (test code = 4544-3) 24.3 38.2-49.6 [facility] HospitalAutomated erythrocyte mean corpuscular wfyajv2951-08-97 05:10:00* Test Item Value Reference Range Interpretation Comments Mean Corpuscular Volume (test code = 787-2) 76.4 81-99 [facility] HospitalAutomated erythrocyte mean corpuscular hemoglobin (mass per erythrocyte)2019-08-16 05:10:00* Test Item Value Reference Range Interpretation Comments Mean Corpuscular Hemoglobin (test code = 785-6) 22.0 28-32 [facility] HospitalAutomated erythrocyte mean corpuscular hemoglobin concentration measurement (mass/volume)2019-08-16 05:10:00* Test Item Value Reference Range Interpretation Comments Mean Corpuscular Hemoglobin Concent (test code = 786-4) 28.8 31-35 [facility] HospitalRDW XogSo-Bja7768-35-05 05:10:00* Test Item Value Reference Range Interpretation Comments Red Cell Distribution Width (test code = 19889-1) 20.0 11.7 -14.4 [facility] HospitalAutomated blood platelet count (count/volume)2019-08-16 05:10:00* Test Item Value Reference Range Interpretation Comments Platelet Count (test code = 777-3) 50 140-360 [facility] HospitalAutomated blood segmented neutrophil count as percentage of total ookvztzqtb1042-77-40 05:10:00* Test Item Value Reference Range Interpretation Comments Neutrophils (%) (Auto) (test code = 53311-2) 52.6 38.7-80.0 [facility] HospitalAutomated blood lymphocyte count as percentage ot total vctcakhiue1586-66-41 05:10:00* Test Item Value Reference Range Interpretation Comments Lymphocytes (%) (Auto) (test code = 736-9) 17.9 18.0-39.1 [facility] HospitalAutomated blood monocyte count as percentage of total dpujhbkeih2236-97-74 05:10:00* Test Item Value Reference Range Interpretation Comments Monocytes (%) (Auto) (test code = 5905-5) 18.3 4.4-11.3 [facility] HospitalAutomated blood eosinophil count as percentage of total jzltxryrun6167-34-42 05:10:00* Test Item Value Reference Range Interpretation Comments Eosinophils (%) (Auto) (test code = 713-8) 10.0 0.0-6.0 [facility] HospitalAutomated blood basophil count as percentage of total ppjswdapuk6283-46-06 05:10:00* Test Item Value Reference Range Interpretation Comments Basophils (%) (Auto) (test code = 706-2) 0.8 0.0-1.0 [facility] HospitalFluoroscopic procedure less than one hour aazubzan4851-38-09 05:10:00* Test Item Value Reference Range Interpretation Comments IM GRANULOCYTES % (test code = IM GRANULOCYTES %) 0.4 0.0- 1.0 [facility] HospitalAutomated blood neutrophil count 2019-08-16 05:10:00* Test Item Value Reference Range Interpretation Comments Neutrophils # (Auto) (test code = 751-8) 1.3 2.1-6.9 [facility] count (number/volume) 2019-08-16 05:10:00* Test Item Value Reference Range Interpretation Comments Lymphocytes # (Auto) (test code = 75237-4) 0.5 1.0-3.2 [facility] monocytes automated count (number/volume)2019-08-16 05:10:00* Test Item Value Reference Range Interpretation Comments Monocytes # (Auto) (test code = 742-7) 0.5 0.2-0.8 [facility] HospitalAutomated blood eosinophil count 2019-08-16 05:10:00* Test Item Value Reference Range Interpretation Comments Eosinophils # (Auto) (test code = 711-2) 0.3 0.0-0.4 [facility] HospitalAutomated blood basophil count (count/volume)2019-08-16 05:10:00* Test Item Value Reference Range Interpretation Comments Basophils # (Auto) (test code = 704-7) 0.0 0.0-0.1 [facility] HospitalFluoroscopic procedure less than one hour ckbdzjip5220-23-07 05:10:00* Test Item Value Reference Range Interpretation Comments Absolute Immature Granulocyte (auto ([place] t code = Absolute Immature Granulocyte (auto) 0.01 0-0.1 [facility] HospitalBlood platelets count by estimate (number/volume)2019-08-16 05:10:00* Test Item Value Reference Range Interpretation Comments Platelet Estimate (test code = 20055-3) MARKEDLY DECREASED [facility] HospitalPlatelet vmkyankziz1765-34-76 05:10:00* Test Item Value Reference Range Interpretation Comments Platelet Morphology Comment (test code = 82731-1) NORMAL NO EDTA PLT CLUMPS SEENTexas Orthopedic HospitalBlood hypochromia detection by light rksbtwiqof0250-78-37 05:10:00* Test Item Value Reference Range Interpretation Comments Hypochromasia (test code = 728-6) MODERATE [facility]ere[facility] plasma sodium measurement (moles/volume)2019-08-16 05:10:00* Test Item Value Reference Range Interpretation Comments Sodium Level (test code = 2951-2) 130 136-145 [facility]ererum or plasma potassium measurement (moles/volume)2019-08-16 05:10:00* Test Item Value Reference Range Interpretation Comments Potassium Level (test code = 2823-3) 3.3 3.5-5.1 [facility]ererum or plasma chloride measurement (moles/volume)2019-08-16 05:10:00* Test Item Value Reference Range Interpretation Comments Chloride Level (test code = 2075-0) 97 98-107 [facility]ererum or plasma carbon dioxide, total measurement (moles/volume)2019-08-16 05:10:00* Test Item Value Reference Range Interpretation Comments Carbon Dioxide Level (test code = 2028-9) 26 22-29 [facility]ererum or plasma anion jgj5589-50-56 05:10:00* Test Item Value Reference Range Interpretation Comments Anion Gap (test code = 53902-7) 10.3 8-16 [facility]ere[facility] or plasma urea nitrogen measurement (mass/volume)2019-08-16 05:10:00* Test Item Value Reference Range Interpretation Comments Blood Urea Nitrogen (test code = 3094-0) 11 7-26 [facility]ererum or plasma creatinine measurement (mass/volume)2019-08-16 05:10:00* Test Item Value Reference Range Interpretation Comments Creatinine (test code = 2160-0) 1.02 0.72-1.25 [facility]ererum or plasma urea nitrogen/creatinine mass kitld7750-55-77 05:10:00* Test Item Value Reference Range Interpretation Comments BUN/Creatinine Ratio (test code = 3097-3) 11 6-25 [facility] HospitalEstimated glomerular filtration rate (GFR) eymttautboxql9738-39-94 05:10:00* Test Item Value Reference Range Interpretation Comments Estimat Glomerular Filtration Rate (test code = 221640009) > 60 >60 Ranges were taken from the National Kidney Disease Education Program and the [facility] literature.Reference ranges:60 or greater: Euzkfl61-89 ( for 3 consecutive months): Chronic kidney disease 15 or less: Kidney failureTexas Orthopedic HospitalGlucose torfognhxqo8656-37-40 05:10:00* Test Item Value Reference Range Interpretation Comments Glucose Level (test code = AXQ1152) 83 74-118 [facility]ere[facility] or plasma calcium measurement (mass/volume)2019-08-16 05:10:00* Test Item Value Reference Range Interpretation Comments Calcium Level (test code = 62756-7) 8.0 8.4-10.2 [facility]ererum or plasma total bilirubin measurement (mass/volume)2019-08-16 05:10:00* Test Item Value Reference Range Interpretation Comments Total Bilirubin (test code = 1975-2) 2.3 0.2-1.2 [facility] HospitalFluoroscopic procedure less than one hour titizqhb8602-46-14 05:10:00* Test Item Value Reference Range Interpretation Comments Aspartate Amino Transf (AST/SGOT) (test code = Aspartate Amino Transf (AST/SGOT)) 56 5-34 [facility]ererum or plasma alanine aminotransferase measurement (enzymatic activity/volume)2019-08-16 05:10:00* Test Item Value Reference Range Interpretation Comments Alanine Aminotransferase (ALT/SGPT) (test code = 1742-6) 20 0-55 [facility] HospitalAmmonia Bty-yKud3885-82-05 05:10:00* Test Item Value Reference Range Interpretation Comments Ammonia (test code = 93798-9) 75 31-123 [facility]ere[facility] or plasma protein measurement (mass/volume)2019-08-16 05:10:00* Test Item Value Reference Range Interpretation Comments Total Protein (test code = 2885-2) 7.9 6.5-8.1 [facility]ererum or plasma albumin measurement (mass/volume)2019-08-16 05:10:00* Test Item Value Reference Range Interpretation Comments Albumin (test code = 1751-7) 2.7 3.5-5.0 [facility] HospitalPlasma globulin measurement (mass/volume) 2019-08-16 05:10:00* Test Item Value Reference Range Interpretation Comments Globulin (test code = 22044-7) 5.2 2.3-3.5 [facility]ererum or plasma albumin/globulin mass uoccr0114-73-92 05:10:00* Test Item Value Reference Range Interpretation Comments Albumin/Globulin Ratio (test code = 1759-0) 0.5 0.8-2.0 [facility]ererum or plasma alkaline phosphatase measurement (enzymatic activity/volume)2019-08-16 05:10:00* Test Item Value Reference Range Interpretation Comments Alkaline Phosphatase (test code = 6768-6) 74 40-150 [facility]ererum or plasma lipase measurement (enzymatic activity/volume)2019-08-16 05:10:00* Test Item Value Reference Range Interpretation Comments Lipase (test code = 3040-3) 24 8-78 [facility] Centerto gastrointestinal hemoglobin dxclflkiu5864-44-98 20:05:00* Test Item Value Reference Range Interpretation Comments Stool Occult Blood (test code = 2335-8) NEGATIVE NEGATIVE [facility] gastrointestinal hemoglobin cvpkdcorn8023-98-16 20:05:00* Test Item Value Reference Range Interpretation Comments Stool Occult Blood (test code = 2335-8) NEGATIVE NEGATIVE [facility] gastrointestinal hemoglobin lxvyxpgud9996-91-27 20:05:00* Test Item Value Reference Range Interpretation Comments Stool Occult Blood (test code = 2335-8) NEGATIVE NEGATIVE [facility] HospitalBlood polychromasia detection by light oqwvtvrsdi8774-96-77 05:15:00* Test Item Value Reference Range Interpretation Comments Polychromasia (test code = 50678-7) FEW [facility] HospitalBlreg[facility] [place] anisocytosis detection by light cgnfuubktb5830-96-77 05:15:00* Test Item Value Reference Range Interpretation Comments Anisocytosis (test code = 702-1) MODERATE [facility] HospitalBlood ovalocytes detection by light glvcreorel0598-76-37 05:15:00* Test Item Value Reference Range Interpretation Comments Ovalocytes (test code = 774-0) MODERATE [facility] HospitalRBC rvfffkeamj3456-20-63 05:15:00* Test Item Value Reference Range Interpretation Comments Red Cell Morphology Comment (test code = 6742-1) ABNORMAL [facility] or plasma magnesium measurement (mass/volume)2019-08-15 05:15:00* Test Item Value Reference Range Interpretation Comments Magnesium Level (test code = 04952-0) 1.6 1.3-2.1 [facility]ererum or plasma creatine kinase measurement (enzymatic activity/volume)2019-08-15 05:15:00* Test Item Value Reference Range Interpretation Comments Creatine Kinase (test code = 2157-6) 253 30-200 [facility] HospitalUrine color qlpftpwuxxmvk8016-61-50 08:54:00* Test Item Value Reference Range Interpretation Comments Urine Color (test code = 5778-6) YELLOW YELLOW [facility] HospitalUrine ujeqigm1657-33-67 08:54:00* Test Item Value Reference Range Interpretation Comments Urine Clarity (test code = 66103-1) CLEAR CLEAR [facility] Centerpecific gravity of Urine by Test strip 2019-08-14 08:54:00* Test Item Value Reference Range Interpretation Comments Urine Specific [place] (test code = 5811-5) 1.015 1.010-1.02 5 [facility] HospitalUrine pH measurement by automated test hjjmd3875-03-51 08:54:00* Test Item Value Reference Range Interpretation Comments Urine pH (test code = 48635-6) 7 5-7 [facility] HospitalUrine leukocyte esterase detection by phjkzstb3689-06-23 08:54:00* Test Item Value Reference Range Interpretation Comments Urine Leukocyte Esterase (test code = 5799-2) NEGATIVE NEGATIVE [facility] HospitalUrine nitrite hjtcjsjon2351-81-67 08:54:00* Test Item Value Reference Range Interpretation Comments Urine Nitrite (test code = 63712-1) NEGATIVE NEGATIVE [facility] HospitalUrine protein measurement by test strip (mass/volume)2019-08-14 08:54:00* Test Item Value Reference Range Interpretation Comments Urine Protein (test code = 5804-0) NEGATIVE NEGATIVE [facility] HospitalUrine glucose xbynuyinx5404-39-69 08:54:00* Test Item Value Reference Range Interpretation Comments Urine Glucose (UA) (test code = 2349-9) NEGATIVE NEGATIVE [facility] HospitalUrine ketones detection by automated test hfgww7597-37-94 08:54:00* Test Item Value Reference Range Interpretation Comments Urine Ketones (test code = 35705-6) NEGATIVE NEGATIVE [facility] HospitalUrine opiates screening zuxo7164-44-10 08:54:00* Test Item Value Reference Range Interpretation Comments Urine Opiates Screen (test code = 51483-6) NEGATIVE NEGATIVE ALL TESTS PERFORMED MANUALLY ON [employer] TOX/SEE TESTTexas Orthopedic HospitalBarbiturates screen, qpcyu8622-39-85 08:54:00* Test Item Value Reference Range Interpretation Comments Urine Barbiturates Screen (test code = 249491840) NEGATIVE NEGA TIVE [facility] HospitalUrine phencyclidine detection by screening ntsazr8183-44-41 08:54:00* Test Item Value Reference Range Interpretation Comments Urine Phencyclidine Screen (test code = 83695-5) NEGATIVE NEGAT ELSIE [facility] HospitalUrine amphetamines detection by screen method > 1000 ng/lI5014-07-96 08:54:00* Test Item Value Reference Range Interpretation Comments Urine Amphetamines Screen (test code = 36758-3) NEGATIVE NEGATI VE [facility] HospitalFluoroscopic procedure less than one hour atqefrps9234-92-10 08:54:00* Test Item Value Reference Range Interpretation Comments Urine Methamphetamines Screen (test code = Urine Metha mphetamines Screen) NEGATIVE NEGATIVE [facility] HospitalUrine benzodiazepines detection by screening oebmma6532-15-81 08:54:00* Test Item Value Reference Range Interpretation Comments Urine Benzodiazepines Screen (test code = 54465-7) NEGATIVE NEG ATIVE [facility] HospitalUrine cocaine measurement (mass/volume) 2019-08-14 08:54:00* Test Item Value Reference Range Interpretation Comments Urine Cocaine Screen (test code = 3398-5) NEGATIVE NEGATIVE [facility] HospitalUrine cannabinoids detection by screening gnlrrk3227-46-60 08:54:00* Test Item Value Reference Range Interpretation Comments Urine Cannabinoids Screen (test code = 47238-5) NEGATIVE NEGATI VE THESE RESULTS ARE FOR MEDICAL TREATMENT ONLYTHIS REPORT CONTAINS UNCONFIR MED SCREENING RESULTS*POSITIVE RESULTS WILL BE CONFIRMED BY REFERENCE LAB UPON R EQUEST CUT-OFFDRUG CLASS CONCENTRATION ng/mLAmphetamines 1000Methamphetamines 1000Cocaine 300Opiate 300Phencyc lidine 25Cannabinoid 50Barbiturates 300Benzodiazepine 300Methadone 300[facility] HospitalUrine methadone toenry4503-19-47 08:54:00* Test Item Value Reference Range Interpretation Comments Urine Methadone Screen (test code = 27793-5) NEGATIVE NEGATIVE THESE RESULTS ARE FOR MEDICAL TREATMENT ONLYTHIS REPORT CONTAINS UNCONFIR MED SCREENING RESULTS*POSITIVE RESULTS WILL BE CONFIRMED BY REFERENCE LAB UPON R EQUEST CUT-OFFDRUG CLASS CONCENTRATION ng/mLAmphetamines 1000Methamphetamines 1000Cocaine Metabolite 300Opiate 300Phencyc lidine 25Cannabinoid 50Barbiturates 300Benzodiazepine 300Methadone 300[facility] HospitalUrine urobilinogen measurement by test strip (mass/volume)2019-08-14 08:54:00* Test Item Value Reference Range Interpretation Comments Urine Urobilinogen (test code = 94403-3) 0.2 0.2-1 [facility] HospitalUrine total bilirubin measurement (mass/volume)2019-08-14 08:54:00* Test Item Value Reference Range Interpretation Comments Urine Bilirubin (test code = 1978-6) NEGATIVE NEGATIVE [facility] HospitalUrine erythrocytes gotbuzqbe6720-56-01 08:54:00* Test Item Value Reference Range Interpretation Comments Urine Blood (test code = 75709-0) MODERATE NEGATIVE [facility] HospitalAutomated urine sediment leukocyte count by microscopy (number/high power field)2019-08-14 08:54:00* Test Item Value Reference Range Interpretation Comments Urine WBC (test code = 5821-4) 21-50 0-5 [facility] HospitalErythrocytes detection in urine sediment by light fmmighrxyf7847-66-31 08:54:00* Test Item Value Reference Range Interpretation Comments Urine RBC (test code = 44333-0) >50 0-5 [facility] HospitalBacteria detection in urine sediment by light twbvdqwayn3816-80-89 08:54:00* Test Item Value Reference Range Interpretation Comments Urine Bacteria (test code = 69394-1) FEW NONE [facility] HospitalEpithelial cells detection in urine sediment by light lqcuqdeopd4423-40-22 08:54:00* Test Item Value Reference Range Interpretation Comments Urine Epithelial Cells (test code = 81877-9) MANY NONE [facility] HospitalFluoroscopic procedure less than one hour czgqmjyp3403-13-08 08:54:00* Test Item Value Reference Range Interpretation [...] complexity tests.Testing performed by [facility] [address] [id number] Director: Francisco Javier Barth M.D.CLIA # [id number] Orthopedic Hospital Bacterial urine hqfncwr4328-89-35 08:54:00* Test Item Value Reference Range Interpretation Comments Urine Culture (test code = 630-4) ENTEROCOCCUS FAECALIS [facility] HospitalUrine opiates screening wtcg1886-63-20 08:54:00* Test Item Value Reference Range Interpretation Comments Urine Opiates Screen (test code = 64254-4) NEGATIVE NEGATIVE ALL TESTS PERFORMED MANUALLY ON [employer] TOX/SEE TESTTexas Orthopedic HospitalBarbiturates screen, txxjr5893-88-50 08:54:00* Test Item Value Reference Range Interpretation Comments Urine Barbiturates Screen (test code = 952384596) NEGATIVE NEGA TIVE [facility] HospitalUrine phencyclidine detection by screening apdzjl8554-50-86 08:54:00* Test Item Value Reference Range Interpretation Comments Urine Phencyclidine Screen (test code = 49572-1) NEGATIVE NEGAT ELSIE [facility] HospitalUrine amphetamines detection by screen method > 1000 ng/kR8394-51-60 08:54:00* Test Item Value Reference Range Interpretation Comments Urine Amphetamines Screen (test code = 33431-7) NEGATIVE NEGATI VE [facility] HospitalFluoroscopic procedure less than one hour oxwdecey5404-42-37 08:54:00* Test Item Value Reference Range Interpretation Comments Urine Methamphetamines Screen (test code = Urine Metha mphetamines Screen) NEGATIVE NEGATIVE [facility] HospitalUrine benzodiazepines detection by screening ezjyab7923-56-50 08:54:00* Test Item Value Reference Range Interpretation Comments Urine Benzodiazepines Screen (test code = 73098-1) NEGATIVE NEG ATIVE [facility] HospitalUrine cocaine measurement (mass/volume) 2019-08-14 08:54:00* Test Item Value Reference Range Interpretation Comments Urine Cocaine Screen (test code = 3398-5) NEGATIVE NEGATIVE [facility] HospitalUrine cannabinoids detection by screening hxqexf7457-05-19 08:54:00* Test Item Value Reference Range Interpretation Comments Urine Cannabinoids Screen (test code = 88727-1) NEGATIVE NEGATI VE THESE RESULTS ARE FOR MEDICAL TREATMENT ONLYTHIS REPORT CONTAINS UNCONFIR MED SCREENING RESULTS*POSITIVE RESULTS WILL BE CONFIRMED BY REFERENCE LAB UPON R EQUEST CUT-OFFDRUG CLASS CONCENTRATION ng/mLAmphetamines 1000Methamphetamines 1000Cocaine 300Opiate 300Phencyc lidine 25Cannabinoid 50Barbiturates 300Benzodiazepine 300Methadone 300[facility]vineUrine methadone qoypvc7956-35-55 08:54:00* Test Item Value Reference Range Interpretation Comments Urine Methadone Screen (test code = 46924-1) NEGATIVE NEGATIVE THESE RESULTS ARE FOR MEDICAL TREATMENT ONLYTHIS REPORT CONTAINS UNCONFIR MED SCREENING RESULTS*POSITIVE RESULTS WILL BE CONFIRMED BY REFERENCE LAB UPON R EQUEST CUT-OFFDRUG CLASS CONCENTRATION ng/mLAmphetamines 1000Methamphetamines 1000Cocaine Metabolite 300Opiate 300Phencyc lidine 25Cannabinoid 50Barbiturates 300Benzodiazepine 300Methadone 300[facility] HospitalBacterial urine itzieng0897-37-92 08:54:00* Test Item Value Reference Range Interpretation Comments Urine Culture (test code = 630-4) ENTEROCOCCUS FAECALIS [facility] opiates screening dmrk3935-23-81 08:54:00* Test Item Value Reference Range Interpretation Comments Urine Opiates Screen (test code = 21492-2) NEGATIVE NEGATIVE ALL TESTS PERFORMED MANUALLY ON BIORAD TOX/SEE TESTTexas Orthopedic HospitalBarbiturates screen, jancy0100-51-63 08:54:00* Test Item Value Reference Range Interpretation Comments Urine Barbiturates Screen (test code = 606081356) NEGATIVE NEGA TIVE [facility] HospitalUrine phencyclidine detection by screening yqjuul5935-21-95 08:54:00* Test Item Value Reference Range Interpretation Comments Urine Phencyclidine Screen (test code = 46214-1) NEGATIVE NEGAT ELSIE [facility] HospitalUrine amphetamines detection by screen method > 1000 ng/jI6779-13-62 08:54:00* Test Item Value Reference Range Interpretation Comments Urine Amphetamines Screen (test code = 85351-2) NEGATIVE NEGATI VE [facility] HospitalFluoroscopic procedure less than one hour quehlcqi3148-91-20 08:54:00* Test Item Value Reference Range Interpretation Comments Urine Methamphetamines Screen (test code = Urine Metha mphetamines Screen) NEGATIVE NEGATIVE [facility] HospitalUrine benzodiazepines detection by screening cbaalk7429-28-29 08:54:00* Test Item Value Reference Range Interpretation Comments Urine Benzodiazepines Screen (test code = 83984-4) NEGATIVE NEG ATIVE [facility] HospitalUrine cocaine measurement (mass/volume) 2019-08-14 08:54:00* Test Item Value Reference Range Interpretation Comments Urine Cocaine Screen (test code = 3398-5) NEGATIVE NEGATIVE [facility] HospitalUrine cannabinoids detection by screening hxckqj6379-68-24 08:54:00* Test Item Value Reference Range Interpretation Comments Urine Cannabinoids Screen (test code = 79845-7) NEGATIVE NEGATI VE THESE RESULTS ARE FOR MEDICAL TREATMENT ONLYTHIS REPORT CONTAINS UNCONFIR MED SCREENING RESULTS*POSITIVE RESULTS WILL BE CONFIRMED BY REFERENCE LAB UPON R EQUEST CUT-OFFDRUG CLASS CONCENTRATION ng/mLAmphetamines 1000Methamphetamines 1000Cocaine 300Opiate 300Phencyc lidine 25Cannabinoid 50Barbiturates 300Benzodiazepine 300Methadone 300[facility] methadone lhrevf0278-17-97 08:54:00* Test Item Value Reference Range Interpretation Comments Urine Methadone Screen (test code = 22526-4) NEGATIVE NEGATIVE THESE RESULTS ARE FOR MEDICAL TREATMENT ONLYTHIS REPORT CONTAINS UNCONFIR MED SCREENING RESULTS*POSITIVE RESULTS WILL BE CONFIRMED BY REFERENCE LAB UPON R EQUEST CUT-OFFDRUG CLASS CONCENTRATION ng/mLAmphetamines 1000Methamphetamines 1000Cocaine Metabolite 300Opiate 300Phencyc lidine 25Cannabinoid 50Barbiturates 300Benzodiazepine 300Methadone 300[facility]vineBacterial urine ywksusl6560-16-85 08:54:00* Test Item Value Reference Range Interpretation Comments Urine Culture (test code = 630-4) ENTEROCOCCUS FAECALIS [facility]vineCT [facility]BDOM[facility]/PELVIS [id number] 08:48:00 [facility] [address] [address] Patient Name: JOCELIN CORREA MR #: [id number] : 1970 Age/Sex: 49/M Req #: [id number] Adm Physician: Ordered by: ABA LOYA MD Report #: [id number] Location: ER Room/Bed: Procedure: CT/CT A BDOMEN/PELVIS [...] COPY TO: ABA LOYA MD CT BRAIN KV1333-17-63 08:33:00 [address] [address] Patient Name: JOCELIN CORREA MR #: [id number] : 1970 Age/Sex: 49/M Req #: [id number] Adm Physician: Ordered by: GOLDEN WANG MD Rep ort #: [id number] Location: Room/B ed: Procedure: [id number] CT/CT BRAIN WO Exam Date: 08/14/19 Exam [...] 8:38 AM Dictated By: Irma WOODS MD 08 38 Transcribed By: ZAHEER on 08/14/19 0838 COPY TO: GOLDEN WANG MD Blood platelet clump detection by light dcjeujbyfe8671-17-48 05:25:00* Test Item Value Reference Range Interpretation Comments Clumped Platelets (test code = 7796-6) NONE NONE [facility] HospitalBlood poikilocytosis detection by light cdguhlmwpe0261-19-39 05:25:00* Test Item Value Reference Range Interpretation Comments Poikilocytosis (test code = 779-9) SLIGHT [facility] creatine kinase MB measurement (mass/volume)2019-08-14 05:25:00* Test Item Value Reference Range Interpretation Comments Creatine Kinase MB (test code = 83093-0) 2.60 0-5.0 [facility] HospitalTroponin I measurement by highly sensitive enzyme cbalovtopeo0990-21-32 05:25:00* Test Item Value Reference Range Interpretation Comments Troponin I (test code = 59053-9) 0.008 0-0.300 [facility]rum or plasma amylase measurement (enzymatic activity/volume)2019-08-14 05:25:00* Test Item Value Reference Range Interpretation Comments Amylase Level (test code = 1798-8) 98 25-125 [facility]ererum or plasma acetaminophen measurement by screening method (mass/volume)2019-08-14 05:25:00* Test Item Value Reference Range Interpretation Comments Acetaminophen Level (test code = 10525-5) < 3.0 10-30 [facility]rum or plasma ethanol measurement (mass/volume)2019-08-14 05:25:00* Test Item Value Reference Range Interpretation Comments Ethyl Alcohol Level (test code = 5643-2) 301.6 0.0-10.0 [facility]Blood platelet clump detection by light zcuovbjzdu3710-62-07 05:25:00* Test Item Value Reference Range Interpretation Comments Clumped Platelets (test code = 7796-6) NONE NONE [facility] HospitalBlood poikilocytosis detection by light aaixxpfzmj7263-25-51 05:25:00* Test Item Value Reference Range Interpretation Comments Poikilocytosis (test code = 779-9) SLIGHT [facility] plasma acetaminophen measurement by screening method (mass/volume)2019-08-14 05:25:00* Test Item Value Reference Range Interpretation Comments Acetaminophen Level (test code = 14878-0) < 3.0 10-30 [facility]ererum or plasma ethanol measurement (mass/volume)2019-08-14 05:25:00* Test Item Value Reference Range Interpretation Comments Ethyl Alcohol Level (test code = 5643-2) 301.6 0.0-10.0 [facility] HospitalBlood platelet clump detection by light yjpfxxgghq1605-92-38 05:25:00* Test Item Value Reference Range Interpretation Comments Clumped Platelets (test code = 7796-6) NONE NONE [facility] HospitalBlood poikilocytosis detection by light wcfjqcvkvq4638-51-31 05:25:00* Test Item Value Reference Range Interpretation Comments Poikilocytosis (test code = 779-9) SLIGHT [facility] plasma acetaminophen measurement by screening method (mass/volume)2019-08-14 05:25:00* Test Item Value Reference Range Interpretation Comments Acetaminophen Level (test code = 36273-3) < 3.0 10-30 [facility]ererum [facility] plasma ethanol measurement (mass/volume)2019-08-14 05:25:00* Test Item Value Reference Range Interpretation Comments Ethyl Alcohol Level (test code = 5643-2) 301.6 0.0-10.0 [facility] Hospitalthyroid stimulating hormone, serum 2019-03-28 10:04:00* Test Item Value Reference Range Interpretation Comments thyroid stimulating hormone, serum (test code = 3016-3) 1.92 0 u[iU]/mL 0.450-4.500 [facility]LDL cholesterol, ppbqj0949-57-86 10:04:00* Test Item Value Reference Range Interpretation Comments LDL cholesterol, serum (test code = 2089-1) 63 mg/dL 0-99 [facility] low density yapaoggnvwom2434-54-62 10:04:00* Test Item Value Reference Range Interpretation Comments very low density lipoproteins (test code = 2091-7) 10 mg/dL 5-4 0 [facility] HospitalHDL cholesterol, tdphr8458-93-33 10:04:00* Test Item Value Reference Range Interpretation Comments HDL cholesterol, serum (test code = 2085-9) 50 mg/dL >39 [facility] Hospitaltriglyceride, serum, ajfopnw9747-52-79 10:04:00* Test Item Value Reference Range Interpretation Comments triglyceride, serum, fasting (test code = 2571-8) 48 mg/dL 0-14 9 [facility]cholesterol, xneoi7764-40-33 10:04:00* Test Item Value Reference Range Interpretation Comments cholesterol, serum (test code = 2093-3) 123 mg/dL 100-199 [facility]bacteria, urine hftwputznu7406-29-40 10:04:00* Test Item Value Reference Range Interpretation Comments bacteria, urine microscopy (test code = 5769-5) None seen None s een/Few [facility] Yoombacast type, iunqhiowgv4954-14-98 10:04:00* Test Item Value Reference Range Interpretation Comments cast type, urinalysis (test code = 88735) Hyaline casts N/A [facility] Yoombacasts, spotq5157-77-22 10:04:00* Test Item Value Reference Range Interpretation Comments casts, urine (test code = 5626) Present None seen A [facility] Yoombaepithelial cells, dpxcw2163-34-93 10:04:00* Test Item Value Reference Range Interpretation Comments epithelial cells, urine (test code = 5787-7) 0-10 0-10 [facility] YoombaRBC, Eqokd9777-13-86 10:04:00* Test Item Value Reference Range Interpretation Comments RBC, Urine (test code = 21815-6) 3-10 /hpf 0-2 A [facility] HospitalWBC urine on uwjmimreqo0068-87-40 10:04:00* Test Item Value Reference Range Interpretation Comments WBC urine on microscopy (test code = 1016) 0-5 /hpf 0-5 [facility] Hospitalurinalysis, microscopic vvsxqkxwwxq7455-36-64 10:04:00* Test Item Value Reference Range Interpretation Comments urinalysis, microscopic examination (test code = 21241-6) See below : [facility] Yoombanitrate, sojzw7622-79-52 10:04:00* Test Item Value Reference Range Interpretation Comments nitrate, urine (test code = 51329-9) Negative Negative [facility] Hospitalurobilinogen, urine, semiquantitative (dipstick) 2019-03-28 10:04:00* Test Item Value Reference Range Interpretation Comments urobilinogen, urine, semiquantitative (dipstick) (test code = 5818-0) 0.2 0.2-1.0 [facility]bilirubin, ispsi9594-99-18 10:04:00* Test Item Value Reference Range Interpretation Comments bilirubin, urine (test code = 5770-3) Negative Negative [facility] Hospitalketones, urine, by test cqjjk9723-52-96 10:04:00* Test Item Value Reference Range Interpretation Comments ketones, urine, by test strip (test code = 5797-6) Negative Neg ative [facility] Hospitalglucose, urine, rwfutlukjljoiqfs1275-48-01 10:04:00* Test Item Value Reference Range Interpretation Comments glucose, urine, semiquantitative (test code = 5792-7) Negative Negative [facility] Hospitalprotein, urine, semiquantitative (dipstick)2019-03-28 10:04:00* Test Item Value Reference Range Interpretation Comments protein, urine, semiquantitative (dipstick) (test code = 175 3-3) Negative Negative/Trace [facility] Hospitalleukocyte esterase, urine, by tgdprywg0431-54-11 10:04:00 * Test Item Value Reference Range Interpretation Comments leukocyte esterase, urine, by dipstick (test code = 5799-2) Negativ e Negative [facility] Hospitalappearance, goxze2683-36-19 10:04:00* Test Item Value Reference Range Interpretation Comments appearance, urine (test code = 5767-9) Clear Clear [facility] Healthurine txkvt2075-51-41 10:04:00* Test Item Value Reference Range Interpretation Comments urine color (test code = 5778-6) Yellow Yellow [facility] HospitalpH, urine, ewkpjebutiklscul6269-00-51 10:04:00* Test Item Value Reference Range Interpretation Comments pH, urine, semiquantitative (test code = 5803-2) 7.5 5.0-7 .5 [facility] Hospitalspecific gravity, body bhdlo9973-47-35 10:04:00* Test Item Value Reference Range Interpretation Comments specific gravity, body fluid (test code = 2964-5) 1.008 1.00 5-1.030 [facility] Hospitalalanine aminotransferase (SGPT), bvika1525-08-56 10:04:00 * Test Item Value Reference Range Interpretation Comments alanine aminotransferase (SGPT), serum (test code = 1742-6) 17 1/L 0-44 [facility] Hospitalaspartate aminotransferase (SGOT), rcrzq6068-11-54 10:04:00* Test Item Value Reference Range Interpretation Comments aspartate aminotransferase (SGOT), serum (test code = 1920-8) 34 1/ L 0-40 [facility] Hospitalalkaline phosphatase, ksekg8518-89-64 10:04:00* Test Item Value Reference Range Interpretation Comments alkaline phosphatase, serum (test code = 1783-0) 72 1/L 39-11 7 [facility] Hospitalbilirubin, serum, wxvqm7321-96-53 10:04:00* Test Item Value Reference Range Interpretation Comments bilirubin, serum, total (test code = 1975-2) 1.3 mg/dL 0.0-1.2 H [facility] Hospitalalbumin/globulin ratio, uewtf6530-09-09 10:04:00* Test Item Value Reference Range Interpretation Comments albumin/globulin ratio, serum (test code = 1759-0) 0.6 1.2 -2.2 L [facility] Hospitalglobulin, xifhm8885-65-99 10:04:00* Test Item Value Reference Range Interpretation Comments globulin, serum (test code = 2336-6) 5.7 1.5-4.5 H [facility] Hospitalalbumin, fmzcd2050-35-54 10:04:00* Test Item Value Reference Range Interpretation Comments albumin, serum (test code = 1751-7) 3.3 g/dL 3.5-5.5 L [facility] Hospitalprotein, total, obbdn8376-76-30 10:04:00* Test Item Value Reference Range Interpretation Comments protein, total, serum (test code = 2885-2) 9.0 g/dL 6.0-8.5 H [facility] Hospitalcalcium, rxjdp5123-23-83 10:04:00* Test Item Value Reference Range Interpretation Comments calcium, serum (test code = 1999-8) 8.2 mg/dL 8.7-10.2 L [facility] Hospitalcarbon dioxide, venous ftelu3497-96-85 10:04:00* Test Item Value Reference Range Interpretation Comments carbon dioxide, venous blood (test code = 2027-1) 23 mmol/L 20-2 9 [facility] Healthchloride, kxsji4677-49-05 10:04:00* Test Item Value Reference Range Interpretation Comments chloride, serum (test code = 2075-0) 94 mmol/L 96-106 L [facility] Healthpotassium, rinxi8558-00-66 10:04:00* Test Item Value Reference Range Interpretation Comments potassium, serum (test code = 2823-3) 3.8 mmol/L 3.5-5.2 [facility] Hospitalsodium, oeoke9780-08-58 10:04:00* Test Item Value Reference Range Interpretation Comments sodium, serum (test code = 2951-2) 134 mmol/L 134-144 [facility] Hospitalurea nitrogen/creatinine ratio, mibcf0684-46-06 10:04:00 * Test Item Value Reference Range Interpretation Comments urea nitrogen/creatinine ratio, serum (test code = 3097-3) 15 9-20 [facility] HealtheGFR if Lspzszgn7841-81-15 10:04:00* Test Item Value Reference Range Interpretation Comments eGFR if (test code = 71973-2) 66 mL/min/((173/100) .m2) >59 [facility] HospitalEstimated Glomerular Filtration Rate (calc)2019-03-28 10:04:00* Test Item Value Reference Range Interpretation Comments Estimated Glomerular Filtration Rate (calc) (test code = 58500-8) 57 mL/min/((173/100).m2) >59 L [facility] Hospitalcreatinine, kdbbo1488-12-75 10:04:00* Test Item Value Reference Range Interpretation Comments creatinine, serum (test code = 2160-0) 1.44 mg/dL 0.76-1.27 H [facility] Hospitalurea nitrogen, vydog0944-15-63 10:04:00* Test Item Value Reference Range Interpretation Comments urea nitrogen, blood (test code = 3094-0) 21 mg/dL 6-24 [facility] Hospitalblood glucose, gewjet2406-98-63 10:04:00* Test Item Value Reference Range Interpretation Comments blood glucose, random (test code = 2339-0) 104 mg/dL 65-99 H [facility] Hospitalimmature granulocytes, percentage of total cells, blood 2019-03-28 10:04:00* Test Item Value Reference Range Interpretation Comments immature granulocytes, percentage of total cells, bloo d (test code = 68543-3) 0 % [facility] Hospitalbasophil count, djydyiae7026-24-01 10:04:00* Test Item Value Reference Range Interpretation Comments basophil count, absolute (test code = 57628-8) 0.0 x10E3/uL 0.0-0.2 [facility] HealthEosinophil Absolute Mhtnk5272-93-88 10:04:00* Test Item Value Reference Range Interpretation Comments Eosinophil Absolute Count (test code = 60137-2) 0.5 X10E3/UL 0.0-0. 4 H [facility] Hospitalmonocyte count, blood, pvlnpqxnl6228-67-83 10:04:00* Test Item Value Reference Range Interpretation Comments monocyte count, blood, automated (test code = 742-7) 0.8 X10E3/UL 0 .1-0.9 [facility] Hospitallymphocyte count, blood, xriqpcpti6518-88-60 10:04:00* Test Item Value Reference Range Interpretation Comments lymphocyte count, blood, automated (test code = 731-0) 0.9 X10E3/UL 0.7-3.1 [facility] HospitalAbsolute Eapbksnbael2914-12-83 10:04:00* Test Item Value Reference Range Interpretation Comments Absolute Neutrophils (test code = 16848-9) 3.5 X10E3/UL 1.4-7.0 [facility] Hospitalbasophils as percent of blood vlqubhiiiq0235-63-51 10:04:00* Test Item Value Reference Range Interpretation Comments basophils as percent of blood leukocytes (test code = 707-0) 1 % [facility] Healtheosinophils as percent of blood ncvlyyrrnm9172-16-49 10:04:00* Test Item Value Reference Range Interpretation Comments eosinophils as percent of blood leukocytes (test code = 713-8) 9 % [facility] Healthmonocytes as percent of blood nmzpxjsdno3517-17-66 10:04:00* Test Item Value Reference Range Interpretation Comments monocytes as percent of blood leukocytes (test code = 5905-5) 13 % [facility] Hospitallymphocytes as percent of blood zhcclsbutf7639-78-79 10:04:00* Test Item Value Reference Range Interpretation Comments lymphocytes as percent of blood leukocytes (test code = 736-9) 16 % [facility] Hospitalneutrophils as percent of blood jdnjekfkqb6098-92-22 10:04:00* Test Item Value Reference Range Interpretation Comments neutrophils as percent of blood leukocytes (test code = 770-8) 61 % [facility] Hospitalplatelet kvtym0803-27-78 10:04:00* Test Item Value Reference Range Interpretation Comments platelet count (test code = 777-3) 102 X10E3/UL 150-450 L [facility] Hospitalred blood cell distribution cdefr4123-75-65 10:04:00* Test Item Value Reference Range Interpretation Comments red blood cell distribution width (test code = 788-0) 20.5 % 11.6-15.4 H [facility] corpuscular hemoglobin concentration, JZW2669-43-26 10:04:00* Test Item Value Reference Range Interpretation Comments mean corpuscular hemoglobin concentration, RBC (test code = 786-4) 28.8 G/DL 31.5-35.7 L [facility] corpuscular hemoglobin, BWL9755-17-67 10:04:00* Test Item Value Reference Range Interpretation Comments mean corpuscular hemoglobin, RBC (test code = 785-6) 22.4 pg 2 6.6-33.0 L [facility] corpuscular volume, CGC1778-09-87 10:04:00* Test Item Value Reference Range Interpretation Comments mean corpuscular volume, RBC (test code = 787-2) 78 fL 79-97 L [facility] Hospitalhematocrit, stopd6802-42-45 10:04:00* Test Item Value Reference Range Interpretation Comments hematocrit, blood (test code = 4544-3) 32.3 % 37.5-51.0 L [facility] Hospitalhemoglobin, rtnuj6955-32-93 10:04:00* Test Item Value Reference Range Interpretation Comments hemoglobin, blood (test code = 718-7) 9.3 g/dL 13.0-17.7 L [facility] Hospitalerythrocyte (RBC) xwvlb6555-91-16 10:04:00* Test Item Value Reference Range Interpretation Comments erythrocyte (RBC) count (test code = 789-8) 4.16 X10E6/UL 4.14-5.80 [facility] Hospitalleukocyte count, papzn2772-74-64 10:04:00* Test Item Value Reference Range Interpretation Comments leukocyte count, blood (test code = 6690-2) 5.7 X10E3/UL 3.4-10.8 [facility] HospitalCARDIAC OFMEOTY9251-27-34 17:40:00<0.02[facility] CHEM BZHCK6233-84-70 17:40:50616Dhjnpmeb YouivynVBAOPURPKAYW1457-22-68 17:40:00 9.5[facility] TmfyphoSKOGCWVUYIED3476-83-24 17:40:00* Test Item Value Reference Range Interpretation Comments B/C Ratio (test code = B/C Ratio) 12 1 6-25 [facility] XiyrmewDPSFVKRIQMUK2646-60-41 17:40:006.2[facility]annELECTROLYTES 2019-02-26 17:40:00* Test Item Value Reference Range Interpretation Comments A/G Ratio (test code = A/G Ratio) 0.4 1 0.7-1.6 [facility] DnwybaqUDSZJSAVKFNF7613-74-46 17:40:0086[facility]annELECTROLYTES 2019-02-26 17:40:0011[facility] TbjsnwfQVGUZFRHSUEG8865-24-89 17:40:000.92[facility] RrmytovRGLFRZWHQSTQ2792-43-24 17:40:93025Wkkswsmn NupemktMPVRZWIZLZOD7946-84-33 17:40:003.5[facility] KpnogydFICKSPHKOZFQ1667-74-32 17:40:76874Anlidjqy Levon CYOOUYRPKUWG5481-58-01 17:40:0026[facility] HnsbjpfVYWMQLZSCGCI0411-96-66 17:40:00 8.3[facility] EgxqfbcQEWKBQKJZKNY8670-31-30 17:40:008.5[facility] TQYCYYULAPIS1778-50-51 17:40:002.3[facility] FbwxotdYFMALKJHICXC2188-83-28 17:40:0040[facility] AvvrlmmBNMYQCINULHE9120-70-43 17:40:08515Rjekeuay Levon GMHDJJXRJUKK5272-12-42 17:40:0073[facility] CitjwojCFUAIZGQGCVO5360-07-97 17:40:00 0.7[facility] GllxaluYAXEXLYVRKXE5683-00-11 17:40:0098[facility]annHEMATOLOGY 2019-02-26 17:40:00See Note (02/26/19 11:40 AM)[facility]ann[facility]MATOLOGY 2019-02-26 17:40:00Normal (02/26/19 11:40 AM)[facility]ann[facility]MATOLOGY 2019-02-26 17:40:0041.5[facility] UwruiepMDHQSUZAWS6307-92-02 17:40:0032.8[facility] DrxyzbmKNJNIHTREG7636-27-84 17:40:0012.4[facility] ZqhhlrvANHOBBPRNF7089-31-86 17:40:0012.3[facility] UanifdnWRMDJGZUJC7667-08-88 17:40:001.0[facility]on CKTCCZIRNT9844-51-81 17:40:001.3[facility] TwkhxctYIDNOOYQJZ7417-41-54 17:40:001.0 [facility] AzgmdueSEASIJRKHL1840-68-42 17:40:000.4[facility]annHEMATOLOGY 2019-02-26 17:40:000.4[facility] KhefmtzLJRRBSJIJC9291-52-35 17:40:001+ *ABN*(02/26/19 11:40 AM)[facility] QonqnylSBZHFVWHPJ8371-41-54 17:40:001+ *ABN*(02/26/19 11:40 AM)[facility] QtqxvddVUFAJYGTBS6732-18-59 17:40:002+ (02/26/19 11:40 AM)[facility] SzrcerpUKALPIMPDJ4647-10-91 17:40:003.1[facility] KznkrvzVRUSWTXUGT5273-88-17 17:40:003.80[facility] BgvypwbQTFHRAWBSJ1114-67-05 17:40:008.6[facility] SwijfqqRPRUQSFSGT6752-95-34 17:40:0027.3[facility] NXGYUITSVK1895-20-65 17:40:0072.0[facility] RvilnmqCGLYUCLIIO5912-17-67 17:40:00* Test Item Value Reference Range Interpretation Comments MCH (test code = MCH) 22.6 pg 27.0-31.0 [facility] HospitalDlcylcyCLBMKWOCWS6024-73-58 17:40:0031.4[facility]annHEMATOLOGY 2019-02-26 17:40:0021.4[facility] JardnnqJUVWSGOZVI1947-82-37 17:40:0043[facility] HvnjbzlSORJSHIEZP3121-29-85 17:40:009.0[facility] HewvhodKHJHYWIWME4650-33-74 17:40:00* Test Item Value Reference Range Interpretation Comments PT (test code = PT) 15.4 s 12.0-14.7 [facility] HospitalQgbbulyPYIIKGNCJC9338-22-92 17:40:00* Test Item Value Reference Range Interpretation Comments INR (test code = INR) 1.21 1 0.85-1.17 [facility]emflabLTTTNDYXXQ6709-21-61 17:40:00* Test Item Value Reference Range Interpretation Comments PTT (test code = PTT) 32.4 s 22.9-35.8 [facility]URINALYSIS UYPDEJTA6718-07-67 08:25:00* Test Item Value Reference Range Interpretation [...] Urine Source? Clean CatchDRUGS OF ABUSE SCREEN ND5717-04-63 08:25:00* Test Item Value Reference Range Interpretation [...] NEGATIVE <300 ng/mL Urine Source? Clean CatchURINALYSIS AVOPIWBX1449-38-01 08:14:00* Test Item Value Reference Range Interpretation [...] Urine Source? Clean CatchDRUGS OF ABUSE SCREEN EF7476-44-33 08:14:00* Test Item Value Reference Range Interpretation [...] Source? Clean Catch- CT ABD PELVIS W/O LPGB5835-24-34 08:02:00 Name: JOECLIN CORREA [facility] : 1970 Age/S: 48 / M [address] [facility] Unit #: [id number] Loc: [place] [address] Phys: Melania Roberts MD Acct: [id number] Di s Date: Status: REG ER PHONE #: Exam Date: 01/15/2019 0739 FAX #: Reason: abdominal pain EXAMS: CPT CODE: [id number] CT ABD PELVIS W/O CONT 33417 REASON FOR EXAM: abdomina l pain EXAM [...] 1 Signed Report (CONTINUED) Name: MICHELLE CORREA [facility] : 1970 Age/S : 48 / M [address] Unit #: [id number] Loc: [place] [address] Phys: Maryan Roberts MD Acct: [id number] Dis Date: Status: REG ER PHONE #: [phone] Ex am Date: 01/15/2019 0739 FAX #: [phone] Reason: a bdominal pain EXAMS: CPT CODE: [id number] CT ABD PELVIS W/O CONT 79945 <Continued> Abdominal vascular structures: Grossly normal Peritoneum [...] ultrasound. Nonobstructing right-sided nephrolithiasis. Location: [facility] at 0802 Reported and signed [...] CA) 8.8 mg/dL 8.5-10.1 N HEPATIC FUNCTION EXYYR4233-23-12 06:53:00* Test Item Value Reference Range Interpretation [...] reference range due to change in reagent. GFSTBG3249-35-74 06:53:00* Test Item Value Reference Range Interpretation Comments LIPASE (test code = LIP) 202 U/L 73.0-393.0 N [id number]-[id number] 06:53:00* Test Item Value Reference Range Interpretation Comments TROPONIN-I (test code = TROPI) <0.015 ng/mL 0-0.045 N [id number] 06:53:00* Test Item Value Reference Range Interpretation Comments ALCOHOL (test code = ALC) 93 mg/dL 0.0-3.0 H -- INTERPRETIVE DATA NOTE: POSITIVE SCREENING RESULTS SHOULD BE CONSIDERED PRESUMPTIVE.WHEN COLLECTED FOR MEDICAL PURPOSES ONLY. SPECIMEN WILL NOTBE COLLECTED BY CHAIN OF CUSTODY.IF A CONFIRMATION OF POSITIVE RESULTS IS DESIRED, ACONFIRMATION TEST MUST BE REQUESTED BY THE PHYSICIAN AT ANADDITIONAL CHARGE TO THE PATIENT. [id number] 06:52:00* Test Item Value Reference Range Interpretation Comments AMMONIA (test code = AMM) 83 umol/L 11-32 H CBC W/O [id number] 06:39:00* Test Item Value Reference Range Interpretation [...] 10.1 fL 6.7-11.0 N - US ABDOMEN [id number] 09:19:00 Name: SUNNYCHELLY [facility] : 1970 Age/S: 48 / M [address] [facility] Unit #: [id number] Loc: [place] [address] Phys: González Nunez MD Acct: [id number] Dis Date: Status: REG CLI PHONE #: [phone] Exam Date: 12/25/2018 0855 FAX #: [phone] Reason: 571.5,K74.60,211.3,D12.6,V85.25,E66.3 EXAMS: CPT CODE: [id number] US ABDOMEN COMPLETE 81697 REASON FOR EXAM: 571.5,K7 4.60,211.3,D12.6,V85.25,E66.3 EXAM ORDER [...] 1 Signed Report (CONTINUED) Name: CHELLY CORREA [facility] : 1970 Age/S: 48 / M [address] [facility] Unit #: [id number] Loc: [place] [address] Phys: González Nunez MD Acct: [id number] Dis Date: Status: REG CLI PHONE #: [phone] Exam Date: 12/25/2018 0855 FAX #: [phone] Reason: 571.5,K74.60,211.3,D12.6,V85.25,E66.3 EXAMS: CPT CODE: 0 [id number] US ABDOMEN COMPLETE 93064 < Continued> Left kidney: parenchyma echogenicity: Normal [...] (918) t.SDR.RR31 Orig Print D/T: S: 12/25/2018 (921) Probe: PAGE 2 Signed Report [id number] 16:26:00* Test Item Value Reference Range Interpretation Comments GLUBED (test code = GLUBED) 101 mg/dL 74-106 N Performed by certified mix house operator at [facility] CBC W/AUTO [id number] 09:15:00* Test Item Value Reference Range Interpretation [...] = MDIFF) NO, ONLY SCAN NEEDED DIFFERENTIAL [id number] 09:15:00* Test Item Value Reference Range Interpretation Comments STAIN ACCEPTABILITY (test code = STN ACCEPTABLE) STAIN ACCEPTABLE HYPOCHROMIA (test code = HYPO) 1+ ANISOCYTOSIS (test code = ANISO) 2+ MICROCYTOSIS (test code = MICR) 1+ MORPHOLOGY COMMENT (test code = MOC) NORMAL PLATELET ESTIMATE (test code = PLTEST) DECREASED COMPREHENSIVE METABOLIC [id number] 08:48:00* Test Item Value Reference Range Interpretation [...] FESAT) 5.80 % 13-45 L THYROID STIMULATING [id number] 08:48:00* Test Item Value Reference Range Interpretation Comments THYROID STIMULATING HORMONE (test code = TSH) 2.940 uIU/mL 0.36-3.7 4 N TSH REFERENCE RANGES: EUTHYROID: 0.35 - 4.3 mIU/mL HYPO : > 5.5 mIU/mL HYPER : < 0.35 mIU/mL [id number] 08:48:00* Test Item Value Reference Range Interpretation Comments FERRITIN (test code = GRABIEL) 12 ng/mL 8-388 N COMPREHENSIVE METABOLIC [id number] 08:19:00* Test Item Value Reference Range Interpretation [...] code = FESAT) % 13-45 THYROID STIMULATING [id number] 08:19:00* Test Item Value Reference Range Interpretation Comments THYROID STIMULATING HORMONE (test code = TSH) uIU/mL 0.36-3.7 4 [id number] 08:19:00* Test Item Value Reference Range Interpretation Comments FERRITIN (test code = GRABIEL) ng/mL 8-388 CBC W/AUTO [id number] 08:11:00* Test Item Value Reference Range Interpretation [...] = MDIFF) NO, ONLY SCAN NEEDED DIFFERENTIAL [id number] 08:11:00* Test Item Value Reference Range Interpretation Comments STAIN ACCEPTABILITY (test code = STN ACCEPTABLE) CABOT RINGS (test code = CAB) MORPHOLOGY COMMENT (test code = MOC) PLATELET ESTIMATE (test code = PLTEST) PLATELET MORPHOLOGY (test code = PLTMORPH) CBC W/AUTO [id number] 08:11:00* Test Item Value Reference Range Interpretation [...] = MDIFF) NO, ONLY SCAN NEEDED DIFFERENTIAL [id number] 08:11:00* Test Item Value Reference Range Interpretation Comments STAIN ACCEPTABILITY (test code = STN ACCEPTABLE) CABOT RINGS (test code = CAB) MORPHOLOGY COMMENT (test code = MOC) PLATELET ESTIMATE (test code = PLTEST) PLATELET MORPHOLOGY (test code = PLTMORPH) CBC W/AUTO [id number] 08:11:00* Test Item Value Reference Range Interpretation [...] = MDIFF) NO, ONLY SCAN NEEDED DIFFERENTIAL [id number] 08:11:00* Test Item Value Reference Range Interpretation Comments STAIN ACCEPTABILITY (test code = STN ACCEPTABLE) MORPHOLOGY COMMENT (test code = MOC) PLATELET ESTIMATE (test code = PLTEST) PLATELET MORPHOLOGY (test code = PLTMORPH) CBC W/AUTO [id number] 08:10:00* Test Item Value Reference Range Interpretation [...] = MDIFF) NO, ONLY SCAN NEEDED DIFFERENTIAL [id number] 08:10:00* Test Item Value Reference Range Interpretation Comments STAIN ACCEPTABILITY (test code = STN ACCEPTABLE) CABOT RINGS (test code = CAB) MORPHOLOGY COMMENT (test code = MOC) PLATELET ESTIMATE (test code = PLTEST) PLATELET MORPHOLOGY (test code = PLTMORPH) [id number] 08:09:00* Test Item Value Reference Range Interpretation Comments AMMONIA (test code = AMM) 89 umol/L 11-32 H [id number] 08:09:00* Test Item Value Reference Range Interpretation Comments GLYCOSYLATED HEMOGLOBIN (HA1C) (test code = GLYHGB) 5.0 % HbA1 4. 8-6.0 N ESTIMATED AVERAGE GLUCOSE (test code = EAG) 97 MG/DL [id number] 05:52:00* Test Item Value Reference Range Interpretation Comments GLUBED (test code = GLUBED) 100 mg/dL 74-106 N Performed by certified mix house operator at [facility] [id number] 20:26:00* Test Item Value Reference Range Interpretation Comments GLUBED (test code = GLUBED) 111 mg/dL 74-106 H Performed by certified mix house operator at [facility] PROTHROMBIN [id number] 15:38:00* Test Item Value Reference Range Interpretation [...] (2.5-3.5) IS PATIENT ON ANTICOAGULANTS? NTHROMBOPLASTIN TIME [id number] 15:38:00* Test Item Value Reference Range Interpretation Comments THROMBOPLASTIN TIME PARTIAL (test code = PTT) 36.6 seconds 25.0-36. 5 H IS PATIENT ON ANTICOAGULANTS? [id number] 14:10:00* Test Item Value Reference Range Interpretation Comments PHOSPHORUS (test code = PHOS) 3.3 mg/dL 2.5-4.9 N [id number] 14:10:00* Test Item Value Reference Range Interpretation Comments AMYLASE (test code = JUAN) 69 Unit/L 25-115 N [id number] 14:10:00* Test Item Value Reference Range Interpretation Comments LIPASE (test code = LIP) 116 U/L 73.0-393.0 N [id number] 14:10:00* Test Item Value Reference Range Interpretation Comments MAGNESIUM (test code = MAG) 2.3 mg/dL 1.8-2.4 N VITAMIN [id number] 14:10:00* Test Item Value Reference Range Interpretation Comments VITAMIN B12 (test code = VITB12) 776 pg/mL 193-986 N FOLIC [id number] 14:10:00* Test Item Value Reference Range Interpretation Comments FOLIC ACID (test code = FOL) 33.2 ng/mL 3.10-17.50 H [id number] 14:10:00* Test Item Value Reference Range Interpretation [...] TO THE PATIENT. - CT HEAD/BRAIN W/O [id number] 07:29:00 Name: JOCELIN CORREA [facility] : 1970 Age/S: 48 / M [address] [facility] Unit #: [id number] Loc: [place] [address] Phys: Lolis Parks DO Acct: [id number] Dis Date: Status: REG ER PHONE #: [phone] Exam Date: 12/06/2018 0635 FAX #: [phone] Reason: Altered Mental Status EXAMS: CPT CODE: [id number] CT HEAD/BRAIN W/O CONT 21119 HISTORY: Altered mental status TECHNIQUE: Noncontrast 2.5 [...] HINKLE CTDI: DLP: Trnscb Date/Time: 12/06/2018 (0729) MedhatR.LDP1 Orig Print D/T: S: 12/06/2018 (0792) PAGE 1 Signed Report CBC W/AUTO [id number] 07:26:00* Test Item Value Reference Range Interpretation [...] = MDIFF) NO, ONLY SCAN NEEDED DIFFERENTIAL [id number] 07:26:00* Test Item Value Reference Range Interpretation Comments STAIN ACCEPTABILITY (test code = STN ACCEPTABLE) STAIN ACCEPTABLE HYPOCHROMIA (test code = HYPO) 1+ ANISOCYTOSIS (test code = ANISO) 1+ MACROCYTOSIS (test code = MACR) 1+ PLATELET ESTIMATE (test code = PLTEST) DECREASED PLATELET MORPHOLOGY (test code = PLTMORPH) SIZE VARIABLE URINALYSIS [id number] 07:12:00* Test Item Value Reference Range Interpretation [...] Urine Source? Clean CatchDRUGS OF ABUSE SCREEN [id number] 07:12:00* Test Item Value Reference Range Interpretation [...] NEGATIVE <300 ng/mL Urine Source? Clean CatchURINALYSIS [id number] 07:08:00* Test Item Value Reference Range Interpretation [...] Urine Source? Clean CatchDRUGS OF ABUSE SCREEN [id number] 07:08:00* Test Item Value Reference Range Interpretation [...] [place]) <300 ng/mL Urine Source? Clean CatchURINALYSIS [id number] 07:01:00* Test Item Value Reference Range Interpretation [...] Urine Source? Clean CatchDRUGS OF ABUSE SCREEN [id number] 07:01:00* Test Item Value Reference Range Interpretation [...] <300 ng/mL Urine Source? Clean CatchBASIC METABOLIC [id number] 06:46:00* Test Item Value Reference Range Interpretation [...] CA) 8.5 mg/dL 8.5-10.1 N HEPATIC FUNCTION [id number] 06:46:00* Test Item Value Reference Range Interpretation [...] reference range due to change in reagent. [id number] 06:46:00* Test Item Value Reference Range Interpretation Comments TROPONIN-I (test code = TROPI) <0.015 ng/mL 0-0.045 N [id number] 06:46:00* Test Item Value Reference Range Interpretation Comments ACETAMINOPHEN (test code = ACET) < 10 mcg/mL 10-30 L A RANGE OF 10-30 mcg/mL IS A THERAPEUTIC RANGE. TOXIC CONCENTRATIONS: >150 mcg/mL AT 4 HOURS AFTER INGESTION >= 50 mcg/mL AT 12 HOURS AFTER INGESTION [id number] 06:46:00* Test Item Value Reference Range Interpretation Comments SALICYLATE (test code = KAILEY) < 1.7 mg/dL 2.8-20.0 L [id number] 06:46:00* Test Item Value Reference Range Interpretation [...] AT ANADDITIONAL CHARGE TO THE PATIENT. PROTHROMBIN [id number] 06:44:00* Test Item Value Reference Range Interpretation [...] (2.5-3.5) IS PATIENT ON ANTICOAGULANTS? NTHROMBOPLASTIN TIME [id number] 06:44:00* Test Item Value Reference Range Interpretation Comments THROMBOPLASTIN TIME PARTIAL (test code = PTT) 34.6 seconds 25.0-36. 5 N IS PATIENT ON ANTICOAGULANTS? [id number] 06:37:00* Test Item Value Reference Range Interpretation Comments AMMONIA (test code = AMM) 152 umol/L 11-32 H BASIC METABOLIC [id number] 06:31:00* Test Item Value Reference Range Interpretation [...] code = CA) mg/dL 8.5-10.1 HEPATIC FUNCTION [id number] 06:31:00* Test Item Value Reference Range Interpretation [...] TOTAL (test code = ALKP) IUnit/L 45-117 [id number] 06:31:00* Test Item Value Reference Range Interpretation Comments TROPONIN-I (test code = TROPI) ng/mL 0-0.045 [id number] 06:31:00* Test Item Value Reference Range Interpretation Comments ACETAMINOPHEN (test code = ACET) mcg/mL 10-30 [id number] 06:31:00* Test Item Value Reference Range Interpretation Comments SALICYLATE (test code = KAILEY) mg/dL 2.8-20.0 [id number] 06:31:00* Test Item Value Reference Range Interpretation Comments ALCOHOL (test code = ALC) mg/dL 0-3 CBC W/AUTO [id number] 06:21:00* Test Item Value Reference Range Interpretation [...] = MDIFF) NO, ONLY SCAN NEEDED DIFFERENTIAL [id number] 06:21:00* Test Item Value Reference Range Interpretation Comments STAIN ACCEPTABILITY (test code = STN ACCEPTABLE) CABOT RINGS (test code = CAB) MORPHOLOGY COMMENT (test code = MOC) PLATELET ESTIMATE (test code = PLTEST) PLATELET MORPHOLOGY (test code = PLTMORPH) CBC W/AUTO [id number] 06:21:00* Test Item Value Reference Range Interpretation [...] = MDIFF) NO, ONLY SCAN NEEDED DIFFERENTIAL [id number] 06:21:00* Test Item Value Reference Range Interpretation Comments STAIN ACCEPTABILITY (test code = STN ACCEPTABLE) MORPHOLOGY COMMENT (test code = MOC) PLATELET ESTIMATE (test code = PLTEST) PLATELET MORPHOLOGY (test code = PLTMORPH) CBC W/AUTO [id number] 06:21:00* Test Item Value Reference Range Interpretation [...] = MDIFF) NO, ONLY SCAN NEEDED DIFFERENTIAL [id number] 06:21:00* Test Item Value Reference Range Interpretation Comments STAIN ACCEPTABILITY (test code = STN ACCEPTABLE) MORPHOLOGY COMMENT (test code = MOC) PLATELET ESTIMATE (test code = PLTEST) PLATELET MORPHOLOGY (test code = PLTMORPH) CBC W/AUTO [id number] 06:20:00* Test Item Value Reference Range Interpretation [...] = MDIFF) NO, ONLY SCAN NEEDED DIFFERENTIAL [id number] 06:20:00* Test Item Value Reference Range Interpretation Comments STAIN ACCEPTABILITY (test code = STN ACCEPTABLE) CABOT RINGS (test code = CAB) MORPHOLOGY COMMENT (test code = MOC) PLATELET ESTIMATE (test code = PLTEST) PLATELET MORPHOLOGY (test code = PLTMORPH) - XR CHEST 1 [id number] 06:08:00 FAX: Lolis Parks DO [place]: B St: REG Name: JOCELIN CARROLL [facility] : [birth year] Age/S: 48/M [address] [facility] Unit #: [id number] Loc: [place] [address] Phys: Lolis Parks DO Acct: [id number] Dis Date: Status: REG ER PHONE #: [phone] Exam Date: 12/06/2018556 FAX #: [phone] Reason: Altered Mental Status EXAMS: CPT CODE: [id number] XR CHEST 1 V 54357 AFTER HOURS SERVICE ON: 12/06/2018 6:07 AM [...] (0611) PAG E 1 Signed Report CARDIAC [id number] 02:39:0028[facility]annCARDIAC [id number] 02:39:00< 0.02[facility]annCHEM [id number] 02:39:05007Hxqchzqi HermannCHEM PANEL 2018-08-25 02:39:35508Sgonpraj HermannCHEM [id number] 02:39:002.9[facility]annCHEM HBFUD1257-05-08 02:39:06054Dufpivil HermannCHEM [id number] 02:39:0028[facility]annCHEM EQFDH7935-21-50 02:39:000.79[facility]annCHEM YLPRH5334-00-21 02:39:00* Test Item Value Reference Range Interpretation Comments B/C Ratio (test code = B/C Ratio) 16 1 09-04 [facility]annCHEM [id number] 02:39:008.0[facility]annCHEM PANEL 2018-08-25 02:39:0089[facility]annCHEM [id number] 02:39:000.6[facility]annCHEM CBYEN0783-12-80 02:39:006.1[facility]annCHEM AFDGI8198-03-46 02:39:00* Test Item Value Reference Range Interpretation Comments A/G Ratio (test code = A/G Ratio) 0.3 1 0.7-1.6 [facility]annCHEM [id number] 02:39:0026[facility]annCHEM PANEL 2018-08-25 02:39:0077[facility]annCHEM MJCSB1011-59-14 02:39:001.9[facility]annCHEM AVYHN8283-94-35 02:39:008.9[facility]annCHEM KTYGI2627-61-37 02:39:007.9[facility]annCHEM GWYLJ4818-60-50 02:39:65479Qqobdzxe HermannCHEM XTSVB8394-20-04 02:39:0013[facility]annCHEM OHUPN3047-80-02 02:39:61727 [facility] VqxznnvFDVAMCAGPL0926-76-44 02:39:000.2[facility] HermannHEMATOLOGY 2018-08-25 02:39:000.6[facility] IecafzeVMGTQHXTQR3586-23-73 02:39:001.2[facility] IrwzwfmTIRGRVKNHV5733-03-36 02:39:000.3[facility] FxihinwPCKELMQNTG2197-52-71 02:39:001.3[facility] SnvyaqvJFVTIPPCLU8101-07-16 02:39:001+ *ABN*(08/24/18 9:39 PM)[facility] XkwugcsIOHKZBWSWF4609-61-94 02:39:0025.3[facility] HermannHEMATOLOGY 2018-08-25 02:39:0053.3[facility] PuoqrbpBBVPJFAOTL2134-04-34 02:39:008.8[facility] IyhjfneIGOKQBSOZD8379-04-57 02:39:0011.3[facility] OwqedwvQGVTJIIDPM1766-26-70 02:39:00* Test Item Value Reference Range Interpretation Comments PT (test code = PT) 14.7 s 12.0-14.7 [facility] QpcrvarVDMKGMROLS3024-45-82 02:39:00* Test Item Value Reference Range Interpretation Comments PTT (test code = PTT) 34.7 s 22.9-35.8 [facility] UnlnpvyTXOTGGYJQU5046-24-76 02:39:00* Test Item Value Reference Range Interpretation Comments INR (test code = INR) 1.17 1 0.85-1.17 [facility] PcxqsypEQTNMOXQVZ7793-42-37 02:39:008.4[facility] HermannHEMATOLOGY 2018-08-25 02:39:0076[facility] YwdxgpnEQLSDWIXSG3290-67-55 02:39:0019.3[facility] AetiskoECCQKRKTXO7892-19-65 02:39:0025.7[facility] YcukgheAIBJUHHWXQ9179-09-93 02:39:0078.5[facility] RbpuilcVSRCZHVHET6237-25-01 02:39:0031.7[facility] Levon DCEGAIGDIY3204-47-78 02:39:00* Test Item Value Reference Range Interpretation Comments MCH (test code = MCH) 24.8 pg 27.0-31.0 [facility] MditregYJHEVIVBIB2384-98-08 02:39:003.27[facility]annHEMATOLOGY 2018-08-25 02:39:008.1[facility] MnfomggHJRLYMTOYW7775-43-06 02:39:002.3[facility]annURINE AND HLBKF6988-15-71 09:25:00Negative (08/04/18 4:25 AM)[facility]annBLOOD BANK LWRVSLJ2955-70-98 06:09:00Negative (08/04/18 1:09 AM)[facility] HermannCARDIAC ISCUXMW7938-59-21 06:09:00<0.02[facility]annCHEM PANEL 2018-08-04 06:09:67189Ytrwdjvs HermannCHEM LTEAM0052-69-95 06:09:000.2[facility] HermannCHEM RCAFC5378-26-19 06:09:00* Test Item Value Reference Range Interpretation Comments A/G Ratio (test code = A/G Ratio) 0.3 1 0.7-1.6 [facility]annCHEM FKJAA5884-17-81 06:09:005.8[facility]annCHEM PANEL 2018-08-04 06:09:000.3[facility] HermannCHEM SOONN4857-67-77 06:09:000.5[facility]annCHEM WZDEF7771-07-97 06:09:0077[facility]annCHEM VKRFY4664-12-64 06:09:0059[facility]annCHEM ANEHK5837-43-76 06:09:0023[facility]annCHEM ZOQTX9294-54-66 06:09:001.9[facility]annCHEM GFBTN7887-07-65 06:09:007.7 [facility]annCHEM ZTMFC1093-32-88 06:09:001.6[facility]annCHEM PANEL 2018-08-04 06:09:78326Qvxslutk HermannCHEM GSROS0282-32-88 06:09:91288Exramidy HermannCHEM ARYJH7818-29-23 06:09:007.8[facility]annCHEM FJUDT1155-14-24 06:09:0024[facility]annCHEM TPEKB4833-89-70 06:09:51313Qblhlkpf HermannCHEM ABJIY7095-18-11 06:09:003.3[facility]annCHEM OECDB9091-44-05 06:09:0013 [facility]annCHEM ECYVD6903-68-70 06:09:0099[facility]annCHEM PANEL 2018-08-04 06:09:000.89[facility] HermannCHEM SINYO2573-33-84 06:09:0013.3[facility] HermannDRUG CFGSZW4995-86-43 06:09:00Negative *NA*(08/04/18 1:09 AM)[facility]annDRUG CRGIAY0395-36-15 06:09:00Negative *NA*(08/04/18 1:09 AM)[facility] HermannDRUG JVSDZD7613-19-99 06:09:00Negative *NA*(08/04/18 1:09 AM)[facility] HermannDRUG FOLSQO7985-03-67 06:09:00Positive *ABN*(08/04/18 1:09 AM)[facility] HermannDRUG AMCBMV7353-92-67 06:09:00Negative *NA*(08/04/18 1:09 AM)[facility]annDRUG KTJCTF1313-62-13 06:09:00Negative *NA*(08/04/18 1:09 AM)[facility] HermannDRUG NHLGHS9461-13-26 06:09:00Negative *NA*(08/04/18 1:09 AM)[facility] HermannDRUG WCXPPN0442-02-60 06:09:00See Note (08/04/18 1:09 AM)[facility] LBYRQSGYVW3612-58-61 06:09:009.3[facility] RrcdcjhDRXFFVUERS2073-55-63 06:09:001.1 [facility] AxjfmzgMIQZLPRRPH9211-70-01 06:09:0010.6[facility] HermannHEMATOLOGY 2018-08-04 06:09:001.6[facility] UqtvcppIAWGJSSDPH7923-66-27 06:09:001.4[facility] RzpgdfaHWKNYMQZAJ4188-08-57 06:09:000.4[facility] IwtwlvjNATTVGMICG1773-08-60 06:09:000.4[facility] MqeaupgALXBJBDCPZ5818-46-37 06:09:0042.9[facility] XGVCGFDIQY2611-85-84 06:09:0036.1[facility] UhkjcuiEXZAYPKYHD9312-43-31 06:09:00* Test Item Value Reference Range Interpretation Comments PT (test code = PT) 14.2 s 12.0-14.7 [facility] OnjfosgXNPDKJNYUG0828-08-08 06:09:00* Test Item Value Reference Range Interpretation Comments INR (test code = INR) 1.12 1 0.85-1.17 [facility] BjlrbpySSKWIEGMTP5888-54-75 06:09:00* Test Item Value Reference Range Interpretation Comments PTT (test code = PTT) 36.4 s 22.9-35.8 [facility] AipjtqyHKKYOLCHSF8656-11-64 06:09:008.3[facility] HermannHEMATOLOGY 2018-08-04 06:09:0078[facility] BacmvvgZMSCHLTDNB5840-18-29 06:09:0079.3[facility] IojamicLBYUFNWTOE0628-52-95 06:09:00* Test Item Value Reference Range Interpretation Comments MCH (test code = MCH) 24.9 pg 27.0-31.0 [facility] AuodtzgFUKHKNOJGY6006-91-85 06:09:0031.4[facility] HermannHEMATOLOGY 2018-08-04 06:09:0018.5[facility] DvqflgzDEUHOREKPF4166-73-09 06:09:008.3[facility] ShfwaqpOCGBBFOYDU8851-33-86 06:09:003.8[facility] QgkkijoLIUOMLAPDA6573-47-63 06:09:003.34[facility] UcoibueJBSZEHWNVB1123-67-67 06:09:0026.5[facility] EZQXWAQARV7001-22-49 06:09:75621Gyufzryi DcmmjnkPRFVGNRDZP1327-13-56 06:09:00 0.362[facility]annURINE AND BVDZM7905-31-82 06:09:00Large *ABN*(08/04/18 1:09 AM)[facility] JFRKX7033-16-21 06:09:00Negative (08/04/18 1:09 AM) [facility] QQBXM1312-36-12 06:09:005[facility] AND GOTLK3081-10-28 06:09:0012[facility]annUR[facility] AND FFOZW8367-32-55 06:09:56262 [facility] UMLRI7834-31-56 06:09:00Negative (08/04/18 1:09 AM) [facility] YJOHW9579-21-06 06:09:00Negative *NA*(08/04/18 1:09 AM) [facility] CAYTU6490-17-16 06:09:00* Test Item Value Reference Range Interpretation Comments UA Spec Grav (test code = UA Spec Grav) 1.013 1 [facility] WWSNA6931-65-73 06:09:00Clear (08/04/18 1:09 AM) [facility] MTLSA5290-94-32 06:09:00Yellow *NA*(08/04/18 1:09 AM) [facility] VDSTA8978-67-37 06:09:00* Test Item Value Reference Range Interpretation Comments UA pH (test code = UA pH) 6.0 1 5.0-8.0 [facility]annCHEM RQAJL7581-76-24 08:02:001.7[facility] HermannCHEM PANEL 2018-06-05 08:02:14462Uokjqybd HermannCHEM SOKDP6837-81-32 08:02:003.5[facility] HermannCHEM XINEO7713-97-02 08:02:0026[facility] HermannCHEM MJVQR8695-72-28 08:02:13592Qhffuymb HermannCHEM QUZJP7871-20-11 08:02:007.8[facility] HermannCHEM OOPPX1702-43-07 08:02:000.89[facility] HermannCHEM XQOLL2246-64-29 08:02:13846 [facility]annCHEM VODKL9020-37-68 08:02:0091[facility] HermannCHEM PANEL 2018-06-05 08:02:0011[facility] HermannCHEM WSETD1763-51-15 08:02:008.5[facility] UzmeukoXKYPAIEYOH9897-00-25 08:02:0068[facility] QpbczffCYUTRBRBJS0831-66-40 08:02:009.5[facility] WqocasoNHZCTYPHPL4723-35-95 08:02:0084.3[facility] MBJHIWBUQD5532-79-22 08:02:0029.3[facility] ZsljwaqYFBRGQLNLK7413-11-04 08:02:00 32.1[facility] UyiyyfqUTQSFYABLM2070-77-29 08:02:0020.5[facility] HermannHEMATOLOGY 2018-06-05 08:02:00* Test Item Value Reference Range Interpretation Comments MCH (test code = MCH) 27.1 pg 27.0-31.0 [facility] WeqopnzQFOSZWIEIW8485-49-39 08:02:009.4[facility] HermannHEMATOLOGY 2018-06-05 08:02:003.0[facility] ZjidyndYGKNMXQBBB2539-79-71 08:02:003.48[facility] IjvmqetJTBHOLMTLL3289-33-93 08:02:0056.8[facility] KznczdfDSTDUMBCMV7217-05-58 08:02:0018.1[facility] ErptyfzSLJNFOUTDE6760-74-73 08:02:0017.9[facility] IHTNJZUUAG3330-69-75 08:02:006.5[facility] QndbfysYUOMNQILRT4133-24-35 08:02:000.7 [facility] NzsifisIOBSJHSBYK5211-88-26 08:02:001.7[facility] HermannHEMATOLOGY 2018-06-05 08:02:000.2[facility] QmsawdrFTEOAUNMLC1607-83-04 08:02:000.5[facility] YzhwhnpVHTJEWMHAU8105-66-86 08:02:000.5[facility] HermannPARATHYROID PROFILE 2018-06-04 22:55:001.06[facility] HermannPARATHYROID PNYUUDM9576-39-73 22:55:00 1.07[facility] HermannCHEM EMHHA4575-55-31 18:00:0069.0[facility] HermannCHEM PANEL 2018-06-04 18:00:55530Xfabqisc HermannCHEM DKQMB2568-07-15 18:00:008.3[facility] HermannCHEM UPWFE5881-39-98 18:00:0028[facility] HermannCHEM KZDNH7605-44-69 18:00:006.9[facility] HermannCHEM ECLJB1701-30-37 18:00:04723Tineeqgc HermannCHEM CNPYT3402-09-21 18:00:000.83[facility] HermannCHEM LVSRI0724-62-98 18:00:003.3 [facility] HermannCHEM BYEOG1579-67-76 18:00:63060Kdyzztsb HermannCHEM PANEL 2018-06-04 18:00:0011[facility] HermannCHEM EZQDC2885-71-37 18:00:89214Zqnesylf MauoqwoPAGWEVMDJD4856-91-40 18:00:008.8[facility] WumgddrBXZKYLTKHE1251-40-12 18:00:0033.5[facility] ZbxmzefDUCPSZUMPD9924-33-71 18:00:0026.4[facility] WCWKMNTKEY6498-09-50 18:00:0081.8[facility] IuofrqiRVIIAMKYBP7287-63-45 18:00:00 19.8[facility] TdazzmbMOBKPSIUYA1887-24-34 18:00:00* Test Item Value Reference Range Interpretation Comments MCH (test code = MCH) 27.4 pg 27.0-31.0 [facility] QmwjaviKKXRPXOPBT2339-39-87 18:00:0051[facility] HermannHEMATOLOGY 2018-06-04 18:00:002.3[facility] KpbsyglULPQRUIBBA5919-59-38 18:00:003.23[facility] TubtxewBGXWJKZQQR3634-58-41 18:00:009.1[facility] ZgczaijJJJHMKZJFF9561-90-48 18:00:0015.2[facility] NwoghbsVXREFFECTJ1271-27-82 18:00:001.3[facility] Levon HGNVUDEOJN9648-22-45 18:00:000.5[facility] IslaokfTUTZUVCEPW3082-79-03 18:00:006.1 [facility] CahqhwuERGUDELQYZ6768-81-80 18:00:000.9[facility] HermannHEMATOLOGY 2018-06-04 18:00:000.1[facility] WthxhyiVPGTYAWVDC9341-95-28 18:00:000.3[facility] FqxytuiFYPRCDNTCD6539-79-88 18:00:0019.8[facility] UmlvehzCWMKACAONW0103-18-98 18:00:0058.0[facility] HermannBODY WMWPNP3520-13-38 17:05:00Ascites *NA*(06/04/18 12:05 PM)[facility] HermannBODY DXAJZN8465-53-93 17:05:000.7[facility] HermannBODY EAWECJ8951-84-93 17:05:00Moderate Cloudy *ABN*(06/04/18 12:05 PM)[facility] BODY YRTOOL6497-24-23 17:05:8193763[place] HermannBODY SNFGMO5953-72-93 17:05:00Red *ABN*(06/04/18 12:05 PM)[facility]ann[facility] DIWHPT0905-92-41 17:05:65608Ycpjdnrb HermannBODY MDVMEK0643-61-55 17:05:00Ascites (06/04/18 12:05 PM)[facility]ann[facility] MJDERU1433-96-52 17:05:0019[facility]ann[facility] FLUIDS 2018-06-04 17:05:000[facility]ann[facility] ZXWMVL4857-94-84 17:05:0081[facility]ann[facility] XUYUKD8974-02-23 17:05:86816Lohiqyag HermannBODY FKBSVR1024-00-42 17:05:00Ascites *NA*(06/04/18 12:05 PM)[facility]ann[facility] JXHBUI5235-92-62 17:05:00Ascites *NA*(06/04/18 12:05 PM)[facility]ann[facility] YUSBMT2767-55-11 17:05:002.9[facility] HermannCHEM ZQHBE6525-74-66 19:58:01131.0[facility] CHEM TVOKI2035-62-56 19:58:0073[facility] HermannCHEM NMWNM1821-38-18 19:58:0029 [facility]annCHEM WLBUI6483-15-08 19:58:09355Qbcmgfco HermannCHEM PANEL 2018-06-03 19:58:007.1[facility] HermannCHEM DDTQE3873-27-13 19:58:003.6[facility] HermannCHEM FIVVH9145-15-87 19:58:76814Oxpzodup HermannCHEM SGAAB3003-01-75 19:58:05572Zbmdxaps HermannCHEM WJVOW9481-79-15 19:58:0010[facility] HermannCHEM FSMGB5345-64-41 19:58:001.18[facility] HermannCHEM LYMVC6874-79-06 19:58:008.6 [facility] BepvxrqTYWXCJACOR5827-04-98 19:58:009.4[facility] HermannHEMATOLOGY 2018-06-03 19:58:0028.1[facility] GpujflcKGORECUBAL4835-53-25 19:58:0082.2[facility] SxzgmehLOGNMOZZSN8014-35-03 19:58:00* Test Item Value Reference Range Interpretation Comments MCH (test code = MCH) 27.5 pg 27.0-31.0 [facility] FfcpctaIMEAZDSIMD6341-60-81 19:58:0033.4[facility] HermannHEMATOLOGY 2018-06-03 19:58:0019.9[facility] BbghfwpUYGZBPXSOG5541-47-39 19:58:003.2[facility] NueuwmnJQZVYIHIMK8662-06-30 19:58:003.42[facility] QboupdaIJTVEMJZSS2306-94-70 19:58:0059[facility] XvfbdiwGPUUZNNXWZ2812-62-15 19:58:008.7[facility] DIJSRAZBPC0232-08-68 19:58:002.0[facility] ZsqlsgwRZMNMDDJLZ7664-07-13 19:58:000.5 [facility] YxayiaaWVZAIPOKLD7941-53-68 19:58:000.4[facility] HermannHEMATOLOGY 2018-06-03 19:58:000.2[facility] TifqqqoEQZVSFXDML6336-40-63 19:58:000.9[facility] BemjpwkYTPQRHUKWD0749-69-71 19:58:0013.5[facility] UcvoeytBXBANHXFDL2779-45-23 19:58:006.3[facility] TygkumfYRDUCSTDRP1601-21-00 19:58:0064.6[facility] CRPYTOHLPT7794-35-79 19:58:0014.7[facility] JithknhKOEXUIPFDY8304-50-36 19:58:001+ (06/03/18 2:58 PM)[facility] UgbkbqcOXLTQLYHFM1820-48-01 19:58:00Rare *ABN*(06/03/18 2:58 PM)[facility] UqikukoKAUBBLDQTR4283-66-98 19:58:001+ *ABN*(06/03/18 2:58 PM)[facility] QttbcsxQTKRXWPUYV6366-13-66 19:58:00Normal (06/03/18 2:58 PM)[facility] PlrnziaBYLIOPEWHQ8208-49-98 19:58:00See Note (06/03/18 2:58 PM)[facility] HermannPARATHYROID COYBKAC5338-33-62 19:58:001.00[facility] HermannPARATHYROID BSSZCAI1341-34-23 19:58:001.00[facility] HermannANEMIA STUDY 2018-06-03 09:54:0057[facility] HermannANEMIA BBFOZ3959-77-71 09:54:0044[facility] HermannANEMIA UBXTI8423-80-34 09:54:0014[facility] HermannANEMIA KXQWY6438-99-37 09:54:60952Bzfkszke HermannANEMIA IQELQ1040-46-52 09:54:61755Irnxmhcx [facility] SPECIAL NWIJKWHYO6094-60-93 09:54:000.09[facility] HermannTUMOR FVMQPCC1507-31-10 09:54:003.3[facility] HermannTUMOR NVGRDIE7621-83-43 09:54:005.0[facility] CHEM TJBSU8590-96-44 16:54:66180.0[facility] HermannPARATHYROID PXOFCZR0401-38-08 16:54:000.95[facility] HermannPARATHYROID HQASNVU5821-58-38 16:54:000.94[facility] HermannCHEM DNHDR6596-95-68 10:44:001.2[facility] HermannCHEM TCAPU2994-86-76 10:44:002.8[facility] HermannCHEM VNQNI0119-70-96 10:44:00* Test Item Value Reference Range Interpretation Comments B/C Ratio (test code = B/C Ratio) 15 1 6-25 [facility] HermannCHEM EDOHS0383-49-82 10:44:0064[facility] HermannCHEM PANEL 2018-06-02 10:44:0045[facility] HermannCHEM VVZZL0395-94-02 10:44:001.4[facility] HermannCHEM TNSSM4774-26-27 10:44:0015[facility] HermannCHEM VWOEP6937-48-90 10:44:00* Test Item Value Reference Range Interpretation Comments A/G Ratio (test code = A/G Ratio) 0.3 1 0.7-1.6 [facility] HermannCHEM LLCDE2928-37-53 10:44:001.7[facility] HermannCHEM PANEL 2018-06-02 10:44:007.3[facility] HermannCHEM UJRON5397-79-52 10:44:005.6[facility] FvmnodkUISGFFLZGV0072-75-79 10:44:00* Test Item Value Reference Range Interpretation Comments INR (test code = INR) 1.34 1 0.85-1.17 [facility]IORFLXYKM0932-85-21 10:44:00* Test Item Value Reference Range Interpretation Comments PT (test code = PT) 16.3 s 12.0-14.7 [facility] HospitalQydchxrRURKIHFNDD4594-41-62 10:44:00* Test Item Value Reference Range Interpretation Comments PTT (test code = PTT) 36.5 s 22.9-35.8 [facility] HermannCHEM LGYPH9518-31-09 02:13:001.1[facility] HermannBLOOD BANK OJKQITS5158-11-82 01:02:00Negative (06/01/18 8:02 PM)[facility]annUR[facility] AND KCTMM3186-39-44 21:22:00Positive *ABN*(06/01/18 4:22 PM)[facility] HermannCHEM EWYHC8164-36-60 16:01:0049[facility] HermannCHEM WWAGK4737-02-48 16:01:0015 [facility]annCHEM ALEPX7792-37-46 16:01:0074[facility] HermannCHEM PANEL 2018-06-01 16:01:001.2[facility] HermannCHEM DYIQN5419-31-01 16:01:001.9[facility] HermannCHEM PMBML6253-55-90 16:01:008.2[facility] HermannCHEM XBJWS6463-86-54 16:01:006.3[facility] HermannCHEM HGXNM9812-11-31 16:01:00* Test Item Value Reference Range Interpretation Comments A/G Ratio (test code = A/G Ratio) 0.3 1 0.7-1.6 [facility]annCHEM KQZGN6808-13-53 16:01:00* Test Item Value Reference Range Interpretation Comments B/C Ratio (test code = B/C Ratio) 13 1 6-25 [facility] HermannCHEM YQJXH4877-31-28 16:01:26245Rryckyji HermannHEMATOLOGY 2018-06-01 16:01:00* Test Item Value Reference Range Interpretation Comments INR (test code = INR) 1.18 1 0.85-1.17 [facility] PwpoahuTCROWRXLRE4586-49-19 16:01:00* Test Item Value Reference Range Interpretation Comments PT (test code = PT) 14.8 s 12.0-14.7 [facility] UymjkpaMHMBRDUHLD0518-72-17 16:01:00* Test Item Value Reference Range Interpretation Comments PTT (test code = PTT) 33.9 s 22.9-35.8 [facility]annUR[facility] AND DKAEL1962-04-34 16:01:007[facility]annUR[facility] AND ITIOH8014-75-01 16:01:00Negative (06/01/18 11:01 AM)[facility] AND BMWHJ3195-30-10 16:01:0097[facility] AND PWHWR2898-72-32 16:01:00 Negative (06/01/18 11:01 AM)[facility] AND WRYBH8451-62-07 16:01:00 Large *ABN*(06/01/18 11:01 AM)[facility] AND OMSHB0206-25-94 16:01:00 * Test Item Value Reference Range Interpretation Comments UA Spec Grav (test code = UA Spec Grav) 1.020 1 [facility] AND CVYZL9112-27-98 16:01:00Slight *ABN*(06/01/18 11:01 AM) [facility] AND EWDGN9218-78-41 16:01:00Dark Yellow (06/01/18 11:01 AM) [facility] CKBFG0150-86-99 16:01:00Negative *NA*(06/01/18 11:01 AM)[facility] AND BSIYN1908-17-43 16:01:00Small *ABN*(06/01/18 11:01 AM)[facility] AND APKMY0588-05-27 16:01:00* Test Item Value Reference Range Interpretation Comments UA pH (test code = UA pH) 6.0 1 5.0-8.0 [facility]annUR[facility] AND ZJEIO9288-06-23 16:01:00Negative *NA*(06/01/18 11:01 AM)[facility] ABD PELVIS W/RRYX0708-52-60 18:57:00 Name: JOCELIN CORREA [facility] : 1970 Age/S: 48 / M [address] [facility] Unit #: [id number] Loc: [place] [address] Phys: Giovanna Syed MD Acct: [id number] Di s Date: Status: REG ER PHONE #: [phone] Exam Date: 05/05/20181826 FAX #: Reason: abd pain EXAMS: CPT CODE: [id number] CT ABD PELVIS W/CONT 35562 HISTORY: Abdominal pain. COMPARISON: December 18, 2017. [...] 1 Signed Report (CONTINUED) Name: JOCELIN CORREA [facility] : 1970 [age]/S: [age] / M [address] [facility] Unit #: [id number] Loc: [place] [address] Phys: Sanya Syed MD Acct: [id number] Dis Date: Status: REG ER PHONE #: [phone] Exam Date: 05/05/20181826 FAX #: [phone] Reason: abd pain EXAMS: CPT CODE: [id number] CT ABD PELVIS W/CONT 98387 <Continued> varices. No hydroureteronephrosis. Punctate bilateral 1 [...] (1856) Matthew.TH4 Orig Print D/T: S: 05/05/2018 (190) CTDI: [...] CA) 8.1 mg/dL 8.5-10.1 L HEPATIC FUNCTION XAOEL4753-94-83 16:39:00* Test Item Value Reference Range Interpretation [...] reference range due to change in reagent. PPAQSK0226-68-10 16:39:00* Test Item Value Reference Range Interpretation Comments LIPASE (test code = LIP) 72 U/L 73.0-393.0 L EAFQZOCO-Q2674-66-23 16:39:00* Test Item Value Reference Range Interpretation Comments TROPONIN-I (test code = TROPI) <0.015 ng/mL 0-0.045 N ZRLHMIG8236-43-05 16:39:00* Test Item Value Reference Range Interpretation [...] ANADDITIONAL CHARGE TO THE PATIENT. BASIC METABOLIC ITAUA7414-05-57 16:30:00* Test Item Value Reference Range Interpretation [...] code = CA) mg/dL 8.5-10.1 HEPATIC FUNCTION GRJGG9003-22-95 16:30:00* Test Item Value Reference Range Interpretation [...] TOTAL (test code = ALKP) IUnit/L 45-117 RFIYDP2433-71-87 16:30:00* Test Item Value Reference Range Interpretation Comments LIPASE (test code = LIP) U/L 73.0-393.0 ZVFNCWWG-K4664-92-23 16:30:00* Test Item Value Reference Range Interpretation Comments TROPONIN-I (test code = TROPI) ng/mL 0-0.045 LATDSUA9342-55-16 16:30:00* Test Item Value Reference Range Interpretation Comments ALCOHOL (test code = ALC) mg/dL 0-3 CBC W/O NCXA0908-38-49 16:10:00* Test Item Value Reference Range Interpretation [...] = MPV) 10.0 fL 6.7-11.0 N CARDIAC CWLUANH9421-07-67 23:31:00<0.02[facility] HermannCARDIAC PQKMPIA8579-84-98 23:31:0030[facility] HermannCHEM OGMNA7966-82-96 23:31:88155Zagzmufe HermannCHEM EMXYF1306-63-86 23:31:009[facility] HermannCHEM WAPYB6137-52-47 23:31:000.78 [facility]annCHEM AQSKQ2889-23-11 23:31:0064[facility]annCHEM PANEL 2018-04-18 23:31:000.4[facility] HermannCHEM MNPHG6725-32-96 23:31:0015[facility] HermannCHEM ENVRT5953-54-49 23:31:003.7[facility] HermannCHEM XZKXQ6926-28-59 23:31:99548Vubawklk HermannCHEM PLLJU9329-80-81 23:31:67631Zamonwpa HermannCHEM NNIEV9759-41-13 23:31:003.7[facility] HermannCHEM KIJAP1591-45-95 23:31:007.5 [facility]annCHEM JUVKO1280-64-44 23:31:008.7[facility] HermannCHEM PANEL 2018-04-18 23:31:0027[facility] HermannCHEM IPZYA9424-05-09 23:31:0019[facility] HermannCHEM YSOLA9007-39-15 23:31:0098[facility] HermannCHEM CKIGY7029-47-98 23:31:00* Test Item Value Reference Range Interpretation Comments B/C Ratio (test code = B/C Ratio) 12 09-04 [facility] HermannCHEM XFXXU7755-43-77 23:31:00* Test Item Value Reference Range Interpretation Comments A/G Ratio (test code = A/G Ratio) 1.0 1 0.7-1.6 [facility]annCHEM EJJMW5338-86-90 23:31:009.7[facility] HermannCHEM PANEL 2018-04-18 23:31:003.8[facility] TzmkrrdPCFEGFLWSBSX0842-99-57 23:31:009.7[facility] HfatsntBHDPVAKNUCET1495-15-12 23:31:00* Test Item Value Reference Range Interpretation Comments B/C Ratio (test code = B/C Ratio) 12 09-04 [facility] GfsqfijPZZKZDINTTZY9325-88-32 23:31:003.8[facility] HermannELECTROLYTES 2018-04-18 23:31:00* Test Item Value Reference Range Interpretation Comments A/G Ratio (test code = A/G Ratio) 1.0 1 0.7-1.6 [facility] ThgfxzcCNJILZSKSMNM2717-60-06 23:31:0098[facility] HermannELECTROLYTES 2018-04-18 23:31:009[facility] HauveoaYEEADDSLNMLW0496-15-02 23:31:000.78[facility] HixmhjtPQWPKMJGZNHF5974-66-42 23:31:49243Daxooyuj UmyouviCSFSRCAESZRK0567-84-71 23:31:003.7[facility] TcywqgzNOHSKLZQHYRL5785-77-48 23:31:96635Ffzopjvb [facility] YBURYDXJDNXH5126-31-89 23:31:0027[facility] NujchnbCXZHITREOUWG2207-23-01 23:31:00 8.7[facility] OhwrttaBWWJHMJXNSXD3123-05-78 23:31:007.5[facility] QSRWSMEVWGZC6448-93-16 23:31:003.7[facility] AahczshWPVSWFOHIUKZ0907-81-57 23:31:0019[facility] OvlaxrfOUQOLTJALXEW2655-90-06 23:31:0015[facility] EREOXYGJLSWM2113-28-41 23:31:0064[facility] VgrygnbLXSVOXBISYJG1842-81-01 23:31:00 0.4[facility] CiukgieHQYTYIEGNYDS8481-36-39 23:31:35258Zrrbxvnh HermannHEMATOLOGY 2018-04-18 23:31:009.3[facility] XfuyubhADQGMBBPRO7625-81-53 23:31:004.63[facility] UiskdkaGHRVLMYBLN6660-17-81 23:31:0014.2[facility] ZhnjkilQDNCCRESJM9051-66-49 23:31:0041.6[facility] UwyohlqFFIVWNIJOO8325-03-92 23:31:0089.8[facility] TBOJCVHIAK0683-53-15 23:31:00* Test Item Value Reference Range Interpretation Comments MCH (test code = MCH) 30.5 pg 27.0-31.0 [facility] JxqhzuwCMLLCDMVUZ7165-95-30 23:31:0034.0[facility] HermannHEMATOLOGY 2018-04-18 23:31:0014.5[facility] QeqqquuIOPCFKDRTG9638-11-60 23:31:97397Xjtcpbwv SdqrytqIATMLUHSKV0623-78-68 23:31:009.3[facility] DujqnqeSDDUBZUVCW9962-23-67 23:31:00* Test Item Value Reference Range Interpretation Comments INR (test code = INR) 1.05 1 0.85-1.17 [facility] LmuyevpDITLIAADWK4040-23-20 23:31:00* Test Item Value Reference Range Interpretation Comments PT (test code = PT) 13.5 s 12.0-14.7 [facility] XkpkqgxLVFSKBVKQK0490-46-72 23:31:00* Test Item Value Reference Range Interpretation Comments PTT (test code = PTT) 29.1 s 22.9-35.8 [facility] LwumgavMXJTQKPCYV2653-42-33 23:31:0069.7[facility] HermannHEMATOLOGY 2018-04-18 23:31:0023.9[facility] MakotusCZTCPHOJZZ1086-28-19 23:31:004.6[facility] DaaayckFLGDTEHZZS5572-03-22 23:31:001.5[facility] XodtlnnGQAEVCEWXL4208-12-27 23:31:000.3[facility] TxjhlnaNWGZVGJDVA6104-04-81 23:31:006.5[facility] EPYAZILVBD8538-78-65 23:31:002.2[facility] ErxmzdeYSMLSNMCUU5616-72-52 23:31:000.4 [facility] NgmnpypIKMMREGBSZ7527-38-91 23:31:000.1[facility] HermannURINE AND STOOL 2018-04-18 23:31:00Clear (04/18/18 5:31 PM)[facility]annUR[facility] AND STOOL 2018-04-18 23:31:00* Test Item Value Reference Range Interpretation Comments UA Spec Grav (test code = UA Spec Grav) 1.010 1 [facility]UR[facility] AND WTRSL7553-46-62 23:31:00* Test Item Value Reference Range Interpretation Comments UA pH (test code = UA pH) 8.0 1 5.0-8.0 [facility] AND ZTQPB8991-46-01 23:31:00Negative (04/18/18 5:31 PM) [facility] EZSBT2502-23-00 23:31:00Negative *NA*(04/18/18 5:31 PM) [facility] SUVXJ6956-91-50 23:31:00Negative *NA*(04/18/18 5:31 PM) [facility] OAOXF8103-87-60 23:31:00Negative *NA*(04/18/18 5:31 PM) [facility] PJVGV4237-95-64 23:31:00Negative (04/18/18 5:31 PM) [facility] VHSSZ6904-38-30 23:31:00Negative (04/18/18 5:31 PM) [facility] KKJMU1449-56-86 23:31:00Trace *ABN*(04/18/18 5:31 PM) [facility] PSZVG4220-06-51 23:31:006[facility]annUR[facility] AND BYGGH1737-30-43 23:31:001[facility]annUR[facility] AND JONKV4774-47-79 23:31:006 [facility]OL[facility] XOTQJ1225-68-52 21:06:00* Test Item Value Reference Range Interpretation [...] CA) 8.1 mg/dL 8.5-10.1 L HEPATIC FUNCTION JYOFJ0212-02-83 21:06:00* Test Item Value Reference Range Interpretation [...] reference range due to change in reagent. VFRTCRNYV7023-27-77 21:06:00* Test Item Value Reference Range Interpretation Comments MAGNESIUM (test code = MAG) 1.5 mg/dL 1.8-2.4 L BBZEAWBD-H6047-97-06 21:06:00* Test Item Value Reference Range Interpretation Comments TROPONIN-I (test code = TROPI) <0.015 ng/mL 0-0.045 N PROTHROMBIN JAMP5971-43-27 20:45:00* Test Item Value Reference Range Interpretation [...] (2.5-3.5) IS PATIENT ON ANTICOAGULANTS? NTHROMBOPLASTIN TIME UKDFWEH5441-21-36 20:45:00* Test Item Value Reference Range Interpretation Comments THROMBOPLASTIN TIME PARTIAL (test code = PTT) 40.7 seconds 25.0-36. 5 H IS PATIENT ON ANTICOAGULANTS? NBASIC METABOLIC KHBEL0051-10-06 20:40:00* Test Item Value Reference Range Interpretation [...] code = CA) mg/dL 8.5-10.1 HEPATIC FUNCTION IOCWX0877-72-19 20:40:00* Test Item Value Reference Range Interpretation [...] TOTAL (test code = ALKP) IUnit/L 45-117 BCOMJTHWJ2559-70-06 20:40:00* Test Item Value Reference Range Interpretation Comments MAGNESIUM (test code = MAG) mg/dL 1.8-2.4 IZGRVBFU-G3298-73-06 20:40:00* Test Item Value Reference Range Interpretation Comments TROPONIN-I (test code = TROPI) ng/mL 0-0.045 CBC W/O AFEV8863-08-08 20:37:00* Test Item Value Reference Range Interpretation [...] fL 6.7-11.0 N - CT HEAD/BRAIN W/O HLRB9463-28-38 20:09:00 Name: JOCELIN CORREA [facility] : 1970 Age/S: 48 / M [address] [facility] Unit #: [id number] Loc: [place], [place] [address] Phys: MARYAN ROBERTS MD Acct: [id number] Dis Date: Status: REG ER PHONE #: [phone] Exam Date: 04/18/20182007 FAX #: [phone] Reason: fall, head trauma, blood in ear EXAMS: CPT CODE: [id number] CT HEAD/BRAIN W/O CONT 92467 REASON FOR EXAM: fall, head trauma, blood [...] PAGE 1 Signed Report - US ABDOMEN GDAVQHWU0239-98-26 07:09:00 Name: CHELLY CORREA [facility] : 1970 Age/S: 48 / M [address] [facility] Unit #: [id number] Loc: [place] [address] Phys: Giovanna Rees MD Acct: [id number] Dis Date: Status: ADM IN PHONE #: [phone] Exam Date: 04/09/2018 0027 FAX #: [phone] Reason: abd pain. evaluate lesion in ascites EXAMS: CPT CODE: [id number] US ABDOMEN COMPLETE 70563 REASON FOR EXAM: abd pain. evaluate lesion [...] (708) Hitesh Orig Print D/T: S: 04/10/2018 (07) Probe: PAGE 1 Signed Report CBC W/AUTO BEKO2594-94-95 06:40:00* Test Item Value Reference Range Interpretation [...] = MDIFF) NO, ONLY SCAN NEEDED DIFFERENTIAL [id number] 06:40:00* Test Item Value Reference Range Interpretation Comments STAIN ACCEPTABILITY (test code = STN ACCEPTABLE) STAIN ACCEPTABLE POLYCHROMASIA (test code = POLC) 2+ ANISOCYTOSIS (test code = ANISO) 2+ MACROCYTOSIS (test code = MACR) 2+ PLATELET ESTIMATE (test code = PLTEST) DECREASED PLATELET MORPHOLOGY (test code = PLTMORPH) NORMAL BASIC METABOLIC [id number] 06:20:00* Test Item Value Reference Range Interpretation [...] code = CA) 7.8 mg/dL 8.5-10.1 L FORFVQPEA0815-88-29 06:20:00* Test Item Value Reference Range Interpretation Comments MAGNESIUM (test code = MAG) 1.4 mg/dL 1.8-2.4 L CBC W/AUTO [id number] 06:17:00* Test Item Value Reference Range Interpretation [...] = MDIFF) NO, ONLY SCAN NEEDED DIFFERENTIAL [id number] 06:17:00* Test Item Value Reference Range Interpretation Comments STAIN ACCEPTABILITY (test code = STN ACCEPTABLE) CABOT RINGS (test code = CAB) MORPHOLOGY COMMENT (test code = MOC) PLATELET ESTIMATE (test code = PLTEST) PLATELET MORPHOLOGY (test code = PLTMORPH) CBC W/AUTO [id number] 06:17:00* Test Item Value Reference Range Interpretation [...] = MDIFF) NO, ONLY SCAN NEEDED DIFFERENTIAL [id number] 06:17:00* Test Item Value Reference Range Interpretation Comments STAIN ACCEPTABILITY (test code = STN ACCEPTABLE) CABOT RINGS (test code = CAB) MORPHOLOGY COMMENT (test code = MOC) PLATELET ESTIMATE (test code = PLTEST) PLATELET MORPHOLOGY (test code = PLTMORPH) CBC W/AUTO [id number] 06:17:00* Test Item Value Reference Range Interpretation [...] = MDIFF) NO, ONLY SCAN NEEDED DIFFERENTIAL [id number] 06:17:00* Test Item Value Reference Range Interpretation Comments STAIN ACCEPTABILITY (test code = STN ACCEPTABLE) MORPHOLOGY COMMENT (test code = MOC) PLATELET ESTIMATE (test code = PLTEST) PLATELET MORPHOLOGY (test code = PLTMORPH) CBC W/AUTO [id number] 06:17:00* Test Item Value Reference Range Interpretation [...] = MDIFF) NO, ONLY SCAN NEEDED DIFFERENTIAL [id number] 06:17:00* Test Item Value Reference Range Interpretation Comments STAIN ACCEPTABILITY (test code = STN ACCEPTABLE) CABOT RINGS (test code = CAB) MORPHOLOGY COMMENT (test code = MOC) PLATELET ESTIMATE (test code = PLTEST) PLATELET MORPHOLOGY (test code = PLTMORPH) BASIC METABOLIC [id number] 06:12:00* Test Item Value Reference Range Interpretation [...] CALCIUM (test code = CA) mg/dL 8.5-10.1 XGVQTBMQA8204-19-04 06:12:00* Test Item Value Reference Range Interpretation Comments MAGNESIUM (test code = MAG) mg/dL 1.8-2.4 PROTHROMBIN [id number] 06:12:00* Test Item Value Reference Range Interpretation [...] PATIENT ON ANTICOAGULANTS? N- CT ABD PELVIS W/[id number] 13:44:00 Name: CHELLY CORREA [facility] : 1970 Age/S: 48 / M [address] [facility] Unit #: [id number] Loc: [place] [address] Phys: Fransisco Valdez MD Acct: [id number] Di s Date: Status: REG ER PHONE #: Exam Date: 04/09/2018 0716 FAX #: [phone] Reason: upper abd pain EXAMS: CPT CODE: [id number] CT ABD PELVIS W/CONT 77429 EXAM: CT of the abdomen a nd [...] Mandujano RT(R),(MR),(CT) CTDI: DLP: Trnscb Date/Time: 04/09/2018 (1344) ThanhGRW Orig Print D/T: S: 04/09/2018 (0824) CTDI: DLP: PAGE 1 Signed Report URINALYSIS [id number] 13:28:00* Test Item Value Reference Range Interpretation [...] per LPF NONE-FEW Urine Source? Clean CatchURINALYSIS MYLNWOOK9526-07-54 12:46:00* Test Item Value Reference Range Interpretation [...] HPF 0-5 Urine Source? Clean CatchCBC W/O [id number] 12:33:00* Test Item Value Reference Range Interpretation [...] MPV) 11.6 fL 6.7-11.0 H BASIC METABOLIC [id number] 12:08:00* Test Item Value Reference Range Interpretation [...] CA) 8.2 mg/dL 8.5-10.1 L HEPATIC FUNCTION [id number] 12:08:00* Test Item Value Reference Range Interpretation [...] reference range due to change in reagent. [id number] 12:08:00* Test Item Value Reference Range Interpretation Comments LIPASE (test code = LIP) 114 U/L 73.0-393.0 N [id number] 12:08:00* Test Item Value Reference Range Interpretation Comments TROPONIN-I (test code = TROPI) <0.015 ng/mL 0-0.045 N BASIC METABOLIC [id number] 11:58:00* Test Item Value Reference Range Interpretation [...] code = CA) mg/dL 8.5-10.1 HEPATIC FUNCTION [id number] 11:58:00* Test Item Value Reference Range Interpretation [...] TOTAL (test code = ALKP) IUnit/L 45-117 [id number] 11:58:00* Test Item Value Reference Range Interpretation Comments LIPASE (test code = LIP) U/L 73.0-393.0 BASIC METABOLIC [id number] 11:52:00* Test Item Value Reference Range Interpretation [...] code = CA) mg/dL 8.5-10.1 HEPATIC FUNCTION [id number] 11:52:00* Test Item Value Reference Range Interpretation [...] TOTAL (test code = ALKP) IUnit/L 45-117 [id number] 11:52:00* Test Item Value Reference Range Interpretation Comments LIPASE (test code = LIP) U/L 73.0-393.0 PROTHROMBIN [id number] 11:42:00* Test Item Value Reference Range Interpretation [...] (2.5-3.5) IS PATIENT ON ANTICOAGULANTS? NTHROMBOPLASTIN TIME [id number] 11:42:00* Test Item Value Reference Range Interpretation Comments THROMBOPLASTIN TIME PARTIAL (test code = PTT) 39.0 seconds 25.0-36. 5 H IS PATIENT ON ANTICOAGULANTS? NFLUID,[id number] 12:51:00 RUN DATE: 12/25/17 [employer] [employer] [facility] PAGE 1 RUN TIME: 1251 Specimen Inqui ry RUN USER: INTERFACE PATIENT: JOCELIN CORREA ACCT #: V [id number] LOC: AntonAlyssaOBS U #: [id number] AGE/SX: 47/M ROOM: [facility] RE12/19/17REG DR: Giovanna Rees MD : 70 BED: A DIS: 12/21/17 STATUS: DIS IN TLOC: SPEC #: [id number] RECD: 12/19/17 STATUS: SOUT REQ #: [id number] MELISA: 12/19/[address] [facility] [address]: Yuval Multani MD ENTERED: 12/19/17 SP TYPE: FL ASCITES OTHR DR: Ian Olivas i, MD ORDERED: GROSS COPIES TO: Ian Cook MD [address] [place] [address] Yuval Multani MD [address] [id number] PROCEDURES: GROSS (12/25/17-095 7) TISSUES: ASCITES FLUID - 20 ML RED CLINICAL HISTORY MELISA ECTION DATE: 12/19/17 HISTORY CIRRHOSIS, HEPATITIS C, PANCYTOPENIA FINAL DIAGNOSIS Ascites fluid for cytology, paracentesis: MESOTHELIAL CELLS, MACROPHAGES, WHITE BLOOD CELLS- PREDOMINATELY LYMPHOCYTES, AND R ED BLOOD CELLS NEGATIVE FOR MALIGNANCY DMW/arin D [id number], [phone] MACROSCOPIC The specimen consists of 20 mL of red fluid for conc entration and evaluation. A cell block will be prepared. GROSS PERFORM ED AT [facility] CONTINUED ON NEXT PAGE RUN DATE: 12/25/17 [facility] PAGE 2 RUN TIME: 1251 Specimen Inquiry RUN USER: INTERFACE SPEC #: [id number] PATIENT: SUNNYJOCELIN #[id number] (Continued)------ ------ MACROSCOPIC (Continued) [address] [facility], [place] [address] (P)[phone] MICROSCOPIC MICROSCOPIC PERFOR MED AT [facility] All of the stains, including any controls perfor med, stain appropriately. [facility] [address] [facility], [place] [address] (P)[phone] PERFORMING SITE Diagnosis perform ed at: [facility], [place] [address] [facility], [place] [id number] Signed SIGNATURE ON FILE SheehanMireya 12/25/17 1251 END OF REPORT KATHY 2017-12-22 13:27:00 RUN DATE: 12/22/17 [employer] PAGE 1 RUN TIME: 1327 Specimen Inqui ry RUN USER: INTERFACE PATIENT: JOCELIN CORREA ACCT #: V [id number] LOC: DEON U #: [id number] AGE/SX: 47/M ROOM: [facility] RE12/19/17REG DR: Giovanna Rees MD : 70 BED: A DIS: 12/21/17 STATUS: DIS IN TLOC: SPEC #: [id number] RECD: 12/21/17 [facility] #: [id number] MELISA: 12/20/17- SUBM DR: González Nunez MD ENTERED: 12/21/170 SP TYPE: STOMACH OTHR DR: Ian Olivas i, MD ORDERED: GROSS COPIES TO: González Nunez MD [address] [place] [address] Ian Cook MD [address] [place] [address] PROCEDURES: GROSS (12/22/17-1054 ) TISSUES: [...] STAIN NE GATIVE FOR MALIGNANCY RRB/sm D 60680, 70633 CONTINUED ON NEXT PAGE RUN DATE: 12/22/17 [place] [employer] [facility] PAGE 2 RUN TIME: 1327 Specimen Inquiry RUN USER: INTERF MARTIN SPEC # : [id number] PATIENT: SUNNYJOCELIN #[id number] (Cont inued) MACROSCOPIC The specimen is received in ecu healthi n, labeled with the patient's name, identified as "gastric", and consists of l megan king biopsy tissue measuring 0.35 cm in aggregate, submitted for H E and G iemsa stains. GROSS PERFORMED AT [facility] [address] [facility] [address] (p)[phone] MICR OSCOPIC MICROSCOPIC PERFORMED AT [facility] All of the stains, including any controls performed, stain appropriately. [facility] [address] [facility] [address] (p)[phone] PERFORM ING SITE Diagnosis performed at: [facility], [address] [place] [address] --------- --- Signed SIGNATURE ON FILE Elvis Schmid 12/22/17 1327 END OF REP ORT CHEM YYIKH3581-10-21 14:13:001.2[facility] JbsvjxuEXYJMEHJCL3499-54-15 07:45:001.0[facility] AiiqguxKFVUMQKAWW4149-39-41 07:45:001.9[facility] BAWLISVOBU1253-57-45 07:45:000.2[facility] TqeuqomOMAXLORTZA3576-87-50 07:45:000.5 [facility] MbdgxlmTYAHCXDASJ5374-84-86 07:45:000.9[facility]ann[facility]MATOLOGY 2017-09-16 07:45:005.5[facility] WipeyxvCNZTAYTDFV0110-75-00 07:45:0053.9[facility] JosrxdmLSPQJEXGAI1048-72-03 07:45:0012.6[facility] CtluhzaJKFCSPCDIN5681-59-94 07:45:0027.1[facility] NwodhcgJOIRPSGDIU5219-88-49 07:45:00* Test Item Value Reference Range Interpretation Comments PTT (test code = PTT) 33.3 s 22.9-35.8 [facility] HospitalJibemoqESPFLAJHKR5396-64-77 07:45:00* Test Item Value Reference Range Interpretation Comments INR (test code = INR) 1.53 1 0.85-1.17 [facility] HospitalXzbdxywYRWKWOJOSA0072-76-56 07:45:00* Test Item Value Reference Range Interpretation Comments PT (test code = PT) 18.5 s 12.0-14.7 [facility] BlzrmimLMKMKCIDIX5690-05-30 07:45:0033.1[facility]annHEMATOLOGY 2017-09-16 07:45:0029.3[facility] PzgqciaAQHZSSWIVF6106-93-00 07:45:0097.4[facility] CjfrqquZRAXZBTWWJ9651-30-89 07:45:00* Test Item Value Reference Range Interpretation Comments MCH (test code = MCH) 32.2 pg 27.0-31.0 [facility] OaghwovLWRDANDSNA9987-02-94 07:45:0068[facility]annHEMATOLOGY 2017-09-16 07:45:0017.5[facility] WotnjdnEIBTTRLGAV1365-19-46 07:45:008.2[facility] TydvnlbXCDMFFUFAW3110-29-84 07:45:003.01[facility] NztzgefZFXONHENTO2918-40-60 07:45:009.7[facility] RddakosVBUNCCXKWO0265-21-73 07:45:003.6[facility] CARDIAC TJKVGSO7401-26-64 07:24:00<1.3[facility]annCARDIAC RGAVVYA2912-21-57 07:24:00<1.0[facility]annCARDIAC GLDYRTI7324-52-70 07:24:0079[facility] CARDIAC LSQVEPK0430-28-53 07:24:00<0.02[facility] HermannCHEM TRZHL4307-80-44 07:24:006.0[facility] HermannCHEM CGEHT6862-23-23 07:24:00* Test Item Value Reference Range Interpretation Comments B/C Ratio (test code = B/C Ratio) 16 1 6-25 [facility]annCHEM HYNUU5163-77-42 07:24:00* Test Item Value Reference Range Interpretation Comments A/G Ratio (test code = A/G Ratio) 0.3 1 0.7-1.6 [facility]annCHEM LFCNW5759-69-36 07:24:0099[facility] HermannCHEM PANEL 2017-09-16 07:24:0086[facility] HermannCHEM AUWDE0473-69-73 07:24:001.5[facility] HermannCHEM OGHUW7686-38-23 07:24:007.7[facility]annCHEM ICFLX5202-31-89 07:24:89441Lhmxnzzd HermannCHEM LSBHV7223-97-44 07:24:13877Kzwcqhob HermannCHEM OLTSW1024-94-60 07:24:004.7[facility] HermannCHEM HNDLW0231-45-73 07:24:008.3 [facility]annCHEM AZSIH6294-24-36 07:24:0026[facility] HermannCHEM PANEL 2017-09-16 07:24:007.8[facility] HermannCHEM QWPUX0594-95-55 07:24:0033[facility] HermannCHEM VUKRU1774-60-97 07:24:001.8[facility] HermannCHEM RSZNT8766-33-02 07:24:000.82[facility] HermannCHEM XHAJA0132-69-82 07:24:0013[facility] HermannCHEM RYUZG3907-01-34 07:24:64341Ulnqjvpj HermannCHEM TXTWR4893-25-60 07:24:0095 [facility]annCHEM LGIGV3616-96-56 07:24:65563Xdvbvayv HermannURINE AND STOOL 2017-09-16 07:24:004.0[facility]annURINE AND MPNYD3762-73-33 07:24:00Negative (09/16/17 2:24 AM)[facility]ann[facility] AND FPDXB6895-94-10 07:24:00Negative (09/16/17 2:24 AM)[facility] AND CBMKM7067-32-33 07:24:003[facility]ann[facility] AND NVMHT3684-26-02 07:24:0069[facility]annURINE AND STOOL 2017-09-16 07:24:00Slight *ABN*(09/16/17 2:24 AM)[facility]ann[facility] AND STOOL 2017-09-16 07:24:00* Test Item Value Reference Range Interpretation Comments UA Spec Grav (test code = UA Spec Grav) 1.019 1 [facility]annURINE AND CHJMS8208-54-85 07:24:00* Test Item Value Reference Range Interpretation Comments UA pH (test code = UA pH) 6.0 1 5.0-8.0 [facility]ann[facility] UAGBN5517-19-60 07:24:00Moderate *ABN*(09/16/17 2:24 AM) [facility] HermannURINE AND LGYGB1395-50-51 07:24:00Negative *NA*(09/16/17 2:24 AM) [facility] Glzdblr9608-40-71 16:48:00* Test Item Value Reference Range Interpretation Comments Blood Culture (test code = 27577009) NO GROWTH AFTER 5 DAYS, FINAL REPORT [facility] A IgM Sihjasnp6322-52-96 10:18:00* Test Item Value Reference Range Interpretation Comments Hepatitis A IgM Antibody (test code = 35276-7) Negative [facility] B Surface Crnkqnm1875-17-75 10:18:00* Test Item Value Reference Range Interpretation Comments Hepatitis B Surface Antigen (test code = 5196-1) Negative [facility] B Core IgM Bxwkczsp6887-82-85 10:18:00* Test Item Value Reference Range Interpretation Comments Hepatitis B Core IgM Antibody (test code = 69505-1) Negative [facility] C Igybajyw2036-94-55 10:18:00* Test Item Value Reference Range Interpretation Comments Hepatitis C Antibody (test code = 58743-7) 11.0- Reference Range: 0.0 - 0.9 s/co ratioNegative: < 0.8Indeterminate: 0.8 - 0.9Positive: > 0.9 The CDC recommends that a positive HCV antibody result be followed up with a HCV Nucleic Acid Amplification test (423305).Results called to SERG LINTON RN at 1017 on 06/20/17 by Michael Whalen. NICKIE NIELSEN.Testing performed by:[employer] [id number]: Lopez Morgan [facility] CenterPlatelet Vauhufrv4356-07-43 10:18:00* Test Item Value Reference Range Interpretation Comments Platelet Estimate (test code = 35953-4) SLIGHTLY DECREASED [facility] HospitalPlatelet Morphology Vazabsl6204-98-63 10:18:00* Test Item Value Reference Range Interpretation Comments Platelet Morphology Comment (test code = 28769-3) FEW GIANT [facility] HospitalHypochromasia2018-04-09 10:18:00* Test Item Value Reference Range Interpretation Comments Hypochromasia (test code = 728-6) MODERATE [facility] HospitalPoikilocytosis2018-04-09 10:18:00* Test Item Value Reference Range Interpretation Comments Poikilocytosis (test code = 779-9) SLIGHT [facility] HospitalAnisocytosis2018-04-09 10:18:00* Test Item Value Reference Range Interpretation Comments Anisocytosis (test code = 702-1) SLIG [facility] HospitalRed Cell Morphology Medqjib9630-89-54 10:18:00* Test Item Value Reference Range Interpretation Comments Red Cell Morphology Comment (test code = 6742-1) NORMAL [facility] HospitalProthrombin Fyvk7496-81-18 08:34:00* Test Item Value Reference Range Interpretation Comments Prothrombin Time (test code = 5902-2) 18.4 11.9-14.5 H [facility] HospitalProthromb Time International Ratio 2017-06-19 08:34:00* Test Item Value Reference Range Interpretation Comments Prothromb Time International Ratio (test code = 6301-6) 1.66 Oral Anticoagulant Therapy INR Values:1. Low Intensity Therapy 1.5 - 2.02 . Moderate Intensity Therapy 2.0 - 3.03. High Intensity Therapy(1) 2.5 - 3. 54. High Intensity Therapy(2) 3.0 - 4.05. Panic Value INR > 5.0 [facility] HospitalActivated Partial Thromboplast Time 2017-06-19 08:34:00* Test Item Value Reference Range Interpretation Comments Activated Partial Thromboplast Time (test code = 46846-0) 37.5 23.8-35.5 H [facility] HospitalTotal Fzygjzrvz0685-27-80 08:09:00* Test Item Value Reference Range Interpretation Comments Total Bilirubin (test code = 1975-2) 2.0 0.2-1.2 H [facility] Centerodium Tcyqs4341-52-92 08:01:00* Test Item Value Reference Range Interpretation Comments Sodium Level (test code = 2951-2) 131 136-145 L [facility] HospitalPotassium Opolr8294-40-31 08:01:00* Test Item Value Reference Range Interpretation Comments Potassium Level (test code = 2823-3) 3.5 3.5-5.1 [facility] HospitalChloride Jkzik0436-09-45 08:01:00* Test Item Value Reference Range Interpretation Comments Chloride Level (test code = 2075-0) 102 98-107 [facility] HospitalCarbon Dioxide Ycxus1116-58-42 08:01:00* Test Item Value Reference Range Interpretation Comments Carbon Dioxide Level (test code = 2028-9) 27 22-29 [facility] HospitalAnion Fxu0441-21-65 08:01:00* Test Item Value Reference Range Interpretation Comments Anion Gap (test code = 05359-5) 5.5 8-16 L [facility] HospitalBlood Urea Pzwnnkwb4052-08-56 08:01:00* Test Item Value Reference Range Interpretation Comments Blood Urea Nitrogen (test code = 3094-0) 8 7-26 [facility] HospitalCreatinine2018-04-09 08:01:00* Test Item Value Reference Range Interpretation Comments Creatinine (test code = 2160-0) 0.85 0.72-1.25 [facility] HospitalBUN/Creatinine Qjxum4884-85-13 08:01:00* Test Item Value Reference Range Interpretation Comments BUN/Creatinine Ratio (test code = 3097-3) 9 6-25 [facility] HospitalEstimat Glomerular Filtration Rate 2017-06-19 08:01:00* Test Item Value Reference Range Interpretation Comments Estimat Glomerular Filtration Rate (test code = 54582-0) 60- >60 Ranges were taken from the National Kidney Disease Education Program and the [facility] Kid[facility] Foundation literature.Reference ranges:60 or greater: Yilooo04-51 ( for 3 consecutive months): Chronic kidney disease 15 or less: Kidney failureTexas Orthopedic HospitalGlucose Pggkl6297-27-90 08:01:00* Test Item Value Reference Range Interpretation Comments Glucose Level (test code = FSS4430) 121 74-118 H [facility] HospitalCalcium Brphi2089-47-48 08:01:00* Test Item Value Reference Range Interpretation Comments Calcium Level (test code = 41474-8) 7.3 8.4-10.2 L [facility] HospitalAspartate Amino Transf (AST/SGOT) 2017-06-19 08:01:00* Test Item Value Reference Range Interpretation Comments Aspartate Amino Transf (AST/SGOT) (test code = Aspartate Amino Transf (AST/SGOT)) 51 5-34 H [facility] HospitalAlanine Aminotransferase (ALT/SGPT) 2017-06-19 08:01:00* Test Item Value Reference Range Interpretation Comments Alanine Aminotransferase (ALT/SGPT) (test code = 1742-6) 17 0-55 [facility] HospitalTotal Wuifutn1345-78-95 08:01:00* Test Item Value Reference Range Interpretation Comments Total Protein (test code = 2885-2) 6.5 6.5-8.1 [facility] HospitalAlbumin2018-04-09 08:01:00* Test Item Value Reference Range Interpretation Comments Albumin (test code = 1751-7) 1.6 3.5-5.0 L [facility] HospitalGlobulin2018-04-09 08:01:00* Test Item Value Reference Range Interpretation Comments Globulin (test code = 73560-0) 4.9 2.3-3.5 H [facility] HospitalAlbumin/Globulin Qmqux7872-49-76 08:01:00 * Test Item Value Reference Range Interpretation Comments Albumin/Globulin Ratio (test code = 1759-0) 0.3 0.8-2.0 L [facility] HospitalAlkaline Fasvkvyewhu5425-04-15 08:01:00* Test Item Value Reference Range Interpretation Comments Alkaline Phosphatase (test code = 6768-6) 47 40-150 [facility] HospitalWhite Blood Wdctn6453-36-94 07:48:00* Test Item Value Reference Range Interpretation Comments White Blood Count (test code = 6690-2) 2.52 4.8-10.8 L [facility] HospitalRed Blood Lzfpg8152-14-66 07:48:00* Test Item Value Reference Range Interpretation Comments Red Blood Count (test code = 789-8) 2.78 4.3-5.7 L [facility] HospitalHemoglobin2018-04-09 07:48:00* Test Item Value Reference Range Interpretation Comments Hemoglobin (test code = 96219-8) 9.3 14.0-18.0 L [facility] HospitalHematocrit2018-04-09 07:48:00* Test Item Value Reference Range Interpretation Comments Hematocrit (test code = 4544-3) 27.3 38.2-49.6 L [facility] HospitalMean Corpuscular Bwqooq9784-54-84 07:48:00* Test Item Value Reference Range Interpretation Comments Mean Corpuscular Volume (test code = 787-2) 98.2 81-99 [facility] HospitalMean Corpuscular Uellbosxwe5731-47-06 07:48:00* Test Item Value Reference Range Interpretation Comments Mean Corpuscular Hemoglobin (test code = 785-6) 33.5 28-32 H [facility] HospitalMean Corpuscular Hemoglobin Concent 2017-06-19 07:48:00* Test Item Value Reference Range Interpretation Comments Mean Corpuscular Hemoglobin Concent (test code = 786-4) 34.1 31-35 [facility] HospitalRed Cell Distribution Cgrki3029-02-75 07:48:00* Test Item Value Reference Range Interpretation Comments Red Cell Distribution Width (test code = 75627-5) 15.1 11.7 -14.4 H [facility] HospitalPlatelet Ycgyf0865-17-21 07:48:00* Test Item Value Reference Range Interpretation Comments Platelet Count (test code = 777-3) 46 140-360 LL Results called to SOILA JACK RN at 0748 on 06/19/17 by Michael Whalen. RB [place].[facility] HospitalNeutrophils (%) (Auto)2017-06-19 07:48:00* Test Item Value Reference Range Interpretation Comments Neutrophils (%) (Auto) (test code = 82008-1) 48.0 38.7-80.0 [facility] HospitalLymphocytes (%) (Auto)2017-06-19 07:48:00 * Test Item Value Reference Range Interpretation Comments Lymphocytes (%) (Auto) (test code = 736-9) 27.0 18.0-39.1 [facility] HospitalMonocytes (%) (Auto)2017-06-19 07:48:00* Test Item Value Reference Range Interpretation Comments Monocytes (%) (Auto) (test code = 5905-5) 16.3 4.4-11.3 H [facility] HospitalEosinophils (%) (Auto)2017-06-19 07:48:00 * Test Item Value Reference Range Interpretation Comments Eosinophils (%) (Auto) (test code = 713-8) 7.9 0.0-6.0 H [facility] HospitalBasophils (%) (Auto)2017-06-19 07:48:00* Test Item Value Reference Range Interpretation Comments Basophils (%) (Auto) (test code = 706-2) 0.4 0.0-1.0 [facility] HospitalIM GRANULOCYTES %2017-06-19 07:48:00* Test Item Value Reference Range Interpretation Comments IM GRANULOCYTES % (test code = IM GRANULOCYTES %) 0.4 0.0- 1.0 [facility] HospitalNeutrophils # (Auto)2017-06-19 07:48:00* Test Item Value Reference Range Interpretation Comments Neutrophils # (Auto) (test code = 751-8) 1.2 2.1-6.9 L [facility] HospitalLymphocytes # (Auto)2017-06-19 07:48:00* Test Item Value Reference Range Interpretation Comments Lymphocytes # (Auto) (test code = 50042-5) 0.7 1.0-3.2 L [facility] HospitalMonocytes # (Auto)2017-06-19 07:48:00* Test Item Value Reference Range Interpretation Comments Monocytes # (Auto) (test code = 742-7) 0.4 0.2-0.8 [facility] HospitalEosinophils # (Auto)2017-06-19 07:48:00* Test Item Value Reference Range Interpretation Comments Eosinophils # (Auto) (test code = 711-2) 0.2 0.0-0.4 [facility] HospitalBasophils # (Auto)2017-06-19 07:48:00* Test Item Value Reference Range Interpretation Comments Basophils # (Auto) (test code = 704-7) 0.0 0.0-0.1 [facility] HospitalAbsolute Immature Granulocyte (auto 2017-06-19 07:48:00* Test Item Value Reference Range Interpretation Comments Absolute Immature Granulocyte (auto ([place] t code = Absolute Immature Granulocyte (auto) 0.01 0-0.1 [facility] HospitalDifferential Total Cells Counted 2017-06-16 09:31:00* Test Item Value Reference Range Interpretation Comments Differential Total Cells Counted (test code = Kath tial Total Cells Counted) 100 [facility] HospitalNeutrophils % (Manual)2017-06-16 09:31:00 * Test Item Value Reference Range Interpretation Comments Neutrophils % (Manual) (test code = 62132-0) 73 40-74 [facility] HospitalLymphocytes % (Manual)2017-06-16 09:31:00 * Test Item Value Reference Range Interpretation Comments Lymphocytes % (Manual) (test code = 737-7) 14 19-48 L [facility] HospitalMonocytes % (Manual)2017-06-16 09:31:00* Test Item Value Reference Range Interpretation Comments Monocytes % (Manual) (test code = 744-3) 2 3.4-9.0 L [facility] HospitalEosinophils % (Manual)2017-06-16 09:31:00 * Test Item Value Reference Range Interpretation Comments Eosinophils % (Manual) (test code = 714-6) 8 0-7 H [facility] HospitalBasophils % (Manual)2017-06-16 09:31:00* Test Item Value Reference Range Interpretation Comments Basophils % (Manual) (test code = 32669-1) 1 0-1.5 [facility] HospitalMetamyelocytes %2017-06-16 09:31:00* Test Item Value Reference Range Interpretation Comments Metamyelocytes % (test code = 740-1) 2 0-0 H [facility] HospitalVitamin B12 Fkxyk7503-09-47 07:59:00* Test Item Value Reference Range Interpretation Comments Vitamin B12 Level (test code = 91430-5) 887 213-816 H [facility] HospitalFolate2018-04-06 07:59:00* Test Item Value Reference Range Interpretation Comments Folate (test code = 2284-8) 10.3 7.0-15.4 [facility] HospitalFerritin2018-04-06 07:39:00* Test Item Value Reference Range Interpretation Comments Ferritin (test code = 2276-4) 220.60 21.81-274.66 [facility] HospitalIron Qmxxj3921-27-86 07:25:00* Test Item Value Reference Range Interpretation Comments Iron Level (test code = 2498-4) 102 65-175 [facility] HospitalTotal Iron Binding Ndoyurhn0090-42-33 07:25:00* Test Item Value Reference Range Interpretation Comments Total Iron Binding Capacity (test code = 2500-7) 274 261-4 78 [facility] HospitalPercent Iron Ezbjqqkosq4664-20-33 07:25:00* Test Item Value Reference Range Interpretation Comments Percent Iron Saturation (test code = 2502-3) 37 15-50 [facility] HospitalTransferrin2018-04-06 07:25:00* Test Item Value Reference Range Interpretation Comments Transferrin (test code = 3034-6) 196 174-364 [facility] HospitalDirect Akkznoooq1376-30-77 07:22:00* Test Item Value Reference Range Interpretation Comments Direct Bilirubin (test code = 88778-3) 2.0 0.0-0.5 H [facility] HospitalAmylase Kejxx4767-90-05 07:22:00* Test Item Value Reference Range Interpretation Comments Amylase Level (test code = 1798-8) 65 25-125 [facility] HospitalLipase2018-04-06 07:22:00* Test Item Value Reference Range Interpretation Comments Lipase (test code = 3040-3) 16 8-78 [facility] HospitalPercent Reticulocyte Lzsbd9944-18-10 07:04:00* Test Item Value Reference Range Interpretation Comments Percent Reticulocyte Count (test code = 63395-0) 2.6 0.8-2 .2 H [facility] HospitalAmmonia2018-04-05 21:00:00* Test Item Value Reference Range Interpretation Comments Ammonia (test code = 38985-9) 58 31-123 [facility] HospitalBody Fluid Rdlzoyntlua0090-03-35 18:25:00 * Test Item Value Reference Range Interpretation Comments Body Fluid Neutrophils (test code = 84633-1) 11 MESOTHELIAL CELLS SEEN, RESULTED "OTHER"[facility] HospitalBody Fluid Znnplxczymj7168-38-38 18:25:00* Test Item Value Reference Range Interpretation Comments Body Fluid Lymphocytes (test code = 67954928) 15 [facility] HospitalBody Fluid Wnxpiztch6338-96-32 18:25:00* Test Item Value Reference Range Interpretation Comments Body Fluid Monocytes (test code = 83312-3) 64 [facility] HospitalBody Fluid Other Snjxo5488-75-02 18:25:00 * Test Item Value Reference Range Interpretation Comments Body Fluid Other Cells (test code = 002916992) 10 [facility] HospitalBody Fluid Total Cells Qtrptua5151-04-44 18:25:00* Test Item Value Reference Range Interpretation Comments Body Fluid Total Cells Counted (test code = 53422-7) 100 [facility] HospitalBody Fluid Jsajjca9678-81-54 18:25:00* Test Item Value Reference Range Interpretation Comments Body Fluid Comment (test code = Body Fluid Comment) SEE COMMENT [facility] Centertool Occult Dzgtf1413-49-69 18:21:00* Test Item Value Reference Range Interpretation Comments Stool Occult Blood (test code = 2335-8) POSITIVE NEGATIVE H [facility] HospitalBody Fluid Otgz9276-86-84 17:33:00* Test Item Value Reference Range Interpretation Comments Body Fluid Type (test code = 91055-2) PERITONEAL RIGHT ABD FLUIDTexas Orthopedic HospitalBody Fluid Fjqcg3350-83-32 17:33:00* Test Item Value Reference Range Interpretation Comments Body Fluid Color (test code = 6824-7) YELLOW [facility] HospitalBody Fluid Pafrxlgxpb4233-75-51 17:33:00 * Test Item Value Reference Range Interpretation Comments Body Fluid Appearance (test code = 9335-1) CLOUDY [facility] HospitalBody Fluid TZT3723-82-97 17:33:00* Test Item Value Reference Range Interpretation Comments Body Fluid WBC (test code = 6743-9) 163 [facility] HospitalBody Fluid OMS4573-88-54 17:33:00* Test Item Value Reference Range Interpretation Comments Body Fluid RBC (test code = 6741-3) 1519 [facility] HospitalUrine JIE1337-47-65 16:17:00* Test Item Value Reference Range Interpretation Comments Urine WBC (test code = 5821-4) NONE 0-5 [facility] HospitalUrine GFD3627-82-58 16:17:00* Test Item Value Reference Range Interpretation Comments Urine RBC (test code = 89799-6) 11-20 0-5 H [facility] HospitalUrine Imrgxjpi6916-38-38 16:17:00* Test Item Value Reference Range Interpretation Comments Urine Bacteria (test code = 18082-8) NONE NONE [facility] HospitalUrine Epithelial Bcoee8976-22-27 16:17:00 * Test Item Value Reference Range Interpretation Comments Urine Epithelial Cells (test code = 77907-4) NONE NONE [facility] HospitalUrine Ylzml2049-03-98 15:54:00* Test Item Value Reference Range Interpretation Comments Urine Color (test code = 5778-6) ORANGE YELLOW H [facility] HospitalUrine Pxwsano5396-03-66 15:54:00* Test Item Value Reference Range Interpretation Comments Urine Clarity (test code = 89746-0) CLOUDY CLEAR H [facility] HospitalUrine Specific Pmiiopj5539-20-68 15:54:00 * Test Item Value Reference Range Interpretation Comments Urine Specific [place] (test code = 5811-5) 1.010 1.010-1.02 5 [facility] HospitalUrine uC2141-68-28 15:54:00* Test Item Value Reference Range Interpretation Comments Urine pH (test code = 32872-9) 7 5-7 [facility] HospitalUrine Leukocyte Jnfgwksg6003-36-80 15:54:00* Test Item Value Reference Range Interpretation Comments Urine Leukocyte Esterase (test code = 5799-2) NEGATIVE NEGATIVE [facility] HospitalUrine Qxkpynt4769-79-24 15:54:00* Test Item Value Reference Range Interpretation Comments Urine Nitrite (test code = 16383-4) NEGATIVE NEGATIVE [facility] HospitalUrine Juiufwi3112-09-12 15:54:00* Test Item Value Reference Range Interpretation Comments Urine Protein (test code = 5804-0) 1+ NEGATIVE H [facility] Glucose (UA)2017-06-15 15:54:00* Test Item Value Reference Range Interpretation Comments Urine Glucose (UA) (test code = 2349-9) NEGATIVE NEGATIVE [facility] HospitalUrine Ovuxowj3953-18-68 15:54:00* Test Item Value Reference Range Interpretation Comments Urine Ketones (test code = 54997-3) TRACE NEGATIVE H [facility] Sgcpjywdhsnu8495-25-82 15:54:00* Test Item Value Reference Range Interpretation Comments Urine Urobilinogen (test code = 01666-3) 8 0.2-1 [facility] [id number] 15:54:00* Test Item Value Reference Range Interpretation Comments Urine Bilirubin (test code = 1978-6) 2+ NEGATIVE H Confirmatory test currently unavailable. False positive results may occur.[id number] 15:54:00* Test Item Value Reference Range Interpretation Comments Urine Blood (test code = 25400-5) 2+ NEGATIVE H [facility] [address] [place] [id number] Patient Name: JOCELIN CORREA MR #: [id number] : 1970 Age/Sex: 47/M Req #: [id number] Adm Physician: ROME HOPPER MD Ordered by: AMARA GUTHRIE MD Report #: [id number] Location: MED/SURG Room/Bed: [facility] Procedure: [id number] US/US LIVER Exam Date: 06/20/17 Exam Time: [...] 11:33 AM Dictated By: DIANA VELARDE MD 32 Transcribed By: ZAHEER on 06/20/171132 COPY TO: AMARA GUTHRIE MD CT ABDOMEN/PELVIS [place] [address] Patient Name: JOCELIN CORREA MR #: [id number] : 1970 Age/Sex: 47/M Req #: [id number] Adm Physician: Ordered by: EZ MANDUJANO MD Report #: [id number] Location: ER Room/Bed: Procedure: [id number] CT/CT ABDOMEN/PELVIS W Exam Date: Exam Time: REPORT STATUS: Signed NC OCEDURE: CT ABDOMEN AND PELVIS WITH CONTRAST [...] 2. Large volume ascites. Given fever, con welder plasma arc correlation for SBP. 3. Splenomegaly likely related to portal hypertens ion. Dictated by: Deandre Gan M.D. on 06/15/2017 at 14:50 Electronically approved by: Deandre Gan M.D. on 06/15/2017 at 14:50 Dictated By: DEANDRE GAN MD 49 Transcribed By: MARCO on 06/15/171449 COPY TO: EZ MANDUJANO MD US GUIDED PARACENTESIS [place] [address] Patient Name: JOCELIN CORREA MR #: [id number] : 1970 Age/Sex: 47/M Req #: [id number] Adm Physician: ROME HOPPER MD Ordered by: JESUS MARKS EDGE MOLDER Report #: [id number] Location: [facility] Room/Bed: [place] [address] Procedure: [id number] US /US GUIDED PARACENTESIS Exam Date: 06/15/17 [...] at 17:10 Dictated By: DEANDRE GAN MD 171 Transcribed By: MARCO on 06/15/171709 COPY TO: JESUS MARKS NP
[2020-01-20] MEDS ORDERED: TRAMADOL HCL 50 MG TAB PO PRN (13:15)
[2020-01-20] MEDS ORDERED: TIZANIDINE HCL 4 MG TAB PO PRN (13:15)
[2020-01-20] MEDS ORDERED: MORPHINE SULFATE INJ 4 MG/ML INJ 1ML IV ONE (13:15)
[2020-01-20] MEDS ORDERED: CHLORASEPTIC SPRAY 177 ML BTL MM PRN (13:15)
--- NOTE | 2020-01-20 13:18 | NUR ---
H&P cc: sorethroate and sweats with N/V HPI: 49yoM, PCP , developed sorethroat, SOB, N/V and chills/sweats after girlfried had similar symptoms with positive strep testing; PAST MEDICAL HISTORY: HCV, Cirrhosis, Hypotension on midodrine, Alcoholism, portal vein thrombosis, SBO s/p surgery pshx; SBO related Allergies; see emr Fh/SH; single; Hx large 5-6 drinks per day; Meds; see MAR ROS: no cp/skin rash/confusion/dizziness/MCNEIL/vison changes/loss of taste/leg apin v/s; revd PE tired appearing; COUGH WITH INSPIRATION anicteric ns1s2 mod bs soft nt nd no e/t skin dry flat affect a&ox3; black labs/meds revd Sorethroat- chloraseptic spray Acute URI- azithromycin/antitussives/loratadine/antitussives Hypokalemia- replace Thrombocytopenia due to cirrhosis Cirrhosis- suppoive Portal HTN- Hypotension- midodrine Protal vein thrombosis- cont AC Prop: pepcid dispo; f/u COVID testing DANIEL CARDOZO MD., PHD.
[2020-01-20] MEDS: GUAIFENESIN/DEXTROMETHORPHAN LIQD 5 ML UDC NG SCH ×3 (13:43→20:40)
[2020-01-20] MEDS: LORATADINE 10 MG TAB PO SCH (13:43)
[2020-01-20] MEDS: AZITHROMYCIN 250MG/NS 100 ML 100 ML IV SCH (14:18)
[2020-01-20 15:52] LABS: CREATINE KINASE MB 1.7 ng/mL (0-5.0)
[2020-01-20] MEDS: MIDODRINE HCL 5 MG TABLET PO SCH (16:12)
[2020-01-20] MEDS: PANTOPRAZOLE SOD 40 MG TABEC PO SCH (16:12)
[2020-01-20] MEDS: BENZONATATE 100 MG CAP PO SCH ×2 (16:12→20:40)
[2020-01-20 16:34] VITALS: BP 125/77
--- NOTE | 2020-01-20 16:34 | NUR ---
PT ARRIVED TO ROOM 105; PT AWAKE, ALERT, NO S/S DISTRESS, REQUESTING JUICE AND SNACKS. IN STABLE CONDITION. WILL CONTINUE TO MONITOR.
[2020-01-20 16:38] VITALS: BP 125/77
--- NOTE | 2020-01-20 19:00 | NUR ---
BEDSIDE SHIFT REPORT GIVEN TO ONCOMING NURSE. PT IN STABLE CONDITION.
[2020-01-20] MEDS: FUROSEMIDE 20 MG TAB PO SCH (19:46)
[2020-01-20] MEDS: POTASSIUM CHLORIDE 10MEQ EA PO SCH (19:46)
[2020-01-20] MEDS: APIXAB 2.5 MG TABLET PO SCH (19:46)
[2020-01-20 20:07] VITALS: BP 127/84
[2020-01-20] MEDS: MORPHINE SULFATE INJ 4 MG/ML INJ 1ML IV PRN (20:30)
[2020-01-20 21:00] VITALS: BP 127/84
[2020-01-20 21:59] LABS: BILIRUBIN,URINE MODERATE (NEGATIVE); CLARITY,URINE SL CLOUDY (CLEAR); COLOR,URINE AMBER (YELLOW); KETONES,URINE TRACE (NEGATIVE); LEUKOCYTE ESTERASE ,URINE NEGATIVE (NEGATIVE); NITRITE,URINE NEGATIVE (NEGATIVE); PROTEIN,URINE DIPSTICK 1+ (NEGATIVE); URINE UROBILINOGEN 2 mg/dL (0.2 - 1)
[2020-01-20 22:11] LABS: BACTERIA,URINE FEW /HPF; EPITHELIAL CELLS,URINE MODERATE /LPF; WBC,URINE (MAN) 0-5 /HPF (0-5)
[2020-01-20 23:40] LABS: CREATINE KINASE MB 2.1 ng/mL (0-5.0)
[2020-01-20 23:57] VITALS: BP 132/87
[2020-01-21] MEDS: MORPHINE SULFATE INJ 4 MG/ML INJ 1ML IV PRN (03:00)
[2020-01-21 04:00] VITALS: BP 140/92
[2020-01-21] MEDS: GUAIFENESIN/DEXTROMETHORPHAN LIQD 5 ML UDC NG SCH ×3 (05:10→19:20)
[2020-01-21 05:46] LABS: HEMATOCRIT 33.5 % (38.2-49.6); HEMOGLOBIN 10.7 g/dL (14.0-18.0); LYMPHOCYTES # (AUTO) 0.2 (1.0-3.2); LYMPHOCYTES % 4.9 % (18.0-39.1); MEAN CORPUSCULAR HEMOGLOBIN 30.1 pg (28-32); MEAN CORPUSCULAR HGB CONC 31.9 g/dL (31-35); MEAN CORPUSCULAR VOLUME 94.4 fL (81-99); MONOCYTES # (AUTO) 0.2 (0.2-0.8); MONOCYTES % 4.3 % (4.4-11.3); NEUTROPHILS # (AUTO) 4.4 (2.1-6.9); NEUTROPHILS % 90.6 % (38.7-80.0); RED BLOOD COUNT 3.55 x10e6/uL (4.3-5.7)
[2020-01-21 05:53] LABS: PLATELET COUNT 39 x10e3/uL (140-360)
[2020-01-21 05:57] LABS: ALBUMIN 2.8 g/dL (3.5-5.0); ALBUMIN/GLOBULIN RATIO 0.5 (0.8-2.0); ANION GAP 13.2 mmol/L (8-16); CALCIUM 8.3 mg/dL (8.4-10.2); CREATININE, SERUM 1.38 mg/dL (0.72-1.25); POTASSIUM 4.2 mmol/L (3.5-5.1)
[2020-01-21 06:17] LABS: CREATINE KINASE MB 2.6 ng/mL (0-5.0)
--- NOTE | 2020-01-21 06:38 | NUR ---
D/C summary Principal Dx: Sorethroat- chloraseptic spray Acute URI- azithromycin/antitussives/loratadine/antitussives Hypokalemia- replace Hyperammonemia Secondary Dx: Thrombocytopenia due to cirrhosis Cirrhosis- suppoive Portal HTN- Hypotension- midodrine Protal vein thrombosis- cont AC Prop: pepcid dispo; f/u COVID testing 11-10 Hyperammonemia- start lactulose and xifaxan; d/c planning; d/c home stable f/u pcp 2 days d/c>35mins DANIEL CARDOZO MD., PHD.
[2020-01-21] MEDS ORDERED: XIFAXAN550 MG PO (06:43)
[2020-01-21] MEDS ORDERED: Chloraseptic MM (06:43)
[2020-01-21] MEDS ORDERED: LACTULOSE20 GM/30 M PO (06:43)
[2020-01-21] MEDS ORDERED: TESSALON PERLE100 MG PO (06:43)
[2020-01-21] MEDS ORDERED: LORATADINE10 MG PO (06:43)
[2020-01-21] MEDS ORDERED: ZITHROMAX250 MG PO (06:43)
[2020-01-21] MEDS: MIDODRINE HCL 5 MG TABLET PO SCH ×3 (07:52→15:24)
[2020-01-21] MEDS: LACTULOSE SYRUP 20 GM/30 ML UDC PO PRN ×2 (07:52→19:21)
[2020-01-21] MEDS: PANTOPRAZOLE SOD 40 MG TABEC PO SCH ×2 (07:52→17:18)
[2020-01-21 08:23] VITALS: BP 116/92
[2020-01-21] MEDS: BENZONATATE 100 MG CAP PO SCH ×3 (08:32→19:20)
[2020-01-21] MEDS: FUROSEMIDE 20 MG TAB PO SCH ×2 (08:32→17:18)
[2020-01-21] MEDS: LORATADINE 10 MG TAB PO SCH (08:32)
[2020-01-21] MEDS: RIFAXIMIN 550 MG TABLET PO SCH ×2 (08:32→17:18)
[2020-01-21] MEDS: APIXAB 2.5 MG TABLET PO SCH ×2 (08:32→17:18)
[2020-01-21] MEDS: POTASSIUM CHLORIDE 10MEQ EA PO SCH ×2 (08:33→17:18)
[2020-01-21 09:00] VITALS: BP 107/74
[2020-01-21] MEDS ORDERED: ASCORBIC ACID 500 MG TAB PO SCH (09:00)
[2020-01-21] MEDS ORDERED: FERROUS SULFATE 325 MG TAB PO SCH (09:00)
[2020-01-21] MEDS ORDERED: DOCUSATE SODIUM 100 MG CAP PO SCH (09:00)
[2020-01-21 12:05] VITALS: BP 135/94
--- NOTE | 2020-01-21 12:54 | NUR ---
WOUND CARE [id number] YO MALE HX OF thrombocytopenia JOHN 23 0N CONSERVATIVE PUP STATUS AND INTERVENTIONS VISCO SURFACE LABS: WBC- 4.90 HGB- 10.7 GLUCOSE-125 HEAD TO TOE SKIN ASSESSMENT COMPLETE PATIENT PRESENTS WITH UPPER AND LOWER GENERALIZED RASH AND EXCORIATION R/T ITCHY JAUNDICE SKIN R/T LIVER FAILURE RECOMMENDATIONS: NURSING TO CONTINUE TO MONITOR PATIENT AND KEEP SKIN CLEAN AND FREE FROM LOOSE STOOL OR IRRITATING MOISTURE AND CONTINUE TO FOLLOW CONSERVATIVE PUP STATUS INTERVENTIONS NURSING TO CONTINUE TO GET PATIENT OUT OF BED FOR MEALS AND MUCH TOLERATED NURSING TO CLEAN ULCERATION WITH NORMAL SALINE DAILY AND APPLY MUPIROCIN OINTMENT TO UPPER AND LOWER GENERALIZED RASH AND EXCORIATION Addendum: 01/21/20 at 1259 by Jonathan Marx RN Amended: Links added.
[2020-01-21] MEDS: AZITHROMYCIN 250MG/NS 100 ML 100 ML IV SCH (15:24)
[2020-01-21 15:44] VITALS: BP 107/74
[2020-01-22] MEDS ORDERED: MUPIROCIN 2% OINT 22 GM TUBE TOP SCH (09:00)
== END 2020-01-21 20:18 | disposition home or self-care (01) ==
LOC: ER 08:30 → ERHOLD 09:07 → MED/SURG 16:41
PROVIDERS: ADMIT Internal Medicine; ATTEND Internal Medicine
DX: J02.9 Acute pharyngitis, unspecified (principal); E87.6 Hypokalemia; E83.41 Hypermagnesemia; K76.6 Portal hypertension; D69.59 Other secondary thrombocytopenia; I81 Portal vein thrombosis; I95.9 Hypotension, unspecified; Z11.59 Encounter for screening for other viral diseases; E72.20 Disorder of urea cycle metabolism, unspecified
CPT/HCPCS: 36415 ×2; 71045; 74177; 80053 ×2; 80061; 81001; 82140; 82550 ×2; 82553 ×2; 83036; 83518; 84484 ×2; 85025 ×2; 86850; 86900; 87070; 99251; 99284; G0378 ×2; J1100; J2270 ×2; J2405; J7030; Q9967; S0164 ×2; U0002

== ENCOUNTER 2020-03-06 10:05 | Emergency (ER) | payer MEDICARE ==
[~2020-03-06] VITALS: Ht 327.7 cm; Wt 99.8 kg
[~2020-03-06 10:05] MED LIST changes: +Chloraseptic MM; +LORATADINE10 MG PO; +TESSALON PERLE100 MG PO; +XIFAXAN550 MG PO; +ZITHROMAX250 MG PO
[2020-03-06 10:30] LABS: EOSINOPHILS # (AUTO) 0.1 (0.0-0.4); EOSINOPHILS % 4.6 % (0.0-6.0); HEMATOCRIT 30.4 % (38.2-49.6); HEMOGLOBIN 9.8 g/dL (14.0-18.0); LYMPHOCYTES # (AUTO) 0.8 (1.0-3.2); LYMPHOCYTES % 25.2 % (18.0-39.1); MEAN CORPUSCULAR HEMOGLOBIN 27.6 pg (28-32); MEAN CORPUSCULAR HGB CONC 32.2 g/dL (31-35); MEAN CORPUSCULAR VOLUME 85.6 fL (81-99); MONOCYTES # (AUTO) 0.3 (0.2-0.8); MONOCYTES % 10.3 % (4.4-11.3); NEUTROPHILS # (AUTO) 1.8 (2.1-6.9); NEUTROPHILS % 58.6 % (38.7-80.0); RED BLOOD COUNT 3.55 x10e6/uL (4.3-5.7); RED CELL DISTRIBUTION WIDTH 16.3 % (11.7-14.4)
[2020-03-06 10:37] LABS: PLATELET COUNT 27 x10e3/uL (140-360)
[2020-03-06 10:39] LABS: INR 1.19; PROTHROMBIN TIME 15.7 seconds (11.9-14.5)
[2020-03-06 10:40] LABS: PARTIAL THROMBOPLASTIN TIME 41.7 seconds (23.8-35.5)
[2020-03-06 10:51] LABS: ALANINE AMINOTRANSFERASE 17 IU/L (0-55); ALBUMIN 2.9 g/dL (3.5-5.0); ALBUMIN/GLOBULIN RATIO 0.6 (0.8-2.0); ALKALINE PHOSPHATASE 70 IU/L (40-150); AMYLASE 121 U/L (25-125); ANION GAP 14.9 mmol/L (8-16); BLOOD UREA NITROGEN 7 mg/dL (7-26); BUN/CREATININE RATIO 9 (6-25); CARBON DIOXIDE 23 mmol/L (22-29); CHLORIDE 103 mmol/L (98-107); CREATINE KINASE 211 IU/L (30-200); EST GLOMERULAR FILTRATION RATE > 60 ML/MIN (60-); GLUCOSE 95 mg/dL (74-118); LIPASE 29 U/L (8-78); SODIUM 138 mmol/L (136-145)
[2020-03-06 10:52] LABS: POTASSIUM 2.9 mmol/L (3.5-5.1)
[2020-03-06 10:53] LABS: MAGNESIUM 1.1 MG/DL (1.3-2.1)
== END 2020-03-06 12:09 | disposition home or self-care (01) ==
LOC: ER 10:14
DX: R10.11 Right upper quadrant pain (principal); K70.31 Alcoholic cirrhosis of liver with ascites; D69.6 Thrombocytopenia, unspecified; E83.42 Hypomagnesemia; D61.818 Other pancytopenia; E87.6 Hypokalemia; I10 Essential (primary) hypertension; R94.31 Abnormal electrocardiogram [ECG] [EKG]; F17.210 Nicotine dependence, cigarettes, uncomplicated
CPT/HCPCS: 36415; 80053; 80320; 80329; 82150; 82550; 82553; 83690; 83735; 84484; 85025; 85610; 85730; 93005; 99284; U0002

== ENCOUNTER 2020-03-08 23:00 | Emergency (ER) | payer MEDICARE ==
[~2020-03-08] VITALS: Ht 327.7 cm; Wt 99.8 kg
[2020-03-08] MEDS ORDERED: PANTOPRAZOLE 40 MG 10ML VIAL IV STA (23:06)
[2020-03-08] MEDS ORDERED: SODIUM CHLORIDE 0.9% 1000ML 1,000 ML IV ONE (23:15)
[2020-03-08] MEDS ORDERED: DICYCLOMINE HCL 20 MG/2 ML VIAL IM ONE (23:15)
[2020-03-09 00:15] LABS: BASOPHILS % 1.2 % (0.0-1.0); EOSINOPHILS # (AUTO) 0.2 (0.0-0.4); EOSINOPHILS % 4.7 % (0.0-6.0); HEMATOCRIT 32.9 % (38.2-49.6); HEMOGLOBIN 10.9 g/dL (14.0-18.0); LYMPHOCYTES % 29.4 % (18.0-39.1); MEAN CORPUSCULAR HGB CONC 33.1 g/dL (31-35); MEAN CORPUSCULAR VOLUME 84.6 fL (81-99); MONOCYTES # (AUTO) 0.5 (0.2-0.8); MONOCYTES % 13.1 % (4.4-11.3); NEUTROPHILS # (AUTO) 1.8 (2.1-6.9); NEUTROPHILS % 51.3 % (38.7-80.0); RED BLOOD COUNT 3.89 x10e6/uL (4.3-5.7); RED CELL DISTRIBUTION WIDTH 16.4 % (11.7-14.4)
[2020-03-09 00:25] LABS: INR 1.15; PROTHROMBIN TIME 15.3 seconds (11.9-14.5)
[2020-03-09 00:26] LABS: PARTIAL THROMBOPLASTIN TIME 41.3 seconds (23.8-35.5)
[2020-03-09 00:32] LABS: PLATELET COUNT 27 x10e3/uL (140-360)
[2020-03-09 00:33] LABS: AMYLASE 92 U/L (25-125); LIPASE 47 U/L (8-78)
[2020-03-09 00:34] LABS: ALANINE AMINOTRANSFERASE 24 IU/L (0-55); ALBUMIN 3.2 g/dL (3.5-5.0); ALBUMIN/GLOBULIN RATIO 0.5 (0.8-2.0); ALKALINE PHOSPHATASE 81 IU/L (40-150); ANION GAP 18.1 mmol/L (8-16); BLOOD UREA NITROGEN 17 mg/dL (7-26); BUN/CREATININE RATIO 18 (6-25); CALCIUM 7.9 mg/dL (8.4-10.2); CARBON DIOXIDE 26 mmol/L (22-29); CHLORIDE 93 mmol/L (98-107); CREATININE, SERUM 0.97 mg/dL (0.72-1.25); EST GLOMERULAR FILTRATION RATE > 60 ML/MIN (60-); GLUCOSE 91 mg/dL (74-118); POTASSIUM 3.1 mmol/L (3.5-5.1); SODIUM 134 mmol/L (136-145)
[2020-03-09 00:46] LABS: CREATINE KINASE MB 1.8 ng/mL (0-5.0)
[2020-03-09 00:55] LABS: AMPHETAMINES SCREEN,URINE POSITIVE (NEGATIVE); BENZODIAZEPINES SCREEN,URINE NEGATIVE (NEGATIVE); PHENCYCLIDINE SCREEN,URINE NEGATIVE (NEGATIVE)
[2020-03-09 01:04] LABS: CLARITY,URINE CLOUDY (CLEAR); COLOR,URINE AMBER (YELLOW); KETONES,URINE 1+ (NEGATIVE); LEUKOCYTE ESTERASE ,URINE NEGATIVE (NEGATIVE); NITRITE,URINE NEGATIVE (NEGATIVE); PROTEIN,URINE DIPSTICK 2+ (NEGATIVE)
[2020-03-09] MEDS ORDERED: FOLIC ACID 5 MG/ML VIAL IV ONE (01:15)
[2020-03-09] MEDS ORDERED: THIAMINE HCL INJ 100 MG/ML 2ML VIAL IV ONE (01:15)
[2020-03-09 01:37] LABS: BACTERIA,URINE MANY /HPF; EPITHELIAL CELLS,URINE FEW /LPF; RBC,URINE >50 /HPF (0-5); TRANSITIONAL EPI CELLS,URINE FEW
== END 2020-03-09 02:05 | disposition left against medical advice (07) ==
LOC: ER 23:19
DX: K70.31 Alcoholic cirrhosis of liver with ascites (principal); K29.70 Gastritis, unspecified, without bleeding; D69.6 Thrombocytopenia, unspecified; F10.20 Alcohol dependence, uncomplicated
CPT/HCPCS: 36415; 74177; 80053; 80307; 80320; 81001; 82140; 82150; 82550; 82553; 83605; 83690; 84484; 85025; 85610; 85730; 87040; 93005; 99284; C9113; J0500; J3411; J7030

== ENCOUNTER 2020-10-29 12:19 | Inpatient (IN) | payer MEDICARE ==
[~2020-10-29] VITALS: Ht 175.3 cm; Wt 97.1 kg
[2020-10-29] MEDS: Pantoprazole IV 40 MG in SODIUM CHLORIDE 0.9% 50ML 50 ML IV SCH ×2 (06:00→13:57)
[2020-10-29 12:48] LABS: BASOPHILS % 0.5 % (0.0-1.0); EOSINOPHILS # (AUTO) 0.2 (0.0-0.4); EOSINOPHILS % 5.5 % (0.0-6.0); LYMPHOCYTES # (AUTO) 0.8 (1.0-3.2); MEAN CORPUSCULAR HEMOGLOBIN 23.6 pg (28-32); MEAN CORPUSCULAR HGB CONC 28.8 g/dL (31-35); MEAN CORPUSCULAR VOLUME 81.9 fL (81-99); MONOCYTES # (AUTO) 0.8 (0.2-0.8); MONOCYTES % 20.3 % (4.4-11.3); NEUTROPHILS # (AUTO) 2.1 (2.1-6.9); NEUTROPHILS % 51.7 % (38.7-80.0); PLATELET COUNT 58 x10e3/uL (140-360); RED BLOOD COUNT 1.44 x10e6/uL (4.3-5.7); RED CELL DISTRIBUTION WIDTH 22.5 % (11.7-14.4)
[2020-10-29 12:53] LABS: HEMATOCRIT 11.8 % (38.2-49.6); HEMOGLOBIN 3.4 g/dL (14.0-18.0)
[2020-10-29 12:56] LABS: INR 1.83; PROTHROMBIN TIME 21.5 seconds (11.9-14.5)
[2020-10-29 12:57] LABS: PARTIAL THROMBOPLASTIN TIME 44.5 seconds (23.8-35.5)
[2020-10-29 13:08] LABS: ALANINE AMINOTRANSFERASE 11 IU/L (0-55); ALBUMIN 1.6 g/dL (3.5-5.0); ALBUMIN/GLOBULIN RATIO 0.4 (0.8-2.0); ALKALINE PHOSPHATASE 61 IU/L (40-150); ANION GAP 18.1 mmol/L (8-16); BLOOD UREA NITROGEN 26 mg/dL (7-26); BUN/CREATININE RATIO 12 (6-25); CALCIUM 7.1 mg/dL (8.4-10.2); CARBON DIOXIDE 16 mmol/L (22-29); CHLORIDE 100 mmol/L (98-107); CREATINE KINASE 92 IU/L (30-200); CREATININE, SERUM 2.19 mg/dL (0.72-1.25); EST GLOMERULAR FILTRATION RATE 32 ML/MIN (60-); GLUCOSE 103 mg/dL (74-118); POTASSIUM 3.1 mmol/L (3.5-5.1); SODIUM 131 mmol/L (136-145)
[2020-10-29] MEDS ORDERED: SODIUM CHLORIDE 0.9% 250ML 250 ML IV ONE (13:30)
[2020-10-29] MEDS ORDERED: CEFTRIAXONE 1 GM VIAL IV ONE (13:30)
[2020-10-29] MEDS ORDERED: CEFTRIAXONE 1 GM in SODIUM CHLORIDE 0.9% 50ML 50 ML IV ONE (13:45)
[2020-10-29] MEDS ORDERED: SODIUM CHLORIDE 0.9% 50ML 50 ML ONE (13:56)
[2020-10-29] MEDS: OCTREOTIDE ACETATE 500 MCG in SODIUM CHLORIDE 0.9% 250ML 249 ML IV SCH (13:57)
[2020-10-29 16:31] LABS: CLARITY,URINE SL CLOUDY (CLEAR); COLOR,URINE BROWN (YELLOW); KETONES,URINE TRACE (NEGATIVE); LEUKOCYTE ESTERASE ,URINE NEGATIVE (NEGATIVE); NITRITE,URINE NEGATIVE (NEGATIVE); PROTEIN,URINE DIPSTICK TRACE (NEGATIVE); URINE UROBILINOGEN >=8 mg/dL (0.2 - 1)
[2020-10-29 16:43] LABS: AMORPHOUS SEDIMENT,URINE MANY (FEW); BACTERIA,URINE MODERATE /HPF
[2020-10-29] MEDS ORDERED: SODIUM CHLORIDE 0.9% 250ML 250 ML ONE (23:36)
[2020-10-30] MEDS ORDERED: ONDANSETRON HCL INJ 2MG/ML 2ML 2 MG/ML VIAL IV PRN (00:15)
[2020-10-30] MEDS ORDERED: MULTIVITAMINS- 12 INJECTION 10 ML, FOLIC ACID MDV 1 MG, THIAMINE HCL INJ 100 MG in SODI... IV ONE (00:15)
[2020-10-30 00:47] LABS: FERRITIN 12.66 ng/mL (21.81-274.66)
[2020-10-30] MEDS ORDERED: CEFTRIAXONE 1 GM VIAL IM STA (01:45)
[2020-10-30] MEDS: OCTREOTIDE ACETATE 500 MCG in SODIUM CHLORIDE 0.9% 250ML 249 ML IV SCH ×2 (02:35→10:00)
[2020-10-30] MEDS ORDERED: SODIUM CHLORIDE 0.9% 250ML 0 ML ONE (05:01)
[2020-10-30 06:48] LABS: EOSINOPHILS # (AUTO) 0.1 (0.0-0.4); LYMPHOCYTES # (AUTO) 0.4 (1.0-3.2); LYMPHOCYTES % 12.2 % (18.0-39.1); MEAN CORPUSCULAR HEMOGLOBIN 26.4 pg (28-32); MEAN CORPUSCULAR HGB CONC 31.9 g/dL (31-35); MEAN CORPUSCULAR VOLUME 82.7 fL (81-99); MONOCYTES # (AUTO) 0.6 (0.2-0.8); MONOCYTES % 18.4 % (4.4-11.3); NEUTROPHILS % 64.1 % (38.7-80.0); RED BLOOD COUNT 2.54 x10e6/uL (4.3-5.7); RED CELL DISTRIBUTION WIDTH 17.2 % (11.7-14.4)
[2020-10-30 06:56] LABS: HEMOGLOBIN 6.7 g/dL (14.0-18.0); PLATELET COUNT 40 x10e3/uL (140-360)
[2020-10-30] MEDS: Pantoprazole IV 40 MG in SODIUM CHLORIDE 0.9% 50ML 50 ML IV SCH ×5 (07:10→21:37)
[2020-10-30] MEDS ORDERED: SODIUM CHLORIDE 0.9% 250ML 250 ML IV ONE (07:15)
[2020-10-30 07:25] LABS: ALBUMIN 1.8 g/dL (3.5-5.0); ALBUMIN/GLOBULIN RATIO 0.4 (0.8-2.0); ANION GAP 13.6 mmol/L (8-16); CALCIUM 7.4 mg/dL (8.4-10.2); CREATININE, SERUM 1.58 mg/dL (0.72-1.25); POTASSIUM 3.6 mmol/L (3.5-5.1)
[2020-10-30] MEDS: IRON SUCROSE 100 MG in SODIUM CHLORIDE 0.9% 100 ML 100 ML IV SCH (08:33)
[2020-10-30] MEDS: CEFTRIAXONE 1 GM in SODIUM CHLORIDE 0.9% 50ML 50 ML IV SCH ×2 (09:00→21:48)
[2020-10-30 13:55] VITALS: BP 111/73
[2020-10-30] MEDS ORDERED: PHYTONADIONE 10 MG/ML AMP SQ ONE (15:30)
[2020-10-30 15:40] VITALS: BP 120/70
[2020-10-30] MEDS ORDERED: SODIUM CHLORIDE 0.9% 250ML 250 ML ONE (15:59)
[2020-10-30 17:03] VITALS: BP 120/70
[2020-10-30] MEDS ORDERED: VITAMIN C500 MG PO (18:30)
[2020-10-30] MEDS: PROPRANOLOL HCL 10 MG TAB PO SCH (19:57)
[2020-10-30 20:00] VITALS: BP 119/74
[2020-10-30] MEDS ORDERED: SODIUM CHLORIDE 0.9% 100 ML ONE (22:31)
[2020-10-31] VITALS (10 sets, daily range): BP systolic 93–124; BP diastolic 56–69
[2020-10-31] MEDS ORDERED: METOCLOPRAMIDE HCL 10 MG/2ML VIAL IV ONE
[2020-10-31] MEDS: OCTREOTIDE ACETATE 500 MCG in SODIUM CHLORIDE 0.9% 250ML 249 ML IV SCH ×3 (00:05→14:40)
[2020-10-31] MEDS: Pantoprazole IV 40 MG in SODIUM CHLORIDE 0.9% 50ML 50 ML IV SCH ×5 (02:20→20:20)
[2020-10-31] MEDS ORDERED: METOCLOPRAMIDE HCL 10 MG/2ML VIAL IV SCH (06:00)
[2020-10-31] MEDS: CEFTRIAXONE 1 GM in SODIUM CHLORIDE 0.9% 50ML 50 ML IV SCH ×2 (08:07→20:20)
[2020-10-31] MEDS: PROPRANOLOL HCL 10 MG TAB PO SCH ×2 (08:25→16:58)
[2020-10-31] MEDS ORDERED: CHLORDIAZEPOXIDE HCL 25 MG CAP PO PRN (09:00)
[2020-10-31] MEDS: IRON SUCROSE 100 MG in SODIUM CHLORIDE 0.9% 100 ML 100 ML IV SCH ×2 (09:00→09:34)
[2020-10-31] MEDS ORDERED: TRAMADOL HCL 50 MG TAB PO PRN (09:00)
[2020-10-31] MEDS: CYANOCOBALAMIN INJ 1,000 MCG/ML VIAL IM SCH (09:32)
[2020-10-31] MEDS: FOLIC ACID/CYANOCOB/PYRIDOXINE TAB PO SCH (09:32)
[2020-10-31 09:36] LABS: BASOPHILS % 1.1 % (0.0-1.0); EOSINOPHILS # (AUTO) 0.2 (0.0-0.4); EOSINOPHILS % 4.9 % (0.0-6.0); HEMATOCRIT 22.8 % (38.2-49.6); HEMOGLOBIN 7.2 g/dL (14.0-18.0); LYMPHOCYTES # (AUTO) 0.5 (1.0-3.2); LYMPHOCYTES % 12.6 % (18.0-39.1); MEAN CORPUSCULAR HEMOGLOBIN 26.9 pg (28-32); MEAN CORPUSCULAR HGB CONC 31.6 g/dL (31-35); MEAN CORPUSCULAR VOLUME 85.1 fL (81-99); MONOCYTES # (AUTO) 0.7 (0.2-0.8); MONOCYTES % 18.1 % (4.4-11.3); NEUTROPHILS # (AUTO) 2.3 (2.1-6.9); NEUTROPHILS % 62.5 % (38.7-80.0); PLATELET COUNT 53 x10e3/uL (140-360); RED BLOOD COUNT 2.68 x10e6/uL (4.3-5.7); RED CELL DISTRIBUTION WIDTH 17.4 % (11.7-14.4)
[2020-10-31 10:22] LABS: ANION GAP 12.3 mmol/L (8-16); CALCIUM 7.3 mg/dL (8.4-10.2); CREATININE, SERUM 1.24 mg/dL (0.72-1.25); POTASSIUM 3.3 mmol/L (3.5-5.1)
[2020-10-31] MEDS: METOCLOPRAMIDE HCL 10 MG/2ML VIAL IV SCH ×3 (11:03→20:20)
[2020-11-01] VITALS: BP 96/60
[2020-11-01] MEDS: OCTREOTIDE ACETATE 500 MCG in SODIUM CHLORIDE 0.9% 250ML 249 ML IV SCH ×3 (00:26→22:11)
[2020-11-01] MEDS: Pantoprazole IV 40 MG in SODIUM CHLORIDE 0.9% 50ML 50 ML IV SCH ×5 (01:12→23:41)
[2020-11-01] MEDS ORDERED: RIFAXIMIN 550 MG TABLET PO ONE (02:15)
[2020-11-01 04:00] VITALS: BP 112/77
[2020-11-01 05:30] LABS: BASOPHILS % 0.8 % (0.0-1.0); EOSINOPHILS # (AUTO) 0.2 (0.0-0.4); HEMATOCRIT 23.3 % (38.2-49.6); HEMOGLOBIN 7.3 g/dL (14.0-18.0); LYMPHOCYTES # (AUTO) 0.5 (1.0-3.2); LYMPHOCYTES % 14.3 % (18.0-39.1); MEAN CORPUSCULAR HGB CONC 31.3 g/dL (31-35); MEAN CORPUSCULAR VOLUME 86.3 fL (81-99); MONOCYTES # (AUTO) 0.6 (0.2-0.8); MONOCYTES % 14.9 % (4.4-11.3); NEUTROPHILS # (AUTO) 2.4 (2.1-6.9); NEUTROPHILS % 63.9 % (38.7-80.0); RED CELL DISTRIBUTION WIDTH 17.8 % (11.7-14.4)
[2020-11-01 05:37] LABS: PLATELET COUNT 46 x10e3/uL (140-360)
[2020-11-01 05:50] LABS: ANION GAP 10.3 mmol/L (8-16); CALCIUM 7.2 mg/dL (8.4-10.2); CREATININE, SERUM 1.17 mg/dL (0.72-1.25); POTASSIUM 3.3 mmol/L (3.5-5.1)
[2020-11-01 07:36] VITALS: BP 113/77
[2020-11-01 07:37] VITALS: BP 113/77
[2020-11-01] MEDS: FOLIC ACID/CYANOCOB/PYRIDOXINE TAB PO SCH (07:43)
[2020-11-01] MEDS: RIFAXIMIN 550 MG TABLET PO SCH ×2 (07:43→16:48)
[2020-11-01] MEDS: PROPRANOLOL HCL 10 MG TAB PO SCH ×2 (07:44→16:48)
[2020-11-01] MEDS: LACTULOSE SYRUP 20 GM/30 ML UDC PO SCH ×3 (07:46→20:13)
[2020-11-01] MEDS: METOCLOPRAMIDE HCL 10 MG/2ML VIAL IV SCH (07:47)
[2020-11-01] MEDS: CYANOCOBALAMIN INJ 1,000 MCG/ML VIAL IM SCH (07:47)
[2020-11-01] MEDS: CEFTRIAXONE 1 GM in SODIUM CHLORIDE 0.9% 50ML 50 ML IV SCH ×2 (07:47→20:13)
[2020-11-01] MEDS: IRON SUCROSE 100 MG in SODIUM CHLORIDE 0.9% 100 ML 100 ML IV SCH (08:51)
[2020-11-01] MEDS: POTASSIUM CHLORIDE 20 MEQ TAB CR PO SCH ×3 (10:12→19:55)
[2020-11-01] MEDS: MORPHINE SULFATE INJ 4 MG/ML INJ 1ML IV PRN (11:26)
[2020-11-01 20:00] VITALS: BP 100/64
[2020-11-01 20:05] VITALS: BP 100/64
[2020-11-02] VITALS (11 sets, daily range): BP systolic 99–110; BP diastolic 55–74
[2020-11-02] MEDS: Pantoprazole IV 40 MG in SODIUM CHLORIDE 0.9% 50ML 50 ML IV SCH ×2 (04:43→08:00)
[2020-11-02] MEDS: MORPHINE SULFATE INJ 4 MG/ML INJ 1ML IV PRN ×3 (05:40→18:14)
[2020-11-02 05:57] LABS: BASOPHILS % 0.9 % (0.0-1.0); EOSINOPHILS # (AUTO) 0.3 (0.0-0.4); EOSINOPHILS % 7.3 % (0.0-6.0); HEMATOCRIT 24.8 % (38.2-49.6); HEMOGLOBIN 7.7 g/dL (14.0-18.0); LYMPHOCYTES # (AUTO) 0.6 (1.0-3.2); MEAN CORPUSCULAR HEMOGLOBIN 27.5 pg (28-32); MEAN CORPUSCULAR VOLUME 88.6 fL (81-99); MONOCYTES # (AUTO) 0.6 (0.2-0.8); MONOCYTES % 16.1 % (4.4-11.3); NEUTROPHILS % 58.1 % (38.7-80.0); RED CELL DISTRIBUTION WIDTH 18.7 % (11.7-14.4)
[2020-11-02 06:18] LABS: ALBUMIN 1.8 g/dL (3.5-5.0); ALBUMIN/GLOBULIN RATIO 0.4 (0.8-2.0); ANION GAP 10.6 mmol/L (8-16); CALCIUM 7.3 mg/dL (8.4-10.2); CREATININE, SERUM 1.29 mg/dL (0.72-1.25); POTASSIUM 3.6 mmol/L (3.5-5.1)
[2020-11-02 06:41] LABS: MAGNESIUM 1.3 MG/DL (1.3-2.1); PHOSPHORUS 2.2 MG/DL (2.3-4.7)
[2020-11-02 06:42] LABS: PLATELET COUNT 39 x10e3/uL (140-360)
[2020-11-02] MEDS: OCTREOTIDE ACETATE 500 MCG in SODIUM CHLORIDE 0.9% 250ML 249 ML IV SCH ×2 (08:02→17:08)
[2020-11-02] MEDS ORDERED: SODIUM CHLORIDE 0.9% 250ML 250 ML ONE (08:15)
[2020-11-02] MEDS: CEFTRIAXONE 1 GM in SODIUM CHLORIDE 0.9% 50ML 50 ML IV SCH (08:16)
[2020-11-02] MEDS: PROPRANOLOL HCL 10 MG TAB PO SCH ×2 (08:21→17:00)
[2020-11-02] MEDS: LACTULOSE SYRUP 20 GM/30 ML UDC PO SCH ×3 (08:29→12:04)
[2020-11-02] MEDS: RIFAXIMIN 550 MG TABLET PO SCH ×2 (08:30→18:00)
[2020-11-02] MEDS: FOLIC ACID/CYANOCOB/PYRIDOXINE TAB PO SCH (08:30)
[2020-11-02] MEDS: CYANOCOBALAMIN INJ 1,000 MCG/ML VIAL IM SCH (08:44)
[2020-11-02] MEDS: MIDODRINE HCL 5 MG TABLET PO SCH ×3 (08:45→16:42)
[2020-11-02] MEDS: IRON SUCROSE 100 MG in SODIUM CHLORIDE 0.9% 100 ML 100 ML IV SCH (09:30)
[2020-11-02] MEDS ORDERED: FUROSEMIDE INJ 10 MG/ML 4 ML VIAL IV ONE ×2 (11:00→18:45)
[2020-11-02] MEDS: SPIRONOLACTONE 25 MG TAB PO SCH ×2 (16:00→22:17)
[2020-11-03] VITALS (10 sets, daily range): BP systolic 102–117; BP diastolic 58–77
[2020-11-03] MEDS: PROPRANOLOL HCL 10 MG TAB PO SCH ×3 (00:34→23:05)
[2020-11-03] MEDS ORDERED: FUROSEMIDE INJ 10 MG/ML 4 ML VIAL IV ONE (02:00)
[2020-11-03] MEDS: OCTREOTIDE ACETATE 500 MCG in SODIUM CHLORIDE 0.9% 250ML 249 ML IV SCH ×2 (04:46→14:33)
[2020-11-03] MEDS: CEFTRIAXONE 1 GM in SODIUM CHLORIDE 0.9% 50ML 50 ML IV SCH (04:59)
[2020-11-03 06:42] LABS: MAGNESIUM 1.2 MG/DL (1.3-2.1); PHOSPHORUS 3.1 MG/DL (2.3-4.7)
[2020-11-03 06:43] LABS: ALBUMIN/GLOBULIN RATIO 0.5 (0.8-2.0); ANION GAP 10.6 mmol/L (8-16); CALCIUM 7.3 mg/dL (8.4-10.2); CREATININE, SERUM 1.61 mg/dL (0.72-1.25); POTASSIUM 3.6 mmol/L (3.5-5.1)
[2020-11-03] MEDS: MIDODRINE HCL 5 MG TABLET PO SCH ×3 (08:42→17:11)
[2020-11-03] MEDS: FOLIC ACID/CYANOCOB/PYRIDOXINE TAB PO SCH (08:42)
[2020-11-03] MEDS: PANTOPRAZOLE SOD 40 MG TABEC PO SCH (08:42)
[2020-11-03] MEDS: RIFAXIMIN 550 MG TABLET PO SCH ×2 (08:43→17:11)
[2020-11-03] MEDS: LACTULOSE SYRUP 20 GM/30 ML UDC PO SCH ×3 (08:43→23:19)
[2020-11-03] MEDS: SPIRONOLACTONE 25 MG TAB PO SCH ×3 (09:00→23:04)
[2020-11-03 09:02] LABS: BASOPHILS % 1.1 % (0.0-1.0); EOSINOPHILS # (AUTO) 0.4 (0.0-0.4); EOSINOPHILS % 10.6 % (0.0-6.0); HEMATOCRIT 27.5 % (38.2-49.6); LYMPHOCYTES # (AUTO) 0.6 (1.0-3.2); MEAN CORPUSCULAR HEMOGLOBIN 26.8 pg (28-32); MEAN CORPUSCULAR HGB CONC 29.1 g/dL (31-35); MEAN CORPUSCULAR VOLUME 92.3 fL (81-99); MONOCYTES # (AUTO) 0.6 (0.2-0.8); MONOCYTES % 16.6 % (4.4-11.3); NEUTROPHILS # (AUTO) 1.9 (2.1-6.9); NEUTROPHILS % 54.8 % (38.7-80.0); RED BLOOD COUNT 2.98 x10e6/uL (4.3-5.7); RED CELL DISTRIBUTION WIDTH 20.2 % (11.7-14.4)
[2020-11-03 09:07] LABS: PLATELET COUNT 35 x10e3/uL (140-360)
[2020-11-03] MEDS: MORPHINE SULFATE INJ 4 MG/ML INJ 1ML IV PRN ×2 (12:42→17:18)
[2020-11-03] MEDS: FUROSEMIDE INJ 10 MG/ML 4 ML VIAL IV SCH (23:19)
[2020-11-04] VITALS: BP 105/72
[2020-11-04] MEDS: OCTREOTIDE ACETATE 500 MCG in SODIUM CHLORIDE 0.9% 250ML 249 ML IV SCH (00:47)
[2020-11-04 04:00] VITALS: BP 98/63
[2020-11-04] MEDS: CEFTRIAXONE 1 GM in SODIUM CHLORIDE 0.9% 50ML 50 ML IV SCH (05:37)
[2020-11-04] MEDS: MORPHINE SULFATE INJ 4 MG/ML INJ 1ML IV PRN (05:47)
[2020-11-04 06:46] LABS: BASOPHILS % 0.6 % (0.0-1.0); EOSINOPHILS # (AUTO) 0.3 (0.0-0.4); EOSINOPHILS % 8.7 % (0.0-6.0); HEMATOCRIT 26.2 % (38.2-49.6); HEMOGLOBIN 7.8 g/dL (14.0-18.0); LYMPHOCYTES # (AUTO) 0.5 (1.0-3.2); LYMPHOCYTES % 16.2 % (18.0-39.1); MEAN CORPUSCULAR HEMOGLOBIN 27.6 pg (28-32); MEAN CORPUSCULAR HGB CONC 29.8 g/dL (31-35); MEAN CORPUSCULAR VOLUME 92.6 fL (81-99); MONOCYTES # (AUTO) 0.5 (0.2-0.8); MONOCYTES % 16.5 % (4.4-11.3); NEUTROPHILS # (AUTO) 1.8 (2.1-6.9); RED BLOOD COUNT 2.83 x10e6/uL (4.3-5.7); RED CELL DISTRIBUTION WIDTH 20.6 % (11.7-14.4)
[2020-11-04 06:55] LABS: PLATELET COUNT 28 x10e3/uL (140-360)
[2020-11-04 07:35] LABS: ALBUMIN/GLOBULIN RATIO 0.5 (0.8-2.0); ANION GAP 12.7 mmol/L (8-16); CALCIUM 7.3 mg/dL (8.4-10.2); CREATININE, SERUM 1.78 mg/dL (0.72-1.25); POTASSIUM 3.7 mmol/L (3.5-5.1)
[2020-11-04 07:56] VITALS: BP 106/66
[2020-11-04 08:00] LABS: EOSINOPHILS % (MANUAL) 11 % (0-7); LYMPHOCYTES % (MANUAL) 9 % (19-48); MONOCYTES % (MANUAL) 14 % (3.4-9.0); NEUTROPHILS % (MANUAL) 65 % (40-74)
[2020-11-04 08:02] LABS: ANISOCYTOSIS MODERATE; HYPOCHROMASIA MODERATE; PLATELET ESTIMATE MARKEDLY DECREASED; PLATELET MORPHOLOGY COMMENT NORMAL; RBC MORPHOLOGY COMMENT ABNORMAL
[2020-11-04 08:03] LABS: ELLIPTOCYTE, RBC SLIGHT; OVALOCYTES FEW
[2020-11-04] MEDS ORDERED: SODIUM CHLORIDE 0.9% 250ML 250 ML ONE (08:15)
[2020-11-04] MEDS: PANTOPRAZOLE SOD 40 MG TABEC PO SCH (08:45)
[2020-11-04] MEDS: MIDODRINE HCL 5 MG TABLET PO SCH (08:45)
[2020-11-04] MEDS: FOLIC ACID/CYANOCOB/PYRIDOXINE TAB PO SCH (08:46)
[2020-11-04] MEDS: RIFAXIMIN 550 MG TABLET PO SCH (08:46)
[2020-11-04] MEDS: SPIRONOLACTONE 25 MG TAB PO SCH (08:48)
[2020-11-04] MEDS: PROPRANOLOL HCL 10 MG TAB PO SCH (08:48)
[2020-11-04] MEDS: FUROSEMIDE INJ 10 MG/ML 4 ML VIAL IV SCH (08:48)
[2020-11-04] MEDS: LACTULOSE SYRUP 20 GM/30 ML UDC PO SCH (08:49)
== END 2020-11-04 09:40 | disposition home or self-care (01) | DRG 432 ==
LOC: ER 12:25 → ERHOLD 13:46 → MED/SURG 10-30 14:41
PROVIDERS: ADMIT Internal Medicine; ATTEND Internal Medicine
PROC: 30233N1 Transfusion of Nonautologous Red Blood Cells into Peripheral Vein, Percutaneous Approach (ICD-10-PCS; 2020-10-29)
PROC: 02HV33Z Insertion of Infusion Device into Superior Vena Cava, Percutaneous Approach (ICD-10-PCS; 2020-10-30)
PROC: 30233K1 Transfusion of Nonautologous Frozen Plasma into Peripheral Vein, Percutaneous Approach (ICD-10-PCS; 2020-10-30)
PROC: 30233L1 Transfusion of Nonautologous Fresh Plasma into Peripheral Vein, Percutaneous Approach (ICD-10-PCS; 2020-10-30)
PROC: 30233R1 Transfusion of Nonautologous Platelets into Peripheral Vein, Percutaneous Approach (ICD-10-PCS; 2020-10-30)
PROC: 06L38CZ Occlusion of Esophageal Vein with Extraluminal Device, Via Natural or Artificial Opening Endoscopic (ICD-10-PCS; principal; 2020-10-30 14:30)
DX: K70.31 Alcoholic cirrhosis of liver with ascites (principal); I85.11 Secondary esophageal varices with bleeding; I81 Portal vein thrombosis; R57.8 Other shock; K72.00 Acute and subacute hepatic failure without coma; K76.6 Portal hypertension; N17.9 Acute kidney failure, unspecified; F10.229 Alcohol dependence with intoxication, unspecified; Y90.8 Blood alcohol level of 240 mg/100 ml or more; Z86.19 Personal history of other infectious and parasitic diseases; F17.210 Nicotine dependence, cigarettes, uncomplicated; Z20.822 Contact with and (suspected) exposure to COVID-19; D64.9 Anemia, unspecified; E86.0 Dehydration; D69.6 Thrombocytopenia, unspecified; K44.9 Diaphragmatic hernia without obstruction or gangrene; K31.89 Other diseases of stomach and duodenum; Z91.14 Patient's other noncompliance with medication regimen; N18.30 Chronic kidney disease, stage 3 unspecified; I12.9 Hypertensive chronic kidney disease with stage 1 through stage 4 chronic kidney disease, or unspecified chronic kidney disease
CPT/HCPCS: 36415; 36569; 43239; 70450; 71045; 74176; 76770; 80048; 80053; 80320; 81001; 82140; 82550; 82553; 82607; 82728; 82746; 83540; 83735; 84100; 84466; 84484; 85025; 85045; 85610; 85730; 86850; 86900; 86920; 87521; 93005; 99285; J0696; J1756; J1940; J2270; J2353; J2405; J2765; J3411; J3420; J3430; J7030; J7050; P9016; P9017; P9034; U0002

== ENCOUNTER 2020-11-17 12:06 | Emergency (ER) | payer MEDICARE ==
[~2020-11-17] VITALS: Ht 175.3 cm; Wt 97.1 kg
[~2020-11-17 12:06] MED LIST changes: +VITAMIN C500 MG PO
[2020-11-17 12:35] LABS: BASOPHILS % 0.9 % (0.0-1.0); EOSINOPHILS # (AUTO) 0.2 (0.0-0.4); EOSINOPHILS % 6.7 % (0.0-6.0); HEMATOCRIT 26.2 % (38.2-49.6); HEMOGLOBIN 8.1 g/dL (14.0-18.0); LYMPHOCYTES # (AUTO) 0.5 (1.0-3.2); LYMPHOCYTES % 20.1 % (18.0-39.1); MEAN CORPUSCULAR HEMOGLOBIN 28.2 pg (28-32); MEAN CORPUSCULAR HGB CONC 30.9 g/dL (31-35); MEAN CORPUSCULAR VOLUME 91.3 fL (81-99); MONOCYTES # (AUTO) 0.3 (0.2-0.8); MONOCYTES % 15.2 % (4.4-11.3); NEUTROPHILS # (AUTO) 1.3 (2.1-6.9); NEUTROPHILS % 56.7 % (38.7-80.0); RED BLOOD COUNT 2.87 x10e6/uL (4.3-5.7); RED CELL DISTRIBUTION WIDTH 24.3 % (11.7-14.4)
[2020-11-17 12:42] LABS: PLATELET COUNT 36 x10e3/uL (140-360)
[2020-11-17 12:47] LABS: INR 1.44; PROTHROMBIN TIME 17.8 seconds (11.9-14.5)
[2020-11-17 12:57] LABS: ALBUMIN 1.9 g/dL (3.5-5.0); ALBUMIN/GLOBULIN RATIO 0.4 (0.8-2.0); ANION GAP 11.2 mmol/L (8-16); CALCIUM 7.4 mg/dL (8.4-10.2); CREATININE, SERUM 0.83 mg/dL (0.72-1.25); POTASSIUM 3.2 mmol/L (3.5-5.1)
== END 2020-11-17 14:03 | disposition home or self-care (01) ==
LOC: ER 12:09
DX: K74.60 Unspecified cirrhosis of liver (principal); R60.1 Generalized edema; Z20.822 Contact with and (suspected) exposure to COVID-19
CPT/HCPCS: 36415; 71045; 80053; 82140; 83880; 84484; 85025; 85610; 99284; U0002

== ENCOUNTER 2021-01-08 19:00 | Inpatient (IN) | payer MEDICARE ==
[~2021-01-08] VITALS: Ht 177.8 cm; Wt 96.2 kg
[2021-01-08] MEDS ORDERED: SODIUM CHLORIDE 0.9% 1000ML 1,000 ML IV STA (19:03)
[2021-01-08 19:28] LABS: BASOPHILS # (AUTO) 0.1 (0.0-0.1); BASOPHILS % 1.3 % (0.0-1.0); EOSINOPHILS # (AUTO) 0.5 (0.0-0.4); EOSINOPHILS % 12.1 % (0.0-6.0); HEMATOCRIT 25.5 % (38.2-49.6); HEMOGLOBIN 8.3 g/dL (14.0-18.0); LYMPHOCYTES # (AUTO) 0.8 (1.0-3.2); LYMPHOCYTES % 19.3 % (18.0-39.1); MEAN CORPUSCULAR HGB CONC 32.5 g/dL (31-35); MEAN CORPUSCULAR VOLUME 98.5 fL (81-99); MONOCYTES # (AUTO) 0.4 (0.2-0.8); MONOCYTES % 10.3 % (4.4-11.3); NEUTROPHILS # (AUTO) 2.2 (2.1-6.9); NEUTROPHILS % 56.5 % (38.7-80.0); RED BLOOD COUNT 2.59 x10e6/uL (4.3-5.7); RED CELL DISTRIBUTION WIDTH 16.1 % (11.7-14.4)
[2021-01-08] MEDS ORDERED: AMMONIA AROMATIC INHAL 0.33 ML AMP INH ONE (19:31)
[2021-01-08 19:35] LABS: PLATELET COUNT 30 x10e3/uL (140-360)
[2021-01-08 19:45] LABS: ALBUMIN 1.8 g/dL (3.5-5.0); ALBUMIN/GLOBULIN RATIO 0.3 (0.8-2.0); ANION GAP 16.1 mmol/L (8-16); CALCIUM 7.1 mg/dL (8.4-10.2); CREATININE, SERUM 0.78 mg/dL (0.72-1.25); POTASSIUM 3.1 mmol/L (3.5-5.1)
[2021-01-08 19:51] LABS: CREATINE KINASE MB 2.5 ng/mL (0-5.0)
[2021-01-08] MEDS ORDERED: SODIUM CHLORIDE 0.9% 1000ML 1,000 ML IV SCH (20:00)
[2021-01-08] MEDS ORDERED: LACTULOSE SYRUP 20 GM/30 ML UDC PO PRN (20:45)
[2021-01-08] MEDS ORDERED: SODIUM CHLORIDE 0.9% 50ML 50 ML ONE (20:52)
[2021-01-08] MEDS ORDERED: IOPAMIDOL 370 MG/ML 200 ML INFUS..BTL INJ ONE (20:52)
[2021-01-08] MEDS: SODIUM CHLORIDE 0.9% 1000ML 1,000 ML IV SCH (23:00)
[2021-01-08] MEDS ORDERED: SODIUM CHLORIDE 0.9% 1000ML 1,000 ML IV ONE ×2 (23:00→23:45)
[2021-01-08] MEDS: ONDANSETRON HCL INJ 2MG/ML 2ML 2 MG/ML VIAL IV PRN (23:30)
[2021-01-08] MEDS: Morphine 2mg Syringe 2 MG/ML SYR IV PRN (23:30)
[2021-01-08] MEDS: PIPERACILLIN/TAZOBACTAM 3.375 GM in SODIUM CHLORIDE 0.9% 50ML 50 ML IV SCH (23:58)
[2021-01-09] VITALS (8 sets, daily range): BP systolic 117–141; BP diastolic 71–109
[2021-01-09] MEDS ORDERED: INDERAL10 MG PO (02:12)
[2021-01-09] MEDS ORDERED: FUROSEMIDE40 MG PO (02:12)
[2021-01-09] MEDS ORDERED: MIDODRINE HCL10 MG PO (02:12)
[2021-01-09] MEDS ORDERED: SPIRONOLACTONE50 MG PO (02:12)
[2021-01-09] MEDS: Morphine 2mg Syringe 2 MG/ML SYR IV PRN ×4 (05:20→22:55)
[2021-01-09] MEDS: PIPERACILLIN/TAZOBACTAM 3.375 GM in SODIUM CHLORIDE 0.9% 50ML 50 ML IV SCH ×4 (05:37→23:20)
[2021-01-09 06:03] LABS: BASOPHILS % 1.3 % (0.0-1.0); EOSINOPHILS # (AUTO) 0.2 (0.0-0.4); EOSINOPHILS % 7.6 % (0.0-6.0); LYMPHOCYTES # (AUTO) 0.7 (1.0-3.2); LYMPHOCYTES % 22.8 % (18.0-39.1); MEAN CORPUSCULAR HGB CONC 32.2 g/dL (31-35); MEAN CORPUSCULAR VOLUME 99.5 fL (81-99); MONOCYTES # (AUTO) 0.4 (0.2-0.8); MONOCYTES % 12.5 % (4.4-11.3); NEUTROPHILS # (AUTO) 1.7 (2.1-6.9); NEUTROPHILS % 55.1 % (38.7-80.0); RED BLOOD COUNT 2.03 x10e6/uL (4.3-5.7); RED CELL DISTRIBUTION WIDTH 16.2 % (11.7-14.4)
[2021-01-09 06:14] LABS: HEMATOCRIT 20.2 % (38.2-49.6); HEMOGLOBIN 6.5 g/dL (14.0-18.0); PLATELET COUNT 21 x10e3/uL (140-360)
[2021-01-09 06:30] LABS: ALBUMIN 1.6 g/dL (3.5-5.0); ALBUMIN/GLOBULIN RATIO 0.4 (0.8-2.0); CREATININE, SERUM 0.64 mg/dL (0.72-1.25)
[2021-01-09 06:36] LABS: CALCIUM 6.2 mg/dL (8.4-10.2)
[2021-01-09 06:52] LABS: CREATINE KINASE MB 1.7 ng/mL (0-5.0)
[2021-01-09] MEDS: SODIUM CHLORIDE 0.9% 1000ML 1,000 ML IV SCH ×3 (08:22→23:09)
[2021-01-09] MEDS ORDERED: CALCIUM GLUCONATE 10% INJ 9.3 MEQ in SODIUM CHLORIDE 0.9% 100 ML 100 ML IV ONE (09:00)
[2021-01-09] MEDS ORDERED: SODIUM CHLORIDE 0.9% 250ML 250 ML IV NR (09:00)
[2021-01-09 09:07] LABS: EOSINOPHILS % (MANUAL) 5 % (0-7); LYMPHOCYTES % (MANUAL) 15 % (19-48); MONOCYTES % (MANUAL) 6 % (3.4-9.0); NEUTROPHILS % (MANUAL) 70 % (40-74)
[2021-01-09 09:08] LABS: PLATELET ESTIMATE MARKEDLY DECREASED; PLATELET MORPHOLOGY COMMENT NORMAL; RBC MORPHOLOGY COMMENT NORMAL
[2021-01-09] MEDS ORDERED: POTASSIUM CHLORIDE 20 MEQ TAB CR PO NR (12:45)
[2021-01-09] MEDS: LACTULOSE SYRUP 20 GM/30 ML UDC PO SCH ×3 (13:54→23:29)
[2021-01-09 14:02] LABS: CREATINE KINASE MB 1.3 ng/mL (0-5.0)
[2021-01-09] MEDS ORDERED: SODIUM CHLORIDE 0.9% 250ML 250 ML ONE (16:53)
[2021-01-09] MEDS: ONDANSETRON HCL INJ 2MG/ML 2ML 2 MG/ML VIAL IV PRN ×2 (17:46→22:55)
[2021-01-09] MEDS ORDERED: THIAMINE HCL INJ 100 MG/ML 2ML VIAL IV ONE (23:15)
[2021-01-09] MEDS ORDERED: MULTIVITAMINS- 12 INJECTION 10 ML, FOLIC ACID MDV 1 MG, THIAMINE HCL INJ 100 MG in SODI... IV SCH (23:15)
[2021-01-09] MEDS ORDERED: RIFAXIMIN 550 MG TABLET PO STA (23:48)
[2021-01-09] MEDS ORDERED: THIAMINE HCL INJ 100 MG/ML 2ML VIAL ONE (23:53)
[2021-01-09] MEDS ORDERED: SODIUM CHLORIDE 0.9% 1000ML 1,000 ML ONE (23:53)
[2021-01-09] MEDS ORDERED: MULTIVITAMINS INJECTION ONE (23:58)
[2021-01-09] MEDS ORDERED: FOLIC ACID 5 MG/ML VIAL ONE (23:58)
[2021-01-10] VITALS (9 sets, daily range): BP systolic 102–138; BP diastolic 67–98
[2021-01-10] MEDS: MULTIVITAMINS- 12 INJECTION 10 ML, FOLIC ACID MDV 1 MG, THIAMINE HCL INJ 100 MG in SODI... IV SCH ×2 (00:14→20:26)
[2021-01-10] MEDS: METOCLOPRAMIDE HCL 10 MG/2ML VIAL IV SCH ×5 (00:14→23:18)
[2021-01-10 02:32] LABS: % IRON SATURATION 17 % (15-50); IRON 46 ug/dL (65-175); TOTAL IRON BINDING CAPACITY 265 ug/dL (261-478); TRANSFERRIN 189 mg/dL (174-364)
[2021-01-10] MEDS: Morphine 2mg Syringe 2 MG/ML SYR IV PRN ×3 (05:20→23:20)
[2021-01-10] MEDS: LACTULOSE SYRUP 20 GM/30 ML UDC PO SCH ×4 (05:35→23:18)
[2021-01-10] MEDS: PIPERACILLIN/TAZOBACTAM 3.375 GM in SODIUM CHLORIDE 0.9% 50ML 50 ML IV SCH ×4 (05:35→23:18)
[2021-01-10] MEDS: SODIUM CHLORIDE 0.9% 1000ML 1,000 ML IV SCH ×2 (06:21→11:41)
[2021-01-10 08:12] LABS: ALBUMIN 1.8 g/dL (3.5-5.0); ALBUMIN/GLOBULIN RATIO 0.3 (0.8-2.0); ANION GAP 15.3 mmol/L (8-16); CALCIUM 7.2 mg/dL (8.4-10.2); CREATININE, SERUM 0.88 mg/dL (0.72-1.25); POTASSIUM 3.3 mmol/L (3.5-5.1)
[2021-01-10] MEDS: PROPRANOLOL HCL 10 MG TAB PO SCH ×2 (08:42→16:15)
[2021-01-10] MEDS: RIFAXIMIN 550 MG TABLET PO SCH ×2 (08:42→16:14)
[2021-01-10] MEDS ORDERED: THIAMINE HCL INJ 100 MG/ML 2ML VIAL IV SCH (09:00)
[2021-01-10] MEDS ORDERED: POTASSIUM CHLORIDE 10MEQ EA PO NR (12:30)
[2021-01-10 12:38] LABS: EOSINOPHILS # (AUTO) 0.1 (0.0-0.4); EOSINOPHILS % 3.4 % (0.0-6.0); HEMATOCRIT 26.4 % (38.2-49.6); HEMOGLOBIN 8.5 g/dL (14.0-18.0); LYMPHOCYTES # (AUTO) 0.5 (1.0-3.2); LYMPHOCYTES % 11.5 % (18.0-39.1); MEAN CORPUSCULAR HEMOGLOBIN 31.6 pg (28-32); MEAN CORPUSCULAR HGB CONC 32.2 g/dL (31-35); MEAN CORPUSCULAR VOLUME 98.1 fL (81-99); MONOCYTES # (AUTO) 0.6 (0.2-0.8); MONOCYTES % 13.9 % (4.4-11.3); NEUTROPHILS # (AUTO) 2.9 (2.1-6.9); NEUTROPHILS % 69.7 % (38.7-80.0); RED BLOOD COUNT 2.69 x10e6/uL (4.3-5.7); RED CELL DISTRIBUTION WIDTH 17.5 % (11.7-14.4)
[2021-01-10 12:44] LABS: PLATELET COUNT 19 x10e3/uL (140-360)
[2021-01-10] MEDS ORDERED: OCTREOTIDE ACETATE 500 MCG in SODIUM CHLORIDE 0.9% 250ML 249 ML IV SCH (13:15)
[2021-01-10] MEDS: OCTREOTIDE ACETATE 500 MCG in SODIUM CHLORIDE 0.9% 250ML 249 ML IV SCH ×2 (14:13→23:59)
[2021-01-11] MEDS ORDERED: FUROSEMIDE 40 MG TAB PO ONE (01:15)
[2021-01-11 04:00] VITALS: BP 115/73
[2021-01-11] MEDS ORDERED: SUCRALFATE 1 GM TAB PO SCH (07:30)
[2021-01-11] MEDS ORDERED: FUROSEMIDE 40 MG TAB PO SCH (09:00)
[2021-01-11] MEDS ORDERED: IRON SUCROSE 100 MG in SODIUM CHLORIDE 0.9% 100 ML 100 ML IV SCH (09:00)
[2021-01-11] MEDS ORDERED: SPIRONOLACTONE 25 MG TAB PO SCH (09:00)
== END 2021-01-11 05:51 | disposition left against medical advice (07) | DRG 441 ==
LOC: ER 19:09 → ERHOLD 19:59 → MED/SURG2 01-09 01:15
PROVIDERS: ADMIT Internal Medicine; ATTEND Internal Medicine
DX: K72.90 Hepatic failure, unspecified without coma (principal); G93.41 Metabolic encephalopathy; K72.00 Acute and subacute hepatic failure without coma; D62 Acute posthemorrhagic anemia; K92.2 Gastrointestinal hemorrhage, unspecified; E87.2 Acidosis; D61.818 Other pancytopenia; K70.30 Alcoholic cirrhosis of liver without ascites; F10.229 Alcohol dependence with intoxication, unspecified; Y90.8 Blood alcohol level of 240 mg/100 ml or more; B18.2 Chronic viral hepatitis C; E87.6 Hypokalemia; E83.51 Hypocalcemia; K72.10 Chronic hepatic failure without coma
CPT/HCPCS: 36415; 71045; 74177; 80053; 80320; 82140; 82270; 82550; 82553; 82607; 82746; 83540; 83605; 83690; 83880; 84466; 84484; 85025; 86850; 86900; 86920; 93005; 99284; J0610; J1756; J2270; J2353; J2405; J2543; J2765; J3411; J7030; J7050; P9016; Q9967; U0002

== ENCOUNTER 2021-01-30 21:22 | Inpatient (IN) | payer MEDICARE, OTHER ==
[~2021-01-30] VITALS: Ht 177.8 cm; Wt 96.2 kg
[~2021-01-30 21:22] MED LIST changes: +FUROSEMIDE40 MG PO; +INDERAL10 MG PO; +MIDODRINE HCL10 MG PO; +SPIRONOLACTONE50 MG PO
[2021-01-30] MEDS ORDERED: SODIUM CHLORIDE 0.9% 1000ML 1,000 ML IV STA (21:40)
[2021-01-30 22:02] LABS: BASOPHILS # (AUTO) 0.1 (0.0-0.1); BASOPHILS % 1.2 % (0.0-1.0); EOSINOPHILS # (AUTO) 0.4 (0.0-0.4); EOSINOPHILS % 10.5 % (0.0-6.0); HEMATOCRIT 20.3 % (38.2-49.6); LYMPHOCYTES # (AUTO) 0.9 (1.0-3.2); LYMPHOCYTES % 21.9 % (18.0-39.1); MEAN CORPUSCULAR HEMOGLOBIN 31.4 pg (28-32); MEAN CORPUSCULAR HGB CONC 31.5 g/dL (31-35); MEAN CORPUSCULAR VOLUME 99.5 fL (81-99); MONOCYTES # (AUTO) 0.5 (0.2-0.8); MONOCYTES % 11.9 % (4.4-11.3); NEUTROPHILS # (AUTO) 2.3 (2.1-6.9); RED BLOOD COUNT 2.04 x10e6/uL (4.3-5.7); RED CELL DISTRIBUTION WIDTH 20.1 % (11.7-14.4)
[2021-01-30 22:07] LABS: HEMOGLOBIN 6.4 g/dL (14.0-18.0); PLATELET COUNT 27 x10e3/uL (140-360)
[2021-01-30 22:12] LABS: INR 1.63; PARTIAL THROMBOPLASTIN TIME 43.2 seconds (23.8-35.5); PROTHROMBIN TIME 20.6 seconds (11.9-14.5)
[2021-01-30 22:21] LABS: ALBUMIN 1.6 g/dL (3.5-5.0); ALBUMIN/GLOBULIN RATIO 0.4 (0.8-2.0); ANION GAP 15.4 mmol/L (8-16); CREATININE, SERUM 0.87 mg/dL (0.72-1.25); POTASSIUM 3.4 mmol/L (3.5-5.1)
[2021-01-30 22:24] LABS: CALCIUM 6.9 mg/dL (8.4-10.2)
[2021-01-30 22:27] LABS: CREATINE KINASE MB 1.2 ng/mL (0-5.0)
[2021-01-30] MEDS ORDERED: SODIUM CHLORIDE 0.9% 250ML 250 ML IV ONE (22:30)
[2021-01-30] MEDS ORDERED: DIPHENHYDRAMINE HCL INJ 50 MG/ML VIAL IV ONE (22:30)
[2021-01-30] MEDS ORDERED: SODIUM CHLORIDE 0.9% 100 ML ONE (22:39)
[2021-01-30] MEDS ORDERED: IOPAMIDOL 370 MG/ML 200 ML INFUS..BTL INJ ONE (22:39)
[2021-01-30] MEDS ORDERED: CALCIUM GLUCONATE 10% INJ 4.65 MEQ in SODIUM CHLORIDE 0.9% 50ML 50 ML IV ONE (23:30)
[2021-01-30] MEDS ORDERED: CEFTRIAXONE 1 GM in SODIUM CHLORIDE 0.9% 50ML 50 ML IV ONE (23:30)
[2021-01-31] VITALS (9 sets, daily range): BP systolic 109–124; BP diastolic 66–80
[2021-01-31] MEDS ORDERED: ONDANSETRON HCL INJ 2MG/ML 2ML 2 MG/ML VIAL IV STA (00:41)
[2021-01-31 01:11] LABS: EOSINOPHILS % (MANUAL) 8 % (0-7); HYPOCHROMASIA MARKED; LYMPHOCYTES % (MANUAL) 19 % (19-48); MONOCYTES % (MANUAL) 27 % (3.4-9.0); NEUTROPHILS % (MANUAL) 46 % (40-74); PLATELET MORPHOLOGY COMMENT NORMAL; POIKILOCYTOSIS SLIGHT
[2021-01-31 01:12] LABS: PLATELET ESTIMATE MARKEDLY INCREASED
[2021-01-31] MEDS ORDERED: SODIUM CHLORIDE 0.9% 250ML 250 ML ONE ×3 (01:32→15:18)
[2021-01-31 06:41] LABS: CLARITY,URINE SL CLOUDY (CLEAR); COLOR,URINE AMBER (YELLOW); LEUKOCYTE ESTERASE ,URINE NEGATIVE (NEGATIVE); NITRITE,URINE NEGATIVE (NEGATIVE); PROTEIN,URINE DIPSTICK 2+ (NEGATIVE)
[2021-01-31 06:42] LABS: AMPHETAMINES SCREEN,URINE NEGATIVE (NEGATIVE); BENZODIAZEPINES SCREEN,URINE NEGATIVE (NEGATIVE); KETONES,URINE NEGATIVE (NEGATIVE); PHENCYCLIDINE SCREEN,URINE NEGATIVE (NEGATIVE); URINE UROBILINOGEN >=8 mg/dL (0.2 - 1)
[2021-01-31] MEDS: ONDANSETRON HCL INJ 2MG/ML 2ML 2 MG/ML VIAL IV PRN ×2 (06:42→18:21)
[2021-01-31 06:46] LABS: BACTERIA,URINE FEW /HPF; EPITHELIAL CELLS,URINE RARE /LPF; RBC,URINE >50 /HPF (0-5)
[2021-01-31] MEDS ORDERED: ALBUTEROL/IPRATROPIUM 3 ML NEB NEB PRN (08:00)
[2021-01-31] MEDS ORDERED: DOCUSATE SODIUM 100 MG CAP PO PRN (08:00)
[2021-01-31] MEDS ORDERED: MELATONIN 5 MG TABLET PO PRN (08:00)
[2021-01-31] MEDS ORDERED: LIDOCAINE 4% PATCH TP PRN (08:00)
[2021-01-31] MEDS ORDERED: PHYTONADIONE 10 MG/ML AMP SQ ONE ×2 (08:00→12:00)
[2021-01-31] MEDS ORDERED: ACETAMINOPHEN 325 MG TAB PO PRN (08:00)
[2021-01-31] MEDS ORDERED: BENZONATATE 100 MG CAP PO PRN (08:00)
[2021-01-31] MEDS ORDERED: HYDRALAZINE HCL 20 MG/ML VIAL IV PRN (08:00)
[2021-01-31] MEDS ORDERED: DIPHENHYDRAMINE HCL 25 MG CAP PO PRN (08:00)
[2021-01-31] MEDS ORDERED: DEXTROSE 50% SYRINGE 50 ML IV PRN (08:00)
[2021-01-31] MEDS ORDERED: LACTULOSE20 GM/30 M PO (08:45)
[2021-01-31] MEDS: MIDODRINE HCL 5 MG TABLET PO SCH ×3 (10:00→17:25)
[2021-01-31] MEDS: PROPRANOLOL HCL 10 MG TAB PO SCH ×2 (10:00→17:25)
[2021-01-31] MEDS: TRAMADOL HCL 50 MG TAB PO PRN (10:20)
[2021-01-31] MEDS ORDERED: OCTREOTIDE ACETATE 500 MCG in SODIUM CHLORIDE 0.9% 250ML 249 ML IV SCH (15:00)
[2021-01-31] MEDS: CEFTRIAXONE 2 GM in SODIUM CHLORIDE 0.9% 100 ML IV SCH (15:00)
[2021-01-31 16:07] LABS: BASOPHILS % 0.8 % (0.0-1.0); EOSINOPHILS # (AUTO) 0.3 (0.0-0.4); EOSINOPHILS % 8.2 % (0.0-6.0); LYMPHOCYTES # (AUTO) 0.7 (1.0-3.2); LYMPHOCYTES % 19.6 % (18.0-39.1); MEAN CORPUSCULAR HEMOGLOBIN 31.2 pg (28-32); MEAN CORPUSCULAR HGB CONC 32.3 g/dL (31-35); MONOCYTES # (AUTO) 0.4 (0.2-0.8); MONOCYTES % 10.9 % (4.4-11.3); NEUTROPHILS # (AUTO) 2.3 (2.1-6.9); NEUTROPHILS % 59.7 % (38.7-80.0); RED BLOOD COUNT 2.02 x10e6/uL (4.3-5.7); RED CELL DISTRIBUTION WIDTH 19.7 % (11.7-14.4)
[2021-01-31 16:10] LABS: MEAN CORPUSCULAR VOLUME 96.5 fL (81-99)
[2021-01-31 16:15] LABS: HEMOGLOBIN 6.3 g/dL (14.0-18.0)
[2021-01-31 16:16] LABS: HEMATOCRIT 19.5 % (38.2-49.6); PLATELET COUNT 37 x10e3/uL (140-360)
[2021-01-31 16:20] LABS: INR 1.52; PROTHROMBIN TIME 19.5 seconds (11.9-14.5)
[2021-01-31] MEDS: MULTIVITAMINS- 12 INJECTION 10 ML, FOLIC ACID MDV 1 MG, THIAMINE HCL INJ 100 MG in SODI... IV SCH (16:30)
[2021-01-31] MEDS: Pantoprazole IV 40 MG in SODIUM CHLORIDE 0.9% 50ML 50 ML IV SCH ×2 (16:30→21:10)
[2021-01-31] MEDS: LACTULOSE SYRUP 20 GM/30 ML UDC PO SCH (17:25)
[2021-01-31] MEDS: FUROSEMIDE INJ 10 MG/ML 2 ML VIAL IV SCH (17:25)
[2021-01-31] MEDS ORDERED: SODIUM CHLORIDE 0.9% 250ML 250 ML IV ONE (17:30)
[2021-01-31] MEDS: METOCLOPRAMIDE HCL 10 MG/2ML VIAL IV SCH (23:10)
[2021-02-01] VITALS (8 sets, daily range): BP systolic 95–121; BP diastolic 62–82
[2021-02-01] MEDS ORDERED: SODIUM CHLORIDE 0.9% 250ML 250 ML ONE (00:54)
[2021-02-01] MEDS: MULTIVITAMINS- 12 INJECTION 10 ML, FOLIC ACID MDV 1 MG, THIAMINE HCL INJ 100 MG in SODI... IV SCH ×3 (01:07→20:37)
[2021-02-01] MEDS: Pantoprazole IV 40 MG in SODIUM CHLORIDE 0.9% 50ML 50 ML IV SCH ×5 (02:27→20:37)
[2021-02-01] MEDS ORDERED: SODIUM CHLORIDE 0.9% 50ML 50 ML ONE (02:32)
[2021-02-01] MEDS: OCTREOTIDE ACETATE 500 MCG in SODIUM CHLORIDE 0.9% 250ML 249 ML IV SCH ×3 (04:10→20:37)
[2021-02-01] MEDS ORDERED: PHYTONADIONE 10 MG/ML AMP IV ONE (04:15)
[2021-02-01] MEDS: TRAMADOL HCL 50 MG TAB PO PRN (04:20)
[2021-02-01] MEDS ORDERED: PHYTONADIONE 10MG/ML 20 MG in SODIUM CHLORIDE 0.9% 100 ML SC ONE (04:45)
[2021-02-01] MEDS: METOCLOPRAMIDE HCL 10 MG/2ML VIAL IV SCH ×3 (06:33→22:00)
[2021-02-01 07:13] LABS: BASOPHILS % 0.6 % (0.0-1.0); EOSINOPHILS # (AUTO) 0.3 (0.0-0.4); EOSINOPHILS % 10.4 % (0.0-6.0); HEMATOCRIT 26.7 % (38.2-49.6); HEMOGLOBIN 8.8 g/dL (14.0-18.0); LYMPHOCYTES # (AUTO) 0.5 (1.0-3.2); LYMPHOCYTES % 16.5 % (18.0-39.1); MEAN CORPUSCULAR HEMOGLOBIN 31.1 pg (28-32); MEAN CORPUSCULAR VOLUME 94.3 fL (81-99); MONOCYTES # (AUTO) 0.3 (0.2-0.8); MONOCYTES % 10.4 % (4.4-11.3); NEUTROPHILS # (AUTO) 1.9 (2.1-6.9); NEUTROPHILS % 61.5 % (38.7-80.0); RED BLOOD COUNT 2.83 x10e6/uL (4.3-5.7); RED CELL DISTRIBUTION WIDTH 19.5 % (11.7-14.4)
[2021-02-01 07:15] LABS: PLATELET COUNT 43 x10e3/uL (140-360)
[2021-02-01 07:16] LABS: INR 1.45; PROTHROMBIN TIME 18.8 seconds (11.9-14.5)
[2021-02-01 07:31] LABS: ALBUMIN 1.8 g/dL (3.5-5.0); ALBUMIN/GLOBULIN RATIO 0.4 (0.8-2.0); CALCIUM 7.3 mg/dL (8.4-10.2); CREATININE, SERUM 1.16 mg/dL (0.72-1.25)
[2021-02-01] MEDS: LACTULOSE SYRUP 20 GM/30 ML UDC PO SCH ×2 (08:35→18:23)
[2021-02-01] MEDS: FUROSEMIDE INJ 10 MG/ML 2 ML VIAL IV SCH (08:35)
[2021-02-01] MEDS: MIDODRINE HCL 5 MG TABLET PO SCH ×3 (08:35→16:00)
[2021-02-01] MEDS: PROPRANOLOL HCL 10 MG TAB PO SCH ×2 (08:35→18:23)
[2021-02-01] MEDS: CEFTRIAXONE 2 GM in SODIUM CHLORIDE 0.9% 100 ML IV SCH (08:35)
[2021-02-01] MEDS: POTASSIUM CHLORIDE 20 MEQ TAB CR PO PRN (09:29)
[2021-02-01] MEDS: LORAZEPAM INJ 2 MG/ML VIAL IV PRN (10:00)
[2021-02-01 13:32] LABS: HEMOGLOBIN 7.9 g/dL (14.0-18.0); MEAN CORPUSCULAR HEMOGLOBIN 30.7 pg (28-32); MEAN CORPUSCULAR HGB CONC 31.6 g/dL (31-35); MEAN CORPUSCULAR VOLUME 97.3 fL (81-99); RED BLOOD COUNT 2.57 x10e6/uL (4.3-5.7); RED CELL DISTRIBUTION WIDTH 19.3 % (11.7-14.4)
[2021-02-01 13:37] LABS: PLATELET COUNT 42 x10e3/uL (140-360)
[2021-02-01 13:45] LABS: FERRITIN 72.16 ng/mL (21.81-274.66)
[2021-02-01 13:47] LABS: INR 1.45; PROTHROMBIN TIME 18.8 seconds (11.9-14.5)
[2021-02-01] MEDS ORDERED: POTASSIUM CHLORIDE 20 MEQ TAB CR PO ONE (14:00)
[2021-02-01 16:25] LABS: EOSINOPHILS % (MANUAL) 3 % (0-7); HYPOCHROMASIA SLIGHT; LYMPHOCYTES % (MANUAL) 15 % (19-48); MONOCYTES % (MANUAL) 8 % (3.4-9.0); NEUTROPHILS % (MANUAL) 73 % (40-74); RBC MORPHOLOGY COMMENT NORMAL
[2021-02-01 16:26] LABS: PLATELET ESTIMATE MARKEDLY DECREASED; PLATELET MORPHOLOGY COMMENT FEW GIANT
[2021-02-01 20:01] LABS: BASOPHILS % 0.6 % (0.0-1.0); EOSINOPHILS # (AUTO) 0.5 (0.0-0.4); EOSINOPHILS % 15.4 % (0.0-6.0); HEMATOCRIT 24.2 % (38.2-49.6); HEMOGLOBIN 7.8 g/dL (14.0-18.0); LYMPHOCYTES # (AUTO) 0.6 (1.0-3.2); LYMPHOCYTES % 17.2 % (18.0-39.1); MEAN CORPUSCULAR HEMOGLOBIN 31.1 pg (28-32); MEAN CORPUSCULAR HGB CONC 32.2 g/dL (31-35); MEAN CORPUSCULAR VOLUME 96.4 fL (81-99); MONOCYTES # (AUTO) 0.4 (0.2-0.8); MONOCYTES % 11.5 % (4.4-11.3); NEUTROPHILS # (AUTO) 1.9 (2.1-6.9); NEUTROPHILS % 54.7 % (38.7-80.0); PLATELET COUNT 52 x10e3/uL (140-360); RED BLOOD COUNT 2.51 x10e6/uL (4.3-5.7)
[2021-02-02] VITALS (9 sets, daily range): BP systolic 89–118; BP diastolic 61–85
[2021-02-02] MEDS: LORAZEPAM INJ 2 MG/ML VIAL IV PRN ×2 (02:00→09:13)
[2021-02-02 02:48] LABS: BASOPHILS % 0.8 % (0.0-1.0); EOSINOPHILS # (AUTO) 0.5 (0.0-0.4); EOSINOPHILS % 13.5 % (0.0-6.0); HEMATOCRIT 24.5 % (38.2-49.6); HEMOGLOBIN 7.9 g/dL (14.0-18.0); LYMPHOCYTES # (AUTO) 0.6 (1.0-3.2); LYMPHOCYTES % 15.4 % (18.0-39.1); MEAN CORPUSCULAR HEMOGLOBIN 31.2 pg (28-32); MEAN CORPUSCULAR HGB CONC 32.2 g/dL (31-35); MEAN CORPUSCULAR VOLUME 96.8 fL (81-99); MONOCYTES # (AUTO) 0.4 (0.2-0.8); MONOCYTES % 11.6 % (4.4-11.3); NEUTROPHILS # (AUTO) 2.1 (2.1-6.9); NEUTROPHILS % 58.1 % (38.7-80.0); RED BLOOD COUNT 2.53 x10e6/uL (4.3-5.7); RED CELL DISTRIBUTION WIDTH 19.3 % (11.7-14.4)
[2021-02-02] MEDS: Pantoprazole IV 40 MG in SODIUM CHLORIDE 0.9% 50ML 50 ML IV SCH ×5 (02:53→22:15)
[2021-02-02 03:08] LABS: PLATELET COUNT 40 x10e3/uL (140-360)
[2021-02-02] MEDS ORDERED: PHYTONADIONE 10 MG/ML AMP IV ONE (04:00)
[2021-02-02] MEDS ORDERED: PHYTONADIONE 10MG/ML 20 MG in SODIUM CHLORIDE 0.9% 50ML 50 ML SC ONE (04:30)
[2021-02-02] MEDS ORDERED: SODIUM CHLORIDE 0.9% 50ML 50 ML ONE (05:02)
[2021-02-02 05:43] LABS: ALBUMIN 1.8 g/dL (3.5-5.0); ALBUMIN/GLOBULIN RATIO 0.4 (0.8-2.0); CREATININE, SERUM 1.33 mg/dL (0.72-1.25)
[2021-02-02 06:00] LABS: CALCIUM 6.7 mg/dL (8.4-10.2)
[2021-02-02 06:01] LABS: BASOPHILS % 0.8 % (0.0-1.0); EOSINOPHILS # (AUTO) 0.5 (0.0-0.4); EOSINOPHILS % 14.2 % (0.0-6.0); HEMATOCRIT 24.5 % (38.2-49.6); HEMOGLOBIN 7.9 g/dL (14.0-18.0); LYMPHOCYTES # (AUTO) 0.7 (1.0-3.2); MEAN CORPUSCULAR HEMOGLOBIN 31.2 pg (28-32); MEAN CORPUSCULAR HGB CONC 32.2 g/dL (31-35); MEAN CORPUSCULAR VOLUME 96.8 fL (81-99); MONOCYTES # (AUTO) 0.3 (0.2-0.8); MONOCYTES % 9.6 % (4.4-11.3); NEUTROPHILS % 55.8 % (38.7-80.0); RED BLOOD COUNT 2.53 x10e6/uL (4.3-5.7); RED CELL DISTRIBUTION WIDTH 19.3 % (11.7-14.4)
[2021-02-02 06:09] LABS: PLATELET COUNT 40 x10e3/uL (140-360)
[2021-02-02] MEDS: METOCLOPRAMIDE HCL 10 MG/2ML VIAL IV SCH ×3 (06:10→22:46)
[2021-02-02 06:11] LABS: INR 1.43; PROTHROMBIN TIME 18.6 seconds (11.9-14.5)
[2021-02-02] MEDS ORDERED: POTASSIUM CHLORIDE 20MEQ/100ML 200 ML IV ONE (06:45)
[2021-02-02] MEDS ORDERED: POTASSIUM CHLORIDE 20 MEQ TAB CR PO ONE (07:15)
[2021-02-02] MEDS ORDERED: CALCIUM GLUCONATE 10% INJ 9.3 MEQ in SODIUM CHLORIDE 0.9% 100 ML 100 ML IV ONE (07:40)
[2021-02-02] MEDS: MULTIVITAMINS- 12 INJECTION 10 ML, FOLIC ACID MDV 1 MG, THIAMINE HCL INJ 100 MG in SODI... IV SCH ×2 (08:51→16:52)
[2021-02-02] MEDS ORDERED: BALSAM PERU/CASTOR OIL 60 GM OINT...G. TP SCH (09:00)
[2021-02-02] MEDS: LACTULOSE SYRUP 20 GM/30 ML UDC PO SCH ×2 (09:12→17:10)
[2021-02-02] MEDS: OCTREOTIDE ACETATE 500 MCG in SODIUM CHLORIDE 0.9% 250ML 249 ML IV SCH ×2 (09:12→16:52)
[2021-02-02] MEDS: MIDODRINE HCL 5 MG TABLET PO SCH ×3 (09:12→17:10)
[2021-02-02] MEDS: MUPIROCIN 2% OINT 22 GM TUBE TOP SCH (09:12)
[2021-02-02] MEDS: CEFTRIAXONE 2 GM in SODIUM CHLORIDE 0.9% 100 ML IV SCH (09:12)
[2021-02-02] MEDS: PROPRANOLOL HCL 10 MG TAB PO SCH ×2 (09:13→17:10)
[2021-02-03] VITALS (15 sets, daily range): BP systolic 101–118; BP diastolic 57–84
[2021-02-03] MEDS: LORAZEPAM INJ 2 MG/ML VIAL IV PRN ×2 (00:56→08:12)
[2021-02-03] MEDS ORDERED: PHYTONADIONE 10MG/ML 20 MG in SODIUM CHLORIDE 0.9% 100 ML IV ONE (02:30)
[2021-02-03] MEDS: Pantoprazole IV 40 MG in SODIUM CHLORIDE 0.9% 50ML 50 ML IV SCH ×5 (02:33→23:13)
[2021-02-03] MEDS: OCTREOTIDE ACETATE 500 MCG in SODIUM CHLORIDE 0.9% 250ML 249 ML IV SCH ×2 (02:33→11:30)
[2021-02-03] MEDS ORDERED: PHYTONADIONE 10MG/ML 2 ML ONE (02:35)
[2021-02-03] MEDS ORDERED: SODIUM CHLORIDE 0.9% 50ML 50 ML ONE (02:35)
[2021-02-03] MEDS: MULTIVITAMINS- 12 INJECTION 10 ML, FOLIC ACID MDV 1 MG, THIAMINE HCL INJ 100 MG in SODI... IV SCH ×6 (05:25→13:49)
[2021-02-03 05:26] LABS: BASOPHILS % 0.9 % (0.0-1.0); EOSINOPHILS # (AUTO) 0.5 (0.0-0.4); EOSINOPHILS % 14.5 % (0.0-6.0); HEMATOCRIT 24.7 % (38.2-49.6); HEMOGLOBIN 7.9 g/dL (14.0-18.0); LYMPHOCYTES # (AUTO) 0.5 (1.0-3.2); LYMPHOCYTES % 14.8 % (18.0-39.1); MEAN CORPUSCULAR HEMOGLOBIN 31.5 pg (28-32); MEAN CORPUSCULAR VOLUME 98.4 fL (81-99); MONOCYTES # (AUTO) 0.4 (0.2-0.8); MONOCYTES % 13.3 % (4.4-11.3); NEUTROPHILS # (AUTO) 1.9 (2.1-6.9); NEUTROPHILS % 56.2 % (38.7-80.0); RED BLOOD COUNT 2.51 x10e6/uL (4.3-5.7); RED CELL DISTRIBUTION WIDTH 19.8 % (11.7-14.4)
[2021-02-03 05:29] LABS: PLATELET COUNT 35 x10e3/uL (140-360)
[2021-02-03 05:33] LABS: INR 1.48; PROTHROMBIN TIME 19.1 seconds (11.9-14.5)
[2021-02-03 05:40] LABS: ALBUMIN 1.8 g/dL (3.5-5.0); ALBUMIN/GLOBULIN RATIO 0.4 (0.8-2.0); ANION GAP 9.6 mmol/L (8-16); CREATININE, SERUM 1.16 mg/dL (0.72-1.25); POTASSIUM 3.6 mmol/L (3.5-5.1)
[2021-02-03 06:05] LABS: CALCIUM 6.8 mg/dL (8.4-10.2)
[2021-02-03] MEDS: METOCLOPRAMIDE HCL 10 MG/2ML VIAL IV SCH ×3 (06:30→22:58)
[2021-02-03] MEDS: MIDODRINE HCL 5 MG TABLET PO SCH ×3 (08:41→16:10)
[2021-02-03] MEDS: PROPRANOLOL HCL 10 MG TAB PO SCH ×2 (09:00→17:00)
[2021-02-03] MEDS: LACTULOSE SYRUP 20 GM/30 ML UDC PO SCH ×2 (14:44→17:00)
[2021-02-03] MEDS ORDERED: CALCIUM GLUCONATE 10% INJ 9.3 MEQ in SODIUM CHLORIDE 0.9% 100 ML 100 ML IV ONE (15:30)
[2021-02-03] MEDS: CEFTRIAXONE 2 GM in SODIUM CHLORIDE 0.9% 100 ML IV SCH (15:30)
[2021-02-03] MEDS ORDERED: CEFTRIAXONE 2 GM VIAL ONE (15:36)
[2021-02-03] MEDS: CHLORDIAZEPOXIDE HCL 25 MG CAP PO SCH ×2 (16:51→21:00)
[2021-02-03] MEDS: MUPIROCIN 2% OINT 22 GM TUBE TOP SCH (18:44)
[2021-02-04] VITALS (8 sets, daily range): BP systolic 104–133; BP diastolic 65–92
[2021-02-04] MEDS: OCTREOTIDE ACETATE 500 MCG in SODIUM CHLORIDE 0.9% 250ML 249 ML IV SCH ×3 (03:26→21:22)
[2021-02-04] MEDS: Pantoprazole IV 40 MG in SODIUM CHLORIDE 0.9% 50ML 50 ML IV SCH ×4 (04:13→21:13)
[2021-02-04 06:17] LABS: BASOPHILS % 1.4 % (0.0-1.0); EOSINOPHILS # (AUTO) 0.4 (0.0-0.4); EOSINOPHILS % 12.7 % (0.0-6.0); LYMPHOCYTES # (AUTO) 0.6 (1.0-3.2); LYMPHOCYTES % 18.9 % (18.0-39.1); MEAN CORPUSCULAR HEMOGLOBIN 31.6 pg (28-32); MEAN CORPUSCULAR VOLUME 98.8 fL (81-99); MONOCYTES # (AUTO) 0.5 (0.2-0.8); MONOCYTES % 15.5 % (4.4-11.3); NEUTROPHILS # (AUTO) 1.5 (2.1-6.9); NEUTROPHILS % 51.2 % (38.7-80.0); RED BLOOD COUNT 2.53 x10e6/uL (4.3-5.7); RED CELL DISTRIBUTION WIDTH 20.2 % (11.7-14.4)
[2021-02-04 06:21] LABS: PLATELET COUNT 35 x10e3/uL (140-360)
[2021-02-04 06:28] LABS: INR 1.63; PROTHROMBIN TIME 20.6 seconds (11.9-14.5)
[2021-02-04] MEDS: METOCLOPRAMIDE HCL 10 MG/2ML VIAL IV SCH ×3 (06:30→22:50)
[2021-02-04 06:43] LABS: POTASSIUM 3.4 mmol/L (3.5-5.1)
[2021-02-04 06:46] LABS: CALCIUM 6.8 mg/dL (8.4-10.2)
[2021-02-04 07:12] LABS: ALBUMIN 1.7 g/dL (3.5-5.0); ALBUMIN/GLOBULIN RATIO 0.4 (0.8-2.0); ANION GAP 10.4 mmol/L (8-16); CREATININE, SERUM 0.89 mg/dL (0.72-1.25)
[2021-02-04] MEDS: MIDODRINE HCL 5 MG TABLET PO SCH ×3 (08:24→16:25)
[2021-02-04] MEDS: CEFTRIAXONE 2 GM in SODIUM CHLORIDE 0.9% 100 ML IV SCH (08:24)
[2021-02-04] MEDS: CHLORDIAZEPOXIDE HCL 25 MG CAP PO SCH ×2 (08:25→21:40)
[2021-02-04] MEDS: MULTIVITAMINS- 12 INJECTION 10 ML, FOLIC ACID MDV 1 MG, THIAMINE HCL INJ 100 MG in SODI... IV SCH ×2 (08:25→16:51)
[2021-02-04] MEDS: PROPRANOLOL HCL 10 MG TAB PO SCH ×2 (08:25→16:25)
[2021-02-04] MEDS: LACTULOSE SYRUP 20 GM/30 ML UDC PO SCH ×2 (08:25→16:25)
[2021-02-04] MEDS: BALSAM PERU/CASTOR OIL 60 GM OINT...G. TP SCH (08:25)
[2021-02-04] MEDS: MUPIROCIN 2% OINT 22 GM TUBE TOP SCH (08:25)
[2021-02-04] MEDS ORDERED: PHYTONADIONE 10 MG/ML AMP SQ ONE (08:45)
[2021-02-05] VITALS (9 sets, daily range): BP systolic 94–113; BP diastolic 56–86
[2021-02-05] MEDS: Pantoprazole IV 40 MG in SODIUM CHLORIDE 0.9% 50ML 50 ML IV SCH ×5 (01:51→21:27)
[2021-02-05] MEDS ORDERED: PHYTONADIONE 10 MG/ML AMP IV ONE (04:30)
[2021-02-05] MEDS ORDERED: SODIUM CHLORIDE 0.9% 100 ML ONE ×2 (04:58→05:00)
[2021-02-05] MEDS: MULTIVITAMINS- 12 INJECTION 10 ML, FOLIC ACID MDV 1 MG, THIAMINE HCL INJ 100 MG in SODI... IV SCH ×2 (05:20→14:13)
[2021-02-05] MEDS: METOCLOPRAMIDE HCL 10 MG/2ML VIAL IV SCH ×3 (06:30→22:00)
[2021-02-05 06:31] LABS: BASOPHILS % 1.1 % (0.0-1.0); EOSINOPHILS # (AUTO) 0.3 (0.0-0.4); EOSINOPHILS % 11.6 % (0.0-6.0); HEMATOCRIT 22.9 % (38.2-49.6); HEMOGLOBIN 7.3 g/dL (14.0-18.0); LYMPHOCYTES # (AUTO) 0.5 (1.0-3.2); LYMPHOCYTES % 18.1 % (18.0-39.1); MEAN CORPUSCULAR HEMOGLOBIN 31.9 pg (28-32); MEAN CORPUSCULAR HGB CONC 31.9 g/dL (31-35); MONOCYTES # (AUTO) 0.5 (0.2-0.8); MONOCYTES % 19.6 % (4.4-11.3); NEUTROPHILS # (AUTO) 1.4 (2.1-6.9); NEUTROPHILS % 48.9 % (38.7-80.0); RED BLOOD COUNT 2.29 x10e6/uL (4.3-5.7); RED CELL DISTRIBUTION WIDTH 21.1 % (11.7-14.4)
[2021-02-05 06:37] LABS: PLATELET COUNT 26 x10e3/uL (140-360)
[2021-02-05 06:42] LABS: INR 1.65; PROTHROMBIN TIME 20.8 seconds (11.9-14.5)
[2021-02-05 06:49] LABS: ALBUMIN 1.7 g/dL (3.5-5.0); ALBUMIN/GLOBULIN RATIO 0.4 (0.8-2.0); ANION GAP 10.4 mmol/L (8-16); CREATININE, SERUM 1.07 mg/dL (0.72-1.25); POTASSIUM 3.4 mmol/L (3.5-5.1)
[2021-02-05 06:57] LABS: CALCIUM 6.5 mg/dL (8.4-10.2)
[2021-02-05 08:05] LABS: EOSINOPHILS % (MANUAL) 17 % (0-7); LYMPHOCYTES % (MANUAL) 13 % (19-48); METAMYELOCYTES % (MANUAL) 1 % (0-0); MONOCYTES % (MANUAL) 12 % (3.4-9.0); NEUTROPHILS % (MANUAL) 56 % (40-74)
[2021-02-05 08:06] LABS: PLATELET ESTIMATE MARKEDLY DECREASED
[2021-02-05 08:07] LABS: PLATELET MORPHOLOGY COMMENT NORMAL; RBC MORPHOLOGY COMMENT NORMAL
[2021-02-05] MEDS ORDERED: LACTULOSE SYRUP 20 GM/30 ML UDC PO ONE (08:10)
[2021-02-05] MEDS: POTASSIUM CHLORIDE 20 MEQ TAB CR PO PRN (08:24)
[2021-02-05] MEDS: BALSAM PERU/CASTOR OIL 60 GM OINT...G. TP SCH (08:25)
[2021-02-05] MEDS: MUPIROCIN 2% OINT 22 GM TUBE TOP SCH (08:25)
[2021-02-05] MEDS: LACTULOSE SYRUP 20 GM/30 ML UDC PO SCH (08:26)
[2021-02-05] MEDS: MIDODRINE HCL 5 MG TABLET PO SCH ×3 (08:33→17:21)
[2021-02-05] MEDS: CEFTRIAXONE 2 GM in SODIUM CHLORIDE 0.9% 100 ML IV SCH (08:40)
[2021-02-05] MEDS: PROPRANOLOL HCL 10 MG TAB PO SCH ×2 (08:43→16:29)
[2021-02-05] MEDS: OCTREOTIDE ACETATE 500 MCG in SODIUM CHLORIDE 0.9% 250ML 249 ML IV SCH ×2 (10:09→21:27)
[2021-02-06] VITALS (11 sets, daily range): BP systolic 90–125; BP diastolic 60–75
[2021-02-06] MEDS: MULTIVITAMINS- 12 INJECTION 10 ML, FOLIC ACID MDV 1 MG, THIAMINE HCL INJ 100 MG in SODI... IV SCH ×3 (00:20→23:32)
[2021-02-06] MEDS: Pantoprazole IV 40 MG in SODIUM CHLORIDE 0.9% 50ML 50 ML IV SCH ×5 (00:21→23:32)
[2021-02-06] MEDS ORDERED: PHYTONADIONE 10 MG/ML AMP IV ONE (03:00)
[2021-02-06] MEDS ORDERED: SODIUM CHLORIDE 0.9% 50ML 50 ML ONE (03:37)
[2021-02-06 05:41] LABS: BASOPHILS % 0.8 % (0.0-1.0); EOSINOPHILS # (AUTO) 0.3 (0.0-0.4); EOSINOPHILS % 10.4 % (0.0-6.0); HEMATOCRIT 22.4 % (38.2-49.6); HEMOGLOBIN 7.1 g/dL (14.0-18.0); LYMPHOCYTES # (AUTO) 0.4 (1.0-3.2); LYMPHOCYTES % 15.2 % (18.0-39.1); MEAN CORPUSCULAR HEMOGLOBIN 31.6 pg (28-32); MEAN CORPUSCULAR HGB CONC 31.7 g/dL (31-35); MEAN CORPUSCULAR VOLUME 99.6 fL (81-99); MONOCYTES # (AUTO) 0.6 (0.2-0.8); NEUTROPHILS # (AUTO) 1.2 (2.1-6.9); NEUTROPHILS % 48.8 % (38.7-80.0); RED BLOOD COUNT 2.25 x10e6/uL (4.3-5.7); RED CELL DISTRIBUTION WIDTH 21.1 % (11.7-14.4)
[2021-02-06 05:48] LABS: PLATELET COUNT 22 x10e3/uL (140-360)
[2021-02-06] MEDS: OCTREOTIDE ACETATE 500 MCG in SODIUM CHLORIDE 0.9% 250ML 249 ML IV SCH ×2 (05:50→16:03)
[2021-02-06 05:53] LABS: INR 1.62; PROTHROMBIN TIME 20.5 seconds (11.9-14.5)
[2021-02-06 05:56] LABS: ANION GAP 10.1 mmol/L (8-16); CREATININE, SERUM 1.03 mg/dL (0.72-1.25); POTASSIUM 3.1 mmol/L (3.5-5.1)
[2021-02-06] MEDS: METOCLOPRAMIDE HCL 10 MG/2ML VIAL IV SCH ×3 (06:00→23:32)
[2021-02-06 06:03] LABS: CALCIUM 6.6 mg/dL (8.4-10.2)
[2021-02-06] MEDS ORDERED: SODIUM CHLORIDE 0.9% 250ML 250 ML IV ONE (08:15)
[2021-02-06] MEDS ORDERED: FUROSEMIDE INJ 10 MG/ML 2 ML VIAL IV PRN (08:15)
[2021-02-06] MEDS: PROPRANOLOL HCL 10 MG TAB PO SCH ×2 (08:42→16:04)
[2021-02-06] MEDS: CEFTRIAXONE 2 GM in SODIUM CHLORIDE 0.9% 100 ML IV SCH (08:42)
[2021-02-06] MEDS: MIDODRINE HCL 5 MG TABLET PO SCH ×3 (08:42→16:00)
[2021-02-06] MEDS: BALSAM PERU/CASTOR OIL 60 GM OINT...G. TP SCH (08:42)
[2021-02-06] MEDS: MUPIROCIN 2% OINT 22 GM TUBE TOP SCH (08:42)
[2021-02-06] MEDS: LACTULOSE SYRUP 20 GM/30 ML UDC PO SCH (08:42)
[2021-02-06] MEDS ORDERED: SODIUM CHLORIDE 0.9% 250ML 250 ML ONE ×2 (15:46→19:08)
[2021-02-07] VITALS (11 sets, daily range): BP systolic 90–117; BP diastolic 57–75
[2021-02-07] MEDS: Pantoprazole IV 40 MG in SODIUM CHLORIDE 0.9% 50ML 50 ML IV SCH ×5 (02:00→21:41)
[2021-02-07] MEDS: OCTREOTIDE ACETATE 500 MCG in SODIUM CHLORIDE 0.9% 250ML 249 ML IV SCH ×3 (04:54→22:15)
[2021-02-07 05:42] LABS: EOSINOPHILS # (AUTO) 0.2 (0.0-0.4); EOSINOPHILS % 8.1 % (0.0-6.0); HEMATOCRIT 22.8 % (38.2-49.6); HEMOGLOBIN 7.4 g/dL (14.0-18.0); LYMPHOCYTES # (AUTO) 0.5 (1.0-3.2); LYMPHOCYTES % 16.6 % (18.0-39.1); MEAN CORPUSCULAR HEMOGLOBIN 31.9 pg (28-32); MEAN CORPUSCULAR HGB CONC 32.5 g/dL (31-35); MEAN CORPUSCULAR VOLUME 98.3 fL (81-99); MONOCYTES # (AUTO) 0.6 (0.2-0.8); MONOCYTES % 20.7 % (4.4-11.3); NEUTROPHILS # (AUTO) 1.6 (2.1-6.9); NEUTROPHILS % 53.3 % (38.7-80.0); RED BLOOD COUNT 2.32 x10e6/uL (4.3-5.7); RED CELL DISTRIBUTION WIDTH 21.7 % (11.7-14.4)
[2021-02-07 05:54] LABS: INR 1.8; PROTHROMBIN TIME 22.3 seconds (11.9-14.5)
[2021-02-07 05:55] LABS: PLATELET COUNT 35 x10e3/uL (140-360)
[2021-02-07] MEDS: METOCLOPRAMIDE HCL 10 MG/2ML VIAL IV SCH ×3 (06:11→22:15)
[2021-02-07 06:53] LABS: ALBUMIN 1.6 g/dL (3.5-5.0); ALBUMIN/GLOBULIN RATIO 0.4 (0.8-2.0); CREATININE, SERUM 0.94 mg/dL (0.72-1.25)
[2021-02-07 07:00] LABS: CALCIUM 5.8 mg/dL (8.4-10.2)
[2021-02-07] MEDS: MIDODRINE HCL 5 MG TABLET PO SCH ×3 (07:29→16:41)
[2021-02-07] MEDS: MULTIVITAMINS- 12 INJECTION 10 ML, FOLIC ACID MDV 1 MG, THIAMINE HCL INJ 100 MG in SODI... IV SCH ×2 (07:45→16:44)
[2021-02-07] MEDS: PROPRANOLOL HCL 10 MG TAB PO SCH ×2 (08:37→16:42)
[2021-02-07] MEDS: CEFTRIAXONE 2 GM in SODIUM CHLORIDE 0.9% 100 ML IV SCH (08:37)
[2021-02-07] MEDS: BALSAM PERU/CASTOR OIL 60 GM OINT...G. TP SCH (08:38)
[2021-02-07] MEDS: MUPIROCIN 2% OINT 22 GM TUBE TOP SCH (08:38)
[2021-02-07] MEDS: LACTULOSE SYRUP 20 GM/30 ML UDC PO SCH (08:38)
[2021-02-07] MEDS ORDERED: POTASSIUM CHLORIDE 20 MEQ TAB CR PO NR (14:01)
[2021-02-07] MEDS ORDERED: CALCIUM GLUCONATE 10% INJ 13.95 MEQ in SODIUM CHLORIDE 0.9% 100 ML 100 ML IV ONE (14:15)
[2021-02-08] VITALS (13 sets, daily range): BP systolic 93–119; BP diastolic 56–107
[2021-02-08] MEDS ORDERED: PHYTONADIONE 1 MG/0.5 ML AMP IM ONE (01:00)
[2021-02-08] MEDS ORDERED: SODIUM CHLORIDE 0.9% 50ML 50 ML ONE (01:22)
[2021-02-08] MEDS ORDERED: PHYTONADIONE 10MG/ML 2 ML ONE (01:28)
[2021-02-08] MEDS: MULTIVITAMINS- 12 INJECTION 10 ML, FOLIC ACID MDV 1 MG, THIAMINE HCL INJ 100 MG in SODI... IV SCH ×2 (02:42→12:08)
[2021-02-08] MEDS: Pantoprazole IV 40 MG in SODIUM CHLORIDE 0.9% 50ML 50 ML IV SCH ×3 (03:29→12:08)
[2021-02-08] MEDS: METOCLOPRAMIDE HCL 10 MG/2ML VIAL IV SCH ×3 (05:54→22:35)
[2021-02-08 06:18] LABS: INR 1.84; PROTHROMBIN TIME 22.7 seconds (11.9-14.5)
[2021-02-08 06:28] LABS: ANION GAP 10.2 mmol/L (8-16); CREATININE, SERUM 0.87 mg/dL (0.72-1.25); POTASSIUM 3.2 mmol/L (3.5-5.1)
[2021-02-08 06:29] LABS: CALCIUM 6.9 mg/dL (8.4-10.2)
[2021-02-08 06:30] LABS: CALCIUM IONIZED 1.1 mmol/L (1.09-1.30)
[2021-02-08 07:19] LABS: BASOPHILS % 0.8 % (0.0-1.0); EOSINOPHILS # (AUTO) 0.3 (0.0-0.4); EOSINOPHILS % 7.2 % (0.0-6.0); HEMATOCRIT 26.2 % (38.2-49.6); HEMOGLOBIN 8.4 g/dL (14.0-18.0); LYMPHOCYTES # (AUTO) 0.6 (1.0-3.2); LYMPHOCYTES % 16.2 % (18.0-39.1); MEAN CORPUSCULAR HEMOGLOBIN 31.8 pg (28-32); MEAN CORPUSCULAR HGB CONC 32.1 g/dL (31-35); MEAN CORPUSCULAR VOLUME 99.2 fL (81-99); MONOCYTES # (AUTO) 0.7 (0.2-0.8); MONOCYTES % 18.2 % (4.4-11.3); NEUTROPHILS # (AUTO) 2.2 (2.1-6.9); NEUTROPHILS % 57.1 % (38.7-80.0); RED BLOOD COUNT 2.64 x10e6/uL (4.3-5.7); RED CELL DISTRIBUTION WIDTH 21.8 % (11.7-14.4)
[2021-02-08 07:20] LABS: PLATELET COUNT 36 x10e3/uL (140-360)
[2021-02-08] MEDS: POTASSIUM CHLORIDE 20 MEQ TAB CR PO PRN ×2 (08:00→08:06)
[2021-02-08] MEDS: MIDODRINE HCL 5 MG TABLET PO SCH ×3 (08:05→17:14)
[2021-02-08] MEDS: BALSAM PERU/CASTOR OIL 60 GM OINT...G. TP SCH (08:05)
[2021-02-08] MEDS: MUPIROCIN 2% OINT 22 GM TUBE TOP SCH (08:05)
[2021-02-08] MEDS: LACTULOSE SYRUP 20 GM/30 ML UDC PO SCH (08:05)
[2021-02-08] MEDS: CEFTRIAXONE 2 GM in SODIUM CHLORIDE 0.9% 100 ML IV SCH (08:05)
[2021-02-08] MEDS: OCTREOTIDE ACETATE 500 MCG in SODIUM CHLORIDE 0.9% 250ML 249 ML IV SCH (08:23)
[2021-02-08] MEDS: PROPRANOLOL HCL 10 MG TAB PO SCH ×2 (08:23→17:00)
[2021-02-08] MEDS: CALCIUM CARBONATE 500 MG CHEWABLE TABS PO SCH ×2 (14:43→17:15)
[2021-02-08] MEDS: TRAMADOL HCL 50 MG TAB PO PRN (14:43)
[2021-02-08] MEDS ORDERED: POTASSIUM CHLORIDE 10MEQ EA PO ONE (14:45)
[2021-02-08] MEDS: FUROSEMIDE INJ 100 MG in SODIUM CHLORIDE 0.9% 100 ML 90 ML IV SCH (15:44)
[2021-02-09] VITALS (14 sets, daily range): BP systolic 91–133; BP diastolic 50–74
[2021-02-09] MEDS: CALCIUM CARBONATE 500 MG CHEWABLE TABS PO SCH ×4 (00:47→21:00)
[2021-02-09] MEDS: FUROSEMIDE INJ 100 MG in SODIUM CHLORIDE 0.9% 100 ML 90 ML IV SCH ×2 (00:55→15:12)
[2021-02-09] MEDS ORDERED: MIDODRINE 2.5 MG TAB PO ONE (01:15)
[2021-02-09] MEDS ORDERED: MIDODRINE HCL 5 MG TABLET PO ONE (01:30)
[2021-02-09] MEDS ORDERED: PHYTONADIONE 10 MG/ML AMP IV ONE (02:00)
[2021-02-09] MEDS ORDERED: SODIUM CHLORIDE 0.9% 100 ML ONE (02:24)
[2021-02-09 06:01] LABS: HEMATOCRIT 25.8 % (38.2-49.6); HEMOGLOBIN 8.3 g/dL (14.0-18.0); MEAN CORPUSCULAR HEMOGLOBIN 31.2 pg (28-32); MEAN CORPUSCULAR HGB CONC 32.2 g/dL (31-35); RED BLOOD COUNT 2.66 x10e6/uL (4.3-5.7); RED CELL DISTRIBUTION WIDTH 21.2 % (11.7-14.4)
[2021-02-09 06:13] LABS: PLATELET COUNT 40 x10e3/uL (140-360)
[2021-02-09 06:18] LABS: ANION GAP 10.4 mmol/L (8-16); CREATININE, SERUM 1.08 mg/dL (0.72-1.25); POTASSIUM 3.4 mmol/L (3.5-5.1)
[2021-02-09 06:24] LABS: INR 1.62; PROTHROMBIN TIME 20.5 seconds (11.9-14.5)
[2021-02-09 06:26] LABS: CALCIUM 6.9 mg/dL (8.4-10.2)
[2021-02-09] MEDS: METOCLOPRAMIDE HCL 10 MG/2ML VIAL IV SCH ×3 (06:50→22:00)
[2021-02-09] MEDS: MIDODRINE HCL 5 MG TABLET PO SCH ×3 (06:50→19:36)
[2021-02-09 08:01] LABS: EOSINOPHILS % (MANUAL) 10 % (0-7); LYMPHOCYTES % (MANUAL) 7 % (19-48); MONOCYTES % (MANUAL) 9 % (3.4-9.0); NEUTROPHILS % (MANUAL) 74 % (40-74); PLATELET ESTIMATE MARKEDLY DECREASED; PLATELET MORPHOLOGY COMMENT NORMAL; RBC MORPHOLOGY COMMENT NORMAL
[2021-02-09 08:02] LABS: ANISOCYTOSIS SLIGHT
[2021-02-09] MEDS: BALSAM PERU/CASTOR OIL 60 GM OINT...G. TP SCH (08:33)
[2021-02-09] MEDS: FOLIC ACID 1 MG TAB PO SCH (08:33)
[2021-02-09] MEDS: CEFTRIAXONE 2 GM in SODIUM CHLORIDE 0.9% 100 ML IV SCH (08:33)
[2021-02-09] MEDS: THIAMINE HCL 100 MG TAB PO SCH (08:33)
[2021-02-09] MEDS: LACTULOSE SYRUP 20 GM/30 ML UDC PO SCH (08:33)
[2021-02-09] MEDS: PROPRANOLOL HCL 10 MG TAB PO SCH ×2 (08:51→15:32)
[2021-02-09] MEDS: SPIRONOLACTONE 25 MG TAB PO SCH (11:21)
[2021-02-09] MEDS: POTASSIUM CHLORIDE 20 MEQ TAB CR PO PRN (12:45)
[2021-02-10] VITALS: BP 99/62
[2021-02-10] MEDS: TRAMADOL HCL 50 MG TAB PO PRN ×3 (00:30→15:17)
[2021-02-10] MEDS ORDERED: PHYTONADIONE 10 MG/ML AMP IV ONE (01:45)
[2021-02-10] MEDS ORDERED: SODIUM CHLORIDE 0.9% 100 ML ONE (02:23)
[2021-02-10 04:00] VITALS: BP 118/70
[2021-02-10 05:00] LABS: BASOPHILS % 0.8 % (0.0-1.0); EOSINOPHILS # (AUTO) 0.3 (0.0-0.4); EOSINOPHILS % 8.3 % (0.0-6.0); HEMATOCRIT 23.5 % (38.2-49.6); HEMOGLOBIN 7.7 g/dL (14.0-18.0); LYMPHOCYTES # (AUTO) 0.7 (1.0-3.2); LYMPHOCYTES % 18.1 % (18.0-39.1); MEAN CORPUSCULAR HGB CONC 32.8 g/dL (31-35); MEAN CORPUSCULAR VOLUME 94.8 fL (81-99); MONOCYTES # (AUTO) 0.6 (0.2-0.8); MONOCYTES % 16.1 % (4.4-11.3); NEUTROPHILS # (AUTO) 2.2 (2.1-6.9); NEUTROPHILS % 56.2 % (38.7-80.0); RED BLOOD COUNT 2.48 x10e6/uL (4.3-5.7); RED CELL DISTRIBUTION WIDTH 20.6 % (11.7-14.4)
[2021-02-10 05:05] LABS: PLATELET COUNT 37 x10e3/uL (140-360)
[2021-02-10 05:19] LABS: ANION GAP 9.9 mmol/L (8-16); CALCIUM 7.1 mg/dL (8.4-10.2); CREATININE, SERUM 1.26 mg/dL (0.72-1.25)
[2021-02-10] MEDS: METOCLOPRAMIDE HCL 10 MG/2ML VIAL IV SCH ×3 (05:45→21:10)
[2021-02-10] MEDS: MIDODRINE HCL 5 MG TABLET PO SCH ×4 (05:45→17:16)
[2021-02-10 05:51] LABS: POTASSIUM 2.9 mmol/L (3.5-5.1)
[2021-02-10] MEDS ORDERED: POTASSIUM CHLORIDE 20MEQ/100ML 200 ML IV ONE (06:45)
[2021-02-10] MEDS ORDERED: POTASSIUM CHLORIDE 10MEQ EA PO ONE (06:45)
[2021-02-10 08:07] VITALS: BP 107/68
[2021-02-10] MEDS: SPIRONOLACTONE 25 MG TAB PO SCH (09:37)
[2021-02-10] MEDS: LACTULOSE SYRUP 20 GM/30 ML UDC PO SCH (09:37)
[2021-02-10] MEDS: THIAMINE HCL 100 MG TAB PO SCH (09:37)
[2021-02-10] MEDS: FUROSEMIDE INJ 100 MG in SODIUM CHLORIDE 0.9% 100 ML 90 ML IV SCH (09:37)
[2021-02-10] MEDS: BALSAM PERU/CASTOR OIL 60 GM OINT...G. TP SCH (09:37)
[2021-02-10] MEDS: FOLIC ACID 1 MG TAB PO SCH (09:37)
[2021-02-10] MEDS: PROPRANOLOL HCL 10 MG TAB PO SCH ×2 (09:38→17:16)
[2021-02-10 11:46] VITALS: BP 96/65
[2021-02-10] MEDS ORDERED: ALBUMIN 25% 12.5GM 0.25 GM/ML BTL IV SCH (15:00)
[2021-02-10] MEDS: POTASSIUM CHLORIDE 20 MEQ TAB CR PO SCH ×2 (15:17→21:10)
[2021-02-10] MEDS: ALBUMIN 25% 12.5GM 50ML 50 ML IV SCH ×2 (15:19→21:10)
[2021-02-10] MEDS ORDERED: SODIUM CHLORIDE 0.9% 250ML 250 ML ONE (15:47)
[2021-02-10 16:27] VITALS: BP 117/76
[2021-02-10 19:59] VITALS: BP 112/66
[2021-02-11] VITALS (9 sets, daily range): BP systolic 94–162; BP diastolic 54–67
[2021-02-11] MEDS ORDERED: PHYTONADIONE 10 MG/ML AMP IV ONE (00:45)
[2021-02-11] MEDS ORDERED: PHYTONADIONE 10MG/ML 20 MG in SODIUM CHLORIDE 0.9% 100 ML IV STA (00:52)
[2021-02-11] MEDS: ALBUMIN 25% 12.5GM 50ML 50 ML IV SCH ×4 (03:28→21:26)
[2021-02-11] MEDS: FUROSEMIDE INJ 100 MG in SODIUM CHLORIDE 0.9% 100 ML 90 ML IV SCH ×3 (03:28→22:24)
[2021-02-11 05:42] LABS: BASOPHILS % 0.5 % (0.0-1.0); EOSINOPHILS # (AUTO) 0.4 (0.0-0.4); EOSINOPHILS % 8.8 % (0.0-6.0); HEMATOCRIT 23.8 % (38.2-49.6); HEMOGLOBIN 7.8 g/dL (14.0-18.0); LYMPHOCYTES # (AUTO) 0.8 (1.0-3.2); LYMPHOCYTES % 18.7 % (18.0-39.1); MEAN CORPUSCULAR HGB CONC 32.8 g/dL (31-35); MEAN CORPUSCULAR VOLUME 94.4 fL (81-99); MONOCYTES # (AUTO) 0.6 (0.2-0.8); MONOCYTES % 15.2 % (4.4-11.3); NEUTROPHILS # (AUTO) 2.4 (2.1-6.9); NEUTROPHILS % 56.1 % (38.7-80.0); RED BLOOD COUNT 2.52 x10e6/uL (4.3-5.7); RED CELL DISTRIBUTION WIDTH 20.3 % (11.7-14.4)
[2021-02-11 05:48] LABS: PLATELET COUNT 40 x10e3/uL (140-360)
[2021-02-11 06:07] LABS: ALBUMIN 1.9 g/dL (3.5-5.0); ALBUMIN/GLOBULIN RATIO 0.5 (0.8-2.0); CREATININE, SERUM 1.36 mg/dL (0.72-1.25)
[2021-02-11 06:09] LABS: INR 1.91; PROTHROMBIN TIME 23.4 seconds (11.9-14.5)
[2021-02-11] MEDS: METOCLOPRAMIDE HCL 10 MG/2ML VIAL IV SCH ×3 (06:39→21:26)
[2021-02-11] MEDS: MIDODRINE HCL 5 MG TABLET PO SCH ×4 (06:40→18:05)
[2021-02-11] MEDS: FOLIC ACID 1 MG TAB PO SCH (09:17)
[2021-02-11] MEDS: SPIRONOLACTONE 25 MG TAB PO SCH (09:17)
[2021-02-11] MEDS: LACTULOSE SYRUP 20 GM/30 ML UDC PO SCH (09:18)
[2021-02-11] MEDS: PROPRANOLOL HCL 10 MG TAB PO SCH ×2 (09:18→17:00)
[2021-02-11] MEDS: BALSAM PERU/CASTOR OIL 60 GM OINT...G. TP SCH (09:18)
[2021-02-11] MEDS: POTASSIUM CHLORIDE 20 MEQ TAB CR PO SCH ×2 (09:18→21:26)
[2021-02-11] MEDS: THIAMINE HCL 100 MG TAB PO SCH (09:18)
[2021-02-11] MEDS: METOLAZONE 5 MG TAB PO SCH (14:50)
[2021-02-12] VITALS (8 sets, daily range): BP systolic 92–117; BP diastolic 51–62
[2021-02-12] MEDS: MIDODRINE HCL 5 MG TABLET PO SCH ×4 (01:09→17:12)
[2021-02-12] MEDS ORDERED: PHYTONADIONE 10MG/ML 20 MG in SODIUM CHLORIDE 0.9% 100 ML SC ONE (02:00)
[2021-02-12] MEDS ORDERED: PHYTONADIONE 10 MG/ML AMP IV ONE (02:00)
[2021-02-12] MEDS: ALBUMIN 25% 12.5GM 50ML 50 ML IV SCH ×2 (03:54→09:52)
[2021-02-12 06:03] LABS: BASOPHILS % 0.8 % (0.0-1.0); EOSINOPHILS # (AUTO) 0.3 (0.0-0.4); EOSINOPHILS % 7.9 % (0.0-6.0); LYMPHOCYTES # (AUTO) 0.8 (1.0-3.2); MEAN CORPUSCULAR HEMOGLOBIN 31.2 pg (28-32); MEAN CORPUSCULAR HGB CONC 32.9 g/dL (31-35); MONOCYTES # (AUTO) 0.5 (0.2-0.8); MONOCYTES % 13.6 % (4.4-11.3); NEUTROPHILS # (AUTO) 2.2 (2.1-6.9); NEUTROPHILS % 57.2 % (38.7-80.0); RED BLOOD COUNT 2.21 x10e6/uL (4.3-5.7)
[2021-02-12 06:08] LABS: PLATELET COUNT 39 x10e3/uL (140-360)
[2021-02-12 06:09] LABS: HEMOGLOBIN 6.9 g/dL (14.0-18.0)
[2021-02-12 06:17] LABS: ANION GAP 12.5 mmol/L (8-16); CALCIUM 7.9 mg/dL (8.4-10.2); CREATININE, SERUM 1.39 mg/dL (0.72-1.25); POTASSIUM 3.5 mmol/L (3.5-5.1)
[2021-02-12 06:21] LABS: INR 2.07; PROTHROMBIN TIME 24.9 seconds (11.9-14.5)
[2021-02-12] MEDS: METOCLOPRAMIDE HCL 10 MG/2ML VIAL IV SCH ×3 (06:30→22:27)
[2021-02-12] MEDS ORDERED: SODIUM CHLORIDE 0.9% 250ML 250 ML IV ONE (06:30)
[2021-02-12] MEDS: FOLIC ACID 1 MG TAB PO SCH (09:52)
[2021-02-12] MEDS: SPIRONOLACTONE 25 MG TAB PO SCH (09:52)
[2021-02-12] MEDS: PROPRANOLOL HCL 10 MG TAB PO SCH ×2 (09:52→17:12)
[2021-02-12] MEDS: BALSAM PERU/CASTOR OIL 60 GM OINT...G. TP SCH (10:02)
[2021-02-12] MEDS: LACTULOSE SYRUP 20 GM/30 ML UDC PO SCH (10:02)
[2021-02-12] MEDS: THIAMINE HCL 100 MG TAB PO SCH (10:02)
[2021-02-12] MEDS: METOLAZONE 5 MG TAB PO SCH (10:02)
[2021-02-12] MEDS ORDERED: SODIUM CHLORIDE 0.9% 250ML 250 ML ONE (10:21)
[2021-02-12] MEDS: FUROSEMIDE INJ 100 MG in SODIUM CHLORIDE 0.9% 100 ML 90 ML IV SCH ×4 (12:16→20:00)
[2021-02-12] MEDS: POTASSIUM CHLORIDE 20 MEQ TAB CR PO SCH (17:12)
[2021-02-13] VITALS: BP 88/53
[2021-02-13] MEDS: MIDODRINE HCL 5 MG TABLET PO SCH ×4 (00:49→16:30)
[2021-02-13] MEDS: FUROSEMIDE INJ 100 MG in SODIUM CHLORIDE 0.9% 100 ML 90 ML IV SCH ×5 (01:14→12:16)
[2021-02-13] MEDS: TRAMADOL HCL 50 MG TAB PO PRN ×2 (02:16→10:04)
[2021-02-13 04:00] VITALS: BP 111/64
[2021-02-13] MEDS: METOCLOPRAMIDE HCL 10 MG/2ML VIAL IV SCH ×2 (06:00→12:17)
[2021-02-13 06:01] LABS: BASOPHILS % 0.7 % (0.0-1.0); EOSINOPHILS # (AUTO) 0.3 (0.0-0.4); EOSINOPHILS % 6.7 % (0.0-6.0); HEMOGLOBIN 8.8 g/dL (14.0-18.0); LYMPHOCYTES # (AUTO) 0.7 (1.0-3.2); LYMPHOCYTES % 17.6 % (18.0-39.1); MEAN CORPUSCULAR HEMOGLOBIN 31.2 pg (28-32); MEAN CORPUSCULAR HGB CONC 33.8 g/dL (31-35); MEAN CORPUSCULAR VOLUME 92.2 fL (81-99); MONOCYTES # (AUTO) 0.6 (0.2-0.8); MONOCYTES % 14.7 % (4.4-11.3); NEUTROPHILS # (AUTO) 2.5 (2.1-6.9); NEUTROPHILS % 59.8 % (38.7-80.0); RED BLOOD COUNT 2.82 x10e6/uL (4.3-5.7)
[2021-02-13 06:11] LABS: PLATELET COUNT 43 x10e3/uL (140-360)
[2021-02-13 06:16] LABS: ANION GAP 14.5 mmol/L (8-16); CALCIUM 8.3 mg/dL (8.4-10.2); CREATININE, SERUM 1.55 mg/dL (0.72-1.25); POTASSIUM 3.5 mmol/L (3.5-5.1)
[2021-02-13 07:49] VITALS: BP 112/65
[2021-02-13 08:00] VITALS: BP 112/65
[2021-02-13] MEDS ORDERED: ONDANSETRON HCL 4 MG ORAL DISINTEGRATING TAB SL PRN (09:45)
[2021-02-13] MEDS: POTASSIUM CHLORIDE 20 MEQ TAB CR PO SCH (10:03)
[2021-02-13] MEDS: SPIRONOLACTONE 25 MG TAB PO SCH (10:03)
[2021-02-13] MEDS: PROPRANOLOL HCL 10 MG TAB PO SCH ×2 (10:03→16:30)
[2021-02-13] MEDS: THIAMINE HCL 100 MG TAB PO SCH (10:03)
[2021-02-13] MEDS: FOLIC ACID 1 MG TAB PO SCH (10:03)
[2021-02-13] MEDS: METOLAZONE 5 MG TAB PO SCH (10:04)
[2021-02-13] MEDS: BALSAM PERU/CASTOR OIL 60 GM OINT...G. TP SCH (10:28)
[2021-02-13] MEDS: LACTULOSE SYRUP 20 GM/30 ML UDC PO SCH (10:28)
[2021-02-13 12:01] VITALS: BP 110/65
[2021-02-13 15:58] VITALS: BP 100/49
== END 2021-02-13 18:03 | disposition left against medical advice (07) | DRG 432 ==
LOC: ER 21:29 → ERHOLD 01-31 00:17 → MED/SURG3 01-31 02:17 → IMCU 01-31 17:55 → MED/SURG2 02-09 16:18
PROVIDERS: ADMIT Internal Medicine; ATTEND Internal Medicine
PROC: 02HV33Z Insertion of Infusion Device into Superior Vena Cava, Percutaneous Approach (ICD-10-PCS; principal; 2021-01-31)
PROC: 30243N1 Transfusion of Nonautologous Red Blood Cells into Central Vein, Percutaneous Approach (ICD-10-PCS; 2021-01-31)
PROC: 30243R1 Transfusion of Nonautologous Platelets into Central Vein, Percutaneous Approach (ICD-10-PCS; 2021-01-31)
PROC: 30243L1 Transfusion of Nonautologous Fresh Plasma into Central Vein, Percutaneous Approach (ICD-10-PCS; 2021-01-31)
PROC: 30243K1 Transfusion of Nonautologous Frozen Plasma into Central Vein, Percutaneous Approach (ICD-10-PCS; 2021-01-31)
PROC: 02HV33Z Insertion of Infusion Device into Superior Vena Cava, Percutaneous Approach (ICD-10-PCS; 2021-02-03)
DX: K70.31 Alcoholic cirrhosis of liver with ascites (principal); K72.00 Acute and subacute hepatic failure without coma; K92.2 Gastrointestinal hemorrhage, unspecified; F10.231 Alcohol dependence with withdrawal delirium; F10.221 Alcohol dependence with intoxication delirium; D62 Acute posthemorrhagic anemia; N17.9 Acute kidney failure, unspecified; D68.4 Acquired coagulation factor deficiency; D61.818 Other pancytopenia; N39.0 Urinary tract infection, site not specified; Y90.7 Blood alcohol level of 200-239 mg/100 ml; D64.9 Anemia, unspecified; E83.51 Hypocalcemia; D69.59 Other secondary thrombocytopenia; W01.198A Fall on same level from slipping, tripping and stumbling with subsequent striking against other object, initial encounter; Y93.89 Activity, other specified; S80.812A Abrasion, left lower leg, initial encounter; S80.811A Abrasion, right lower leg, initial encounter; S30.811A Abrasion of abdominal wall, initial encounter; Z83.3 Family history of diabetes mellitus; Z82.49 Family history of ischemic heart disease and other diseases of the circulatory system; F17.210 Nicotine dependence, cigarettes, uncomplicated; E87.6 Hypokalemia; K72.90 Hepatic failure, unspecified without coma; B19.20 Unspecified viral hepatitis C without hepatic coma; Z91.19 Patient's noncompliance with other medical treatment and regimen; Z20.822 Contact with and (suspected) exposure to COVID-19; E87.70 Fluid overload, unspecified; Z87.442 Personal history of urinary calculi; N47.1 Phimosis; E66.9 Obesity, unspecified; Z68.30 Body mass index [BMI] 30.0-30.9, adult
CPT/HCPCS: 36415; 36569; 70450; 71045; 71260; 72125; 72128; 72131; 74174; 80048; 80053; 80307; 80320; 81001; 82140; 82550; 82553; 82607; 82728; 82746; 82747; 82948; 83010; 83540; 83615; 83690; 84466; 84484; 85007; 85025; 85027; 85045; 85610; 85730; 86850; 86900; 86920; 87521; 93005; 93306; 93970; 94799; 97139; 99251; 99283; 99284; J0610; J0696; J1200; J1940; J2060; J2353; J2405; J2765; J3411; J3430; J3480; J7030; J7050; P9016; P9017; P9034; Q9967; U0002

== ENCOUNTER 2021-02-23 17:24 | Inpatient (IN) | payer MEDICARE, OTHER ==
[~2021-02-23] VITALS: Ht 170.2 cm; Wt 96.2 kg
[2021-02-23] MEDS ORDERED: SODIUM CHLORIDE 0.9% 1000ML 1,000 ML IV SCH (17:45)
[2021-02-23] MEDS ORDERED: LACTULOSE SYRUP 20 GM/30 ML UDC PO PRN (17:45)
[2021-02-23 17:57] LABS: BASOPHILS % 1.1 % (0.0-1.0); EOSINOPHILS # (AUTO) 0.3 (0.0-0.4); EOSINOPHILS % 8.7 % (0.0-6.0); HEMOGLOBIN 7.8 g/dL (14.0-18.0); LYMPHOCYTES # (AUTO) 0.6 (1.0-3.2); LYMPHOCYTES % 16.8 % (18.0-39.1); MEAN CORPUSCULAR HEMOGLOBIN 32.8 pg (28-32); MEAN CORPUSCULAR HGB CONC 32.5 g/dL (31-35); MEAN CORPUSCULAR VOLUME 100.8 fL (81-99); MONOCYTES # (AUTO) 0.6 (0.2-0.8); MONOCYTES % 17.3 % (4.4-11.3); NEUTROPHILS % 55.5 % (38.7-80.0); RED BLOOD COUNT 2.38 x10e6/uL (4.3-5.7); RED CELL DISTRIBUTION WIDTH 24.4 % (11.7-14.4)
[2021-02-23 18:01] LABS: PLATELET COUNT 46 x10e3/uL (140-360)
[2021-02-23 18:16] LABS: ALBUMIN 2.2 g/dL (3.5-5.0); ALBUMIN/GLOBULIN RATIO 0.4 (0.8-2.0); ANION GAP 14.3 mmol/L (8-16); CALCIUM 7.5 mg/dL (8.4-10.2); CREATININE, SERUM 1.16 mg/dL (0.72-1.25); POTASSIUM 3.3 mmol/L (3.5-5.1)
[2021-02-23 18:19] LABS: CLARITY,URINE SL CLOUDY (CLEAR); COLOR,URINE AMBER (YELLOW); KETONES,URINE NEGATIVE (NEGATIVE); LEUKOCYTE ESTERASE ,URINE NEGATIVE (NEGATIVE); NITRITE,URINE NEGATIVE (NEGATIVE); PROTEIN,URINE DIPSTICK 2+ (NEGATIVE); URINE UROBILINOGEN >=8 mg/dL (0.2 - 1)
[2021-02-23 18:24] LABS: PHOSPHORUS 2.5 MG/DL (2.3-4.7)
[2021-02-23 18:30] LABS: RBC,URINE >50 /HPF (0-5)
[2021-02-23 18:31] LABS: BACTERIA,URINE MODERATE /HPF
[2021-02-23] MEDS ORDERED: SODIUM CHLORIDE 0.9% 50ML 0 ML ONE ×2 (18:33→20:03)
[2021-02-23] MEDS ORDERED: IOPAMIDOL 370 MG/ML 200 ML INFUS..BTL INJ ONE ×2 (18:33→20:03)
[2021-02-23 18:40] LABS: INR 1.31; PROTHROMBIN TIME 17.3 seconds (11.9-14.5)
[2021-02-23] MEDS: SODIUM CHLORIDE 0.9% 1000ML 1,000 ML IV SCH (19:45)
[2021-02-23] MEDS: CEFTRIAXONE 1 GM in SODIUM CHLORIDE 0.9% 50ML 50 ML IV SCH (19:45)
[2021-02-23] MEDS ORDERED: CEFTRIAXONE 1 GM VIAL IV SCH (19:45)
[2021-02-23] MEDS ORDERED: LORAZEPAM INJ 2 MG/ML VIAL IV NR (19:45)
[2021-02-23] MEDS ORDERED: MAGNESIUM SULFATE 2GM/50ML 25 ML IV ONE (20:00)
[2021-02-23 22:28] VITALS: BP 116/71
[2021-02-23 22:30] VITALS: BP 116/71
[2021-02-24] VITALS (7 sets, daily range): BP systolic 104–123; BP diastolic 66–81
[2021-02-24] MEDS: SODIUM CHLORIDE 0.9% 1000ML 1,000 ML IV SCH ×2 (04:10→14:52)
[2021-02-24 06:48] LABS: HEMOGLOBIN 7.5 g/dL (14.0-18.0); MEAN CORPUSCULAR HGB CONC 32.6 g/dL (31-35); MEAN CORPUSCULAR VOLUME 101.3 fL (81-99); RED BLOOD COUNT 2.27 x10e6/uL (4.3-5.7); RED CELL DISTRIBUTION WIDTH 25.8 % (11.7-14.4)
[2021-02-24 06:52] LABS: PLATELET COUNT 33 x10e3/uL (140-360)
[2021-02-24 07:01] LABS: ANION GAP 14.2 mmol/L (8-16); CALCIUM 7.4 mg/dL (8.4-10.2); CREATININE, SERUM 0.84 mg/dL (0.72-1.25); POTASSIUM 3.2 mmol/L (3.5-5.1)
[2021-02-24 08:45] LABS: ANISOCYTOSIS MODERATE; HYPOCHROMASIA SLIGHT; OVALOCYTES FEW; PLATELET ESTIMATE MARKEDLY DECREASED; PLATELET MORPHOLOGY COMMENT NORMAL; RBC MORPHOLOGY COMMENT ABNORMAL
[2021-02-24] MEDS ORDERED: LACTULOSE SYRUP 20 GM/30 ML UDC PO SCH (09:00)
[2021-02-24] MEDS: CEFTRIAXONE 1 GM in SODIUM CHLORIDE 0.9% 50ML 50 ML IV SCH (09:02)
[2021-02-24] MEDS: RIFAXIMIN 550 MG TABLET PO SCH ×2 (09:02→16:21)
[2021-02-24] MEDS: MULTIVITAMINS- 12 INJECTION 10 ML, FOLIC ACID MDV 1 MG, THIAMINE HCL INJ 100 MG in SODI... IV SCH ×2 (09:02→19:30)
[2021-02-24] MEDS ORDERED: SPIRONOLACTONE 25 MG TAB PO SCH (09:45)
[2021-02-24] MEDS ORDERED: [UNRECOGNIZED DRUG - OTHER] TOP (09:53)
[2021-02-24] MEDS ORDERED: XIFAXAN550 MG PO (09:53)
[2021-02-24] MEDS: SPIRONOLACTONE 25 MG TAB PO SCH ×2 (10:51→21:45)
[2021-02-24] MEDS: MIDODRINE HCL 5 MG TABLET PO SCH ×2 (11:27→16:20)
[2021-02-24] MEDS: THIAMINE HCL 100 MG TAB PO SCH (11:27)
[2021-02-24] MEDS: BALSAM PERU/CASTOR OIL 60 GM OINT...G. TP SCH (13:51)
[2021-02-24] MEDS: LACTULOSE SYRUP 20 GM/30 ML UDC PO SCH ×2 (15:07→21:45)
[2021-02-24] MEDS: PANTOPRAZOLE SOD 40 MG TABEC PO SCH (16:20)
[2021-02-24] MEDS: PROPRANOLOL HCL 10 MG TAB PO SCH (16:20)
[2021-02-24] MEDS: FUROSEMIDE 40 MG TAB PO SCH (16:21)
[2021-02-24] MEDS: MINERAL OIL/PETROLAT/GLYCERI 6OZ BTL TOP SCH (16:21)
[2021-02-25] VITALS: BP 98/57
[2021-02-25 04:00] VITALS: BP 110/72
[2021-02-25 06:19] LABS: BASOPHILS % 0.6 % (0.0-1.0); EOSINOPHILS # (AUTO) 0.4 (0.0-0.4); EOSINOPHILS % 12.6 % (0.0-6.0); HEMATOCRIT 21.4 % (38.2-49.6); LYMPHOCYTES # (AUTO) 0.6 (1.0-3.2); LYMPHOCYTES % 20.6 % (18.0-39.1); MEAN CORPUSCULAR HEMOGLOBIN 33.5 pg (28-32); MEAN CORPUSCULAR HGB CONC 32.7 g/dL (31-35); MEAN CORPUSCULAR VOLUME 102.4 fL (81-99); MONOCYTES # (AUTO) 0.4 (0.2-0.8); MONOCYTES % 13.2 % (4.4-11.3); NEUTROPHILS # (AUTO) 1.6 (2.1-6.9); NEUTROPHILS % 52.4 % (38.7-80.0); RED BLOOD COUNT 2.09 x10e6/uL (4.3-5.7); RED CELL DISTRIBUTION WIDTH 25.5 % (11.7-14.4)
[2021-02-25 06:36] LABS: PLATELET COUNT 32 x10e3/uL (140-360)
[2021-02-25 07:09] LABS: CALCIUM 7.1 mg/dL (8.4-10.2); CREATININE, SERUM 0.86 mg/dL (0.72-1.25)
[2021-02-25 07:10] LABS: ALBUMIN 1.9 g/dL (3.5-5.0); ALBUMIN/GLOBULIN RATIO 0.4 (0.8-2.0)
[2021-02-25] MEDS: PANTOPRAZOLE SOD 40 MG TABEC PO SCH (07:57)
[2021-02-25] MEDS: MIDODRINE HCL 5 MG TABLET PO SCH ×2 (07:57→11:25)
[2021-02-25] MEDS: SPIRONOLACTONE 25 MG TAB PO SCH (08:07)
[2021-02-25] MEDS: CEFTRIAXONE 1 GM in SODIUM CHLORIDE 0.9% 50ML 50 ML IV SCH (08:07)
[2021-02-25] MEDS: RIFAXIMIN 550 MG TABLET PO SCH (08:08)
[2021-02-25] MEDS: BALSAM PERU/CASTOR OIL 60 GM OINT...G. TP SCH (08:08)
[2021-02-25] MEDS: THIAMINE HCL 100 MG TAB PO SCH (08:08)
[2021-02-25] MEDS: PROPRANOLOL HCL 10 MG TAB PO SCH (08:08)
[2021-02-25] MEDS: FUROSEMIDE 40 MG TAB PO SCH (08:08)
[2021-02-25] MEDS: LACTULOSE SYRUP 20 GM/30 ML UDC PO SCH (08:08)
[2021-02-25] MEDS: MINERAL OIL/PETROLAT/GLYCERI 6OZ BTL TOP SCH (08:08)
[2021-02-25 08:13] VITALS: BP 102/45
[2021-02-25 08:52] VITALS: BP 102/45
[2021-02-25] MEDS: SODIUM CHLORIDE 0.9% 1000ML 1,000 ML IV SCH (11:25)
[2021-02-25 13:14] VITALS: BP 102/70
== END 2021-02-25 13:17 | disposition left against medical advice (07) | DRG 442 ==
LOC: ER 17:40 → ERHOLD 19:56 → MED/SURG3 21:46
PROVIDERS: ADMIT Internal Medicine; ATTEND Internal Medicine
DX: K72.90 Hepatic failure, unspecified without coma (principal); D61.818 Other pancytopenia; K76.6 Portal hypertension; K70.30 Alcoholic cirrhosis of liver without ascites; F10.10 Alcohol abuse, uncomplicated; B19.20 Unspecified viral hepatitis C without hepatic coma; D73.1 Hypersplenism; D50.0 Iron deficiency anemia secondary to blood loss (chronic); D69.6 Thrombocytopenia, unspecified; E88.09 Other disorders of plasma-protein metabolism, not elsewhere classified; E83.51 Hypocalcemia; R77.1 Abnormality of globulin; E83.42 Hypomagnesemia; S70.11XA Contusion of right thigh, initial encounter; Z20.822 Contact with and (suspected) exposure to COVID-19
CPT/HCPCS: 36415; 70450; 74177; 80048; 80053; 80320; 81001; 82140; 83605; 83735; 84100; 84484; 85007; 85025; 85027; 85610; 86850; 86900; 87040; 87086; 93005; 94799; 99251; 99285; J0696; J2060; J3411; J3475; J7030; Q9967; U0002

== ENCOUNTER 2021-03-21 17:07 | Emergency (ER) | payer OTHER ==
[~2021-03-21] VITALS: Ht 170.2 cm; Wt 96.2 kg
[~2021-03-21 17:07] MED LIST changes: +[UNRECOGNIZED DRUG - OTHER] TOP
[2021-03-21 17:46] LABS: EOSINOPHILS # (AUTO) 0.3 (0.0-0.4); EOSINOPHILS % 11.3 % (0.0-6.0); HEMATOCRIT 25.9 % (38.2-49.6); HEMOGLOBIN 8.2 g/dL (14.0-18.0); LYMPHOCYTES # (AUTO) 0.7 (1.0-3.2); LYMPHOCYTES % 21.5 % (18.0-39.1); MEAN CORPUSCULAR HEMOGLOBIN 34.6 pg (28-32); MEAN CORPUSCULAR HGB CONC 31.7 g/dL (31-35); MEAN CORPUSCULAR VOLUME 109.3 fL (81-99); MONOCYTES # (AUTO) 0.4 (0.2-0.8); MONOCYTES % 13.6 % (4.4-11.3); NEUTROPHILS # (AUTO) 1.6 (2.1-6.9); NEUTROPHILS % 51.9 % (38.7-80.0); RED BLOOD COUNT 2.37 x10e6/uL (4.3-5.7); RED CELL DISTRIBUTION WIDTH 18.7 % (11.7-14.4)
[2021-03-21 17:59] LABS: PLATELET COUNT 42 x10e3/uL (140-360)
[2021-03-21 18:04] LABS: ALBUMIN 2.1 g/dL (3.5-5.0); ALBUMIN/GLOBULIN RATIO 0.4 (0.8-2.0); ANION GAP 11.1 mmol/L (8-16); CALCIUM 8.2 mg/dL (8.4-10.2); CREATININE, SERUM 0.94 mg/dL (0.72-1.25); POTASSIUM 3.1 mmol/L (3.5-5.1)
== END 2021-03-21 18:55 | disposition home or self-care (01) ==
LOC: ER 17:21
DX: R41.0 Disorientation, unspecified (principal); K74.60 Unspecified cirrhosis of liver; D61.818 Other pancytopenia
CPT/HCPCS: 36415; 70450; 80053; 80320; 82140; 85025; 99283; U0002

== ENCOUNTER 2021-03-23 00:34 | Emergency (ER) | payer MEDICARE, OTHER ==
[~2021-03-23] VITALS: Ht 170.2 cm; Wt 96.2 kg
[2021-03-23 02:33] LABS: BASOPHILS % 0.6 % (0.0-1.0); EOSINOPHILS # (AUTO) 0.1 (0.0-0.4); EOSINOPHILS % 1.7 % (0.0-6.0); HEMATOCRIT 28.6 % (38.2-49.6); HEMOGLOBIN 8.9 g/dL (14.0-18.0); LYMPHOCYTES # (AUTO) 0.4 (1.0-3.2); LYMPHOCYTES % 10.2 % (18.0-39.1); MEAN CORPUSCULAR HEMOGLOBIN 34.8 pg (28-32); MEAN CORPUSCULAR HGB CONC 31.1 g/dL (31-35); MEAN CORPUSCULAR VOLUME 111.7 fL (81-99); MONOCYTES # (AUTO) 0.6 (0.2-0.8); MONOCYTES % 17.4 % (4.4-11.3); NEUTROPHILS # (AUTO) 2.4 (2.1-6.9); NEUTROPHILS % 69.5 % (38.7-80.0); RED BLOOD COUNT 2.56 x10e6/uL (4.3-5.7); RED CELL DISTRIBUTION WIDTH 18.6 % (11.7-14.4)
[2021-03-23 02:47] LABS: PLATELET COUNT 44 x10e3/uL (140-360)
[2021-03-23 02:53] LABS: ALBUMIN 2.1 g/dL (3.5-5.0); ALBUMIN/GLOBULIN RATIO 0.4 (0.8-2.0); CALCIUM 8.4 mg/dL (8.4-10.2); CREATININE, SERUM 1.23 mg/dL (0.72-1.25)
== END 2021-03-23 03:29 | disposition home or self-care (01) ==
LOC: ER 00:39
DX: K70.30 Alcoholic cirrhosis of liver without ascites (principal); R53.1 Weakness; W01.0XXA Fall on same level from slipping, tripping and stumbling without subsequent striking against object, initial encounter; Y93.01 Activity, walking, marching and hiking; Y92.89 Other specified places as the place of occurrence of the external cause
CPT/HCPCS: 36415; 80053; 80320; 82140; 85025; 99283

== ENCOUNTER 2021-04-08 14:00 | Inpatient (IN) | payer MEDICARE, OTHER ==
[~2021-04-08] VITALS: Ht 170.2 cm; Wt 69.5 kg
[2021-04-08] MEDS ORDERED: ALBUMIN 25% 25GM 100ML 0.25 GM/ML BTL IV ONE (14:15)
[2021-04-08] MEDS ORDERED: SODIUM CHLORIDE 0.9% 1000ML 1,000 ML IV SCH ×3 (14:15→16:15)
[2021-04-08] MEDS ORDERED: SODIUM CHLORIDE 0.9% 1000ML 1,000 ML ONE (14:20)
[2021-04-08 14:28] LABS: BASOPHILS % 0.2 % (0.0-1.0); EOSINOPHILS # (AUTO) 0.1 (0.0-0.4); HEMATOCRIT 23.7 % (38.2-49.6); LYMPHOCYTES # (AUTO) 0.5 (1.0-3.2); LYMPHOCYTES % 4.7 % (18.0-39.1); MEAN CORPUSCULAR HEMOGLOBIN 35.1 pg (28-32); MEAN CORPUSCULAR HGB CONC 33.8 g/dL (31-35); MEAN CORPUSCULAR VOLUME 103.9 fL (81-99); MONOCYTES # (AUTO) 0.5 (0.2-0.8); MONOCYTES % 5.4 % (4.4-11.3); NEUTROPHILS # (AUTO) 8.7 (2.1-6.9); RED BLOOD COUNT 2.28 x10e6/uL (4.3-5.7); RED CELL DISTRIBUTION WIDTH 17.4 % (11.7-14.4)
[2021-04-08] MEDS ORDERED: CEFEPIME 1 GM in SODIUM CHLORIDE 0.9% 50ML 50 ML IV SCH (14:30)
[2021-04-08] MEDS ORDERED: ALBUMIN 25% 12.5GM 50ML 100 ML IV ONE (14:30)
[2021-04-08 14:31] LABS: PLATELET COUNT 36 x10e3/uL (140-360)
[2021-04-08 14:48] LABS: ALBUMIN 1.4 g/dL (3.5-5.0); ALBUMIN/GLOBULIN RATIO 0.3 (0.8-2.0); ANION GAP 15.1 mmol/L (8-16); CREATININE, SERUM 2.21 mg/dL (0.72-1.25); POTASSIUM 3.1 mmol/L (3.5-5.1)
[2021-04-08 14:51] LABS: CALCIUM 6.7 mg/dL (8.4-10.2)
[2021-04-08 15:19] LABS: CLARITY,URINE SL CLOUDY (CLEAR); COLOR,URINE BROWN (YELLOW); KETONES,URINE TRACE (NEGATIVE); LEUKOCYTE ESTERASE ,URINE NEGATIVE (NEGATIVE); NITRITE,URINE NEGATIVE (NEGATIVE); PROTEIN,URINE DIPSTICK 1+ (NEGATIVE); URINE UROBILINOGEN 1 mg/dL (0.2 - 1)
[2021-04-08 15:43] LABS: AMORPHOUS SEDIMENT,URINE MODERATE (FEW); BACTERIA,URINE MODERATE /HPF
[2021-04-08] MEDS ORDERED: DEXAMETHASONE SOD PHOS 10 MG/1 ML VIAL IV ONE (16:00)
[2021-04-08] MEDS ORDERED: Vancomycin IV 1 GM in SODIUM CHLORIDE 0.9% 250ML 250 ML IV ONE (16:30)
[2021-04-08] MEDS ORDERED: LACTATED RINGER'S 1,000 ML INJ ONE (16:30)
[2021-04-08] MEDS: PIPERACILLIN/TAZOBACTAM 2.25 GM in SODIUM CHLORIDE 0.9% 50ML 50 ML IV SCH (16:42)
[2021-04-08 19:26] LABS: BAND NEUTROPHILS % (MANUAL) 4 %; EOSINOPHILS % (MANUAL) 2 % (0-7); LYMPHOCYTES % (MANUAL) 3 % (19-48); METAMYELOCYTES % (MANUAL) 1 % (0-0); MONOCYTES % (MANUAL) 7 % (3.4-9.0); NEUTROPHILS % (MANUAL) 83 % (40-74)
[2021-04-08 19:28] LABS: POLYCHROMASIA FEW; SCHISTOCYTES FEW
[2021-04-08 19:29] LABS: PLATELET ESTIMATE MARKEDLY DECREASED
[2021-04-08 19:30] LABS: PLATELET MORPHOLOGY COMMENT NORMAL
[2021-04-08 20:22] VITALS: BP 104/67
[2021-04-08 21:00] VITALS: BP 103/65
[2021-04-08 22:00] VITALS: BP 96/61
[2021-04-08] MEDS ORDERED: POTASSIUM CHLORIDE 20 MEQ TAB CR PO STA (22:47)
[2021-04-08 23:00] VITALS: BP 103/76
[2021-04-08 23:59] VITALS: BP 86/65
[2021-04-09] VITALS (25 sets, daily range): BP systolic 81–121; BP diastolic 43–88
[2021-04-09] MEDS: PIPERACILLIN/TAZOBACTAM 2.25 GM in SODIUM CHLORIDE 0.9% 50ML 50 ML IV SCH ×4 (00:13→23:58)
[2021-04-09 06:23] LABS: BASOPHILS % 0.2 % (0.0-1.0); HEMOGLOBIN 8.7 g/dL (14.0-18.0); LYMPHOCYTES # (AUTO) 0.4 (1.0-3.2); LYMPHOCYTES % 4.1 % (18.0-39.1); MEAN CORPUSCULAR HEMOGLOBIN 43.3 pg (28-32); MEAN CORPUSCULAR HGB CONC 42.9 g/dL (31-35); MONOCYTES # (AUTO) 0.2 (0.2-0.8); MONOCYTES % 2.4 % (4.4-11.3); NEUTROPHILS # (AUTO) 8.7 (2.1-6.9); NEUTROPHILS % 92.2 % (38.7-80.0); RED BLOOD COUNT 2.01 x10e6/uL (4.3-5.7)
[2021-04-09 06:50] LABS: PLATELET COUNT 32 x10e3/uL (140-360)
[2021-04-09 06:51] LABS: HEMATOCRIT 20.3 % (38.2-49.6)
[2021-04-09 06:59] LABS: ANION GAP 13.1 mmol/L (8-16); CREATININE, SERUM 1.88 mg/dL (0.72-1.25); POTASSIUM 3.1 mmol/L (3.5-5.1)
[2021-04-09 07:07] LABS: CALCIUM 6.4 mg/dL (8.4-10.2)
[2021-04-09 11:05] LABS: BAND NEUTROPHILS % (MANUAL) 1 %; LYMPHOCYTES % (MANUAL) 1 % (19-48); NEUTROPHILS % (MANUAL) 98 % (40-74)
[2021-04-09 11:08] LABS: PLATELET ESTIMATE MARKEDLY DECREASED; PLATELET MORPHOLOGY COMMENT NORMAL; POIKILOCYTOSIS SLIGHT; RBC MORPHOLOGY COMMENT ABNORMAL
[2021-04-09] MEDS: ALBUMIN 25% 25GM 100ML 100 ML IV SCH ×2 (11:49→17:30)
[2021-04-09] MEDS ORDERED: ALBUMIN 25% 25GM 100ML 0.25 GM/ML BTL IV SCH (12:00)
[2021-04-09] MEDS ORDERED: POTASSIUM CHLORIDE 20MEQ/100ML 100 ML IV ONE ×2 (12:00→16:00)
[2021-04-09 12:47] LABS: INR 2.44; PROTHROMBIN TIME 27.9 seconds (11.9-14.5)
[2021-04-09 12:48] LABS: PARTIAL THROMBOPLASTIN TIME 44.4 seconds (23.8-35.5)
[2021-04-09] MEDS ORDERED: FUROSEMIDE INJ 10 MG/ML 2 ML VIAL IV ONE (15:30)
[2021-04-09] MEDS ORDERED: PANTOPRAZOLE SOD 40 MG TABEC PO SCH (16:30)
[2021-04-09] MEDS: DEXAMETHASONE SOD PHOS 10 MG/1 ML VIAL IV SCH (17:29)
[2021-04-09] MEDS: LACTULOSE SYRUP 20 GM/30 ML UDC PO SCH (17:30)
[2021-04-09] MEDS: Pantoprazole IV 40 MG in SODIUM CHLORIDE 0.9% 50ML 50 ML IV SCH ×2 (19:30→23:00)
[2021-04-09] MEDS: OCTREOTIDE ACETATE 500 MCG in SODIUM CHLORIDE 0.9% 250ML 249 ML IV SCH (19:30)
[2021-04-09] MEDS ORDERED: SODIUM CHLORIDE 0.9% 250ML 250 ML ONE (20:19)
[2021-04-09] MEDS: CALCIUM CARBONATE 500 MG CHEWABLE TABS PO SCH (21:00)
[2021-04-09] MEDS: SODIUM BICARBONATE 650 MG TAB PO SCH (22:30)
[2021-04-10] VITALS (25 sets, daily range): BP systolic 89–110; BP diastolic 50–75
[2021-04-10] MEDS: Pantoprazole IV 40 MG in SODIUM CHLORIDE 0.9% 50ML 50 ML IV SCH ×4 (03:21→19:39)
[2021-04-10] MEDS: OCTREOTIDE ACETATE 500 MCG in SODIUM CHLORIDE 0.9% 250ML 249 ML IV SCH ×2 (07:15→15:31)
[2021-04-10 07:32] LABS: ALBUMIN 2.2 g/dL (3.5-5.0); ALBUMIN/GLOBULIN RATIO 0.5 (0.8-2.0); ANION GAP 17.8 mmol/L (8-16); CREATININE, SERUM 1.79 mg/dL (0.72-1.25); POTASSIUM 3.8 mmol/L (3.5-5.1)
[2021-04-10 07:35] LABS: CALCIUM 6.7 mg/dL (8.4-10.2)
[2021-04-10] MEDS: SPIRONOLACTONE 25 MG TAB PO SCH (08:21)
[2021-04-10] MEDS: CALCIUM CARBONATE 500 MG CHEWABLE TABS PO SCH ×3 (08:21→21:00)
[2021-04-10] MEDS: PIPERACILLIN/TAZOBACTAM 2.25 GM in SODIUM CHLORIDE 0.9% 50ML 50 ML IV SCH ×2 (08:21→17:47)
[2021-04-10] MEDS: SODIUM BICARBONATE 650 MG TAB PO SCH ×2 (08:21→17:47)
[2021-04-10] MEDS: LACTULOSE SYRUP 20 GM/30 ML UDC PO SCH ×2 (08:21→17:47)
[2021-04-10] MEDS: FUROSEMIDE INJ 10 MG/ML 2 ML VIAL IV SCH (08:21)
[2021-04-10 08:50] LABS: BASOPHILS % 0.1 % (0.0-1.0); HEMOGLOBIN 7.4 g/dL (14.0-18.0); LYMPHOCYTES # (AUTO) 0.4 (1.0-3.2); LYMPHOCYTES % 5.1 % (18.0-39.1); MEAN CORPUSCULAR HEMOGLOBIN 34.1 pg (28-32); MEAN CORPUSCULAR HGB CONC 33.3 g/dL (31-35); MEAN CORPUSCULAR VOLUME 102.3 fL (81-99); MONOCYTES # (AUTO) 0.2 (0.2-0.8); MONOCYTES % 3.3 % (4.4-11.3); NEUTROPHILS # (AUTO) 6.2 (2.1-6.9); NEUTROPHILS % 90.2 % (38.7-80.0); RED BLOOD COUNT 2.17 x10e6/uL (4.3-5.7); RED CELL DISTRIBUTION WIDTH 18.6 % (11.7-14.4)
[2021-04-10 08:54] LABS: HEMATOCRIT 22.2 % (38.2-49.6); PLATELET COUNT 72 x10e3/uL (140-360)
[2021-04-10] MEDS ORDERED: NON-FORMULARY MEDICATION (Spironolactone 50 MG) PO SCH (09:00)
[2021-04-10] MEDS ORDERED: CALCIUM GLUCONATE 10% INJ 9.3 MEQ in SODIUM CHLORIDE 0.9% 100 ML 100 ML IV ONE (12:00)
[2021-04-10] MEDS ORDERED: WATER STERILE 10 ML VIAL ONE (12:12)
[2021-04-10] MEDS ORDERED: ETOMIDATE 2 MG/ML 10 ML INJ IV ONE (12:12)
[2021-04-10] MEDS: MIDODRINE 2.5 MG TAB PO SCH ×2 (12:29→17:46)
[2021-04-10] MEDS ORDERED: DEXMEDETOMIDINE 400MCG/NS100ML 100 ML IV PRN (15:30)
[2021-04-10] MEDS: DEXAMETHASONE SOD PHOS 10 MG/1 ML VIAL IV SCH (17:47)
[2021-04-11] VITALS (30 sets, daily range): BP systolic 97–162; BP diastolic 55–81
[2021-04-11] MEDS: Pantoprazole IV 40 MG in SODIUM CHLORIDE 0.9% 50ML 50 ML IV SCH ×4 (00:45→15:02)
[2021-04-11] MEDS: PIPERACILLIN/TAZOBACTAM 2.25 GM in SODIUM CHLORIDE 0.9% 50ML 50 ML IV SCH ×3 (00:45→16:36)
[2021-04-11] MEDS: OCTREOTIDE ACETATE 500 MCG in SODIUM CHLORIDE 0.9% 250ML 249 ML IV SCH ×2 (01:35→12:11)
[2021-04-11] MEDS ORDERED: FENTANYL 2000MCG/NS 250 250 ML ONE (05:55)
[2021-04-11] MEDS ORDERED: VECURONIUM BROMIDE FOR INJ 20 MG VIAL ONE (05:55)
[2021-04-11] MEDS ORDERED: MIDAZOLAM HCL 5MG/ML 10ML VIAL 100 ML IV ONE (05:57)
[2021-04-11] MEDS ORDERED: ROCURONIUM 1250MG/NS 250 250 ML ONE (05:58)
[2021-04-11] MEDS: FENTANYL 2000MCG/NS 250 250 ML IV SCH (06:00)
[2021-04-11] MEDS ORDERED: SODIUM CHLORIDE 0.9% 1000ML 1,000 ML ONE (06:03)
[2021-04-11] MEDS ORDERED: NOREPINEPHRINE 8 MG/D5W 250 ML 250 ML ONE (06:04)
[2021-04-11 06:07] LABS: BASOPHILS % 0.2 % (0.0-1.0); HEMOGLOBIN 8.7 g/dL (14.0-18.0); LYMPHOCYTES % 19.4 % (18.0-39.1); MEAN CORPUSCULAR HEMOGLOBIN 46.5 pg (28-32); MEAN CORPUSCULAR HGB CONC 42.2 g/dL (31-35); MEAN CORPUSCULAR VOLUME 110.2 fL (81-99); MONOCYTES # (AUTO) 0.2 (0.2-0.8); MONOCYTES % 3.2 % (4.4-11.3); NEUTROPHILS # (AUTO) 4.1 (2.1-6.9); NEUTROPHILS % 76.1 % (38.7-80.0); RED BLOOD COUNT 1.87 x10e6/uL (4.3-5.7); RED CELL DISTRIBUTION WIDTH 19.1 % (11.7-14.4)
[2021-04-11 06:22] LABS: ALBUMIN/GLOBULIN RATIO 0.5 (0.8-2.0); ANION GAP 16.1 mmol/L (8-16); CREATININE, SERUM 1.55 mg/dL (0.72-1.25); POTASSIUM 4.1 mmol/L (3.5-5.1)
[2021-04-11 06:31] LABS: PLATELET COUNT 38 x10e3/uL (140-360)
[2021-04-11 06:32] LABS: HEMATOCRIT 20.6 % (38.2-49.6)
[2021-04-11] MEDS: CALCIUM CARBONATE 500 MG CHEWABLE TABS PO SCH ×3 (07:43→21:06)
[2021-04-11] MEDS: LACTULOSE SYRUP 20 GM/30 ML UDC PO SCH ×2 (07:43→16:37)
[2021-04-11] MEDS: SODIUM BICARBONATE 650 MG TAB PO SCH ×2 (07:43→16:37)
[2021-04-11] MEDS: SPIRONOLACTONE 25 MG TAB PO SCH (07:43)
[2021-04-11] MEDS: MIDODRINE 2.5 MG TAB PO SCH ×3 (07:44→16:36)
[2021-04-11 07:51] LABS: LYMPHOCYTES % (MANUAL) 11 % (19-48); MONOCYTES % (MANUAL) 8 % (3.4-9.0); NEUTROPHILS % (MANUAL) 81 % (40-74)
[2021-04-11 07:52] LABS: POLYCHROMASIA FEW
[2021-04-11 07:53] LABS: ANISOCYTOSIS SLIGHT; PLATELET ESTIMATE MARKEDLY DECREASED
[2021-04-11 07:54] LABS: PLATELET MORPHOLOGY COMMENT NORMAL; SCHISTOCYTES FEW
[2021-04-11] MEDS: FUROSEMIDE INJ 10 MG/ML 2 ML VIAL IV SCH ×3 (08:39→21:06)
[2021-04-11] MEDS: ALBUMIN 25% 25GM 100ML 0.25 GM/ML BTL IV SCH ×2 (08:39→12:13)
[2021-04-11 09:23] LABS: ABG HCO3 17 mmol/L (22-26); ABG PCO2 44 mmHg (35-45); ABG PO2 76 mmHg (80-105); ABG TCO2 19
[2021-04-11 09:27] LABS: INR 4.81; PARTIAL THROMBOPLASTIN TIME 45.6 seconds (23.8-35.5); PROTHROMBIN TIME 47.4 seconds (11.9-14.5)
[2021-04-11] MEDS ORDERED: ROCURONIUM 1250MG/NS 250 250 ML IV PRN (10:15)
[2021-04-11] MEDS ORDERED: PHYTONADIONE 10 MG/ML AMP SQ ONE (10:30)
[2021-04-11] MEDS ORDERED: Vancomycin IV 1 GM in SODIUM CHLORIDE 0.9% 250ML 250 ML IV ONE (14:45)
[2021-04-11] MEDS ORDERED: SODIUM CHLORIDE 0.9% 250ML 250 ML ONE (15:18)
[2021-04-11] MEDS: DEXAMETHASONE SOD PHOS 10 MG/1 ML VIAL IV SCH (16:36)
[2021-04-11] MEDS: MIDAZOLAM HCL 5MG/ML 10ML VIAL 100 ML IV PRN (17:35)
[2021-04-12] VITALS (35 sets, daily range): BP systolic 99–136; BP diastolic 57–84
[2021-04-12] MEDS: PIPERACILLIN/TAZOBACTAM 2.25 GM in SODIUM CHLORIDE 0.9% 50ML 50 ML IV SCH ×3 (00:32→17:17)
[2021-04-12] MEDS: FENTANYL 2000MCG/NS 250 250 ML IV SCH (00:33)
[2021-04-12] MEDS: MIDAZOLAM HCL 5MG/ML 10ML VIAL 100 ML IV PRN (06:07)
[2021-04-12 06:12] LABS: BASOPHILS % 0.2 % (0.0-1.0); HEMOGLOBIN 7.1 g/dL (14.0-18.0); LYMPHOCYTES # (AUTO) 0.3 (1.0-3.2); LYMPHOCYTES % 4.1 % (18.0-39.1); MEAN CORPUSCULAR HEMOGLOBIN 46.7 pg (28-32); MEAN CORPUSCULAR HGB CONC 44.7 g/dL (31-35); MEAN CORPUSCULAR VOLUME 104.6 fL (81-99); MONOCYTES # (AUTO) 0.2 (0.2-0.8); MONOCYTES % 2.9 % (4.4-11.3); NEUTROPHILS # (AUTO) 5.7 (2.1-6.9); NEUTROPHILS % 91.5 % (38.7-80.0); RED BLOOD COUNT 1.52 x10e6/uL (4.3-5.7); RED CELL DISTRIBUTION WIDTH 18.9 % (11.7-14.4)
[2021-04-12 06:20] LABS: HEMATOCRIT 15.9 % (38.2-49.6); PLATELET COUNT 24 x10e3/uL (140-360)
[2021-04-12 06:27] LABS: INR 3.72; PROTHROMBIN TIME 38.8 seconds (11.9-14.5)
[2021-04-12 06:28] LABS: PARTIAL THROMBOPLASTIN TIME 47.1 seconds (23.8-35.5)
[2021-04-12 06:55] LABS: ALBUMIN 2.3 g/dL (3.5-5.0); ALBUMIN/GLOBULIN RATIO 0.7 (0.8-2.0); ANION GAP 15.1 mmol/L (8-16); CREATININE, SERUM 1.52 mg/dL (0.72-1.25); POTASSIUM 3.1 mmol/L (3.5-5.1)
[2021-04-12] MEDS ORDERED: ACETAMINOPHEN 325 MG TAB PO STA (07:59)
[2021-04-12] MEDS ORDERED: POTASSIUM CHLORIDE 20MEQ/100ML 200 ML IV ONE (08:00)
[2021-04-12 08:12] LABS: ABG HCO3 19 mmol/L (22-26); ABG PCO2 31 mmHg (35-45); ABG PO2 198 mmHg (80-105); ABG TCO2 20
[2021-04-12] MEDS ORDERED: SODIUM CHLORIDE 0.9% 250ML 250 ML IV ONE (08:30)
[2021-04-12] MEDS: FUROSEMIDE INJ 10 MG/ML 2 ML VIAL IV SCH ×3 (10:48→21:30)
[2021-04-12] MEDS: MIDODRINE 2.5 MG TAB PO SCH ×3 (10:48→15:22)
[2021-04-12] MEDS: SODIUM BICARBONATE 650 MG TAB PO SCH ×2 (10:49→17:17)
[2021-04-12] MEDS: LACTULOSE SYRUP 20 GM/30 ML UDC PO SCH ×2 (10:49→17:17)
[2021-04-12] MEDS: SPIRONOLACTONE 25 MG TAB PO SCH (10:49)
[2021-04-12] MEDS: CALCIUM CARBONATE 500 MG CHEWABLE TABS PO SCH ×3 (10:49→21:30)
[2021-04-12] MEDS ORDERED: ACETAMINOPHEN 325 MG TAB ONE (11:02)
[2021-04-12] MEDS: PROPOFOL IV EMULSION 10MG/ML 100 ML IV SCH (11:15)
[2021-04-12] MEDS ORDERED: PROPOFOL IV EMULSION 10MG/ML 100 ML IV PRN (11:15)
[2021-04-12 11:23] LABS: ABG PCO2 32 mmHg (35-45); ABG PH 7.41 (7.35-7.45)
[2021-04-12 11:24] LABS: ABG HCO3 20 mmol/L (22-26); ABG PO2 102 mmHg (80-105); ABG TCO2 21
[2021-04-12] MEDS ORDERED: CALCIUM GLUCONATE 10% INJ 4.65 MEQ in SODIUM CHLORIDE 0.9% 50ML 50 ML IV ONE (15:00)
[2021-04-12] MEDS: DEXAMETHASONE SOD PHOS 10 MG/1 ML VIAL IV SCH (17:17)
[2021-04-12] MEDS: NOREPINEPHRINE 8 MG/D5W 250 ML 250 ML IV SCH (19:15)
[2021-04-13] VITALS (29 sets, daily range): BP systolic 101–121; BP diastolic 62–71
[2021-04-13] MEDS: PIPERACILLIN/TAZOBACTAM 2.25 GM in SODIUM CHLORIDE 0.9% 50ML 50 ML IV SCH ×3 (01:08→16:27)
[2021-04-13] MEDS: FENTANYL 2000MCG/NS 250 250 ML IV SCH (03:25)
[2021-04-13 06:13] LABS: BASOPHILS % 0.2 % (0.0-1.0); HEMOGLOBIN 8.3 g/dL (14.0-18.0); LYMPHOCYTES # (AUTO) 0.2 (1.0-3.2); LYMPHOCYTES % 3.7 % (18.0-39.1); MEAN CORPUSCULAR HGB CONC 48.3 g/dL (31-35); MEAN CORPUSCULAR VOLUME 103.6 fL (81-99); MONOCYTES # (AUTO) 0.2 (0.2-0.8); MONOCYTES % 2.8 % (4.4-11.3); NEUTROPHILS # (AUTO) 5.3 (2.1-6.9); NEUTROPHILS % 92.3 % (38.7-80.0); RED BLOOD COUNT 1.66 x10e6/uL (4.3-5.7); RED CELL DISTRIBUTION WIDTH 19.2 % (11.7-14.4)
[2021-04-13 06:39] LABS: HEMATOCRIT 17.2 % (38.2-49.6); PLATELET COUNT 23 x10e3/uL (140-360)
[2021-04-13 06:45] LABS: ALBUMIN/GLOBULIN RATIO 0.5 (0.8-2.0); CREATININE, SERUM 1.64 mg/dL (0.72-1.25); POTASSIUM 3.3 mmol/L (3.5-5.1)
[2021-04-13 06:48] LABS: INR 3.43; PROTHROMBIN TIME 36.4 seconds (11.9-14.5)
[2021-04-13 07:20] LABS: ANION GAP 13.3 mmol/L (8-16)
[2021-04-13] MEDS ORDERED: ALBUMIN 25% 25GM 100ML 0.25 GM/ML BTL IV SCH (08:30)
[2021-04-13 08:52] LABS: ABG HCO3 24 mmol/L (22-26); ABG PCO2 37 mmHg (35-45); ABG PH 7.41 (7.35-7.45); ABG PO2 76 mmHg (80-105); ABG TCO2 25
[2021-04-13] MEDS: FUROSEMIDE INJ 10 MG/ML 2 ML VIAL IV SCH ×2 (09:09→16:27)
[2021-04-13] MEDS: SPIRONOLACTONE 25 MG TAB PO SCH (09:09)
[2021-04-13] MEDS: ALBUMIN 25% 25GM 100ML 100 ML IV SCH ×2 (09:09→15:20)
[2021-04-13] MEDS: SODIUM BICARBONATE 650 MG TAB PO SCH (09:09)
[2021-04-13] MEDS: CALCIUM CARBONATE 500 MG CHEWABLE TABS PO SCH ×3 (09:09→16:27)
[2021-04-13] MEDS: LACTULOSE SYRUP 20 GM/30 ML UDC PO SCH ×2 (09:09→16:28)
[2021-04-13] MEDS: MIDODRINE 2.5 MG TAB PO SCH ×3 (09:09→16:27)
[2021-04-13] MEDS: PROPOFOL IV EMULSION 10MG/ML 100 ML IV SCH (09:10)
[2021-04-13 10:48] LABS: EOSINOPHILS % (MANUAL) 1 % (0-7); LYMPHOCYTES % (MANUAL) 2 % (19-48); MONOCYTES % (MANUAL) 3 % (3.4-9.0); NEUTROPHILS % (MANUAL) 94 % (40-74)
[2021-04-13 10:49] LABS: ANISOCYTOSIS MODERATE; HYPOCHROMASIA MODERATE; PLATELET ESTIMATE MARKEDLY DECREASED; PLATELET MORPHOLOGY COMMENT NORMAL; RBC MORPHOLOGY COMMENT ABNORMAL
[2021-04-13] MEDS ORDERED: POTASSIUM CHLORIDE 20 MEQ TAB CR PO ONE (11:45)
[2021-04-13] MEDS ORDERED: ATROPINE SULFATE 1 MG/ML VIAL IV PRN (15:30)
[2021-04-13] MEDS: DEXAMETHASONE SOD PHOS 10 MG/1 ML VIAL IV SCH (16:27)
[2021-04-13] MEDS: NOREPINEPHRINE 8 MG/D5W 250 ML 250 ML IV SCH (19:15)
[2021-04-14] VITALS (34 sets, daily range): BP systolic 104–147; BP diastolic 58–93
[2021-04-14] MEDS: PIPERACILLIN/TAZOBACTAM 2.25 GM in SODIUM CHLORIDE 0.9% 50ML 50 ML IV SCH ×3 (01:00→16:05)
[2021-04-14 06:13] LABS: BASOPHILS % 0.2 % (0.0-1.0); HEMATOCRIT 18.9 % (38.2-49.6); LYMPHOCYTES # (AUTO) 0.2 (1.0-3.2); LYMPHOCYTES % 3.4 % (18.0-39.1); MEAN CORPUSCULAR HEMOGLOBIN 45.5 pg (28-32); MEAN CORPUSCULAR HGB CONC 42.3 g/dL (31-35); MEAN CORPUSCULAR VOLUME 107.4 fL (81-99); MONOCYTES # (AUTO) 0.2 (0.2-0.8); NEUTROPHILS # (AUTO) 5.8 (2.1-6.9); NEUTROPHILS % 92.4 % (38.7-80.0); RED BLOOD COUNT 1.76 x10e6/uL (4.3-5.7); RED CELL DISTRIBUTION WIDTH 18.7 % (11.7-14.4)
[2021-04-14 06:33] LABS: ALBUMIN 2.9 g/dL (3.5-5.0); ALBUMIN/GLOBULIN RATIO 0.9 (0.8-2.0); ANION GAP 12.5 mmol/L (8-16); CALCIUM 7.4 mg/dL (8.4-10.2); CREATININE, SERUM 1.47 mg/dL (0.72-1.25); POTASSIUM 3.5 mmol/L (3.5-5.1)
[2021-04-14 06:34] LABS: PLATELET COUNT 17 x10e3/uL (140-360)
[2021-04-14] MEDS: MIDODRINE 2.5 MG TAB PO SCH ×3 (08:17→15:55)
[2021-04-14] MEDS: SPIRONOLACTONE 25 MG TAB PO SCH (08:49)
[2021-04-14] MEDS: POTASSIUM CHLORIDE 20 MEQ TAB CR PO SCH (08:49)
[2021-04-14] MEDS: CALCIUM CARBONATE 500 MG CHEWABLE TABS PO SCH ×3 (08:49→20:04)
[2021-04-14] MEDS: LACTULOSE SYRUP 20 GM/30 ML UDC PO SCH ×2 (08:49→16:05)
[2021-04-14] MEDS: FUROSEMIDE INJ 10 MG/ML 4 ML VIAL IV SCH ×2 (09:00→16:05)
[2021-04-14 09:16] LABS: ABG PCO2 52 mmHg (35-45); ABG PH 7.33 (7.35-7.45); ABG PO2 82 mmHg (80-105)
[2021-04-14 09:17] LABS: ABG HCO3 27 mmol/L (22-26); ABG TCO2 29
[2021-04-14 09:26] LABS: LYMPHOCYTES % (MANUAL) 3 % (19-48); MONOCYTES % (MANUAL) 2 % (3.4-9.0); NEUTROPHILS % (MANUAL) 95 % (40-74)
[2021-04-14 09:27] LABS: ANISOCYTOSIS MODERATE; HYPOCHROMASIA SLIGHT; PLATELET ESTIMATE MARKEDLY DECREASED; PLATELET MORPHOLOGY COMMENT NORMAL; RBC MORPHOLOGY COMMENT ABNORMAL
[2021-04-14] MEDS ORDERED: FUROSEMIDE INJ 10 MG/ML 4 ML VIAL IV ONE (10:00)
[2021-04-14] MEDS: FENTANYL 2000MCG/NS 250 250 ML IV SCH (10:15)
[2021-04-14] MEDS ORDERED: SODIUM CHLORIDE 0.9% 250ML 250 ML ONE (10:57)
[2021-04-14] MEDS: PROPOFOL IV EMULSION 10MG/ML 100 ML IV SCH (11:15)
[2021-04-14] MEDS: DEXAMETHASONE SOD PHOS 10 MG/1 ML VIAL IV SCH (16:05)
[2021-04-14] MEDS: NOREPINEPHRINE 8 MG/D5W 250 ML 250 ML IV SCH (19:15)
[2021-04-15] VITALS (50 sets, daily range): BP systolic 103–140; BP diastolic 54–83
[2021-04-15] MEDS: PIPERACILLIN/TAZOBACTAM 2.25 GM in SODIUM CHLORIDE 0.9% 50ML 50 ML IV SCH ×3 (01:18→16:10)
[2021-04-15 05:10] LABS: BASOPHILS % 0.2 % (0.0-1.0); LYMPHOCYTES # (AUTO) 0.2 (1.0-3.2); LYMPHOCYTES % 3.1 % (18.0-39.1); MEAN CORPUSCULAR HEMOGLOBIN 48.5 pg (28-32); MEAN CORPUSCULAR HGB CONC 45.5 g/dL (31-35); MEAN CORPUSCULAR VOLUME 106.7 fL (81-99); MONOCYTES # (AUTO) 0.2 (0.2-0.8); MONOCYTES % 3.6 % (4.4-11.3); NEUTROPHILS # (AUTO) 5.7 (2.1-6.9); NEUTROPHILS % 92.3 % (38.7-80.0); RED BLOOD COUNT 1.65 x10e6/uL (4.3-5.7); RED CELL DISTRIBUTION WIDTH 18.5 % (11.7-14.4)
[2021-04-15 05:31] LABS: HEMATOCRIT 17.6 % (38.2-49.6); PLATELET COUNT 30 x10e3/uL (140-360)
[2021-04-15 05:36] LABS: ALBUMIN 2.8 g/dL (3.5-5.0); ALBUMIN/GLOBULIN RATIO 0.8 (0.8-2.0); ANION GAP 13.2 mmol/L (8-16); CALCIUM 7.9 mg/dL (8.4-10.2); CREATININE, SERUM 1.41 mg/dL (0.72-1.25); POTASSIUM 3.2 mmol/L (3.5-5.1)
[2021-04-15 08:02] LABS: ABG HCO3 31 mmol/L (22-26); ABG PCO2 47 mmHg (35-45); ABG PH 7.43 (7.35-7.45); ABG PO2 195 mmHg (80-105); ABG TCO2 33
[2021-04-15] MEDS: LACTULOSE SYRUP 20 GM/30 ML UDC PO SCH ×2 (08:03→16:10)
[2021-04-15] MEDS: POTASSIUM CHLORIDE 20 MEQ TAB CR PO SCH (08:03)
[2021-04-15] MEDS: MIDODRINE 2.5 MG TAB PO SCH ×3 (08:03→15:11)
[2021-04-15] MEDS: FUROSEMIDE INJ 10 MG/ML 4 ML VIAL IV SCH (08:03)
[2021-04-15] MEDS: CALCIUM CARBONATE 500 MG CHEWABLE TABS PO SCH ×3 (08:03→20:39)
[2021-04-15] MEDS: SPIRONOLACTONE 25 MG TAB PO SCH (09:00)
[2021-04-15 10:03] LABS: INR 2.79
[2021-04-15 10:04] LABS: PARTIAL THROMBOPLASTIN TIME 38.5 seconds (23.8-35.5)
[2021-04-15] MEDS: FENTANYL 2000MCG/NS 250 250 ML IV SCH (10:15)
[2021-04-15] MEDS ORDERED: POTASSIUM CHLORIDE 20MEQ/100ML 200 ML IV ONE (10:15)
[2021-04-15] MEDS: PROPOFOL IV EMULSION 10MG/ML 100 ML IV SCH (11:15)
[2021-04-15 11:20] LABS: BAND NEUTROPHILS % (MANUAL) 1 %; LYMPHOCYTES % (MANUAL) 2 % (19-48); MONOCYTES % (MANUAL) 8 % (3.4-9.0); NEUTROPHILS % (MANUAL) 89 % (40-74); PLATELET ESTIMATE MARKEDLY DECREASED; PLATELET MORPHOLOGY COMMENT NORMAL; RBC MORPHOLOGY COMMENT NORMAL
[2021-04-15] MEDS: DEXAMETHASONE SOD PHOS 10 MG/1 ML VIAL IV SCH (16:10)
[2021-04-15] MEDS: NOREPINEPHRINE 8 MG/D5W 250 ML 250 ML IV SCH (19:13)
[2021-04-16] VITALS (33 sets, daily range): BP systolic 107–132; BP diastolic 61–101
[2021-04-16] MEDS: PIPERACILLIN/TAZOBACTAM 2.25 GM in SODIUM CHLORIDE 0.9% 50ML 50 ML IV SCH ×3 (00:51→16:40)
[2021-04-16 05:03] LABS: BASOPHILS % 0.3 % (0.0-1.0); HEMOGLOBIN 8.2 g/dL (14.0-18.0); LYMPHOCYTES # (AUTO) 0.2 (1.0-3.2); LYMPHOCYTES % 2.1 % (18.0-39.1); MEAN CORPUSCULAR HEMOGLOBIN 52.6 pg (28-32); MEAN CORPUSCULAR HGB CONC 48.5 g/dL (31-35); MEAN CORPUSCULAR VOLUME 108.3 fL (81-99); MONOCYTES # (AUTO) 0.3 (0.2-0.8); MONOCYTES % 3.3 % (4.4-11.3); NEUTROPHILS % 93.2 % (38.7-80.0); RED BLOOD COUNT 1.56 x10e6/uL (4.3-5.7); RED CELL DISTRIBUTION WIDTH 19.2 % (11.7-14.4)
[2021-04-16 05:16] LABS: HEMATOCRIT 16.9 % (38.2-49.6); PLATELET COUNT 22 x10e3/uL (140-360)
[2021-04-16 05:42] LABS: ALBUMIN 2.6 g/dL (3.5-5.0); ALBUMIN/GLOBULIN RATIO 0.7 (0.8-2.0); ANION GAP 11.5 mmol/L (8-16); CALCIUM 7.7 mg/dL (8.4-10.2); CREATININE, SERUM 1.04 mg/dL (0.72-1.25); POTASSIUM 3.5 mmol/L (3.5-5.1)
[2021-04-16] MEDS: LORAZEPAM INJ 2 MG/ML VIAL IV PRN ×5 (08:05→16:58)
[2021-04-16] MEDS: DEXAMETHASONE SOD PHOS 10 MG/1 ML VIAL IV SCH (08:07)
[2021-04-16] MEDS: DEXTROSE 5% 1,000 ML IV SCH (08:08)
[2021-04-16 08:37] LABS: ABG HCO3 30 mmol/L (22-26); ABG PCO2 38 mmHg (35-45); ABG PO2 137 mmHg (80-105); ABG TCO2 31
[2021-04-16] MEDS: FUROSEMIDE INJ 10 MG/ML 4 ML VIAL IV SCH (09:02)
[2021-04-16] MEDS: SPIRONOLACTONE 25 MG TAB PO SCH (09:04)
[2021-04-16] MEDS: MIDODRINE 2.5 MG TAB PO SCH ×2 (09:04→16:50)
[2021-04-16] MEDS: CALCIUM CARBONATE 500 MG CHEWABLE TABS PO SCH ×3 (09:04→20:10)
[2021-04-16] MEDS: LACTULOSE SYRUP 20 GM/30 ML UDC PO SCH ×2 (09:04→16:40)
[2021-04-16] MEDS: FENTANYL 2000MCG/NS 250 250 ML IV SCH (10:15)
[2021-04-16 11:35] LABS: LYMPHOCYTES % (MANUAL) 2 % (19-48); MONOCYTES % (MANUAL) 3 % (3.4-9.0); NEUTROPHILS % (MANUAL) 95 % (40-74); PLATELET ESTIMATE MARKEDLY DECREASED
[2021-04-16 11:36] LABS: PLATELET MORPHOLOGY COMMENT NORMAL; RBC MORPHOLOGY COMMENT NORMAL
[2021-04-16] MEDS: POTASSIUM CHLORIDE 20 MEQ TAB CR PO SCH (11:54)
[2021-04-16 15:39] LABS: ABG HCO3 31 mmol/L (22-26); ABG PCO2 43 mmHg (35-45); ABG PH 7.47 (7.35-7.45); ABG PO2 91 mmHg (80-105); ABG TCO2 32
[2021-04-16] MEDS ORDERED: PROPOFOL IV EMULSION 10MG/ML 100 ML IV SCH (17:00)
[2021-04-16] MEDS ORDERED: VASOPRESSIN 60 UNIT in DEXTROSE 5% 50ML 57 ML IV PRN (17:00)
[2021-04-16] MEDS: NOREPINEPHRINE 8 MG/D5W 250 ML 250 ML IV SCH (19:15)
[2021-04-16] MEDS ORDERED: SODIUM CHLORIDE 0.9% 250ML 250 ML ONE (23:03)
[2021-04-17] VITALS (30 sets, daily range): BP systolic 102–128; BP diastolic 60–77
[2021-04-17] MEDS: PIPERACILLIN/TAZOBACTAM 2.25 GM in SODIUM CHLORIDE 0.9% 50ML 50 ML IV SCH ×3 (00:52→16:35)
[2021-04-17 05:41] LABS: ALBUMIN 2.3 g/dL (3.5-5.0); ALBUMIN/GLOBULIN RATIO 0.7 (0.8-2.0); ANION GAP 11.3 mmol/L (8-16); CALCIUM 7.9 mg/dL (8.4-10.2); CREATININE, SERUM 0.89 mg/dL (0.72-1.25); POTASSIUM 3.3 mmol/L (3.5-5.1)
[2021-04-17 08:17] LABS: ABG HCO3 32 mmol/L (22-26); ABG PCO2 37 mmHg (35-45); ABG PH 7.54 (7.35-7.45); ABG PO2 89 mmHg (80-105); ABG TCO2 33
[2021-04-17 08:35] LABS: BASOPHILS % 0.1 % (0.0-1.0); EOSINOPHILS % 0.1 % (0.0-6.0); HEMATOCRIT 22.6 % (38.2-49.6); HEMOGLOBIN 7.6 g/dL (14.0-18.0); LYMPHOCYTES # (AUTO) 0.2 (1.0-3.2); LYMPHOCYTES % 2.5 % (18.0-39.1); MEAN CORPUSCULAR HEMOGLOBIN 35.2 pg (28-32); MEAN CORPUSCULAR HGB CONC 33.6 g/dL (31-35); MEAN CORPUSCULAR VOLUME 104.6 fL (81-99); MONOCYTES # (AUTO) 0.3 (0.2-0.8); MONOCYTES % 2.8 % (4.4-11.3); NEUTROPHILS # (AUTO) 8.5 (2.1-6.9); NEUTROPHILS % 93.4 % (38.7-80.0); RED BLOOD COUNT 2.16 x10e6/uL (4.3-5.7); RED CELL DISTRIBUTION WIDTH 19.2 % (11.7-14.4)
[2021-04-17 08:38] LABS: PLATELET COUNT 39 x10e3/uL (140-360)
[2021-04-17] MEDS: MIDODRINE 2.5 MG TAB PO SCH ×3 (08:53→16:35)
[2021-04-17] MEDS: FUROSEMIDE INJ 10 MG/ML 4 ML VIAL IV SCH (08:53)
[2021-04-17] MEDS: LACTULOSE SYRUP 20 GM/30 ML UDC PO SCH ×2 (08:54→16:35)
[2021-04-17] MEDS: SPIRONOLACTONE 25 MG TAB PO SCH (08:54)
[2021-04-17] MEDS: POTASSIUM CHLORIDE 20 MEQ TAB CR PO SCH (08:54)
[2021-04-17] MEDS: FENTANYL 2000MCG/NS 250 250 ML IV SCH (10:15)
[2021-04-17] MEDS: CALCIUM CARBONATE 500 MG CHEWABLE TABS PO SCH ×3 (10:35→20:02)
[2021-04-17] MEDS: DEXTROSE 5% 1,000 ML IV SCH (11:10)
[2021-04-17] MEDS ORDERED: POTASSIUM CHLORIDE 10MEQ EA NG NR (15:15)
[2021-04-17] MEDS: DEXAMETHASONE SOD PHOS 10 MG/1 ML VIAL IV SCH (16:35)
[2021-04-17 16:38] LABS: ABG HCO3 32 mmol/L (22-26); ABG PCO2 39 mmHg (35-45); ABG PH 7.52 (7.35-7.45); ABG PO2 69 mmHg (80-105); ABG TCO2 33
[2021-04-17] MEDS: NOREPINEPHRINE 8 MG/D5W 250 ML 250 ML IV SCH (19:15)
[2021-04-17] MEDS ORDERED: SODIUM CHLORIDE 0.9% 50ML 50 ML ONE (19:45)
[2021-04-18] VITALS (27 sets, daily range): BP systolic 78–119; BP diastolic 47–72
[2021-04-18] MEDS: PIPERACILLIN/TAZOBACTAM 2.25 GM in SODIUM CHLORIDE 0.9% 50ML 50 ML IV SCH ×2 (00:35→09:45)
[2021-04-18] MEDS: DEXTROSE 5% 1,000 ML IV SCH (00:36)
[2021-04-18 05:48] LABS: BASOPHILS % 0.1 % (0.0-1.0); LYMPHOCYTES # (AUTO) 0.2 (1.0-3.2); LYMPHOCYTES % 2.1 % (18.0-39.1); MEAN CORPUSCULAR HEMOGLOBIN 43.7 pg (28-32); MEAN CORPUSCULAR VOLUME 101.6 fL (81-99); MONOCYTES # (AUTO) 0.2 (0.2-0.8); MONOCYTES % 2.2 % (4.4-11.3); NEUTROPHILS # (AUTO) 8.1 (2.1-6.9); NEUTROPHILS % 94.7 % (38.7-80.0); RED BLOOD COUNT 1.83 x10e6/uL (4.3-5.7); RED CELL DISTRIBUTION WIDTH 17.7 % (11.7-14.4)
[2021-04-18 06:01] LABS: PLATELET COUNT 27 x10e3/uL (140-360)
[2021-04-18 06:02] LABS: HEMATOCRIT 18.6 % (38.2-49.6)
[2021-04-18 06:10] LABS: ALBUMIN 2.1 g/dL (3.5-5.0); ALBUMIN/GLOBULIN RATIO 0.6 (0.8-2.0); ANION GAP 10.7 mmol/L (8-16); CALCIUM 7.5 mg/dL (8.4-10.2); CREATININE, SERUM 0.75 mg/dL (0.72-1.25); POTASSIUM 3.7 mmol/L (3.5-5.1)
[2021-04-18] MEDS: MIDODRINE 2.5 MG TAB PO SCH ×4 (08:00→22:06)
[2021-04-18 08:41] LABS: ABG HCO3 32 mmol/L (22-26); ABG PCO2 36 mmHg (35-45); ABG PH 7.56 (7.35-7.45); ABG PO2 90 mmHg (80-105); ABG TCO2 33
[2021-04-18] MEDS: LACTULOSE SYRUP 20 GM/30 ML UDC PO SCH ×2 (09:00→17:00)
[2021-04-18] MEDS: SPIRONOLACTONE 25 MG TAB PO SCH (09:00)
[2021-04-18] MEDS: CALCIUM CARBONATE 500 MG CHEWABLE TABS PO SCH ×3 (09:00→21:00)
[2021-04-18] MEDS: POTASSIUM CHLORIDE 20 MEQ TAB CR PO SCH (09:00)
[2021-04-18] MEDS: FUROSEMIDE INJ 10 MG/ML 4 ML VIAL IV SCH (09:45)
[2021-04-18] MEDS: ALBUMIN 25% 25GM 100ML 0.25 GM/ML BTL IV SCH ×2 (09:45→14:15)
[2021-04-18] MEDS ORDERED: FUROSEMIDE INJ 10 MG/ML 4 ML VIAL IV ONE (18:00)
[2021-04-18] MEDS: ENOXAPARIN SOD INJ 40 MG/0.4 ML SYR SC SCH (18:43)
[2021-04-19] VITALS (25 sets, daily range): BP systolic 84–164; BP diastolic 48–89
[2021-04-19 05:35] LABS: ALBUMIN 2.5 g/dL (3.5-5.0); ALBUMIN/GLOBULIN RATIO 0.8 (0.8-2.0); ANION GAP 12.3 mmol/L (8-16); BASOPHILS % 0.1 % (0.0-1.0); CALCIUM 8.1 mg/dL (8.4-10.2); CREATININE, SERUM 0.81 mg/dL (0.72-1.25); EOSINOPHILS # (AUTO) 0.1 (0.0-0.4); EOSINOPHILS % 0.8 % (0.0-6.0); HEMOGLOBIN 7.2 g/dL (14.0-18.0); LYMPHOCYTES # (AUTO) 0.2 (1.0-3.2); LYMPHOCYTES % 2.6 % (18.0-39.1); MEAN CORPUSCULAR HEMOGLOBIN 48.6 pg (28-32); MEAN CORPUSCULAR HGB CONC 48.6 g/dL (31-35); MONOCYTES # (AUTO) 0.3 (0.2-0.8); MONOCYTES % 3.7 % (4.4-11.3); NEUTROPHILS # (AUTO) 6.7 (2.1-6.9); POTASSIUM 3.3 mmol/L (3.5-5.1); RED BLOOD COUNT 1.48 x10e6/uL (4.3-5.7); RED CELL DISTRIBUTION WIDTH 17.8 % (11.7-14.4)
[2021-04-19 06:08] LABS: HEMATOCRIT 14.8 % (38.2-49.6); PLATELET COUNT 25 x10e3/uL (140-360)
[2021-04-19] MEDS: FUROSEMIDE INJ 10 MG/ML 4 ML VIAL IV SCH (08:16)
[2021-04-19 08:25] LABS: LYMPHOCYTES % (MANUAL) 2 % (19-48); MONOCYTES % (MANUAL) 5 % (3.4-9.0); NEUTROPHILS % (MANUAL) 93 % (40-74); NUCLEATED RED BLOOD CELLS 1
[2021-04-19 08:26] LABS: ANISOCYTOSIS MODERATE; PLATELET ESTIMATE MARKEDLY DECREASED; PLATELET MORPHOLOGY COMMENT NORMAL; RBC MORPHOLOGY COMMENT ABNORMAL
[2021-04-19 08:27] LABS: HYPOCHROMASIA SLIGHT; OVALOCYTES FEW
[2021-04-19] MEDS: POTASSIUM CHLORIDE 20 MEQ TAB CR PO SCH (09:00)
[2021-04-19] MEDS: CALCIUM CARBONATE 500 MG CHEWABLE TABS PO SCH ×3 (09:00→16:08)
[2021-04-19] MEDS: LACTULOSE SYRUP 20 GM/30 ML UDC PO SCH ×2 (09:00→16:08)
[2021-04-19] MEDS: SPIRONOLACTONE 25 MG TAB PO SCH (09:00)
[2021-04-19] MEDS ORDERED: POTASSIUM CHLORIDE 20MEQ/100ML 200 ML IV ONE (11:00)
[2021-04-19] MEDS: MIDODRINE 2.5 MG TAB PO SCH ×2 (12:00→16:00)
[2021-04-19] MEDS: ENOXAPARIN SOD INJ 40 MG/0.4 ML SYR SC SCH (16:08)
[2021-04-20] VITALS (25 sets, daily range): BP systolic 12–121; BP diastolic 50–68
[2021-04-20 05:05] LABS: BASOPHILS % 0.1 % (0.0-1.0); EOSINOPHILS # (AUTO) 0.2 (0.0-0.4); EOSINOPHILS % 2.9 % (0.0-6.0); HEMOGLOBIN 7.7 g/dL (14.0-18.0); LYMPHOCYTES # (AUTO) 0.3 (1.0-3.2); LYMPHOCYTES % 3.4 % (18.0-39.1); MEAN CORPUSCULAR HEMOGLOBIN 42.1 pg (28-32); MEAN CORPUSCULAR HGB CONC 42.1 g/dL (31-35); MONOCYTES # (AUTO) 0.3 (0.2-0.8); NEUTROPHILS # (AUTO) 7.3 (2.1-6.9); NEUTROPHILS % 88.8 % (38.7-80.0); RED BLOOD COUNT 1.83 x10e6/uL (4.3-5.7); RED CELL DISTRIBUTION WIDTH 19.6 % (11.7-14.4)
[2021-04-20 05:16] LABS: HEMATOCRIT 18.3 % (38.2-49.6); PLATELET COUNT 27 x10e3/uL (140-360)
[2021-04-20 05:52] LABS: ALBUMIN 2.6 g/dL (3.5-5.0); ALBUMIN/GLOBULIN RATIO 0.8 (0.8-2.0); ANION GAP 14.4 mmol/L (8-16); CALCIUM 8.5 mg/dL (8.4-10.2); CREATININE, SERUM 0.79 mg/dL (0.72-1.25); POTASSIUM 3.4 mmol/L (3.5-5.1)
[2021-04-20] MEDS: MIDODRINE 2.5 MG TAB PO SCH ×3 (08:00→15:22)
[2021-04-20] MEDS: FUROSEMIDE INJ 10 MG/ML 4 ML VIAL IV SCH (08:08)
[2021-04-20] MEDS: SPIRONOLACTONE 25 MG TAB PO SCH (08:25)
[2021-04-20] MEDS: LACTULOSE SYRUP 20 GM/30 ML UDC PO SCH ×2 (08:25→16:21)
[2021-04-20] MEDS: POTASSIUM CHLORIDE 20 MEQ TAB CR PO SCH (08:25)
[2021-04-20] MEDS: CALCIUM CARBONATE 500 MG CHEWABLE TABS PO SCH ×3 (08:26→21:00)
[2021-04-20] MEDS: LACTATED RINGER'S 1,000 ML IV SCH (14:16)
[2021-04-20] MEDS: PIPERACILLIN/TAZOBACTAM 2.25 GM in SODIUM CHLORIDE 0.9% 50ML 50 ML IV SCH ×2 (16:20→21:08)
[2021-04-20] MEDS: ENOXAPARIN SOD INJ 40 MG/0.4 ML SYR SC SCH (16:21)
[2021-04-21] VITALS (24 sets, daily range): BP systolic 87–113; BP diastolic 53–76
[2021-04-21 04:40] LABS: EOSINOPHILS # (AUTO) 0.3 (0.0-0.4); EOSINOPHILS % 5.5 % (0.0-6.0); LYMPHOCYTES # (AUTO) 0.3 (1.0-3.2); LYMPHOCYTES % 4.9 % (18.0-39.1); MEAN CORPUSCULAR HGB CONC 35.9 g/dL (31-35); MEAN CORPUSCULAR VOLUME 103.2 fL (81-99); MONOCYTES # (AUTO) 0.3 (0.2-0.8); MONOCYTES % 4.8 % (4.4-11.3); NEUTROPHILS # (AUTO) 4.8 (2.1-6.9); NEUTROPHILS % 84.1 % (38.7-80.0); RED BLOOD COUNT 1.89 x10e6/uL (4.3-5.7); RED CELL DISTRIBUTION WIDTH 21.3 % (11.7-14.4)
[2021-04-21 04:44] LABS: HEMATOCRIT 19.5 % (38.2-49.6); PLATELET COUNT 22 x10e3/uL (140-360)
[2021-04-21 04:57] LABS: ALBUMIN 2.5 g/dL (3.5-5.0); ALBUMIN/GLOBULIN RATIO 0.8 (0.8-2.0); ANION GAP 14.2 mmol/L (8-16); CALCIUM 8.1 mg/dL (8.4-10.2); CREATININE, SERUM 0.78 mg/dL (0.72-1.25); POTASSIUM 3.2 mmol/L (3.5-5.1)
[2021-04-21] MEDS: PIPERACILLIN/TAZOBACTAM 2.25 GM in SODIUM CHLORIDE 0.9% 50ML 50 ML IV SCH ×3 (05:39→21:26)
[2021-04-21 07:10] LABS: EOSINOPHILS % (MANUAL) 2 % (0-7); LYMPHOCYTES % (MANUAL) 1 % (19-48); MONOCYTES % (MANUAL) 3 % (3.4-9.0); NEUTROPHILS % (MANUAL) 94 % (40-74)
[2021-04-21 07:11] LABS: ANISOCYTOSIS MODERATE; PLATELET ESTIMATE MARKEDLY DECREASED; PLATELET MORPHOLOGY COMMENT NORMAL; POLYCHROMASIA FEW; RBC MORPHOLOGY COMMENT ABNORMAL
[2021-04-21] MEDS: MIDODRINE 2.5 MG TAB PO SCH ×3 (08:00→16:00)
[2021-04-21] MEDS: CALCIUM CARBONATE 500 MG CHEWABLE TABS PO SCH ×3 (09:00→21:00)
[2021-04-21] MEDS: POTASSIUM CHLORIDE 20 MEQ TAB CR PO SCH (09:00)
[2021-04-21] MEDS: SPIRONOLACTONE 25 MG TAB PO SCH (09:00)
[2021-04-21] MEDS: LACTULOSE SYRUP 20 GM/30 ML UDC PO SCH ×2 (09:00→16:29)
[2021-04-21] MEDS: FUROSEMIDE INJ 10 MG/ML 4 ML VIAL IV SCH (11:12)
[2021-04-21] MEDS: LACTATED RINGER'S 1,000 ML IV SCH (11:14)
[2021-04-21] MEDS ORDERED: POTASSIUM CHLORIDE 40 MEQ in SODIUM CHLORIDE 0.9% 250ML 250 ML IV ONE (12:00)
[2021-04-21] MEDS: ENOXAPARIN SOD INJ 40 MG/0.4 ML SYR SC SCH (17:00)
[2021-04-22] VITALS (17 sets, daily range): BP systolic 94–116; BP diastolic 55–75
[2021-04-22] MEDS: LACTATED RINGER'S 1,000 ML IV SCH (02:03)
[2021-04-22 04:46] LABS: EOSINOPHILS # (AUTO) 0.3 (0.0-0.4); EOSINOPHILS % 6.8 % (0.0-6.0); HEMOGLOBIN 7.2 g/dL (14.0-18.0); LYMPHOCYTES # (AUTO) 0.3 (1.0-3.2); MEAN CORPUSCULAR HEMOGLOBIN 37.1 pg (28-32); MEAN CORPUSCULAR HGB CONC 35.5 g/dL (31-35); MEAN CORPUSCULAR VOLUME 104.6 fL (81-99); MONOCYTES # (AUTO) 0.3 (0.2-0.8); MONOCYTES % 5.7 % (4.4-11.3); NEUTROPHILS # (AUTO) 3.8 (2.1-6.9); NEUTROPHILS % 79.9 % (38.7-80.0); RED BLOOD COUNT 1.94 x10e6/uL (4.3-5.7); RED CELL DISTRIBUTION WIDTH 22.4 % (11.7-14.4)
[2021-04-22 05:00] LABS: HEMATOCRIT 20.3 % (38.2-49.6); PLATELET COUNT 24 x10e3/uL (140-360)
[2021-04-22 05:08] LABS: ALBUMIN 2.5 g/dL (3.5-5.0); ALBUMIN/GLOBULIN RATIO 0.7 (0.8-2.0); ANION GAP 16.5 mmol/L (8-16); CALCIUM 8.3 mg/dL (8.4-10.2); CREATININE, SERUM 0.8 mg/dL (0.72-1.25); POTASSIUM 3.5 mmol/L (3.5-5.1)
[2021-04-22] MEDS: PIPERACILLIN/TAZOBACTAM 2.25 GM in SODIUM CHLORIDE 0.9% 50ML 50 ML IV SCH ×3 (05:29→21:06)
[2021-04-22] MEDS: MIDODRINE 2.5 MG TAB PO SCH ×3 (07:19→16:00)
[2021-04-22] MEDS: SPIRONOLACTONE 25 MG TAB PO SCH (07:32)
[2021-04-22] MEDS: POTASSIUM CHLORIDE 20 MEQ TAB CR PO SCH (07:33)
[2021-04-22] MEDS: LACTULOSE SYRUP 20 GM/30 ML UDC PO SCH ×2 (07:33→16:03)
[2021-04-22] MEDS: CALCIUM CARBONATE 500 MG CHEWABLE TABS PO SCH ×3 (07:33→21:06)
[2021-04-22] MEDS: FUROSEMIDE INJ 10 MG/ML 4 ML VIAL IV SCH (07:58)
[2021-04-22] MEDS ORDERED: DEXTROSE 5% 1,000 ML IV ONE (10:30)
[2021-04-22 11:16] LABS: EOSINOPHILS % (MANUAL) 5 % (0-7); LYMPHOCYTES % (MANUAL) 4 % (19-48); MONOCYTES % (MANUAL) 3 % (3.4-9.0); NEUTROPHILS % (MANUAL) 88 % (40-74)
[2021-04-22 11:17] LABS: PLATELET ESTIMATE MARKEDLY DECREASED; PLATELET MORPHOLOGY COMMENT NORMAL; RBC MORPHOLOGY COMMENT NORMAL
[2021-04-22] MEDS: ENOXAPARIN SOD INJ 40 MG/0.4 ML SYR SC SCH (16:35)
[2021-04-23] VITALS (17 sets, daily range): BP systolic 93–121; BP diastolic 51–76
[2021-04-23 04:44] LABS: EOSINOPHILS # (AUTO) 0.4 (0.0-0.4); EOSINOPHILS % 11.4 % (0.0-6.0); LYMPHOCYTES # (AUTO) 0.5 (1.0-3.2); LYMPHOCYTES % 14.2 % (18.0-39.1); MEAN CORPUSCULAR HEMOGLOBIN 39.5 pg (28-32); MEAN CORPUSCULAR VOLUME 104.1 fL (81-99); MONOCYTES # (AUTO) 0.3 (0.2-0.8); MONOCYTES % 7.8 % (4.4-11.3); NEUTROPHILS # (AUTO) 2.2 (2.1-6.9); RED BLOOD COUNT 1.72 x10e6/uL (4.3-5.7); RED CELL DISTRIBUTION WIDTH 21.9 % (11.7-14.4)
[2021-04-23 04:47] LABS: HEMATOCRIT 17.9 % (38.2-49.6); HEMOGLOBIN 6.8 g/dL (14.0-18.0); PLATELET COUNT 23 x10e3/uL (140-360)
[2021-04-23 05:02] LABS: ALBUMIN 2.2 g/dL (3.5-5.0); ALBUMIN/GLOBULIN RATIO 0.6 (0.8-2.0); CALCIUM 7.8 mg/dL (8.4-10.2); CREATININE, SERUM 0.77 mg/dL (0.72-1.25)
[2021-04-23] MEDS: PIPERACILLIN/TAZOBACTAM 2.25 GM in SODIUM CHLORIDE 0.9% 50ML 50 ML IV SCH ×3 (05:16→21:14)
[2021-04-23] MEDS ORDERED: SODIUM CHLORIDE 0.9% 250ML 250 ML IV ONE (06:15)
[2021-04-23] MEDS: CALCIUM CARBONATE 500 MG CHEWABLE TABS PO SCH ×3 (08:44→20:33)
[2021-04-23] MEDS: FUROSEMIDE INJ 10 MG/ML 4 ML VIAL IV SCH (08:44)
[2021-04-23] MEDS: POTASSIUM CHLORIDE 20 MEQ TAB CR PO SCH (08:44)
[2021-04-23] MEDS: MIDODRINE 2.5 MG TAB PO SCH ×3 (08:44→16:00)
[2021-04-23] MEDS: LACTULOSE SYRUP 20 GM/30 ML UDC PO SCH ×3 (08:44→20:33)
[2021-04-23] MEDS: SPIRONOLACTONE 25 MG TAB PO SCH (09:00)
[2021-04-23 10:43] LABS: EOSINOPHILS % (MANUAL) 14 % (0-7); LYMPHOCYTES % (MANUAL) 15 % (19-48); MONOCYTES % (MANUAL) 8 % (3.4-9.0); NEUTROPHILS % (MANUAL) 63 % (40-74)
[2021-04-23 10:44] LABS: HYPOCHROMASIA SLIG; PLATELET ESTIMATE MARKEDLY DECREASED; POLYCHROMASIA FEW; RBC MORPHOLOGY COMMENT NORMAL
[2021-04-23] MEDS ORDERED: SODIUM CHLORIDE 0.9% 250ML 250 ML ONE (10:56)
[2021-04-23 17:00] LABS: ABG PCO2 43 mmHg (35-45); ABG PH 7.48 (7.35-7.45)
[2021-04-23 17:01] LABS: ABG HCO3 32 mmol/L (22-26); ABG PO2 48 mmHg (80-105); ABG TCO2 33
[2021-04-23] MEDS: ENOXAPARIN SOD INJ 40 MG/0.4 ML SYR SC SCH (17:53)
[2021-04-24] VITALS (9 sets, daily range): BP systolic 95–137; BP diastolic 58–73
[2021-04-24] MEDS: PIPERACILLIN/TAZOBACTAM 2.25 GM in SODIUM CHLORIDE 0.9% 50ML 50 ML IV SCH ×3 (05:31→22:18)
[2021-04-24 06:27] LABS: BASOPHILS % 0.3 % (0.0-1.0); EOSINOPHILS # (AUTO) 0.2 (0.0-0.4); EOSINOPHILS % 7.8 % (0.0-6.0); HEMATOCRIT 21.2 % (38.2-49.6); LYMPHOCYTES # (AUTO) 0.5 (1.0-3.2); LYMPHOCYTES % 16.2 % (18.0-39.1); MEAN CORPUSCULAR HEMOGLOBIN 38.5 pg (28-32); MEAN CORPUSCULAR HGB CONC 37.7 g/dL (31-35); MEAN CORPUSCULAR VOLUME 101.9 fL (81-99); MONOCYTES # (AUTO) 0.3 (0.2-0.8); MONOCYTES % 10.1 % (4.4-11.3); RED BLOOD COUNT 2.08 x10e6/uL (4.3-5.7); RED CELL DISTRIBUTION WIDTH 22.1 % (11.7-14.4)
[2021-04-24 06:44] LABS: PLATELET COUNT 23 x10e3/uL (140-360)
[2021-04-24 06:46] LABS: ALBUMIN 2.1 g/dL (3.5-5.0); ALBUMIN/GLOBULIN RATIO 0.6 (0.8-2.0); ANION GAP 12.2 mmol/L (8-16); CALCIUM 7.5 mg/dL (8.4-10.2); CREATININE, SERUM 0.74 mg/dL (0.72-1.25); POTASSIUM 3.2 mmol/L (3.5-5.1)
[2021-04-24] MEDS: FUROSEMIDE INJ 10 MG/ML 4 ML VIAL IV SCH (08:57)
[2021-04-24] MEDS: MIDODRINE 2.5 MG TAB PO SCH ×3 (08:57→16:43)
[2021-04-24] MEDS: SPIRONOLACTONE 25 MG TAB PO SCH (08:58)
[2021-04-24] MEDS: POTASSIUM CHLORIDE 20 MEQ TAB CR PO SCH (08:58)
[2021-04-24] MEDS: CALCIUM CARBONATE 500 MG CHEWABLE TABS PO SCH ×3 (08:58→21:15)
[2021-04-24] MEDS ORDERED: POTASSIUM CHLORIDE 10MEQ EA PO ONE ×2 (10:15→12:15)
[2021-04-24] MEDS: METHYLPREDNISOLONE SOD SUCC 40 MG/ML VIAL 1ML IV SCH (12:15)
[2021-04-24] MEDS: LACTULOSE SYRUP 20 GM/30 ML UDC PO SCH (16:43)
[2021-04-25] VITALS (9 sets, daily range): BP systolic 93–129; BP diastolic 53–72
[2021-04-25] MEDS: PIPERACILLIN/TAZOBACTAM 2.25 GM in SODIUM CHLORIDE 0.9% 50ML 50 ML IV SCH ×3 (05:58→21:05)
[2021-04-25 06:27] LABS: BASOPHILS % 0.3 % (0.0-1.0); HEMATOCRIT 21.5 % (38.2-49.6); HEMOGLOBIN 9.2 g/dL (14.0-18.0); LYMPHOCYTES # (AUTO) 0.5 (1.0-3.2); LYMPHOCYTES % 13.7 % (18.0-39.1); MEAN CORPUSCULAR HEMOGLOBIN 42.8 pg (28-32); MEAN CORPUSCULAR HGB CONC 42.8 g/dL (31-35); MONOCYTES # (AUTO) 0.3 (0.2-0.8); MONOCYTES % 7.8 % (4.4-11.3); NEUTROPHILS % 77.2 % (38.7-80.0); RED BLOOD COUNT 2.15 x10e6/uL (4.3-5.7); RED CELL DISTRIBUTION WIDTH 21.8 % (11.7-14.4)
[2021-04-25 06:46] LABS: ALBUMIN 2.4 g/dL (3.5-5.0); ALBUMIN/GLOBULIN RATIO 0.5 (0.8-2.0); ANION GAP 17.2 mmol/L (8-16); CALCIUM 7.8 mg/dL (8.4-10.2); CREATININE, SERUM 0.89 mg/dL (0.72-1.25)
[2021-04-25 06:48] LABS: POTASSIUM 4.2 mmol/L (3.5-5.1)
[2021-04-25 06:53] LABS: PLATELET COUNT 29 x10e3/uL (140-360)
[2021-04-25] MEDS: PANTOPRAZOLE SOD 40 MG TABEC PO SCH (08:04)
[2021-04-25] MEDS: MIDODRINE 2.5 MG TAB PO SCH ×3 (08:05→16:38)
[2021-04-25] MEDS: FUROSEMIDE INJ 10 MG/ML 4 ML VIAL IV SCH (08:06)
[2021-04-25] MEDS: METHYLPREDNISOLONE SOD SUCC 40 MG/ML VIAL 1ML IV SCH (08:07)
[2021-04-25] MEDS: POTASSIUM CHLORIDE 20 MEQ TAB CR PO SCH (08:08)
[2021-04-25] MEDS: SPIRONOLACTONE 25 MG TAB PO SCH (08:09)
[2021-04-25] MEDS: LACTULOSE SYRUP 20 GM/30 ML UDC PO SCH ×2 (08:09→16:38)
[2021-04-25] MEDS: CALCIUM CARBONATE 500 MG CHEWABLE TABS PO SCH ×3 (08:09→21:05)
[2021-04-25] MEDS: FUROSEMIDE 40 MG TAB PO SCH (17:57)
[2021-04-26] VITALS (8 sets, daily range): BP systolic 80–128; BP diastolic 48–86
[2021-04-26] MEDS: FUROSEMIDE 40 MG TAB PO SCH ×2 (05:20→16:55)
[2021-04-26] MEDS: PIPERACILLIN/TAZOBACTAM 2.25 GM in SODIUM CHLORIDE 0.9% 50ML 50 ML IV SCH ×3 (05:20→21:30)
[2021-04-26 05:40] LABS: BASOPHILS % 0.2 % (0.0-1.0); EOSINOPHILS % 0.6 % (0.0-6.0); HEMOGLOBIN 8.8 g/dL (14.0-18.0); LYMPHOCYTES # (AUTO) 0.5 (1.0-3.2); LYMPHOCYTES % 11.3 % (18.0-39.1); MEAN CORPUSCULAR HEMOGLOBIN 38.9 pg (28-32); MEAN CORPUSCULAR HGB CONC 38.3 g/dL (31-35); MEAN CORPUSCULAR VOLUME 101.8 fL (81-99); MONOCYTES # (AUTO) 0.6 (0.2-0.8); NEUTROPHILS # (AUTO) 3.5 (2.1-6.9); NEUTROPHILS % 75.3 % (38.7-80.0); RED BLOOD COUNT 2.26 x10e6/uL (4.3-5.7)
[2021-04-26 05:54] LABS: PLATELET COUNT 35 x10e3/uL (140-360)
[2021-04-26 06:15] LABS: ALBUMIN 2.2 g/dL (3.5-5.0); ALBUMIN/GLOBULIN RATIO 0.5 (0.8-2.0); ANION GAP 15.1 mmol/L (8-16); CALCIUM 7.7 mg/dL (8.4-10.2); CREATININE, SERUM 0.97 mg/dL (0.72-1.25); POTASSIUM 4.1 mmol/L (3.5-5.1)
[2021-04-26 08:22] LABS: LYMPHOCYTES % (MANUAL) 5 % (19-48); MONOCYTES % (MANUAL) 13 % (3.4-9.0); NEUTROPHILS % (MANUAL) 82 % (40-74); PLATELET ESTIMATE MARKEDLY DECREASED; PLATELET MORPHOLOGY COMMENT NORMAL; RBC MORPHOLOGY COMMENT NORMAL
[2021-04-26] MEDS: LACTULOSE SYRUP 20 GM/30 ML UDC PO SCH ×2 (08:36→16:55)
[2021-04-26] MEDS: POTASSIUM CHLORIDE 20 MEQ TAB CR PO SCH (08:36)
[2021-04-26] MEDS: PANTOPRAZOLE SOD 40 MG TABEC PO SCH (08:36)
[2021-04-26] MEDS: METHYLPREDNISOLONE SOD SUCC 40 MG/ML VIAL 1ML IV SCH (08:36)
[2021-04-26] MEDS: MIDODRINE 2.5 MG TAB PO SCH ×3 (08:36→16:55)
[2021-04-26] MEDS: SPIRONOLACTONE 25 MG TAB PO SCH (08:36)
[2021-04-26] MEDS: CALCIUM CARBONATE 500 MG CHEWABLE TABS PO SCH ×3 (08:36→21:30)
[2021-04-26] MEDS ORDERED: IOPAMIDOL 370 MG/ML 200 ML INFUS..BTL INJ ONE (13:15)
[2021-04-26] MEDS ORDERED: SODIUM CHLORIDE 0.9% 50ML 50 ML ONE (13:15)
[2021-04-27] VITALS (23 sets, daily range): BP systolic 92–141; BP diastolic 51–82
[2021-04-27] MEDS: FUROSEMIDE 40 MG TAB PO SCH ×2 (06:14→17:08)
[2021-04-27] MEDS: PIPERACILLIN/TAZOBACTAM 2.25 GM in SODIUM CHLORIDE 0.9% 50ML 50 ML IV SCH ×3 (06:14→22:03)
[2021-04-27] MEDS: LACTULOSE SYRUP 20 GM/30 ML UDC PO SCH ×2 (08:09→16:53)
[2021-04-27] MEDS: POTASSIUM CHLORIDE 20 MEQ TAB CR PO SCH (08:09)
[2021-04-27] MEDS: SPIRONOLACTONE 25 MG TAB PO SCH (08:09)
[2021-04-27] MEDS: CALCIUM CARBONATE 500 MG CHEWABLE TABS PO SCH ×3 (08:09→21:45)
[2021-04-27] MEDS: MIDODRINE 2.5 MG TAB PO SCH ×3 (08:09→16:41)
[2021-04-27] MEDS: PANTOPRAZOLE SOD 40 MG TABEC PO SCH (08:09)
[2021-04-27] MEDS ORDERED: NOREPINEPHRINE 8 MG/D5W 250 ML 250 ML ONE (22:25)
[2021-04-27 22:46] LABS: ABG HCO3 26 mmol/L (22-26); ABG PCO2 36 mmHg (35-45); ABG PH 7.47 (7.35-7.45); ABG PO2 91 mmHg (80-105); ABG TCO2 27
[2021-04-28] VITALS (30 sets, daily range): BP systolic 89–114; BP diastolic 46–76
[2021-04-28] MEDS: FUROSEMIDE 40 MG TAB PO SCH ×2 (06:30→17:18)
[2021-04-28] MEDS: PIPERACILLIN/TAZOBACTAM 2.25 GM in SODIUM CHLORIDE 0.9% 50ML 50 ML IV SCH ×3 (06:30→22:00)
[2021-04-28] MEDS: MIDODRINE 2.5 MG TAB PO SCH ×3 (07:51→16:45)
[2021-04-28] MEDS: PANTOPRAZOLE SOD 40 MG TABEC PO SCH (07:51)
[2021-04-28] MEDS: POTASSIUM CHLORIDE 20 MEQ TAB CR PO SCH (09:00)
[2021-04-28] MEDS: SPIRONOLACTONE 25 MG TAB PO SCH (09:00)
[2021-04-28] MEDS: LACTULOSE SYRUP 20 GM/30 ML UDC PO SCH ×2 (09:00→16:45)
[2021-04-28] MEDS: CALCIUM CARBONATE 500 MG CHEWABLE TABS PO SCH ×3 (09:00→21:00)
[2021-04-28 09:29] LABS: BASOPHILS % 0.2 % (0.0-1.0); EOSINOPHILS # (AUTO) 0.1 (0.0-0.4); EOSINOPHILS % 2.8 % (0.0-6.0); HEMATOCRIT 29.7 % (38.2-49.6); HEMOGLOBIN 10.1 g/dL (14.0-18.0); LYMPHOCYTES # (AUTO) 0.5 (1.0-3.2); LYMPHOCYTES % 12.8 % (18.0-39.1); MEAN CORPUSCULAR HEMOGLOBIN 35.1 pg (28-32); MEAN CORPUSCULAR VOLUME 103.1 fL (81-99); MONOCYTES # (AUTO) 0.4 (0.2-0.8); MONOCYTES % 10.2 % (4.4-11.3); NEUTROPHILS # (AUTO) 3.1 (2.1-6.9); NEUTROPHILS % 73.1 % (38.7-80.0); RED BLOOD COUNT 2.88 x10e6/uL (4.3-5.7); RED CELL DISTRIBUTION WIDTH 24.2 % (11.7-14.4)
[2021-04-28 09:39] LABS: PLATELET COUNT 22 x10e3/uL (140-360)
[2021-04-28 09:55] LABS: ALBUMIN 2.5 g/dL (3.5-5.0); ALBUMIN/GLOBULIN RATIO 0.5 (0.8-2.0); ANION GAP 15.7 mmol/L (8-16); POTASSIUM 3.7 mmol/L (3.5-5.1)
[2021-04-28 10:22] LABS: CREATININE, SERUM 0.98 mg/dL (0.72-1.25)
[2021-04-28 10:28] LABS: ANISOCYTOSIS MODERATE; HYPOCHROMASIA SLIGHT; PLATELET ESTIMATE MARKEDLY DECREASED; PLATELET MORPHOLOGY COMMENT NORMAL; RBC MORPHOLOGY COMMENT ABNORMAL
[2021-04-28] MEDS ORDERED: ETOMIDATE 2 MG/ML 10 ML INJ IV ONE (13:19)
[2021-04-28] MEDS ORDERED: SUCCINYLCHOLINE CHLORIDE 20 MG/ML 10ML VIAL ONE (13:19)
[2021-04-29] VITALS (22 sets, daily range): BP systolic 89–134; BP diastolic 58–77
[2021-04-29] MEDS: PIPERACILLIN/TAZOBACTAM 2.25 GM in SODIUM CHLORIDE 0.9% 50ML 50 ML IV SCH (06:02)
[2021-04-29] MEDS: FUROSEMIDE 40 MG TAB PO SCH ×2 (06:02→17:21)
[2021-04-29] MEDS: PANTOPRAZOLE SOD 40 MG TABEC PO SCH (07:51)
[2021-04-29] MEDS: MIDODRINE 2.5 MG TAB PO SCH ×3 (07:53→16:04)
[2021-04-29] MEDS: SPIRONOLACTONE 25 MG TAB PO SCH (08:14)
[2021-04-29] MEDS: POTASSIUM CHLORIDE 20 MEQ TAB CR PO SCH (08:15)
[2021-04-29] MEDS: CALCIUM CARBONATE 500 MG CHEWABLE TABS PO SCH ×3 (08:15→21:10)
[2021-04-29] MEDS: LACTULOSE SYRUP 20 GM/30 ML UDC PO SCH ×2 (08:15→16:04)
[2021-04-30] VITALS (23 sets, daily range): BP systolic 94–114; BP diastolic 52–75
[2021-04-30 05:02] LABS: BASOPHILS % 0.3 % (0.0-1.0); EOSINOPHILS # (AUTO) 0.1 (0.0-0.4); EOSINOPHILS % 3.6 % (0.0-6.0); HEMATOCRIT 25.7 % (38.2-49.6); HEMOGLOBIN 9.1 g/dL (14.0-18.0); LYMPHOCYTES # (AUTO) 0.6 (1.0-3.2); LYMPHOCYTES % 16.6 % (18.0-39.1); MEAN CORPUSCULAR HEMOGLOBIN 36.1 pg (28-32); MEAN CORPUSCULAR HGB CONC 35.4 g/dL (31-35); MONOCYTES # (AUTO) 0.4 (0.2-0.8); MONOCYTES % 10.8 % (4.4-11.3); NEUTROPHILS # (AUTO) 2.4 (2.1-6.9); NEUTROPHILS % 67.6 % (38.7-80.0); RED BLOOD COUNT 2.52 x10e6/uL (4.3-5.7); RED CELL DISTRIBUTION WIDTH 23.9 % (11.7-14.4)
[2021-04-30 05:03] LABS: PLATELET COUNT 18 x10e3/uL (140-360)
[2021-04-30 05:30] LABS: ALBUMIN 2.2 g/dL (3.5-5.0); ALBUMIN/GLOBULIN RATIO 0.5 (0.8-2.0); ANION GAP 13.9 mmol/L (8-16); CALCIUM 8.7 mg/dL (8.4-10.2); CREATININE, SERUM 0.96 mg/dL (0.72-1.25); POTASSIUM 3.9 mmol/L (3.5-5.1)
[2021-04-30] MEDS: FUROSEMIDE 40 MG TAB PO SCH (07:06)
[2021-04-30 07:36] LABS: EOSINOPHILS % (MANUAL) 2 % (0-7); HYPOCHROMASIA MODERATE; LYMPHOCYTES % (MANUAL) 13 % (19-48); MONOCYTES % (MANUAL) 7 % (3.4-9.0); NEUTROPHILS % (MANUAL) 78 % (40-74); PLATELET ESTIMATE MARKEDLY DECREASED; PLATELET MORPHOLOGY COMMENT NORMAL; RBC MORPHOLOGY COMMENT NORMAL
[2021-04-30] MEDS: MIDODRINE 2.5 MG TAB PO SCH ×3 (07:43→16:20)
[2021-04-30] MEDS: PANTOPRAZOLE SOD 40 MG TABEC PO SCH (07:43)
[2021-04-30] MEDS: SPIRONOLACTONE 25 MG TAB PO SCH (08:26)
[2021-04-30] MEDS: LACTULOSE SYRUP 20 GM/30 ML UDC PO SCH ×2 (08:31→16:20)
[2021-04-30] MEDS: CALCIUM CARBONATE 500 MG CHEWABLE TABS PO SCH ×3 (08:31→20:41)
[2021-04-30] MEDS: POTASSIUM CHLORIDE 20 MEQ TAB CR PO SCH (08:34)
[2021-04-30] MEDS ORDERED: SODIUM CHLORIDE 0.9% 250ML 250 ML ONE (11:17)
[2021-05-01] VITALS (25 sets, daily range): BP systolic 93–124; BP diastolic 58–78
[2021-05-01 04:53] LABS: BASOPHILS % 0.3 % (0.0-1.0); EOSINOPHILS # (AUTO) 0.1 (0.0-0.4); EOSINOPHILS % 2.4 % (0.0-6.0); HEMATOCRIT 24.8 % (38.2-49.6); HEMOGLOBIN 8.6 g/dL (14.0-18.0); LYMPHOCYTES # (AUTO) 0.5 (1.0-3.2); LYMPHOCYTES % 14.8 % (18.0-39.1); MEAN CORPUSCULAR HEMOGLOBIN 37.1 pg (28-32); MEAN CORPUSCULAR HGB CONC 34.7 g/dL (31-35); MEAN CORPUSCULAR VOLUME 106.9 fL (81-99); MONOCYTES # (AUTO) 0.6 (0.2-0.8); MONOCYTES % 17.8 % (4.4-11.3); NEUTROPHILS # (AUTO) 2.1 (2.1-6.9); NEUTROPHILS % 62.9 % (38.7-80.0); RED BLOOD COUNT 2.32 x10e6/uL (4.3-5.7); RED CELL DISTRIBUTION WIDTH 24.4 % (11.7-14.4)
[2021-05-01 04:54] LABS: PLATELET COUNT 37 x10e3/uL (140-360)
[2021-05-01 05:09] LABS: ALBUMIN 2.2 g/dL (3.5-5.0); ALBUMIN/GLOBULIN RATIO 0.5 (0.8-2.0); ANION GAP 15.2 mmol/L (8-16); CALCIUM 8.7 mg/dL (8.4-10.2); CREATININE, SERUM 0.96 mg/dL (0.72-1.25); POTASSIUM 4.2 mmol/L (3.5-5.1)
[2021-05-01] MEDS: FUROSEMIDE 40 MG TAB PO SCH ×2 (06:00→17:03)
[2021-05-01] MEDS: PANTOPRAZOLE SOD 40 MG TABEC PO SCH (07:50)
[2021-05-01] MEDS: CALCIUM CARBONATE 500 MG CHEWABLE TABS PO SCH ×3 (07:51→21:08)
[2021-05-01] MEDS: MIDODRINE 2.5 MG TAB PO SCH ×2 (07:51→11:37)
[2021-05-01] MEDS: SPIRONOLACTONE 25 MG TAB PO SCH (07:51)
[2021-05-01] MEDS: POTASSIUM CHLORIDE 20 MEQ TAB CR PO SCH (07:51)
[2021-05-01] MEDS: LACTULOSE SYRUP 20 GM/30 ML UDC PO SCH ×2 (07:51→17:00)
[2021-05-01] MEDS ORDERED: HYDROCODONE/APAP 5MG-325MG TAB PO ONE (08:30)
[2021-05-01 12:58] LABS: PLATELET ESTIMATE MODERATELY DECREASED; PLATELET MORPHOLOGY COMMENT NORMAL; RBC MORPHOLOGY COMMENT NORMAL
[2021-05-01] MEDS: MIDODRINE HCL 5 MG TABLET PO SCH (17:00)
[2021-05-02] VITALS (26 sets, daily range): BP systolic 87–132; BP diastolic 53–71
[2021-05-02] MEDS: FUROSEMIDE 40 MG TAB PO SCH (05:35)
[2021-05-02 06:12] LABS: BASOPHILS % 0.3 % (0.0-1.0); EOSINOPHILS # (AUTO) 0.1 (0.0-0.4); EOSINOPHILS % 2.3 % (0.0-6.0); HEMATOCRIT 27.6 % (38.2-49.6); HEMOGLOBIN 9.1 g/dL (14.0-18.0); LYMPHOCYTES # (AUTO) 0.6 (1.0-3.2); LYMPHOCYTES % 15.6 % (18.0-39.1); MEAN CORPUSCULAR HEMOGLOBIN 34.7 pg (28-32); MEAN CORPUSCULAR VOLUME 105.3 fL (81-99); MONOCYTES # (AUTO) 0.7 (0.2-0.8); MONOCYTES % 16.9 % (4.4-11.3); NEUTROPHILS # (AUTO) 2.4 (2.1-6.9); NEUTROPHILS % 62.6 % (38.7-80.0); RED BLOOD COUNT 2.62 x10e6/uL (4.3-5.7)
[2021-05-02 06:23] LABS: PLATELET COUNT 42 x10e3/uL (140-360)
[2021-05-02 06:30] LABS: ALBUMIN 2.3 g/dL (3.5-5.0); ALBUMIN/GLOBULIN RATIO 0.4 (0.8-2.0); ANION GAP 13.9 mmol/L (8-16); CALCIUM 9.3 mg/dL (8.4-10.2); CREATININE, SERUM 1.28 mg/dL (0.72-1.25); MAGNESIUM 1.3 MG/DL (1.3-2.1); POTASSIUM 4.9 mmol/L (3.5-5.1)
[2021-05-02] MEDS: MIDODRINE HCL 5 MG TABLET PO SCH ×3 (08:16→15:11)
[2021-05-02] MEDS: PANTOPRAZOLE SOD 40 MG TABEC PO SCH (08:16)
[2021-05-02] MEDS: SPIRONOLACTONE 25 MG TAB PO SCH (08:16)
[2021-05-02] MEDS: LACTULOSE SYRUP 20 GM/30 ML UDC PO SCH ×2 (08:16→16:13)
[2021-05-02] MEDS: CALCIUM CARBONATE 500 MG CHEWABLE TABS PO SCH ×3 (08:16→21:23)
[2021-05-02] MEDS: POTASSIUM CHLORIDE 20 MEQ TAB CR PO SCH (08:17)
[2021-05-02] MEDS: ALBUMIN 25% 25GM 100ML 0.25 GM/ML BTL IV SCH ×2 (09:32→15:11)
[2021-05-02 09:48] LABS: BAND NEUTROPHILS % (MANUAL) 1 %; EOSINOPHILS % (MANUAL) 1 % (0-7); LYMPHOCYTES % (MANUAL) 5 % (19-48); MONOCYTES % (MANUAL) 7 % (3.4-9.0); NEUTROPHILS % (MANUAL) 86 % (40-74)
[2021-05-02 09:49] LABS: ANISOCYTOSIS MODERATE; HYPOCHROMASIA MODERATE; PLATELET ESTIMATE MARKEDLY DECREASED; PLATELET MORPHOLOGY COMMENT NORMAL; RBC MORPHOLOGY COMMENT ABNORMAL
[2021-05-02] MEDS: ONDANSETRON HCL INJ 2MG/ML 2ML 2 MG/ML VIAL IV PRN (19:26)
[2021-05-02] MEDS ORDERED: HYDROCODONE/APAP 5MG-325MG TAB PO ONE (21:15)
[2021-05-03] VITALS (26 sets, daily range): BP systolic 93–138; BP diastolic 54–84
[2021-05-03 06:29] LABS: BASOPHILS % 0.3 % (0.0-1.0); EOSINOPHILS # (AUTO) 0.1 (0.0-0.4); EOSINOPHILS % 2.5 % (0.0-6.0); HEMATOCRIT 23.8 % (38.2-49.6); HEMOGLOBIN 8.3 g/dL (14.0-18.0); LYMPHOCYTES # (AUTO) 0.5 (1.0-3.2); LYMPHOCYTES % 14.7 % (18.0-39.1); MEAN CORPUSCULAR HEMOGLOBIN 35.9 pg (28-32); MEAN CORPUSCULAR HGB CONC 34.9 g/dL (31-35); MONOCYTES # (AUTO) 0.6 (0.2-0.8); MONOCYTES % 18.1 % (4.4-11.3); NEUTROPHILS # (AUTO) 2.2 (2.1-6.9); NEUTROPHILS % 62.4 % (38.7-80.0); RED BLOOD COUNT 2.31 x10e6/uL (4.3-5.7); RED CELL DISTRIBUTION WIDTH 23.8 % (11.7-14.4)
[2021-05-03 06:41] LABS: PLATELET COUNT 35 x10e3/uL (140-360)
[2021-05-03 06:56] LABS: ALBUMIN 2.8 g/dL (3.5-5.0); ALBUMIN/GLOBULIN RATIO 0.6 (0.8-2.0); ANION GAP 14.3 mmol/L (8-16); CALCIUM 9.1 mg/dL (8.4-10.2); CREATININE, SERUM 1.57 mg/dL (0.72-1.25); POTASSIUM 4.3 mmol/L (3.5-5.1)
[2021-05-03] MEDS: CALCIUM CARBONATE 500 MG CHEWABLE TABS PO SCH ×3 (08:23→20:33)
[2021-05-03] MEDS: PANTOPRAZOLE SOD 40 MG TABEC PO SCH (08:23)
[2021-05-03] MEDS: SPIRONOLACTONE 25 MG TAB PO SCH (08:23)
[2021-05-03] MEDS: MIDODRINE HCL 5 MG TABLET PO SCH ×3 (08:23→16:28)
[2021-05-03] MEDS: LACTULOSE SYRUP 20 GM/30 ML UDC PO SCH ×2 (08:24→17:48)
[2021-05-03] MEDS: ONDANSETRON HCL INJ 2MG/ML 2ML 2 MG/ML VIAL IV PRN (08:41)
[2021-05-03] MEDS: POTASSIUM CHLORIDE 20 MEQ TAB CR PO SCH (09:00)
[2021-05-03 09:14] LABS: PLATELET ESTIMATE MARKEDLY DECREASED; PLATELET MORPHOLOGY COMMENT NORMAL; RBC MORPHOLOGY COMMENT NORMAL
[2021-05-03] MEDS ORDERED: ALBUMIN 25% 25GM 100ML 0.25 GM/ML BTL IV SCH (12:00)
[2021-05-03] MEDS: ALBUMIN 25% 25GM 100ML 100 ML IV SCH ×2 (12:47→17:48)
[2021-05-03] MEDS ORDERED: LACTATED RINGER'S 500 ML INJ ONE (18:15)
[2021-05-04] VITALS (25 sets, daily range): BP systolic 83–141; BP diastolic 45–84
[2021-05-04 06:26] LABS: BASOPHILS % 0.3 % (0.0-1.0); EOSINOPHILS # (AUTO) 0.1 (0.0-0.4); HEMATOCRIT 23.6 % (38.2-49.6); LYMPHOCYTES # (AUTO) 0.4 (1.0-3.2); LYMPHOCYTES % 11.9 % (18.0-39.1); MEAN CORPUSCULAR HEMOGLOBIN 35.2 pg (28-32); MEAN CORPUSCULAR HGB CONC 33.9 g/dL (31-35); MONOCYTES # (AUTO) 0.7 (0.2-0.8); MONOCYTES % 19.2 % (4.4-11.3); NEUTROPHILS # (AUTO) 2.3 (2.1-6.9); NEUTROPHILS % 64.6 % (38.7-80.0); RED BLOOD COUNT 2.27 x10e6/uL (4.3-5.7); RED CELL DISTRIBUTION WIDTH 23.3 % (11.7-14.4)
[2021-05-04 06:28] LABS: PLATELET COUNT 29 x10e3/uL (140-360)
[2021-05-04 06:44] LABS: ALBUMIN 3.2 g/dL (3.5-5.0); ALBUMIN/GLOBULIN RATIO 0.8 (0.8-2.0); ANION GAP 16.1 mmol/L (8-16); CALCIUM 9.9 mg/dL (8.4-10.2); CREATININE, SERUM 1.36 mg/dL (0.72-1.25); POTASSIUM 4.1 mmol/L (3.5-5.1)
[2021-05-04] MEDS ORDERED: LACTULOSE SYRUP 20 GM/30 ML UDC PO PRN (07:45)
[2021-05-04] MEDS: MIDODRINE HCL 5 MG TABLET PO SCH ×3 (08:00→16:02)
[2021-05-04] MEDS: PANTOPRAZOLE SOD 40 MG TABEC PO SCH (08:19)
[2021-05-04 08:30] LABS: EOSINOPHILS % (MANUAL) 1 % (0-7); LYMPHOCYTES % (MANUAL) 11 % (19-48); MONOCYTES % (MANUAL) 14 % (3.4-9.0); NEUTROPHILS % (MANUAL) 72 % (40-74)
[2021-05-04 08:31] LABS: ANISOCYTOSIS MARKED; HYPOCHROMASIA MODERATE; PLATELET ESTIMATE MARKEDLY DECREASED; PLATELET MORPHOLOGY COMMENT NORMAL; RBC MORPHOLOGY COMMENT ABNORMAL
[2021-05-04] MEDS: LACTULOSE SYRUP 20 GM/30 ML UDC PO SCH ×2 (09:00→16:02)
[2021-05-04] MEDS: CALCIUM CARBONATE 500 MG CHEWABLE TABS PO SCH ×3 (09:00→21:19)
[2021-05-04] MEDS: ONDANSETRON HCL INJ 2MG/ML 2ML 2 MG/ML VIAL IV PRN ×2 (11:15→23:00)
[2021-05-04] MEDS ORDERED: LACTATED RINGER'S 1,000 ML ONE (17:43)
[2021-05-04] MEDS ORDERED: LACTATED RINGER'S 1,000 ML INJ ONE (17:45)
[2021-05-05] VITALS (25 sets, daily range): BP systolic 104–145; BP diastolic 60–91
[2021-05-05 05:05] LABS: BASOPHILS % 0.2 % (0.0-1.0); EOSINOPHILS # (AUTO) 0.1 (0.0-0.4); EOSINOPHILS % 2.5 % (0.0-6.0); HEMATOCRIT 23.8 % (38.2-49.6); LYMPHOCYTES # (AUTO) 0.6 (1.0-3.2); LYMPHOCYTES % 13.5 % (18.0-39.1); MEAN CORPUSCULAR HGB CONC 33.6 g/dL (31-35); MEAN CORPUSCULAR VOLUME 101.3 fL (81-99); MONOCYTES # (AUTO) 0.9 (0.2-0.8); MONOCYTES % 20.5 % (4.4-11.3); NEUTROPHILS # (AUTO) 2.7 (2.1-6.9); NEUTROPHILS % 61.9 % (38.7-80.0); RED BLOOD COUNT 2.35 x10e6/uL (4.3-5.7); RED CELL DISTRIBUTION WIDTH 23.1 % (11.7-14.4)
[2021-05-05 05:09] LABS: PLATELET COUNT 31 x10e3/uL (140-360)
[2021-05-05 05:46] LABS: ALBUMIN 3.1 g/dL (3.5-5.0); ALBUMIN/GLOBULIN RATIO 0.7 (0.8-2.0); ANION GAP 14.1 mmol/L (8-16); CALCIUM 9.7 mg/dL (8.4-10.2); CREATININE, SERUM 1.14 mg/dL (0.72-1.25); POTASSIUM 4.1 mmol/L (3.5-5.1)
[2021-05-05] MEDS: MIDODRINE HCL 5 MG TABLET PO SCH ×3 (08:16→15:16)
[2021-05-05] MEDS: PANTOPRAZOLE SOD 40 MG TABEC PO SCH (08:16)
[2021-05-05] MEDS: LACTULOSE SYRUP 20 GM/30 ML UDC PO SCH ×2 (08:17→16:10)
[2021-05-05] MEDS: CALCIUM CARBONATE 500 MG CHEWABLE TABS PO SCH ×3 (08:17→20:53)
[2021-05-05] MEDS ORDERED: FUROSEMIDE INJ 10 MG/ML 4 ML VIAL IV ONE (16:30)
[2021-05-06] VITALS (25 sets, daily range): BP systolic 99–153; BP diastolic 41–98
[2021-05-06 05:24] LABS: ANION GAP 16.3 mmol/L (8-16); CALCIUM 9.4 mg/dL (8.4-10.2); CREATININE, SERUM 1.36 mg/dL (0.72-1.25); POTASSIUM 4.3 mmol/L (3.5-5.1)
[2021-05-06] MEDS: CALCIUM CARBONATE 500 MG CHEWABLE TABS PO SCH ×3 (08:08→21:00)
[2021-05-06] MEDS: MIDODRINE HCL 5 MG TABLET PO SCH ×3 (08:08→15:09)
[2021-05-06] MEDS: PANTOPRAZOLE SOD 40 MG TABEC PO SCH (08:08)
[2021-05-06] MEDS: LACTULOSE SYRUP 20 GM/30 ML UDC PO SCH ×3 (08:12→16:03)
[2021-05-06] MEDS ORDERED: SODIUM CHLORIDE 0.9% 1000ML 1,000 ML IV ONE (09:15)
[2021-05-07] VITALS (18 sets, daily range): BP systolic 96–117; BP diastolic 59–78
[2021-05-07 05:08] LABS: BASOPHILS % 0.6 % (0.0-1.0); EOSINOPHILS # (AUTO) 0.1 (0.0-0.4); EOSINOPHILS % 1.4 % (0.0-6.0); HEMATOCRIT 24.4 % (38.2-49.6); HEMOGLOBIN 8.2 g/dL (14.0-18.0); LYMPHOCYTES # (AUTO) 0.7 (1.0-3.2); LYMPHOCYTES % 14.6 % (18.0-39.1); MEAN CORPUSCULAR HEMOGLOBIN 35.5 pg (28-32); MEAN CORPUSCULAR HGB CONC 33.6 g/dL (31-35); MEAN CORPUSCULAR VOLUME 105.6 fL (81-99); MONOCYTES # (AUTO) 0.8 (0.2-0.8); MONOCYTES % 15.2 % (4.4-11.3); NEUTROPHILS # (AUTO) 3.4 (2.1-6.9); RED BLOOD COUNT 2.31 x10e6/uL (4.3-5.7); RED CELL DISTRIBUTION WIDTH 23.3 % (11.7-14.4)
[2021-05-07 05:36] LABS: PLATELET COUNT 43 x10e3/uL (140-360)
[2021-05-07 05:43] LABS: ALBUMIN 2.7 g/dL (3.5-5.0); ALBUMIN/GLOBULIN RATIO 0.6 (0.8-2.0); CALCIUM 8.7 mg/dL (8.4-10.2); CREATININE, SERUM 1.16 mg/dL (0.72-1.25)
[2021-05-07] MEDS: PANTOPRAZOLE SOD 40 MG TABEC PO SCH (07:30)
[2021-05-07] MEDS: CALCIUM CARBONATE 500 MG CHEWABLE TABS PO SCH ×3 (07:45→20:22)
[2021-05-07] MEDS: MIDODRINE HCL 5 MG TABLET PO SCH ×3 (07:45→17:00)
[2021-05-07] MEDS: LACTULOSE SYRUP 20 GM/30 ML UDC PO SCH ×5 (07:45→18:23)
[2021-05-08] VITALS (8 sets, daily range): BP systolic 98–133; BP diastolic 61–71
[2021-05-08 05:41] LABS: BASOPHILS % 0.2 % (0.0-1.0); EOSINOPHILS # (AUTO) 0.1 (0.0-0.4); EOSINOPHILS % 1.3 % (0.0-6.0); HEMOGLOBIN 7.7 g/dL (14.0-18.0); LYMPHOCYTES # (AUTO) 0.6 (1.0-3.2); LYMPHOCYTES % 13.8 % (18.0-39.1); MEAN CORPUSCULAR HEMOGLOBIN 35.5 pg (28-32); MEAN CORPUSCULAR HGB CONC 33.5 g/dL (31-35); MONOCYTES # (AUTO) 0.6 (0.2-0.8); MONOCYTES % 13.8 % (4.4-11.3); NEUTROPHILS # (AUTO) 3.2 (2.1-6.9); NEUTROPHILS % 69.6 % (38.7-80.0); RED BLOOD COUNT 2.17 x10e6/uL (4.3-5.7); RED CELL DISTRIBUTION WIDTH 22.6 % (11.7-14.4)
[2021-05-08 06:03] LABS: ALBUMIN 2.5 g/dL (3.5-5.0); ALBUMIN/GLOBULIN RATIO 0.6 (0.8-2.0); ANION GAP 13.8 mmol/L (8-16); CALCIUM 7.9 mg/dL (8.4-10.2); POTASSIUM 3.8 mmol/L (3.5-5.1)
[2021-05-08 06:16] LABS: PLATELET COUNT 43 x10e3/uL (140-360)
[2021-05-08] MEDS: PANTOPRAZOLE SOD 40 MG TABEC PO SCH (07:30)
[2021-05-08] MEDS: MIDODRINE HCL 5 MG TABLET PO SCH ×4 (09:00→16:00)
[2021-05-08] MEDS: LACTULOSE SYRUP 20 GM/30 ML UDC PO SCH ×4 (09:00→16:17)
[2021-05-08] MEDS: CALCIUM CARBONATE 500 MG CHEWABLE TABS PO SCH ×3 (10:01→20:15)
[2021-05-08 10:45] LABS: EOSINOPHILS % (MANUAL) 2 % (0-7); LYMPHOCYTES % (MANUAL) 15 % (19-48); MONOCYTES % (MANUAL) 9 % (3.4-9.0); MYELOCYTES % (MANUAL) 1 % (0-0); NEUTROPHILS % (MANUAL) 72 % (40-74)
[2021-05-08 10:46] LABS: PLATELET ESTIMATE MODERATELY DECREASED; PLATELET MORPHOLOGY COMMENT NORMAL; RBC MORPHOLOGY COMMENT NORMAL
[2021-05-08] MEDS: ACETAMINOPHEN 325 MG TAB PO PRN (14:10)
[2021-05-08] MEDS: DEXTROSE 5%/0.9% SOD CHL 1,000 ML IV SCH (14:10)
[2021-05-09] VITALS (9 sets, daily range): BP systolic 101–125; BP diastolic 55–81
[2021-05-09] MEDS: DEXTROSE 5%/0.9% SOD CHL 1,000 ML IV SCH ×2 (02:39→16:53)
[2021-05-09] MEDS: PANTOPRAZOLE SOD 40 MG TABEC PO SCH (07:30)
[2021-05-09] MEDS: LACTULOSE SYRUP 20 GM/30 ML UDC PO SCH ×4 (07:45→16:54)
[2021-05-09] MEDS: CALCIUM CARBONATE 500 MG CHEWABLE TABS PO SCH ×2 (07:46→14:06)
[2021-05-09] MEDS: MIDODRINE HCL 5 MG TABLET PO SCH ×3 (08:00→15:28)
[2021-05-10] VITALS (7 sets, daily range): BP systolic 107–129; BP diastolic 68–88
[2021-05-10] MEDS: DEXTROSE 5%/0.9% SOD CHL 1,000 ML IV SCH ×2 (04:44→18:29)
[2021-05-10 05:10] LABS: BASOPHILS % 0.4 % (0.0-1.0); EOSINOPHILS % 0.4 % (0.0-6.0); HEMOGLOBIN 8.6 g/dL (14.0-18.0); LYMPHOCYTES # (AUTO) 0.8 (1.0-3.2); LYMPHOCYTES % 15.4 % (18.0-39.1); MEAN CORPUSCULAR HGB CONC 33.1 g/dL (31-35); MEAN CORPUSCULAR VOLUME 108.8 fL (81-99); MONOCYTES # (AUTO) 0.7 (0.2-0.8); NEUTROPHILS # (AUTO) 3.3 (2.1-6.9); NEUTROPHILS % 66.8 % (38.7-80.0); RED BLOOD COUNT 2.39 x10e6/uL (4.3-5.7); RED CELL DISTRIBUTION WIDTH 22.5 % (11.7-14.4)
[2021-05-10 05:11] LABS: INR 1.95; PROTHROMBIN TIME 23.8 seconds (11.9-14.5)
[2021-05-10 05:28] LABS: ALBUMIN 2.4 g/dL (3.5-5.0); ALBUMIN/GLOBULIN RATIO 0.5 (0.8-2.0); ANION GAP 10.8 mmol/L (8-16); CALCIUM 8.1 mg/dL (8.4-10.2); CREATININE, SERUM 0.79 mg/dL (0.72-1.25); POTASSIUM 3.8 mmol/L (3.5-5.1)
[2021-05-10 05:53] LABS: PLATELET COUNT 40 x10e3/uL (140-360)
[2021-05-10] MEDS: PANTOPRAZOLE SOD 40 MG TABEC PO SCH (07:30)
[2021-05-10] MEDS: MIDODRINE HCL 5 MG TABLET PO SCH ×3 (08:00→16:00)
[2021-05-10] MEDS: LACTULOSE SYRUP 20 GM/30 ML UDC PO SCH ×4 (08:06→17:00)
[2021-05-10 08:17] LABS: BAND NEUTROPHILS % (MANUAL) 2 %; EOSINOPHILS % (MANUAL) 1 % (0-7); LYMPHOCYTES % (MANUAL) 8 % (19-48); MONOCYTES % (MANUAL) 10 % (3.4-9.0); NEUTROPHILS % (MANUAL) 78 % (40-74)
[2021-05-10 08:18] LABS: PLATELET ESTIMATE MARKEDLY DECREASED; PLATELET MORPHOLOGY COMMENT NORMAL; RBC MORPHOLOGY COMMENT NORMAL
[2021-05-10] MEDS ORDERED: PHYTONADIONE 10 MG/ML AMP SC ONE (16:30)
[2021-05-10] MEDS ORDERED: IBUPROFEN 800MG/ 200ML 200 ML IV PRN (19:15)
[2021-05-10] MEDS ORDERED: Vancomycin IV 1 GM in SODIUM CHLORIDE 0.9% 250ML 250 ML IV ONE (20:00)
[2021-05-10] MEDS: MEROPENEM 1 GM in SODIUM CHLORIDE 0.9% 100 ML IV SCH (20:41)
[2021-05-11] VITALS (78 sets, daily range): BP systolic 68–148; BP diastolic 42–130
[2021-05-11] MEDS: MEROPENEM 1 GM in SODIUM CHLORIDE 0.9% 100 ML IV SCH ×3 (02:31→17:13)
[2021-05-11 05:56] LABS: BASOPHILS % 0.2 % (0.0-1.0); EOSINOPHILS % 0.2 % (0.0-6.0); HEMATOCRIT 22.3 % (38.2-49.6); HEMOGLOBIN 7.4 g/dL (14.0-18.0); LYMPHOCYTES # (AUTO) 0.5 (1.0-3.2); MEAN CORPUSCULAR HGB CONC 33.2 g/dL (31-35); MEAN CORPUSCULAR VOLUME 111.5 fL (81-99); MONOCYTES # (AUTO) 0.8 (0.2-0.8); MONOCYTES % 9.1 % (4.4-11.3); NEUTROPHILS # (AUTO) 7.6 (2.1-6.9); NEUTROPHILS % 83.7 % (38.7-80.0); RED CELL DISTRIBUTION WIDTH 22.7 % (11.7-14.4)
[2021-05-11 06:02] LABS: PLATELET COUNT 48 x10e3/uL (140-360)
[2021-05-11 06:22] LABS: ANION GAP 9.7 mmol/L (8-16); CALCIUM 7.6 mg/dL (8.4-10.2); CREATININE, SERUM 0.96 mg/dL (0.72-1.25); POTASSIUM 3.7 mmol/L (3.5-5.1)
[2021-05-11] MEDS: PANTOPRAZOLE SOD 40 MG TABEC PO SCH (07:30)
[2021-05-11] MEDS: MIDODRINE HCL 5 MG TABLET PO SCH ×3 (07:47→16:00)
[2021-05-11] MEDS: LACTULOSE SYRUP 20 GM/30 ML UDC PO SCH ×4 (07:47→16:52)
[2021-05-11] MEDS: NOREPINEPHRINE 8 MG/D5W 250 ML 250 ML IV SCH (08:15)
[2021-05-11] MEDS ORDERED: ALBUMIN 25% 25GM 100ML 0.25 GM/ML BTL IV NR (08:15)
[2021-05-11 08:29] LABS: INR 1.89; PROTHROMBIN TIME 23.2 seconds (11.9-14.5)
[2021-05-11 08:38] LABS: BAND NEUTROPHILS % (MANUAL) 5 %; LYMPHOCYTES % (MANUAL) 2 % (19-48); METAMYELOCYTES % (MANUAL) 1 % (0-0); MONOCYTES % (MANUAL) 7 % (3.4-9.0); NEUTROPHILS % (MANUAL) 85 % (40-74); PLATELET ESTIMATE MODERATELY DECREASED; PLATELET MORPHOLOGY COMMENT NORMAL; RBC MORPHOLOGY COMMENT NORMAL
[2021-05-11] MEDS: DEXMEDETOMIDINE 400MCG/NS100ML 100 ML IV PRN (13:53)
[2021-05-11 14:53] LABS: ABG HCO3 17 mmol/L (22-26); ABG PCO2 28 mmHg (35-45); ABG PH 7.39 (7.35-7.45); ABG PO2 53 mmHg (80-105); ABG TCO2 18
[2021-05-11] MEDS ORDERED: PROPOFOL IV EMULSION 10MG/ML 100 ML IV PRN (15:45)
[2021-05-11] MEDS ORDERED: PROPOFOL IV EMULSION 10MG/ML 100 ML ONE (16:01)
[2021-05-11] MEDS ORDERED: ALBUTEROL SULF 0.083% NEB SOLN 3 ML NEB ONE (16:06)
[2021-05-11 16:36] LABS: ABG HCO3 19 mmol/L (22-26); ABG PCO2 33 mmHg (35-45); ABG PH 7.36 (7.35-7.45); ABG PO2 133 mmHg (80-105); ABG TCO2 20
[2021-05-11] MEDS: PROPOFOL IV EMULSION 10MG/ML 100 ML IV SCH (16:51)
[2021-05-11] MEDS ORDERED: MIDAZOLAM HCL 2 MG/2 ML VIAL ONE (17:53)
[2021-05-11] MEDS ORDERED: WATER STERILE 10 ML VIAL ONE (17:53)
[2021-05-11] MEDS ORDERED: SUCCINYLCHOLINE CHLORIDE 20 MG/ML 10ML VIAL ONE (17:53)
[2021-05-11] MEDS ORDERED: VECURONIUM BROMIDE FOR INJ 20 MG VIAL ONE (17:53)
[2021-05-11] MEDS ORDERED: ETOMIDATE 2 MG/ML 10 ML INJ IV ONE (17:53)
[2021-05-11] MEDS ORDERED: CENTRAL TPN FORMULA 1 BAG IV SCH (20:00)
[2021-05-12] VITALS (55 sets, daily range): BP systolic 75–143; BP diastolic 36–86
[2021-05-12] MEDS: PROPOFOL IV EMULSION 10MG/ML 100 ML IV SCH ×3 (00:10→18:26)
[2021-05-12] MEDS: MEROPENEM 1 GM in SODIUM CHLORIDE 0.9% 100 ML IV SCH ×3 (01:44→17:32)
[2021-05-12] MEDS: ACETAMINOPHEN 325 MG TAB PO PRN (03:39)
[2021-05-12 06:52] LABS: BASOPHILS % 0.2 % (0.0-1.0); EOSINOPHILS # (AUTO) 0.2 (0.0-0.4); EOSINOPHILS % 1.7 % (0.0-6.0); HEMATOCRIT 23.3 % (38.2-49.6); HEMOGLOBIN 7.6 g/dL (14.0-18.0); LYMPHOCYTES % 9.7 % (18.0-39.1); MEAN CORPUSCULAR HEMOGLOBIN 35.2 pg (28-32); MEAN CORPUSCULAR HGB CONC 32.6 g/dL (31-35); MEAN CORPUSCULAR VOLUME 107.9 fL (81-99); MONOCYTES # (AUTO) 0.9 (0.2-0.8); NEUTROPHILS # (AUTO) 8.2 (2.1-6.9); NEUTROPHILS % 78.3 % (38.7-80.0); RED BLOOD COUNT 2.16 x10e6/uL (4.3-5.7); RED CELL DISTRIBUTION WIDTH 21.6 % (11.7-14.4)
[2021-05-12 07:00] LABS: PLATELET COUNT 35 x10e3/uL (140-360)
[2021-05-12 07:14] LABS: ALBUMIN 2.4 g/dL (3.5-5.0); ALBUMIN/GLOBULIN RATIO 0.6 (0.8-2.0); ANION GAP 11.7 mmol/L (8-16); CALCIUM 8.1 mg/dL (8.4-10.2); CREATININE, SERUM 1.47 mg/dL (0.72-1.25); POTASSIUM 3.7 mmol/L (3.5-5.1)
[2021-05-12] MEDS: NOREPINEPHRINE 8 MG/D5W 250 ML 250 ML IV SCH ×3 (08:15→22:16)
[2021-05-12 08:23] LABS: BAND NEUTROPHILS % (MANUAL) 2 %; LYMPHOCYTES % (MANUAL) 8 % (19-48); MONOCYTES % (MANUAL) 5 % (3.4-9.0); NEUTROPHILS % (MANUAL) 84 % (40-74)
[2021-05-12 08:24] LABS: PLATELET ESTIMATE MARKEDLY DECREASED; PLATELET MORPHOLOGY COMMENT NORMAL; RBC MORPHOLOGY COMMENT ABNORMAL
[2021-05-12] MEDS: MIDODRINE HCL 5 MG TABLET PO SCH ×3 (08:52→16:10)
[2021-05-12] MEDS: LACTULOSE SYRUP 20 GM/30 ML UDC PO SCH ×4 (08:53→14:05)
[2021-05-12 09:10] LABS: ABG HCO3 20 mmol/L (22-26); ABG PCO2 32 mmHg (35-45); ABG PH 7.39 (7.35-7.45); ABG PO2 92 mmHg (80-105); ABG TCO2 21
[2021-05-12 14:21] LABS: ABG PCO2 42 mmHg (35-45); ABG PH 7.28 (7.35-7.45); ABG PO2 51 mmHg (80-105)
[2021-05-12 14:22] LABS: ABG HCO3 20 mmol/L (22-26); ABG TCO2 21
[2021-05-12] MEDS ORDERED: SODIUM CHLORIDE 0.9% 1000ML 1,000 ML IV SCH (16:30)
[2021-05-12] MEDS: DEXMEDETOMIDINE 400MCG/NS100ML 100 ML IV PRN (20:15)
[2021-05-12] MEDS: Clindamycin INJ 600 MG 600 MG in SODIUM CHLORIDE 0.9% 50ML 50 ML IV SCH (23:15)
[2021-05-13] VITALS (38 sets, daily range): BP systolic 88–133; BP diastolic 43–81
[2021-05-13] MEDS: PROPOFOL IV EMULSION 10MG/ML 100 ML IV SCH ×2 (04:24→20:21)
[2021-05-13 04:52] LABS: BASOPHILS # (AUTO) 0.1 (0.0-0.1); BASOPHILS % 0.3 % (0.0-1.0); EOSINOPHILS # (AUTO) 0.3 (0.0-0.4); EOSINOPHILS % 1.3 % (0.0-6.0); HEMATOCRIT 26.3 % (38.2-49.6); HEMOGLOBIN 8.5 g/dL (14.0-18.0); LYMPHOCYTES # (AUTO) 1.4 (1.0-3.2); LYMPHOCYTES % 7.1 % (18.0-39.1); MEAN CORPUSCULAR HEMOGLOBIN 35.4 pg (28-32); MEAN CORPUSCULAR HGB CONC 32.3 g/dL (31-35); MEAN CORPUSCULAR VOLUME 109.6 fL (81-99); MONOCYTES # (AUTO) 1.6 (0.2-0.8); MONOCYTES % 7.9 % (4.4-11.3); NEUTROPHILS # (AUTO) 16.1 (2.1-6.9); RED CELL DISTRIBUTION WIDTH 21.7 % (11.7-14.4)
[2021-05-13 05:02] LABS: PLATELET COUNT 42 x10e3/uL (140-360)
[2021-05-13 05:13] LABS: ALBUMIN 2.3 g/dL (3.5-5.0); ALBUMIN/GLOBULIN RATIO 0.5 (0.8-2.0); ANION GAP 16.2 mmol/L (8-16); CALCIUM 8.4 mg/dL (8.4-10.2); CREATININE, SERUM 2.67 mg/dL (0.72-1.25); POTASSIUM 4.2 mmol/L (3.5-5.1)
[2021-05-13] MEDS: Clindamycin INJ 600 MG 600 MG in SODIUM CHLORIDE 0.9% 50ML 50 ML IV SCH ×3 (06:06→22:22)
[2021-05-13] MEDS: NOREPINEPHRINE 8 MG/D5W 250 ML 250 ML IV SCH (06:16)
[2021-05-13 07:44] LABS: BAND NEUTROPHILS % (MANUAL) 3 %; EOSINOPHILS % (MANUAL) 1 % (0-7); LYMPHOCYTES % (MANUAL) 7 % (19-48); MONOCYTES % (MANUAL) 11 % (3.4-9.0); NEUTROPHILS % (MANUAL) 78 % (40-74); PLATELET ESTIMATE MODERATELY DECREASED; PLATELET MORPHOLOGY COMMENT NORMAL
[2021-05-13 07:45] LABS: RBC MORPHOLOGY COMMENT NORMAL
[2021-05-13] MEDS: MIDODRINE HCL 5 MG TABLET PO SCH ×3 (08:06→17:48)
[2021-05-13] MEDS: FENTANYL 2000MCG/NS 250 250 ML IV SCH (08:30)
[2021-05-13 08:34] LABS: ABG HCO3 17 mmol/L (22-26); ABG PCO2 33 mmHg (35-45); ABG PH 7.32 (7.35-7.45); ABG PO2 70 mmHg (80-105); ABG TCO2 18
[2021-05-13] MEDS ORDERED: ALBUMIN 25% 25GM 100ML 0.25 GM/ML BTL IV SCH (08:45)
[2021-05-13] MEDS ORDERED: SODIUM BICARBONATE 8.4% 50 ML in SODIUM CHLORIDE 0.45% 1,000 ML IV ONE (09:00)
[2021-05-13] MEDS: LACTULOSE SYRUP 20 GM/30 ML UDC PO SCH ×4 (09:00→17:49)
[2021-05-13] MEDS: ALBUMIN 25% 25GM 100ML 100 ML IV SCH ×2 (09:16→17:49)
[2021-05-13] MEDS: FUROSEMIDE INJ 100 MG in SODIUM CHLORIDE 0.9% 90 ML IV SCH ×2 (09:19→20:20)
[2021-05-13] MEDS ORDERED: SODIUM BICARBONATE 8.4% INJ 50 ML SYR IV ONE (11:45)
[2021-05-13] MEDS ORDERED: BISACODYL 10 MG SUPP PR ONE (13:15)
[2021-05-13] MEDS ORDERED: LORAZEPAM INJ 2 MG/ML VIAL IV ONE (15:15)
[2021-05-13] MEDS ORDERED: SODIUM CHLORIDE 0.9% 1000ML 1,000 ML ONE (15:56)
[2021-05-14] VITALS (78 sets, daily range): BP systolic 79–129; BP diastolic 35–89
[2021-05-14] MEDS: DEXMEDETOMIDINE 400MCG/NS100ML 100 ML IV PRN (00:07)
[2021-05-14] MEDS: ALBUMIN 25% 25GM 100ML 100 ML IV SCH (01:00)
[2021-05-14] MEDS: Clindamycin INJ 600 MG 600 MG in SODIUM CHLORIDE 0.9% 50ML 50 ML IV SCH ×3 (05:14→22:44)
[2021-05-14] MEDS: PROPOFOL IV EMULSION 10MG/ML 100 ML IV SCH (05:15)
[2021-05-14 05:32] LABS: BASOPHILS # (AUTO) 0.1 (0.0-0.1); BASOPHILS % 0.4 % (0.0-1.0); EOSINOPHILS # (AUTO) 0.6 (0.0-0.4); EOSINOPHILS % 5.1 % (0.0-6.0); HEMATOCRIT 22.2 % (38.2-49.6); LYMPHOCYTES # (AUTO) 1.9 (1.0-3.2); LYMPHOCYTES % 14.7 % (18.0-39.1); MEAN CORPUSCULAR HEMOGLOBIN 34.5 pg (28-32); MEAN CORPUSCULAR HGB CONC 31.5 g/dL (31-35); MEAN CORPUSCULAR VOLUME 109.4 fL (81-99); MONOCYTES % 7.7 % (4.4-11.3); NEUTROPHILS # (AUTO) 8.7 (2.1-6.9); NEUTROPHILS % 69.3 % (38.7-80.0); RED BLOOD COUNT 2.03 x10e6/uL (4.3-5.7); RED CELL DISTRIBUTION WIDTH 21.6 % (11.7-14.4)
[2021-05-14] MEDS: NOREPINEPHRINE 8 MG/D5W 250 ML 250 ML IV SCH (05:40)
[2021-05-14 05:48] LABS: PLATELET COUNT 41 x10e3/uL (140-360)
[2021-05-14 06:34] LABS: ALBUMIN 2.9 g/dL (3.5-5.0); ALBUMIN/GLOBULIN RATIO 0.8 (0.8-2.0); ANION GAP 13.6 mmol/L (8-16); CALCIUM 8.8 mg/dL (8.4-10.2); CREATININE, SERUM 2.87 mg/dL (0.72-1.25); POTASSIUM 3.6 mmol/L (3.5-5.1)
[2021-05-14] MEDS: LACTULOSE SYRUP 20 GM/30 ML UDC PO SCH ×4 (08:00→16:14)
[2021-05-14] MEDS: FUROSEMIDE INJ 100 MG in SODIUM CHLORIDE 0.9% 90 ML IV SCH ×2 (08:00→17:44)
[2021-05-14] MEDS: MIDODRINE HCL 5 MG TABLET PO SCH ×3 (08:00→15:04)
[2021-05-14] MEDS ORDERED: SODIUM CHLORIDE 0.9% 250ML 250 ML IV ONE (08:15)
[2021-05-14 08:46] LABS: BAND NEUTROPHILS % (MANUAL) 1 %; EOSINOPHILS % (MANUAL) 5 % (0-7); LYMPHOCYTES % (MANUAL) 10 % (19-48); MONOCYTES % (MANUAL) 9 % (3.4-9.0); NEUTROPHILS % (MANUAL) 75 % (40-74); PLATELET ESTIMATE MODERATELY DECREASED; PLATELET MORPHOLOGY COMMENT NORMAL; RBC MORPHOLOGY COMMENT NORMAL
[2021-05-14 08:47] LABS: ABG PCO2 45 mmHg (35-45); ABG PH 7.31 (7.35-7.45); ABG PO2 63 mmHg (80-105)
[2021-05-14 08:48] LABS: ABG HCO3 22 mmol/L (22-26); ABG TCO2 23
[2021-05-15] VITALS (58 sets, daily range): BP systolic 84–119; BP diastolic 37–67
[2021-05-15] MEDS: NOREPINEPHRINE 8 MG/D5W 250 ML 250 ML IV SCH ×3 (01:34→21:00)
[2021-05-15] MEDS: PROPOFOL IV EMULSION 10MG/ML 100 ML IV SCH ×2 (01:36→05:06)
[2021-05-15] MEDS: FUROSEMIDE INJ 100 MG in SODIUM CHLORIDE 0.9% 90 ML IV SCH ×2 (05:04→15:10)
[2021-05-15] MEDS: Clindamycin INJ 600 MG 600 MG in SODIUM CHLORIDE 0.9% 50ML 50 ML IV SCH ×3 (05:04→22:00)
[2021-05-15] MEDS: DEXMEDETOMIDINE 400MCG/NS100ML 100 ML IV PRN (05:06)
[2021-05-15 05:08] LABS: BASOPHILS # (AUTO) 0.1 (0.0-0.1); BASOPHILS % 0.5 % (0.0-1.0); EOSINOPHILS # (AUTO) 0.8 (0.0-0.4); EOSINOPHILS % 5.5 % (0.0-6.0); HEMATOCRIT 23.4 % (38.2-49.6); HEMOGLOBIN 7.3 g/dL (14.0-18.0); LYMPHOCYTES # (AUTO) 2.5 (1.0-3.2); LYMPHOCYTES % 16.2 % (18.0-39.1); MEAN CORPUSCULAR HEMOGLOBIN 34.9 pg (28-32); MEAN CORPUSCULAR HGB CONC 31.2 g/dL (31-35); MONOCYTES # (AUTO) 1.6 (0.2-0.8); MONOCYTES % 10.3 % (4.4-11.3); NEUTROPHILS # (AUTO) 9.2 (2.1-6.9); NEUTROPHILS % 60.8 % (38.7-80.0); RED BLOOD COUNT 2.09 x10e6/uL (4.3-5.7); RED CELL DISTRIBUTION WIDTH 21.6 % (11.7-14.4)
[2021-05-15 05:33] LABS: ALBUMIN 2.5 g/dL (3.5-5.0); ALBUMIN/GLOBULIN RATIO 0.6 (0.8-2.0); CALCIUM 8.6 mg/dL (8.4-10.2); CREATININE, SERUM 2.71 mg/dL (0.72-1.25)
[2021-05-15 05:38] LABS: PLATELET COUNT 35 x10e3/uL (140-360)
[2021-05-15] MEDS: MIDODRINE HCL 5 MG TABLET PO SCH ×3 (08:07→15:10)
[2021-05-15] MEDS: LACTULOSE SYRUP 20 GM/30 ML UDC PO SCH ×4 (08:07→16:13)
[2021-05-15 08:21] LABS: EOSINOPHILS % (MANUAL) 7 % (0-7); LYMPHOCYTES % (MANUAL) 26 % (19-48); METAMYELOCYTES % (MANUAL) 1 % (0-0); MONOCYTES % (MANUAL) 12 % (3.4-9.0); MYELOCYTES % (MANUAL) 2 % (0-0); NEUTROPHILS % (MANUAL) 52 % (40-74); NUCLEATED RED BLOOD CELLS 3; PLATELET ESTIMATE MARKEDLY DECREASED; PLATELET MORPHOLOGY COMMENT NORMAL; RBC MORPHOLOGY COMMENT ABNORMAL
[2021-05-15 08:22] LABS: ANISOCYTOSIS SLIGHT
[2021-05-15 09:14] LABS: ABG HCO3 24 mmol/L (22-26); ABG PCO2 67 mmHg (35-45); ABG PH 7.16 (7.35-7.45); ABG PO2 80 mmHg (80-105); ABG TCO2 26
[2021-05-15 14:59] LABS: ABG HCO3 24 mmol/L (22-26); ABG PCO2 77 mmHg (35-45); ABG PO2 99 mmHg (80-105); ABG TCO2 26
[2021-05-16] VITALS (33 sets, daily range): BP systolic 54–111; BP diastolic 28–56
[2021-05-16] MEDS: NOREPINEPHRINE 8 MG/D5W 250 ML 250 ML IV SCH ×2 (00:25→04:20)
[2021-05-16] MEDS: FENTANYL 2000MCG/NS 250 250 ML IV SCH (05:10)
[2021-05-16 05:29] LABS: BASOPHILS # (AUTO) 0.1 (0.0-0.1); BASOPHILS % 0.4 % (0.0-1.0); EOSINOPHILS # (AUTO) 0.5 (0.0-0.4); EOSINOPHILS % 2.7 % (0.0-6.0); HEMATOCRIT 22.9 % (38.2-49.6); LYMPHOCYTES % 10.1 % (18.0-39.1); MEAN CORPUSCULAR HGB CONC 30.6 g/dL (31-35); MEAN CORPUSCULAR VOLUME 114.5 fL (81-99); MONOCYTES # (AUTO) 1.8 (0.2-0.8); MONOCYTES % 8.8 % (4.4-11.3); NEUTROPHILS # (AUTO) 13.5 (2.1-6.9); NEUTROPHILS % 67.9 % (38.7-80.0); RED CELL DISTRIBUTION WIDTH 21.5 % (11.7-14.4)
[2021-05-16 05:34] LABS: PLATELET COUNT 41 x10e3/uL (140-360)
[2021-05-16 05:49] LABS: ALBUMIN 2.4 g/dL (3.5-5.0); ALBUMIN/GLOBULIN RATIO 0.6 (0.8-2.0); ANION GAP 16.1 mmol/L (8-16); CALCIUM 7.3 mg/dL (8.4-10.2); CREATININE, SERUM 3.2 mg/dL (0.72-1.25); POTASSIUM 5.1 mmol/L (3.5-5.1)
[2021-05-16] MEDS: Clindamycin INJ 600 MG 600 MG in SODIUM CHLORIDE 0.9% 50ML 50 ML IV SCH (05:53)
[2021-05-16] MEDS: MIDODRINE HCL 5 MG TABLET PO SCH ×2 (07:56→11:32)
[2021-05-16] MEDS: LACTULOSE SYRUP 20 GM/30 ML UDC PO SCH ×2 (07:57)
[2021-05-16 08:59] LABS: ABG PCO2 98 mmHg (35-45); ABG PH 6.96 (7.35-7.45); ABG PO2 65 mmHg (80-105)
[2021-05-16 09:00] LABS: ABG HCO3 22 mmol/L (22-26); ABG TCO2 25
[2021-05-16] MEDS ORDERED: SODIUM BICARBONATE 8.4% INJ 50 ML SYR IV NR (09:35)
[2021-05-16] MEDS ORDERED: SODIUM BICARBONATE 8.4% SYRING 100 ML ONE (09:43)
== END 2021-05-16 14:35 | disposition hospice, inpatient (51) | DRG 207 ==
LOC: ER 14:05 → ERHOLD 15:44 → ICU 20:00 → COVIDICU 04-16 12:12 → IMCU 04-22 08:26 → ICU 04-27 22:41 → IMCU 05-07 15:45 → ICU 05-11 03:35
PROC: 02HV33Z Insertion of Infusion Device into Superior Vena Cava, Percutaneous Approach (ICD-10-PCS; 2021-04-08)
PROC: 5A0935A Assistance with Respiratory Ventilation, Less than 24 Consecutive Hours, High Flow/Velocity Cannula (ICD-10-PCS; 2021-04-08)
PROC: 30243R1 Transfusion of Nonautologous Platelets into Central Vein, Percutaneous Approach (ICD-10-PCS; 2021-04-09)
PROC: 02HV33Z Insertion of Infusion Device into Superior Vena Cava, Percutaneous Approach (ICD-10-PCS; 2021-04-10)
PROC: 5A1955Z Respiratory Ventilation, Greater than 96 Consecutive Hours (ICD-10-PCS; principal; 2021-04-11)
PROC: 0BH18EZ Insertion of Endotracheal Airway into Trachea, Via Natural or Artificial Opening Endoscopic (ICD-10-PCS; 2021-04-11)
PROC: 30243K1 Transfusion of Nonautologous Frozen Plasma into Central Vein, Percutaneous Approach (ICD-10-PCS; 2021-04-14)
PROC: 3E043XZ Introduction of Vasopressor into Central Vein, Percutaneous Approach (ICD-10-PCS; 2021-04-16)
PROC: 30243N1 Transfusion of Nonautologous Red Blood Cells into Central Vein, Percutaneous Approach (ICD-10-PCS; 2021-04-23)
PROC: 02HV33Z Insertion of Infusion Device into Superior Vena Cava, Percutaneous Approach (ICD-10-PCS; 2021-05-04)
PROC: 02HV33Z Insertion of Infusion Device into Superior Vena Cava, Percutaneous Approach (ICD-10-PCS; 2021-05-11)
PROC: 0BH17EZ Insertion of Endotracheal Airway into Trachea, Via Natural or Artificial Opening (ICD-10-PCS; 2021-05-11)
PROC: 5A1955Z Respiratory Ventilation, Greater than 96 Consecutive Hours (ICD-10-PCS; 2021-05-11)
PROC: 03HB33Z Insertion of Infusion Device into Right Radial Artery, Percutaneous Approach (ICD-10-PCS; 2021-05-13)
DX: U07.1 COVID-19 (principal); N17.0 Acute kidney failure with tubular necrosis; J12.82 Pneumonia due to coronavirus disease 2019; J80 Acute respiratory distress syndrome; G93.41 Metabolic encephalopathy; J15.211 Pneumonia due to Methicillin susceptible Staphylococcus aureus; A41.89 Other specified sepsis; R65.21 Severe sepsis with septic shock; J69.0 Pneumonitis due to inhalation of food and vomit; D68.4 Acquired coagulation factor deficiency; E87.0 Hyperosmolality and hypernatremia; K92.2 Gastrointestinal hemorrhage, unspecified; E87.4 Mixed disorder of acid-base balance; I13.0 Hypertensive heart and chronic kidney disease with heart failure and stage 1 through stage 4 chronic kidney disease, or unspecified chronic kidney disease; F10.21 Alcohol dependence, in remission; D69.59 Other secondary thrombocytopenia; I49.3 Ventricular premature depolarization; T46.0X5A Adverse effect of cardiac-stimulant glycosides and drugs of similar action, initial encounter; N18.9 Chronic kidney disease, unspecified; E87.6 Hypokalemia; E83.51 Hypocalcemia; K70.31 Alcoholic cirrhosis of liver with ascites; K70.40 Alcoholic hepatic failure without coma; G62.9 Polyneuropathy, unspecified; I27.20 Pulmonary hypertension, unspecified; I50.9 Heart failure, unspecified; Z66 Do not resuscitate; R13.12 Dysphagia, oropharyngeal phase
CPT/HCPCS: 36415; 36569; 36600; 70450; 71045; 71250; 71260; 74018; 74176; 74230; 76705; 80048; 80053; 81001; 82140; 82805; 82948; 83605; 83735; 83880; 85025; 85379; 85610; 85730; 86141; 86850; 86900; 86920; 87040; 87070; 87086; 87186; 87205; 93005; 93306; 94003; 94799; 96361; 96365; 96366; 97139; 99251; 99285; J0330; J0461; J0610; J0692; J1100; J1650; J1940; J2060; J2185; J2250; J2353; J2405; J2543; J2920; J3370; J3430; J3480; J7030; J7042; J7050; J7070; J7121; P9016; P9017; P9034; P9047; Q9967; U0002